=== PATIENT | female | born 1945 | race Caucasian/White ===

== ENCOUNTER 2023-03-21 17:52 | Emergency (ER) | payer MEDICARE, OTHER, SELFPAY ==
[2023-03-21 17:53] VITALS: BP 203/77; PULSE 97; RESP 18; TEMP 36.5; O2SAT 98; BMI 21.8
[2023-03-21 19:24] VITALS: BP 175/64; PULSE 73; RESP 15; O2SAT 98
[2023-03-21] MEDS: cloNIDine HCl 0.1 MG Tablet PO (19:59)
[2023-03-21 20:00] VITALS: BP 202/68; PULSE 85; RESP 15; O2SAT 98
[2023-03-21 20:41] VITALS: BP 191/70; PULSE 73; RESP 15; O2SAT 97
--- NOTE | 2023-03-21 21:39 | EX.ED.DYSGE1 ---
HPI History of Present Illness Chief Complaint: Hypertension Narrative Narrative: 77-year-old female with elevated blood pressure. She states that she noted this incidentally. She does not have a headache, blurred vision, slurred speech. She denies chest pain, palpitations, shortness of breath. She states that she feels well. Patient takes amlodipine 10 mg p.o. daily, hydrochlorothiazide 12.5 mg daily, lisinopril 40 mg daily. There is been no changes. She called the nurses line for her primary care physician who told her to double the hydrochlorothiazide to 25 mg. Patient was post to wait an hour and if her pressure did not get an any improvement she is to come to the ER. [facility] Medical History HTN (hypertension) Home Medications amlodipine 10 mg tablet 10 mg PO DAILY 03/21/23 [History Last Taken Unknown] hydrochlorothiazide 12.5 mg capsule 12.5 mg PO DAILY 03/21/23 [History Last Taken Unknown] lisinopril 40 mg tablet 40 mg PO DAILY 03/21/23 [History Last Taken Unknown] lisinopril 40 mg tablet 80 mg PO DAILY #30 tabs 03/21/23 [Rx Last Taken Unknown] Allergy/AdvReac Type Severity Reaction Status Date / Time No Known Allergies Allergy Verified 03/21/23 17:55 Social History Smoking Status: Never smoker [facility] ED Constitutional Constitutional ED: Denies chills, fever(s) or sweats Eyes Eyes: Denies blurry vision or change in vision ENT ENT ED: Denies ear pain or sore throat Cardiovascular Cardiovascular: Denies chest pain, palpitations or racing heartbeat Respiratory/Chest Respiratory/Chest: Denies cough, dyspnea or sputum Gastrointestinal Gastrointestinal: Denies abdominal pain, constipation, diarrhea, nausea or vomiting Genitourinary Genitourinary ED: Denies dysuria, hematuria or urinary frequency Musculoskeletal Musculoskeletal: Denies arthralgias, myalgias or neck pain Integumentary Denies abscess, Abrasions or rash Neurologic Neurologic: Denies headache(s), paresthesias or weakness Psychiatric Psychiatric: Denies anxiety, depression, suicidal ideation or suicidal thoughts Endocrine Endocrinology: Denies polydipsia or polyuria EXAM Physical Exam Const Vital Signs: 03/21/23 17:53 03/21/23 19:24 03/21/23 20:00 Temperature 97.7 F L Temperature Source Temporal Pulse Rate 97 73 85 Respiratory Rate 18 15 15 Blood Pressure 203/77 H 175/64 H 202/68 H Blood Pressure Mean 119 101 112 Pulse Ox 98 98 98 Oxygen Delivery Method Room Air Room Air Room Air 03/21/23 20:41 Temperature Temperature Source Pulse Rate 73 Respiratory Rate 15 Blood Pressure 191/70 H Blood Pressure Mean 110 Pulse Ox 97 Oxygen Delivery Method Room Air General Appearance ED: Negative for pallor HEENT Reports normocephalic and head/scalp atraumatic Eyes PERRL and EOMs intact bilaterally Neck no lymphadenopathy and supple Chest Wall inspection of chest normal and palpation of chest normal Resp normal respiratory effort Auscultation: Negative for rales, rhonchi or wheezes Cardio regular rate and regular rhythm Narrative: Deferred Extremity normal to inspection General Extremety ED: Negative for edema or tenderness General Extremity: Negative for edema Neuro oriented x3 and CN's II-XII intact bilaterally Sensorium / Orientation: alert Motor Exam: strength 5/5 throughout Psych mental status grossly normal Attitude: No agitated Skin no rashes or lesions noted and no wounds General Skin Exam: Negative for jaundice or pallor MDM MDM MDM Narrative Medical decision making narrative: Patient presenting with asymptomatic hypertension. She was given clonidine 0.1 mg. Her blood pressure went from 203/77 down to 161/65. At this point I feel she stable to go. I believe she needs any blood work or imaging but she is still asymptomatic. I will have her double her lisinopril. She is to keep a diary of her blood pressures. Follow-up with her PCP. Return precautions discussed. Impression: 1. Hypertension Discharge Plan Triage Chief Complaint: Hypertension ED Provider: Rashaad Benites Dx/Rx/DC Orders Instructions: ED Hypertension, Established Prescriptions: New lisinopril 40 mg tablet 80 mg PO DAILY Qty: 30 0RF No Action amlodipine 10 mg Tablet 10 mg PO DAILY hydrochlorothiazide 12.5 mg Capsule 12.5 mg PO DAILY lisinopril 40 mg Tablet 40 mg PO DAILY Primary Care Provider: Loyd Luque Referrals: Loyd Luque MD [Primary Care Provider] - Disposition Disposition: Home, Self Care
[2023-03-21 21:42] VITALS: BP 161/65; PULSE 72; RESP 15; O2SAT 96
[2023-03-21 21:46] VITALS: BP 161/65; PULSE 72; RESP 15
== END 2023-03-21 21:46 | disposition home or self-care (01) ==
PROVIDERS: Emergency Provider Student in an Organized Health Care Education/Training Program; PCP Family Medicine; Visit Provider Student in an Organized Health Care Education/Training Program
DX: I10 Essential (primary) hypertension (principal); Z79.899 Other long term (current) drug therapy
CPT/HCPCS: 99283

== ENCOUNTER → 2024-05-20 | Outpatient (CLI) | payer MEDICARE, OTHER, SELFPAY ==
--- NOTE | 2024-05-20 07:41 | RDU_ITS ---
Reason For Study: HTN Right Renal Artery Left Renal Artery Right renal artery ostium Left renal artery ostium 160.0/18.4 567.5/111.7 RSV/EDV. PSV/EDV. Right renal artery proximal Left renal artery proximal PSV/EDV 605.8/95.8 PSV/EDV. 128.4/24.5 . Right renal artery mid 81.8/13.6 Left renal artery mid 128.4/20.8 PSV/EDV. PSV/EDV . Right renal artery distal Left renal artery distal 119.5/18.6 156.7/18.4 PSV/EDV. PSV/EDV. Right RAR 7.14. Left RAR 1.90. Right Renal Parenchyma Left Renal Parenchyma Upper Pole Medula 20.3/3.8 PSV/EDV. Left upper pole medulla 69.5/12.8 Right upper pole medulla EDR 0.20 . PSV/EDV . Right upper pole medulla R.I. Left upper pole medulla EDR 0.20 . 0.82 . Left upper pole medulla R.I. 0.82 . Upper [place] Cortx 14.2/3.8 PSV/EDV. UP Cortex 30.0/5.5 PSV/EDV. Right upper pole cortex EDR 0.30 . Left upper pole cortex EDR 0.20 . Right upper pole cortex R.I. 0.74 . Left upper pole cortex R.I. 0.82 . Right lower Pole medulla 33.3/4.7 Left lower Pole medulla 42.3/8.5 PSV/EDV . PSV/EDV . Right lower pole medulla EDR 0.10 . Left lower pole medulla EDR 0.20 . Right lower pole medulla R.I. Left lower pole medulla R.I. 0.80 . 0.86 . Lower Pole Cortx 18.4/4.2 PSV/EDV. Lower Pole Cortex 18.5/5.8 PSV/EDV. Left lower pole cortex EDR 0.20 . Right lower pole cortex EDR 0.30 . Left lower pole cortex R.I. 0.77 . Right lower pole cortex R.I. 0.68 . Left Renal Hilar Right Renal Hilar LT Hilar avg 127.3/17.4 PSV/EDV . Right Hilar avg 64.4/9.5 PSV/EDV. Left hilar acceleration time 40 Right hilar acceleration time 40 m/sec. m/sec. Left Renal Dimensions Right Renal Dimensions Left kidney size 9.50 cm . Right kidney size 8.14 cm . Left cortical dimension 1.3 cm . Right cortical dimension 1.29 cm . Aorta Proximal abdominal aorta 1.42 cm . Proximal abdominal aorta peak systolic velocity is 84.8 cm/sec . Distal abdominal aorta 1.12 cm . Distal abdominal aorta peak systolic velocity is 288.5 cm/sec . VL/Renal Artery Duplex Ultrasound Interpretation Summary Right renal artery patent with > 60% stenosis. Left renal artery patent with normal velocities and no evidence of stenosis. Right renal vein patent. Left renal vein patent. Right kidney diminshed in size. Left kidney normal in size. Ordering Physician: Nora Govea Referring Physician: Nora Govea Performed By: Jasson Stephenson RVT and Student
== END | disposition home or self-care (01) ==
LOC: CVS 07:38
PROVIDERS: PCP Family Medicine; Referring Provider Internal Medicine Nephrology; Visit Provider Internal Medicine Nephrology
DX: I10 Essential (primary) hypertension (principal)
CPT/HCPCS: 93975

== ENCOUNTER 2024-10-07 06:57 | Day surgery (SDC) | payer MEDICARE, OTHER, SELFPAY ==
[2024-10-06 07:49] VITALS: BMI 21.6
[2024-10-07 07:19] LABS: Hematocrit 35.6 % (37-47); Hemoglobin 11.8 g/dL (12.0-15.0); Mean Corp Hgb Conc 33.1 g/dL (32-36); Mean Corpuscular Hgb 29.7 pg (27.0-32.0); Mean Corpuscular Volume 89.7 fL (81-99); Platelet Count 273 K/mm3 (150-450); RBC Distribution Width CV 14.5 % (11.6-14.6); RBC Distribution Width SD 47.9 fl (35.1-43.9); Red Blood Count 3.97 M/mm3 (4.2-5.4); White Blood Count 11.5 K/mm3 (4.4-11.0)
--- NOTE | 2024-10-07 07:53 | HP.PCM_ITS ---
HPI - General HPI Narrative ALVARADO COHEN, is a 79 F who presents with worsening hypertension on multiple medications. She had a duplex that revealed right renal artery stenosis. [facility] Medical History Renal artery stenosis HTN (hypertension) Home Medications ?Medication ?Instructions ?Recorded ?Last Taken ?Type amlodipine 10 mg tablet 10 mg PO DAILY 03/21/23 10/07/24 History calcium carbonate (Calcium 600) 1,200 mg PO QDAY 08/27/24 Unknown History chlorthalidone 25 mg tablet 25 mg PO QDAY 08/27/24 Unknown History metoprolol succinate 50 mg 50 mg PO BID 08/27/24 10/07/24 History tablet,extended release 24 hr multivitamin (Daily Multi-Vitamin 1 tab PO QAM 08/27/24 Unknown History tablet) hydralazine 25 mg tablet 25 mg PO BID high blood pressure 10/06/24 Unknown History lisinopril 30 mg tablet 30 mg PO BID High blood pressure 10/06/24 10/07/24 History Allergy/AdvReac Type Severity Reaction Status Date / Time No Known Allergies Allergy Verified 08/27/24 13:16 Family History Other Asthma Cancer Hypertension Surgical History H/O cone biopsy of cervix (~1977) Social History Smoking Status: Heavy Smoker (>10/day) Tobacco: How many years used: 40 quit status: considering quitting ROS Constitutional Constitutional: Denies chills, fever(s), frequent falls, lethargy or weakness Eyes Eyes: Denies blind spots, change in vision or loss of vision ENT HEENT: Denies bleeding gums, hoarseness or sore throat Cardiovascular Cardiovascular: Denies abdominal pain, bluish discoloration of hand/feet, chest pain with activity, claudication, cold extremities, cyanosis, dyspnea on exertion, erythema on extremities, irregular heart rhythm, leg edema, leg ulcers, numbness in extremities or weakness in extremities Respiratory/Chest Respiratory/Chest: Denies cough, excessive phlegm production, shortness of breath at rest, shortness of breath with exertion or wheezing Gastrointestinal Gastrointestinal: Denies anorexia, change in stool character, constipation, diarrhea, melena or rectal bleeding Genitourinary Genitourinary: Denies dysuria or hematuria Musculoskeletal Musculoskeletal: Denies abnormal gait Integumentary Integumentary: Reports other Details: ; Denies erythema, non-healing lesions or wounds Neurologic Neurologic: Denies abnormal speech, focal weakness, headache(s), loss of vision, numbness, paresthesias or sensory deficit Hematologic/Lymphatic Hematologic/Lymphatic: Denies easy bleeding, easy bruising or lymphadenopathy Vital Signs Vital Signs Vital Signs: Weight Weight: 122 lb Body Mass Index (BMI) 21.6 Physical Exam Const alert, oriented x3, no apparent distress and healthy appearing General Appearance: cooperative; Negative for combative or lethargic Orientation / Consciousness: awake Exam Limitations: no limitations HEENT Head and Scalp: normocephalic and atraumatic Eyes EOMs intact bilaterally General Eye: normal appearance of both eyes Neck full ROM and no lymphadenopathy Resp normal respiratory effort and no use of accessory muscles Effort and Inspection: Negative for labored, stridor or audible wheezes Cardio regular rate and regular rhythm Back/Spine Cervical Spine: cervical ROM normal Extremity full ROM, normal capillary refill and no clubbing, cyanosis or edema Skin no rashes or lesions noted and no wounds Neuro oriented x3, CN's II-XII intact bilaterally, no focal motor deficits and no sensory deficits noted Psych thought process normal, cooperative, affect normal, speech normal and activity/motor behavior normal Results Lab / Micro Data 10/07/24 07:06 10/07/24 07:06 Labs: Laboratory Results - last 24 hr 10/07/24 07:06: WBC 11.5 H, RBC 3.97 L, Hgb 11.8 L, Hct 35.6 L, MCV 89.7, MCH 29.7, MCHC 33.1, RDW Std Deviation 47.9 H, RDW Coeff of Cathleen 14.5, Plt Count 273, MPV 9.0 Assessment & Plan Assessment/Plan (1) Renal artery stenosis: PLAN: -angiogram possible stent
[2024-10-07 07:54] LABS: Anion Gap 5 (5-15); BUN 27 mg/dL (7-18); BUN/Creat Ratio 23.9 RATIO (10-20); Calcium,Total 9.3 mg/dL (8.5-10.1); Chloride 106 mmol/L (98-107); Creatinine, Serum 1.13 mg/dL (0.55-1.02); EST Glomerular Filtration Rate 50 mL/min (>60); Est Glom Filt Rate - Afr Amer 60 mL/min (>60); Estimated Creatinine Clearance 33.94 ml/min; Glucose 104 mg/dL (74-106); Potassium 4.2 mmol/L (3.5-5.1); Sodium Level 136 mmol/L (136-145)
[2024-10-07 13:12] LABS: ACT Activated Clotting Time 204 sec (74-137)
--- NOTE | 2024-10-07 16:31 | OP.PCM_ITS ---
Operative Report (Standard) Operative Information Surgery/Procedure Performed: Aortogram, selective left renal angiogram Surgeon: Porfirio Mei Date of Procedure: 10/07/24 Procedure Start Time: 08:15 Procedure Stop Time: 10:15 Pre-Operative Diagnosis: Refractory hypertension Right renal artery stenosis Post-Operative Diagnosis: Same Right pelvic kidney with dual arterial supply; greater than 70% stenosis of the superior vessel Select all DRAINS/GRAFTS/IMPLANTS that apply: None Type of Anesthesia: Local and Sedation,Conscious Estimated Blood Loss: 15 Specimen collected: No Description of surgery: HPI: Patient is a 79-year-old female with hypertension refractory to multiple medications with increasing medication and dose requirements. She had a arterial duplex which revealed greater than 60% stenosis of the right renal artery. She presents now for angiography with possible intervention. Description of procedure: Upon obtaining form consent and verification correct patient procedure site patient was taken to the Entry Level Drafter where she was positioned prepped and draped in usual sterile fashion. Timeout was performed consultation administered Versed and fentanyl. Skin overlying the right common femoral artery was anesthetized 1% lidocaine the vessel accessed under ultrasound guidance with a micropuncture needle wire. This was then exchanged for micropuncture sheath routine injection iliofemoral angiograms performed feeling satisfactory positioning with no extravasation or dissection. Through the micropuncture sheath a Bentson wire was advanced and the micropuncture sheath exchanged for a short 5 Wallisian sheath. Through the 5 Wallisian sheath we attempted to navigate into the abdominal aorta however he met resistance in the mid common iliac artery. Hand-injection angiography revealed highly calcified stenosis of the mid common iliac artery. A KMP catheter was advanced over the Bentson wire and the Bentson wire exchanged for a glide advantage wire which was able to successfully navigate the iliac lesion and into the abdominal aorta. There appeared to be significant calcification in the visceral segment aorta which also produced significant obstruction to wire advancement. The KMP catheter was then exchanged for an Omni Flush catheter which was advanced into the abdominal aorta and a digital subtraction aortogram was performed. This revealed bulky dense calcification of the suprarenal aorta creating approxima tely 75% stenosis as well as dense calcified atherosclerosis surrounding the origin of the right renal arteries with significant plaque protrusion into the aortic lumen. This also revealed the right kidney was located in the pelvis with a significant downward angle and revealed a dual arterial supply with the majority of the kidney supplied by the more inferior vessel which had no significant atherosclerosis. The superior aspect of the kidney was supplied by the superior vessel which had the significant atherosclerosis at its origin. Contrast transit through this vessel was significantly delayed compared to the more inferior vessel and it appeared as if this portion of the kidney was smaller in overall volume than that fed by the inferior vessel. The Omni Flush catheter also advanced into the left renal artery and selective imaging revealed mild stenosis at the origin less than 50%. Given the downward trajectory of the right renal artery was felt that femoral access would not be feasible to track or intervention efforts even if able to cannulate so the left radial artery was accessed with a micropuncture needle wire which was then exchanged for a slender sheath. Patient was then heparinized to circulate 3 minutes after which the glide advantage wire was advanced via the left radial access traversing into the arch of the aorta. From this position using a pigtail catheter and the glide advantage wire we would navigate into the descending thoracic aorta advancing our wire and catheter down to the visceral segment. 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 This was focused mainly on the right side of aorta and deflected our equipment towards the left making approach to the right renal artery even more difficult. It was felt that this was at least with an effort so the pigtail catheter and short sheath were then exchanged for a 6 Wallisian Halo sheath which was advanced over the wire and positioned in the visceral segment of the aorta. Using a multitude of wire and catheter combinations we made efforts to engage and cannulate the right renal artery ostia. Due to the significant calcification and protrusion into the aortic lumen we were unable to successfully cannulate this vessel. After exhausting her efforts and further efforts from the femoral access we felt that any more aggressive attempts would potentially result in vessel injury so efforts were ceased. A 5 Wallisian minx was then deployed and manual pressure held for 5 minutes at the right femoral access site. A TR band was then placed at the left radial access site and the sheath withdrawn. The patient taken recovery area for bedrest prior to discharge to home. Surgical Findings: See above Coordinator Of Placement telecommunications switch technician: No Complications Complications: No
== END 2024-10-07 13:00 | disposition home or self-care (01) ==
PROVIDERS: Physician Assistant; PCP Family Medicine; Referring Provider Surgery Trauma Surgery; Visit Provider Surgery Trauma Surgery
DX: I70.1 Atherosclerosis of renal artery (principal); I10 Essential (primary) hypertension; F17.210 Nicotine dependence, cigarettes, uncomplicated
CPT/HCPCS: 36251; 36415; 76937; 80048; 85027; 85347; 86850; 86900; 86901; 99152; 99153; C1760; C1769; C1894; Q9967; C1887

== ENCOUNTER 2025-05-29 12:48 | Inpatient (IN) | payer MEDICARE, OTHER, SELFPAY ==
[2025-05-29] VITALS (17 sets, daily range): BP systolic 169–203; BP diastolic 54–76; PULSE 64–75; RESP 12–22; TEMP 36.1–36.6; O2SAT 95–99; BMI 21.7; BMI 22.0
--- NOTE | 2025-05-29 12:59 | EDS_ITS ---
HPI History of Present Illness Chief Complaint: General Illness [facility] Medical History Renal artery stenosis HTN (hypertension) Home Medications ?Medication ?Instructions ?Recorded ?Last Taken ?Type amlodipine 10 mg tablet 10 mg PO DAILY 03/21/23 07/04/28 History chlorthalidone 25 mg tablet 25 mg PO QDAY 08/27/24 History metoprolol succinate 50 mg 50 mg PO BID 08/27/2405/29 History tablet,extended release 24 hr hydralazine 25 mg tablet 25 mg PO BID high blood pres sure 10/06/24 05/29/25 History lisinopril 30 mg tablet 30 mg PO BID High blood pres sure 10/06/24 05/29/25 History Allergy/AdvReac Type Severity Reaction Status Date / Time codeine Allergy PT UNSURE Verified 05/29/25 12:50 OF REACTION Sulfa (Sulfonamide Allergy Rash Verified 05/29/25 12:50 Antibiotics) (sulfa drugs) Family History Other Asthma Cancer Hypertension Surgical History H/O cone biopsy of cervix (~1977) Social History Smoking Status: Light Smoker (<10/day) Tobacco: How many years used: 40 quit status: considering quitting EXAM Physical Exam Const Vital Signs: 05/29/25 12:48 05/29/25 14:01 05/29/25 14:04 Temperature 97.8 F Temperature Source Oral Pulse Rate 68 65 Respiratory Rate 18 Respiratory Effort Normal Non-Labored Blood Pressure 185/54 H 197/56 H Blood Pressure Mean 97 103 Pulse Ox 96 99 Oxygen Delivery Method Room Air Room Air 05/29/25 14:13 05/29/25 15:33 05/29/25 16:00 Temperature 97.8 F Temperature Source Pulse Rate 64 70 68 Respiratory Rate 13 17 13 Respiratory Effort Blood Pressure 169/54 H 186/63 H 198/61 H Blood Pressure Mean 92 104 106 Pulse Ox 97 97 97 Oxygen Delivery Method Room Air Room Air MDM MDM MDM Narrative Medical decision making narrative: HISTORY OF PRESENT ILLNESS: Chief complaint: 79year-old female history of hypertension, renal artery stenosis presents with shortness of breath associated with swelling, dizziness and weakness. Notes this began 4 days ago. Endorses history of renal artery stenosis. Denies headache but notes occasional dizziness specifically with standing. Notes compliance with home antihypertensives. Denies any falls or trauma. She denies any chest pain but notes some shortness of breath specifically with exertion. While swelling was endorsed in the triage note the patient denies lower extremity edema. Denies cough fever or chills. The patient denies recent surgery in the last 4 weeks or immobilization in the last 3 days, denies previous diagnosis of DVT or PE, hemoptysis, unilateral leg swelling or malignancy with treatment the last 6 months or palliative. No estrogen use noted. Denies any bleeding diathesis REVIEW OF SYSTEMS: Pertinent positives: Shortness of breath, dizziness and weakness Pertinent negatives: Syncope, headache PHYSICAL EXAM: Nursing triage notes reviewed, Vital signs reviewed Constitutional: please see mdm HENT: MMM Eyes: Pupils equal round and reactive to light, Extraocular muscles intact Neck: No stridor, no JVD, full neck ROM Lungs: Clear to auscultation, No wheezing or rales. No increased work of breathing, no conversational dyspnea, no accessory muscle use, no nasal flaring. No respiratory distress noted Heart: Regular rate and rhythm, No murmurs, No rubs and No gallops, 2+ distal pulses (radial, femoral, posterior tibial) in all extremities Abdomen: Soft, there is no tenderness, rigidity, rebound or guarding, no obvious peritoneal signs, no palpable pulsatile abdominal masses, no auscultated abdominal bruit : No CVAT Extremities: No edema Neuro: Alert and oriented x3, neuro exam at baseline, cranial nerves II through XII are intact. No pain with extraocular muscle movement. There is negative test of skew. 5 of 5 strength in upper and lower extremities in flexion extension. Intact sensation to light touch in upper and lower extremity dermatomes. No truncal or extremity ataxia. No dysdiadochokinesia. Normal gait. 2+ reflexes in upper and lower extremities. No meningeal signs. Negative Babinski. NIH of 0. Skin: No rash or lesions noted MEDICAL DECISION MAKING: Chief Complaint: please see HPI External records reviewed: Reviewed prior vascular surgery operation. Reviewed prior cardiovascular testing. No recent echocardiograms noted in [facility] Factors affecting care: As per HPI Social determinants of health: none History obtained from others: Consults: internal medicine (Dr. Burns) [facility] Narrative: The patient was initially hypertensive with a blood pressure 185/54 otherwise afebrile and nontoxic-appearing. Exam without focal I considered the following differential diagnosis: ICH, anemia, elec electrolyte disturbance, endorgan damage from elevated blood pressure, ACS, CHF exacerbation I obtained a broad lab and imaging workup to further determine if the patient was suffering from a life-threatening etiology. Initially treat the patient with IV labetalol to lower blood pressure. ALL IMAGES (IF OBTAINED) HAVE BEEN PERSONALLY REVIEWED AND INTERPRETED BY MYSELF. CBC with no leukocytosis, noted mild anemia but no thrombocytopenia noted BMP with hyponatremia, no hypokalemia, no anion gap, no metabolic acidosis Mild FTs High-sensitivity troponin is negative, no evidence of myocardial ischemiax3 Initial BNP elevated consistent with volume overload Urinalysis shows no evidence of urinary inflammation suggestive of UTI The synthesis of the patient's history, physical exam, labs images suggest severe electrolyte abnormalities as the precipitating cause. Repeat neurologic remained intact. No sign of seizure at this time. Given profound hyponatremia will admit the patient to ICU. Discussed with Dr. Burns. The patient and/or family, caregivers express understanding. The patient and/or family, caregivers agrees with the plan. Shared decision making: I will have a discussion with the patient and or visitors regarding risk/benefits of further testing or admission. They will be made aware of of the risk/benefits inherent in this decision they will be given the opportunity to voice understanding. Total critical care time today provided was at least 60 minutes. This excludes separately billable procedures. Critical care time (if documented) is secondary to the patient having high probability of clinically significant/life threatening deterioration in the patient's condition which required my urgent intervention. Impression: 1. Hyponatremia 2. Diffuse weakness 3. Poorly controlled hypertension Dispo: Admit to ICU This note was generated with [employer] dictation software. It may contain incorrect words, spelling, and punctuation that were not noted in review of the chart prior to signing. Lab Data Labs: Laboratory Results - last 24 hr 05/29/25 05/29/25 05/29/25 13:25 14:00 14:39 WBC 8.6 RBC 3.46 L Hgb 10.2 L Hct 27.1 L MCV 78.3 L MCH 29.5 MCHC 37.6 H RDW Std Deviation 37.3 RDW Coeff of Cathleen 13.2 Plt Count 257 MPV 9.3 Sodium 106 L* 107 L* Potassium 3.5 3.3 Chloride 73 L* 72 L* Carbon Dioxide 21.6 21.3 Anion Gap 12 14 BUN 21 H 22 H Creatinine 1.06 1.04 Estim Creat Clear Calc 36.18 L 36.88 L Est GFR (MDRD) Non-Af 54 L 55 L BUN/Creatinine Ratio 20.2 H 21.1 H Glucose 121 H 113 H Serum Osmolality Calcium 8.7 8.4 Total Bilirubin 0.44 AST 21 ALT 23 Alkaline Phosphatase 76 Troponin T High Sens 20 H Troponin T Hi Sens 2 Hr NT pro BNP II 5274 H Total Protein 6.2 Albumin 3.9 Globulin 2.3 Albumin/Globulin Ratio 1.7 Triglycerides Cholesterol LDL Cholesterol, Calc VLDL Cholesterol HDL Cholesterol Cholesterol/HDL Ratio TSH Cortisol PM Sample Urine Color Yellow Urine Clarity Sl. Cloudy Urine pH 7.0 Ur Specific [place] 1.010 Urine Protein 15 H Urine Glucose (UA) Normal Urine Ketones 5 H Urine Occult Blood Negative Urine Nitrite Negative Urine Bilirubin Negative Urine Urobilinogen Normal Ur Leukocyte Esterase 500 H Urine RBC 0 SEEN Urine WBC 0-5 SEEN Ur Squamous Epith Cells 0-5 SEEN Urine Bacteria 0 SEEN Urine Mucus 0 SEEN Urine Osmolality 371 Ur Random Sodium 84 Urine Creatinine 43.90 Urine Potassium 36.9 Urine Chloride 80 Urine Urea Nitrogen 358 05/29/25 05/29/25 15:18 15:50 WBC RBC Hgb Hct MCV MCH MCHC RDW Std Deviation RDW Coeff of Cathleen Plt Count MPV Sodium Potassium Chloride Carbon Dioxide Anion Gap BUN Creatinine Estim Creat Clear Calc Est GFR (MDRD) Non-Af BUN/Creatinine Ratio Glucose Serum Osmolality 236 L Calcium Total Bilirubin AST ALT Alkaline Phosphatase Troponin T High Sens Troponin T Hi Sens 2 Hr 17 H NT pro BNP II Total Protein Albumin Globulin Albumin/Globulin Ratio Triglycerides 96 Cholesterol 170 LDL Cholesterol, Calc 82 VLDL Cholesterol 19 HDL Cholesterol 68 Cholesterol/HDL Ratio 2.49 TSH 0.701 Cortisol PM Sample 18.30 H Urine Color Urine Clarity Urine pH Ur Specific [place] Urine Protein Urine Glucose (UA) Urine Ketones Urine Occult Blood Urine Nitrite Urine Bilirubin Urine Urobilinogen Ur Leukocyte Esterase Urine RBC Urine WBC Ur Squamous Epith Cells Urine Bacteria Urine Mucus Urine Osmolality Ur Random Sodium Urine Creatinine Urine Potassium Urine Chloride Urine Urea Nitrogen Radiography Diagnostic Testing: Clinical Impression(s) from Imaging Studies Brain CT 05/29/25 13:18 IMPRESSION: 1. Generalized brain atrophy. 2. Small vessel ischemic/degenerative changes. 3. No acute intracranial hemorrhage, midline shift or mass effect. If symptoms persist, further evaluation with MRI is recommended. Reading Location: [facility] [place] Chest X-Ray 05/29/25 13:30 IMPRESSION: Left basilar atelectasis or pneumonia. Reading Location: [facility] Discharge Plan Disposition Disposition: Acute Care Hospital [facility] Discharge Date/Time: 05/29/25 16:40
--- NOTE | 2025-05-29 13:18 | CT_ITS ---
EXAM: CT Head Without Intravenous Contrast CLINICAL INDICATION: DIZZINESS TECHNIQUE: Axial computed tomography images of the head/brain without intravenous contrast. This CT exam was performed using one or more of the following dose reduction techniques: automated exposure control, adjustment of the mA and/or kV according to patient size, and/or use of iterative reconstruction technique. COMPARISON: No relevant prior studies available. FINDINGS: BRAIN AND EXTRA-AXIAL SPACES: The cerebral and cerebellar sulci are prominent consistent with brain atrophy. Areas of decreased attenuation in the deep cerebral white matter are consistent with small vessel ischemic/degenerative changes. No acute intracranial hemorrhage, midline shift or mass effect. If symptoms persist, further evaluation with MRI is recommended. BONES/JOINTS: Unremarkable. No acute fracture. SOFT TISSUES: Unremarkable. SINUSES: Unremarkable as visualized. No acute sinusitis. MASTOID AIR CELLS: Unremarkable as visualized. No mastoid effusion. CT/Brain/Head without Contrast IMPRESSION: 1. Generalized brain atrophy. 2. Small vessel ischemic/degenerative changes. 3. No acute intracranial hemorrhage, midline shift or mass effect. If symptoms persist, further evaluation with MRI is recommended. Reading Location: [id number]
--- NOTE | 2025-05-29 13:18 | EKG12_ITS ---
Test Reason : HTN Blood Pressure : */* mmHG Vent. Rate : 65 BPM Atrial Rate : 65 BPM P-R Int : 116 ms QRS Dur : 88 ms QT Int : 430 ms P-R-T Axes : 88 85 66 degrees QTcB Int : 447 ms Normal sinus rhythm Septal infarct , age undetermined Abnormal ECG Confirmed by AMINTA RUELAS, CHEY ([id number]), greeting card editor TORRI BOONE ([id number]) on 05/31/2025 7:31:47 AM Referred By: Confirmed By: CHEY LEMOS MD
--- OUTSIDE RECORDS SUMMARY | 2025-05-29 13:23 | XMS RPT_ITS | CCD ---
Author Organization [facility] Care Team Providers Care Entertainment & Media Correspondent Name Role Phone Meena MACHINIST CLASS B.CORPORATE TRAVEL EXPERT, DNP, [place] Primary Care Provider Glenny Luque MD Primary Care Provider Glenny Luque MD Primary Care Provider Glenny Luque MD Primary Care Provider Jeferson Nora Referring Unavailable Hamida, Porfirio Attending Unavailable Elderbrock, Glenny Primary Care Unavailable Jeferson, Nora Referring Unavailable Jeferson, Nora Attending Unavailable Elderbrock, Glenny Primary Care Unavailable Ordonez, Carissa Attending Unavailable Elderbrock, Glenny Primary Care Unavailable Elderbrock, Glenny Referring Unavailable Elderbrock, Glenny Primary Care Unavailable Hamida, Porfirio Attending Unavailable Elderbrock, Glenny Referring Unavailable Delphia, Porfirio Attending Unavailable Elderbrock, Glenny Primary Care Unavailable Ordonez, Carissa Consulting Unavailable Hamida, Porfirio Referring Unavailable Hamida, Porfirio Consulting Unavailable Delphia, Porfirio Attending Unavailable Elderbrock, Glenny Primary Care Unavailable Ordonez, Carissa Consulting Unavailable Hamida, Porfirio Referring Unavailable Tannhof MACHINIST CLASS B.Laurel JORDAN Unavailable Mahendra MACHINIST CLASS B.Hans JORDAN Unavailable Tannhof MACHINIST CLASS B.Laurel JORDAN Unavailable ELDERGLENNY CHAVIRA Primary Care Unavailable ELDERBROCK, GLENNY D Primary Care Unavailable ELDERBROCK, GLENNY D Referring Unavailable ELDERBROCK, GLENNY D Primary Care Unavailable ELDERBROCKGLENNY D Attending Unavailable ELDERBROCK, GLENNY D Referring Unavailable ELDERBROCK, GLENNY D Referring Unavailable ELDERBROCK, GLENNY D Primary Care Unavailable ELDERBROCK, GLENNY D Primary Care Unavailable ELDERBROCK, GLENNY D Primary Care Unavailable ELDERBROCK, GLENNY D Referring Unavailable ELDERBROCK, GLENNY D Primary Care Unavailable NORA GOVEA Referring Unavailable GLENNY LUQUE Primary Care Unavailable GLENNY LUQUE Attending Unavailable Allergies Allergy Classification Reported Allergen(s) Allergy Type Date of Onset Reaction(s) Facility (20 sources) Codeine; Translations: [CODEINE] Drug Allergy 5 [facility] Work Phone: (20 sources) Spironolactone; Translations: [SPIRONOLACTONE] Drug Allergy 9 Other: See Comments [facility] (20 sources) Sulfonamides (Antibiotic); Translations: [SULFA (SULFONAMIDE ANTIBIOTICS)] Propensity to adverse reactions 5 [facility] Work Phone: Medications Current Medications Medication Drug Class(es) Dates Sig (Normalized) Sig (Original) alendronic acid 70 mg oral tablet (6 sources) Bisphosphonate Start: 01-04-2025 take 1 tablet by mouth every week in the morning alendronate (FOSAMAX) 70 mg tablet Indications: Osteoporosis, unspecified osteoporosis type, unspecified pathological fracture presence Take 1 tablet by mouth one time a week. In AM with cup of water on empty stomach. Nothing else by mouth and stay upright for 30 min. 12 tablet 3 01/04/2025 Active amLODIPine 10 mg oral tablet (20 sources) Dihydropyridine Calcium Channel Benita Start: 05-23-2022 End: 01-25-2025 take 1 tablet by mouth once daily amLODIPine (NORVASC) 10 mg tablet Indications: Essential hypertension, benign Take 1 tablet by mouth once daily. 90 tablet 3 01/25/2025 Active Comment on above: TAKE 1 TABLET BY LORI TH ONCE DAILY Take 1 tablet by lori th once daily. aspirin 325 mg oral tablet (20 sources) Platelet Aggregation Inhibitor, Nonsteroidal Anti-inflammatory Drug aspirin 325 mg tablet Take 325 mg by mouth as needed. Active Comment on above: Take 325 mg by mouth as needed. calcium carbonate 600 mg / cholecalciferol 125 unt oral tablet (20 sources) Vitamin D Start: 01-16-2007 CALCIUM 600 + D 600 MG-125 UNIT TAB Take one(1) tablet twice daily. 0 01/16/2007 Active Comment on above: Take one(1) tablet t wice daily. chlorthalidone 25 mg oral tablet (20 sources) Thiazide-like Diuretic Start: 02-17-2024 End: 01-04-2025 take 1 tablet by mouth once daily chlorthalidone (HYGROTON) 25 mg tablet Indications: Essential hypertension, benign Take 1 tablet by mouth once daily. 90 tablet 3 01/04/2025 Active Comment on above: Take 1 tablet by lori th once daily. hydrALAZINE hydrochloride 25 mg oral tablet (20 sources) Arteriolar Vasodilator Start: 03-22-2025 hydrALAZINE (APRESOLINE) 25 mg tablet Indications: Uncontrolled hypertension Take 1 tablet by mouth four times daily. Take 1 tablet by mouth three times per day, up to four times per day. 360 tablet 03/22/2025 Active Start: 11-26-2024 End: 03-22-2025 take 1 tablet by mouth three times daily hydrALAZINE (APRESOLINE) 25 mg tablet Indications: Uncontrolled hypertension Take 1 tablet by mouth three times a day. 11/26/2024 03/22/2025 Discontinued Start: 03-20-2024 End: 11-26-2024 take 1 tablet by mouth twice daily hydrALAZINE (APRESOLINE) 25 mg tablet Indications: Essential hypertension, benign , Uncontrolled hypertension Take 1 tablet by mouth two times a day. 180 tablet 1 03/23/2024 11/26/2024 Discontinued Start: 05-08-2023 End: 03-20-2024 take 1 tablet by mouth twice daily hydrALAZINE (APRESOLINE) 10 mg tablet Indications: Uncontrolled hypertension Take 1 tablet by mouth two times a day. 28 tablet 0 03/09/2024 03/20/2024 Discontinued Comment on above: Take 1 tablet by lori th twice daily. TAKE 1 TABLET BY LORI TH TWICE A DAY Take 1 tablet by lori th two times a day. lisinopril 30 mg oral tablet (20 sources) Angiotensin Converting Enzyme Inhibitor Start: 02-17-2024 End: 01-04-2025 take 1 tablet by mouth twice daily lisinopril (ZESTRIL) 30 mg tablet Indications: Essential hypertension, benign Take 1 tablet by mouth two times a day. 180 tablet 3 01/04/2025 Active Start: 05-23-2022 End: 02-17-2024 take 1 tablet by mouth once daily lisinopril (ZESTRIL) 40 mg tablet Indications: Essential hypertension, benign Take 1 tablet by mouth once daily. 90 tablet 3 07/09/2023 02/17/2024 Discontinued Comment on above: TAKE 1 TABLET BY LORI TH ONCE DAILY Take 1 tablet by lori th once daily. Take 1 tablet by lori th two times a day. 24 hr metoprolol succinate 50 mg extended release oral tablet (20 sources) beta-Adrenergic Benita Start: 05-08-2023 End: 03-09-2024 take 1 tablet by mouth twice daily metoprolol succinate ER (TOPROL XL) 50 mg 24 hr tablet Indications: Uncontrolled hypertension Take 1 tablet by mouth two times a day. 180 tablet 3 03/09/2024 Active Start: 04-08-2023 End: 05-08-2023 take 1 tablet by mouth twice daily metoprolol succinate ER (TOPROL XL) 25 mg 24 hr tablet Indications: Essential hypertension, benign Take 1 tablet by mouth twice daily. 60 tablet 3 04/08/2023 05/08/2023 Discontinued Start: 03-25-2023 End: 04-08-2023 take 1 tablet by mouth once daily metoprolol succinate ER (TOPROL XL) 25 mg 24 hr tablet Take 1 tablet by mouth once daily. 30 tablet 5 03/25/2023 04/08/2023 Discontinued Comment on above: Take 1 tablet by lori th twice daily. Take 1 tablet by lori th once daily. take 1 tablet by lori th twice a day tc-fra-itkkj-calciu m carb-K1 (WOMEN'S 50 PLUS MULTIVITAMIN) 400 mcg-500 mg calcium-20 mcg tab (8 sources) Start: 11-26-2024 take 1 tablet by mouth once daily vs-meb-yzjgr-calci um carb-K1 (WOMEN'S 50 PLUS MULTIVITAMIN) 400 mcg-500 mg calcium-20 mcg tab Take 1 tablet by mouth once daily. 11/26/2024 Active Completed/Discontinued Medications Medication Drug Class(es) Dates Sig (Normalized) Sig (Original) ascorbic acid 1000 mg oral tablet (19 sources) Vitamin C Start: 01-16-2007 End: 02-17-2024 VITAMIN C 1,000 MG TAB Take one(1) tablet daily. 0 01/16/2007 02/17/2024 Discontinued (Course of therapy completed) Comment on above: Take one(1) tablet d aily. FISH OIL CAP (19 sources) Start: 01-16-2007 End: 02-17-2024 FISH OIL CAP Take one(1) capsule daily. omega 3 0 01/16/2007 02/17/2024 Discontinued (Course of therapy completed) Start: 01-16-2007 FISH OIL CAP T jeanine one(1) capsule daily. omega 3 0 01/16/2007 Active Comment on above: Take one(1) capsule daily. omega 3 hydroCHLOROthiazide 12.5 mg oral capsule (20 sources) Thiazide Diuretic Start: 2021 End: 2023 take 1 capsule by mouth once daily hydroCHLOROthiazide 12.5 mg capsule Indications: Essential hypertension, benign Take 1 capsule by mouth once daily. 90 capsule 3 07/09/2023 02/17/2024 Discontinued (Course of therapy completed) Comment on above: TAKE 1 CAPSULE BY MO UTH ONCE DAILY Take 1 capsule by mo uth once daily. potassium nitrate 250 mg/ml / silver nitrate 750 mg/ml medicated pad (2 sources) Start: 2023 End: 2023 silver nitrate applicators 1 Applicator stick Start: 07-24-2024 End: 07-24-2024 1 Applicator, TOPICAL, ONCE, 1 dose, On Sat07/24/24 at 1200, - Pharmaceutical Waste: Oxidizer - vitamin b12 0.5 mg oral tablet (19 sources) Vitamin B12 Start: 01-16-2007 End: 02-17-2024 CYANOCOBALAMIN 500 MCG TAB Take one(1) tablet daily. B12 0 01/16/2007 02/17/2024 Discontinued (Course of therapy completed) Comment on above: Take one(1) tablet d aily. B12 Problems Active Problems Problem Classification Problem Date Documented Date Episodic/Chronic Disorders of lipid metabolism (20 sources) Hyperlipidemia; Translations: [Hyperlipidemia, unspecified] Onset: 01-13-2013 03-16-2016 Chronic Essential hypertension (20 sources) Benign essential hypertension; Translations: [Essential (primary) hypertension] Onset: 09-11-2005 08-01-2018 Chronic Fluid and electrolyte disorders (20 sources) Hypokalemia; Translations: [Hypokalemia] Onset: 02-26-2014 Resolved: 04-10-2017 04-10-2017 Episodic Osteoporosis (20 sources) Osteoporosis; Translations: [Age-related osteoporosis without current pathological fracture] Onset: 08-26-2007 04-10-2017 Chronic Other connective tissue disease (1 source) Peripheral muscle fatigue; Translations: [Other symptoms and signs involving the musculoskeletal system] 11-26-2024 Episodic Other injuries and conditions due to external causes (1 source) Open wound; Translations: [Other injury of unspecified body region, initial encounter] 07-24-2024 Episodic Other screening for suspected conditions (not mental disorders or infectious disease) (5 sources) Patient encounter status; Translations: [Encounter for screening mammogram for malignant neoplasm of breast] Episodic Peripheral and visceral atherosclerosis (4 sources) Atherosclerosis of renal artery; Translations: [Intermittent claudication] Onset: 10-30-2024 11-26-2024 Chronic Substance-related disorders (2 sources) Tobacco user; Translations: [Nicotine dependence, unspecified, uncomplicated] 11-26-2024 Chronic Unclassified (1 source) Resistant hypertension; Translations: [Resistant hypertension] Onset: 03-22-2025 Past or Other Problems Problem Classification Problem Date Documented Da te Episodic/Chronic Nutritional deficiencies (20 sources) Vitamin D deficiency; Translations: [Vitamin D deficiency, unspecified] Onset: 09-03-2007 Resolved: 04-10-2017 04-10-2017 Chronic Other circulatory disease (20 sources) Carotid bruit; Translations: [Other specified symptoms and signs involving the circulatory and respiratory systems] Onset: 03-23-2015 03-23-2015 Episodic Residual codes; unclassified (20 sources) Tobacco user; Translations: [Tobacco use] Onset: 10-11-2010 10-11-2010 Episodic Results Test Name Value Interpretation Reference Range Devon Pope 04-22-2025 [facility] Telephone (FAMWS) ALVARADO COHEN ([id number]) 1945 F Date Time Provider Department 04/22/25 [facility] During your visit today, we recorded the following information about you: Tiffanie Ruff MA 04/22/2025 8:56 AM Signed Type of letter/form/fax request - Medical Consultation Form Form received from fax on 1 floor and placed on MD desk (Dr. Luque) for completion. Completed form needs to be faxed to Dr. Irvin Gallo DMD, MD at [phone] [facility]. Route to [place] when form completed for processing Glenny Luque MD 04/27/2025 5:48 PM Signed Form done; she may hold the Fosamax now, and stay off it until healed from the dental surgery. MD Jessica Quinn Amanda, RN 04/28/2025 4:40 PM Addendum Pt called and is notified of providers message and instructions. Pt voices understanding. Faxed medical consultation form to Dr. Irvin Gallo DMD, MD at fax # [phone] [facility]. Shavonne Lopez RN Allergies As of Date: 04/22/2025 Noted Allergy Reaction CODEINE 09/10/2005 SPIRONOLACTONE 07/08/2019 14 - Other: See Comments Comments: lightheadedness SULFA (SULFONAMIDE ANTIBIOTICS) 09/10/2005 Date Reviewed: 03/22/2025 Reviewed by: Leeanne Sterling MA - Fully Assessed Reason for Visit: medical consultation form [Other] Cmt: [facility] Prescriptions as of 04/28/2025 - hydrALAZINE (APRESOLINE) 25 mg tablet Take 1 tablet by mouth four times daily. Take 1 tablet by mouth three times per day, up to four times per day. - amLODIPine (NORVASC) 10 mg tablet Take 1 tablet by mouth once daily. - chlorthalidone (HYGROTON) 25 mg tablet Take 1 tablet by mouth once daily. - lisinopril (ZESTRIL) 30 mg tablet Take 1 tablet by mouth two times a day. - alendronate (FOSAMAX) 70 mg tablet Take 1 tablet by mouth one time a week. In AM with cup of water on empty stomach. Nothing else by mouth and stay upright for 30 min. - nn-ubk-mqdlq-calcium carb-K1 (WOMEN'S 50 PLUS MULTIVITAMIN) 400 mcg-500 mg calcium-20 mcg tab Take 1 tablet by mouth once daily. - metoprolol succinate ER (TOPROL XL) 50 mg 24 hr tablet Take 1 tablet by mouth two times a day. - aspirin 325 mg tablet Take 325 mg by mouth as needed. - CALCIUM 600 + D 600 MG-125 UNIT TAB Take one(1) tablet twice daily. Problem List As Of Date 04/22/2025 Noted Resolved Essential hypertension, benign [I10] 09/11/2005 Osteoporosis [M81.0] 08/26/2007 Vitamin D deficiency [E55.9] 09/03/2007 04/10/2017 Tobacco abuse [Z72.0] 10/11/2010 Hyperlipidemia with target LDL less than 100 [E*01/13/2013 Hypokalemia [E87.6] 02/26/2014 04/10/2017 Right carotid bruit [R09.89] 03/23/2015 Encounter Status:Closed by SHAVONNE LOPEZ on 04/28/25 Normal [facility] Basic metabolic 2000 panelon 04-01-2025 Anion gap [Moles/Vol] 13 mmol/L Normal 8-15 [facility] Comment on above: Order Comment: Speci men Type: BLOOD SPECIMENOrdering Facility: [facility] Address: [address] [place] [address] Performed By: #### 2 4321-2 ####[facility] LABIA [id number] [place] [address] [place] Calcium [Mass/Vol] 9.6 mg/dL Normal 8.5-10.2 [facility] Comment on above: Order Comment: Speci men Type: BLOOD SPECIMENOrdering Facility: [facility] Address: [address] [place] [address] Performed By: #### 2 4321-2 ####[facility] LABIA [id number] [place] [id number] [place] Chloride [Moles/Vol] 96 mmol/L Low 98-107 [facility] Comment on above: Order Comment: Speci men Type: BLOOD SPECIMENOrdering Facility: [facility] Address: [address] [place] [address] Performed By: #### 2 4321-2 ####[facility] LABCLIA [id number] [address] [address] [place] CO2 [Moles/Vol] 22 mmol/L Normal 22-30 [facility] Comment on above: Order Comment: Speci men Type: BLOOD SPECIMENOrdering Facility: [facility] Address: [address] [place] [address] Performed By: #### 2 4321-2 ####[facility] LABCLIA [id number] [email or web address] [place] [address] [place] Creatinine [Mass/Vol] 1.03 mg/dL High 0.58-0.96 [facility] Comment on above: Order Comment: Speci men Type: BLOOD SPECIMENOrdering Facility: [facility] Address: [facility] [place] [address] Performed By: #### 2 4321-2 ####[facility] LABCLIA [id number] [email or web address] [place] [address] [place] Creatinine and Glomerular filtration rate.predicted panel (S/P/Bld) 56 mL/min/1.73m??? Low >=60 [facility] Comment on above: Order Comment: Speci men Type: BLOOD SPECIMENOrdering Facility: [facility] Address: [facility] [place] [address] Result Comment: Madisyn mated Glomerular Filtration Rate (eGFR) is calculated using the 2020 CKD-EPI creatinine equation. This equation utilizes serum creatinine, sex, and age as parameters. The creatinine assay has traceable calibration to isotope dilution-mass spectrometry. Refer to KDIGO guidelines for clinical interpretation. In patients with unstable renal function, e.g. those with acute kidney injury, the eGFR may not accurately reflect actual GFR. Performed By: #### 2 4321-2 ####[facility] LABCLIA [id number] judge.meD [address] [place] [address] [place] Glucose [Mass/Vol] 72 mg/dL Low 74-99 [facility] Comment on above: Order Comment: Alex billy Type: BLOOD SPECIMENOrdering Facility: [facility] Address: [address] [place] [address] Result Comment: The [place] Diabetes Association (ADA) provides guidance for cutoff values for fasting glucose and random glucose. The ADA defines fasting as no caloric intake for at least 8 hours. Fasting plasma glucose results between 100 to 125 mg/dL indicate increased risk for diabetes (prediabetes). Fasting plasma glucose results greater than or equal to 126 mg/dL meet the criteria for diagnosis of diabetes. In the absence of unequivocal hyperglycemia, results should be confirmed by repeat testing. In a patient with classic symptoms of hyperglycemia or hyperglycemic crisis, random plasma glucose results greater than or equal to 200 mg/dL meet the criteria for diagnosis of diabetes. Reference: Standards of Medical Care in Diabetes 2016, [place] Diabetes Association. Diabetes Care. 2016.39(Suppl 1). Performed By: #### 2 4321-2 ####[facility] LABCLIA [id number] [address] [address] [place] Potassium [Moles/Vol] 4.5 mmol/L Normal 3.7-5.1 [facility] Comment on above: Order Comment: Alex billy Type: BLOOD SPECIMENOrdering Facility: [facility] Address: [facility] [place] [address] Performed By: #### 2 4321-2 ####[facility] LABCLIA [id number] [address] [address] [place] Sodium [Moles/Vol] 131 mmol/L Low 136-144 [facility] Comment on above: Order Comment: Alex mariajose Type: BLOOD SPECIMENOrdering Facility: [facility] Address: [facility] [place] [address] Performed By: #### 2 4321-2 ####[facility] LABCLIA [id number] [facility] [address] [address] [place] Urea nitrogen [Mass/Vol] 27 mg/dL High 7-21 [facility] Comment on above: Order Comment: Speci men Type: BLOOD SPECIMENOrdering Facility: [facility] Address: [address] [place] [address] Performed By: #### 2 4321-2 ####[facility] LABCLDEWEY [id number] VAHID ALVARADO [address] STATES OF [facility] CNOVon 03-22-2025 [facility] Office Visit (FAMPWS ) ALVARADO COHEN ([id number]) 1945 F Date Time Provider Department 03/22/25 3:20 PM [facility] During your visit today, we recorded the following information about you: Pulse Respiration Blood pressure Weight 62/minute 18/minute 164/68 54.3 kg Glenny Luque MD 03/22/2025 4:01 PM Signed Chief Complaint Patient presents with: Follow Up: BP HPI Alvarado Cohen is a 79 year old female who presents here today for a follow up. Pt here today for a follow up for her blood pressure, due to persistant elevation. Tobacco - Still smoking, but has cut down to under 10 cigarettes per day. HTN - Reading at last OV was elevated at 166/64. Checking BP at home, with BP ranging from 140-160's/50-60's.. Usually will come down to systolic in 140s if she rests fro a few minutes. Denies any chest pain, sob, or dizziness. On current regimen of Amlodipine 10 mg once daily, Lisinopril 30 mg 1 tab po bid, Hydralazine 25 mg 1 tab po TID up to QID (has not taken QID), Chlorthalidone 25 mg once daily and Toprol XL 50 mg 1 tab po bid. Nephro - Follows with Dr. Govea for hypertensive disorder. Pt recently seen by Nephro on 02/24/25, who recommended increasing Hydralazine 25 mg from TID to QID and repeat BMP in 1 month. Still complains of aching in legs with walking. She did not get PVR testing done, vianey wait and see how she does. HM - Declines Covid vaccine. Past medical history, appointments, medications, allergies reviewed. Previous Medical History PAST MEDICAL HISTORY Diagnosis Date BENIGN HYPERTENSION 09/11/2005 Benign hypertensive heart disease without heart failure Disorder of bone and cartilage, unspecified Diverticulosis of colon (without mention of hemorrhage) Hyperlipidemia LDL goal < 100 01/13/2013 Hypokalemia 02/26/2014 Internal hemorrhoids without mention of complication OSTEOPOROSIS NOS 08/26/2007 Tobacco abuse 10/11/2010 VITAMIN D DEFICIENCY NOS 09/03/2007 Previous Surgical History PAST SURGICAL HISTORY Procedure Laterality Date COLONOSCOPY FLX DX W/COLLJ SPEC WHEN PFRMD 02/18/2007 COLONOSCOPY FLX DX W/COLLJ SPEC WHEN PFRMD 06/10/2017 Colonoscopy PAST SURGICAL HISTORY OF N/A 10/07/2024 Renal artery stent surgery, unable to place stent Family History FAMILY HISTORY Problem Relation Age of Onset Psychiatry Mother ANXIETY Cancer Father RENAL No Known Problems Brother Arthritis Paternal Grandmother Hypertension Paternal Grandfather Patient Allergies ALLERGIES Allergen Reactions Codeine Spironolactone Other: See Comments lightheadedness Sulfa (Sulfonamide * Current Medications Current Outpatient Medications on File Prior to Visit Medication Sig amLODIPine (NORVASC) 10 mg tablet Take 1 tablet by mouth once daily. chlorthalidone (HYGROTON) 25 mg tablet Take 1 tablet by mouth once daily. lisinopril (ZESTRIL) 30 mg tablet Take 1 tablet by mouth two times a day. alendronate (FOSAMAX) 70 mg tablet Take 1 tablet by mouth one time a week. In AM with cup of water on empty stomach. Nothing else by mouth and stay upright for 30 min. hydrALAZINE (APRESOLINE) 25 mg tablet Take 1 tablet by mouth three times a day. au-zoh-gagqy-calcium carb-K1 (WOMEN'S 50 PLUS MULTIVITAMIN) 400 mcg-500 mg calcium-20 mcg tab Take 1 tablet by mouth once daily. metoprolol succinate ER (TOPROL XL) 50 mg 24 hr tablet Take 1 tablet by mouth two times a day. aspirin 325 mg tablet Take 325 mg by mouth as needed. CALCIUM 600 + D 600 MG-125 UNIT TAB Take one(1) tablet twice daily. No current facility-administered medications on file prior to visit. Social History Social History Tobacco Use Smoking status: Every Day Current packs/day: 1.00 Average packs/day: 1 pack/day for 45.0 years (45.0 ttl pk-yrs) Types: Cigarettes Smokeless tobacco: Never Tobacco comments: Trying to reduce, smoking 10 or less. Vaping Use Vaping status: Never Used Substance Use Topics Alcohol use: No Drug use: No EXAM: BP 164/68 (BP Site: Left Arm, BP Position: Sitting, BP Cuff Size: Regular Adult) Pulse 62 Resp 18 Wt 54.3 kg (119 lb 11.4 oz) BMI 21.90 kg/m? General Appearance: Well appearing, alert, in no acute distress, well-hydrated, well nourished.. Lungs: Lungs clear to auscultation. No wheezing, rhonchi, rales.. Heart: RRR without murmur, gallop, or rubs. No ectopy. Health Maintenance List Depression Screening Never done Anxiety Screening Never done BP Controlled (<130/80) due on 06/26/2022 [facility] Directive Discussion Never done Covid-19 Vaccine( season) due on 02/17/2025 Annual PCP Team Chronic Disease Visit due on 11/26/2025 Bone Density Screening due on 01/01/2027 Diabetes Screening due on 02/23/2028 DTaP,Tdap,Td Vaccine(4 - Td or Tdap) due on 07/16/2028 Influenza Vaccine Completed RSV Vaccine Completed Hepatitis C Screening (more content not included)... Normal [facility] Basic metabolic 2000 panelon 02-22-2025 Anion gap [Moles/Vol] 10 mmol/L Normal 8-15 [facility] Comment on above: Order Comment: Speci mariajose Type: BLOOD SPECIMENOrdering Facility: [facility] Address: [facility] [place] [address] Performed By: #### 2 4321-2 ####[facility] LABCLIA [id number] [place] [address] [place] Calcium [Mass/Vol] 9.3 mg/dL Normal 8.5-10.2 [facility] Comment on above: Order Comment: Speci men Type: BLOOD SPECIMENOrdering Facility: [facility] Address: [address] [place] [address] Performed By: #### 2 4321-2 ####[facility] LABCLIA [id number] [address] [address] [place] Chloride [Moles/Vol] 95 mmol/L Low 98-107 [facility] Comment on above: Order Comment: Speci men Type: BLOOD SPECIMENOrdering Facility: [facility] Address: [address] [place] [address] Performed By: #### 2 4321-2 ####[facility] LABCLIA [id number] [facility] [place] [id number] [place] CO2 [Moles/Vol] 24 mmol/L Normal 22-30 [facility] Comment on above: Order Comment: Speci men Type: BLOOD SPECIMENOrdering Facility: [facility] Address: [address] [place] [address] Performed By: #### 2 4321-2 ####[facility] LABCLIA [id number] [place] [id number] [place] Creatinine [Mass/Vol] 0.98 mg/dL High 0.58-0.96 [facility] Comment on above: Order Comment: Speci men Type: BLOOD SPECIMENOrdering Facility: [facility] [employer] [facility] Address: [address] [place] [address] Performed By: #### 2 4321-2 ####[facility] LABCLIA [id number] [facility] [address] [address] [place] Creatinine and Glomerular filtration rate.predicted panel (S/P/Bld) 59 mL/min/1.73m??? Low >=60 [facility] Comment on above: Order Comment: Speci men Type: BLOOD SPECIMENOrdering Facility: [facility] Address: [address] [place] [address] Result Comment: Madisyn mated Glomerular Filtration Rate (eGFR) is calculated using the 2020 CKD-EPI creatinine equation. This equation utilizes serum creatinine, sex, and age as parameters. The creatinine assay has traceable calibration to isotope dilution-mass spectrometry. Refer to KDIGO guidelines for clinical interpretation. In patients with unstable renal function, e.g. those with acute kidney injury, the eGFR may not accurately reflect actual GFR. Performed By: #### 2 4321-2 ####[facility] LABIA [id number] [address] [address] [place] Glucose [Mass/Vol] 88 mg/dL Normal 74-99 [facility] Comment on above: Order Comment: Alex billy Type: BLOOD SPECIMENOrdering Facility: [facility] Address: [facility] [place] [id number] Result Comment: The [place] Diabetes Association (ADA) provides guidance for cutoff values for fasting glucose and random glucose. The ADA defines fasting as no caloric intake for at least 8 hours. Fasting plasma glucose results between 100 to 125 mg/dL indicate increased risk for diabetes (prediabetes). Fasting plasma glucose results greater than or equal to 126 mg/dL meet the criteria for diagnosis of diabetes. In the absence of unequivocal hyperglycemia, results should be confirmed by repeat testing. In a patient with classic symptoms of hyperglycemia or hyperglycemic crisis, random plasma glucose results greater than or equal to 200 mg/dL meet the criteria for diagnosis of diabetes. Reference: Standards of Medical Care in Diabetes 2016, [place] Diabetes Association. Diabetes Care. 2016.39(Suppl 1). Performed By: #### 2 4321-2 ####[facility] LABIA [id number] [address] [address] [place] Potassium [Moles/Vol] 4.2 mmol/L Normal 3.7-5.1 [facility] Comment on above: Order Comment: Alex billy Type: BLOOD SPECIMENOrdering Facility: [facility] Address: [address] [place] [id number] Performed By: #### 2 4321-2 ####[facility] LABCLIA [id number] [address] [address] [place] Sodium [Moles/Vol] 129 mmol/L Low 136-144 [facility] Comment on above: Order Comment: Speci men Type: BLOOD SPECIMENOrdering Facility: [facility] Address: [address] [place] [address] Performed By: #### 2 4321-2 ####[facility] LABCLIA [id number] [address] [place] [address] [place] Urea nitrogen [Mass/Vol] 23 mg/dL High 7-21 [facility] Comment on above: Order Comment: Speci men Type: BLOOD SPECIMENOrdering Facility: [facility] Address: [place] [address] Performed By: #### 2 4321-2 ####[facility] LABIA [id number] [address] [address] [place] BD DXA - AXIAL SKELETONon BD DXA - AXIAL SKELETON * * *Final Report* * * DATE OF EXAM: Jan 01 2025 12:46PM [facility] 0804 - BD DXA - AXIAL SKELETON / PROCEDURE REASON: Age-related osteoporosis without current pathological fracture * * * * Physician Interpretation * * * * EXAMINATION: DXA BONE DENSITOMETRY BD DXA - AXIAL SKELETON, BD DXA TRABECLR BONE SCORE (TBS) PATIENT DEMOGRAPHICS: Age: 79 years, Gender: Female SCANNER INFORMATION: DXA Model: [employer] C [id number] Date Scanned: 01/01/2025 12:46 PM CLINICAL HISTORY: DIAGNOSTIC Age-related osteoporosis without current pathological fracture . RISK FACTORS FOR OSTEOPOROSIS AND ASSOCIATED FRACTURES REPORTED BY THIS PATIENT: Please refer to Bone Health Questionnaire in the EMR CURRENT THERAPY: Please refer to Bone Health Questionnaire in the EMR TECHNICAL LIMITATIONS: Degenerative disease of the spine RESULTS: Lumbar spine (L1, L2, L3, L4): 1.021 g/cm2, T-score -0.2, Z-score 2.4 Lumbar spine: 2016: 1.034 g/cm2 No statistically significant change Right Femoral Neck: 0.542 g/cm2, T-score -2.8, Z-score -0.5 Right Femoral Neck: 2016: 0.617 g/cm2 Statistically significant decrease Right Total Hip: 0.708 g/cm2, T-score -1.9, Z-score 0.1 Right Total Hip: 2016: 0.819 g/cm2 Statistically significant decrease Left Femoral Neck: 0.515 g/cm2, T-score -3.0, Z-score -0.8 Left Femoral Neck: 2016: 0.557 g/cm2 Statistically significant decrease Left Total Hip: 0.728 g/cm2, T-score -1.8, Z-score 0.2 Left Total Hip: 2016: 0.701 g/cm2 No statistically significant change CHANGE IS STATISTICALLY SIGNIFICANT IN THE SPINE OR HIP IF GREATER THAN OR EQUAL TO 0.04 g/cm2 VERTEBRAL FRACTURE ASSESSMENT Not performed. TRABECULAR BONE ASSESSMENT TBS score: 1.303 Bone micro-architecture: Partially degraded (1.231 - 1.310) IMPRESSION: THE LOWEST T-SCORE IS -3.0 IN THE LEFT HIP 1) DIAGNOSIS (based on BMD alone): OSTEOPOROSIS Caution: Medical conditions other than osteoporosis may cause low bone density, such as osteomalacia or renal osteodystrophy. Clinical correlation is necessary. 2) FRACTURE RISK (Based on TBS adjusted FRAX): 10-year absolute fracture risk: - major osteoporotic fracture = 19 % - hip fracture = 10 % - A diagnosis of Osteoporosis, a 10 year probability of hip fracture greater than or equal to 3% or a 10 year probability of any major osteoporosis-related fracture greater than or equal to 20% should be considered for treatment. - DXA scanner generated FRAX calculations may slightly differ from online FRAX calculations due to differences in software versions. - All recommendations and calculations are to be considered as guidelines and should not replace sound clinical judgement - Caution: Fracture risk may be increased independent of BMD in patients with corticosteroid use, age greater than 65 years, or a history of prior fragility fracture. RECOMMENDATIONS: Follow-up in 2 years or as clinically indicated. Patients that are taking corticosteroids, are transplant recipients or have hyperparathyroidism should have annual follow-up. Follow-up scans should always be done on the same machine for accurate comparison. FOR MORE INFORMATION ABOUT DIAGNOSIS AND TREATMENT: [facility] Metabolic [facility] Disease:? www.ccf.org/arthritis/ osteo National Osteoporosis Foundation:? www.nof.org International Society of Clinical Densitometry www.iscd.org Veterans Adviser: ALEX Transcribe Date/Time: Jan 04 2025 11:04A Dictated by : MILO GONZALEZ MD This examination was interpreted and the report reviewed and electronically signed by: MILO GONZALEZ MD on Jan 04 2025 11:06AM EST [id number] -3.0 Normal [facility] BD DXA TRABECLR BONE SCORE ( TBS)on 01-01-2025 BD DXA TRABECLR BONE SCORE (TBS) * * *Final Report* * * DATE OF EXAM: Jan 01 2025 12:46PM [facility] 0801 - BD DXA TRABECLR BONE SCORE (TBS) / PROCEDURE REASON: Age-related osteoporosis without current pathological fracture * * * * Physician Interpretation * * * * EXAMINATION: DXA BONE DENSITOMETRY BD DXA - AXIAL SKELETON, BD DXA TRABECLR BONE SCORE (TBS) PATIENT DEMOGRAPHICS: Age: 79 years, Gender: Female SCANNER INFORMATION: DXA Model: [employer] - [employer] C [id number] Date Scanned: 01/01/2025 12:46 PM CLINICAL HISTORY: DIAGNOSTIC Age-related osteoporosis without current pathological fracture . RISK FACTORS FOR OSTEOPOROSIS AND ASSOCIATED FRACTURES REPORTED BY THIS PATIENT: Please refer to Bone Health Questionnaire in the EMR CURRENT THERAPY: Please refer to Bone Health Questionnaire in the EMR TECHNICAL LIMITATIONS: Degenerative disease of the spine RESULTS: Lumbar spine (L1, L2, L3, L4): 1.021 g/cm2, T-score -0.2, Z-score 2.4 Lumbar spine: 2016: 1.034 g/cm2 No statistically significant change Right Femoral Neck: 0.542 g/cm2, T-score -2.8, Z-score -0.5 Right Femoral Neck: 2016: 0.617 g/cm2 Statistically significant decrease Right Total Hip: 0.708 g/cm2, T-score -1.9, Z-score 0.1 Right Total Hip: 2016: 0.819 g/cm2 Statistically significant decrease Left Femoral Neck: 0.515 g/cm2, T-score -3.0, Z-score -0.8 Left Femoral Neck: 2016: 0.557 g/cm2 Statistically significant decrease Left Total Hip: 0.728 g/cm2, T-score -1.8, Z-score 0.2 Left Total Hip: 2016: 0.701 g/cm2 No statistically significant change CHANGE IS STATISTICALLY SIGNIFICANT IN THE SPINE OR HIP IF GREATER THAN OR EQUAL TO 0.04 g/cm2 VERTEBRAL FRACTURE ASSESSMENT Not performed. TRABECULAR BONE ASSESSMENT TBS score: 1.303 Bone micro-architecture: Partially degraded (1.231 - 1.310) IMPRESSION: THE LOWEST T-SCORE IS -3.0 IN THE LEFT HIP 1) DIAGNOSIS (based on BMD alone): OSTEOPOROSIS Caution: Medical conditions other than osteoporosis may cause low bone density, such as osteomalacia or renal osteodystrophy. Clinical correlation is necessary. 2) FRACTURE RISK (Based on TBS adjusted FRAX): 10-year absolute fracture risk: - major osteoporotic fracture = 19 % - hip fracture = 10 % - A diagnosis of Osteoporosis, a 10 year probability of hip fracture greater than or equal to 3% or a 10 year probability of any major osteoporosis-related fracture greater than or equal to 20% should be considered for treatment. - DXA scanner generated FRAX calculations may slightly differ from online FRAX calculations due to differences in software versions. - All recommendations and calculations are to be considered as guidelines and should not replace sound clinical judgement - Caution: Fracture risk may be increased independent of BMD in patients with corticosteroid use, age greater than 65 years, or a history of prior fragility fracture. RECOMMENDATIONS: Follow-up in 2 years or as clinically indicated. Patients that are taking corticosteroids, are transplant recipients or have hyperparathyroidism should have annual follow-up. Follow-up scans should always be done on the same machine for accurate comparison. FOR MORE INFORMATION ABOUT DIAGNOSIS AND TREATMENT: [facility]osis and Metabolic Bone Disease:? www.ccf.org/arthritis/ osteo National Osteoporosis Foundation:? www.nof.org International Society of Clinical Densitometry www.iscd.org Veterans Adviser: ALEX Transcribe Date/Time: Jan 04 2025 11:04A Dictated by : MILO GONZALEZ MD This examination was interpreted and the report reviewed and electronically signed by: MILO GONZALEZ MD on Jan 04 2025 11:06AM EST [id number] -3.0 Normal [facility] CBC W Auto Differential pane l (Bld)on 12-09-2024 Basophils (Bld) [#/Vol] 0.08 10*3/uL Normal <0.11 [facility] Comment on above: Order Comment: Speci men Type: BLOOD SPECIMENOrdering Facility: [facility] Address: [address] [place] [address] Performed By: #### 5 7021-8 ####[facility] LABCLIA [id number] [place] [address] [place] Basophils/100 WBC (Bld) 0.9 % Normal [facility] Comment on above: Order Comment: Speci men Type: BLOOD SPECIMENOrdering Facility: [facility] Address: [address] [place] [address] Performed By: #### 5 7021-8 ####[facility] LABCLIA [id number] [place] [address] [place] Differential cell count method Nom (Bld) Auto Normal [facility] Comment on above: Order Comment: Speci men Type: BLOOD SPECIMENOrdering Facility: [facility] Address: [address] [place] [address] Performed By: #### 5 7021-8 ####[facility] LABCLIA [id number] [place] [address] [place] Eosinophils (Bld) [#/Vol] 0.25 10*3/uL Normal <0.46 [facility] Comment on above: Order Comment: Speci men Type: BLOOD SPECIMENOrdering Facility: [facility] Address: [address] [place] [address] Performed By: #### 5 7021-8 ####[facility] LABCLIA [id number] [place] [address] [place] Eosinophils/100 WBC (Bld) 2.8 % Normal [facility] Comment on above: Order Comment: Speci men Type: BLOOD SPECIMENOrdering Facility: [facility] Address: [address] [place] [address] Performed By: #### 5 7021-8 ####[facility] LABCLIA [id number] [place] [address] [place] Erythrocyte distribution width (RBC) [Ratio] 14.6 % Normal 11.5-15.0 [facility] Comment on above: Order Comment: Speci men Type: BLOOD SPECIMENOrdering Facility: [facility] Address: [address] [place] [address] Performed By: #### 5 7021-8 ####[facility] LABCLIA [id number] [place] [address] [place] Hematocrit (Bld) [Volume fraction] 36.5 % Normal 36.0-46.0 [facility] Comment on above: Order Comment: Speci men Type: BLOOD SPECIMENOrdering Facility: [facility] Address: [address] [place] [address] Performed By: #### 5 7021-8 ####[facility] LABCLIA [id number] [place] [address] [place] Hemoglobin (Bld) [Mass/Vol] 11.9 g/dL Normal 11.5-15.5 [facility] Comment on above: Order Comment: Speci men Type: BLOOD SPECIMENOrdering Facility: [facility] Address: [address] [place] [address] Performed By: #### 5 7021-8 ####[facility] LABCLIA [id number] [place] [address] [place] Immature granulocytes (Bld) [#/Vol] 10*3/uL Normal <0.10 [facility] Comment on above: Order Comment: Speci men Type: BLOOD SPECIMENOrdering Facility: [facility] Address: [address] [place] [address] Performed By: #### 5 7021-8 ####[facility] LABCLIA [id number] [place] [address] [place] Immature granulocytes/100 WBC (Bld) 0.2 % Normal [facility] Comment on above: Order Comment: Speci men Type: BLOOD SPECIMENOrdering Facility: [facility] Address: [address] [place] [address] Performed By: #### 5 7021-8 ####[facility] LABCLIA [id number] [place] [address] [place] Lymphocytes (Bld) [#/Vol] 1.66 10*3/uL Normal 1.00-4.00 [facility] Comment on above: Order Comment: Speci men Type: BLOOD SPECIMENOrdering Facility: [facility] Address: [address] [place] [address] Performed By: #### 5 7021-8 ####[facility] LABCLIA [id number] [place] [address] [place] Lymphocytes/100 WBC (Bld) 18.6 % Normal [facility] Comment on above: Order Comment: Speci men Type: BLOOD SPECIMENOrdering Facility: [facility] Address: [address] [place] [address] Performed By: #### 5 7021-8 ####[facility] LABCLIA [id number] [place] [address] [place] MCH (RBC) [Entitic mass] 29.0 pg Normal 26.0-34.0 [facility] Comment on above: Order Comment: Speci men Type: BLOOD SPECIMENOrdering Facility: [facility] Address: [address] [place] [address] Performed By: #### 5 7021-8 ####[facility] LABCLIA [id number] [place] [address] [place] MCHC (RBC) [Mass/Vol] 32.6 g/dL Normal 30.5-36.0 [facility] Comment on above: Order Comment: Speci men Type: BLOOD SPECIMENOrdering Facility: [facility] Address: [address] [place] [address] Performed By: #### 5 7021-8 ####[facility] LABCLIA [id number] [place] [address] [place] MCV (RBC) [Entitic vol] 88.8 fL Normal 80.0-100.0 [facility] Comment on above: Order Comment: Speci men Type: BLOOD SPECIMENOrdering Facility: [facility] Address: [address] [place] [address] Performed By: #### 5 7021-8 ####[facility] LABCLIA [id number] [place] [address] [place] Monocytes (Bld) [#/Vol] 0.85 10*3/uL Normal <0.87 [facility] Comment on above: Order Comment: Speci men Type: BLOOD SPECIMENOrdering Facility: [facility] Address: [address] [place] [address] Performed By: #### 5 7021-8 ####[facility] LABCLIA [id number] [place] [address] [place] Monocytes/100 WBC (Bld) 9.5 % Normal [facility] Comment on above: Order Comment: Speci men Type: BLOOD SPECIMENOrdering Facility: [facility] Address: [address] [place] [address] Performed By: #### 5 7021-8 ####[facility] LABCLIA [id number] [place] [address] [place] Neutrophils (Bld) [#/Vol] 6.06 10*3/uL Normal 1.45-7.50 [facility] Comment on above: Order Comment: Speci men Type: BLOOD SPECIMENOrdering Facility: [facility] Address: [address] [place] [address] Performed By: #### 5 7021-8 ####[facility] LABCLIA [id number] [place] [address] [place] Neutrophils/100 WBC (Bld) 68.0 % Normal [facility] Comment on above: Order Comment: Speci men Type: BLOOD SPECIMENOrdering Facility: [facility] Address: [address] [place] [address] Performed By: #### 5 7021-8 ####[facility] LABCLIA [id number] [place] [address] [place] Nucleated RBC (Bld) [#/Vol] 10*3/uL Normal <0.01 [facility] Comment on above: Order Comment: Speci men Type: BLOOD SPECIMENOrdering Facility: [facility] Address: [address] [place] [address] Performed By: #### 5 7021-8 ####[facility] LABCLIA [id number] [place] [address] [place] Nucleated RBC/100 WBC (Bld) [Ratio] 0.0 /100 WBC Normal [facility] Comment on above: Order Comment: Speci men Type: BLOOD SPECIMENOrdering Facility: [facility] Address: [address] [place] [address] Performed By: #### 5 7021-8 ####[facility] LABCLIA [id number] [place] [address] [place] Platelet mean volume (Bld) [Entitic vol] 9.9 fL Normal 9.0-12.7 [facility] Comment on above: Order Comment: Speci men Type: BLOOD SPECIMENOrdering Facility: [facility] Address: [address] [place] [address] Performed By: #### 5 7021-8 ####[facility] LABCLIA [id number] [place] [address] [place] Platelets (Bld) [#/Vol] 345 10*3/uL Normal 150-400 [facility] Comment on above: Order Comment: Speci men Type: BLOOD SPECIMENOrdering Facility: [facility] Address: [address] [place] [address] Performed By: #### 5 7021-8 ####[facility] LABCLIA [id number] [place] [address] [place] RBC (Bld) [#/Vol] 4.11 10*6/uL Normal 3.90-5.20 [facility] Comment on above: Order Comment: Speci men Type: BLOOD SPECIMENOrdering Facility: [facility] Address: [address] [place] [address] Performed By: #### 5 7021-8 ####[facility] LABCLIA [id number] [place] [address] [place] WBC (Bld) [#/Vol] 8.92 10*3/uL Normal 3.70-11.00 [facility] Comment on above: Order Comment: Speci men Type: BLOOD SPECIMENOrdering Facility: [facility] Address: [address] [place] [address] Performed By: #### 5 7021-8 ####[facility] LABCLIA [id number] [place] [address] [place] Comprehensive metabolic 2000 panelon 12-09-2024 Albumin [Mass/Vol] 4.4 g/dL Normal 3.9-4.9 [facility] Comment on above: Order Comment: Speci men Type: BLOOD SPECIMENOrdering Facility: [facility] Address: [address] [place] [address] Performed By: #### 2 4323-8, 96152-2 ####[facility] LABCLIA [id number] [place] [address] [place] ALP [Catalytic activity/Vol] 90 U/L Normal 34-123 [facility] Comment on above: Order Comment: Speci men Type: BLOOD SPECIMENOrdering Facility: [facility] Address: [address] [place] [address] Performed By: #### 2 4323-8, 32176-9 ####[facility] LABCLIA [id number] [id number] [address] [place] ALT [Catalytic activity/Vol] 21 U/L Normal 7-38 [facility] Comment on above: Order Comment: Speci men Type: BLOOD SPECIMENOrdering Facility: [facility] Address: [address] [place] [id number] Performed By: #### 2 4323-8, 69685-5 ####[facility] LABCLIA [id number] [place] [address] [place] Anion gap [Moles/Vol] 11 mmol/L Normal 8-15 [facility] Comment on above: Order Comment: Speci men Type: BLOOD SPECIMENOrdering Facility: [facility] Address: [address] [place] [address] Performed By: #### 2 4323-8, 66621-6 ####[facility] LABCLIA [id number] [place] [address] [place] AST [Catalytic activity/Vol] 18 U/L Normal 13-35 [facility] Comment on above: Order Comment: Speci men Type: BLOOD SPECIMENOrdering Facility: [facility] Address: [address] [place] [address] Performed By: #### 2 4323-8, 79511-6 ####[facility] LABCLIA [id number] [place] [address] [place] Bilirubin [Mass/Vol] 0.3 mg/dL Normal 0.2-1.3 [facility] Comment on above: Order Comment: Speci men Type: BLOOD SPECIMENOrdering Facility: [facility] Address: [address] [place] [id number] Performed By: #### 2 4323-8, 48668-3 ####[facility] LABCLIA [id number] [place] [id number] [place] Calcium [Mass/Vol] 9.5 mg/dL Normal 8.5-10.2 [facility] Comment on above: Order Comment: Speci men Type: BLOOD SPECIMENOrdering Facility: [facility] Address: [address] [place] [address] Performed By: #### 2 4323-8, 73264-2 ####[facility] LABCLIA [id number] [place] [address] [place] Chloride [Moles/Vol] 95 mmol/L Low 98-107 [facility] Comment on above: Order Comment: Speci men Type: BLOOD SPECIMENOrdering Facility: [facility] Address: [address] [place] [address] Performed By: #### 2 4323-8, 52670-0 ####[facility] LABCLIA [id number] [place] [address] [place] CO2 [Moles/Vol] 23 mmol/L Normal 22-30 [facility] Comment on above: Order Comment: Speci men Type: BLOOD SPECIMENOrdering Facility: [facility] Address: [address] [place] [address] Performed By: #### 2 4323-8, 25162-3 ####[facility] LABCLIA [id number] [place] [address] [place] Creatinine [Mass/Vol] 1.11 mg/dL High 0.58-0.96 [facility] Comment on above: Order Comment: Speci men Type: BLOOD SPECIMENOrdering Facility: [facility] Address: [address] [place] [address] Performed By: #### 2 4323-8, 27438-2 ####[facility] LABCLIA [id number] [place] [address] [place] Creatinine and Glomerular filtration rate.predicted panel (S/P/Bld) 51 mL/min/1.73m??? Low >=60 [facility] Comment on above: Order Comment: Speci men Type: BLOOD SPECIMENOrdering Facility: [facility] Address: [address] [place] [address] Result Comment: Madisyn mated Glomerular Filtration Rate (eGFR) is calculated using the 2020 CKD-EPI creatinine equation. This equation utilizes serum creatinine, sex, and age as parameters. The creatinine assay has traceable calibration to isotope dilution-mass spectrometry. Refer to KDIGO guidelines for clinical interpretation. In patients with unstable renal function, e.g. those with acute kidney injury, the eGFR may not accurately reflect actual GFR. Performed By: #### 2 4323-8, 63924-6 ####[facility] LABIA [id number] [place] [address] [place] Glucose [Mass/Vol] 89 mg/dL Normal 74-99 [facility] Comment on above: Order Comment: Speci men Type: BLOOD SPECIMENOrdering Facility: [facility] Address: [address] [place] [address] Result Comment: The [place] Diabetes Association (ADA) provides guidance for cutoff values for fasting glucose and random glucose. The ADA defines fasting as no caloric intake for at least 8 hours. Fasting plasma glucose results between 100 to 125 mg/dL indicate increased risk for diabetes (prediabetes). Fasting plasma glucose results greater than or equal to 126 mg/dL meet the criteria for diagnosis of diabetes. In the absence of unequivocal hyperglycemia, results should be confirmed by repeat testing. In a patient with classic symptoms of hyperglycemia or hyperglycemic crisis, random plasma glucose results greater than or equal to 200 mg/dL meet the criteria for diagnosis of diabetes. Reference: Standards of Medical Care in Diabetes 2016, [place] Diabetes Association. Diabetes Care. 2016.39(Suppl 1). Performed By: #### 2 4323-8, 82120-0 ####[facility] LABIA [id number] [place] [address] [place] Potassium [Moles/Vol] 4.6 mmol/L Normal 3.7-5.1 [facility] Comment on above: Order Comment: Jorgei men Type: BLOOD SPECIMENOrdering Facility: [facility] Address: [address] [place] [address] Performed By: #### 2 4323-8, 28136-3 ####[facility] LABIA [id number] [place] [address] [place] Protein [Mass/Vol] 7.2 g/dL Normal 6.3-8.0 [facility] Comment on above: Order Comment: Speci men Type: BLOOD SPECIMENOrdering Facility: [facility] Address: [address] [place] [address] Performed By: #### 2 4323-8, 49303-6 ####[facility] LABCLIA [id number] [place] [address] [place] Sodium [Moles/Vol] 129 mmol/L Low 136-144 [facility] Comment on above: Order Comment: Speci men Type: BLOOD SPECIMENOrdering Facility: [facility] Address: [address] [place] [address] Performed By: #### 2 4323-8, 91347-0 ####[facility] LABCLIA [id number] [place] [address] [place] Urea nitrogen [Mass/Vol] 25 mg/dL High 7-21 [facility] Comment on above: Order Comment: Speci men Type: BLOOD SPECIMENOrdering Facility: [facility] Address: [address] [place] [address] Performed By: #### 2 4323-8, 13828-7 ####[facility] LABCLIA [id number] [place] [address] [place] Lipid 1996 panelon 5 Cholesterol [Mass/Vol] 192 mg/dL Normal <200 [facility] Comment on above: Order Comment: Speci men Type: BLOOD SPECIMENOrdering Facility: [facility] Address: [address] [place] [address] Result Comment: <200 mg/dL, Desirable 200-239 mg/dL, Borderline high >239 mg/dL, High Performed By: #### 2 4323-8, 46223-5 ####[facility] LABCLIA [id number] [place] [address] [place] Cholesterol in HDL [Mass/Vol] 83 mg/dL Normal >39 [facility] Comment on above: Order Comment: Alex billy Type: BLOOD SPECIMENOrdering Facility: [facility] Address: [address] [place] [address] Result Comment: 40-5 9 mg/dL, Acceptable >59 mg/dL, High: Negative risk factor for coronary heart disease <40 mg/dL, Low: Positive risk factor for coronary heart disease Performed By: #### 2 4323-8, 96123-6 ####[facility] LABCLIA [id number] [address] Cholesterol in LDL [Mass/Vol] 93 mg/dL Normal <100 [facility] Comment on above: Order Comment: Jorgebernadine billy Type: BLOOD SPECIMENOrdering Facility: [facility] Address: [address] [place] [address] Result Comment: <100 mg/dL, Optimal 100-129 mg/dL, Near optimal/above optimal 130-159 mg/dL, Borderline high 160-189 mg/dL, High >189 mg/dL, Very high Secondary prevention optimal LDL Cholesterol levels are recommended to be < 70 mg/dL Performed By: #### 2 4323-8, 24968-8 ####[facility] LABCLIA [id number] [address] Cholesterol in LDL/Cholesterol in HDL [Mass ratio] 1.12 {ratio} Normal <2.54 [facility] Comment on above: Order Comment: Alex billy Type: BLOOD SPECIMENOrdering Facility: [facility] Address: [address] [place] [address] Result Comment: Refe rence: 1. National Cholesterol Education Program ATP III Guideline At-A-Glance Quick Desk Reference: National Heart, Lung, and Blood [place]. National Institutes of Health. 2001: NIH Publication No. 01-3305. 2. An International Atherosclerosis Society position paper: global recommendations for the management of dyslipidemia: executive summary, Atherosclerosis. 2014: 232(2):410-413. Performed By: #### 2 4323-8, 79820-6 ####[facility] LABCLIA [id number] [address] [address] [place] Cholesterol in VLDL [Mass/Vol] 16 mg/dL Normal <30 [facility] Comment on above: Order Comment: Speci men Type: BLOOD SPECIMENOrdering Facility: [facility] Address: [address] [place] [address] Performed By: #### 2 4323-8, 73703-7 ####[facility] LABCLIA [id number] [place] [address] [place] Cholesterol non HDL [Mass/Vol] 109 mg/dL Normal <130 [facility] Comment on above: Order Comment: Speci men Type: BLOOD SPECIMENOrdering Facility: [facility] Address: [address] [place] [address] Result Comment: <130 mg/dL, Optimal 130-159 mg/dL, Near optimal/above optimal 160-189 mg/dL, Borderline high 190-219 mg/dL, High >219 mg/dL, Very high Secondary prevention optimal non HDL Cholesterol levels are recommended to be <100 mg/dL Performed By: #### 2 4323-8, 56699-5 ####[facility] LABCLIA [id number] [place] [address] [place] Cholesterol.total/C holesterol in HDL [Mass ratio] 2.31 {ratio} Normal <5.10 [facility] Comment on above: Order Comment: Speci men Type: BLOOD SPECIMENOrdering Facility: [facility] Address: [address] [place] [id number] Performed By: #### 2 4323-8, 11490-4 ####[facility] LABCLIA [id number] [place] [address] [place] FASTING TIME 12 hrs Normal [facility] Comment on above: Order Comment: Speci men Type: BLOOD SPECIMENOrdering Facility: [facility] Address: [address] [place] [address] Performed By: #### 2 4323-8, 98193-8 ####[facility] LABCLIA [id number] [place] [address] [place] Triglyceride [Mass/Vol] 79 mg/dL Normal <150 [facility] Comment on above: Order Comment: Speci men Type: BLOOD SPECIMENOrdering Facility: [facility] Address: [address] [place] [address] Result Comment: <150 mg/dL, Normal 150-199 mg/dL, Borderline high 200-499 mg/dL, High >499 mg/dL, Very high Performed By: #### 2 4323-8, 28886-9 ####[facility] LABCLIA [id number] [place] [address] [place] CNOVon 11-26-2024 CNOV Office Visit (FAMPWS ) ALVARADO COHEN ([id number]) 1945 F Date Time Provider Department 11/26/24 1:20 PM [facility] visit today, we recorded the following information about you: Pulse Respiration Blood pressure Weight 70/minute 18/minute 166/64 55 kg Height 1.575 m Glenny Luque MD 11/26/2024 4:56 PM Signed Alvarado Cohen is a 79 year old female here for a Medicare wellness visit. Tobacco - Former 1 ppd smoker, but is making an effort to slow down. Now only smoking 10 cigarettes per day. Doing this on her own. Plans on using a patch in the future when ready to quit. GI/Uro - Denies any stomach, bowel or urinary issues. HTN - Checks BP periodically at home. Scheduled visit today for elevated BP today which is an ongoing issue for her. Reports BP readings are high, yesterday was 150-170/60's. BP has not been in the 130's in a decade. Her BP in the 140's 3-5 years ago and has continued to get higher now despite using medication. Denies any chest pain or dizziness. Does get some sob. Currently taking Amlodipine 10 mg once daily, Hydralazine 25 mg 1 tab po TID, Lisinopril 30 mg 1 tab po bid, Toprol XL 50 mg 1 tab po bid and Chlorthalidone 25 mg once daily. Has been advised by Vascular to see [facility] for her HTN and renal artery issues. Nephro - Follows with Dr. Govea in Nephrology. Has f/u with her in February with routine blood work. Vascular - Follows with Vascular, and had an US that showed 2 renal arteries in her kidney. One was small that had plaque/crystals and this is why a stent couldn't be placed. Attempted to have a renal stent placed on 10/07/24, but was not able too. She's only seen him twice. They recommended she f/u with a Provider at [facility] to monitor this and her BP. Vascular has asked pt if she has leg pain or cramping or other symptoms. Pt does note when walking her legs are sore and stop working. She has to stop and it will improve. Does have some vision issues or blurred vision, but unsure if this is related to cataracts. Has f/u with Dr. Sifuentes in regards to this. Pt denies having any other vascular testing done on her legs. Diet/Exercise - Reports diet is pretty good. Doesn't exercise as much as she used too. Previously used to walk a lot. Osteoporosis - Takes Calcium + D twice daily. Is overdue for Bone Density screening, last one completed in 2016. HM - Has Adv Dir/Living Will scanned into chart. Depression/Anxiety Screening negative, with first two questions. Overdue for BMD. Medicare Health Risk Assessment General Health Fair Exercise: Minutes/Day 20 min Exercise: Days/Week 3 days Alcohol: Daily Use Never Alcohol: Drinks/Day Patient does not drink Alcohol: 6 or more drinks Never Feel off balance No Concerns: Teeth/Dentures No Concerns: Sexual function No Troubled by feelings None of the above Frequency: Eating healthy diet More than half the days ADLs requiring help None of the above Safety precautions in home/vehicle Yes Smoke, vape, chews tobacco Yes, and I might quit Difficulty hearing No Difficulty seeing No Current Providers Specialists: I have reviewed specialist-related care of the patient in the medical record. Current care team: Patient Care Team: Glenny Luque MD as PCP - General (Family Medicine) Laurel Toure APRN.NIKKI as Tearer [employer] (Family Medicine) Hans Mccray APRN.NIKKI as [employer] (Family Medicine) Porfirio Mei MD - Vascular Nora Govea DO - Nephrology Dr. Sifuentes - Ophthalmology Dr. Christensen - Dentistry Medical/Family history review Reviewed and updated problem list, medical/surgical/famil y/social history, medications, and allergies. Opioid use review Opioid Medications (last 90 days) No data to display Anxiety/Depression screening PHQ-9 Score: 0. CHADWICK-7 Score: 1 (Minimal Anxiety) Recommendation: no further intervention at this time Cognitive screening Cognitive screening reviewed and No further action needed (score 3-5). Functional Observation Was the patient's Timed Up AND Go test unsteady or >= 12 seconds? No Advance Care Planning Surrogate decision maker and/or advance care plan documented Physical Exam Constitutional: Appearance: Normal appearance. Cardiovascular: Rate and Rhythm: Normal rate and regular rhythm. Pulses: Normal pulses. Heart sounds: Normal heart sounds. No murmur heard. Pulmonary: Effort: Pulmonary effort is normal. No respiratory distress. Breath sounds: Normal breath sounds. No wheezing, rhonchi or rales. Musculoskeletal: General: No swelling. Neurological: General: No focal deficit present. Mental Status: She is alert and oriented to person, place, and time. Psychiatric: Mood and Affect: Mood normal. Behavior: Behavior normal. Measurements BP 166/64 Pulse 70 Resp 18 Ht 157.5 cm (5' 2) Wt 55 kg (121 lb 4.1 oz) BMI 22.18 k (more content not included)... Normal [facility] MR/BMS.[place] 10-21-2024 MR/BMS.EMORY [facility] Vascular Surgery [address] [place] [address] OFFICE VISIT Date of Service: 10/21/24 MR#: [id number] Acct: [id number] Name: ALVARADO COHEN CALLI Rep #: [id number] : 1945 Provider: ERIC Post Age/Sex: 79/F Location: [facility] Status: Signed Intake Vital Signs 03/21/23 17:53 10/07/24 07:39 10/21/24 11:31 Height 5 ft 3 in 5 ft 3 in Weight: 125 lb BP 160/72 H Blood Pressure Location Lt brachial Position Sitting Respiration 16 Pulse 74 Pulse Source Monitor Temp 98.4 F Temp Source Temporal Pulse Oximetry (%) 95 Oxygen Delivery Method room air Intake Visit Reasons: Post Aortogram FU Is patient in pain?: No Allergies No Known Allergies Allergy (Verified 10/21/24 11:32) Medications ???Medication ???Instructions ???Recorded ???Confirmed ???Type amlodipine 10 mg tablet 10 mg PO DAILY 03/21/23 10/21/24 History calcium carbonate (Calcium 600) 1,200 mg PO QDAY 08/27/24 10/21/24 History chlorthalidone 25 mg tablet 25 mg PO QDAY 08/27/24 10/21/24 History metoprolol succinate 50 mg 50 mg PO BID 08/27/24 10/21/24 History tablet,extended release 24 hr multivitamin (Daily Multi-Vitamin 1 tab PO QAM 08/27/24 10/21/24 History tablet) hydralazine 25 mg tablet 25 mg PO BID high blood pressure 10/06/24 10/21/24 History lisinopril 30 mg tablet 30 mg PO BID High blood pressure 10/06/24 10/21/24 History doxycycline hyclate 100 mg tablet 100 mg PO BID 5 days #10 tabs 10/21/24 10/21/24 Rx Is last menstrual period known: No Post menopausal: Yes Patient : No Have you fallen in the past year?: No PFSH Medical History Renal artery stenosis HTN (hypertension) Surgical History H/O cone biopsy of cervix ( 1978) Family History Other Asthma Cancer Hypertension Social History Smoking Status: Heavy Smoker (>10/day) Tobacco: How many years used: 40 quit status: considering quitting HPI HPI HPI: ALVARADO COHEN, is a 79 F who presents to the office today for follow-up s/p recent aortogram/renal angiogram on 10/07/24. Angiogram revealed R pelvic kidney with dual artery supply. The superior of the two R renal arteries was severely stenosed but supplied a lesser portion of her renal parenchyma. The inferior of the two R renal arteries supplied the majority of her renal parenchyma and had no significant stenosis. There was mild <50% stenosis of the single L renal artery. Intervention was attempted on the superior R renal artery, but despite multiple attempts from different approaches the vessel was not able to be cannulated due to the coral reef calcification of the aorta at the origin of this vessel and the pelvic/downward positioning of the kidney. She had both R femoral and L radial access. She reports the R femoral puncture site has healed without issue. She notes that yesterday after her shower the scab peeled off from the L radial access site and she has noticed this area still appears open, she has noted some drainage, and some increased redness. She does not have any pain. She does not have any coolness, discoloration, or paresthesias into her L hand. ROS General General: Yes fatigue and weakness; No weight change, appetite, colon cancer or breast cancer HEENT HEENT: No difficulty swallowing, eye injury, eye surgery, swollen glands or hoarseness Endo Endocrine: Yes Hair loss; No thyroid disease, diabetes mellitus, thyroid cancer, heat intolerance or cold intolerance Skin Skin: No rash or changing moles Musc Musculoskeletal: Yes back problems; No arthritis, rheumatoid arthritis, gout or joint pain Cardio Cardiovascular: Yes high blood pressure; No murmur, pacemaker, heart disease, atrial fibrillation, heart attack, heart stent, palpitations, shortness of breat with exertion or chest pain Psych Psychiatric: No depression, anxiety or hearing voices Resp Respiratory: Yes shortness of breath, No sleep apnea, Yes cough, No COPD, No asthma, No emphysema and Yes wheezing Gastro Gastrointestinal: No abdominal pain, No nausea or vomiting, No diarrhea, No constipation, No blood in stool, No acid reflux, Yes hemorrhoids, No ulcers, No gallbladder problem and No black,tarry stools Braden Hematologic: No blood thinners, No blood disorders, No bleeding, No anemia and No blood clots Neuro Neurologic: No system reviewed and no additional complaints, except as documented, No as per HPI, No abnormal gait, No abnormal hearing, No abnormal movements, No abnormal speech, No behavioral changes, No burning sensations, No confusion, No convulsions, Yes dise (more content not included)... Normal [facility] ACT Activated Clotting Timeo n 10-07-2024 ACTk CLOT TIME 204 sec High 74-137 [facility] Comment on above: Performed By: #### L 9100.0100 #### [facility] [address] [place], [address] Basic Metabolic Profile (BMP )on 10-07-2024 BUN/CRE 23.9 RATIO High 10-20 [facility] Comment on above: Performed By: #### L 100.0500, BTSPAT, L500.2500 #### [facility] [address] [place], [address] CA,Total 9.3 mg/dL Normal 8.5-10.1 [facility] Comment on above: Performed By: #### L 100.0500, BTSPAT, L500.2500 #### [facility] [address] [place], [address] Chloride [Moles/Vol] 106 mmol/L Normal 98-107 [facility] Comment on above: Performed By: #### L 100.0500, BTSPAT, L500.2500 #### [facility] [address] [place], [address] CO2 [Moles/Vol] 25.0 mmol/L Normal 21.0-32.0 [facility] Comment on above: Performed By: #### L 100.0500, BTSPAT, L500.2500 #### [facility] [address] [place], [address] Creatinine [Mass/Vol] 1.13 mg/dL High 0.55-1.02 [facility] Comment on above: Result Comment: The validity of the calculated GFR GFRAA in patients over 70 years has not been determined. Clinical correlation is essential. Performed By: #### L 100.0500, BTSPAT, L500.2500 #### [facility] [address] [place], [address] ECRCL 33.94 ml/min Normal [facility] Comment on above: Performed By: #### L 100.0500, BTSPAT, L500.2500 #### [facility] [address] [place], [address] EST GFR - AA 60 mL/min Normal >60 [facility] Comment on above: Result Comment: Afri can Hungarian GFR Calc Performed By: #### L 100.0500, BTSPAT, L500.2500 #### [facility] [address] [place], [address] GAP 5 Normal 5-15 [facility] Comment on above: Performed By: #### L 100.0500, BTSPAT, L500.2500 #### [facility] [address] [place], [address] GFR/1.73 sq M.predicted among non-blacks MDRD (S/P/Bld) [Vol rate/Area] 50 mL/min/{1.73_m2} Low >60 [facility] Comment on above: Result Comment: Non- GFR Calc Performed By: #### L 100.0500, BTSPAT, L500.2500 #### [facility] [address] [place], [address] Glucose [Mass/Vol] 104 mg/dL Normal 74-106 [facility] Comment on above: Result Comment: Fast ing Glucose result from 100 to 125 mg/dL suggests IMPAIRED HOMEOSTASIS per A.D.A. criteria. Performed By: #### L 100.0500, BTSPAT, L500.2500 #### [facility] [address] [place], [address] Potassium [Moles/Vol] 4.2 mmol/L Normal 3.5-5.1 [facility] Comment on above: Performed By: #### L 100.0500, BTSPAT, L500.2500 #### [facility] [address] [place], [address] Sodium [Moles/Vol] 136 mmol/L Normal 136-145 [facility] Comment on above: Performed By: #### L 100.0500, BTSPAT, L500.2500 #### [facility] [address] [place], [address] Urea nitrogen [Mass/Vol] 27 mg/dL High 7-18 [facility] Comment on above: Performed By: #### L 100.0500, BTSPAT, L500.2500 #### [facility] [address] [place], [address] CBC-Complete Blood Cnt No ffon 10-07-2024 Erythrocyte distribution width (RBC) [Ratio] 14.5 % Normal 11.6-14.6 [facility] Comment on above: Performed By: #### L 100.0500, BTSPAT, L500.2500 #### [facility] [address] [place], [address] Hematocrit (Bld) [Volume fraction] 35.6 % Low 37-47 [facility] Comment on above: Performed By: #### L 100.0500, BTSPAT, L500.2500 #### [facility] [address] [place], [address] Hemoglobin (Bld) [Mass/Vol] 11.8 g/dL Low 12.0-15.0 [facility] Comment on above: Performed By: #### L 100.0500, BTSPAT, L500.2500 #### [facility] [address] [place], [address] MCH (RBC) [Entitic mass] 29.7 pg Normal 27.0-32.0 [facility] Comment on above: Performed By: #### L 100.0500, BTSPAT, L500.2500 #### [facility] [address] [place], [address] MCHC (RBC) [Mass/Vol] 33.1 g/dL Normal 32-36 [facility] Comment on above: Performed By: #### L 100.0500, BTSPAT, L500.2500 #### [facility] [address] [place], [address] MCV (RBC) [Entitic vol] 89.7 fL Normal 81-99 [facility] Comment on above: Performed By: #### L 100.0500, BTSPAT, L500.2500 #### [facility] [address] [place], [address] Platelet mean volume (Bld) [Entitic vol] 9.0 fL Normal 6.2-12.0 [facility] Comment on above: Performed By: #### L 100.0500, BTSPAT, L500.2500 #### [facility] [address] [place], [address] Platelets (Bld) [#/Vol] 273 10*3/uL Normal 150-450 [facility] Comment on above: Performed By: #### L 100.0500, BTSPAT, L500.2500 #### [facility] [address] [place], [address] RBC (Bld) [#/Vol] 3.97 10*6/uL Low 4.2-5.4 [facility] Comment on above: Performed By: #### L 100.0500, BTSPAT, L500.2500 #### [facility] [address] [place], [address] RDW SD 47.9 fl High 35.1-43.9 [facility] Comment on above: Performed By: #### L 100.0500, BTSPAT, L500.2500 #### [facility] [address] [place], [address] WBC (Bld) [#/Vol] 11.5 10*3/uL High 4.4-11.0 [facility] Comment on above: Performed By: #### L 100.0500, BTSPAT, L500.2500 #### [facility] [address] [place], [address] Operative Reporton 4 Operative Report [facility] Medical Records Department [address] [place] [address] Operative Report 10/07/24 1631 MR#: [id number] Acct: [id number] Name: ALVARADO COHEN Rep #: [id number] : 1945 79 From: Porfirio Mei MD PCP: Dr. Glenny Luque MD Status:[facility] Location: [facility] Operative Report (Standard) Operative Information Surgery/Procedure Performed: Aortogram, selective left renal angiogram Surgeon: Porfirio Mei Date of Procedure: 10/07/24 Procedure Start Time: 08:15 Procedure Stop Time: 10:15 Pre-Operative Diagnosis: Refractory hypertension Right renal artery stenosis Post-Operative Diagnosis: Same Right pelvic kidney with dual arterial supply; greater than 70% stenosis of the superior vessel Select all DRAINS/GRAFTS/IMPLANTS that apply: None Type of Anesthesia: Local and Sedation,Conscious Estimated Blood Loss: 15 Specimen collected: No Description of surgery: HPI: Patient is a 79-year-old female with hypertension refractory to multiple medications with increasing medication and dose requirements. She had a arterial duplex which revealed greater than 60% stenosis of the right renal artery. She presents now for angiography with possible intervention. Description of procedure: Upon obtaining form consent and verification correct patient procedure site patient was taken to the [employer] where she was positioned prepped and draped in usual sterile fashion. Timeout was performed consultation administered Versed and fentanyl. Skin overlying the right common femoral artery was anesthetized 1% lidocaine the vessel accessed under ultrasound guidance with a micropuncture needle wire. This was then exchanged for micropuncture sheath routine injection iliofemoral angiograms performed feeling satisfactory positioning with no extravasation or dissection. Through the micropuncture sheath a Bentson wire was advanced and the micropuncture sheath exchanged for a short 5 [place] Islander sheath. Through the 5 [place] Islander sheath we attempted to navigate into the abdominal aorta however he met resistance in the mid common iliac artery. Hand-injection angiography revealed highly calcified stenosis of the mid common iliac artery. A KMP catheter was advanced over the Bentson wire and the Bentson wire exchanged for a glide advantage wire which was able to successfully navigate the iliac lesion and into the abdominal aorta. There appeared to be significant calcification in the visceral segment aorta which also produced significant obstruction to wire advancement. The KMP catheter was then exchanged for an Omni Flush catheter which was advanced into the abdominal aorta and a digital subtraction aortogram was performed. This revealed bulky dense calcification of the suprarenal aorta creating approximately 75% stenosis as well as dense calcified atherosclerosis surrounding the origin of the right renal arteries with significant plaque protrusion into the aortic lumen. This also revealed the right kidney was located in the pelvis with a significant downward angle and revealed a dual arterial supply with the majority of the kidney supplied by the more inferior vessel which had no significant atherosclerosis. The superior aspect of the kidney was supplied by the superior vessel which had the significant atherosclerosis at its origin. Contrast transit through this vessel was significantly delayed compared to the more inferior vessel and it appeared as if this portion of the kidney was smaller in overall volume than that fed by the inferior vessel. The Omni Flush catheter also advanced into the left renal artery and selective imaging revealed mild stenosis at the origin less than 50%. Given the downward trajectory of the right renal artery was felt that femoral access would not be feasible to track or intervention efforts even if able to cannulate so the left radial artery was accessed with a micropuncture needle wire which was then exchanged for a slender sheath. Patient was then heparinized to circulate 3 minutes after which the glide advantage wire was advanced via the left radial access traversing into the arch of the aorta. From this position using a pigtail catheter and the glide advantage wire we would navigate into the descending thoracic aorta advancing our wire and catheter down to the visceral segment. 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 This was focused mainly on the right side of aorta and deflected our equipment towards the left making approach to the right renal artery even more difficult. It was felt that this was at least with an effort so the pigtail catheter and short sheath were then exchanged for a 6 [place] Islander Halo sheath which was advanced over the wire and positioned in the visceral segment of the aorta. Using a multitude of wi (more content not included)... Normal [facility] Type AND Screen - PAT ONLYon 10-07-2024 ABO and Rh group Nom (Bld) Blood group A Rh(D) positive Normal [facility] Comment on above: Order Comment: No N N S AORTAGRAM Performed By: #### L 100.0500, BTSPAT, L500.2500 #### [facility] [address] [place], [place], [id number] [facility] SCREEN[facility]on 09-25-2024 [facility] SCREENING * * *Final Report* * * DATE OF EXAM: Sep 25 2024 1:07PM AJ [id number] - [facility] SCREENING / PROCEDURE REASON: Visit for screening mammogram * * * * Physician Interpretation * * * * RESULT: [address] [address] [place] [address] #[id number] - [facility] SCREENING HISTORY: Patient is 79 years old and is seen for screening and is asymptomatic in both breasts. The patient has a history of cervical cancer at age 33. COMPARISON STUDIES: The present examination has been compared to prior imaging studies dated 06/18/2019 (mammogram), 05/31/2021 (mammogram), 06/11/2022 (mammogram) and 08/08/2023 (mammogram). MAMMOGRAM TECHNIQUE: The study was acquired using full field digital technology and interpreted from soft copy. Computer-aided detection was utilized by the radiologist in the interpretation of this examination. MAMMOGRAM FINDINGS: The breasts are heterogeneously dense, which may obscure small masses. No suspicious masses, calcifications or other abnormalities are seen in either breast. There are no significant changes from the prior study. IMPRESSION: There are no suspicious mammographic findings in either breast. Routine screening mammogram is recommended. Annual mammogram will be due in 1 year. BI-RADS Category 1: Negative RISK: Based on the Tyrer-Cuzick (TC) risk assessment model, this patient has a 2.2% lifetime risk of developing breast cancer, meaning they are at average risk for developing breast cancer. However, this is only an estimate based on available history provided on the patient's questionnaire. We encourage all patients to talk with their providers about these results, further recommendations for managing breast health, and appropriate supplemental screening options if the patient has dense breast tissue. Interpreting Radiologist: Umu Cade M.D. Electronically signed on: 09/28/2024 Veterans Adviser: MIHIR Transcribe Date/Time: Sep 25 2024 12:52P Dictated by: UMU CADE MD This examination was interpreted and the report reviewed and electronically signed by: UMU CADE MD on Sep 28 2024 4:50PM EST [id number] Normal [facility] MR/BMS.BVSon 08-27-2024 MR/BMS.BVBigg [facility] Surgery [address] [place] [address] OFFICE VISIT Date of Service: 08/27/24 MR#: [id number] Acct: [id number] Name: ALVARADO COHEN Rep #: [id number] : 1945 Provider: Dr. Porfirio Mei MD Age/Sex: 79/F Location: [facility] Status: Signed Intake Vital Signs 03/21/23 17:53 08/27/24 13:12 Height 5 ft 3 in Weight: 122 lb BP 197/72 H Blood Pressure Location Lt brachial Position Sitting Respiration 14 Pulse 72 Pulse Source Monitor Temp 98.4 F Temp Source Temporal Pulse Oximetry (%) 98 Oxygen Delivery Method room air Intake Visit Reasons: STENOSIS RT RENAL ARTERY Chief Complaint: establish care Is patient in pain?: No Allergies No Known Allergies Allergy (Verified 08/27/24 13:16) Medications ???Medication ???Instructions ???Recorded ???Confirmed ???Type amlodipine 10 mg tablet 10 mg PO DAILY 03/21/23 08/27/24 History calcium carbonate (Calcium 600) 1,200 mg PO QDAY 08/27/24 08/27/24 History chlorthalidone 25 mg tablet 25 mg PO QDAY 08/27/24 08/27/24 History hydrochlorothiazide 12.5 mg capsule 25 mg PO DAILY 08/27/24 08/27/24 History lisinopril 40 mg tablet 40 mg PO DAILY 08/27/24 08/27/24 History metoprolol succinate 50 mg 50 mg PO BID 08/27/24 08/27/24 History tablet,extended release 24 hr multivitamin (Daily Multi-Vitamin 1 tab PO QAM 08/27/24 08/27/24 History tablet) Is last menstrual period known: No Post menopausal: Yes Patient : No Have you fallen in the past year?: No PFSH Medical History Renal artery stenosis HTN (hypertension) Surgical History H/O cone biopsy of cervix ( 1977) Family History Other Asthma Cancer Hypertension Social History Smoking Status: Heavy Smoker (>10/day) Tobacco: How many years used: 40 quit status: considering quitting HPI HPI HPI: ALVARADO COHEN, is a 79 F who presents to the office today for evaluation of worsening hypertension refractory to multiple medications. Had been on antihypertensive medication for many years and stable until about 2 years ago. Has had several medication addition and changes and remains poorly controlled. She has had a duplex that reveals >60% right renal stenosis. To her knowledge her laboratory work is normal. She is a smoker. No other medical or surgical history. Does not take any antiplatelet at this time. ROS General General: No weight change, appetite, fatigue, colon cancer, breast cancer or weakness HEENT HEENT: No difficulty swallowing, eye injury, eye surgery, swollen glands or hoarseness Endo Endocrine: No thyroid disease, diabetes mellitus, thyroid cancer, Hair loss, heat intolerance or cold intolerance Skin Skin: No rash or changing moles Musc Musculoskeletal: Yes back problems; No arthritis, rheumatoid arthritis, gout or joint pain Cardio Cardiovascular: Yes high blood pressure; No murmur, pacemaker, heart disease, atrial fibrillation, heart attack, heart stent, palpitations, shortness of breat with exertion or chest pain Psych Psychiatric: No depression, anxiety or hearing voices Resp Respiratory: No shortness of breath, No sleep apnea, No cough, No COPD, No asthma, No emphysema and No wheezing Gastro Gastrointestinal: No abdominal pain, No nausea or vomiting, No diarrhea, No constipation, No blood in stool, No acid reflux, Yes hemorrhoids, No ulcers, No gallbladder problem and No black,tarry stoo ls Braden Hematologic: No blood thinners, No blood disorders, No bleeding, No anemia and No blood clots Neuro Neurologic: No system reviewed and no additional complaints, except as documented, No as per HPI, No abnormal gait, No abnormal hearing, No abnormal movements, No abnormal speech, No behavioral changes, No burning sensations, No confusion, No convulsions, No disequilibrium, No dizziness, No localized weakness, No frequent falls, No headache(s), No lack of coordination, No loss of vision, No memory loss, No numbness, No other visual disturbances, No radicular pain, No restless legs, No sensory deficit, No syncope, No tingling, No tremor(s), No weakness and No other Exam Const General: cooperative, healthy appearing, comfortable, no acute distress and well developed Nutritional Appearance: well nourished Orientation: alert, awake and oriented x3 HENMT Head: normocephalic and atraumatic Ears: hearing grossly normal bilaterally Nose: external nose normal Eyes General: appearance normal, both eyes and all related structures EOM: EOM intact bilaterally Neck Neck: normal visual inspection, full ROM and (more content not included)... [facility] Office Visit ([facility] ) ALVARADO COHEN ([id number]) 1945 F Date Time Provider Department 07/24/24 11:00 AM ALLIE LYNCH [facility] During your visit today, we recorded the following information about you: Temperature Pulse Respiration Blood pressure 96.4 degrees 69/minute 18/minute 210/64 Weight 55 kg Allie Lynch APRN.CNP 07/24/2024 11:37 AM Signed Subjective Came in concerned about a wound that she has on her right thumb. Patient says she hit it on a cheese rater. Patient says it has not seemed to stop bleeding since yesterday. Is also aware that her blood pressure is high says that her physicians are in the process of dealing with it and it has been bad for years. Patient is going to a specialist. Patient has no symptoms related to the high blood pressure. Patient also has a laceration on the left index finger. Patient says this was with a knife last night. Patient said both happened while she was trying to make dinner. She said the one on the left finger seems to have stopped bleeding. The history is provided by the patient. No speech language specialist was used. Laceration Review of Systems Constitutional: Negative. Skin: Negative. Objective Physical Exam Constitutional: Appearance: Normal appearance. Pulmonary: Effort: Pulmonary effort is normal. Musculoskeletal: Hands: Comments: Yellow area Lora clean laceration edges well-approximated no signs of infection. Purple area lora an avulsion very small maybe half a centimeter in diameter. It is continuously bleeding. Neurological: Mental Status: She is alert. PAST MEDICAL HISTORY Diagnosis Date BENIGN HYPERTENSION 09/11/2005 Benign hypertensive heart disease without heart failure Disorder of bone and cartilage, unspecified Diverticulosis of colon (without mention of hemorrhage) Hyperlipidemia LDL goal < 100 01/13/2013 Hypokalemia 02/26/2014 Internal hemorrhoids without mention of complication OSTEOPOROSIS NOS 08/26/2007 Tobacco abuse 10/11/2010 VITAMIN D DEFICIENCY NOS 09/03/2007 PAST SURGICAL HISTORY Procedure Laterality Date COLONOSCOPY FLX DX W/COLLJ SPEC WHEN PFRMD 02/18/07 COLONOSCOPY FLX DX W/COLLJ SPEC WHEN PFRMD 06/10/2017 Colonoscopy ALLERGIES Codeine, Spironolactone, and Sulfa (Sulfonamide Antibiotics) MEDICATIONS hydrALAZINE (APRESOLINE) 25 mg tablet Take 1 tablet by mouth two times a day. lisinopril (ZESTRIL) 30 mg tablet Take 1 tablet by mouth two times a day. chlorthalidone (HYGROTON) 25 mg tablet Take 1 tablet by mouth once daily. amLODIPine (NORVASC) 10 mg tablet Take 1 tablet by mouth once daily. metoprolol succinate ER (TOPROL XL) 50 mg 24 hr tablet Take 1 tablet by mouth two times a day. aspirin 325 mg tablet Take 325 mg by mouth as needed. CALCIUM 600 + D 600 MG-125 UNIT TAB Take one(1) tablet twice daily. FAMILY HISTORY Problem Relation Age of Onset Psychiatry Mother ANXIETY Cancer Father RENAL No Known Problems Brother Arthritis Paternal Grandmother Hypertension Paternal Grandfather Social History Tobacco Use Smoking status: Every Day Current packs/day: 1.00 Average packs/day: 1 pack/day for 45.0 years (45.0 ttl pk-yrs) Types: Cigarettes Smokeless tobacco: Never Vaping Use Vaping status: Never Used Substance Use Topics Alcohol use: No Drug use: No ASSESSMENT/PLAN: 1. Open wound - ICD9: 879.8, ICD10: T14.8XXA Presents with cleansed with clobetasol and sterile water. No foreign bodies noted. Silver nitrate was used on the right thumb. Patient tolerated well. Bleeding has seem to stop. Instructed patient to watch for infection. Patient was okay with this care plan. Both wounds were redressed. Allie Lynch APRN.CORPORATE TRAVEL EXPERT Allergies As of Date: 07/24/2024 Noted Allergy Reaction CODEINE 09/10/2005 SPIRONOLACTONE 07/08/2019 14 - Other: See Comments Comments: lightheadedness SULFA (SULFONAMIDE ANTIBIOTICS) 09/10/2005 Date Reviewed: 07/24/2024 Reviewed by: Nelly Tate LPN - Fully Assessed Reason for Visit: Laceration [1747] Cmt: R thumb grated some skin off with cheese grater, and Left index finger with knife x last night Issues with bleeding Primary Visit Diagnosis:Open wound [T14.8XXA] Order(s):[] silver nitrate applicators 1 Applicator stickDisp: Rfl: Prescriptions as of 07/24/2024 - hydrALAZINE (APRESOLINE) 25 mg tablet Take 1 tablet by mouth two times a day. - lisinopril (ZESTRIL) 30 mg tablet Take 1 tablet by mouth two times a day. - chlorthalidone (HYGROTON) 25 mg tablet Take 1 tablet by mouth once daily. - amLODIPine (NORVASC) 10 mg tablet Take 1 tablet by mouth once daily. - metoprolol succinate ER (TOPROL XL) 50 mg 24 hr tablet Take 1 tablet by mouth two times a day. - aspirin 325 mg tablet Take 325 mg by mouth as needed. - CALCIUM 600 + D 600 MG-125 UNIT TAB Take one(1) tablet twice daily. Problem List As Of (more content not included)... Normal [facility] Renal Artery Duplex Ultrasou ndon 05-20-2024 Renal Artery Duplex Ultrasound [facility] [address] [place] [address] Renal Artery Duplex Ultrasound 05/20/24 0807 MR#: [id number] Acct: [id number] Name: ALVAARDO COHEN Rep #: [id number] : 1945 78 From: Porfirio Mei MD Attending Dr: Dr. Nora Govea, DO Status: REG CLI Ordering Dr: Nora Govea DO Date: 05/20/24 Location: [facility] Sex: F C Admitted: Reason For Study: HTN Right Renal Artery Left Renal Artery Right renal artery ostium Left renal artery ostium 160.0/18.4 567.5/111.7 RSV/EDV. PSV/EDV. Right renal artery proximal Left renal artery proximal PSV/EDV 605.8/95.8 PSV/EDV. 128.4/24.5 . Right renal artery mid 81.8/13.6 Left renal artery mid 128.4/20.8 PSV/EDV. PSV/EDV . Right renal artery distal Left renal artery distal 119.5/18.6 156.7/18.4 PSV/EDV. PSV/EDV. Right RAR 7.14. Left RAR 1.90. Right Renal Parenchyma Left Renal Parenchyma Upper Pole Medula 20.3/3.8 PSV/EDV. Left upper pole medulla 69.5/12.8 Right upper pole medulla EDR 0.20 . PSV/EDV . Right upper pole medulla R.I. Left upper pole medulla EDR 0.20 . 0.82 . Left upper pole medulla R.I. 0.82 . Upper [place] Cortx 14.2/3.8 PSV/EDV. UP Cortex 30.0/5.5 PSV/EDV. Right upper pole cortex EDR 0.30 . Left upper pole cortex EDR 0.20 . Right upper pole cortex R.I. 0.74 . Left upper pole cortex R.I. 0.82 . Right lower Pole medulla 33.3/4.7 Left lower Pole medulla 42.3/8.5 PSV/EDV . PSV/EDV . Right lower pole medulla EDR 0.10 . Left lower pole medulla EDR 0.20 . Right lower pole medulla R.I. Left lower pole medulla R.I. 0.80 . 0.86 . Lower Pole Cortx 18.4/4.2 PSV/EDV. Lower Pole Cortex 18.5/5.8 PSV/EDV. Left lower pole cortex EDR 0.20 . Right lower pole cortex EDR 0.30 . Left lower pole cortex R.I. 0.77 . Right lower pole cortex R.I. 0.68 . Left Renal Hilar Right Renal Hilar LT Hilar avg 127.3/17.4 PSV/EDV . Right Hilar avg 64.4/9.5 PSV/EDV. Left hilar acceleration time 40 Right hilar acceleration time 40 m/sec. m/sec. Left Renal Dimensions Right Renal Dimensions Left kidney size 9.50 cm . Right kidney size 8.14 cm . Left cortical dimension 1.3 cm . Right cortical dimension 1.29 cm . Aorta Proximal abdominal aorta 1.42 cm . Proximal abdominal aorta peak systolic velocity is 84.8 cm/sec . Distal abdominal aorta 1.12 cm . Distal abdominal aorta peak systolic velocity is 288.5 cm/sec . VL/Renal Artery Duplex Ultrasound Interpretation Summary Right renal artery patent with > 60% stenosis. Left renal artery patent with normal velocities and no evidence of stenosis. Right renal vein patent. Left renal vein patent. Right kidney diminshed in size. Left kidney normal in size. Ordering Physician: Nora Govea Referring Physician: Nora Govea Performed By: Jasson Stephenson RVT and Student 05/21/241707 Date Porfirio Mei MD CC: Dr. Nora Govea DO; Dr. Glenny Luque MD Date Dictated: 05/20/24 08 Date Transcribed: 05/21/241707 Veterans Adviser: Signed [facility] SCREENING 08-08-2023 [facility] Vital Signs Date Time Vital Sign Value Performing Clinician Facility 03-22-2025 15:20-0400 Diastolic blood pressure 68 mm[Hg] Glenny Luque MD Work Phone: [facility] 03-22-2025 15:20-0400 Systolic blood pressure 164 mm[Hg] Glenny Luque MD Work Phone: [facility] 03-22-2025 15:16-0400 Body mass index (BMI) [Ratio] 21.9 kg/m2 Glenny Luque MD Work Phone: [facility] 03-22-2025 15:16-0400 Body weight 54.3 kg Glenny Luque MD Work Phone: [facility] 03-22-2025 15:16-0400 Heart rate 62 /min Glenny Luque MD Work Phone: [facility] 03-22-2025 15:16-0400 Respiratory rate 18 /min Glenny Luque MD Work Phone: [facility] 11-26-2024 13:33-0500 Diastolic blood pressure 64 mm[Hg] Glenny Luque MD Work Phone: [facility] 11-26-2024 13:33-0500 Systolic blood pressure 166 mm[Hg] Glenny Luque MD Work Phone: [facility] 11-26-2024 13:30-0500 Body height 157.5 cm Glenny Luque MD Work Phone: [facility] 11-26-2024 13:30-0500 Body mass index (BMI) [Ratio] 22.18 kg/m2 Glenny Luque MD Work Phone: [facility] 11-26-2024 13:30-0500 Body weight 55 kg Glenny Luque MD Work Phone: [facility] 11-26-2024 13:30-0500 Heart rate 70 /min Glenny Luque MD Work Phone: [facility] 11-26-2024 13:30-0500 Respiratory rate 18 /min Glenny Luque MD Work Phone: [facility] 07-24-2024 11:00-0400 Body mass index (BMI) [Ratio] 21.48 kg/m2 Allie Lynch APRN.CORPORATE TRAVEL EXPERT Work Phone: [facility] 07-24-2024 11:00-0400 Body temperature 96.4 [degF] Allie Lynch APRN.CORPORATE TRAVEL EXPERT Work Phone: [facility] 07-24-2024 11:00-0400 Body weight 55 kg Allie Lynch APRN.CORPORATE TRAVEL EXPERT Work Phone: [facility] 07-24-2024 11:00-0400 Diastolic blood pressure 64 mm[Hg] Allie Lynch APRN.CORPORATE TRAVEL EXPERT Work Phone: [facility] Comment on above: BP checked x 2 210/7 3 07-24-2024 11:00-0400 Heart rate 69 /min Allie Lynch APRN.CORPORATE TRAVEL EXPERT Work Phone: [facility] 07-24-2024 11:00-0400 Respiratory rate 18 /min Allie Lynch APRN.CORPORATE TRAVEL EXPERT Work Phone: [facility] 07-24-2024 11:00-0400 SaO2% (BldA) [Mass fraction] 99 % Allie Lynch APRN.CORPORATE TRAVEL EXPERT Work Phone: [facility] 07-24-2024 11:00-0400 Systolic blood pressure 210 mm[Hg] Allie Lynch APRN.CORPORATE TRAVEL EXPERT Work Phone: [facility] Comment on above: BP checked x 2 210/7 3 03-20-2024 10:10-0400 Diastolic blood pressure 67 mm[Hg] Hans Mahendra MACHINIST CLASS B.CORPORATE TRAVEL EXPERT Work Phone: [facility] Comment on above: BP CHASITY AVERAGE 03-20-2024 10:10-0400 Heart rate 63 /min Hans Mahendra MACHINIST CLASS B.CORPORATE TRAVEL EXPERT Work Phone: [facility] 03-20-2024 10:10-0400 Systolic blood pressure 200 mm[Hg] Hans Amhendra MACHINIST CLASS B.CORPORATE TRAVEL EXPERT Work Phone: [facility] Comment on above: BP CHASITY AVERAGE 03-20-2024 09:52-0400 Body mass index (BMI) [Ratio] 21.86 kg/m2 Hans Mahendra MACHINIST CLASS B.CORPORATE TRAVEL EXPERT Work Phone: [facility] 03-20-2024 09:52-0400 Body weight 55.97 kg Hans Mahendra MACHINIST CLASS B.CORPORATE TRAVEL EXPERT Work Phone: [facility] 03-20-2024 09:52-0400 Respiratory rate 16 /min Hans Mahendra MACHINIST CLASS B.CORPORATE TRAVEL EXPERT Work Phone: [facility] 03-20-2024 09:52-0400 SaO2% (BldA) [Mass fraction] 99 % Hans Mahendra MACHINIST CLASS B.CORPORATE TRAVEL EXPERT Work Phone: [facility] 02-17-2024 11:30-0400 Diastolic blood pressure 67 mm[Hg] Hans Mahendra MACHINIST CLASS B.CORPORATE TRAVEL EXPERT Work Phone: [facility] 02-17-2024 11:30-0400 Heart rate 71 /min Hans Mahendra MACHINIST CLASS B.CORPORATE TRAVEL EXPERT Work Phone: [facility] 02-17-2024 11:30-0400 Systolic blood pressure 188 mm[Hg] Hans Mahendra MACHINIST CLASS B.CORPORATE TRAVEL EXPERT Work Phone: [facility] 02-17-2024 11:23-0400 Body weight 56.16 kg Hans Mahendra MACHINIST CLASS B.CORPORATE TRAVEL EXPERT Work Phone: [facility] 02-17-2024 11:23-0400 Respiratory rate 16 /min Hans Mahendra MACHINIST CLASS B.CORPORATE TRAVEL EXPERT Work Phone: [facility] 02-17-2024 11:23-0400 SaO2% (BldA) [Mass fraction] 99 % Hans Mccray MACHINIST CLASS B.CORPORATE TRAVEL EXPERT Work Phone: [facility] 06-12-2023 12:30-0400 Body weight 55.34 kg Laurel Tannhof MACHINIST CLASS B.CORPORATE TRAVEL EXPERT Work Phone: [facility] 06-12-2023 12:30-0400 Diastolic blood pressure 76 mm[Hg] Laurel Tannhof MACHINIST CLASS B.CORPORATE TRAVEL EXPERT Work Phone: [facility] 06-12-2023 12:30-0400 Heart rate 75 /min Laurel Tannhof MACHINIST CLASS B.CORPORATE TRAVEL EXPERT Work Phone: [facility] 06-12-2023 12:30-0400 Respiratory rate 16 /min Laurel Tannhof MACHINIST CLASS B.CORPORATE TRAVEL EXPERT Work Phone: [facility] 06-12-2023 12:30-0400 SaO2% (BldA) [Mass fraction] 98 % Laurel Tannhof MACHINIST CLASS B.CORPORATE TRAVEL EXPERT Work Phone: [facility] 06-12-2023 12:30-0400 Systolic blood pressure 180 mm[Hg] Laurel Tannhof MACHINIST CLASS B.CORPORATE TRAVEL EXPERT Work Phone: [facility] 05-08-2023 12:50-0400 Body weight 55.79 kg Laurel Tannhof MACHINIST CLASS B.CORPORATE TRAVEL EXPERT Work Phone: [facility] 05-08-2023 12:50-0400 Diastolic blood pressure 80 mm[Hg] Laurel Tannhof MACHINIST CLASS B.CORPORATE TRAVEL EXPERT Work Phone: [facility] 05-08-2023 12:50-0400 Heart rate 58 /min Laurel Tannhof MACHINIST CLASS B.CORPORATE TRAVEL EXPERT Work Phone: [facility] 05-08-2023 12:50-0400 Respiratory rate 16 /min Laurel Tannhof MACHINIST CLASS B.CORPORATE TRAVEL EXPERT Work Phone: [facility] 05-08-2023 12:50-0400 SaO2% (BldA) [Mass fraction] 97 % Laurel Tannhof MACHINIST CLASS B.CORPORATE TRAVEL EXPERT Work Phone: [facility] 05-08-2023 12:50-0400 Systolic blood pressure 160 mm[Hg] Laurel Tannhof MACHINIST CLASS B.CORPORATE TRAVEL EXPERT Work Phone: [facility] 04-08-2023 13:28-0400 Body weight 55.34 kg Laurel Tannhof MACHINIST CLASS B.CORPORATE TRAVEL EXPERT Work Phone: [facility] 04-08-2023 13:28-0400 Diastolic blood pressure 60 mm[Hg] Laurel Tannhof MACHINIST CLASS B.CORPORATE TRAVEL EXPERT Work Phone: [facility] 04-08-2023 13:28-0400 Heart rate 77 /min Laurel Tannhof MACHINIST CLASS B.CORPORATE TRAVEL EXPERT Work Phone: [facility] 04-08-2023 13:28-0400 Respiratory rate 6 /min Laurel Tannhof MACHINIST CLASS B.CORPORATE TRAVEL EXPERT Work Phone: [facility] 04-08-2023 13:28-0400 SaO2% (BldA) [Mass fraction] 97 % Laurel Tannhof MACHINIST CLASS B.CORPORATE TRAVEL EXPERT Work Phone: [facility] 04-08-2023 13:28-0400 Systolic blood pressure 140 mm[Hg] Laurel Tannhof MACHINIST CLASS B.CORPORATE TRAVEL EXPERT Work Phone: [facility] 08-27-2022 10:05-0400 Body weight 54.88 kg Laurel Tannhof MACHINIST CLASS B.CORPORATE TRAVEL EXPERT Work Phone: [facility] 08-27-2022 10:05-0400 Diastolic blood pressure 80 mm[Hg] Laurel Tannhof MACHINIST CLASS B.CORPORATE TRAVEL EXPERT Work Phone: [facility] 08-27-2022 10:05-0400 Heart rate 83 /min Laurel Tannhof MACHINIST CLASS B.CORPORATE TRAVEL EXPERT Work Phone: [facility] 08-27-2022 10:05-0400 Respiratory rate 16 /min Laurel Tannhof MACHINIST CLASS B.CORPORATE TRAVEL EXPERT Work Phone: [facility] 08-27-2022 10:05-0400 SaO2% (BldA) [Mass fraction] 99 % Laurel Tejal MACHINIST CLASS B.CORPORATE TRAVEL EXPERT Work Phone: [facility] 08-27-2022 10:05-0400 Systolic blood pressure 160 mm[Hg] Laurel Toure MACHINIST CLASS B.CORPORATE TRAVEL EXPERT Work Phone: [facility] Encounters Encounter Date Encounter Type Care Provider Facility Start: 04-22-2025 End: 04-28-2025 Telephone encounter Glenny Luque MD Work Phone: [facility] Comment on above: medical consultation form ([facility]) Start: 04-07-2025 End: 04-07-2025 ambulatory Faith Larkin [facility] [place] Start: 04-07-2025 End: 04-07-2025 Patient encounter procedure Faith Larkin MA [facility] [place] Comment on above: Population Health Na vigation Outreach [facility] Start: 04-01-2025 End: 04-01-2025 ambulatory GLENNY LUQUE Facility:[facility] Start: 03-22-2025 End: 03-22-2025 Office outpatient visit 25 minutes Glenny Luque MD Work Phone: [facility] Comment on above: Essential hypertensi on, benign (Primary Dx); Resistant hypertension; Uncontrolled hypertension; Osteoporosis, unspecified osteoporosis type, unspecified pathological fracture presence; Claudication; Tobacco use disorder Start: 03-22-2025 End: 03-22-2025 ambulatory GLENNY LUQUE Facility:[facility] Start: 03-03-2025 End: 03-03-2025 ambulatory Faith Larkin MA [facility] [place] Start: 03-03-2025 End: 03-03-2025 Patient encounter procedure Faith Larkin MA [facility]? [facility] Comment on above: Population Health Na vigation Outreach ([facility] Start: 02-22-2025 End: 02-22-2025 ambulatory GLENNY LUQUE Facility:[facility] Start: 01-25-2025 End: 01-25-2025 Refill Glenny Luque MD Work Phone: [facility] Comment on above: Refill Request Start: 01-04-2025 End: 03-06-2025 Follow-up encounter Glenny Luque MD Work Phone: Family [facility] Start: 01-01-2025 End: 01-01-2025 ambulatory GLENNY LUQUE Facility:[facility] Start: 01-01-2025 End: 01-01-2025 Subsequent hospital visit by physician Bone Density [facility] Work Phone: Radiology Comment on above: Age-related osteopor osis without current pathological fracture [M81.0] Start: 12-09-2024 End: 12-09-2024 ambulatory GLENNY LUQUE Facility:[facility] Start: 12-09-2024 Patient encounter procedure GLENNY LUQUE [facility] Start: 11-26-2024 End: 11-26-2024 ambulatory GLENNY LUQUE Facility:[facility] Start: 11-26-2024 End: 11-26-2024 Patient encounter procedure Glenny Luque MD Work Phone: [facility] [place] Comment on above: Encounter for Medica re annual wellness exam (Primary Dx); Uncontrolled hypertension; Hyperlipidemia with target LDL less than 100; Age-related osteoporosis without current pathological fracture; Tobacco use disorder; Screening for depression; Encounter for screening examination for other mental health and behavioral disorders; Leg fatigue; Encounter for screening for osteoporosis; Osteoporosis, unspecified osteoporosis type, unspecified pathological fracture presence; Claudication (HCC) Start: 10-21-2024 End: 10-21-2024 ambulatory Carissa Ordonez Facility[facility] Start: 10-07-2024 End: 10-07-2024 ambulatory Porfirio Mei Facility:[facility] Start: 09-25-2024 End: 09-25-2024 ambulatory GLENNY LUQUE Facility:[facility] Start: 09-25-2024 End: 09-25-2024 Subsequent hospital visit by physician Screen Mammo [facility] Comment on above: Visit for screening mammogram [Z12.31] Start: 09-18-2024 End: 09-18-2024 ambulatory Jelani [facility] Start: 09-18-2024 End: 09-18-2024 Patient encounter procedure Jelani [facility] Comment on above: Population Health Na vigation Outreach ([facility] [employer] list 2023/) Start: 08-27-2024 End: 08-27-2024 ambulatory Glenny Luque Facility:[facility] Start: 07-24-2024 End: 07-24-2024 ambulatory GLENNY LUQUE Facility:[facility] Start: 07-24-2024 End: 07-24-2024 Patient encounter procedure Allie Lynch APRN.CORPORATE TRAVEL EXPERT Work Phone: [facility] Comment on above: Open wound (Primary Dx) Start: 05-20-2024 ambulatory [facility] Facility: [facility] Start: 05-20-2024 End: 05-20-2024 ambulatory [facility] Facility:[facility] Start: 03-26-2024 Telephone encounter Hans youngblood APRN.CORPORATE TRAVEL EXPERT Work Phone: [facility] Comment on above: fax referral to Dr Alexander Govea Start: 03-23-2024 Refill Hans GILLETTE RN.CORPORATE TRAVEL EXPERT Work Phone: [facility] Comment on above: Refill Request Medication Problem Start: 03-20-2024 End: 03-20-2024 Office outpatient visit 15 minutes Hans Mccray APRN.CORPORATE TRAVEL EXPERT Work Phone: [facility] Comment on above: Essential hypertensi on, benign (Primary Dx); Uncontrolled hypertension Start: 03-10-2024 ambulatory Glenny bunch MD Work Phone: [facility] Comment on above: Ultrasound results Start: 03-10-2024 E-mail encounter fro m caregiver Glenny [facility]que MD [facility] Start: 03-10-2024 Telephone encounter Hans youngblood APRN.CORPORATE TRAVEL EXPERT Work Phone: [facility] Comment on above: Results Start: 03-09-2024 Refill Hans GILLETTE RN.CORPORATE TRAVEL EXPERT Work Phone: [facility] [place] Comment on above: Refill Request Opened In Error Start: 03-06-2024 End: 03-06-2024 Subsequent hospital visit by physician Us [facility] Mob 2 Work Phone: Radiology Comment on above: Essential hypertensi on, benign [I10] Start: 02-18-2024 Telephone encounter Hans youngblood APRN.CORPORATE TRAVEL EXPERT Work Phone: [facility] Comment on above: Results Start: 02-17-2024 End: 02-17-2024 Office outpatient visit 15 minutes Hans Mccray APRN.CORPORATE TRAVEL EXPERT Work Phone: [facility] [place] Comment on above: Essential hypertensi on, benign (Primary Dx); Resistant hypertension Start: 02-06-2024 Refill Glenny bunch MD Work Phone: [facility] [place] Comment on above: Refill Request Start: 01-11-2024 Refill Hans GILLETTE RN.CORPORATE TRAVEL EXPERT Work Phone: [facility] Comment on above: Refill Request Start: 09-02-2023 Refill Laurel Toure APRN.CORPORATE TRAVEL EXPERT Work Phone: [facility] [place] Comment on above: Med Change Request Start: 08-08-2023 Documentation procedure Mammog kelechi Coordinator [facility] Start: 08-08-2023 Letter encounter Mammography Coordinator [facility] Department Start: 08-08-2023 End: 08-08-2023 Subsequent [facility] visit [facility] Comment on above: Visit for screening mammogram [Z12.31] Start: 07-19-2023 Orders Only Glenny bunch MD Work Phone: [address] [place] [address] Comment on above: Visit for screening mammogram (Primary Dx) Start: 07-11-2023 Refill Laurel Toure APRN.CORPORATE TRAVEL EXPERT Work Phone: [facility] Comment on above: Refill Request Start: 07-09-2023 Refill Glenny bunch MD Work Phone: [facility] Comment on above: Refill Request Start: 06-12-2023 ambulatory Laurel Toure MACHINIST CLASS B.NIKKI Work Phone: [facility] Comment on above: BP post visit 06/12/23 Start: 06-12-2023 End: 06-12-2023 Patient encounter procedure Laurel Toure MACHINIST CLASS B.CORPORATE TRAVEL EXPERT Work Phone: [facility] Comment on above: Uncontrolled hyperte nsion (Primary Dx) Start: 05-13-2023 Telephone encounter Laurel camp MACHINIST CLASS B.CORPORATE TRAVEL EXPERT Work Phone: [facility] Comment on above: Consult Start: 05-08-2023 End: 05-08-2023 Patient encounter procedure Laurel Toure MACHINIST CLASS B.CORPORATE TRAVEL EXPERT Work Phone: [facility] Comment on above: Uncontrolled hyperte nsion (Primary Dx) Start: 04-08-2023 End: 04-08-2023 Patient encounter procedure Laurel Toure MACHINIST CLASS B.NIKKI Work Phone: [facility] [place] Comment on above: Essential hypertensi on, benign (Primary Dx) Start: 08-27-2022 End: 08-27-2022 Patient encounter procedure Laurel Toure MACHINIST CLASS B.NIKKI Work Phone: [facility] Comment on above: Essential hypertensi on, benign (Primary Dx); Hyperlipidemia with target LDL less than 100; Tobacco abuse Start: 06-14-2022 ambulatory Indio GILLETTE RN.RODRIGUEZ JORDAN Work Phone: Neurology Comment on above: Results Start: 06-14-2022 E-mail encounter fro m caregiver Indio Robledo APRN.NIKKI, RODRIGUEZ Work Phone: [facility] Start: 06-12-2022 Documentation procedure Mammog kelechi Coordinator [facility] Start: 06-12-2022 Letter encounter Mammography Coordinator [facility] Department Start: 06-11-2022 End: 06-11-2022 Subsequent hospital visit by physician Screen Mammo [facility] M[facility]ogram Comment on above: Visit for screening mammogram [Z12.31] Start: 06-08-2022 Orders Only Indio GILLETTE RN.RODRIGUEZ JORDAN Work Phone: [facility] Comment on above: Visit for screening mammogram (Primary Dx) Procedures Date Procedure Procedure Detail Performing Clinician Start: 08-08-2023 Screening mammograph y bi 2-view breast inc cad Glenny Luque MD Work Phone: Start: 06-21-2021 Adult depression scr eening assessment Indio Robledo MACHINIST CLASS B.CORPORATE TRAVEL EXPERT, DNP Work Phone: Start: 06-10-2017 Colonoscopy Indio brown APRN.NIKKI, RODRIGUEZ Work Phone: Plan of Treatment Date Care Activity Detail Author Start: 07-16-2028 Urine microalbumin profile [facility] Start: 04-01-2028 Diabetes Screening Diabetes Screenwi g [facility] Start: 02-23-2028 [facility] Start: 12-09-2027 Diabetes Screening [facility] Start: 06-10-2027 Colonoscopy COLONOSCOPY [facility] Start: 06-10-2027 COLORECTAL CANCER SCREENING COLORECTAL CANCER SCREENING [facility] Start: 02-16-2027 Diabetes Screening Diabetes Screenin g [facility] Start: 01-01-2027 Screening for osteoporosis Bone Density Screening [facility] Start: 07-06-2026 LIPID SCREEN LIPID SCREEN [facility] Start: 03-22-2026 Annual PCP Team 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 Engineer kimberlee Disease Visit Annual PCP Team Chronic Disease Visit [facility] Start: 03-22-2026 Covid-19 Vaccine ( season) Covid-19 Vaccine () [facility] Comment on above: Postponed from 02/17 (Declined at this time) Start: 11-26-2025 Annual PCP Team 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 [employer] 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 Engineer kimberlee Disease Visit Annual PCP Team Chronic Disease Visit [facility] Start: 11-26-2025 Medicare Annual Wellness Visit Medicare Annual Wellness Visit [facility] Start: 10-19-2025 DIABETES SCREEN DIABETES SCREEN [facility] Start: 10-19-2025 Diabetes Screening Diabetes Screenin g [facility] Start: 03-22-2025 End: 03-22-2025 Patient encounter procedure 03/22/2025 3:20 PM EDT Office Visit [facility] [address] [place] [address] Glenny Luque MD [address] [facility] [place] [address] follow up Family [facility] Comment on above: follow up Start: 03-20-2025 Annual PCP Team 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 Engineer kimberlee Disease Visit Annual PCP Team Chronic Disease Visit [facility] Start: 03-01-2025 End: 03-01-2025 Patient encounter procedure [facility] Debbie [facility] Comment on above: 3 mo f/u HTN Start: 02-17-2025 Covid-19 Vaccine () Covid-19 Vaccine () [facility] Start: 02-16-2025 Annual PCP Team 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 Engineer kimberlee Disease Visit Annual PCP Team Chronic Disease Visit [facility] Start: 01-01-2025 End: 01-01-2025 Patient encounter procedure 01/01/2025 12:30 PM EST Appointment Radiology [address] [place] [id number] Age-related osteoporosis without current pathological fracture [M81.0] Radiology Comment on above: Age-related osteopor osis without current pathological fracture [M81.0] Start: 12-14-2024 End: 12-14-2024 Patient encounter procedure 12/14/2024 2:30 PM EST Office Visit Vascular Surgery [address] [address] Uncontrolled hypertension [I10]; Leg fatigue [R29.898]; Claudication (HCC) [I73.9] Vascular Surgery Comment on above: Uncontrolled hyperte nsion [I10]; Leg fatigue [R29.898]; Claudication (HCC) [I73.9] Start: 11-26-2024 End: 02-25-2025 CBC W Auto Differential panel - Blood COMPLETE BLOOD COUNT AND DIFFERENTIAL Lab Routine Encounter for Medicare annual wellness exam Uncontrolled hypertension Expected: 11/26/2024, Expires: 02/25/2025 [facility] Comment on above: Expected: 11/26/2024 , Expires: 02/25/2025 Start: 11-26-2024 End: 02-25-2025 Comprehensive metabolic 2000 panel - Serum or Plasma COMPREHENSIVE METABOLIC PANEL Lab Routine Encounter for Medicare annual wellness exam Uncontrolled hypertension Hyperlipidemia with target LDL less than 100 Expected: 11/26/2024, Expires: 02/25/2025 [facility] Comment on above: Expected: 11/26/2024 , Expires: 02/25/2025 Start: 11-26-2024 End: 02-25-2025 Lipid 1996 panel - Serum or Plasma LIPID PANEL BASIC Lab Routine Encounter for Medicare annual wellness exam Uncontrolled hypertension Hyperlipidemia with target LDL less than 100 Expected: 11/26/2024, Expires: 02/25/2025 [facility] Comment on above: Expected: 11/26/2024 , Expires: 02/25/2025 Start: 11-09-2024 End: 11-09-2024 Patient encounter procedure 11/09/2024 12:00 PM EST Office Visit Family Debbie [facility] [address] [place] [address] Glenny Luque MD [address] [facility] [place], [place] [id number] AWV is PRIMARY/Follow up [facility] Comment on above: AWV is PRIMARY/Follo w up Start: 11-04-2024 Advance Directive Discussion Advance Directive Discussion [facility] Start: 09-25-2024 End: 09-25-2024 Patient encounter procedure 09/25/2024 12:50 PM EST Appointment Mammogram [address] [place], [place] [address] encounter for routine screening MAMMOGRAM*pended order Glenny Luque MD Mammogram Comment on above: encounter for routin e screening MAMMOGRAM*pended order Glenny Luque MD Start: 07-06-2024 DIABETES SCREEN DIABETES SCREEN [facility] Start: 07-05-2024 Covid-19 Vaccine ( season) Covid-19 Vaccine () [facility] Start: 07-05-2024 Influenza vaccination Influenza Vacc ine (#1) [facility] Start: 06-22-2024 End: 06-22-2024 Patient encounter procedure 06/22/2024 2:40 PM EDT Office Visit Family Debbie [facility] [address] [place], [place] [id number] Glenny Luque MD [address] [place] [address] 3 Month F/U Family Debbie [facility] Comment on above: 3 Month F/U Start: 06-12-2024 ANNUAL PCP TEAM BILL OF LADING CLERK KIMBERLEE DISEASE VISIT ANNUAL PCP TEAM CHRONIC DISEASE VISIT [facility] Start: 05-08-2024 ANNUAL PCP TEAM BILL OF LADING CLERK KIMBERLEE DISEASE VISIT ANNUAL PCP TEAM CHRONIC DISEASE VISIT [facility] Start: 04-08-2024 ANNUAL PCP TEAM BILL OF LADING CLERK KIMBERLEE DISEASE VISIT ANNUAL PCP TEAM CHRONIC DISEASE VISIT [facility] Start: 03-20-2024 End: 03-20-2024 Patient encounter procedure 03/20/2024 10:00 AM EDT Office Visit [facility] [address] [place] [address] Hans Mccray APRN.CORPORATE TRAVEL EXPERT [address] [facility] [place] [address] BP follow up [facility] Debbie [facility] Comment on above: BP follow up Start: 02-17-2024 End: 05-18-2024 ALDOSTERONE/DIRECT RENIN RATIO [facility] Work Phone: Comment on above: Expected: 02/17/2024 , Expires: 05/18/2024 Start: 02-17-2024 End: 05-18-2024 Basic metabolic 2000 panel - Serum or Plasma [facility] Work Phone: Comment on above: Expected: 02/17/2024 (Approximate), Expires: 05/18/2024 Start: 12-10-2023 Covid-19 Vaccine () Covid-19 Vaccine () [facility] Start: 11-04-2023 Advance Directive Discussion Advance Directive Discussion [facility] Start: 11-04-2023 Behavioral Health Screening Behavioral Health Screening [facility] Start: 11-04-2023 Depression Assessment Depression Ass essment [facility] Start: 08-27-2023 ANNUAL PCP TEAM BILL OF LADING CLERK KIMBERLEE DISEASE VISIT ANNUAL PCP TEAM CHRONIC DISEASE VISIT [facility] Start: 07-05-2023 Covid-19 Vaccine () Covid-19 Vaccine () [facility] Start: 07-05-2023 Influenza vaccination [facility] Start: 12-14-2022 COVID-19 VACCINE (7 - Moderna series) COVID-19 VACCINE (7 - Moderna series) [facility] Start: 11-04-2022 ADVANCE DIRECTIVE DISCUSSION ADVANCE DIRECTIVE DISCUSSION [facility] Start: 08-27-2022 End: 10-27-2022 Comprehensive metabolic 2000 panel - Serum or Plasma COMP METABOLIC PANEL Lab Routine Essential hypertension, benign Expected: 08/27/2022, Expires: 10/27/2022 [facility] Work Phone: Comment on above: Expected: 08/27/2022 , Expires: 10/27/2022 Start: 08-27-2022 End: 10-27-2022 Lipid 1996 panel - Serum or Plasma LIPID PANEL BASIC Lab Routine Hyperlipidemia with target LDL less than 100 Expected: 08/27/2022, Expires: 10/27/2022 [facility] Work Phone: Comment on above: Expected: 08/27/2022 , Expires: 10/27/2022 Start: 07-05-2022 Influenza vaccination INFLUENZA (#1) [facility] Start: 06-26-2022 ANNUAL PCP TEAM BILL OF LADING CLERK KIMBERLEE DISEASE VISIT ANNUAL PCP TEAM CHRONIC DISEASE VISIT [facility] Start: 06-26-2022 BP CONTROLLED (<130/80) BP CONTROLLE D (<130/80) [facility] Start: 06-26-2022 Influenza vaccination LUNG CANCER [facility] Comment on above: Postponed from 06/20 (Declined at this time) Start: 06-21-2022 Adult depression screening assessment DEPRESSION SCREENING [facility] Start: 11-04-2021 ADVANCE DIRECTIVE DISCUSSION ADVANCE DIRECTIVE DISCUSSION [facility] Start: 04-09-2018 Screening for osteoporosis Bone Density Screening [facility] Start: 2006 RSV Vaccine (1 - 1-d ose 60+ series) RSV Vaccine (1 - 1-dose 60+ series) [facility] Start: 1996 Influenza vaccination LUNG CANCER [facility] Start: 1996 Screening for malign ant neoplasm of lung Lung Cancer Screening [facility] Start: 1991 COLOGUARD (FIT-DNA) COLOGUARD (FIT-D NA) [facility] Start: [address] [facility]: 1991 FECAL OCCULT BLOOD FECAL OCCULT BLOO D [facility] Start: 1991 SIGMOIDOSCOPY [facility] Start: 1964 Anxiety Screening Anxiety Screening [facility] Start: 1964 Depression Screening Depression Scre ening [facility] End: 12-26-2025 BD DXA TRABECULAR BONE SCORE (TBS) BD DXA TRABECULAR BONE SCORE (TBS) Radiology Routine Age-related osteoporosis without current pathological fracture 1 Occurrences starting 11/26/2024 until 12/26/2025 [facility] Comment on above: 1 Occurrences starti ng 11/26/2024 until 12/26/2025 BD DXA TRABECULAR JOSE NE SCORE (TBS) BD DXA TRABECULAR BONE SCORE (TBS) Radiology Routine Age-related osteoporosis without current pathological fracture 01/01/2025 12:47 PM EST [facility] End: 12-26-2025 DXA Skeletal system.axial Views for bone density DXA-AXIAL SKELETON Radiology Routine Age-related osteoporosis without current pathological fracture 1 Occurrences starting 11/26/2024 until 12/26/2025 [facility] Comment on above: 1 Occurrences starti ng 11/26/2024 until 12/26/2025 DXA Skeletal system.axial Views for bone density DXA-AXIAL SKELETON Radiology Routine Age-related osteoporosis without current pathological fracture 01/01/2025 12:47 PM EST [facility] Work Phone: JOSEFA SCREENING JOSEFA SCREENING Ra diology Routine Visit for screening mammogram Ordered: 07/21/2023 [facility] Work Phone: Comment on above: Ordered: 07/21/2023 MG Breast Screening JOSEFA SCREENIN G Radiology Routine Visit for screening mammogram 09/25/2024 1:08 PM EST [facility] Work Phone: Screening mammograph y bi 2-view breast inc cad [facility] Work Phone: Comment on above: Ordered: 06/08/2022 End: 03-18-2025 US Kidney - bilateral and Urinary bladder US KIDNEY/BLADDER Radiology Routine Essential hypertension, benign Resistant hypertension 1 Occurrences starting 02/17/2024 until 03/18/2025 [facility] Work Phone: Comment on above: 1 Occurrences starti ng 02/17/2024 until 03/18/2025 US Kidney - bilatera l and Urinary bladder US KIDNEY/BLADDER Radiology Routine Essential hypertension, benign Resistant hypertension 03/06/2024 11:35 AM EDT [facility] Work Phone: End: 11-26-2025 US.doppler Extremity arteries - bilateral for physiologic artery study PVR ANK PRESS [facility] Routine Uncontrolled hypertension Leg fatigue Claudication (HCC) 1 Occurrences starting 11/26/2024 until 11/26/2025 [facility] Work Phone: Comment on above: 1 Occurrences starti ng 11/26/2024 until 11/26/2025 [facility] Immunizations Immunization Date Immunization Notes Care Provider Jose Martin bullock 08-19-2024 COVID-19 vaccine, ag e 12+ yr (PFIZER-BIONTECH COMIRNATY) Jleani Ozuna [facility] 08-19-2024 influenza virus vacc ine, unspecified formulation [facility]23 respiratory syncytia l virus (RSV) vaccine, bivalent (ABRYSVO) Laurel Toure MACHINIST CLASS B.CORPORATE TRAVEL EXPERT Work Phone: [facility] 08-13-2023 influenza, high dose seasonal, preservative-free Laurel Toure MACHINIST CLASS B.CORPORATE TRAVEL EXPERT Work Phone: [facility] 08-13-2023 influenza virus vacc ine, unspecified formulation Allie Lynch MACHINIST CLASS B.CORPORATE TRAVEL EXPERT Work Phone: [facility] 08-13-2022 COVID-19 booster vaccine, age 12+ yr, bivalent (PFIZER-BIONTECH) Laurel Toure MACHINIST CLASS B.CORPORATE TRAVEL EXPERT Work Phone: [facility] 07-19-2022 influenza (aIIV4) vaccine, age 65+ yr, quadrivalent, PF (FLUAD QUADRIVALENT) Laurel Toure MACHINIST CLASS B.CORPORATE TRAVEL EXPERT Work Phone: [facility] Work Phone: 07-19-2022 influenza, high-dose , quadrivalent vaccine (FLUZONE HIGH DOSE QUADRIVALENT) Laurel Toure APRN.[facility] Work Phone: [facility] 07-19-2022 influenza virus vacc ine, unspecified formulation Glenny Luque MD Work Phone: [facility] 02-06-2022 COVID-19 vaccine, booster dose (MODERNA) Indio Robledo APRN.[facility] Work Phone: [facility] 09-06-2021 COVID-19 vaccine, fu ll dose (MODERNA) Indio Robledo APRN.[facility] Work Phone: [facility] 08-06-2021 influenza virus vacc ine, unspecified formulation Indio Robledo APRN.[facility] Work Phone: [facility] 01-18-2021 COVID-19 vaccine, fu ll dose (MODERNA) Indio Robledo APRN.[facility] Work Phone: [facility] 12-21-2020 COVID-19 vaccine, fu ll dose (MODERNA) Indio Robledo APRN.[facility] Work Phone: [facility] 12-01-2020 zoster vaccine recombinant Indio Robledo APRN.[facility] Work Phone: [facility] 09-28-2020 zoster vaccine recombinant Indio Robledo APRN.[facility] Work Phone: [facility] Work Phone: 07-19-2020 influenza virus vacc ine, unspecified formulation Indio Robledo APRN.[facility] Work Phone: [facility] 07-18-2020 influenza, high dose seasonal, preservative-free Indio Blakevin HENDRICKSON.[facility] Work Phone: [facility] Work Phone: 08-04-2019 influenza, high dose seasonal, preservative-free Indio Meena HENDRICKSON.[facility] Work Phone: [facility] 07-05-2019 influenza virus vacc ine, unspecified formulation Indio Robledo APRN.[facility] Work Phone: [facility] 07-16-2018 diphtheria, tetanus toxoids and acellular pertussis vaccine Indio Robledo APRN.[facility] Work Phone: [facility] 07-16-2018 influenza virus vacc ine, unspecified formulation Indio Robledo APRN.[facility] Work Phone: [facility] 08-04-2017 influenza virus vacc ine, unspecified formulation Indio Robledo APRN.[facility] Work Phone: [facility] 08-17-2016 influenza, high dose seasonal, preservative-free Indio Robledo APRN.[facility] Work Phone: [facility] 03-26-2016 pneumococcal conjuga te vaccine, 13 valent Indio Robledo APRN.[facility] Work Phone: [facility] 08-04-2013 pneumococcal polysaccharide vaccine, 23 valent Indio Robledo APRN.[facility] Work Phone: [facility] 10-06-2009 novel influenza-H1N1 -09, preservative-free, injectable Indio Robledo APRN.[facility] Work Phone: [facility] 08-04-2008 tetanus toxoid, redu kodak diphtheria toxoid, and acellular pertussis vaccine, adsorbed Indio Robledo APRN.[facility] Work Phone: [facility] Work Phone: 04-18-2008 pneumococcal polysaccharide vaccine, 23 valent Indio Robledo APRN.[facility] Work Phone: [facility] Work Phone: 01-05-2008 zoster vaccine, live Indio Robledo APRN.[facility] Work Phone: [facility] 11-04-1996 diphtheria and tetan us toxoids, adsorbed for pediatric use Indio Robledo APRN.[facility] Work Phone: [facility] Work Phone: Payers Date Payer Category Payer Self-pay 2013 Private Health Insurance [facility] AAR SUPPLEMENT [id number] 2013-Present [phone] [address] [place] [address] Indemnity [id number] 2013 Private Health Insurance [id number] 2013 Unknown [id number] 2011 Medicare MEDICARE MEDICAR E A AND B [id number] 2011-Present [phone] [place] [address] Medicare [id number] 2011 Medicare [id number] 2011 Medicare [id number] Unknown [id number] Unknown [id number] Unknown [id number] Unknown [id number] Unknown [id number] Unknown [id number] Social History Date Type Detail Facility Start: 06-26-2021 End: 11-26-2024 Tobacco smoking status VAIS Smokes tobacco daily [facility] History of tobacco use Cigarette Smoker [facility] Start: 06-26-2021 End: 03-22-2025 Alcohol intake Current non-drinker of alcohol (finding) [facility] Start: 06-21-2021 End: 03-21-2023 History SDOH Alcohol Frequency 1 [facility] Start: 06-21-2021 End: 03-21-2023 History SDOH Social Connections Phone 3 [facility] Start: 06-21-2021 End: 03-21-2023 History SDOH Social Connections Get Together 98 [facility] Start: 06-21-2021 End: 03-21-2023 History SDOH Social Connections Living 5 [facility] Start: 06-21-2021 End: 03-21-2023 History SDOH Stress 2 [facility] Start: 06-21-2021 Education 18 [facility] Start: 1945 Sex Assigned At Female [facility] Start: 05-29-2022 End: 08-27-2022 Exposure to SARS-CoV-2 (event) Not sure [facility] Start: 06-26-2021 End: 03-21-2023 Cigarettes smoked current (pack per day) - Reported 1 [facility] Start: 06-26-2021 End: 11-26-2024 Tobacco use and exposure Smokeless tobacco non-user [facility] Work Phone: Start: 08-21-2022 End: 03-21-2023 History SDOH Alcohol Std Drinks 0 [facility] Start: 08-21-2022 History SDOH Financial 4 [facility] Start: 03-21-2023 End: 03-17-2024 Social connection and isolation panel [facility] In a typical week, h ow many times do you talk on the telephone with family, friends, or neighbors? Patient refused [facility] Do you belong to any clubs or organizations such as hoahaoism groups, unions, fraternal or athletic groups, or school groups? Yes [facility] Are you now , , , , never or living with a partner? [facility] How often to you hav e a drink containing alcohol? Never [facility] Do you feel stress - tense, restless, nervous, or anxious, or unable to sleep at night because your mind is troubled all the time - these days [OSQ] Not at all [facility] (I/We) worried wheth er (my/our) food would run out before (I/we) got money to buy more. Never true [facility] In the past 12 month s, was there a time when you were not able to pay the mortgage or rent on time? No [facility] Start: 06-17-2019 Gender identity Identifies as female gender (finding) [facility] Start: 06-17-2019 Sexual orientation Heterosexual (finding) [facility] How hard is it for y ou to pay for the very basics like food, housing, medical care, and heating Not very hard [facility] Start: 11-26-2024 Tobacco Comment Trying to reduce, smoking 10 or less. [facility] Do you feel stress - tense, restless, nervous, or anxious, or unable to sleep at night because your mind is troubled all the time - these days [OSQ] Only a little [facility] Functional Status Date Assessment Result Facility 03-23-2015 Are you deaf, or do you have serious difficulty hearing No 03/23/2015 11:35 AM Joana Looney LPN No [facility] 03-23-2015 Are you blind, or do you have serious difficulty seeing, even when wearing glasses No 03/23/2015 11:35 AM Joana Looney LPN [facility] 03-23-2015 Do you have serious difficulty walking or climbing stairs No 03/23/2015 11:35 AM Joana Looney LPN [facility] 03-23-2015 Do you have difficul ty dressing or bathing No 03/23/2015 11:35 AM Joana Looney LPN No [facility] 03-23-2015 Because of a physica l, mental, or emotional condition, do you have difficulty doing errands alone such as visiting a physician's office or shopping No 03/23/2015 11:35 AM Joana Looney LPN No [facility] Mental Status Date Assessment Result Facility 03-23-2015 Because of a physica l, mental, or emotional condition, do you have serious difficulty concentrating, remembering, or making decisions No 03/23/2015 11:35 AM Joana Looney LPN No [facility] Clinical Notes 02-26-2014 to 04-28-2025 Telephone Encounter - Shavonne Lopez RN - 04/28/2025 4:34 PM EDTTelephone Encounter - Shavonne Lopez RN - 04/28/2025 4:34 PM EDTSFaith fitzgerald MA - 04/07/2025 11:45 AM EDT Note Date & Type Note Facility 04-28-2025 Telephone encounter Note Pt called and is notified of providers message and instructions. Pt voices understanding. Faxed medical consultation form to Dr. Irvin Gallo DMD, MD at fax # [phone] [facility]. Shavonne Lopez RN [facility] 04-28-2025 Miscellaneous Notes Pt called and is notified of providers message and instructions. Pt voices understanding. Faxed medical consultation form to Dr. Irvin Gallo DMD, MD at fax # [phone] [facility]. Shavonne Lopez RN Form done; she may hold the Fosamax now, and stay off it until healed from the dental surgery. Glenny Luque MD Type of letter/form/fax request - Medical Consultation Form Form received from fax on 1 floor and placed on MD desk (Dr. Luque) for completion. Completed form needs to be faxed to Dr. Irvin Gallo DMD, MD at [phone] [facility]. Route to [place] when form completed for processing documented in this encounter [facility] 04-27-2025 Telephone encounter Note Form done; she may hold the Fosamax now, and stay off it until healed from the dental surgery. Glenny Luque MD [facility] 04-22-2025 Telephone encounter Note Type of letter/form/fax request - Medical Consultation Form Form received from fax on 1 floor and placed on MD desk (Dr. Luque) for completion. Completed form needs to be faxed to Dr. Irvin Gallo DMD, MD at [phone] [facility]. Route to [place] when form completed for processing [facility] 04-07-2025 Note HNO ID: [id number] Author: FAITH LARKIN MA Service: ? Author Type: Prepress Technician Type: Progress Notes Filed: 04/07/2025 11:53 Note Text: POPULATION HEALTH NAVIGATION OUTREACH Action/FYI Spoke to Alvarado. She will schedule in the fall. Topic Due (Y or N) Comments Medicare Wellness y After 11-26-25 PCP Follow up Colorectal Cancer Screening Controlling Blood Pressure A1C HCC Flu Vaccine Care Everywhere Reviewed MyChart Activation Updated Appointment Note Reason for Outreach Care Gap/HCC or Scheduling Wellness Visits Care Gaps due: Next Year's Annual Wellness Visit Patient Contacted: Spoke to patient/parent/or legal guardian Patient identified by name and : Yes Care Gap/HCC/Scheduling Wellness actions taken: Patient declined: Patient requested call back from navigator/ will call navigator back Navigation Signature: Faith Larkin MA April 07, 2025 11:45 AM [facility] 04-07-2025 History of Present illness Narrative POPULATION HEALTH NAVIGATION OUTREACH Action/FYI Spoke to Alvarado. She will schedule in the fall. Topic Due (Y or N) Comments Medicare Wellness y After 11-26-25 PCP Follow up Colorectal Cancer Screening Controlling Blood Pressure A1C HCC Flu Vaccine Care Everywhere Reviewed MyChart Activation Updated Appointment Note Reason for Outreach Care Gap/HCC or Scheduling Wellness Visits Care Gaps due: Next Year's Annual Wellness Visit Patient Contacted: Spoke to patient/parent/or legal guardian Patient identified by name and : Yes Care Gap/HCC/Scheduling Wellness actions taken: Patient declined: Patient requested call back from navigator/ will call navigator back Navigation Signature: Faith Larkin MA April 07, 2025 11:45 AM documented in this encounter [facility] 04-07-2025 Note Patient Outreach (JEREMI TNAV) ALVARADO COHEN ([id number]) 1945 F Date Time Provider Department 04/07/25 FAITH LARKIN NETNAV During your visit today, we recorded the following information about you: Faith Larkin MA 04/07/2025 11:53 AM Signed POPULATION HEALTH NAVIGATION OUTREACH Action/ Spoke to Alvarado. She will schedule in the fall. Topic Due (Y or N) Comments Medicare Wellness y After 11-26-25 PCP Follow up Colorectal Cancer Screening Controlling Blood Pressure A1C HCC Flu Vaccine Care Everywhere Reviewed MyChart Activation Updated Appointment Note Reason for Outreach Care Gap/HCC or Scheduling Wellness Visits Care Gaps due: Next Year's Annual Wellness Visit Patient Contacted: Spoke to patient/parent/or legal guardian Patient identified by name and : Yes Care Gap/HCC/Scheduling Wellness actions taken: Patient declined: Patient requested call back from navigator/ will call navigator back Navigation Signature: Faith Larkin MA April 07, 2025 11:45 AM Allergies As of Date: 04/07/2025 Noted Allergy Reaction CODEINE 09/10/2005 SPIRONOLACTONE 07/08/2019 14 - Other: See Comments Comments: lightheadedness SULFA (SULFONAMIDE ANTIBIOTICS) 09/10/2005 Date Reviewed: 03/22/2025 Reviewed by: Leeanne Sterling MA - Fully Assessed Reason for Visit: Population Health Navigation Outreach [3910] Cmt: PARI STROUD PCSA Prescriptions as of 04/07/2025 - hydrALAZINE (APRESOLINE) 25 mg tablet Take 1 tablet by mouth four times daily. Take 1 tablet by mouth three times per day, up to four times per day. - amLODIPine (NORVASC) 10 mg tablet Take 1 tablet by mouth once daily. - chlorthalidone (HYGROTON) 25 mg tablet Take 1 tablet by mouth once daily. - lisinopril (ZESTRIL) 30 mg tablet Take 1 tablet by mouth two times a day. - alendronate (FOSAMAX) 70 mg tablet Take 1 tablet by mouth one time a week. In AM with cup of water on empty stomach. Nothing else by mouth and stay upright for 30 min. - vw-ixl-odiwl-calcium carb-K1 (WOMEN'S 50 PLUS MULTIVITAMIN) 400 mcg-500 mg calcium-20 mcg tab Take 1 tablet by mouth once daily. - metoprolol succinate ER (TOPROL XL) 50 mg 24 hr tablet Take 1 tablet by mouth two times a day. - aspirin 325 mg tablet Take 325 mg by mouth as needed. - CALCIUM 600 + D 600 MG-125 UNIT TAB Take one(1) tablet twice daily. Problem List As Of Date 04/07/2025 Noted Resolved Essential hypertension, benign [I10] 09/11/2005 Osteoporosis [M81.0] 08/26/2007 Vitamin D deficiency [E55.9] 09/03/2007 04/10/2017 Tobacco abuse [Z72.0] 10/11/2010 Hyperlipidemia with target LDL less than 100 [E*01/13/2013 Hypokalemia [E87.6] 02/26/2014 04/10/2017 Right carotid bruit [R09.89] 03/23/2015 Disposition: Return in about 3 months (around 07/08/2025). Follow-up and Disposition History for Encounter Date Provider Department Center 04/07/2025 [id number]-[id number], KATHY LNETNAV None Encounter Status:Closed by FAITH LARKIN on 04/07/25 [facility] 03-22-2025 History of Present illness Narrative Chief Complaint Patient presents with: Follow Up: BP HPI Alvarado Cohen is a 79 year old female who presents here today for a follow up. Pt here today for a follow up for her blood pressure, due to persistant elevation. Tobacco - Still smoking, but has cut down to under 10 cigarettes per day. HTN - Reading at last OV was elevated at 166/64. Checking BP at home, with BP ranging from 140-160's/50-60's.. Usually will come down to systolic in 140s if she rests fro a few minutes. Denies any chest pain, sob, or dizziness. On current regimen of Amlodipine 10 mg once daily, Lisinopril 30 mg 1 tab po bid, Hydralazine 25 mg 1 tab po TID up to QID (has not taken QID), Chlorthalidone 25 mg once daily and Toprol XL 50 mg 1 tab po bid. Nephro - Follows with Dr. Govea for hypertensive disorder. Pt recently seen by Nephro on 02/24/25, who recommended increasing Hydralazine 25 mg from TID to QID and repeat BMP in 1 month. Still complains of aching in legs with walking. She did not get PVR testing done, vianey wait and see how she does. HM - Declines Covid vaccine. Past medical history, appointments, medications, allergies reviewed. Previous Medical History PAST MEDICAL HISTORY Diagnosis Date BENIGN HYPERTENSION 09/11/2005 Benign hypertensive heart disease without heart failure Disorder of bone and cartilage, unspecified Diverticulosis of colon (without mention of hemorrhage) Hyperlipidemia LDL goal < 100 01/13/2013 Hypokalemia 02/26/2014 Internal hemorrhoids without mention of complication OSTEOPOROSIS NOS 08/26/2007 Tobacco abuse 10/11/2010 VITAMIN D DEFICIENCY NOS 09/03/2007 Previous Surgical History PAST SURGICAL HISTORY Procedure Laterality Date COLONOSCOPY FLX DX W/COLLJ SPEC WHEN PFRMD 02/18/2007 COLONOSCOPY FLX DX W/COLLJ SPEC WHEN PFRMD 06/10/2017 Colonoscopy PAST SURGICAL HISTORY OF N/A 10/07/2024 Renal artery stent surgery, unable to place stent Family History FAMILY HISTORY Problem Relation Age of Onset Psychiatry Mother ANXIETY Cancer Father RENAL No Known Problems Brother Arthritis Paternal Grandmother Hypertension Paternal Grandfather Patient Allergies ALLERGIES Allergen Reactions Codeine Spironolactone Other: See Comments lightheadedness Sulfa (Sulfonamide * Current Medications Current Outpatient Medications on File Prior to Visit Medication Sig amLODIPine (NORVASC) 10 mg tablet Take 1 tablet by mouth once daily. chlorthalidone (HYGROTON) 25 mg tablet Take 1 tablet by mouth once daily. lisinopril (ZESTRIL) 30 mg tablet Take 1 tablet by mouth two times a day. alendronate (FOSAMAX) 70 mg tablet Take 1 tablet by mouth one time a week. In AM with cup of water on empty stomach. Nothing else by mouth and stay upright for 30 min. hydrALAZINE (APRESOLINE) 25 mg tablet Take 1 tablet by mouth three times a day. yc-ozi-trirw-calcium carb-K1 (WOMEN'S 50 PLUS MULTIVITAMIN) 400 mcg-500 mg calcium-20 mcg tab Take 1 tablet by mouth once daily. metoprolol succinate ER (TOPROL XL) 50 mg 24 hr tablet Take 1 tablet by mouth two times a day. aspirin 325 mg tablet Take 325 mg by mouth as needed. CALCIUM 600 + D 600 MG-125 UNIT TAB Take one(1) tablet twice daily. No current facility-administered medications on file prior to visit. Social History Social History Tobacco Use Smoking status: Every Day Current packs/day: 1.00 Average packs/day: 1 pack/day for 45.0 years (45.0 ttl pk-yrs) Types: Cigarettes Smokeless tobacco: Never Tobacco comments: Trying to reduce, smoking 10 or less. Vaping Use Vaping status: Never Used Substance Use Topics Alcohol use: No Drug use: No EXAM: BP 164/68 (BP Site: Left Arm, BP Position: Sitting, BP Cuff Size: Regular Adult) Pulse 62 Resp 18 Wt 54.3 kg (119 lb 11.4 oz) BMI 21.90 kg/m General Appearance: Well appearing, alert, in no acute distress, well-hydrated, well nourished.. Lungs: Lungs clear to auscultation. No wheezing, rhonchi, rales.. Heart: RRR without murmur, gallop, or rubs. No ectopy. Health Maintenance List Depression Screening Never done Anxiety Screening Never done BP Controlled (<130/80) due on 06/26/2022 Advance Directive Discussion Never done Covid-19 Vaccine( season) due on 02/17/2025 Annual PCP Team Chronic Disease Visit due on 11/26/2025 Bone Density Screening due on 01/01/2027 Diabetes Screening due on 02/23/2028 DTaP,Tdap,Td Vaccine(4 - Td or Tdap) due on 07/16/2028 Influenza Vaccine Completed RSV Vaccine Completed Hepatitis C Screening Completed Shingrix Vaccine Completed Pneumococcal Vaccine: 50+ Completed Mammogram Screening Discontinued Colorectal Cancer Screening Discontinued Data reviewed none ASSESSMENT/PLAN: 1. Essential hypertension, benign - ICD9: 401.1, ICD10: I10 (primary diagnosis) - Improving control - Continue current medications - Recommend home blood pressure monitoring, to bring results to next visit - Encouraged sodium restriction, DASH or Mediterranean diet - Recommend regular aerobic exercise - Follow with Nephrology 2. Resistant hypertension - ICD9: 401.9, ICD10: I1A.0 3. Uncontrolled hypertension - ICD9: 401.9, ICD10: I10 - HYDRALAZINE 25 MG TABLET 4. Osteoporosis, unspecified osteoporosis type, unspecified pathological fracture presence - ICD9: 733.00, ICD10: M81.0 - continue tx with alendronate (Fosamax) - Reviewed the need for Calcium and Vitamin D supplements and weight bearing exercise as tolerated 5. Claudication - ICD9: 443.9, ICD10: I73.9 Monitor 6. Tobacco use disorder - ICD9: 305.1, ICD10: F17.200 - Cessation encouraged. - Physiologic and physical aspects of tobacco addiction as well as strategies for quitting were discussed. - Counseling was given focusing on the harmful effects of this addiction especially given the patient's medical condition(s) which will be worsened because of the chemicals in tobacco. Follow up prn Medical Decision Making: Problems: Moderate: 2+ stable chronic illnesses Risk: Moderate: Drug management Medical Decision Making Level: 4 - Moderate Glenny Luque MD documented in this encounter [facility] 03-22-2025 Note HNO ID: [id number] Author: GLENNY LUQUE MD Service: ? Author Type: Physician Type: Progress Notes Filed: 03/22/2025 16:01 Note Text: Chief Complaint Patient presents with: Follow Up: BP HPI Alvarado Cohen is a 79 year old female who presents here today for a follow up. Pt here today for a follow up for her blood pressure, due to persistant elevation. Tobacco - Still smoking, but has cut down to under 10 cigarettes per day. HTN - Reading at last OV was elevated at 166/64. Checking BP at home, with BP ranging from 140-160's/50-60's.. Usually will come down to systolic in 140s if she rests fro a few minutes. Denies any chest pain, sob, or dizziness. On current regimen of Amlodipine 10 mg once daily, Lisinopril 30 mg 1 tab po bid, Hydralazine 25 mg 1 tab po TID up to QID (has not taken QID), Chlorthalidone 25 mg once daily and Toprol XL 50 mg 1 tab po bid. Nephro - Follows with Dr. Govea for hypertensive disorder. Pt recently seen by Nephro on 02/24/25, who recommended increasing Hydralazine 25 mg from TID to QID and repeat BMP in 1 month. Still complains of aching in legs with walking. She did not get PVR testing done, vianey wait and see how she does. HM - Declines Covid vaccine. Past medical history, appointments, medications, allergies reviewed. Previous Medical History PAST MEDICAL HISTORY Diagnosis Date BENIGN HYPERTENSION 09/11/2005 Benign hypertensive heart disease without heart failure Disorder of bone and cartilage, unspecified Diverticulosis of colon (without mention of hemorrhage) Hyperlipidemia LDL goal < 100 01/13/2013 Hypokalemia 02/26/2014 Internal hemorrhoids without mention of complication OSTEOPOROSIS NOS 08/26/2007 Tobacco abuse 10/11/2010 VITAMIN D DEFICIENCY NOS 09/03/2007 Previous Surgical History PAST SURGICAL HISTORY Procedure Laterality Date COLONOSCOPY FLX DX W/COLLJ SPEC WHEN PFRMD 02/18/2007 COLONOSCOPY FLX DX W/COLLJ SPEC WHEN PFRMD 06/10/2017 Colonoscopy PAST SURGICAL HISTORY OF N/A 10/07/2024 Renal artery stent surgery, unable to place stent Family History FAMILY HISTORY Problem Relation Age of Onset Psychiatry Mother ANXIETY Cancer Father RENAL No Known Problems Brother Arthritis Paternal Grandmother Hypertension Paternal Grandfather Patient Allergies ALLERGIES Allergen Reactions Codeine Spironolactone Other: See Comments lightheadedness Sulfa (Sulfonamide * Current Medications Current Outpatient Medications on File Prior to Visit Medication Sig amLODIPine (NORVASC) 10 mg tablet Take 1 tablet by mouth once daily. chlorthalidone (HYGROTON) 25 mg tablet Take 1 tablet by mouth once daily. lisinopril (ZESTRIL) 30 mg tablet Take 1 tablet by mouth two times a day. alendronate (FOSAMAX) 70 mg tablet Take 1 tablet by mouth one time a week. In AM with cup of water on empty stomach. Nothing else by mouth and stay upright for 30 min. hydrALAZINE (APRESOLINE) 25 mg tablet Take 1 tablet by mouth three times a day. xq-euq-esexm-calcium carb-K1 (WOMEN'S 50 PLUS MULTIVITAMIN) 400 mcg-500 mg calcium-20 mcg tab Take 1 tablet by mouth once daily. metoprolol succinate ER (TOPROL XL) 50 mg 24 hr tablet Take 1 tablet by mouth two times a day. aspirin 325 mg tablet Take 325 mg by mouth as needed. CALCIUM 600 + D 600 MG-125 UNIT TAB Take one(1) tablet twice daily. No current facility-administered medications on file prior to visit. Social History Social History Tobacco Use Smoking status: Every Day Current packs/day: 1.00 Average packs/day: 1 pack/day for 45.0 years (45.0 ttl pk-yrs) Types: Cigarettes Smokeless tobacco: Never Tobacco comments: Trying to reduce, smoking 10 or less. Vaping Use Vaping status: Never Used Substance Use Topics Alcohol use: No Drug use: No EXAM: BP 164/68 (BP Site: Left Arm, BP Position: Sitting, BP Cuff Size: Regular Adult) Pulse 62 Resp 18 Wt 54.3 kg (119 lb 11.4 oz) BMI 21.90 kg/m? General Appearance: Well appearing, alert, in no acute distress, well-hydrated, well nourished.. Lungs: Lungs clear to auscultation. No wheezing, rhonchi, rales.. Heart: RRR without murmur, gallop, or rubs. No ectopy. Health Maintenance List Depression Screening Never done Anxiety Screening Never done BP Controlled (<130/80) due on 06/26/2022 Advance Directive Discussion Never done Covid-19 Vaccine() due on 02/17/2025 Annual PCP Team Chronic Disease Visit due on 11/26/2025 Bone Density Screening due on 01/01/2027 Diabetes Screening due on 02/23/2028 DTaP,Tdap,Td Vaccine(4 - Td or Tdap) due on 07/16/2028 Influenza Vaccine Completed RSV Vaccine Completed Hepatitis C Screening Completed Shingrix Vaccine Completed Pneumococcal Vaccine: 50+ Completed Mammogram Screening Discontinued Colorectal Cancer Screening Discontinued Data reviewed none ASSESSMENT/PLAN: 1. Essential hypertension, benign - ICD9: 401.1, ICD10: I10 (primary diagnosi (more content not included)... [facility] 03-03-2025 Note HNO ID: [id number] Author: FAITH LARKIN MA Service: ? Author Type: Prepress Technician Type: Progress Notes Filed: 03/03/2025 15:03 Note Text: POPULATION HEALTH NAVIGATION OUTREACH Action/FYI Spoke with Alvarado. Rescheduled follow visit Topic Due (Y or N) Comments Medicare Wellness PCP Follow up y Around end february Colorectal Cancer Screening Controlling Blood Pressure y A1C HCC Flu Vaccine Care Everywhere Reviewed MyChart Activation Updated Appointment Note Reason for Outreach Care Gap/HCC or Scheduling Wellness Visits Care Gaps due: Follow-up Appointment Controlling Blood Pressure Patient Contacted: Spoke to patient/parent/or legal guardian Patient identified by name and : Yes Care Gap/HCC/Scheduling Wellness actions taken: Patient scheduled/pended orders: Follow-up Appointment Controlling Blood Pressure Navigation Signature: Faith Larkin MA March 03, 2025 2:47 PM [facility] 03-03-2025 History of Present illness Narrative POPULATION HEALTH NAVIGATION OUTREACH Action/FYI Spoke with Alvarado. Rescheduled follow visit Topic Due (Y or N) Comments Medicare Wellness PCP Follow up y Around end february Colorectal Cancer Screening Controlling Blood Pressure y A1C HCC Flu Vaccine Care Everywhere Reviewed MyChart Activation Updated Appointment Note Reason for Outreach Care Gap/HCC or Scheduling Wellness Visits Care Gaps due: Follow-up Appointment Controlling Blood Pressure Patient Contacted: Spoke to patient/parent/or legal guardian Patient identified by name and : Yes Care Gap/HCC/Scheduling Wellness actions taken: Patient scheduled/pended orders: Follow-up Appointment Controlling Blood Pressure Navigation Signature: Faith Larkin MA March 03, 2025 2:47 PM documented in this encounter [facility] 03-03-2025 Note Patient Outreach (JEREMI HUERTA) ALVARADO COHEN ([id number]) 1945 F Date Time Provider Department 03/03/25 FAITH LARKIN NETNAV During your visit today, we recorded the following information about you: Faith Larkin MA 03/03/2025 3:03 PM Signed POPULATION HEALTH NAVIGATION OUTREACH Action/FYI Spoke with Alvarado. Rescheduled follow visit Topic Due (Y or N) Comments Medicare Wellness PCP Follow up y Around end february Colorectal Cancer Screening Controlling Blood Pressure y A1C HCC Flu Vaccine Care Everywhere Reviewed MyChart Activation Updated Appointment Note Reason for Outreach Care Gap/HCC or Scheduling Wellness Visits Care Gaps due: Follow-up Appointment Controlling Blood Pressure Patient Contacted: Spoke to patient/parent/or legal guardian Patient identified by name and : Yes Care Gap/HCC/Scheduling Wellness actions taken: Patient scheduled/pended orders: Follow-up Appointment Controlling Blood Pressure Navigation Signature: Faith Larkin MA March 03, 2025 2:47 PM Allergies As of Date: 03/03/2025 Noted Allergy Reaction CODEINE 09/10/2005 SPIRONOLACTONE 07/08/2019 14 - Other: See Comments Comments: lightheadedness SULFA (SULFONAMIDE ANTIBIOTICS) 09/10/2005 Date Reviewed: 11/26/2024 Reviewed by: Leeanne Sterling MA - Fully Assessed Reason for Visit: Population Health Navigation Outreach [3910] Cmt: [employer] PCSA Prescriptions as of 03/04/2025 - amLODIPine (NORVASC) 10 mg tablet Take 1 tablet by mouth once daily. - chlorthalidone (HYGROTON) 25 mg tablet Take 1 tablet by mouth once daily. - lisinopril (ZESTRIL) 30 mg tablet Take 1 tablet by mouth two times a day. - alendronate (FOSAMAX) 70 mg tablet Take 1 tablet by mouth one time a week. In AM with cup of water on empty stomach. Nothing else by mouth and stay upright for 30 min. - hydrALAZINE (APRESOLINE) 25 mg tablet Take 1 tablet by mouth three times a day. - vv-bmz-yokye-calcium carb-K1 (WOMEN'S 50 PLUS MULTIVITAMIN) 400 mcg-500 mg calcium-20 mcg tab Take 1 tablet by mouth once daily. - metoprolol succinate ER (TOPROL XL) 50 mg 24 hr tablet Take 1 tablet by mouth two times a day. - aspirin 325 mg tablet Take 325 mg by mouth as needed. - CALCIUM 600 + D 600 MG-125 UNIT TAB Take one(1) tablet twice daily. Problem List As Of Date 03/03/2025 Noted Resolved Essential hypertension, benign [I10] 09/11/2005 Osteoporosis [M81.0] 08/26/2007 Vitamin D deficiency [E55.9] 09/03/2007 04/10/2017 Tobacco abuse [Z72.0] 10/11/2010 Hyperlipidemia with target LDL less than 100 [E*01/13/2013 Hypokalemia [E87.6] 02/26/2014 04/10/2017 Right carotid bruit [R09.89] 03/23/2015 Encounter Status:Closed by FAITH LARKIN on 03/03/25 [facility] 01-25-2025 Telephone encounter Note Patient contacted pharmacy and requests refills as follows: Requested Prescriptions Pending Prescriptions Disp Refills amLODIPine (NORVASC) 10 mg tablet 90 tablet 3 Sig: Take 1 tablet by mouth once daily. The last encounter with Glenny Luque MD was 11/26/2024 RX INSTRUCTIONS: Patient aware RX escripted to mail away pharmacy. No need to notify patient. Patient has been identified by name and date of : Yes Oumou Thompson [facility] 01-25-2025 Miscellaneous Notes Patient contacted pharmacy and requests refills as follows: Requested Prescriptions Pending Prescriptions Disp Refills amLODIPine (NORVASC) 10 mg tablet 90 tablet 3 Sig: Take 1 tablet by mouth once daily. The last encounter with Glenny Luque MD was 11/26/2024 RX INSTRUCTIONS: Patient aware RX escripted to mail away pharmacy. No need to notify patient. Patient has been identified by name and date of : Yes Oumou Thompson documented in this encounter [facility] 01-04-2025 Progress note Formatting of t his note might be different from the original. Rx's have been sent. Leeanne Sterling MA [facility] 01-04-2025 Miscellaneous Notes Rx's have been sent. Leeanne Sterling MA OK to refill as ordered Glenny Luque MD Call to pt and notified her of results and recommendations from Provider. Pt asking about side effects of Fosamax. Pt agreeable to taking, please sent to [facility]. Spoke with PCP - GI upset, cause some jaw/bone issues, notified pt of this. Is due for refills that need sent to [facility] - Lisinopril and Chlorthalidone. Rx's pended. Leeanne Sterling MA Please notify patient that her bone density test does show osteoporosis in her femoral necks, with an increased risk of having hip fracture. She would be a candidate to start on weekly Fosamax pills; I can send Rx to whatever pharmacy she uses if she is willing to start this. Glenny Luque MD documented in this encounter [facility] 01-04-2025 Progress note Formatting of t his note might be different from the original. OK to refill as ordered Glenny Luque MD [facility] 01-04-2025 Progress note Formatting of t his note might be different from the original. Call to pt and notified her of results and recommendations from Provider. Pt asking about side effects of Fosamax. Pt agreeable to taking, please sent to [facility]. Spoke with PCP - GI upset, cause some jaw/bone issues, notified pt of this. Is due for refills that need sent to [facility] - Lisinopril and Chlorthalidone. Rx's pended. Leeanne Sterling MA [facility] 01-04-2025 Telephone encounter Note Please notify patient that her bone density test does show osteoporosis in her femoral necks, with an increased risk of having hip fracture. She would be a candidate to start on weekly Fosamax pills; I can send Rx to whatever pharmacy she uses if she is willing to start this. Glenny Luque MD [facility] 01-01-2025 History of Present illness Narrative Radiology Service Progress Note PATIENT NAME: Alvarado Cohen DATE OF SERVICE: January 01, 2025 TIME: 12:30 PM PATIENT IDENTITY VERIFICATION COMPLETED USING TWO (2) IDENTIFIERS: Name and Date of confirmed by patient verbally. FALL SCREENING: Has the patient had 2 falls in the last year or 1 fall with injury or currently using an Ambulatory Assistive Device (Walker, Cane, Wheelchair, Crutches, etc.)? No PATIENT GENDER DATA: Assigned female at . status: : No status: NO. PATIENT RELEVANT IMPLANT DATA REVIEWED: Not Applicable PATIENT PRESENTS WITH AN IMPLANTABLE OR ATTACHED SUPERANNUATION CLERK: No RADIOLOGY DEPARTMENT: Bone Density PERIPHERAL IV DATA: Not applicable SIGNED BY: RT Kasie(R) January 01, 2025 12:30 PM documented in this encounter [facility] 01-01-2025 Note HNO ID: [id number] Author: BERNABE FLOWERS RT(R) Service: ? Author Type: Technologist Type: Progress Notes Filed: 01/01/2025 12:36 Note Text: Radiology Service Progress Note PATIENT NAME: Alvarado Cohen DATE OF SERVICE: January 01, 2025 TIME: 12:30 PM PATIENT IDENTITY VERIFICATION COMPLETED USING TWO (2) IDENTIFIERS: Name and Date of confirmed by patient verbally. FALL SCREENING: Has the patient had 2 falls in the last year or 1 fall with injury or currently using an Ambulatory Assistive Device (Walker, Cane, Wheelchair, Crutches, etc.)? No PATIENT GENDER DATA: Assigned female at . status: : No status: NO. PATIENT RELEVANT IMPLANT DATA REVIEWED: Not Applicable PATIENT PRESENTS WITH AN IMPLANTABLE OR ATTACHED SUPERANNUATION CLERK: No RADIOLOGY DEPARTMENT: Bone Density PERIPHERAL IV DATA: Not applicable SIGNED BY: RT Kasie(R) January 01, 2025 12:30 PM [facility] 11-26-2024 Instructions Leeanne Sterling MA - 11/26/2024 1:56 PM EST BONE MINERAL DENSITY PATIENT INSTRUCTIONS ======= Bone mineral density testing measures the amount of calcium in certain parts of your bones. This information determines how strong your bones are. The test is used to detect osteoporosis, a disease in which the bone's mineral content and density are low, increasing a person's risk of fractures. The lumbar spine (lower back) and the hip are the skeletal sites usually examined. For the test, remember that: 1. You cannot take this test if you are . 2. Eat a normal diet on the day of the test. 3. Take your medications as you normally would. 4. DO NOT take calcium supplements (such as Tums) for 24 hours before the test. 5. On the day of the test, leave valuables (jewelry or credit cards) at home. 6. The test should be performed prior to oral, rectal or IV contrast studies, or at least 7 days after any of these studies. For the test, you may be asked to wear a hospital gown. You will lie on your back, on a padded table, in a comfortable position. Generally, you can resume your usual activities immediately. documented in this encounter [facility] 11-26-2024 History of Present illness Narrative Images from the original note were not included. Alvarado Cohen is a 79 year old female here for a Medicare wellness visit. Tobacco - Former 1 ppd smoker, but is making an effort to slow down. Now only smoking 10 cigarettes per day. Doing this on her own. Plans on using a patch in the future when ready to quit. GI/Uro - Denies any stomach, bowel or urinary issues. HTN - Checks BP periodically at home. Scheduled visit today for elevated BP today which is an ongoing issue for her. Reports BP readings are high, yesterday was 150-170/60's. BP has not been in the 130's in a decade. Her BP in the 140's 3-5 years ago and has continued to get higher now despite using medication. Denies any chest pain or dizziness. Does get some sob. Currently taking Amlodipine 10 mg once daily, Hydralazine 25 mg 1 tab po TID, Lisinopril 30 mg 1 tab po bid, Toprol XL 50 mg 1 tab po bid and Chlorthalidone 25 mg once daily. Has been advised by Vascular to see [facility] for her HTN and renal artery issues. Nephro - Follows with Dr. Govea in Nephrology. Has f/u with her in February with routine blood work. Vascular - Follows with Vascular, and had an US that showed 2 renal arteries in her kidney. One was small that had plaque/crystals and this is why a stent couldn't be placed. Attempted to have a renal stent placed on 10/07/24, but was not able too. She's only seen him twice. They recommended she f/u with a Provider at [facility] to monitor this and her BP. Vascular has asked pt if she has leg pain or cramping or other symptoms. Pt does note when walking her legs are sore and stop working. She has to stop and it will improve. Does have some vision issues or blurred vision, but unsure if this is related to cataracts. Has f/u with Dr. Sifuentes in regards to this. Pt denies having any other vascular testing done on her legs. Diet/Exercise - Reports diet is pretty good. Doesn't exercise as much as she used too. Previously used to walk a lot. Osteoporosis - Takes Calcium + D twice daily. Is overdue for Bone Density screening, last one completed in 2016. HM - Has Adv Dir/Living Will scanned into chart. Depression/Anxiety Screening negative, with first two questions. Overdue for BMD. Medicare Health Risk Assessment General Health Fair Exercise: Minutes/Day 20 min Exercise: Days/Week 3 days Alcohol: Daily Use Never Alcohol: Drinks/Day Patient does not drink Alcohol: 6 or more drinks Never Feel off balance No Concerns: Teeth/Dentures No Concerns: Sexual function No Troubled by feelings None of the above Frequency: Eating healthy diet More than half the days ADLs requiring help None of the above Safety precautions in home/vehicle Yes Smoke, vape, chews tobacco Yes, and I might quit Difficulty hearing No Difficulty seeing No Current Providers Specialists: I have reviewed specialist-related care of the patient in the medical record. Current care team: Patient Care Team: Glenny Luque MD as PCP - General (Family Medicine) Laurel Toure APRN.NIKKI as [employer] (Family Medicine) Hans Mccray APRN.CNP as [employer] (Family Medicine) Porfirio Mei MD - Vascular Nora Govea DO - Nephrology Dr. Sifuentes - Ophthalmology Dr. Christensen - Dentistry Medical/Family history review Reviewed and updated problem list, medical/surgical/family/social history, medications, and allergies. Opioid use review Opioid Medications (last 90 days) No data to display Anxiety/Depression screening PHQ-9 Score: 0. CHADWICK-7 Score: 1 (Minimal Anxiety) Recommendation: no further intervention at this time Cognitive screening Cognitive screening reviewed and No further action needed (score 3-5). Functional Observation Was the patient's Timed Up & Go test unsteady or >= 12 seconds? No Advance Care Planning Surrogate decision maker and/or advance care plan documented Physical Exam Constitutional: Appearance: Normal appearance. Cardiovascular: Rate and Rhythm: Normal rate and regular rhythm. Pulses: Normal pulses. Heart sounds: Normal heart sounds. No murmur heard. Pulmonary: Effort: Pulmonary effort is normal. No respiratory distress. Breath sounds: Normal breath sounds. No wheezing, rhonchi or rales. Musculoskeletal: General: No swelling. Neurological: General: No focal deficit present. Mental Status: She is alert and oriented to person, place, and time. Psychiatric: Mood and Affect: Mood normal. Behavior: Behavior normal. Measurements BP 166/64 Pulse 70 Resp 18 Ht 157.5 cm (5' 2) Wt 55 kg (121 lb 4.1 oz) BMI 22.18 kg/m Vision Screening: Follows with optometry/ophthalmology Assessment/Plan Medicare annual wellness visit, subsequent (Z00.00) - Counseled on healthy diet and regular exercise - Fall avoidance information provided - Personalized prevention plan provided - Smoking cessation encouraged; discussed risks to health and quitting strategies. Patient is - pt working on cutting back to 10 cigarettes per day. May use patches in the future. 2. Uncontrolled hypertension - ICD9: 401.9, ICD10: I10 - Uncontrolled - Continue current medications - Recommend home blood pressure monitoring, to bring results to next visit - Encouraged sodium restriction, DASH or Mediterranean diet - Recommend regular aerobic exercise - HYDRALAZINE 25 MG TABLET 3. Hyperlipidemia with target LDL less than 100 - ICD9: 272.4, ICD10: E78.5 - Check fasting labs as ordered, will call with results. - Counseled on healthy diet and regular exercise 4. Age-related osteoporosis without current pathological fracture - ICD9: 733.01, ICD10: M81.0 - Recheck BMD as ordered, will call with results. - Reviewed the need for Calcium and Vitamin D supplements and weight bearing exercise as tolerated 5. Tobacco use disorder - ICD9: 305.1, ICD10: F17.200 - Cessation encouraged. - Physiologic and physical aspects of tobacco addiction as well as strategies for quitting were discussed. - Counseling was given focusing on the harmful effects of this addiction especially given the patient's medical condition(s) which will be worsened because of the chemicals in tobacco. 6. Screening for depression - ICD9: V79.0, ICD10: Z13.31 - Negative - DEPRESSION SCREENING 7. Encounter for screening examination for other mental health and behavioral disorders - ICD9: V79.8, ICD10: Z13.39 - Negative - ANXIETY SCREENING 8. Leg fatigue/claudication - ICD9: 729.89, ICD10: R29.898 - Ordered b/l PVR Vascular test. Follow up in 3 months. Complete fasting labs as ordered, will call with results. Setup BMD and PVR test. I agree with the Chief Complaint, ROS, and Past Histories independently gathered by the clinical community support specialist and the remaining scribed note accurately describes my personal service to the patient. Medical Decision Making: Problems: Moderate: 1+ chronic illnesses with change and 2+ stable chronic illnesses Data: Unique test(s) ordered: 3+ Risk: Moderate: Drug management Medical Decision Making Level: 4 - Moderate Glenny Luque MD The documentation for this note was completed by Leeanne Sterling MA acting as scribe for Glenny Luque MD. November 26, 2024 1:57 PM. Leeanne Sterling MA documented in this encounter [facility] 11-26-2024 Note HNO ID: [id number] Author: GLENNY LUQUE MD Service: ? Author Type: Physician Type: Progress Notes Filed: 11/26/2024 16:56 Note Text: Alvarado Cohen is a 79 year old female here for a Medicare wellness visit. Tobacco - Former 1 ppd smoker, but is making an effort to slow down. Now only smoking 10 cigarettes per day. Doing this on her own. Plans on using a patch in the future when ready to quit. GI/Uro - Denies any stomach, bowel or urinary issues. HTN - Checks BP periodically at home. Scheduled visit today for elevated BP today which is an ongoing issue for her. Reports BP readings are high, yesterday was 150-170/60's. BP has not been in the 130's in a decade. Her BP in the 140's 3-5 years ago and has continued to get higher now despite using medication. Denies any chest pain or dizziness. Does get some sob. Currently taking Amlodipine 10 mg once daily, Hydralazine 25 mg 1 tab po TID, Lisinopril 30 mg 1 tab po bid, Toprol XL 50 mg 1 tab po bid and Chlorthalidone 25 mg once daily. Has been advised by Vascular to see [facility] for her HTN and renal artery issues. Nephro - Follows with Dr. Govea in Nephrology. Has f/u with her in February with routine blood work. Vascular - Follows with Vascular, and had an US that showed 2 renal arteries in her kidney. One was small that had plaque/crystals and this is why a stent couldn't be placed. Attempted to have a renal stent placed on 10/07/24, but was not able too. She's only seen him twice. They recommended she f/u with a Provider at [facility] to monitor this and her BP. Vascular has asked pt if she has leg pain or cramping or other symptoms. Pt does note when walking her legs are sore and stop working. She has to stop and it will improve. Does have some vision issues or blurred vision, but unsure if this is related to cataracts. Has f/u with Dr. Sifuentes in regards to this. Pt denies having any other vascular testing done on her legs. Diet/Exercise - Reports diet is pretty good. Doesn't exercise as much as she used too. Previously used to walk a lot. Osteoporosis - Takes Calcium + D twice daily. Is overdue for Bone Density screening, last one completed in 2016. HM - Has Adv Dir/Living Will scanned into chart. Depression/Anxiety Screening negative, with first two questions. Overdue for BMD. Medicare Health Risk Assessment General Health Fair Exercise: Minutes/Day 20 min Exercise: Days/Week 3 days Alcohol: Daily Use Never Alcohol: Drinks/Day Patient does not drink Alcohol: 6 or more drinks Never Feel off balance No Concerns: Teeth/Dentures No Concerns: Sexual function No Troubled by feelings None of the above Frequency: Eating healthy diet More than half the days ADLs requiring help None of the above Safety precautions in home/vehicle Yes Smoke, vape, chews tobacco Yes, and I might quit Difficulty hearing No Difficulty seeing No Current Providers Specialists: I have reviewed specialist-related care of the patient in the medical record. Current care team: Patient Care Team: Glenny Luque MD as PCP - General (Family Medicine) Laurel Toure APRN.NIKKI as [employer] (Family Medicine) Hans Mccray APRN.CORPORATE TRAVEL EXPERT as [employer] (Family Medicine) Porfirio Mei MD - Vascular Nora Govea DO - Nephrology Dr. Sifuentes - Ophthalmology Dr. Christensen - Dentistry Medical/Family history review Reviewed and updated problem list, medical/surgical/family/social history, medications, and allergies. Opioid use review Opioid Medications (last 90 days) No data to display Anxiety/Depression screening PHQ-9 Score: 0. CHADWICK-7 Score: 1 (Minimal Anxiety) Recommendation: no further intervention at this time Cognitive screening Cognitive screening reviewed and No further action needed (score 3-5). Functional Observation Was the patient's Timed Up AND Go test unsteady or >= 12 seconds? No Advance Care Planning Surrogate decision maker and/or advance care plan documented Physical Exam Constitutional: Appearance: Normal appearance. Cardiovascular: Rate and Rhythm: Normal rate and regular rhythm. Pulses: Normal pulses. Heart sounds: Normal heart sounds. No murmur heard. Pulmonary: Effort: Pulmonary effort is normal. No respiratory distress. Breath sounds: Normal breath sounds. No wheezing, rhonchi or rales. Musculoskeletal: General: No swelling. Neurological: General: No focal deficit present. Mental Status: She is alert and oriented to person, place, and time. Psychiatric: Mood and Affect: Mood normal. Behavior: Behavior normal. Measurements BP 166/64 Pulse 70 Resp 18 Ht 157.5 cm (5' 2) Wt 55 kg (121 lb 4.1 oz) BMI 22.18 kg/m? Vision Screening: Follows with optometry/ophthalmology Assessment/Plan Medicare annual wellness visit, subsequent (Z00.00) - Counseled on healthy diet and regular exercise - Fall avoidance information provided - Personalized prevention plan provided - Smoking cessation encou (more content not included)... [facility] 10-07-2024 Note [facility] Medical Records Department [address] [place] [address] History Physical Exam 10/07/24 0753 MR#: [id number] Acct: [id number] Name: ALVARADO COHEN CALLI Rep #: [id number] : 1945 79 From: Porfirio Mei MD PCP: Dr. Glenny Luque MD Status:[facility] Location: [facility] HPI - General HPI Narrative ALVARADO COHEN, is a 79 F who presents with worsening hypertension on multiple medications. She had a duplex that revealed right renal artery stenosis. [facility] Medical History Renal artery stenosis HTN (hypertension) Home Medications ???Medication ???Instructions ???Recorded ???Last Taken ???Type amlodipine 10 mg tablet 10 mg PO DAILY 03/21/23 10/07/24 History calcium carbonate (Calcium 600) 1,200 mg PO QDAY 08/27/24 Unknown History chlorthalidone 25 mg tablet 25 mg PO QDAY 08/27/24 Unknown History metoprolol succinate 50 mg 50 mg PO BID 08/27/24 10/07/24 History tablet,extended release 24 hr multivitamin (Daily Multi-Vitamin 1 tab PO QAM 08/27/24 Unknown History tablet) hydralazine 25 mg tablet 25 mg PO BID high blood pressure 10/06/24 Unknown History lisinopril 30 mg tablet 30 mg PO BID High blood pressure 10/06/24 10/07/24 History Allergy/AdvReac Type Severity Reaction Status Date / Time No Known Allergies Allergy Verified 08/27/24 13:16 Family History Other Asthma Cancer Hypertension Surgical History H/O cone biopsy of cervix ( 1977) Social History Smoking Status: Heavy Smoker (>10/day) Tobacco: How many years used: 40 quit status: considering quitting ROS Constitutional Constitutional: Denies chills, fever(s), frequent falls, lethargy or weakness Eyes Eyes: Denies blind spots, change in vision or loss of vision ENT HEENT: Denies bleeding gums, hoarseness or sore throat Cardiovascular Cardiovascular: Denies abdominal pain, bluish discoloration of hand/feet, chest pain with activity, claudication, cold extremities, cyanosis, dyspnea on exertion, erythema on extremities, irregular heart rhythm, leg edema, leg ulcers, numbness in extremities or weakness in extremities Respiratory/Chest Respiratory/Chest: Denies cough, excessive phlegm production, shortness of breath at rest, shortness of breath with exertion or wheezing Gastrointestinal Gastrointestinal: Denies anorexia, change in stool character, constipation, diarrhea, melena or rectal bleeding Genitourinary Genitourinary: Denies dysuria or hematuria Musculoskeletal Musculoskeletal: Denies abnormal gait Integumentary Integumentary: Reports other Details: ; Denies erythema, non-healing lesions or wounds Neurologic Neurologic: Denies abnormal speech, focal weakness, headache(s), loss of vision, numbness, paresthesias or sensory deficit Hematologic/Lymphatic Hematologic/Lymphatic: Denies easy bleeding, easy bruising or lymphadenopathy Vital Signs Vital Signs Vital Signs: Weight Weight: 122 lb Body Mass Index (BMI) 21.6 Physical Exam Const alert, oriented x3, no apparent distress and healthy appearing General Appearance: cooperative; Negative for combative or lethargic Orientation / Consciousness: awake Exam Limitations: no limitations HEENT Head and Scalp: normocephalic and atraumatic Eyes EOMs intact bilaterally General Eye: normal appearance of both eyes Neck full ROM and no lymphadenopathy Resp normal respiratory effort and no use of accessory muscles Effort and Inspection: Negative for labored, stridor or audible wheezes Cardio regular rate and regular rhythm Back/Spine Cervical Spine: cervical ROM normal Extremity full ROM, normal capillary refill and no clubbing, cyanosis or edema Skin no rashes or lesions noted and no wounds Neuro oriented x3, CN's II-XII intact bilaterally, no focal motor deficits and no sensory deficits noted Psych thought process normal, cooperative, affect normal, speech normal and activity/motor behavior normal Results Lab / Micro Data 10/07/24 07:06 10/07/24 07:06 Labs: Laboratory Results - last 24 hr 10/07/24 07:06: WBC 11.5 H, RBC 3.97 L, Hgb 11.8 L, Hct 35.6 L, MCV 89.7, MCH 29.7, MCHC 33.1, RDW Std Deviation 47.9 H, RDW Coeff of Cathleen 14.5, Plt Count 273, MPV 9.0 Assessment Plan Assessment/Plan (1) Renal artery stenosis: PLAN: -angiogram possible stent 10/07/24 5941 Cosigner Signature (if applicable): CC: Dr. Porfirio Mei MD; Dr. Glenny Luque MD Signed [facility] 09-25-2024 History of Present illness Narrative Radiology Service Progress Note PATIENT NAME: Alvarado Cohen DATE OF SERVICE: September 25, 2024 TIME: 1:27 PM PATIENT IDENTITY VERIFICATION COMPLETED USING TWO (2) IDENTIFIERS: Name and Date of confirmed by patient verbally. FALL SCREENING: Has the patient had 2 falls in the last year or 1 fall with injury or currently using an Ambulatory Assistive Device (Walker, Cane, Wheelchair, Crutches, etc.)? No PATIENT GENDER DATA: Female. status: : No status: NO. PATIENT RELEVANT IMPLANT DATA REVIEWED: Not Applicable PATIENT PRESENTS WITH AN IMPLANTABLE OR ATTACHED SUPERANNUATION CLERK: No RADIOLOGY DEPARTMENT: Mammography PERIPHERAL IV DATA: Not applicable SIGNED BY: RT David(Lang) September 25, 2024 1:27 PM documented in this encounter [facility] 09-25-2024 Note HNO ID: [id number] Author: SHANTA GARRISON RT(R) Service: ? Author Type: Technologist Type: Progress Notes Filed: 09/25/2024 13:27 Note Text: Radiology Service Progress Note PATIENT NAME: Alvarado Cohen DATE OF SERVICE: September 25, 2024 TIME: 1:27 PM PATIENT IDENTITY VERIFICATION COMPLETED USING TWO (2) IDENTIFIERS: Name and Date of confirmed by patient verbally. FALL SCREENING: Has the patient had 2 falls in the last year or 1 fall with injury or currently using an Ambulatory Assistive Device (Walker, Cane, Wheelchair, Crutches, etc.)? No PATIENT GENDER DATA: Female. status: : No status: NO. PATIENT RELEVANT IMPLANT DATA REVIEWED: Not Applicable PATIENT PRESENTS WITH AN IMPLANTABLE OR ATTACHED SUPERANNUATION CLERK: No RADIOLOGY DEPARTMENT: Mammography PERIPHERAL IV DATA: Not applicable SIGNED BY: RT David(Lang) September 25, 2024 1:27 PM [facility] 09-18-2024 Note HNO ID: [id number] Author: JELANI OZUNA MA Service: ? Author Type: Prepress Technician Type: Progress Notes Filed: 09/18/2024 13:45 Note Text: POPULATION HEALTH NAVIGATION OUTREACH Action/FYI Return in about 3 months (around 2024) for with Dr. Luque in 3 month. Spoke to patient and scheduled Medicare Wellness Exam. Reason for Outreach Care Gap/HCC or Scheduling Wellness Visits Care Gaps due: Medicare Annual Wellness Visit Follow-up Appointment Controlling Blood Pressure Patient Contacted: Spoke to patient/parent/or legal guardian Patient identified by name and : Yes Care Gap/HCC/Scheduling Wellness actions taken: Patient scheduled/pended orders: Medicare Annual Wellness Visit 11/09/2024 in [facility] with GLENNY LUQUE AWV is PRIMARY/Follow up , For BOTH use modifier 25 Navigation Signature: Jelani Ozuna MA September 18, 2024 1:37 PM [facility] 09-18-2024 History of Present illness Narrative POPULATION HEALTH NAVIGATION OUTREACH Action/FYI Return in about 3 months (around 2024) for with Dr. Luque in 3 month. Spoke to patient and scheduled Medicare Wellness Exam. Reason for Outreach Care Gap/HCC or Scheduling Wellness Visits Care Gaps due: Medicare Annual Wellness Visit Follow-up Appointment Controlling Blood Pressure Patient Contacted: Spoke to patient/parent/or legal guardian Patient identified by name and : Yes Care Gap/HCC/Scheduling Wellness actions taken: Patient scheduled/pended orders: Medicare Annual Wellness Visit 11/09/2024 in [facility] with GLENNY LUQUE AWV is PRIMARY/Follow up , For BOTH use modifier 25 Navigation Signature: Jelani Ozuna MA September 18, 2024 1:37 PM documented in this encounter [facility] 09-18-2024 Note Patient Outreach (JEREMI TNAV) ALVARADO COHEN ([id number]) 1945 F Date Time Provider Department 09/18/24 SULMAJELANI ZACKERYRAYNEDoreen During your visit today, we recorded the following information about you: Sulma JelaniELDER wharton 09/18/2024 1:45 PM Signed POPULATION HEALTH NAVIGATION OUTREACH Action/FYI Return in about 3 months (around 2024) for with Dr. Luque in 3 month. Spoke to patient and scheduled Medicare Wellness Exam. Reason for Outreach Care Gap/HCC or Scheduling Wellness Visits Care Gaps due: Medicare Annual Wellness Visit Follow-up Appointment Controlling Blood Pressure Patient Contacted: Spoke to patient/parent/or legal guardian Patient identified by name and : Yes Care Gap/HCC/Scheduling Wellness actions taken: Patient scheduled/pended orders: Medicare Annual Wellness Visit 11/09/2024 in [facility] with GLENNY LUQUE is PRIMARY/Follow up , For BOTH use modifier 25 Navigation Signature: Jelani Ozuna MA September 18, 2024 1:37 PM Allergies As of Date: 09/18/2024 Noted Allergy Reaction CODEINE 09/10/2005 SPIRONOLACTONE 07/08/2019 14 - Other: See Comments Comments: lightheadedness SULFA (SULFONAMIDE ANTIBIOTICS) 09/10/2005 Date Reviewed: 07/24/2024 Reviewed by: Nelly Tate LPN - Fully Assessed Reason for Visit: Population Health Navigation Outreach [3910] Cmt: ACO QAE Surge list 2023 Prescriptions as of 09/18/2024 - hydrALAZINE (APRESOLINE) 25 mg tablet Take 1 tablet by mouth two times a day. - lisinopril (ZESTRIL) 30 mg tablet Take 1 tablet by mouth two times a day. - chlorthalidone (HYGROTON) 25 mg tablet Take 1 tablet by mouth once daily. - amLODIPine (NORVASC) 10 mg tablet Take 1 tablet by mouth once daily. - metoprolol succinate ER (TOPROL XL) 50 mg 24 hr tablet Take 1 tablet by mouth two times a day. - aspirin 325 mg tablet Take 325 mg by mouth as needed. - CALCIUM 600 + D 600 MG-125 UNIT TAB Take one(1) tablet twice daily. Problem List As Of Date 09/18/2024 Noted Resolved Essential hypertension, benign [I10] 09/11/2005 Osteoporosis [M81.0] 08/26/2007 Vitamin D deficiency [E55.9] 09/03/2007 04/10/2017 Tobacco abuse [Z72.0] 10/11/2010 Hyperlipidemia with target LDL less than 100 [E*01/13/2013 Hypokalemia [E87.6] 02/26/2014 04/10/2017 Right carotid bruit [R09.89] 03/23/2015 Encounter Status:Closed by JELANI OZUNA on 09/18/24 [facility] 07-24-2024 Note HNO ID: [id number] Author: ALLIE LYNCH APRN.CORPORATE TRAVEL EXPERT Service: ? Author Type: Nurse Practitioner Type: Progress Notes Filed: 07/24/2024 11:37 Note Text: Subjective Came in concerned about a wound that she has on her right thumb. Patient says she hit it on a cheese rater. Patient says it has not seemed to stop bleeding since yesterday. Is also aware that her blood pressure is high says that her physicians are in the process of dealing with it and it has been bad for years. Patient is going to a specialist. Patient has no symptoms related to the high blood pressure. Patient also has a laceration on the left index finger. Patient says this was with a knife last night. Patient said both happened while she was trying to make dinner. She said the one on the left finger seems to have stopped bleeding. The history is provided by the patient. No speech language specialist was used. Laceration Review of Systems Constitutional: Negative. Skin: Negative. Objective Physical Exam Constitutional: Appearance: Normal appearance. Pulmonary: Effort: Pulmonary effort is normal. Musculoskeletal: Hands: Comments: Yellow area Lora clean laceration edges well-approximated no signs of infection. Purple area lora an avulsion very small maybe half a centimeter in diameter. It is continuously bleeding. Neurological: Mental Status: She is alert. PAST MEDICAL HISTORY Diagnosis Date BENIGN HYPERTENSION 09/11/2005 Benign hypertensive heart disease without heart failure Disorder of bone and cartilage, unspecified Diverticulosis of colon (without mention of hemorrhage) Hyperlipidemia LDL goal < 100 01/13/2013 Hypokalemia 02/26/2014 Internal hemorrhoids without mention of complication OSTEOPOROSIS NOS 08/26/2007 Tobacco abuse 10/11/2010 VITAMIN D DEFICIENCY NOS 09/03/2007 PAST SURGICAL HISTORY Procedure Laterality Date COLONOSCOPY FLX DX W/COLLJ SPEC WHEN PFRMD 02/18/07 COLONOSCOPY FLX DX W/COLLJ SPEC WHEN PFRMD 06/10/2017 Colonoscopy ALLERGIES Codeine, Spironolactone, and Sulfa (Sulfonamide Antibiotics) MEDICATIONS hydrALAZINE (APRESOLINE) 25 mg tablet Take 1 tablet by mouth two times a day. lisinopril (ZESTRIL) 30 mg tablet Take 1 tablet by mouth two times a day. chlorthalidone (HYGROTON) 25 mg tablet Take 1 tablet by mouth once daily. amLODIPine (NORVASC) 10 mg tablet Take 1 tablet by mouth once daily. metoprolol succinate ER (TOPROL XL) 50 mg 24 hr tablet Take 1 tablet by mouth two times a day. aspirin 325 mg tablet Take 325 mg by mouth as needed. CALCIUM 600 + D 600 MG-125 UNIT TAB Take one(1) tablet twice daily. FAMILY HISTORY Problem Relation Age of Onset Psychiatry Mother ANXIETY Cancer Father RENAL No Known Problems Brother Arthritis Paternal Grandmother Hypertension Paternal Grandfather Social History Tobacco Use Smoking status: Every Day Current packs/day: 1.00 Average packs/day: 1 pack/day for 45.0 years (45.0 ttl pk-yrs) Types: Cigarettes Smokeless tobacco: Never Vaping Use Vaping status: Never Used Substance Use Topics Alcohol use: No Drug use: No ASSESSMENT/PLAN: 1. Open wound - ICD9: 879.8, ICD10: T14.8XXA Presents with cleansed with clobetasol and sterile water. No foreign bodies noted. Silver nitrate was used on the right thumb. Patient tolerated well. Bleeding has seem to stop. Instructed patient to watch for infection. Patient was okay with this care plan. Both wounds were redressed. Allie Lynch APRN.[facility] 07-24-2024 History of Present illness Narrative Images from the original note were not included. Subjective Came in concerned about a wound that she has on her right thumb. Patient says she hit it on a cheese rater. Patient says it has not seemed to stop bleeding since yesterday. Is also aware that her blood pressure is high says that her physicians are in the process of dealing with it and it has been bad for years. Patient is going to a specialist. Patient has no symptoms related to the high blood pressure. Patient also has a laceration on the left index finger. Patient says this was with a knife last night. Patient said both happened while she was trying to make dinner. She said the one on the left finger seems to have stopped bleeding. The history is provided by the patient. No speech language specialist was used. Laceration Review of Systems Constitutional: Negative. Skin: Negative. Objective Physical Exam Constitutional: Appearance: Normal appearance. Pulmonary: Effort: Pulmonary effort is normal. Musculoskeletal: Hands: Comments: Yellow area Lora clean laceration edges well-approximated no signs of infection. Purple area lora an avulsion very small maybe half a centimeter in diameter. It is continuously bleeding. Neurological: Mental Status: She is alert. PAST MEDICAL HISTORY Diagnosis Date BENIGN HYPERTENSION 09/11/2005 Benign hypertensive heart disease without heart failure Disorder of bone and cartilage, unspecified Diverticulosis of colon (without mention of hemorrhage) Hyperlipidemia LDL goal < 100 01/13/2013 Hypokalemia 02/26/2014 Internal hemorrhoids without mention of complication OSTEOPOROSIS NOS 08/26/2007 Tobacco abuse 10/11/2010 VITAMIN D DEFICIENCY NOS 09/03/2007 PAST SURGICAL HISTORY Procedure Laterality Date COLONOSCOPY FLX DX W/COLLJ SPEC WHEN PFRMD 02/18/07 COLONOSCOPY FLX DX W/COLLJ SPEC WHEN PFRMD 06/10/2017 Colonoscopy ALLERGIES Codeine, Spironolactone, and Sulfa (Sulfonamide Antibiotics) MEDICATIONS hydrALAZINE (APRESOLINE) 25 mg tablet Take 1 tablet by mouth two times a day. lisinopril (ZESTRIL) 30 mg tablet Take 1 tablet by mouth two times a day. chlorthalidone (HYGROTON) 25 mg tablet Take 1 tablet by mouth once daily. amLODIPine (NORVASC) 10 mg tablet Take 1 tablet by mouth once daily. metoprolol succinate ER (TOPROL XL) 50 mg 24 hr tablet Take 1 tablet by mouth two times a day. aspirin 325 mg tablet Take 325 mg by mouth as needed. CALCIUM 600 + D 600 MG-125 UNIT TAB Take one(1) tablet twice daily. FAMILY HISTORY Problem Relation Age of Onset Psychiatry Mother ANXIETY Cancer Father RENAL No Known Problems Brother Arthritis Paternal Grandmother Hypertension Paternal Grandfather Social History Tobacco Use Smoking status: Every Day Current packs/day: 1.00 Average packs/day: 1 pack/day for 45.0 years (45.0 ttl pk-yrs) Types: Cigarettes Smokeless tobacco: Never Vaping Use Vaping status: Never Used Substance Use Topics Alcohol use: No Drug use: No ASSESSMENT/PLAN: 1. Open wound - ICD9: 879.8, ICD10: T14.8XXA Presents with cleansed with clobetasol and sterile water. No foreign bodies noted. Silver nitrate was used on the right thumb. Patient tolerated well. Bleeding has seem to stop. Instructed patient to watch for infection. Patient was okay with this care plan. Both wounds were redressed. Allie Lynch APRN.NIKKI documented in this encounter [facility] 03-26-2024 Telephone encounter Note Patient calling she phoned Dr Alexander Govea office to make appt and they did not have her information. Printed Nephrology consult, insurance card, face sheet, office notes, labs and imaging and faxed to [phone] as requested. [facility] 03-26-2024 Miscellaneous Notes Patient calling she phoned Dr Alexander Govea office to make appt and they did not have her information. Printed Nephrology consult, insurance card, face sheet, office notes, labs and imaging and faxed to [phone] as requested. documented in this encounter [facility] 03-23-2024 Telephone encounter Note Pt called in and she is having problems getting medication Hygroton from [facility]. I called for pt and and they were holding medication. They had 2 questions. 1) they showed pt on HCTZ. , Our records show this was discontinued. 2) they showed pt has allergy to sulfa. [facility] releasing medication to be shipped.pt to get in 3 to 4 days. If pt does not get by Saturday03-30-28 or 03-31-24, she will call for another short term to be sent to local pharmacy. I called pt back to verify not on HCTZ. Pt said no she is no longer taking this. I checked with pt regarding sulfa allergy and pt reports she is taking the medication Hygroton and not having any problems and she is not even sure if she has an allergy to this. Yecenia Salcedo LPN [facility] 03-23-2024 Miscellaneous Notes Pt called in and she is having problems getting medication Hygroton from [facility]. I called for pt and and they were holding medication. They had 2 questions. 1) they showed pt on HCTZ. , Our records show this was discontinued. 2) they showed pt has allergy to sulfa. [facility] releasing medication to be shipped.pt to get in 3 to 4 days. If pt does not get by Saturday03-30-28 or 03-31-24, she will call for another short term to be sent to local pharmacy. I called pt back to verify not on HCTZ. Pt said no she is no longer taking this. I checked with pt regarding sulfa allergy and pt reports she is taking the medication Hygroton and not having any problems and she is not even sure if she has an allergy to this. Yecenia Salcedo LPN documented in this encounter [facility] 03-23-2024 Telephone encounter Note Patient phones requesting refills as follows: Requested Prescriptions Pending Prescriptions Disp Refills hydrALAZINE (APRESOLINE) 25 mg tablet 180 tablet 1 Sig: Take 1 tablet by mouth two times a day. Patient would like to have this at [facility] for mail order instead of local. Please review and advise. Rosa Ram LPN [facility] 03-23-2024 Miscellaneous Notes Patient phones requesting refills as follows: Requested Prescriptions Pending Prescriptions Disp Refills hydrALAZINE (APRESOLINE) 25 mg tablet 180 tablet 1 Sig: Take 1 tablet by mouth two times a day. Patient would like to have this at [facility] for mail order instead of local. Please review and advise. Rosa Ram LPN documented in this encounter [facility] 03-20-2024 Instructions Hans Mccray APRN.CNP - 03/20/2024 10:29 AM EDT Schedule with Natural Resource Technician, Dr. Nora Govea [facility], [facility]. Address: [address] [place] [address], [place] [address] Increase Hydralazine to 25 mg twice daily Go to the ER for chest pain, dizziness, blurry vision See us back 3 months. Hans Mccray APRN.NIKKI documented in this encounter [facility] 03-20-2024 History of Present illness Narrative BP Manual readin/66 Pulse: 71 LEFT arm LARGE cuff BP Chasity Average: 200/67 Pulse: 63 RIGHT arm LARGE cuff 1. 208/67 Pulse: 72 2. 206/67 Pulse: 63 3. 199/65 Pulse: 62 4. 196/68 Pulse: 65 BP CHASITY AVERAGE: 200/67 Pulse: 63 Chief Complaint Patient presents with: F/U 1 month: Blood pressure HPI Alvarado Cohen is a 78 year old female who presents here today for Chronic Medical Conditions. Here for 1 month follow-up for resistant hypertension. Last month we did get an ultrasound of her kidneys to rule out renal artery stenosis, this ultrasound was normal. Her aldosterone to renin ratio was also normal. We stopped her hydrochlorothiazide and started on chlorthalidone. Increase her lisinopril to 60 mg total daily. She is also on amlodipine 10 mg, hydralazine 10 mg twice daily. HTN: Patient is compliant with meds Yes Monitors bp at home: Yes. Readings from March 01 daily onto this week show a systolic ranging from 142 to 160s, diastolic in the 60s or 70s. Denies side effects: Yes. Chest pain: No. Dyspnea: No. Edema: No. Palpitations: No. Syncope: No. Headache: No. Dizziness: No. Past medical history, appointments, medications, allergies reviewed. EXAM: BP 200/67 Pulse 63 Resp 16 Wt 56 kg (123 lb 6.4 oz) SpO2 99% BMI 21.86 kg/m Left Arm: 200/80 Right Arm: 210/82 General Appearance: Well appearing, alert, in no acute distress, well-hydrated, well nourished.. Lungs: Lungs clear to auscultation. No wheezing, rhonchi, rales.. Heart: RRR without murmur, gallop, or rubs. No ectopy. Latest Ref Rng 02/17/2024 Glucose 74 - 99 mg/dL 113 (H) BUN 7 - 21 mg/dL 17 Creatinine 0.58 - 0.96 mg/dL 0.85 Sodium 136 - 144 mmol/L 135 (L) Potassium 3.7 - 5.1 mmol/L 4.8 Chloride 97 - 105 mmol/L 97 CO2 22 - 30 mmol/L 27 Anion Gap 9 - 18 mmol/L 11 Calcium 8.5 - 10.2 mg/dL 10.4 (H) eGFR >=60 mL/min/1.73m 71 Aldosterone 0.0 - <35.4 ng/dL 5.8 Direct Renin 3.6 - 81.6 pg/mL 7.4 Aldosterone/Renin Ratio <3.8 0.8 Patient Upright or Supine Upright Impression IMPRESSION: 1. No acute renal abnormality detected. Veterans Adviser: ALEX Transcribe Date/Time: Mar 10 2024 8:27A Dictated by : MOISES MURPHY MD This examination was interpreted and the report reviewed and electronically signed by: MOISES MURPHY MD on Mar 10 2024 8:31AM EST ASSESSMENT/PLAN: 1. Essential hypertension, benign - ICD9: 401.1, ICD10: I10 (primary diagnosis) - Uncontrolled - Increase Hydralazine, continue other medications. Continue to monitor blood pressure at home. Patient will schedule with nephrology, gave contact number for Dr. Govea as patient did not want to leave the area. Discussed with patient if she were to have chest pain, blurry vision, extreme headache, she would need to go to emergency room immediately. - Recommend home blood pressure monitoring, to bring results to next visit - Encouraged sodium restriction, DASH or Mediterranean diet - Recommend regular aerobic exercise - CONSULT TO NEPHROLOGY - HYDRALAZINE 25 MG TABLET - LISINOPRIL 30 MG TABLET - CHLORTHALIDONE 25 MG TABLET 2. Uncontrolled hypertension - ICD9: 401.9, ICD10: I10 - see above - CONSULT TO NEPHROLOGY - HYDRALAZINE 25 MG TABLET Hans Mccray APRN.CNP RTO in 3 months, sooner if needed. This note was partly generated using [email or web address] voice recognition dictation and may contain some misspelled or inaccurate words missed on review. documented in this encounter [facility] 03-10-2024 Telephone encounter Note Pt notified of results via [employer]. Tiffanie Ruff Ma [facility] 03-10-2024 Miscellaneous Notes Pt notified of results via [employer]. Tiffanie Ruff Ma Please let the patient know that her ultrasound of the kidneys is normal. No kidney disease that would be cause for resistant hypertension. Continue with current medications and follow ups as scheduled. Hans Mccray APRN.CNP documented in this encounter [facility] 03-10-2024 Telephone encounter Note Pt notified via [employer]. Tiffanie Ruff MA [facility] 03-10-2024 Miscellaneous Notes Pt notified via [employer]. Tiffanie Ruff MA documented in this encounter [facility] 03-10-2024 Telephone encounter Note Please let the patient know that her ultrasound of the kidneys is normal. No kidney disease that would be cause for resistant hypertension. Continue with current medications and follow ups as scheduled. Hans Mccray APRN.CNP [facility] 03-09-2024 Telephone encounter Note The following approved medication requests have been transmitted electronically. Requested Prescriptions Pending Prescriptions Disp Refills amLODIPine (NORVASC) 10 mg tablet 90 tablet 3 Sig: Take 1 tablet by mouth once daily. hydrALAZINE (APRESOLINE) 10 mg tablet 28 tablet 0 Sig: Take 1 tablet by mouth two times a day. metoprolol succinate ER (TOPROL XL) 50 mg 24 hr tablet 180 tablet 3 Sig: Take 1 tablet by mouth two times a day. Hans Mccray APRN.CNP [facility] 03-09-2024 Miscellaneous Notes The following approved medication requests have been transmitted electronically. Requested Prescriptions Pending Prescriptions Disp Refills amLODIPine (NORVASC) 10 mg tablet 90 tablet 3 Sig: Take 1 tablet by mouth once daily. hydrALAZINE (APRESOLINE) 10 mg tablet 28 tablet 0 Sig: Take 1 tablet by mouth two times a day. metoprolol succinate ER (TOPROL XL) 50 mg 24 hr tablet 180 tablet 3 Sig: Take 1 tablet by mouth two times a day. Hans Mccray APRN.CNP Patient stopped by office requesting refill on Hydralazine. Unable to refill mail order documented 04/16 as next fill date but will run out. Verified with [facility] unsure why there was a date of 04/16. Pushed refill through & insurance covered. Patient will need a 2 week supply for Hydralazine to go to [facility] to cover until mail order comes in. Pended as appropriate with 2 additional meds to go to mail order. Lala Brewer MA documented in this encounter [facility] 03-09-2024 Telephone encounter Note Patient stopped by office requesting refill on Hydralazine. Unable to refill mail order documented 04/16 as next fill date but will run out. Verified with [facility] unsure why there was a date of 04/16. Pushed refill through & insurance covered. Patient will need a 2 week supply for Hydralazine to go to [facility] to cover until mail order comes in. Pended as appropriate with 2 additional meds to go to mail order. Lala Brewer MA [facility] 03-06-2024 History of Present illness Narrative Radiology Service Progress Note PATIENT NAME: Alvarado Cohen DATE OF SERVICE: March 06, 2024 TIME: 1:33 PM PATIENT IDENTITY VERIFICATION COMPLETED USING TWO (2) IDENTIFIERS: Name and Date of confirmed by patient verbally. FALL SCREENING: Has the patient had 2 falls in the last year or 1 fall with injury or currently using an Ambulatory Assistive Device (Walker, Cane, Wheelchair, Crutches, etc.)? No PATIENT GENDER DATA: Female. status: : No status: NO. PATIENT RELEVANT IMPLANT DATA REVIEWED: Not Applicable PATIENT PRESENTS WITH AN IMPLANTABLE OR ATTACHED SUPERANNUATION CLERK: No RADIOLOGY DEPARTMENT: Ultrasound PERIPHERAL IV DATA: Not applicable SIGNED BY: Laly Kauffman RDMS RVT March 06, 2024 1:33 PM documented in this encounter [facility] 02-18-2024 Miscellaneous Notes Patient active [employer]. Patient notified via Greetz message. Lala Brewer MA Please let the patient know that her glucose, kidney function is normal. Her aldosterone to renin ratio is normal. This is not the cause of her resistant hypertension. Calcium is just mildly elevated, likely secondary to hydrochlorothiazide use. This should resolve since we stopped that medication. Continue with plan to see us back in 1 month. Hans Mccray APRN.CNP documented in this encounter [facility] 02-17-2024 Instructions Hans Mccray APRN.CNP - 02/17/2024 11:46 AM EDT Get blood work today Schedule ultrasound of kidneys Stop hydrochlorothiazide Start Chlorthalidone 25 mg daily Start new prescription for Lisinopril 30 mg twice daily. This replaces the Lisinopril 40 mg. See us back in 4 weeks. Hans Mccray APRN.CNP documented in this encounter [facility] 02-17-2024 History of Present illness Narrative Chief Complaint Patient presents with: Follow Up For: Blood pressure HPI Alvarado Cohen is a 78 year old female who presents here today for Chronic Medical Conditions. follow up for HTN. HTN: Patient is compliant with meds Yes Monitors bp at home: Yes. Getting elevated readings 170 to 180 systolic. Denies side effects: Yes. Chest pain: No. Dyspnea: No. Edema: No. Palpitations: No. Syncope: No. Headache: No. Dizziness: No. She is on 5 current antihypertensives. No recent blood work. Past medical history, appointments, medications, allergies reviewed. EXAM: BP 188/67 (BP Site: Left Arm, BP Position: Sitting, BP Cuff Size: Regular Adult) Pulse 71 Resp 16 Wt 56.2 kg (123 lb 12.8 oz) SpO2 99% BMI 21.93 kg/m General Appearance: Well appearing, alert, in no acute distress, well-hydrated, well nourished.. Lungs: Lungs clear to auscultation. No wheezing, rhonchi, rales.. Heart: RRR without murmur, gallop, or rubs. No ectopy ASSESSMENT/PLAN: 1. Essential hypertension, benign - ICD9: 401.1, ICD10: I10 (primary diagnosis) - Uncontrolled -Continue metoprolol, hydralazine, amlodipine. Stop hydrochlorothiazide, start chlorthalidone. Increase lisinopril from 40 mg daily to 30 mg twice daily. - Resistant hypertension workup ordered: Aldosterone to renin ratio and Renal artery duplex ultrasound - Recommend home blood pressure monitoring, to bring results to next visit - Encouraged sodium restriction, DASH or Mediterranean diet - Recommend regular aerobic exercise - CHLORTHALIDONE 25 MG TABLET - US KIDNEY/BLADDER - LISINOPRIL 30 MG TABLET - BASIC METABOLIC PANEL - ALDOSTERONE/DIRECT RENIN RATIO 2. Resistant hypertension - ICD9: 401.9, ICD10: I1A.0 - see #1 - US KIDNEY/BLADDER - ALDOSTERONE/DIRECT RENIN RATIO Hans Mccray APRN.CORPORATE TRAVEL EXPERT RTO in 1 months, sooner if needed. This note was partly generated using [email or web address] voice recognition dictation and may contain some misspelled or inaccurate words missed on review. BP Manual readin/62 Pulse: 83 RIGHT arm REGULAR cuff BP Chasity Average: 188/67 Pulse: 71 LEFT arm REGULAR cuff 1. 199/74 Pulse: 71 2. 188/67 Pulse: 72 3. 189/65 Pulse: 71 4. 187/69 Pulse: 70 BP CHASITY AVERAGE: 188/67 Pulse: 71 documented in this encounter [facility] 02-06-2024 Miscellaneous Notes TC to patient who verbalized understanding of below. Patient now scheduled with Iveth Mccray on 02/16 for BP follow up. Nothing further at this time. LIVE Godinez Can you please call the patient and let her know that I refilled her blood pressure medication. However she is past due for a follow-up. Last time she was seen in the office blood pressure was still very high. Thank you. Laurel Toure APRN.CORPORATE TRAVEL EXPERT Pt was to f/u in 1 mo after last visit. No appt currently scheduled since seen in June, do you want to fill Rx? Leeanne Sterling MA Patient has been identified by name and date of : Yes, Provider Dr. Luque Date 02-06-24 Time 10:45 am Patient phones for refill(s): Requested Prescriptions Pending Prescriptions Disp Refills hydrALAZINE (APRESOLINE) 10 mg tablet 180 tablet 3 Sig: Take 1 tablet by mouth two times a day. Date of last office visit in primary care: 06/12/2023 Date of next office visit in primary care: Visit date not found Thank you. Dia Thompson. documented in this encounter [facility] 09-02-2023 Miscellaneous Notes The following approved medication requests have been transmitted electronically. Requested Prescriptions Pending Prescriptions Disp Refills hydrALAZINE (APRESOLINE) 10 mg tablet [Pharmacy Med Name: HYDRALAZINE 10 MG TABLET] 180 tablet 1 Sig: TAKE 1 TABLET BY MOUTH TWICE A DAY Hans Mccray APRN.CNP Requested Prescriptions Pending Prescriptions Disp Refills hydrALAZINE (APRESOLINE) 10 mg tablet [Pharmacy Med Name: HYDRALAZINE 10 MG TABLET] 180 tablet 1 Sig: TAKE 1 TABLET BY MOUTH TWICE A DAY OLGA 06/12/2023 NOV not scheduled at this time Candi Maldonado MA documented in this encounter [facility] 08-08-2023 Miscellaneous Notes August 09, 2023 PID: [id number] Alvarado Cohen [address] [place] [address] Dear Ms. Cohen, We are pleased to inform you that the results of your recent breast imaging exam on 08/08/2023 are normal. Your mammogram demonstrates that you have dense breast tissue, which could hide abnormalities. Dense breast tissue, in and of itself, is a relatively common condition. Therefore, this information is not provided to cause undue concern; rather, it is to raise your awareness and promote discussion with your health care provider regarding the presence of dense breast tissue in addition to other risk factors. Early detection of cancer is very important. We also understand recommendations regarding breast cancer screening are controversial. Please discuss with your primary care provider which strategy is best for you and whether a mammogram is right for you. Your imaging studies and report will be kept on file at [facility] as part of your permanent medical record and are available for your continuing care. Thank you for allowing us to help in meeting your health care needs. Sincerely, Dr. Tejada Interpreting Radiologist [facility] (Normal over 40) documented in this encounter [facility] 08-08-2023 History of Present illness Narrative Radiology Service Progress Note PATIENT NAME: Alvarado Cohen DATE OF SERVICE: August 08, 2023 TIME: 11:05 AM PATIENT IDENTITY VERIFICATION COMPLETED USING TWO (2) IDENTIFIERS: Name and Date of confirmed by patient verbally. FALL SCREENING: Has the patient had 2 falls in the last year or 1 fall with injury or currently using an Ambulatory Assistive Device (Walker, Cane, Wheelchair, Crutches, etc.)? No PATIENT GENDER DATA: Female. status: : No status: NO. PATIENT RELEVANT IMPLANT DATA REVIEWED: Not Applicable RADIOLOGY DEPARTMENT: Mammography PERIPHERAL IV DATA: Not applicable SIGNED BY: Carolina Downing [place] August 08, 2023 11:05 AM documented in this encounter [facility] 07-11-2023 Miscellaneous Notes The following approved medication requests have been transmitted electronically. Requested Prescriptions Pending Prescriptions Disp Refills hydrALAZINE (APRESOLINE) 10 mg tablet 60 tablet 1 Sig: Take 1 tablet by mouth twice daily. Laurel Toure APRN.CNP Patient phones requesting refills as follows: Requested Prescriptions Pending Prescriptions Disp Refills hydrALAZINE (APRESOLINE) 10 mg tablet 60 tablet 1 Sig: Take 1 tablet by mouth twice daily. Please review and advise. Rosa Gutierrez LPN documented in this encounter [facility] 07-09-2023 Miscellaneous Notes The following approved medication requests have been transmitted electronically. Requested Prescriptions Pending Prescriptions Disp Refills metoprolol succinate ER (TOPROL XL) 50 mg 24 hr tablet 60 tablet 0 Sig: Take 1 tablet by mouth twice daily. Hans Mccray APRN.CNP Last office visit: 06/12/23 F/u scheduled: none Tiffanie Ruff Ma Patient needs a 1 month emergency supply sent to [facility] she is out at this time. Patient has been identified by name and date of : Yes Requested Prescriptions Pending Prescriptions Disp Refills metoprolol succinate ER (TOPROL XL) 50 mg 24 hr tablet 60 tablet 0 Sig: Take 1 tablet by mouth twice daily. RX INSTRUCTIONS: Patient aware RX will be sent to pharmacy. No need to notify patient. Cyndy Thompson documented in this encounter [facility] 06-12-2023 Instructions Laurel Toure APRN.CNP - 06/12/2023 12:48 PM EDT Make appointment with nephrology for consult. Continue to take all medication as prescribed Check blood pressure twice daily, goal 130/80 or less. If blood pressure is elevated may increase hydralazine 10 mg (2 tab=20 mg) twice daily. Message the office with blood pressure readings. documented in this encounter [facility] 06-12-2023 History of Present illness Narrative This is a 77 year old female who presents today with: Patient presents with: Follow Up: BP med check HISTORY OF PRESENT ILLNESS: Alvarado Cohen is a 77 year old female. Patient presents with: Follow Up: BP med check 1 month blood pressure check. At last visit hydralazine 10 mg twice daily was added onto current medications. Still taking metoprolol 50 mg twice daily, lisinopril 40 mg, hydrochlorothiazide 12.5 mg, and amlodipine 10 mg daily. Has been checking blood pressure at home, 130-140's/50-60's. Denies chest pain, palpitations, dizziness, or edema. Smoking 1PPD. Was referred to nephrology for further evaluation due to uncontrolled hypertension. Discussed establishing care with [facility] here in [place]. Would like to wait to see specialist. 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, unspecified Diverticulosis of colon (without mention of hemorrhage) Hyperlipidemia LDL goal < 100 01/13/2013 Hypokalemia 02/26/2014 Internal hemorrhoids without mention of complication OSTEOPOROSIS NOS 08/26/2007 Tobacco abuse 10/11/2010 VITAMIN D DEFICIENCY NOS 09/03/2007 PAST SURGICAL HISTORY Procedure Laterality Date COLONOSCOPY FLX DX W/COLLJ SPEC WHEN PFRMD 02/18/07 COLONOSCOPY FLX DX W/COLLJ SPEC WHEN PFRMD 06/10/2017 Colonoscopy ALLERGIES Codeine, Spironolactone, and Sulfa (Sulfonamide Antibiotics) MEDICATIONS Current Outpatient Medications Medication Sig hydrALAZINE (APRESOLINE) 10 mg tablet Take 1 tablet by mouth twice daily. metoprolol succinate ER (TOPROL XL) 50 mg 24 hr tablet Take 1 tablet by mouth twice daily. aspirin 325 mg tablet Take 325 mg by mouth as needed. hydroCHLOROthiazide (HYDRODIURIL, ESIDRIX) 12.5 mg capsule Take 1 capsule by mouth once daily. amLODIPine (NORVASC) 10 mg tablet Take 1 tablet by mouth once daily. lisinopril (ZESTRIL, PRINIVIL) 40 mg tablet Take 1 tablet by mouth once daily. CALCIUM 600 + D 600 MG-125 UNIT TAB Take one(1) tablet twice daily. CYANOCOBALAMIN 500 MCG TAB Take one(1) tablet daily. B12 FISH OIL CAP Take one(1) capsule daily. omega 3 VITAMIN C 1,000 MG TAB Take one(1) tablet daily. No current facility-administered medications for this visit. FAMILY HISTORY Problem Relation Age of Onset Psychiatry Mother ANXIETY Cancer Father RENAL No Known Problems Brother Arthritis Paternal Grandmother Hypertension Paternal Grandfather Social History Tobacco Use Smoking status: Every Day Packs/day: 1.00 Years: 45.00 Total pack years: 45.00 Types: Cigarettes Smokeless tobacco: Never Vaping Use Vaping Use: Never used Substance Use Topics Alcohol use: No Drug use: No REVIEW OF SYSTEMS GENERAL: No weight loss, malaise or fevers/chills HEENT: Negative for frequent or significant headaches, No changes in hearing or vision. NECK: Negative for lumps, goiter, pain and significant neck swelling RESPIRATORY: Negative for cough, hemoptysis, wheezing, dyspnea or shortness of breath CARDIOVASCULAR: Negative for chest pain, leg swelling, orthopnea, or palpitations GI: No nausea, vomiting, or diarrhea/constipation. No hematochezia/melena. No heartburn or reflux symptoms. : No history of dysuria, frequency or incontinence MUSCULOSKELETAL: Negative for joint pain or swelling. SKIN: Negative for lesions, rash, and itching ENDOCRINE: Negative for cold or heat intolerance, polyuria, polydipsia and goiter NEURO: No history of headaches, syncope, paralysis, seizures or tremors MOOD: Negative for depression, anxiety, or suicidal ideation. EXAM: BP 180/76 Pulse 75 Resp 16 Wt 55.3 kg (122 lb) SpO2 98% BMI 21.61 kg/m PHYSICAL EXAM: General Appearance: Well appearing, alert, in no acute distress, well-hydrated, well nourished. Skin: Skin color, texture, turgor normal, no suspicious rashes or lesions. Head: Normocephalic, no masses, lesions, tenderness or abnormalities. Eyes: Anicteric sclera. Extraocular movements are intact. Lungs: Lungs clear to auscultation. No wheezing, rhonchi, rales. Heart: RRR without murmur, gallop, or rubs. No ectopy. Extremities: No deformities, edema, skin discoloration, clubbing or cyanosis. Good capillary refill. Peripheral Pulses: Normal, Capillary refill <2secs, strong peripheral pulses, Pulses palpable. Neurologic: Gait normal. Sensation grossly intact. ASSESSMENT/PLAN: 1. Uncontrolled hypertension - ICD9: 401.9, ICD10: I10 - Uncontrolled - Continue current medications - Discussed increasing hydralazine to 20 mg twice daily. Will message the office with blood pressure readings in the next 3-5 days. - Recommend home blood pressure monitoring, to bring results to next visit - Encouraged sodium restriction, DASH or Mediterranean diet - Recommend regular aerobic exercise - Smoking cessation encouraged; discussed risks to health and quitting strategies. Patient is not ready to quit - Recommend consult with Nephrology Follow up in 1 month or sooner as needed. Discussed treatment plan and patient voices understanding. Patient's questions answered appropriately. Medications and potential side effects were discussed and patient voices understanding. Laurel Toure APRN.CNP This note was partially generated using [email or web address] voice recognition system. Note was reviewed for accuracy. There may be minor misspellings or grammar miscues with [email or web address] voice recognition. documented in this encounter [facility] 05-13-2023 Miscellaneous Notes Noted, thank you. Laurel Toure APRN.CNP Call placed to patient and provider message reviewed. Patient verbalizes understanding. Brooklynn Posada RN Can you please call the patient and let her know that she may schedule with Dr. Erazo, he works with Dr. Brian. Let me know if she has any additional questions. Thank you. Laurel Toure APRN.CNP Patient calls to let provider know that she is not able to see Dr. Brian at the [facility] location. Patient reports her options are Dr. Caceres at the [place] location or Dr. Brian at the [place] location. Patient asking provider if she would still recommend Dr. Brian. 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 Call patient back at [phone] with provider response. Please review and advise, Brooklynn Posada, RN documented in this encounter [facility] 05-08-2023 Instructions Laurel Toure APRN.NIKKI - 05/08/2023 1:16 PM EDT Continue to take all medication as prescribed. Add on hydralazine 10 mg twice daily. Monitor blood pressure at home. Recommend consult with nephrology Follow up in 1 month or sooner as needed. documented in this encounter [facility] 05-08-2023 History of Present illness Narrative This is a 77 year old female who presents today with: Patient presents with: Follow Up: 1 month follow up for BP HISTORY OF PRESENT ILLNESS: Alvarado Cohen is a 77 year old female. Patient presents with: Follow Up: 1 month follow up for BP Here in the office for blood pressure check. At last visit metoprolol was increased to 25 mg twice daily. Blood pressure remained elevated therefore was increased to 50 mg twice daily. Still taking lisinopril 40 mg, hydrochlorothiazide 12.5 mg, and amlodipine 10 mg daily. Has been checking blood pressure at home, 140-160's/50-60's. Denies chest pain, palpitations, dizziness, or edema. Smoking 1PPD. 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, unspecified Diverticulosis of colon (without mention of hemorrhage) Hyperlipidemia LDL goal < 100 01/13/2013 Hypokalemia 02/26/2014 Internal hemorrhoids without mention of complication OSTEOPOROSIS NOS 08/26/2007 Tobacco abuse 10/11/2010 VITAMIN D DEFICIENCY NOS 09/03/2007 PAST SURGICAL HISTORY Procedure Laterality Date COLONOSCOPY FLX DX W/COLLJ SPEC WHEN PFRMD 02/18/07 COLONOSCOPY FLX DX W/COLLJ SPEC WHEN PFRMD 06/10/2017 Colonoscopy ALLERGIES Codeine, Spironolactone, and Sulfa (Sulfonamide Antibiotics) MEDICATIONS Current Outpatient Medications Medication Sig metoprolol succinate ER (TOPROL XL) 25 mg 24 hr tablet Take 1 tablet by mouth twice daily. aspirin 325 mg tablet Take 325 mg by mouth as needed. hydroCHLOROthiazide (HYDRODIURIL, ESIDRIX) 12.5 mg capsule Take 1 capsule by mouth once daily. amLODIPine (NORVASC) 10 mg tablet Take 1 tablet by mouth once daily. lisinopril (ZESTRIL, PRINIVIL) 40 mg tablet Take 1 tablet by mouth once daily. CALCIUM 600 + D 600 MG-125 UNIT TAB Take one(1) tablet twice daily. CYANOCOBALAMIN 500 MCG TAB Take one(1) tablet daily. B12 FISH OIL CAP Take one(1) capsule daily. omega 3 VITAMIN C 1,000 MG TAB Take one(1) tablet daily. No current facility-administered medications for this visit. FAMILY HISTORY Problem Relation Age of Onset Psychiatry Mother ANXIETY Cancer Father RENAL No Known Problems Brother Arthritis Paternal Grandmother Hypertension Paternal Grandfather Social History Tobacco Use Smoking status: Every Day Packs/day: 1.00 Years: 45.00 Pack years: 45.00 Types: Cigarettes Smokeless tobacco: Never Vaping Use Vaping Use: Never used Substance Use Topics Alcohol use: No Drug use: No REVIEW OF SYSTEMS GENERAL: No weight loss, malaise or fevers/chills HEENT: Negative for frequent or significant headaches, No changes in hearing or vision. NECK: Negative for lumps, goiter, pain and significant neck swelling RESPIRATORY: Negative for cough, hemoptysis, wheezing, dyspnea or shortness of breath CARDIOVASCULAR: Negative for chest pain, leg swelling, orthopnea, or palpitations GI: No nausea, vomiting, or diarrhea/constipation. No hematochezia/melena. No heartburn or reflux symptoms. : No history of dysuria, frequency or incontinence MUSCULOSKELETAL: Negative for joint pain or swelling. SKIN: Negative for lesions, rash, and itching ENDOCRINE: Negative for cold or heat intolerance, polyuria, polydipsia and goiter NEURO: No history of headaches, syncope, paralysis, seizures or tremors MOOD: Negative for depression, anxiety, or suicidal ideation. EXAM: BP 160/80 Pulse (!) 58 Resp 16 Wt 55.8 kg (123 lb) SpO2 97% BMI 21.79 kg/m PHYSICAL EXAM: General Appearance: Well appearing, alert, in no acute distress, well-hydrated, well nourished. Skin: Skin color, texture, turgor normal, no suspicious rashes or lesions. Head: Normocephalic, no masses, lesions, tenderness or abnormalities. Eyes: Anicteric sclera. Extraocular movements are intact. Lungs: Lungs clear to auscultation. No wheezing, rhonchi, rales. Heart: RRR without murmur, gallop, or rubs. No ectopy. Extremities: No deformities, edema, skin discoloration, clubbing or cyanosis. Good capillary refill. Peripheral Pulses: Normal, Capillary refill <2secs, strong peripheral pulses, Pulses palpable. Neurologic: Gait normal. Sensation grossly intact. ASSESSMENT/PLAN: 1. Uncontrolled hypertension - ICD9: 401.9, ICD10: I10 - Uncontrolled - Continue current medications - Start Hydralazine 10 mg BID, message office with readings, mg may need increased. - Referral to kidney medicine for resistant hypertension - Recommend home blood pressure monitoring, to bring results to next visit - Encouraged sodium restriction, DASH or Mediterranean diet - Recommend regular aerobic exercise - Smoking cessation encouraged; discussed risks to health and quitting strategies. Patient is not ready to quit - HYDRALAZINE 10 MG TABLET - CONSULT TO NEPHROLOGY - METOPROLOL SUCCINATE ER 50 MG TABLET,EXTENDED RELEASE 24 HR Follow-up in 1 month or sooner as needed. Discussed treatment plan and patient voices understanding. Patient's questions answered appropriately. Medications and potential side effects were discussed and patient voices understanding. Laurel Toure APRN.CNP This note was partially generated using [email or web address] voice recognition system. Note was reviewed for accuracy. There may be minor misspellings or grammar miscues with [email or web address] voice recognition. documented in this encounter [facility] 04-08-2023 Instructions Laurel Toure APRN.CNP - 04/08/2023 1:41 PM EDT Continue to take lisinopril 40 mg daily. Increase Toprol XL 25 mg to twice daily. Continue to monitor blood pressure at home, 1-2 times per day. Write readings down. Mychart or call the office in 5 days. Watch salt and processed foods in the diet. Follow up in 1 month or sooner as needed. Goal: 130/80 or less documented in this encounter [facility] 04-08-2023 History of Present illness Narrative This is a 77 year old female who presents today with: Patient presents with: Follow Up: 2 week BP check HISTORY OF PRESENT ILLNESS: Alvarado Cohen is a 77 year old female. Patient presents with: Follow Up: 2 week BP check Here in the office for 2 week BP check. Saw PCP on 03/25/2023 for elevated blood pressure, instructed to take lisinopril 40 mg daily added on Toprol XL 25 mg daily. Checking blood pressure at home, 140-150's/60's, much improved. Denies chest pain, palpitations, dizziness, or edema. 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, unspecified Diverticulosis of colon (without mention of hemorrhage) Hyperlipidemia LDL goal < 100 01/13/2013 Hypokalemia 02/26/2014 Internal hemorrhoids without mention of complication OSTEOPOROSIS NOS 08/26/2007 Tobacco abuse 10/11/2010 VITAMIN D DEFICIENCY NOS 09/03/2007 PAST SURGICAL HISTORY Procedure Laterality Date COLONOSCOPY FLX DX W/COLLJ SPEC WHEN PFRMD 02/18/07 COLONOSCOPY FLX DX W/COLLJ SPEC WHEN PFRMD 06/10/2017 Colonoscopy ALLERGIES Codeine, Spironolactone, and Sulfa (Sulfonamide Antibiotics) MEDICATIONS Current Outpatient Medications Medication Sig metoprolol succinate ER (TOPROL XL) 25 mg 24 hr tablet Take 1 tablet by mouth once daily. aspirin 325 mg tablet Take 325 mg by mouth as needed. hydroCHLOROthiazide (HYDRODIURIL, ESIDRIX) 12.5 mg capsule Take 1 capsule by mouth once daily. amLODIPine (NORVASC) 10 mg tablet Take 1 tablet by mouth once daily. lisinopril (ZESTRIL, PRINIVIL) 40 mg tablet Take 1 tablet by mouth once daily. CALCIUM 600 + D 600 MG-125 UNIT TAB Take one(1) tablet twice daily. CYANOCOBALAMIN 500 MCG TAB Take one(1) tablet daily. B12 FISH OIL CAP Take one(1) capsule daily. omega 3 VITAMIN C 1,000 MG TAB Take one(1) tablet daily. No current facility-administered medications for this visit. FAMILY HISTORY Problem Relation Age of Onset Psychiatry Mother ANXIETY Cancer Father RENAL No Known Problems Brother Arthritis Paternal Grandmother Hypertension Paternal Grandfather Social History Tobacco Use Smoking status: Every Day Packs/day: 1.00 Years: 45.00 Pack years: 45.00 Types: Cigarettes Smokeless tobacco: Never Vaping Use Vaping Use: Never used Substance Use Topics Alcohol use: No Drug use: No REVIEW OF SYSTEMS GENERAL: No weight loss, malaise or fevers/chills HEENT: Negative for frequent or significant headaches, No changes in hearing or vision. NECK: Negative for lumps, goiter, pain and significant neck swelling RESPIRATORY: Negative for cough, hemoptysis, wheezing, dyspnea or shortness of breath CARDIOVASCULAR: Negative for chest pain, leg swelling, orthopnea, or palpitations GI: No nausea, vomiting, or diarrhea/constipation. No hematochezia/melena. No heartburn or reflux symptoms. : No history of dysuria, frequency or incontinence MUSCULOSKELETAL: Negative for joint pain or swelling. SKIN: Negative for lesions, rash, and itching ENDOCRINE: Negative for cold or heat intolerance, polyuria, polydipsia and goiter NEURO: No history of headaches, syncope, paralysis, seizures or tremors MOOD: Negative for depression, anxiety, or suicidal ideation. EXAM: BP 140/60 Pulse 77 Resp 6 Wt 55.3 kg (122 lb) SpO2 97% BMI 21.61 kg/m PHYSICAL EXAM: General Appearance: Well appearing, alert, in no acute distress, well-hydrated, well nourished. Skin: Skin color, texture, turgor normal, no suspicious rashes or lesions. Head: Normocephalic, no masses, lesions, tenderness or abnormalities. Eyes: Anicteric sclera. Extraocular movements are intact. Lungs: Lungs clear to auscultation. No wheezing, rhonchi, rales. Heart: RRR without murmur, gallop, or rubs. No ectopy. Extremities: No deformities, edema, skin discoloration, clubbing or cyanosis. Good capillary refill. Peripheral Pulses: Normal, Capillary refill <2secs, strong peripheral pulses, Pulses palpable. Neurologic: Gait normal. Reflexes normal and symmetric. Sensation grossly intact. ASSESSMENT/PLAN: 1. Essential hypertension, benign - ICD9: 401.1, ICD10: I10 - Improving control - Continue current medications - Increase metoprolol succinate 25 mg BID - Message the office in 5-7 days with BP readings. - Recommend home blood pressure monitoring, to bring results to next visit - Encouraged sodium restriction, DASH or Mediterranean diet - Recommend regular aerobic exercise - Smoking cessation encouraged; discussed risks to health and quitting strategies. Patient is not ready to quit - METOPROLOL SUCCINATE ER 25 MG TABLET,EXTENDED RELEASE 24 HR Follow-up in 1 month or sooner as needed. Discussed treatment plan and patient voices understanding. Patient's questions answered appropriately. Medications and potential side effects were discussed and patient voices understanding. Laurel Toure APRN.CNP This note was partially generated using [email or web address] voice recognition system. Note was reviewed for accuracy. There may be minor misspellings or grammar miscues with [email or web address] voice recognition. documented in this encounter [facility] 08-27-2022 Instructions Laurel Toure APRN.CNP - 08/27/2022 10:29 AM EDT Get fasting labs completed, no food 8-10 hours prior. May black coffee and water. Continue to take all medications as prescribed. Monitor Blood Pressure at home, please follow up in the office BP is elevate. Follow up pending test results. Health Promotion: - Eat healthy -- go to [employer] to get started - Have a yearly physical - Mammogram yearly after age 40 - Get at least 30 minutes of physical activity daily - Get at least 7 to 8 hours of sleep each night - Reach and maintain a healthy weight - Get help to quit or don't start smoking - Limit alcohol use to one drink or less - Do not use illegal drugs or misuse prescription drugs - Wear a helmet when riding a bike and wear protective gear for sports - Wear a seatbelt in cars and not text and drive - Wear sunscreen documented in this encounter [facility] 08-27-2022 History of Present illness Narrative This is a 77 year old female who presents today with: Patient presents with: Follow Up: transferring care HISTORY OF PRESENT ILLNESS: Alvarado Cohen is a 77 year old female. Patient presents with: Follow Up: transferring care Here in the office for follow up/transfer care. PCP no longer at this location, Steven Robledo CNP. HTN: Taking lisinopril 40 mg daily, amlodipine 10 mg daily, and hydrochlorothiazide 12.5 mg daily. Not currently checking blood pressure at home. Needs a new BP machine. Denies chest pain, palpitations, dizziness, or edema. Bp elevated at office visit today, refers that BP is usually higher when at medical appointments. Smokin/2- PPD. Would like to quit at some point. Mammogram/Pap: Last mammogram June 2022, normal. Last Pap June 2018, normal. Colonoscopy: Last colonoscopy was June/2017, normal. Will be due in 2026. Vaccines: had flu vaccine in July and Covid Booster (bivalent) in August. 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, unspecified Diverticulosis of colon (without mention of hemorrhage) Hyperlipidemia LDL goal < 100 01/13/2013 Hypokalemia 02/26/2014 Internal hemorrhoids without mention of complication OSTEOPOROSIS NOS 08/26/2007 Tobacco abuse 10/11/2010 VITAMIN D DEFICIENCY NOS 09/03/2007 PAST SURGICAL HISTORY Procedure Laterality Date COLONOSCOP W/ OR W/O [facility] SPEC 02/18/07 COLONOSCOP W/ OR W/O [facility] SPEC 06/10/2017 Colonoscopy ALLERGIES Codeine, Spironolactone, and Sulfa (Sulfonamide Antibiotics) MEDICATIONS Current Outpatient Medications Medication Sig lisinopril (ZESTRIL, PRINIVIL) 40 mg tablet TAKE 1 TABLET BY MOUTH ONCE DAILY amLODIPine (NORVASC) 10 mg tablet TAKE 1 TABLET BY MOUTH ONCE DAILY hydroCHLOROthiazide (HYDRODIURIL, ESIDRIX) 12.5 mg capsule TAKE 1 CAPSULE BY MOUTH ONCE DAILY CALCIUM 600 + D 600 MG-125 UNIT TAB Take one(1) tablet twice daily. CYANOCOBALAMIN 500 MCG TAB Take one(1) tablet daily. B12 FISH OIL CAP Take one(1) capsule daily. omega 3 VITAMIN C 1,000 MG TAB Take one(1) tablet daily. No current facility-administered medications for this visit. FAMILY HISTORY Problem Relation Age of Onset Psychiatry Mother ANXIETY Cancer Father RENAL No Known Problems Brother Arthritis Paternal Grandmother Hypertension Paternal Grandfather Social History Tobacco Use Smoking status: Every Day Packs/day: 1.00 Years: 45.00 Pack years: 45.00 Types: Cigarettes Smokeless tobacco: Never Vaping Use Vaping Use: Never used Substance Use Topics Alcohol use: No Drug use: No REVIEW OF SYSTEMS GENERAL: No weight loss, malaise or fevers/chills HEENT: Negative for frequent or significant headaches, No changes in hearing or vision. NECK: Negative for lumps, goiter, pain and significant neck swelling RESPIRATORY: Negative for cough, hemoptysis, wheezing, dyspnea or shortness of breath CARDIOVASCULAR: Negative for chest pain, leg swelling, orthopnea, or palpitations GI: No nausea, vomiting, or diarrhea/constipation. No hematochezia/melena. No heartburn or reflux symptoms. : No history of dysuria, frequency or incontinence MUSCULOSKELETAL: Negative for joint pain or swelling. SKIN: Negative for lesions, rash, and itching ENDOCRINE: Negative for cold or heat intolerance, polyuria, polydipsia and goiter NEURO: No history of headaches, syncope, paralysis, seizures or tremors MOOD: Negative for depression, anxiety, or suicidal ideation. EXAM: BP 160/80 Pulse 83 Resp 16 Wt 54.9 kg (121 lb) SpO2 99% BMI 21.43 kg/m PHYSICAL EXAM: General Appearance: Well appearing, alert, in no acute distress, well-hydrated, well nourished. Skin: Skin color, texture, turgor normal, no suspicious rashes or lesions. Head: Normocephalic, no masses, lesions, tenderness or abnormalities. Eyes: Anicteric sclera. Extraocular movements are intact. Lungs: Lungs clear to auscultation. No wheezing, rhonchi, rales. Heart: RRR without murmur, gallop, or rubs. No ectopy. Extremities: No deformities, edema, skin discoloration, clubbing or cyanosis. Good capillary refill. Peripheral Pulses: Normal, Capillary refill <2secs, strong peripheral pulses, Pulses palpable. Neurologic: Gait normal. Reflexes normal and symmetric. Sensation grossly intact. ASSESSMENT/PLAN: 1. Essential hypertension, benign - ICD9: 401.1, ICD10: I10 (primary diagnosis) - poor control - factors affecting control of BP include white coat HTN. - Continue current medication(s) - Encouraged dietary sodium restriction/DASH diet - Recommended regular aerobic exercise. - Recommend home blood pressure monitoring, to bring results in on next visit - Goal of BP <130/80 - HYDROCHLOROTHIAZIDE 12.5 MG CAPSULE - AMLODIPINE 10 MG TABLET - LISINOPRIL 40 MG TABLET - COMP METABOLIC PANEL 2. Hyperlipidemia with target LDL less than 100 - ICD9: 272.4, ICD10: E78.5 - to be determined upon return of lab results - Encouraged following a low fat, low cholesterol diet. - LIPID PANEL BASIC 3. Tobacco abuse - ICD9: 305.1, ICD10: Z72.0 - Cessation encouraged. - Physiologic and physical aspects of tobacco addiction as well as strategies for quitting were discussed. - Counseling was given focusing on the harmful effects of this addiction especially given the patient's medical condition(s) which will be worsened because of the chemicals in tobacco. - Counseling was given 3-4 minutes. Follow up pending test results or sooner as needed. Discussed treatment plan and patient voices understanding. Patient's questions answered appropriately. Medications and potential side effects were discussed and patient voices understanding. Laurel Toure APRN.NIKKI This note was partially generated using [email or web address] voice recognition system. Note was reviewed for accuracy. There may be minor misspellings or grammar miscues with [email or web address] voice recognition. documented in this encounter [facility] 06-14-2022 Miscellaneous Notes Patient active MyChart. Patient notified via Greetz message. Lala Brewer MA documented in this encounter [facility] 06-12-2022 Miscellaneous Notes June 12, 2022 PID: [id number] Alvarado Cohen [address] [place] [address] Dear Ms. Cohen, We are pleased to inform you that the results of your recent breast imaging exam on 06/11/2022 are normal. Your mammogram demonstrates that you have dense breast tissue, which could hide abnormalities. Dense breast tissue, in and of itself, is a relatively common condition. Therefore, this information is not provided to cause undue concern; rather, it is to raise your awareness and promote discussion with your health care provider regarding the presence of dense breast tissue in addition to other risk factors. Early detection of cancer is very important. We also understand recommendations regarding breast cancer screening are controversial. Please discuss with your primary care provider which strategy is best for you and whether a mammogram is right for you. Your imaging studies and report will be kept on file at [facility] as part of your permanent medical record and are available for your continuing care. Thank you for allowing us to help in meeting your health care needs. Sincerely, Dr. Mathews Interpreting Radiologist [facility] (Normal over 40) documented in this encounter [facility] 06-11-2022 History of Present illness Narrative Radiology Service Progress Note PATIENT NAME: Alvarado Cohen DATE OF SERVICE: June 11, 2022 TIME: 2:58 PM PATIENT IDENTITY VERIFICATION COMPLETED USING TWO (2) IDENTIFIERS: Name and Date of confirmed by patient verbally. FALL SCREENING: Has the patient had 2 falls in the last year or 1 fall with injury or currently using an Ambulatory Assistive Device (Walker, Cane, Wheelchair, Crutches, etc.)? No PATIENT GENDER DATA: Female. status: : No status: NO. PATIENT RELEVANT IMPLANT DATA REVIEWED: Not Applicable RADIOLOGY DEPARTMENT: Mammography PERIPHERAL IV DATA: Not applicable SIGNED BY: RT David(R) June 11, 2022 2:58 PM documented in this encounter [facility] 02-26-2014 History of Past i llness Narrative Problem Noted Date Resolved Date Hypokalemia 02/26/2014 04/10/2017 Vitamin D deficiency 09/03/2007 04/10/2017 documented as of this encounter (statuses as of 06/08/2022) [facility] History of Past illness Narrative* Problem Noted Date Resolved Date Hypokalemia 02/26/2014 04/10/2017 Vitamin D deficiency 09/03/2007 04/10/2017 documented as of this encounter (statuses as of 06/12/2022) [address]25-2014 History of Past illness Narrative* Problem Noted Date Resolved Date Hypokalemia 02/26/2014 04/10/2017 Vitamin D deficiency 09/03/2007 04/10/2017 documented as of this encounter (statuses as of 06/14/2022) [address]25-2014 History of Past illness Narrative* Problem Noted Date Resolved Date Hypokalemia 02/26/2014 04/10/2017 Vitamin D deficiency 09/03/2007 04/10/2017 documented as of this encounter (statuses as of 08/27/2022) [address]25-2014 History of Past illness Narrative* Problem Noted Date Resolved Date Hypokalemia 02/26/2014 04/10/2017 Vitamin D deficiency 09/03/2007 04/10/2017 documented as of this encounter (statuses as of 04/09/2023) [place] [address]-2014 History of Past illness Narrative* Problem Noted Date Resolved Date Hypokalemia 02/26/2014 04/10/2017 Vitamin D deficiency 09/03/2007 04/10/2017 documented as of this encounter (statuses as of 05/08/2023) [place] [address]2014 History of Past illness Narrative* Problem Noted Date Diagnosed Date Resolved Date Hypokalemia 02/26/2014 04/10/2017 Vitamin D deficiency 09/03/2007 017 documented as of this encounter (statuses as of 05/13/2023) [facility]-25[facility]2014 History of Past illness Narrative* Problem Noted Date Diagnosed Date Resolved Date Hypokalemia 02/26/2014 04/10/2017 Vitamin D deficiency 09/03/2007 017 documented as of this encounter (statuses as of 06/13/2023) [place] [address]2014 History of Past illness Narrative* Problem Noted Date Diagnosed Date Resolved Date Hypokalemia 02/26/2014 04/10/2017 Vitamin D deficiency 09/03/2007 017 documented as of this encounter (statuses as of 06/13/2023) [place] [address]2014 History of Past illness Narrative* Problem Noted Date Diagnosed Date Resolved Date Hypokalemia 02/26/2014 04/10/2017 Vitamin D deficiency 09/03/2007 017 documented as of this encounter (statuses as of 07/09/2023) [address]25-2014 History of Past illness Narrative* Problem Noted Date Diagnosed Date Resolved Date Hypokalemia 02/26/2014 04/10/2017 Vitamin D deficiency 09/03/2007 017 documented as of this encounter (statuses as of 07/21/2023) [address]25-2014 History of Past illness Narrative* Problem Noted Date Diagnosed Date Resolved Date Hypokalemia 02/26/2014 04/10/2017 Vitamin D deficiency 09/03/2007 017 documented as of this encounter (statuses as of 08/10/2023) [address]25-2014 History of Past illness Narrative* Problem Noted Date Diagnosed Date Resolved Date Hypokalemia 02/26/2014 04/10/2017 Vitamin D deficiency 09/03/2007 017 documented as of this encounter (statuses as of 08/27/2023) [address]25-2014 History of Past illness Narrative* Problem Noted Date Diagnosed Date Resolved Date Hypokalemia 02/26/2014 04/10/2017 Vitamin D deficiency 09/03/2007 017 documented as of this encounter (statuses as of 09/02/2023) [place] [address]2014 History of Past illness Narrative* Problem Noted Date Diagnosed Date Resolved Date Hypokalemia 02/26/2014 04/10/2017 Vitamin D deficiency 09/03/2007 017 documented as of this encounter (statuses as of 09/08/2023) [address]25-2014 History of Past illness Narrative* Problem Noted Date Diagnosed Date Resolved Date Hypokalemia 02/26/2014 04/10/2017 Vitamin D deficiency 09/03/2007 017 documented as of this encounter (statuses as of 01/13/2024) [place] [address]2014 History of Past illness Narrative* Problem Noted Date Diagnosed Date Resolved Date Hypokalemia 02/26/2014 04/10/2017 Vitamin D deficiency 09/03/2007 017 documented as of this encounter (statuses as of 02/07/2024) [facility]-25-2014 History of Past illness Narrative* Problem Noted Date Diagnosed Date Resolved Date Hypokalemia 02/26/2014 04/10/2017 Vitamin D deficiency 09/03/2007 017 documented as of this encounter (statuses as of 02/18/2024) [facility]-25-2014 History of Past illness Narrative* Problem Noted Date Diagnosed Date Resolved Date Hypokalemia 02/26/2014 04/10/2017 Vitamin D deficiency 09/03/2007 017 documented as of this encounter (statuses as of 02/19/2024) [facility] Diagnosis Visit for screening mammogram- Primary Other screening mammogram documented [facility] this encounter [facility] Diagnosis Essential hypertension, benign- Primary Hyperlipidemia with target LDL less than 100 Other and unspecified hyperlipidemia Tobacco abuse Tobacco use disorder [facility] this encounter [facility] Diagnosis Essential hypertension, benign- Primary documented in this encounter [facility] Diagnosis Uncontrolled hypertension- Primary Unspecified essential hypertension [facility] this [facility] Diagnosis Uncontrolled hypertension- Primary Unspecified essential hypertension [facility] this [facility] Diagnosis Uncontrolled hypertension Unspecified essential hypertension [facility] Diagnosis Visit for screening mammogram- Primary Other screening mammogram [facility] Diagnosis Uncontrolled hypertension Unspecified essential hypertension [facility] Diagnosis Uncontrolled hypertension Unspecified essential hypertension [facility] this [facility] Diagnosis Uncontrolled hypertension Unspecified essential hypertension documented [facility] this [facility] Diagnosis Essential hypertension, benign- Primary Resistant hypertension [facility] Diagnosis Essential hypertension, benign Resistant hypertension documented [facility] this encounter [facility] Diagnosis Essential hypertension, benign Uncontrolled hypertension Unspecified essential hypertension documented [facility] this encounter [facility] Diagnosis Essential hypertension, benign- Primary Uncontrolled hypertension Unspecified essential hypertension [facility] Diagnosis Essential hypertension, benign Uncontrolled hypertension Unspecified essential hypertension [facility] this [facility] Diagnosis Open wound- Primary Open wound(s) (multiple) of unspecified site(s), without mention of complication [facility] Diagnosis Encounter for Medicare annual wellness exam- Primary Routine general medical examination at a health care facility Uncontrolled hypertension Unspecified essential hypertension Hyperlipidemia with target LDL less than 100 Other and unspecified hyperlipidemia Age-related osteoporosis without current pathological fracture Senile osteoporosis Tobacco use disorder Screening for depression Encounter for screening examination for other mental health and behavioral disorders Leg fatigue Other musculoskeletal symptoms referable to limbs Encounter for screening for osteoporosis Special screening for osteoporosis Osteoporosis, unspecified osteoporosis type, unspecified pathological fracture presence Claudication (HCC) Peripheral vascular disease, unspecified [facility] Diagnosis Age-related osteoporosis without current pathological fracture Senile osteoporosis [facility] Diagnosis Essential hypertension, benign documented [facility] this [facility] Diagnosis Osteoporosis, unspecified osteoporosis type, unspecified pathological fracture presence- Primary Essential hypertension, benign documented [facility] this encounter [facility] Diagnosis Essential hypertension, benign- Primary Resistant hypertension Uncontrolled hypertension Unspecified essential hypertension Osteoporosis, unspecified osteoporosis type, unspecified pathological fracture presence Claudication Peripheral vascular disease, unspecified Tobacco use disorder [facility] Diagnostic Procedure Only (Routine) - Pending Review Specialty Diagnoses / Procedures Referred By Sallie simpson Referred To Contact [facility] Diagnoses Visit for screening mammogram Procedures [facility] SCREENING SCREENING MAMMOGRAPHY BI 2-VIEW BREAST INC Indio Busby APRN.CNP, DNP [address] [place] [address] [facility] [address] [place] [id number] Referral ID Status Reason Start Date Expiration Date Visits Requested Visits Authorized [id number] Pending Review Auto-Generat ed Referral 06/08/2022 07/08/2023 1 1 [facility] Diagnostic Procedure Only (Routine) - Pending Review Specialty Diagnoses / Procedures Referred By Contnaomi t Referred To Contact [facility] Diagnoses Visit for screening mammogram Procedures [facility] SCREENING SCREENING MAMMOGRAPHY BI 2-VIEW BREAST INC Glenny Melton MD [address] [place] [address] [facility] [address] [place] [address] Referral ID Status Reason Start Date Expiration Date Visits Requested Visits Authorized [id number] Pending Review Auto-Generat ed Referral 07/21/2023 08/17/2024 1 1 [facility] for referral (narrative)* Diagnostic Procedure Only (Routine) - Authorized Specialty Diagnoses / Procedures Referred By Contac t Referred To Contact [facility] Diagnoses Essential hypertension, benign Resistant hypertension Procedures US KIDNEY/BLADDER US RETROPERITONEAL REAL TIME W/IMAGE COMPLETE Hans Mccray APRN.CNP [address] [place] [address] [place] [address] Referral ID Status Reason Start Date Expiration Date Visits Requested Visits Authorized [id number] Authorized Auto-Generat ed Referral 02/17/2024 03/18/2025 1 1 [facility] for referral (narrative)* Diagnostic Procedure Only (Routine) - Authorized Specialty Diagnoses / Procedures Referred By Contac t Referred To Contact XR IMAGING Diagnoses Age-related osteoporosis without current pathological fracture Procedures DXA-AXIAL SKELETON DXA BONE DENSITY STUDY 1/> SITES AXIAL SKEL Glenny Luque MD [address] [place] [address] [place] [address] Referral ID Status Reason Start Date Expiration Date Visits Requested Visits Authorized [id number] Authorized Auto-Generat ed Referral 11/26/2024 12/26/2025 1 1 * Outpatient Procedure (Routine) - Authorized Specialty Diagnoses / Procedures Referred By Contac t Referred To [facility] Diagnoses Uncontrolled hypertension Leg fatigue Claudication (HCC) Procedures PVR ANK PRESS [facility] NON-INVAS PHYSIOLOGIC STD EXTREMITY ART 2 LEVEL Glenny Luque MD [address] [place] [address] [facility] [place] [address] [place] [address] Referral ID Status Reason Start Date Expiration Date Visits Requested Visits Authorized [id number] Authorized Auto-Generat ed Referral 11/26/2024 11/26/2025 1 1 [facility] for visit Narrative* Diagnostic Procedure Only (Routine) - Closed Specialty Diagnoses / Procedures Referred By Contac t Referred To Contact [facility] Diagnoses Visit for screening mammogram Procedures [facility] SCREENING SCREENING MAMMOGRAPHY BI 2-VIEW BREAST INC CAD Indio Robledo APRN.CORPORATE TRAVEL EXPERT, DNP [address] [place] [address] [facility] [address] [place] [address] Referral ID Status Reason Start Date Expiration Date V isits Requested Visits Authorized [id number] Closed Auto-Generated Referral Patient Cleared - INN Insurance Found 06/08/2022 07/08/2023 1 1 [facility] for visit Narrative* Diagnostic Procedure Only (Routine) - Closed Specialty Diagnoses / Procedures Referred By Contac t Referred To Contact [facility] Diagnoses Visit for screening mammogram Procedures [facility] SCREENING SCREENING MAMMOGRAPHY BI 2-VIEW BREAST INC Glenny Melton MD [address] [place] [address] [facility] [address] [place] [address] Referral ID Status Reason Start Date Expiration Date V isits Requested Visits Authorized [id number] Closed Auto-Generate d Referral 07/21/2023 08/17/2024 1 1 [facility] for visit Narrative* Diagnostic Procedure Only (Routine) - Closed Specialty Diagnoses / Procedures Referred By Sallie t Referred To Contact [facility] Diagnoses Visit for screening mammogram Procedures [facility] SCREENING SCREENING MAMMOGRAPHY BI 2-VIEW BREAST INC Glenny Melton MD [address] [place] [address] [facility] [address] [place] [address] Referral ID Status Reason Start Date Expiration Date V isits Requested Visits Authorized [id number] Closed Auto-Generate d Referral 09/21/2024 10/18/2025 1 1 [facility]* Diagnostic Procedure Only (Routine) - Closed Specialty Diagnoses / Procedures Referred By Rohiniac t Referred To Contact XR IMAGING Diagnoses Age-related osteoporosis without current pathological fracture Procedures DXA-AXIAL SKELETON DXA BONE DENSITY STUDY / SITES AXIAL Glenny Dial MD [address] [place] [address] Phone: tel: fax: [place] [address] Referral ID Status Reason Start Date Expiration Date V isits Requested Visits Authorized [id number] Closed Auto-Generate d Referral 11/26/2024 12/26/2025 1 1 [facility] Advance Directives No Advanced Directives Records FoundDocuments on File Type Date Recorded 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CORPORATE TRAVEL EXPERT [address] [place] [address] Referral ID Status Reason Start Date Expiration Date Visits Requested Visits Authorized [id number] Authorized PCP Requested Referral 05/08/2023 05/07/2024 1 1 Specialty Diagnoses / Procedures Referred By Contac t Referred To Contact Nephrology Diagnoses Essential hypertension, benign Uncontrolled hypertension Procedures CONSULT TO NEPHROLOGY OFFICE/OUTPATIENT NEW HIGH MDM 60 MINUTES Hans Mccray, MACHINIST CLASS B.CORPORATE TRAVEL EXPERT [address] [place] [address] Referral ID Status Reason Start Date Expiration Date Visits Requested Visits Authorized [id number] Authorized PCP Requested Referral 03/20/2024 03/20/2025 1 1 Summary Purpose Family History No Family History Records FoundNo Family History Records Found Additional Source Comments Source Comments (unrecognize d section and content) In the event this informatio n is protected by the Federal Confidentiality of Alcohol and Drug Abuse Patient Records regulations: The Federal rules restrict any use of the information to criminally investigate or prosecute any alcohol or drug abuse patient.[facility] the event this information is protected by the Federal Confidentiality of Alcohol and Drug Abuse Patient Records regulations: The Federal rules restrict any use of the information to criminally investigate or prosecute any alcohol or drug abuse patient.[facility] the event this information is protected by the Federal Confidentiality of Alcohol and Drug Abuse Patient Records regulations: The Federal rules restrict any use of the information to criminally investigate or prosecute any alcohol or drug abuse patient.[facility] the event this information is protected by the Federal Confidentiality of Alcohol and Drug Abuse Patient Records regulations: The Federal rules restrict any use of the information to criminally investigate or prosecute any alcohol or drug abuse patient.[facility] the event this information is protected by the Federal Confidentiality of Alcohol and Drug Abuse Patient Records regulations: The Federal rules restrict any use of the information to criminally investigate or prosecute any alcohol or drug abuse patient.[facility] the event this information is protected by the Federal Confidentiality of Alcohol and Drug Abuse Patient Records regulations: The Federal rules restrict any use of the information to criminally investigate or prosecute any alcohol or drug abuse patient.[facility] the event this information is protected by the Federal Confidentiality of Alcohol and Drug Abuse Patient Records regulations: The Federal rules restrict any use of the information to criminally investigate or prosecute any alcohol or drug abuse patient.[facility] the event this information is protected by the Federal Confidentiality of Alcohol and Drug Abuse Patient Records regulations: The Federal rules restrict any use of the information to criminally investigate or prosecute any alcohol or drug abuse patient.[facility] the event this information is protected by the Federal Confidentiality of Alcohol and Drug Abuse Patient Records regulations: The Federal rules restrict any use of the information to criminally investigate or prosecute any alcohol or drug abuse patient.[facility] the event this information is protected by the Federal Confidentiality of Alcohol and Drug Abuse Patient Records regulations: The Federal rules restrict any use of the information to criminally investigate or prosecute any alcohol or drug abuse patient.[facility] the event this information is protected by the Federal Confidentiality of Alcohol and Drug Abuse Patient Records regulations: The Federal rules restrict any use of the information to criminally investigate or prosecute any alcohol or drug abuse patient.[facility] the event this information is protected by the Federal Confidentiality of Alcohol and Drug Abuse Patient Records regulations: The Federal rules restrict any use of the information to criminally investigate or prosecute any alcohol or drug abuse patient.[facility] the event this information is protected by the Federal Confidentiality of Alcohol and Drug Abuse Patient Records regulations: The Federal rules restrict any use of the information to criminally investigate or prosecute any alcohol or drug abuse patient.[facility] the event this information is protected by the Federal Confidentiality of Alcohol and Drug Abuse Patient Records regulations: The Federal rules restrict any use of the information to criminally investigate or prosecute any alcohol or drug abuse patient.[facility] the event this information is protected by the Federal Confidentiality of Alcohol and Drug Abuse Patient Records regulations: The Federal rules restrict any use of the information to criminally investigate or prosecute any alcohol or drug abuse patient.[facility] the event this information is protected by the Federal Confidentiality of Alcohol and Drug Abuse Patient Records regulations: The Federal rules restrict any use of the information to criminally investigate or prosecute any alcohol or drug abuse patient.[facility] the event this information is protected by the Federal Confidentiality of Alcohol and Drug Abuse Patient Records regulations: The Federal rules restrict any use of the information to criminally investigate or prosecute any alcohol or drug abuse patient.[facility] the event this information is protected by the Federal Confidentiality of Alcohol and Drug Abuse Patient Records regulations: The Federal rules restrict any use of the information to criminally investigate or prosecute any alcohol or drug abuse patient.[facility] Hospital[facility] the event this information is protected by the Federal Confidentiality of Alcohol and Drug Abuse Patient Records regulations: The Federal rules restrict any use of the information to criminally investigate or prosecute any alcohol or drug abuse patient.[facility] HospitalIn the event this information is protected by the Federal Confidentiality of Alcohol and Drug Abuse Patient Records regulations: The Federal rules restrict any use of the information to criminally investigate or prosecute any alcohol or drug abuse patient.[facility] Hospital[facility] the event this information is protected by the Federal Confidentiality of Alcohol and Drug Abuse Patient Records regulations: The Federal rules restrict any use of the information to criminally investigate or prosecute any alcohol or drug abuse patient.[facility] Hospital[facility] the event this information is protected by the Federal Confidentiality of Alcohol and Drug Abuse Patient Records regulations: The Federal rules restrict any use of the information to criminally investigate or prosecute any alcohol or drug abuse patient.[facility] Hospital[facility] the event this information is protected by the Federal Confidentiality of Alcohol and Drug Abuse Patient Records regulations: The Federal rules restrict any use of the information to criminally investigate or prosecute any alcohol or drug abuse patient.[facility]In the event this information is protected by the Federal Confidentiality of Alcohol and Drug Abuse Patient Records regulations: The Federal rules restrict any use of the information to criminally investigate or prosecute any alcohol or drug abuse patient.[facility] the event this information is protected by the Federal Confidentiality of Alcohol and Drug Abuse Patient Records regulations: The Federal rules restrict any use of the information to criminally investigate or prosecute any alcohol or drug abuse patient.[facility]In the event this information is protected by the Federal Confidentiality of Alcohol and Drug Abuse Patient Records regulations: The Federal rules restrict any use of the information to criminally investigate or prosecute any alcohol or drug abuse patient.[facility] HospitalIn the event this information is protected by the Federal Confidentiality of Alcohol and Drug Abuse Patient Records regulations: The Federal rules restrict any use of the information to criminally investigate or prosecute any alcohol or drug abuse patient.[facility]In the event this information is protected by the Federal Confidentiality of Alcohol and Drug Abuse Patient Records regulations: The Federal rules restrict any use of the information to criminally investigate or prosecute any alcohol or drug abuse patient.[facility] Hospital[facility] the event this information is protected by the Federal Confidentiality of Alcohol and Drug Abuse Patient Records regulations: The Federal rules restrict any use of the information to criminally investigate or prosecute any alcohol or drug abuse patient.[facility] HospitalIn the event this information is protected by the Federal Confidentiality of Alcohol and Drug Abuse Patient Records regulations: The Federal rules restrict any use of the information to criminally investigate or prosecute any alcohol or drug abuse patient.[facility] HospitalIn the event this information is protected by the Federal Confidentiality of Alcohol and Drug Abuse Patient Records regulations: The Federal rules restrict any use of the information to criminally investigate or prosecute any alcohol or drug abuse patient.[facility] HospitalIn the event this information is protected by the Federal Confidentiality of Alcohol and Drug Abuse Patient Records regulations: The Federal rules restrict any use of the information to criminally investigate or prosecute any alcohol or drug abuse patient.[facility] HospitalIn the event this information is protected by the Federal Confidentiality of Alcohol and Drug Abuse Patient Records regulations: The Federal rules restrict any use of the information to criminally investigate or prosecute any alcohol or drug abuse patient.[facility] HospitalIn the event this information is protected by the Federal Confidentiality of Alcohol and Drug Abuse Patient Records regulations: The Federal rules restrict any use of the information to criminally investigate or prosecute any alcohol or drug abuse patient.[facility] HospitalIn the event this information is protected by the Federal Confidentiality of Alcohol and Drug Abuse Patient Records regulations: The Federal rules restrict any use of the information to criminally investigate or prosecute any alcohol or drug abuse patient.[facility] HospitalIn the event this information is protected by the Federal Confidentiality of Alcohol and Drug Abuse Patient Records regulations: The Federal rules restrict any use of the information to criminally investigate or prosecute any alcohol or drug abuse patient.[facility] HospitalIn the event this information is protected by the Federal Confidentiality of Alcohol and Drug Abuse Patient Records regulations: The Federal rules restrict any use of the information to criminally investigate or prosecute any alcohol or drug abuse patient.[facility] HospitalIn the event this information is protected by the Federal Confidentiality of Alcohol and Drug Abuse Patient Records regulations: The Federal rules restrict any use of the information to criminally investigate or prosecute any alcohol or drug abuse patient.[facility] HospitalIn the event this information is protected by the Federal Confidentiality of Alcohol and Drug Abuse Patient Records regulations: The Federal rules restrict any use of the information to criminally investigate or prosecute any alcohol or drug abuse patient.[facility] HospitalIn the event this information is protected by the Federal Confidentiality of Alcohol and Drug Abuse Patient Records regulations: The Federal rules restrict any use of the information to criminally investigate or prosecute any alcohol or drug abuse patient.[facility] Care Teams (unrecognized sec tion and content) Entertainment [employer] Media Correspondent Relationship Specialty Start Date End Date Indio Robledo, MADHAVI.NIKKI, DNP [address] [place] [address] PCP - General Family Practice 10/11/21 Entertainment [employer] Media Correspondent Relationship Specialty Start Date End Date Indio Robledo APRN.NIKKI, DNP [address] [place] [address] PCP - General Family Practice 10/11/21 Entertainment & Media Correspondent Relationship Specialty Start Date End Date Glenny Luque MD [address] [place] [address] PCP - General Family Medicine 08/27/22 Entertainment & Media Correspondent Relationship Specialty Start Date End Date Glenny Luque MD [address] [place] [address] PCP - General Family Medicine 08/27/22 Entertainment & Media Correspondent Relationship Specialty Start Date End Date Glenny Luque MD [address] [place] [address] PCP - General Family Medicine 08/27/22 Entertainment & Media Correspondent Relationship Specialty Start Date End Date Glenny Luque MD [address] [place] [address] PCP - General Family Medicine 08/27/22 Entertainment & Media Correspondent Relationship Specialty Start Date End Date Glenny Luque MD [address] [place] [address] PCP - General Family Medicine 08/27/22 Entertainment & Media Correspondent Relationship Specialty Start Date End Date Glenny Luque MD [address] [place] [address] PCP - General Family Medicine 08/27/22 Entertainment & Media Correspondent Relationship Specialty Start Date End Date Glenny Luque MD [address] [place] [address] PCP - General Family Medicine 08/27/22 Entertainment [employer] Media Correspondent Relationship Specialty Start Date End Date Glenny Luque MD [address] [place] [address] PCP - General Family Medicine 08/27/22 Entertainment & Media Correspondent Relationship Specialty Start Date End Date Glenny Luque MD [address] [place] [address] PCP - General Family Medicine 08/27/22 Entertainment & Media Correspondent Relationship Specialty Start Date End Date Glenny Luque MD [address] [place] [address] PCP - General Family Medicine 08/27/22 Entertainment & Media Correspondent Relationship Specialty Start Date End Date Glenny Luque MD [address] [place] [address] PCP - General Family Medicine 08/27/22 Entertainment & Media Correspondent Relationship Specialty Start Date End Date Glenny Luque MD [address] [place] [address] PCP - General Family Medicine 08/27/22 Entertainment & Media Correspondent Relationship Specialty Start Date End Date Glenny Luque MD [address] [place] [address] PCP - General Family Medicine 08/27/22 Entertainment & Media Correspondent Relationship Specialty Start Date End Date Glenny Luque MD [address] [place] [address] PCP - General Family Medicine 08/27/22 Entertainment & Media Correspondent Relationship Specialty Start Date End Date Glenny Luque MD [address] [place] [address] PCP - General Family Medicine 08/27/22 Entertainment & Media Correspondent Relationship Specialty Start Date End Date Glenny Luque MD [address] [place] [address] PCP - General Family Medicine 08/27/22 Entertainment & Media Correspondent Relationship Specialty Start Date End Date Glenny Luque MD [address] [place] [address] PCP - General Family Medicine 08/27/22 Entertainment & Media Correspondent Relationship Specialty Start Date End Date Glenny Luque MD [address] [place] [address] PCP - General Family Medicine 08/27/22 Entertainment & Media Correspondent Relationship Specialty Start Date End Date Glenny Luque MD [address] [place] [address] PCP - General Family Medicine 08/27/22 Entertainment & Media Correspondent Relationship Specialty Start Date End Date Glenny Luque MD [address] [place] [address] PCP - General Family Medicine 08/27/22 Laurel Toure APRN.CORPORATE TRAVEL EXPERT [address] [place] [address] [employer] Family Medicine 10/11/24 Hans Mccray APRN.CORPORATE TRAVEL EXPERT [address] [place] [address] [employer] Family Medicine 10/20/24 Entertainment & Media Correspondent Relationship Specialty Start Date End Date Glenny Luque MD [address] [place] [address] PCP - General Family Medicine 08/27/22 Laurel Toure APRN.CORPORATE TRAVEL EXPERT [address] [place] [address] [employer] Family [facility] 10/11/24 Hans Mccray APRN.CORPORATE TRAVEL EXPERT [address] [place] [address] [employer] Family [facility] 10/20/24 Entertainment [employer] Media Correspondent Relationship Specialty Start Date End Date Glenny Luque MD [address] [place] [address] PCP - General Family Medicine 08/27/22 Laurel Toure APRN.CORPORATE TRAVEL EXPERT [address] [place] [address] [employer] Family [facility] 10/11/24 Hans Mccray APRN.CORPORATE TRAVEL EXPERT [address] [place] [address] [employer] Family [facility] 10/20/24 Entertainment [employer] Media Correspondent Relationship Specialty Start Date End Date Glenny Luque MD [address] [place] [address] PCP - General Family Medicine 08/27/22 Laurel Toure APRN.CORPORATE TRAVEL EXPERT [address] [place] [address] [employer] Family [facility] 10/11/24 Hans Mccray APRN.CORPORATE TRAVEL EXPERT [address] [place] [address] [employer] [facility] 10/20/24 Entertainment [employer] Media Correspondent Relationship Specialty Start Date End Date Glenny Luque MD [address] [place] [address] PCP - General Family Medicine 08/27/22 Laurel Toure APRN.CORPORATE TRAVEL EXPERT [address] [place] [address] [employer] [facility] 10/11/24 Hans Mccray APRN.CORPORATE TRAVEL EXPERT [address] [place] [address] [employer] [facility] 10/20/24 Entertainment [employer] Media Correspondent Relationship Specialty Start Date End Date Glenny Luque MD [address] [place] [address] PCP - General Family Medicine 08/27/22 Hans Mccray APRN.CORPORATE TRAVEL EXPERT [address] [place], [place] [address] [employer] Family [facility] 10/20/24 Entertainment & Media Correspondent Relationship Specialty Start Date End Date Glenny Luque MD [address] [place], [place] [id number] PCP - General Family Medicine 08/27/22 Hans Mccray APRN.CORPORATE TRAVEL EXPERT [address] [place], [place] [id number] [employer] [facility] 10/20/24 Entertainment & Media Correspondent Relationship Specialty Start Date End Date Glenny Luque MD [address] [place], [place] [address] PCP - General Family Medicine 08/27/22 Hans Mccray APRN.CORPORATE TRAVEL EXPERT [address] [place], [place] [address] [employer] Family [facility] 10/20/24 Reason for Visit (unrecogniz ed section and content) Reason Comments Follow Up transferring care Reason Comments Follow Up 2 week BP check Reason Comments Follow Up 1 month follow up fo r BP Reason Comments Consult Reason Comments Follow Up BP med check Reason Onset Date Comments Refill Request 07/09/2023 Reason Onset Date Comments Refill Request 07/11/2023 Reason Comments Med Change Request Reason Comments Refill Request Reason Onset Date Comments Refill Request 02/06/2024 Reason Comments Follow Up For Blood pressure Reason Comments Results Reason Comments Radiology US Specialty Diagnoses / Procedures Referred By Contac t Referred To Contact US IMAGING Diagnoses Essential hypertension, benign Resistant hypertension Procedures US KIDNEY/BLADDER US RETROPERITONEAL REAL TIME W/IMAGE COMPLETE Hans Mccray APRN.CORPORATE TRAVEL EXPERT [address] [place] [address] [place] [id number] Referral ID Status Reason Start Date Expiration Date V isits Requested Visits Authorized [id number] Closed Auto-Generate d Referral 02/17/2024 03/18/2025 1 1 Reason Onset Date Comments Refill Request 03/09/2024 Reason Comments Opened In Error Reason Comments F/U 1 month Blood pressure Reason Onset Date Comments Refill Request 03/23/2024 Reason Comments Medication Problem Reason Comments fax referral to Dr Alexander Govea Reason Comments Laceration R thumb grated some skin off with cheese grater, and Left index finger with knife x last night Issues with bleeding Reason Onset Date Comments Population Health Navigation Outreach 09/18/2024 [facility] Surge list 2023 Reason Comments Medicare Wellness Exam Reason Onset Date Comments Refill Request 01/25/2025 Reason Onset Date Comments Population Health Navigation Outreach 03/03/2025 [facility] Reason Comments Follow Up BP Reason Onset Date Comments Population Health Navigation Outreach [facility]/07[facility]20[facility] Reason Comments medical consultation form Luanne Oral S urgery INFORMATION SOURCE (unrecogn ized section and content) DATE CREATED AUTHOR 10/31/2024 [facility] DATE CREATED AUTHOR AUTHOR'S ORGANIZ ATION 04/30/2025 [facility] FOR RECORDS PERTAINING TO PATIENTS WHO ARE OR HAVE BEEN ENROLLED IN A CHEMICAL DEPENDENCY/SUBSTANCEABUSE PROGRAM, SOME INFORMATION MAY BE OMITTED. This clinical summary was aggregated from multiple sources. Caution should be exercised in using it in the provision of clinical care. This summary normalizes information from multiple sources, and as a consequence, information in this document may materially change the coding, format and clinical context of patient data. In addition, data may be omitted in some cases. CLINICAL DECISIONS SHOULD BE BASED ON THE PRIMARY CLINICAL RECORDS. [employer] provides no warranty or guarantee of the accuracy or completeness of information in this document.
--- NOTE | 2025-05-29 13:30 | RAD_ITS ---
EXAM: XR Chest, 1 View CLINICAL INDICATION: SOB TECHNIQUE: Frontal view of the chest. COMPARISON: No relevant prior studies available. FINDINGS: LUNGS AND PLEURAL SPACES: Left basilar atelectasis or pneumonia. No pneumothorax. HEART: Unremarkable. No cardiomegaly. MEDIASTINUM: Unremarkable. Normal mediastinal contour. BONES/JOINTS: Unremarkable. No acute fracture. RAD/Chest 1 View (Portable) IMPRESSION: Left basilar atelectasis or pneumonia. Reading Location: [facility]
[2025-05-29 13:33] LABS: Hematocrit 27.1 % (37-47); Hemoglobin 10.2 g/dL (12.0-15.0); Mean Corp Hgb Conc 37.6 g/dL (32-36); Mean Corpuscular Volume 78.3 fL (81-99); Mean Platelet Vol. 9.3 fl (6.2-12.0); POSITIVE COUNT YES; Platelet Count 257 K/mm3 (150-450); RBC Distribution Width CV 13.2 % (11.6-14.6); RBC Distribution Width SD 37.3 fl (35.1-43.9); Red Blood Count 3.46 M/mm3 (4.2-5.4); White Blood Count 8.6 K/mm3 (4.4-11.0)
[2025-05-29 14:10] LABS: Mucous, Urine 0 SEEN /hpf (<or=2+); Red Blood Cells-Urine 0 SEEN /hpf (0-5)
[2025-05-29 14:13] LABS: Color, Urine Yellow (Yellow); Glucose, Dipstick Normal (Normal); Ketone-Dipstick 5 mg/dl (Negative); Leukocyte Esterase-Dipstick 500 /ul (Negative); Nitrite-Dipstick Negative (Negative); Occult Blood-Urine Negative /ul (Negative); Protein-Dipstick 15 mg/dl (Negative); Specific Gravity, Urine 1.010 (1.002-1.030); Urine Bilirubin Dipstick Negative (Negative)
[2025-05-29 14:21] LABS: Squamous Epithelial Cells - UA 0-5 SEEN /hpf (5-10)
[2025-05-29 14:28] LABS: Pro- Brain NATRIURETIC PEPTIDE 5274 pg/mL (<=1800); Troponin T High Sensitivity 20 ng/L (<=14)
[2025-05-29 14:39] LABS: AST(SGOT) 21 U/L (<=31); Alanine Aminotransfer ALT/SGPT 23 U/L (<=34); Albumin, Serum 3.9 g/dL (3.4-4.8); Alkaline Phosphatase 76 U/L (35-104); Anion Gap 12 (5-15); BUN 21 mg/dL (4-19); BUN/Creat Ratio 20.2 RATIO (10-20); Calcium,Total 8.7 mg/dL (7.6-11.0); Carbon Dioxide 21.6 mmol/L (21.0-32.0); Chloride 73 mmol/L (98-108); Estimated Creatinine Clearance 36.18 ml/min (50-250); Globulin 2.3 g/dL (2.2-4.2); Glucose 121 mg/dL (70-99); Potassium 3.5 mmol/L (3.3-5.1)
--- NOTE | 2025-05-29 15:05 | CM.ED ---
Social Work Date of referral: 05/29/25 Reason for referral: Advanced Care Directives (ACD's) not on file. Referred by: Social Work Identification Patient provided consent for Social Work Visit. Dehydration Plant Operator requested a copy of patient's ACD's which patient agreed to bring in. Vangie Diggs, NUCLEAR PLANT INSTRUMENT TECHNICIAN, YOUTH COORDINATOR
[2025-05-29 15:22] LABS: Anion Gap 14 (5-15); BUN 22 mg/dL (4-19); BUN/Creat Ratio 21.1 RATIO (10-20); Calcium,Total 8.4 mg/dL (7.6-11.0); Carbon Dioxide 21.3 mmol/L (21.0-32.0); Chloride 72 mmol/L (98-108); Estimated Creatinine Clearance 36.88 ml/min (50-250); Glucose 113 mg/dL (70-99); Potassium 3.3 mmol/L (3.3-5.1)
[2025-05-29] MEDS: Sodium Bicarbonate 8.4% 50 ML Syringe 50 MEQ IV (15:28)
[2025-05-29] MEDS: 0.9% Normal Saline (1000mL) 1,000 ML 999 ML IV (15:29)
[2025-05-29 15:48] LABS: Troponin T High Sens 2 HR 17 ng/L (<=14)
--- OUTSIDE RECORDS SUMMARY | 2025-05-29 15:57 | XMS RPT_ITS | CCD ---
Author Organization [facility] Care Team Providers Care Marketing Sales Consultant Name Role Phone Meena ELECTRIC MOTOR REBUILDER.AUTOMOBILE TRAVEL CLUB COUNSELOR, DNP, [place] Primary Care Provider Glenny Luque [...] Porfirio Attending Unavailable Elderbrock, Glenny Referring Unavailable Center [place], Porfirio Attending Unavailable Elderbrock, Glenny Primary Care Unavailable Ordonez, Carissa Consulting Unavailable Hamida, Porfirio Referring Unavailable Hamida, Porfirio Consulting Unavailable Center [place], Porfirio Attending Unavailable Elderbrock, Glenny Primary Care Unavailable Ordonez, Carissa Consulting Unavailable Hamida, Porfirio Referring Unavailable Tannhof ELECTRIC MOTOR REBUILDER.Laurel JORDAN Unavailable Mahendra ELECTRIC MOTOR REBUILDER.Hans JORDAN Unavailable Tannhof ELECTRIC MOTOR REBUILDER.Laurel JORDAN Unavailable ELDERGLENNY CHAVIRA Primary Care Unavailable [...] sources) Codeine; Translations: [CODEINE] Drug Allergy 5 [facility] Work Phone: (20 sources) Spironolactone; Translations: [SPIRONOLACTONE] Drug Allergy 9 Other: See Comments [facility] (20 sources) Sulfonamides (Antibiotic); Translations: [SULFA (SULFONAMIDE ANTIBIOTICS)] Propensity to adverse reactions 5 [facility] Work Phone: Medications Current Medications Medication [...] tablet by lori th twice a day xs-dsk-hzgyp-calciu m carb-K1 (WOMEN'S 50 PLUS MULTIVITAMIN) 400 mcg-500 mg calcium-20 mcg tab (8 sources) Start: 11-26-2024 take 1 tablet by mouth once daily gv-irn-hupkz-calci um carb-K1 (WOMEN'S 50 PLUS MULTIVITAMIN) 400 [...] Value Interpretation Reference Range Devon Pope 04-22-2025 [facility] Telephone (FAMWS) ALVARADO COHEN ([id number]) 1945 F Date Time Provider Department 04/22/25 GLENNY LUQUE [facility] During your visit today, we recorded the following information about you: Tiffanie Ruff MA 04/22/2025 8:56 AM Signed Type of letter/form/fax request - Medical Consultation Form Form received from fax on 1 floor and placed on MD desk (Dr. Luque) for completion. Completed form needs to be faxed to Dr. Irvin Gallo DMD, MD at [phone] [facility]. Route to [place] when form completed for processing Glenny Luque [...] Irvin Gallo DMD, MD at fax # [phone] [facility]. Shavonne Lopez RN Allergies As of Date: 04/22/2025 Noted Allergy Reaction CODEINE 09/10/2005 SPIRONOLACTONE 07/08/2019 14 - Other: See Comments Comments: lightheadedness SULFA (SULFONAMIDE ANTIBIOTICS) 09/10/2005 Date Reviewed: 03/22/2025 Reviewed by: Leeanne Sterling MA - Fully Assessed Reason for Visit: medical consultation form [Other] Cmt: [facility] Prescriptions as of 04/28/2025 - [...] and stay upright for 30 min. - uc-qmc-sccjc-calcium carb-K1 (WOMEN'S 50 PLUS MULTIVITAMIN) 400 mcg-500 [...] Status:Closed by SHAVONNE LOPEZ on 04/28/25 Normal [facility] Basic metabolic 2000 panelon 04-01-2025 Anion gap [Moles/Vol] 13 mmol/L Normal 8-15 [facility] Comment on above: Order Comment: Speci men Type: BLOOD SPECIMENOrdering Facility: [facility] Address: [address] [place] [address] Performed By: #### 2 4321-2 ####[facility] LABIA [id number] [place] [address] [place] Calcium [Mass/Vol] 9.6 mg/dL Normal 8.5-10.2 [facility] Comment on above: Order Comment: Speci men Type: BLOOD SPECIMENOrdering Facility: [facility] Address: [address] [place] [address] Performed By: #### 2 4321-2 ####[facility] LABIA [id number] [place] [id number] [place] Chloride [Moles/Vol] 96 mmol/L Low 98-107 [facility] Comment on above: Order Comment: Speci men Type: BLOOD SPECIMENOrdering Facility: [facility] Address: [address] [place] [address] Performed By: #### 2 4321-2 ####[facility] LABCLIA [id number] [address] [address] [place] CO2 [Moles/Vol] 22 mmol/L Normal 22-30 [facility] Comment on above: Order Comment: Speci men Type: BLOOD SPECIMENOrdering Facility: [facility] Address: [address] [place] [address] Performed By: #### 2 4321-2 ####[facility] LABCLIA [id number] [address] [place] [address] [place] Creatinine [Mass/Vol] 1.03 mg/dL High 0.58-0.96 [facility] Comment on above: Order Comment: Speci men Type: BLOOD SPECIMENOrdering Facility: [facility] Address: [facility] [place] [address] Performed By: #### 2 4321-2 ####[facility] LABCLIA [id number] [address] [place] [address] [place] Creatinine and Glomerular filtration rate.predicted panel (S/P/Bld) 56 mL/min/1.73m??? Low >=60 [facility] Comment on above: Order Comment: Speci men Type: BLOOD SPECIMENOrdering Facility: [facility] Address: [facility] [place] [address] Result Comment: Madisyn mated Glomerular Filtration Rate [...] actual GFR. Performed By: #### 2 4321-2 ####[facility] LABCLIA [id number] [address] [place] [address] [place] Glucose [Mass/Vol] 72 mg/dL Low 74-99 [facility] Comment on above: Order Comment: Alex billy Type: BLOOD SPECIMENOrdering Facility: [facility] Address: [address] [place] [address] Result Comment: The [place] Diabetes Association (ADA) provides guidance for cutoff [...] Standards of Medical Care in Diabetes 2016, [place] [employer] Association. Diabetes Care. 2016.39(Suppl 1). Performed By: #### 2 4321-2 ####[facility] LABCLIA [id number] [address] [address] [place] Potassium [Moles/Vol] 4.5 mmol/L Normal 3.7-5.1 [facility] Comment on above: Order Comment: Alex billy Type: BLOOD SPECIMENOrdering Facility: [facility] Address: [facility] [place] [address] Performed By: #### 2 4321-2 ####[facility] LABCLIA [id number] [address] [address] [place] Sodium [Moles/Vol] 131 mmol/L Low 136-144 [facility] Comment on above: Order Comment: Alex mariajose Type: BLOOD SPECIMENOrdering Facility: [facility] Address: [facility] [place] [address] Performed By: #### 2 4321-2 ####[facility] LABCLIA [id number] [facility] [address] [address] [place] Urea nitrogen [Mass/Vol] 27 mg/dL High 7-21 [facility] Comment on above: Order Comment: Speci men Type: BLOOD SPECIMENOrdering Facility: [facility] Address: [address] [place] [address] Performed By: #### 2 4321-2 ####[facility] LABCLDEWEY [id number] VAHID ALVARADO [address] STATES OF [facility] CNOVon 03-22-2025 CNOV Office Visit (FAMPWS ) ALVARADO COHEN ([id number]) 1945 F Date Time Provider Department 03/22/25 3:20 PM GLENNY LUQUE [facility] During your visit today, we recorded the [...] tablet by mouth three times a day. zg-wfc-tdcmx-calcium carb-K1 (WOMEN'S 50 PLUS MULTIVITAMIN) 400 mcg-500 [...] C Screening (more content not included)... Normal [facility] Basic metabolic 2000 panelon 02-22-2025 Anion gap [Moles/Vol] 10 mmol/L Normal 8-15 [facility] Comment on above: Order Comment: Speci mariajose Type: BLOOD SPECIMENOrdering Facility: [facility] Address: [facility] [place] [address] Performed By: #### 2 4321-2 ####[facility] LABCLIA [id number] [place] [address] [place] Calcium [Mass/Vol] 9.3 mg/dL Normal 8.5-10.2 [facility] Comment on above: Order Comment: Speci men Type: BLOOD SPECIMENOrdering Facility: [facility] Address: [address] [place] [address] Performed By: #### 2 4321-2 ####[facility] LABCLIA [id number] [address] [address] [place] Chloride [Moles/Vol] 95 mmol/L Low 98-107 [facility] Comment on above: Order Comment: Speci men Type: BLOOD SPECIMENOrdering Facility: [facility] Address: [address] [place] [address] Performed By: #### 2 4321-2 ####[facility] LABCLIA [id number] [facility] [place] [id number] [place] CO2 [Moles/Vol] 24 mmol/L Normal 22-30 [facility] Comment on above: Order Comment: Speci men Type: BLOOD SPECIMENOrdering Facility: [facility] Address: [address] [place] [address] Performed By: #### 2 4321-2 ####[facility] LABCLIA [id number] [place] [address] [place] Creatinine [Mass/Vol] 0.98 mg/dL High 0.58-0.96 [facility] Comment on above: Order Comment: Speci men Type: BLOOD SPECIMENOrdering Facility: [facility] Address: [address] [place] [address] Performed By: #### 2 4321-2 ####[facility] LABCLIA [id number] [facility] [address] [address] [place] Creatinine and Glomerular filtration rate.predicted panel (S/P/Bld) 59 mL/min/1.73m??? Low >=60 [facility] Comment on above: Order Comment: Speci men Type: BLOOD SPECIMENOrdering Facility: [facility] Address: [address] [place] [address] Result Comment: Madisyn mated Glomerular Filtration Rate [...] actual GFR. Performed By: #### 2 4321-2 ####[facility] LABIA [id number] [address] [address] [place] Glucose [Mass/Vol] 88 mg/dL Normal 74-99 [facility] Comment on above: Order Comment: Alex billy Type: BLOOD SPECIMENOrdering Facility: [facility] Address: [facility] [address] [place] [id number] Result Comment: The [place] Diabetes Association (ADA) provides guidance for cutoff [...] Standards of Medical Care in Diabetes 2016, [place] [employer] Association. Diabetes Care. 2016.39(Suppl 1). Performed By: #### 2 4321-2 ####[facility]IA [id number] [address] [address] [place] Potassium [Moles/Vol] 4.2 mmol/L Normal 3.7-5.1 [facility] Comment on above: Order Comment: Alex billy Type: BLOOD SPECIMENOrdering Facility: [facility] Address: [address] [place] [id number] Performed By: #### 2 4321-2 ####[facility] LABCLIA [id number] [address] [address] [place] Sodium [Moles/Vol] 129 mmol/L Low 136-144 [facility] Comment on above: Order Comment: Speci men Type: BLOOD SPECIMENOrdering Facility: [facility] Address: [address] [place] [address] Performed By: #### 2 4321-2 ####[facility] LABCLIA [id number] [address] [place] [address] [place] Urea nitrogen [Mass/Vol] 23 mg/dL High 7-21 [facility] Comment on above: Order Comment: Speci men Type: BLOOD SPECIMENOrdering Facility: [facility] Address: [place] [address] Performed By: #### 2 4321-2 ####[facility] LABIA [id number] [address] [address] [place] BD DXA - AXIAL SKELETONon BD DXA - AXIAL SKELETON * * *Final Report* * * DATE OF EXAM: Jan 01 2025 12:46PM [facility] 0804 - BD DXA - AXIAL SKELETON / PROCEDURE REASON: Age-related osteoporosis without current pathological fracture * * * * Physician Interpretation * * * * EXAMINATION: DXA BONE DENSITOMETRY BD DXA - AXIAL SKELETON, BD DXA TRABECLR BONE SCORE (TBS) PATIENT DEMOGRAPHICS: Age: 79 years, Gender: Female SCANNER INFORMATION: DXA Model: [employer] C [address] Date Scanned: 01/01/2025 12:46 PM CLINICAL HISTORY: [...] FOR MORE INFORMATION ABOUT DIAGNOSIS AND TREATMENT: [facility] Center for Osteoporosis and Metabolic Bone Disease:? www.ccf.org/arthritis/ osteo National Osteoporosis Foundation:? www.nof.org International Society of Clinical Densitometry www.iscd.org City Director: ALEX Transcribe Date/Time: Jan 04 2025 11:04A Dictated by : MILO GONZALEZ MD This examination was interpreted and the report reviewed and electronically signed by: MILO GONZALEZ MD on Jan 04 2025 11:06AM EST [id number] -3.0 Normal [facility] BD DXA TRABECLR BONE SCORE ( TBS)on 01-01-2025 BD DXA TRABECLR BONE SCORE (TBS) * * *Final Report* * * DATE OF EXAM: Jan 01 2025 12:46PM [facility] 0801 - BD DXA TRABECLR BONE SCORE (TBS) / PROCEDURE REASON: Age-related osteoporosis without current pathological fracture * * * * Physician Interpretation * * * * EXAMINATION: DXA BONE DENSITOMETRY BD DXA - AXIAL SKELETON, BD DXA TRABECLR BONE SCORE (TBS) PATIENT DEMOGRAPHICS: Age: 79 years, Gender: Female SCANNER INFORMATION: DXA Model: [employer] C [address]286 Date Scanned: 01/01/2025 12:46 PM CLINICAL HISTORY: [...] FOR MORE INFORMATION ABOUT DIAGNOSIS AND TREATMENT: [facility] Center for Osteoporosis and Metabolic Bone Disease:? www.ccf.org/arthritis/ osteo National Osteoporosis Foundation:? www.nof.org International Society of Clinical Densitometry www.iscd.org City Director: ALEX Transcribe Date/Time: Jan 04 2025 11:04A Dictated by : MILO GONZALEZ MD This examination was interpreted and the report reviewed and electronically signed by: MILO GONZALEZ MD on Jan 04 2025 11:06AM EST [id number] -3.0 Normal [facility] CBC W Auto Differential pane l (Bld)on 12-09-2024 Basophils (Bld) [#/Vol] 0.08 10*3/uL Normal <0.11 [facility] Comment on above: Order Comment: Speci men Type: BLOOD SPECIMENOrdering Facility: [facility] Address: [address] [place] [address] Performed By: #### 5 7021-8 ####[facility] LABCLIA [id number] [place] [address] [place] Basophils/100 WBC (Bld) 0.9 % Normal [facility] Comment on above: Order Comment: Speci men Type: BLOOD SPECIMENOrdering Facility: [facility] Address: [address] [place] [address] Performed By: #### 5 7021-8 ####[facility] LABCLIA [id number] [place] [address] [place] Differential cell count method Nom (Bld) Auto Normal [facility] Comment on above: Order Comment: Speci men Type: BLOOD SPECIMENOrdering Facility: [facility] Address: [address] [place] [address] Performed By: #### 5 7021-8 ####[facility] LABCLIA [id number] [place] [address] [place] Eosinophils (Bld) [#/Vol] 0.25 10*3/uL Normal <0.46 [facility] Comment on above: Order Comment: Speci men Type: BLOOD SPECIMENOrdering Facility: [facility] Address: [address] [place] [address] Performed By: #### 5 7021-8 ####[facility] LABCLIA [id number] [place] [address] [place] Eosinophils/100 WBC (Bld) 2.8 % Normal [facility] Comment on above: Order Comment: Speci men Type: BLOOD SPECIMENOrdering Facility: [facility] Address: [address] [place] [address] Performed By: #### 5 7021-8 ####[facility] LABCLIA [id number] [place] [address] [place] Erythrocyte distribution width (RBC) [Ratio] 14.6 % Normal 11.5-15.0 [facility] Comment on above: Order Comment: Speci men Type: BLOOD SPECIMENOrdering Facility: [facility] Address: [address] [place] [address] Performed By: #### 5 7021-8 ####[facility] LABCLIA [id number] [place] [address] [place] Hematocrit (Bld) [Volume fraction] 36.5 % Normal 36.0-46.0 [facility] Comment on above: Order Comment: Speci men Type: BLOOD SPECIMENOrdering Facility: [facility] Address: [address] [place] [address] Performed By: #### 5 7021-8 ####[facility] LABCLIA [id number] [place] [address] [place] Hemoglobin (Bld) [Mass/Vol] 11.9 g/dL Normal 11.5-15.5 [facility] Comment on above: Order Comment: Speci men Type: BLOOD SPECIMENOrdering Facility: [facility] Address: [address] [place] [address] Performed By: #### 5 7021-8 ####[facility] LABCLIA [id number] [place] [address] [place] Immature granulocytes (Bld) [#/Vol] 10*3/uL Normal <0.10 [facility] Comment on above: Order Comment: Speci men Type: BLOOD SPECIMENOrdering Facility: [facility] Address: [address] [place] [address] Performed By: #### 5 7021-8 ####[facility] LABCLIA [id number] [place] [address] [place] Immature granulocytes/100 WBC (Bld) 0.2 % Normal [facility] Comment on above: Order Comment: Speci men Type: BLOOD SPECIMENOrdering Facility: [facility] Address: [address] [place] [address] Performed By: #### 5 7021-8 ####[facility] LABCLIA [id number] [place] [address] [place] Lymphocytes (Bld) [#/Vol] 1.66 10*3/uL Normal 1.00-4.00 [facility] Comment on above: Order Comment: Speci men Type: BLOOD SPECIMENOrdering Facility: [facility] Address: [address] [place] [address] Performed By: #### 5 7021-8 ####[facility] LABCLIA [id number] [place] [address] [place] Lymphocytes/100 WBC (Bld) 18.6 % Normal [facility] Comment on above: Order Comment: Speci men Type: BLOOD SPECIMENOrdering Facility: [facility] Address: [address] [place] [address] Performed By: #### 5 7021-8 ####[facility] LABCLIA [id number] [place] [address] [place] MCH (RBC) [Entitic mass] 29.0 pg Normal 26.0-34.0 [facility] Comment on above: Order Comment: Speci men Type: BLOOD SPECIMENOrdering Facility: [facility] Address: [address] [place] [address] Performed By: #### 5 7021-8 ####[facility] LABCLIA [id number] [place] [address] [place] MCHC (RBC) [Mass/Vol] 32.6 g/dL Normal 30.5-36.0 [facility] Comment on above: Order Comment: Speci men Type: BLOOD SPECIMENOrdering Facility: [facility] Address: [address] [place] [address] Performed By: #### 5 7021-8 ####[facility] LABCLIA [id number] [place] [address] [place] MCV (RBC) [Entitic vol] 88.8 fL Normal 80.0-100.0 [facility] Comment on above: Order Comment: Speci men Type: BLOOD SPECIMENOrdering Facility: [facility] Address: [address] [place] [address] Performed By: #### 5 7021-8 ####[facility] LABCLIA [id number] [place] [address] [place] Monocytes (Bld) [#/Vol] 0.85 10*3/uL Normal <0.87 [facility] Comment on above: Order Comment: Speci men Type: BLOOD SPECIMENOrdering Facility: [facility] Address: [address] [place] [address] Performed By: #### 5 7021-8 ####[facility] LABCLIA [id number] [place] [address] [place] Monocytes/100 WBC (Bld) 9.5 % Normal [facility] Comment on above: Order Comment: Speci men Type: BLOOD SPECIMENOrdering Facility: [facility] Address: [address] [place] [address] Performed By: #### 5 7021-8 ####[facility] LABCLIA [id number] [place] [address] [place] Neutrophils (Bld) [#/Vol] 6.06 10*3/uL Normal 1.45-7.50 [facility] Comment on above: Order Comment: Speci men Type: BLOOD SPECIMENOrdering Facility: [facility] Address: [address] [place] [address] Performed By: #### 5 7021-8 ####[facility] LABCLIA [id number] [place] [address] [place] Neutrophils/100 WBC (Bld) 68.0 % Normal [facility] Comment on above: Order Comment: Speci men Type: BLOOD SPECIMENOrdering Facility: [facility] Address: [address] [place] [address] Performed By: #### 5 7021-8 ####[facility] LABCLIA [id number] [place] [address] [place] Nucleated RBC (Bld) [#/Vol] 10*3/uL Normal <0.01 [facility] Comment on above: Order Comment: Speci men Type: BLOOD SPECIMENOrdering Facility: [facility] Address: [address] [place] [address] Performed By: #### 5 7021-8 ####[facility] LABCLIA [id number] [place] [address] [place] Nucleated RBC/100 WBC (Bld) [Ratio] 0.0 /100 WBC Normal [facility] Comment on above: Order Comment: Speci men Type: BLOOD SPECIMENOrdering Facility: [facility] Address: [address] [place] [address] Performed By: #### 5 7021-8 ####[facility] LABCLIA [id number] [place] [address] [place] Platelet mean volume (Bld) [Entitic vol] 9.9 fL Normal 9.0-12.7 [facility] Comment on above: Order Comment: Speci men Type: BLOOD SPECIMENOrdering Facility: [facility] Address: [address] [place] [address] Performed By: #### 5 7021-8 ####[facility] LABCLIA [id number] [place] [address] [place] Platelets (Bld) [#/Vol] 345 10*3/uL Normal 150-400 [facility] Comment on above: Order Comment: Speci men Type: BLOOD SPECIMENOrdering Facility: [facility] Address: [address] [place] [address] Performed By: #### 5 7021-8 ####[facility] LABCLIA [id number] [place] [address] [place] RBC (Bld) [#/Vol] 4.11 10*6/uL Normal 3.90-5.20 [facility] Comment on above: Order Comment: Speci men Type: BLOOD SPECIMENOrdering Facility: [facility] Address: [address] [place] [address] Performed By: #### 5 7021-8 ####[facility] LABCLIA [id number] [place] [address] [place] WBC (Bld) [#/Vol] 8.92 10*3/uL Normal 3.70-11.00 [facility] Comment on above: Order Comment: Speci men Type: BLOOD SPECIMENOrdering Facility: [facility] Address: [address] [place] [address] Performed By: #### 5 7021-8 ####[facility]CL[facility] [id number] [place] [address] [place] Comprehensive metabolic 2000 panelon 12-09-2024 Albumin [Mass/Vol] 4.4 g/dL Normal 3.9-4.9 [facility] Comment on above: Order Comment: Speci men Type: BLOOD SPECIMENOrdering Facility: [facility] Address: [address] [place] [address] Performed By: #### 2 4323-8, 02186-5 ####[facility]CL[facility] [id number] [place] [address] [place] ALP [Catalytic activity/Vol] 90 U/L Normal 34-123 [facility] Comment on above: Order Comment: Speci men Type: BLOOD SPECIMENOrdering Facility: [facility] Address: [address] [place] [address] Performed By: #### 2 4323-8, 47638-8 ####[facility] [id number] [id number] [address] [place] ALT [Catalytic activity/Vol] 21 U/L Normal 7-38 [facility] Comment on above: Order Comment: Speci men Type: BLOOD SPECIMENOrdering Facility: [facility] Address: [address] [id number] Performed By: #### 2 4323-8, 23497-4 ####[facility]CL[facility] [id number] [place] [address] [place] Anion gap [Moles/Vol] 11 mmol/L Normal 8-15 [facility] Comment on above: Order Comment: Speci men Type: BLOOD SPECIMENOrdering Facility: [facility] Address: [address] [place] [address] Performed By: #### 2 4323-8, 93384-0 ####[facility] [id number] [place] [address] [place] AST [Catalytic activity/Vol] 18 U/L Normal 13-35 [facility] Comment on above: Order Comment: Speci men Type: BLOOD SPECIMENOrdering Facility: [facility] Address: [address] [place] [address] Performed By: #### 2 4323-8, 58375-6 ####[facility] [id number] [place] [address] [place] Bilirubin [Mass/Vol] 0.3 mg/dL Normal 0.2-1.3 [facility] Comment on above: Order Comment: Speci men Type: BLOOD SPECIMENOrdering Facility: [facility] Address: [address] [id number] Performed By: #### 2 4323-8, 51303-1 ####[facility]CL[facility] [id number] [place] [id number] [place] Calcium [Mass/Vol] 9.5 mg/dL Normal 8.5-10.2 [facility] Comment on above: Order Comment: Speci men Type: BLOOD SPECIMENOrdering Facility: [facility] Address: [address] [place] [address] Performed By: #### 2 4323-8, 53697-9 ####[facility] [id number] [place] [address] [place] Chloride [Moles/Vol] 95 mmol/L Low 98-107 [facility] Comment on above: Order Comment: Speci men Type: BLOOD SPECIMENOrdering Facility: [facility] Address: [address] [place] [address] Performed By: #### 2 4323-8, 96364-2 ####[facility] [id number] [place] [address] [place] CO2 [Moles/Vol] 23 mmol/L Normal 22-30 [facility] Comment on above: Order Comment: Speci men Type: BLOOD SPECIMENOrdering Facility: [facility] Address: [address] [place] [address] Performed By: #### 2 4323-8, 14380-4 ####[facility] [id number] [place] [address] [place] Creatinine [Mass/Vol] 1.11 mg/dL High 0.58-0.96 [facility] Comment on above: Order Comment: Speci men Type: BLOOD SPECIMENOrdering Facility: [facility] Address: [address] [place] [address] Performed By: #### 2 4323-8, 11268-4 ####[facility] [id number] [place] [address] [place] Creatinine and Glomerular filtration rate.predicted panel (S/P/Bld) 51 mL/min/1.73m??? Low >=60 [facility] Comment on above: Order Comment: Speci men Type: BLOOD SPECIMENOrdering Facility: [facility] Address: [address] [place] [address] Result Comment: Madisyn mated Glomerular Filtration Rate [...] actual GFR. Performed By: #### 2 4323-8, 61615-2 ####[facility] LABIA [id number] [place] [address] [place] Glucose [Mass/Vol] 89 mg/dL Normal 74-99 [facility] Comment on above: Order Comment: Speci men Type: BLOOD SPECIMENOrdering Facility: [facility] Address: [address] [place] [address] Result Comment: The [place] Diabetes Association (ADA) provides guidance for cutoff [...] Standards of Medical Care in Diabetes 2016, [place] Diabetes Association. Diabetes Care. 2016.39(Suppl 1). Performed By: #### 2 4323-8, 10829-9 ####[facility] LABIA [id number] [place] [address] [place] Potassium [Moles/Vol] 4.6 mmol/L Normal 3.7-5.1 [facility] Comment on above: Order Comment: Jorgei men Type: BLOOD SPECIMENOrdering Facility: [facility] Address: [address] [place] [address] Performed By: #### 2 4323-8, 01093-3 ####[facility] LABIA [id number] [place] [address] [place] Protein [Mass/Vol] 7.2 g/dL Normal 6.3-8.0 [facility] Comment on above: Order Comment: Speci men Type: BLOOD SPECIMENOrdering Facility: [facility] Address: [address] [place] [address] Performed By: #### 2 4323-8, 48510-7 ####[facility]CL[facility] [id number] [place] [address] [place] Sodium [Moles/Vol] 129 mmol/L Low 136-144 [facility] Comment on above: Order Comment: Speci men Type: BLOOD SPECIMENOrdering Facility: [facility] Address: [address] [place] [address] Performed By: #### 2 4323-8, 55739-3 ####[facility]CL[facility] [id number] [place] [address] [place] Urea nitrogen [Mass/Vol] 25 mg/dL High 7-21 [facility] Comment on above: Order Comment: Speci men Type: BLOOD SPECIMENOrdering Facility: [facility] Address: [address] [place] [address] Performed By: #### 2 4323-8, 88997-9 ####[facility]CL[facility] [id number] [place] [address] [place] Lipid 1996 panelon 5 Cholesterol [Mass/Vol] 192 mg/dL Normal <200 [facility] Comment on above: Order Comment: Speci men Type: BLOOD SPECIMENOrdering Facility: [facility] Address: [address] [place] [address] Result Comment: <200 mg/dL, Desirable 200-239 mg/dL, Borderline high >239 mg/dL, High Performed By: #### 2 4323-8, 80577-7 ####[facility] [id number] [place] [address] [place] Cholesterol in HDL [Mass/Vol] 83 mg/dL Normal >39 [facility] Comment on above: Order Comment: Alex billy Type: BLOOD SPECIMENOrdering Facility: [facility] Address: [address] [place] [address] Result Comment: 40-5 9 mg/dL, Acceptable >59 mg/dL, High: Negative risk factor for coronary heart disease <40 mg/dL, Low: Positive risk factor for coronary heart disease Performed By: #### 2 4323-8, 15234-3 ####[facility] [id number] [address] Cholesterol in LDL [Mass/Vol] 93 mg/dL Normal <100 [facility] Comment on above: Order Comment: Jorgebernadine billy Type: BLOOD SPECIMENOrdering Facility: [facility] Address: [address] [place] [address] Result Comment: <100 mg/dL, Optimal 100-129 mg/dL, Near optimal/above optimal 130-159 mg/dL, Borderline high 160-189 mg/dL, High >189 mg/dL, Very high Secondary prevention optimal LDL Cholesterol levels are recommended to be < 70 mg/dL Performed By: #### 2 4323-8, 55221-2 ####[facility] [id number] [address] Cholesterol in LDL/Cholesterol in HDL [Mass ratio] 1.12 {ratio} Normal <2.54 [facility] Comment on above: Order Comment: Alex billy Type: BLOOD SPECIMENOrdering Facility: [facility] Address: [address] [place] [address] Result Comment: Refe rence: 1. National Cholesterol Education Program ATP III Guideline At-A-Glance Quick Desk Reference: National Heart, Lung, and Blood Hunter. National Institutes of Health. 2001: NIH Publication No. 01-3305. 2. An International Atherosclerosis Society position paper: global recommendations for the management of dyslipidemia: executive summary, Atherosclerosis. 2014: 232(2):410-413. Performed By: #### 2 4323-8, 54989-5 ####[facility]CL[facility] [id number] [address] [address] [place] Cholesterol in VLDL [Mass/Vol] 16 mg/dL Normal <30 [facility] Comment on above: Order Comment: Speci men Type: BLOOD SPECIMENOrdering Facility: [facility] Address: [address] [place] [address] Performed By: #### 2 4323-8, 41084-4 ####[facility]CLIA [id number] [place] [address] [place] Cholesterol non HDL [Mass/Vol] 109 mg/dL Normal <130 [facility] Comment on above: Order Comment: Speci men Type: BLOOD SPECIMENOrdering Facility: [facility] Address: [address] [place] [address] Result Comment: <130 mg/dL, Optimal 130-159 mg/dL, Near optimal/above optimal 160-189 mg/dL, Borderline high 190-219 mg/dL, High >219 mg/dL, Very high Secondary prevention optimal non HDL Cholesterol levels are recommended to be <100 mg/dL Performed By: #### 2 4323-8, 52254-1 ####[facility]CLIA [id number] [place] [address] [place] Cholesterol.total/C holesterol in HDL [Mass ratio] 2.31 {ratio} Normal <5.10 [facility] Comment on above: Order Comment: Speci men Type: BLOOD SPECIMENOrdering Facility: [facility] Address: [address] [id number] Performed By: #### 2 4323-8, 34505-8 ####[facility]CLIA [id number] [place] [address] [place] FASTING TIME 12 hrs Normal [facility] Comment on above: Order Comment: Speci men Type: BLOOD SPECIMENOrdering Facility: [facility] Address: [address] [place] [address] Performed By: #### 2 4323-8, 51493-6 ####[facility]CLIA [id number] [place] [address] [place] Triglyceride [Mass/Vol] 79 mg/dL Normal <150 [facility] Comment on above: Order Comment: Speci men Type: BLOOD SPECIMENOrdering Facility: [facility] Address: [address] [place] [address] Result Comment: <150 mg/dL, Normal 150-199 mg/dL, Borderline high 200-499 mg/dL, High >499 mg/dL, Very high Performed By: #### 2 4323-8, 62547-0 ####[facility]CL[facility] [id number] [place] [address] [place] CNOVon 11-26-2024 CNOV Office Visit (FAMPWS ) ALVARADO COHEN ([id number]) 1945 F Date Time Provider Department 11/26/24 1:20 PM [facility] During your visit today, we recorded [...] General (Family Medicine) Laurel Toure APRN.NIKKI as Claims Agent Right Of Way (Family Medicine) Hans Mccray APRN.NIKKI as Claims Agent Right Of Way (Family Medicine) Porfirio Mei MD - Vascular [...] 22.18 k (more content not included)... Normal [facility] MR/BMS.[place] 10-21-2024 MR/BMS.[facility] [address] [place] [address] OFFICE VISIT Date of Service: 10/21/24 MR#: [id number] Acct: [id number] Name: ALVARADO COHEN CALLI Rep #: [id number] : 1945 Provider: ERIC Post Age/Sex: 79/F Location: [facility] Status: Signed Intake Vital Signs 03/21/23 17:53 [...] Yes dise (more content not included)... Normal [facility] ACT Activated Clotting Timeo n 10-07-2024 ACTk CLOT TIME 204 sec High 74-137 [facility] Comment on above: Performed By: #### L 9100.0100 #### [facility] [address] [place], [address] Basic Metabolic Profile (BMP )on 10-07-2024 BUN/CRE 23.9 RATIO High 10-20 [facility] Comment on above: Performed By: #### L 100.0500, BTSPAT, L500.2500 #### [facility] [address] [place], [address] CA,Total 9.3 mg/dL Normal 8.5-10.1 [facility] Comment on above: Performed By: #### L 100.0500, BTSPAT, L500.2500 #### [facility] [address] [place], [address] Chloride [Moles/Vol] 106 mmol/L Normal 98-107 [facility] Comment on above: Performed By: #### L 100.0500, BTSPAT, L500.2500 #### [facility] [address] [place], [address] CO2 [Moles/Vol] 25.0 mmol/L Normal 21.0-32.0 [facility] Comment on above: Performed By: #### L 100.0500, BTSPAT, L500.2500 #### [facility] [address] [place], [address] Creatinine [Mass/Vol] 1.13 mg/dL High 0.55-1.02 [facility] Comment on above: Result Comment: The validity of the calculated GFR GFRAA in patients over 70 years has not been determined. Clinical correlation is essential. Performed By: #### L 100.0500, BTSPAT, L500.2500 #### [facility] [address] [place], [address] ECRCL 33.94 ml/min Normal [facility] Comment on above: Performed By: #### L 100.0500, BTSPAT, L500.2500 #### [facility] [address] [place], [address] EST GFR - AA 60 mL/min Normal >60 [facility] Comment on above: Result Comment: Afri can [place] GFR Calc Performed By: #### L 100.0500, BTSPAT, L500.2500 #### [facility] [address] [place], [address] GAP 5 Normal 5-15 [facility] Comment on above: Performed By: #### L 100.0500, BTSPAT, L500.2500 #### [facility] [address] [place], [address] GFR/1.73 sq M.predicted among non-blacks MDRD (S/P/Bld) [Vol rate/Area] 50 mL/min/{1.73_m2} Low >60 [facility] Comment on above: Result Comment: Non- GFR Calc Performed By: #### L 100.0500, BTSPAT, L500.2500 #### [facility] [address] [place], [address] Glucose [Mass/Vol] 104 mg/dL Normal 74-106 [facility] Comment on above: Result Comment: Fast ing Glucose result from 100 to 125 mg/dL suggests IMPAIRED HOMEOSTASIS per A.D.A. criteria. Performed By: #### L 100.0500, BTSPAT, L500.2500 #### [facility] [address] [place], [address] Potassium [Moles/Vol] 4.2 mmol/L Normal 3.5-5.1 [facility] Comment on above: Performed By: #### L 100.0500, BTSPAT, L500.2500 #### [facility] [address] [place], [address] Sodium [Moles/Vol] 136 mmol/L Normal 136-145 [facility] Comment on above: Performed By: #### L 100.0500, BTSPAT, L500.2500 #### [facility] [address] [place], [address] Urea nitrogen [Mass/Vol] 27 mg/dL High 7-18 [facility] Comment on above: Performed By: #### L 100.0500, BTSPAT, L500.2500 #### [facility] [address] [place], [address] CBC-Complete Blood Cnt No ffon 10-07-2024 Erythrocyte distribution width (RBC) [Ratio] 14.5 % Normal 11.6-14.6 [facility] Comment on above: Performed By: #### L 100.0500, BTSPAT, L500.2500 #### [facility] [address] [place], [address] Hematocrit (Bld) [Volume fraction] 35.6 % Low 37-47 [facility] Comment on above: Performed By: #### L 100.0500, BTSPAT, L500.2500 #### [facility] [address] [place], [address] Hemoglobin (Bld) [Mass/Vol] 11.8 g/dL Low 12.0-15.0 [facility] Comment on above: Performed By: #### L 100.0500, BTSPAT, L500.2500 #### [facility] [address] [place], [address] MCH (RBC) [Entitic mass] 29.7 pg Normal 27.0-32.0 [facility] Comment on above: Performed By: #### L 100.0500, BTSPAT, L500.2500 #### [facility] [address] [place], [address] MCHC (RBC) [Mass/Vol] 33.1 g/dL Normal 32-36 [facility] Comment on above: Performed By: #### L 100.0500, BTSPAT, L500.2500 #### [facility] [address] [place], [address] MCV (RBC) [Entitic vol] 89.7 fL Normal 81-99 [facility] Comment on above: Performed By: #### L 100.0500, BTSPAT, L500.2500 #### [facility] [address] [place], [address] Platelet mean volume (Bld) [Entitic vol] 9.0 fL Normal 6.2-12.0 [facility] Comment on above: Performed By: #### L 100.0500, BTSPAT, L500.2500 #### [facility] [address] [place], [address] Platelets (Bld) [#/Vol] 273 10*3/uL Normal 150-450 [facility] Comment on above: Performed By: #### L 100.0500, BTSPAT, L500.2500 #### [facility] [address] [place], [address] RBC (Bld) [#/Vol] 3.97 10*6/uL Low 4.2-5.4 [facility] Comment on above: Performed By: #### L 100.0500, BTSPAT, L500.2500 #### [facility] [address] [place], [address] RDW SD 47.9 fl High 35.1-43.9 [facility] Comment on above: Performed By: #### L 100.0500, BTSPAT, L500.2500 #### [facility] [address] [place], [address] WBC (Bld) [#/Vol] 11.5 10*3/uL High 4.4-11.0 [facility] Comment on above: Performed By: #### L 100.0500, BTSPAT, L500.2500 #### [facility] [address] [place], [address] Operative Reporton 4 Operative Report [facility] Department [address] [place] [address] Operative Report 10/07/24 1631 MR#: [id number] Acct: [id number] Name: ALVARADO COHEN Rep #: [id number] : 1945 79 From: Porfirio Mei MD PCP: Dr. Glenny Luque MD Status:[facility] Location: [facility] Operative Report (Standard) Operative Information [...] procedure site patient was taken to the [facility] where she was positioned prepped and draped [...] micropuncture sheath exchanged for a short 5 [place] sheath. Through the 5 [place] sheath we attempted to navigate into the [...] sheath were then exchanged for a 6 [place] Halo sheath which was advanced over the wire and positioned in the visceral segment of the aorta. Using a multitude of wi (more content not included)... Normal [facility] Type AND Screen - PAT ONLYon 10-07-2024 ABO and Rh group Nom (Bld) Blood group A Rh(D) positive Normal [facility] Comment on above: Order Comment: No N N S AORTAGRAM Performed By: #### L 100.0500, BTSPAT, L500.2500 #### [facility] [address] [place], [place], [id number] [facility] SCREENINGon 09-25-2024 [facility] SCREENING * * *Final Report* * * DATE OF EXAM: Sep 25 2024 1:07PM [id number] - [facility] SCREENING / PROCEDURE REASON: Visit for screening mammogram * * * * Physician Interpretation * * * * RESULT: [address] [address] [place] [address] #[id number] - [facility] SCREENING HISTORY: Patient is 79 years old [...] Umu Cade M.D. Electronically signed on: 09/28/2024 City Director: MIHIR Transcribe Date/Time: Sep 25 2024 12:52P Dictated by: UMU CADE MD This examination was interpreted and the report reviewed and electronically signed by: UMU CADE MD on Sep 28 2024 4:50PM EST [id number] Normal [facility] MR/BMS.BVSon 08-27-2024 MR[facility]BMS.[facility] [address] [place] [address] OFFICE VISIT Date of Service: 08/27/24 MR#: [id number] Acct: [id number] Name: ALVARADO COHEN Rep #: [id number] : 1945 Provider: Dr. Porfirio Mei MD Age/Sex: 79/F Location: [facility] Status: Signed Intake Vital Signs 03/21/23 17:53 [...] and (more content not included)... [facility] Office Visit (UCW[facility] ) ALVARADO COHEN ([id number]) 1945 F Date Time Provider Department 07/24/24 11:00 AM ALLIE LYNCH [facility] During your visit today, we recorded the [...] provided by the patient. No speech language pathologist prn was used. Laceration Review of Systems Constitutional: [...] plan. Both wounds were redressed. Allie Lynch APRN.[employer]OBI[employer] COUNSELOR Allergies As of Date: 07/24/2024 Noted Allergy [...] As Of (more content not included)... Normal [facility] Renal Artery Duplex Ultrasou ndon 05-20-2024 Renal Artery Duplex Ultrasound [facility] [address] [place] [address] Renal Artery Duplex Ultrasound 05/20/24 0807 MR#: [id number] Acct: [id number] Name: ALVARADO COHEN Rep #: [id number] : 1945 78 From: Porfirio Mei MD Attending Dr: Dr. Nora Govea, DO Status: REG CLI Ordering Dr: Nora Govea DO Date: 05/20/24 Location: [facility] Sex: F C Admitted: Reason For Study: [...] Date Dictated: 05/20/24 08 Date Transcribed: 05/21/241707 City Director: Signed [facility] SCREENING 08-08-2023 [facility] Vital Signs Date Time Vital Sign Value Performing Clinician Facility 03-22-2025 15:20-0400 Diastolic blood pressure 68 mm[Hg] Glenny Luque MD Work Phone: [facility] 03-22-2025 15:20-0400 Systolic blood pressure 164 mm[Hg] Glenny Luque MD Work Phone: [facility] 03-22-2025 15:16-0400 Body mass index (BMI) [Ratio] 21.9 kg/m2 Glenny Luque MD Work Phone: [facility] 03-22-2025 15:16-0400 Body weight 54.3 kg Glenny Luque MD Work Phone: [facility] 03-22-2025 15:16-0400 Heart rate 62 /min Glenny Luque MD Work Phone: [facility] 03-22-2025 15:16-0400 Respiratory rate 18 /min Glneny Luque MD Work Phone: [facility] 11-26-2024 13:33-0500 Diastolic blood pressure 64 mm[Hg] Glenny Luque MD Work Phone: [facility] 11-26-2024 13:33-0500 Systolic blood pressure 166 mm[Hg] Glenny Luque MD Work Phone: [facility] 11-26-2024 13:30-0500 Body height 157.5 cm Glenny Luque MD Work Phone: [facility] 11-26-2024 13:30-0500 Body mass index (BMI) [Ratio] 22.18 kg/m2 Glenny Luque MD Work Phone: [facility] 11-26-2024 13:30-0500 Body weight 55 kg Glenny Luque MD Work Phone: [facility] 11-26-2024 13:30-0500 Heart rate 70 /min Glenny Luque MD Work Phone: [facility] 11-26-2024 13:30-0500 Respiratory rate 18 /min Glenny Luque MD Work Phone: [facility] 07-24-2024 11:00-0400 Body mass index (BMI) [Ratio] 21.48 kg/m2 Allie Lynch APRN.AUTOMOBI[employer] TRAVEL [employer] COUNSELOR Work Phone: [facility] 07-24-2024 11:00-0400 Body temperature 96.4 [degF] Allie Lynch APRN.AUTOMOBI[employer] TRAVEL CLUB COUNSELOR Work Phone: [facility] 07-24-2024 11:00-0400 Body weight 55 kg Allie Lynch APRN.AUTOMOBI[employer] TRAVEL CLUB COUNSELOR Work Phone: [facility] 07-24-2024 11:00-0400 Diastolic blood pressure 64 mm[Hg] Allie Lynch APRN.AUTOMOBI[employer] TRAVEL CLUB COUNSELOR Work Phone: [facility] Comment on above: BP checked x 2 210/7 3 07-24-2024 11:00-0400 Heart rate 69 /min Allie Lynch APRN.AUTOMOBI[employer]EL [employer]UB COUNSELOR Work Phone: [facility] 07-24-2024 11:00-0400 Respiratory rate 18 /min Allie Lynch APRN.AUTOMOBI[employer] TRA[employer]EL CLUB COUNSELOR Work Phone: [facility] 07-24-2024 11:00-0400 SaO2% (BldA) [Mass fraction] 99 % Allie Lynch APRN.AUTOMOBI[employer] TRAVEL CLUB COUNSELOR Work Phone: [facility] 07-24-2024 11:00-0400 Systolic blood pressure 210 mm[Hg] Allie Lynch APRN.AUTOMOBI[employer] TRA[employer]EL CLUB COUNSELOR Work Phone: [facility] Comment on above: BP checked x 2 210/7 3 03-20-2024 10:10-0400 Diastolic blood pressure 67 mm[Hg] Hans Mahendra ELECTRIC MOTOR REBUILDER.AUTOMOBILE TRAVEL CLUB COUNSELOR Work Phone: [facility] Comment on above: BP CHASITY AVERAGE 03-20-2024 10:10-0400 Heart rate 63 /min Hans Mahendra ELECTRIC MOTOR REBUILDER.AUTOMOBILE TRAVEL CLUB COUNSELOR Work Phone: [facility] 03-20-2024 10:10-0400 Systolic blood pressure 200 mm[Hg] Hans Mahendra ELECTRIC MOTOR REBUILDER.AUTOMOBILE TRAVEL CLUB COUNSELOR Work Phone: [facility] Comment on above: BP CHASITY AVERAGE 03-20-2024 09:52-0400 Body mass index (BMI) [Ratio] 21.86 kg/m2 Hans Mahendra ELECTRIC MOTOR REBUILDER.AUTOMOBILE TRAVEL CLUB COUNSELOR Work Phone: [facility] 03-20-2024 09:52-0400 Body weight 55.97 kg Hans Mahendra ELECTRIC MOTOR REBUILDER.AUTOMOBILE TRAVEL CLUB COUNSELOR Work Phone: [facility] 03-20-2024 09:52-0400 Respiratory rate 16 /min Hans Mahendra ELECTRIC MOTOR REBUILDER.AUTOMOBILE TRAVEL CLUB COUNSELOR Work Phone: [facility] 03-20-2024 09:52-0400 SaO2% (BldA) [Mass fraction] 99 % Hans Mahendra ELECTRIC MOTOR REBUILDER.AUTOMOBILE TRAVEL CLUB COUNSELOR Work Phone: [facility] 02-17-2024 11:30-0400 Diastolic blood pressure 67 mm[Hg] Hans Mahendra ELECTRIC MOTOR REBUILDER.AUTOMOBILE TRAVEL CLUB COUNSELOR Work Phone: [facility] 02-17-2024 11:30-0400 Heart rate 71 /min Hans Mahendra ELECTRIC MOTOR REBUILDER.AUTOMOBILE TRAVEL CLUB COUNSELOR Work Phone: [facility] 02-17-2024 11:30-0400 Systolic blood pressure 188 mm[Hg] Hans Mahendra ELECTRIC MOTOR REBUILDER.AUTOMOBILE TRAVEL CLUB COUNSELOR Work Phone: [facility] 02-17-2024 11:23-0400 Body weight 56.16 kg Hans Mahendra ELECTRIC MOTOR REBUILDER.AUTOMOBILE TRAVEL CLUB COUNSELOR Work Phone: [facility] 02-17-2024 11:23-0400 Respiratory rate 16 /min Hans Mahendra ELECTRIC MOTOR REBUILDER.AUTOMOBILE TRAVEL CLUB COUNSELOR Work Phone: [facility] 02-17-2024 11:23-0400 SaO2% (BldA) [Mass fraction] 99 % Hans Mccray ELECTRIC MOTOR REBUILDER.AUTOMOBILE TRAVEL CLUB COUNSELOR Work Phone: [facility] 06-12-2023 12:30-0400 Body weight 55.34 kg Laurel Tannhof ELECTRIC MOTOR REBUILDER.AUTOMOBILE TRAVEL CLUB COUNSELOR Work Phone: [facility] 06-12-2023 12:30-0400 Diastolic blood pressure 76 mm[Hg] Laurel Tannhof ELECTRIC MOTOR REBUILDER.AUTOMOBILE TRAVEL CLUB COUNSELOR Work Phone: [facility] 06-12-2023 12:30-0400 Heart rate 75 /min Laurel Tannhof ELECTRIC MOTOR REBUILDER.AUTOMOBILE TRAVEL CLUB COUNSELOR Work Phone: [facility] 06-12-2023 12:30-0400 Respiratory rate 16 /min Laurel Tannhof ELECTRIC MOTOR REBUILDER.AUTOMOBILE TRAVEL CLUB COUNSELOR Work Phone: [facility] 06-12-2023 12:30-0400 SaO2% (BldA) [Mass fraction] 98 % Laurel Tannhof ELECTRIC MOTOR REBUILDER.AUTOMOBILE TRAVEL CLUB COUNSELOR Work Phone: [facility] 06-12-2023 12:30-0400 Systolic blood pressure 180 mm[Hg] Laurel Tannhof ELECTRIC MOTOR REBUILDER.AUTOMOBILE TRAVEL CLUB COUNSELOR Work Phone: [facility] 05-08-2023 12:50-0400 Body weight 55.79 kg Laurel Tannhof ELECTRIC MOTOR REBUILDER.AUTOMOBILE TRAVEL CLUB COUNSELOR Work Phone: [facility] 05-08-2023 12:50-0400 Diastolic blood pressure 80 mm[Hg] Laurel Tannhof ELECTRIC MOTOR REBUILDER.AUTOMOBILE TRAVEL CLUB COUNSELOR Work Phone: [facility] 05-08-2023 12:50-0400 Heart rate 58 /min Laurel Tannhof ELECTRIC MOTOR REBUILDER.AUTOMOBILE TRAVEL CLUB COUNSELOR Work Phone: [facility] 05-08-2023 12:50-0400 Respiratory rate 16 /min Laurel Tannhof ELECTRIC MOTOR REBUILDER.AUTOMOBILE TRAVEL CLUB COUNSELOR Work Phone: [facility] 05-08-2023 12:50-0400 SaO2% (BldA) [Mass fraction] 97 % Laurel Tannhof ELECTRIC MOTOR REBUILDER.AUTOMOBILE TRAVEL CLUB COUNSELOR Work Phone: [facility] 05-08-2023 12:50-0400 Systolic blood pressure 160 mm[Hg] Laurel Tannhof ELECTRIC MOTOR REBUILDER.AUTOMOBILE TRAVEL CLUB COUNSELOR Work Phone: [facility] 04-08-2023 13:28-0400 Body weight 55.34 kg Laurel Tannhof ELECTRIC MOTOR REBUILDER.AUTOMOBILE TRAVEL CLUB COUNSELOR Work Phone: [facility] 04-08-2023 13:28-0400 Diastolic blood pressure 60 mm[Hg] Laurel Tannhof ELECTRIC MOTOR REBUILDER.AUTOMOBILE TRAVEL CLUB COUNSELOR Work Phone: [facility] 04-08-2023 13:28-0400 Heart rate 77 /min Laurel Tannhof ELECTRIC MOTOR REBUILDER.AUTOMOBILE TRAVEL CLUB COUNSELOR Work Phone: [facility] 04-08-2023 13:28-0400 Respiratory rate 6 /min Laurel Tannhof ELECTRIC MOTOR REBUILDER.AUTOMOBILE TRAVEL CLUB COUNSELOR Work Phone: [facility] 04-08-2023 13:28-0400 SaO2% (BldA) [Mass fraction] 97 % Laurel Tannhof ELECTRIC MOTOR REBUILDER.AUTOMOBILE TRAVEL CLUB COUNSELOR Work Phone: [facility] 04-08-2023 13:28-0400 Systolic blood pressure 140 mm[Hg] Laurel Tannhof ELECTRIC MOTOR REBUILDER.AUTOMOBILE TRAVEL CLUB COUNSELOR Work Phone: [facility] 08-27-2022 10:05-0400 Body weight 54.88 kg Laurel Tannhof ELECTRIC MOTOR REBUILDER.AUTOMOBILE TRAVEL CLUB COUNSELOR Work Phone: [facility] 08-27-2022 10:05-0400 Diastolic blood pressure 80 mm[Hg] Laurel Tannhof ELECTRIC MOTOR REBUILDER.AUTOMOBILE TRAVEL CLUB COUNSELOR Work Phone: [facility] 08-27-2022 10:05-0400 Heart rate 83 /min Laurel Tannhof ELECTRIC MOTOR REBUILDER.AUTOMOBILE TRAVEL CLUB COUNSELOR Work Phone: [facility] 08-27-2022 10:05-0400 Respiratory rate 16 /min Laurel Tannhof ELECTRIC MOTOR REBUILDER.AUTOMOBILE TRAVEL CLUB COUNSELOR Work Phone: [facility] 08-27-2022 10:05-0400 SaO2% (BldA) [Mass fraction] 99 % Laurel Tejal ELECTRIC MOTOR REBUILDER.AUTOMOBILE TRAVEL CLUB COUNSELOR Work Phone: [facility] 08-27-2022 10:05-0400 Systolic blood pressure 160 mm[Hg] Laurel Toure ELECTRIC MOTOR REBUILDER.AUTOMOBILE TRAVEL CLUB COUNSELOR Work Phone: [facility] Encounters Encounter Date Encounter Type Care Provider Facility Start: 04-22-2025 End: 04-28-2025 Telephone encounter Glenny Luque MD Work Phone: [facility] Comment on above: medical consultation form ([facility]) Start: 04-07-2025 End: 04-07-2025 ambulatory Faith Larkin [facility] Start: 04-07-2025 End: 04-07-2025 Patient encounter procedure Faith Larkin MA [facility] Comment on above: Population Health Na vigation Outreach ([facility] Start: 04-01-2025 End: 04-01-2025 ambulatory GLENNY LUQUE Facility:[facility] Start: 03-22-2025 End: 03-22-2025 Office outpatient visit 25 minutes Glenny Luque MD Work Phone: [facility] Comment on above: Essential hypertensi on, benign (Primary Dx); Resistant hypertension; Uncontrolled hypertension; Osteoporosis, unspecified osteoporosis type, unspecified pathological fracture presence; Claudication; Tobacco use disorder Start: 03-22-2025 End: 03-22-2025 ambulatory GLENNY LUQUE Facility:[facility] Start: 03-03-2025 End: 03-03-2025 ambulatory Faith Larkin MA [facility] Start: 03-03-2025 End: 03-03-2025 Patient encounter procedure Faith Larkin MA [facility] Comment on above: Population Health Na vigation Outreach ([facility] Start: 02-22-2025 End: 02-22-2025 ambulatory GLENNY LUQUE Facility:[facility] Start: 01-25-2025 End: 01-25-2025 Refill Glenny Luque MD Work Phone: [facility] Comment on above: Refill Request Start: 01-04-2025 End: 03-06-2025 Follow-up encounter Glenny Luque MD Work Phone: Family [facility] [place] Start: 01-01-2025 End: 01-01-2025 ambulatory GLENNY LUQUE Facility:[facility] Start: 01-01-2025 End: 01-01-2025 Subsequent hospital visit by physician Bone Density [facility] Work Phone: Radiology Comment on above: Age-related osteopor osis without current pathological fracture [M81.0] Start: 12-09-2024 End: 12-09-2024 ambulatory GLENNY LUQUE Facility:[facility] Start: 12-09-2024 Patient encounter procedure GLENNY LUQUE [facility] Start: 11-26-2024 End: 11-26-2024 ambulatory GLENNY LUQUE Facility:[facility] Start: 11-26-2024 End: 11-26-2024 Patient encounter procedure Glenny Luque MD Work Phone: [facility] [place] Comment on above: Encounter for Medica [...] Start: 10-21-2024 End: 10-21-2024 ambulatory Carissa Ordonez Facility:[facility] Start: 10-07-2024 End: 10-07-2024 ambulatory Porfirio Mei Facility:[facility] Start: 09-25-2024 End: 09-25-2024 ambulatory GLENNY LUQUE Facility:[facility] Start: 09-25-2024 End: 09-25-2024 Subsequent hospital visit by physician Screen Mammo [facility] Mammogram Comment on above: Visit for screening mammogram [Z12.31] Start: 09-18-2024 End: 09-18-2024 ambulatory Jelani Henderson [facility] Start: 09-18-2024 End: 09-18-2024 Patient encounter procedure Jelani Ozuna [facility] Comment on above: Population Health Na vigation Outreach ([facility] [employer] list 2023/) Start: 08-27-2024 End: 08-27-2024 ambulatory Glenny Luque Facility:[facility] Start: 07-24-2024 End: 07-24-2024 ambulatory GLENNY LUQUE Facility:[facility] Start: 07-24-2024 End: 07-24-2024 Patient encounter procedure Allie Lynch APRN.AUTOMOBILE TRAVEL CLUB COUNSELOR Work Phone: [facility] Comment on above: Open wound (Primary Dx) Start: 05-20-2024 ambulatory [facility] Facility: [facility] Start: 05-20-2024 End: 05-20-2024 ambulatory [facility] Facility:[facility] Start: 03-26-2024 Telephone encounter Hasn youngblood APRN.AUTOMOBILE TRAVEL CLUB COUNSELOR Work Phone: [facility] Comment on above: fax referral to Dr Alexander Govea Start: 03-23-2024 Refill Hans GILLETTE RN.AUTOMOBILE TRAVEL CLUB COUNSELOR Work Phone: [facility] Comment on above: Refill Request Medication Problem Start: 03-20-2024 End: 03-20-2024 Office outpatient visit 15 minutes Hans Mccray APRN.AUTOMOBILE TRAVEL CLUB COUNSELOR Work Phone: [facility] Comment on above: Essential hypertensi on, benign (Primary Dx); Uncontrolled hypertension Start: 03-10-2024 ambulatory Glenny bunch MD Work Phone: [facility] [place] Comment on above: Ultrasound results Start: 03-10-2024 E-mail encounter fro m caregiver [facility] Start: 03-10-2024 Telephone encounter Hans youngblood APRN.AUTOMOBILE TRAVEL CLUB COUNSELOR [facility] Comment on above: Results Start: 03-09-2024 Refill Hans GILLETTE RN.AUTOMOBILE TRAVEL CLUB COUNSELOR Work Phone: [facility] [place] Comment on above: Refill Request Opened In Error Start: 03-06-2024 End: 03-06-2024 Subsequent hospital visit by physician Us [facility] Mob 2 Work Phone: Radiology Comment on above: Essential hypertensi on, benign [I10] Start: 02-18-2024 Telephone encounter Hans youngblood APRN.AUTOMOBILE TRAVEL CLUB COUNSELOR Work Phone: [facility] [place] Comment on above: Results Start: 02-17-2024 End: 02-17-2024 Office outpatient visit 15 minutes Hans Mccray APRN.AUTOMOBILE TRAVEL CLUB COUNSELOR Work Phone: [facility] [place] Comment on above: Essential hypertensi on, benign (Primary Dx); Resistant hypertension Start: 02-06-2024 Refill Glenny bunch MD Work Phone: [facility] [place] Comment on above: Refill Request Start: 01-11-2024 Refill Hans GILLETTE RN.AUTOMOBILE TRAVEL CLUB COUNSELOR Work Phone: [facility] [place] Comment on above: Refill Request Start: 09-02-2023 Refill Laurel Toure APRN.AUTOMOBILE TRAVEL CLUB COUNSELOR Work Phone: [facility] [place] Comment on above: Med Change Request Start: 08-08-2023 Documentation procedure Mammog kelechi Coordinator [facility] Start: 08-08-2023 Letter encounter Mammography Coordinator [facility] Department Start: 08-08-2023 End: 08-08-2023 Subsequent [facility] visit [facility] Comment on above: Visit for screening mammogram [Z12.31] Start: 07-19-2023 Orders Only Glenny bunch MD Work Phone: [address] [place] [address] Comment on above: Visit for screening mammogram (Primary Dx) Start: 07-11-2023 Refill Laurel Toure APRN.AUTOMOBILE TRAVEL CLUB COUNSELOR Work Phone: [facility] [place] Comment on above: Refill Request Start: 07-09-2023 Refill Glenny bunch MD Work Phone: [facility] [place] Comment on above: Refill Request Start: 06-12-2023 ambulatory Laurel Toure ELECTRIC MOTOR REBUILDER.NIKKI Work Phone: [facility] [place] Comment on above: BP post visit 06/12/23 Start: 06-12-2023 End: 06-12-2023 Patient encounter procedure Laurel Toure ELECTRIC MOTOR REBUILDER.AUTOMOBILE TRAVEL CLUB COUNSELOR Work Phone: [facility] [place] Comment on above: Uncontrolled hyperte nsion (Primary Dx) Start: 05-13-2023 Telephone encounter Laurel camp ELECTRIC MOTOR REBUILDER.AUTOMOBILE TRAVEL CLUB COUNSELOR Work Phone: [facility] [place] Comment on above: Consult Start: 05-08-2023 End: 05-08-2023 Patient encounter procedure Laurel Toure ELECTRIC MOTOR REBUILDER.AUTOMOBILE TRAVEL CLUB COUNSELOR Work Phone: [facility] [place] Comment on above: Uncontrolled hyperte nsion (Primary Dx) Start: 04-08-2023 End: 04-08-2023 Patient encounter procedure Laurel Toure ELECTRIC MOTOR REBUILDER.NIKKI Work Phone: [facility] [place] Comment on above: Essential hypertensi on, benign (Primary Dx) Start: 08-27-2022 End: 08-27-2022 Patient encounter procedure Laurel Toure ELECTRIC MOTOR REBUILDER.NIKKI Work Phone: [facility] [place] Comment on above: Essential hypertensi on, benign (Primary Dx); Hyperlipidemia with target LDL less than 100; Tobacco abuse Start: 06-14-2022 ambulatory Indio GILLETTE RN.RODRIGUEZ JORDAN Work Phone: Neurology Comment on above: Results Start: 06-14-2022 E-mail encounter fro m caregiver Indio Robledo APRN.NIKKI, RODRIGUEZ Work Phone: [facility] Start: 06-12-2022 Documentation procedure Mammog kelechi [facility] Start: 06-12-2022 Letter encounter Mammography Coordinator [facility] Department Start: 06-11-2022 End: 06-11-2022 Subsequent hospital visit by physician Screen Mammo [facility] Mammogram Comment on above: [...] Adult depression scr eening assessment Indio Robledo ELECTRIC MOTOR REBUILDER.AUTOMOBILE TRAVEL CLUB COUNSELOR, DNP Work Phone: Start: 06-10-2017 Colonoscopy Indio brown APRN.NIKKI, RODRIGUEZ Work Phone: Plan of Treatment Date Care Activity Detail Author Start: 07-16-2028 Urine microalbumin profile [facility] Start: 04-01-2028 Diabetes Screening Diabetes Screenwi g [facility] Start: 02-23-2028 [facility] Start: 12-09-2027 [facility] Start: 06-10-2027 Colonoscopy COLONOSCOPY [facility] Start: 06-10-2027 COLORECTAL CANCER SCREENING COLORECTAL CANCER SCREENING [facility] Start: 02-16-2027 Diabetes Screening Diabetes Screenin g [facility] Start: 01-01-2027 Screening for osteoporosis Bone Density Screening [facility] Start: 07-06-2026 LIPID SCREEN LIPID SCREEN [facility] Start: 03-22-2026 Annual PCP Team Training Generalist kimberlee Disease Visit Annual PCP Team Chronic Disease Visit [facility] Start: 03-22-2026 Covid-19 Vaccine ( season) Covid-19 Vaccine () [facility] Comment on above: Postponed from 02/17 (Declined at this time) Start: 11-26-2025 Annual PCP Team Training Generalist kimberlee Disease Visit Annual PCP Team Chronic Disease Visit [facility] Start: 11-26-2025 Medicare Annual Wellness Visit Medicare Annual Wellness Visit [facility] Start: 10-19-2025 DIABETES SCREEN DIABETES SCREEN [facility] Start: 10-19-2025 Diabetes Screening Diabetes Screenin g [facility] Start: 03-22-2025 End: 03-22-2025 Patient encounter procedure 03/22/2025 3:20 PM EDT Office Visit [facility] [place] [address] [place] [address] Glenny Luque MD [address] [facility] [place] [address] follow up Family [facility] Comment on above: follow up Start: 03-20-2025 Annual PCP Team Training Generalist kimberlee Disease Visit Annual PCP Team Chronic Disease Visit [facility] Start: 03-01-2025 End: 03-01-2025 Patient encounter procedure [facility] Debbie [place] Comment on above: 3 mo f/u HTN Start: 02-17-2025 Covid-19 Vaccine () Covid-19 Vaccine () [facility] Start: 02-16-2025 Annual PCP Team Training Generalist kimberlee Disease Visit Annual PCP Team Chronic Disease Visit [facility] Start: 01-01-2025 End: 01-01-2025 Patient encounter procedure 01/01/2025 12:30 PM EST Appointment Radiology [address] [place] [id number] Age-related osteoporosis without current pathological fracture [M81.0] Radiology Comment on above: Age-related osteopor osis without current pathological fracture [M81.0] Start: 12-14-2024 End: 12-14-2024 Patient encounter procedure 12/14/2024 2:30 PM EST Office Visit Vascular Surgery [address] [address] Uncontrolled hypertension [I10]; Leg fatigue [R29.898]; Claudication (HCC) [I73.9] Vascular Surgery Comment on above: Uncontrolled hyperte nsion [I10]; Leg fatigue [R29.898]; Claudication (HCC) [I73.9] Start: 11-26-2024 End: 02-25-2025 CBC W Auto Differential panel - Blood COMPLETE BLOOD COUNT AND DIFFERENTIAL Lab Routine Encounter for Medicare annual wellness exam Uncontrolled hypertension Expected: 11/26/2024, Expires: 02/25/2025 [facility] Comment on above: Expected: 11/26/2024 , Expires: 02/25/2025 Start: 11-26-2024 End: 02-25-2025 Comprehensive metabolic 2000 panel - Serum or Plasma COMPREHENSIVE METABOLIC PANEL Lab Routine Encounter for Medicare annual wellness exam Uncontrolled hypertension Hyperlipidemia with target LDL less than 100 Expected: 11/26/2024, Expires: 02/25/2025 [facility] Comment on above: Expected: 11/26/2024 , Expires: 02/25/2025 Start: 11-26-2024 End: 02-25-2025 Lipid 1996 panel - Serum or Plasma LIPID PANEL BASIC Lab Routine Encounter for Medicare annual wellness exam Uncontrolled hypertension Hyperlipidemia with target LDL less than 100 Expected: 11/26/2024, Expires: 02/25/2025 [facility] Comment on above: Expected: 11/26/2024 , Expires: 02/25/2025 Start: 11-09-2024 End: 11-09-2024 Patient encounter procedure 11/09/2024 12:00 PM EST Office Visit Family [facility] [address] [place] [id number] Glenny Luque MD [address] [facility] [place], [place] [id number] AWV is PRIMARY/Follow up [facility] [place] Comment on above: AWV is PRIMARY/Follo w up Start: 11-04-2024 Advance Directive Discussion Advance Directive Discussion [facility] Start: 09-25-2024 End: 09-25-2024 Patient encounter procedure 09/25/2024 12:50 PM EST Appointment Mammogram [address] [place], [place] [address] encounter for routine screening MAMMOGRAM*pended order Glenny Luque MD Mammogram Comment on above: encounter for routin e screening MAMMOGRAM*pended order Glenny Luque MD Start: 07-06-2024 DIABETES SCREEN DIABETES SCREEN [facility] Start: 07-05-2024 Covid-19 Vaccine ( season) Covid-19 Vaccine () [facility] Start: 07-05-2024 Influenza vaccination Influenza Vacc ine (#1) [facility] Start: 06-22-2024 End: 06-22-2024 Patient encounter procedure 06/22/2024 2:40 PM EDT Office Visit Family [facility] [address] [place], [place] [id number] Glenny Luque MD [address] [place] [address] 3 Month F/U Family [facility] Comment on above: 3 Month F/U Start: 06-12-2024 ANNUAL PCP TEAM SENIOR C SOFTWARE ENGINEER KIMBERLEE DISEASE VISIT ANNUAL PCP TEAM CHRONIC DISEASE VISIT [facility] Start: 05-08-2024 ANNUAL PCP TEAM SENIOR C SOFTWARE ENGINEER KIMBERLEE DISEASE VISIT ANNUAL PCP TEAM CHRONIC DISEASE VISIT [facility] Start: 04-08-2024 ANNUAL PCP TEAM SENIOR C SOFTWARE ENGINEER KIMBERLEE DISEASE VISIT ANNUAL PCP TEAM CHRONIC DISEASE VISIT [facility] Start: 03-20-2024 End: 03-20-2024 Patient encounter procedure 03/20/2024 10:00 AM EDT Office Visit [facility] [place] [address] [place] [address] Hans Mccray APRN.AUTOMOBILE TRAVEL CLUB COUNSELOR [address] [facility] [place] [address] BP follow up [facility] Debbie [place] Comment on above: BP follow up Start: 02-17-2024 End: 05-18-2024 ALDOSTERONE/DIRECT RENIN RATIO [facility] Work Phone: Comment on above: Expected: 02/17/2024 , Expires: 05/18/2024 Start: 02-17-2024 End: 05-18-2024 Basic metabolic 2000 panel - Serum or Plasma [facility] Work Phone: Comment on above: Expected: 02/17/2024 (Approximate), Expires: 05/18/2024 Start: 12-10-2023 Covid-19 Vaccine () Covid-19 Vaccine () [facility] Start: 11-04-2023 Advance Directive Discussion Advance Directive Discussion [facility] Start: 11-04-2023 Behavioral Health Screening Behavioral Health Screening [facility] Start: 11-04-2023 Depression Assessment Depression Ass essment [facility] Start: 08-27-2023 ANNUAL PCP TEAM SENIOR C SOFTWARE ENGINEER KIMBERLEE DISEASE VISIT ANNUAL PCP TEAM CHRONIC DISEASE VISIT [facility] Start: 07-05-2023 Covid-19 Vaccine () Covid-19 Vaccine () [facility] Start: 07-05-2023 Influenza vaccination [facility] Start: 12-14-2022 COVID-19 VACCINE (7 - Moderna series) COVID-19 VACCINE (7 - Moderna series) [facility] Start: 11-04-2022 ADVANCE DIRECTIVE DISCUSSION ADVANCE DIRECTIVE DISCUSSION [facility] Start: 08-27-2022 End: 10-27-2022 Comprehensive metabolic 2000 panel - Serum or Plasma COMP METABOLIC PANEL Lab Routine Essential hypertension, benign Expected: 08/27/2022, Expires: 10/27/2022 [facility] Work Phone: Comment on above: Expected: 08/27/2022 , Expires: 10/27/2022 Start: 08-27-2022 End: 10-27-2022 Lipid 1996 panel - Serum or Plasma LIPID PANEL BASIC Lab Routine Hyperlipidemia with target LDL less than 100 Expected: 08/27/2022, Expires: 10/27/2022 [facility] Work Phone: Comment on above: Expected: 08/27/2022 , Expires: 10/27/2022 Start: 07-05-2022 Influenza vaccination INFLUENZA (#1) [facility] Start: 06-26-2022 ANNUAL PCP TEAM SENIOR C SOFTWARE ENGINEER KIMBERLEE DISEASE VISIT ANNUAL PCP TEAM CHRONIC DISEASE VISIT [facility] Start: 06-26-2022 BP CONTROLLED (<130/80) BP CONTROLLE D (<130/80) [facility] Start: 06-26-2022 Influenza vaccination LUNG CANCER [facility] Comment on above: Postponed from 06/20 (Declined at this time) Start: 06-21-2022 Adult depression screening assessment DEPRESSION SCREENING [facility] Start: 11-04-2021 ADVANCE DIRECTIVE DISCUSSION ADVANCE DIRECTIVE DISCUSSION [facility] Start: 04-09-2018 Screening for osteoporosis Bone Density Screening [facility] Start: 2006 RSV Vaccine (1 - 1-d ose 60+ series) RSV Vaccine (1 - 1-dose 60+ series) [facility] Start: 1996 Influenza vaccination LUNG CANCER [facility] Start: 1996 Screening for malign ant neoplasm of lung Lung Cancer Screening [facility] Start: 1991 COLOGUARD (FIT-DNA) COLOGUARD (FIT-D NA) [facility] Start: [address] [facility]: 1991 FECAL OCCULT BLOOD FECAL OCCULT BLOO D [facility] Start: 1991 SIGMOIDOSCOPY [facility] Start: 1964 Anxiety Screening Anxiety Screening [facility] Start: 1964 Depression Screening Depression Scre ening [facility] End: 12-26-2025 BD DXA TRABECULAR BONE SCORE (TBS) BD DXA TRABECULAR BONE SCORE (TBS) Radiology Routine Age-related osteoporosis without current pathological fracture 1 Occurrences starting 11/26/2024 until 12/26/2025 [facility] Comment on above: 1 Occurrences starti ng 11/26/2024 until 12/26/2025 BD DXA TRABECULAR JOSE NE SCORE (TBS) BD DXA TRABECULAR BONE SCORE (TBS) Radiology Routine Age-related osteoporosis without current pathological fracture 01/01/2025 12:47 PM EST [facility] End: 12-26-2025 DXA Skeletal system.axial Views for bone density DXA-AXIAL SKELETON Radiology Routine Age-related osteoporosis without current pathological fracture 1 Occurrences starting 11/26/2024 until 12/26/2025 [facility] Comment on above: 1 Occurrences starti ng 11/26/2024 until 12/26/2025 DXA Skeletal system.axial Views for bone density DXA-AXIAL SKELETON Radiology Routine Age-related osteoporosis without current pathological fracture 01/01/2025 12:47 PM EST [facility] Work Phone: JOSEFA SCREENING JOSEFA SCREENING Ra diology Routine Visit for screening mammogram Ordered: 07/21/2023 [facility] Work Phone: Comment on above: Ordered: 07/21/2023 MG Breast Screening JOSEFA SCREENIN G Radiology Routine Visit for screening mammogram 09/25/2024 1:08 PM EST [facility] Work Phone: Screening mammograph y bi 2-view breast inc cad [facility] Work Phone: Comment on above: Ordered: 06/08/2022 End: 03-18-2025 US Kidney - bilateral and Urinary bladder US KIDNEY/BLADDER Radiology Routine Essential hypertension, benign Resistant hypertension 1 Occurrences starting 02/17/2024 until 03/18/2025 [facility] Work Phone: Comment on above: 1 Occurrences starti ng 02/17/2024 until 03/18/2025 US Kidney - bilatera l and Urinary bladder US KIDNEY/BLADDER Radiology Routine Essential hypertension, benign Resistant hypertension 03/06/2024 11:35 AM EDT [facility] Work Phone: End: 11-26-2025 US.doppler Extremity arteries - bilateral for physiologic artery study [facility]VR [facility]K [facility] Vascular Lab Routine Uncontrolled hypertension Leg fatigue Claudication (HCC) 1 Occurrences starting 11/26/2024 until 11/26/2025 [facility] Work Phone: Comment on above: 1 Occurrences starti ng 11/26/2024 until 11/26/2025 [facility] Immunizations Immunization Date Immunization Notes Care Provider Jose Martin bullock 08-19-2024 COVID-19 vaccine, ag e 12+ yr (PFIZER-BIONTECH COMIRNATY) Jelani Oz[facility] 08-19-2024 influenza virus vacc ine, unspecified formulation [facility]23 respiratory syncytia l virus (RSV) vaccine, bivalent (ABRYSVO) Laurel Toure ELECTRIC MOTOR REBUILDER.AUTOMOBILE TRAVEL CLUB COUNSELOR Work Phone: [facility] 08-13-2023 influenza, high dose seasonal, preservative-free Laurel Toure ELECTRIC MOTOR REBUILDER.AUTOMOBILE TRAVEL CLUB COUNSELOR Work Phone: [facility] 08-13-2023 influenza virus vacc ine, unspecified formulation Allie Lynch ELECTRIC MOTOR REBUILDER.AUTOMOBILE TRAVEL CLUB COUNSELOR Work Phone: [facility] 08-13-2022 COVID-19 booster vaccine, age 12+ yr, bivalent (PFIZER-BIONTECH) Laurel Toure ELECTRIC MOTOR REBUILDER.AUTOMOBILE TRAVEL CLUB COUNSELOR Work Phone: [facility] 07-19-2022 influenza (aIIV4) vaccine, age 65+ yr, quadrivalent, PF (FLUAD QUADRIVALENT) Laurel Toure ELECTRIC MOTOR REBUILDER.AUTOMOBILE TRAVEL CLUB COUNSELOR Work Phone: [facility] Work Phone: 07-19-2022 influenza, high-dose , quadrivalent vaccine (FLUZONE HIGH DOSE QUADRIVALENT) Laurel Toure APRN.[facility] Work Phone: [facility] 07-19-2022 influenza virus vacc ine, unspecified formulation Glenny Lquue MD Work Phone: [facility] 02-06-2022 COVID-19 vaccine, booster dose (MODERNA) Indio Robledo APRN.[facility] Work Phone: [facility] 09-06-2021 COVID-19 vaccine, fu ll dose (MODERNA) Indio Robledo APRN.[facility] Work Phone: [facility] 08-06-2021 influenza virus vacc ine, unspecified formulation Indio Robledo APRN.[facility] Work Phone: [facility] 01-18-2021 COVID-19 vaccine, fu ll dose (MODERNA) Indio Robledo APRN.[facility] Work Phone: [facility] 12-21-2020 COVID-19 vaccine, fu ll dose (MODERNA) Indio Robledo APRN.[facility] Work Phone: [facility] 12-01-2020 zoster vaccine recombinant Indio Robledo APRN.[facility] Work Phone: [facility] 09-28-2020 zoster vaccine recombinant Indio Robledo APRN.[facility] Work Phone: [facility] Work Phone: 07-19-2020 influenza virus vacc ine, unspecified formulation Indio Robledo APRN.[facility] Work Phone: [facility] 07-18-2020 influenza, high dose seasonal, preservative-free Indio Blakevin HENDRICKSON.[facility] Work Phone: [facility] Work Phone: 08-04-2019 influenza, high dose seasonal, preservative-free Indio Meena HENDRICKSON.[facility] Work Phone: [facility] 07-05-2019 influenza virus vacc ine, unspecified formulation Indio Robledo APRN.[facility] Work Phone: [facility] 07-16-2018 diphtheria, tetanus toxoids and acellular pertussis vaccine Indio Robledo APRN.[facility] Work Phone: [facility] 07-16-2018 influenza virus vacc ine, unspecified formulation Indio Robledo APRN.[facility] Work Phone: [facility] 08-04-2017 influenza virus vacc ine, unspecified formulation Indio Robledo APRN.[facility] Work Phone: [facility] 08-17-2016 influenza, high dose seasonal, preservative-free Indio Robledo APRN.[facility] Work Phone: [facility] 03-26-2016 pneumococcal conjuga te vaccine, 13 valent Indio Robledo APRN.[facility] Work Phone: [facility] 08-04-2013 pneumococcal polysaccharide vaccine, 23 valent Indio Robledo APRN.[facility] Work Phone: [facility] 10-06-2009 novel influenza-H1N1 -09, preservative-free, injectable Indio Robledo APRN.[facility] Work Phone: [facility] 08-04-2008 tetanus toxoid, redu kodak diphtheria toxoid, and acellular pertussis vaccine, adsorbed Indio Robledo APRN.[facility] Work Phone: [facility] Work Phone: 04-18-2008 pneumococcal polysaccharide vaccine, 23 valent Indio Robledo APRN.[facility] Work Phone: [facility] Work Phone: 01-05-2008 zoster vaccine, live Indio Robledo APRN.[facility] Work Phone: [facility] 11-04-1996 diphtheria and tetan us toxoids, adsorbed for pediatric use Indio Robledo APRN.[facility] Work Phone: [facility] Work Phone: Payers Date Payer Category Payer Self-pay 2013 Private Health Insurance [facility] [id number] 2013-Present [phone] [address] [place] [address] Indemnity [id number] 2013 Private Health Insurance [id number] 2013 Unknown [id number] 2011 Medicare MEDICARE MEDICAR E A AND B [id number] 2011-Present [phone] [place] [address] Medicare [id number] 2011 Medicare [id number] 2011 Medicare [id number] Unknown [id number] Unknown [id number] Unknown [id number] Unknown [id number] Unknown [id number] Unknown [id number] Social History Date Type Detail Facility Start: 06-26-2021 End: 11-26-2024 Tobacco smoking status CTIS Smokes tobacco daily [facility] History of tobacco use [facility]igarette Sm[facility] Start: 06-26-2021 End: 03-22-2025 Alcohol intake Current non-drinker of alcohol (finding) [facility] Start: 06-21-2021 End: 03-21-2023 History SDOH Alcohol Frequency 1 [facility] Start: 06-21-2021 End: 03-21-2023 History SDOH Social Connections Phone 3 [facility] Start: 06-21-2021 End: 03-21-2023 History SDOH Social Connections Get Together 98 [facility] Start: 06-21-2021 End: 03-21-2023 History SDOH Social Connections Living 5 [facility] Start: 06-21-2021 End: 03-21-2023 History SDOH Stress 2 [facility] Start: 06-21-2021 Education 18 [facility] Start: 1945 Sex Assigned At Female [facility] Start: 05-29-2022 End: 08-27-2022 Exposure to SARS-CoV-2 (event) Not sure [facility] Start: 06-26-2021 End: 03-21-2023 Cigarettes smoked current (pack per day) - Reported 1 [facility] Start: 06-26-2021 End: 11-26-2024 Tobacco use and exposure Smokeless tobacco non-user [facility] Work Phone: Start: 08-21-2022 End: 03-21-2023 History SDOH Alcohol Std Drinks 0 [facility] Start: 08-21-2022 History SDOH Financial 4 [facility] Start: 03-21-2023 End: 03-17-2024 Social connection and isolation panel [facility] In a typical week, h ow many times do you talk on the telephone with family, friends, or neighbors? Patient refused [facility] Do you belong to any clubs or organizations such as baptism groups, unions, fraternal or athletic groups, or school groups? Yes [facility] Are you now , , , , never or living with a partner? [facility] How often to you hav e a drink containing alcohol? Never [facility] Do you feel stress - tense, restless, nervous, or anxious, or unable to sleep at night because your mind is troubled all the time - these days [OSQ] Not at all [facility] (I/We) worried wheth er (my/our) food would run out before (I/we) got money to buy more. Never true [facility] In the past 12 month s, was there a time when you were not able to pay the mortgage or rent on time? No [facility] Start: 06-17-2019 Gender identity Identifies as female gender (finding) [facility] Start: 06-17-2019 Sexual orientation Heterosexual (finding) [facility] How hard is it for y ou to pay for the very basics like food, housing, medical care, and heating Not very hard [facility] Start: 11-26-2024 Tobacco Comment Trying to reduce, smoking 10 or less. [facility] Do you feel stress - tense, restless, nervous, or anxious, or unable to sleep at night because your mind is troubled all the time - these days [OSQ] Only a little [facility] Functional Status Date Assessment Result Facility 03-23-2015 Are you deaf, or do you have serious difficulty hearing No 03/23/2015 11:35 AM Joana Looney LPN No [facility] 03-23-2015 Are you blind, or do you have serious difficulty seeing, even when wearing glasses No 03/23/2015 11:35 AM Joana Looney LPN [facility] 03-23-2015 Do you have serious difficulty walking or climbing stairs No 03/23/2015 11:35 AM Joana Looney LPN [facility] 03-23-2015 Do you have difficul ty dressing or bathing No 03/23/2015 11:35 AM Joana Looney LPN No [facility] 03-23-2015 Because of a physica l, mental, or emotional condition, do you have difficulty doing errands alone such as visiting a physician's office or shopping No 03/23/2015 11:35 AM Joana Looney LPN No [facility] Mental Status Date Assessment Result Facility [...] Irvin Gallo DMD, MD at fax # [phone] [facility]. Shavonne Lopez RN [facility] 04-28-2025 Miscellaneous Notes Pt called and is notified of providers message and instructions. Pt voices understanding. Faxed medical consultation form to Dr. Irvin Gallo DMD, MD at fax # [phone] [facility]. Shavonne Lopez RN Form done; she may hold the Fosamax now, and stay off it until healed from the dental surgery. Glenny Luque MD Type of letter/form/fax request - Medical Consultation Form Form received from fax on 1 floor and placed on MD desk (Dr. Luque) for completion. Completed form needs to be faxed to Dr. Irvin Gallo DMD, MD at [phone] [facility]. Route to [place] when form completed for processing documented in this encounter [facility] 04-27-2025 Telephone encounter Note Form done; she may hold the Fosamax now, and stay off it until healed from the dental surgery. Glenny Luque MD [facility] 04-22-2025 Telephone encounter Note Type of letter/form/fax request - Medical Consultation Form Form received from fax on 1 floor and placed on MD desk (Dr. Luque) for completion. Completed form needs to be faxed to Dr. Irvin Gallo DMD, MD at [phone] [facility]. Route to [place] when form completed for processing [facility] 04-07-2025 Note HNO ID: [id number] Author: FAITH LARKIN MA Service: ? Author Type: Sheet Rock Taper Helper Type: Progress Notes Filed: 04/07/2025 11:53 Note [...] Larkin MA April 07, 2025 11:45 AM [facility] 04-07-2025 History of Present illness Narrative [...] 2025 11:45 AM documented in this encounter [facility] 04-07-2025 Note Patient Outreach (JEREMI TNAV) ALVARADO COHEN ([id number]) 1945 F Date Time Provider Department 04/07/25 [...] and stay upright for 30 min. - fy-wow-bbcgk-calcium carb-K1 (WOMEN'S 50 PLUS MULTIVITAMIN) 400 mcg-500 [...] for Encounter Date Provider Department Center 04/07/2025 [id number], KATHY LNETNAV None Encounter Status:Closed by FAITH LARKIN on 04/07/25 [facility] 03-22-2025 History of Present illness Narrative [...] tablet by mouth three times a day. rt-axj-dmarw-calcium carb-K1 (WOMEN'S 50 PLUS MULTIVITAMIN) 400 mcg-500 [...] Glenny Luque MD documented in this encounter [facility] 03-22-2025 Note HNO ID: [id number] Author: GLENNY LUQUE MD Service: ? Author [...] tablet by mouth three times a day. qr-npm-beyfs-calcium carb-K1 (WOMEN'S 50 PLUS MULTIVITAMIN) 400 mcg-500 [...] I10 (primary diagnosi (more content not included)... [facility] 03-03-2025 Note HNO ID: [id number] Author: FAITH LARKIN MA Service: ? Author Type: Sheet Rock Taper Helper Type: Progress Notes Filed: 03/03/2025 15:03 Note [...] Larkin MA March 03, 2025 2:47 PM [facility] 03-03-2025 History of Present illness Narrative [...] 2025 2:47 PM documented in this encounter [facility] 03-03-2025 Note Patient Outreach (JEREMI HUERTA) ALVARADO COHEN ([id number]) 1945 F Date Time Provider Department 03/03/25 [...] by mouth three times a day. - dy-crd-prctg-calcium carb-K1 (WOMEN'S 50 PLUS MULTIVITAMIN) 400 mcg-500 [...] Encounter Status:Closed by FAITH LARKIN on 03/03/25 [facility] 01-25-2025 Telephone encounter Note Patient contacted [...] and date of : Yes Oumou Thompson [facility] 01-25-2025 Miscellaneous Notes Patient contacted pharmacy [...] Yes Oumou Thompson documented in this encounter [facility] 01-04-2025 Progress note Formatting of t his note might be different from the original. Rx's have been sent. Leeanne Sterling MA [facility] 01-04-2025 Miscellaneous Notes Rx's have been [...] Glenny Luque MD documented in this encounter [facility] 01-04-2025 Progress note Formatting of t his note might be different from the original. OK to refill as ordered Glenny Luque MD [facility] 01-04-2025 Progress note Formatting of t [...] and Chlorthalidone. Rx's pended. Leeanne Sterling MA [facility] 01-04-2025 Telephone encounter Note Please notify patient that her bone density test does show osteoporosis in her femoral necks, with an increased risk of having hip fracture. She would be a candidate to start on weekly Fosamax pills; I can send Rx to whatever pharmacy she uses if she is willing to start this. Glenny Luque MD [facility] 01-01-2025 History of Present illness Narrative [...] PATIENT PRESENTS WITH AN IMPLANTABLE OR ATTACHED RETAIL BEAUTY SPECIALIST: No RADIOLOGY DEPARTMENT: Bone Density PERIPHERAL IV DATA: Not applicable SIGNED BY: RT Kasie(R) January 01, 2025 12:30 PM documented in this encounter [facility] 01-01-2025 Note HNO ID: [id number] Author: BERNABE [facility]OWERS RT(R) Service: ? Author [...] PATIENT PRESENTS WITH AN IMPLANTABLE OR ATTACHED RETAIL BEAUTY SPECIALIST: No RADIOLOGY DEPARTMENT: Bone Density PERIPHERAL IV DATA: Not applicable SIGNED BY: RT Kasie(R) January 01, 2025 12:30 PM [facility] 11-26-2024 Instructions Leeanne Sterling MA - [...] usual activities immediately. documented in this encounter [facility] 11-26-2024 History of Present illness Narrative [...] General (Family Medicine) Laurel Toure APRN.NIKKI as Claims Agent [employer] Way (Family Medicine) Hans Mccray APRN.CNP as Claims Agent [address] (Family Medicine) Porfirio Mei MD - Vascular [...] Past Histories independently gathered by the clinical manager support services and the remaining scribed note accurately describes [...] Leeanne Sterling MA documented in this encounter [facility] 11-26-2024 Note HNO ID: [id number] Author: GLENNY LUQUE MD Service: ? Author [...] General (Family Medicine) Laurel Toure APRN.NIKKI as Claims Agent [address] (Family Medicine) Hans Mccray APRN.AUTOMOBILE TRAVEL CLUB COUNSELOR as Claims Agent [address] (Family Medicine) Porfirio Mei MD - Vascular [...] Smoking cessation encou (more content not included)... [facility] 10-07-2024 Note [facility] Medical Records Department [address] [place] [address] History Physical Exam 10/07/24 0753 MR#: [id number] Acct: [id number] Name: ALVARADO COHEN CALLI Rep #: [id number] : 1945 79 From: Porfirio Mei MD PCP: Dr. Glenny Luque MD Status:REG [facility] Location: [facility] HPI - General HPI Narrative ALVARADO COHEN, is a 79 F who presents with worsening hypertension on multiple medications. She had a duplex that revealed right renal artery stenosis. [facility] Medical History Renal artery stenosis HTN (hypertension) [...] artery stenosis: PLAN: -angiogram possible stent 10/07/24 [id number] Cosigner Signature (if applicable): CC: Dr. Porfirio Mei MD; Dr. Glenny Luque MD Signed [facility] 09-25-2024 History of Present illness Narrative [...] PATIENT PRESENTS WITH AN IMPLANTABLE OR ATTACHED RETAIL BEAUTY SPECIALIST: No RADIOLOGY DEPARTMENT: Mammography PERIPHERAL IV DATA: Not applicable SIGNED BY: RT David(Lang) September 25, 2024 1:27 PM documented in this encounter [facility] 09-25-2024 Note HNO ID: [id number] Author: SHANTA GARRISON RT(R) Service: ? Author [...] PATIENT PRESENTS WITH AN IMPLANTABLE OR ATTACHED RETAIL BEAUTY SPECIALIST: No RADIOLOGY DEPARTMENT: Mammography PERIPHERAL IV DATA: Not applicable SIGNED BY: RT David(Lang) September 25, 2024 1:27 PM [facility] 09-18-2024 Note HNO ID: [id number] Author: JELANI OZUNA MA Service: ? Author Type: Sheet Rock Taper Helper Type: Progress Notes Filed: 09/18/2024 13:45 Note [...] orders: Medicare Annual Wellness Visit 11/09/2024 in [facility] with GLENNY LUQUE AWV is PRIMARY/Follow up , For BOTH use modifier 25 Navigation Signature: Jelani Ozuna MA September 18, 2024 1:37 PM [facility] 09-18-2024 History of Present illness Narrative [...] orders: Medicare Annual Wellness Visit 11/09/2024 in [facility] with GLENNY LUQUE AWV is PRIMARY/Follow up , For BOTH use modifier 25 Navigation Signature: Jelani Ozuna MA September 18, 2024 1:37 PM documented in this encounter [facility] 09-18-2024 Note Patient Outreach (JEREMI TNAV) ALVARADO COHEN ([id number]) 1945 F Date Time Provider Department 09/18/24 [...] orders: Medicare Annual Wellness Visit 11/09/2024 in [facility] with GLENNY LUQUE is PRIMARY/Follow [...] Encounter Status:Closed by JELANI OZUNA on 09/18/24 [facility] 07-24-2024 Note HNO ID: [id number] Author: ALLIE LYNCH APRN.AUTOMOBILE TRAVEL CLUB COUNSELOR Service: ? Author Type: Nurse Practitioner Type: [...] provided by the patient. No speech language pathologist prn was used. Laceration Review of Systems Constitutional: [...] plan. Both wounds were redressed. Allie Lynch APRN.[facility] 07-24-2024 History of Present illness Narrative Images [...] provided by the patient. No speech language pathologist prn was used. Laceration Review of Systems Constitutional: [...] Allie Lynch APRN.NIKKI documented in this encounter [facility] 03-26-2024 Telephone encounter Note Patient calling she phoned Dr Alexander Govea office to make appt and they did not have her information. Printed Nephrology consult, insurance card, face sheet, office notes, labs and imaging and faxed to [phone] as requested. [facility] 03-26-2024 Miscellaneous Notes Patient calling she phoned Dr Alexander Govea office to make appt and they did not have her information. Printed Nephrology consult, insurance card, face sheet, office notes, labs and imaging and faxed to [phone] as requested. documented in this encounter [facility] 03-23-2024 Telephone encounter Note Pt called [...] an allergy to this. Yecenia Salcedo LPN [facility] 03-23-2024 Miscellaneous Notes Pt called in [...] Yecenia Salcedo LPN documented in this encounter [facility] 03-23-2024 Telephone encounter Note Patient phones requesting refills as follows: Requested Prescriptions Pending Prescriptions Disp Refills hydrALAZINE (APRESOLINE) 25 mg tablet 180 tablet 1 Sig: Take 1 tablet by mouth two times a day. Patient would like to have this at [facility] for mail order instead of local. Please review and advise. Rosa Ram LPN [facility] 03-23-2024 Miscellaneous Notes Patient phones requesting refills as follows: Requested Prescriptions Pending Prescriptions Disp Refills hydrALAZINE (APRESOLINE) 25 mg tablet 180 tablet 1 Sig: Take 1 tablet by mouth two times a day. Patient would like to have this at [facility] for mail order instead of local. Please review and advise. Rosa Ram LPN documented in this encounter [facility] 03-20-2024 Instructions Hans Mccray APRN.CNP - 03/20/2024 10:29 AM EDT Schedule with [facility], Dr. Nora Govea [facility], [facility]. Address: [address] [place] [address], [place] [address] Increase Hydralazine to 25 mg twice daily Go to the ER for chest pain, dizziness, blurry vision See us back 3 months. Hans Mccray APRN.NIKKI documented in this encounter [facility] 03-20-2024 History of Present illness Narrative [...] IMPRESSION: 1. No acute renal abnormality detected. City Director: ALEX Transcribe Date/Time: Mar 10 2024 8:27A [...] needed. This note was partly generated using dooub voice recognition dictation and may contain some misspelled or inaccurate words missed on review. documented in this encounter [facility] 03-10-2024 Telephone encounter Note Pt notified of results via Maestrohart. Tiffanie Ruff Ma [facility] 03-10-2024 Miscellaneous Notes Pt notified of results via Maestrohart. Tiffanie Ruff Ma Please let the patient know that her ultrasound of the kidneys is normal. No kidney disease that would be cause for resistant hypertension. Continue with current medications and follow ups as scheduled. Hans Mccray APRN.CNP documented in this encounter [facility] 03-10-2024 Telephone encounter Note Pt notified via Logisticare. Tiffanie Ruff MA [facility] 03-10-2024 Miscellaneous Notes Pt notified via Logisticare. Tiffanie Ruff MA documented in this encounter [facility] 03-10-2024 Telephone encounter Note Please let the patient know that her ultrasound of the kidneys is normal. No kidney disease that would be cause for resistant hypertension. Continue with current medications and follow ups as scheduled. Hans Mccray APRN.CNP [facility] 03-09-2024 Telephone encounter Note The following [...] two times a day. Hans Mccray APRN.CNP [facility] 03-09-2024 Miscellaneous Notes The following approved [...] Lala Brewer MA documented in this encounter [facility] 03-09-2024 Telephone encounter Note Patient stopped [...] go to mail order. Lala Brewer MA [facility] 03-06-2024 History of Present illness Narrative [...] PATIENT PRESENTS WITH AN IMPLANTABLE OR ATTACHED RETAIL BEAUTY SPECIALIST: No RADIOLOGY DEPARTMENT: Ultrasound PERIPHERAL IV DATA: Not applicable SIGNED BY: Laly Kauffman RDMS RVT March 06, 2024 1:33 PM documented in this encounter [facility] 02-18-2024 Miscellaneous Notes Patient active EaglEyeMedhart. Patient notified via Talaentia message. Lala Brewer MA Please let the [...] Hans Mccray APRN.CNP documented in this encounter [facility] 02-17-2024 Instructions Hans Mccray APRN.CNP - 02/17/2024 11:46 AM EDT Get blood work today Schedule ultrasound of kidneys Stop hydrochlorothiazide Start Chlorthalidone 25 mg daily Start new prescription for Lisinopril 30 mg twice daily. This replaces the Lisinopril 40 mg. See us back in 4 weeks. Hans Mccray APRN.CNP documented in this encounter [facility] 02-17-2024 History of Present illness Narrative [...] KIDNEY/BLADDER - ALDOSTERONE/DIRECT RENIN RATIO Hans Mccray APRN.AUTOMOBILE TRAVEL CLUB COUNSELOR RTO in 1 months, sooner if needed. This note was partly generated using dooub voice recognition dictation and may contain some misspelled or inaccurate words missed on review. BP Manual readin/62 Pulse: 83 RIGHT arm REGULAR cuff BP Chasity Average: 188/67 Pulse: 71 LEFT arm REGULAR cuff 1. 199/74 Pulse: 71 2. 188/67 Pulse: 72 3. 189/65 Pulse: 71 4. 187/69 Pulse: 70 BP CHASITY AVERAGE: 188/67 Pulse: 71 documented in this encounter [facility] 02-06-2024 Miscellaneous Notes TC to patient [...] still very high. Thank you. Laurel Toure APRN.AUTOMOBILE TRAVEL CLUB COUNSELOR Pt was to f/u in 1 mo [...] you. Dia Thompson. documented in this encounter [facility] 09-02-2023 Miscellaneous Notes The following approved [...] Candi Maldonado MA documented in this encounter [facility] 08-08-2023 Miscellaneous Notes August 09, 2023 PID: [id number] Alvarado Cohen [address] [place] [address] Dear Ms. Cohen, We are pleased to [...] report will be kept on file at [facility] as part of your permanent medical record and are available for your continuing care. Thank you for allowing us to help in meeting your health care needs. Sincerely, Dr. Tejada Interpreting Radiologist [facility] (Normal over 40) documented in this encounter [facility] 08-08-2023 History of Present illness Narrative [...] DATA: Not applicable SIGNED BY: Carolina Downing [employer] [place] August 08, 2023 11:05 AM documented in this encounter [facility] 07-11-2023 Miscellaneous Notes The following approved [...] Rosa Gutierrez LPN documented in this encounter [facility] 07-09-2023 Miscellaneous Notes The following approved medication requests have been transmitted electronically. Requested Prescriptions Pending Prescriptions Disp Refills metoprolol succinate ER (TOPROL XL) 50 mg 24 hr tablet 60 tablet 0 Sig: Take 1 tablet by mouth twice daily. Hans Mccray APRN.CNP Last office visit: 06/12/23 F/u scheduled: none Tiffanie Ruff Ma Patient needs a 1 month emergency supply sent to [facility] she is out at this time. Patient [...] patient. Cyndy Thompson documented in this encounter [facility] 06-12-2023 Instructions Laurel Toure APRN.CNP - 06/12/2023 12:48 PM EDT Make appointment with nephrology for consult. Continue to take all medication as prescribed Check blood pressure twice daily, goal 130/80 or less. If blood pressure is elevated may increase hydralazine 10 mg (2 tab=20 mg) twice daily. Message the office with blood pressure readings. documented in this encounter [facility] 06-12-2023 History of Present illness Narrative [...] to uncontrolled hypertension. Discussed establishing care with [facility] here in [place]. Would like to wait to see specialist. [...] APRN.CNP This note was partially generated using dooub voice recognition system. Note was reviewed for accuracy. There may be minor misspellings or grammar miscues with dooub voice recognition. documented in this encounter [facility] 05-13-2023 Miscellaneous Notes Noted, thank you. [...] able to see Dr. Brian at the [facility] [place] location. Patient reports her options are Dr. Caceres at the [place] location or Dr. Brian at the [facility] location. Patient asking provider if she would still recommend Dr. Brian. Patient wants to choose the executive talent acquisition consultant that provider would recommend but would rather not travel so asking for further review. Call patient back at [phone] with provider response. Please review and advise, Brooklynn Posada, RN documented in this encounter [facility] 05-08-2023 Instructions Laurel Toure APRN.NIKKI - 05/08/2023 1:16 PM EDT Continue to take all medication as prescribed. Add on hydralazine 10 mg twice daily. Monitor blood pressure at home. Recommend consult with nephrology Follow up in 1 month or sooner as needed. documented in this encounter [facility] 05-08-2023 History of Present illness Narrative [...] APRN.CNP This note was partially generated using dooub voice recognition system. Note was reviewed for accuracy. There may be minor misspellings or grammar miscues with dooub voice recognition. documented in this encounter [facility] 04-08-2023 Instructions Laurel Toure APRN.CNP - [...] 130/80 or less documented in this encounter [facility] 04-08-2023 History of Present illness Narrative [...] APRN.CNP This note was partially generated using dooub voice recognition system. Note was reviewed for accuracy. There may be minor misspellings or grammar miscues with dooub voice recognition. documented in this encounter [facility] 08-27-2022 Instructions Laurel Toure APRN.CNP - 08/27/2022 10:29 AM EDT Get fasting labs completed, no food 8-10 hours prior. May black coffee and water. Continue to take all medications as prescribed. Monitor Blood Pressure at home, please follow up in the office BP is elevate. Follow up pending test results. Health Promotion: - Eat healthy -- go to [employer] to get started - Have a yearly [...] - Wear sunscreen documented in this encounter [facility] 08-27-2022 History of Present illness Narrative [...] Procedure Laterality Date COLONOSCOP W/ OR W/O [facility] SPE[facility] 02/18/07 COLONOSCOP W/ OR W/O [facility] SPEC 06/10/2017 Colonoscopy ALLERGIES Codeine, Spironolactone, and [...] APRN.NIKKI This note was partially generated using dooub voice recognition system. Note was reviewed for accuracy. There may be minor misspellings or grammar miscues with dooub voice recognition. documented in this encounter [facility] 06-14-2022 Miscellaneous Notes Patient active MyChart. Patient notified via Talaentia message. Lala Brewer MA documented in this encounter [facility] 06-12-2022 Miscellaneous Notes June 12, 2022 PID: [id number] Alvarado Cohen [address] [place] [address] Dear Ms. Cohen, We are pleased to [...] report will be kept on file at [facility] as part of your permanent medical record and are available for your continuing care. Thank you for allowing us to help in meeting your health care needs. Sincerely, Dr. Mathews Interpreting Radiologist [facility] (Normal over 40) documented in this encounter [facility] 06-11-2022 History of Present illness Narrative [...] 2022 2:58 PM documented in this encounter [facility] 02-26-2014 History of Past i llness Narrative Problem Noted Date Resolved Date Hypokalemia 02/26/2014 04/10/2017 Vitamin D deficiency 09/03/2007 04/10/2017 documented as of this encounter (statuses as of 06/08/2022) [facility] History of Past illness Narrative* Problem Noted Date Resolved Date Hypokalemia 02/26/2014 04/10/2017 Vitamin D deficiency 09/03/2007 04/10/2017 documented as of this encounter (statuses as of 06/12/2022) [address]25-2014 History of Past illness Narrative* Problem Noted Date Resolved Date Hypokalemia 02/26/2014 04/10/2017 Vitamin D deficiency 09/03/2007 04/10/2017 documented as of this encounter (statuses as of 06/14/2022) [address]25-2014 History of Past illness Narrative* Problem Noted Date Resolved Date Hypokalemia 02/26/2014 04/10/2017 Vitamin D deficiency 09/03/2007 04/10/2017 documented as of this encounter (statuses as of 08/27/2022) [address]25-2014 History of Past illness Narrative* Problem Noted Date Resolved Date Hypokalemia 02/26/2014 04/10/2017 Vitamin D deficiency 09/03/2007 04/10/2017 documented as of this encounter (statuses as of 04/09/2023) [place] [address]-25-2014 History of Past illness Narrative* Problem Noted Date Resolved Date Hypokalemia 02/26/2014 04/10/2017 Vitamin D deficiency 09/03/2007 04/10/2017 documented as of this encounter (statuses as of 05/08/2023) [place] [address]25-2014 History of Past illness Narrative* Problem Noted Date Diagnosed Date Resolved Date Hypokalemia 02/26/2014 04/10/2017 Vitamin D deficiency 09/03/2007 017 documented as of this encounter (statuses as of 05/13/2023) [facility] History of Past illness Narrative* Problem Noted Date Diagnosed Date Resolved Date Hypokalemia 02/26/2014 04/10/2017 Vitamin D deficiency 09/03/2007 017 documented as of this encounter (statuses as of 06/13/2023) [place] [address]25-2014 History of Past illness Narrative* Problem Noted Date Diagnosed Date Resolved Date Hypokalemia 02/26/2014 04/10/2017 Vitamin D deficiency 09/03/2007 017 documented as of this encounter (statuses as of 06/13/2023) [place] [address]25-2014 History of Past illness Narrative* Problem Noted Date Diagnosed Date Resolved Date Hypokalemia 02/26/2014 04/10/2017 Vitamin D deficiency 09/03/2007 017 documented as of this encounter (statuses as of 07/09/2023) [address]25-2014 History of Past illness Narrative* Problem Noted Date Diagnosed Date Resolved Date Hypokalemia 02/26/2014 04/10/2017 Vitamin D deficiency 09/03/2007 017 documented as of this encounter (statuses as of 07/21/2023) [address]25[address]2014 History of Past illness Narrative* Problem Noted Date Diagnosed Date Resolved Date Hypokalemia 02/26/2014 04/10/2017 Vitamin D deficiency 09/03/2007 017 documented as of this encounter (statuses as of 08/10/2023) [address]25-2014 History of Past illness Narrative* Problem Noted Date Diagnosed Date Resolved Date Hypokalemia 02/26/2014 04/10/2017 Vitamin D deficiency 09/03/2007 017 documented as of this encounter (statuses as of 08/27/2023) [address]25[address]2014 History of Past illness Narrative* Problem Noted Date Diagnosed Date Resolved Date Hypokalemia 02/26/2014 04/10/2017 Vitamin D deficiency 09/03/2007 017 documented as of this encounter (statuses as of 09/02/2023) [place] [address]25-2014 History of Past illness Narrative* Problem Noted Date Diagnosed Date Resolved Date Hypokalemia 02/26/2014 04/10/2017 Vitamin D deficiency 09/03/2007 017 documented as of this encounter (statuses as of 09/08/2023) [address]25[address]2014 History of Past illness Narrative* Problem Noted Date Diagnosed Date Resolved Date Hypokalemia 02/26/2014 04/10/2017 Vitamin D deficiency 09/03/2007 017 documented as of this encounter (statuses as of 01/13/2024) [place] [address]25-2014 History of Past illness Narrative* Problem Noted Date Diagnosed Date Resolved Date Hypokalemia 02/26/2014 04/10/2017 Vitamin D deficiency 09/03/2007 017 documented as of this encounter (statuses as of 02/07/2024) [facility] History of Past illness Narrative* Problem Noted Date Diagnosed Date Resolved Date Hypokalemia 02/26/2014 04/10/2017 Vitamin D deficiency 09/03/2007 017 documented as of this encounter (statuses as of 02/18/2024) [facility] History of Past illness Narrative* Problem Noted Date Diagnosed Date Resolved Date Hypokalemia 02/26/2014 04/10/2017 Vitamin D deficiency 09/03/2007 017 documented as of this encounter (statuses as of 02/19/2024) [facility] Diagnosis Visit for screening mammogram- Primary Other screening mammogram [facility] Diagnosis Essential hypertension, benign- Primary Hyperlipidemia with target LDL less than 100 Other and unspecified hyperlipidemia Tobacco abuse Tobacco use disorder [facility] Diagnosis Essential hypertension, benign- Primary [facility] Diagnosis Uncontrolled hypertension- Primary Unspecified essential hypertension [facility] Diagnosis Uncontrolled hypertension- Primary Unspecified essential hypertension [facility] Diagnosis Uncontrolled hypertension Unspecified essential hypertension [facility] Diagnosis Visit for screening mammogram- Primary Other screening mammogram [facility] Diagnosis Uncontrolled hypertension Unspecified essential hypertension [facility] Diagnosis Uncontrolled hypertension Unspecified essential hypertension [facility] Diagnosis Uncontrolled hypertension Unspecified essential hypertension [facility] Diagnosis Essential hypertension, benign- Primary Resistant hypertension [facility] Diagnosis Essential hypertension, benign Resistant hypertension [facility] Diagnosis Essential hypertension, benign Uncontrolled hypertension Unspecified essential hypertension [facility] Diagnosis Essential hypertension, benign- Primary Uncontrolled hypertension Unspecified essential hypertension [facility] Diagnosis Essential hypertension, benign Uncontrolled hypertension Unspecified essential hypertension [facility]* Diagnosis Open wound- Primary Open wound(s) (multiple) of unspecified site(s), without mention of complication [facility] Diagnosis Encounter for Medicare annual [...] vascular disease, unspecified [facility] Diagnosis Age-related osteoporosis without current pathological fracture Senile osteoporosis [facility] Diagnosis Essential hypertension, benign [facility]* Diagnosis Osteoporosis, unspecified osteoporosis type, unspecified pathological fracture presence- Primary Essential hypertension, benign [facility] Diagnosis Essential hypertension, benign- Primary Resistant hypertension Uncontrolled hypertension Unspecified essential hypertension Osteoporosis, unspecified osteoporosis type, unspecified pathological fracture presence Claudication Peripheral vascular disease, unspecified Tobacco use disorder [facility] Diagnostic Procedure Only (Routine) - Pending Review Specialty Diagnoses / Procedures Referred By Sallie simpson Referred To Contact [facility] Diagnoses Visit for screening mammogram Procedures [facility] SCREENING SCREENING MAMMOGRAPHY BI 2-VIEW BREAST INC Indio Busby APRN.CNP, DNP [address] [place] [address] [facility] [address] [place] [id number] Referral ID Status Reason Start Date Expiration Date Visits Requested Visits Authorized [id number] Pending Review Auto-Generat ed Referral 06/08/2022 07/08/2023 1 1 [facility] Diagnostic Procedure Only (Routine) - Pending Review Specialty Diagnoses / Procedures Referred By Contnaomi t Referred To Contact [facility] Diagnoses Visit for screening mammogram Procedures [facility] SCREENING SCREENING MAMMOGRAPHY BI 2-VIEW BREAST INC Glenny Melton MD [address] [place] [address] [facility] [address] [place] [address] Referral ID Status Reason Start Date Expiration Date Visits Requested Visits Authorized [id number] Pending Review Auto-Generat ed Referral 07/21/2023 08/17/2024 1 1 [facility] for referral (narrative)* Diagnostic Procedure Only (Routine) - Authorized Specialty Diagnoses / Procedures Referred By Contac t Referred To Contact [facility] Diagnoses Essential hypertension, benign Resistant hypertension Procedures US KIDNEY/BLADDER US RETROPERITONEAL REAL TIME W/IMAGE COMPLETE Hans Mccray APRN.CNP [address] [place] [address] [place] [address] Referral ID Status Reason Start Date Expiration Date Visits Requested Visits Authorized [id number] Authorized Auto-Generat ed Referral 02/17/2024 03/18/2025 1 1 [facility] for referral (narrative)* Diagnostic Procedure Only (Routine) - Authorized Specialty Diagnoses / Procedures Referred By Contac t Referred To Contact XR IMAGING Diagnoses Age-related osteoporosis without current pathological fracture Procedures DXA-AXIAL SKELETON DXA BONE DENSITY STUDY 1/> SITES AXIAL SKEL Glenny Luque MD [address] [place] [address] [place] [address] Referral ID Status Reason Start Date Expiration Date Visits Requested Visits Authorized [id number] Authorized Auto-Generat ed Referral 11/26/2024 12/26/2025 1 1 * Outpatient Procedure (Routine) - Authorized Specialty Diagnoses / Procedures Referred By Contac t Referred To [facility] Diagnoses Uncontrolled hypertension Leg fatigue Claudication (HCC) Procedures PVR ANK PRESS PEARL [facility] NON-INVAS PHYSIOLOGIC STD EXTREMITY ART 2 LEVEL Glenny Luque MD [address] [place] [address] [facility] [address] [place] [address] Referral ID Status Reason Start Date Expiration Date Visits Requested Visits Authorized [id number] Authorized Auto-Generat ed Referral 11/26/2024 11/26/2025 1 1 [facility] for visit Narrative* Diagnostic Procedure Only (Routine) - Closed Specialty Diagnoses / Procedures Referred By Contac t Referred To Contact [facility] Diagnoses Visit for screening mammogram Procedures [facility] SCREENING SCREENING MAMMOGRAPHY BI 2-VIEW BREAST INC CAD Indio Robledo APRN.AUTOMOBILE TRAVEL CLUB COUNSELOR, DNP [address] [place] [address] [facility] [address] [place] [address] Referral ID Status Reason Start Date Expiration Date V isits Requested Visits Authorized [id number] Closed Auto-Generated Referral Patient Cleared - INN Insurance Found 06/08/2022 07/08/2023 1 1 [facility] for visit Narrative* Diagnostic Procedure Only (Routine) - Closed Specialty Diagnoses / Procedures Referred By Contac t Referred To Contact [facility] Diagnoses Visit for screening mammogram Procedures JOSEFA SCREENING SCREENING MAMMOGRAPHY BI 2-VIEW BREAST INC Glenny Melton MD [address] [place] [address] [facility] [address] [place] [address] Referral ID Status Reason Start Date Expiration Date V isits Requested Visits Authorized [id number] Closed Auto-Generate d Referral 07/21/2023 08/17/2024 1 1 [facility] for visit Narrative* Diagnostic Procedure Only (Routine) - Closed Specialty Diagnoses / Procedures Referred By Sallie t Referred To Contact [facility] Diagnoses Visit for screening mammogram Procedures JOSEFA SCREENING SCREENING MAMMOGRAPHY BI 2-VIEW BREAST INC Glenny Melton MD [address] [place] [address] [facility] [address] [place] [address] Referral ID Status Reason Start Date Expiration Date V isits Requested Visits Authorized [id number] Closed Auto-Generate d Referral 09/21/2024 10/18/2025 1 1 [facility] Diagnostic Procedure Only (Routine) - Closed Specialty Diagnoses / Procedures Referred By Rohiniac t Referred To Contact XR IMAGING Diagnoses Age-related osteoporosis without current pathological fracture Procedures DXA-AXIAL SKELETON DXA BONE DENSITY STUDY / SITES AXIAL Glenny Dial MD [address] [place] [address] Phone: tel: fax: [place] [address] Referral ID Status Reason Start Date Expiration Date V isits Requested Visits Authorized [id number] Closed Auto-Generate d Referral 11/26/2024 12/26/2025 1 1 [facility] Advance Directives No Advanced Directives Records FoundDocuments on File Type Date Recorded 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 Advance Directive(s) 06/10/2017 11:09 AM Advance Directive(s) 06/10/2017 10:58 AM Documents on File Type Date Recorded 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 Advance Directive(s) 06/10/2017 10:58 AM Documents on File Type Date Recorded 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 Advance Directive(s) 06/10/2017 10:58 AM Reason for Referral Specialty Diagnoses / Procedures Referred By Contac t Referred To Contact Nephrology Diagnoses Uncontrolled hypertension Procedures CONSULT TO NEPHROLOGY OFFICE/OUTPATIENT NEW [facility] MDM 60-74 MINUTES Laurel Toure, ELECTRIC MOTOR REBUILDER.AUTOMOBILE TRAVEL CLUB COUNSELOR [address] [place] [address] Referral ID Status Reason Start Date Expiration Date Visits Requested Visits Authorized [id number] Authorized PCP Requested Referral 05/08/2023 05/07/2024 1 1 Specialty Diagnoses / Procedures Referred By Contac t Referred To Contact Nephrology Diagnoses Essential hypertension, benign Uncontrolled hypertension Procedures CONSULT TO NEPHROLOGY OFFICE/OUTPATIENT NEW HIGH MDM 60 MINUTES Hans Mccray, ELECTRIC MOTOR REBUILDER.AUTOMOBILE TRAVEL CLUB COUNSELOR [address] [place] [address] Referral ID Status Reason Start Date Expiration Date Visits Requested Visits Authorized [id number] Authorized PCP Requested Referral 03/20/2024 03/20/2025 1 [...] or prosecute any alcohol or drug abuse patient.[facility] HospitalIn the event this information is protected by the Federal Confidentiality of Alcohol and Drug Abuse Patient Records regulations: The Federal rules restrict any use of the information to criminally investigate or prosecute any alcohol or drug abuse patient.[facility] HospitalIn the event this information is protected by the Federal Confidentiality of Alcohol and Drug Abuse Patient Records regulations: The Federal rules restrict any use of the information to criminally investigate or prosecute any alcohol or drug abuse patient.[facility] HospitalIn the event this information is protected by the Federal Confidentiality of Alcohol and Drug Abuse Patient Records regulations: The Federal rules restrict any use of the information to criminally investigate or prosecute any alcohol or drug abuse patient.[facility] HospitalIn the event this information is protected by the Federal Confidentiality of Alcohol and Drug Abuse Patient Records regulations: The Federal rules restrict any use of the information to criminally investigate or prosecute any alcohol or drug abuse patient.[facility] HospitalIn the event this information is protected by the Federal Confidentiality of Alcohol and Drug Abuse Patient Records regulations: The Federal rules restrict any use of the information to criminally investigate or prosecute any alcohol or drug abuse patient.[facility] HospitalIn the event this information is protected by the Federal Confidentiality of Alcohol and Drug Abuse Patient Records regulations: The Federal rules restrict any use of the information to criminally investigate or prosecute any alcohol or drug abuse patient.[facility] HospitalIn the event this information is protected by the Federal Confidentiality of Alcohol and Drug Abuse Patient Records regulations: The Federal rules restrict any use of the information to criminally investigate or prosecute any alcohol or drug abuse patient.[facility] HospitalIn the event this information is protected by the Federal Confidentiality of Alcohol and Drug Abuse Patient Records regulations: The Federal rules restrict any use of the information to criminally investigate or prosecute any alcohol or drug abuse patient.[facility] HospitalIn the event this information is protected by the Federal Confidentiality of Alcohol and Drug Abuse Patient Records regulations: The Federal rules restrict any use of the information to criminally investigate or prosecute any alcohol or drug abuse patient.[facility] HospitalIn the event this information is protected by the Federal Confidentiality of Alcohol and Drug Abuse Patient Records regulations: The Federal rules restrict any use of the information to criminally investigate or prosecute any alcohol or drug abuse patient.[facility] HospitalIn the event this information is protected by the Federal Confidentiality of Alcohol and Drug Abuse Patient Records regulations: The Federal rules restrict any use of the information to criminally investigate or prosecute any alcohol or drug abuse patient.[facility] HospitalIn the event this information is protected by the Federal Confidentiality of Alcohol and Drug Abuse Patient Records regulations: The Federal rules restrict any use of the information to criminally investigate or prosecute any alcohol or drug abuse patient.[facility] HospitalIn the event this information is protected by the Federal Confidentiality of Alcohol and Drug Abuse Patient Records regulations: The Federal rules restrict any use of the information to criminally investigate or prosecute any alcohol or drug abuse patient.[facility] HospitalIn the event this information is protected by the Federal Confidentiality of Alcohol and Drug Abuse Patient Records regulations: The Federal rules restrict any use of the information to criminally investigate or prosecute any alcohol or drug abuse patient.[facility] HospitalIn the event this information is protected by the Federal Confidentiality of Alcohol and Drug Abuse Patient Records regulations: The Federal rules restrict any use of the information to criminally investigate or prosecute any alcohol or drug abuse patient.[facility] HospitalIn the event this information is protected by the Federal Confidentiality of Alcohol and Drug Abuse Patient Records regulations: The Federal rules restrict any use of the information to criminally investigate or prosecute any alcohol or drug abuse patient.[facility] HospitalIn the event this information is protected by the Federal Confidentiality of Alcohol and Drug Abuse Patient Records regulations: The Federal rules restrict any use of the information to criminally investigate or prosecute any alcohol or drug abuse patient.[facility] HospitalIn the event this information is protected by the Federal Confidentiality of Alcohol and Drug Abuse Patient Records regulations: The Federal rules restrict any use of the information to criminally investigate or prosecute any alcohol or drug abuse patient.[facility] HospitalIn the event this information is protected by the Federal Confidentiality of Alcohol and Drug Abuse Patient Records regulations: The Federal rules restrict any use of the information to criminally investigate or prosecute any alcohol or drug abuse patient.[facility] HospitalIn the event this information is protected by the Federal Confidentiality of Alcohol and Drug Abuse Patient Records regulations: The Federal rules restrict any use of the information to criminally investigate or prosecute any alcohol or drug abuse patient.[facility] HospitalIn the event this information is protected by the Federal Confidentiality of Alcohol and Drug Abuse Patient Records regulations: The Federal rules restrict any use of the information to criminally investigate or prosecute any alcohol or drug abuse patient.[facility] HospitalIn the event this information is protected by the Federal Confidentiality of Alcohol and Drug Abuse Patient Records regulations: The Federal rules restrict any use of the information to criminally investigate or prosecute any alcohol or drug abuse patient.[facility] HospitalIn the event this information is protected by the Federal Confidentiality of Alcohol and Drug Abuse Patient Records regulations: The Federal rules restrict any use of the information to criminally investigate or prosecute any alcohol or drug abuse patient.[facility] HospitalIn the event this information is protected by the Federal Confidentiality of Alcohol and Drug Abuse Patient Records regulations: The Federal rules restrict any use of the information to criminally investigate or prosecute any alcohol or drug abuse patient.[facility] HospitalIn the event this information is protected by the Federal Confidentiality of Alcohol and Drug Abuse Patient Records regulations: The Federal rules restrict any use of the information to criminally investigate or prosecute any alcohol or drug abuse patient.[facility] HospitalIn the event this information is protected by the Federal Confidentiality of Alcohol and Drug Abuse Patient Records regulations: The Federal rules restrict any use of the information to criminally investigate or prosecute any alcohol or drug abuse patient.[facility] HospitalIn the event this information is protected by the Federal Confidentiality of Alcohol and Drug Abuse Patient Records regulations: The Federal rules restrict any use of the information to criminally investigate or prosecute any alcohol or drug abuse patient.[facility] HospitalIn the event this information is protected by the Federal Confidentiality of Alcohol and Drug Abuse Patient Records regulations: The Federal rules restrict any use of the information to criminally investigate or prosecute any alcohol or drug abuse patient.[facility] HospitalIn the event this information is protected by the Federal Confidentiality of Alcohol and Drug Abuse Patient Records regulations: The Federal rules restrict any use of the information to criminally investigate or prosecute any alcohol or drug abuse patient.[facility] HospitalIn the event this information is protected by the Federal Confidentiality of Alcohol and Drug Abuse Patient Records regulations: The Federal rules restrict any use of the information to criminally investigate or prosecute any alcohol or drug abuse patient.[facility] HospitalIn the event this information is protected by the Federal Confidentiality of Alcohol and Drug Abuse Patient Records regulations: The Federal rules restrict any use of the information to criminally investigate or prosecute any alcohol or drug abuse patient.[facility] HospitalIn the event this information is protected by the Federal Confidentiality of Alcohol and Drug Abuse Patient Records regulations: The Federal rules restrict any use of the information to criminally investigate or prosecute any alcohol or drug abuse patient.[facility] HospitalIn the event this information is protected by the Federal Confidentiality of Alcohol and Drug Abuse Patient Records regulations: The Federal rules restrict any use of the information to criminally investigate or prosecute any alcohol or drug abuse patient.[facility] HospitalIn the event this information is protected by the Federal Confidentiality of Alcohol and Drug Abuse Patient Records regulations: The Federal rules restrict any use of the information to criminally investigate or prosecute any alcohol or drug abuse patient.[facility] HospitalIn the event this information is protected by the Federal Confidentiality of Alcohol and Drug Abuse Patient Records regulations: The Federal rules restrict any use of the information to criminally investigate or prosecute any alcohol or drug abuse patient.[facility] HospitalIn the event this information is protected by the Federal Confidentiality of Alcohol and Drug Abuse Patient Records regulations: The Federal rules restrict any use of the information to criminally investigate or prosecute any alcohol or drug abuse patient.[facility] HospitalIn the event this information is protected by the Federal Confidentiality of Alcohol and Drug Abuse Patient Records regulations: The Federal rules restrict any use of the information to criminally investigate or prosecute any alcohol or drug abuse patient.[facility] HospitalIn the event this information is protected by the Federal Confidentiality of Alcohol and Drug Abuse Patient Records regulations: The Federal rules restrict any use of the information to criminally investigate or prosecute any alcohol or drug abuse patient.[facility] HospitalIn the event this information is protected by the Federal Confidentiality of Alcohol and Drug Abuse Patient Records regulations: The Federal rules restrict any use of the information to criminally investigate or prosecute any alcohol or drug abuse patient.[facility] Care Teams (unrecognized sec tion and content) Marketing Sales Consultant Relationship Specialty Start Date End Date Indio Robledo, [email or web address].[email or web address], DNP [address] [place] [address] PCP - General Family Practice 10/11/21 Marketing Sales Consultant Relationship Specialty Start Date End Date Indio Robledo APRN.NIKKI, DNP [address] [place] [address] PCP - General Family Practice 10/11/21 Marketing Sales Consultant Relationship Specialty Start Date End Date Glenny Luque MD [address] [place] [address] PCP - General Family Medicine 08/27/22 Marketing Sales Consultant Relationship Specialty Start Date End Date Glenny Luque MD [address] [place] [address] PCP - General Family Medicine 08/27/22 Marketing Sales Consultant Relationship Specialty Start Date End Date Glenny Luque MD [address] [place] [address] PCP - General Family Medicine 08/27/22 Marketing Sales Consultant Relationship Specialty Start Date End Date Glenny Luque MD [address] [place] [address] PCP - General Family Medicine 08/27/22 Marketing Sales Consultant Relationship Specialty Start Date End Date Glenny Luque MD [address] [place] [address] PCP - General Family Medicine 08/27/22 Marketing Sales Consultant Relationship Specialty Start Date End Date Glenny Luque MD [address] [place] [address] PCP - General Family Medicine 08/27/22 Marketing Sales Consultant Relationship Specialty Start Date End Date Glenny Luque MD [address] [place] [address] PCP - General Family Medicine 08/27/22 Marketing Sales Consultant Relationship Specialty Start Date End Date Glenny Luque MD [address] [place] [address] PCP - General Family Medicine 08/27/22 Marketing Sales Consultant Relationship Specialty Start Date End Date Glenny Luque MD [address] [place] [address] PCP - General Family Medicine 08/27/22 Marketing Sales Consultant Relationship Specialty Start Date End Date Glenny Luque MD [address] [place] [address] PCP - General Family Medicine 08/27/22 Marketing Sales Consultant Relationship Specialty Start Date End Date Glenny Luque MD [address] [place] [address] PCP - General Family Medicine 08/27/22 Marketing Sales Consultant Relationship Specialty Start Date End Date Glenny Luque MD [address] [place] [address] PCP - General Family Medicine 08/27/22 Marketing Sales Consultant Relationship Specialty Start Date End Date Glenny Luque MD [address] [place] [address] PCP - General Family Medicine 08/27/22 Marketing Sales Consultant Relationship Specialty Start Date End Date Glenny Luque MD [address] [place] [address] PCP - General Family Medicine 08/27/22 Marketing Sales Consultant Relationship Specialty Start Date End Date Glenny Luque MD [address] [place] [address] PCP - General Family Medicine 08/27/22 Marketing Sales Consultant Relationship Specialty Start Date End Date Glenny Luque MD [address] [place] [address] PCP - General Family Medicine 08/27/22 Marketing Sales Consultant Relationship Specialty Start Date End Date Glenny Luque MD [address] [place] [address] PCP - General Family Medicine 08/27/22 Marketing Sales Consultant Relationship Specialty Start Date End Date Glenny Luque MD [address] [place] [address] PCP - General Family Medicine 08/27/22 Marketing Sales Consultant Relationship Specialty Start Date End Date Glenny Luque MD [address] [place] [address] PCP - General Family Medicine 08/27/22 Marketing Sales Consultant Relationship Specialty Start Date End Date Glenny Luque MD [address] [place] [address] PCP - General Family Medicine 08/27/22 Laurel Toure APRN.AUTOMOBILE TRAVEL CLUB COUNSELOR [address] [place] [address] Family Medicine 10/11/24 Hans Mccray APRN.AUTOMOBILE TRAVEL CLUB COUNSELOR [address] [place] [address] Family Medicine 10/20/24 Marketing Sales Consultant Relationship Specialty Start Date End Date Glenny Luque MD [address] [place] [address] PCP - General Family Medicine 08/27/22 aLurel Toure APRN.AUTOMOBILE TRAVEL CLUB COUNSELOR [address] [place] [address] Family [facility] 10/11/24 Hans Mccray APRN.AUTOMOBILE TRAVEL CLUB COUNSELOR [address] [place] [address] Family [facility] 10/20/24 Marketing Sales Consultant Relationship Specialty Start Date End Date Glenny Luque MD [address] [place] [address] PCP - General Family Medicine 08/27/22 Laurel Toure APRN.AUTOMOBILE TRAVEL CLUB COUNSELOR [address] [place] [address] [address] Family [facility] 10/11/24 Hans Mccray APRN.AUTOMOBILE TRAVEL CLUB COUNSELOR [address] [place] [address] [address] Family [facility] 10/20/24 Marketing Sales Consultant Relationship Specialty Start Date End Date Glenny Luque MD [address] [place] [address] PCP - General Family Medicine 08/27/22 Laurel Toure APRN.AUTOMOBILE TRAVEL CLUB COUNSELOR [address] [place] [address] Family [facility] 10/11/24 Hans Mccray APRN.AUTOMOBILE TRAVEL CLUB COUNSELOR [address] [place] [address] [address] Family [facility] 10/20/24 Marketing Sales Consultant Relationship Specialty Start Date End Date Glenny Luque MD [address] [place] [address] PCP - General Family Medicine 08/27/22 Laurel Toure APRN.AUTOMOBILE TRAVEL CLUB COUNSELOR [address] [place] [address] Family [facility] 10/11/24 Hans Mccray APRN.AUTOMOBILE TRAVEL CLUB COUNSELOR [address] [place] [address] Family [facility] 10/20/24 Marketing Sales Consultant Relationship Specialty Start Date End Date Glenny Luque MD [address] [place] [address] PCP - General Family Medicine 08/27/22 Hans Mccray APRN.AUTOMOBILE TRAVEL CLUB COUNSELOR [address] [place], [place] [address] Claims Agent Right Of Way [facility] 10/20/24 Marketing Sales Consultant Relationship Specialty Start Date End Date Glenny Luque MD [address] [place], [place] [id number] PCP - General Family Medicine 08/27/22 Hans Mccray APRN.AUTOMOBILE TRAVEL CLUB COUNSELOR [address] [place], [place] [id number] Claims Agent Right Of Way [facility] 10/20/24 Marketing Sales Consultant Relationship Specialty Start Date End Date Glenny Luque MD [address] [place], [place] [address] PCP - General Family Medicine 08/27/22 Hans Mccray APRN.AUTOMOBILE TRAVEL CLUB COUNSELOR [address] [place], [place] [id number] Claims Agent Right Of Way [facility] 10/20/24 Reason for Visit (unrecogniz ed section [...] RETROPERITONEAL REAL TIME W/IMAGE COMPLETE Hans Mccray APRN.AUTOMOBILE TRAVEL CLUB COUNSELOR [address] [place] [address] [place] [address] Referral ID Status Reason Start Date Expiration Date V isits Requested Visits Authorized [id number] Closed Auto-Generate d Referral 02/17/2024 03/18/2025 1 [...] Comments Population Health Navigation Outreach 04/07/2025 [facility] Reason Comments medical consultation form Luanne Oral S urgery INFORMATION SOURCE (unrecogn ized section and content) DATE CREATED AUTHOR 10/31/2024 Luanne [facility] [place], [place] DATE CREATED AUTHOR AUTHOR'S ORGANIZ ATION 04/30/2025 [facility] FOR RECORDS PERTAINING TO PATIENTS WHO [...] BE BASED ON THE PRIMARY CLINICAL RECORDS. [employer] provides no warranty or guarantee of the accuracy or completeness of information in this document.
[2025-05-29 16:17] LABS: Creatinine, Urine (random) 43.90 mg/dL (28.00-217.00); Urea Nitrogen, Urine 358 mg/dL (NO RANGE EST.)
--- NOTE | 2025-05-29 16:21 | PCM.HP.STD ---
[facility] - General General Date of Admission: 05/29/25 Date of Service: 05/29/25 Chief Complaint: Weakness, lightheadedness, generally feeling unwell HPI Narrative ALVARADO COHEN, is a 79-year-old female history of hypertension and renal artery stenosis presented [facility] ED 05/29/2025 with increased shortness of breath, swelling, dizziness and weakness for 4 days. Occasional dizziness with standing but denies headache. No falls or trauma and reports compliance with her antihypertensives. In the ED temp 97.8, heart rate of 68 and blood pressure 185/54, respiratory rate 18 and pulse ox 96% on room air. CBC with white blood cell count of 8.6, hemoglobin 10.2. UA not suggestive of infection, proBNP elevated at 5274 and troponin 20. CMP however revealed a sodium of 106, potassium of 3.5, chloride of 73 and BUN of 21 with a creatinine of 1.06. Glucose 121 and liver profile within normal limits. Hospitalist contacted for admission for patient's significant hyponatremia. Patient evaluated at bedside. She reports that she has been feeling a little bit unwell over the past couple of weeks and she had her cataract surgery canceled due to her hypertension so her outpatient gas distribution plant operator who she said is Dr. Nora Erazo adjusted her blood pressure medicines adding a medicine to her regimen but she does not recall the name, she did not do very well on this so Saturday that was discontinued and her hydralazine was increased from 50 mg 3 times daily to 100 mg 3 times daily that she said after that symptoms worsened. She has felt generally unwell with generalized weakness and some lightheadedness when standing. Reports she did get some swelling in her lower extremities on the medication that was added to her regimen but this is resolved since that medication was discontinued. Reports some chronic cough but she is a smoker but denies that there has been any change in cough, has been somewhat short of breath during this time period. She denies any headache or fever, has some blurry vision but said she was due for cataract surgery and it was canceled, does not note acute change. No chest pain, no new bowel changes including no diarrhea, no changes in urination reported, no abdominal pain or vomiting. Does feel slightly better at time of evaluation than she did earlier today but still feels very weak and just generally not well. Did note that she was told before that she has low sodium within the past few months but she is not sure what the number was [facility] Medical History Renal artery stenosis HTN (hypertension) Home Medications ?Medication ?Instructions ?Recorded ?Last Taken ?Type amlodipine 10 mg tablet 10 mg PO DAILY 03/21/23 05/29/25 History chlorthalidone 25 mg tablet 25 mg PO QDAY 08/27/24 05/29/25 History metoprolol succinate 50 mg 50 mg PO BID 08/27/24 05/29/25 History tablet,extended release 24 hr hydralazine 25 mg tablet 25 mg PO BID high blood pressure 10/06/24 05/29/25 History lisinopril 30 mg tablet 30 mg PO BID High blood pressure 10/06/24 05/29/25 History Allergy/AdvReac Type Severity Reaction Status Date / Time codeine Allergy PT UNSURE Verified 05/29/25 12:50 OF REACTION Sulfa (Sulfonamide Allergy Rash Verified 05/29/25 12:50 Antibiotics) (sulfa drugs) Family History Other Asthma Cancer Hypertension Surgical History H/O cone biopsy of cervix (~1977) Social History Smoking Status: Heavy Smoker (>10/day) Tobacco: How many years used: 40 quit status: considering quitting ROS ROS Narrative General: Denies fever/chills HENT: Denies headache, denies stuffy nose, denies sore throat EYES: Has some chronic blurry vision, she does not necessarily think that this is changed acutely Resp: Slight chronic cough without any change, has noted some shortness of breath Cardiac: Denies chest pain GI: Denies abdominal pain, denies acute changes in bowel, denies nausea/vomiting : Denies changes in urination Extremity: Did have swelling in ankles with blood pressure medication change but since this was stopped last week this is resolved MSK: Generalized weakness Neuro: Denies any numbness/tingling, some lightheadedness on standing Heme: Denies any bleeding or bruising Skin: Denies rashes Psychiatric: No complaints voiced Vital Signs Vital Signs Vital Signs: 05/29/25 12:48 05/29/25 14:01 05/29/25 14:04 Temperature 97.8 F Temperature Source Oral Pulse Rate 68 65 Respiratory Rate 18 Respiratory Effort Normal Non-Labored Blood Pressure 185/54 H 197/56 H Blood Pressure Mean 97 103 Pulse Ox 96 99 Oxygen Delivery Method Room Air Room Air 05/29/25 14:13 05/29/25 15:33 05/29/25 16:00 Temperature 97.8 F Temperature Source Pulse Rate 64 70 68 Respiratory Rate 13 17 13 Respiratory Effort Blood Pressure 169/54 H 186/63 H 198/61 H Blood Pressure Mean 92 104 106 Pulse Ox 97 97 97 Oxygen Delivery Method Room Air Room Air Weight Weight: 55.48 kg Body Mass Index (BMI) 21.7 Physical Exam Narrative General: Alert, slow to answer questions but does answer them, no apparent distress HEENT: Atraumatic, normocephalic Eyes: Anicteric, normal conjunctiva, extraocular movements grossly intact Neck: Supple Respiratory: Slight crackles at bilateral bases, normal respiratory effort Cardiovascular: Regular rate and rhythm GI: Soft, nontender, nondistended Extremities: No edema Musculoskeletal: Moving all extremities Neuro: No overt focal neurological deficits Skin: No rashes appreciated Psych: Cooperative Results Lab / Micro Data 05/29/25 13:25 05/29/25 14:39 Labs: Laboratory Results - last 24 hr 05/29/25 13:25: WBC 8.6, RBC 3.46 L, Hgb 10.2 L, Hct 27.1 L, MCV 78.3 L, MCH 29.5, MCHC 37.6 H, RDW Std Deviation 37.3, RDW Coeff of Cathleen 13.2, Plt Count 257, MPV 9.3, Sodium 106 L*, Potassium 3.5, Chloride 73 L*, Carbon Dioxide 21.6, Anion Gap 12, BUN 21 H, Creatinine 1.06, Estim Creat Clear Calc 36.18 L, Est GFR (MDRD) Non-Af 54 L, BUN/Creatinine Ratio 20.2 H, Glucose 121 H, Calcium 8.7, Total Bilirubin 0.44, AST 21, ALT 23, Alkaline Phosphatase 76, Troponin T High Sens 20 H, NT pro BNP II 5274 H, Total Protein 6.2, Albumin 3.9, Globulin 2.3, Albumin/Globulin Ratio 1.7 05/29/25 14:00: Urine Color Yellow, Urine Clarity Sl. Cloudy, Urine pH 7.0, Ur Specific [place] 1.010, Urine Protein 15 H, Urine Glucose (UA) Normal, Urine Ketones 5 H, Urine Occult Blood Negative, Urine Nitrite Negative, Urine Bilirubin Negative, Urine Urobilinogen Normal, Ur Leukocyte Esterase 500 H, Urine RBC 0 SEEN, Urine WBC 0-5 SEEN, Ur Squamous Epith Cells 0-5 SEEN, Urine Bacteria 0 SEEN, Urine Mucus 0 SEEN, Ur Random Sodium 84, Urine Creatinine 43.90, Urine Potassium 36.9, Urine Chloride 80, Urine Urea Nitrogen 358 05/29/25 14:39: Sodium 107 L*, Potassium 3.3, Chloride 72 L*, Carbon Dioxide 21.3, Anion Gap 14, BUN 22 H, Creatinine 1.04, Estim Creat Clear Calc 36.88 L, Est GFR (MDRD) Non-Af 55 L, BUN/Creatinine Ratio 21.1 H, Glucose 113 H, Calcium 8.4 05/29/25 15:18: Troponin T Hi Sens 2 Hr 17 H Imaging Radiology Impression Brain CT 05/29/25 13:18 IMPRESSION: 1. Generalized brain atrophy. 2. Small vessel ischemic/degenerative changes. 3. No acute intracranial hemorrhage, midline shift or mass effect. If symptoms persist, further evaluation with MRI is recommended. Reading Location: [facility] Chest X-Ray 05/29/25 13:30 IMPRESSION: Left basilar atelectasis or pneumonia. Reading Location: [facility] Assessment & Plan Assessment/Plan (1) Hyponatremia: PLAN: Plan # Severe hyponatremia of unclear chronicity - Sodium 106 in the ED but last value available was in 2023 and was 136 the patient notes she had lab work sometime in the last few months that showed somewhat low sodium but she does not know the number - Glucose within normal limits at 121 - BNP is elevated but does not have peripheral edema or appear profoundly overloaded, awaiting further workup, will obtain echo given these results -When discussed with ED physician it was felt that the may be elevated due to strain from her significant hypertension - Will check serum osmolality - Check urine studies - Will check TSH -Random cortisol - Will check lipid panel - Hold home thiazide - Trend BMP - Monitor patient in the ICU -Monitor I's and O's -Fluid restrict while awaiting lab workup and then will discuss with nephrology for further management - Chest x-ray queried left lower lobe atelectasis versus pneumonia, patient's had some shortness of breath that is merit her other symptoms but without any fever, change in cough or elevated white blood cell count, do not think presentation is consistent with pneumonia #Hypertension - Hold chlorthalidone -Given the significance of patient's hypertension we will continue the other antihypertensives while awaiting further workup, suspect chlorthalidone would have most influence on her sodium -She does note her hydralazine was just increased to 100 mg 3 times daily on Saturday # Renal artery stenosis -Has followed with Dr. Mei, unsuccessful stenting in the past -Continue outpatient follow-up #Tobacco use -Advise cessation -Nicotine replacement available if desired, presently does not want one when asked in ED #DVT ppx: Lovenox subcu Conchita Burns MD Charges/Coding Visit Charges Inpatient E&M: 16861 Init Hosp L2
[2025-05-29 16:26] LABS: CORTISOL PM 18.30 ug/dL (2.68-10.50); Cholesterol 170 mg/dL (<=200); Low Density Lipoprotein Calc. 82 mg/dL; Triglycerides 96 mg/dL; Very Low Density Lipoprotein 19 mg/dL (5-40); cholesterol:hdl ratio screen 2.49
--- OUTSIDE RECORDS SUMMARY | 2025-05-29 16:30 | XMS RPT_ITS | CCD ---
Author Organization [facility] Care Team Providers Care Bone Tender Name Role Phone Meena FINANCE INTERN.CLINICAL THERAPIST, DNP, [place] Primary Care Provider Glenny Luque [...] Porfirio Attending Unavailable Elderbrock, Glenny Referring Unavailable Hurdland, Porfirio Attending Unavailable Elderbrock, Glenny Primary Care Unavailable Ordnoez, Carissa Consulting Unavailable Hamida, Porfirio Referring Unavailable Hamida, Porfirio Consulting Unavailable Hurdland, Porfirio Attending Unavailable Elderbrock, Glenny Primary Care Unavailable Ordonez, Carissa Consulting Unavailable Hamida, Porfirio Referring Unavailable Tannhof FINANCE INTERN.Laurel JORDAN Unavailable Mahendra FINANCE INTERN.Hans JORDAN Unavailable Tannhof FINANCE INTERN.Laurel JORDAN Unavailable ELDERGLENNY CHAVIRA Primary Care Unavailable [...] sources) Codeine; Translations: [CODEINE] Drug Allergy 5 [facility] Work Phone: (20 sources) Spironolactone; Translations: [SPIRONOLACTONE] Drug Allergy 9 Other: See Comments [facility] (20 sources) Sulfonamides (Antibiotic); Translations: [SULFA (SULFONAMIDE ANTIBIOTICS)] Propensity to adverse reactions 5 [facility] Work Phone: Medications Current Medications Medication [...] tablet by lori th twice a day yr-zsh-vczjj-calciu m carb-K1 (WOMEN'S 50 PLUS MULTIVITAMIN) 400 mcg-500 mg calcium-20 mcg tab (8 sources) Start: 11-26-2024 take 1 tablet by mouth once daily om-gau-ekfya-calci um carb-K1 (WOMEN'S 50 PLUS MULTIVITAMIN) 400 [...] Value Interpretation Reference Range Devon Pope 04-22-2025 [facility] [place] Telephone (FAMWS) ALVARADO COHEN ([id number]) 1945 F Date Time Provider Department 04/22/25 GLENNY LUQUE [facility] During your visit today, we recorded the following information about you: Tiffanie Ruff MA 04/22/2025 8:56 AM Signed Type of letter/form/fax request - Medical Consultation Form Form received from fax on 1 floor and placed on MD desk (Dr. Luque) for completion. Completed form needs to be faxed to Dr. Irvin Gallo DMD, MD at [phone] [facility]. Route to [place] when form completed for processing Glenny Luque [...] Irvin Gallo DMD, MD at fax # [phone] [facility]. Shavonne Lopez RN Allergies As of Date: 04/22/2025 Noted Allergy Reaction CODEINE 09/10/2005 SPIRONOLACTONE 07/08/2019 14 - Other: See Comments Comments: lightheadedness SULFA (SULFONAMIDE ANTIBIOTICS) 09/10/2005 Date Reviewed: 03/22/2025 Reviewed by: Leeanne Sterling MA - Fully Assessed Reason for Visit: medical consultation form [Other] Cmt: [facility] Prescriptions as of 04/28/2025 - [...] and stay upright for 30 min. - mv-onl-ayqxr-calcium carb-K1 (WOMEN'S 50 PLUS MULTIVITAMIN) 400 mcg-500 [...] Status:Closed by SHAVONNE LOPEZ on 04/28/25 Normal [facility] Basic metabolic 2000 panelon 04-01-2025 Anion gap [Moles/Vol] 13 mmol/L Normal 8-15 [facility] Comment on above: Order Comment: Speci men Type: BLOOD SPECIMENOrdering Facility: [facility] Address: [address] [place] [address] Performed By: #### 2 4321-2 ####[facility] LABIA [id number] [place] [address] [place] Calcium [Mass/Vol] 9.6 mg/dL Normal 8.5-10.2 [facility] Comment on above: Order Comment: Speci men Type: BLOOD SPECIMENOrdering Facility: [facility] Address: [address] [place] [address] Performed By: #### 2 4321-2 ####[facility] LABIA [id number] [place] [id number] [place] Chloride [Moles/Vol] 96 mmol/L Low 98-107 [facility] Comment on above: Order Comment: Speci men Type: BLOOD SPECIMENOrdering Facility: [facility] Address: [address] [place] [address] Performed By: #### 2 4321-2 ####[facility] LABCLIA [id number] [address] [address] [place] CO2 [Moles/Vol] 22 mmol/L Normal 22-30 [facility] Comment on above: Order Comment: Speci men Type: BLOOD SPECIMENOrdering Facility: [facility] Address: [address] [place] [address] Performed By: #### 2 4321-2 ####[facility] LABCLIA [id number] [address] [place] [address] [place] Creatinine [Mass/Vol] 1.03 mg/dL High 0.58-0.96 [facility] Comment on above: Order Comment: Speci men Type: BLOOD SPECIMENOrdering Facility: [facility] Address: [facility] [place] [address] Performed By: #### 2 4321-2 ####[facility] LABCLIA [id number] [address] [place] [address] [place] Creatinine and Glomerular filtration rate.predicted panel (S/P/Bld) 56 mL/min/1.73m??? Low >=60 [facility] Comment on above: Order Comment: Speci men Type: BLOOD SPECIMENOrdering Facility: [facility] Address: [facility] [place] [address] Result Comment: Madisyn mated Glomerular Filtration Rate [...] actual GFR. Performed By: #### 2 4321-2 ####[facility] LABCLIA [id number] [address] [place] [address] [place] Glucose [Mass/Vol] 72 mg/dL Low 74-99 [facility] Comment on above: Order Comment: Alex billy Type: BLOOD SPECIMENOrdering Facility: [facility] Address: [address] [place] [address] Result Comment: [place] Diabetes Association (ADA) provides guidance for cutoff [...] Standards of Medical Care in Diabetes 2016, [place] Diabetes Association. Diabetes Care. 2016.39(Suppl 1). Performed By: #### 2 4321-2 ####[facility] LABCLIA [id number] [address] [address] [place] Potassium [Moles/Vol] 4.5 mmol/L Normal 3.7-5.1 [facility] Comment on above: Order Comment: Alex billy Type: BLOOD SPECIMENOrdering Facility: [facility] Address: [facility] [place] [address] Performed By: #### 2 4321-2 ####[facility] LABCLIA [id number] [address] [address] [place] Sodium [Moles/Vol] 131 mmol/L Low 136-144 [facility] Comment on above: Order Comment: Alex mariajose Type: BLOOD SPECIMENOrdering Facility: [facility] Address: [facility] [place] [address] Performed By: #### 2 4321-2 ####[facility] LABCLIA [id number] [facility] [address] [address] [place] Urea nitrogen [Mass/Vol] 27 mg/dL High 7-21 [facility] Comment on above: Order Comment: Speci men Type: BLOOD SPECIMENOrdering Facility: [facility] Nephrology Services [facility] Address: [address] [place] [address] Performed By: #### 2 4321-2 ####[facility] LABCLDEWEY [id number] VAHID ALVARADO [address] STATES OF [facility] CNOVon 03-22-2025 CNOV Office Visit (FAMPWS ) ALVARADO COHEN ([id number]) 1945 F Date Time Provider Department 03/22/25 3:20 PM GLENNY LUQUE [facility] During your visit today, we recorded [...] tablet by mouth three times a day. sy-azo-bjkxn-calcium carb-K1 (WOMEN'S 50 PLUS MULTIVITAMIN) 400 mcg-500 [...] C Screening (more content not included)... Normal [facility] Basic metabolic 2000 panelon 02-22-2025 Anion gap [Moles/Vol] 10 mmol/L Normal 8-15 [facility] Comment on above: Order Comment: Speci mariajose Type: BLOOD SPECIMENOrdering Facility: [facility] Ne[facility] Address: [facility] [place] [address] Performed By: #### 2 4321-2 ####[facility] LABCLIA [id number] [place] [address] [place] Calcium [Mass/Vol] 9.3 mg/dL Normal 8.5-10.2 [facility] Comment on above: Order Comment: Speci men Type: BLOOD SPECIMENOrdering Facility: [facility] Address: [address] [place] [address] Performed By: #### 2 4321-2 ####[facility] LABCLIA [id number] [address] [address] [place] Chloride [Moles/Vol] 95 mmol/L Low 98-107 [facility] Comment on above: Order Comment: Speci men Type: BLOOD SPECIMENOrdering Facility: [facility] Address: [address] [place] [address] Performed By: #### 2 4321-2 ####[facility] LABCLIA [id number] [facility] [place] [id number] [place] CO2 [Moles/Vol] 24 mmol/L Normal 22-30 [facility] Comment on above: Order Comment: Speci men Type: BLOOD SPECIMENOrdering Facility: [facility] Address: [address] [place] [address] Performed By: #### 2 4321-2 ####[facility] LABCLIA [id number] [place] [address] [place] Creatinine [Mass/Vol] 0.98 mg/dL High 0.58-0.96 [facility] Comment on above: Order Comment: Speci men Type: BLOOD SPECIMENOrdering Facility: [facility] Address: [address] [place] [address] Performed By: #### 2 4321-2 ####[facility] LABCLIA [id number] [facility] [address] [address] [place] Creatinine and Glomerular filtration rate.predicted panel (S/P/Bld) 59 mL/min/1.73m??? Low >=60 [facility] Comment on above: Order Comment: Speci men Type: BLOOD SPECIMENOrdering Facility: [facility] Address: [address] [place] [address] Result Comment: Madisyn mated Glomerular Filtration Rate [...] actual GFR. Performed By: #### 2 4321-2 ####[facility] LABIA [id number] [address] [address] [place] Glucose [Mass/Vol] 88 mg/dL Normal 74-99 [facility] Comment on above: Order Comment: Alex billy Type: BLOOD SPECIMENOrdering Facility: [facility] Address: [facility] [address] [place] [id number] Result Comment: The [place] Diabetes Association (ADA) provides guidance for cutoff [...] Standards of Medical Care in Diabetes 2016, [place] Diabetes Association. Diabetes Care. 2016.39(Suppl 1). Performed By: #### 2 4321-2 ####[facility] LABIA [id number] [address] [address] [place] Potassium [Moles/Vol] 4.2 mmol/L Normal 3.7-5.1 [facility] Comment on above: Order Comment: Alex billy Type: BLOOD SPECIMENOrdering Facility: [facility] Address: [address] [place] [id number] Performed By: #### 2 4321-2 ####[facility] LABCLIA [id number] [address] [address] [place] Sodium [Moles/Vol] 129 mmol/L Low 136-144 [facility] Comment on above: Order Comment: Speci men Type: BLOOD SPECIMENOrdering Facility: [facility] Address: [address] [place] [address] Performed By: #### 2 4321-2 ####[facility] LABCLIA [id number] [address] [place] [address] [place] Urea nitrogen [Mass/Vol] 23 mg/dL High 7-21 [facility] Comment on above: Order Comment: Speci men Type: BLOOD SPECIMENOrdering Facility: [facility] Address: [place] [address] Performed By: #### 2 4321-2 ####[facility] LABIA [id number] [address] [address] [place] BD DXA - AXIAL SKELETONon BD DXA - AXIAL SKELETON * * *Final Report* * * DATE OF EXAM: Jan 01 2025 12:46PM [facility] 0804 - BD DXA - AXIAL SKELETON / PROCEDURE REASON: Age-related osteoporosis without current pathological fracture * * * * Physician Interpretation * * * * EXAMINATION: DXA BONE DENSITOMETRY BD DXA - AXIAL SKELETON, BD DXA TRABECLR BONE SCORE (TBS) PATIENT DEMOGRAPHICS: Age: 79 years, Gender: Female SCANNER INFORMATION: DXA Model: [employer] C 26595 Date Scanned: 01/01/2025 12:46 PM CLINICAL HISTORY: [...] FOR MORE INFORMATION ABOUT DIAGNOSIS AND TREATMENT: [facility] Osteoporosis and Metabolic Bone Disease:? www.ccf.org/arthritis/ osteo National Osteoporosis Foundation:? www.nof.org International Society of Clinical Densitometry www.iscd.org Service Unit Operator: ALEX Transcribe Date/Time: Jan 04 2025 11:04A Dictated by : MILO GONZALEZ MD This examination was interpreted and the report reviewed and electronically signed by: MILO GONZALEZ MD on Jan 04 2025 11:06AM EST [id number] -3.0 Normal [facility] BD DXA TRABECLR BONE SCORE ( TBS)on 01-01-2025 BD DXA TRABECLR BONE SCORE (TBS) * * *Final Report* * * DATE OF EXAM: Jan 01 2025 12:46PM [facility] 0801 - BD DXA TRABECLR BONE SCORE (TBS) / PROCEDURE REASON: Age-related osteoporosis without current pathological fracture * * * * Physician Interpretation * * * * EXAMINATION: DXA BONE DENSITOMETRY BD DXA - AXIAL SKELETON, BD DXA TRABECLR BONE SCORE (TBS) PATIENT DEMOGRAPHICS: Age: 79 years, Gender: Female SCANNER INFORMATION: DXA Model: [employer] C 26406 Date Scanned: 01/01/2025 12:46 PM CLINICAL HISTORY: [...] FOR MORE INFORMATION ABOUT DIAGNOSIS AND TREATMENT: [facility] Osteoporosis and Metabolic Bone Disease:? www.ccf.org/arthritis/ osteo National Osteoporosis Foundation:? www.nof.org International Society of Clinical Densitometry www.iscd.org Service Unit Operator: ALEX Transcribe Date/Time: Jan 04 2025 11:04A Dictated by : MILO GONZALEZ MD This examination was interpreted and the report reviewed and electronically signed by: MILO GONZALEZ MD on Jan 04 2025 11:06AM EST [id number] -3.0 Normal [facility] CBC W Auto Differential pane l (Bld)on 12-09-2024 Basophils (Bld) [#/Vol] 0.08 10*3/uL Normal <0.11 [facility] Comment on above: Order Comment: Speci men Type: BLOOD SPECIMENOrdering Facility: [facility] Address: [address] [place] [address] Performed By: #### 5 7021-8 ####[facility] LABCLIA [id number] [place] [address] [place] Basophils/100 WBC (Bld) 0.9 % Normal [facility] Comment on above: Order Comment: Speci men Type: BLOOD SPECIMENOrdering Facility: [facility] Address: [address] [place] [address] Performed By: #### 5 7021-8 ####[facility] LABCLIA [id number] [place] [address] [place] Differential cell count method Nom (Bld) Auto Normal [facility] Comment on above: Order Comment: Speci men Type: BLOOD SPECIMENOrdering Facility: [facility] Address: [address] [place] [address] Performed By: #### 5 7021-8 ####[facility] LABCLIA [id number] [place] [address] [place] Eosinophils (Bld) [#/Vol] 0.25 10*3/uL Normal <0.46 [facility] Comment on above: Order Comment: Speci men Type: BLOOD SPECIMENOrdering Facility: [facility] Address: [address] [place] [address] Performed By: #### 5 7021-8 ####[facility] LABCLIA [id number] [place] [address] [place] Eosinophils/100 WBC (Bld) 2.8 % Normal [facility] Comment on above: Order Comment: Speci men Type: BLOOD SPECIMENOrdering Facility: [facility] Address: [address] [place] [address] Performed By: #### 5 7021-8 ####[facility] LABCLIA [id number] [place] [address] [place] Erythrocyte distribution width (RBC) [Ratio] 14.6 % Normal 11.5-15.0 [facility] Comment on above: Order Comment: Speci men Type: BLOOD SPECIMENOrdering Facility: [facility] Address: [address] [place] [address] Performed By: #### 5 7021-8 ####[facility] LABCLIA [id number] [place] [address] [place] Hematocrit (Bld) [Volume fraction] 36.5 % Normal 36.0-46.0 [facility] Comment on above: Order Comment: Speci men Type: BLOOD SPECIMENOrdering Facility: [facility] Address: [address] [place] [address] Performed By: #### 5 7021-8 ####[facility] LABCLIA [id number] [place] [address] [place] Hemoglobin (Bld) [Mass/Vol] 11.9 g/dL Normal 11.5-15.5 [facility] Comment on above: Order Comment: Speci men Type: BLOOD SPECIMENOrdering Facility: [facility] Address: [address] [place] [address] Performed By: #### 5 7021-8 ####[facility] LABCLIA [id number] [place] [address] [place] Immature granulocytes (Bld) [#/Vol] 10*3/uL Normal <0.10 [facility] Comment on above: Order Comment: Speci men Type: BLOOD SPECIMENOrdering Facility: [facility] Address: [address] [place] [address] Performed By: #### 5 7021-8 ####[facility] LABCLIA [id number] [place] [address] [place] Immature granulocytes/100 WBC (Bld) 0.2 % Normal [facility] Comment on above: Order Comment: Speci men Type: BLOOD SPECIMENOrdering Facility: [facility] Address: [address] [place] [address] Performed By: #### 5 7021-8 ####[facility] LABCLIA [id number] [place] [address] [place] Lymphocytes (Bld) [#/Vol] 1.66 10*3/uL Normal 1.00-4.00 [facility] Comment on above: Order Comment: Speci men Type: BLOOD SPECIMENOrdering Facility: [facility] Address: [address] [place] [address] Performed By: #### 5 7021-8 ####[facility] LABCLIA [id number] [place] [address] [place] Lymphocytes/100 WBC (Bld) 18.6 % Normal [facility] Comment on above: Order Comment: Speci men Type: BLOOD SPECIMENOrdering Facility: [facility] Address: [address] [place] [address] Performed By: #### 5 7021-8 ####[facility] LABCLIA [id number] [place] [address] [place] MCH (RBC) [Entitic mass] 29.0 pg Normal 26.0-34.0 [facility] Comment on above: Order Comment: Speci men Type: BLOOD SPECIMENOrdering Facility: [facility] Address: [address] [place] [address] Performed By: #### 5 7021-8 ####[facility] LABCLIA [id number] [place] [address] [place] MCHC (RBC) [Mass/Vol] 32.6 g/dL Normal 30.5-36.0 [facility] Comment on above: Order Comment: Speci men Type: BLOOD SPECIMENOrdering Facility: [facility] Address: [address] [place] [address] Performed By: #### 5 7021-8 ####[facility] LABCLIA [id number] [place] [address] [place] MCV (RBC) [Entitic vol] 88.8 fL Normal 80.0-100.0 [facility] Comment on above: Order Comment: Speci men Type: BLOOD SPECIMENOrdering Facility: [facility] Address: [address] [place] [address] Performed By: #### 5 7021-8 ####[facility] LABCLIA [id number] [place] [address] [place] Monocytes (Bld) [#/Vol] 0.85 10*3/uL Normal <0.87 [facility] Comment on above: Order Comment: Speci men Type: BLOOD SPECIMENOrdering Facility: [facility] Address: [address] [place] [address] Performed By: #### 5 7021-8 ####[facility] LABCLIA [id number] [place] [address] [place] Monocytes/100 WBC (Bld) 9.5 % Normal [facility] Comment on above: Order Comment: Speci men Type: BLOOD SPECIMENOrdering Facility: [facility] Address: [address] [place] [address] Performed By: #### 5 7021-8 ####[facility] LABCLIA [id number] [place] [address] [place] Neutrophils (Bld) [#/Vol] 6.06 10*3/uL Normal 1.45-7.50 [facility] Comment on above: Order Comment: Speci men Type: BLOOD SPECIMENOrdering Facility: [facility] Address: [address] [place] [address] Performed By: #### 5 7021-8 ####[facility] LABCLIA [id number] [place] [address] [place] Neutrophils/100 WBC (Bld) 68.0 % Normal [facility] Comment on above: Order Comment: Speci men Type: BLOOD SPECIMENOrdering Facility: [facility] Address: [address] [place] [address] Performed By: #### 5 7021-8 ####[facility] LABCLIA [id number] [place] [address] [place] Nucleated RBC (Bld) [#/Vol] 10*3/uL Normal <0.01 [facility] Comment on above: Order Comment: Speci men Type: BLOOD SPECIMENOrdering Facility: [facility] Address: [address] [place] [address] Performed By: #### 5 7021-8 ####[facility] LABCLIA [id number] [place] [address] [place] Nucleated RBC/100 WBC (Bld) [Ratio] 0.0 /100 WBC Normal [facility] Comment on above: Order Comment: Speci men Type: BLOOD SPECIMENOrdering Facility: [facility] Address: [address] [place] [address] Performed By: #### 5 7021-8 ####[facility] LABCLIA [id number] [place] [address] [place] Platelet mean volume (Bld) [Entitic vol] 9.9 fL Normal 9.0-12.7 [facility] Comment on above: Order Comment: Speci men Type: BLOOD SPECIMENOrdering Facility: [facility] Address: [address] [place] [address] Performed By: #### 5 7021-8 ####[facility] LABCLIA [id number] [place] [address] [place] Platelets (Bld) [#/Vol] 345 10*3/uL Normal 150-400 [facility] Comment on above: Order Comment: Speci men Type: BLOOD SPECIMENOrdering Facility: [facility] Address: [address] [place] [address] Performed By: #### 5 7021-8 ####[facility] LABCLIA [id number] [place] [address] [place] RBC (Bld) [#/Vol] 4.11 10*6/uL Normal 3.90-5.20 [facility] Comment on above: Order Comment: Speci men Type: BLOOD SPECIMENOrdering Facility: [facility] Address: [address] [place] [address] Performed By: #### 5 7021-8 ####[facility] LABCLIA [id number] [place] [address] [place] WBC (Bld) [#/Vol] 8.92 10*3/uL Normal 3.70-11.00 [facility] Comment on above: Order Comment: Speci men Type: BLOOD SPECIMENOrdering Facility: [facility] Address: [address] [place] [address] Performed By: #### 5 7021-8 ####[facility] LABCLIA [id number] [place] [address] [place] Comprehensive metabolic 2000 panelon 12-09-2024 Albumin [Mass/Vol] 4.4 g/dL Normal 3.9-4.9 [facility] Comment on above: Order Comment: Speci men Type: BLOOD SPECIMENOrdering Facility: [facility] Address: [address] [place] [address] Performed By: #### 2 4323-8, 70960-0 ####[facility] LABCLIA [id number] [place] [address] [place] ALP [Catalytic activity/Vol] 90 U/L Normal 34-123 [facility] Comment on above: Order Comment: Speci men Type: BLOOD SPECIMENOrdering Facility: [facility] Address: [address] [place] [address] Performed By: #### 2 4323-8, 46589-5 ####[facility] LABCLIA [id number] [address] [id number] [address] [place] ALT [Catalytic activity/Vol] 21 U/L Normal 7-38 [facility] Comment on above: Order Comment: Speci men Type: BLOOD SPECIMENOrdering Facility: [facility] Address: [address] [id number] Performed By: #### 2 4323-8, 77147-7 ####[facility] LABCLIA [id number] [place] [address] [place] Anion gap [Moles/Vol] 11 mmol/L Normal 8-15 [facility] Comment on above: Order Comment: Speci men Type: BLOOD SPECIMENOrdering Facility: [facility] Address: [address] [place] [address] Performed By: #### 2 4323-8, 03651-2 ####[facility] LABCLIA [id number] [place] [address] [place] AST [Catalytic activity/Vol] 18 U/L Normal 13-35 [facility] Comment on above: Order Comment: Speci men Type: BLOOD SPECIMENOrdering Facility: [facility] Address: [address] [place] [address] Performed By: #### 2 4323-8, 76865-3 ####[facility] LABCLIA [id number] [place] [address] [place] Bilirubin [Mass/Vol] 0.3 mg/dL Normal 0.2-1.3 [facility] Comment on above: Order Comment: Speci men Type: BLOOD SPECIMENOrdering Facility: [facility] Address: [address] [id number] Performed By: #### 2 4323-8, 69564-2 ####[facility] LABCLIA [id number] [place] [id number] [place] Calcium [Mass/Vol] 9.5 mg/dL Normal 8.5-10.2 [facility] Comment on above: Order Comment: Speci men Type: BLOOD SPECIMENOrdering Facility: [facility] Address: [address] [place] [address] Performed By: #### 2 4323-8, 55628-9 ####[facility] LABCLIA [id number] [place] [address] [place] Chloride [Moles/Vol] 95 mmol/L Low 98-107 [facility] Comment on above: Order Comment: Speci men Type: BLOOD SPECIMENOrdering Facility: [facility] Address: [address] [place] [address] Performed By: #### 2 4323-8, 14255-1 ####[facility] LABCLIA [id number] [place] [address] [place] CO2 [Moles/Vol] 23 mmol/L Normal 22-30 [facility] Comment on above: Order Comment: Speci men Type: BLOOD SPECIMENOrdering Facility: [facility] Address: [address] [place] [address] Performed By: #### 2 4323-8, 11413-3 ####[facility] LABCLIA [id number] [place] [address] [place] Creatinine [Mass/Vol] 1.11 mg/dL High 0.58-0.96 [facility] Comment on above: Order Comment: Speci men Type: BLOOD SPECIMENOrdering Facility: [facility] Address: [address] [place] [address] Performed By: #### 2 4323-8, 19576-1 ####[facility] LABCLIA [id number] [place] [address] [place] Creatinine and Glomerular filtration rate.predicted panel (S/P/Bld) 51 mL/min/1.73m??? Low >=60 [facility] Comment on above: Order Comment: Speci men Type: BLOOD SPECIMENOrdering Facility: [facility] Address: [address] [place] [address] Result Comment: Madisyn mated Glomerular Filtration Rate [...] actual GFR. Performed By: #### 2 4323-8, 54133-1 ####[facility] LABIA [id number] [place] [address] [place] Glucose [Mass/Vol] 89 mg/dL Normal 74-99 [facility] Comment on above: Order Comment: Speci men Type: BLOOD SPECIMENOrdering Facility: [facility] Address: [address] [place] [address] Result Comment: The [place] Diabetes Association (ADA) provides guidance for cutoff [...] Standards of Medical Care in Diabetes 2016, [place] Diabetes Association. Diabetes Care. 2016.39(Suppl 1). Performed By: #### 2 4323-8, 60348-0 ####[facility] LABIA [id number] [place] [address] [place] Potassium [Moles/Vol] 4.6 mmol/L Normal 3.7-5.1 [facility] Comment on above: Order Comment: Jorgei men Type: BLOOD SPECIMENOrdering Facility: [facility] Address: [address] [place] [address] Performed By: #### 2 4323-8, 57849-3 ####[facility] LABIA [id number] [place] [address] [place] Protein [Mass/Vol] 7.2 g/dL Normal 6.3-8.0 [facility] Comment on above: Order Comment: Speci men Type: BLOOD SPECIMENOrdering Facility: [facility] Address: [address] [place] [address] Performed By: #### 2 4323-8, 71067-5 ####[facility] LABCLIA [id number] [place] [address] [place] Sodium [Moles/Vol] 129 mmol/L Low 136-144 [facility] Comment on above: Order Comment: Speci men Type: BLOOD SPECIMENOrdering Facility: [facility] Address: [address] [place] [address] Performed By: #### 2 4323-8, 91551-0 ####[facility] LABCLIA [id number] [place] [address] [place] Urea nitrogen [Mass/Vol] 25 mg/dL High 7-21 [facility] Comment on above: Order Comment: Speci men Type: BLOOD SPECIMENOrdering Facility: [facility] Address: [address] [place] [address] Performed By: #### 2 4323-8, 81503-8 ####[facility] LABCLIA [id number] [place] [address] [place] Lipid 1996 panelon 5 Cholesterol [Mass/Vol] 192 mg/dL Normal <200 [facility] Comment on above: Order Comment: Speci men Type: BLOOD SPECIMENOrdering Facility: [facility] Address: [address] [place] [address] Result Comment: <200 mg/dL, Desirable 200-239 mg/dL, Borderline high >239 mg/dL, High Performed By: #### 2 4323-8, 42803-4 ####[facility] LABCLIA [id number] [place] [address] [place] Cholesterol in HDL [Mass/Vol] 83 mg/dL Normal >39 [facility] Comment on above: Order Comment: Alex billy Type: BLOOD SPECIMENOrdering Facility: [facility] Address: [address] [place] [address] Result Comment: 40-5 9 mg/dL, Acceptable >59 mg/dL, High: Negative risk factor for coronary heart disease <40 mg/dL, Low: Positive risk factor for coronary heart disease Performed By: #### 2 4323-8, 90865-5 ####[facility] LABCLIA [id number] [address] Cholesterol in LDL [Mass/Vol] 93 mg/dL Normal <100 [facility] Comment on above: Order Comment: Jorgebernadine billy Type: BLOOD SPECIMENOrdering Facility: [facility] Address: [address] [place] [address] Result Comment: <100 mg/dL, Optimal 100-129 mg/dL, Near optimal/above optimal 130-159 mg/dL, Borderline high 160-189 mg/dL, High >189 mg/dL, Very high Secondary prevention optimal LDL Cholesterol levels are recommended to be < 70 mg/dL Performed By: #### 2 4323-8, 89253-4 ####[facility] LABCLIA [id number] [address] Cholesterol in LDL/Cholesterol in HDL [Mass ratio] 1.12 {ratio} Normal <2.54 [facility] Comment on above: Order Comment: Alex billy Type: BLOOD SPECIMENOrdering Facility: [facility] Address: [address] [place] [address] Result Comment: Refe rence: 1. National Cholesterol Education Program ATP III Guideline At-A-Glance Quick Desk Reference: National Heart, Lung, and Blood [place]. National Institutes of Health. 2001: NIH Publication No. 01-3305. 2. An International Atherosclerosis Society position paper: global recommendations for the management of dyslipidemia: executive summary, Atherosclerosis. 2014: 232(2):410-413. Performed By: #### 2 4323-8, 95695-3 ####[facility] LABCLIA [id number] [address] [address] [place] Cholesterol in VLDL [Mass/Vol] 16 mg/dL Normal <30 [facility] Comment on above: Order Comment: Speci men Type: BLOOD SPECIMENOrdering Facility: [facility] Address: [address] [place] [address] Performed By: #### 2 4323-8, 47354-4 ####[facility] LABCLIA [id number] [place] [address] [place] Cholesterol non HDL [Mass/Vol] 109 mg/dL Normal <130 [facility] Comment on above: Order Comment: Speci men Type: BLOOD SPECIMENOrdering Facility: [facility] Address: [address] [place] [address] Result Comment: <130 mg/dL, Optimal 130-159 mg/dL, Near optimal/above optimal 160-189 mg/dL, Borderline high 190-219 mg/dL, High >219 mg/dL, Very high Secondary prevention optimal non HDL Cholesterol levels are recommended to be <100 mg/dL Performed By: #### 2 4323-8, 44648-2 ####[facility] LABCLIA [id number] [place] [address] [place] Cholesterol.total/C holesterol in HDL [Mass ratio] 2.31 {ratio} Normal <5.10 [facility] Comment on above: Order Comment: Speci men Type: BLOOD SPECIMENOrdering Facility: [facility] Address: [address] [id number] Performed By: #### 2 4323-8, 24142-5 ####[facility] LABCLIA [id number] [place] [address] [place] FASTING TIME 12 hrs Normal [facility] Comment on above: Order Comment: Speci men Type: BLOOD SPECIMENOrdering Facility: [facility] Address: [address] [place] [address] Performed By: #### 2 4323-8, 39794-6 ####[facility] LABCLIA [id number] [place] [address] [place] Triglyceride [Mass/Vol] 79 mg/dL Normal <150 [facility] Comment on above: Order Comment: Speci men Type: BLOOD SPECIMENOrdering Facility: [facility] Address: [address] [place] [address] Result Comment: <150 mg/dL, Normal 150-199 mg/dL, Borderline high 200-499 mg/dL, High >499 mg/dL, Very high Performed By: #### 2 4323-8, 73198-8 ####[facility] LABCLIA [id number] [place] [address] [place] CNOVon 11-26-2024 CNOV Office Visit (FAMPWS ) ALVARADO COHEN ([id number]) 1945 F Date Time Provider Department 11/26/24 1:20 PM [facility]EN[facility] During your visit today, we recorded the [...] General (Family Medicine) Laurel Toure APRN.NIKKI as Solar Designer (Family Medicine) Hans Mccray APRN.NIKKI as Solar Designer (Family Medicine) Porfirio Mei MD - Vascular [...] 22.18 k (more content not included)... Normal [facility] MR/BMS.[place] 10-21-2024 MR/BMS.EMORY [facility] Vascular Surgery [address] [place] [address] OFFICE VISIT Date of Service: 10/21/24 MR#: [id number] Acct: [id number] Name: ALVARADO COHEN CALLI Rep #: [id number] : 1945 Provider: ERIC Post Age/Sex: 79/F [place] [facility] Status: Signed Intake Vital Signs 03/21/23 17:53 [...] Yes dise (more content not included)... Normal [facility] ACT Activated Clotting Timeo n 10-07-2024 ACTk CLOT TIME 204 sec High 74-137 [facility] Comment on above: Performed By: #### L 9100.0100 #### [facility] [address] [place], [address] Basic Metabolic Profile (BMP )on 10-07-2024 BUN/CRE 23.9 RATIO High 10-20 [facility] Comment on above: Performed By: #### L 100.0500, BTSPAT, L500.2500 #### [facility] [address] [place], [address] CA,Total 9.3 mg/dL Normal 8.5-10.1 [facility] Comment on above: Performed By: #### L 100.0500, BTSPAT, L500.2500 #### [facility] [address] [place], [address] Chloride [Moles/Vol] 106 mmol/L Normal 98-107 [facility] Comment on above: Performed By: #### L 100.0500, BTSPAT, L500.2500 #### [facility] [address] [place], [address] CO2 [Moles/Vol] 25.0 mmol/L Normal 21.0-32.0 [facility] Comment on above: Performed By: #### L 100.0500, BTSPAT, L500.2500 #### [facility] [address] [place], [address] Creatinine [Mass/Vol] 1.13 mg/dL High 0.55-1.02 [facility] Comment on above: Result Comment: The validity of the calculated GFR GFRAA in patients over 70 years has not been determined. Clinical correlation is essential. Performed By: #### L 100.0500, BTSPAT, L500.2500 #### [facility] [address] [place], [address] ECRCL 33.94 ml/min Normal [facility] Comment on above: Performed By: #### L 100.0500, BTSPAT, L500.2500 #### [facility] [address] [place], [address] EST GFR - AA 60 mL/min Normal >60 [facility] Comment on above: Result Comment: Afri can [place] GFR Calc Performed By: #### L 100.0500, BTSPAT, L500.2500 #### [facility] [address] [place], [address] GAP 5 Normal 5-15 [facility] Comment on above: Performed By: #### L 100.0500, BTSPAT, L500.2500 #### [facility] [address] [place], [address] GFR/1.73 sq M.predicted among non-blacks MDRD (S/P/Bld) [Vol rate/Area] 50 mL/min/{1.73_m2} Low >60 [facility] Comment on above: Result Comment: Non- GFR Calc Performed By: #### L 100.0500, BTSPAT, L500.2500 #### [facility] [address] [place], [address] Glucose [Mass/Vol] 104 mg/dL Normal 74-106 [facility] Comment on above: Result Comment: Fast ing Glucose result from 100 to 125 mg/dL suggests IMPAIRED HOMEOSTASIS per A.D.A. criteria. Performed By: #### L 100.0500, BTSPAT, L500.2500 #### [facility] [address] [place], [address] Potassium [Moles/Vol] 4.2 mmol/L Normal 3.5-5.1 [facility] Comment on above: Performed By: #### L 100.0500, BTSPAT, L500.2500 #### [facility] [address] [place], [address] Sodium [Moles/Vol] 136 mmol/L Normal 136-145 [facility] Comment on above: Performed By: #### L 100.0500, BTSPAT, L500.2500 #### [facility] [address] [place], [address] Urea nitrogen [Mass/Vol] 27 mg/dL High 7-18 [facility] Comment on above: Performed By: #### L 100.0500, BTSPAT, L500.2500 #### [facility] [address] [place], [address] CBC-Complete Blood Cnt No ffon 10-07-2024 Erythrocyte distribution width (RBC) [Ratio] 14.5 % Normal 11.6-14.6 [facility] Comment on above: Performed By: #### L 100.0500, BTSPAT, L500.2500 #### [facility] [address] [place], [address] Hematocrit (Bld) [Volume fraction] 35.6 % Low 37-47 [facility] Comment on above: Performed By: #### L 100.0500, BTSPAT, L500.2500 #### [facility] [address] [place], [address] Hemoglobin (Bld) [Mass/Vol] 11.8 g/dL Low 12.0-15.0 [facility] Comment on above: Performed By: #### L 100.0500, BTSPAT, L500.2500 #### [facility] [address] [place], [address] MCH (RBC) [Entitic mass] 29.7 pg Normal 27.0-32.0 [facility] Comment on above: Performed By: #### L 100.0500, BTSPAT, L500.2500 #### [facility] [address] [place], [address] MCHC (RBC) [Mass/Vol] 33.1 g/dL Normal 32-36 [facility] Comment on above: Performed By: #### L 100.0500, BTSPAT, L500.2500 #### [facility] [address] [place], [address] MCV (RBC) [Entitic vol] 89.7 fL Normal 81-99 [facility] Comment on above: Performed By: #### L 100.0500, BTSPAT, L500.2500 #### [facility] [address] [place], [address] Platelet mean volume (Bld) [Entitic vol] 9.0 fL Normal 6.2-12.0 [facility] Comment on above: Performed By: #### L 100.0500, BTSPAT, L500.2500 #### [facility] [address] [place], [address] Platelets (Bld) [#/Vol] 273 10*3/uL Normal 150-450 [facility] Comment on above: Performed By: #### L 100.0500, BTSPAT, L500.2500 #### [facility] [address] [place], [address] RBC (Bld) [#/Vol] 3.97 10*6/uL Low 4.2-5.4 [facility] Comment on above: Performed By: #### L 100.0500, BTSPAT, L500.2500 #### [facility] [address] [place], [address] RDW SD 47.9 fl High 35.1-43.9 [facility] Comment on above: Performed By: #### L 100.0500, BTSPAT, L500.2500 #### [facility] [address] [place], [address] WBC (Bld) [#/Vol] 11.5 10*3/uL High 4.4-11.0 [facility] Comment on above: Performed By: #### L 100.0500, BTSPAT, L500.2500 #### [facility] [address] [place], [address] Operative Reporton 4 Operative Report [facility] Medical Records Department [address] [place] [address] Operative Report 10/07/24 1631 MR#: [id number] Acct: [id number] Name: ALVARADO COHEN Rep #: [id number] : 1945 79 From: Porfirio Mei MD PCP: Dr. Glenny Luque MD Status:[facility] [place] [place] Location: [facility] Operative Report (Standard) [...] procedure site patient was taken to the Photo Mask Cleaner where she was positioned prepped and draped [...] micropuncture sheath exchanged for a short 5 [place] sheath. Through the 5 [place] sheath we attempted to navigate into the [...] sheath were then exchanged for a 6 [place] Halo sheath which was advanced over the wire and positioned in the visceral segment of the aorta. Using a multitude of wi (more content not included)... Normal [facility] Type AND Screen - PAT ONLYon 10-07-2024 ABO and Rh group Nom (Bld) Blood group A Rh(D) positive Normal [facility] Comment on above: Order Comment: No N N S AORTAGRAM Performed By: #### L 100.0500, BTSPAT, L500.2500 #### [facility] [address] [place], [place], [id number] [facility] SCREENINGon 09-25-2024 [facility] SCREENING * * *Final Report* * * DATE OF EXAM: Sep 25 2024 1:07PM [id number] - [facility] SCREENING / PROCEDURE REASON: Visit for screening mammogram * * * * Physician Interpretation * * * * RESULT: [address] [address] [place] [address] #[id number] - [facility] SCREENING HISTORY: [...] Umu Cade M.D. Electronically signed on: 09/28/2024 Service Unit Operator: MIHIR Transcribe Date/Time: Sep 25 2024 12:52P Dictated by: UMU CADE MD This examination was interpreted and the report reviewed and electronically signed by: UMU CADE MD on Sep 28 2024 4:50PM EST [id number] Normal [facility] MR/BMS.BVSon 08-27-2024 MR/BMS.[facility] Vascular Surgery [address] [place] [address] OFFICE VISIT Date of Service: 08/27/24 MR#: [id number] Acct: [id number] Name: ALVARADO COHEN Rep #: [id number] : 1945 Provider: Dr. Porfirio Mei MD Age/Sex: 79/F Location: [facility] Status: Signed Intake Vital Signs 03/21/23 17:53 [...] ROM and (more content not included)... [facility] Office Visit (UCWSTR ) ALVARADO COHEN ([id number]) 1945 F Date Time Provider Department 07/24/24 11:00 AM ALLIE LYNCH [facility] During your visit today, [...] history is provided by the patient. No front desk manager was used. Laceration Review of Systems Constitutional: [...] plan. Both wounds were redressed. Allie Lynch APRN.CLINICAL THERAPIST Allergies As of Date: 07/24/2024 Noted Allergy [...] As Of (more content not included)... Normal [facility] Renal Artery Duplex Ultrasou ndon 05-20-2024 Renal Artery Duplex Ultrasound [facility] Cardiovascular Services [address] [place] [address] Renal Artery Duplex Ultrasound 05/20/24 0807 MR#: [id number] Acct: [id number] Name: ALVARADO COHEN Rep #: [id number] : 1945 78 From: Porfirio Mei MD Attending Dr: Dr. Nora Govea, DO Status: REG CLI Ordering Dr: Nora Govea DO Date: 05/20/24 Location: [facility] Sex: F C Admitted: Reason For Study: [...] Date Dictated: 05/20/24 08 Date Transcribed: 05/21/241707 Service Unit Operator: Signed [facility] SCREENING 08-08-2023 [facility] Vital Signs Date Time Vital Sign Value Performing Clinician Facility 03-22-2025 15:20-0400 Diastolic blood pressure 68 mm[Hg] Glenny Luque MD Work Phone: [facility] 03-22-2025 15:20-0400 Systolic blood pressure 164 mm[Hg] Glenny Luque MD Work Phone: [facility] 03-22-2025 15:16-0400 Body mass index (BMI) [Ratio] 21.9 kg/m2 Glenny Luque MD Work Phone: [facility] 03-22-2025 15:16-0400 Body weight 54.3 kg Glenny Luque MD Work Phone: [facility] 03-22-2025 15:16-0400 Heart rate 62 /min Glenny Luque MD Work Phone: [facility] 03-22-2025 15:16-0400 Respiratory rate 18 /min Glenny Luque MD Work Phone: [facility] 11-26-2024 13:33-0500 Diastolic blood pressure 64 mm[Hg] Glenny Luque MD Work Phone: [facility] 11-26-2024 13:33-0500 Systolic blood pressure 166 mm[Hg] Glenny Luque MD Work Phone: [facility] 11-26-2024 13:30-0500 Body height 157.5 cm Glenny Luque MD Work Phone: [facility] 11-26-2024 13:30-0500 Body mass index (BMI) [Ratio] 22.18 kg/m2 Glenny Luque MD Work Phone: [facility] 11-26-2024 13:30-0500 Body weight 55 kg Glenny Luque MD Work Phone: [facility] 11-26-2024 13:30-0500 Heart rate 70 /min Glenny Luque MD Work Phone: [facility] 11-26-2024 13:30-0500 Respiratory rate 18 /min Glenny Luque MD Work Phone: [facility] 07-24-2024 11:00-0400 Body mass index (BMI) [Ratio] 21.48 kg/m2 Allie Lynch APRN.CLINICAL THERAPIST Work Phone: [facility] 07-24-2024 11:00-0400 Body temperature 96.4 [degF] Allie Lynch APRN.CLINICAL THERAPIST Work Phone: [facility] 07-24-2024 11:00-0400 Body weight 55 kg Allie Lynch APRN.CLINICAL THERAPIST Work Phone: [facility] 07-24-2024 11:00-0400 Diastolic blood pressure 64 mm[Hg] Allie Lynch APRN.CLINICAL THERAPIST Work Phone: [facility] Comment on above: BP checked x 2 210/7 3 07-24-2024 11:00-0400 Heart rate 69 /min Allie Lynch APRN.CLINICAL THERAPIST Work Phone: [facility] 07-24-2024 11:00-0400 Respiratory rate 18 /min Allie Lynch APRN.CLINICAL THERAPIST Work Phone: [facility] 07-24-2024 11:00-0400 SaO2% (BldA) [Mass fraction] 99 % Allie Lynch APRN.CLINICAL THERAPIST Work Phone: [facility] 07-24-2024 11:00-0400 Systolic blood pressure 210 mm[Hg] Allie Lynch APRN.CLINICAL THERAPIST Work Phone: [facility] Comment on above: BP checked x 2 210/7 3 03-20-2024 10:10-0400 Diastolic blood pressure 67 mm[Hg] Hans Mahendra FINANCE INTERN.CLINICAL THERAPIST Work Phone: [facility] Comment on above: BP CHASITY AVERAGE 03-20-2024 10:10-0400 Heart rate 63 /min Hans Mahendra FINANCE INTERN.CLINICAL THERAPIST Work Phone: [facility] 03-20-2024 10:10-0400 Systolic blood pressure 200 mm[Hg] Hans Mahendra FINANCE INTERN.CLINICAL THERAPIST Work Phone: [facility] Comment on above: BP CHASITY AVERAGE 03-20-2024 09:52-0400 Body mass index (BMI) [Ratio] 21.86 kg/m2 Hans Mahendra FINANCE INTERN.CLINICAL THERAPIST Work Phone: [facility] 03-20-2024 09:52-0400 Body weight 55.97 kg Hans Mahendra FINANCE INTERN.CLINICAL THERAPIST Work Phone: [facility] 03-20-2024 09:52-0400 Respiratory rate 16 /min Hans Mahendra FINANCE INTERN.CLINICAL THERAPIST Work Phone: [facility] 03-20-2024 09:52-0400 SaO2% (BldA) [Mass fraction] 99 % Hans Mahendra FINANCE INTERN.CLINICAL THERAPIST Work Phone: [facility] 02-17-2024 11:30-0400 Diastolic blood pressure 67 mm[Hg] Hans Mahendra FINANCE INTERN.CLINICAL THERAPIST Work Phone: [facility] 02-17-2024 11:30-0400 Heart rate 71 /min Hans Mahendra FINANCE INTERN.CLINICAL THERAPIST Work Phone: [facility] 02-17-2024 11:30-0400 Systolic blood pressure 188 mm[Hg] Hans Mahendra FINANCE INTERN.CLINICAL THERAPIST Work Phone: [facility] 02-17-2024 11:23-0400 Body weight 56.16 kg Hans Mahendra FINANCE INTERN.CLINICAL THERAPIST Work Phone: [facility] 02-17-2024 11:23-0400 Respiratory rate 16 /min Hans Mahendra FINANCE INTERN.CLINICAL THERAPIST Work Phone: [facility] 02-17-2024 11:23-0400 SaO2% (BldA) [Mass fraction] 99 % Hans Mccray FINANCE INTERN.CLINICAL THERAPIST Work Phone: [facility] 06-12-2023 12:30-0400 Body weight 55.34 kg Laurel Tannhof FINANCE INTERN.CLINICAL THERAPIST Work Phone: [facility] 06-12-2023 12:30-0400 Diastolic blood pressure 76 mm[Hg] Laurel Tannhof FINANCE INTERN.CLINICAL THERAPIST Work Phone: [facility] 06-12-2023 12:30-0400 Heart rate 75 /min Laurel Tannhof FINANCE INTERN.CLINICAL THERAPIST Work Phone: [facility] 06-12-2023 12:30-0400 Respiratory rate 16 /min Laurel Tannhof FINANCE INTERN.CLINICAL THERAPIST Work Phone: [facility] 06-12-2023 12:30-0400 SaO2% (BldA) [Mass fraction] 98 % Laurel Tannhof FINANCE INTERN.CLINICAL THERAPIST Work Phone: [facility] 06-12-2023 12:30-0400 Systolic blood pressure 180 mm[Hg] Laurel Tannhof FINANCE INTERN.CLINICAL THERAPIST Work Phone: [facility] 05-08-2023 12:50-0400 Body weight 55.79 kg Laurel Tannhof FINANCE INTERN.CLINICAL THERAPIST Work Phone: [facility] 05-08-2023 12:50-0400 Diastolic blood pressure 80 mm[Hg] Laurel Tannhof FINANCE INTERN.CLINICAL THERAPIST Work Phone: [facility] 05-08-2023 12:50-0400 Heart rate 58 /min Laurel Tannhof FINANCE INTERN.CLINICAL THERAPIST Work Phone: [facility] 05-08-2023 12:50-0400 Respiratory rate 16 /min Laurel Tannhof FINANCE INTERN.CLINICAL THERAPIST Work Phone: [facility] 05-08-2023 12:50-0400 SaO2% (BldA) [Mass fraction] 97 % Laurel Tannhof FINANCE INTERN.CLINICAL THERAPIST Work Phone: [facility] 05-08-2023 12:50-0400 Systolic blood pressure 160 mm[Hg] Laurel Tannhof FINANCE INTERN.CLINICAL THERAPIST Work Phone: [facility] 04-08-2023 13:28-0400 Body weight 55.34 kg Laurel Tannhof FINANCE INTERN.CLINICAL THERAPIST Work Phone: [facility] 04-08-2023 13:28-0400 Diastolic blood pressure 60 mm[Hg] Laurel Tannhof FINANCE INTERN.CLINICAL THERAPIST Work Phone: [facility] 04-08-2023 13:28-0400 Heart rate 77 /min Laurel Tannhof FINANCE INTERN.CLINICAL THERAPIST Work Phone: [facility] 04-08-2023 13:28-0400 Respiratory rate 6 /min Laurel Tannhof FINANCE INTERN.CLINICAL THERAPIST Work Phone: [facility] 04-08-2023 13:28-0400 SaO2% (BldA) [Mass fraction] 97 % Laurel Tannhof FINANCE INTERN.CLINICAL THERAPIST Work Phone: [facility] 04-08-2023 13:28-0400 Systolic blood pressure 140 mm[Hg] Laurel Tannhof FINANCE INTERN.CLINICAL THERAPIST Work Phone: [facility] 08-27-2022 10:05-0400 Body weight 54.88 kg Laurel Tannhof FINANCE INTERN.CLINICAL THERAPIST Work Phone: [facility] 08-27-2022 10:05-0400 Diastolic blood pressure 80 mm[Hg] Laurel Tannhof FINANCE INTERN.CLINICAL THERAPIST Work Phone: [facility] 08-27-2022 10:05-0400 Heart rate 83 /min Laurel Tannhof FINANCE INTERN.CLINICAL THERAPIST Work Phone: [facility] 08-27-2022 10:05-0400 Respiratory rate 16 /min Laurel Tannhof FINANCE INTERN.CLINICAL THERAPIST Work Phone: [facility] 08-27-2022 10:05-0400 SaO2% (BldA) [Mass fraction] 99 % Laurel Tejal FINANCE INTERN.CLINICAL THERAPIST Work Phone: [facility] 08-27-2022 10:05-0400 Systolic blood pressure 160 mm[Hg] Laurel Toure FINANCE INTERN.CLINICAL THERAPIST Work Phone: [facility] Encounters Encounter Date Encounter Type Care Provider Facility Start: 04-22-2025 End: 04-28-2025 Telephone encounter Glenny Luque MD Work Phone: [facility] Comment on above: medical consultation form ([facility]) Start: 04-07-2025 End: 04-07-2025 ambulatory Faith Larkin [facility] Start: 04-07-2025 End: 04-07-2025 Patient encounter procedure Faith Larkin MA [facility] [place] Comment on above: Population Health Na vigation Outreach [facility] Start: 04-01-2025 End: 04-01-2025 ambulatory GLENNY LUQUE Facility:[facility] Start: 03-22-2025 End: 03-22-2025 Office outpatient visit 25 minutes Glenny Luque MD Work Phone: [facility] Comment on above: Essential hypertensi on, benign (Primary Dx); Resistant hypertension; Uncontrolled hypertension; Osteoporosis, unspecified osteoporosis type, unspecified pathological fracture presence; Claudication; Tobacco use disorder Start: 03-22-2025 End: 03-22-2025 ambulatory GLENNY LUQUE Facility:[facility] Start: 03-03-2025 End: 03-03-2025 ambulatory Faith Larkin [facility] Start: 03-03-2025 End: 03-03-2025 Patient encounter procedure Faith Larkin MA [facility] Comment on above: Population Health Na vigation Outreach ([facility] Start: 02-22-2025 End: 02-22-2025 ambulatory GLENNY LUQUE Facility:[facility] Start: 01-25-2025 End: 01-25-2025 Refill Glenny Luque MD Work Phone: [facility] [place] Comment on above: Refill Request Start: 01-04-2025 End: 03-06-2025 Follow-up encounter Glenny Luque MD Work Phone: Family [facility] [place] Start: 01-01-2025 End: 01-01-2025 ambulatory GLENNY LUQUE Facility:[facility] Start: 01-01-2025 End: 01-01-2025 Subsequent hospital visit by physician Bone Density [facility] Work Phone: Radiology Comment on above: Age-related osteopor osis without current pathological fracture [M81.0] Start: 12-09-2024 End: 12-09-2024 ambulatory GLENNY LUQUE Facility:[facility] Start: 12-09-2024 Patient encounter procedure GLENNY LUQUE [facility] Start: 11-26-2024 End: 11-26-2024 ambulatory GLENNY LUQUE Facility:[facility] Start: 11-26-2024 End: 11-26-2024 Patient encounter procedure Glenny Luque MD Work Phone: [facility] [place] Comment on above: Encounter for Medica [...] Start: 10-21-2024 End: 10-21-2024 ambulatory Carissa Ordonez [facility] Start: 10-07-2024 End: 10-07-2024 ambulatory Porfirio Mei Facility:[facility] Start: 09-25-2024 End: 09-25-2024 ambulatory GLENNY LUQUE Facility:[facility] Start: 09-25-2024 End: 09-25-2024 Subsequent hospital visit by physician Screen Mammo [facility] Mammogram Comment on above: Visit for screening mammogram [Z12.31] Start: 09-18-2024 End: 09-18-2024 ambulatory Jelani Garnavillo [facility] Start: 09-18-2024 End: 09-18-2024 Patient encounter procedure Jelani Ozuna [facility] Comment on above: Population Health Na vigation Outreach ([facility] [employer] list 2023/) Start: 08-27-2024 End: 08-27-2024 ambulatory Glenny Luque [place] Start: 07-24-2024 End: 07-24-2024 ambulatory GLENNY LUQUE Facility:[facility] Start: 07-24-2024 End: 07-24-2024 Patient encounter procedure Allie Lynch APRN.CLINICAL THERAPIST Work Phone: [facility] Comment on above: Open wound (Primary Dx) Start: 05-20-2024 ambulatory [facility] Start: 05-20-2024 End: 05-20-2024 ambulatory [facility] Facility:[facility] Start: 03-26-2024 Telephone encounter Hans youngblood APRN.CLINICAL THERAPIST Work Phone: [facility] Comment on above: fax referral to Dr Alexander Govea Start: 03-23-2024 Refill Hans GILLETTE RN.CLINICAL THERAPIST Work Phone: [facility] Comment on above: Refill Request Medication Problem Start: 03-20-2024 End: 03-20-2024 Office outpatient visit 15 minutes Hans Mccray APRN.CLINICAL THERAPIST Work Phone: [facility] Comment on above: Essential hypertensi on, benign (Primary Dx); Uncontrolled hypertension Start: 03-10-2024 ambulatory Glenny bunch MD Work Phone: [facility] [place] Comment on above: Ultrasound results Start: 03-10-2024 E-mail encounter fro m caregiver Glenny Luque MD Work Phone: [facility] Start: 03-10-2024 Telephone encounter Hans youngblood APRN.CLINICAL THERAPIST Work Phone: [facility] Comment on above: Results Start: 03-09-2024 Refill Hans GILLETTE RN.CLINICAL THERAPIST Work Phone: [facility] [place] Comment on above: Refill Request Opened In Error Start: 03-06-2024 End: 03-06-2024 Subsequent hospital visit by physician Us [facility] Work Phone: Radiology Comment on above: Essential hypertensi on, benign [I10] Start: 02-18-2024 Telephone encounter Hans youngblood APRN.CLINICAL THERAPIST Work Phone: [facility] [place] Comment on above: Results Start: 02-17-2024 End: 02-17-2024 Office outpatient visit 15 minutes Hans Mccray APRN.CLINICAL THERAPIST Work Phone: [facility] [place] Comment on above: Essential hypertensi on, benign (Primary Dx); Resistant hypertension Start: 02-06-2024 Refill Glenny bunch MD Work Phone: [facility] [place] Comment on above: Refill Request Start: 01-11-2024 Refill Hans GILLETTE RN.CLINICAL THERAPIST Work Phone: [facility] [place] Comment on above: Refill Request Start: 09-02-2023 Refill Laurel Toure APRN.CLINICAL THERAPIST Work Phone: [facility] [place] Comment on above: Med Change Request Start: 08-08-2023 Documentation procedure Mammog kelechi Coordinator [facility] Start: 08-08-2023 Letter encounter Mammography Coordinator [facility] Department Start: 08-08-2023 End: 08-08-2023 Subsequent hospital visit by [facility] Comment on above: Visit for screening mammogram [Z12.31] Start: 07-19-2023 Orders Only Glenny bunch MD Work Phone: [address] [place] [address] Comment on above: Visit for screening mammogram (Primary Dx) Start: 07-11-2023 Refill Laurel Toure APRN.CLINICAL THERAPIST Work Phone: [facility] [place] Comment on above: Refill Request Start: 07-09-2023 Refill Glenny bunch MD Work Phone: [facility] [place] Comment on above: Refill Request Start: 06-12-2023 ambulatory Laurel Toure FINANCE INTERN.NIKKI Work Phone: [facility] [place] Comment on above: BP post visit 06/12/23 Start: 06-12-2023 End: 06-12-2023 Patient encounter procedure Laurel Toure FINANCE INTERN.CLINICAL THERAPIST Work Phone: [facility] [place] Comment on above: Uncontrolled hyperte nsion (Primary Dx) Start: 05-13-2023 Telephone encounter Laurel camp FINANCE INTERN.CLINICAL THERAPIST Work Phone: [facility] [place] Comment on above: Consult Start: 05-08-2023 End: 05-08-2023 Patient encounter procedure Laurel Toure FINANCE INTERN.CLINICAL THERAPIST Work Phone: [facility] [place] Comment on above: Uncontrolled hyperte nsion (Primary Dx) Start: 04-08-2023 End: 04-08-2023 Patient encounter procedure Laurel Toure FINANCE INTERN.NIKKI Work Phone: [facility] [place] Comment on above: Essential hypertensi on, benign (Primary Dx) Start: 08-27-2022 End: 08-27-2022 Patient encounter procedure Laurel Toure FINANCE INTERN.NIKKI Work Phone: [facility] [place] Comment on above: Essential hypertensi on, benign (Primary Dx); Hyperlipidemia with target LDL less than 100; Tobacco abuse Start: 06-14-2022 ambulatory Indio GILLETTE RN.RODRIGUEZ JORDAN Work Phone: Neurology Comment on above: Results Start: 06-14-2022 E-mail encounter fro m caregiver Indio Robledo APRN.NIKKI, RODRIGUEZ Work Phone: [facility] Start: 06-12-2022 Documentation procedure Mammog kelechi Coordinator [facility] Start: 06-12-2022 Letter encounter Mammography Coordinator [facility] Department Start: 06-11-2022 End: 06-11-2022 Subsequent hospital visit by physician Screen Mammo [facility] Mammogram Comment on above: Visit for screening mammogram [Z12.31] Start: 06-08-2022 Orders Only Indio GILLETTE RN.RODRIGUEZ JORDAN Work Phone: [facility] Comment on above: Visit for screening mammogram (Primary Dx) Procedures Date Procedure Procedure Detail Performing Clinician Start: 08-08-2023 Screening mammograph y bi 2-view breast inc cad Glenny Luque MD Work Phone: Start: 06-21-2021 Adult depression scr eening assessment Indio Robledo FINANCE INTERN.CLINICAL THERAPIST, DNP Work Phone: Start: 06-10-2017 Colonoscopy Indio brown APRN.NIKKI, RODRIGUEZ Work Phone: Plan of Treatment Date Care Activity Detail Author Start: 07-16-2028 Urine microalbumin profile [facility] Start: 04-01-2028 Diabetes Screening Diabetes Screenvt g [facility] Start: 02-23-2028 [facility] Start: 12-09-2027 [facility] Start: 06-10-2027 Colonoscopy COLONOSCOPY [facility] Start: 06-10-2027 COLORECTAL CANCER SCREENING COLORECTAL CANCER SCREENING [facility] Start: 02-16-2027 Diabetes Screening Diabetes Screenin g [facility] Start: 01-01-2027 Screening for osteoporosis Bone Density Screening [facility] Start: 07-06-2026 LIPID SCREEN LIPID SCREEN [facility] Start: 03-22-2026 Annual PCP Team Plate Roller kimberlee Disease Visit Annual PCP Team Chronic Disease Visit [facility] Start: 03-22-2026 Covid-19 Vaccine ( season) Covid-19 Vaccine () [facility] Comment on above: Postponed from 02/17 (Declined at this time) Start: 11-26-2025 Annual PCP Team Plate Roller kimberlee Disease Visit Annual PCP Team Chronic Disease Visit [facility] Start: 11-26-2025 Medicare Annual Wellness Visit Medicare Annual Wellness Visit [facility] Start: 10-19-2025 DIABETES SCREEN DIABETES SCREEN [facility] Start: 10-19-2025 Diabetes Screening Diabetes Screenin g [facility] Start: 03-22-2025 End: 03-22-2025 Patient encounter procedure 03/22/2025 3:20 PM EDT Office Visit [facility] [address] [place] [address] Glenny Luque MD [address] [facility] [place] [place] [address] follow up Family [facility] Comment on above: follow up Start: 03-20-2025 Annual PCP Team Plate Roller kimberlee Disease Visit Annual PCP Team Chronic Disease Visit [facility] Start: 03-01-2025 End: 03-01-2025 Patient encounter procedure [facility] Debbie [place] Comment on above: 3 mo f/u HTN Start: 02-17-2025 Covid-19 Vaccine () Covid-19 Vaccine () [facility] Start: 02-16-2025 Annual PCP Team Plate Roller kimberlee Disease Visit Annual PCP Team Chronic Disease Visit [facility] Start: 01-01-2025 End: 01-01-2025 Patient encounter procedure 01/01/2025 12:30 PM EST Appointment Radiology [address] [place] [id number] Age-related osteoporosis without current pathological fracture [M81.0] Radiology Comment on above: Age-related osteopor osis without current pathological fracture [M81.0] Start: 12-14-2024 End: 12-14-2024 Patient encounter procedure 12/14/2024 2:30 PM EST Office Visit Vascular Surgery [address] [address] Uncontrolled hypertension [I10]; Leg fatigue [R29.898]; Claudication (HCC) [I73.9] Vascular Surgery Comment on above: Uncontrolled hyperte nsion [I10]; Leg fatigue [R29.898]; Claudication (HCC) [I73.9] Start: 11-26-2024 End: 02-25-2025 CBC W Auto Differential panel - Blood COMPLETE BLOOD COUNT AND DIFFERENTIAL Lab Routine Encounter for Medicare annual wellness exam Uncontrolled hypertension Expected: 11/26/2024, Expires: 02/25/2025 [facility] Comment on above: Expected: 11/26/2024 , Expires: 02/25/2025 Start: 11-26-2024 End: 02-25-2025 Comprehensive metabolic 2000 panel - Serum or Plasma COMPREHENSIVE METABOLIC PANEL Lab Routine Encounter for Medicare annual wellness exam Uncontrolled hypertension Hyperlipidemia with target LDL less than 100 Expected: 11/26/2024, Expires: 02/25/2025 [facility] Comment on above: Expected: 11/26/2024 , Expires: 02/25/2025 Start: 11-26-2024 End: 02-25-2025 Lipid 1996 panel - Serum or Plasma LIPID PANEL BASIC Lab Routine Encounter for Medicare annual wellness exam Uncontrolled hypertension Hyperlipidemia with target LDL less than 100 Expected: 11/26/2024, Expires: 02/25/2025 [facility] Comment on above: Expected: 11/26/2024 , Expires: 02/25/2025 Start: 11-09-2024 End: 11-09-2024 Patient encounter procedure 11/09/2024 12:00 PM EST Office Visit Family Debbie [facility] [address] [place] [address] Glenny Luque MD [address] [facility] [place], [place] [id number] AWV is PRIMARY/Follow up [facility] [place] Comment on above: AWV is PRIMARY/Follo w up Start: 11-04-2024 Advance Directive Discussion Advance Directive Discussion [facility] Start: 09-25-2024 End: 09-25-2024 Patient encounter procedure 09/25/2024 12:50 PM EST Appointment Mammogram [address] [place], [place] [id number] encounter for routine screening MAMMOGRAM*pended order Glenny Luque MD Mammogram Comment on above: encounter for routin e screening MAMMOGRAM*pended order Glenny Luque MD Start: 07-06-2024 DIABETES SCREEN DIABETES SCREEN [facility] Start: 07-05-2024 Covid-19 Vaccine ( season) Covid-19 Vaccine () [facility] Start: 07-05-2024 Influenza vaccination Influenza Vacc ine (#1) [facility] Start: 06-22-2024 End: 06-22-2024 Patient encounter procedure 06/22/2024 2:40 PM EDT Office Visit Family Debbie [facility] [address] [place], [place] [id number] Glenny Luque MD [address] [facility] [place] [address] 3 Month F/U Family Debbie [facility] Comment on above: 3 Month F/U Start: 06-12-2024 ANNUAL PCP TEAM INTERNAL CONTROLS SPECIALIST KIMBERLEE DISEASE VISIT ANNUAL PCP TEAM CHRONIC DISEASE VISIT [facility] Start: 05-08-2024 ANNUAL PCP TEAM INTERNAL CONTROLS SPECIALIST KIMBERLEE DISEASE VISIT ANNUAL PCP TEAM CHRONIC DISEASE VISIT [facility] Start: 04-08-2024 ANNUAL PCP TEAM INTERNAL CONTROLS SPECIALIST KIMBERLEE DISEASE VISIT ANNUAL PCP TEAM CHRONIC DISEASE VISIT [facility] Start: 03-20-2024 End: 03-20-2024 Patient encounter procedure 03/20/2024 10:00 AM EDT Office Visit [facility] [address] [place] [address] Hans Mccray APRN.CLINICAL THERAPIST [address] [place] [address] BP follow up [facility] Debbie [facility] Comment on above: BP follow up Start: 02-17-2024 End: 05-18-2024 ALDOSTERONE/DIRECT RENIN RATIO [facility] Work Phone: Comment on above: Expected: 02/17/2024 , Expires: 05/18/2024 Start: 02-17-2024 End: 05-18-2024 Basic metabolic 2000 panel - Serum or Plasma [facility] Work Phone: Comment on above: Expected: 02/17/2024 (Approximate), Expires: 05/18/2024 Start: 12-10-2023 Covid-19 Vaccine () Covid-19 Vaccine () [facility] Start: 11-04-2023 Advance Directive Discussion Advance Directive Discussion [facility] Start: 11-04-2023 Behavioral Health Screening Behavioral Health Screening [facility] Start: 11-04-2023 Depression Assessment Depression Ass essment [facility] Start: 08-27-2023 ANNUAL PCP TEAM INTERNAL CONTROLS SPECIALIST KIMBERLEE DISEASE VISIT ANNUAL PCP TEAM CHRONIC DISEASE VISIT [facility] Start: 07-05-2023 Covid-19 Vaccine () Covid-19 Vaccine () [facility] Start: 07-05-2023 Influenza vaccination [facility] Start: 12-14-2022 COVID-19 VACCINE (7 - Moderna series) COVID-19 VACCINE (7 - Moderna series) [facility] Start: 11-04-2022 ADVANCE DIRECTIVE DISCUSSION ADVANCE DIRECTIVE DISCUSSION [facility] Start: 08-27-2022 End: 10-27-2022 Comprehensive metabolic 2000 panel - Serum or Plasma COMP METABOLIC PANEL Lab Routine Essential hypertension, benign Expected: 08/27/2022, Expires: 10/27/2022 [facility] Work Phone: Comment on above: Expected: 08/27/2022 , Expires: 10/27/2022 Start: 08-27-2022 End: 10-27-2022 Lipid 1996 panel - Serum or Plasma LIPID PANEL BASIC Lab Routine Hyperlipidemia with target LDL less than 100 Expected: 08/27/2022, Expires: 10/27/2022 [facility] Work Phone: Comment on above: Expected: 08/27/2022 , Expires: 10/27/2022 Start: 07-05-2022 Influenza vaccination INFLUENZA (#1) [facility] Start: 06-26-2022 ANNUAL PCP TEAM INTERNAL CONTROLS SPECIALIST KIMBERLEE DISEASE VISIT ANNUAL PCP TEAM CHRONIC DISEASE VISIT [facility] Start: 06-26-2022 BP CONTROLLED (<130/80) BP CONTROLLE D (<130/80) [facility] Start: 06-26-2022 Influenza vaccination LUNG CANCER [facility] Comment on above: Postponed from 06/20 (Declined at this time) Start: 06-21-2022 Adult depression screening assessment DEPRESSION SCREENING [facility] Start: 11-04-2021 ADVANCE DIRECTIVE DISCUSSION ADVANCE DIRECTIVE DISCUSSION [facility] Start: 04-09-2018 Screening for osteoporosis Bone Density Screening [facility] Start: 2006 RSV Vaccine (1 - 1-d ose 60+ series) RSV Vaccine (1 - 1-dose 60+ series) [facility] Start: 1996 Influenza vaccination LUNG CANCER [facility] Start: 1996 Screening for malign ant neoplasm of lung Lung Cancer Screening [facility] Start: 1991 COLOGUARD (FIT-DNA) COLOGUARD (FIT-D NA) [facility] Start: [address] [facility] Start: 1991 FECAL OCCULT BLOOD FECAL OCCULT BLOO D [facility] Start: 1991 SIGMOIDOSCOPY [facility]COPY [facility] Start: 1964 Anxiety Screening Anxiety Screening [facility] Start: 1963 Depression Screening Depression Scre ening [facility] End: 12-26-2025 BD DXA TRABECULAR BONE SCORE (TBS) BD DXA TRABECULAR BONE SCORE (TBS) Radiology Routine Age-related osteoporosis without current pathological fracture 1 Occurrences starting 11/26/2024 until 12/26/2025 [facility] Comment on above: 1 Occurrences starti ng 11/26/2024 until 12/26/2025 BD DXA TRABECULAR JOSE NE SCORE (TBS) BD DXA TRABECULAR BONE SCORE (TBS) Radiology Routine Age-related osteoporosis without current pathological fracture 01/01/2025 12:47 PM EST [facility] End: 12-26-2025 DXA Skeletal system.axial Views for bone density DXA-AXIAL SKELETON Radiology Routine Age-related osteoporosis without current pathological fracture 1 Occurrences starting 11/26/2024 until 12/26/2025 [facility] Comment on above: 1 Occurrences starti ng 11/26/2024 until 12/26/2025 DXA Skeletal system.axial Views for bone density DXA-AXIAL SKELETON Radiology Routine Age-related osteoporosis without current pathological fracture 01/01/2025 12:47 PM EST [facility] Work Phone: JOSEFA SCREENING JOSEFA SCREENING Ra diology Routine Visit for screening mammogram Ordered: 07/21/2023 [facility] Work Phone: Comment on above: Ordered: 07/21/2023 MG Breast Screening JOSEFA SCREENIN G Radiology Routine Visit for screening mammogram 09/25/2024 1:08 PM EST [facility] Work Phone: Screening mammograph y bi 2-view breast inc cad [facility] Work Phone: Comment on above: Ordered: 06/08/2022 End: 03-18-2025 US Kidney - bilateral and Urinary bladder US KIDNEY/BLADDER Radiology Routine Essential hypertension, benign Resistant hypertension 1 Occurrences starting 02/17/2024 until 03/18/2025 [facility] Work Phone: Comment on above: 1 Occurrences starti ng 02/17/2024 until 03/18/2025 US Kidney - bilatera l and Urinary bladder US KIDNEY/BLADDER Radiology Routine Essential hypertension, benign Resistant hypertension 03/06/2024 11:35 AM EDT [facility] Work Phone: End: 11-26-2025 US.doppler Extremity arteries - bilateral for physiologic artery study PVR ANK PRESS [facility] Vascular Lab Routine Uncontrolled hypertension Leg fatigue Claudication (HCC) 1 Occurrences starting 11/26/2024 until 11/26/2025 [facility] Work Phone: Comment on above: 1 Occurrences starti ng 11/26/2024 until 11/26/2025 [facility] Immunizations Immunization Date Immunization Notes Care Provider Jose Martin bullock 08-19-2024 COVID-19 vaccine, ag e 12+ yr (PFIZER-BIONTECH COMIRNATY) Jelani Ozuna [facility] 08-19-2024 influenza virus vacc ine, unspecified formulation [facility] respiratory syncytia l virus (RSV) vaccine, bivalent (ABRYSVO) Laurel Toure FINANCE INTERN.CLINICAL THERAPIST Work Phone: [facility] 08-13-2023 influenza, high dose seasonal, preservative-free Laurel Toure FINANCE INTERN.CLINICAL THERAPIST Work Phone: [facility] 08-13-2023 influenza virus vacc ine, unspecified formulation Allie Lynch FINANCE INTERN.CLINICAL THERAPIST Work Phone: [facility] 08-13-2022 COVID-19 booster vaccine, age 12+ yr, bivalent (PFIZER-BIONTECH) Laurel Toure FINANCE INTERN.CLINICAL THERAPIST Work Phone: [facility] 07-19-2022 influenza (aIIV4) vaccine, age 65+ yr, quadrivalent, PF (FLUAD QUADRIVALENT) Laurel Toure FINANCE INTERN.CLINICAL THERAPIST Work Phone: [facility] Work Phone: 07-19-2022 influenza, high-dose , quadrivalent vaccine (FLUZONE HIGH DOSE QUADRIVALENT) Laurel Toure APRN.[facility] Work Phone: [facility] 07-19-2022 influenza virus vacc ine, unspecified formulation Glenny Lquue MD Work Phone: [facility] 02-06-2022 COVID-19 vaccine, booster dose (MODERNA) Indio Robledo APRN.[facility] Work Phone: [facility] 09-06-2021 COVID-19 vaccine, fu ll dose (MODERNA) Indio Robledo APRN.[facility] Work Phone: [facility] 08-06-2021 influenza virus vacc ine, unspecified formulation Indio Robledo APRN.[facility] Work Phone: [facility] 01-18-2021 COVID-19 vaccine, fu ll dose (MODERNA) Indio Robledo APRN.[facility] Work Phone: [facility] 12-21-2020 COVID-19 vaccine, fu ll dose (MODERNA) Indio Robledo APRN.[facility] Work Phone: [facility] 12-01-2020 zoster vaccine recombinant Indio Robledo APRN.[facility] Work Phone: [facility] 09-28-2020 zoster vaccine recombinant Indio Robledo APRN.[facility] Work Phone: [facility] Work Phone: 07-19-2020 influenza virus vacc ine, unspecified formulation Indio Robledo APRN.[facility] Work Phone: [facility] 07-18-2020 influenza, high dose seasonal, preservative-free Indio Blakevin HENDRICKSON.[facility] Work Phone: [facility] Work Phone: 08-04-2019 influenza, high dose seasonal, preservative-free Indio Meena HENDRICKSON.[facility] Work Phone: [facility] 07-05-2019 influenza virus vacc ine, unspecified formulation Indio Robledo APRN.[facility] Work Phone: [facility] 07-16-2018 diphtheria, tetanus toxoids and acellular pertussis vaccine Indio Robledo APRN.[facility] Work Phone: [facility] 07-16-2018 influenza virus vacc ine, unspecified formulation Indio Robledo APRN.[facility] Work Phone: [facility] 08-04-2017 influenza virus vacc ine, unspecified formulation Indio Robledo APRN.[facility] Work Phone: [facility] 08-17-2016 influenza, high dose seasonal, preservative-free Indio Robledo APRN.[facility] Work Phone: [facility] 03-26-2016 pneumococcal conjuga te vaccine, 13 valent Indio Robledo APRN.[facility] Work Phone: [facility] 08-04-2013 pneumococcal polysaccharide vaccine, 23 valent Indio Robledo APRN.[facility] Work Phone: [facility] 10-06-2009 novel influenza-H1N1 -09, preservative-free, injectable Indio Robledo APRN.[facility] Work Phone: [facility] 08-04-2008 tetanus toxoid, redu kodak diphtheria toxoid, and acellular pertussis vaccine, adsorbed Indio Robledo APRN.[facility] Work Phone: [facility] Work Phone: 04-18-2008 pneumococcal polysaccharide vaccine, 23 valent Indio Robledo APRN.[facility] Work Phone: [facility] Work Phone: 01-05-2008 zoster vaccine, live Indio Robledo APRN.[facility] Work Phone: [facility] 11-04-1996 diphtheria and tetan us toxoids, adsorbed for pediatric use Indio Robledo APRN.[facility] Work Phone: [facility] Work Phone: Payers Date Payer Category Payer Self-pay 2013 Private Health Insurance [facility] SUPPLE[facility] [id number] 2013-Present [phone] [address] [place] [address] Indemnity [id number] 2013 Private Health Insurance [id number] 2013 Unknown [id number] 2011 Medicare MEDICARE MEDICAR E A AND B [id number] 2011-Present [phone] [place] [address] Medicare [id number] 2011 Medicare [id number] 2011 Medicare [id number] Unknown [id number] Unknown [id number] Unknown [id number] Unknown [id number] Unknown [id number] Unknown [id number] Social History Date Type Detail Facility Start: 06-26-2021 End: 11-26-2024 Tobacco smoking status LAIS Smokes tobacco daily [facility] History of tobacco use Cigarette Smoker [facility] Start: 06-26-2021 End: 03-22-2025 Alcohol intake Current non-drinker of alcohol (finding) [facility] Start: 06-21-2021 End: 03-21-2023 History SDOH Alcohol Frequency 1 [facility] Start: 06-21-2021 End: 03-21-2023 History SDOH Social Connections Phone 3 [facility] Start: 06-21-2021 End: 03-21-2023 History SDOH Social Connections Get Together 98 [facility] Start: 06-21-2021 End: 03-21-2023 History SDOH Social Connections Living 5 [facility] Start: 06-21-2021 End: 03-21-2023 History SDOH Stress 2 [facility] Start: 06-21-2021 Education 18 [facility] Start: 1945 Sex Assigned At Female [facility] Start: 05-29-2022 End: 08-27-2022 Exposure to SARS-CoV-2 (event) Not sure [facility] Start: 06-26-2021 End: 03-21-2023 Cigarettes smoked current (pack per day) - Reported 1 [facility] Start: 06-26-2021 End: 11-26-2024 Tobacco use and exposure Smokeless tobacco non-user [facility] Work Phone: Start: 08-21-2022 End: 03-21-2023 History SDOH Alcohol Std Drinks 0 [facility] Start: 08-21-2022 History SDOH Financial 4 [facility] Start: 03-21-2023 End: 03-17-2024 Social connection and isolation panel [facility] In a typical week, h ow many times do you talk on the telephone with family, friends, or neighbors? Patient refused [facility] Do you belong to any clubs or organizations such as amish groups, unions, fraternal or athletic groups, or school groups? Yes [facility] Are you now , , , , never or living with a partner? [facility] How often to you hav e a drink containing alcohol? Never [facility] Do you feel stress - tense, restless, nervous, or anxious, or unable to sleep at night because your mind is troubled all the time - these days [OSQ] Not at all [facility] (I/We) worried wheth er (my/our) food would run out before (I/we) got money to buy more. Never true [facility] In the past 12 month s, was there a time when you were not able to pay the mortgage or rent on time? No [facility] Start: 06-17-2019 Gender identity Identifies as female gender (finding) [facility] Start: 06-17-2019 Sexual orientation Heterosexual (finding) [facility] How hard is it for y ou to pay for the very basics like food, housing, medical care, and heating Not very hard [facility] Start: 11-26-2024 Tobacco Comment Trying to reduce, smoking 10 or less. [facility] Do you feel stress - tense, restless, nervous, or anxious, or unable to sleep at night because your mind is troubled all the time - these days [OSQ] Only a little [facility] Functional Status Date Assessment Result Facility 03-23-2015 Are you deaf, or do you have serious difficulty hearing No 03/23/2015 11:35 AM Joana Looney LPN No [facility] 03-23-2015 Are you blind, or do you have serious difficulty seeing, even when wearing glasses No 03/23/2015 11:35 AM Joana Looney LPN [facility] 03-23-2015 Do you have serious difficulty walking or climbing stairs No 03/23/2015 11:35 AM Joana Looney LPN [facility] 03-23-2015 Do you have difficul ty dressing or bathing No 03/23/2015 11:35 AM Joana Looney LPN No [facility] 03-23-2015 Because of a physica l, mental, or emotional condition, do you have difficulty doing errands alone such as visiting a physician's office or shopping No 03/23/2015 11:35 AM Joana Looney LPN No [facility] Mental Status Date Assessment Result Facility [...] Irvin Gallo DMD, MD at fax # [phone] [facility]. Shavonne Lopez RN [facility] 04-28-2025 Miscellaneous Notes Pt called and is notified of providers message and instructions. Pt voices understanding. Faxed medical consultation form to Dr. Irvin Gallo DMD, MD at fax # [phone] [facility]. Shavonne Lopez [...] to Dr. Irvin Gallo DMD, MD at [phone] [facility]. Route to PA when form completed for processing documented in this encounter [facility] 04-27-2025 Telephone encounter Note Form done; she may hold the Fosamax now, and stay off it until healed from the dental surgery. Glenny Luque MD [facility] 04-22-2025 Telephone encounter Note Type of letter/form/fax request - Medical Consultation Form Form received from fax on 1 floor and placed on MD desk (Dr. Luque) for completion. Completed form needs to be faxed to Dr. Irvin Gallo DMD, MD at [phone] [facility]. Route to [place] when form completed for processing [facility] 04-07-2025 Note HNO ID: [id number] Author: FAITH LARKIN MA Service: ? Author Type: Chief Controller Center Type: Progress Notes Filed: 04/07/2025 11:53 Note [...] Larkin MA April 07, 2025 11:45 AM [facility] 04-07-2025 History of Present illness Narrative [...] 2025 11:45 AM documented in this encounter [facility] 04-07-2025 Note Patient Outreach (JEREMI TNAV) ALVARADO COHEN ([id number]) 1945 F Date Time Provider Department 04/07/25 [...] and stay upright for 30 min. - ti-dpz-kvjsy-calcium carb-K1 (WOMEN'S 50 PLUS MULTIVITAMIN) 400 mcg-500 [...] for Encounter Date Provider Department Center 04/07/2025 [id number], KATHY LNETNAV None Encounter Status:Closed by FAITH LARKIN on 04/07/25 [facility] 03-22-2025 History of Present illness Narrative [...] tablet by mouth three times a day. se-vhg-knvyg-calcium carb-K1 (WOMEN'S 50 PLUS MULTIVITAMIN) 400 mcg-500 [...] Glenny Luque MD documented in this encounter [facility] 03-22-2025 Note HNO ID: [id number] Author: GLENNY LUQUE MD Service: ? Author [...] tablet by mouth three times a day. xu-mbj-chblo-calcium carb-K1 (WOMEN'S 50 PLUS MULTIVITAMIN) 400 mcg-500 [...] I10 (primary diagnosi (more content not included)... [facility] 03-03-2025 Note HNO ID: [id number] Author: FAITH LARKIN MA Service: ? Author Type: Chief Controller Center Type: Progress Notes Filed: 03/03/2025 15:03 Note [...] Larkin MA March 03, 2025 2:47 PM [facility] 03-03-2025 History of Present illness Narrative [...] 2025 2:47 PM documented in this encounter [facility] 03-03-2025 Note Patient Outreach (JEREMI HUERTA) ALVARADO COHEN ([id number]) 1945 F Date Time Provider Department 03/03/25 [...] by mouth three times a day. - dj-tis-ctmsu-calcium carb-K1 (WOMEN'S 50 PLUS MULTIVITAMIN) 400 mcg-500 [...] Encounter Status:Closed by FAITH LARKIN on 03/03/25 [facility] 01-25-2025 Telephone encounter Note Patient contacted [...] and date of : Yes Oumou Thompson [facility] 01-25-2025 Miscellaneous Notes Patient contacted pharmacy [...] Yes Oumou Thompson documented in this encounter [facility] 01-04-2025 Progress note Formatting of t his note might be different from the original. Rx's have been sent. Leeanne Sterling MA [facility] 01-04-2025 Miscellaneous Notes Rx's have been [...] - Lisinopril and Chlorthalidone. Rx's pended. Leeanne tSerling MA Please notify patient that her bone density test does show osteoporosis in her femoral necks, with an increased risk of having hip fracture. She would be a candidate to start on weekly Fosamax pills; I can send Rx to whatever pharmacy she uses if she is willing to start this. Glenny Luque MD documented in this encounter [facility] 01-04-2025 Progress note Formatting of t his note might be different from the original. OK to refill as ordered Glenny Luque MD [facility] 01-04-2025 Progress note Formatting of t [...] and Chlorthalidone. Rx's pended. Leeanne Sterling MA [facility] 01-04-2025 Telephone encounter Note Please notify patient that her bone density test does show osteoporosis in her femoral necks, with an increased risk of having hip fracture. She would be a candidate to start on weekly Fosamax pills; I can send Rx to whatever pharmacy she uses if she is willing to start this. Glenny Luque MD [facility] 01-01-2025 History of Present illness Narrative [...] PATIENT PRESENTS WITH AN IMPLANTABLE OR ATTACHED SACK REPAIRER: No RADIOLOGY DEPARTMENT: Bone Density PERIPHERAL IV DATA: Not applicable SIGNED BY: RT Kasie(R) January 01, 2025 12:30 PM documented in this encounter [facility] 01-01-2025 Note HNO ID: [id number] Author: BERNABE FLOWERS RT(R) Service: ? Author [...] PATIENT PRESENTS WITH AN IMPLANTABLE OR ATTACHED SACK REPAIRER: No RADIOLOGY DEPARTMENT: Bone Density PERIPHERAL IV DATA: Not applicable SIGNED BY: RT Kasie(R) January 01, 2025 12:30 PM [facility] 11-26-2024 Instructions Leeanne Sterling MA - [...] usual activities immediately. documented in this encounter [facility] 11-26-2024 History of Present illness Narrative [...] General (Family Medicine) Laurel Toure APRN.NIKKI as Solar Designer (Family Medicine) Hans Mccray APRN.CNP as Solar Designer (Family Medicine) Porfirio Mei MD - Vascular [...] Past Histories independently gathered by the clinical lab support service tech and the remaining scribed note accurately describes [...] Leeanne Sterling MA documented in this encounter [facility] 11-26-2024 Note HNO ID: [id number] Author: GLENNY LUQUE MD Service: ? Author [...] General (Family Medicine) Laurel Toure APRN.NIKKI as Solar Designer (Family Medicine) Hans Mccray APRN.CLINICAL THERAPIST as Solar Designer (Family Medicine) Porfirio Mei MD - Vascular [...] Smoking cessation encou (more content not included)... [facility] 10-07-2024 Note [facility] Medical Records Department [address] [place] [address] History Physical Exam 10/07/24 0753 MR#: [id number] Acct: [id number] Name: ALVARADO COHEN CALLI Rep #: [id number] : 1945 79 From: Porfirio Mei MD PCP: Dr. Glenny Luque MD Status:[facility] Location: [facility] HPI - General HPI Narrative ALVARADO COHEN, is a 79 F who presents with worsening hypertension on multiple medications. She had a duplex that revealed right renal artery stenosis. [facility] Medical History Renal artery stenosis HTN (hypertension) [...] artery stenosis: PLAN: -angiogram possible stent 10/07/24 [id number] Cosigner Signature (if applicable): CC: Dr. Porfirio Mei MD; Dr. Glenny Luque MD Signed [facility] 09-25-2024 History of Present illness Narrative Radiology [...] PATIENT PRESENTS WITH AN IMPLANTABLE OR ATTACHED SACK REPAIRER: No RADIOLOGY DEPARTMENT: Mammography PERIPHERAL IV DATA: Not applicable SIGNED BY: RT David(Lang) September 25, 2024 1:27 PM documented in this encounter [facility] 09-25-2024 Note HNO ID: [id number] Author: SHANTA GARRISON RT(R) Service: ? Author [...] PATIENT PRESENTS WITH AN IMPLANTABLE OR ATTACHED SACK REPAIRER: No RADIOLOGY DEPARTMENT: Mammography PERIPHERAL IV DATA: Not applicable SIGNED BY: RT David(Lang) September 25, 2024 1:27 PM [facility] 09-18-2024 Note HNO ID: [id number] Author: JELANI OZUNA MA Service: ? Author Type: Chief Controller Center Type: Progress Notes Filed: 09/18/2024 13:45 Note [...] orders: Medicare Annual Wellness Visit 11/09/2024 in [facility] with GLENNY LUQUE AWV is PRIMARY/Follow up , For BOTH use modifier 25 Navigation Signature: Jelani Ozuna MA September 18, 2024 1:37 PM [facility] 09-18-2024 History of Present illness Narrative [...] orders: Medicare Annual Wellness Visit 11/09/2024 in [facility] with GLENNY LUQUE AWV is PRIMARY/Follow up , For BOTH use modifier 25 Navigation Signature: Jelani Ozuna MA September 18, 2024 1:37 PM documented in this encounter [facility] 09-18-2024 Note Patient Outreach (JEREMI TNAV) ALVARADO COHEN ([id number]) 1945 F Date Time Provider Department 09/18/24 [...] orders: Medicare Annual Wellness Visit 11/09/2024 in [facility] with GLENNY LUQUE is PRIMARY/Follow [...] Encounter Status:Closed by JELANI OZUNA on 09/18/24 [facility] 07-24-2024 Note HNO ID: [id number] Author: ALLIE LYNCH APRN.CLINICAL THERAPIST Service: ? Author Type: Nurse Practitioner Type: [...] history is provided by the patient. No front desk manager was used. Laceration Review of Systems Constitutional: [...] plan. Both wounds were redressed. Allie Lynch APRN.[facility] 07-24-2024 History of Present illness Narrative Images [...] history is provided by the patient. No front desk manager was used. Laceration Review of Systems Constitutional: [...] Allie Lynch APRN.NIKKI documented in this encounter [facility] 03-26-2024 Telephone encounter Note Patient calling she phoned Dr Alexander Govea office to make appt and they did not have her information. Printed Nephrology consult, insurance card, face sheet, office notes, labs and imaging and faxed to [phone] as requested. [facility] 03-26-2024 Miscellaneous Notes Patient calling she phoned Dr Alexander Govea office to make appt and they did not have her information. Printed Nephrology consult, insurance card, face sheet, office notes, labs and imaging and faxed to [phone] as requested. documented in this encounter [facility] 03-23-2024 Telephone encounter Note Pt called [...] an allergy to this. Yecenia Salcedo LPN [facility] 03-23-2024 Miscellaneous Notes Pt called in [...] Yecenia Salcedo LPN documented in this encounter [facility] 03-23-2024 Telephone encounter Note Patient phones requesting refills as follows: Requested Prescriptions Pending Prescriptions Disp Refills hydrALAZINE (APRESOLINE) 25 mg tablet 180 tablet 1 Sig: Take 1 tablet by mouth two times a day. Patient would like to have this at [facility] for mail order instead of local. Please review and advise. Rosa Ram LPN [facility] 03-23-2024 Miscellaneous Notes Patient phones requesting refills as follows: Requested Prescriptions Pending Prescriptions Disp Refills hydrALAZINE (APRESOLINE) 25 mg tablet 180 tablet 1 Sig: Take 1 tablet by mouth two times a day. Patient would like to have this at [facility] for mail order instead of local. Please review and advise. Rosa Ram LPN documented in this encounter [facility] 03-20-2024 Instructions Hans Mccray APRN.CNP - 03/20/2024 10:29 AM EDT Schedule with Cement Finisher, Dr. Nora Govea [facility], [facility]. Address: [address] [place] [address], [place] [address] Increase Hydralazine to 25 mg twice daily Go to the ER for chest pain, dizziness, blurry vision See us back 3 months. Hans Mccray APRN.NIKKI documented in this encounter [facility] 03-20-2024 History of Present illness Narrative [...] IMPRESSION: 1. No acute renal abnormality detected. Service Unit Operator: ALEX Transcribe Date/Time: Mar 10 2024 8:27A [...] needed. This note was partly generated using [employer] voice recognition dictation and may contain some misspelled or inaccurate words missed on review. documented in this encounter [facility] 03-10-2024 Telephone encounter Note Pt notified of results via Snooxhart. Tiffanie Ruff Ma [facility] 03-10-2024 Miscellaneous Notes Pt notified of results via [employer]. Tiffanie Ruff Ma Please let the patient know that her ultrasound of the kidneys is normal. No kidney disease that would be cause for resistant hypertension. Continue with current medications and follow ups as scheduled. Hans Mccray APRN.CNP documented in this encounter [facility] 03-10-2024 Telephone encounter Note Pt notified via [employer]. Tiffanie Ruff MA [facility] 03-10-2024 Miscellaneous Notes Pt notified via [employer]. Tiffanie Ruff MA documented in this encounter [facility] 03-10-2024 Telephone encounter Note Please let the patient know that her ultrasound of the kidneys is normal. No kidney disease that would be cause for resistant hypertension. Continue with current medications and follow ups as scheduled. Hans Mccray APRN.CNP [facility] 03-09-2024 Telephone encounter Note The following [...] two times a day. Hans Mccray APRN.CNP [facility] 03-09-2024 Miscellaneous Notes The following approved [...] Lala Brewer MA documented in this encounter [facility] 03-09-2024 Telephone encounter Note Patient stopped [...] go to mail order. Lala Brewer MA [facility] 03-06-2024 History of Present illness Narrative [...] PATIENT PRESENTS WITH AN IMPLANTABLE OR ATTACHED SACK REPAIRER: No RADIOLOGY DEPARTMENT: Ultrasound PERIPHERAL IV DATA: Not applicable SIGNED BY: Laly Kauffman RDMS RVT March 06, 2024 1:33 PM documented in this encounter [facility] 02-18-2024 Miscellaneous Notes Patient active [employer]. Patient notified via [employer] message. Lala Brewer MA Please let the [...] Hans Mccray APRN.CNP documented in this encounter [facility] 02-17-2024 Instructions Hans Mccray APRN.CNP - 02/17/2024 11:46 AM EDT Get blood work today Schedule ultrasound of kidneys Stop hydrochlorothiazide Start Chlorthalidone 25 mg daily Start new prescription for Lisinopril 30 mg twice daily. This replaces the Lisinopril 40 mg. See us back in 4 weeks. Hans Mccray APRN.CNP documented in this encounter [facility] 02-17-2024 History of Present illness Narrative [...] KIDNEY/BLADDER - ALDOSTERONE/DIRECT RENIN RATIO Hans Mccray APRN.CLINICAL THERAPIST RTO in 1 months, sooner if needed. This note was partly generated using [employer] voice recognition dictation and may contain some misspelled or inaccurate words missed on review. BP Manual readin/62 Pulse: 83 RIGHT arm REGULAR cuff BP Chasity Average: 188/67 Pulse: 71 LEFT arm REGULAR cuff 1. 199/74 Pulse: 71 2. 188/67 Pulse: 72 3. 189/65 Pulse: 71 4. 187/69 Pulse: 70 BP CHASITY AVERAGE: 188/67 Pulse: 71 documented in this encounter [facility] 02-06-2024 Miscellaneous Notes TC to patient [...] still very high. Thank you. Laurel Toure APRN.CLINICAL THERAPIST Pt was to f/u in 1 mo [...] you. Dia Thompson. documented in this encounter [facility] 09-02-2023 Miscellaneous Notes The following approved [...] NOV not scheduled at this time Candi Maldnoado MA documented in this encounter [facility] 08-08-2023 Miscellaneous Notes August 09, 2023 PID: [id number] Alvarado Cohen [address] [place] [address] Dear Ms. Cohen, We are pleased to [...] report will be kept on file at [facility] as part of your permanent medical record and are available for your continuing care. Thank you for allowing us to help in meeting your health care needs. Sincerely, Dr. Tejada Interpreting Radiologist [facility] (Normal over 40) documented in this encounter [facility] 08-08-2023 History of Present illness Narrative [...] DATA: Not applicable SIGNED BY: Carolina Downing Geostellar [place] August 08, 2023 11:05 AM documented in this encounter [facility] 07-11-2023 Miscellaneous Notes The following approved [...] Rosa Gutierrez LPN documented in this encounter [facility] 07-09-2023 Miscellaneous Notes The following approved medication requests have been transmitted electronically. Requested Prescriptions Pending Prescriptions Disp Refills metoprolol succinate ER (TOPROL XL) 50 mg 24 hr tablet 60 tablet 0 Sig: Take 1 tablet by mouth twice daily. Hans Mccray APRN.CNP Last office visit: 06/12/23 F/u scheduled: none Tiffanie Ruff Ma Patient needs a 1 month emergency supply sent to [facility] she is out at this time. Patient [...] patient. Cyndy Thompson documented in this encounter [facility] 06-12-2023 Instructions Laurel Touer APRN.CNP - 06/12/2023 12:48 PM EDT Make appointment with nephrology for consult. Continue to take all medication as prescribed Check blood pressure twice daily, goal 130/80 or less. If blood pressure is elevated may increase hydralazine 10 mg (2 tab=20 mg) twice daily. Message the office with blood pressure readings. documented in this encounter [facility] 06-12-2023 History of Present illness Narrative [...] to uncontrolled hypertension. Discussed establishing care with [facility] here in [place]. Would like to wait to see specialist. [...] APRN.CNP This note was partially generated using [employer] voice recognition system. Note was reviewed for accuracy. There may be minor misspellings or grammar miscues with [employer] voice recognition. documented in this encounter [facility] 05-13-2023 Miscellaneous Notes Noted, thank you. [...] able to see Dr. Brian at the [facility] [place] location. Patient reports her options are Dr. Caceres at the [place] location or Dr. Brian at the [facility] location. Patient asking provider if she would still recommend Dr. Brian. Patient wants to choose the loaders that provider would recommend but would rather not travel so asking for further review. Call patient back at [phone] with provider response. Please review and advise, Brooklynn Posada, RN documented in this encounter [facility] 05-08-2023 Instructions Laurel Toure APRN.NIKKI - 05/08/2023 1:16 PM EDT Continue to take all medication as prescribed. Add on hydralazine 10 mg twice daily. Monitor blood pressure at home. Recommend consult with nephrology Follow up in 1 month or sooner as needed. documented in this encounter [facility] 05-08-2023 History of Present illness Narrative [...] APRN.CNP This note was partially generated using [employer] voice recognition system. Note was reviewed for accuracy. There may be minor misspellings or grammar miscues with [employer] voice recognition. documented in this encounter [facility] 04-08-2023 Instructions Laurel Toure APRN.CNP - [...] 130/80 or less documented in this encounter [facility] 04-08-2023 History of Present illness Narrative [...] APRN.CNP This note was partially generated using [employer] voice recognition system. Note was reviewed for accuracy. There may be minor misspellings or grammar miscues with [employer] voice recognition. documented in this encounter [facility] 08-27-2022 Instructions Laurel Toure APRN.CNP - 08/27/2022 10:29 AM EDT Get fasting labs completed, no food 8-10 hours prior. May black coffee and water. Continue to take all medications as prescribed. Monitor Blood Pressure at home, please follow up in the office BP is elevate. Follow up pending test results. Health Promotion: - Eat healthy -- go to [employer] to get started - Have a yearly [...] - Wear sunscreen documented in this encounter [facility] 08-27-2022 History of Present illness Narrative [...] Procedure Laterality Date COLONOSCOP W/ OR W/O [facility] SPEC 02/18/07 COLONOSCOP W/ OR W/O [facility] SPEC 06/10/2017 Colonoscopy ALLERGIES Codeine, [...] APRN.NIKKI This note was partially generated using [employer] voice recognition system. Note was reviewed for accuracy. There may be minor misspellings or grammar miscues with [employer] voice recognition. documented in this encounter [facility] 06-14-2022 Miscellaneous Notes Patient active MyChart. Patient notified via [employer] message. Lala Brewer MA documented in this encounter [facility] 06-12-2022 Miscellaneous Notes June 12, 2022 PID: [id number] Alvarado Cohen [address] [place] [address] Dear Ms. Cohen, We are pleased to [...] report will be kept on file at [facility] as part of your permanent medical record and are available for your continuing care. Thank you for allowing us to help in meeting your health care needs. Sincerely, Dr. Mathews Interpreting Radiologist [facility] (Normal over 40) documented in this encounter [facility] 06-11-2022 History of Present illness Narrative [...] 2022 2:58 PM documented in this encounter [facility] 02-26-2014 History of Past i llness Narrative Problem Noted Date Resolved Date Hypokalemia 02/26/2014 04/10/2017 Vitamin D deficiency 09/03/2007 04/10/2017 documented as of this encounter (statuses as of 06/08/2022) [facility] History of Past illness Narrative* Problem Noted Date Resolved Date Hypokalemia 02/26/2014 04/10/2017 Vitamin D deficiency 09/03/2007 04/10/2017 documented as of this encounter (statuses as of 06/12/2022) [address]25-2014 History of Past illness Narrative* Problem Noted Date Resolved Date Hypokalemia 02/26/2014 04/10/2017 Vitamin D deficiency 09/03/2007 04/10/2017 documented as of this encounter (statuses as of 06/14/2022) [address]25-2014 History of Past illness Narrative* Problem Noted Date Resolved Date Hypokalemia 02/26/2014 04/10/2017 Vitamin D deficiency 09/03/2007 04/10/2017 documented as of this encounter (statuses as of 08/27/2022) [address]25-2014 History of Past illness Narrative* Problem Noted Date Resolved Date Hypokalemia 02/26/2014 04/10/2017 Vitamin D deficiency 09/03/2007 04/10/2017 documented as of this encounter (statuses as of 04/09/2023) [place] [address]25-2014 History of Past illness Narrative* Problem Noted Date Resolved Date Hypokalemia 02/26/2014 04/10/2017 Vitamin D deficiency 09/03/2007 04/10/2017 documented as of this encounter (statuses as of 05/08/2023) [place] [address]-2014 History of Past illness Narrative* Problem Noted Date Diagnosed Date Resolved Date Hypokalemia 02/26/2014 04/10/2017 Vitamin D deficiency 09/03/2007 017 documented as of this encounter (statuses as of 05/13/2023) [facility] Narrative* Problem Noted Date Diagnosed Date Resolved Date Hypokalemia 02/26/2014 04/10/2017 Vitamin D deficiency 09/03/2007 017 documented as of this encounter (statuses as of 06/13/2023) [place] [address]-2014 History of Past illness Narrative* Problem Noted Date Diagnosed Date Resolved Date Hypokalemia 02/26/2014 04/10/2017 Vitamin D deficiency 09/03/2007 017 documented as of this encounter (statuses as of 06/13/2023) [place] [address]2014 History of Past illness Narrative* Problem Noted Date Diagnosed Date Resolved Date Hypokalemia 02/26/2014 04/10/2017 Vitamin D deficiency 09/03/2007 017 documented as of this encounter (statuses as of 07/09/2023) [address]25-2014 History of Past illness Narrative* Problem Noted Date Diagnosed Date Resolved Date Hypokalemia 02/26/2014 04/10/2017 Vitamin D deficiency 09/03/2007 017 documented as of this encounter (statuses as of 07/21/2023) [address]25-2014 History of Past illness Narrative* Problem Noted Date Diagnosed Date Resolved Date Hypokalemia 02/26/2014 04/10/2017 Vitamin D deficiency 09/03/2007 017 documented as of this encounter (statuses as of 08/10/2023) [address]25-2014 History of Past illness Narrative* Problem Noted Date Diagnosed Date Resolved Date Hypokalemia 02/26/2014 04/10/2017 Vitamin D deficiency 09/03/2007 017 documented as of this encounter (statuses as of 08/27/2023) [address]25-2014 History of Past illness Narrative* Problem Noted Date Diagnosed Date Resolved Date Hypokalemia 02/26/2014 04/10/2017 Vitamin D deficiency 09/03/2007 017 documented as of this encounter (statuses as of 09/02/2023) [place] [address]25[address]2014 History of Past illness Narrative* Problem Noted Date Diagnosed Date Resolved Date Hypokalemia 02/26/2014 04/10/2017 Vitamin D deficiency 09/03/2007 017 documented as of this encounter (statuses as of 09/08/2023) [address]25-2014 History of Past illness Narrative* Problem Noted Date Diagnosed Date Resolved Date Hypokalemia 02/26/2014 04/10/2017 Vitamin D deficiency 09/03/2007 017 documented as of this encounter (statuses as of 01/13/2024) [place] [address]25-2014 History of Past illness Narrative* Problem Noted Date Diagnosed Date Resolved Date Hypokalemia 02/26/2014 04/10/2017 Vitamin D deficiency 09/03/2007 017 documented as of this encounter (statuses as of 02/07/2024) [facility] of [facility] Narrative* Problem Noted Date Diagnosed Date Resolved Date Hypokalemia 02/26/2014 04/10/2017 Vitamin D deficiency 09/03/2007 017 documented as of this encounter (statuses as of 02/18/2024) [facility] of Past illness Narrative* Problem Noted Date Diagnosed Date Resolved Date Hypokalemia 02/26/2014 04/10/2017 Vitamin D deficiency 09/03/2007 017 documented as of this encounter (statuses as of 02/19/2024) [facility] Diagnosis Visit for screening mammogram- Primary Other screening mammogram [facility] Diagnosis Essential hypertension, benign- Primary Hyperlipidemia with target LDL less than 100 Other and unspecified hyperlipidemia Tobacco abuse Tobacco use disorder [facility] Diagnosis Essential hypertension, benign- Primary [facility] Diagnosis Uncontrolled hypertension- Primary Unspecified essential hypertension [facility] Diagnosis Uncontrolled hypertension- Primary Unspecified essential hypertension [facility] Diagnosis Uncontrolled hypertension Unspecified essential hypertension [facility] Diagnosis Visit for screening mammogram- Primary Other screening mammogram [facility] Diagnosis Uncontrolled hypertension Unspecified essential hypertension [facility] Diagnosis Uncontrolled hypertension Unspecified essential hypertension [facility] Diagnosis Uncontrolled hypertension Unspecified essential hypertension [facility] Diagnosis Essential hypertension, benign- Primary Resistant hypertension [facility] Diagnosis Essential hypertension, benign Resistant hypertension [facility] Diagnosis Essential hypertension, benign Uncontrolled hypertension Unspecified essential hypertension [facility] Diagnosis Essential hypertension, benign- Primary Uncontrolled hypertension Unspecified essential hypertension [facility] Diagnosis Essential hypertension, benign Uncontrolled hypertension Unspecified essential hypertension [facility] Diagnosis Open wound- Primary Open wound(s) (multiple) of unspecified site(s), without mention of complication [facility] Diagnosis Encounter for Medicare annual [...] vascular disease, unspecified [facility] Diagnosis Age-related osteoporosis without current pathological fracture Senile osteoporosis [facility] Diagnosis Essential hypertension, benign [facility] Diagnosis Osteoporosis, unspecified osteoporosis type, unspecified pathological fracture presence- Primary Essential hypertension, benign [facility] Diagnosis Essential hypertension, benign- Primary Resistant hypertension Uncontrolled hypertension Unspecified essential hypertension Osteoporosis, unspecified osteoporosis type, unspecified pathological fracture presence Claudication Peripheral vascular disease, unspecified Tobacco use disorder [facility] Diagnostic Procedure Only (Routine) - Pending Review Specialty Diagnoses / Procedures Referred By Sallie simpson Referred To Contact [facility] Diagnoses Visit for screening mammogram Procedures [facility] SCREENING SCREENING MAMMOGRAPHY BI 2-VIEW BREAST INC Indio Busby APRN.CNP, DNP [address] [place] [address] [facility] [address] [place] [id number] Referral ID Status Reason Start Date Expiration Date Visits Requested Visits Authorized [id number] Pending Review Auto-Generat ed Referral 06/08/2022 07/08/2023 1 1 [facility] Diagnostic Procedure Only (Routine) - Pending Review Specialty Diagnoses / Procedures Referred By Contnaomi t Referred To Contact [facility] Diagnoses Visit for screening mammogram Procedures [facility] SCREENING SCREENING MAMMOGRAPHY BI 2-VIEW BREAST INC Glenny Melton MD [address] [place] [address] [facility] [address] [place] [address] Referral ID Status Reason Start Date Expiration Date Visits Requested Visits Authorized [id number] Pending Review Auto-Generat ed Referral 07/21/2023 08/17/2024 1 1 [facility] for referral (narrative)* Diagnostic Procedure Only (Routine) - Authorized Specialty Diagnoses / Procedures Referred By Contac t Referred To Contact [facility] Diagnoses Essential hypertension, benign Resistant hypertension Procedures US KIDNEY/BLADDER US RETROPERITONEAL REAL TIME W/IMAGE COMPLETE Hans Mccray APRN.CNP [address] [place] [address] [place] [address] Referral ID Status Reason Start Date Expiration Date Visits Requested Visits Authorized [id number] Authorized Auto-Generat ed Referral 02/17/2024 03/18/2025 1 1 [facility] for referral (narrative)* Diagnostic Procedure Only (Routine) - Authorized Specialty Diagnoses / Procedures Referred By Contac t Referred To Contact XR IMAGING Diagnoses Age-related osteoporosis without current pathological fracture Procedures DXA-AXIAL SKELETON DXA BONE DENSITY STUDY 1/> SITES AXIAL SKEL Glenny Luque MD [address] [place] [address] [place] [address] Referral ID Status Reason Start Date Expiration Date Visits Requested Visits Authorized [id number] Authorized Auto-Generat ed Referral 11/26/2024 12/26/2025 1 1 * Outpatient Procedure (Routine) - Authorized Specialty Diagnoses / Procedures Referred By Contac t Referred [facility] Diagnoses Uncontrolled hypertension Leg fatigue Claudication (HCC) Procedures PVR ANK PRESS [facility] NON-INVAS PHYSIOLOGIC STD EXTREMITY ART 2 LEVEL Glenny Luque MD [address] [place] [address] [facility] [address] [place] [address] Referral ID Status Reason Start Date Expiration Date Visits Requested Visits Authorized [id number] Authorized Auto-Generat ed Referral 11/26/2024 11/26/2025 1 1 [facility] for visit Narrative* Diagnostic Procedure Only (Routine) - Closed Specialty Diagnoses / Procedures Referred By Contac t Referred To Contact [facility] Diagnoses Visit for screening mammogram Procedures [facility] SCREENING SCREENING MAMMOGRAPHY BI 2-VIEW BREAST INC CAD Indio Robledo APRN.CLINICAL THERAPIST, DNP [address] [place] [address] [facility] [address] [place] [address] Referral ID Status Reason Start Date Expiration Date V isits Requested Visits Authorized [id number] Closed Auto-Generated Referral Patient Cleared - INN Insurance Found 06/08/2022 07/08/2023 1 1 [facility] for visit Narrative* Diagnostic Procedure Only (Routine) - Closed Specialty Diagnoses / Procedures Referred By Contac t Referred To Contact [facility] Diagnoses Visit for screening mammogram Procedures [facility] SCREENING SCREENING MAMMOGRAPHY BI 2-VIEW BREAST INC Glenny Melton MD [address] [place] [address] [facility] [address] [place] [address] Referral ID Status Reason Start Date Expiration Date V isits Requested Visits Authorized [id number] Closed Auto-Generate d Referral 07/21/2023 08/17/2024 1 1 [facility] for visit Narrative* Diagnostic Procedure Only (Routine) - Closed Specialty Diagnoses / Procedures Referred By Sallie t Referred To Contact [facility] Diagnoses Visit for screening mammogram Procedures [facility]SEFA SCREENING SCREENING MAMMOGRAPHY BI 2-VIEW BREAST INC Glenny Melton MD [address] [place] [address] [facility] [address] [place] [address] Referral ID Status Reason Start Date Expiration Date V isits Requested Visits Authorized [id number] Closed Auto-Generate d Referral 09/21/2024 10/18/2025 1 1 [facility]* Diagnostic Procedure Only (Routine) - Closed Specialty Diagnoses / Procedures Referred By Rohiniac t Referred To Contact XR IMAGING Diagnoses Age-related osteoporosis without current pathological fracture Procedures DXA-AXIAL SKELETON DXA BONE DENSITY STUDY / SITES AXIAL Glenny Dial MD [address] [place] [address] Phone: tel: fax: [place] [address] Referral ID Status Reason Start Date Expiration Date V isits Requested Visits Authorized [id number] Closed Auto-Generate d Referral 11/26/2024 12/26/2025 1 1 [facility] Advance Directives No Advanced Directives Records FoundDocuments on File Type Date Recorded Patient Director Family Expl anation Advance Directive(s) 06/10/2017 11:09 AM Advance Directive(s) 06/10/2017 10:58 AM Documents on File Type Date Recorded Patient Director Family Expl anation Advance Directive(s) 06/10/2017 10:58 AM Documents on File Type Date Recorded Patient Director Family Expl anation Advance Directive(s) 06/10/2017 10:58 AM Reason for Referral Specialty Diagnoses / Procedures Referred By Contac t Referred To Contact Nephrology Diagnoses Uncontrolled hypertension Procedures CONSULT TO NEPHROLOGY OFFICE/OUTPATIENT [facility] MDM 60-74 MINUTES Laurel Toure, FINANCE INTERN.CLINICAL THERAPIST [address] [place] [address] Referral ID Status Reason Start Date Expiration Date Visits Requested Visits Authorized [id number] Authorized PCP Requested Referral 05/08/2023 05/07/2024 1 1 Specialty Diagnoses / Procedures Referred By Contac t Referred To Contact Nephrology Diagnoses Essential hypertension, benign Uncontrolled hypertension Procedures CONSULT TO NEPHROLOGY OFFICE/OUTPATIENT NEW HIGH MDM 60 MINUTES Hans Mccray, FINANCE INTERN.CLINICAL THERAPIST [address] [place] [address] Referral ID Status Reason Start Date Expiration Date Visits Requested Visits Authorized [id number] Authorized PCP Requested Referral 03/20/2024 03/20/2025 1 [...] or prosecute any alcohol or drug abuse patient.[facility] the event this information is protected by the Federal Confidentiality of Alcohol and Drug Abuse Patient Records regulations: The Federal rules restrict any use of the information to criminally investigate or prosecute any alcohol or drug abuse patient.[facility] the event this information is protected by the Federal Confidentiality of Alcohol and Drug Abuse Patient Records regulations: The Federal rules restrict any use of the information to criminally investigate or prosecute any alcohol or drug abuse patient.[facility] the event this information is protected by the Federal Confidentiality of Alcohol and Drug Abuse Patient Records regulations: The Federal rules restrict any use of the information to criminally investigate or prosecute any alcohol or drug abuse patient.[facility] HospitalIn the event this information is protected by the Federal Confidentiality of Alcohol and Drug Abuse Patient Records regulations: The Federal rules restrict any use of the information to criminally investigate or prosecute any alcohol or drug abuse patient.[facility] HospitalIn the event this information is protected by the Federal Confidentiality of Alcohol and Drug Abuse Patient Records regulations: The Federal rules restrict any use of the information to criminally investigate or prosecute any alcohol or drug abuse patient.[facility] HospitalIn the event this information is protected by the Federal Confidentiality of Alcohol and Drug Abuse Patient Records regulations: The Federal rules restrict any use of the information to criminally investigate or prosecute any alcohol or drug abuse patient.[facility] HospitalIn the event this information is protected by the Federal Confidentiality of Alcohol and Drug Abuse Patient Records regulations: The Federal rules restrict any use of the information to criminally investigate or prosecute any alcohol or drug abuse patient.[facility] HospitalIn the event this information is protected by the Federal Confidentiality of Alcohol and Drug Abuse Patient Records regulations: The Federal rules restrict any use of the information to criminally investigate or prosecute any alcohol or drug abuse patient.[facility] HospitalIn the event this information is protected by the Federal Confidentiality of Alcohol and Drug Abuse Patient Records regulations: The Federal rules restrict any use of the information to criminally investigate or prosecute any alcohol or drug abuse patient.[facility] HospitalIn the event this information is protected by the Federal Confidentiality of Alcohol and Drug Abuse Patient Records regulations: The Federal rules restrict any use of the information to criminally investigate or prosecute any alcohol or drug abuse patient.[facility] HospitalIn the event this information is protected by the Federal Confidentiality of Alcohol and Drug Abuse Patient Records regulations: The Federal rules restrict any use of the information to criminally investigate or prosecute any alcohol or drug abuse patient.[facility] HospitalIn the event this information is protected by the Federal Confidentiality of Alcohol and Drug Abuse Patient Records regulations: The Federal rules restrict any use of the information to criminally investigate or prosecute any alcohol or drug abuse patient.[facility] HospitalIn the event this information is protected by the Federal Confidentiality of Alcohol and Drug Abuse Patient Records regulations: The Federal rules restrict any use of the information to criminally investigate or prosecute any alcohol or drug abuse patient.[facility] HospitalIn the event this information is protected by the Federal Confidentiality of Alcohol and Drug Abuse Patient Records regulations: The Federal rules restrict any use of the information to criminally investigate or prosecute any alcohol or drug abuse patient.[facility] HospitalIn the event this information is protected by the Federal Confidentiality of Alcohol and Drug Abuse Patient Records regulations: The Federal rules restrict any use of the information to criminally investigate or prosecute any alcohol or drug abuse patient.[facility] HospitalIn the event this information is protected by the Federal Confidentiality of Alcohol and Drug Abuse Patient Records regulations: The Federal rules restrict any use of the information to criminally investigate or prosecute any alcohol or drug abuse patient.[facility] HospitalIn the event this information is protected by the Federal Confidentiality of Alcohol and Drug Abuse Patient Records regulations: The Federal rules restrict any use of the information to criminally investigate or prosecute any alcohol or drug abuse patient.[facility] HospitalIn the event this information is protected by the Federal Confidentiality of Alcohol and Drug Abuse Patient Records regulations: The Federal rules restrict any use of the information to criminally investigate or prosecute any alcohol or drug abuse patient.[facility] HospitalIn the event this information is protected by the Federal Confidentiality of Alcohol and Drug Abuse Patient Records regulations: The Federal rules restrict any use of the information to criminally investigate or prosecute any alcohol or drug abuse patient.[facility] HospitalIn the event this information is protected by the Federal Confidentiality of Alcohol and Drug Abuse Patient Records regulations: The Federal rules restrict any use of the information to criminally investigate or prosecute any alcohol or drug abuse patient.[facility] HospitalIn the event this information is protected by the Federal Confidentiality of Alcohol and Drug Abuse Patient Records regulations: The Federal rules restrict any use of the information to criminally investigate or prosecute any alcohol or drug abuse patient.[facility] HospitalIn the event this information is protected by the Federal Confidentiality of Alcohol and Drug Abuse Patient Records regulations: The Federal rules restrict any use of the information to criminally investigate or prosecute any alcohol or drug abuse patient.[facility] HospitalIn the event this information is protected by the Federal Confidentiality of Alcohol and Drug Abuse Patient Records regulations: The Federal rules restrict any use of the information to criminally investigate or prosecute any alcohol or drug abuse patient.[facility] HospitalIn the event this information is protected by the Federal Confidentiality of Alcohol and Drug Abuse Patient Records regulations: The Federal rules restrict any use of the information to criminally investigate or prosecute any alcohol or drug abuse patient.[facility] HospitalIn the event this information is protected by the Federal Confidentiality of Alcohol and Drug Abuse Patient Records regulations: The Federal rules restrict any use of the information to criminally investigate or prosecute any alcohol or drug abuse patient.[facility] HospitalIn the event this information is protected by the Federal Confidentiality of Alcohol and Drug Abuse Patient Records regulations: The Federal rules restrict any use of the information to criminally investigate or prosecute any alcohol or drug abuse patient.[facility] HospitalIn the event this information is protected by the Federal Confidentiality of Alcohol and Drug Abuse Patient Records regulations: The Federal rules restrict any use of the information to criminally investigate or prosecute any alcohol or drug abuse patient.[facility] HospitalIn the event this information is protected by the Federal Confidentiality of Alcohol and Drug Abuse Patient Records regulations: The Federal rules restrict any use of the information to criminally investigate or prosecute any alcohol or drug abuse patient.[facility] HospitalIn the event this information is protected by the Federal Confidentiality of Alcohol and Drug Abuse Patient Records regulations: The Federal rules restrict any use of the information to criminally investigate or prosecute any alcohol or drug abuse patient.[facility] HospitalIn the event this information is protected by the Federal Confidentiality of Alcohol and Drug Abuse Patient Records regulations: The Federal rules restrict any use of the information to criminally investigate or prosecute any alcohol or drug abuse patient.[facility] HospitalIn the event this information is protected by the Federal Confidentiality of Alcohol and Drug Abuse Patient Records regulations: The Federal rules restrict any use of the information to criminally investigate or prosecute any alcohol or drug abuse patient.[facility] HospitalIn the event this information is protected by the Federal Confidentiality of Alcohol and Drug Abuse Patient Records regulations: The Federal rules restrict any use of the information to criminally investigate or prosecute any alcohol or drug abuse patient.[facility] HospitalIn the event this information is protected by the Federal Confidentiality of Alcohol and Drug Abuse Patient Records regulations: The Federal rules restrict any use of the information to criminally investigate or prosecute any alcohol or drug abuse patient.[facility] HospitalIn the event this information is protected by the Federal Confidentiality of Alcohol and Drug Abuse Patient Records regulations: The Federal rules restrict any use of the information to criminally investigate or prosecute any alcohol or drug abuse patient.[facility] HospitalIn the event this information is protected by the Federal Confidentiality of Alcohol and Drug Abuse Patient Records regulations: The Federal rules restrict any use of the information to criminally investigate or prosecute any alcohol or drug abuse patient.[facility] HospitalIn the event this information is protected by the Federal Confidentiality of Alcohol and Drug Abuse Patient Records regulations: The Federal rules restrict any use of the information to criminally investigate or prosecute any alcohol or drug abuse patient.[facility] HospitalIn the event this information is protected by the Federal Confidentiality of Alcohol and Drug Abuse Patient Records regulations: The Federal rules restrict any use of the information to criminally investigate or prosecute any alcohol or drug abuse patient.[facility] HospitalIn the event this information is protected by the Federal Confidentiality of Alcohol and Drug Abuse Patient Records regulations: The Federal rules restrict any use of the information to criminally investigate or prosecute any alcohol or drug abuse patient.[facility] HospitalIn the event this information is protected by the Federal Confidentiality of Alcohol and Drug Abuse Patient Records regulations: The Federal rules restrict any use of the information to criminally investigate or prosecute any alcohol or drug abuse patient.[facility] Care Teams (unrecognized sec tion and content) Bone Tender Relationship Specialty Start Date End Date Indio Robledo, MADHAVI.NIKKI, DNP [address] [place] [address] PCP - General Family Practice 10/11/21 Bone Tender Relationship Specialty Start Date End Date Indio Robledo APRN.NIKKI, DNP [address] [place] [address] PCP - General Family Practice 10/11/21 Bone Tender Relationship Specialty Start Date End Date Glenny Luque MD [address] [place] [address] PCP - General Family Medicine 08/27/22 Bone Tender Relationship Specialty Start Date End Date Glenny Luque MD [address] [place] [address] PCP - General Family Medicine 08/27/22 Bone Tender Relationship Specialty Start Date End Date Glenny Luque MD [address] [place] [address] PCP - General Family Medicine 08/27/22 Bone Tender Relationship Specialty Start Date End Date Glenny Luque MD [address] [facility] [place] [address] PCP - General Family Medicine 08/27/22 Bone Tender Relationship Specialty Start Date End Date Glenny Luque MD [address] [facility] [place] [address] PCP - General Family Medicine 08/27/22 Bone Tender Relationship Specialty Start Date End Date Glenny Luque MD [address] [facility] [place] [address] PCP - General Family Medicine 08/27/22 Bone Tender Relationship Specialty Start Date End Date Glenny Luque MD [address] [facility] [place] [address] PCP - General Family Medicine 08/27/22 Bone Tender Relationship Specialty Start Date End Date Glenny Luque MD [address] [facility] [place] [address] PCP - General Family Medicine 08/27/22 Bone Tender Relationship Specialty Start Date End Date Glenny Luque MD [address] [facility] [place] [address] PCP - General Family Medicine 08/27/22 Bone Tender Relationship Specialty Start Date End Date Glenny Luque MD [address] [facility] [place] [address] PCP - General Family Medicine 08/27/22 Bone Tender Relationship Specialty Start Date End Date Glenny Luque MD [address] [facility] [place] [address] PCP - General Family Medicine 08/27/22 Bone Tender Relationship Specialty Start Date End Date Glenny Luque MD [address] [facility] [place] [address] PCP - General Family Medicine 08/27/22 Bone Tender Relationship Specialty Start Date End Date Glenny Luque MD [address] [facility] [place] [address] PCP - General Family Medicine 08/27/22 Bone Tender Relationship Specialty Start Date End Date Glenny Luque MD [address] [facility] [place] [address] PCP - General Family Medicine 08/27/22 Bone Tender Relationship Specialty Start Date End Date Glenny Luque MD [address] [facility] [place] [address] PCP - General Family Medicine 08/27/22 Bone Tender Relationship Specialty Start Date End Date Glenny Luque MD [address] [facility] [place] [address] PCP - General Family Medicine 08/27/22 Bone Tender Relationship Specialty Start Date End Date Glenny Luque MD [address] [facility] [place] [address] PCP - General Family Medicine 08/27/22 Bone Tender Relationship Specialty Start Date End Date Glenny Luque MD [address] [facility] [place] [address] PCP - General Family Medicine 08/27/22 Bone Tender Relationship Specialty Start Date End Date Glenny Luque MD [address] [facility] [place] [address] PCP - General Family Medicine 08/27/22 Bone Tender Relationship Specialty Start Date End Date Glenny Luque MD [address] [place] [address] PCP - General Family Medicine 08/27/22 Laurel Toure APRN.CLINICAL THERAPIST [address] [place] [address] Solar Designer Family Medicine 10/11/24 Hans Mccray APRN.CLINICAL THERAPIST [address] [place] [address] Solar Designer Family Medicine 10/20/24 Bone Tender Relationship Specialty Start Date End Date Glenny Luque MD [address] [place] [address] PCP - General Family Medicine 08/27/22 Laurel Toure APRN.CLINICAL THERAPIST [address] [place] [address] Solar Designer Family Medicine 10/11/24 Hans Mccray APRN.CLINICAL THERAPIST [address] [facility] [place] [address] Solar Designer Family Medicine 10/20/24 Bone Tender Relationship Specialty Start Date End Date Glenny Luque MD [address] [place] [address] PCP - General Family Medicine 08/27/22 Laurel Toure APRN.CLINICAL THERAPIST [address] [facility] [place] [address] Solar Designer Family Medicine 10/11/24 Hans Mccray APRN.CLINICAL THERAPIST [address] [facility] [place] [address] Solar Designer Family Medicine 10/20/24 Bone Tender Relationship Specialty Start Date End Date Glenny Luque MD [address] [facility] [place] [address] PCP - General Family Medicine 08/27/22 Laurel Toure APRN.CLINICAL THERAPIST [address] [facility] [place] [address] Solar Designer Family Medicine 10/11/24 Hans Mccray APRN.CLINICAL THERAPIST [address] [facility] [place] [address] Solar Designer Family Medicine 10/20/24 Bone Tender Relationship Specialty Start Date End Date Glenny Luque MD [address] [facility] [place] [address] PCP - General Family Medicine 08/27/22 Laurel Toure APRN.CLINICAL THERAPIST [address] [facility] [place] [address] Solar Designer Family Medicine 10/11/24 Hans Mccray APRN.CLINICAL THERAPIST [address] [facility] [place] [address] Solar Designer Family Medicine 10/20/24 Bone Tender Relationship Specialty Start Date End Date Glenny Luque MD [address] [facility] [place] [address] PCP - General Family Medicine 08/27/22 Hans Mccray APRN.CLINICAL THERAPIST [address] [place], [place] [address] Solar Designer Family [facility] 10/20/24 Bone Tender Relationship Specialty Start Date End Date Glenny Luque MD [address] [place], [place] [id number] PCP - General Family Medicine 08/27/22 Hans Mccray APRN.CLINICAL THERAPIST [address] [place], [place] [id number] Solar Designer [facility] 10/20/24 Bone Tender Relationship Specialty Start Date End Date Glenny Luque MD [address] [place], [place] [address] PCP - General Family Medicine 08/27/22 Hans Mccray APRN.CLINICAL THERAPIST [address] [place], [place] [address] Solar Designer Family [facility] 10/20/24 Reason for Visit (unrecogniz ed [...] RETROPERITONEAL REAL TIME W/IMAGE COMPLETE Hans Mccray APRN.CLINICAL THERAPIST [address] [place] [address] [place] [address] Referral ID Status Reason Start Date Expiration Date V isits Requested Visits Authorized [id number] Closed Auto-Generate d Referral 02/17/2024 03/18/2025 1 [...] Comments Population Health Navigation Outreach [facility]07[facility]2025 [facility] Reason Comments medical consultation form Luanne Oral S [facility] INFORMATION SOURCE (unrecogn ized section and content) DATE CREATED AUTHOR 10/31/2024 [facility] DATE CREATED AUTHOR AUTHOR'S ORGANIZ ATION 04/30/2025 [facility] FOR RECORDS PERTAINING TO PATIENTS WHO [...] BE BASED ON THE PRIMARY CLINICAL RECORDS. [employer] provides no warranty or guarantee of the accuracy or completeness of information in this document.
--- NOTE | 2025-05-29 16:39 | ED.RN ---
Report called to Diego in ICU.
--- NOTE | 2025-05-29 16:42 | ED.RN ---
Fluids paused per Dr Burns.
--- NOTE | 2025-05-29 16:58 | ECHOD_ITS ---
Reason For Study Reason For Study: SOB Procedure This was a 2D Doppler, Color Flow transthoracic echocardiogram. Exam performed portable in ICU/CCU. Left Ventricle Normal LV size. Left ventricular systolic function is normal. The left ventricular ejection fraction is 65 %. No regional wall motion abnormalities noted. Right Ventricle Normal RV size. Normal systolic function. Atria Normal left atrium. Normal right atrium. Mitral Valve Bileaflet diffuse mitral valve thickening. Moderate (2+) eccentric mitral valve insufficiency. Tricuspid Valve Normal tricuspid valve. Mild to moderate (1-2+) tricuspid valve insufficiency. Pulmonary artery systolic pressure is 52 mmHg. Moderate pulmonary hypertension. Aortic Valve Trisinus/trileaflet aortic valve. Pulmonic Valve Normal pulmonic valve. Great Vessels Normal aortic root. The pulmonary artery is normal size. Inferior vena cava collapse with respiration. Pericardium/Pleural No pericardial effusion. MMode/2D Measurements & Calculations LVIDd: 4.6 cm IVSd: 1.1 cm LVOT diam: 1.8 cm LVIDs: 2.4 cm LVPWd: 1.1 cm LVOT area: 2.7 cm2 RVDd: 3.4 cm FS: 48.7 % asc Aorta Diam: 2.3 cm LAV(MOD-bp): 54.6 ml LVAd ap4: 27.7 cm2 LAV(MOD-bp) Indexed: 34.9 ml/m2 LVLd ap4: 7.4 cm LAV(MOD-sp2): 72.1 ml EDV(MOD-sp4): 86.1 ml LAV(MOD-sp4): 40.2 ml EDV(sp4-el): 87.7 ml LVAs ap4: 15.5 cm2 LVLs ap4: 6.2 cm ESV(MOD-sp4): 32.9 ml ESV(sp4-el): 32.8 ml EF(MOD-sp4): 61.8 % EF(sp4-el): 62.6 % LVAd ap2: 27.6 cm2 SV(MOD-sp4): 53.2 ml SV(MOD-sp2): 56.2 ml LVLd ap2: 7.5 cm SI(MOD-sp4): 33.9 ml/m2 SI(MOD-sp2): 35.8 ml/m2 EDV(MOD-sp2): 86.6 ml EDV(sp2-el): 86.6 ml LVAs ap2: 14.6 cm2 LVLs ap2: 6.3 cm ESV(MOD-sp2): 30.5 ml ESV(sp2-el): 28.8 ml EF(MOD-sp2): 64.8 % SV(sp4-el): 54.9 ml LA dimension(2D): 3.8 cm LA A4 area: 16.5 cm2 RA A4 area: 13.9 cm2 TAPSE: 2.2 cm Time Measurements MV dec time: 0.15 sec Doppler Measurements & Calculations MV E max luciano: 127.3 cm/sec Lat Peak E' Luciano: 6.8 cm/sec Med Peak E' Luciano: 6.3 cm/sec MV A max luciano: 71.1 cm/sec E/E' lat: 18.6 E/E' med: 20.2 MV E/A: 1.8 Ao V2 max: 148.2 cm/sec LV V1 max: 129.7 cm/sec MV dec slope: 873.5 cm/sec2 Ao max P.8 mmHg LV V1 max P.7 mmHg Ao V2 mean: 107.5 cm/sec LV V1 mean P.3 mmHg Ao mean P.0 mmHg LV V1 mean: 101.3 cm/sec Ao V2 VTI: 38.1 cm LV V1 VTI: 36.7 cm AV (velocity ratio): 0.96 MOSES(I,D): 2.6 cm2 MOSES(V,D): 2.3 cm2 SV(LVOT): 97.5 ml PA V2 max: 88.9 cm/sec TR max luciano: 348.4 cm/sec TR max P.6 mmHg ECHO/Echo Complete Interpretation Summary Normal LV size. Left ventricular systolic function is normal. The left ventricular ejection fraction is 65 %. Moderate (2+) eccentric mitral valve insufficiency. Pulmonary artery systolic pressure is 52 mmHg. Moderate pulmonary hypertension. Ordering Physician: Conchita Burns Referring Physician: Loyd Luque Performed By: Evelyn Darby RDCS
[2025-05-29 17:20] LABS: Osmolality, Serum 236 mOsm/KG (280-301)
[2025-05-29 17:21] LABS: Osmolality, Urine 371 mOsm/KG
[2025-05-29 17:56] LABS: Anion Gap 13 (5-15); BUN 21 mg/dL (4-19); BUN/Creat Ratio 22.2 RATIO (10-20); Calcium,Total 8.6 mg/dL (7.6-11.0); Carbon Dioxide 22.2 mmol/L (21.0-32.0); Chloride 74 mmol/L (98-108); Estimated Creatinine Clearance 40.80 ml/min (50-250); Glucose 106 mg/dL (70-99); Potassium 3.3 mmol/L (3.3-5.1)
[2025-05-29 18:02] LABS: Troponin T High Sens 4 HR 17 ng/L (<=14)
--- NOTE | 2025-05-29 18:10 | PCM.HOSP.N ---
Hospitalist Note Discussed with nephrology, given patient's serum and urine osmolalities and urine sodium/full workup, fluid restriction of 1200 cc was advised with no need for fluids or hypertonic saline at this time unless clinical status were to change. Chlorthalidone held. Nephrology will see in consultation
[2025-05-29] MEDS: Metoprolol(XL)Succ 50 MG Tablet PO (18:15)
[2025-05-29 22:47] LABS: Anion Gap 11 (5-15); BUN 19 mg/dL (4-19); BUN/Creat Ratio 20.0 RATIO (10-20); Calcium,Total 8.4 mg/dL (7.6-11.0); Carbon Dioxide 22.3 mmol/L (21.0-32.0); Chloride 74 mmol/L (98-108); Estimated Creatinine Clearance 39.95 ml/min (50-250); Glucose 106 mg/dL (70-99); Potassium 3.3 mmol/L (3.3-5.1)
--- NOTE | 2025-05-29 22:54 | PCM.HOSP.N ---
Hospitalist Note Sodium still low at 117. Will give patient normal saline at 125 an hour and continue to recheck sodiums.
[2025-05-29] MEDS: 0.9% Normal Saline (1000mL) 1,000 ML 125 ML IV (23:42)
[2025-05-30] VITALS (27 sets, daily range): BP systolic 160–196; BP diastolic 43–62; PULSE 60–79; RESP 12–22; TEMP 36.3–36.8; O2SAT 93–99; BMI 22.5
[2025-05-30] MEDS: MELATONIN 10 MG TABLET PO (00:57)
[2025-05-30 01:18] LABS: Anion Gap 12 (5-15); BUN 20 mg/dL (4-19); BUN/Creat Ratio 22.1 RATIO (10-20); Calcium,Total 8.3 mg/dL (7.6-11.0); Carbon Dioxide 22.6 mmol/L (21.0-32.0); Chloride 73 mmol/L (98-108); Estimated Creatinine Clearance 43.09 ml/min (50-250); Glucose 107 mg/dL (70-99); Potassium 3.1 mmol/L (3.3-5.1)
[2025-05-30] MEDS: 0.9% Saline Lock 10 ML Syringe IV ×2 (04:30→15:10)
[2025-05-30 05:08] LABS: Hematocrit 23.2 % (37-47); Hemoglobin 8.6 g/dL (12.0-15.0); Immature Granulocytes Count 0.030 X10^3/uL (0.0-0.0); Mean Corp Hgb Conc 37.1 g/dL (32-36); Mean Corpuscular Volume 79.7 fL (81-99); Mean Platelet Vol. 9.4 fl (6.2-12.0); NRBC Flagged by Analyzer 0 % (0-5); Platelet Count 192 K/mm3 (150-450); RBC Distribution Width CV 13.0 % (11.6-14.6); RBC Distribution Width SD 37.2 fl (35.1-43.9); Red Blood Count 2.91 M/mm3 (4.2-5.4); White Blood Count 7.9 K/mm3 (4.4-11.0)
[2025-05-30 05:37] LABS: Anion Gap 11 (5-15); BUN 19 mg/dL (4-19); BUN/Creat Ratio 22.8 RATIO (10-20); Calcium,Total 7.8 mg/dL (7.6-11.0); Carbon Dioxide 22.6 mmol/L (21.0-32.0); Chloride 76 mmol/L (98-108); Estimated Creatinine Clearance 46.21 ml/min (50-250); Glucose 95 mg/dL (70-99); Potassium 3.0 mmol/L (3.3-5.1)
[2025-05-30 05:50] LABS: Magnesium 1.4 mg/dL (1.5-2.2)
[2025-05-30] MEDS: Potassium Chloride Oral Tablet 20 MEQ 40 MEQ PO (05:52)
[2025-05-30] MEDS: Senna/Docusate Sodium 1 Tablet 2 TABLET PO (08:36)
[2025-05-30] MEDS: Metoprolol(XL)Succ 50 MG Tablet PO ×2 (08:39→20:38)
--- NOTE | 2025-05-30 09:08 | CON.PCM.RE_ITS ---
Assessment & Plan Assessment/Plan (1) Hyponatremia: (2) Hypokalemia: (3) Hypomagnesemia: PLAN: Plan Assessment/Plan: Patient is a 79-year-old female with past history of hypertension with renal artery stenosis. Patient presented to hospital on 05/29/2025 with 4-day history of dyspnea, dizziness, and generalized weakness. During evaluation in ED, patient was found to have serum sodium of 106 mmol/L. Nephrology is asked to see the patient because of hyponatremia. Hyponatremia. Patient has hypotonic hyponatremia. Serum osmolality is 236 mOsm/kg. There is no severe symptoms of hyponatremia, so there is no need for hypertonic saline. Urine sodium is greater than 30 mmol/L. Urine osmolality is also more than 100 mOsm/kg. There is no evidence of thyroid dysfunction or adrenal insufficiency. Therefore, hyponatremia is ADH mediated. It is possible that patient may have underlying SIADH given the findings of urine studies. However, this is a diagnosis of exclusion. Patient has been on chlorthalidone which can cause hyponatremia and resulted in similar urine findings. First step is to stop thiazide diuretic, so I agree with discontinuing chlorthalidone which can cause diuretic induced hyponatremia. I will recheck urine electrolytes off of thiazide diuretic and saline boluses tomorrow. Patient received IV normal saline overnight., So repeating urine studies today will still not be helpful. She has remained asymptomatic from hyponatremia, so there is no need for hypertonic saline. I encouraged patient to push her own solute (protein) intake. Patient is not an ideal candidate for salt tablets since she is hypertensive. We do not have urea powder here. Therefore, I recommended that she pushes protein containing food items which will help the kidney excrete more free water. Continue to limit fluid intake to 1.2 L/day or less. Hypokalemia and hypomagnesemia should also be treated. Keeping potassium within normal limits will attenuate further drop in serum sodium. Continue to check serum sodium every 6 hours today. Since we do not know how chronic hyponatremia has been, I would recommend increasing sodium by 6 to 8 mmol/L/day but no more than 12 mmol/L/day to avoid osmotic demyelination syndrome. I do not recommend any further saline boluses since patient does not appear to be volume depleted. Giving more normal saline could also exacerbate hyponatremia if patient has poor oral solute intake (since osmolality of urine is greater than osmolality of normal saline). Hypokalemia and hypomagnesemia. Potassium remains low at 3.0 mmol/L with magnesium level of 1.4 mg/dL. Suspect hypokalemia and hypomagnesemia is also be due to chlorthalidone use. As discussed above, correcting hypokalemia could also help keep serum sodium from falling. Magnesium should also be replaced since hypokalemia may be more resistant to replacement if patient remains hypomagnesemic. Continue to monitor serum potassium and magnesium levels. HPI Consult Data Date of Consult: 05/30/25 HPI Narrative Reason for Consultation: Hyponatremia HPI Narrative: Patient is a 79-year-old female with past history of hypertension with renal artery stenosis. Patient presented to hospital on 05/29/2025 with 4-day history of dyspnea, dizziness, and generalized weakness. During evaluation in ED, patient was found to have serum sodium of 106 mmol/L. Nephrology is asked to see the patient because of hyponatremia. There is no prior history of chronic hyponatremia. Last available serum sodium from 10/07/2024 was 136 mmol/L. Prior to admission, patient has been on chlorthalidone for treatment of hypertension. Patient believes that she has been on chlorthalidone for approximately 3 years. She denies any prior knowledge of hyponatremia on his medication. She is not on SSRI, TCA, or antiseizure medication. Patient denies chronic headache, nausea/vomiting or ataxia prior to admission. She denies chronic use of NSAIDs. [facility] Medical History Renal artery stenosis HTN (hypertension) Home Medications ?Medication ?Instructions ?Recorded ?Last Taken ?Type amlodipine 10 mg tablet 10 mg PO DAILY 03/21/2305/05 History chlorthalidone 25 mg tablet 25 mg PO QDAY 08/27/24 History metoprolol succinate 50 mg 50 mg PO BID 08/27/2405/29 History tablet,extended release 24 hr hydralazine 25 mg tablet 25 mg PO BID high blood pres sure 10/06/24 05/29/25 History lisinopril 30 mg tablet 30 mg PO BID High blood pres sure 10/06/24 05/29/25 History Allergy/AdvReac Type Severity Reaction Status Date / Time codeine Allergy PT UNSURE Verified 05/29/25 12:50 OF REACTION Sulfa (Sulfonamide Allergy Rash Verified 05/29/25 12:50 Antibiotics) (sulfa drugs) Family History Other Asthma Cancer Hypertension Surgical History H/O cone biopsy of cervix (~1977) Social History Smoking Status: Light Smoker (<10/day) Tobacco: How many years used: 40 quit status: considering quitting ROS ROS Narrative As per HPI otherwise noncontributory Physical Exam Narrative General: Alert and oriented x3, NAD. HEENT: Normocephalic, atraumatic. Mucous membrane moist without erythema. PERRLA, EOMI. Hearing is intact. Neck: Supple, no JVD. Trachea is midline. No thyromegaly or lymphadenopathy. Cardiovascular: Normal S1, S2. No rubs, murmurs, or gallops. Respiratory: Lungs are clear to auscultation bilaterally. No wheezing, rhonchi, or rales. Abdomen: Normal bowel sounds, soft, nontender, no guarding or rebound, no organomegaly. Extremities: No clubbing, cyanosis, or edema. Musculoskeletal: Full passive range of motion, no joint swelling. Psychiatric: Normal mood and affect. Skin: Warm and dry, no rash. Neurologic: Cranial nerve II to XII are grossly intact. No focal neurologic deficits. Lab / Micro Data 05/30/25 04:30 05/30/25 04:30 Labs: Laboratory Results - last 24 hr 05/29/25 13:25: WBC 8.6, RBC 3.46 L, Hgb 10.2 L, Hct 27.1 L, MCV 78.3 L, MCH 29.5, MCHC 37.6 H, RDW Std Deviation 37.3, RDW Coeff of Cathleen 13.2, Plt Count 257, MPV 9.3, Sodium 106 L*, Potassium 3.5, Chloride 73 L*, Carbon Dioxide 21.6, Anion Gap 12, BUN 21 H, Creatinine 1.06, Estim Creat Clear Calc 36.18 L, Est GFR (MDRD) Non-Af 54 L, BUN/Creatinine Ratio 20.2 H, Glucose 121 H, Calcium 8.7, Total Bilirubin 0.44, AST 21, ALT 23, Alkaline Phosphatase 76, Troponin T High Sens 20 H, NT pro BNP II 5274 H, Total Protein 6.2, Albumin 3.9, Globulin 2.3, Albumin/Globulin Ratio 1.7 05/29/25 14:00: Urine Color Yellow, Urine Clarity Sl. Cloudy, Urine pH 7.0, Ur Specific [place] 1.010, Urine Protein 15 H, Urine Glucose (UA) Normal, Urine Ketones 5 H, Urine Occult Blood Negative, Urine Nitrite Negative, Urine Bilirubin Negative, Urine Urobilinogen Normal, Ur Leukocyte Esterase 500 H, Urine RBC 0 SEEN, Urine WBC 0-5 SEEN, Ur Squamous Epith Cells 0-5 SEEN, Urine Bacteria 0 SEEN, Urine Mucus 0 SEEN, Urine Osmolality 371, Ur Random Sodium 84, Urine Creatinine 43.90, Urine Potassium 36.9, Urine Chloride 80, Urine Urea Nitrogen 358 05/29/25 14:39: Sodium 107 L*, Potassium 3.3, Chloride 72 L*, Carbon Dioxide 21.3, Anion Gap 14, BUN 22 H, Creatinine 1.04, Estim Creat Clear Calc 36.88 L, E st GFR (MDRD) Non-Af 55 L, BUN/Creatinine Ratio 21.1 H, Glucose 113 H, Calcium 8.4 05/29/25 15:18: Troponin T Hi Sens 2 Hr 17 H, Triglycerides 96, Cholesterol 170, LDL Cholesterol, Calc 82, VLDL Cholesterol 19, HDL Cholesterol 68, Cholesterol/HDL Ratio 2.49, TSH 0.701, Cortisol PM Sample 18.30 H 05/29/25 15:50: Serum Osmolality 236 L 05/29/25 17:10: Sodium 109 L*, Potassium 3.3, Chloride 74 L*, Carbon Dioxide 22.2, Anion Gap 13, BUN 21 H, Creatinine 0.94, Estim Creat Clear Calc 40.80 L, Est GFR (MDRD) Non-Af 62, BUN/Creatinine Ratio 22.2 H, Glucose 106 H, Calcium 8.6, Troponin T Hi Sens 4Hr 17 H 05/29/25 21:30: Sodium 107 L*, Potassium 3.3, Chloride 74 L*, Carbon Dioxide 22.3, Anion Gap 11, BUN 19, Creatinine 0.96, Estim Creat Clear Calc 39.95 L, Est GFR (MDRD) Non-Af 61, BUN/Creatinine Ratio 20.0, Glucose 106 H, Calcium 8.4 05/30/25 00:35: Sodium 108 L*, Potassium 3.1 L, Chloride 73 L*, Carbon Dioxide 22.6, Anion Gap 12, BUN 20 H, Creatinine 0.89, Estim Creat Clear Calc 43.09 L, Est GFR (MDRD) Non-Af 66, BUN/Creatinine Ratio 22.1 H, Glucose 107 H, Calcium 8.3 05/30/25 04:30: WBC 7.9, RBC 2.91 L, Hgb 8.6 L, Hct 23.2 L, MCV 79.7 L, MCH 29.6, MCHC 37.1 H, RDW Std Deviation 37.2, RDW Coeff of Cathleen 13.0, Plt Count 192, MPV 9.4, Immature Gran % (Auto) 0.400, Neut % (Auto) 77.3 H, Lymph % (Auto) 12.1 L, [place] % (Auto) 8.9, Eos % (Auto) 0.9, Baso % (Auto) 0.4, Absolute Neuts (auto) 6.1, Absolute Lymphs (auto) 0.96, Nucleated RBC % 0, Sodium 109 L*, Potassium 3.0 L, Chloride 76 L, Carbon Dioxide 22.6, Anion Gap 11, BUN 19, Creatinine 0.83, Estim Creat Clear Calc 46.21 L, Est GFR (MDRD) Non-Af 72, BUN/Creatinine Ratio 22.8 H, Glucose 95, Calcium 7.8, Magnesium 1.4 L Imaging Radiology Impression Brain CT 05/29/25 13:18 IMPRESSION: 1. Generalized brain atrophy. 2. Small vessel ischemic/degenerative changes. 3. No acute intracranial hemorrhage, midline shift or mass effect. If symptoms persist, further evaluation with MRI is recommended. Reading Location: [facility] ER Chest X-Ray 05/29/25 13:30 IMPRESSION: Left basilar atelectasis or pneumonia. Reading Location: [facility] ER
[2025-05-30] MEDS: Magnesium Chloride 64 MG Delay Rel.Tablet 128 MG PO ×2 (10:41→20:38)
--- NOTE | 2025-05-30 15:14 | PCM.PN.HOSP ---
Reason for Visit Chief Complaint: Weakness, lightheadedness, generally feeling unwell Subjective Subjective Patient was seen and examined today, she is alert and does not appear in any distress, her sodium today was 110 I talked briefly with nephrology and they were okay with moving the patient to PCU. Objective Data Objective Data Vital Signs: Vital Signs Temp Pulse Resp BP Pulse Ox O2 Del Method 98.2 F 63 22 H 183/52 H 95 Room Air 05/30/25 10:00 05/30/25 14:00 05/30/25 14:00 05/30/25 14:00 05/30/25 14:00 05/30/25 14:00 Oxygen Delivery Method Room Air Weight: 57.7 kg Body Mass Index (BMI) 22.5 Intake & Output: Intake and Output for Last 24 Hours 05/28/25 05/29/25 05/30/25 23:59 23:59 23:59 Intake Total 649.35 / 649.35 1000 / 1000 Output Total 350 / 350 300 / 300 Balance 299.35 / 299.35 700 / 700 Lab / Micro Data 05/30/25 04:30 05/30/25 10:00 Labs: Laboratory Results - last 24 hr 05/29/25 14:00: Urine Osmolality 371, Ur Random Sodium 84, Urine Creatinine 43.90, Urine Potassium 36.9, Urine Chloride 80, Urine Urea Nitrogen 358 05/29/25 14:39: Sodium 107 L*, Potassium 3.3, Chloride 72 L*, Carbon Dioxide 21.3, Anion Gap 14, BUN 22 H, Creatinine 1.04, Estim Creat Clear Calc 36.88 L, Est GFR (MDRD) Non-Af 55 L, BUN/Creatinine Ratio 21.1 H, Glucose 113 H, Calcium 8.4 05/29/25 15:18: Troponin T Hi Sens 2 Hr 17 H, Triglycerides 96, Cholesterol 170, LDL Cholesterol, Calc 82, VLDL Cholesterol 19, HDL Cholesterol 68, Cholesterol/HDL Ratio 2.49, TSH 0.701, Cortisol PM Sample 18.30 H 05/29/25 15:50: Serum Osmolality 236 L 05/29/25 17:10: Sodium 109 L*, Potassium 3.3, Chloride 74 L*, Carbon Dioxide 22.2, Anion Gap 13, BUN 21 H, Creatinine 0.94, Estim Creat Clear Calc 40.80 L, Est GFR (MDRD) Non-Af 62, BUN/Creatinine Ratio 22.2 H, Glucose 106 H, Calcium 8.6, Troponin T Hi Sens 4Hr 17 H 05/29/25 21:30: Sodium 107 L*, Potassium 3.3, Chloride 74 L*, Carbon Dioxide 22.3, Anion Gap 11, BUN 19, Creatinine 0.96, Estim Creat Clear Calc 39.95 L, Est GFR (MDRD) Non-Af 61, BUN/Creatinine Ratio 20.0, Glucose 106 H, Calcium 8.4 05/30/25 00:35: Sodium 108 L*, Potassium 3.1 L, Chloride 73 L*, Carbon Dioxide 22.6, Anion Gap 12, BUN 20 H, Creatinine 0.89, Estim Creat Clear Calc 43.09 L, Est GFR (MDRD) Non-Af 66, BUN/Creatinine Ratio 22.1 H, Glucose 107 H, Calcium 8.3 05/30/25 04:30: WBC 7.9, RBC 2.91 L, Hgb 8.6 L, Hct 23.2 L, MCV 79.7 L, MCH 29.6, MCHC 37.1 H, RDW Std Deviation 37.2, RDW Coeff of Cathleen 13.0, Plt Count 192, MPV 9.4, Immature Gran % (Auto) 0.400, Neut % (Auto) 77.3 H, Lymph % (Auto) 12.1 L, [place] % (Auto) 8.9, Eos % (Auto) 0.9, Baso % (Auto) 0.4, Absolute Neuts (auto) 6.1, Absolute Lymphs (auto) 0.96, Nucleated RBC % 0, Sodium 109 L*, Potassium 3.0 L, Chloride 76 L, Carbon Dioxide 22.6, Anion Gap 11, BUN 19, Creatinine 0.83, Estim Creat Clear Calc 46.21 L, Est GFR (MDRD) Non-Af 72, BUN/Creatinine Ratio 22.8 H, Glucose 95, Calcium 7.8, Magnesium 1.4 L 05/30/25 10:00: Sodium 110 L* Physical Exam Const alert, oriented x3, no apparent distress, average body habitus, healthy appearing and well nourished General Appearance: cooperative, well kempt and well developed Orientation / Consciousness: awake, oriented to person, oriented to place and oriented to time HEENT normocephalic, head/scalp atraumatic and moist oral mucous membranes Eyes PERRL, EOMs intact bilaterally and conjunctivae normal Neck supple, no JVD and thyroid normal General: trachea midline Resp normal respiratory effort, no retractions, no use of accessory muscles and clear to auscultation bilaterally Auscultation: Negative for rales, rhonchi or wheezes Cardio regular rate, regular rhythm, S1 normal heart sound, S2 normal heart sound, no murmurs, no rub and no gallops GI normal to inspection, nondistended, normoactive bowel sounds, soft to palpation, non-tender and non-distended Extremity no clubbing, cyanosis or edema Skin no rashes or lesions noted General Skin Exam: no breakdown Neuro oriented x3, CN's II-XII intact bilaterally, moves all extremities, no focal motor deficits and no sensory deficits noted Sensorium / Orientation: awake and alert Speech: speech normal Psych affect normal Assessment & Plan Assessment/Plan (1) Hyponatremia: PLAN: Plan 1. Hyponatremia-patient's sodium today is 110, labs will be rechecked tomorrow, nephrology is dissipating in her care. Patient was on chlorthalidone as an outpatient, this may have contributed to her hyponatremia. #2 essential-patient will remain on her present medications #3 hypokalemia-patient was given potassium supplementation, BMP will be rechecked tomorrow #4 left basilar atelectasis-I do not feel the patient has pneumonia Total clinical time spent by myself addressing the patient's medical issues, reviewing all of her data, and collaborating with patient's care team: 35 minutes Charges/Coding Visit Charges Inpatient E&M: 77518 Subs Hosp L2
[2025-05-30] MEDS: Ensure Plus High Protein 120 ML LIQUID PO (20:38)
[2025-05-31] VITALS (15 sets, daily range): BP systolic 159–195; BP diastolic 47–58; PULSE 58–71; RESP 11–18; TEMP 36.5–37.1; O2SAT 95–99; BMI 22.0
[2025-05-31] MEDS: 0.9% Saline Lock 10 ML Syringe IV (05:07)
--- NOTE | 2025-05-31 08:06 | PCM.PN.HOSP ---
Reason for Visit Chief Complaint: Weakness, lightheadedness, generally feeling unwell Subjective Subjective Patient states overall she is feeling a bit better today. Still some lightheadedness yesterday with moving around. Has not yet been out of bed today. Feels like she is stronger overall. Does report strong tobacco abuse history. I did discuss with her that we would go ahead and check a CT of her chest to rule out any malignancy that could be ADH producing. No complaints overall at this time. Objective Data Objective Data Vital Signs: Vital Signs Temp Pulse Resp BP Pulse Ox O2 Del Method 98.6 F 71 17 195/58 H 95 Room Air 05/31/25 02:00 05/31/25 05:03 05/31/25 02:00 05/31/25 05:03 05/31/25 02:00 05/31/25 02:00 Oxygen Delivery Method Room Air Weight: 56.4 kg Body Mass Index (BMI) 22.0 Intake & Output: Intake and Output for Last 24 Hours 05/29/25 05/30/25 05/31/25 23:59 23:59 23:59 Intake Total 649.35 / 649.35 1000 / 1000 50 / 50 Output Total 350 / 350 300 / 300 Balance 299.35 / 299.35 700 / 700 50 / 50 Lab / Micro Data 05/31/25 09:00 05/31/25 09:00 Labs: Laboratory Results - last 24 hr 05/30/25 10:00: Sodium 110 L* 05/30/25 15:10: Sodium 110 L* 05/30/25 20:45: Sodium 109 L* 05/31/25 02:45: Sodium 110 L* Physical Exam Const alert, oriented x3, no apparent distress and average body habitus Constitutional Narrative: Older, white female, sitting up in bed, appears comfortable, nontoxic HEENT head/scalp atraumatic and moist oral mucous membranes Head and Scalp: normocephalic Resp normal respiratory effort, no retractions, no use of accessory muscles and clear to auscultation bilaterally Resp Narrative: Slightly diminished diffusely bases greater than apices Auscultation: Negative for rales, rhonchi or wheezes Cardio regular rate, regular rhythm, S1 normal heart sound, S2 normal heart sound, no murmurs, no rub, no gallops and no clicks GI normal to inspection, nondistended, normoactive bowel sounds, soft to palpation and non-tender Extremity Extremity Narrative: Patient with bilateral clubbing on hands and nailbeds are white, no cyanosis or edema noted, 1+ pedal pulses, 2+ radial pulses Neuro oriented x3, moves all extremities and no focal motor deficits Speech: speech normal Psych affect normal Psych Narrative: Eye contact is good, patient interacts appropriately, very pleasant Assessment & Plan Assessment/Plan (1) Hypo-osmolar hyponatremia: (2) Hypomagnesemia: (3) Hypokalemia: (4) Renal artery stenosis: (5) Uncontrolled hypertension: PLAN: Plan Hypoosmolar hyponatremia - TSH within normal limits - Cortisol within normal limits - Further workup per nephrology - Continue to hold thiazide diuretic - Current sodium is 110 up from 106 on admission - Per nephrology documentation may consider tolvaptan and depending on sodium levels - Will check CT of the chest to rule out ADH producing lung malignancy with tobacco abuse history - Chest x-ray was unremarkable Uncontrolled hypertension - Chlorthalidone is on hold - Continue home amlodipine - Continue home hydralazine - Continue home lisinopril - Continue home metoprolol - Add Isordil - Further workup added by nephrology to include repeat renal duplex and possible vascular intervention next-patient states that she has seen vascular surgery before and they were not able to intervene on her right renal artery stenosis Hypokalemia - Resolved Acute on chronic anemia - Previous labs we have here from October 2024 and on admission show a hemoglobin between 10 and 12 - current hemoglobin is down to 7.5 - Etiology is unclear this time - check iron studies - Check reticulocyte count - Check guaiac stool - Check a.m. liver panel - Further workup depending on above results - Start Protonix 40 mg IV daily - If iron deficient will dose IV iron and start p.o. iron after IV iron infusions Troponin elevation - Very mild - Etiology is unclear - Echocardiogram is pending - Will defer further workup if echo is unremarkable for wall motion abnormalities History of right renal artery stenosis - Previously unsuccessful stenting - Ultrasound pending per nephrology - Possible reconsultation with vascular surgery. Depending on above Tobacco abuse - Continue nicotine replacement therapy if needed and desired - Recommend cessation DVT prophylaxis - Continue subcu Lovenox CODE STATUS - Full code as verified at the time of admission Charges/Coding Visit Charges Inpatient E&M: 80887 Subs Hosp L2
[2025-05-31] MEDS: Metoprolol(XL)Succ 50 MG Tablet PO ×2 (08:21→21:56)
[2025-05-31] MEDS: Potassium Chloride Oral Tablet 20 MEQ 40 MEQ PO (08:22)
[2025-05-31] MEDS: Magnesium Chloride 64 MG Delay Rel.Tablet 128 MG PO ×2 (08:22→21:56)
--- NOTE | 2025-05-31 09:13 | CT_ITS ---
PROCEDURE: CT chest without contrast 05/31/2025 REASON FOR EXAM: HYPONATREMIA WITH TOBACCO ABUSE HISTORY TECHNIQUE: Chest CT without contrast. Coronal and Sagittal reconstruction series were provided. One or more dose reduction techniques were used (e.g., Automated exposure control, adjustment of the mA and/or kV according to patient size, use of iterative reconstruction technique RADIATION DOSE SUMMARY: CTDlvol: 6.19 mGy DLP: 230.31 mGycm COMPARISON: Previous plain films FINDINGS: Lung windows show underlying emphysema with chronic interstitial changes in both lung cabrera. There is a free-flowing left pleural effusion with associated atelectasis, and perhaps associated infiltrate as well. Follow-up is recommended to ensure complete resolution. There is a smaller free-flowing right pleural effusion with associated atelectasis. There is no suspicious noncalcified mass or nodule. Thyroid gland is enlarged with multiple low-density nodules suggestive of goiter. A dedicated thyroid ultrasound may be of benefit for further evaluation. No suspicious axillary, mediastinal or perihilar lymph nodes there are subcentimeter in short axis dimension mediastinal lymph nodes which may be reactive. Peripheral calcifications in the thoracic aorta without aneurysm. Dense coronary artery calcifications are noted. Limited cuts through the upper abdomen show small hiatal hernia. Bony structures show degenerative change CT/Chest without Contrast IMPRESSION: Coronary artery calcification (CAC) is is present Underlying emphysema with chronic interstitial changes. There are free-flowing bilateral pleural effusions, [id number] with associated atelectasis and perhaps associated infi ltrate in the left lung base. Follow-up recommended to ensure resolution No suspicious noncalcified mass or nodule No suspicious enlarged axillary, mediastinal or perihilar lymph nodes Enlarged thyroid with low-density nodules suggesting goiter Degenerative bony changes Reading Location: [id number]
[2025-05-31 09:15] LABS: Hematocrit 20.9 % (37-47); Immature Granulocytes Count 0.060 X10^3/uL (0.0-0.0); Mean Corpuscular Volume 79.8 fL (81-99); Mean Platelet Vol. 9.8 fl (6.2-12.0); NRBC Flagged by Analyzer 0 % (0-5); POSITIVE COUNT YES; Platelet Count 211 K/mm3 (150-450); RBC Distribution Width CV 13.0 % (11.6-14.6); RBC Distribution Width SD 37.2 fl (35.1-43.9); Red Blood Count 2.62 M/mm3 (4.2-5.4); White Blood Count 7.8 K/mm3 (4.4-11.0)
[2025-05-31 09:37] LABS: Anion Gap 12 (5-15); BUN 18 mg/dL (4-19); BUN/Creat Ratio 21.1 RATIO (10-20); Calcium,Total 8.1 mg/dL (7.6-11.0); Carbon Dioxide 21.5 mmol/L (21.0-32.0); Chloride 77 mmol/L (98-108); Estimated Creatinine Clearance 45.12 ml/min (50-250); Glucose 122 mg/dL (70-99); Magnesium 1.8 mg/dL (1.5-2.2); Potassium 3.3 mmol/L (3.3-5.1)
[2025-05-31 09:49] LABS: Hemoglobin 7.5 g/dL (12.0-15.0); Mean Corp Hgb Conc 35.8 g/dL (32-36)
--- NOTE | 2025-05-31 11:25 | PCM.PN.REN ---
Subjective Subjective complains of weakness, unsteady gait. Denied nausea but has anorexia. Sodium low at 106 on admit to 110 today. Last sodium 131 on 04/02/25 from F. She has been on chlorthalidone [facility]. Recently started on doxazosin for uncontrolled hypertension in May then stopped after intolerance to it with weakness, swelling. BP remains elevated despite titration of hydralazine. Right renal artery stenosis on duplex from 2023. Will repeat and consult vascular. Objective Data Objective Data Vital Signs: Vital Signs Temp Pulse Resp BP Pulse Ox O2 Del Method 98.6 F 60 11 L 185/50 H 96 Room Air 05/31/25 08:14 05/31/25 08:21 05/31/25 08:14 05/31/25 08:14 05/31/25 08:14 05/31/25 08:30 Oxygen Delivery Method Room Air Weight: 56.4 kg Body Mass Index (BMI) 22.0 Intake & Output: Intake and Output for Last 24 Hours 05/29/25 05/30/25 05/31/25 23:59 23:59 23:59 Intake Total 649.35 / 649.35 1000 / 1000 350 / 350 Output Total 350 / 350 300 / 300 300 / 300 Balance 299.35 / 299.35 700 / 700 50 / 50 Lab / Micro Data 05/31/25 09:00 05/31/25 09:00 Labs: Laboratory Results - last 24 hr 05/30/25 15:10: Sodium 110 L* 05/30/25 20:45: Sodium 109 L* 05/31/25 02:45: Sodium 110 L* 05/31/25 09:00: WBC 7.8, RBC 2.62 L, Hgb 7.5 L, Hct 20.9 L, MCV 79.8 L, MCH 28.6, MCHC 35.8, RDW Std Deviation 37.2, RDW Coeff of Cathleen 13.0, Plt Count 211, MPV 9.8, Immature Gran % (Auto) 0.800, Neut % (Auto) 75.3 H, Lymph % (Auto) 12.5 L, [place] % (Auto) 10.2 H, Eos % (Auto) 0.9, Baso % (Auto) 0.3, Absolute Neuts (auto) 5.9, Absolute Lymphs (auto) 0.98, Nucleated RBC % 0, Sodium Cancelled 05/31/25 09:00: Sodium 110 L*, Potassium 3.3, Chloride 77 L, Carbon Dioxide 21.5, Anion Gap 12, BUN 18, Creatinine 0.85, Estim Creat Clear Calc 45.12 L, Est GFR (MDRD) Non-Af 71, BUN/Creatinine Ratio 21.1 H, Glucose 122 H, Calcium 8.1, Magnesium 1.8 Radiography Diagnostic Testing: Radiology Impression Chest CT 05/31/25 09:13 IMPRESSION: Coronary artery calcification (CAC) is is present Underlying emphysema with chronic interstitial changes. There are free-flowing bilateral pleural effusions, [id number] with associated atelectasis and perhaps associated infiltrate in the left lung base. Follow-up recommended to ensure resolution No suspicious noncalcified mass or nodule No suspicious enlarged axillary, mediastinal or perihilar lymph nodes Enlarged thyroid with low-density nodules suggesting goiter Degenerative bony changes Reading Location: [facility] Physical Exam Const alert and oriented x3 Nutritional Appearance: thin HEENT normocephalic Resp clear to auscultation bilaterally Cardio regular rate GI non-tender and non-distended Auscultation: normoactive bowel sounds Assessment & Plan Assessment/Plan (1) Hypo-osmolar hyponatremia: PLAN: sodium 110. Consider tolvaptan if sodium unchanged. Last sodium 131 on 04/02/25. Thiazide diuretic discontinued. Repeat urine sodium (2) Uncontrolled hypertension: PLAN: more difficult to manage medically. Repeat renal duplex and consult vascular for possible angioplasty of right renal artery stenosis (3) Hypokalemia: PLAN: replace as needed (4) Renal artery stenosis: PLAN: renal duplex (5) Anemia: PLAN: iron studies pending (6) Hypomagnesemia: PLAN: replaced
[2025-05-31 11:31] LABS: Immature Platelet Fraction 7.8 % (1.0-7.9); Immature Reticulocyte Fraction 5.70 % (3.00-15.90); Platelet Count 194 K/mm3 (150-450); Reticulocyte Count 3.16 % (0.5-1.5)
--- NOTE | 2025-05-31 11:31 | RDU_ITS ---
Reason For Study Reason For Study: Uncontrolled HTN Right Renal Artery Left Renal Artery Right renal artery ostium 150.6/14.9 Left renal artery ostium 159/26.3 RSV/EDV. PSV/EDV. Right renal artery proximal 69.4/12.3 Left renal artery proximal PSV/EDV PSV/EDV. 154.4/23.9 . Right renal artery mid 62.5/20.5 PSV/EDV. Left renal artery mid 173.8/26.3 Right renal artery distal 46/15 PSV/EDV. PSV/EDV . Unable to demonstrate velocities as Left renal artery distal 127.6/15.3 compared to 05/20/2024. Hx duplicator RRA PSV/EDV. on angiogram 10/07/2024. Left RAR 1.86. Right RAR 1.61. Left Renal Parenchyma Right Renal Parenchyma Left upper pole medulla 30.2/8.1 Upper Pole Medula 14.5/4.7 PSV/EDV. PSV/EDV . Right upper pole medulla EDR 0.3 . Left upper pole medulla EDR 0.3 . Right upper pole medulla R.I. 0.68 . Left upper pole medulla R.I. 0.73 . Upper [place] Cortx 8.1/4.6 PSV/EDV. UP Cortex 15.5/4.4 PSV/EDV. Right upper pole cortex EDR 0.6 . Left upper pole cortex EDR 0.3 . Right upper pole cortex R.I. 0.43 . Left upper pole cortex R.I. 0.71 . Right lower Pole medulla 20/4.7 PSV/EDV . Left lower Pole medulla 24.1/6.3 Right lower pole medulla EDR 0.2 . PSV/EDV . Right lower pole medulla R.I. 0.77 . Left lower pole medulla EDR 0.3 . Lower Pole Cortex 10.2/5.3 PSV/EDV. Left lower pole medulla R.I. 0.74 . Right lower pole cortex EDR 0.5 . Lower Pole Cortx 13/5.6 PSV/EDV. Right lower pole cortex R.I. 0.48 . Left lower pole cortex EDR 0.57 . Right Renal Hilar Left Renal Hilar Right Hilar avg 50.2/9.2 PSV/EDV. LT Hilar avg 48.6/10.2 PSV/EDV . Right hilar acceleration time 40 m/sec. Left hilar acceleration time 10 m/sec. Right Renal Dimensions Left Renal Dimensions Right kidney size 8.17 cm . Left kidney size 10.29 cm . Right cortical dimension 1.23 cm . Left cortical dimension 1.54 cm . Aorta Proximal abdominal aorta 1.11 x 1.11 cm . Proximal abdominal aorta peak systolic velocity is 93.5 cm/sec . Distal abdominal aorta 0.93 x 0.89 cm . Distal abdominal aorta peak systolic velocity is 183 cm/sec . VL/Renal Artery Duplex Ultrasound Interpretation Summary Right renal artery patent with normal velocities and no evidence of stenosis. Left renal artery patent with normal velocities and no evidence of stenosis. Right renal vein patent. Left renal vein patent. Right kidney diminished in size. Left kidney normal in size. Previously visualized right renal stenosis not identified. Patient with known a ccessory renal artery which was location of stenosis. Ordering Physician: Nora Govea Referring Physician: MD Ene Loyd Performed By: Estela Tillman RVT
[2025-05-31 12:02] LABS: AST(SGOT) 25 U/L (<=31); Alanine Aminotransfer ALT/SGPT 18 U/L (<=34); Albumin, Serum 3.5 g/dL (3.4-4.8); Alkaline Phosphatase 63 U/L (35-104); Bilirubin, Direct 0.17 mg/dL (0.00-0.30); Ferritin 48 ng/mL (22-378); Globulin 1.8 g/dL (2.2-4.2); Iron 66 ug/dL (50-170); Iron Binding Capacity,Total 306 ug/dL (250-450); Iron Binding Capacity,Unsat 240 ug/dL (228-428)
[2025-05-31] MEDS: Isosorbide DN 20 MG Tablet 40 MG PO ×2 (14:26→21:56)
--- NOTE | 2025-05-31 14:30 | CASEMGMT ---
LEILA PÉREZ Assessment Face to Face with patient for initial transition planning/care coordination assessment. LEILA PÉREZ introduced self and role at [facility], pt voices understanding. Pt is A&Ox4 and is resting comfortably in the chair and is calm. Pt's brother @ bedside. Care providers, pharmacy, and demographics verified. Admitting dx: Hyponatremia LACE Strata: 2 PCP:Loyd uLque Specialists: Jeferson (Nephro), Hamida (Vascular) Preferred Pharmacy: [facility] [place] Insurance: [facility] A/B, AARP Prescription Benefit: Yes LNOK: Gareth (Brother), Monica (Niece) Living Arrangements: Pt lives alone in a single story home with a basement with a FFSU and 3 steps to enter ADLs/IADLs: Pt reports that she is indep @ baseline. See PT/OT notes. Transportation: Self, brother DME: Pt states that all she has at home is a BP machine. CM to follow for AD needs. HHC/SNF: Denies hx Pt?s goal: home Plan: TBD. Follow nephro and vascular consults. Anticipate DC home once medically ready. Follow for HH or OP Tx needs. Pt states that it is too early to tell what I will need after DC. Pt states that she would like to wait and see how she progresses in the hospital prior to determining DC plans. Pt was educated that if she does not want HH now that she can follow up with her PCP as an OP to get this established. pt states understanding. Pt currently denies any further questions or concerns at this time. Report given to MANAGER OF FINANCE CM. Silvestre Carrizales RN, CM
[2025-05-31 17:43] LABS: Hemoglobin 7.3 g/dL (12.0-15.0)
[2025-06-01] VITALS (20 sets, daily range): BP systolic 144–180; BP diastolic 37–69; PULSE 57–73; RESP 15–18; TEMP 36.2–37.2; O2SAT 94–99; BMI 22.4; BMI 21.6
[2025-06-01 00:15] LABS: Hemoglobin 6.6 g/dL (12.0-15.0)
[2025-06-01 05:37] LABS: AST(SGOT) 27 U/L (<=31); Alanine Aminotransfer ALT/SGPT 16 U/L (<=34); Albumin, Serum 3.4 g/dL (3.4-4.8); Alkaline Phosphatase 59 U/L (35-104); Anion Gap 11 (5-15); BUN 21 mg/dL (4-19); BUN/Creat Ratio 21.7 RATIO (10-20); Calcium,Total 8.3 mg/dL (7.6-11.0); Carbon Dioxide 20.6 mmol/L (21.0-32.0); Chloride 77 mmol/L (98-108); Estimated Creatinine Clearance 39.95 ml/min (50-250); Globulin 1.6 g/dL (2.2-4.2); Glucose 88 mg/dL (70-99); Magnesium 1.7 mg/dL (1.5-2.2); Potassium 3.8 mmol/L (3.3-5.1)
[2025-06-01] MEDS: Isosorbide DN 20 MG Tablet 40 MG PO ×2 (05:46→20:57)
[2025-06-01] MEDS: 0.9% Normal Saline (1000mL) 1,000 ML 125 ML IV (06:08)
[2025-06-01 06:25] LABS: Hematocrit 21.6 % (37-47); Hemoglobin 8.0 g/dL (12.0-15.0); Immature Granulocytes Count 0.080 X10^3/uL (0.0-0.0); Mean Corp Hgb Conc 37.0 g/dL (32-36); Mean Corpuscular Volume 80.0 fL (81-99); Mean Platelet Vol. 10.0 fl (6.2-12.0); NRBC Flagged by Analyzer 0 % (0-5); Platelet Count 178 K/mm3 (150-450); RBC Distribution Width CV 13.3 % (11.6-14.6); RBC Distribution Width SD 38.1 fl (35.1-43.9); Red Blood Count 2.70 M/mm3 (4.2-5.4); White Blood Count 8.6 K/mm3 (4.4-11.0)
--- NOTE | 2025-06-01 08:13 | PCM.PN.HOSP ---
Reason for Visit Chief Complaint: Weakness, lightheadedness, generally feeling unwell Subjective Subjective Patient denies any specific complaints at this time. States she still feels generally weak. Has not yet been out of bed today. Hemoglobin dropped to 6.6 so she did receive 1 unit packed red blood cells which improved her hemoglobin to about 8. Plans are for EGD later today. Patient is NPO. 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 and needs fluid restriction Objective Data Objective Data Vital Signs: Vital Signs Temp Pulse Resp BP Pulse Ox O2 Del Method 97.3 F L 66 18 180/50 H 96 Room Air 06/01/25 03:46 06/01/25 05:46 06/01/25 03:46 06/01/25 05:45 06/01/25 03:46 06/01/25 03:46 Oxygen Delivery Method Room Air Weight: 57.6 kg Body Mass Index (BMI) 22.4 Intake & Output: Intake and Output for Last 24 Hours 05/30/25 05/31/25 06/01/25 23:59 23:59 23:59 Intake Total 1000 / 1000 1050 / 1050 568.75 / 568.75 Output Total 300 / 300 300 / 300 Balance 700 / 700 750 / 750 568.75 / 568.75 Lab / Micro Data 06/01/25 09:34 06/01/25 04:58 Labs: Laboratory Results - last 24 hr 05/31/25 09:00: WBC 7.8, RBC 2.62 L, Hgb 7.5 L, Hct 20.9 L, MCV 79.8 L, MCH 28.6, MCHC 35.8, RDW Std Deviation 37.2, RDW Coeff of Cathleen 13.0, Plt Count 211, MPV 9.8, Immature Gran % (Auto) 0.800, Neut % (Auto) 75.3 H, Lymph % (Auto) 12.5 L, [place] % (Auto) 10.2 H, Eos % (Auto) 0.9, Baso % (Auto) 0.3, Absolute Neuts (auto) 5.9, Absolute Lymphs (auto) 0.98, Nucleated RBC % 0, Immature Plt Fraction 7.8, Retic Count 3.16 H, Immature Retic Fraction 5.70, Retic Hgb Equivalent 33.9, Sodium Cancelled 05/31/25 09:00: Sodium 110 L*, Potassium 3.3, Chloride 77 L, Carbon Dioxide 21.5, Anion Gap 12, BUN 18, Creatinine 0.85, Estim Creat Clear Calc 45.12 L, Est GFR (MDRD) Non-Af 71, BUN/Creatinine Ratio 21.1 H, Glucose 122 H, Calcium 8.1, Magnesium 1.8, Iron 66, TIBC 306, Iron Saturation 21.0, Unsaturated IBC 240, Ferritin 48, Total Bilirubin 0.33, Direct Bilirubin 0.17, AST 25, ALT 18, Alkaline Phosphatase 63, Total Protein 5.3 L, Albumin 3.5, Globulin 1.8 L 05/31/25 15:57: Hgb 7.3 L, Sodium 109 L* 05/31/25 18:01: Blood Type A POSITIVE, ABO/Rh Cancelled, A1 Subgroup Cancelled, Rho(D) Tech Interpret Cancelled, Antibody Screen NEGATIVE, Crossmatch See Detail 05/31/25 21:48: Sodium 109 L* 06/01/25 00:09: Hgb 6.6 L 06/01/25 04:58: WBC 8.6, RBC 2.70 L, Hgb 8.0 L, Hct 21.6 L, MCV 80.0 L, MCH 29.6, MCHC 37.0 H, RDW Std Deviation 38.1, RDW Coeff of Cathleen 13.3, Plt Count 178, MPV 10.0, Immature Gran % (Auto) 0.900, Neut % (Auto) 72.0 H, Lymph % (Auto) 14.4 L, [place] % (Auto) 11.4 H, Eos % (Auto) 0.9, Baso % (Auto) 0.4, Absolute Neuts (auto) 6.2, Absolute Lymphs (auto) 1.23, Nucleated RBC % 0, Sodium 109 L*, Potassium 3.8, Chloride 77 L, Carbon Dioxide 20.6 L, Anion Gap 11, BUN 21 H, Creatinine 0.96, Estim Creat Clear Calc 39.95 L, Est GFR (MDRD) Non-Af 61, BUN/Creatinine Ratio 21.7 H, Glucose 88, Calcium 8.3, Phosphorus 2.8, Magnesium 1.7, Total Bilirubin 0.95, AST 27, ALT 16, Alkaline Phosphatase 59, Total Protein 5.1 L, Albumin 3.4, Globulin 1.6 L, Albumin/Globulin Ratio 2.1 Radiography Diagnostic Testing: Radiology Impression Echocardiogram 05/29/25 16:58 Interpretation Summary Normal LV size. Left ventricular systolic function is normal. The left ventricular ejection fraction is 65 %. Moderate (2+) eccentric mitral valve insufficiency. Pulmonary artery systolic pressure is 52 mmHg. Moderate pulmonary hypertension. Ordering Physician: Conchita Burns Referring Physician: Loyd Luque Performed By: Evelyn Darby RDCS Chest CT 05/31/25 09:13 IMPRESSION: Coronary artery calcification (CAC) is is present Underlying emphysema with chronic interstitial changes. There are free-flowing bilateral pleural effusions, agar-jaciwyh-vovq-right with associated atelectasis and perhaps associated infiltrate in the left lung base. Follow-up recommended to ensure resolution No suspicious noncalcified mass or nodule No suspicious enlarged axillary, mediastinal or perihilar lymph nodes Enlarged thyroid with low-density nodules suggesting goiter Degenerative bony changes Reading Location: [facility] Physical Exam Const alert, oriented x3, no apparent distress, average body habitus and well nourished Constitutional Narrative: Older, white female, sitting up in bed, appears comfortable, nontoxic General Appearance: cooperative HEENT normocephalic, head/scalp atraumatic and moist oral mucous membranes HEENT Narrative: Mallampati 2 Resp normal respiratory effort, no retractions, no use of accessory muscles and clear to auscultation bilaterally Resp Narrative: Remains slightly diminished diffusely bases greater than apices Auscultation: Negative for rales, rhonchi or wheezes Cardio regular rate, regular rhythm, S1 normal heart sound, S2 normal heart sound, no murmurs, no rub and no clicks; Negative for no gallops Cardio Narrative: Positive S4 GI normal to inspection, nondistended, normoactive bowel sounds, soft to palpation and non-tender Extremity no clubbing, cyanosis or edema Extremity Narrative: Patient with bilateral clubbing on hands and nailbeds are white, no cyanosis or edema noted, 1+ pedal pulses, 2+ radial pulses Neuro oriented x3, moves all extremities and no focal motor deficits Speech: speech normal Psych affect normal Psych Narrative: Eye contact is good, patient interacts appropriately, very pleasant Assessment & Plan Assessment/Plan (1) Hypo-osmolar hyponatremia: (2) Hypomagnesemia: (3) Hypokalemia: (4) Renal artery stenosis: (5) Uncontrolled hypertension: (6) Acute anemia: (7) GI bleed: PLAN: Plan Hypoosmolar hyponatremia - TSH within normal limits - Cortisol within normal limits - Further workup pending per nephrology - Continue to hold thiazide diuretic - Sodium this morning was 109 anticipate tolvaptan to be given later today - Nephrology following-appreciate input - CT of the chest was unremarkable for malignancy Uncontrolled hypertension - Chlorthalidone is on hold - Continue home amlodipine - Continue home hydralazine - Continue home lisinopril - Continue home metoprolol - Continue Isordil - Add minoxidil 5 mg daily - Renal duplex per nephrology next-vascular consult per nephrology it does appear that patient has been intervened upon but unsuccessfully-discussed case with Dr. Mei and patient will need referred to tertiary center if vascular intervention is needed - Currently would defer anything based on acute anemia Acute on chronic anemia secondary to suspected GI bleed - Previous labs we have here from October 2024 and on admission show a hemoglobin between 10 and 12 - Hemoglobin dropped to a radha of 6.6 overnight and received 1 unit of packed red blood cells--> now up to 8.0 - Etiology is unclear this time - Iron studies normal but elevated retake count indicating acute bleed -Guaiac ordered but not collected as of yet--> patient states she has had no further bowel movement -Liver functions within normal limits including bilirubin so doubt hemolysis -Given further drop in need for blood transfusion we will discontinue IV Protonix and give a bolus and start on a continuous Protonix drip -GI consultation with likely EGD later today - N.p.o. Troponin elevation - Very mild - Etiology is unclear - Echocardiogram shows normal EF at 65% with moderate mitral valve insufficiency and pulmonary systolic pressure 52 mmHg with moderate pulmonary hypertension - Will defer further workup if echo is unremarkable for wall motion abnormalities Generalized weakness - PT and OT are following and current recommendation is home with help/home health care History of right renal artery stenosis - Previously unsuccessful stenting - Ultrasound pending per nephrology -Vascular surgery following but will recommend transfer for intervention as she has had failed intervention previously due to complexity of lesion Tobacco abuse - Continue nicotine replacement therapy if needed and desired - Recommend cessation DVT prophylaxis - Discontinue chemoprophylaxis due to GI bleed - Start SCDs CODE STATUS - Full code as verified at the time of admission Charges/Coding Visit Charges Inpatient E&M: 46229 Subs Hosp L2
[2025-06-01] MEDS: Pantoprazole Sodium 80 MG in 0.9% Normal Saline (100mL Bag) 80 ML 10 MG CONT INF ×2 (09:16→19:12)
[2025-06-01] MEDS: TOLVAPTAN 15 MG TABLET 7.5 MG PO (09:24)
[2025-06-01] MEDS: Metoprolol(XL)Succ 50 MG Tablet PO ×2 (09:25→20:57)
[2025-06-01 09:53] LABS: Hemoglobin 7.9 g/dL (12.0-15.0)
--- NOTE | 2025-06-01 14:21 | PCM.PRE.AN2 ---
ASA Classification* ASA Classification ASA Classification: 3 and E Assessment & Plan Anesthesia* Anesthesia Assessment Anesthesia Assessment: Discussed sedation and/or anesthesia options, risks, benefits, and alternatives with patient/parents/legal guardian/POA. Questions invited. The patient/parents/legal guardian/POA seems to understand and agrees to proceed with anesthesia plan. Reviewed the physical assessment, medical history, allergy history and patient home medications list prior to surgery/procedure/anesthetic and documented any changes. Performed airway and anesthesia risk assessments. Anesthesia Type Anesthesia Type: MAC Anesthesia Focused Assessment* Temperature: 98.8 F Pulse Rate: 64 Blood Pressure: 170/52 Respiratory Rate: 16 Pulse Ox: 96 Oxygen Delivery Method: Room Air Airway Assessment Mouth opens: >3 cm Mallampati Score: IV Teeth Condition: Chipped/Broken (Patient has a cracked tooth.) and Missing (Patient is missing a couple teeth.) Neck Range of motion (ROM): Limited ROM (Somewhat Decreased) Labs Anesthesia Preop lab: CBC WBC 8.6 K/mm3 (4.4-11.0) 06/01/25 04:58 06/01/25 RBC 2.70 M/mm3 (4.2-5.4) L 06/01/25 04:58 06/01/25 Hgb 7.9 g/dL (12.0-15.0) L 06/01/25 09:34 06/01/25 Hct 21.6 % (37-47) L 06/01/25 04:58 06/01/25 Plt Count 178 K/mm3 (150-450) 06/01/25 04:58 06/01/25 CHEMISTRY Potassium 3.8 mmol/L (3.3-5.1) 06/01/25 04:58 06/01/25 Sodium 109 mmol/L (133-145) L* 06/01/25 04:58 06/01/25 Magnesium 1.7 mg/dL (1.5-2.2) 06/01/25 04:58 06/01/25 Phosphorus 2.8 mg/dL (2.7-4.5) 06/01/25 04:58 06/01/25 BUN 21 mg/dL (4-19) H 06/01/25 04:58 06/01/25 Creatinine 0.96 mg/dL (0.70-1.20) 06/01/25 04:58 06/01/25 Glucose 88 mg/dL (70-99) 06/01/25 04:58 06/01/25 TSH 0.701 uIU/mL (0.300-4.200) 05/29/25 15:18 05/29/25 COAG Pre-Assessment Diagnosis/Proposed Procedure Planned Operative Procedure(s): Esophagogastroduodenoscopy with control of bleeding and possible biopsies. 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 When Was Last Pacemaker Check QUESTION #4 FULL TEXT: You/Your Family Experience fever (hyperthermia) with Anesthesia Last Oral Intake Last Oral intake: Last Oral Intake NPO since 07:00 06/01/25 13:34 Meds taken in AM with sips of Yes 06/01/25 13:34 water? Meds patient instructed to take am of surgery PONV PONV - roustabout pusher: PONV - roustabout pusher Female HX of Motion Sickness HX of N/V After Surgery Non-Smoker Duration of Surgery greater than 60 minutes Number of Risk Factors PONV Score Height & Weight Height & Weight: Anesthesia: Height & Weight Height 5 ft 3 in 06/01/25 13:34 Weight: 55.338 kg 06/01/25 13:34 Body Mass Index (BMI) 21.6 06/01/25 13:34 Respiratory Assessment Respiratory Assessment - roustabout pusher: Respiratory Tract Infection Hx - roustabout pusher Hx Respiratory Tract Infection Any additional information?: Yes Hx Respiratory Tract Infection: No STOP Sleep Apnea STOP Sleep Apnea - roustabout pusher: STOP Sleep Apnea - roustabout pusher Hx Hypertension Yes 05/30/25 10:12 Hx Sleep Apnea No 05/29/25 17:13 CPAP BIPAP Do you snore loudly (louder No 05/29/25 17:13 than talking or can be heard Do you often feel tired/ No 05/29/25 17:13 fatigued/ sleepy during daytime? Has anyone observed you stop No 05/29/25 17:13 breathing during sleep? STOP Results Negative 05/29/25 17:13 QUESTION #5 FULL TEXT : Do you snore loudly (louder than talking or can be heard through closed doors)? 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 Specify any problems Hx of Preganancy in last 3 No 05/29/25 17:13 Months Nurse Filling Out Transfusion CGERBER 05/29/25 17:13 & Questions: Date: 05/29/25 05/29/25 17:13 Time: 17:20 05/29/25 17:13 Patient unable to answer at this time (ie. confused, unrespo /Reproduction History /Reproductive History - roustabout pusher: /Reproductive Hx- roustabout pusher Hx Now Gestational Age (in weeks): EDC: Hx Hx Para Hx Section SAB Active Medications Active Medications: Current Medications Generic Name Dose Route Start Last Admin Trade Name Freq PRN Reason Stop Dose Admin Acetaminophen 650 mg 05/29/25 16:58 Acetaminophen 325 Mg Tablet PO Q6H PRN PRN Pain 1-10 Or Fever >100.7 Albuterol Sulfate 2.5 mg 05/29/25 16:58 Albuterol 2.5 Mg/3 Ml Vial.Neb. INHALATION Q2H PRN PRN SOB &/OR WHEEZING Amlodipine Besylate 10 mg 05/30/25 10:00 06/01/25 09:25 Amlodipine 10 Mg Tablet PO 10 mg DAILY BOB Administration Protocol Enoxaparin Sodium 40 mg 05/30/25 10:00 05/31/25 08:21 Enoxaparin 40 Mg/0.4 Ml Syringe SC 40 mg DAILY BOB Administration Hydralazine HCl 100 mg 05/29/25 22:00 06/01/25 05:46 Hydralazine 50 Mg Tablet PO 100 mg TID BOB Administration Protocol Hydralazine HCl 10 mg 05/29/25 21:47 05/31/25 11:30 Hydralazine 20 Mg/Ml Vial IV 10 mg Q4H PRN PRN Administration SBP GREATER THAN 180 Protocol Sodium Chloride 250 mls @ 15 mls/hr 05/29/25 17:17 IV .[id number] PRN Saline Flush Sodium Chloride 250 mls @ 15 mls/hr 05/29/25 17:17 IV .[id number] PRN Additional IVPB Infusion Pantoprazole Sodium 80 mg/ 100 mls @ 10 mls/hr 06/01/25 08:15 06/01/25 09:16 Sodium Chloride CONT INF 10 mls/hr Q10H BOB Administration Lactated Ringer's 1,000 mls @ 15 mls/hr 06/01/25 14:00 IV .Q48H [facility] Isosorbide Dinitrate 40 mg 05/31/25 14:00 06/01/25 05:46 Isosorbide Dn 20 Mg Tablet PO 40 mg TID BOB Administration Protocol Lisinopril 30 mg 05/29/25 22:00 06/01/25 09:25 Lisinopril 10 Mg Tablet PO 30 mg BID BOB Administration Magnesium Chloride 128 mg 05/30/25 10:00 06/01/25 10:47 Magnesium Chloride 64 Mg Delay Rel.Tablet PO 06/02/25 10:01 Not Given BID [facility] Melatonin 10 mg 05/29/25 16:58 05/30/25 00:57 Melatonin 10 Mg Tablet PO 10 mg QHS PRN PRN Administration INSOMNIA Metoprolol Succinate 50 mg 05/29/25 22:00 06/01/25 09:25 Metoprolol(Xl)Succ 50 Mg Tablet PO 50 mg BID BOB Administration Protocol Minoxidil 5 mg 06/02/25 10:00 Minoxidil 2.5 Mg Tablet PO DAILY [facility] Protocol Minoxidil 5 mg 06/01/25 14:30 Minoxidil 2.5 Mg Tablet PO 06/01/25 14:31 X1 ONE Protocol Nicotine 14 mg 05/29/25 16:58 05/30/25 08:40 Nicotine 14 Mg Patch TD 14 mg DAILY PRN PRN Administration Nicotine craving Potassium Chloride 40 meq 05/31/25 08:00 06/01/25 10:47 Potassium Chloride Oral Tablet 20 Meq PO 06/01/25 23:59 Not Given DAILYCM BOB Senna/Docusate Sodium 2 tablet 05/29/25 16:58 05/30/25 08:36 Senna/Docusate Sodium 1 Tablet PO 2 tablet BID PRN PRN Administration Constipation Sodium Chloride 10 - 40 ml 05/29/25 17:17 05/31/25 05:07 0.9% Saline Lock 10 Ml Syringe IV 20 ml UD PRN Administration SALINE FLUSH [facility] Medical History Renal artery stenosis HTN (hypertension) Home Medications ?Medication ?Instructions ?Recorded ?Last Taken ?Type amlodipine 10 mg tablet 10 mg PO DAILY 03/21/23 05/29/25 History chlorthalidone 25 mg tablet 25 mg PO QDAY 08/27/24 05/29/25 History metoprolol succinate 50 mg 50 mg PO BID 08/27/24 05/29/25 History tablet,extended release 24 hr hydralazine 25 mg tablet 25 mg PO BID high blood pressure 10/06/24 05/29/25 History lisinopril 30 mg tablet 30 mg PO BID High blood pressure 10/06/24 05/29/25 History Allergy/AdvReac Type Severity Reaction Status Date / Time codeine Allergy PT UNSURE Verified 05/29/25 12:50 OF REACTION Sulfa (Sulfonamide Allergy Rash Verified 05/29/25 12:50 Antibiotics) (sulfa drugs) Family History Other Asthma Cancer Hypertension Surgical History H/O cone biopsy of cervix (~1977) Social History Smoking Status: Light Smoker (<10/day) Tobacco: How many years used: 40 quit status: considering quitting Review of Systems (Anesthesia) ROS Narrative System reviewed and no additional complaints, except as documented.
--- NOTE | 2025-06-01 15:00 | EGD_PTH ---
PATIENT: ALVARADO COHEN LOC: [facility] U#:[id number] AGE/SX: 79/F ROOM: [facility] RE05/29/[address]: Dr. Tiffanie Govea DO : 1945 BED: 1 DIS: 06/06/2025 SPEC #: [id number] RECD: 06/01/25 17:01 STATUS: JAJA RESundeep #: [id number] GERI: 06/01/25 15:[address]: Juan Manuel Valdovinos DEPT: SURGICAL PATHOLOGY RECD BY: Bossman Beck ENTERED: 06/02/25 09:23 SP TYPE: EGD BIOPSY OT DR: DO Dr. Porfirio Cameron MD Dr. Kathryn Lee, DO Dr. Mark Elderbrock, MD Dr. Mark Tereletsky, DO Dr. Paige Pierce, MD Tissues: A - Duodenum, NOS Procedures: Surgery Specimen Level IV HEADER OPERATION: EGD with biopsy and electrocautery PRE-OP DIAGNOSIS: GI bleed, acute anemia TISSUE SUBMITTED: A- Duodenum biopsy MICROSCOPIC DIAGNOSIS A. 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 - Negative for increased intraepithelial lymphocytes. MICROSCOPIC DESCRIPTION Slides are reviewed. GROSS DESCRIPTION A. Received in fixative is one container labeled with the patient's name and designated Duodenum biopsy. The specimen consists of one irregular fragment of light queen soft tissue that measures 0.4 cm. The specimen is totally submitted in one cassette. [place] 06/02/2025 CPT:96436
--- NOTE | 2025-06-01 15:15 | EX.PCM.CON.G ---
HPI Consult Data Date of Consult: 06/01/25 HPI Narrative Reason for Consultation: Anemia HPI Narrative: ALVARADO COHEN, is a 79-year-old female history of hypertension and renal artery stenosis presented [facility] ED 05/29/2025 with increased shortness of breath, swelling, dizziness and weakness for 4 days. In the ED temp 97.8, heart rate of 68 and blood pressure 185/54, respiratory rate 18 and pulse ox 96% on room air. CBC with white blood cell count of 8.6, hemoglobin 10.2. UA not suggestive of infection, proBNP elevated at 5274 and troponin 20. CMP however revealed a sodium of 106, potassium of 3.5, chloride of 73 and BUN of 21 with a creatinine of 1.06. Glucose 121 and liver profile within normal limits. Sodium low at 106 on admit to 110 today. Last sodium 131 on 04/02/25 from [facility]. She has been on chlorthalidone fpc. Recently started on doxazosin for uncontrolled hypertension in May then stopped after intolerance to it with weakness, swelling. I was asked to see her due to decreasing hemoglobin from 10.2 down to 6.6. She does endorse dark stools. [facility] Medical History Renal artery stenosis HTN (hypertension) Home Medications ?Medication ?Instructions ?Recorded ?Last Taken ?Type amlodipine 10 mg tablet 10 mg PO DAILY 03/21/23 05/29/25 History chlorthalidone 25 mg tablet 25 mg PO QDAY 08/27/24 05/29/25 History metoprolol succinate 50 mg 50 mg PO BID 08/27/24 05/29/25 History tablet,extended release 24 hr hydralazine 25 mg tablet 25 mg PO BID high blood pressure 10/06/24 05/29/25 History lisinopril 30 mg tablet 30 mg PO BID High blood pressure 10/06/24 05/29/25 History Allergy/AdvReac Type Severity Reaction Status Date / Time codeine Allergy PT UNSURE Verified 05/29/25 12:50 OF REACTION Sulfa (Sulfonamide Allergy Rash Verified 05/29/25 12:50 Antibiotics) (sulfa drugs) Family History Other Asthma Cancer Hypertension Surgical History H/O cone biopsy of cervix (~1977) Social History Smoking Status: Light Smoker (<10/day) Tobacco: How many years used: 40 quit status: considering quitting ROS Constitutional Constitutional: Denies fatigue, fever(s), poor appetite, weight gain or weight loss Gastrointestinal Gastrointestinal: Denies belching, bloating, change in bowel habits, change in stool character, chewing difficulty, coffee ground emesis, constipation, cramping, diarrhea, dyspepsia, dysphagia, early satiety, excessive flatus, fecal incontinence, heartburn, hematemesis, hematochezia, hemorrhoids, loose stools, melena, nausea, odynophagia, rectal bleeding, tenesmus, vomiting or weight changes Physical Exam Const alert, oriented x3, no apparent distress and healthy appearing General Appearance: cooperative GI normal to inspection, nondistended, normoactive bowel sounds, soft to palpation, non-tender and non-distended Percussion: normal to percussion Rectal Exam: deferred Lab / Micro Data 06/01/25 09:34 06/01/25 04:58 Labs: Laboratory Results - last 24 hr 05/31/25 15:57: Hgb 7.3 L, Sodium 109 L* 05/31/25 18:01: Blood Type A POSITIVE, ABO/Rh Cancelled, A1 Subgroup Cancelled, Rho(D) Tech Interpret Cancelled, Antibody Screen NEGATIVE, Crossmatch See Detail 05/31/25 21:48: Sodium 109 L* 06/01/25 00:09: Hgb 6.6 L 06/01/25 04:58: WBC 8.6, RBC 2.70 L, Hgb 8.0 L, Hct 21.6 L, MCV 80.0 L, MCH 29.6, MCHC 37.0 H, RDW Std Deviation 38.1, RDW Coeff of Cathleen 13.3, Plt Count 178, MPV 10.0, Immature Gran % (Auto) 0.900, Neut % (Auto) 72.0 H, Lymph % (Auto) 14.4 L, [place] % (Auto) 11.4 H, Eos % (Auto) 0.9, Baso % (Auto) 0.4, Absolute Neuts (auto) 6.2, Absolute Lymphs (auto) 1.23, Nucleated RBC % 0, Sodium 109 L*, Potassium 3.8, Chloride 77 L, Carbon Dioxide 20.6 L, Anion Gap 11, BUN 21 H, Creatinine 0.96, Estim Creat Clear Calc 39.95 L, Est GFR (MDRD) Non-Af 61, BUN/Creatinine Ratio 21.7 H, Glucose 88, Calcium 8.3, Phosphorus 2.8, Magnesium 1.7, Total Bilirubin 0.95, AST 27, ALT 16, Alkaline Phosphatase 59, Total Protein 5.1 L, Albumin 3.4, Globulin 1.6 L, Albumin/Globulin Ratio 2.1 06/01/25 09:34: Hgb 7.9 L 06/01/25 11:13: Ur Random Sodium 23 Imaging Radiology Impression Echocardiogram 05/29/25 16:58 Interpretation Summary Normal LV size. Left ventricular systolic function is normal. The left ventricular ejection fraction is 65 %. Moderate (2+) eccentric mitral valve insufficiency. Pulmonary artery systolic pressure is 52 mmHg. Moderate pulmonary hypertension. Ordering Physician: Conchita Burns Referring Physician: Loyd Luque Performed By: Evelyn Darby RDCS Assessment & Plan Assessment/Plan (1) GI bleed: (2) Acute anemia: PLAN: She will undergo an upper endoscopy. She was explained alternatives, risk, benefits include not withstanding bleeding, infection, sepsis, perforation, need for emergent surgery and . She will have an ASA of 3. Charges/Coding Visit Charges Inpatient E&M: 97014 Init Hosp L2
--- NOTE | 2025-06-01 16:22 | PCM.POST.ANE ---
Anesthesia: Postop Eval I Current Vital Signs Temperature: 98.9 F Pulse Rate: 60 Blood Pressure: 144/37 Respiratory Rate: 15 Pulse Ox: 97 Oxygen Delivery Method: Room Air Assessment Airway patent: Yes Spontaneous unlabored respirations: Yes Mental status: Asleep nausea: No Vomiting: No Anesthesia Complication: No Fluid Hydration Crystalloid volume administer (ml): 400 Total IV fluid infused: 400 Progress Note Anesthesia document: Postop Eval 1 completed: Yes
--- NOTE | 2025-06-01 16:28 | OP.PROVAT_ITS ---
06/01/2025 Loyd Luque [address] [place] [address] Re : Upper GI endoscopy procedure for Corinne Cheema Dear Dr. Luque This procedure was performed on Sunday, June 01, 2025. My impressions and recommendations are as follows: Impressions : - Normal esophagus. - No gross lesions in the entire stomach. - Oozing duodenal ulcers with no stigmata of bleeding. Biopsied. 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 Treated with a heater probe. - A few non-bleeding angiodysplastic lesions in the jejunum. Treated with a heater probe. Recommendations : - Return patient to [facility] for [facility] care. - Resume regular diet today. - Continue present medications. - The patient is not currently taking anticoagulant or antiplatelet agents except for aspirin and NSAID medication. - Await pathology results. - Repeat upper endoscopy in 4 months for surveillance. - Outpatient capsule endoscopy My findings are described in the full procedure note, which is enclosed. If I can be of further assistance, please feel free to contact me at . Sincerely, Juan Manuel Valdovinos, 06/01/2025 4:28:05 PM This report has been signed electronically.
--- NOTE | 2025-06-01 16:28 | OP.EGD_ITS ---
Patient Name: Corinne Cheema Procedure Date: 06/01/2025 3:41 PM Date of : 1945 Age: 79 Procedure: Upper GI endoscopy Indications: Iron deficiency anemia, Melena, Recent gastrointestinal bleeding Providers: Juan Manuel Valdovinos DO Medicines: Monitored Anesthesia Care Patient Profile: This is a 79 year old female. Refer to note in patient chart for documentation of history and physical. Patient has symptoms. Complications: No immediate complications. Procedure: Pre-Anesthesia Assessment: - Prior to the procedure, a History and Physical was performed, and patient medications and allergies were reviewed. The patient is competent. The risks and benefits of the procedure and the sedation options and risks were discussed with the patient. All questions were answered and informed consent was obtained. Patient identification and proposed procedure were verified by the physician in the pre-procedure area. Mental Status Examination: alert and oriented. Airway Examination: normal oropharyngeal airway and neck mobility. Respiratory Examination: clear to auscultation. CV Examination: normal. Prophylactic Antibiotics: The patient does not require prophylactic antibiotics. Prior Anticoagulants: The patient has taken no anticoagulant or antiplatelet agents except for NSAID medication. ASA Grade Assessment: II - A patient with mild systemic disease. After reviewing the risks and benefits, the patient was deemed in satisfactory condition to undergo the procedure. The anesthesia plan was to use monitored anesthesia care (MAC). Immediately prior to administration of medications, the patient was re-assessed for adequacy to receive sedatives. The heart rate, respiratory rate, oxygen saturations, blood pressure, adequacy of pulmonary ventilation, and response to care were monitored throughout the procedure. The physical status of the patient was re-assessed after the procedure. After obtaining informed consent, the endoscope was passed under direct vision. Throughout the procedure, the patient's blood pressure, pulse, and oxygen saturations were monitored continuously. The Endoscope was introduced through the mouth, and advanced to the jejunum. Small bowel enteroscopy was deemed necessary. The upper GI endoscopy was accomplished without difficulty. The patient tolerated the procedure well. Scope In: 4:08:47 PM Scope Out: 4:14:29 PM Total Procedure Duration Time 0 hours 5 minutes 42 seconds Findings: No gross lesions were noted in the entire examined stomach. Many oozing linear duodenal ulcers with no stigmata of bleeding were found in the duodenal bulb and in the first portion of the duodenum. The largest lesion was 3 mm in largest dimension. Biopsies were taken with a cold forceps for histology. Verification of patient identification for the specimen was done. Estimated blood loss was minimal. Multiple 4 mm angiodysplastic lesions with bleeding were found in the first portion of the duodenum, in the second portion of the duodenum, in the third portion of the duodenum and in the fourth portion of the duodenum. Coagulation for hemostasis using heater probe was successful. Estimated blood loss was minimal. A few 3 mm angiodysplastic lesions without bleeding were found in the jejunum. Coagulation for destruction of remaining portion of lesion using heater probe was successful. Estimated blood loss was minimal. Non-severe esophagitis with no bleeding was found 37 to 40 cm from the incisors. Impression: - Normal esophagus. - No gross lesions in the entire stomach. - Oozing duodenal ulcers with no stigmata of bleeding. Biopsied. 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 Treated with a heater probe. - A few non-bleeding angiodysplastic lesions in the jejunum. Treated with a heater probe. Recommendation: - Return patient to [facility] for ongoing care. - Resume regular diet today. - Continue present medications. - The patient is not currently taking anticoagulant or antiplatelet agents except for aspirin and NSAID medication. - Await pathology results. - Repeat upper endoscopy in 4 months for surveillance. - Outpatient capsule endoscopy Procedure Code(s): --- Professional --- 06802, 59, Small intestinal endoscopy, enteroscopy beyond second portion of duodenum, not including ileum; with control of bleeding (eg, injection, bipolar cautery, unipolar cautery, laser, heater probe, stapler, plasma hem marker) 63348, 51, Small intestinal endoscopy, enteroscopy beyond second portion of duodenum, not including ileum; with biopsy, single or multiple CPT copyright 2021 [employer]. All rights reserved. The codes documented in this report are preliminary and upon chucking and sawing machine operator review may be revised to meet current compliance requirements. Juan Manuel Valdovinos DO 06/01/2025 4:28:05 PM This report has been signed electronically. Number of Addenda: 0 Note Initiated On: 06/01/2025 3:41 PM
--- NOTE | 2025-06-01 17:45 | EX.PCM.CON.S ---
Assessment & Plan Assessment/Plan (1) Renal artery stenosis: PLAN: -contributing to her chronic difficulty controlling BP -given anatomic barriers to endo tx and small vessel size my not have any great treatment option -since modestly controlled would not push efforts to treat, particularly given new UGI bleed -will cont to follow HPI Consult Data Date of Consult: 06/01/25 HPI Narrative HPI Narrative: ALVARADO COHEN, is a 79 F who is admitted with hyponatremia, recent adjustments in her BP meds. She has known right accessory renal artery stenosis that could not be fixed endovascular previously due to significant aortic calcific burden. Discussion at that time was to continue with medical management and as long as modest BP control would not further pursue treatment. Given that vessel with stenosis is accessory and perfuses smaller portion of renal parenchyma bypass options may not have great result and if vessel ultimately occludes her renal function would be preserved. During this admission also found to have anemia, UGI bleed treated endoscopically [facility] Medical History Renal artery stenosis HTN (hypertension) Home Medications ?Medication ?Instructions ?Recorded ?Last Taken ?Type amlodipine 10 mg tablet 10 mg PO DAILY 03/21/23 05/29/25 History chlorthalidone 25 mg tablet 25 mg PO QDAY 08/27/24 05/29/25 History metoprolol succinate 50 mg 50 mg PO BID 08/27/24 05/29/25 History tablet,extended release 24 hr hydralazine 25 mg tablet 25 mg PO BID high blood pressure 10/06/24 05/29/25 History lisinopril 30 mg tablet 30 mg PO BID High blood pressure 10/06/24 05/29/25 History Allergy/AdvReac Type Severity Reaction Status Date / Time codeine Allergy PT UNSURE Verified 05/29/25 12:50 OF REACTION Sulfa (Sulfonamide Allergy Rash Verified 05/29/25 12:50 Antibiotics) (sulfa drugs) Family History Other Asthma Cancer Hypertension Surgical History H/O cone biopsy of cervix (~1977) Social History Smoking Status: Light Smoker (<10/day) Tobacco: How many years used: 40 quit status: considering quitting Physical Exam Const alert, oriented x3, no apparent distress and healthy appearing General Appearance: cooperative; Negative for combative or lethargic Orientation / Consciousness: awake Exam Limitations: no limitations HEENT Head and Scalp: normocephalic and atraumatic Eyes EOMs intact bilaterally General Eye: normal appearance of both eyes Neck full ROM General: trachea midline Resp normal respiratory effort and no use of accessory muscles Effort and Inspection: Negative for labored, stridor or audible wheezes Cardio regular rate and regular rhythm Back/Spine Cervical Spine: cervical ROM normal Extremity full ROM, normal capillary refill and no clubbing, cyanosis or edema Skin no rashes or lesions noted and no wounds Neuro oriented x3, CN's II-XII intact bilaterally, no focal motor deficits and no sensory deficits noted Psych thought process normal, cooperative, affect normal, speech normal and activity/motor behavior normal Lab / Micro Data 06/01/25 09:34 06/01/25 04:58 Labs: Laboratory Results - last 24 hr 05/31/25 18:01: Blood Type A POSITIVE, ABO/Rh Cancelled, A1 Subgroup Cancelled, Rho(D) Tech Interpret Cancelled, Antibody Screen NEGATIVE, Crossmatch See Detail 05/31/25 21:48: Sodium 109 L* 06/01/25 00:09: Hgb 6.6 L 06/01/25 04:58: WBC 8.6, RBC 2.70 L, Hgb 8.0 L, Hct 21.6 L, MCV 80.0 L, MCH 29.6, MCHC 37.0 H, RDW Std Deviation 38.1, RDW Coeff of Cathleen 13.3, Plt Count 178, MPV 10.0, Immature Gran % (Auto) 0.900, Neut % (Auto) 72.0 H, Lymph % (Auto) 14.4 L, [place] % (Auto) 11.4 H, Eos % (Auto) 0.9, Baso % (Auto) 0.4, Absolute Neuts (auto) 6.2, Absolute Lymphs (auto) 1.23, Nucleated RBC % 0, Sodium 109 L*, Potassium 3.8, Chloride 77 L, Carbon Dioxide 20.6 L, Anion Gap 11, BUN 21 H, Creatinine 0.96, Estim Creat Clear Calc 39.95 L, Est GFR (MDRD) Non-Af 61, BUN/Creatinine Ratio 21.7 H, Glucose 88, Calcium 8.3, Phosphorus 2.8, Magnesium 1.7, Total Bilirubin 0.95, AST 27, ALT 16, Alkaline Phosphatase 59, Total Protein 5.1 L, Albumin 3.4, Globulin 1.6 L, Albumin/Globulin Ratio 2.1 06/01/25 09:34: Hgb 7.9 L 06/01/25 11:13: Ur Random Sodium 23 Charges/Coding Visit Charges Inpatient E&M: 22965 Init Hosp L1
[2025-06-01 18:56] LABS: Anion Gap 12 (5-15); BUN 17 mg/dL (4-19); BUN/Creat Ratio 15.5 RATIO (10-20); Calcium,Total 8.8 mg/dL (7.6-11.0); Carbon Dioxide 19.7 mmol/L (21.0-32.0); Chloride 85 mmol/L (98-108); Estimated Creatinine Clearance 34.87 ml/min (50-250); Glucose 154 mg/dL (70-99); Potassium 3.7 mmol/L (3.3-5.1)
--- NOTE | 2025-06-01 20:28 | POSTOPAN2_ITS ---
Anesthesia Postop Eval I Sum Postop Eval Completion status Anesthesia document: Postop Eval 1 completed: Yes Anesthesia Postop Eval I Summary Anesthesia Postop Eval I Summary: Anesthesia Postop Eval I: Assessment Summary Airway patent Yes 06/01/25 16:23 SCHOOL [email or web address] Spontaneous unlabored Yes 06/01/25 16:23 SCHOOL [email or web address] respirations Mental status Asleep 06/01/25 16:23 SCHOOL [email or web address] nausea No 06/01/25 16:23 SCHOOL LEADER.[email or web address] Vomiting No 06/01/25 16:23 SCHOOL LEADER.[email or web address] Anesthesia Postop Eval I: Fluid Summary Crystalloid volume administer 400 06/01/25 16:23 SCHOOL [email or web address] (ml) Colloids volume administered ( ml) Blood Product volume administered (ml) Total IV fluid infused 400 06/01/25 16:23 SCHOOL [email or web address] Anesthesia Postop Eval I: Summary Notes Anesthesia Complication No 06/01/25 16:23 SCHOOL LEADER.[email or web address] Anesthesia Complication Comment: Post-operative progress note Anesthesia: Postop Eval II Evaluation Mental status: Awake and Calm Pain Level: 0 nausea: No Vomiting: No Complications Anesthesia Complication: No
--- NOTE | 2025-06-01 20:28 | PCM.POSTANE2 ---
Anesthesia Postop Eval I Sum Postop Eval Completion status Anesthesia document: Postop Eval 1 completed: Yes Anesthesia Postop Eval I Summary Anesthesia Postop Eval I Summary: Anesthesia Postop Eval I: Assessment Summary Airway patent Yes 06/01/25 16:23 GLASS LATHE OPERATOR.[email or web address] Spontaneous unlabored Yes 06/01/25 16:23 GLASS LATHE OPERATOR.APAT respirations Mental status Asleep 06/01/25 16:23 GLASS LATHE [email or web address].APAT nausea No 06/01/25 16:23 GLASS LATHE OPERATOR.APAT Vomiting No 06/01/25 16:23 GLASS LATHE OPERATOR.APAT Anesthesia Postop Eval I: Fluid Summary Crystalloid volume administer 400 06/01/25 16:23 GLASS LATHE OPERATOR.APAT (ml) Colloids volume administered ( ml) Blood Product volume administered (ml) Total IV fluid infused 400 06/01/25 16:23 GLASS LATHE OPERATOR.APAT Anesthesia Postop Eval I: Summary Notes Anesthesia Complication No 06/01/25 16:23 GLASS LATHE OPERATOR.APAT Anesthesia Complication Comment: Post-operative progress note Anesthesia: Postop Eval II Evaluation Mental status: Awake and Calm Pain Level: 0 nausea: No Vomiting: No Complications Anesthesia Complication: No
[2025-06-01] MEDS: Magnesium Chloride 64 MG Delay Rel.Tablet 128 MG PO (20:58)
[2025-06-02] VITALS (12 sets, daily range): BP systolic 88–181; BP diastolic 37–60; PULSE 59–72; RESP 14–18; TEMP 36.5–36.7; O2SAT 92–97; BMI 22.2
[2025-06-02] MEDS: Pantoprazole Sodium 80 MG in 0.9% Normal Saline (100mL Bag) 80 ML 10 MG CONT INF (03:19)
[2025-06-02] MEDS: Isosorbide DN 20 MG Tablet 40 MG PO (05:11)
[2025-06-02 06:05] LABS: Hematocrit 22.1 % (37-47); Hemoglobin 7.9 g/dL (12.0-15.0); Mean Corp Hgb Conc 35.7 g/dL (32-36); Mean Corpuscular Volume 81.9 fL (81-99); Mean Platelet Vol. 9.5 fl (6.2-12.0); Platelet Count 173 K/mm3 (150-450); RBC Distribution Width CV 14.2 % (11.6-14.6); RBC Distribution Width SD 41.7 fl (35.1-43.9); Red Blood Count 2.70 M/mm3 (4.2-5.4); White Blood Count 8.8 K/mm3 (4.4-11.0)
[2025-06-02 06:30] LABS: Anion Gap 9 (5-15); BUN 22 mg/dL (4-19); BUN/Creat Ratio 18.2 RATIO (10-20); Calcium,Total 8.5 mg/dL (7.6-11.0); Carbon Dioxide 23.0 mmol/L (21.0-32.0); Chloride 91 mmol/L (98-108); Estimated Creatinine Clearance 31.70 ml/min (50-250); Glucose 90 mg/dL (70-99); Potassium 3.9 mmol/L (3.3-5.1)
--- NOTE | 2025-06-02 07:55 | PCM.PN.HOSP ---
Reason for Visit Chief Complaint: Weakness, lightheadedness, generally feeling unwell Subjective Subjective I saw the patient earlier in the day and she states she feels the best she ever felt. We did discuss possible discharge tomorrow and she requested that she stay another day. I did discuss with her that it would likely depend on how she was feeling. About 15 to 20 minutes after I evaluated her, she complained of bilateral lower extremity numbness and weakness with the inability to move her legs. Nursing did state that she was noted on the monitor able to move her legs later after initial evaluation. Nonetheless we did order an MRI of her lumbar spine rule out any acute etiology that could be responsible for this. In addition to this she also was noted to have low blood pressure. Nephrology is managing her medications and they were called and notified with hold parameters placed on her medications per nephrology. Objective Data Objective Data Vital Signs: Vital Signs Temp Pulse Resp BP Pulse Ox O2 Del Method 97.8 F 59 L 18 170/48 H 95 Room Air 06/02/25 05:08 06/02/25 05:11 06/02/25 05:08 06/02/25 05:08 06/02/25 05:08 06/02/25 05:08 Oxygen Delivery Method Room Air Weight: 56.9 kg Body Mass Index (BMI) 22.2 Intake & Output: Intake and Output for Last 24 Hours 05/31/25 06/01/25 06/02/25 23:59 23:59 23:59 Intake Total 1050 / 1050 668.08 / 668.08 81.17 / 81.17 Output Total 300 / 300 Balance 750 / 750 668.08 / 668.08 81.17 / 81.17 Lab / Micro Data 06/02/25 05:51 06/02/25 05:51 Labs: Laboratory Results - last 24 hr 06/01/25 09:34: Hgb 7.9 L 06/01/25 11:13: Ur Random Sodium 23 06/01/25 18:03: Sodium 117 L*, Potassium 3.7, Chloride 85 L, Carbon Dioxide 19.7 L, Anion Gap 12, BUN 17, Creatinine 1.10, Estim Creat Clear Calc 34.87 L, Est GFR (MDRD) Non-Af 51 L, BUN/Creatinine Ratio 15.5, Glucose 154 H, Calcium 8.8 06/02/25 05:51: WBC 8.8, RBC 2.70 L, Hgb 7.9 L, Hct 22.1 L, MCV 81.9, MCH 29.3, MCHC 35.7, RDW Std Deviation 41.7, RDW Coeff of Cathleen 14.2, Plt Count 173, MPV 9.5, Sodium 123 L, Potassium 3.9, Chloride 91 L, Carbon Dioxide 23.0, Anion Gap 9, BUN 22 H, Creatinine 1.21 H, Estim Creat Clear Calc 31.70 L, Est GFR (MDRD) Non-Af 46 L, BUN/Creatinine Ratio 18.2, Glucose 90, Calcium 8.5 Physical Exam Const alert, oriented x3, no apparent distress, average body habitus, healthy appearing and well nourished Constitutional Narrative: Older, white female, sitting up in a chair at the bedside eating lunch and watching television, appears comfortable, nontoxic, looks the best I have seen her look since admitted General Appearance: cooperative, well kempt and well developed HEENT normocephalic, head/scalp atraumatic and moist oral mucous membranes HEENT Narrative: Mallampati 2, no thrush Neck General: trachea midline Resp normal respiratory effort, no retractions, no use of accessory muscles and clear to auscultation bilaterally Resp Narrative: Slightly diminished diffusely Auscultation: Negative for rales, rhonchi or wheezes Cardio regular rate, regular rhythm, S1 normal heart sound, S2 normal heart sound, no murmurs, no rub, no gallops and no clicks GI normal to inspection, nondistended, normoactive bowel sounds, soft to palpation and non-tender Extremity no clubbing, cyanosis or edema Extremity Narrative: Patient with bilateral clubbing on hands and nailbeds are white, no cyanosis or edema noted, 1+ pedal pulses, 2+ radial pulses Neuro moves all extremities and no focal motor deficits Speech: speech normal Psych affect normal Psych Narrative: Eye contact is good, patient interacts appropriately, very pleasant Assessment & Plan Assessment/Plan (1) Hypo-osmolar hyponatremia: (2) Hypomagnesemia: (3) Hypokalemia: (4) Renal artery stenosis: (5) Uncontrolled hypertension: (6) Acute anemia: (7) GI bleed: (8) Lower extremity weakness: (9) Paresthesia of lower extremity: PLAN: Plan Hypoosmolar hyponatremia - TSH within normal limits - Cortisol within normal limits - Etiology is unclear but 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 - Continue to hold thiazide diuretic - Patient was given tolvaptan and serum sodium is up to 123 -Has developed some mild ANTONINO due to the volume loss - Nephrology following-appreciate input - CT of the chest was unremarkable for malignancy - Ultimate plan for treatment up to nephrology Acute onset bilateral lower extremity paresthesias and weakness - Quick onset and resolution - Neurochecks are now unremarkable - MRI of the lumbar spine is pending - Patient was somewhat anxious about discharge to be be supratentorial however will monitor closely as blood pressure was dropped at that time as well Uncontrolled hypertension - Chlorthalidone is on hold - Continue home amlodipine - Continue home hydralazine - Continue home lisinopril - Continue home metoprolol - Continue Isordil - Minoxidil stopped as there is overlap with hydralazine - Cardura per nephrology - With drop in blood pressure hold parameters per nephrology - No intervention able to be performed due to complicated anatomy per vascular surgery - Renal artery duplex studies show normal bilateral renal arteries Acute on chronic anemia secondary to suspected GI bleed - Previous labs we have here from October 2024 and on admission show a hemoglobin between 10 and 12 - Hemoglobin dropped to a radha of 6.6 overnight and received 1 unit of packed red blood cells--> hemoglobin stable at 7.9 on repeat from yesterday afternoon - EGD was performed and patient found to have gastric ulcers as well as multiple small bowel AVMs all were treated with heater probe for coagulation with good hemostasis following - Transition IV Protonix to 40 mg p.o. twice daily and will continue this for at least 3 months with GI follow-up after discharge - Start Carafate 1 g 4 times daily and will continue for 8 weeks following discharge - Patient was instructed to avoid NSAIDs - GI is following-appreciate input Troponin elevation - Suspect related to GI bleed with - Echocardiogram shows normal EF at 65% with moderate mitral valve insufficiency and pulmonary systolic pressure 52 mmHg with moderate pulmonary hypertension - Will defer further workup if echo is unremarkable for wall motion abnormalities Generalized weakness - PT and OT are following and current recommendation is home with help/home health care History of right renal artery stenosis - Previously unsuccessful stenting - Repeat duplex does not show a lesion Tobacco abuse - Continue nicotine replacement therapy if needed and desired - Recommend cessation DVT prophylaxis -Continue SCDs CODE STATUS -Full code Charges/Coding Visit Charges Inpatient E&M: 55811 Subs Hosp L2
--- NOTE | 2025-06-02 08:11 | PCM.PN.REN ---
Subjective Subjective sodium 123 today, s/p endoscopy for anemia, no black stools today. Appetite improving Objective Data Objective Data Vital Signs: Vital Signs Temp Pulse Resp BP Pulse Ox O2 Del Method 97.8 F 59 L 18 170/48 H 95 Room Air 06/02/25 05:08 06/02/25 05:11 06/02/25 05:08 06/02/25 05:08 06/02/25 05:08 06/02/25 05:08 Oxygen Delivery Method Room Air Weight: 56.9 kg Body Mass Index (BMI) 22.2 Intake & Output: Intake and Output for Last 24 Hours 05/31/25 06/01/25 06/02/25 23:59 23:59 23:59 Intake Total 1050 / 1050 668.08 / 668.08 81.17 / 81.17 Output Total 300 / 300 Balance 750 / 750 668.08 / 668.08 81.17 / 81.17 Lab / Micro Data 06/02/25 05:51 06/02/25 05:51 Labs: Laboratory Results - last 24 hr 06/01/25 09:34: Hgb 7.9 L 06/01/25 11:13: Ur Random Sodium 23 06/01/25 18:03: Sodium 117 L*, Potassium 3.7, Chloride 85 L, Carbon Dioxide 19.7 L, Anion Gap 12, BUN 17, Creatinine 1.10, Estim Creat Clear Calc 34.87 L, Est GFR (MDRD) Non-Af 51 L, BUN/Creatinine Ratio 15.5, Glucose 154 H, Calcium 8.8 06/02/25 05:51: WBC 8.8, RBC 2.70 L, Hgb 7.9 L, Hct 22.1 L, MCV 81.9, MCH 29.3, MCHC 35.7, RDW Std Deviation 41.7, RDW Coeff of Cathleen 14.2, Plt Count 173, MPV 9.5, Sodium 123 L, Potassium 3.9, Chloride 91 L, Carbon Dioxide 23.0, Anion Gap 9, BUN 22 H, Creatinine 1.21 H, Estim Creat Clear Calc 31.70 L, Est GFR (MDRD) Non-Af 46 L, BUN/Creatinine Ratio 18.2, Glucose 90, Calcium 8.5 Radiography Diagnostic Testing: Radiology Impression Renal Artery Duplex 05/31/25 11:31 Interpretation Summary Right renal artery patent with normal velocities and no evidence of stenosis. Left renal artery patent with normal velocities and no evidence of stenosis. Right renal vein patent. Left renal vein patent. Right kidney diminished in size. Left kidney normal in size. Previously visualized right renal stenosis not identified. 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 Ordering Physician: Nora Govea Referring Physician: MD Ene Loyd Performed By: Estela Tillman RVT Physical Exam Const alert and oriented x3 Nutritional Appearance: thin HEENT normocephalic Resp clear to auscultation bilaterally Cardio regular rate GI non-tender and non-distended Auscultation: normoactive bowel sounds Assessment & Plan Assessment/Plan (1) Hypo-osmolar hyponatremia: PLAN: sodium 123 today after tolvaptan 7.5mg x1 yesterday. Encourage fluids for creatinine 1.2 today. Appetite improved. Repeat urine sodium 23 (2) Uncontrolled hypertension: PLAN: more difficult to manage medically. Not a candidate for angioplasty of right renal artery stenosis. Will try going back on doxazosin. Minixodil same class as hydralazine. (3) Hypokalemia: PLAN: resolved (4) Renal artery stenosis: PLAN: renal duplex (5) Anemia: PLAN: iron studies low, consider replacement
[2025-06-02] MEDS: Magnesium Chloride 64 MG Delay Rel.Tablet 128 MG PO (08:51)
[2025-06-02] MEDS: Metoprolol(XL)Succ 50 MG Tablet PO (08:51)
[2025-06-02] MEDS: 0.9% Normal Saline (1000mL) 1,000 ML 999 ML IV (13:49)
--- NOTE | 2025-06-02 14:09 | MRI_ITS ---
PROCEDURE: MR SPINE LUMBAR (ROUTINE) 06/02/2025 REASON FOR EXAM: Bilateral lower extremity numbness/weakness TECHNIQUE: Multiplanar and multisequential MRI of the lumbar spine was performed without contrast. COMPARISON: None. FINDINGS: 5 [id number] lumbar-type vertebrae. No evidence of acute fracture or subluxation. Vertebral body heights are preserved. Chronic degenerative/acquired grade 1 anterolisthesis of L4 on L5 by 6-7 mm. Alignment of the vertebral segments is otherwise anatomic at the remaining levels. Mild multilevel spondylotic changes primarily at L4-5 and L5-S1, with disc desiccation and narrowing, endplate osteophytosis, and hypertrophic facet arthropathy. Active degenerative endplate signal changes at L4-5 with mild marrow edema. No suspicious marrow lesion. Conus appears normal in signal and morphology, terminating at at L1. Normal appearance of the cauda equina. No significant abnormality in the visualized paravertebral soft tissues. L1-2: No disc bulge, spinal canal or foraminal narrowing. L2-3: Mild dorsal annular disc bulge indenting the ventral thecal sac. No significant spinal canal or neural foraminal narrowing. L3-4: No disc bulge, spinal canal or neural foraminal narrowing. L4-5: Partially uncovered dorsal disc bulge secondary to grade 1 anterolisthesis of L4, combined with ligamentum flavum/facet hypertrophy results in mild-moderate spinal canal narrowing. Mild-moderate bilateral neural foraminal narrowing, slightly greater on the right. L5-S1: Mild broad-based dorsal disc bulge indenting the ventral thecal sac. No significant spinal canal narrowing. Mild-moderate bilateral neural foraminal narrowing. MRI/Spine Lumbar (Routine) IMPRESSION: No acute abnormality. Multilevel spondylotic changes as described, most pronou nced at L4-5 with degenerative acquired grade 1 anterolisthesis of L4, and with mild-moderate spinal canal and bilateral neural foraminal narrowing. Neural foraminal narrowing also mild-moderate bilaterally at L5-S1. Reading Location: [id number]
[2025-06-03] VITALS (15 sets, daily range): BP systolic 117–162; BP diastolic 41–57; PULSE 63–81; RESP 10–19; TEMP 36.4–36.7; O2SAT 92–99; BMI 21.6
[2025-06-03 06:38] LABS: Hematocrit 21.0 % (37-47); Hemoglobin 7.3 g/dL (12.0-15.0); Mean Corp Hgb Conc 34.8 g/dL (32-36); Mean Corpuscular Volume 84.3 fL (81-99); Mean Platelet Vol. 9.7 fl (6.2-12.0); Platelet Count 165 K/mm3 (150-450); RBC Distribution Width CV 14.8 % (11.6-14.6); RBC Distribution Width SD 45.6 fl (35.1-43.9); Red Blood Count 2.49 M/mm3 (4.2-5.4); White Blood Count 8.4 K/mm3 (4.4-11.0)
[2025-06-03 06:58] LABS: Anion Gap 11 (5-15); BUN 32 mg/dL (4-19); BUN/Creat Ratio 10.4 RATIO (10-20); Calcium,Total 8.4 mg/dL (7.6-11.0); Carbon Dioxide 20.3 mmol/L (21.0-32.0); Chloride 94 mmol/L (98-108); Estimated Creatinine Clearance 12.53 ml/min (50-250); Glucose 102 mg/dL (70-99); Potassium 4.0 mmol/L (3.3-5.1)
[2025-06-03] MEDS: 0.9% Saline Lock 10 ML Syringe IV ×2 (09:00→21:51)
[2025-06-03] MEDS: 0.9% Normal Saline (1000mL) 1,000 ML 999 ML IV (09:00)
--- NOTE | 2025-06-03 10:06 | PCM.PN.REN ---
Subjective Subjective episode of hypotension with leg weakness, near syncope. Fluid resuscitated. BP meds held. Feeling better today. Oligoanuric with creatinine elevation at 3.06 today. Will hold lisinopril. Hgb 7.3g, may need blood transfusion Objective Data Objective Data Vital Signs: Vital Signs Temp Pulse Resp BP Pulse Ox O2 Del Method 98 F 69 13 129/48 H 92 Room Air 06/03/25 04:30 06/03/25 04:30 06/03/25 04:30 06/03/25 04:30 06/03/25 04:30 06/03/25 04:30 Oxygen Delivery Method Room Air Weight: 55.4 kg Body Mass Index (BMI) 21.6 Intake & Output: Intake and Output for Last 24 Hours 06/01/25 06/02/25 06/03/25 23:59 23:59 23:59 Intake Total 668.08 / 668.08 2096.50 / 2096.50 Output Total 60 / 60 Balance 668.08 / 668.08 2096.50 / 2096.50 -60 / -60 Lab / Micro Data 06/03/25 05:54 06/03/25 05:54 Labs: Laboratory Results - last 24 hr 05/31/25 18:01: Crossmatch See Detail 06/02/25 13:03: POC Glucose 138 H 06/03/25 05:54: WBC 8.4, RBC 2.49 L, Hgb 7.3 L, Hct 21.0 L, MCV 84.3, MCH 29.3, MCHC 34.8, RDW Std Deviation 45.6 H, RDW Coeff of Cathleen 14.8 H, Plt Count 165, MPV 9.7, Sodium 125 L, Potassium 4.0, Chloride 94 L, Carbon Dioxide 20.3 L, Anion Gap 11, BUN 32 H, Creatinine 3.06 H, Estim Creat Clear Calc 12.53 L, Est GFR (MDRD) Non-Af 15 L, BUN/Creatinine Ratio 10.4, Glucose 102 H, Calcium 8.4 Radiography Diagnostic Testing: Radiology Impression Lumbar Spine MRI 06/02/25 14:09 IMPRESSION: No acute abnormality. Multilevel spondylotic changes as described, most pronounced at L4-5 with degenerative acquired grade 1 anterolisthesis of L4, and with mild-moderate spinal canal and bilateral neural foraminal narrowing. Neural foraminal narrowing also mild-moderate bilaterally at L5-S1. Reading Location: [facility] Physical Exam Const alert and oriented x3 GI non-tender and non-distended Auscultation: normoactive bowel sounds Palpation: soft Extremity no clubbing, cyanosis or edema Assessment & Plan Assessment/Plan (1) ANTONINO (acute kidney injury): PLAN: Creatinine increased to 3.0 likely due to shock, hypotension. Stop lisinopril, maintain SBP 140 due to ASVD with fluids, hold BP meds as needed, prbc as needed (2) Hypo-osmolar hyponatremia: PLAN: sodium 125 today (3) Uncontrolled hypertension: PLAN: more difficult to manage medically. Not a candidate for angioplasty of right renal artery stenosis. Will try going back on doxazosin. Minixodil same class as hydralazine. (4) Hypokalemia: PLAN: resolved. Stop KCL due to ANTONINO. (5) Renal artery stenosis: PLAN: not a surgical candidate (6) Anemia: PLAN: iron studies low, consider replacement, prbc as needed (7) Hypotension: PLAN: acute hypotension combination of medications, anemia, dehydraton. IV fluids for now. BP stable. Maintain SBP 140 or higher due to ASVD
[2025-06-03] MEDS: Metoprolol(XL)Succ 50 MG Tablet PO (10:18)
[2025-06-03] MEDS: Isosorbide DN 20 MG Tablet 40 MG PO ×2 (14:00→21:39)
--- NOTE | 2025-06-03 16:22 | PCM.PN.HOSP ---
Reason for Visit Chief Complaint: Weakness, lightheadedness, generally feeling unwell Subjective Subjective Patient states he is feeling much better than yesterday. We do suspect that her symptoms yesterday were related to her hypotension. Nephrology has been hold parameters on her antihypertensives and I am transfusing her some blood as her baseline hemoglobin transfer around 12 and this may be contributing to her overall generalized weakness. Overall, her hemoglobin has stabilized since intervention from GI. Objective Data Objective Data Vital Signs: Vital Signs Temp Pulse Resp BP Pulse Ox O2 Del Method 97.7 F L 65 13 140/50 H 97 Room Air 06/03/25 13:51 06/03/25 15:47 06/03/25 15:47 06/03/25 15:47 06/03/25 15:47 06/03/25 15:47 Oxygen Delivery Method Room Air Weight: 55.4 kg Body Mass Index (BMI) 21.6 Intake & Output: Intake and Output for Last 24 Hours 06/01/25 06/02/25 06/03/25 23:59 23:59 23:59 Intake Total 668.08 / 668.08 2096.50 / 2096.50 1800 / 1800 Output Total 60 / 60 Balance 668.08 / 668.08 2096.50 / 2096.50 1740 / 1740 Lab / Micro Data 06/03/25 05:54 06/03/25 05:54 Labs: Laboratory Results - last 24 hr 05/31/25 18:01: Crossmatch See Detail 06/03/25 05:54: WBC 8.4, RBC 2.49 L, Hgb 7.3 L, Hct 21.0 L, MCV 84.3, MCH 29.3, MCHC 34.8, RDW Std Deviation 45.6 H, RDW Coeff of Cathleen 14.8 H, Plt Count 165, MPV 9.7, Sodium 125 L, Potassium 4.0, Chloride 94 L, Carbon Dioxide 20.3 L, Anion Gap 11, BUN 32 H, Creatinine 3.06 H, Estim Creat Clear Calc 12.53 L, Est GFR (MDRD) Non-Af 15 L, BUN/Creatinine Ratio 10.4, Glucose 102 H, Calcium 8.4 Radiography Diagnostic Testing: Radiology Impression Lumbar Spine MRI 06/02/25 14:09 IMPRESSION: No acute abnormality. Multilevel spondylotic changes as described, most pronounced at L4-5 with degenerative acquired grade 1 anterolisthesis of L4, and with mild-moderate spinal canal and bilateral neural foraminal narrowing. Neural foraminal narrowing also mild-moderate bilaterally at L5-S1. Reading Location: [facility] Physical Exam Narrative Low Const alert, oriented x3, no apparent distress, average body habitus and well nourished Constitutional Narrative: Older, white female, sitting up in a chair at the bedside watching TV, looks good currently HEENT normocephalic, head/scalp atraumatic and moist oral mucous membranes HEENT Narrative: Mallampati 2 Eyes Negative for conjunctivae normal Eyes Narrative: no scleral icterus, B Conjunctival pallor Neck supple Neck Narrative: trachea midline Resp normal respiratory effort, no retractions, no use of accessory muscles and clear to auscultation bilaterally Resp Narrative: Slightly diminished diffusely Auscultation: Negative for rales, rhonchi or wheezes Cardio regular rate, regular rhythm, S1 normal heart sound, S2 normal heart sound, no murmurs, no rub, no gallops and no clicks GI normal to inspection, nondistended, normoactive bowel sounds, soft to palpation and non-tender Extremity no clubbing, cyanosis or edema Extremity Narrative: Patient with bilateral clubbing on hands and nailbeds are white, no cyanosis or edema noted, 1+ pedal pulses, 2+ radial pulses Skin no jaundice, no petechiae and no mottling Skin Narrative: pale Neuro oriented x3, moves all extremities, no focal motor deficits and no sensory deficits noted Speech: speech normal Psych affect normal Psych Narrative: Eye contact is good, patient interacts appropriately, very pleasant Assessment & Plan Assessment/Plan (1) Hypo-osmolar hyponatremia: (2) Hypomagnesemia: (3) Hypokalemia: (4) Renal artery stenosis: (5) Uncontrolled hypertension: (6) Acute anemia: (7) GI bleed: (8) Lower extremity weakness: (9) Paresthesia of lower extremity: PLAN: Plan Hypoosmolar hyponatremia - Etiology is unclear but 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 - Continue to hold thiazide diuretic - Patient was given tolvaptan on 06/01 and serum sodium is up to 125 -Patient remains asymptomatic - Nephrology following-appreciate input - Ultimate plan for treatment up to nephrology ANTONINO 2/2 ATN - from hypotension yesterday and free water loss with tolvaptan - Patient somewhat oliguric now and serum creatinine is up from 1-3--> 1.2-3.06 in last 24 hours - Transfused 2 units packed red blood cells and support blood pressure Acute onset bilateral lower extremity paresthesias and weakness - resolved - MRI does not show acute process to explain - suspect related from hypotension and improved with bolus Uncontrolled hypertension - Chlorthalidone is on hold - antihypertensives on hold with parameters - blood pressure hold parameters per nephrology - No intervention able to be performed due to complicated anatomy per vascular surgery - Renal artery duplex studies show normal bilateral renal arteries Acute on chronic anemia secondary to suspected GI bleed -Hemoglobin is relatively stable however patient has had some hemodynamic issues and ongoing fatigue/lightheadedness so we will transfuse 2 units packed red blood cells today - EGD was performed and patient found to have gastric ulcers as well as multiple small bowel AVMs all were treated with heater probe for coagulation with good hemostasis following -Continue Protonix 40 mg p.o. twice daily -Continue Carafate 1 g 4 times daily and will continue for 8 weeks following discharge - Patient was instructed to avoid NSAIDs - GI is following-appreciate input Troponin elevation - Suspect related to GI bleed - Patient chest pain-free - Echocardiogram shows normal EF at 65% with moderate mitral valve insufficiency and pulmonary systolic pressure 52 mmHg with moderate pulmonary hypertension -No further workup at this time - Recommend outpatient follow-up Generalized weakness - PT and OT are following and current recommendation is home with help/home health care History of right renal artery stenosis - Previously unsuccessful stenting - Repeat duplex does not show a lesion Tobacco abuse - Continue nicotine replacement therapy if needed and desired - Recommend cessation DVT prophylaxis -Continue SCDs CODE STATUS -Full code Charges/Coding Visit Charges Inpatient E&M: 38453 [facility] Hosp L3
[2025-06-04] VITALS (13 sets, daily range): BP systolic 129–177; BP diastolic 37–55; PULSE 60–71; RESP 14–18; TEMP 36.2–36.8; O2SAT 92–97; BMI 22.4
[2025-06-04 06:01] LABS: Hematocrit 26.4 % (37-47); Hemoglobin 9.5 g/dL (12.0-15.0); Mean Corp Hgb Conc 36.0 g/dL (32-36); Mean Corpuscular Volume 84.9 fL (81-99); Mean Platelet Vol. 9.6 fl (6.2-12.0); Platelet Count 152 K/mm3 (150-450); RBC Distribution Width CV 14.5 % (11.6-14.6); RBC Distribution Width SD 44.6 fl (35.1-43.9); Red Blood Count 3.11 M/mm3 (4.2-5.4); White Blood Count 11.0 K/mm3 (4.4-11.0)
[2025-06-04 06:43] LABS: Anion Gap 12 (5-15); BUN 43 mg/dL (4-19); BUN/Creat Ratio 13.5 RATIO (10-20); Calcium,Total 8.2 mg/dL (7.6-11.0); Carbon Dioxide 18.5 mmol/L (21.0-32.0); Chloride 94 mmol/L (98-108); Estimated Creatinine Clearance 12.06 ml/min (50-250); Glucose 97 mg/dL (70-99); Potassium 4.0 mmol/L (3.3-5.1)
--- NOTE | 2025-06-04 08:17 | PCM.PN.HOSP ---
Reason for Visit Chief Complaint: Weakness, lightheadedness, generally feeling unwell Subjective Subjective Patient states she is feeling pretty good today. No complaints currently. We did discuss the overall plan of waiting till her renal function improves and ensuring her sodium is stable. Blood counts are stable at this time. Objective Data Objective Data Vital Signs: Vital Signs Temp Pulse Resp BP Pulse Ox O2 Del Method 98.2 F 71 16 129/37 H 92 Room Air 06/04/25 03:34 06/04/25 06:27 06/04/25 03:34 06/04/25 06:27 06/04/25 03:34 06/04/25 03:51 Oxygen Delivery Method Room Air Weight: 57.6 kg Body Mass Index (BMI) 22.4 Intake & Output: Intake and Output for Last 24 Hours 06/02/25 06/03/25 06/04/25 23:59 23:59 23:59 Intake Total 2096.50 / 2096.50 1800 / 1800 240 / 240 Output Total 60 / 60 Balance 2096.50 / 2096.50 1740 / 1740 240 / 240 Lab / Micro Data 06/04/25 05:49 06/04/25 05:49 Labs: Laboratory Results - last 24 hr 05/31/25 18:01: Crossmatch See Detail 06/04/25 05:49: WBC 11.0, RBC 3.11 L, Hgb 9.5 L, Hct 26.4 L, MCV 84.9, MCH 30.5, MCHC 36.0, RDW Std Deviation 44.6 H, RDW Coeff of Cathleen 14.5, Plt Count 152, MPV 9.6, Sodium 124 L, Potassium 4.0, Chloride 94 L, Carbon Dioxide 18.5 L, Anion Gap 12, BUN 43 H, Creatinine 3.18 H, Estim Creat Clear Calc 12.06 L, Est GFR (MDRD) Non-Af 14 L, BUN/Creatinine Ratio 13.5, Glucose 97, Calcium 8.2 Physical Exam Narrative Low Const alert, oriented x3, no apparent distress, average body habitus and well nourished; Negative for healthy appearing Constitutional Narrative: Older, white female, sitting up in bed, appears comfortable, reading on her [place], nontoxic General Appearance: cooperative, well kempt and well developed HEENT normocephalic, head/scalp atraumatic and moist oral mucous membranes Eyes Negative for conjunctivae normal Neck Neck Narrative: trachea midline Resp normal respiratory effort, no retractions, no use of accessory muscles and clear to auscultation bilaterally Resp Narrative: Slightly diminished diffusely Auscultation: Negative for rales, rhonchi or wheezes Cardio regular rate, regular rhythm, S1 normal heart sound, S2 normal heart sound, no murmurs, no rub, no gallops and no clicks GI normal to inspection, nondistended, normoactive bowel sounds, soft to palpation and non-tender Extremity no clubbing, cyanosis or edema Extremity Narrative: Patient with bilateral clubbing on hands and nailbeds are white, no cyanosis or edema noted, 1+ pedal pulses, 2+ radial pulses Neuro oriented x3, moves all extremities and no focal motor deficits Speech: speech normal Psych affect normal Psych Narrative: Eye contact is good, patient interacts appropriately, very pleasant Assessment & Plan Assessment/Plan (1) Hypo-osmolar hyponatremia: (2) Hypomagnesemia: (3) Hypokalemia: (4) Renal artery stenosis: (5) Uncontrolled hypertension: (6) Acute anemia: (7) GI bleed: (8) Lower extremity weakness: (9) Paresthesia of lower extremity: PLAN: Plan Hypoosmolar hyponatremia - Etiology is unclear but 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 - Continue to hold thiazide diuretic - Patient was given tolvaptan on 06/01 and serum sodium is up to 124-->125 -Patient remains asymptomatic - Nephrology following-appreciate input - Ultimate plan for treatment up to nephrology ANTONINO 2/2 ATN - from hypotension yesterday and free water loss with tolvaptan - Patient somewhat oliguric now and serum creatinine is up from 1-3--> 1.2-->3.18 in last 24 hours - 2 u PRBC yesterday Acute onset bilateral lower extremity paresthesias and weakness - resolved - MRI does not show acute process to explain - suspect related from hypotension and improved with bolus Uncontrolled hypertension - Chlorthalidone is on hold - antihypertensives on hold with parameters - blood pressure hold parameters per nephrology - No intervention able to be performed due to complicated anatomy per vascular surgery - Renal artery duplex studies show normal bilateral renal arteries Acute on chronic anemia secondary to suspected GI bleed -Hemoglobin is relatively stable however patient has had some hemodynamic issues and ongoing fatigue/lightheadedness so we will transfuse 2 units packed red blood cells today - EGD was performed and patient found to have gastric ulcers as well as multiple small bowel AVMs all were treated with heater probe for coagulation with good hemostasis following -Continue Protonix 40 mg p.o. twice daily -Continue Carafate 1 g 4 times daily and will continue for 8 weeks following discharge - hgb up to 9.5 with blood and appropriate for blood - Patient was instructed to avoid NSAIDs - GI is following-appreciate input Troponin elevation - Suspect related to GI bleed - Patient chest pain-free - Echocardiogram shows normal EF at 65% with moderate mitral valve insufficiency and pulmonary systolic pressure 52 mmHg with moderate pulmonary hypertension -No further workup at this time - Recommend outpatient follow-up Generalized weakness - PT and OT are following and current recommendation is home with help/home health care History of right renal artery stenosis - Previously unsuccessful stenting - Repeat duplex does not show a lesion Tobacco abuse - Continue nicotine replacement therapy if needed and desired - Recommend cessation DVT prophylaxis -Continue SCDs CODE STATUS -Full code Charges/Coding Visit Charges Inpatient E&M: 01437 Subs Hosp L2
--- NOTE | 2025-06-04 09:37 | PCM.PN.REN ---
Subjective Subjective feeling better, stronger. BP meds held due to low readings. Urine output volumes not measured but concentrated. Complains of thirst. Will stop fluid restriction. Sodium 124, creatinine 3.18, hgb 9.5 after 2 units prbc yesterday along with fluid resuscitation for hypotension Objective Data Objective Data Vital Signs: Vital Signs Temp Pulse Resp BP Pulse Ox O2 Del Method 98.2 F 71 16 129/37 H 92 Room Air 06/04/25 03:34 06/04/25 06:27 06/04/25 03:34 06/04/25 06:27 06/04/25 03:34 06/04/25 08:26 Oxygen Delivery Method Room Air Weight: 57.6 kg Body Mass Index (BMI) 22.4 Intake & Output: Intake and Output for Last 24 Hours 06/02/25 06/03/25 06/04/25 23:59 23:59 23:59 Intake Total 2096.50 / 2096.50 1800 / 1800 240 / 240 Output Total 60 / 60 Balance 2096.50 / 2096.50 1740 / 1740 240 / 240 Lab / Micro Data 06/04/25 05:49 06/04/25 05:49 Labs: Laboratory Results - last 24 hr 05/31/25 18:01: Crossmatch See Detail 06/04/25 05:49: WBC 11.0, RBC 3.11 L, Hgb 9.5 L, Hct 26.4 L, MCV 84.9, MCH 30.5, MCHC 36.0, RDW Std Deviation 44.6 H, RDW Coeff of Cathleen 14.5, Plt Count 152, MPV 9.6, Sodium 124 L, Potassium 4.0, Chloride 94 L, Carbon Dioxide 18.5 L, Anion Gap 12, BUN 43 H, Creatinine 3.18 H, Estim Creat Clear Calc 12.06 L, Est GFR (MDRD) Non-Af 14 L, BUN/Creatinine Ratio 13.5, Glucose 97, Calcium 8.2 Physical Exam Const alert and oriented x3 Nutritional Appearance: thin HEENT normocephalic Resp clear to auscultation bilaterally Cardio regular rate GI non-tender and non-distended Auscultation: normoactive bowel sounds Palpation: soft Extremity no clubbing, cyanosis or edema Assessment & Plan Assessment/Plan (1) ANTONINO (acute kidney injury): PLAN: Creatinine increased to 3.18 likely due to shock, hypotension, ATN. Stop lisinopril, maintain SBP 140 due to ASVD wmeds as needed, prbc as needed/ Spoke with pt family niece, nephew at bedside. (2) Hypo-osmolar hyponatremia: PLAN: sodium 124 today (3) Uncontrolled hypertension: PLAN: hold meds for SBP <140 due to ASVD, symptomatic hypotension. (4) Hypokalemia: PLAN: resolved. Stop KCL due to ANTONINO. (5) Renal artery stenosis: PLAN: not a surgical candidate (6) Anemia: PLAN: iron supplements, s/p prbc (7) Hypotension: PLAN: acute hypotension combination of medications, anemia, dehydraton. w. stable BP. Suggest decreasing isordil dose due to low BPs
[2025-06-04] MEDS: Metoprolol(XL)Succ 50 MG Tablet PO ×2 (09:43→22:26)
--- NOTE | 2025-06-04 09:46 | CASEMGMT ---
Addendum entered by Estela Caballero 06/04/25 14:34: LEILA PÉREZ received script for outpatient therapy and referral sent to [facility] Original Note: LEILA PÉREZ in to discuss discharge planning with patient, family at bedside. Patient ambulated 200ft SBA, therapy recommending outpatient therapy. LEILA PÉREZ discussed recommendation of outpatient therapy and patient is agreeable. LEILA PÉREZ reviewed facilities and patient prefers [facility] and would like [facility] to call patient to schedule appt. Patient will also need walker at discharge, prefers [facility]. Patient denies further needs or concerns. LEILA PÉREZ udpated hospitalist awaiting scripts. Green sheet placed on chart for walker if patient discharges over the weekend. CM to send referral to [facility] once script received.
[2025-06-04] MEDS: Isosorbide DN 20 MG Tablet 40 MG PO ×2 (15:00→22:25)
[2025-06-05] VITALS (10 sets, daily range): BP systolic 144–168; BP diastolic 49–57; PULSE 62–68; RESP 18; TEMP 36.2–36.6; O2SAT 91–96; BMI 24.4
[2025-06-05] MEDS: Isosorbide DN 20 MG Tablet 40 MG PO ×3 (05:56→21:38)
[2025-06-05 07:48] LABS: Hematocrit 27.0 % (37-47); Hemoglobin 9.5 g/dL (12.0-15.0); Immature Granulocytes Count 0.060 X10^3/uL (0.0-0.0); Mean Corp Hgb Conc 35.2 g/dL (32-36); Mean Corpuscular Volume 84.9 fL (81-99); Mean Platelet Vol. 10.0 fl (6.2-12.0); NRBC Flagged by Analyzer 0 % (0-5); Platelet Count 183 K/mm3 (150-450); RBC Distribution Width CV 14.6 % (11.6-14.6); RBC Distribution Width SD 45.0 fl (35.1-43.9); Red Blood Count 3.18 M/mm3 (4.2-5.4); White Blood Count 9.5 K/mm3 (4.4-11.0)
[2025-06-05 08:06] LABS: AST(SGOT) 22 U/L (<=31); Alanine Aminotransfer ALT/SGPT 24 U/L (<=34); Albumin, Serum 3.3 g/dL (3.4-4.8); Alkaline Phosphatase 68 U/L (35-104); Anion Gap 11 (5-15); BUN 51 mg/dL (4-19); BUN/Creat Ratio 21.4 RATIO (10-20); Calcium,Total 8.4 mg/dL (7.6-11.0); Carbon Dioxide 17.6 mmol/L (21.0-32.0); Chloride 92 mmol/L (98-108); Estimated Creatinine Clearance 16.25 ml/min (50-250); Globulin 1.9 g/dL (2.2-4.2); Glucose 94 mg/dL (70-99); Potassium 4.0 mmol/L (3.3-5.1)
--- NOTE | 2025-06-05 08:19 | PN.HOSP_ITS ---
Reason for Visit Chief Complaint: Weakness, lightheadedness, generally feeling unwell Subjective Subjective Patient states he is feeling okay but just not super mild today. Denies any specific complaints. Does complain that her left antecubital fossa area is tender. It looks like she had a superficial thrombophlebitis but there is some erythema around the insertion sites we will go ahead and treat with short course of antibiotics. I did discuss with her and nursing that warm compress may be helpful. Plan is for discharge home tomorrow as long as she remains stable Objective Data Objective Data Vital Signs: Vital Signs Temp Pulse Resp BP Pulse Ox O2 Del Method 97.1 F L 68 18 168/57 H 91 Room Air 06/05/25 03:19 06/05/25 05:57 06/05/25 03:19 06/05/25 05:57 06/05/25 03:19 06/05/25 08:04 Oxygen Delivery Method Room Air Weight: 62.5 kg Body Mass Index (BMI) 24.4 Intake & Output: Intake and Output for Last 24 Hours 06/03/25 06/04/25 06/05/25 23:59 23:59 23:59 Intake Total 1800 / 1800 1510 / 1510 Output Total 60 / 60 850 / 850 350 / 350 Balance 1740 / 1740 660 / 660 -350 / -350 Lab / Micro Data 06/05/25 06:50 06/05/25 06:50 Labs: Laboratory Results - last 24 hr 06/05/25 06:50: WBC 9.5, RBC 3.18 L, Hgb 9.5 L, Hct 27.0 L, MCV 84.9, MCH 29.9, MCHC 35.2, RDW Std Deviation 45.0 H, RDW Coeff of Cathleen 14.6, Plt Count 183, MPV 10.0, Immature Gran % (Auto) 0.600, Neut % (Auto) 77.4 H, Lymph % (Auto) 9.5 L, [place] % (Auto) 9.4, Eos % (Auto) 2.6, Baso % (Auto) 0.5, Absolute Neuts (auto) 7.4, Absolute Lymphs (auto) 0.90, Nucleated RBC % 0, Sodium 120 L, Potassium 4.0, Chloride 92 L, Carbon Dioxide 17.6 L, Anion Gap 11, BUN 51 H, Creatinine 2.36 H, Estim Creat Clear Calc 16.25 L, Est GFR (MDRD) Non-Af 21 L, B UN/Creatinine Ratio 21.4 H, Glucose 94, Calcium 8.4, Total Bilirubin 0.55, AST 22, ALT 24, Alkaline Phosphatase 68, Total Protein 5.2 L, Albumin 3.3 L, G lobulin 1.9 L, Albumin/Globulin Ratio 1.7 Physical Exam Narrative Low Const alert, oriented x3, no apparent distress, average body habitus and well nourished; Negative for healthy appearing Constitutional Narrative: Older, white female, sitting up in bed, appears comfortable, nontoxic, therapy services at the bedside getting ready to work with her. General Appearance: cooperative, well kempt and well developed HEENT normocephalic, head/scalp atraumatic and moist oral mucous membranes HEENT Narrative: No thrush Eyes Negative for conjunctivae normal Eyes Narrative: no scleral icterus, B Conjunctival pallor Resp normal respiratory effort, no retractions, no use of accessory muscles and clear to auscultation bilaterally Resp Narrative: Slightly diminished diffusely Auscultation: Negative for rales, rhonchi or wheezes Cardio regular rate, regular rhythm, S1 normal heart sound, S2 normal heart sound, no murmurs, no rub, no gallops and no clicks GI normal to inspection, nondistended, normoactive bowel sounds, soft to palpation and non-tender Extremity Extremity Narrative: Patient with bilateral clubbing on hands and nailbeds are white, no cyanosis or edema noted, 1+ pedal pulses, 2+ radial pulses Skin Skin Narrative: pale Neuro oriented x3, moves all extremities and no focal motor deficits Speech: speech normal Psych affect normal Psych Narrative: Eye contact is good, patient interacts appropriately, very pleasant Assessment & Plan Assessment/Plan (1) Hypo-osmolar hyponatremia: (2) Hypomagnesemia: (3) Hypokalemia: (4) Renal artery stenosis: (5) Uncontrolled hypertension: (6) Acute anemia: (7) GI bleed: (8) Lower extremity weakness: (9) Paresthesia of lower extremity: PLAN: Plan Hypoosmolar hyponatremia - Etiology is unclear but 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 Govea from nephrology - Nephrology following-appreciate input ANTONINO 2/2 ATN - from hypotension yesterday and free water loss with tolvaptan - Patient somewhat oliguric now and serum creatinine is up from 1-3--> 1.2--> down to 2.36 from 3.18 yesterday - 2 u PRBC 731 Mild metabolic acidosis - Serum bicarb of 17.6 with a normal anion gap - Likely related to ANTONINO - Repeat lab in a.m. should improve his renal function improves Acute onset bilateral lower extremity paresthesias and weakness - resolved - MRI does not show acute process to explain - suspect related from hypotension and improved with bolus Uncontrolled hypertension - Will discontinue chlorthalidone at time of discharge - Plan is for home with amlodipine, metoprolol, and hydralazine - No intervention able to be performed due to complicated anatomy per vascular surgery - Renal artery duplex studies show normal bilateral renal arteries Acute on chronic anemia secondary to suspected GI bleed -Hemoglobin is relatively stable however patient has had some hemodynamic issues and ongoing fatigue/lightheadedness so we will transfuse 2 units packed red blood cells today - EGD was performed and patient found to have gastric ulcers as well as multiple small bowel AVMs all were treated with heater probe for coagulation with good hemostasis following -Continue Protonix 40 mg p.o. twice daily -Continue Carafate 1 g 4 times daily and will continue for 8 weeks following discharge - Hemoglobin is stable at 9.5 - Patient was instructed to avoid NSAIDs - GI is following-appreciate input Troponin elevation - Suspect related to GI bleed - Patient chest pain-free - Echocardiogram shows normal EF at 65% with moderate mitral valve insufficiency and pulmonary systolic pressure 52 mmHg with moderate pulmonary hypertension -No further workup at this time - Recommend outpatient follow-up Generalized weakness - PT and OT are following and current recommendation is home with help/home health care History of right renal artery stenosis - Previously unsuccessful stenting - Repeat duplex does not show a lesion Left upper extremity antecubital superficial thrombophlebitis - Possible cellulitis - Will start Augmentin - Warm compresses recommended Tobacco abuse - Continue nicotine replacement therapy if needed and desired - Recommend cessation DVT prophylaxis -Continue SCDs CODE STATUS -Full code Charges/Coding Visit Charges Inpatient E&M: 13828 Subs Hosp L2
[2025-06-05] MEDS: Senna/Docusate Sodium 1 Tablet 2 TABLET PO (08:45)
[2025-06-05] MEDS: Metoprolol(XL)Succ 50 MG Tablet PO ×2 (08:45→21:39)
[2025-06-05] MEDS: TOLVAPTAN 15 MG TABLET 7.5 MG PO (09:19)
[2025-06-05 15:23] LABS: Anion Gap 13 (5-15); BUN 49 mg/dL (4-19); BUN/Creat Ratio 23.4 RATIO (10-20); Calcium,Total 8.6 mg/dL (7.6-11.0); Carbon Dioxide 15.8 mmol/L (21.0-32.0); Chloride 93 mmol/L (98-108); Estimated Creatinine Clearance 18.44 ml/min (50-250); Glucose 147 mg/dL (70-99); Potassium 3.8 mmol/L (3.3-5.1)
[2025-06-06 03:16] VITALS: BMI 24.4
[2025-06-06 05:59] VITALS: BP 175/53; PULSE 62; RESP 16; TEMP 36.8; O2SAT 93
[2025-06-06 06:02] VITALS: BP 175/53; PULSE 62
[2025-06-06] MEDS: Isosorbide DN 20 MG Tablet 40 MG PO ×2 (06:02→14:00)
[2025-06-06] MEDS: 0.9% Saline Lock 10 ML Syringe IV (06:03)
[2025-06-06 06:36] LABS: Hematocrit 28.9 % (37-47); Hemoglobin 10.2 g/dL (12.0-15.0); Mean Corp Hgb Conc 35.3 g/dL (32-36); Mean Corpuscular Volume 85.3 fL (81-99); Mean Platelet Vol. 10.1 fl (6.2-12.0); Platelet Count 188 K/mm3 (150-450); RBC Distribution Width CV 14.6 % (11.6-14.6); RBC Distribution Width SD 45.4 fl (35.1-43.9); Red Blood Count 3.39 M/mm3 (4.2-5.4); White Blood Count 7.3 K/mm3 (4.4-11.0)
[2025-06-06 07:03] LABS: Anion Gap 12 (5-15); BUN 48 mg/dL (4-19); BUN/Creat Ratio 22.2 RATIO (10-20); Calcium,Total 8.5 mg/dL (7.6-11.0); Carbon Dioxide 17.4 mmol/L (21.0-32.0); Chloride 94 mmol/L (98-108); Estimated Creatinine Clearance 17.76 ml/min (50-250); Glucose 88 mg/dL (70-99); Potassium 3.9 mmol/L (3.3-5.1)
--- NOTE | 2025-06-06 07:38 | PCM.DC.SUM ---
Providers Date of Admission: 05/29/25 Date of Discharge: 06/06/25 Primary Care Physician: Dr. Loyd Luque MD Consultations 05/31/25 11:31 Consult: Vascular Surgery Routine Consulting Provider: Porfirio Mei Reason for Consult: renal artery stenosis EMERGENT Consult: No Notified: Yes Date Notified: 05/31/25 Time Notified: 12:08 Method of Notification: Verbal 05/31/25 11:47 Consult: Nephrology Routine Consulting Provider: Nora Govea Reason for Consult: hyponatremia EMERGENT Consult: No Notified: Yes Date Notified: 05/31/25 Time Notified: 09:30 Method of Notification: Verbal 06/01/25 08:11 Consult: Gastroenterology Routine Consulting Provider: [facility] Reason for Consult: Acute anemia with suspected GI loss EMERGENT Consult: No Notified: Yes Date Notified: 06/01/25 Time Notified: 08:11 Method of Notification: Text Reason For Visit: HYPONATREMIA Diagnosis Discharge Diagnosis (1) Hypo-osmolar hyponatremia: Status: Acute Code(s): E87.1 - Hypo-osmolality and hyponatremia (2) Hypomagnesemia: Status: Acute Code(s): E83.42 - Hypomagnesemia (3) Hypokalemia: Status: Acute Code(s): E87.6 - Hypokalemia (4) Renal artery stenosis: Status: Chronic Code(s): I70.1 - Atherosclerosis of renal artery (5) Uncontrolled hypertension: Status: Acute Code(s): I10 - Essential (primary) hypertension (6) Acute anemia: Status: Acute Code(s): D64.9 - Anemia, unspecified (7) GI bleed: Status: Acute Code(s): K92.2 - Gastrointestinal hemorrhage, unspecified (8) Lower extremity weakness: Status: Acute Code(s): R29.898 - Other symptoms and signs involving the musculoskeletal system (9) Paresthesia of lower extremity: Status: Acute Code(s): R20.2 - Paresthesia of skin Medications at Discharge Home Medications amlodipine 10 mg tablet 10 mg PO DAILY 03/21/23 metoprolol succinate 50 mg tablet,extended release 24 hr 50 mg PO BID 08/27/24 ferrous sulfate 325 mg (65 mg iron) tablet (FeroSul) 325 mg PO 1200,1700 #60 tabs 06/06/25 hydralazine 50 mg tablet 100 mg (2 x 50 mg) PO TID #90 tabs 06/06/25 isosorbide dinitrate 20 mg tablet 40 mg (2 x 20 mg) PO TID #90 tabs 06/06/25 pantoprazole 40 mg tablet,delayed release 40 mg PO BID #60 tabs 06/06/25 sodium bicarbonate 650 mg tablet 650 mg PO BID #60 tabs 06/06/25 sucralfate 1 gram tablet 1 g PO 1HR_ACHS #120 tabs 06/06/25 Hospital Course Operations None Procedures 2-D Echocardiogram, Blood transfusion, EGD, EKG and - (CT brain/MRI lumbar spine/CT chest/chest x-ray/renal duplex) Summary of Care Provided Minutes Spent on Discharge: 45 Hospital Course: Patient is a 79-year-old white female who presented to the emergency department was from a hospital on 05/29/2025 with chief complaint of weakness and lightheadedness. Patient was having increased shortness of breath, swelling, dizziness and weakness for about 4 days prior to presentation. She reported occasional dizziness with standing but denied headache. She had no falls or traumas and has been compliant with her home antihypertensive regimen however she does have complex hypertension with history of renal artery stenosis with previous attempted intervention by vascular surgery without success. Vital signs on presentation showed temperature 97.8, heart rate 68, blood pressure was 185/54 with a pulse ox of 96% on room air. CBC showed a normal white count, hemoglobin of 10.2. UA was not suggestive of infection, proBNP was 5274 with a troponin of 20. CMP was markedly abnormal with a serum sodium of 106, potassium of 3.5, chloride 73, BUN was 21 with a serum creatinine of 1.06. Glucose was 121 and liver profile was unremarkable. Given her profound hyponatremia we were consulted for admission. She had been on chlorthalidone for some time as an outpatient. She follows with Dr. Govea from nephrology for her blood pressure and they has been trying to better regulate her antihypertensive regimen. Patient does have a history of tobacco abuse. She was admitted to the floor and found to have hypoosmolar hyponatremia. Her thiazide diuretic was discontinued and nephrology was consulted. A CT of the chest was performed to rule out ADH producing lung malignancy and this was unremarkable. An echocardiogram was done given her uncontrolled hypertension and she was found have an EF of 65% with moderate eccentric mitral valve insufficiency, pulmonary systolic pressure of 52 mmHg and moderate pulmonary hypertension. 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 Ultimately her thiazide diuretic was discontinued to at the time of discharge. She was given 2 doses of tolvaptan and her serum sodium at the time of discharge was 124. She has close follow-up with Dr. Govea, her environmental health and safety leader, on 06/09/2025 with repeat lab being pursued and ongoing workup and intervention by nephrology. Her blood pressure medicines were also altered during her hospitalization. Vascular surgery was reconsulted but given their previous attempts deferred any ongoing attempts with recommendations to transfer to tertiary center however repeat renal duplex was performed and found to be unremarkable which was interesting. She was also noted to have a decrease in her hemoglobin slowly early on in her hospitalization and her hemoglobin dipped down to the low sevens. She was given 2 units of packed red blood cells and GI was consulted for suspected GI bleed. At that time she was placed on IV Protonix. An EGD was performed on 06/01/2025 and she was found to have gastric ulcers as well as multiple small bowel AVMs that were treated with heater probe having good hemostasis following. Ultimately, her hemoglobin did stabilize. She will be discharged on Protonix 40 mg p.o. twice daily for 3 months and Carafate 1 g 4 times daily for 8 weeks with outpatient follow-up within the next month following with GI. She had mild troponin elevation that was likely related to her GI bleed and marked metabolic issues on presentation. She had transient hypotension which resolved and ANTONINO. Renal function was improving at the time of discharge but she did develop a metabolic acidosis which she was started bicarb p.o. twice daily and was discharged on this dose for short-term. Her hospitalization was complex and she finally stabilized on 06/06/2025 he was able to be discharged home in stable condition with new medications. New prescriptions for iron, hydralazine with increased dose, isosorbide dinitrate, Protonix, bicarb, and Carafate were sent to her local pharmacy at the time of discharge she has follow-up on Saturday, I have asked her to call Dr. Valdovinos's office to schedule outpatient GI follow-up to be seen within the next month. Advised her follow-up with her primary care physician within the next week if possible. Patient was discharged home in stable condition with prescriptions sent to her local pharmacy prior to discharge on 06/06/2025. 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 ANTONINO secondary to ATN Metabolic acidosis secondary to ANTONINO Acute onset bilateral lower extremity paresthesias and weakness-resolved Uncontrolled hypertension Acute on chronic anemia Peptic ulcer disease Small bowel bleeding AVMs Troponin elevation secondary to demand ischemia from GI bleed Generalized weakness Left upper extremity superficial thrombophlebitis History of tobacco abuse Physical Exam Narrative Low Const alert, oriented x3, no apparent distress, average body habitus and well nourished; Negative for healthy appearing Constitutional Narrative: Older, white female, sitting up in bed, appears comfortable well, nontoxic, very pleasant, interacts appropriately General Appearance: cooperative, comfortable, well kempt and well developed Exam Limitations: no limitations HEENT normocephalic, head/scalp atraumatic, hearing grossly normal bilaterally and moist oral mucous membranes HEENT Narrative: Mallampati 2, no thrush Eyes Negative for conjunctivae normal Eyes Narrative: no scleral icterus, B Conjunctival pallor Neck supple Neck Narrative: trachea midline Resp normal respiratory effort, no retractions, no use of accessory muscles and clear to auscultation bilaterally Resp Narrative: Slightly diminished diffusely but clear Auscultation: Negative for rales, rhonchi or wheezes Cardio regular rate, regular rhythm, S1 normal heart sound, S2 normal heart sound, no murmurs, no rub, no gallops and no clicks GI normal to inspection, nondistended, normoactive bowel sounds, soft to palpation and non-tender Extremity Extremity Narrative: Patient with bilateral clubbing on hands and nailbeds are white, no cyanosis or edema noted, 1+ pedal pulses, 2+ radial pulses Skin no jaundice, no petechiae and no mottling Skin Narrative: pale Neuro moves all extremities and no focal motor deficits Speech: speech normal Psych affect normal Psych Narrative: Eye contact is good, patient interacts appropriately, very pleasant Weight / BMI Weight Weight: 62.6 kg Body Mass Index (BMI) 24.4 ABG / Lab / Microbiology Data 06/06/25 05:51 06/06/25 05:51 Laboratory: Laboratory Results - last 24 hr 06/05/25 14:25: Sodium 121 L, Potassium 3.8, Chloride 93 L, Carbon Dioxide 15.8 L, Anion Gap 13, BUN 49 H, Creatinine 2.08 H, Estim Creat Clear Calc 18.44 L, Est GFR (MDRD) Non-Af 24 L, BUN/Creatinine Ratio 23.4 H, Glucose 147 H, Calcium 8.6 06/06/25 05:51: WBC 7.3, RBC 3.39 L, Hgb 10.2 L, Hct 28.9 L, MCV 85.3, MCH 30.1, MCHC 35.3, RDW Std Deviation 45.4 H, RDW Coeff of Cathleen 14.6, Plt Count 188, MPV 10.1, Sodium 124 L, Potassium 3.9, Chloride 94 L, Carbon Dioxide 17.4 L, Anion Gap 12, BUN 48 H, Creatinine 2.16 H, Estim Creat Clear Calc 17.76 L, Est GFR (MDRD) Non-Af 23 L, BUN/Creatinine Ratio 22.2 H, Glucose 88, Calcium 8.5 D/C Instructions Discharge Activity: Return to Normal Activity DC O2, CPAP, BIPAP Needs Home O2 Discharge instructions: No DC home with Oxygen: No Meaningful Use Info Meaningful Use Meaningful Use Diagnoses (Choose all that apply): None applicable Discharge Plan Admission Admit Date/Time: 05/29/25 16:23 Primary Reason for Your Visit: Weakness/lightheadedness Attending Provider: Tiffanie Govea Primary Care Provider: Loyd Luque Consulting Providers: Conchita Burns; Loyd Wetzel; Nora Govea; Porfirio Mei Instructions Additional Instructions / Restrictions: Please be sure to follow-up with Dr. Govea from nephrology as instructed. She will be ordering outpatient labs to be done this week to recheck your kidney function and and your sodium level Discharge Orders/Prescriptions Prescriptions: New hydralazine 50 mg Tablet 100 mg PO TID Qty: 90 0RF isosorbide dinitrate 20 mg Tablet 40 mg PO TID Qty: 90 0RF pantoprazole 40 mg Tablet,Delayed Release (Dr/Ec) 40 mg PO BID Qty: 60 2RF sodium bicarbonate 650 mg Tablet 650 mg PO BID Qty: 60 0RF sucralfate 1 gram Tablet 1 g PO 1HR_ACHS Qty: 120 1RF ferrous sulfate [FeroSul] 325 mg (65 mg iron) Tablet 325 mg PO 1200,1700 Qty: 60 0RF Rx Instructions: Take with orange juice Continued metoprolol succinate 50 mg tablet extended release 24 hr 50 mg PO BID amlodipine 10 mg Tablet 10 mg PO DAILY Discontinued chlorthalidone 25 mg tablet 25 mg PO QDAY lisinopril 30 mg tablet 30 mg PO BID hydralazine 25 mg tablet 25 mg PO BID Referrals / Follow Up: Nora Govea DO [Med Staff - Consulting] - 06/09/25 9:30 am Loyd Luque MD [Primary Care Provider] - Within 1 Week FriendJuan Manuel DO [Med Staff - Active Staff] - Within 1 Month (Please call his office Saturday and set up an appointment to be seen within the next month for hospital follow-up) Disposition Disposition (needs filled in before D/C Order can be placed): Home, Self Care Charges/Coding Visit Charges Inpatient E&M: 81486 Disch Hosp >30min
[2025-06-06 10:14] VITALS: BP 150/45; PULSE 58; RESP 12; TEMP 36.7; O2SAT 96
[2025-06-06 13:59] VITALS: BP 169/40; PULSE 61
== END 2025-06-06 14:26 | disposition home or self-care (01) | DRG 643 ==
LOC: ED 13:19 → ICU 16:27 → PCU 05-31 12:27
PROVIDERS: Internal Medicine Gastroenterology; Internal Medicine Nephrology; Admitting Provider Internal Medicine; Emergency Provider Emergency Medicine; PCP Family Medicine; Visit Provider Internal Medicine
PROC: 0DJ08ZZ Inspection of Upper Intestinal Tract, Via Natural or Artificial Opening Endoscopic (ICD-10-PCS; CPT 43235; principal; 2025-06-01 14:55)
DX: E22.2 Syndrome of inappropriate secretion of antidiuretic hormone (principal); N17.0 Acute kidney failure with tubular necrosis; I24.89 Other forms of acute ischemic heart disease; E87.20 Acidosis, unspecified; D62 Acute posthemorrhagic anemia; I27.20 Pulmonary hypertension, unspecified; I10 Essential (primary) hypertension; I70.1 Atherosclerosis of renal artery; I34.0 Nonrheumatic mitral (valve) insufficiency; K26.9 Duodenal ulcer, unspecified as acute or chronic, without hemorrhage or perforation; K31.819 Angiodysplasia of stomach and duodenum without bleeding; E83.42 Hypomagnesemia; E87.6 Hypokalemia; I80.8 Phlebitis and thrombophlebitis of other sites; F17.200 Nicotine dependence, unspecified, uncomplicated; K20.90 Esophagitis, unspecified without bleeding; K25.9 Gastric ulcer, unspecified as acute or chronic, without hemorrhage or perforation; Z79.899 Other long term (current) drug therapy
CPT/HCPCS: 36415; 70450; 71045; 71250; 72148; 80048; 80053; 80061; 80076; 81001; 82436; 82533; 82570; 82728; 82962; 83540; 83550; 83735; 83880; 83930; 83935; 84100; 84133; 84295; 84300; 84443; 84484; 84540; 85018; 85025; 85027; 85045; 86850; 86900; 86901; 88305; 93005; 93306; 93975; 97110; 97116; 97161; 97165; 97530; 97802; 97803; 99285; C1889; P9016; A4216

== ENCOUNTER → 2025-06-08 | Outpatient (CLI) | payer MEDICARE, OTHER, SELFPAY ==
[2025-06-08 12:42] LABS: Anion Gap 13 (5-15); BUN 32 mg/dL (4-19); BUN/Creat Ratio 23.7 RATIO (10-20); Calcium,Total 9.2 mg/dL (7.6-11.0); Carbon Dioxide 20.5 mmol/L (21.0-32.0); Chloride 93 mmol/L (98-108); Glucose 105 mg/dL (70-99); Potassium 4.4 mmol/L (3.3-5.1)
--- OUTSIDE RECORDS SUMMARY | 2025-06-08 18:46 | XMS RPT_ITS | CCD ---
Author Organization [facility] Care Team Providers Care Developmental Writing Instructor Name Role Phone Meena DISABILITY AIDE.AGILE PROJECT MANAGER, DNP, [place] Primary Care Provider Glenny Luque MD Primary Care Provider Glenny Luque MD Primary Care Provider Glenny Luque MD Primary Care Provider Tejal DISABILITY AIDE.Laurel JORDAN Unavailable Mahendra DISABILITY AIDE.Hans JORDAN Unavailable Tannritesh DISABILITY AIDE.Laurel JORDAN Unavailable GLENNY LUQUE Primary Care Unavailable GLENNY LUQUE Primary Care Unavailable GLENNY LUQUE Referring Unavailable ENE, GLENNY Muñoz Primary Care Unavailable GLENNY LUQUE Attending Unavailable GLENNY LUQUE Referring Unavailable GLENNY LUQUE Referring Unavailable ENE, GLENNY Muñoz Primary Care Unavailable GLENNY LUQUE Primary Care Unavailable GLENNY LUQUE Primary Care Unavailable GLENNY LUQUE Referring Unavailable GLENNY LUQUE Primary Care Unavailable NORA GOVEA Referring Unavailable GLENNY LUQUE Primary Care Unavailable GLENNY LUQUE Attending Unavailable Dr. Glenny Luque MD Primary Care Provider Dr. Del Leyva DO Emergency Provider Grant RUELAS, Dr. Arango Admit Provider Dr. Conchita Burns MD Attending Provider Dr. Conchita Burns MD Other Provider Dr. Tiffanie Govea DO Attending Provider Dr. Glenny Wetzel DO Other Provider 1([facility])[phone] Jeferson GILLESPIE, Dr. Melendez Other Provider 1([facility])[phone] Hamida RUELAS, Dr. Monroy Other Provider 1([facility])[phone] Glenny Wetzel DO Attending Provider 1([facility] )[phone] Chepe RUELAS, Dr. Klein Other Provider Jeferson GILLESPIE, Dr. Moreno Other Provider 1([facility])[phone] Az RUELAS, Dr. Mcmahon Attending Provider 1([facility])[phone] Dr. Juan Manuel Valdovinos DO Attending Provider Hamida RUELAS, Dr. Monroy Attending Provider 1([facility])[phone] Ordonez, Carissa Consulting Unavailable Hamida, Porfirio Referring Unavailable Hamida, Porfirio Attending Unavailable Elderbrock, Glenny Primary Care Unavailable Burns, Conchita Admitting Unavailable Tiffanie Govea Attending Unavailable Elderbrock, Glenny Primary Care Unavailable Burns, Conchita Consulting Unavailable Tereletsky, Glenny Consulting Unavailable Jeferson, Nora Consulting Unavailable Hamida, Porfirio Consulting Unavailable Elderbrock, Glenny Primary Care Unavailable Burns, Conchita Admitting Unavailable Burns, Conchita Consulting Unavailable Jeferson, Tiffanie Attending Unavailable Tereletsky, Glenny Consulting Unavailable Jeferson, Nora Consulting Unavailable Gilliam, Porfirio Consulting Unavailable Jeferson, Tiffanie Consulting Unavailable Burns, Conchita Attending Unavailable Tereletsky, Glenny Attending Unavailable [place], Natthavat Consulting Unavaila ble Juan Manuel Valdovinos Attending Unavailable Lisandro Bernardo Attending Unavailable Elderbrock, Glenny Primary Care Unavailable Gilliam, Porfirio Referring Unavailable Hamida, Porfirio Attending Unavailable Elderbrock, Glenny Primary Care Unavailable Ordonez, Carissa Consulting Unavailable Hamida, Porfirio Consulting Unavailable Hamida, Porfirio Attending Unavailable Elderbrock, Glenny Referring Unavailable Hamida, Porfirio Attending Unavailable Elderbrock, Glenny Primary Care Unavailable Elderbrock, Glenny Referring Unavailable Ordonez, Carissa Attending Unavailable Elderbrock, Glenny Primary Care Unavailable Allergies Allergy Classification Reported Allergen(s) Allergy Type Date of Onset Reaction(s) Facility (20 sources) Codeine; Translations: [CODEINE] Drug Allergy 5 PT UNSURE OF REACTION [facility] Work Phone: (20 sources) Spironolactone; Translations: [SPIRONOLACTONE] Drug Allergy 9 Other: See Comments [facility] (20 sources) Sulfonamides (Antibiotic); Translations: [SULFA (SULFONAMIDE ANTIBIOTICS)] Propensity to adverse reactions 5 [facility] Work Phone: (2 sources) Sulfonamides (Antibiotic) Allergy to substance 5 Rash [facility] (1 source) Codeine Drug Allergy 5 [facility] (1 source) Sulfonamides (Antibiotic) Drug allergy (disorder) 5 [facility] Medications Current Medications Medication Drug Class(es) Dates Sig (Normalized) Sig (Original) alendronic acid 70 mg oral tablet (7 sources) Bisphosphonate Start: 01-04-2025 take 1 tablet [...] (20 sources) Thiazide-like Diuretic Start: 02-17-2024 End: 06-06-2025 take 1 tablet by mouth once daily chlorthalidone (HYGROTON) 25 mg tablet Indications: Essential hypertension, benign Take 1 tablet by mouth once daily. 90 tablet 3 01/04/2025 Active Comment on above: Take 1 tablet by lori th once daily. ferrous sulfate 325 mg oral tablet (1 source) Start: 06-06-2025 Ferrous Sulfate (Ferosul) 325 mg (65 mg iron) Tablet Active 325 mg PO 1200,1700 60 0 June 06, 2025 12:00am Take with orange juice hydrALAZINE hydrochloride 50 mg oral tablet (20 sources) Arteriolar Vasodilator Start: 06-06-2025 take 2 tablets by mouth three times daily Hydralazine 50 mg Tablet Active 100 mg PO THREE TIMES A DAY 90 0 June 06, 2025 12:00am Start: 03-22-2025 hydrALAZINE (A PRESOLINE) 25 mg tablet Indications: Uncontrolled hypertension Take [...] day. 11/26/2024 03/22/2025 Discontinued Start: 03-20-2024 End: 06-06-2025 take 1 tablet by mouth twice daily Hydralazine 25 mg tablet Discontinued 25 mg PO TWICE A DAY October 06, 2024 1:00am June 06, 2025 12:17pm high blood pressure Start: 05-08-2023 End: 03-20-2024 take 1 tablet [...] by lori th two times a day. isosorbide dinitrate 20 mg oral tablet (1 source) Nitrate Vasodilator Start: 06-06-2025 Isosorbide Dinitrate 20 mg Tablet Active 40 mg PO THREE TIMES A DAY 90 0 June 06, 2025 12:00am lisinopril 30 mg oral tablet (20 sources) Angiotensin Converting Enzyme Inhibitor Start: 08-27-2024 End: 10-06-2024 Lisinopril 40 mg tablet Discontinued 40 mg PO DAILY August 27, 2024 1:18pm October 06, 2024 1:30pm 30 mg bid Start: 02-17-2024 End: 06-06-2025 take 1 tablet by mouth twice daily lisinopril (ZESTRIL) 30 mg tablet Indications: Essential hypertension, benign Take 1 tablet by mouth two times a day. 180 tablet 3 01/04/2025 Active Start: 03-21-2023 End: 08-27-2024 take 2 tablets by mouth once daily Lisinopril 40 mg tablet Discontinued 80 mg PO DAILY 30 0 March 21, 2023 12:00am August 27, 2024 1:25pm Start: 05-23-2022 End: 08-27-2024 take 1 tablet by mouth once daily Lisinopril 40 mg Tablet Discontinued 40 mg PO DAILY March 21, 2023 12:00am August 27, 2024 1:22pm Comment on above: TAKE 1 TABLET BY LORI ONCE DAILY Take 1 tablet by lori once daily. Take 1 tablet by lori two times a day. 24 hr metoprolol succinate 50 mg extended release oral tablet (20 sources) beta-Adrenergic Benita Start: 05-08-2023 End: 03-09-2024 take 1 tablet by mouth twice daily Metoprolol Succinate 50 mg tablet extended release 24 hr Active 50 mg PO TWICE A DAY August 27, 2024 12:00am Start: 04-08-2023 End: 05-08-2023 take 1 tablet [...] on above: Take 1 tablet by lori twice daily. Take 1 tablet by lori once daily. take 1 tablet by lori th twice a day bm-max-lgtte-calcium carb-K1 (WOMEN'S 50 PLUS MULTIVITAMIN) 400 mcg-500 mg calcium-20 mcg tab (9 sources) Start: 5 take 1 tablet by mouth once daily kz-oxh-mccxb-calcium carb-K1 (WOMEN'S 50 PLUS MULTIVITAMIN) 400 mcg-500 mg calcium-20 mcg tab Take 1 tablet by mouth once daily. 11/26/2024 Active pantoprazole 40 mg delayed release oral tablet (1 source) Proton Pump Inhibitor Start: 5 take 1 tablet by mouth twice daily Pantoprazole 40 mg Tablet,Delayed Release (Dr/Ec) Active 40 mg PO TWICE A DAY 60 June 06, 2025 12:00am sodium bicarbonate 650 mg oral tablet (1 source) Start: take 1 tablet by mouth twice daily Sodium Bicarbonate 650 mg Tablet Active 650 mg PO TWICE A DAY 60 June 06, 2025 12:00am sucralfate 1000 mg oral tablet (1 source) Aluminum Complex Start: take 1 tablet by mouth 1 hour(s) before mealtime Sucralfate 1 gram Tablet Active 1 g PO ONE HOURS BEFORE MEALS & BED 120 June 06, 2025 12:00am Completed/Discontinued Medications Medication Drug Class(es) Dates Sig (Normalized) Sig (Original) ascorbic acid 1000 mg oral tablet (19 sources) Vitamin C Start: 01-16-2007 End: 02-17-2024 VITAMIN C 1,000 MG TAB Take one(1) tablet daily. 0 01/16/2007 02/17/2024 Discontinued (Course of therapy completed) Comment on above: Take one(1) tablet d aily. calcium carbonate 1500 mg oral tablet (2 sources) Start: 08-27-2024 End: 05-29-2025 Calcium Carbonate (Calcium 600) 600 mg calcium (1,500 mg) tablet Discontinued 1200 mg PO daily August 27, 2024 12:00am May 29, 2025 2:10pm with [place] D doxycycline hyclate 100 mg oral tablet (2 sources) Tetracycline-cla ss Drug Start: 10-21-2024 End: 10-26-2024 take 1 tablet by mouth twice daily Doxycycline Hyclate 100 mg tablet Discontinued 100 mg PO TWICE A DAY 10 5 0 October 21, 2024 1:00am October 25, 2024 1:00am October 26, 2024 1:10am FISH OIL CAP (19 sources) Start: 01-16-2007 End: 02-17-2024 FISH OIL CAP Take one(1) capsule daily. omega 3 0 01/16/2007 02/17/2024 Discontinued (Course of therapy completed) Start: 01-16-2007 FISH OIL CAP T jeanine one(1) capsule daily. omega 3 0 01/16/2007 Active Comment on above: Take one(1) capsule daily. omega 3 hydroCHLOROthiazide 12.5 mg oral capsule (20 sources) Thiazide Diuretic Start: 2023 End: 2023 take 2 capsules by mouth once daily Hydrochlorothiazide 12.5 mg capsule Discontinued 25 mg PO DAILY August 27, 2024 1:16pm October 07, 2024 8:32am Start: 05-23-2022 End: 08-27-2024 take 1 capsule by mouth once daily Hydrochlorothiazide 12.5 mg Capsule Discontinued 12.5 mg PO DAILY March 21, 2023 12:00am August 27, 2024 1:22pm Comment on above: TAKE 1 CAPSULE BY MO UTH ONCE DAILY Take 1 capsule by mo uth once daily. Multivitamin (Daily Multi-Vitamin) tablet (2 sources) Start: 08-27-2024 End: 05-29-2025 Multivitamin (Daily Multi-Vitamin) tablet Discontinued 1 {tbl} PO EVERY MORNING August 27, 2024 12:00am May 29, 2025 2:11pm potassium nitrate 250 mg/ml / silver nitrate 750 mg/ml medicated pad (2 sources) Start: 07-24-2024 End: 07-24-2024 silver nitrate applicators 1 Applicator stick Start: [...] Active Problems Problem Classification Problem Date Documented Da te Episodic/Chronic Acute and unspecified renal failure (4 sources) Acute renal failure syndrome; Translations: [Acute kidney failure, unspecified] Onset: 5 06-03-2025 Episodic Deficiency and other anemia (3 sources) Anemia; Translations: [Anemia, unspecified] 06-01-2025 Episodic Deficiency and other anemia (2 sources) Anemia, unspecified; Translations: [Anemia, unspecified] Onset: Episodic Disorders of lipid metabolism (20 sources) Hyperlipidemia; Translations: [Hyperlipidemia, unspecified] Onset: 3 03-16-2016 Chronic Essential hypertension (20 sources) Benign essential hypertension; Translations: [Essential (primary) hypertension] Onset: 5 08-01-2018 Chronic Fluid and electrolyte disorders (20 sources) Hypokalemia; Translations: [Hypokalemia] Onset: 4 Resolved: 7 04-10-2017 Episodic Gastrointestinal hemorrhage (4 sources) Gastrointestinal hemorrhage; Translations: [Gastrointestinal hemorrhage, unspecified] Onset: 5 06-01-2025 Episodic Osteoporosis (20 sources) Osteoporosis; Translations: [Age-related osteoporosis without current pathological fracture] Onset: 7 04-10-2017 Chronic Other circulatory disease (2 sources) Low blood pressure; Translations: [Hypotension, unspecified] 06-03-2025 Episodic Other circulatory disease (2 sources) Hypotension, unspecified; Translations: [Hypotension, unspecified] Onset: Episodic Other connective tissue disease (1 source) Peripheral muscle fatigue; Translations: [Other symptoms and signs involving the musculoskeletal system] 11-26-2024 Episodic Other connective tissue disease (2 sources) Muscle weakness of limb; Translations: [Other symptoms and signs involving the musculoskeletal system] 06-02-2025 Episodic Other connective tissue disease (2 sources) Other symptoms and signs involving the musculoskeletal system; Translations: [Other symptoms and signs involving the musculoskeletal system] Onset: Episodic Other injuries and conditions due to external causes (1 source) Open wound; Translations: [Other injury of unspecified body region, initial encounter] 07-24-2024 Episodic Other nervous system disorders (2 sources) Paresthesia of lower extremity; Translations: [Paresthesia of skin] 06-02-2025 Episodic Other nervous system disorders (2 sources) Paresthesia of skin; Translations: [Paresthesia of skin] Onset: 5 Episodic Other nutritional; endocrine; and metabolic disorders (2 sources) Hypomagnesemia; Translations: [Hypomagnesemia] 05-30-2025 Chronic Other nutritional; endocrine; and metabolic disorders (2 sources) Hypomagnesemia; Translations: [Hypomagnesemia] Onset: 5 Chronic Other screening for suspected conditions (not mental disorders or infectious disease) (5 sources) Patient encounter status; Translations: [Encounter for screening mammogram for malignant neoplasm of breast] Episodic Peripheral and visceral atherosclerosis (7 sources) Intermittent claudication; Translations: [Peripheral vascular disease, unspecified] Onset: 5 11-26-2024 Chronic Substance-related disorders (2 sources) Tobacco user; Translations: [Nicotine dependence, unspecified, uncomplicated] 11-26-2024 Chronic Unclassified (1 source) Resistant hypertension; Translations: [Resistant hypertension] Onset: 5 Unclassified (1 source) Please call his office Saturday and set up an appointment to be seen within the next month for hospital follow-up Past or Other Problems Problem Classification Problem [...] Results Test Name Value Interpretation Reference Range Facility Anion gap in Serum or Plasma Ordered By: Tiffanie Govea on 06-06-2025 Anion gap [Moles/Vol] 12 mmol/L 03-18 [facility] BUN/creatinine ratioOrdered By: Tiffanie Govea on 06-06-2025 Urea nitrogen/Creatinine [Mass ratio] 22.2 mg/mg High 08-23 [facility] Basic Metabolic Profile (BMP )on 06-06-2025 BUN/CRE 22.2 RATIO High 10-20 [facility] Comment on above: Performed By: #### L 100.0500, L500.2500 #### [facility] [address] [place], [address] Calcium [Mass/Vol] 8.5 mg/dL Normal 7.6-11.0 [facility] Comment on above: Performed By: #### L 100.0500, L500.2500 #### [facility] [address] [place], [address] Chloride [Moles/Vol] 94 mmol/L Low 98-108 [facility] Comment on above: Performed By: #### L 100.0500, L500.2500 #### [facility] [address] [place], [address] CO2 [Moles/Vol] 17.4 mmol/L Low 21.0-32.0 [facility] Comment on above: Performed By: #### L 100.0500, [id number] #### [facility] [address] [place], [address] Creatinine [Mass/Vol] 2.16 mg/dL High 0.70-1.20 [facility] Comment on above: Performed By: #### L 100.0500, L500.2500 #### [facility] [address] [place], [address] ECRCL 17.76 ml/min Low 50-250 [facility] Comment on above: Performed By: #### L 100.0500, L500.2500 #### [facility] [address] [place], [address] GAP 12 Normal 5-15 [facility] Comment on above: Performed By: #### L 100.0500, L500.2500 #### [facility] [address] [place], [address] GFR/1.73 sq M.predicted among non-blacks MDRD (S/P/Bld) [Vol rate/Area] 23 mL/min/{1.73_m2} Low >60 [facility] Comment on above: Result Comment: mL/m in/1.73m2 CKD-EPI Creatinine Equation (2020) Performed By: #### L 100.0500, L500.2500 #### [facility] [address] [place], [address] Glucose [Mass/Vol] 88 mg/dL Normal 70-99 [facility] Comment on above: Performed By: #### L 100.0500, L500.2500 #### [facility] [address] [place], [address] Potassium [Moles/Vol] 3.9 mmol/L Normal 3.3-5.1 [facility] Comment on above: Performed By: #### L 100.0500, L500.2500 #### [facility] [address] [place], [address] Sodium [Moles/Vol] 124 mmol/L Low 133-145 [facility] Comment on above: Performed By: #### L 100.0500, L500.2500 #### [facility] [address] [place], [address] Urea nitrogen [Mass/Vol] 48 mg/dL High 4-19 [facility] Comment on above: Performed By: #### L 100.0500, L500.2500 #### [facility] [address] [place], [address] CBC-Complete Blood Cnt No Di ffon 06-06-2025 Erythrocyte distribution width (RBC) [Ratio] 14.6 % Normal 11.6-14.6 [facility] Comment on above: Performed By: #### L 100.0500, L500.2500 #### [facility] [address] [place], [address] Hematocrit (Bld) [Volume fraction] 28.9 % Low 37-47 [facility] Comment on above: Performed By: #### L 100.0500, L500.2500 #### [facility] [address] [place], [address] Hemoglobin (Bld) [Mass/Vol] 10.2 g/dL Low 12.0-15.0 [facility] Comment on above: Performed By: #### L 100.0500, L500.2500 #### [facility] [address] [place], [address] MCH (RBC) [Entitic mass] 30.1 pg Normal 27.0-32.0 [facility] Comment on above: Performed By: #### L 100.0500, L500.2500 #### [facility] [address] [place], [address] MCHC (RBC) [Mass/Vol] 35.3 g/dL Normal 32-36 [facility] Comment on above: Performed By: #### L 100.0500, L500.2500 #### [facility] [address] [place], [address] MCV (RBC) [Entitic vol] 85.3 fL Normal 81-99 [facility] Comment on above: Performed By: #### L 100.0500, L500.2500 #### [facility] [address] [place], [address] Platelet mean volume (Bld) [Entitic vol] 10.1 fL Normal 6.2-12.0 [facility] Comment on above: Performed By: #### L 100.0500, L500.2500 #### [facility] [address] [place], [address] Platelets (Bld) [#/Vol] 188 10*3/uL Normal 150-450 [facility] Comment on above: Performed By: #### L 100.0500, L500.2500 #### [facility] [address] [place], [address] RBC (Bld) [#/Vol] 3.39 10*6/uL Low 4.2-5.4 [facility] Comment on above: Performed By: #### L 100.0500, L500.2500 #### [facility] [address] [place], [address] RDW SD 45.4 fl High 35.1-43.9 [facility] Comment on above: Performed By: #### L 100.0500, L500.2500 #### [facility] [address] [place], [address] WBC (Bld) [#/Vol] 7.3 10*3/uL Normal 4.4-11.0 [facility] Comment on above: Performed By: #### L 100.0500, L500.2500 #### [facility] [address] [place], [address] Carbon dioxide, total [Moles /volume] in Central venous bloodOrdered By: Tiffanie Govea on 06-06-2025 CO2 [Moles/Vol] 17.4 mmol/L Low 21.0-32.0 [facility] Chloride assayOrdered By: Elliott Govea on 06-06-2025 Chloride [Moles/Vol] 94 mmol/L Low 98-108 [facility] Erythrocyte distribution wid th ratioOrdered By: Tiffanie Govea on 06-06-2025 Erythrocyte distribution width (RBC) [Ratio] 14.6 % 11.6-14.6 [facility] Erythrocyte distribution wid th standard deviationOrdered By: Tiffanie Govea on 06-06-2025 Erythrocyte distribution width (RBC) [Ratio] 45.4 fl High 35.1-43.9 [facility] Glomerular filtration rate ( GFR) estimation/1.73 sq m using serum, plasma, or whole bOrdered By: Tiffanie Govea on 06-06-2025 GFR/1.73 sq M.predicted among non-blacks MDRD (S/P/Bld) [Vol rate/Area] 23 mL/min/{1.73_m2} Low >60 [facility] Comment on above: mL/min/1.73m2 CKD-EP I Creatinine Equation (2020) Hematocrit Auto (Bld) [Volum e fraction]Ordered By: Tiffanie Govea on 06-06-2025 Hematocrit (Bld) [Volume fraction] 28.9 % Low 37-47 [facility] Hemoglobin measurementOrdere d By: Tiffanie Govea on 06-06-2025 Hemoglobin (Bld) [Mass/Vol] 10.2 g/dL Low 12.0-15.0 [facility] MCV (mean corpuscular volume ) determinationOrdered By: Tiffanie Govea on 06-06-2025 MCV (RBC) [Entitic vol] 85.3 fL 81-99 [facility] Mean corpuscular hemoglobin (MCH) determinationOrdered By: Tiffanie Govea on 06-06-2025 MCH (RBC) [Entitic mass] 30.1 pg 27.0-32.0 [facility] Mean corpuscular hemoglobin concentration (MCHC) determinationOrdered By: Tiffanie Govea on 06-06-2025 MCHC (RBC) [Mass/Vol] 35.3 g/dL 32-36 [facility] Mean platelet volume determi nationOrdered By: Tiffanie Govea on 06-06-2025 Platelet mean volume (Bld) [Entitic vol] 10.1 fL 6.2-12.0 [facility] Platelet countOrdered By: Elliott Govea on 06-06-2025 Platelets (Bld) [#/Vol] 188 10*3/uL 150-450 [facility] Potassium measurement (mass/ volume)Ordered By: Tiffanie Govea on 06-06-2025 Potassium (Unsp spec) [Mass/Vol] 3.9 mmol/L 3.3-5.1 [facility] RBC Auto (Bld) [#/Vol]Ordere d By: Tiffanie Govea on 06-06-2025 RBC (Bld) [#/Vol] 3.39 10*6/uL Low 4.2-5.4 [facility] Serum creatinine measurement (mass/volume)Ordered By: Tiffanie Govea on 06-06-2025 Creatinine [Mass/Vol] 2.16 mg/dL High 0.70-1.20 [facility] Serum glucose measurement (m ass/volume)Ordered By: Tiffanie Govea on 06-06-2025 Glucose [Mass/Vol] 88 mg/dL 70-99 [facility] Serum or plasma calcium tisha urement (mass/volume)Ordered By: Tiffanie Govea on 06-06-2025 Calcium [Mass/Vol] 8.5 mg/dL 7.6-11.0 [facility] Serum or plasma urea nitroge n measurement (mass/volume)Ordered By: Tiffanie Govea on 06-06-2025 Urea nitrogen [Mass/Vol] 48 mg/dL High 4-19 [facility] Sodium levelOrdered By: Ros Govea on 06-06-2025 Sodium [Moles/Vol] 124 mmol/L Low 133-145 [facility] White blood cell (WBC) count Ordered By: Tiffanie Govea on 06-06-2025 WBC (Bld) [#/Vol] 7.3 10*3/uL 4.4-11.0 [facility] Absolute lymphocyte countOrd ered By: Tiffanie Govea on 06-05-2025 Lymphocytes Auto (Unsp spec) [#/Vol] 0.90 10*3/uL 0.83-4.51 [facility] Absolute neutrophil countOrd ered By: Tiffanie Govea on 06-05-2025 Neutrophils (Bld) [#/Vol] 7.4 10*3/uL 2.0-7.7 [facility] Automated lymphocyte count a s percentage of total leukocytesOrdered By: Tiffanie Govea on 06-05-2025 Lymphocytes/100 WBC Auto (Unsp spec) 9.5 % Low 19-41 [facility] Basic Metabolic Profile (BMP )on 06-05-2025 BUN/CRE 23.4 RATIO High 10-20 [facility] Comment on above: Performed By: #### L 501.4021, L100.0500, L503.7505, L500.4050 #### [facility] [address] [place], [address] Calcium [Mass/Vol] 8.6 mg/dL Normal 7.6-11.0 [facility] Comment on above: Performed By: #### L 501.4021, L100.0500, L503.7505, L500.4050 #### [facility] [address] [place], [address] Chloride [Moles/Vol] 93 mmol/L Low 98-108 [facility] Comment on above: Performed By: #### L 501.4021, L100.0500, L503.7505, L500.4050 #### [facility] [address] [place], [address] CO2 [Moles/Vol] 15.8 mmol/L Low 21.0-32.0 [facility] Comment on above: Performed By: #### L 501.4021, L100.0500, L503.7505, L500.4050 #### [facility] [address] [place], [address] Creatinine [Mass/Vol] 2.08 mg/dL High 0.70-1.20 [facility] Comment on above: Performed By: #### L 501.4021, L100.0500, L503.7505, L500.4050 #### [facility] [address] [place], [address] ECRCL 18.44 ml/min Low 50-250 [facility] Comment on above: Performed By: #### L 501.4021, L100.0500, L503.7505, L500.4050 #### [facility] [address] [place], [address] GAP 13 Normal 5-15 [facility] Comment on above: Performed By: #### L 501.4021, L100.0500, L503.7505, L500.4050 #### [facility] [address] [place], [address] GFR/1.73 sq M.predicted among non-blacks MDRD (S/P/Bld) [Vol rate/Area] 24 mL/min/{1.73_m2} Low >60 [facility] Comment on above: Result Comment: mL/m in/1.73m2 CKD-EPI Creatinine Equation (2020) Performed By: #### L 501.4021, L100.0500, L503.7505, L500.4050 #### [facility] [address] [place], [address] Glucose [Mass/Vol] 147 mg/dL High 70-99 [facility] Comment on above: Performed By: #### L 501.4021, L100.0500, L503.7505, L500.4050 #### [facility] [address] [place], [address] Potassium [Moles/Vol] 3.8 mmol/L Normal 3.3-5.1 [facility] Comment on above: Performed By: #### L 501.4021, L100.0500, L503.7505, L500.4050 #### [facility] [address] [place], [address] Sodium [Moles/Vol] 121 mmol/L Low 133-145 [facility] Comment on above: Performed By: #### L 501.4021, L100.0500, L503.7505, L500.4050 #### [facility] [address] [place], [address] Urea nitrogen [Mass/Vol] 49 mg/dL High 4-19 [facility] Comment on above: Performed By: #### L 501.4021, L100.0500, L503.7505, L500.4050 #### [facility] [address] [place], [address] Basophil percentageOrdered B y: Tiffanie Jeferson on 06-05-2025 Basophils/100 WBC (Bld) 0.5 % 0-1 [facility] Bilirubin, totalOrdered By: Nora Jeferson on 06-05-2025 Bilirubin [Mass/Vol] 0.55 mg/dL 0.00-1.30 [facility] CBC W/Diff, Automatedon Absolute Lymph 0.90 X10 3/uL Normal 0.83-4.51 [facility] Comment on above: Performed By: #### L 501.4021, L100.0500, L503.7505, L500.4050 #### [facility] [address] [place], [address] Absolute Neut 7.4 X10 3/uL Normal 2.0-7.7 [facility] Comment on above: Performed By: #### L 501.4021, L100.0500, L503.7505, L500.4050 #### [facility] [address] [place], [address] Basophils/100 WBC (Bld) 0.5 % Normal 0-1 [facility] Comment on above: Performed By: #### L 501.4021, L100.0500, L503.7505, L500.4050 #### [facility] [address] [place], [address] Eosinophils/100 WBC (Bld) 2.6 % Normal 0-5 [facility] Comment on above: Performed By: #### L 501.4021, L100.0500, L503.7505, L500.4050 #### [facility] [address] [place], [address] Erythrocyte distribution width (RBC) [Ratio] 14.6 % Normal 11.6-14.6 [facility] Comment on above: Performed By: #### L 501.4021, L100.0500, L503.7505, L500.4050 #### [facility] [address] [place], [address] Hematocrit (Bld) [Volume fraction] 27.0 % Low 37-47 [facility] Comment on above: Performed By: #### L 501.4021, L100.0500, L503.7505, L500.4050 #### [facility] [address] [place], [address] Hemoglobin (Bld) [Mass/Vol] 9.5 g/dL Low 12.0-15.0 [facility] Comment on above: Performed By: #### L 501.4021, L100.0500, L503.7505, L500.4050 #### [facility] [address] [place], [address] IG% 0.600 Normal 0.0-0.9 [facility] Comment on above: Result Comment: IG% - Immature Granulocytes (promyelocytes, myelocytes and metamyelocytes) > 1% indicates that a LEFT SHIFT is Present. Performed By: #### L 501.4021, L100.0500, L503.7505, L500.4050 #### [facility] [address] [place], [address] Lymphocytes/100 WBC (Bld) 9.5 % Low 19-41 [facility] Comment on above: Performed By: #### L 501.4021, L100.0500, L503.7505, L500.4050 #### [facility] [address] [place], [address] MCH (RBC) [Entitic mass] 29.9 pg Normal 27.0-32.0 [facility] Comment on above: Performed By: #### L 501.4021, L100.0500, L503.7505, L500.4050 #### [facility] [address] [place], [address] MCHC (RBC) [Mass/Vol] 35.2 g/dL Normal 32-36 [facility] Comment on above: Performed By: #### L 501.4021, L100.0500, L503.7505, L500.4050 #### [facility] [address] [place], [address] MCV (RBC) [Entitic vol] 84.9 fL Normal 81-99 [facility] Comment on above: Performed By: #### L 501.4021, L100.0500, L503.7505, L500.4050 #### [facility] [address] [place], [address] Monocytes/100 WBC (Bld) 9.4 % Normal 0-10 [facility] Comment on above: Performed By: #### L 501.4021, L100.0500, L503.7505, L500.4050 #### [facility] [address] [place], [address] Neutrophils/100 WBC (Bld) 77.4 % High 47-70 [facility] Comment on above: Performed By: #### L 501.4021, L100.0500, L503.7505, L500.4050 #### [facility] [address] [place], [address] Nucleated RBC (Bld) [#/Vol] 0 10*3/uL Normal 0-5 [facility] Comment on above: Performed By: #### L 501.4021, L100.0500, L503.7505, L500.4050 #### [facility] [address] [place], [address] Platelet mean volume (Bld) [Entitic vol] 10.0 fL Normal 6.2-12.0 [facility] Comment on above: Performed By: #### L 501.4021, L100.0500, L503.7505, L500.4050 #### [facility] [address] [place], [address] Platelets (Bld) [#/Vol] 183 10*3/uL Normal 150-450 [facility] Comment on above: Performed By: #### L 501.4021, L100.0500, L503.7505, L500.4050 #### [facility] [address] [place], [address] RBC (Bld) [#/Vol] 3.18 10*6/uL Low 4.2-5.4 [facility] Comment on above: Performed By: #### L 501.4021, L100.0500, L503.7505, L500.4050 #### [facility] [address] [place], [address] RDW SD 45.0 fl High 35.1-43.9 [facility] Comment on above: Performed By: #### L 501.4021, L100.0500, L503.7505, L500.4050 #### [facility] [address] [place], [address] WBC (Bld) [#/Vol] 9.5 10*3/uL Normal 4.4-11.0 [facility] Comment on above: Performed By: #### L 501.4021, L100.0500, L503.7505, L500.4050 #### [facility] [address] [place], [address] Comprehensive Metabolic Prof ilon 06-05-2025 Albumin [Mass/Vol] 3.3 g/dL Low 3.4-4.8 [facility] Comment on above: Order Comment: OKAY TO COLLECT WITH AM LABS PER RN Performed By: #### L 500.2500 #### [facility] [address] [place], [address] Albumin/Globulin [Mass ratio] 1.7 {ratio} Normal 0.9-2.4 [facility] Comment on above: Order Comment: OKAY TO COLLECT WITH AM LABS PER RN Performed By: #### L 500.2500 #### [facility] [address] [place], [address] ALK PHOS 68 U/L Normal 35-104 [facility] Comment on above: Order Comment: OKAY TO COLLECT WITH AM LABS PER RN Performed By: #### L 500.2500 #### [facility] [address] [place], [address] ALT [Catalytic activity/Vol] 24 U/L Normal <=34 [facility] Comment on above: Order Comment: OKAY TO COLLECT WITH AM LABS PER RN Performed By: #### L 500.2500 #### [facility] [address] [place], [address] AST [Catalytic activity/Vol] 22 U/L Normal <=31 [facility] Comment on above: Order Comment: OKAY TO COLLECT WITH AM LABS PER RN Performed By: #### L 500.2500 #### [facility] [address] [place], [address] Bilirubin [Mass/Vol] 0.55 mg/dL Normal 0.00-1.30 [facility] Comment on above: Order Comment: OKAY TO COLLECT WITH AM LABS PER RN Performed By: #### L 500.2500 #### [facility] [address] [place], [address] BUN/CRE 21.4 RATIO High 10-20 [facility] Comment on above: Order Comment: OKAY TO COLLECT WITH AM LABS PER RN Performed By: #### L 500.2500 #### [facility] [address] [place], [address] Calcium [Mass/Vol] 8.4 mg/dL Normal 7.6-11.0 [facility] Comment on above: Order Comment: OKAY TO COLLECT WITH AM LABS PER RN Performed By: #### L 500.2500 #### [facility] [address] [place], [address] Chloride [Moles/Vol] 92 mmol/L Low 98-108 [facility] Comment on above: Order Comment: OKAY TO COLLECT WITH AM LABS PER RN Performed By: #### L 500.2500 #### [facility] [address] [place], [address] CO2 [Moles/Vol] 17.6 mmol/L Low 21.0-32.0 [facility] Comment on above: Order Comment: OKAY TO COLLECT WITH AM LABS PER RN Performed By: #### L 500.2500 #### [facility] [address] [place], [address] Creatinine [Mass/Vol] 2.36 mg/dL High 0.70-1.20 [facility] Comment on above: Order Comment: OKAY TO COLLECT WITH AM LABS PER RN Performed By: #### L 500.2500 #### [facility] [address] [place], [address] ECRCL 16.25 ml/min Low 50-250 [facility] Comment on above: Order Comment: OKAY TO COLLECT WITH AM LABS PER RN Performed By: #### L 500.2500 #### [facility] [address] [place], [address] GAP 11 Normal 5-15 [facility] Comment on above: Order Comment: OKAY TO COLLECT WITH AM LABS PER RN Performed By: #### L 500.2500 #### [facility] [address] [place], [address] GFR/1.73 sq M.predicted among non-blacks MDRD (S/P/Bld) [Vol rate/Area] 21 mL/min/{1.73_m2} Low >60 [facility] Comment on above: Order Comment: OKAY TO COLLECT WITH AM LABS PER RN Result Comment: mL/m in/1.73m2 CKD-EPI Creatinine Equation (2020) Performed By: #### L 500.2500 #### [facility] [address] [place], [address] Globulin (S) [Mass/Vol] 1.9 g/dL Low 2.2-4.2 [facility] Comment on above: Order Comment: OKAY TO COLLECT WITH AM LABS PER RN Performed By: #### L 500.2500 #### [facility] [address] [place], [address] Glucose [Mass/Vol] 94 mg/dL Normal 70-99 [facility] Comment on above: Order Comment: OKAY TO COLLECT WITH AM LABS PER RN Performed By: #### L 500.2500 #### [facility] [address] [place], [address] Potassium [Moles/Vol] 4.0 mmol/L Normal 3.3-5.1 [facility] Comment on above: Order Comment: OKAY TO COLLECT WITH AM LABS PER RN Performed By: #### L 500.2500 #### [facility] [address] [place], [address] Sodium [Moles/Vol] 120 mmol/L Low 133-145 [facility] Comment on above: Order Comment: OKAY TO COLLECT WITH AM LABS PER RN Performed By: #### L 500.2500 #### [facility] [address] [place], [address] T PROT 5.2 g/dL Low 5.9-8.4 [facility] Comment on above: Order Comment: OKAY TO COLLECT WITH AM LABS PER RN Performed By: #### L 500.2500 #### [facility] [address] [place], [address] Urea nitrogen [Mass/Vol] 51 mg/dL High 4-19 [facility] Comment on above: Order Comment: OKAY TO COLLECT WITH AM LABS PER RN Performed By: #### L 500.2500 #### [facility] [address] [place], [address] Eosinophil percentageOrdered By: Tiffanie Govea on 06-05-2025 Eosinophils/100 WBC (Bld) 2.6 % 0-5 [facility] Immature granulocytes/100 WB C Auto (Bld)Ordered By: Tiffanie Govea on 06-05-2025 Immature granulocytes/100 WBC (Bld) 0.600 % 0.0-0.9 [facility] Comment on above: IG% - Immature Granu locytes (promyelocytes, myelocytes and metamyelocytes) > 1% indicates that a LEFT SHIFT is Present. Laboratory - Chemistry and C hemistry - challengeOrdered By: Nora Govea on 06-05-2025 AST [Catalytic activity/Vol] 22 U/L <32 [facility] Monocyte percentageOrdered B y: Tiffanie Govea on 06-05-2025 Monocytes/100 WBC (Bld) 9.4 % 0-10 [facility] Neutrophil percentageOrdered By: Tiffanie Govea on 06-05-2025 Neutrophils/100 WBC (Bld) 77.4 % High 47-70 [facility] Nucleated red blood cell per centageOrdered By: Tiffanie Govea on 06-05-2025 Nucleated RBC/100 WBC (Bld) [Ratio] 0 % 0-5 [facility] Serum globulin measurementOr dered By: Nora Govea on 06-05-2025 Globulin (S) [Mass/Vol] 1.9 g/dL Low 2.2-4.2 [facility] Serum or plasma alanine de león otransferase (ALT) measurementOrdered By: Nora Govea on 06-05-2025 ALT [Catalytic activity/Vol] 24 U/L <35 [facility] Serum or plasma albumin tisha urement (mass/volume)Ordered By: Nora Govea on 06-05-2025 Albumin [Mass/Vol] 3.3 g/dL Low 3.4-4.8 [facility] Serum or plasma albumin/glob ulin mass ratioOrdered By: Nora Govea on 06-05-2025 Albumin/Globulin [Mass ratio] 1.7 {ratio} 0.9-2.4 [facility] Serum or plasma alkaline bud sphatase measurementOrdered By: Nora Govea on 06-05-2025 ALP [Catalytic activity/Vol] 68 U/L 35-104 [facility] Total proteinOrdered By: Cooper mala Jeferson on 06-05-2025 Protein [Mass/Vol] 5.2 g/dL Low 5.9-8.4 [facility] Basic Metabolic Profile (BMP )on 06-04-2025 BUN/CRE 13.5 RATIO Normal 10-20 [facility] Comment on above: Performed By: #### L 501.4021, L100.0500, L503.7505, L500.4050 #### [facility] [address] [place], [address] Calcium [Mass/Vol] 8.2 mg/dL Normal 7.6-11.0 [facility] Comment on above: Performed By: #### L 501.4021, L100.0500, L503.7505, L500.4050 #### [facility] [address] [place], [address] Chloride [Moles/Vol] 94 mmol/L Low 98-108 [facility] Comment on above: Performed By: #### L 501.4021, L100.0500, L503.7505, L500.4050 #### [facility] [address] [place], [address] CO2 [Moles/Vol] 18.5 mmol/L Low 21.0-32.0 [facility] Comment on above: Performed By: #### L 501.4021, L100.0500, L503.7505, L500.4050 #### [facility] [address] [place], [address] Creatinine [Mass/Vol] 3.18 mg/dL High 0.70-1.20 [facility] Comment on above: Performed By: #### L 501.4021, L100.0500, L503.7505, L500.4050 #### [facility] [address] [place], [address] ECRCL 12.06 ml/min Low 50-250 [facility] Comment on above: Performed By: #### L 501.4021, L100.0500, L503.7505, L500.4050 #### [facility] [address] [place], [address] GAP 12 Normal 5-15 [facility] Comment on above: Performed By: #### L 501.4021, L100.0500, L503.7505, L500.4050 #### [facility] [address] [place], [address] GFR/1.73 sq M.predicted among non-blacks MDRD (S/P/Bld) [Vol rate/Area] 14 mL/min/{1.73_m2} Low >60 [facility] Comment on above: Result Comment: mL/m in/1.73m2 CKD-EPI Creatinine Equation (2020) Performed By: #### L 501.4021, L100.0500, L503.7505, L500.4050 #### [facility] [address] [place], [address] Glucose [Mass/Vol] 97 mg/dL Normal 70-99 [facility] Comment on above: Performed By: #### L 501.4021, L100.0500, L503.7505, L500.4050 #### [facility] [address] [place], [address] Potassium [Moles/Vol] 4.0 mmol/L Normal 3.3-5.1 [facility] Comment on above: Performed By: #### L 501.4021, L100.0500, L503.7505, L500.4050 #### [facility] [address] [place], [address] Sodium [Moles/Vol] 124 mmol/L Low 133-145 [facility] Comment on above: Performed By: #### L 501.4021, L100.0500, L503.7505, L500.4050 #### [facility] [address] [place], [address] Urea nitrogen [Mass/Vol] 43 mg/dL High 4-19 [facility] Comment on above: Performed By: #### L 501.4021, L100.0500, L503.7505, L500.4050 #### [facility] [address] [place], [address] CBC-Complete Blood Cnt No Di ffon 06-04-2025 Erythrocyte distribution width (RBC) [Ratio] 14.5 % Normal 11.6-14.6 [facility] Comment on above: Performed By: #### L 100.0500, L500.2500 #### [facility] [address] [place], [address] Hematocrit (Bld) [Volume fraction] 26.4 % Low 37-47 [facility] Comment on above: Performed By: #### L 100.0500, L500.2500 #### [facility] [address] [place], [address] Hemoglobin (Bld) [Mass/Vol] 9.5 g/dL Low 12.0-15.0 [facility] Comment on above: Performed By: #### L 100.0500, L500.2500 #### [facility] [address] [place], [address] MCH (RBC) [Entitic mass] 30.5 pg Normal 27.0-32.0 [facility] Comment on above: Performed By: #### L 100.0500, L500.2500 #### [facility] [address] [place], [address] MCHC (RBC) [Mass/Vol] 36.0 g/dL Normal 32-36 [facility] Comment on above: Performed By: #### L 100.0500, L500.2500 #### [facility] [address] [place], [address] MCV (RBC) [Entitic vol] 84.9 fL Normal 81-99 [facility] Comment on above: Performed By: #### L 100.0500, L500.2500 #### [facility] [address] [place], [address] Platelet mean volume (Bld) [Entitic vol] 9.6 fL Normal 6.2-12.0 [facility] Comment on above: Performed By: #### L 100.0500, L500.2500 #### [facility] [address] [place], [address] Platelets (Bld) [#/Vol] 152 10*3/uL Normal 150-450 [facility] Comment on above: Performed By: #### L 100.0500, L500.2500 #### [facility] [address] [place], [address] RBC (Bld) [#/Vol] 3.11 10*6/uL Low 4.2-5.4 [facility] Comment on above: Performed By: #### L 100.0500, L500.2500 #### [facility] [address] [place], [address] RDW SD 44.6 fl High 35.1-43.9 [facility] Comment on above: Performed By: #### L 100.0500, L500.2500 #### [facility] [address] [place], [address] WBC (Bld) [#/Vol] 11.0 10*3/uL Normal 4.4-11.0 [facility] Comment on above: Performed By: #### L 100.0500, L500.2500 #### [facility] [address] [place], [address] Basic Metabolic Profile (BMP )on 06-03-2025 BUN/CRE 10.4 RATIO Normal 10-20 [facility] Comment on above: Performed By: #### L 100.0500, L500.2500 #### [facility] [address] [place], [address] Calcium [Mass/Vol] 8.4 mg/dL Normal 7.6-11.0 [facility] Comment on above: Performed By: #### L 100.0500, L500.2500 #### [facility] [address] [place], [address] Chloride [Moles/Vol] 94 mmol/L Low 98-108 [facility] Comment on above: Performed By: #### L 100.0500, L500.2500 #### [facility] [address] [place], [address] CO2 [Moles/Vol] 20.3 mmol/L Low 21.0-32.0 [facility] Comment on above: Performed By: #### L 100.0500, L500.2500 #### [facility] [address] [place], [address] Creatinine [Mass/Vol] 3.06 mg/dL High 0.70-1.20 [facility] Comment on above: Performed By: #### L 100.0500, L500.2500 #### [facility] [address] [place], [address] ECRCL 12.53 ml/min Low 50-250 [facility] Comment on above: Performed By: #### L 100.0500, L500.2500 #### [facility] [address] [place], [address] GAP 11 Normal 5-15 [facility] Comment on above: Performed By: #### L 100.0500, L500.2500 #### [facility] [address] [place], [address] GFR/1.73 sq M.predicted among non-blacks MDRD (S/P/Bld) [Vol rate/Area] 15 mL/min/{1.73_m2} Low >60 [facility] Comment on above: Result Comment: mL/m in/1.73m2 CKD-EPI Creatinine Equation (2020) Performed By: #### L 100.0500, L500.2500 #### [facility] [address] [place], [address] Glucose [Mass/Vol] 102 mg/dL High 70-99 [facility] Comment on above: Performed By: #### L 100.0500, L500.2500 #### [facility] [address] [place], [address] Potassium [Moles/Vol] 4.0 mmol/L Normal 3.3-5.1 [facility] Comment on above: Performed By: #### L 100.0500, L500.2500 #### [facility] [address] [place], [address] Sodium [Moles/Vol] 125 mmol/L Low 133-145 [facility] Comment on above: Performed By: #### L 100.0500, L500.2500 #### [facility] [address] [place], [address] Urea nitrogen [Mass/Vol] 32 mg/dL High 4-19 [facility] Comment on above: Performed By: #### L 100.0500, L500.2500 #### [facility] [address] [place], [address] CBC-Complete Blood Cnt No Di ffon 06-03-2025 Erythrocyte distribution width (RBC) [Ratio] 14.8 % High 11.6-14.6 [facility] Comment on above: Performed By: #### L 100.0500, L500.2500 #### [facility] [address] [place], [address] Hematocrit (Bld) [Volume fraction] 21.0 % Low 37-47 [facility] Comment on above: Performed By: #### L 100.0500, L500.2500 #### [facility] [address] [place], [address] Hemoglobin (Bld) [Mass/Vol] 7.3 g/dL Low 12.0-15.0 [facility] Comment on above: Performed By: #### L 100.0500, L500.2500 #### [facility] [address] [place], [address] MCH (RBC) [Entitic mass] 29.3 pg Normal 27.0-32.0 [facility] Comment on above: Performed By: #### L 100.0500, L500.2500 #### [facility] [address] [place], [address] MCHC (RBC) [Mass/Vol] 34.8 g/dL Normal 32-36 [facility] Comment on above: Performed By: #### L 100.0500, L500.2500 #### [facility] [address] [place], [address] MCV (RBC) [Entitic vol] 84.3 fL Normal 81-99 [facility] Comment on above: Performed By: #### L 100.0500, L500.2500 #### [facility] [address] [place], [address] Platelet mean volume (Bld) [Entitic vol] 9.7 fL Normal 6.2-12.0 [facility] Comment on above: Performed By: #### L 100.0500, L500.2500 #### [facility] [address] [place], [address] Platelets (Bld) [#/Vol] 165 10*3/uL Normal 150-450 [facility] Comment on above: Performed By: #### L 100.0500, L500.2500 #### [facility] [address] [place], [address] RBC (Bld) [#/Vol] 2.49 10*6/uL Low 4.2-5.4 [facility] Comment on above: Performed By: #### L 100.0500, L500.2500 #### [facility] [address] [place], [address] RDW SD 45.6 fl High 35.1-43.9 [facility] Comment on above: Performed By: #### L 100.0500, L500.2500 #### [facility] [address] [place], [address] WBC (Bld) [#/Vol] 8.4 10*3/uL Normal 4.4-11.0 [facility] Comment on above: Performed By: #### L 100.0500, L500.2500 #### [facility] [address] [place], [address] Basic Metabolic Profile (BMP )on 06-02-2025 BUN/CRE 18.2 RATIO Normal 10-20 [facility] Comment on above: Performed By: #### L 500.2500 #### [facility] [address] [place], [address] Calcium [Mass/Vol] 8.5 mg/dL Normal 7.6-11.0 [facility] Comment on above: Performed By: #### L 500.2500 #### [facility] [address] [place], [address] Chloride [Moles/Vol] 91 mmol/L Low 98-108 [facility] Comment on above: Performed By: #### L 500.2500 #### [facility] [address] [place], [address] CO2 [Moles/Vol] 23.0 mmol/L Normal 21.0-32.0 [facility] Comment on above: Performed By: #### L 500.2500 #### [facility] [address] [place], [address] Creatinine [Mass/Vol] 1.21 mg/dL High 0.70-1.20 [facility] Comment on above: Performed By: #### L 500.2500 #### [facility] [address] [place], [address] ECRCL 31.70 ml/min Low 50-250 [facility] Comment on above: Performed By: #### L 500.2500 #### [facility] [address] [place], [address] GAP 9 Normal 5-15 [facility] Comment on above: Performed By: #### L 500.2500 #### [facility] [address] [place], [address] GFR/1.73 sq M.predicted among non-blacks MDRD (S/P/Bld) [Vol rate/Area] 46 mL/min/{1.73_m2} Low >60 [facility] Comment on above: Result Comment: mL/m in/1.73m2 CKD-EPI Creatinine Equation (2020) Performed By: #### L 500.2500 #### [facility] [address] [place], [address] Glucose [Mass/Vol] 90 mg/dL Normal 70-99 [facility] Comment on above: Performed By: #### L 500.2500 #### [facility] [address] [place], [address] Potassium [Moles/Vol] 3.9 mmol/L Normal 3.3-5.1 [facility] Comment on above: Performed By: #### L 500.2500 #### [facility] [address] [place], [address] Sodium [Moles/Vol] 123 mmol/L Low 133-145 [facility] Comment on above: Performed By: #### L 500.2500 #### [facility] [address] [place], [address] Urea nitrogen [Mass/Vol] 22 mg/dL High 4-19 [facility] Comment on above: Performed By: #### L 500.2500 #### [facility] [address] [place], [address] BUN Normal 4-19 [facility] Comment on above: Result Comment: Canc elled via OM: Order edited - Discontinuing original order Performed By: #### L 100.0500, L500.2500 #### [facility] [address] [place], [address] BUN/CRE Normal 10-20 [facility] Comment on above: Result Comment: Canc elled via OM: Order edited - Discontinuing original order Performed By: #### L 100.0500, L500.2500 #### [facility] [address] [place], [address] Calcium Normal 7.6-11.0 [facility] Comment on above: Result Comment: Canc elled via OM: Order edited - Discontinuing original order Performed By: #### L 100.0500, L500.2500 #### [facility] [address] [place], [address] CL Normal 98-108 [facility] Comment on above: Result Comment: Canc elled via OM: Order edited - Discontinuing original order Performed By: #### L 100.0500, L500.2500 #### [facility] [address] [place], [address] CO2 Normal 21.0-32.0 [facility] Comment on above: Result Comment: Canc elled via OM: Order edited - Discontinuing original order Performed By: #### L 100.0500, L500.2500 #### [facility] [address] [place], [address] CREAT,SERUM Normal 0.70-1.20 [facility] Comment on above: Result Comment: Canc elled via OM: Order edited - Discontinuing original order Performed By: #### L 100.0500, L500.2500 #### [facility] [address] [place], [address] eGFR Normal >60 [facility] Comment on above: Result Comment: Canc elled via OM: Order edited - Discontinuing original order Performed By: #### L 100.0500, L500.2500 #### [facility] [address] [place], [address] GAP Normal 5-15 [facility] Comment on above: Result Comment: Canc elled via OM: Order edited - Discontinuing original order Performed By: #### L 100.0500, L500.2500 #### [facility] [address] [place], [address] GLU Normal 70-99 [facility] Comment on above: Result Comment: Canc elled via OM: Order edited - Discontinuing original order Performed By: #### L 100.0500, L500.2500 #### [facility] [address] [place], [address] Potassium Normal 3.3-5.1 [facility] Comment on above: Result Comment: Canc elled via OM: Order edited - Discontinuing original order Performed By: #### L 100.0500, L500.2500 #### [facility] [address] [place], [address] Basic Metabolic Profile (BMP) Normal 133-145 [facility] Comment on above: Result Comment: Canc elled via OM: Order edited - Discontinuing original order Performed By: #### L 100.0500, L500.2500 #### [facility] [address] [place], [address] Bedside Glucoseon 06-02-2025 FINGERSTICK GLU 138 mg/dL High 74-106 [facility] Comment on above: Result Comment: GURWINDER PEÑALOZA OF PATIENT CARE PER NURSING PROTOCOL Performed By: #### L 500.2500 #### [facility] [address] [place], [address] CBC-Complete Blood Cnt No Di ffon 06-02-2025 Erythrocyte distribution width (RBC) [Ratio] 14.2 % Normal 11.6-14.6 [facility] Comment on above: Performed By: #### L 500.2500 #### [facility] [address] [place], [address] Hematocrit (Bld) [Volume fraction] 22.1 % Low 37-47 [facility] Comment on above: Performed By: #### L 500.2500 #### [facility] [address] [place], [address] Hemoglobin (Bld) [Mass/Vol] 7.9 g/dL Low 12.0-15.0 [facility] Comment on above: Performed By: #### L 500.2500 #### [facility] [address] [place], [address] MCH (RBC) [Entitic mass] 29.3 pg Normal 27.0-32.0 [facility] Comment on above: Performed By: #### L 500.2500 #### [facility] [address] [place], [address] MCHC (RBC) [Mass/Vol] 35.7 g/dL Normal 32-36 [facility] Comment on above: Performed By: #### L 500.2500 #### [facility] [address] [place], [address] MCV (RBC) [Entitic vol] 81.9 fL Normal 81-99 [facility] Comment on above: Performed By: #### L 500.2500 #### [facility] [address] [place], [address] Platelet mean volume (Bld) [Entitic vol] 9.5 fL Normal 6.2-12.0 [facility] Comment on above: Performed By: #### L 500.2500 #### [facility] [address] [place], [address] Platelets (Bld) [#/Vol] 173 10*3/uL Normal 150-450 [facility] Comment on above: Performed By: #### L 500.2500 #### [facility] [address] [place], [address] RBC (Bld) [#/Vol] 2.70 10*6/uL Low 4.2-5.4 [facility] Comment on above: Performed By: #### L 500.2500 #### [facility] [address] [place], [address] RDW SD 41.7 fl Normal 35.1-43.9 [facility] Comment on above: Performed By: #### L 500.2500 #### [facility] [address] [place], [address] WBC (Bld) [#/Vol] 8.8 10*3/uL Normal 4.4-11.0 [facility] Comment on above: Performed By: #### L 500.2500 #### [facility] [address] [place], [address] Duplex ultrasound of renal a rtery reportOrdered By: Porfirio Mei on 06-02-2025 Study report [facility] [address] [place] [address] Renal Artery Duplex Ultrasound 06/01/25 0809 MR#: [id number] Acct: [id number] Name: ALVARADO COHEN Rep #:[id number] : 1945 79 From: Porfirio Muñoz Attending Dr: DO Bigg Carver tatus: ADM IN Ordering Dr: Nora Govea DO Date: 0 05/31/25 Location: PCU Sex: F C Admitted: 05/29/25 Reason For Study Reason For Study: Uncontrolled HTN Right Renal Artery Left Renal Artery Right renal artery ostium 150.6/14.9 Left renal artery ostium 159/26.3 RSV/EDV. PSV/EDV. Right renal artery proximal 69.4/12.3 Left renal artery proximal PSV/EDV PSV/EDV. 154.4/23.9 . Right renal artery mid 62.5/20.5 PSV/EDV. Left renal artery mid 173.8/26.3 Right renal artery distal 46/15 PSV/EDV. PSV/EDV . Unable to demonstrate velocities as Left renal artery distal 127.6/15.3 compared to 05/20/2024. Hx duplicator RRA PSV/EDV. on angiogram 10/07/2024. Left RAR 1.86. Right RAR 1.61. Left Renal Parenchyma Right Renal Parenchyma Left upper pole medulla 30.2/8.1 Upper Pole Medula 14.5/4.7 PSV/EDV. PSV/EDV . Right upper pole medulla EDR 0.3 . Left upper pole medulla EDR 0.3 . Right upper pole medulla R.I. 0.68 . Left upper pole medulla R.I. 0.73 . Upper Norman Cortx 8.1/4.6 PSV/EDV. UPCortex 15.5/4.4 PSV/EDV. Right upper pole cortex EDR 0.6 . Left upper pole cortex EDR 0.3 . Right upper pole cortex R.I. 0.43 . Left upper pole cortex R.I. 0.71 . Right lower Pole medulla 20/4.7 PSV/EDV . Left lower Pole medulla 24.1/6.3 Right lower pole medulla EDR 0.2 . PSV/EDV . Right lower pole medulla R.I. 0.77 . Left lower pole medulla EDR 0.3 . Lower Pole Cortex 10.2/5.3 PSV/EDV. Left lower pole medulla R.I. 0.74 . Right lower pole cortex EDR 0.5 . Lower Pole Cortx 13/5.6 PSV/EDV. Right lower pole cortex R.I. 0.48 . Left lower pole cortex EDR 0.57 . Right Renal Hilar Left Renal Hilar Right Hilar avg 50.2/9.2 PSV/EDV. LTHilar avg 48.6/10.2 PSV/EDV . Right hilar acceleration time 40 m/sec. Left hilar acceleration time 10 m/sec. Right Renal Dimensions Left Renal Dimensions Right kidney size 8.17 cm . Left kidney size 10.29 cm . Right cortical dimension 1.23 cm . Left cortical dimension 1.54 cm . Aorta Proximal abdominal aorta 1.11 x 1.11 cm . Proximal abdominal aorta peak systolicvelocity is 93.5 cm/sec . Distal abdominal aorta 0.93 x 0.89 cm . Distal abdominal aorta peak systolic velocity is 183 cm/sec . VL/Renal Artery Duplex Ultrasound Interpretation Summary Right renal artery patent with normal velocities and no evidence of stenosis. Left renal artery patent with normal velocities and no evidence of stenosis. Right renal vein patent. Left renal vein patent. Right kidney diminished in size. Left kidney normal in size. Previously visualized right renal stenosis not identified. 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 Ordering Physician: Nora Govea Referring Physician: MD Ene Glenny Performed By: Estela Tillman RVT 06/02/25 0809 Date _ Porfirio Mei MD CC: Dr. Nora Govea DO; Dr. Tiffanie Govea DO; Dr. Glenny Luque MD ~ Date Dictated: 06/01/25808 Date Transcribed: 06/02/25808 Accounts Payable Clerk: Signed [facility] Work Phone: Glucose measurement at bedsi deOrdered By: Tiffanie Govea on 06-02-2025 Glucose [Mass/Vol] 138 mg/dL High 74-106 [facility] Comment on above: MANAGEMENT OF PATIEN T CARE PER NURSING PROTOCOL Magnetic resonance imaging r eportOrdered By: Issac Purdy on 06-02-2025 Study report [facility] Services [address] [place] [address] Spine Lumbar (Routine) MR#: [id number] Acct: [id number] Name: ALVARADO COHEN Rep #: [id number] : 1945 F 79 From: Dave Purdy MD PCP: Dr. Glenny Luque MD Status: AD M IN Study:Spine Lumbar (Routine) Date of Exam: 06/02/25 Exam# [id number] Ordering Dr: Ros Govea DO PROCEDURE: MR SPINE LUMBAR (ROUTINE) 06/02/2025 REASON FOR EXAM: Bilateral lower extremity numbness/weakness TECHNIQUE: Multiplanar and multisequential MRI of the lumbar spine was performed without contrast. COMPARISON: None. FINDINGS: 5 [id number] lumbar-type vertebrae. No evidence of acute fracture or subluxation. Vertebral body heights are preserved. Chronic degenerative/acquire d grade 1 anterolisthesis of L4 on L5 by 6-7 mm. Alignment of the vertebral segments is otherwise anatomic at the remaining levels. Mild multilevel spondylotic changes primarily at L4-5 and L5-S1, with disc desiccation and narrowing, endplate osteophytosis, and hypertrophic facet arthropathy. Active degenerative endplate signal changes at L4-5 with mild marrow edema. No suspicious marrow lesion. Conus appears normal in signal and morphology, terminating at at L1. Normal appearance of the cauda equina. No significant abnormality in the visualized paravertebral soft tissues. L1-2: No disc bulge, spinal canal or foraminal narrowing. L2-3: Mild dorsal annular disc bulge indenting the ventral thecal sac. No significant spinal canal or neural foraminal narrowing. L3-4: No disc bulge, spinal canal or neural foraminal narrowing. L4-5: Partially uncovered dorsal disc bulge secondary to grade 1 anterolisthesisof L4, combined with ligamentum flavum/facet hypertrophy results in mild-moderate spinal canal narrowing. Mild-moderate bilateral neural foraminal narrowing, slightly greater on the right. L5-S1: Mild broad-based dorsal disc bulge indenting the ventral thecal sac. No significant spinal canal narrowing. Mild-moderate bilateral neural foraminal narrowing. MRI/Spine Lumbar (Routine) IMPRESSION: No acute abnormality. Multilevel spondylotic changes as described, most pronounced at L4-5 with degenerative acquired grade 1 anterolisthesis of L4, and with mild-moderate spinal canal and bilateral neural foraminal narrowing. Neural foraminal narrowing also mild-moderate bilaterally at L5-S1. Reading Location: [id number] CC: Dr. Tiffanie Govea DO; Dr. Glenny Luque MD ~ Accounts Payable Clerk: Signed [facility] Spine Lumbar (Routine)on Spine Lumbar (Routine) [facility] Services [address] [place], [place] [id number] Spine Lumbar (Routine) MR#: [id number] Acct: [id number] Name: ALVARADO COHEN CALLI Rep #: [id number] : 1945 F 79 From: Issac Purdy MD PCP: Dr. Glenny Luque MD Status: ADM IN Study: Spine Lumbar (Routine) Date of Exam: 06/02/25 Exam# [id number] Ordering Dr: Tiffanie Govea DO PROCEDURE: MR SPINE LUMBAR (ROUTINE) 06/02/2025 REASON FOR EXAM: Bilateral lower extremity numbness/weakness TECHNIQUE: Multiplanar and multisequential MRI of the lumbar spine was performed without contrast. COMPARISON: None. FINDINGS: 5 wbj-iww-[id number] lumbar-type vertebrae. No evidence of acute fracture or subluxation. Vertebral body heights are preserved. Chronic degenerative/acquire d grade 1 anterolisthesis of L4 on L5 by 6-7 mm. Alignment of the vertebral segments is otherwise anatomic at the remaining levels. Mild multilevel spondylotic changes primarily at L4-5 and L5-S1, with disc desiccation and narrowing, endplate osteophytosis, and hypertrophic facet arthropathy. Active degenerative endplate signal changes at L4-5 with mild marrow edema. No suspicious marrow lesion. Conus appears normal in signal and morphology, terminating at at L1. Normal appearance of the cauda equina. No significant abnormality in the visualized paravertebral soft tissues. L1-2: No disc bulge, spinal canal or foraminal narrowing. L2-3: Mild dorsal annular disc bulge indenting the ventral thecal sac. No significant spinal canal or neural foraminal narrowing. L3-4: No disc bulge, spinal canal or neural foraminal narrowing. L4-5: Partially uncovered dorsal disc bulge secondary to grade 1 anterolisthesis of L4, combined with ligamentum flavum/facet hypertrophy results in mild-moderate spinal canal narrowing. Mild-moderate bilateral neural foraminal narrowing, slightly greater on the right. L5-S1: Mild broad-based dorsal disc bulge indenting the ventral thecal sac. No significant spinal canal narrowing. Mild-moderate bilateral neural foraminal narrowing. MRI/Spine Lumbar (Routine) IMPRESSION: No acute abnormality. Multilevel spondylotic changes as described, most pronounced at L4-5 with degenerative acquired grade 1 anterolisthesis of L4, and with mild-moderate spinal canal and bilateral neural foraminal narrowing. Neural foraminal narrowing also mild-moderate bilaterally at L5-S1. Reading Location: [id number] CC: Dr. Tiffanie Govea DO; Dr. Glenny Luque MD Accounts Payable Clerk: Signed Normal [facility] Basic Metabolic Profile (BMP )on 06-01-2025 BUN/CRE 15.5 RATIO Normal 10-20 [facility] Comment on above: Performed By: #### L 501.4021, L100.0500, L503.7505, L500.4050 #### [facility] [place], [address] Calcium [Mass/Vol] 8.8 mg/dL Normal 7.6-11.0 [facility] Comment on above: Performed By: #### L 501.4021, L100.0500, L503.7505, L500.4050 #### [facility] [address] [place], [address] Chloride [Moles/Vol] 85 mmol/L Low 98-108 [facility] Comment on above: Performed By: #### L 501.4021, L100.0500, L503.7505, L500.4050 #### [facility] [address] [place], [address] CO2 [Moles/Vol] 19.7 mmol/L Low 21.0-32.0 [facility] Comment on above: Performed By: #### L 501.4021, L100.0500, L503.7505, L500.4050 #### [facility] [address] [place], [address] Creatinine [Mass/Vol] 1.10 mg/dL Normal 0.70-1.20 [facility] Comment on above: Performed By: #### L 501.4021, L100.0500, L503.7505, L500.4050 #### [facility] [address] [place], [address] ECRCL 34.87 ml/min Low 50-250 [facility] Comment on above: Performed By: #### L 501.4021, L100.0500, L503.7505, L500.4050 #### [facility] [address] [place], [address] GAP 12 Normal 5-15 [facility] Comment on above: Performed By: #### L 501.4021, L100.0500, L503.7505, L500.4050 #### [facility] [address] [place], [address] GFR/1.73 sq M.predicted among non-blacks MDRD (S/P/Bld) [Vol rate/Area] 51 mL/min/{1.73_m2} Low >60 [facility] Comment on above: Result Comment: mL/m in/1.73m2 CKD-EPI Creatinine Equation (2020) Performed By: #### L 501.4021, L100.0500, L503.7505, L500.4050 #### [facility] [address] [place], [address] Glucose [Mass/Vol] 154 mg/dL High 70-99 [facility] Comment on above: Performed By: #### L 501.4021, L100.0500, L503.7505, L500.4050 #### [facility] [address] [place], [address] Potassium [Moles/Vol] 3.7 mmol/L Normal 3.3-5.1 [facility] Comment on above: Performed By: #### L 501.4021, L100.0500, L503.7505, L500.4050 #### [facility] [address] [place], [address] Sodium [Moles/Vol] 117 mmol/L Invalid Interpretation Code 133-145 [facility] Comment on above: Result Comment: Crit ical Result(s) [facility] at: 1855 by: ART??Results read back by same. Performed By: #### L 501.4021, L100.0500, L503.7505, L500.4050 #### [facility] [address] [place], [address] Urea nitrogen [Mass/Vol] 17 mg/dL Normal 4-19 [facility] Comment on above: Performed By: #### L 501.4021, L100.0500, L503.7505, L500.4050 #### [facility] [address] [place], [address] BUN Normal 4-19 [facility] Comment on above: Result Comment: Canc elled via OM: MD Ordered Performed By: #### L 501.4021, L100.0500, L503.7505, L500.4050 #### [facility] [address] [place], [address] BUN/CRE Normal 10-20 [facility] Comment on above: Result Comment: Canc elled via OM: MD Ordered Performed By: #### L 501.4021, L100.0500, L503.7505, L500.4050 #### [facility] [address] [place], [address] Calcium Normal 7.6-11.0 [facility] Comment on above: Result Comment: Canc elled via OM: MD Ordered Performed By: #### L 501.4021, L100.0500, L503.7505, L500.4050 #### [facility] [address] [place], [address] CL Normal 98-108 [facility] Comment on above: Result Comment: Canc elled via OM: MD Ordered Performed By: #### L 501.4021, L100.0500, L503.7505, L500.4050 #### [facility] [address] [place], [address] CO2 Normal 21.0-32.0 [facility] Comment on above: Result Comment: Canc elled via OM: MD Ordered Performed By: #### L 501.4021, L100.0500, L503.7505, L500.4050 #### [facility] [address] [place], [address] CREAT,SERUM Normal 0.70-1.20 [facility] Comment on above: Result Comment: Canc elled via OM: MD Ordered Performed By: #### L 501.4021, L100.0500, L503.7505, L500.4050 #### [facility] [address] [place], [address] eGFR Normal >60 [facility] Comment on above: Result Comment: Canc elled via OM: MD Ordered Performed By: #### L 501.4021, L100.0500, L503.7505, L500.4050 #### [facility] [address] [place], [address] GAP Normal 5-15 [facility] Comment on above: Result Comment: Canc elled via OM: MD Ordered Performed By: #### L 501.4021, L100.0500, L503.7505, L500.4050 #### [facility] [address] [place], [address] GLU Normal 70-99 [facility] Comment on above: Result Comment: Canc elled via OM: MD Ordered Performed By: #### L 501.4021, L100.0500, L503.7505, L500.4050 #### [facility] [address] [place], [address] Potassium Normal 3.3-5.1 [facility] Comment on above: Result Comment: Canc elled via OM: MD Ordered Performed By: #### L 501.4021, L100.0500, L503.7505, L500.4050 #### [facility] [address] [place], [address] Basic Metabolic Profile (BMP) Normal 133-145 [facility] Comment on above: Result Comment: Canc elled via OM: MD Ordered Performed By: #### L 501.4021, L100.0500, L503.7505, L500.4050 #### [facility] [address] [place], [address] CBC W/Diff, Automatedon 07-2 Absolute Lymph 1.23 X10 3/uL Normal 0.83-4.51 [facility] Comment on above: Performed By: #### L 500.2500 #### [facility] [address] [place], [address] Absolute Neut 6.2 X10 3/uL Normal 2.0-7.7 [facility] Comment on above: Performed By: #### L 500.2500 #### [facility] [address] [place], [address] Basophils/100 WBC (Bld) 0.4 % Normal 0-1 [facility] Comment on above: Performed By: #### L 500.2500 #### [facility] [address] [place], [address] Eosinophils/100 WBC (Bld) 0.9 % Normal 0-5 [facility] Comment on above: Performed By: #### L 500.2500 #### [facility] [address] [place], [address] Erythrocyte distribution width (RBC) [Ratio] 13.3 % Normal 11.6-14.6 [facility] Comment on above: Performed By: #### L 500.2500 #### [facility] [address] [place], [address] Hematocrit (Bld) [Volume fraction] 21.6 % Low 37-47 [facility] Comment on above: Performed By: #### L 500.2500 #### [facility] [address] [place], [address] Hemoglobin (Bld) [Mass/Vol] 8.0 g/dL Low 12.0-15.0 [facility] Comment on above: Performed By: #### L 500.2500 #### [facility] [address] [place], [address] IG% 0.900 Normal 0.0-0.9 [facility] Comment on above: Result Comment: IG% - Immature Granulocytes (promyelocytes, myelocytes and metamyelocytes) > 1% indicates that a LEFT SHIFT is Present. Performed By: #### L 500.2500 #### [facility] [address] [place], [address] Lymphocytes/100 WBC (Bld) 14.4 % Low 19-41 [facility] Comment on above: Performed By: #### L 500.2500 #### [facility] [address] [place], [address] MCH (RBC) [Entitic mass] 29.6 pg Normal 27.0-32.0 [facility] Comment on above: Performed By: #### L 500.2500 #### [facility] [address] [place], [address] MCHC (RBC) [Mass/Vol] 37.0 g/dL High 32-36 [facility] Comment on above: Performed By: #### L 500.2500 #### [facility] [address] [place], [address] MCV (RBC) [Entitic vol] 80.0 fL Low 81-99 [facility] Comment on above: Performed By: #### L 500.2500 #### [facility] [address] [place], [address] Monocytes/100 WBC (Bld) 11.4 % High 0-10 [facility] Comment on above: Performed By: #### L 500.2500 #### [facility] [address] [place], [address] Neutrophils/100 WBC (Bld) 72.0 % High 47-70 [facility] Comment on above: Performed By: #### L 500.2500 #### [facility] [address] [place], [address] Nucleated RBC (Bld) [#/Vol] 0 10*3/uL Normal 0-5 [facility] Comment on above: Performed By: #### L 500.2500 #### [facility] [address] [place], [address] Platelet mean volume (Bld) [Entitic vol] 10.0 fL Normal 6.2-12.0 [facility] Comment on above: Performed By: #### L 500.2500 #### [facility] [address] [place], [address] Platelets (Bld) [#/Vol] 178 10*3/uL Normal 150-450 [facility] Comment on above: Performed By: #### L 500.2500 #### [facility] [address] [place], [address] RBC (Bld) [#/Vol] 2.70 10*6/uL Low 4.2-5.4 [facility] Comment on above: Performed By: #### L 500.2500 #### [facility] [address] [place], [address] RDW SD 38.1 fl Normal 35.1-43.9 [facility] Comment on above: Performed By: #### L 500.2500 #### [facility] [address] [place], [address] WBC (Bld) [#/Vol] 8.6 10*3/uL Normal 4.4-11.0 [facility] Comment on above: Performed By: #### L 500.2500 #### [facility] [address] [place], [address] Comprehensive Metabolic [facility] 06-01-2025 Albumin [Mass/Vol] 3.4 g/dL Normal 3.4-4.8 [facility] Comment on above: Performed By: #### L 501.4021, L100.0500, L503.7505, L500.4050 #### [facility] [address] [place], [address] Albumin/Globulin [Mass ratio] 2.1 {ratio} Normal 0.9-2.4 [facility] Comment on above: Performed By: #### L 501.4021, L100.0500, L503.7505, L500.4050 #### [facility] [address] [place], [address] ALK PHOS 59 U/L Normal 35-104 [facility] Comment on above: Performed By: #### L 501.4021, L100.0500, L503.7505, L500.4050 #### [facility] [address] [place], [address] ALT [Catalytic activity/Vol] 16 U/L Normal <=34 [facility] Comment on above: Performed By: #### L 501.4021, L100.0500, L503.7505, L500.4050 #### [facility] [address] [place], [address] AST [Catalytic activity/Vol] 27 U/L Normal <=31 [facility] Comment on above: Performed By: #### L 501.4021, L100.0500, L503.7505, L500.4050 #### [facility] [address] [place], [address] Bilirubin [Mass/Vol] 0.95 mg/dL Normal 0.00-1.30 [facility] Comment on above: Performed By: #### L 501.4021, L100.0500, L503.7505, L500.4050 #### [facility] [address] [place], [address] BUN/CRE 21.7 RATIO High 10-20 [facility] Comment on above: Performed By: #### L 501.4021, L100.0500, L503.7505, L500.4050 #### [facility] [address] [place], [address] Calcium [Mass/Vol] 8.3 mg/dL Normal 7.6-11.0 [facility] Comment on above: Performed By: #### L 501.4021, L100.0500, L503.7505, L500.4050 #### [facility] [address] [place], [address] Chloride [Moles/Vol] 77 mmol/L Low 98-108 [facility] Comment on above: Performed By: #### L 501.4021, L100.0500, L503.7505, L500.4050 #### [facility] [address] [place], [address] CO2 [Moles/Vol] 20.6 mmol/L Low 21.0-32.0 [facility] Comment on above: Performed By: #### L 501.4021, L100.0500, L503.7505, L500.4050 #### [facility] [address] [place], [address] Creatinine [Mass/Vol] 0.96 mg/dL Normal 0.70-1.20 [facility] Comment on above: Performed By: #### L 501.4021, L100.0500, L503.7505, L500.4050 #### [facility] [address] [place], [address] ECRCL 39.95 ml/min Low 50-250 [facility] Comment on above: Performed By: #### L 501.4021, L100.0500, L503.7505, L500.4050 #### [facility] [address] [place], [address] GAP 11 Normal 5-15 [facility] Comment on above: Performed By: #### L 501.4021, L100.0500, L503.7505, L500.4050 #### [facility] [address] [place], [address] GFR/1.73 sq M.predicted among non-blacks MDRD (S/P/Bld) [Vol rate/Area] 61 mL/min/{1.73_m2} Normal >60 [facility] Comment on above: Result Comment: mL/m in/1.73m2 CKD-EPI Creatinine Equation (2020) Performed By: #### L 501.4021, L100.0500, L503.7505, L500.4050 #### [facility] [address] [place], [address] Globulin (S) [Mass/Vol] 1.6 g/dL Low 2.2-4.2 [facility] Comment on above: Performed By: #### L 501.4021, L100.0500, L503.7505, L500.4050 #### [facility] [address] [place], [address] Glucose [Mass/Vol] 88 mg/dL Normal 70-99 [facility] Comment on above: Performed By: #### L 501.4021, L100.0500, L503.7505, L500.4050 #### [facility] [address] [place], [address] Potassium [Moles/Vol] 3.8 mmol/L Normal 3.3-5.1 [facility] Comment on above: Performed By: #### L 501.4021, L100.0500, L503.7505, L500.4050 #### [facility] [address] [place], [address] Sodium [Moles/Vol] 109 mmol/L Invalid Interpretation Code 133-145 [facility] Comment on above: Result Comment: Crit ical Result(s) Called at: 0535 by:??SHILOH HAVEN TO CHANTELL JURADO Results read back by same. Performed By: #### L 501.4021, L100.0500, L503.7505, L500.4050 #### [facility] [address] [place], [address] T PROT 5.1 g/dL Low 5.9-8.4 [facility] Comment on above: Performed By: #### L 501.4021, L100.0500, L503.7505, L500.4050 #### [facility] [address] [place], [address] Urea nitrogen [Mass/Vol] 21 mg/dL High 4-19 [facility] Comment on above: Performed By: #### L 501.4021, L100.0500, L503.7505, L500.4050 #### [facility] [address] [place], [address] Consultation - Surgicalon Consultation - Surgical [facility] Medical Records Department [address] [place] [address] Consultation - Surgical 06/01/25 1745 MR#: [id number] Acct: [id number] Name: ALVARADO COHEN Rep #: [id number] : 1945 79 From: Porfirio Mei MD PCP: Dr. Glenny Luque MD Status:ADM IN Location: [place] [address] Assessment Plan Assessment/Plan (1) Renal artery stenosis: PLAN: -contributing to her chronic difficulty controlling BP -given anatomic barriers to endo tx and small vessel size my not have any great treatment option -since modestly controlled would not push efforts to treat, particularly given new UGI bleed -will cont to follow HPI Consult Data Date of Consult: 06/01/25 HPI Narrative HPI Narrative: ALVARADO COHEN, is a 79 F who is admitted with hyponatremia, recent adjustments in her BP meds. She has known right accessory renal artery stenosis that could not be fixed endovascular previously due to significant aortic calcific burden. Discussion at that time was to continue with medical management and as long as modest BP control would not further pursue treatment. Given that vessel with stenosis is accessory and perfuses smaller portion of renal parenchyma bypass options may not have great result and if vessel ultimately occludes her renal function would be preserved. During this admission also found to have anemia, UGI bleed treated endoscopically [facility] Medical History Renal artery stenosis HTN (hypertension) Home Medications ???Medication ???Instructions ???Recorded ???Last Taken ???Type amlodipine 10 mg tablet 10 mg PO DAILY 03/21/23 05/29/25 H istory chlorthalidone 25 mg tablet 25 mg PO QDAY 08/27/24 05/29/25 Hi story metoprolol succinate 50 mg 50 mg PO BID 08/27/24 05/29/25 His tory tablet,extended release 24 hr hydralazine 25 mg tablet 25 mg PO BID high blood pressure 1 12/07/23 05/29/25 History lisinopril 30 mg tablet 30 mg PO BID High blood pressure 1 12/07/23 05/29/25 History Allergy/AdvReac Type Severity Reaction Status Date / Time codeine Allergy PT UNSURE Verified 05/29/25 12:50 OF REACTION Sulfa (Sulfonamide Allergy Rash Verified 05/29/25 12:50 Antibiotics) (sulfa drugs) Family History Other Asthma Cancer Hypertension Surgical History H/O cone biopsy of cervix ( 1977) Social History Smoking Status: Light Smoker (<10/day) Tobacco: How many years used: 40 quit status: considering quitting Physical Exam Const alert, oriented x3, no apparent distress and healthy appearing General Appearance: cooperative; Negative for combative or lethargic Orientation / Consciousness: awake Exam Limitations: no limitations HEENT Head and Scalp: normocephalic and atraumatic Eyes EOMs intact bilaterally General Eye: normal appearance of both eyes Neck full ROM General: trachea midline Resp normal respiratory effort and no use [...] normal, speech normal and activity/motor behavior normal Lab / Micro Data 06/01/25 09:34 06/01/25 04:58 Labs: Laboratory Results - last 24 hr 05/31/25 18:01: Blood Type A POSITIVE, ABO/Rh Cancelled, A1 Subgroup Cancelled, Rho(D) Tech Interpret Cancelled, Antibody Screen NEGATIVE, Crossmatch See Detail 05/31/25 21:48: Sodium 109 L* 06/01/25 00:09: Hgb 6.6 L 06/01/25 04:58: WBC 8.6, RBC 2.70 L, Hgb 8.0 L, Hct 21.6 L, MCV 80.0 L, MCH 29.6, MCHC 37.0 H, RDW Std Deviation 38.1, RDW Coeff of Cathleen 13.3, Plt Count 178, MPV 10.0, Immature Gran % (Auto) 0.900, N eut % (Auto) 72.0 H, Lymph % (Auto) 14.4 L, [place] % (Auto) 11.4 H, Eos % (Auto) 0.9, Baso % (Auto) 0.4, Absolute Neuts (auto) 6.2, Absolute Lymphs (auto) 1.23, Nucleated RBC % 0, Sodium 109 L*, Potassium 3.8, Chloride 77 L, Carbon Dioxide 20.6 L, Anion Gap 11, BUN 21 H, Creatinine 0.96, Estim Creat Clear Calc 39.95 L, Est GFR (MDRD) Non-Af 61, BUN/Creatinine Ratio 21.7 H, Glucose 88, Calcium 8.3, Phosphorus 2.8, Magnesium 1.7, Total Bilirubin 0.95, AST 27, ALT 16, Alkaline Phosphatase 59, T otal Protein 5.1 L, Albumin 3.4, Globulin 1.6 L, Albumin/Globulin Ratio 2.1 06/01/25 09:34: Hgb 7.9 L 06/01/25 11:13: Ur Random Sodium 23 Charges/Coding Visit Charges Inpatient E M: (more content not included)... Normal [facility] EGD Reporton 06-01-2025 EGD Report [facility] Medical Records Department [address] [place] [address] EGD Report MR#: [id number] Acct: [id number] Name: ALVARADO COHEN Rep #: [id number] : 1945 79 From: Juan Manuel Valdovinos DO PCP: Dr. Glenny Luque MD Status:ADM IN Patient Name: Alvarado Cohen Procedure Date: 06/01/2025 3:41 PM Date of : 1945 Age: 79 Procedure: Upper GI endoscopy Indications: Iron deficiency anemia, Melena, Recent gastrointestinal bleeding Providers: Juan Manuel Valdovinos DO Medicines: Monitored Anesthesia Care Patient Profile: This is a 79 year old female. Refer to note in patient chart for documentation of history and physical. Patient has symptoms. Complications: No immediate complications. Procedure: Pre-Anesthesia Assessment: - Prior to the procedure, a History and Physical was performed, and patient medications and allergies were reviewed. The patient is competent. The risks and benefits of the procedure and the sedation options and risks were discussed with the patient. All questions were answered and informed consent was obtained. Patient identification and proposed procedure were verified by the physician in the pre-procedure area. Mental Status Examination: alert and oriented. Airway Examination: normal oropharyngeal airway and neck mobility. Respiratory Examination: clear to auscultation. CV Examination: normal. Prophylactic Antibiotics: The patient does not require prophylactic antibiotics. Prior Anticoagulants: The patient has taken no anticoagulant or antiplatelet agents except for NSAID medication. ASA Grade Assessment: II - A patient with mild systemic disease. After reviewing the risks and benefits, the patient was deemed in satisfactory condition to undergo the procedure. The anesthesia plan was to use monitored anesthesia care (MAC). Immediately prior to administration of medications, the patient was re-assessed for adequacy to receive sedatives. The heart rate, respiratory rate, oxygen saturations, blood pressure, adequacy of pulmonary ventilation, and response to care were monitored throughout the procedure. The physical status of the patient was re-assessed after the procedure. After obtaining informed consent, the endoscope was passed under direct vision. Throughout the procedure, the patient's blood pressure, pulse, and oxygen saturations were monitored continuously. The Endoscope was introduced through the mouth, and advanced to the jejunum. Small bowel enteroscopy was deemed necessary. The upper GI endoscopy was accomplished without difficulty. The patient tolerated the procedure well. Scope In: 4:08:47 PM Scope Out: 4:14:29 PM Total Procedure Duration Time 0 hours 5 minutes 42 seconds Findings: No gross lesions were noted in the entire examined stomach. Many oozing linear duodenal ulcers with no stigmata of bleeding were found in the duodenal bulb and in the first portion of the duodenum. The largest lesion was 3 mm in largest dimension. Biopsies were taken with a cold forceps for histology. Verification of patient identification for the specimen was done. Estimated blood loss was minimal. Multiple 4 mm angiodysplastic lesions with bleeding were found in the first portion of the duodenum, in the second portion of the duodenum, in the third portion of the duodenum and in the fourth portion of the duodenum. Coagulation for hemostasis using heater probe was successful. Estimated blood loss was minimal. A few 3 mm angiodysplastic lesions without bleeding were found in the jejunum. Coagulation for destruction of remaining portion of lesion using heater probe was successful. Estimated blood loss was minimal. Non-severe esophagitis with no bleeding was found 37 to 40 cm from the incisors. Impression: - Normal esophagus. - No gross lesions in the entire stomach. - Oozing duodenal ulcers with no stigmata of bleeding. Biopsied. 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 Treated with a heater probe. - A few non-bleeding angiodysplastic lesions in the jejunum. Treated with a heater probe. Recommendation: - Return patient to [facility] for [facility] care. - Resume regular diet today. - Continue present medications. - The patient is not currently taking anticoagulant or antiplatelet agents except for aspirin and NSAID medication. - Await pathology results. - Repeat upper endoscopy in 4 months for surveillance. - Outpatient capsule endoscopy Procedure Code(s): --- Professional --- 06650, 59, Small intestinal endoscopy, enteroscopy beyond second portion of duodenum, not including ileum; with control of bleeding (eg, injection, bipolar cautery, unipolar cautery, laser, heater probe, stapler, plasma seasonal package handler) 11161, 51, Small intestinal endoscopy, enteroscopy beyond second portion of duoden (more content not included)... Normal [facility] Hemoglobinon 06-01-2025 Hemoglobin (Bld) [Mass/Vol] 7.9 g/dL Low 12.0-15.0 [facility] Comment on above: Performed By: #### L 501.4021, L100.0500, L503.7505, L500.4050 #### [facility] [address] [place], [address] Hemoglobin (Bld) [Mass/Vol] 6.6 g/dL Low 12.0-15.0 [facility] Comment on above: Performed By: #### L 100.0500, L500.2500 #### [facility] [address] [place], [address] MR/CON.PCM.GIon 06-01-2025 MR/CON.PCM.GI [facility] Medical Records Department [address] [facility] [place] [address] Consultation - GI 06/01/25 1515 MR#: [id number] Acct: [id number] Name: ALVARADO COHEN CALLI Rep #: [id number] : 1945 79 From: Juan Manuel Friend DO PCP: Dr. Glenny Luque MD Status:ADM IN Location: [place] [address] HPI Consult Data Date of Consult: 06/01/25 HPI Narrative Reason for Consultation: Anemia HPI Narrative: ALVARADO COHEN, is a 79-year-old female history of hypertension and renal artery stenosis presented [facility] ED 05/29/2025 with increased shortness of breath, swelling, dizziness and weakness for 4 days. In the ED temp 97.8, heart rate of 68 and blood pressure 185/54, respiratory rate 18 and pulse ox 96% on room air. CBC with white blood cell count of 8.6, hemoglobin 10.2. UA not suggestive of infection, proBNP elevated at 5274 and troponin 20. CMP however revealed a sodium of 106, potassium of 3.5, chloride of 73 and BUN of 21 with a creatinine of 1.06. Glucose 121 and liver profile within normal limits. Sodium low at 106 on admit to 110 today. Last sodium 131 on 04/02/25 from [facility]. She has been on chlorthalidone retirement. Recently started on doxazosin for uncontrolled hypertension in May then stopped after intolerance to it with weakness, swelling. I was asked to see her due to decreasing hemoglobin from 10.2 down to 6.6. She does endorse dark stools. [facility] Medical History Renal artery stenosis HTN (hypertension) Home Medications ???Medication ???Instructions ???Recorded ???Last Taken ???Type amlodipine 10 mg tablet 10 mg PO DAILY 03/21/23 05/29/25 H istory chlorthalidone 25 mg tablet 25 mg PO QDAY 08/27/24 05/29/25 Hi story metoprolol succinate 50 mg 50 mg PO BID 08/27/24 05/29/25 His tory tablet,extended release 24 hr hydralazine 25 mg tablet 25 mg PO BID high blood pressure 1 12/07/23 05/29/25 History lisinopril 30 mg tablet 30 mg PO BID High blood pressure 1 12/07/23 05/29/25 History Allergy/AdvReac Type Severity Reaction Status Date / Time codeine Allergy PT UNSURE Verified 05/29/25 12:50 OF REACTION Sulfa (Sulfonamide Allergy Rash Verified 05/29/25 12:50 Antibiotics) (sulfa drugs) Family History Other Asthma Cancer Hypertension Surgical History H/O cone biopsy of cervix ( 1977) Social History Smoking Status: Light Smoker (<10/day) Tobacco: How many years used: 40 quit status: considering quitting ROS Constitutional Constitutional: Denies fatigue, fever(s), poor appetite, weight gain or weight loss Gastrointestinal Gastrointestinal: Denies belching, bloating, change in bowel habits, change in stool character, chewing difficulty, coffee ground emesis, constipation, cramping, diarrhea, dyspepsia, dysphagia, early satiety, excessive flatus, fecal incontinence, heartburn, hematemesis, hematochezia, hemorrhoids, loose stools, melena, nausea, odynophagia, rectal bleeding, tenesmus, vomiting or weight changes Physical Exam Const alert, oriented x3, no apparent distress and healthy appearing General Appearance: cooperative GI normal to inspection, nondistended, normoactive bowel sounds, soft to palpation, non-tender and non- distended Percussion: normal to percussion Rectal Exam: deferred Lab / Micro Data 06/01/25 09:34 06/01/25 04:58 Labs: Laboratory Results - last 24 hr 05/31/25 15:57: Hgb 7.3 L, Sodium 109 L* 05/31/25 18:01: Blood Type A POSITIVE, ABO/Rh Cancelled, A1 Subgroup Cancelled, Rho(D) Tech Interpret Cancelled, Antibody Screen NEGATIVE, Crossmatch See Detail 05/31/25 21:48: Sodium 109 L* 06/01/25 00:09: Hgb 6.6 L 06/01/25 04:58: WBC 8.6, RBC 2.70 L, Hgb 8.0 L, Hct 21.6 L, MCV 80.0 L, MCH 29.6, MCHC 37.0 H, RDW Std Deviation 38.1, RDW Coeff of Cathleen 13.3, Plt Count 178, MPV 10.0, Immature Gran % (Auto) 0.900, N eut % (Auto) 72.0 H, Lymph % (Auto) 14.4 L, Windsor % (Auto) 11.4 H, Eos % (Auto) 0.9, Baso % (Auto) 0.4, Absolute Neuts (auto) 6.2, Absolute Lymphs (auto) 1.23, Nucleated RBC % 0, Sodium 109 L*, Potassium 3.8, Chloride 77 L, Carbon Dioxide 20.6 L, Anion Gap 11, BUN 21 H, Creatinine 0.96, Estim Creat Clear Calc 39.95 L, Est GFR (MDRD) Non-Af 61, BUN/Creatinine Ratio 21.7 H, Glucose 88, Calcium 8.3, Phosphorus 2.8, Magnesium 1.7, Total Bilirubin 0.95, AST 27, ALT 16, Alkaline Phosphatase 59, T otal Protein 5.1 L, Albumin 3.4, Globulin 1.6 L, Albumin/Globulin Ratio 2.1 06/01/25 09:34: Hgb 7.9 L 06/01/25 11:13: Ur Random Sodium 23 Imaging Radiology Impression Echocardiogram 05/29/25 16:58 Interpretation Summary Normal LV size. Left ventricular sy (more content not included)... Normal [facility] MR/OP.PROVATon 06-01-2025 [facility] Medical Records Department [address] [place] [address] Provation Physician Letter MR#: [id number] Acct: [id number] Name: ALVARADO COHEN CALLI Rep #: [id number] : 1945 79 From: Juan Manuel Valdovinos DO PCP: Dr. Glenny Luque MD Status:ADM IN 06/01/2025 Glenny uLque [address] [place] [address] Re : Upper GI endoscopy procedure for Alvarado Cohen Dear Dr. Luque This procedure was performed on Sunday, June 01, 2025. My impressions and recommendations are as follows: Impressions : - Normal esophagus. - No gross lesions in the entire stomach. - Oozing duodenal ulcers with no stigmata of bleeding. Biopsied. 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 Treated with a heater probe. - A few non-bleeding angiodysplastic lesions in the jejunum. Treated with a heater probe. Recommendations : - Return patient to [facility] for [facility] care. - Resume regular diet today. - Continue present medications. - The patient is not currently taking anticoagulant or antiplatelet agents except for aspirin and NSAID medication. - Await pathology results. - Repeat upper endoscopy in 4 months for surveillance. - Outpatient capsule endoscopy My findings are described in the full procedure note, which is enclosed. If I can be of further assistance, please feel free to contact me at . Sincerely, Juan Manuel Valdovinos DO 06/01/2025 4:28:05 PM This report has been signed electronically. 06/01/25 1628 Date Juan Manuel Valdovinos DO Cosigner Signature: Date (if indicated) CC: Dr. Nora Govea DO; Dr. Porfirio Mei MD; Dr. Tiffanie Govea DO; Dr. Glenny Luque MD; Dr. Glenny Wetzel DO; Dr. Conchita Burns MD Date Dictated: 06/01/25 1541 Date Transcribed: Accounts Payable Clerk: RF Signed [facility] MR/POSTOP.ANEon 06-01-2025 MR/POSTOP.[facility] Medical Records Department [address] [place] [address] Anesthesia Postop Eval I 06/01/251621 MR#: [id number] Acct: [id number] Name: ALVARADO COHEN Rep #: [id number] : 1945 79 From: Narendra Galeano CRNA PCP: Dr. Glenny Luque MD Status:ADM IN Y Race: C Location: [place] [address] Anesthesia: Postop Eval I Current Vital Signs Temperature: 98.9 F Pulse Rate: 60 Blood Pressure: 144/37 Respiratory Rate: 15 Pulse Ox: 97 Oxygen Delivery Method: Room Air Assessment Airway patent: Yes Spontaneous unlabored respirations: Yes Mental status: Asleep nausea: No Vomiting: No Anesthesia Complication: No Fluid Hydration Crystalloid volume administer (ml): 400 Total IV fluid infused: 400 Progress Note Anesthesia document: Postop Eval 1 completed: Yes 06/01/25 162 Date Narendra Galeano CASING MAN Cosigner Signature: Date CC: Signed [facility] [id number] 06-01-2025 MR/POST[address] Medical Records Department [address] [place] [address] Anesthesia Postop Eval II 06/01/252027 MR#: [id number] Acct: [id number] Name: ALVARADO COHEN Rep #: [id number] : 1945 79 From: Jaspreet Fraire MD PCP: Dr. Glenny Luque MD Status:ADM IN Y Race: C Location: [place] [address] Anesthesia Postop Eval I Sum Postop Eval Completion status Anesthesia document: Postop Eval 1 completed: Yes Anesthesia Postop Eval I Summary Anesthesia Postop Eval I Summary: Anesthesia Postop Eval I: Assessment Summary Airway patent Yes 06/01/25 16:23 CASING MAN.APAT Spontaneous unlabored Yes 06/01/25 16:23 CASING MAN.APAT respirations Mental status Asleep 06/01/25 16:23 CASING MAN.APAT nausea No 06/01/25 16:23 CASING MAN.APAT Vomiting No 06/01/25 16:23 CASING MAN.APAT Anesthesia Postop Eval I: Fluid Summary Crystalloid volume administer 400 06/01/25 16:23 CASING MAN.APAT (ml) Colloids volume administered ( ml) Blood Product volume administered (ml) Total IV fluid infused 400 06/01/25 16:23 CASING MAN.APAT Anesthesia Postop Eval I: Summary Notes Anesthesia Complication No 06/01/25 16:23 CASING MAN.APAT Anesthesia Complication Comment: Post-operative progress note Anesthesia: Postop Eval II Evaluation Mental status: Awake and Calm Pain Level: 0 nausea: No Vomiting: No Complications Anesthesia Complication: No 06/01/252032 Date Jaspreet Fraire MD Cosigner Signature: Date CC: Signed Normal [facility] Magnesiumon 06-01-2025 Magnesium [Mass/Vol] 1.7 mg/dL Normal 1.5-2.2 [facility] Comment on above: Performed By: #### L 501.4021, L100.0500, L503.7505, L500.4053 #### [facility] Laboratory [address] [place], [place], [id number] Magnesium measurement (mass/ volume)Ordered By: Nora Govea on 06-01-2025 Magnesium (Unsp spec) [Mass/Vol] 1.7 mg/dL 1.5-2.2 [facility] Phosphoruson 06-01-2025 Phosphate [Mass/Vol] 2.8 mg/dL Normal 2.7-4.5 [facility] Comment on above: Performed By: #### L 500.2500 #### [facility] [address] [place], [place], [address] Surgery Specimen Level Alin 06-01-2025 Surgery Specimen Level IV Patient Age/Sex Location Account Attending Physician ALVARADO COHEN 79/F [facility] [id number] Dr. Tiffanie Govea, Specimen: [id number] Received: 06/01/25 Status: JAJA William Num: [id number] Spec Type: EGD BIOPSY Subm Dr: Juan Manuel Valdovinos DO HEADER OPERATION: EGD with biopsy and electrocautery PRE-OP DIAGNOSIS: GI bleed, acute anemia TISSUE SUBMITTED: A- Duodenum biopsy MICROSCOPIC DIAGNOSIS A. 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 - Negative for increased intraepithelial lymphocytes. MICROSCOPIC DESCRIPTION Slides are reviewed. GROSS DESCRIPTION A. Received in fixative is one container labeled with the patient's name and designated Duodenum biopsy. The specimen consists of one irregular fragment of light brian soft tissue that measures 0.4 cm. The specimen is totally submitted in one cassette. MA 06/02/2025 CPT:37311 Patient Age/Sex Location Account Attending Physician ALVARADO COHEN 79/F [facility] [id number] Dr. Tiffanie Govea DO Signed (signature on file) Dr. Faviola Lopez MD 06/07/25 0932 Normal [facility] Comment on above: Performed By: #### L 500.2500 #### [facility] Laboratory [address] [place], [place], [id number] Urine Sodiumon 06-01-2025 Sodium (U) [Moles/Vol] 23 mmol/L Normal Not Establ. [facility] Comment on above: Performed By: #### L 100.0500, L500.2500 #### [facility] [address] [place], [place], [address] Urine sodium measurement (mo les/volume)Ordered By: Nora Govea on 06-01-2025 Sodium (U) [Moles/Vol] 23 mmol/L [facility] 05-31-2025 Normal [facility] Comment on above: Result Comment: [id number] [facility] TRANSFUSED 06/01/25 0058 Performed By: #### L 500.2500 #### [facility] [address] [place], [place], [address] Result Comment: [id number] [facility] TRANSFUSED 06/03/25 1321 [id number] [facility] TRANSFUSED 06/03/25 1017 Performed By: #### L 9100.0100 #### [facility] [address] [place], [address] Basic Metabolic Profile (BMP )on 05-31-2025 BUN/CRE 21.1 RATIO High 10-20 [facility] Comment on above: Performed By: #### L 501.4021, L100.0500, L503.7505, L500.4050 #### [facility] [address] [place], [address] Calcium [Mass/Vol] 8.1 mg/dL Normal 7.6-11.0 [facility] Comment on above: Performed By: #### L 501.4021, L100.0500, L503.7505, L500.4050 #### [facility] [address] [place], [address] Chloride [Moles/Vol] 77 mmol/L Low 98-108 [facility] Comment on above: Performed By: #### L 501.4021, L100.0500, L503.7505, L500.4050 #### [facility] [address] [place], [address] CO2 [Moles/Vol] 21.5 mmol/L Normal 21.0-32.0 [facility] Comment on above: Performed By: #### L 501.4021, L100.0500, L503.7505, L500.4050 #### [facility] [address] [place], [address] Creatinine [Mass/Vol] 0.85 mg/dL Normal 0.70-1.20 [facility] Comment on above: Performed By: #### L 501.4021, L100.0500, L503.7505, L500.4050 #### [facility] [address] [place], [address] ECRCL 45.12 ml/min Low 50-250 [facility] Comment on above: Performed By: #### L 501.4021, L100.0500, L503.7505, L500.4050 #### [facility] [address] [place], [address] GAP 12 Normal 5-15 [facility] Comment on above: Performed By: #### L 501.4021, L100.0500, L503.7505, L500.4050 #### [facility] [address] [place], [address] GFR/1.73 sq M.predicted among non-blacks MDRD (S/P/Bld) [Vol rate/Area] 71 mL/min/{1.73_m2} Normal >60 [facility] Comment on above: Result Comment: mL/m in/1.73m2 CKD-EPI Creatinine Equation (2020) Performed By: #### L 501.4021, L100.0500, L503.7505, L500.4050 #### [facility] [address] [place], [address] Glucose [Mass/Vol] 122 mg/dL High 70-99 [facility] Comment on above: Performed By: #### L 501.4021, L100.0500, L503.7505, L500.4050 #### [facility] [address] [place], [address] Potassium [Moles/Vol] 3.3 mmol/L Normal 3.3-5.1 [facility] Comment on above: Performed By: #### L 501.4021, L100.0500, L503.7505, L500.4050 #### [facility] [address] [place], [address] Sodium [Moles/Vol] 110 mmol/L Invalid Interpretation Code 133-145 [facility] Comment on above: Result Comment: Crit ical Result(s) Called at 0936: by: [facility]. ??Results read back by same. Performed By: #### L 501.4021, L100.0500, L503.7505, L500.4050 #### [facility] [address] [place], [address] Urea nitrogen [Mass/Vol] 18 mg/dL Normal 4-19 [facility] Comment on above: Performed By: #### L 501.4021, L100.0500, L503.7505, L500.4050 #### [facility] [address] [place], [address] Bilirubin directOrdered By: Tiffanie Govea on 05-31-2025 Bilirubin.direct [Mass/Vol] 0.17 mg/dL Normal 0.00-0.30 [facility] Comment on above: Performed By: #### L 501.4021, L100.0500, L503.7505, L500.4050 #### [facility] [address] [place], [address] CBC W/Diff, Automatedon 05-05 MCH (RBC) [Entitic mass] 28.6 pg Normal 27.0-32.0 [facility] Comment on above: Performed By: #### L 501.4021, L100.0500, L503.7505, L500.4050 #### [facility] [address] [place], [address] Hemoglobin (Bld) [Mass/Vol] 7.5 g/dL Low 12.0-15.0 [facility] Comment on above: Performed By: #### L 501.4021, L100.0500, L503.7505, L500.4050 #### [facility] [address] [place], [address] MCHC (RBC) [Mass/Vol] 35.8 g/dL Normal 32-36 [facility] Comment on above: Performed By: #### L 501.4021, L100.0500, L503.7505, L500.4050 #### [facility] [address] [place], [address] Absolute Lymph 0.98 X10 3/uL Normal 0.83-4.51 [facility] Comment on above: Performed By: #### L 501.4021, L100.0500, L503.7505, L500.4050 #### [facility] [address] [place], [address] Absolute Neut 5.9 X10 3/uL Normal 2.0-7.7 [facility] Comment on above: Performed By: #### L 501.4021, L100.0500, L503.7505, L500.4050 #### [facility] [address] [place], [address] Basophils/100 WBC (Bld) 0.3 % Normal 0-1 [facility] Comment on above: Performed By: #### L 501.4021, L100.0500, L503.7505, L500.4050 #### [facility] [address] [place], [address] Eosinophils/100 WBC (Bld) 0.9 % Normal 0-5 [facility] Comment on above: Performed By: #### L 501.4021, L100.0500, L503.7505, L500.4050 #### [facility] [address] [place], [address] Erythrocyte distribution width (RBC) [Ratio] 13.0 % Normal 11.6-14.6 [facility] Comment on above: Performed By: #### L 501.4021, L100.0500, L503.7505, L500.4050 #### [facility] [address] [place], [address] Hematocrit (Bld) [Volume fraction] 20.9 % Low 37-47 [facility] Comment on above: Performed By: #### L 501.4021, L100.0500, L503.7505, L500.4050 #### [facility] [address] [place], [address] IG% 0.800 Normal 0.0-0.9 [facility] Comment on above: Result Comment: IG% - Immature Granulocytes (promyelocytes, myelocytes and metamyelocytes) > 1% indicates that a LEFT SHIFT is Present. Performed By: #### L 501.4021, L100.0500, L503.7505, L500.4050 #### [facility] [address] [place], [address] Lymphocytes/100 WBC (Bld) 12.5 % Low 19-41 [facility] Comment on above: Performed By: #### L 501.4021, L100.0500, L503.7505, L500.4050 #### [facility] [address] [place], [address] MCV (RBC) [Entitic vol] 79.8 fL Low 81-99 [facility] Comment on above: Performed By: #### L 501.4021, L100.0500, L503.7505, L500.4050 #### [facility] [address] [place], [address] Monocytes/100 WBC (Bld) 10.2 % High 0-10 [facility] Comment on above: Performed By: #### L 501.4021, L100.0500, L503.7505, L500.4050 #### [facility] [address] [place], [address] Neutrophils/100 WBC (Bld) 75.3 % High 47-70 [facility] Comment on above: Performed By: #### L 501.4021, L100.0500, L503.7505, L500.4050 #### [facility] [address] [place], [address] Nucleated RBC (Bld) [#/Vol] 0 10*3/uL Normal 0-5 [facility] Comment on above: Performed By: #### L 501.4021, L100.0500, L503.7505, L500.4050 #### [facility] [address] [place], [address] Platelet mean volume (Bld) [Entitic vol] 9.8 fL Normal 6.2-12.0 [facility] Comment on above: Performed By: #### L 501.4021, L100.0500, L503.7505, L500.4050 #### [facility] [address] [place], [address] Platelets (Bld) [#/Vol] 211 10*3/uL Normal 150-450 [facility] Comment on above: Performed By: #### L 501.4021, L100.0500, L503.7505, L500.4050 #### [facility] [address] [place], [address] RBC (Bld) [#/Vol] 2.62 10*6/uL Low 4.2-5.4 [facility] Comment on above: Performed By: #### L 501.4021, L100.0500, L503.7505, L500.4050 #### [facility] [address] [place], [address] RDW SD 37.2 fl Normal 35.1-43.9 [facility] Comment on above: Performed By: #### L 501.4021, L100.0500, L503.7505, L500.4050 #### [facility] [address] [place], [address] WBC (Bld) [#/Vol] 7.8 10*3/uL Normal 4.4-11.0 [facility] Comment on above: Performed By: #### L 501.4021, L100.0500, L503.7505, L500.4050 #### [facility] [address] [place], [address] Chest without Contraston Chest without Contrast [facility] Imaging Services [address] [place] [address] Chest without Contrast MR#: [id number] Acct: [id number] Name: ALVARADO COHEN Rep #: [id number] : 1945 F 79 From: iLt Richards MD PCP: Dr. Glenny Luque MD Status: ADM IN Study: Chest without Contrast Date of Exam: 05/31/25 Exam# [id number] Ordering Dr: Tiffanie Govea DO PROCEDURE: CT chest without contrast 05/31/2025 REASON FOR EXAM: HYPONATREMIA WITH TOBACCO ABUSE HISTORY TECHNIQUE: Chest CT without contrast. Coronal and Sagittal reconstruction series were provided. One or more dose reduction techniques were used (e.g., Automated exposure control, adjustment of the mA and/or kV according to patient size, use of iterative reconstruction technique RADIATION DOSE SUMMARY: CTDlvol: 6.19 mGy DLP: 230.31 mGycm COMPARISON: Previous plain films FINDINGS: Lung windows show underlying emphysema with chronic interstitial changes in both lung cabrera. There is a free-flowing left pleural effusion with associated atelectasis, and perhaps associated infiltrate as well. Follow-up is recommended to ensure complete resolution. There is a smaller free-flowing right pleural effusion with associated atelectasis. There is no suspicious noncalcified mass or nodule. Thyroid gland is enlarged with multiple low-density nodules suggestive of goiter. A dedicated thyroid ultrasound may be of benefit for further evaluation. No suspicious axillary, mediastinal or perihilar lymph nodes there are subcentimeter in short axis dimension mediastinal lymph nodes which may be reactive. Peripheral calcifications in the thoracic aorta without aneurysm. Dense coronary artery calcifications are noted. Limited cuts through the upper abdomen show small hiatal hernia. Bony structures show degenerative change CT/Chest without Contrast IMPRESSION: Coronary artery calcification (CAC) is is present Underlying emphysema with chronic interstitial changes. There are free-flowing bilateral pleural effusions, vrbt-[id number]-apqd-[id number] ght with associated atelectasis and perhaps associated infiltrate in the left lung base. Follow-up recommended to ensure resolution No suspicious noncalcified mass or nodule No suspicious enlarged axillary, mediastinal or perihilar lymph nodes Enlarged thyroid with low-density nodules suggesting goiter Degenerative bony changes Reading Location: [id number] CC: Dr. Tiffaine Govea DO; Dr. Glenny Luque MD Accounts Payable Clerk: Signed Normal [facility] Echocardiogram study reportO rdered By: Lisandro Bernardo on 05-31-2025 Study report [facility] [address] [place] [address] Echo Complete 05/31/25 1045 MR#: [id number] Acct: [id number] Name: ALVARADO COHEN Rep #:[id number] : 1945 79 From: Lisandro Muñoz Attending Dr: DO Bigg Carver tatus: ADM IN Ordering Dr: Conchita Burns MD Date: Location: PCU Sex: F C Admitted: 05/29/25 Reason For Study Reason For Study: SOB Procedure This was a 2D Doppler, Color Flow transthoracic echocardiogram. Exam performed portable in ICU/CCU. Left Ventricle Normal LV size. Left ventricular systolic function is normal. The left ventricular ejection fraction is 65 %. No regional wall motion abnormalities noted. Right Ventricle Normal RV size. Normal systolic function. Atria Normal left atrium. Normal right atrium. Mitral Valve Bileaflet diffuse mitral valve thickening. Moderate (2+) eccentric mitral valve insufficiency. Tricuspid Valve Normal tricuspid valve. Mild to moderate (1-2+) tricuspid valve insufficiency. Pulmonary artery systolic pressure is 52 mmHg. Moderate pulmonary hypertension. Aortic Valve Trisinus/trileaflet aortic valve. Pulmonic Valve Normal pulmonic valve. Great Vessels Normal aortic root. The pulmonary artery is normal size. Inferior vena cava collapse with respiration. Pericardium/Pleural No pericardial effusion. MMode/2D Measurements & Calculations LVIDd: 4.6 cm IVSd: 1.1 cm LVOT diam: 1.8 cm LVIDs: 2.4 cm LVPWd: 1.1 cm LVOT area: 2.7 cm2 RVDd: 3.4 cm FS: 48.7 % asc Aorta Diam: 2.3 cm LAV(MOD-bp): 54.6 ml LVAd ap4: 27.7 cm2 LAV(MOD-bp) Indexed: 34.9 ml/m2 LVLd ap4: 7.4 cm LAV(MOD-sp2): 72.1 ml EDV(MOD-sp4): 86.1 ml LAV(MOD-sp4): 40.2 ml EDV(sp4-el): 87.7 ml LVAs ap4: 15.5 cm2 LVLs ap4: 6.2 cm ESV(MOD-sp4): 32.9 ml ESV(sp4-el): 32.8 ml EF(MOD-sp4): 61.8 % EF(sp4-el): 62.6 % LVAd ap2: 27.6 cm2 SV(MOD-sp4): 53.2 ml SV(MOD-sp2): 56.2 ml LVLd ap2: 7.5 cm SI(MOD-sp4): 33.9 ml/m2 SI(MOD-sp2): 35.8 ml/m2 EDV(MOD-sp2): 86.6 ml EDV(sp2-el): 86.6 ml LVAs ap2: 14.6 cm2 LVLs ap2: 6.3 cm ESV(MOD-sp2): 30.5 ml ESV(sp2-el): 28.8 ml EF(MOD-sp2): 64.8 % SV(sp4-el): 54.9 ml LA dimension(2D): 3.8 cm LA A4 area: 16.5 cm2 RA A4 area: 13.9 cm2 TAPSE: 2.2 cm Time Measurements MV dec time: 0.15 sec Doppler Measurements & Calculations MV E max sha: 127.3 cm/sec Lat Peak E' Sha: 6.8 cm/sec Med Peak E' Sha: 6.3 cm/sec MV A max sha: 71.1 cm/sec E/E' lat: 18.6 E/E' med: 20.2 MV E/A: 1.8 Ao V2 max: 148.2 cm/sec LV V1 max: 129.7 cm/sec MV dec slope: 873.5 cm/sec2 Ao max P.8 mmHg LV V1 max P.7 mmHg Ao V2 mean: 107.5 cm/sec LV V1 mean P.3 mmHg Ao mean P.0 mmHg LV V1 mean: 101.3 cm/sec Ao V2 VTI: 38.1 cm LV V1 VTI: 36.7 cm AV (velocity ratio): 0.96 MOSES(I,D): 2.6 cm2 MOSES(V,D): 2.3 cm2 SV(LVOT): 97.5 ml PA V2 max: 88.9 cm/sec TR max sha: 348.4 cm/sec TR max P.6 mmHg ECHO/Echo Complete Interpretation Summary Normal LV size. Left ventricular systolic function is normal. The left ventricular ejection fraction is 65 %. Moderate (2+) eccentric mitral valve insufficiency. Pulmonary artery systolic pressure is 52 mmHg. Moderate pulmonary hypertension. Ordering Physician: Conchita Burns Referring Physician: Glenny Luque Performed By: Evelyn Darby RDCS 05/31/25 1635 Date _ Lisandro Bernardo MD CC: Dr. Tiffanie Govea DO; Dr. Glenny Luque MD; Dr. Conchita Burns MD ~ Date Dictated: 05/31/25 1045 Date Transcribed: 05/31/25 1635 Accounts Payable Clerk: Signed [facility] Work Phone: [phone] Electrocardiogram reportOrde red By: Lisandro Bernardo on 05-31-2025 EKG study [facility] [address] [place] [address] 12 Lead EKG 05/29/25 1328 MR#: [id number] Acct: [id number] Name: ALVARADO COHEN Rep #:[id number] : 1945 79 From: Lisandro Bernardo MD Attending Dr: Dr. Tiffanie Govea DO S tatus: ADM IN Ordering Dr: Del Leyva DO Date: 0 05/29/25 Location: ICU Sex: F C Admitted: 05/29/25 Test Reason : HTN Blood Pressure : */* mmHG Vent. Rate : 65 BPM Atrial Rate : 65 BPM P-R Int : 116 ms QRS Dur : 88 ms QT Int : 430 ms P-R-T Axes : 88 85 66 degrees QTcB Int : 447 ms Normal sinus rhythm Septal infarct , age undetermined Abnormal ECG Confirmed by LISANDRO BERNARDO MD ([id number]), industrial editor TORRI BOONE ([id number]) on 05/31/2025 7:31:47 AM Referred By: Confirmed By: LISANDRO BERNARDO MD 05/31/25730 Date _ Lisandro Bernardo MD CC: Dr. Tiffanie Govea DO; Dr. Glenny Luque MD; Dr. Del Leyva DO ~ Signed [facility] Work Phone: [phone] Hemoglobinon 05-31-2025 Hemoglobin (Bld) [Mass/Vol] 7.3 g/dL Low 12.0-15.0 [facility] Comment on above: Performed By: #### L 501.4021, L100.0500, L503.7505, L500.4050 #### [facility] [address] [place], [address] Immature platelet percentage Ordered By: Tiffanie Govea on 05-31-2025 Platelets reticulated/100 platelets Auto (Bld) 7.8 % 1.0-7.9 [facility] Comment on above: Low PLT + Low IPF lazo ggest a bone marrow production disorderLow PLT + high IPF suggests peripheral destruction(e.g.ITP, TTP, HIT, DIC, autoimmune) or bone marrow recoveryTrending of serial IPF measurements is recommended when evaluating for bone marrow responesValue above normal range indicates an increase in RBC cellular response from bone marrow. Iron measurement (mass/mass) Ordered By: Tiffanie Govea on 05-31-2025 Iron (Unsp spec) [Mass/Mass] 66 ug/dL 50-170 [facility] Iron+Iron Binding Capacityon 05-31-2025 Iron [Mass/Vol] 66 ug/dL Normal 50-170 [facility] Comment on above: Performed By: #### L 501.4021, L100.0500, L503.7505, L500.4050 #### [facility] [address] [place], [address] IRON SATURATION 21.0 Normal 13-59 [facility] Comment on above: Performed By: #### L 501.4021, L100.0500, L503.7505, L500.4050 #### [facility] [address] [place], [address] TIBC 306 ug/dL Normal 250-450 [facility] Comment on above: Performed By: #### L 501.4021, L100.0500, L503.7505, L500.4050 #### [facility] [address] [place], [address] UIBC 240 ug/dL Normal 228-428 [facility] Comment on above: Performed By: #### L 501.4021, L100.0500, L503.7505, L500.4050 #### [facility] [address] [place], [address] Liver Profileon 05-31-2025 Albumin [Mass/Vol] 3.5 g/dL Normal 3.4-4.8 [facility] Comment on above: Performed By: #### L 501.4021, L100.0500, L503.7505, L500.4050 #### [facility] [address] [place], [address] ALK PHOS 63 U/L Normal 35-104 [facility] Comment on above: Performed By: #### L 501.4021, L100.0500, L503.7505, L500.4050 #### [facility] [address] [place], [address] ALT [Catalytic activity/Vol] 18 U/L Normal <=34 [facility] Comment on above: Performed By: #### L 501.4021, L100.0500, L503.7505, L500.4050 #### [facility] [address] [place], [address] AST [Catalytic activity/Vol] 25 U/L Normal <=31 [facility] Comment on above: Performed By: #### L 501.4021, L100.0500, L503.7505, L500.4050 #### [facility] [address] [place], [address] Bilirubin [Mass/Vol] 0.33 mg/dL Normal 0.00-1.30 [facility] Comment on above: Performed By: #### L 501.4021, L100.0500, L503.7505, L500.4050 #### [facility] [address] [place], [address] Globulin (S) [Mass/Vol] 1.8 g/dL Low 2.2-4.2 [facility] Comment on above: Performed By: #### L 501.4021, L100.0500, L503.7505, L500.4050 #### [facility] [address] [place], [address] T PROT 5.3 g/dL Low 5.9-8.4 [facility] Comment on above: Performed By: #### L 501.4021, L100.0500, L503.7505, L500.4050 #### [facility] [address] [place], [address] Magnesiumon 05-31-2025 Magnesium [Mass/Vol] 1.8 mg/dL Normal 1.5-2.2 [facility] Comment on above: Performed By: #### L 501.4021, L100.0500, L503.7505, L500.4050 #### [facility] [address] [place], [address] No Panel InformationOrdered By: Tiffanie Govea on 05-31-2025 Unsaturated Iron Binding Capacity 240 ug/dL 228-428 [facility] Renal Artery Duplex Ultrasou ndon 05-31-2025 Renal Artery Duplex Ultrasound [facility] [address] [place] [address] Renal Artery Duplex Ultrasound 06/01/25 0809 MR#: [id number] Acct: [id number] Name: ALVARADO COHEN CALLI Rep #: [id number] : 1945 79 From: Porfirio Mei MD Attending Dr: Dr. Tiffanie Govea DO Status: ADM I N Ordering Dr: Nora Govea DO Date: 05/31/25 Location: U Sex: F C Admitted: 05/29/25 Reason For Study Reason For Study: Uncontrolled HTN Right Renal Artery Left Renal Artery Right renal artery ostium 150.6/14.9 Left renal artery ostium 159/26.3 RSV/EDV. PSV/EDV. Right renal artery proximal 69.4/12.3 Left renal artery proximal PSV/EDV PSV/EDV. 154.4/23.9 . Right renal artery mid 62.5/20.5 PSV/EDV. Left renal artery mid 173.8/26.3 Right renal artery distal 46/15 PSV/EDV. PSV/EDV . Unable to demonstrate velocities as Left renal artery distal 127.6/15.3 compared to 05/20/2024. Hx duplicator RRA PSV/EDV. on angiogram 10/07/2024. Left RAR 1.86. Right RAR 1.61. Left Renal Parenchyma Right Renal Parenchyma Left upper pole medulla 30.2/8.1 Upper Pole Medula 14.5/4.7 PSV/EDV. PSV/EDV . Right upper pole medulla EDR 0.3 . Left upper pole medulla EDR 0.3 . Right upper pole medulla R.I. 0.68 . Left upper pole medulla R.I. 0.73 . Upper Norman Cortx 8.1/4.6 PSV/EDV. UP Cortex 15.5/4.4 PSV/EDV. Right upper pole cortex EDR 0.6 . Left upper pole cortex EDR 0.3 . Right upper pole cortex R.I. 0.43 . Left upper pole cortex R.I. 0.71 . Right lower Pole medulla 20/4.7 PSV/EDV . Left lower Pole medulla 24.1/6.3 Right lower pole medulla EDR 0.2 . PSV/EDV . Right lower pole medulla R.I. 0.77 . Left lower pole medulla EDR 0.3 . Lower Pole Cortex 10.2/5.3 PSV/EDV. Left lower pole medulla R.I. 0.74 . Right lower pole cortex EDR 0.5 . Lower Pole Cortx 13/5.6 PSV/EDV. Right lower pole cortex R.I. 0.48 . Left lower pole cortex EDR 0.57 . Right Renal Hilar Left Renal Hilar Right Hilar avg 50.2/9.2 PSV/EDV. LT Hilar avg 48.6/10.2 PSV/EDV . Right hilar acceleration time 40 m/sec. Left hilar acceleration time 10 m/sec. Right Renal Dimensions Left Renal Dimensions Right kidney size 8.17 cm . Left kidney size 10.29 cm . Right cortical dimension 1.23 cm . Left cortical dimension 1.54 cm . Aorta Proximal abdominal aorta 1.11 x 1.11 cm . Proximal abdominal aorta peak systolic velocity is 93.5 cm/sec . Distal abdominal aorta 0.93 x 0.89 cm . Distal abdominal aorta peak systolic velocity is 183 cm/sec . VL/Renal Artery Duplex Ultrasound Interpretation Summary Right renal artery patent with normal velocities and no evidence of stenosis. Left renal artery patent with normal velocities and no evidence of stenosis. Right renal vein patent. Left renal vein patent. Right kidney diminished in size. Left kidney normal in size. Previously visualized right renal stenosis not identified. 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 Ordering Physician: Nora Govea Referring Physician: MD Glenny Luque Performed By: Estela Tillman RVT 06/02/25808 Date Porfirio Mei MD CC: Dr. Nora Govea DO; Dr. Tiffanie Govea DO; Dr. Glenny Luque MD Date Dictated: 06/01/25808 Date Transcribed: 06/02/25808 Accounts Payable Clerk: Signed Normal [facility] Retic Panelon 05-31-2025 IM RET FRACTION 5.70 Normal 3.00-15.90 [facility] Comment on above: Performed By: #### L 501.4021, L100.0500, L503.7505, L500.4050 #### [facility] [address] [place], [place], [address] IPF 7.8 Normal 1.0-7.9 [facility] Comment on above: Result Comment: Low PLT + Low IPF suggest a bone marrow production disorder Low PLT + high IPF suggests peripheral destruction (e.g.ITP, TTP, HIT, DIC, autoimmune) or bone marrow recovery Trending of serial IPF measurements is recommended when evaluating for bone marrow respones Value above normal range indicates an increase in RBC cellular response from bone marrow. Performed By: #### L 501.4021, L100.0500, L503.7505, L500.4050 #### [facility] [address] [place], [address] RET-HE 33.9 pg Normal 30-35 [facility] Comment on above: Performed By: #### L 501.4021, L100.0500, L503.7505, L500.4050 #### [facility] [address] [place], [address] Retic Count 3.16 High 0.5-1.5 [facility] Comment on above: Performed By: #### L 501.4021, L100.0500, L503.7505, L500.4050 #### [facility] [address] [place], [address] Reticulocyte hemoglobin equi valent (RET-He) measurementOrdered By: Tiffanie Govea on 05-31-2025 Hemoglobin (Reticulocytes) [Entitic mass] 33.9 pg 30-35 [facility] Reticulocytes Auto (Bld) [#/ Vol]Ordered By: Tiffanie Govea on 05-31-2025 Reticulocytes/100 RBC (Bld) 3.16 % High 0.5-1.5 [facility] Serum or plasma ferritin reina surement (mass/volume)Ordered By: Tiffanie Govea on 05-31-2025 Ferritin [Mass/Vol] 48 ng/mL Normal 22-378 [facility] Comment on above: Performed By: #### L 501.4021, L100.0500, L503.7505, L500.4050 #### [facility] [address] [place], [address] Serum or plasma iron saturat ion measurement (mass fraction)Ordered By: Tiffanie Govea on 05-31-2025 Iron saturation [Mass fraction] 21.0 % 13-59 [facility] Sodium Levelon 05-31-2025 Sodium [Moles/Vol] 109 mmol/L Invalid Interpretation Code [address] [place] [address] Comment on above: Result Comment: Crit ical Result(s) Called MGROVE at: 2224 by: ART??Results read back by same. Performed By: #### L 501.4021, L100.0500, L503.7505, L500.4050 #### [facility] [address] [place], [address] Sodium [Moles/Vol] 109 mmol/L Invalid Interpretation Code [address] [place] [address] Comment on above: Result Comment: Crit ical Result(s) Called HSMUCKER at: 1714 by: ART??Results read back by same. Performed By: #### L 501.4021, L100.0500, L503.7505, L500.4050 #### [facility] [address] [place], [address] Sodium [Moles/Vol] 110 mmol/L Invalid Interpretation Code [address] [place] [address] Comment on above: Result Comment: Crit ical Result(s) Called at: 0310 by:??SHILOH OLIVERAN LUCERO SELBY Results read back by same. Performed By: #### L 501.4021, L100.0500, L503.7505, L500.4050 #### [facility] [address] [place], [address] Type AND Screenon 05-31-2025 ABO and Rh group Nom (Bld) Blood group A Rh(D) positive Normal [facility] Comment on above: Order Comment: A Performed By: #### L 9100.0100 #### [facility] [address] [place], [address] Basic Metabolic Profile (BMP )on 05-30-2025 BUN/CRE 22.8 RATIO High 10-20 [facility] Comment on above: Performed By: #### L 500.2500 #### [facility] [address] [place], [address] Calcium [Mass/Vol] 7.8 mg/dL Normal 7.6-11.0 [facility] Comment on above: Performed By: #### L 500.2500 #### [facility] [address] [place], [address] Chloride [Moles/Vol] 76 mmol/L Low 98-108 [facility] Comment on above: Performed By: #### L 500.2500 #### [facility] [address] [place], [address] CO2 [Moles/Vol] 22.6 mmol/L Normal 21.0-32.0 [facility] Comment on above: Performed By: #### L 500.2500 #### [facility] [address] [place], [address] Creatinine [Mass/Vol] 0.83 mg/dL Normal 0.70-1.20 [facility] Comment on above: Performed By: #### L 500.2500 #### [facility] [address] [place], [address] ECRCL 46.21 ml/min Low 50-250 [facility] Comment on above: Performed By: #### L 500.2500 #### [facility] [address] [place], [address] GAP 11 Normal 5-15 [facility] Comment on above: Performed By: #### L 500.2500 #### [facility] [address] [place], [address] GFR/1.73 sq M.predicted among non-blacks MDRD (S/P/Bld) [Vol rate/Area] 72 mL/min/{1.73_m2} Normal >60 [facility] Comment on above: Result Comment: mL/m in/1.73m2 CKD-EPI Creatinine Equation (2020) Performed By: #### L 500.2500 #### [facility] [address] [place], [address] Glucose [Mass/Vol] 95 mg/dL Normal 70-99 [facility] Comment on above: Performed By: #### L 500.2500 #### [facility] [address] [place], [address] Potassium [Moles/Vol] 3.0 mmol/L Low 3.3-5.1 [facility] Comment on above: Performed By: #### L 500.2500 #### [facility] [address] [place], [address] Sodium [Moles/Vol] 109 mmol/L Invalid Interpretation Code 133-145 [facility] Comment on above: Result Comment: Crit ical Result(s) Called at: by:??Results read back by same. Critical Result(s) Called at: by:??Results read back by same. Performed By: #### L 500.2500 #### [facility] [address] [place], [address] Urea nitrogen [Mass/Vol] 19 mg/dL Normal 4-19 [facility] Comment on above: Performed By: #### L 500.2500 #### [facility] [address] [place], [address] BUN Normal 4-19 [facility] Comment on above: Result Comment: DUPL ICATE ORDER Performed By: #### L 501.4021, L100.0500, L503.7505, L500.4050 #### [facility] [address] [place], [address] BUN/CRE Normal 10-20 [facility] Comment on above: Result Comment: DUPL ICATE ORDER Performed By: #### L 501.4021, L100.0500, L503.7505, L500.4050 #### [facility] [address] [place], [address] Calcium Normal 7.6-11.0 [facility] Comment on above: Result Comment: DUPL ICATE ORDER Performed By: #### L 501.4021, L100.0500, L503.7505, L500.4050 #### [facility] [address] [place], [address] CL Normal 98-108 [facility] Comment on above: Result Comment: DUPL ICATE ORDER Performed By: #### L 501.4021, L100.0500, L503.7505, L500.4050 #### [facility] [address] [place], [address] CO2 Normal 21.0-32.0 [facility] Comment on above: Result Comment: DUPL ICATE ORDER Performed By: #### L 501.4021, L100.0500, L503.7505, L500.4050 #### [facility] [address] [place], [address] CREAT,SERUM Normal 0.70-1.20 [facility] Comment on above: Result Comment: DUPL ICATE ORDER Performed By: #### L 501.4021, L100.0500, L503.7505, L500.4050 #### [facility] [address] [place], [address] eGFR Normal >60 [facility] Comment on above: Result Comment: DUPL ICATE ORDER Performed By: #### L 501.4021, L100.0500, L503.7505, L500.4050 #### [facility] [address] [place], [address] GAP Normal 5-15 [facility] Comment on above: Result Comment: DUPL ICATE ORDER Performed By: #### L 501.4021, L100.0500, L503.7505, L500.4050 #### [facility] [address] [place], [address] GLU Normal 70-99 [facility] Comment on above: Result Comment: DUPL ICATE ORDER Performed By: #### L 501.4021, L100.0500, L503.7505, L500.4050 #### [facility] [address] [place], [address] Potassium Normal 3.3-5.1 [facility] Comment on above: Result Comment: DUPL ICATE ORDER Performed By: #### L 501.4021, L100.0500, L503.7505, L500.4050 #### [facility] [address] [place], [address] Basic Metabolic Profile (BMP) Normal 133-145 [facility] Comment on above: Result Comment: DUPL ICATE ORDER Performed By: #### L 501.4021, L100.0500, L503.7505, L500.4050 #### [facility] [address] [place], [address] BUN/CRE 22.1 RATIO High 10-20 [facility] Comment on above: Performed By: #### L 501.4021, L100.0500, L503.7505, L500.4050 #### [facility] [address] [place], [address] Calcium [Mass/Vol] 8.3 mg/dL Normal 7.6-11.0 [facility] Comment on above: Performed By: #### L 501.4021, L100.0500, L503.7505, L500.4050 #### [facility] [address] [place], [address] Chloride [Moles/Vol] 73 mmol/L Invalid Interpretation Code 98-108 [facility] Comment on above: Result Comment: Crit ical Result(s) Called at: 0117 by: MANUELITO GALVEZ TO LEILA LINDSAY. ??Results read back by same. Performed By: #### L 501.4021, L100.0500, L503.7505, L500.4050 #### [facility] [address] [place], [address] CO2 [Moles/Vol] 22.6 mmol/L Normal 21.0-32.0 [facility] Comment on above: Performed By: #### L 501.4021, L100.0500, L503.7505, L500.4050 #### [facility] [address] [place], [address] Creatinine [Mass/Vol] 0.89 mg/dL Normal 0.70-1.20 [facility] Comment on above: Performed By: #### L 501.4021, L100.0500, L503.7505, L500.4050 #### [facility] [address] [place], [address] ECRCL 43.09 ml/min Low 50-250 [facility] Comment on above: Performed By: #### L 501.4021, L100.0500, L503.7505, L500.4050 #### [facility] [address] [place], [address] GAP 12 Normal 5-15 [facility] Comment on above: Performed By: #### L 501.4021, L100.0500, L503.7505, L500.4050 #### [facility] [address] [place], [address] GFR/1.73 sq M.predicted among non-blacks MDRD (S/P/Bld) [Vol rate/Area] 66 mL/min/{1.73_m2} Normal >60 [facility] Comment on above: Result Comment: mL/m in/1.73m2 CKD-EPI Creatinine Equation (2020) Performed By: #### L 501.4021, L100.0500, L503.7505, L500.4050 #### [facility] [address] [place], [address] Glucose [Mass/Vol] 107 mg/dL High 70-99 [facility] Comment on above: Performed By: #### L 501.4021, L100.0500, L503.7505, L500.4050 #### [facility] [address] [place], [address] Potassium [Moles/Vol] 3.1 mmol/L Low 3.3-5.1 [facility] Comment on above: Performed By: #### L 501.4021, L100.0500, L503.7505, L500.4050 #### [facility] [address] [place], [address] Sodium [Moles/Vol] 108 mmol/L Invalid Interpretation Code 133-145 [facility] Comment on above: Result Comment: Crit ical Result(s) Called at: 0117 by:??MANUELITO GALVEZ TO LEILA LINDSAY. Results read back by same. Performed By: #### L 501.4021, L100.0500, L503.7505, L500.4050 #### [facility] [address] [place], [address] Urea nitrogen [Mass/Vol] 20 mg/dL High 4-19 [facility] Comment on above: Performed By: #### L 501.4021, L100.0500, L503.7505, L500.4050 #### [facility] [address] [place], [address] CBC W/Diff, Automatedon 07-2 Absolute Lymph 0.96 X10 3/uL Normal 0.83-4.51 [facility] Comment on above: Performed By: #### L 500.2500 #### [facility] [address] [place], [address] Absolute Neut 6.1 X10 3/uL Normal 2.0-7.7 [facility] Comment on above: Performed By: #### L 500.2500 #### [facility] [address] [place], [address] Basophils/100 WBC (Bld) 0.4 % Normal 0-1 [facility] Comment on above: Performed By: #### L 500.2500 #### [facility] [address] [place], [address] Eosinophils/100 WBC (Bld) 0.9 % Normal 0-5 [facility] Comment on above: Performed By: #### L 500.2500 #### [facility] [address] [place], [address] Erythrocyte distribution width (RBC) [Ratio] 13.0 % Normal 11.6-14.6 [facility] Comment on above: Performed By: #### L 500.2500 #### [facility] [address] [place], [address] Hematocrit (Bld) [Volume fraction] 23.2 % Low 37-47 [facility] Comment on above: Performed By: #### L 500.2500 #### [facility] [address] [place], [address] Hemoglobin (Bld) [Mass/Vol] 8.6 g/dL Low 12.0-15.0 [facility] Comment on above: Performed By: #### L 500.2500 #### [facility] [address] [place], [address] IG% 0.400 Normal 0.0-0.9 [facility] Comment on above: Result Comment: IG% - Immature Granulocytes (promyelocytes, myelocytes and metamyelocytes) > 1% indicates that a LEFT SHIFT is Present. Performed By: #### L 500.2500 #### [facility] [address] [place], [address] Lymphocytes/100 WBC (Bld) 12.1 % Low 19-41 [facility] Comment on above: Performed By: #### L 500.2500 #### [facility] [address] [place], [address] MCH (RBC) [Entitic mass] 29.6 pg Normal 27.0-32.0 [facility] Comment on above: Performed By: #### L 500.2500 #### [facility] [address] [place] [address] [place], [address] MCHC (RBC) [Mass/Vol] 37.1 g/dL High 32-36 [facility] Comment on above: Performed By: #### L 500.2500 #### [facility] [place], [address] MCV (RBC) [Entitic vol] 79.7 fL Low 81-99 [facility] Comment on above: Performed By: #### L 500.2500 #### [facility] [address] [place], [address] Monocytes/100 WBC (Bld) 8.9 % Normal 0-10 [facility] Comment on above: Performed By: #### L 500.2500 #### [facility] [address] [place], [address] Neutrophils/100 WBC (Bld) 77.3 % High 47-70 [facility] Comment on above: Performed By: #### L 500.2500 #### [facility] [address] [place], [address] Nucleated RBC (Bld) [#/Vol] 0 10*3/uL Normal 0-5 [facility] Comment on above: Performed By: #### L 500.2500 #### [facility] [address] [place], [address] Platelet mean volume (Bld) [Entitic vol] 9.4 fL Normal 6.2-12.0 [facility] Comment on above: Performed By: #### L 500.2500 #### [facility] [address] [place], [address] Platelets (Bld) [#/Vol] 192 10*3/uL Normal 150-450 [facility] Comment on above: Performed By: #### L 500.2500 #### [facility] [address] [place], [address] RBC (Bld) [#/Vol] 2.91 10*6/uL Low 4.2-5.4 [facility] Comment on above: Performed By: #### L 500.2500 #### [facility] [address] [place], [address] RDW SD 37.2 fl Normal 35.1-43.9 [facility] Comment on above: Performed By: #### L 500.2500 #### [facility] [address] [place], [address] WBC (Bld) [#/Vol] 7.9 10*3/uL Normal 4.4-11.0 [facility] Comment on above: Performed By: #### L 500.2500 #### [facility] [address] [place], [address] Consultation - Nephrologyon 05-30-2025 Consultation - Nephrology [facility] Records Department [address] [place] [address] Consultation - Nephrology 05/30/25 0908 MR#: [id number] Acct: [id number] Name: ALVARADO COHEN CALLI Rep #: [id number] : 1945 79 From: Latoya Mo MD PCP: Dr. Glenny Luque MD Status:ADM IN Location: ICU ICU03-1 Assessment Plan Assessment/Plan (1) Hyponatremia: (2) Hypokalemia: (3) Hypomagnesemia: PLAN: Plan Assessment/Plan: Patient is a 79-year-old female with past history of hypertension with renal artery stenosis. Patient presented to hospital on 05/29/2025 with 4-day history of dyspnea, dizziness, and generalized weakness. During evaluation in ED, patient was found to have serum sodium of 106 mmol/L. Nephrology is asked to see the patient because of hyponatremia. Hyponatremia. Patient has hypotonic hyponatremia. Serum osmolality is 236 mOsm/kg. There is no severe symptoms of hyponatremia, so there is no need for hypertonic saline. Urine sodium is greater than 30 mmol/L. Urine osmolality is also more than 100 mOsm/kg. There is no evidence of thyroid dysfunction or adrenal insufficiency. Therefore, hyponatremia is ADH mediated. It is possible that patient may have underlying SIADH given the findings of urine studies. However, this is a diagnosis of exclusion. Patient has been on chlorthalidone which can cause hyponatremia and resulted in similar urine findings. First step is to stop thiazide diuretic, so I agree with discontinuing chlorthalidone which can cause diuretic induced hyponatremia. I will recheck urine electrolytes off of thiazide diuretic and saline boluses tomorrow. Patient received IV normal saline overnight., So repeating urine studies today will still not be helpful. She has remained asymptomatic from hyponatremia, so there is no need for hypertonic saline. I encouraged patient to push her own solute (protein) intake. Patient is not an ideal candidate for salt tablets since she is hypertensive. We do not have urea powder here. Therefore, I recommended that she pushes protein containing food items which will help the kidney excrete more free water. Continue to limit fluid intake to 1.2 L/day or less. Hypokalemia and hypomagnesemia should also be treated. Keeping potassium within normal limits will attenuate further drop in serum sodium. Continue to check serum sodium every 6 hours today. Since we do not know how chronic hyponatremia has been, I would recommend increasing sodium by 6 to 8 mmol/L/day but no more than 12 mmol/L/day to avoid osmotic demyelination syndrome. I do not recommend any further saline boluses since patient does not appear to be volume depleted. Giving more normal saline could also exacerbate hyponatremia if patient has poor oral solute intake (since osmolality of urine is greater than osmolality of normal saline). Hypokalemia and hypomagnesemia. Potassium remains low at 3.0 mmol/L with magnesium level of 1.4 mg/dL. Suspect hypokalemia and hypomagnesemia is also be due to chlorthalidone use. As discussed above, correcting hypokalemia could also help keep serum sodium from falling. Magnesium should also be replaced since hypokalemia may be more resistant to replacement if patient remains hypomagnesemic. Continue to monitor serum potassium and magnesium levels. HPI Consult Data Date of Consult: 05/30/25 HPI Narrative Reason for Consultation: Hyponatremia HPI Narrative: Patient is a 79-year-old female with past history of hypertension with renal artery stenosis. Patient presented to hospital on 05/29/2025 with 4-day history of dyspnea, dizziness, and generalized weakness. During evaluation in ED, patient was found to have serum sodium of 106 mmol/L. Nephrology is asked to see the patient because of hyponatremia. There is no prior history of chronic hyponatremia. Last available serum sodium from 10/07/2024 was 136 mmol/L. Prior to admission, patient has been on chlorthalidone for treatment of hypertension. Patient believes that she has been on chlorthalidone for approximately 3 years. She denies any prior knowledge of hyponatremia on his medication. She is not on SSRI, TCA, or antiseizure medication. Patient denies chronic headache, nausea/vomiting or ataxia prior to admission. She denies chronic use of NSAIDs. [facility] Medical History Renal artery stenosis HTN (hypertension) Home Medications ???Medication ???Instructions ???Recorded ???Last Taken ???Type amlodipine 10 mg tablet 10 mg PO DAILY 03/21/23 05/29/25 H istory chlorthalidone 25 mg tablet 25 mg PO QDAY 08/27/24 05/29/25 Hi story metoprolol succinate 50 mg 50 mg PO BID 08/27/24 05/29/25 His tory tablet,extended release 24 hr hydralazine 25 mg tablet 25 mg PO BID high blood pressure 1 12/07/23 05/29/25 History lisinopril 30 mg (more content not included)... Normal [facility] Magnesiumon 05-30-2025 Magnesium [Mass/Vol] 1.4 mg/dL Low 1.5-2.2 [facility] Comment on above: Order Comment: Comme nts: Add onto previous labs if possible Performed By: #### L 501.5200 #### [facility] [address] [place], [address] Sodium Levelon 05-30-2025 Sodium [Moles/Vol] 109 mmol/L Invalid Interpretation Code 145 [facility] Comment on above: Result Comment: Crit ical Result(s) Called at: 2125 by: ISAC KEENAN TO SEVEN GOMEZ Results read back by same. Performed By: #### L 100.0500, L500.2500 #### [facility] [address] [facility] [address] Sodium [Moles/Vol] 110 mmol/L Invalid Interpretation Code [address] [place] [address] Comment on above: Result Comment: Crit ical Result(s) Called at: 1551 by: ISAC KEENAN TO YOLANDA HUSSEIN ??Results read back by same. Performed By: #### L 501.4021, L100.0500, L503.7505, L500.4050 #### [facility] [address] [place], [address] Sodium [Moles/Vol] 110 mmol/L Invalid Interpretation Code [address] [place] [address] Comment on above: Result Comment: Crit ical Result(s) Called at: 05/30/2025-10:54 by: Gage Arevalo to Viky Ochoa.??Results read back by same. Performed By: #### L 500.2500 #### [facility] [address] [place], [address] 12 Lead EKGon 05-29-2025 12 Lead EKG [facility] [address] [place] [address] 12 Lead EKG 05/29/25 1328 MR#: [id number] Acct: [id number] Name: ALVARADO COHEN Rep #: [id number] : 1945 79 From: Lisandro Bernardo MD Attending Dr: Dr. Tiffanie Govea DO Status: ADM I N Ordering Dr: Del Leyva DO Date: 05/29/25 Location: ICU Sex: F C Admitted: 05/29/25 Test Reason : HTN Blood Pressure : */* mmHG Vent. Rate : 65 BPM Atrial Rate : 65 BPM P-R Int : 116 ms QRS Dur : 88 ms QT Int : 430 ms P-R-T Axes : 88 85 66 degrees QTcB Int : 447 ms Normal sinus rhythm Septal infarct , age undetermined Abnormal ECG Confirmed by LISANDRO BERNARDO MD ([id number]), industrial editor TORRI BOONE ([id number]) on 05/31/2025 7:31:47 AM Referred By: Confirmed By: LISANDRO BERNARDO MD 05/31/25730 Date Lisandro Bernardo MD CC: Dr. Tiffanie Govea DO; Dr. Glenny Luque MD; Dr. Del Leyva DO Signed Normal [facility] Anion gap in Serum or Plasma Ordered By: Del Leyva on 05-29-2025 Anion gap [Moles/Vol] 14 mmol/L - [facility] BUN/creatinine ratioOrdered By: Del Leyva on 05-29-2025 Urea nitrogen/Creatinine [Mass ratio] 21.1 mg/mg High - [facility] Basic Metabolic Profile (BMP )on 05-29-2025 BUN/CRE 20.0 RATIO Normal 08-23 [facility] Comment on above: Performed By: #### L 500.2500 #### [facility] [address] [place], [address] Calcium [Mass/Vol] 8.4 mg/dL Normal 7.6-11.0 [facility] Comment on above: Performed By: #### L 500.2500 #### [facility] [address] [place], [address] Chloride [Moles/Vol] 74 mmol/L Invalid Interpretation Code 98-108 [facility] Comment on above: Result Comment: Crit ical Result(s) Called at: 2245 by: MANUELITO GALVEZ TO LEILA FRIAS. ??Results read back by same. Performed By: #### L 500.2500 #### [facility] [address] [place], [address] CO2 [Moles/Vol] 22.3 mmol/L Normal 21.0-32.0 [facility] Comment on above: Performed By: #### L 500.2500 #### [facility] [address] [place], [address] Creatinine [Mass/Vol] 0.96 mg/dL Normal 0.70-1.20 [facility] Comment on above: Performed By: #### L 500.2500 #### [facility] [address] [place], [address] ECRCL 39.95 ml/min Low 50-250 [facility] Comment on above: Performed By: #### L 500.2500 #### [facility] [address] [place], [address] GAP 11 Normal 5-15 [facility] Comment on above: Performed By: #### L 500.2500 #### [facility] [address] [place], [address] GFR/1.73 sq M.predicted among non-blacks MDRD (S/P/Bld) [Vol rate/Area] 61 mL/min/{1.73_m2} Normal >60 [facility] Comment on above: Result Comment: mL/m in/1.73m2 CKD-EPI Creatinine Equation (2020) Performed By: #### L 500.2500 #### [facility] [address] [place], [address] Glucose [Mass/Vol] 106 mg/dL High 70-99 [facility] Comment on above: Performed By: #### L 500.2500 #### [facility] [address] [place], [address] Potassium [Moles/Vol] 3.3 mmol/L Normal 3.3-5.1 [facility] Comment on above: Performed By: #### L 500.2500 #### [facility] [address] [place], [address] Sodium [Moles/Vol] 107 mmol/L Invalid Interpretation Code 133-145 [facility] Comment on above: Result Comment: Crit ical Result(s) Called at: 2245 by:??MANUELITO GALVEZ TO LEILA FRIAS. Results read back by same. Performed By: #### L 500.2500 #### [facility] [address] [place], [address] Urea nitrogen [Mass/Vol] 19 mg/dL Normal 4-19 [facility] Comment on above: Performed By: #### L 500.2500 #### [facility] [address] [place], [address] BUN/CRE 22.2 RATIO High 10-20 [facility] Comment on above: Performed By: #### L 100.0500, L500.2500 #### [facility] [address] [place], [address] Calcium [Mass/Vol] 8.6 mg/dL Normal 7.6-11.0 [facility] Comment on above: Performed By: #### L 100.0500, L500.2500 #### [facility] [address] [place], [address] Chloride [Moles/Vol] 74 mmol/L Invalid Interpretation Code 98-108 [facility] Comment on above: Result Comment: Crit ical Result(s) Called at: 1754 by:??ISAC KEENAN TO LALYART LOGAN Results read back by same. Performed By: #### L 100.0500, L500.2500 #### [facility] [address] [place], [address] CO2 [Moles/Vol] 22.2 mmol/L Normal 21.0-32.0 [facility] Comment on above: Performed By: #### L 100.0500, L500.2500 #### [facility] [address] [place], [address] Creatinine [Mass/Vol] 0.94 mg/dL Normal 0.70-1.20 [facility] Comment on above: Performed By: #### L 100.0500, L500.2500 #### [facility] [address] [place], [address] ECRCL 40.80 ml/min Low 50-250 [facility] Comment on above: Performed By: #### L 100.0500, L500.2500 #### [facility] [address] [place], [address] GAP 13 Normal 5-15 [facility] Comment on above: Performed By: #### L 100.0500, L500.2500 #### [facility] [address] [place], [address] GFR/1.73 sq M.predicted among non-blacks MDRD (S/P/Bld) [Vol rate/Area] 62 mL/min/{1.73_m2} Normal >60 [facility] Comment on above: Result Comment: mL/m in/1.73m2 CKD-EPI Creatinine Equation (2020) Performed By: #### L 100.0500, L500.2500 #### [facility] [address] [place], [address] Glucose [Mass/Vol] 106 mg/dL High 70-99 [facility] Comment on above: Performed By: #### L 100.0500, L500.2500 #### [facility] [address] [place], [address] Potassium [Moles/Vol] 3.3 mmol/L Normal 3.3-5.1 [facility] Comment on above: Performed By: #### L 100.0500, L500.2500 #### [facility] [address] [place], [address] Sodium [Moles/Vol] 109 mmol/L Invalid Interpretation Code 133-145 [facility] Comment on above: Result Comment: Crit ical Result(s) Called at: 1754 by: ISAC KEENAN TO LALY LOGAN??Results read back by same. Performed By: #### L 100.0500, L500.2500 #### [facility] [address] [place], [address] Urea nitrogen [Mass/Vol] 21 mg/dL High 4-19 [facility] Comment on above: Performed By: #### L 100.0500, L500.2500 #### [facility] [address] [place], [address] BUN/CRE 21.1 RATIO High 10-20 [facility] Comment on above: Performed By: #### L 500.2500 #### [facility] [address] [place], [address] Calcium [Mass/Vol] 8.4 mg/dL Normal 7.6-11.0 [facility] Comment on above: Performed By: #### L 500.2500 #### [facility] [address] [place], [address] Chloride [Moles/Vol] 72 mmol/L Invalid Interpretation Code 98-108 [facility] Comment on above: Result Comment: Crit ical Result(s) Called at: 1521 by:??ISAC KEENAN TO MILLA TENNENT Results read back by same. Performed By: #### L 500.2500 #### [facility] [address] [place], [address] CO2 [Moles/Vol] 21.3 mmol/L Normal 21.0-32.0 [facility] Comment on above: Performed By: #### L 500.2500 #### [facility] [address] [place], [address] Creatinine [Mass/Vol] 1.04 mg/dL Normal 0.70-1.20 [facility] Comment on above: Performed By: #### L 500.2500 #### [facility] [address] [place], [address] ECRCL 36.88 ml/min Low 50-250 [facility] Comment on above: Performed By: #### L 500.2500 #### [facility] [address] [place], [address] GAP 14 Normal 5-15 [facility] Comment on above: Performed By: #### L 500.2500 #### [facility] [address] [place], [address] GFR/1.73 sq M.predicted among non-blacks MDRD (S/P/Bld) [Vol rate/Area] 55 mL/min/{1.73_m2} Low >60 [facility] Comment on above: Result Comment: mL/m in/1.73m2 CKD-EPI Creatinine Equation (2020) Performed By: #### L 500.2500 #### [facility] [address] [place], [address] Glucose [Mass/Vol] 113 mg/dL High 70-99 [facility] Comment on above: Performed By: #### L 500.2500 #### [facility] [address] [place], [address] Potassium [Moles/Vol] 3.3 mmol/L Normal 3.3-5.1 [facility] Comment on above: Performed By: #### L 500.2500 #### [facility] [address] [place], [address] Sodium [Moles/Vol] 107 mmol/L Invalid Interpretation Code 133-145 [facility] Comment on above: Result Comment: Crit ical Result(s) Called at: 1521 by:??ISAC KEENAN TO MILLA TENNENT Results read back by same. Performed By: #### L 500.2500 #### [facility] [address] [place], [address] Urea nitrogen [Mass/Vol] 22 mg/dL High 4-19 [facility] Comment on above: Performed By: #### L 500.2500 #### [facility] [address] [place], [address] Bilirubin Test strip Ql (U)O rdered By: Del Leyva on 05-29-2025 Bilirubin Ql (U) Negative Negative [facility] Bilirubin, totalOrdered By: Del Leyva on 05-29-2025 Bilirubin [Mass/Vol] 0.44 mg/dL 0.00-1.30 [facility] Brain/Head without Contrasto n 05-29-2025 Brain/Head without Contrast [facility] Imaging Services [address] [place], [place] [address] Brain/Head without Contrast MR#: [id number] Acct: [id number] Name: ALVARADO COHEN CALLI Rep #: [id number] : 1945 F 79 From: Glenny Mancia MD PCP: Dr. Glenny Luque MD Status: REG ER Study: Brain/Head without Contrast Date of Exam: 05/05 04/28 Exam# [id number] Ordering Dr: Del Leyva DO EXAM: CT Head Without Intravenous Contrast CLINICAL INDICATION: DIZZINESS TECHNIQUE: Axial computed tomography images of the head/brain without intravenous contrast. This CT exam was performed using one or more of the following dose reduction techniques: automated exposure control, adjustment of the mA and/or kV according to patient size, and/or use of iterative reconstruction technique. COMPARISON: No relevant prior studies available. FINDINGS: BRAIN AND EXTRA-AXIAL SPACES: The cerebral and cerebellar sulci are prominent consistent with brain atrophy. Areas of decreased attenuation in the deep cerebral white matter are consistent with small vessel ischemic/degenerativ e changes. No acute intracranial hemorrhage, midline shift or mass effect. If symptoms persist, further evaluation with MRI is recommended. BONES/JOINTS: Unremarkable. No acute fracture. SOFT TISSUES: Unremarkable. SINUSES: Unremarkable as visualized. No acute sinusitis. MASTOID AIR CELLS: Unremarkable as visualized. No mastoid effusion. CT/Brain/Head without Contrast IMPRESSION: 1. Generalized brain atrophy. 2. Small vessel ischemic/degenerativ e changes. 3. No acute intracranial hemorrhage, midline shift or mass effect. If symptoms persist, further evaluation with MRI is recommended. Reading Location: [facility] CC: Dr. Glenny Luque MD; Dr. Del Leyva DO Accounts Payable Clerk: Signed Normal [facility] CBC-Complete Blood Cnt No Di ffon 05-29-2025 Erythrocyte distribution width (RBC) [Ratio] 13.2 % Normal 11.6-14.6 [facility] Comment on above: Performed By: #### L 501.4021, L100.0500, L503.7505, L500.4050 #### [facility] [address], [address] Hematocrit (Bld) [Volume fraction] 27.1 % Low 37-47 [facility] Comment on above: Performed By: #### L 501.4021, L100.0500, L503.7505, L500.4050 #### [facility] [address] [place], [address] Hemoglobin (Bld) [Mass/Vol] 10.2 g/dL Low 12.0-15.0 [facility] Comment on above: Performed By: #### L 501.4021, L100.0500, L503.7505, L500.4050 #### [facility] [address] [place], [address] MCH (RBC) [Entitic mass] 29.5 pg Normal 27.0-32.0 [facility] Comment on above: Performed By: #### L 501.4021, L100.0500, L503.7505, L500.4050 #### [facility] [address] [place], [address] MCHC (RBC) [Mass/Vol] 37.6 g/dL High 32-36 [facility] Comment on above: Performed By: #### L 501.4021, L100.0500, L503.7505, L500.4050 #### [facility] [address] [place], [address] MCV (RBC) [Entitic vol] 78.3 fL Low 81-99 [facility] Comment on above: Performed By: #### L 501.4021, L100.0500, L503.7505, L500.4050 #### [facility] [address] [place], [address] Platelet mean volume (Bld) [Entitic vol] 9.3 fL Normal 6.2-12.0 [facility] Comment on above: Performed By: #### L 501.4021, L100.0500, L503.7505, L500.4050 #### [facility] [address] [place], [address] Platelets (Bld) [#/Vol] 257 10*3/uL Normal 150-450 [facility] Comment on above: Performed By: #### L 501.4021, L100.0500, L503.7505, L500.4050 #### [facility] [address] [place], [address] RBC (Bld) [#/Vol] 3.46 10*6/uL Low 4.2-5.4 [facility] Comment on above: Performed By: #### L 501.4021, L100.0500, L503.7505, L500.4050 #### [facility] [address] [place], [address] RDW SD 37.3 fl Normal 35.1-43.9 [facility] Comment on above: Performed By: #### L 501.4021, L100.0500, L503.7505, L500.4050 #### [facility] [address] [place], [address] WBC (Bld) [#/Vol] 8.6 10*3/uL Normal 4.4-11.0 [facility] Comment on above: Performed By: #### L 501.4021, L100.0500, L503.7505, L500.4050 #### [facility] [address] [place], [address] Calculated very low density lipoprotein (VLDL) cholesterol measurementOrdered By: Conchita Burns on 05-29-2025 Calculated very low density lipoprotein (VLDL) cholesterol measurement 19 mg/dL 5-40 [facility] Carbon dioxide, total [Moles /volume] in Central venous bloodOrdered By: Del Leyva on 05-29-2025 CO2 [Moles/Vol] 21.3 mmol/L 21.0-32.0 [facility] Chest 1 View (Portable)on Chest 1 View (Portable) [facility] Imaging Services [address] [place] [address] Chest 1 View (Portable) MR#: [id number] Acct: [id number] Name: ALVARADO COHEN Rep #: [id number] : 1945 F 79 From: Glenny Mancia MD PCP: Dr. Glenny Luque MD Status: [facility] ER Study: Chest 1 View (Portable) Date of Exam: 05/29/25 Exam# [id number] Ordering Dr: Del Leyva DO EXAM: XR Chest, 1 View CLINICAL INDICATION: SOB TECHNIQUE: Frontal view of the chest. COMPARISON: No relevant prior studies available. FINDINGS: LUNGS AND PLEURAL SPACES: Left basilar atelectasis or pneumonia. No pneumothorax. HEART: Unremarkable. No cardiomegaly. MEDIASTINUM: Unremarkable. Normal mediastinal contour. BONES/JOINTS: Unremarkable. No acute fracture. RAD/Chest 1 View (Portable) IMPRESSION: Left basilar atelectasis or pneumonia. Reading Location: [facility] CC: Dr. Glenny Luque MD; Dr. Del eLyva DO Accounts Payable Clerk: Signed Normal [facility] Chloride assayOrdered By: Barb Leyva on 05-29-2025 Chloride [Moles/Vol] 72 mmol/L Low 98-108 [facility] Comment on above: Critical Result(s) C alled at: 1521 by: ISAC KEENAN TO MILLA TENNENT Results read back by same. Comprehensive Metabolic Prof ilon 05-29-2025 Albumin [Mass/Vol] 3.9 g/dL Normal 3.4-4.8 [facility] Comment on above: Performed By: #### L 501.4021, L100.0500, L503.7505, L500.4050 #### [facility] [address] [place], [address] Albumin/Globulin [Mass ratio] 1.7 {ratio} Normal 0.9-2.4 [facility] Comment on above: Performed By: #### L 501.4021, L100.0500, L503.7505, L500.4050 #### [facility] [address] [place], [address] ALK PHOS 76 U/L Normal 35-104 [facility] Comment on above: Performed By: #### L 501.4021, L100.0500, L503.7505, L500.4050 #### [facility] [address] [place], [address] ALT [Catalytic activity/Vol] 23 U/L Normal <=34 [facility] Comment on above: Performed By: #### L 501.4021, L100.0500, L503.7505, L500.4050 #### [facility] [address] [place], [address] AST [Catalytic activity/Vol] 21 U/L Normal <=31 [facility] Comment on above: Performed By: #### L 501.4021, L100.0500, L503.7505, L500.4050 #### [facility] [address] [place], [address] Bilirubin [Mass/Vol] 0.44 mg/dL Normal 0.00-1.30 [facility] Comment on above: Performed By: #### L 501.4021, L100.0500, L503.7505, L500.4050 #### [facility] [address] [place], [address] BUN/CRE 20.2 RATIO High 10-20 [facility] Comment on above: Performed By: #### L 501.4021, L100.0500, L503.7505, L500.4050 #### [facility] [address] [place], [address] Calcium [Mass/Vol] 8.7 mg/dL Normal 7.6-11.0 [facility] Comment on above: Performed By: #### L 501.4021, L100.0500, L503.7505, L500.4050 #### [facility] [address] [place], [address] Chloride [Moles/Vol] 73 mmol/L Invalid Interpretation Code 98-108 [facility] Comment on above: Result Comment: Crit ical Result(s) Called at: 05/29/2025-14:38 by: Gage Arevalo to Laurel Aponte.??Results read back by same. Performed By: #### L 501.4021, L100.0500, L503.7505, L500.4050 #### [facility] [address] [place], [address] CO2 [Moles/Vol] 21.6 mmol/L Normal 21.0-32.0 [facility] Comment on above: Performed By: #### L 501.4021, L100.0500, L503.7505, L500.4050 #### [facility] [address] [place], [address] Creatinine [Mass/Vol] 1.06 mg/dL Normal 0.70-1.20 [facility] Comment on above: Performed By: #### L 501.4021, L100.0500, L503.7505, L500.4050 #### [facility] [address] [place], [address] ECRCL 36.18 ml/min Low 50-250 [facility] Comment on above: Performed By: #### L 501.4021, L100.0500, L503.7505, L500.4050 #### [facility] [address] [place], [address] GAP 12 Normal 5-15 [facility] Comment on above: Performed By: #### L 501.4021, L100.0500, L503.7505, L500.4050 #### [facility] [address] [place], [address] GFR/1.73 sq M.predicted among non-blacks MDRD (S/P/Bld) [Vol rate/Area] 54 mL/min/{1.73_m2} Low >60 [facility] Comment on above: Result Comment: mL/m in/1.73m2 CKD-EPI Creatinine Equation (2020) Performed By: #### L 501.4021, L100.0500, L503.7505, L500.4050 #### [facility] [address] [place], [address] Globulin (S) [Mass/Vol] 2.3 g/dL Normal 2.2-4.2 [facility] Comment on above: Performed By: #### L 501.4021, L100.0500, L503.7505, L500.4050 #### [facility] [address] [place], [address] Glucose [Mass/Vol] 121 mg/dL High 70-99 [facility] Comment on above: Performed By: #### L 501.4021, L100.0500, L503.7505, L500.4050 #### [facility] [address] [place], [address] Potassium [Moles/Vol] 3.5 mmol/L Normal 3.3-5.1 [facility] Comment on above: Performed By: #### L 501.4021, L100.0500, L503.7505, L500.4050 #### [facility] [address] [place], [address] Sodium [Moles/Vol] 106 mmol/L Invalid Interpretation Code 133-145 [facility] Comment on above: Result Comment: Crit ical Result(s) Called at: 05/29/2025-14:38 by: Gage Arevalo to Laurel Aponte.??Results read back by same. Performed By: #### L 501.4021, L100.0500, L503.7505, L500.4050 #### [facility] [address] [place], [address] T PROT 6.2 g/dL Normal 5.9-8.4 [facility] Comment on above: Performed By: #### L 501.4021, L100.0500, L503.7505, L500.4050 #### [facility] [address] [place], [address] Urea nitrogen [Mass/Vol] 21 mg/dL High 4-19 [facility] Comment on above: Performed By: #### L 501.4021, L100.0500, L503.7505, L500.4050 #### [facility] [address] [place], [address] Creatinine, Urine (random)on 05-29-2025 UR CREAT 43.90 mg/dL Normal 28.00-217.00 [facility] Comment on above: Performed By: #### L 501.4021, L100.0500, L503.7505, L500.4050 #### [facility] [address] [place], [address] Echo Completeon 05-29-2025 Echo Complete [facility] Cardi[facility] [address] [place] [address] Echo Complete 05/31/25 1045 MR#: [id number] Acct: [id number] Name: ALVARADO COHEN Rep #: [id number] : 1945 79 From: Lisandro Bernardo MD Attending Dr: Dr. Tiffanie Govea, DO Status: ADM I N Ordering Dr: Conchita Burns MD Date: 05/29/25 Location: U Sex: F C Admitted: 05/29/25 Reason For Study Reason For Study: SOB Procedure This was a 2D Doppler, Color Flow transthoracic echocardiogram. Exam performed portable in ICU/CCU. Left Ventricle Normal LV size. Left ventricular systolic function is normal. The left ventricular ejection fraction is 65 %. No regional wall motion abnormalities noted. Right Ventricle Normal RV size. Normal systolic function. Atria Normal left atrium. Normal right atrium. Mitral Valve Bileaflet diffuse mitral valve thickening. Moderate (2+) eccentric mitral valve insufficiency. Tricuspid Valve Normal tricuspid valve. Mild to moderate (1-2+) tricuspid valve insufficiency. Pulmonary artery systolic pressure is 52 mmHg. Moderate pulmonary hypertension. Aortic Valve Trisinus/trileaflet aortic valve. Pulmonic Valve Normal pulmonic valve. Great Vessels Normal aortic root. The pulmonary artery is normal size. Inferior vena cava collapse with respiration. Pericardium/Pleural No pericardial effusion. MMode/2D Measurements Calculations LVIDd: 4.6 cm IVSd: 1.1 cm LVOT diam: 1.8 cm LVIDs: 2.4 cm LVPWd: 1.1 cm LVOT area: 2.7 cm2 RVDd: 3.4 cm FS: 48.7 % asc Aorta Diam: 2.3 cm LAV(MOD-bp): 54.6 ml LVAd ap4: 27.7 cm2 LAV(MOD-bp) Indexed: 34.9 ml/m2 LVLd ap4: 7.4 cm LAV(MOD-sp2): 72.1 ml EDV(MOD-sp4): 86.1 ml LAV(MOD-sp4): 40.2 ml EDV(sp4-el): 87.7 ml LVAs ap4: 15.5 cm2 LVLs ap4: 6.2 cm ESV(MOD-sp4): 32.9 ml ESV(sp4-el): 32.8 ml EF(MOD-sp4): 61.8 % EF(sp4-el): 62.6 % LVAd ap2: 27.6 cm2 SV(MOD-sp4): 53.2 ml SV(MOD-sp2): 56.2 ml LVLd ap2: 7.5 cm SI(MOD-sp4): 33.9 ml/m2 SI(MOD-sp2): 35.8 ml/m2 EDV(MOD-sp2): 86.6 ml EDV(sp2-el): 86.6 ml LVAs ap2: 14.6 cm2 LVLs ap2: 6.3 cm ESV(MOD-sp2): 30.5 ml ESV(sp2-el): 28.8 ml EF(MOD-sp2): 64.8 % SV(sp4-el): 54.9 ml LA dimension(2D): 3.8 cm LA A4 area: 16.5 cm2 RA A4 area: 13.9 cm2 TAPSE: 2.2 cm Time Measurements MV dec time: 0.15 sec Doppler Measurements Calculations MV E max sha: 127.3 cm/sec Lat Peak E' Sha: 6.8 cm/sec Med Peak E' Sha: 6.3 cm/sec MV A max sha: 71.1 cm/sec E/E' lat: 18.6 E/E' med: 20.2 MV E/A: 1.8 Ao V2 max: 148.2 cm/sec LV V1 max: 129.7 cm/sec MV dec slope: 873.5 cm/sec2 Ao max P.8 mmHg LV V1 max P.7 mmHg Ao V2 mean: 107.5 cm/sec LV V1 mean P.3 mmHg Ao mean P.0 mmHg LV V1 mean: 101.3 cm/sec Ao V2 VTI: 38.1 cm LV V1 VTI: 36.7 cm AV (velocity ratio): 0.96 MOSES(I,D): 2.6 cm2 MOSES(V,D): 2.3 cm2 SV(LVOT): 97.5 ml PA V2 max: 88.9 cm/sec TR max sha: 348.4 cm/sec TR max P.6 mmHg ECHO/Echo Complete Interpretation Summary Normal LV size. Left ventricular systolic function is normal. The left ventricular ejection fraction is 65 %. Moderate (2+) eccentric mitral valve insufficiency. Pulmonary artery systolic pressure is 52 mmHg. Moderate pulmonary hypertension. Ordering Physician: Conchita uBrns Referring Physician: Glenny Luque Performed By: Evelyn Darby RDCS 05/31/25 2548 Date Lisandro Bernardo MD CC: Dr. Tiffanie Govea DO; Dr. Glenny Luque MD; Dr. Conchita Burns MD Date Dictated: 05/31/25 1045 Date Transcribed: 05/31/25 1635 Accounts Payable Clerk: Signed Normal [facility] Emergency Department Summary on 05-29-2025 Emergency Department Summary [facility] Medical Records Department [address] [place] [address] Emergency Department Summary 05/29/25 MR#: [id number] Acct: [id number] Name: ALVARADO COHEN Rep #: [id number] : 1945 79 From: Del Leyva DO PCP: Dr. Glenny Luque MD Status:ADM IN Location: ICU ICU03-1 HPI History of Present Illness Chief Complaint: General Illness PFSH PFSH Medical History Renal artery stenosis HTN (hypertension) Home Medications ???Medication ???Instructions ???Recorded ???Last Taken ???Type amlodipine 10 mg tablet 10 mg PO DAILY 03/21/23 05/29/25 H istory chlorthalidone 25 mg tablet 25 mg PO QDAY 08/27/24 05/29/25 Hi story metoprolol succinate 50 mg 50 mg PO BID 08/27/24 05/29/25 His tory tablet,extended release 24 hr hydralazine 25 mg tablet 25 mg PO BID high blood pressure 1 12/07/23 05/29/25 History lisinopril 30 mg tablet 30 mg PO BID High blood pressure 1 12/07/23 05/29/25 History Allergy/AdvReac Type Severity Reaction Status Date / Time codeine Allergy PT UNSURE Verified 05/29/25 12:50 OF REACTION Sulfa (Sulfonamide Allergy Rash Verified 05/29/25 12:50 Antibiotics) (sulfa drugs) Family History Other Asthma Cancer Hypertension Surgical History H/O cone biopsy of cervix ( 1977) Social History Smoking Status: Light Smoker (<10/day) Tobacco: How many years used: 40 quit status: considering quitting EXAM Physical Exam Const Vital Signs: 05/29/25 12:48 05/29/25 14:01 05/29/25 14:04 Temperature 97.8 F Temperature Source Oral Pulse Rate 68 65 Respiratory Rate 18 Respiratory Effort Normal Non-Labored Blood Pressure 185/54 H 197/56 H Blood Pressure Mean 97 103 Pulse Ox 96 99 Oxygen Delivery Method Room Air Room Air 05/29/25 14:13 05/29/25 15:33 05/29/25 16:00 Temperature 97.8 F Temperature Source Pulse Rate 64 70 68 Respiratory Rate 13 17 13 Respiratory Effort Blood Pressure 169/54 H 186/63 H 198/61 H Blood Pressure Mean 92 104 106 Pulse Ox 97 97 97 Oxygen Delivery Method Room Air Room Air MDM MDM MDM Narrative Medical decision making narrative: HISTORY OF PRESENT ILLNESS: Chief complaint: 79year-old female history of hypertension, renal artery stenosis presents with shortness of breath associated with swelling, dizziness and weakness. Notes this began 4 days ago. Endorses history of renal artery stenosis. Denies headache but notes occasional dizziness specifically with standing. Notes compliance with home antihypertensives. Denies any falls or trauma. She denies any chest pain but notes some shortness of breath specifically with exertion. While swelling was endorsed in the triage note the patient denies lower extremity edema. Denies cough fever or chills. The patient denies recent surgery in the last 4 weeks or immobilization in the last 3 days, denies previous diagnosis of DVT or PE, hemoptysis, unilateral leg swelling or malignancy with treatment the last 6 months or palliative. No estrogen use noted. Denies any bleeding diathesis REVIEW OF SYSTEMS: Pertinent positives: Shortness of breath, dizziness and weakness Pertinent negatives: Syncope, headache PHYSICAL EXAM: Nursing triage notes reviewed, Vital signs reviewed Constitutional: please see mdm HENT: MMM Eyes: Pupils equal round and reactive to light, Extraocular muscles intact Neck: No stridor, no JVD, full neck ROM Lungs: Clear to auscultation, No wheezing or rales. No increased work of breathing, no conversational dyspnea, no accessory muscle use, no nasal flaring. No respiratory distress noted Heart: Regular rate and rhythm, No murmurs, No rubs and No gallops, 2+ distal pulses (radial, femoral, posterior tibial) in all extremities Abdomen: Soft, there is no tenderness, rigidity, rebound or guarding, no obvious peritoneal signs, no palpable pulsatile abdominal masses, no auscultated abdominal bruit : No CVAT Extremities: No edema Neuro: Alert and oriented x3, neuro exam at baseline, cranial nerves II through XII are intact. No pain with extraocular muscle movement. There is negative test of skew. 5 of 5 strength in upper and lower extremities in flexion extension. Intact sensation to light touch in upper and lower extremity dermatomes. No truncal or extremity ataxia. No dysdiadochokinesia. Normal gait. 2+ reflexes in upper and lower extremities. No meningeal signs. Negative Babinski. NIH of 0. Skin: No rash or lesions noted MEDICAL DECISION MAKING: Chief Complaint: please see HPI External records reviewed: Reviewed prior vascular surgery o (more content not included)... Normal [facility] Erythrocyte distribution wid th ratioOrdered By: Del Leyva on 05-29-2025 Erythrocyte distribution width (RBC) [Ratio] 13.2 % 11.6-14.6 [facility] Erythrocyte distribution wid th standard deviationOrdered By: Del Leyva on 05-29-2025 Erythrocyte distribution width (RBC) [Ratio] 37.3 fl 35.1-43.9 [facility] Glomerular filtration rate ( GFR) estimation/1.73 sq m using serum, plasma, or whole bOrdered By: Del Leyva on 05-29-2025 GFR/1.73 sq M.predicted among non-blacks MDRD (S/P/Bld) [Vol rate/Area] 55 mL/min/{1.73_m2} Low >60 [facility] Comment on above: mL/min/1.73m2 CKD-EP I Creatinine Equation (2020) H AND P Exam - [facility] 05-29-2025 H&P Exam - Hospitalist [facility] Medical Records Department [address] [place] [address] H P Exam - Hospitalist 05/29/25 1621 MR#: [id number] Acct: [id number] Name: ALVARADO COHEN CALLI Rep #: [id number] : 1945 79 From: Conchita Burns MD PCP: Dr. Glenny Luque MD Status:ADM IN Location: ICU ICU03-1 HPI - General General Date of Admission: 05/29/25 Date of Service: 05/29/25 Chief Complaint: Weakness, lightheadedness, generally feeling unwell HPI Narrative ALVARADO COHEN, is a 79-year-old female history of hypertension and renal artery stenosis presented [facility] ED 05/29/2025 with increased shortness of breath, swelling, dizziness and weakness for 4 days. Occasional dizziness with standing but denies headache. No falls or trauma and reports compliance with her antihypertensives. In the ED temp 97.8, heart rate of 68 and blood pressure 185/54, respiratory rate 18 and pulse ox 96% on room air. CBC with white blood cell count of 8.6, hemoglobin 10.2. UA not suggestive of infection, proBNP elevated at 5274 and troponin 20. CMP however revealed a sodium of 106, potassium of 3.5, chloride of 73 and BUN of 21 with a creatinine of 1.06. Glucose 121 and liver profile within normal limits. Hospitalist contacted for admission for patient's significant hyponatremia. Patient evaluated at bedside. She reports that she has been feeling a little bit unwell over the past couple of weeks and she had her cataract surgery canceled due to her hypertension so her outpatient asset analyst who she said is Dr. Nora Erazo adjusted her blood pressure medicines adding a medicine to her regimen but she does not recall the name, she did not do very well on this so Saturday that was discontinued and her hydralazine was increased from 50 mg 3 times daily to 100 mg 3 times daily that she said after that symptoms worsened. She has felt generally unwell with generalized weakness and some lightheadedness when standing. Reports she did get some swelling in her lower extremities on the medication that was added to her regimen but this is resolved since that medication was discontinued. Reports some chronic cough but she is a smoker but denies that there has been any change in cough, has been somewhat short of breath during this time period. She denies any headache or fever, has some blurry vision but said she was due for cataract surgery and it was canceled, does not note acute change. No chest pain, no new bowel changes including no diarrhea, no changes in urination reported, no abdominal pain or vomiting. Does feel slightly better at time of evaluation than she did earlier today but still feels very weak and just generally not well. Did note that she was told before that she has low sodium within the past few months but she is not sure what the number was PFSH Medical History Renal artery stenosis HTN (hypertension) Home Medications ???Medication ???Instructions ???Recorded ???Last Taken ???Type amlodipine 10 mg tablet 10 mg PO DAILY 03/21/23 05/29/25 H istory chlorthalidone 25 mg tablet 25 mg PO QDAY 08/27/24 05/29/25 Hi story metoprolol succinate 50 mg 50 mg PO BID 08/27/24 05/29/25 His tory tablet,extended release 24 hr hydralazine 25 mg tablet 25 mg PO BID high blood pressure 1 12/07/23 05/29/25 History lisinopril 30 mg tablet 30 mg PO BID High blood pressure 1 12/07/23 05/29/25 History Allergy/AdvReac Type Severity Reaction Status Date / Time codeine Allergy PT UNSURE Verified 05/29/25 12:50 OF REACTION Sulfa (Sulfonamide Allergy Rash Verified 05/29/25 12:50 Antibiotics) (sulfa drugs) Family History Other Asthma Cancer Hypertension Surgical History H/O cone biopsy of cervix ( 1977) Social History Smoking Status: Heavy Smoker (>10/day) Tobacco: How many years used: 40 quit status: considering quitting ROS ROS Narrative General: Denies fever/chills HENT: Denies headache, denies stuffy nose, denies sore throat EYES: Has some chronic blurry vision, she does not necessarily think that this is changed acutely Resp: Slight chronic cough without any change, has noted some shortness of breath Cardiac: Denies chest pain GI: Denies abdominal pain, denies acute changes in bowel, denies nausea/vomiting : Denies changes in urination Extremity: Did have swelling in ankles with blood pressure medication change but since this was stopped last week this is resolved MSK: Generalized weakness Neuro: Denies any numbness/tingling, some lightheadedness on standing Heme: Denies any bleeding or bruising Skin: Denies rashes Psychiatric: No complaints voiced Vital Signs Vital Signs [place] (more content not included)... Normal [facility] Hematocrit Auto (Bld) [Volum e fraction]Ordered By: Del Leyva on 05-29-2025 Hematocrit (Bld) [Volume fraction] 27.1 % Low 37-47 [facility] Hemoglobin measurementOrdere d By: Del Leyva on 05-29-2025 Hemoglobin (Bld) [Mass/Vol] 10.2 g/dL Low 12.0-15.0 [facility] Ketones Test strip Ql (U)Ord ered By: Del Leyva on 05-29-2025 Ketones Ql (U) 5 mg/dl High Negative [facility] L501.4021on 05-29-2025 Trop T High Sen 20 ng/L High <=14 [facility] Comment on above: Performed By: #### L 501.4021, L100.0500, L503.7505, L500.4050 #### [facility] [address] [place], [address] L509.6002on 05-29-2025 CORTISOL 18.30 ug/dL High 2.68-10.50 [facility] Comment on above: Order Comment: jude gavin cortisol for now Performed By: #### L 500.2500 #### [facility] [address] [place], [address] LDL calc ser/plasOrdered By: Conchita Burns on 05-29-2025 Cholesterol in LDL [Mass/Vol] 82 mg/dL [facility] Comment on above: Tkcdnnxvhh=977-672 m g/dL & Higher Medv=145 mg/dL or greaterFriedwald Equation for LDL-C Laboratory - Chemistry and C hemistry - challengeOrdered By: Del Leyva on 05-29-2025 AST [Catalytic activity/Vol] 21 U/L <32 [facility] Lipid Profileon 05-29-2025 CHOL:HDL 2.49 Normal [facility] Comment on above: Performed By: #### L 500.2500 #### [facility] [address] [place], [address] Cholesterol [Mass/Vol] 170 mg/dL Normal <=200 [facility] Comment on above: Result Comment: Chol esterol level, Desirable <200 mg/dL Borderline high cholesterol 200-239 mg/dL High cholesterol >=240 mg/dL Recommendations of the NCEP Adult Treatment Panel for the following risk-cutoff thresholds for the [place] population. Performed By: #### L 500.2500 #### [facility] [address] [place], [address] Cholesterol in HDL [Mass/Vol] 68 mg/dL Normal [facility] Comment on above: Result Comment: Xochitl onal Cholesterol Education Program (NCEP) guidelines: <40 mg/dL: Low HDL-cholesterol (major risk factor for CHD) >= 60 mg/dL: High HDL-cholesterol (negative risk factor for CHD) HDL-cholesterol is affected by a number of factors, e.g. smoking, exercise, hormones, sex and age. Performed By: #### L 500.2500 #### [facility] [address] [place], [address] Cholesterol in LDL [Mass/Vol] 82 mg/dL Normal [facility] Comment on above: Result Comment: Bord frqrwo=145-044 mg/dL Higher Kezl=610 mg/dL or greater Friedwald Equation for LDL-C Performed By: #### L 500.2500 #### [facility] [address] [place], [address] Cholesterol in VLDL [Mass/Vol] 19 mg/dL Normal 5-40 [facility] Comment on above: Performed By: #### L 500.2500 #### [facility] [address] [place], [address] Triglyceride [Mass/Vol] 96 mg/dL Normal [facility] Comment on above: Result Comment: The drugs N-Acetylcysteine and Metamizole may falsely depress this assay. Normal range: <150 mg/dL Borderline High: 150-199 mg/dL High: 200-499 mg/dL Very High: >500 mg/dL Performed By: #### L 500.2500 #### [facility] [address] [place], [address] MCV (mean corpuscular volume ) determinationOrdered By: Del Leyva on 05-29-2025 MCV (RBC) [Entitic vol] 78.3 fL Low 81-99 [facility] Mean corpuscular hemoglobin (MCH) determinationOrdered By: Del Leyva on 05-29-2025 MCH (RBC) [Entitic mass] 29.5 pg 27.0-32.0 [facility] Mean corpuscular hemoglobin concentration (MCHC) determinationOrdered By: Del Leyva on 05-29-2025 MCHC (RBC) [Mass/Vol] 37.6 g/dL High 32-36 [facility] Mean platelet volume determi nationOrdered By: Del Leyva on 05-29-2025 Platelet mean volume (Bld) [Entitic vol] 9.3 fL 6.2-12.0 [facility] Microscopic analysis of urin e for red blood cells (RBC)Ordered By: Del Leyva on 05-29-2025 Microscopic analysis of urine for red blood cells (RBC) 0 SEEN /hpf 0-5 [facility] Mucus LM Ql (Urine sed)Order ed By: Del Leyva on 05-29-2025 Mucus Ql (Urine sed) 0 SEEN /hpf [facility] Natriuretic peptide.B prohor pooja N-Terminal [Mass/volume] in Serum or PlasmaOrdered By: Del Leyva on 05-29-2025 Natriuretic peptide.B prohormone N-Terminal [Mass/Vol] 5274 pg/mL High <1800 [facility] Comment on above: Heart Failure Unlike ly: < 300 pg/mLHeart Failure Likely< 50 Years: > 450 pg/mL50-75 Years: > 900 pg/mL>75 Years: > 1800 pg/mL Nitrite Test strip Ql (U)Ord ered By: Del Leyva on 05-29-2025 Nitrite Ql (U) Negative Negative [facility] Osmolality urOrdered By: Mir Burns on 05-29-2025 Osmolality (U) [Osmolality] 371 mOsm/KG >50 [facility] Comment on above: Normal Urine Referen ce Ranges Random: 50 - 1200 mOsm/kg H20 depending on fluid intake Random: >850 mOsm/kg after 12 hour fluid restriction 24 hour: ~300 - 900 mOsm/kg H2O Osmolality, Serumon 05-29-20 25 OSMOLALITY,SER 236 mOsm/KG Low 280-301 [facility] Comment on above: Performed By: #### L 501.4021, L100.0500, L503.7505, L500.4050 #### [facility] [address] [place], [place], [address] Osmolality, Urineon 05-29-20 25 OSMOLALITY,UR 371 mOsm/KG Normal [facility] Comment on above: Result Comment: Normal Urine Reference Ranges Random: 50 - 1200 mOsm/kg H20 depending on fluid intake Random: >850 mOsm/kg after 12 hour fluid restriction 24 hour: 300 - 900 mOsm/kg H2O Performed By: #### L 501.4021, L100.0500, L503.7505, L500.4050 #### [facility] [address] [facility] [place], [place], [address] Platelet countOrdered By: Barb Leyva on 05-29-2025 Platelets (Bld) [#/Vol] 257 10*3/uL 150-450 [facility] Potassium measurement (mass/ volume)Ordered By: Del Leyva on 05-29-2025 Potassium (Unsp spec) [Mass/Vol] 3.3 mmol/L 3.3-5.1 [facility] Pro- Brain NATRIURETIC PEPTI Dawit 05-29-2025 Natriuretic peptide B (Bld) [Mass/Vol] 5274 pg/mL High <=1800 [facility] Comment on above: Result Comment: Hear t Failure Unlikely: < 300 pg/mL Heart Failure Likely < 50 Years: > 450 pg/mL 50-75 Years: > 900 pg/mL >75 Years: > 1800 pg/mL Performed By: #### L 501.4021, L100.0500, L503.7505, L500.4050 #### [facility] [place], [address] Protein Test strip Ql (U)Ord ered By: Del Leyva on 05-29-2025 Protein Ql (U) 15 mg/dl High Negative [facility] RBC Auto (Bld) [#/Vol]Ordere d By: Del Leyva on 05-29-2025 RBC (Bld) [#/Vol] 3.46 10*6/uL Low 4.2-5.4 [facility] Random urine creatinine tisha urement (mass/volume)Ordered By: Conchita Burns on 05-29-2025 Creatinine Unsp time (U) [Mass/Vol] 43.90 mg/dL 28.00-217.00 [facility] Screening total cholesterol/ high density lipoprotein (HDL) cholesterol ratioOrdered By: Conchita Burns on 05-29-2025 Cholesterol.total/Choles terol in HDL [Mass ratio] 2.49 {ratio} [facility] Serum creatinine measurement (mass/volume)Ordered By: Del Leyva on 05-29-2025 Creatinine [Mass/Vol] 1.04 mg/dL 0.70-1.20 [facility] Serum globulin measurementOr dered By: Del Leyva on 05-29-2025 Globulin (S) [Mass/Vol] 2.3 g/dL 2.2-4.2 [facility] Serum glucose measurement (m ass/volume)Ordered By: Del Leyva on 05-29-2025 Glucose [Mass/Vol] 113 mg/dL High 70-99 [facility] Serum or plasma alanine de león otransferase (ALT) measurementOrdered By: Del Leyva on 05-29-2025 ALT [Catalytic activity/Vol] 23 U/L <35 [facility] Serum or plasma albumin tisha urement (mass/volume)Ordered By: Del Leyva on 05-29-2025 Albumin [Mass/Vol] 3.9 g/dL 3.4-4.8 [facility] [facility] Serum or plasma albumin/glob ulin mass ratioOrdered By: Del Leyva on 05-29-2025 Albumin/Globulin [Mass ratio] 1.7 {ratio} 0.9-2.4 [facility] Serum or plasma alkaline bud sphatase measurementOrdered By: Del Leyva on 05-29-2025 ALP [Catalytic activity/Vol] 76 U/L 35-104 [facility] Serum or plasma calcium tisha urement (mass/volume)Ordered By: Del Leyva on 05-29-2025 Calcium [Mass/Vol] 8.4 mg/dL 7.6-11.0 [facility] Serum or plasma cholesterol in HDL measurement (mass/volume)Ordered By: Conchita Burns on 05-29-2025 Cholesterol in HDL [Mass/Vol] 68 mg/dL >40 [facility] Comment on above: National Cholesterol Education Program (NCEP) guidelines:<40 mg/dL: Low HDL-cholesterol (major risk factor for CHD)>= 60 mg/dL: High HDL-cholesterol (negative risk factor for CHD)HDL-cholesterol is affected by a number of factors, e.g. smoking, exercise, hormones, sex and age. Serum or plasma cholesterol measurement (mass/volume)Ordered By: Conchita Burns on 05-29-2025 Cholesterol [Mass/Vol] 170 mg/dL <201 [facility] Comment on above: Cholesterol level, D esirable <200 mg/dLBorderline high cholesterol 200-239 mg/dLHigh cholesterol >=240 mg/dLRecommendations of the NCEP Adult Treatment Panel for the following risk-cutoff thresholds for the [place] population. Serum or plasma cortisol reina surement (mass/volume)Ordered By: Conchita Burns on 05-29-2025 Cortisol [Mass/Vol] 18.30 ug/dL High 2.68-10.50 [facility] Serum or plasma urea nitroge n measurement (mass/volume)Ordered By: Del Leyva on 05-29-2025 Urea nitrogen [Mass/Vol] 22 mg/dL High 4-19 [facility] Sodium levelOrdered By: Paty Leyva on 05-29-2025 Sodium [Moles/Vol] 107 mmol/L Low 133-145 [facility] Comment on above: Critical Result(s) C alled at: 1521 by: ISAC LOLLO TO MILLA TENNENT Results read back by same. Squamous epithelial cells de tection in urine sediment by light microscopyOrdered By: Del Leyva on 05-29-2025 Epithelial cells.squamous LM Ql (Urine sed) 0-5 SEEN /hpf 5-10 [facility] TSH DL <= 0.005 mIU/L QnOrde red By: Conchita Burns on 05-29-2025 TSH Qn 0.701 uIU/mL 0.300-4.200 [facility] Thyroid Stim Hormone (TSH)on 05-29-2025 TSH 0.701 uIU/mL Normal 0.300-4.200 [facility] Comment on above: Performed By: #### L 500.2500 #### [facility] [address] [place], [address] Total proteinOrdered By: Amilcar Leyva on 05-29-2025 Protein [Mass/Vol] 6.2 g/dL 5.9-8.4 [facility] Triglycerides measurementOrd ered By: Conchita Burns on 05-29-2025 Triglyceride [Mass/Vol] 96 mg/dL <199 [facility] Comment on above: The drugs N-Acetylcy steine and Metamizole may falsely depress this assay. Normal range: <150 mg/dLBorderline High: 150-199 mg/dLHigh: 200-499 mg/dLVery High: >500 mg/dL Troponin T HS 2 HRon 025 Trop T High Sen 17 ng/L High <=14 [facility] Comment on above: Performed By: #### L 501.4021, L100.0500, L503.7505, L500.4050 #### [facility] [address] [place], [place], [id number] (428) Troponin T HS 4 HRon 025 Trop T High Sen 17 ng/L High <=14 [facility] Comment on above: Performed By: #### L 500.2500 #### [facility] [address] [place], [address] Troponin T.cardiac [Mass/vol ume] in Serum or Plasma by High sensitivity methodOrdered By: Del Leyva on 05-29-2025 Troponin T.cardiac High sensitivity method [Mass/Vol] 17 ng/L High <14 [facility] Troponin T.cardiac High sensitivity method [Mass/Vol] 17 ng/L High <14 [facility] Troponin T.cardiac High sensitivity method [Mass/Vol] 20 ng/L High <14 [facility] Urea Nitrogen, Urineon 05-29 URINE UREA 358 mg/dL Normal NO RANGE EST. [facility] Comment on above: Performed By: #### L 501.4021, L100.0500, L503.7505, L500.4050 #### [facility] [address] [place], [address] Urinalysis, Completeon 05-29 EPI,SQUAMOUS 0-5 SEEN Normal 5-10 [facility] Comment on above: Order Comment: CLEAN CATCH Performed By: #### L 501.4021, L100.0500, L503.7505, L500.4050 #### [facility] [address] [place], [address] WBC 0-5 SEEN Normal 0-5 [facility] Comment on above: Order Comment: CLEAN CATCH Performed By: #### L 501.4021, L100.0500, L503.7505, L500.4050 #### [facility] [address] [place], [address] BACTERIA 0 SEEN Normal None Seen [facility] Comment on above: Order Comment: CLEAN CATCH Performed By: #### L 501.4021, L100.0500, L503.7505, L500.4050 #### [facility] [address] [place], [address] Mucus Ql (Urine sed) 0 SEEN Normal [facility] Comment on above: Order Comment: CLEAN CATCH Performed By: #### L 501.4021, L100.0500, L503.7505, L500.4050 #### [facility] [address] [place], [address] RBC 0 SEEN Normal 0-5 [facility] Comment on above: Order Comment: CLEAN CATCH Performed By: #### L 501.4021, L100.0500, L503.7505, L500.4050 #### [facility] [address] [place], [address] Urine Electrolytes- Randomon 05-29-2025 Chloride,URINE 80 mmol/L Normal Not Establ. [facility] Comment on above: Performed By: #### L 501.4021, L100.0500, L503.7505, L500.4050 #### [facility] [address] [place], [address] UR K 36.9 mmol/L Normal Not Establ. [facility] Comment on above: Performed By: #### L 501.4021, L100.0500, L503.7505, L500.4050 #### [facility] [address] [place], [address] Urine clarityOrdered By: Amilcar Leyva on 05-29-2025 Clarity (U) Sl. Cloudy Clear [facility] Urine color determinationOrd ered By: Del Leyva on 05-29-2025 Color (U) Yellow Yellow [facility] Urine glucose detectionOrder ed By: Del Leyva on 05-29-2025 Glucose Ql (U) Normal mg/dl Normal [facility] Urine leukocyte esterase det ection by dipstickOrdered By: Del Leyva on 05-29-2025 Leukocyte esterase Test strip Ql (U) 500 /ul High Negative [facility] Urine pHOrdered By: Del lima on 05-29-2025 pH (U) 7.0 [pH] 5.0 - 8.0 [facility] Urine potassium measurement (moles/volume)Ordered By: Conchita Burns on 05-29-2025 Potassium (U) [Moles/Vol] 36.9 mmol/L Not Establ. [facility] Urine sediment bacteria coun t by microscopy (number/high power field)Ordered By: Del Leyva on 05-29-2025 Bacteria LM.HPF (Urine sed) [#/Area] 0 /[HPF] None Seen [facility] Urine sodium measurement (mo les/volume)Ordered By: Conchita Burns on 05-29-2025 Sodium (U) [Moles/Vol] 84 mmol/L Normal Not Establ. [facility] Comment on above: Performed By: #### L 501.4021, L100.0500, L503.7505, L500.4050 #### [facility] [address] [place], [place], [id number] Urine specific gravity measu rementOrdered By: Del Leyva on 05-29-2025 Specific gravity (U) [Rel density] 1.010 1.002-1.030 [facility] Urine urobilinogen measureme ntOrdered By: Del Leyva on 05-29-2025 Urobilinogen Ql (U) Normal mg/dl Normal [facility] White blood cell (WBC) count Ordered By: Del Leyva on 05-29-2025 WBC (Bld) [#/Vol] 8.6 10*3/uL 4.4-11.0 [facility] White blood cell countOrdere d By: Del Leyva on 05-29-2025 White blood cell count 0-5 SEEN /hpf 0-5 [facility] ALVAR[facility]HEN ([id number]) 1945 F Date Time Provider Department 04/22/25 [facility] During [facility] today, we recorded the following information about you: Tiffanie Ruff MA 04/22/2025 8:56 AM Signed Type of letter/form/fax request - Medical Consultation Form Form received from fax on 1 floor and placed on MD desk (Dr. Luque) for completion. Completed form needs to be faxed to Dr. Irvin Gallo DMD, MD at [phone] [facility]. Route to [place] when form completed for processing Glenny Luque [...] Irvin Gallo DMD, MD at fax # [phone] [facility]. Shavonne Lopez RN Allergies As of Date: 04/22/2025 Noted Allergy Reaction CODEINE 09/10/2005 SPIRONOLACTONE 07/08/2019 14 - Other: See Comments Comments: lightheadedness SULFA (SULFONAMIDE ANTIBIOTICS) 09/10/2005 Date Reviewed: 03/22/2025 Reviewed by: Leeanne Sterling MA - Fully Assessed Reason for Visit: medical consultation form [Other] Cmt: [facility] Prescriptions as of 04/28/2025 - [...] and stay upright for 30 min. - fz-mko-rxgcl-calcium carb-K1 (WOMEN'S 50 PLUS MULTIVITAMIN) 400 mcg-500 [...] Status:Closed by SHAVONNE LOPEZ on 04/28/25 Normal [facility] Basic metabolic 2000 panelon 04-01-2025 Anion gap [Moles/Vol] 13 mmol/L Normal 8-15 [facility] Comment on above: Order Comment: Speci men Type: BLOOD SPECIMENOrdering Facility: [facility] Address: [address] [place] [address] Performed By: #### 2 4321-2 ####[facility] LABIA [id number] [address] [address] [place] Calcium [Mass/Vol] 9.6 mg/dL Normal 8.5-10.2 [facility] Comment on above: Order Comment: Speci men Type: BLOOD SPECIMENOrdering Facility: [facility] Address: [address] [place] [address] Performed By: #### 2 4321-2 ####[facility] LABIA [id number] [address] [address] [place] Chloride [Moles/Vol] 96 mmol/L Low 98-107 [facility] Comment on above: Order Comment: Speci men Type: BLOOD SPECIMENOrdering Facility: [facility] Address: [address] [place] [address] Performed By: #### 2 4321-2 ####[facility] LABCLIA [id number] [facility] [address] [address] [place] CO2 [Moles/Vol] 22 mmol/L Normal 22-30 [facility] Comment on above: Order Comment: Speci men Type: BLOOD SPECIMENOrdering Facility: [facility] Address: [facility] [place] [address] Performed By: #### 2 4321-2 ####[facility] LABCLIA [id number] [address] [address] [place] Creatinine [Mass/Vol] 1.03 mg/dL High 0.58-0.96 [facility] Comment on above: Order Comment: Speci men Type: BLOOD SPECIMENOrdering Facility: [facility] Address: [facility] [place] [address] Performed By: #### 2 4321-2 ####[facility] LABIA [id number] [address] [address] [place] Creatinine and Glomerular filtration rate.predicted panel (S/P/Bld) 56 mL/min/1.73m??? Low >=60 [facility] Comment on above: Order Comment: Speci men Type: BLOOD SPECIMENOrdering Facility: [facility] Address: [facility] [place] [address] Result Comment: Madisyn mated Glomerular Filtration Rate [...] actual GFR. Performed By: #### 2 4321-2 ####[facility] LABCLIA [id number] [employer] [address] [place] [address] [place] Glucose [Mass/Vol] 72 mg/dL Low 74-99 [facility] Comment on above: Order Comment: Alex billy Type: BLOOD SPECIMENOrdering Facility: [facility] Address: [facility] [place] [address] Result Comment: The [place] Diabetes Association (ADA) provides guidance for cutoff [...] Standards of Medical Care in Diabetes 2016, [place] Diabetes Association. Diabetes Care. 2016.39(Suppl 1). Performed By: #### 2 4321-2 ####[facility] LABCLIA [id number] [address] [address] [place] Potassium [Moles/Vol] 4.5 mmol/L Normal 3.7-5.1 [facility] Comment on above: Order Comment: Alex billy Type: BLOOD SPECIMENOrdering Facility: [facility] Address: [place] [address] Performed By: #### 2 4321-2 ####[facility] LABCLIA [id number] [address] [address] [place] Sodium [Moles/Vol] 131 mmol/L Low 136-144 [facility] Comment on above: Order Comment: Alex billy Type: BLOOD SPECIMENOrdering Facility: [facility] Address: [facility] [place] [address] Performed By: #### 2 4321-2 ####[facility] LABCLIA [id number] [facility] [address] [address] [place] Urea nitrogen [Mass/Vol] 27 mg/dL High 7-21 [facility] Comment on above: Order Comment: Speci men Type: BLOOD SPECIMENOrdering Facility: [facility] Address: [address] [place] [address] Performed By: #### 2 4321-2 ####[facility] LABCLIA [id number] [place] [address] [place] CNOVon 03-22-2025 CNOV Office Visit ([facility]) ALVARADO COHEN ([id number]) 1945 F Date Time Provider Department 03/22/25 3:20 PM [facility] During your visit today, we recorded the [...] tablet by mouth three times a day. mb-epa-ibkml-calcium carb-K1 (WOMEN'S 50 PLUS MULTIVITAMIN) 400 mcg-500 mg calcium-20 mcg tab Take 1 tablet by mouth once daily. metoprolol succinate ER (TOPROL XL) 50 mg 24 hr tablet Take 1 tablet by mouth two times a day. aspirin 325 mg tablet Take 325 mg by mouth as needed. CALCIUM 600 + D 600 MG-125 UNIT TAB Take one(1) tablet twice daily. No current facility-administere d medications on file prior to visit. Social [...] C Screening (more content not included)... Normal [facility] Basic metabolic 2000 panelon 02-22-2025 Anion gap [Moles/Vol] 10 mmol/L Normal 8-15 [facility] Comment on above: Order Comment: Alex billy Type: BLOOD SPECIMENOrdering Facility: [facility] Address: [facility] [place] [address] Performed By: #### 2 4321-2 ####[facility] LABCLIA [id number] [place] [address] [place] Calcium [Mass/Vol] 9.3 mg/dL Normal 8.5-10.2 [facility] Comment on above: Order Comment: Speci men Type: BLOOD SPECIMENOrdering Facility: [facility] Address: [address] [place] [address] Performed By: #### 2 4321-2 ####[facility] LABCLIA [id number] [address] [address] [place] Chloride [Moles/Vol] 95 mmol/L Low 98-107 [facility] Comment on above: Order Comment: Speci men Type: BLOOD SPECIMENOrdering Facility: [facility] Address: [address] [place] [address] Performed By: #### 2 4321-2 ####[facility] LABCLIA [id number] [place] [address] [place] CO2 [Moles/Vol] 24 mmol/L Normal 22-30 [facility] Comment on above: Order Comment: Speci men Type: BLOOD SPECIMENOrdering Facility: [facility] Address: [address] [place] [address] Performed By: #### 2 4321-2 ####[facility] LABCLIA [id number] [place] [address] [place] Creatinine [Mass/Vol] 0.98 mg/dL High 0.58-0.96 [facility] Comment on above: Order Comment: Speci men Type: BLOOD SPECIMENOrdering Facility: [facility] Address: [address] [place] [address] Performed By: #### 2 4321-2 ####[facility] LABCLIA [id number] [address] [address] [place] Creatinine and Glomerular filtration rate.predicted panel (S/P/Bld) 59 mL/min/1.73m??? Low >=60 [facility] Comment on above: Order Comment: Speci men Type: BLOOD SPECIMENOrdering Facility: [facility] Address: [address] [place] [address] Result Comment: Madisyn mated Glomerular Filtration Rate [...] actual GFR. Performed By: #### 2 4321-2 ####[facility] LABIA [id number] [address] [address] [place] Glucose [Mass/Vol] 88 mg/dL Normal 74-99 [facility] Comment on above: Order Comment: Alex billy Type: BLOOD SPECIMENOrdering Facility: [facility] Address: [address] [place], [place] [address] [id number] Result Comment: The [place] Diabetes Association (ADA) provides guidance for cutoff [...] Standards of Medical Care in Diabetes 2016, [place] Diabetes Association. Diabetes Care. 2016.39(Suppl 1). Performed By: #### 2 4321-2 ####[facility] LABIA [id number] [address] [address] [place] Potassium [Moles/Vol] 4.2 mmol/L Normal 3.7-5.1 [facility] Comment on above: Order Comment: Alex billy Type: BLOOD SPECIMENOrdering Facility: [facility] Address: [address] [place] [id number] Performed By: #### 2 4321-2 ####[facility] LABIA [id number] [address] [address] [place] Sodium [Moles/Vol] 129 mmol/L Low 136-144 [facility] Comment on above: Order Comment: Alex billy Type: BLOOD SPECIMENOrdering Facility: [facility] Address: [address] [place] [address] Performed By: #### 2 4321-2 ####[facility] LABIA [id number] [address] [address] [place] Urea nitrogen [Mass/Vol] 23 mg/dL High 7-21 [facility] Comment on above: Order Comment: Speci mariajose Type: BLOOD SPECIMENOrdering Facility: [facility] Address: [place] [address] Performed By: #### 2 4321-2 ####[facility] LABIA [id number] [address] [address] [place] BD DXA - AXIAL SKELETONon BD DXA - AXIAL SKELETON * * *Final Repor t* * * DATE OF EXAM: Jan 01 2025 12:46PM [facility] 0804 - BD DXA - AXIAL SKELETON / PROCEDURE REASON: Age-related osteoporosis without current pathological fracture * * * * Physician Interpretation * * * * EXAMINATION: DXA BONE DENSITOMETRY BD DXA - AXIAL SKELETON, BD DXA TRABECLR BONE SCORE (TBS) PATIENT DEMOGRAPHICS: Age: 79 years, Gender: Female SCANNER INFORMATION: DXA Model: Educeruswn - TinyCo C [address]451 Date Scanned: 01/01/2025 12:46 PM CLINICAL HISTORY: [...] FOR MORE INFORMATION ABOUT DIAGNOSIS AND TREATMENT: [facility] Center for Osteoporosis and Metabolic Bone Disease:? www.ccf.org/billy s/osteo National Osteoporosis Foundation:? www.nof.org International Society of Clinical Densitometry www.iscd.org Accounts Payable Clerk: PSCB Transcribe Date/Time: Jan 04 2025 11:04A Dictated by : MILO GONZALEZ MD This examination was interpreted and the report reviewed and electronically signed by: MILO GONZALEZ MD on Jan 04 2025 11:06AM EST [id number] CN -3.0 Normal [facility] BD DXA TRABECLR BONE SCORE ( TBS)on 01-01-2025 BD DXA TRABECLR BONE SCORE (TBS) * * *Final Report* * * DATE OF EXAM: Jan 01 2025 12:46PM [facility] 0801 - BD DXA TRABECLR BONE SCORE (TBS) / PROCEDURE REASON: Age-related osteoporosis without current pathological fracture * * * * Physician Interpretation * * * * EXAMINATION: DXA BONE DENSITOMETRY BD DXA - AXIAL SKELETON, BD DXA TRABECLR BONE SCORE (TBS) PATIENT DEMOGRAPHICS: Age: 79 years, Gender: Female SCANNER INFORMATION: DXA Model: Measurabl - TinyCo C [address]389 Date Scanned: 01/01/2025 12:46 PM CLINICAL HISTORY: [...] FOR MORE INFORMATION ABOUT DIAGNOSIS AND TREATMENT: [facility] Center for Osteoporosis and Metabolic Bone Disease:? www.ccf.org/billy s/osteo National Osteoporosis Foundation:? www.nof.org International Society of Clinical Densitometry www.iscd.org Accounts Payable Clerk: ALEX Transcribe Date/Time: Jan 04 2025 11:04A Dictated by : MILO GONZALEZ MD This examination was interpreted and the report reviewed and electronically signed by: MILO GONZALEZ MD on Jan 04 2025 11:06AM EST [id number] CN -3.0 Normal [facility] CBC W Auto Differential pane l (Bld)on 12-09-2024 Basophils (Bld) [#/Vol] 0.08 10*3/uL Normal <0.11 [facility] Comment on above: Order Comment: Speci men Type: BLOOD SPECIMENOrdering Facility: [facility] Address: [address] [place] [address] Performed By: #### 5 7021-8 ####[facility] LABCLIA [id number] [place] [address] [place] Basophils/100 WBC (Bld) 0.9 % Normal [facility] Comment on above: Order Comment: Speci men Type: BLOOD SPECIMENOrdering Facility: [facility] Address: [address] [place] [address] Performed By: #### 5 7021-8 ####[facility] LABCLIA [id number] [place] [address] [place] Differential cell count method Nom (Bld) Auto Normal [facility] Comment on above: Order Comment: Speci men Type: BLOOD SPECIMENOrdering Facility: [facility] Address: [address] [place] [address] Performed By: #### 5 7021-8 ####[facility] LABCLIA [id number] [place] [address] [place] Eosinophils (Bld) [#/Vol] 0.25 10*3/uL Normal <0.46 [facility] Comment on above: Order Comment: Speci men Type: BLOOD SPECIMENOrdering Facility: [facility] Address: [address] [place] [address] Performed By: #### 5 7021-8 ####[facility] LABCLIA [id number] [address] [place] Eosinophils/100 WBC (Bld) 2.8 % Normal [facility] Comment on above: Order Comment: Speci men Type: BLOOD SPECIMENOrdering Facility: [facility] Address: [address] [place] [address] Performed By: #### 5 7021-8 ####[facility] LABCLIA [id number] [place] [address] [place] Erythrocyte distribution width (RBC) [Ratio] 14.6 % Normal 11.5-15.0 [facility] Comment on above: Order Comment: Speci men Type: BLOOD SPECIMENOrdering Facility: [facility] Address: [address] [place] [address] Performed By: #### 5 7021-8 ####[facility] LABIA [id number] [place] [address] [place] Hematocrit (Bld) [Volume fraction] 36.5 % Normal 36.0-46.0 [facility] Comment on above: Order Comment: Speci men Type: BLOOD SPECIMENOrdering Facility: [facility] Address: [address] [place] [address] Performed By: #### 5 7021-8 ####[facility] LABCLIA [id number] [place] [address] [place] Hemoglobin (Bld) [Mass/Vol] 11.9 g/dL Normal 11.5-15.5 [facility] Comment on above: Order Comment: Speci men Type: BLOOD SPECIMENOrdering Facility: [facility] Address: [address] [place] [address] Performed By: #### 5 7021-8 ####[facility] LABIA [id number] [place] [address] [place] Immature granulocytes (Bld) [#/Vol] 10*3/uL Normal <0.10 [facility] Comment on above: Order Comment: Speci men Type: BLOOD SPECIMENOrdering Facility: [facility] Address: [address] [place] [address] Performed By: #### 5 7021-8 ####[facility] LABCLIA [id number] [place] [address] [place] Immature granulocytes/100 WBC (Bld) 0.2 % Normal [facility] Comment on above: Order Comment: Speci men Type: BLOOD SPECIMENOrdering Facility: [facility] Address: [address] [place] [address] Performed By: #### 5 7021-8 ####[facility] LABCLIA [id number] [place] [address] [place] Lymphocytes (Bld) [#/Vol] 1.66 10*3/uL Normal 1.00-4.00 [facility] Comment on above: Order Comment: Speci men Type: BLOOD SPECIMENOrdering Facility: [facility] Address: [address] [place] [address] Performed By: #### 5 7021-8 ####[facility] LABCLIA [id number] [place] [address] [place] Lymphocytes/100 WBC (Bld) 18.6 % Normal [facility] Comment on above: Order Comment: Speci men Type: BLOOD SPECIMENOrdering Facility: [facility] Address: [address] [place] [address] Performed By: #### 5 7021-8 ####[facility] LABCLIA [id number] [place] [address] [place] MCH (RBC) [Entitic mass] 29.0 pg Normal 26.0-34.0 [facility] Comment on above: Order Comment: Speci men Type: BLOOD SPECIMENOrdering Facility: [facility] Address: [address] [place] [address] Performed By: #### 5 7021-8 ####[facility] LABCLIA [id number] [place] [address] [place] MCHC (RBC) [Mass/Vol] 32.6 g/dL Normal 30.5-36.0 [facility] Comment on above: Order Comment: Speci men Type: BLOOD SPECIMENOrdering Facility: [facility] Address: [address] [place] [address] Performed By: #### 5 7021-8 ####[facility] LABCLIA [id number] [place] [address] [place] MCV (RBC) [Entitic vol] 88.8 fL Normal 80.0-100.0 [facility] Comment on above: Order Comment: Speci men Type: BLOOD SPECIMENOrdering Facility: [facility] Address: [address] [place] [address] Performed By: #### 5 7021-8 ####[facility] LABCLIA [id number] [place] [address] [place] Monocytes (Bld) [#/Vol] 0.85 10*3/uL Normal <0.87 [facility] Comment on above: Order Comment: Speci men Type: BLOOD SPECIMENOrdering Facility: [facility] Address: [address] [place] [address] Performed By: #### 5 7021-8 ####[facility] LABCLIA [id number] [place] [address] [place] Monocytes/100 WBC (Bld) 9.5 % Normal [facility] Comment on above: Order Comment: Speci men Type: BLOOD SPECIMENOrdering Facility: [facility] Address: [address] [place] [address] Performed By: #### 5 7021-8 ####[facility] LABCLIA [id number] [place] [address] [place] Neutrophils (Bld) [#/Vol] 6.06 10*3/uL Normal 1.45-7.50 [facility] Comment on above: Order Comment: Speci men Type: BLOOD SPECIMENOrdering Facility: [facility] Address: [address] [place] [address] Performed By: #### 5 7021-8 ####[facility] LABCLIA [id number] [place] [address] [place] Neutrophils/100 WBC (Bld) 68.0 % Normal [facility] Comment on above: Order Comment: Speci men Type: BLOOD SPECIMENOrdering Facility: [facility] Address: [address] [place] [address] Performed By: #### 5 7021-8 ####[facility] LABIA [id number] [place] [address] [place] Nucleated RBC (Bld) [#/Vol] 10*3/uL Normal <0.01 [facility] Comment on above: Order Comment: Speci men Type: BLOOD SPECIMENOrdering Facility: [facility] Address: [address] [place] [address] Performed By: #### 5 7021-8 ####[facility] LABIA [id number] [place] [address] [place] Nucleated RBC/100 WBC (Bld) [Ratio] 0.0 /100 WBC Normal [facility] Comment on above: Order Comment: Speci men Type: BLOOD SPECIMENOrdering Facility: [facility] Address: [address] [place] [address] Performed By: #### 5 7021-8 ####[facility] LABIA [id number] [place] [address] [place] Platelet mean volume (Bld) [Entitic vol] 9.9 fL Normal 9.0-12.7 [facility] Comment on above: Order Comment: Speci men Type: BLOOD SPECIMENOrdering Facility: [facility] Address: [address] [place] [address] Performed By: #### 5 7021-8 ####[facility] LABIA [id number] [place] [address] [place] Platelets (Bld) [#/Vol] 345 10*3/uL Normal 150-400 [facility] Comment on above: Order Comment: Speci men Type: BLOOD SPECIMENOrdering Facility: [facility] Address: [address] [place] [address] Performed By: #### 5 7021-8 ####[facility] LABCLIA [id number] [address] [address] [place] RBC (Bld) [#/Vol] 4.11 10*6/uL Normal 3.90-5.20 [facility] Comment on above: Order Comment: Speci men Type: BLOOD SPECIMENOrdering Facility: [facility] Address: [address] [place] [address] Performed By: #### 5 7021-8 ####[facility] LABCLIA [id number] [address] [address] [place] WBC (Bld) [#/Vol] 8.92 10*3/uL Normal 3.70-11.00 [facility] Comment on above: Order Comment: Speci men Type: BLOOD SPECIMENOrdering Facility: [facility] Address: [address] [place] [address] Performed By: #### 5 7021-8 ####[facility] LABCLIA [id number] [place] [address] [place] Comprehensive metabolic 2000 panelon 12-09-2024 Albumin [Mass/Vol] 4.4 g/dL Normal 3.9-4.9 [facility] Comment on above: Order Comment: Speci men Type: BLOOD SPECIMENOrdering Facility: [facility] Address: [address] [place] [address] Performed By: #### 2 4323-8, 99758-7 ####[facility] LABCLIA [id number] [place] [id number] [place] ALP [Catalytic activity/Vol] 90 U/L Normal 34-123 [facility] Comment on above: Order Comment: Speci men Type: BLOOD SPECIMENOrdering Facility: [facility] Address: [address] [place] [address] Performed By: #### 2 4323-8, 29880-6 ####[facility] LABCLIA [id number] [place] [address] [place] ALT [Catalytic activity/Vol] 21 U/L Normal 7-38 [facility] Comment on above: Order Comment: Speci men Type: BLOOD SPECIMENOrdering Facility: [facility] Address: [address] [place] [address] Performed By: #### 2 4323-8, 43190-9 ####[facility] LABCLIA [id number] [place] [address] [place] Anion gap [Moles/Vol] 11 mmol/L Normal 8-15 [facility] Comment on above: Order Comment: Speci men Type: BLOOD SPECIMENOrdering Facility: [facility] Address: [address] [place] [address] Performed By: #### 2 4323-8, 40236-9 ####[facility] LABCLIA [id number] [place] [address] [place] AST [Catalytic activity/Vol] 18 U/L Normal 13-35 [facility] Comment on above: Order Comment: Speci men Type: BLOOD SPECIMENOrdering Facility: [facility] Address: [address] [place] [address] Performed By: #### 2 4323-8, 04173-2 ####[facility] LABCLIA [id number] [place] [address] [place] Bilirubin [Mass/Vol] 0.3 mg/dL Normal 0.2-1.3 [facility] Comment on above: Order Comment: Speci men Type: BLOOD SPECIMENOrdering Facility: [facility] Address: [address] [place] [address] Performed By: #### 2 4323-8, 46774-3 ####[facility] LABCLIA [id number] [place] [address] [place] Calcium [Mass/Vol] 9.5 mg/dL Normal 8.5-10.2 [facility] Comment on above: Order Comment: Speci men Type: BLOOD SPECIMENOrdering Facility: [facility] Address: [address] [place] [address] Performed By: #### 2 4323-8, 22968-3 ####[facility] LABCLIA [id number] [place] [address] [place] Chloride [Moles/Vol] 95 mmol/L Low 98-107 [facility] Comment on above: Order Comment: Speci men Type: BLOOD SPECIMENOrdering Facility: [facility] Address: [address] [place] [address] Performed By: #### 2 4323-8, 06231-2 ####[facility] LABCLIA [id number] [place] [address] [place] CO2 [Moles/Vol] 23 mmol/L Normal 22-30 [facility] Comment on above: Order Comment: Speci men Type: BLOOD SPECIMENOrdering Facility: [facility] Address: [address] [place] [address] Performed By: #### 2 4323-8, 44686-1 ####[facility] LABCLIA [id number] [place] [address] [place] Creatinine [Mass/Vol] 1.11 mg/dL High 0.58-0.96 [facility] Comment on above: Order Comment: Speci men Type: BLOOD SPECIMENOrdering Facility: [facility] Address: [address] [place] [address] Performed By: #### 2 4323-8, 31162-8 ####[facility] LABCLIA [id number] [place] [address] [place] Creatinine and Glomerular filtration rate.predicted panel (S/P/Bld) 51 mL/min/1.73m??? Low >=60 [facility] Comment on above: Order Comment: Speci men Type: BLOOD SPECIMENOrdering Facility: [facility] Address: [address] [place] [address] Result Comment: Madisyn mated Glomerular Filtration Rate [...] actual GFR. Performed By: #### 2 4323-8, 09064-5 ####[facility] LABIA [id number] [place] [address] [place] Glucose [Mass/Vol] 89 mg/dL Normal 74-99 [facility] Comment on above: Order Comment: Specbernadine billy Type: BLOOD SPECIMENOrdering Facility: [facility] Address: [address] [place] [address] Result Comment: The [place] Diabetes Association (ADA) provides guidance for cutoff [...] Standards of Medical Care in Diabetes 2016, [place] [employer]. Diabetes Care. 2016.39(Suppl 1). Performed By: #### 2 4323-8, 37232-1 ####[facility] [id number] [place] [address] [place] Potassium [Moles/Vol] 4.6 mmol/L Normal 3.7-5.1 [facility] Comment on above: Order Comment: Alex billy Type: BLOOD SPECIMENOrdering Facility: [facility] Address: [address] [place] [address] Performed By: #### 2 4323-8, 73043-5 ####[facility] LABCLIA [id number] [place] [address] [place] Protein [Mass/Vol] 7.2 g/dL Normal 6.3-8.0 [facility] Comment on above: Order Comment: Speci men Type: BLOOD SPECIMENOrdering Facility: [facility] Address: [address] [place] [address] Performed By: #### 2 4323-8, 92893-7 ####[facility] LABCLIA [id number] [place] [address] [place] Sodium [Moles/Vol] 129 mmol/L Low 136-144 [facility] Comment on above: Order Comment: Speci men Type: BLOOD SPECIMENOrdering Facility: [facility] Address: [address] [place] [address] Performed By: #### 2 4323-8, 67953-6 ####[facility] LABCLIA [id number] [place] [address] [place] Urea nitrogen [Mass/Vol] 25 mg/dL High 7-21 [facility] Comment on above: Order Comment: Speci men Type: BLOOD SPECIMENOrdering Facility: [facility] Address: [address] [place] [address] Performed By: #### 2 4323-8, 89593-0 ####[facility] LABCLIA [id number] [place] [address] [place] Lipid 1996 panelon 5 Cholesterol [Mass/Vol] 192 mg/dL Normal <200 [facility] Comment on above: Order Comment: Speci men Type: BLOOD SPECIMENOrdering Facility: [facility] Address: [address] [place] [address] Result Comment: <200 mg/dL, Desirable 200-239 mg/dL, Borderline high >239 mg/dL, High Performed By: #### 2 4323-8, 77179-0 ####[facility] LABCLIA [id number] [address] OF [facility] Cholesterol in HDL [Mass/Vol] 83 mg/dL Normal >39 [facility] Comment on above: Order Comment: Alex billy Type: BLOOD SPECIMENOrdering Facility: [facility] Address: [address] [place] [address] Result Comment: 40-5 9 mg/dL, Acceptable >59 mg/dL, High: Negative risk factor for coronary heart disease <40 mg/dL, Low: Positive risk factor for coronary heart disease Performed By: #### 2 4323-8, 45906-3 ####[facility] LABIA [id number] [address] OF [facility] Cholesterol in LDL [Mass/Vol] 93 mg/dL Normal <100 [facility] Comment on above: Order Comment: Alex billy Type: BLOOD SPECIMENOrdering Facility: [facility] Address: [address] [place] [address] Result Comment: <100 mg/dL, Optimal 100-129 mg/dL, Near optimal/above optimal 130-159 mg/dL, Borderline high 160-189 mg/dL, High >189 mg/dL, Very high Secondary prevention optimal LDL Cholesterol levels are recommended to be < 70 mg/dL Performed By: #### 2 4323-8, 97816-8 ####[facility] [id number] [address] OF [facility] Cholesterol in LDL/Cholesterol in HDL [Mass ratio] 1.12 {ratio} Normal <2.54 [facility] Comment on above: Order Comment: Alex mariajose Type: BLOOD SPECIMENOrdering Facility: [facility] Address: [address] [place] [address] Result Comment: Elmer gay: 1. National Cholesterol Education Program ATP III Guideline At-A-Glance Quick Desk Reference: National Heart, Lung, and Blood [place]. National Institutes of Health. 2001: NIH Publication No. 01-3305. 2. An International Atherosclerosis Society position paper: global recommendations for the management of dyslipidemia: executive summary, Atherosclerosis. 2014: 232(2):410-413. Performed By: #### 2 4323-8, 34784-6 ####[facility] LABCLIA [id number] [place] [address] [place] Cholesterol in VLDL [Mass/Vol] 16 mg/dL Normal <30 [facility] Comment on above: Order Comment: Speci men Type: BLOOD SPECIMENOrdering Facility: [facility] Address: [address] [place] [address] Performed By: #### 2 4323-8, 47791-8 ####[facility] LABCLIA [id number] [place] [address] [place] Cholesterol non HDL [Mass/Vol] 109 mg/dL Normal <130 [facility] Comment on above: Order Comment: Speci men Type: BLOOD SPECIMENOrdering Facility: [facility] Address: [address] [place] [address] Result Comment: <130 mg/dL, Optimal 130-159 mg/dL, Near optimal/above optimal 160-189 mg/dL, Borderline high 190-219 mg/dL, High >219 mg/dL, Very high Secondary prevention optimal non HDL Cholesterol levels are recommended to be <100 mg/dL Performed By: #### 2 4323-8, 74856-3 ####[facility] LABCLIA [id number] [place] [address] [place] Cholesterol.total/Choles terol in HDL [Mass ratio] 2.31 {ratio} Normal <5.10 [facility] Comment on above: Order Comment: Speci men Type: BLOOD SPECIMENOrdering Facility: [facility] Address: [address] [place] [id number] Performed By: #### 2 4323-8, ####[facility] LABCLIA [id number] [place] [address] [place] FASTING TIME 12 hrs Normal [facility] Comment on above: Order Comment: Speci men Type: BLOOD SPECIMENOrdering Facility: [facility] Address: [address] [place] [address] [place] [address] Performed By: #### 2 4323-8, 44194-3 ####[facility] LABCLIA [id number] [place] [address] [place] Triglyceride [Mass/Vol] 79 mg/dL Normal <150 [facility] Comment on above: Order Comment: Speci men Type: BLOOD SPECIMENOrdering Facility: [facility] Address: [address] [place] [address] Result Comment: <150 mg/dL, Normal 150-199 mg/dL, Borderline high 200-499 mg/dL, High >499 mg/dL, Very high Performed By: #### 2 4323-8, 65697-7 ####[facility] LABCLIA [id number] [place] [address] [place] CNOVon 11-26-2024 CNOV Office Visit (FAMPWS) NOELALVARADO Wilbert ([id number]) 1945 F Date Time Provider Department 11/26/24 1:20 PM [facility] your visit today, we recorded the following information about you: Pulse Respiration Blood pressure Weight 70/minute 18/minute 166/64 55 kg Height 1.575 m Glenny Luque MD 11/26/2024 4:56 PM Signed Alvarado Wilbert Cohen is a 79 year old female [...] PCP - General (Family Medicine) Laurel Toure APRN.AGILE PROJECT MANAGER as Patient Support Representative (Family Medicine) Hans Mccray APRN.CNP as Patient Support Representative (Family Medicine) Porfirio Mei MD - Vascular Nora Govea DO - Nephrology Dr. Sifuentes - Ophthalmology Dr. Christensen - Dentistry Medical/Family history review Reviewed and updated problem list, medical/surgical/fam shaina/social history, medications, and allergies. Opioid use review [...] 22.18 k (more content not included)... Normal [facility] MR/BMSAlisa 10-21-2024 MR/BMS.EMORY [facility] Vascular Surgery [address] [place], [place] [address] OFFICE VISIT Date of Service: 10/21/24 MR#: [id number] Acct: [id number] Name: ALVARADO COHEN Rep #: [id number] : 1945 Provider: ERIC Post Age/Sex: 79/F Location: [facility] Status: Signed Intake Vital Signs 03/21/23 17:53 [...] Yes dise (more content not included)... Normal [facility] ACT Activated Clotting Timeo n 10-07-2024 ACTk CLOT TIME 204 sec High 74-137 [facility] Comment on above: Performed By: #### L 9100.0100 #### [facility] Laboratory [address] [place] [address] Basic Metabolic Profile (BMP )on 10-07-2024 BUN/CRE 23.9 RATIO High 10-20 [facility] Comment on above: Performed By: #### L 500.2500 #### [facility] [address] [place] [id number] [place],Total 9.3 mg/dL Normal 8.5-10.1 [facility] Comment on above: Performed By: #### L 500.2500 #### [facility] [address] [facility] [address] Chloride [Moles/Vol] 106 mmol/L Normal 98-107 [facility] Comment on above: Performed By: #### L 500.2500 #### [facility] [address] [place] [id number] CO2 [Moles/Vol] 25.0 mmol/L Normal 21.0-32.0 [facility] Comment on above: Performed By: #### L 500.2500 #### [facility] [address] [place], [address] Creatinine [Mass/Vol] 1.13 mg/dL High 0.55-1.02 [facility] Comment on above: Result Comment: The validity of the calculated GFR GFRAA in patients over 70 years has not been determined. Clinical correlation is essential. Performed By: #### L 500.2500 #### [facility] [address] [place], [address] ECRCL 33.94 ml/min Normal [facility] Comment on above: Performed By: #### L 500.2500 #### [facility] [address] [place], [address] EST GFR - AA 60 mL/min Normal >60 [facility] Comment on above: Result Comment: Afri can [place] GFR Calc Performed By: #### L 500.2500 #### [facility] [address] [place], [address] GAP 5 Normal 5-15 [facility] Comment on above: Performed By: #### L 500.2500 #### [facility] [address] [place], [address] GFR/1.73 sq M.predicted among non-blacks MDRD (S/P/Bld) [Vol rate/Area] 50 mL/min/{1.73_m2} Low >60 [facility] Comment on above: Result Comment: Non- GFR Calc Performed By: #### L 500.2500 #### [facility] [address] [place], [address] Glucose [Mass/Vol] 104 mg/dL Normal 74-106 [facility] Comment on above: Result Comment: Fast ing Glucose result from 100 to 125 mg/dL suggests IMPAIRED HOMEOSTASIS per A.D.A. criteria. Performed By: #### L 500.2500 #### [facility] [address] [place], [address] Potassium [Moles/Vol] 4.2 mmol/L Normal 3.5-5.1 [facility] Comment on above: Performed By: #### L 500.2500 #### [facility] [address] [place], [address] Sodium [Moles/Vol] 136 mmol/L Normal 136-145 [facility] Comment on above: Performed By: #### L 500.2500 #### [facility] [address] [place], [address] Urea nitrogen [Mass/Vol] 27 mg/dL High 7-18 [facility] Comment on above: Performed By: #### L 500.2500 #### [facility] [address] [place], [address] CBC-Complete Blood Cnt No Di ffon 10-07-2024 Erythrocyte distribution width (RBC) [Ratio] 14.5 % Normal 11.6-14.6 [facility] Comment on above: Performed By: #### L 500.2500 #### [facility] [address] [place], [address] Hematocrit (Bld) [Volume fraction] 35.6 % Low 37-47 [facility] Comment on above: Performed By: #### L 500.2500 #### [facility] [address] [place], [address] Hemoglobin (Bld) [Mass/Vol] 11.8 g/dL Low 12.0-15.0 [facility] Comment on above: Performed By: #### L 500.2500 #### [facility] [address] [place], [address] MCH (RBC) [Entitic mass] 29.7 pg Normal 27.0-32.0 [facility] Comment on above: Performed By: #### L 500.2500 #### [facility] [address] [place], [address] MCHC (RBC) [Mass/Vol] 33.1 g/dL Normal 32-36 [facility] Comment on above: Performed By: #### L 500.2500 #### [facility] [address] [place], [address] MCV (RBC) [Entitic vol] 89.7 fL Normal 81-99 [facility] Comment on above: Performed By: #### L 500.2500 #### [facility] [address] [place], [address] Platelet mean volume (Bld) [Entitic vol] 9.0 fL Normal 6.2-12.0 [facility] Comment on above: Performed By: #### L 500.2500 #### [facility] [address] [place], [address] Platelets (Bld) [#/Vol] 273 10*3/uL Normal 150-450 [facility] Comment on above: Performed By: #### L 500.2500 #### [facility] [address] [place], [address] RBC (Bld) [#/Vol] 3.97 10*6/uL Low 4.2-5.4 [facility] Comment on above: Performed By: #### L 500.2500 #### [facility] [address] [place], [address] RDW SD 47.9 fl High 35.1-43.9 [facility] Comment on above: Performed By: #### L 500.2500 #### [facility] [address] [place], [address] WBC (Bld) [#/Vol] 11.5 10*3/uL High 4.4-11.0 [facility] Comment on above: Performed By: #### L 500.2500 #### [facility] [address] [place], [address] Operative Reporton 4 Operative Report [facility] [address] [place] [address] Operative Report 10/07/24 1631 MR#: [id number] Acct: [id number] Name: ALVARADO COHEN CALLI Rep #: [id number] : 1945 79 From: Porfirio Mei MD PCP: Dr. 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 Through the 5 Polish sheath we attempted to navigate into the [...] sheath were then exchanged for a 6 Polish Halo sheath which was advanced over the wire and positioned in the visceral segment of the aorta. Using a multitude of wi (more content not included)... Normal [facility] Type AND Screen - PAT ONLYon 10-07-2024 ABO and Rh group Nom (Bld) Blood group A Rh(D) positive Normal [facility] Comment on above: Order Comment: NoNNSAORTAGRAM Performed By: #### L 500.2500 #### [facility] Laboratory [address] [place], [address] [facility] SCRE[facility]on 09-25-2024 [facility] SCREENING * * *Final Report* * * DATE OF EXAM: Sep 25 2024 1:07PM TRAM [id number] - [facility] SCREENING / PROCEDURE REASON: Visit for screening mammogram * * * * Physician Interpretation * * * * RESULT: [facility] [address] [place] [address] #[id number] - JOSEFA SCREENING HISTORY: Patient is 79 years old [...] Umu Cade M.D. Electronically signed on: 09/28/2024 Accounts Payable Clerk: MIHIR Transcribe Date/Time: Sep 25 2024 12:52P Dictated by: UMU CADE MD This examination was interpreted and the report reviewed and electronically signed by: UMU CADE MD on Sep 28 2024 4:50PM EST [id number] CN Normal [facility] MR/BMS.[place] 08-27-2024 MR/BMSVALERIY [facility] Vascular Surgery [address] [place] [address]. [address] [place], [place] [address] OFFICE VISIT Date of Service: 08/27/24 MR#: [id number] Acct: [id number] Name: ALVARADO COHEN Rep #: [id number] : 1945 Provider: Dr. Porfirio Mei MD Age/Sex: 79/F Location: [facility] Status: Signed Intake Vital Signs 03/21/23 17:53 [...] ROM and (more content not included)... Normal [facility] CNOVon 07-24-2024 CN Office Visit (UCWSTR) ALVARADO COHEN ([id number]) 1945 F Date Time Provider Department 07/24/24 11:00 AM ALLIE LYNCH [facility] During your visit today, we recorded the following information about you: Temperature Pulse Respiration Blood pressure 96.4 degrees 69/minute 18/minute 210/64 Weight 55 kg Allie Lynch APRN.AGILE PROJECT MANAGER 07/24/2024 11:37 AM Signed Subjective Came in [...] history is provided by the patient. No modern languages professor was used. Laceration Review of Systems Constitutional: [...] plan. Both wounds were redressed. Allie Lynch APRN.AGILE PROJECT MANAGER Allergies As of Date: 07/24/2024 Noted Allergy [...] As Of (more content not included)... Normal [facility] SCREENINGon 08-08-2023 [facility] Vital Signs Date Time Vital Sign Value Performing Clinician Facility 06-06-2025 13:59-0400 Diastolic blood pressure 40 mm[Hg] Dr. Glenny Luque MD Work Phone: [facility] 06-06-2025 13:59-0400 Heart rate 61 /min Dr. Glenny Luque MD Work Phone: [facility] 06-06-2025 13:59-0400 Systolic blood pressure 169 mm[Hg] Dr. Glenny Luque MD Work Phone: [facility] 06-06-2025 10:14-0400 Body temperature 98 [degF] Dr. Glenny Luque MD Work Phone: 1(846)604-578257 [place] [address] 06-06-2025 10:14-0400 Respiratory rate 12 /min Dr. Glenny Luque MD Work Phone: 3(797)138-233557 [place] [address] 06-06-2025 10:14-0400 SaO2% (BldA) [Mass fraction] 96 % Dr. Glenny Luque MD Work Phone: 1(070)411-616757 [place] [address] 06-06-2025 03:16-0400 Body mass index (BMI) [Ratio] 24.4 kg/m2 Dr. Glenny Luque MD Work Phone: 9(575)547-039657 [place] [address] 06-06-2025 03:16-0400 Body weight 62.[address] Glenny Luque MD Work Phone: 1(434)204-775857 [place] [address] 06-03-2025 11:40-0400 Body height 160.[address] Glenny Luque MD Work Phone: 7(519)589-065257 [place] [address] 05-29-2025 16:00-0400 Diastolic blood pressure 61 mm[Hg] Dr. Glenny Luque MD Work Phone: 6(946)220-779557 [place] [address] 05-29-2025 16:00-0400 Heart rate 68 /min Dr. Glenny Luque MD Work Phone: 5(635)915-120557 [place] [address] 05-29-2025 16:00-0400 Respiratory rate 13 /min Dr. Glenny Luque MD Work Phone: 6(841)961-257257 [place] [address] 05-29-2025 16:00-0400 SaO2% (BldA) [Mass fraction] 97 % Dr. Glenny Luque MD Work Phone: 3(513)209-200257 [place] [address] 05-29-2025 16:00-0400 Systolic blood pressure 198 mm[Hg] Dr. Glenny Luque MD Work Phone: 5(655)979-758157 [place] [address] 05-29-2025 15:33-0400 Body temperature 97.8 [degF] Dr. Glenny Luque MD Work Phone: 1(434)526-457057 [place] [address] 05-29-2025 12:48-0400 Body height 160.[address] Glenny Luque MD Work Phone: [facility] 05-29-2025 12:48-0400 Body mass index (BMI) [Ratio] 21.7 kg/m2 Dr. Glenny Luque MD Work Phone: [facility] 05-29-2025 12:48-0400 Body weight 55.[address] Glenny Luque MD Work Phone: [facility] 03-22-2025 15:20-0400 Diastolic blood pressure 68 mm[Hg] Glenny Luque MD Work Phone: [facility] 03-22-2025 15:20-0400 Systolic blood pressure 164 mm[Hg] Glenny Luque MD Work Phone: [facility] 03-22-2025 15:16-0400 Body mass index (BMI) [Ratio] 21.9 kg/m2 Glenny Luque MD Work Phone: [facility] 03-22-2025 15:16-0400 Body weight 54.3 kg Glenny Luque MD Work Phone: [facility] 03-22-2025 15:16-0400 Heart rate 62 /min Glenny Luque MD Work Phone: [facility] 03-22-2025 15:16-0400 Respiratory rate 18 /min Glenny Luque MD Work Phone: [facility] 11-26-2024 13:33-0500 Diastolic blood pressure 64 mm[Hg] Glenny Luque MD Work Phone: [facility] 11-26-2024 13:33-0500 Systolic blood pressure 166 mm[Hg] Glenny Luque MD Work Phone: [facility] 11-26-2024 13:30-0500 Body height 157.5 cm Glenny Luque MD Work Phone: [facility] 11-26-2024 13:30-0500 Body mass index (BMI) [Ratio] 22.18 kg/m2 Glenny Luque MD Work Phone: [facility] 11-26-2024 13:30-0500 Body weight 55 kg Glenny Luque MD Work Phone: [facility] 11-26-2024 13:30-0500 Heart rate 70 /min Glenny Luque MD Work Phone: [facility] 11-26-2024 13:30-0500 Respiratory rate 18 /min Glenny Luque MD Work Phone: [facility] 07-24-2024 11:00-0400 Body mass index (BMI) [Ratio] 21.48 kg/m2 Allie Lynch APRN.AGILE PROJECT MANAGER Work Phone: [facility] 07-24-2024 11:00-0400 Body temperature 96.4 [degF] Allie Lynch APRN.AGILE PROJECT MANAGER Work Phone: [facility] 07-24-2024 11:00-0400 Body weight 55 kg Allie Lynch APRN.AGILE PROJECT MANAGER Work Phone: [facility] 07-24-2024 11:00-0400 Diastolic blood pressure 64 mm[Hg] Allie Lynch APRN.AGILE PROJECT MANAGER Work Phone: [facility] Comment on above: BP checked x 2 210/73 07-24-2024 11:00-0400 Heart rate 69 /min Allie Lynch APRN.AGILE PROJECT MANAGER Work Phone: [facility] 07-24-2024 11:00-0400 Respiratory rate 18 /min Allie Lynch APRN.AGILE PROJECT MANAGER Work Phone: [facility] 07-24-2024 11:00-0400 SaO2% (BldA) [Mass fraction] 99 % Allie Lynch APRN.AGILE PROJECT MANAGER Work Phone: [facility] 07-24-2024 11:00-0400 Systolic blood pressure 210 mm[Hg] Allie Lynch APRN.AGILE PROJECT MANAGER Work Phone: [facility] Comment on above: BP checked x 2 210/73 03-20-2024 10:10-0400 Diastolic blood pressure 67 mm[Hg] Hans Mahendra DISABILITY AIDE.AGILE PROJECT MANAGER Work Phone: [facility] Comment on above: BP CHASITY AVERAGE 03-20-2024 10:10-0400 Heart rate 63 /min Hans Ramirezil DISABILITY AIDE.AGILE PROJECT MANAGER Work Phone: [facility] 03-20-2024 10:10-0400 Systolic blood pressure 200 mm[Hg] Hans Mahendra DISABILITY AIDE.AGILE PROJECT MANAGER Work Phone: [facility] Comment on above: BP CHASITY AVERAGE 03-20-2024 09:52-0400 Body mass index (BMI) [Ratio] 21.86 kg/m2 Hans Ramirezil DISABILITY AIDE.AGILE PROJECT MANAGER Work Phone: [facility] 03-20-2024 09:52-0400 Body weight 55.97 kg Hans Mccray DISABILITY AIDE.AGILE PROJECT MANAGER Work Phone: [facility] 03-20-2024 09:52-0400 Respiratory rate 16 /min Hans Mahendra DISABILITY AIDE.AGILE PROJECT MANAGER Work Phone: [facility] 03-20-2024 09:52-0400 SaO2% (BldA) [Mass fraction] 99 % Hans Mccray DISABILITY AIDE.AGILE PROJECT MANAGER Work Phone: [facility] 02-17-2024 11:30-0400 Diastolic blood pressure 67 mm[Hg] Hans Mahendra DISABILITY AIDE.AGILE PROJECT MANAGER Work Phone: [facility] 02-17-2024 11:30-0400 Heart rate 71 /min Hans Mahendra DISABILITY AIDE.AGILE PROJECT MANAGER Work Phone: [facility] 02-17-2024 11:30-0400 Systolic blood pressure 188 mm[Hg] Hans Mahendra DISABILITY AIDE.AGILE PROJECT MANAGER Work Phone: [facility] 02-17-2024 11:23-0400 Body weight 56.16 kg Hans Ramirezil DISABILITY AIDE.AGILE PROJECT MANAGER Work Phone: [facility] 02-17-2024 11:23-0400 Respiratory rate 16 /min Hans Mahendra DISABILITY AIDE.AGILE PROJECT MANAGER Work Phone: [facility] 02-17-2024 11:23-0400 SaO2% (BldA) [Mass fraction] 99 % Hans Mccray DISABILITY AIDE.AGILE PROJECT MANAGER Work Phone: [facility] 06-12-2023 12:30-0400 Body weight 55.34 kg Laurel Tannhof DISABILITY AIDE.AGILE PROJECT MANAGER Work Phone: [facility] 06-12-2023 12:30-0400 Diastolic blood pressure 76 mm[Hg] Laurel Tannhof DISABILITY AIDE.AGILE PROJECT MANAGER Work Phone: [facility] 06-12-2023 12:30-0400 Heart rate 75 /min Laurel Tannhof DISABILITY AIDE.AGILE PROJECT MANAGER Work Phone: [facility] 06-12-2023 12:30-0400 Respiratory rate 16 /min Laurel Tannhof DISABILITY AIDE.AGILE PROJECT MANAGER Work Phone: [facility] 06-12-2023 12:30-0400 SaO2% (BldA) [Mass fraction] 98 % Laurel Tannhof DISABILITY AIDE.AGILE PROJECT MANAGER Work Phone: [facility] 06-12-2023 12:30-0400 Systolic blood pressure 180 mm[Hg] Laurel Tannhof DISABILITY AIDE.AGILE PROJECT MANAGER Work Phone: [facility] 05-08-2023 12:50-0400 Body weight 55.79 kg Laurel Tannhof DISABILITY AIDE.AGILE PROJECT MANAGER Work Phone: [facility] 05-08-2023 12:50-0400 Diastolic blood pressure 80 mm[Hg] Laurel Tannhof DISABILITY AIDE.AGILE PROJECT MANAGER Work Phone: [facility] 05-08-2023 12:50-0400 Heart rate 58 /min Laurel Tannhof DISABILITY AIDE.AGILE PROJECT MANAGER Work Phone: [facility] 05-08-2023 12:50-0400 Respiratory rate 16 /min Laurel Tannhof DISABILITY AIDE.AGILE PROJECT MANAGER Work Phone: [facility] 05-08-2023 12:50-0400 SaO2% (BldA) [Mass fraction] 97 % Laurel Tannhof DISABILITY AIDE.AGILE PROJECT MANAGER Work Phone: [facility] 05-08-2023 12:50-0400 Systolic blood pressure 160 mm[Hg] Laurel Tannhof DISABILITY AIDE.AGILE PROJECT MANAGER Work Phone: [facility] 04-08-2023 13:28-0400 Body weight 55.34 kg Laurel Tannhof DISABILITY AIDE.AGILE PROJECT MANAGER Work Phone: [facility] 04-08-2023 13:28-0400 Diastolic blood pressure 60 mm[Hg] Laurel Tannhof DISABILITY AIDE.AGILE PROJECT MANAGER Work Phone: [facility] 04-08-2023 13:28-0400 Heart rate 77 /min Laurel Tannhof DISABILITY AIDE.AGILE PROJECT MANAGER Work Phone: [facility] 04-08-2023 13:28-0400 Respiratory rate 6 /min Laurel Tannhof DISABILITY AIDE.AGILE PROJECT MANAGER Work Phone: [facility] 04-08-2023 13:28-0400 SaO2% (BldA) [Mass fraction] 97 % Laurel Tannhof DISABILITY AIDE.AGILE PROJECT MANAGER Work Phone: [facility] 04-08-2023 13:28-0400 Systolic blood pressure 140 mm[Hg] Laurel Tannhof DISABILITY AIDE.AGILE PROJECT MANAGER Work Phone: [facility] 08-27-2022 10:05-0400 Body weight 54.88 kg Laurel Tannhof DISABILITY AIDE.AGILE PROJECT MANAGER Work Phone: [facility] 08-27-2022 10:05-0400 Diastolic blood pressure 80 mm[Hg] Laurel Tannhof DISABILITY AIDE.AGILE PROJECT MANAGER Work Phone: [facility] 08-27-2022 10:05-0400 Heart rate 83 /min Laurel Tannhof DISABILITY AIDE.AGILE PROJECT MANAGER Work Phone: [facility] 08-27-2022 10:05-0400 Respiratory rate 16 /min Laurel Tannhof DISABILITY AIDE.AGILE PROJECT MANAGER Work Phone: [facility] 08-27-2022 10:05-0400 SaO2% (BldA) [Mass fraction] 99 % Laurel Tannhof DISABILITY AIDE.AGILE PROJECT MANAGER Work Phone: [facility] 08-27-2022 10:05-0400 Systolic blood pressure 160 mm[Hg] Laurel Tejal DISABILITY AIDE.AGILE PROJECT MANAGER Work Phone: [facility] Encounters Encounter Date Encounter Type Care Provider Facility Start: 06-07-2025 End: 06-07-2025 Patient Outreach Tiffanie Ruff [facility] Comment on above: Transition Of Care Start: 06-06-2025 Non-patient / Non-visit Dr. Tiffanie Govea DO [facility] Work Phone: Start: 06-05-2025 Non-patient / [facility] Work Phone: Start: 06-04-2025 Non-patient / Non-visit Dr. Tiffanie Govea DO [facility] Work Phone: Start: 06-03-2025 Non-patient / Non-visit Dr. Tiffanie Govea DO [facility] Work Phone: Start: 06-02-2025 Non-patient / Non-[facility] Work Phone: Start: 06-01-2025 Non-patient / Non-visit Dr. Porfirio nuñez MD [facility] Start: 06-01-2025 Non-patient / Non-visit [facility] Webber nd, [facility] Start: 06-01-2025 Non-patient / Non-visit Dr. Tiffanie Govea DO [facility] Work Phone: Start: 05-31-2025 ambulatory Lisandro Bernardo Facility:[facility] Start: 05-31-2025 Non-patient / Non-visit Dr. Kelby RUELAS [facility] Start: 05-31-2025 Non-patient / Non-visit Dr. Tiffanie Govea DO [facility] Work Phone: Start: 05-30-2025 Non-patient / Non-visit Dr. Glenny Meza DO [facility] Work Phone: Start: 05-29-2025 ambulatory Glenny Luque Facilit y:[facility] Start: 05-29-2025 End: 06-06-2025 Evaluation and management of inpatient Dr. Conchita Burns MD -Intensive Care Unit Work Phone: Start: 04-22-2025 End: 04-28-2025 Telephone encounter Glenny Luque MD Work Phone: [facility] Comment on above: medical consultation form ([facility]) Start: 04-07-2025 End: 04-07-2025 ambulatory Faith Larkin [facility] [place] Start: 04-07-2025 End: 04-07-2025 [facility] [place] Comment on above: Population Health Na vigation Outreach ([facility] Start: 04-01-2025 End: 04-01-2025 ambulatory GLENNY LUQUE Facility:[facility] Start: 03-22-2025 End: 03-22-2025 Office outpatient visit 25 minutes Glenny Luque MD Work Phone: [facility] Comment on above: Essential hypertensi on, benign (Primary Dx); Resistant hypertension; Uncontrolled hypertension; Osteoporosis, unspecified osteoporosis type, unspecified pathological fracture presence; Claudication; Tobacco use disorder Start: 03-22-2025 End: 03-22-2025 ambulatory GLENNY LUQUE Facility:[facility] Start: 03-03-2025 End: 03-03-2025 ambulatory [facility]in [facility] [place] Start: 03-03-2025 End: 03-03-2025 Patient encounter procedure [facility] [place] Comment on above: Population Health Na vigation Outreach ([facility] ) Start: 02-22-2025 End: 02-22-2025 ambulatory GLENNY LUQUE Facility:[facility] Start: 01-25-2025 End: 01-25-2025 Refill Glenny Luque MD Work Phone: [facility] Comment on above: Refill Request Start: 01-04-2025 End: 03-06-2025 Follow-up encounter [facility] Start: 01-01-2025 End: 01-01-2025 ambulatory GLENNY LUQUE Facility:[facility] Start: 01-01-2025 End: 01-01-2025 Subsequent hospital visit by physician Bone Density [facility] Work Phone: Radiology Comment on above: Age-related osteopor osis without current pathological fracture [M81.0] Start: 12-09-2024 End: 12-09-2024 ambulatory GLENNY LUQUE Facility:[facility] Start: 12-09-2024 Patient encounter procedure GLENNY LUQUE [facility] Start: 11-26-2024 End: 11-26-2024 [facility] Start: 11-26-2024 End: 11-26-2024 Patient encounter procedure Glenny Luque MD Work Phone: [facility] Comment on above: Encounter for Medica re [...] Claudication (HCC) Start: 10-21-2024 End: 10-21-2024 ambulatory Glenny Luque Facility:[facility] Start: 10-07-2024 End: 10-07-2024 ambulatory Carissa Ordonez Facility:[facility] Start: 09-25-2024 End: 09-25-2024 ambulatory GLENNY LUQUE Facility:[facility] Start: 09-25-2024 End: 09-25-2024 Subsequent hospital visit by physician Screen Mammo [facility] Comment on above: Visit for screening mammogram [Z12.31] Start: 09-18-2024 End: 09-18-2024 ambulatory Jelani Ozuna MA [facility] [place] Start: 09-18-2024 End: 09-18-2024 Patient encounter procedure Jelani Ozuna MA [facility] [place] Comment on above: Population Health Na vigation Outreach ([employer]ge list 2023/) Start: 08-27-2024 End: 08-27-2024 ambulatory Glenny Luque Facility:[facility] Start: 07-24-2024 End: 07-24-2024 [facility] Start: 07-24-2024 End: 07-24-2024 Patient encounter procedure Allie Lynch APRN.AGILE PROJECT MANAGER Work Phone: [facility] Comment on above: Open wound (Primary Dx) Start: 03-26-2024 Telephone encounter Hans youngblood APRN.AGILE PROJECT MANAGER Work Phone: [facility] Comment on above: fax referral to Dr Alexander Govea Start: 03-23-2024 Refill Hans GILLETTE RN.AGILE PROJECT MANAGER Work Phone: [facility] Comment on above: Refill Request Medication Problem Start: 03-20-2024 End: 03-20-2024 Office outpatient visit 15 minutes Hans Mccray APRN.AGILE PROJECT MANAGER Work Phone: [facility] Comment on above: Essential hypertensi on, benign (Primary Dx); Uncontrolled hypertension Start: 03-10-2024 ambulatory Glenny bunch MD Work Phone: [facility] Comment on above: Ultrasound results Start: 03-10-2024 E-mail encounter fro m caregiver Glenny Luque MD Work Phone: [facility] Start: 03-10-2024 Telephone encounter Hans youngblood APRN.AGILE PROJECT MANAGER Work Phone: [facility] Comment on above: Results Start: 03-09-2024 Refill Hans GILLETTE RN.AGILE PROJECT MANAGER Work Phone: [facility] Comment on above: Refill Request Opened In Error Start: 03-06-2024 End: 03-06-2024 Subsequent hospital visit by physician [facility] Work Phone: Radiology Comment on above: Essential hypertensi on, benign [I10] Start: 02-18-2024 Telephone encounter Hans youngblood APRN.AGILE PROJECT MANAGER Work Phone: [facility] [place] Comment on above: Results Start: 02-17-2024 End: 02-17-2024 Office outpatient visit 15 minutes Hans Mccray APRN.AGILE PROJECT MANAGER Work Phone: [facility] Comment on above: Essential hypertensi on, benign (Primary Dx); Resistant hypertension Start: 02-06-2024 Refill Glenny bunch MD Work Phone: [facility] Comment on above: Refill Request Start: 01-11-2024 Refill Hans GILLETTE RN.AGILE PROJECT MANAGER Work Phone: [facility] Comment on above: Refill Request Start: 09-02-2023 Refill Laurel Toure APRN.AGILE PROJECT MANAGER Work Phone: [facility] Comment on above: Med Change Request Start: 08-08-2023 Documentation procedure Mammog kelechi Coordinator [facility] Start: 08-08-2023 Letter encounter Mammography Coordinator [facility] Department Start: 08-08-2023 End: 08-08-2023 Subsequent hospital visit by physician Screen Mammo [facility] Comment on above: Visit for screening mammogram [Z12.31] Start: 07-19-2023 Orders Only Glenny bunch MD Work Phone: [address] [place] [address] Comment on above: Visit for screening mammogram (Primary Dx) Start: 07-11-2023 Refill Laurel Toure APRN.AGILE PROJECT MANAGER Work Phone: [facility] Comment on above: Refill Request Start: 07-09-2023 Refill Glenny bunch MD Work Phone: [facility] Comment on above: Refill Request Start: 06-12-2023 ambulatory Laurel Toure APRN.AGILE PROJECT MANAGER Work Phone: [facility] Comment on above: BP post visit 06/12/23 Start: 06-12-2023 End: 06-12-2023 Patient encounter procedure Laurel Toure DISABILITY AIDE.NIKKI Work Phone: [facility] Comment on above: Uncontrolled hyperte nsion (Primary Dx) Start: 05-13-2023 Telephone encounter Laurel camp DISABILITY AIDE.NIKKI Work Phone: [facility] Comment on above: Consult Start: 05-08-2023 End: 05-08-2023 Patient encounter procedure Laurel Toure DISABILITY AIDE.AGILE PROJECT MANAGER Work Phone: [facility] Comment on above: Uncontrolled hyperte nsion (Primary Dx) Start: 04-08-2023 End: 04-08-2023 Patient encounter procedure Laurel Toure DISABILITY AIDE.NIKKI Work Phone: [facility] Comment on above: Essential hypertensi on, benign (Primary Dx) Start: 08-27-2022 End: 08-27-2022 Patient encounter procedure Laurel Toure DISABILITY AIDE.NIKKI Work Phone: [facility] [place] Comment on above: Essential hypertensi on, benign (Primary Dx); Hyperlipidemia with target LDL less than 100; Tobacco abuse Start: 06-14-2022 ambulatory Indio GILLETTE RN.RODRIGUEZ JORDAN Work Phone: Neurology Comment on above: Results Start: 06-14-2022 E-mail encounter fro m caregiver Indio Robledo APRN.CNP, DNP Work Phone: [facility] Start: 06-12-2022 Documentation procedure Mammog kelechi Coordinator [facility] Start: 06-12-2022 Letter encounter Mammography Coordinator [facility] Department Start: 06-11-2022 End: 06-11-2022 Subsequent hospital visit by physician Screen Mammo [facility] Mammogram Comment on above: Visit for screening mammogram [Z12.31] Start: 06-08-2022 Orders Only Indio GILLETTE RN.RODRIGUEZ JORDAN Work Phone: [facility] Comment on above: Visit for screening mammogram (Primary Dx) Procedures Date Procedure Procedure Detail Performing Clinician Start: 06-06-[address] Glenny Luque MD Work Phone: Start: 06-02-2025 MRI of lumbar spine Dr. Glenny Luque MD Work Phone: Start: 06-01-[address] Glenny hurtado MD Work Phone: Start: 06-01-2025 Serum inorganic phosphate measurement Dr. Glenny Luque MD Work Phone: Start: 05-31-2025 CT of chest without contrast Dr. Glenny ross MD Work Phone: Start: 05-31-[address] Glenny Luque MD Work Phone: Start: 05-31-2025 Total iron binding capacity measurement Dr. Glenny Luque MD Work Phone: Start: 05-29-2025 Osmolality measurement, serum Dr. Glenny fisher MD Work Phone: Start: 05-29-[address] Glenny Luque MD Work Phone: Start: 05-29-2025 Chloride measurement, urine Dr. Glenny gray MD Work Phone: Start: 05-29-2025 Urea nitrogen measurement, urine Dr. Heather Luque MD Work Phone: Start: 05-29-2025 Urnls dip stick/tablet reagent auto microscopy Dr. Glenny Luque MD Work Phone: Start: 05-29-2025 Plain chest X-ray Dr. Glenny Luque MD Work Phone: Start: 05-29-2025 CT of head without contrast Dr. Glenny gray MD Work Phone: Start: 08-08-2023 Screening mammography bi 2-view breast inc cad Glenny Luque MD Work Phone: Start: 06-21-2021 Adult depression screening assessment Indio Robledo APRN.AGILE PROJECT MANAGER, DNP Work Phone: Start: 06-10-2017 Colonoscopy Indio Robledo APRN.CNP, DNP Work Phone: Plan of Treatment Date Care Activity Detail Author Start: 07-16-2028 Urine microalbumin profile [facility] Start: 04-01-2028 Diabetes Screening Diabetes Screenin g [facility] Start: 02-23-2028 Diabetes Screening Diabetes Screenin g [facility] Start: 12-09-2027 Diabetes Screening Diabetes Screenin g [facility] Start: 06-10-2027 Colonoscopy COLONOSCOPY [facility] Start: 06-10-2027 COLORECTAL CANCER SCREENING COLORECTAL CANCER SCREENING [facility] Start: 02-16-2027 Diabetes Screening Diabetes Screenin g [facility] Start: 01-01-2027 Screening for osteoporosis Bone Dens ity Screening [facility] Start: 07-06-2026 LIPID SCREEN LIPID SCREEN [facility] Start: 03-22-2026 Annual PCP Team Business Continuity Consultant kimberlee Disease Visit Annual PCP Team Chronic Disease Visit [facility] Start: 03-22-2026 Covid-19 Vaccine ( season) Covid-19 Vaccine () [facility] Comment on above: Postponed from 02/17 (Declined at this time) Start: 11-26-2025 Annual PCP Team Business Continuity Consultant kimberlee Disease Visit Annual PCP Team Chronic Disease Visit [facility] Start: 11-26-2025 Medicare Annual Well ness Visit Medicare Annual Wellness Visit [facility] Start: 10-19-2025 DIABETES SCREEN DIABETES SCREEN [facility] Start: 10-19-2025 Diabetes Screening Diabetes Screenco g [facility] Start: 07-05-2025 Influenza vaccination Influenza Vacc ine (#1) [facility] Start: 06-10-2025 End: 06-10-2025 Patient encounter procedure 06/10/2025 2:20 PM EDT Office Visit [facility] [place] [address] [place] [address] Glenny Luque MD [address] [place] [id number] [facility] follow up [facility] Medicine [place] Comment on above: [facility] hospital follow up Start: 06-06-2025 Patient discharge [facility] Start: 06-04-2025 [facility] Start: 06-03-2025 Administration of bl ood product [facility] Start: 06-01-2025 End: 06-01-2025 Application of intermittent pneumatic compression device [facility] Start: 06-01-2025 Referral to gastroenterology service [facility] Start: 06-01-2025 Administration of bl ood product [facility] Start: 06-01-2025 [facility] Start: 05-31-2025 Referral to asset analyst [facility] Start: 05-31-2025 Referral to vascular surgeon [facility] Start: 05-31-2025 Inhalation therapy procedure [facility] Start: 05-29-2025 Following clinical p athway protocol [facility] Start: 05-29-2025 Assessment of risk o f venous thromboembolism [facility] Start: 05-29-2025 Insertion of cathete r into peripheral vein [facility] Start: 05-29-2025 Measuring intake and output [facility] Start: 05-29-2025 Providing care accor ding to standard [facility] Start: 05-29-2025 Referral to occupati onal therapist [facility] Start: 05-29-2025 Referral to service [facility] Start: 05-29-2025 Vital signs measurements [facility] Start: 05-29-2025 [facility] Start: 05-29-2025 Admission procedure [facility] Start: 05-29-2025 Verification routine [facility] Start: 05-29-2025 Osmolality measureme nt, serum [facility] Start: 05-29-2025 Hospital admission, emergency, from emergency room, medical nature [facility] Start: 05-29-2025 Electrolytes measure ment, urine [facility] Start: 05-29-2025 Urea nitrogen measur ement, urine [facility] Start: 05-29-2025 [facility] Start: 05-29-2025 Patient referral to dietitian [facility] Start: 03-22-2025 End: 03-22-2025 Patient encounter procedure 03/22/2025 3:20 PM EDT Office Visit [facility] [address] [place] [address] Glenny Luque MD [address] [place] [address] follow up Family [facility] [place] Comment on above: follow up Start: 03-20-2025 Annual PCP Team Business Continuity Consultant kimberlee Disease Visit Annual PCP Team Chronic Disease Visit [facility] Start: 03-01-2025 End: 03-01-2025 Patient encounter procedure Family [facility] [place] Comment on above: 3 mo f/u HTN Start: 02-17-2025 Covid-19 Vaccine () Covid-19 Vaccine () [facility] Start: 02-16-2025 Annual PCP Team Business Continuity Consultant kimberlee Disease Visit Annual PCP Team Chronic Disease Visit [facility] Start: 01-01-2025 End: 01-01-2025 Patient encounter procedure 01/01/2025 12:30 PM EST Appointment Radiology [address] [place] [id number] Age-related osteoporosis without current pathological fracture [M81.0] Radiology Comment on above: Age-related osteopor osis without current pathological fracture [M81.0] Start: 12-14-2024 End: 12-14-2024 Patient encounter procedure 12/14/2024 2:30 PM EST Office Visit Vascular Surgery [address] [address] Uncontrolled hypertension [I10]; Leg fatigue [R29.898]; Claudication (HCC) [I73.9] Vascular Surgery Comment on above: Uncontrolled hyperte nsion [I10]; Leg fatigue [R29.898]; Claudication (HCC) [I73.9] Start: 11-26-2024 End: 02-25-2025 CBC W Auto Differential panel - Blood COMPLETE BLOOD COUNT AND DIFFERENTIAL Lab Routine Encounter for Medicare annual wellness exam Uncontrolled hypertension Expected: 11/26/2024, Expires: 02/25/2025 [facility] Comment on above: Expected: 11/26/2024 , Expires: 02/25/2025 Start: 11-26-2024 End: 02-25-2025 Comprehensive metabolic 2000 panel - Serum or Plasma COMPREHENSIVE METABOLIC PANEL Lab Routine Encounter for Medicare annual wellness exam Uncontrolled hypertension Hyperlipidemia with target LDL less than 100 Expected: 11/26/2024, Expires: 02/25/2025 [facility] Comment on above: Expected: 11/26/2024 , Expires: 02/25/2025 Start: 11-26-2024 End: 02-25-2025 Lipid 1996 panel - Serum or Plasma LIPID PANEL BASIC Lab Routine Encounter for Medicare annual wellness exam Uncontrolled hypertension Hyperlipidemia with target LDL less than 100 Expected: 11/26/2024, Expires: 02/25/2025 [facility] Comment on above: Expected: 11/26/2024 , Expires: 02/25/2025 Start: 11-09-2024 End: 11-09-2024 Patient encounter procedure 11/09/2024 12:00 PM EST Office Visit Family Medicine [place] [address] [place], [place] [phone] Glenny Luque MD [address] [place], [place] [phone] AWV is PRIMARY/Follow up Family Medicine [place] Comment on above: AWV is PRIMARY/Follo w up Start: 11-04-2024 Advance Directive Discussion Advance Directive Discussion [facility] Start: 09-25-2024 End: 09-25-2024 Patient encounter procedure 09/25/2024 12:50 PM EST Appointment Mammogram [address] [place], [place] [id number] encounter for routine screening MAMMOGRAM*pended order Glenny Luque MD Mammogram Comment on above: encounter for routin e screening MAMMOGRAM*pended order Glenny Luque MD Start: 07-06-2024 DIABETES SCREEN DIABETES SCREEN [facility] Start: 07-05-2024 Covid-19 Vaccine ( season) Covid-19 Vaccine () [facility] Start: 07-05-2024 Influenza vaccination Influenza Vacc ine (#1) [facility] Start: 06-22-2024 End: 06-22-2024 Patient encounter procedure 06/22/2024 2:40 PM EDT Office Visit Family [facility] [place] [address] [place] [phone] Glenny Luque MD [address] [place], [place] [phone] 3 Month F/U [facility] Comment on above: 3 Month F/U Start: 06-12-2024 ANNUAL PCP TEAM MARKETING COMMUNICATIONS LEADER KIMBERLEE DISEASE VISIT ANNUAL PCP TEAM CHRONIC DISEASE VISIT [facility] Start: 05-08-2024 ANNUAL PCP TEAM MARKETING COMMUNICATIONS LEADER KIMBERLEE DISEASE VISIT ANNUAL PCP TEAM CHRONIC DISEASE VISIT [facility] Start: 04-08-2024 ANNUAL PCP TEAM MARKETING COMMUNICATIONS LEADER KIMBERLEE DISEASE VISIT ANNUAL PCP TEAM CHRONIC DISEASE VISIT [facility] Start: 03-20-2024 End: 03-20-2024 Patient encounter procedure 03/20/2024 10:00 AM EDT Office Visit [facility] [address] [place], [place] [phone] Hans Mccray APRN.AGILE PROJECT MANAGER [address] [place] [address] BP follow up Family [facility] [place] Comment on above: BP follow up Start: 02-17-2024 End: 05-18-2024 ALDOSTERONE/DIRECT RENIN RATIO [facility] Work Phone: Comment on above: Expected: 02/17/2024 , Expires: 05/18/2024 Start: 02-17-2024 End: 05-18-2024 Basic metabolic 2000 panel - Serum or Plasma [facility] Work Phone: Comment on above: Expected: 02/17/2024 (Approximate), Expires: 05/18/2024 Start: 12-10-2023 Covid-19 Vaccine () Covid-19 Vaccine () [facility] Start: 11-04-2023 Advance Directive Discussion Advance Directive Discussion [facility] Start: 11-04-2023 Behavioral Health Screening Behavioral Health Screening [facility] Start: 11-04-2023 Depression Assessment Depression Ass essment [facility] Start: 08-27-2023 ANNUAL PCP TEAM MARKETING COMMUNICATIONS LEADER KIMBERLEE DISEASE VISIT ANNUAL PCP TEAM CHRONIC DISEASE VISIT [facility] Start: 07-05-2023 Covid-19 Vaccine () Covid-19 Vaccine () [facility] Start: 07-05-2023 Influenza vaccination [facility] Start: 12-14-2022 COVID-19 VACCINE (7 - Moderna series) COVID-19 VACCINE (7 - Moderna series) [facility] Start: 11-04-2022 ADVANCE DIRECTIVE DISCUSSION ADVANCE DIRECTIVE DISCUSSION [facility] Start: 08-27-2022 End: 10-27-2022 Comprehensive metabolic 2000 panel - Serum or Plasma COMP METABOLIC PANEL Lab Routine Essential hypertension, benign Expected: 08/27/2022, Expires: 10/27/2022 [facility] Work Phone: Comment on above: Expected: 08/27/2022 , Expires: 10/27/2022 Start: 08-27-2022 End: 10-27-2022 Lipid 1996 panel - Serum or Plasma LIPID PANEL BASIC Lab Routine Hyperlipidemia with target LDL less than 100 Expected: 08/27/2022, Expires: 10/27/2022 [facility] Work Phone: Comment on above: Expected: 08/27/2022 , Expires: 10/27/2022 Start: 07-05-2022 Influenza vaccination INFLUENZA (#1) [facility] Start: 06-26-2022 ANNUAL PCP TEAM MARKETING COMMUNICATIONS LEADER KIMBERLEE DISEASE VISIT ANNUAL PCP TEAM CHRONIC DISEASE VISIT [facility] Start: 06-26-2022 BP CONTROLLED (<130/80) BP CONTROLLE D (<130/80) [facility] Start: 06-26-2022 Influenza vaccination LUNG CANCER [facility] Comment on above: Postponed from 06/20 (Declined at this time) Start: 06-21-2022 Adult depression [facility] assessment DEPRESSION SCREENING [facility] Start: 11-04-2021 ADVANCE DIRECTIVE DISCUSSION ADVANCE DIRECTIVE DISCUSSION [facility] Start: 04-09-2018 Screening for osteoporosis Bone Dens ity Screening [facility] Start: 2006 RSV Vaccine (1 - 1-d ose 60+ series) RSV Vaccine (1 - 1-dose 60+ series) [facility] Start: 1996 Influenza vaccination LUNG CANCER [facility] Start: 1996 Screening for malign ant neoplasm of lung Lung Cancer Screening [facility] Start: 1991 COLOGUARD (FIT-DNA) COLOGUARD (FIT-D NA) [facility] Start: [address] COLONOGRAPHY [facility] Start: 1991 FECAL OCCULT BLOOD FECAL OCCULT BLOO D [facility] Start: 1991 SIGMOIDOSCOPY SIGMOIDOSCOPY [facility]onia mu[facility]oz [facility] Start: 1964 Anxiety Screening Anxiety Screening [facility] Start: 1964 Depression Screening Depression Scre ening [facility] End: 12-26-2025 BD DXA TRABECULAR BONE SCORE (TBS) BD DXA TRABECULAR BONE SCORE (TBS) Radiology Routine Age-related osteoporosis without current pathological fracture 1 Occurrences starting 11/26/2024 until 12/26/2025 [facility] Comment on above: 1 Occurrences starti ng 11/26/2024 until 12/26/2025 BD DXA TRABECULAR JOSE NE SCORE (TBS) BD DXA TRABECULAR BONE SCORE (TBS) Radiology Routine Age-related osteoporosis without current pathological fracture 01/01/2025 12:47 PM EST [facility] End: 12-26-2025 DXA Skeletal system.axial Views for bone density DXA-AXIAL SKELETON Radiology Routine Age-related osteoporosis without current pathological fracture 1 Occurrences starting 11/26/2024 until 12/26/2025 [facility] Comment on above: 1 Occurrences starti ng 11/26/2024 until 12/26/2025 DXA Skeletal system. axial Views for bone density DXA-AXIAL SKELETON Radiology Routine Age-related osteoporosis without current pathological fracture 01/01/2025 12:47 PM EST [facility] Work Phone: JOSEFA SCREENING JOSEFA SCREENING Ra diology Routine Visit for screening mammogram Ordered: 07/21/2023 [facility] Work Phone: Comment on above: Ordered: 07/21/2023 MG Breast Screening JOSEFA SCREENIN G Radiology Routine Visit for screening mammogram 09/25/2024 1:08 PM EST [facility] Work Phone: Osmolality of Urine [facility] Screening mammograph y bi 2-view breast inc cad [facility] Work Phone: Comment on above: Ordered: 06/08/2022 Troponin T.cardiac [Mass/volume] in Serum or Plasma by High sensitivity method [facility] End: 03-18-2025 US Kidney - bilateral and Urinary bladder US KIDNEY/BLADDER Radiology Routine Essential hypertension, benign Resistant hypertension 1 Occurrences starting 02/17/2024 until 03/18/2025 [facility] Work Phone: Comment on above: 1 Occurrences starti ng 02/17/2024 until 03/18/2025 US Kidney - bilatera l and Urinary bladder US KIDNEY/BLADDER Radiology Routine Essential hypertension, benign Resistant hypertension 03/06/2024 11:35 AM EDT [facility] Work Phone: End: 11-26-2025 US.doppler Extremity arteries - bilateral for physiologic artery study PVR ANK PRESS [facility] Vascular Lab Routine Uncontrolled hypertension Leg fatigue Claudication (HCC) 1 Occurrences starting 11/26/2024 until 11/26/2025 [facility] Work Phone: Comment on above: 1 Occurrences starti ng 11/26/2024 until 11/26/2025 [facility] Immunizations Immunization Date Immunization Notes Care Provider Jose Martin lopez 08-19-2024 COVID-19 vaccine, ag e 12+ yr (PFIZER-BIONTECH COMIRNATY) Jelani Ozuna [facility] 08-19-2024 influenza virus vacc ine, unspecified formulation Jelani Llanesshire [facility] 08-31-2023 respiratory syncytia l virus (RSV) vaccine, bivalent (ABRYSVO) Laurel Toure DISABILITY AIDE.AGILE PROJECT MANAGER Work Phone: [facility] 08-13-2023 influenza, high dose seasonal, preservative-free Laurel Toure DISABILITY AIDE.AGILE PROJECT MANAGER Work Phone: [facility] 08-13-2023 influenza virus vacc ine, unspecified formulation Allie Lynch DISABILITY AIDE.AGILE PROJECT MANAGER Work Phone: [facility] 08-13-2022 COVID-19 booster vaccine, age 12+ yr, bivalent (PFIZER-BIONTECH) Laurel Toure DISABILITY AIDE.AGILE PROJECT MANAGER Work Phone: [facility] 07-19-2022 influenza (aIIV4) vaccine, age 65+ yr, quadrivalent, PF (FLUAD QUADRIVALENT) Laurel Toure APRN.[facility] Work Phone: [facility] Work Phone: 07-19-2022 influenza, high-dose , quadrivalent vaccine (FLUZONE HIGH DOSE QUADRIVALENT) Laurel Toure APRN.[facility] Work Phone: [facility] 07-19-2022 influenza virus vacc ine, unspecified formulation Glenny Luque MD Work Phone: [facility] 02-06-2022 COVID-19 vaccine, booster dose (MODERNA) Indio Robledo APRN.[facility], [facility] Work Phone: [facility] 09-06-2021 COVID-19 vaccine, fu ll dose (MODERNA) Indio Robledo APRN.[facility], [facility] Work Phone: [facility] 08-06-2021 influenza virus vacc ine, unspecified formulation Indio Robledo APRN.[facility], [facility] Work Phone: [facility] 01-18-2021 COVID-19 vaccine, fu ll dose (MODERNA) Indio Robledo APRN.[facility], [facility] Work Phone: [facility] 12-21-2020 COVID-19 vaccine, fu ll dose (MODERNA) Indio Robledo APRN.[facility], [facility] Work Phone: [facility] 12-01-2020 zoster vaccine recombinant Indio Robledo APRN.[facility], [facility] Work Phone: [facility] 09-28-2020 zoster vaccine recombinant Indio Robledo APRN.[facility] Work Phone: [facility] Work Phone: 07-19-2020 influenza virus vacc ine, unspecified formulation Indio Robledo APRN.[facility], [facility] Work Phone: [facility] 07-18-2020 influenza, high dose seasonal, preservative-free Indio Robledo APRN.[facility], [facility] Work Phone: [facility] Work Phone: 08-04-2019 influenza, high dose seasonal, preservative-free Indio Blakevin DISABILITY AIDE.[facility] Work Phone: [facility] 07-05-2019 influenza virus vacc ine, unspecified formulation Indio Robledo APRN.[facility] Work Phone: [facility] 07-16-2018 diphtheria, tetanus toxoids and acellular pertussis vaccine Indio Robledo APRN.[facility] Work Phone: [facility] 07-16-2018 influenza virus vacc ine, unspecified formulation Indio Robledo APRN.[facility] Work Phone: [facility] 08-04-2017 influenza virus vacc ine, unspecified formulation Indio Robledo APRN.[facility] Work Phone: [facility] 08-17-2016 influenza, high dose seasonal, preservative-free Indio Robledo APRN.[facility] Work Phone: [facility] 03-26-2016 pneumococcal conjuga te vaccine, 13 valent Indio Robledo APRN.[facility] Work Phone: [facility] 08-04-2013 pneumococcal polysaccharide vaccine, 23 valent Indio Robledo APRN.[facility] Work Phone: [facility] 10-06-2009 novel influenza-H1N1 -09, preservative-free, injectable Indio Robledo APRN.[facility] Work Phone: [facility] 08-04-2008 tetanus toxoid, redu kodak diphtheria toxoid, and acellular pertussis vaccine, adsorbed Indio Robledo APRN.[facility] Work Phone: [facility] Work Phone: 04-18-2008 pneumococcal polysaccharide vaccine, 23 valent Indio Robledo APRN.[facility] Work Phone: [facility] Work Phone: 01-05-2008 zoster vaccine, live Inido Robledo APRN.[facility] Work Phone: [facility] 11-04-1996 diphtheria and tetan us toxoids, adsorbed for pediatric use Indio Blaz DISABILITY AIDE.AGILE PROJECT MANAGER, DNP Work Phone: [facility] Work Phone: Payers Date Payer Category Payer Self-pay 2013 Private Health Insurance [facility] [employer] [id number] 2013-Present [phone] [address] [place] [address] Indemnity [id number] 2013 Private Health Insurance [id number] 2013 Unknown [id number] 2011 Medicare MEDICARE MEDICAR E A AND B [id number] 2011-Present [phone] [address] [address] [place] [address] Medicare [id number] 2011 Medicare [id number] 2011 Medicare [id number] Unknown [id number] Unknown [id number] .[id number] Unknown [id number] .462 Unknown [id number] .462 Unknown [id number] .462 Unknown [id number] .462 Unknown [id number] .462 Unknown [id number] [id number] .462 Unknown [id number] [id number] .462 Unknown [id number] [id number] .462 Unknown [id number] [id number] .462 Unknown [id number] .462 Unknown [id number] [id number] .462 Unknown [id number] 2.16.840.1.073329.3.579.2 .462 Unknown [id number] [id number] .462 Unknown [id number] .462 Unknown [id number] .462 Unknown [id number] .462 Social History Date Type Detail Facility Start: 06-26-2021 End: 11-26-2024 Tobacco smoking status NHIS Smokes tobacco daily [facility] History of tobacco use Cigarette Smoker C [facility] Start: 06-26-2021 End: 03-22-2025 Alcohol intake Current non-drinker of alcohol (finding) [facility] Start: 06-21-2021 End: 03-21-2023 History SDOH Alcohol Frequency 1 [facility] Start: 06-21-2021 End: 03-21-2023 History SDOH Social Connections Phone 3 [facility] Start: 06-21-2021 End: 03-21-2023 History SDOH Social Connections Get Together 98 [facility] Start: 06-21-2021 End: 03-21-2023 History SDOH Social Connections Living 5 [facility] Start: 06-21-2021 End: 03-21-2023 History SDOH Stress 2 [facility] Start: 06-21-2021 Education 18 [facility] Start: 1945 Sex Assigned At Female [facility] Start: 05-29-2022 End: 08-27-2022 Exposure to SARS-CoV-2 (event) Not sure [facility] Start: 06-26-2021 End: 03-21-2023 Cigarettes smoked current (pack per day) - Reported 1 [facility] Start: 06-26-2021 End: 11-26-2024 Tobacco use and exposure Smokeless tobacco non-user [facility] Work Phone: Start: 08-21-2022 End: 03-21-2023 History SDOH Alcohol Std Drinks 0 [facility] Start: 08-21-2022 History SDOH Financial 4 [facility] Start: 03-21-2023 End: 03-17-2024 Social connection and isolation panel [facility] In a typical week, h ow many times do you talk on the telephone with family, friends, or neighbors? Patient refused [facility] Do you belong to any clubs or organizations such as confucianism groups, unions, fra[employer]obo[employer] or athletic groups, or school groups? Yes [facility] Are you now , , , , never or living with a partner? [facility] How often to you hav e a drink containing alcohol? Never [facility] Do you feel stress - tense, restless, nervous, or anxious, or unable to sleep at night because your mind is troubled all the time - these days [OSQ] Not at all [facility] (I/We) worried wheth er (my/our) food would run out before (I/we) got money to buy more. Never true [facility] In the past 12 month s, was there a time when you were not able to pay the mortgage or rent on time? No [facility] Start: 06-17-2019 Gender identity Identifies as female gender (finding) [facility] Start: 06-17-2019 Sexual orientation Heterosexual (finding) [facility] How hard is it for y ou to pay for the very basics like food, housing, medical care, and heating Not very hard [facility] Start: 11-26-2024 Tobacco Comment Trying to reduce, smoking 10 or less. [facility] Do you feel stress - tense, restless, nervous, or anxious, or unable to sleep at night because your mind is troubled all the time - these days [OSQ] Only a little [facility] Start: 05-29-2025 Tobacco smoking status NHIS Current Heavy tobacco smoker [facility] Start: 05-30-2025 Tobacco smoking status NHIS Current Light tobacco smoker [facility] Goals Date Patient Goal Desired Activity /State Functional Status Date Assessment Result Facility 06-06-2025 Functional status Ambulates [facility] Work Phone: 03-23-2015 Are you deaf, or do you have serious difficulty hearing No 03/23/2015 11:35 AM EDT Joana Duran LPN No [facility] 03-23-2015 Are you blind, or do you have serious difficulty seeing, even when wearing glasses No 03/23/2015 11:35 AM EDT Joana Duran LPN No [facility] 03-23-2015 Do you have serious difficulty walking or climbing stairs No 03/23/2015 11:35 AM EDT Joana Duran LPN No [facility] 03-23-2015 Do you have difficul ty dressing or bathing No 03/23/2015 11:35 AM EDT Joana Duran LPN No [facility] 03-23-2015 Because of a physica l, mental, or emotional condition, do you have difficulty doing errands alone such as visiting a physician's office or shopping No 03/23/2015 11:35 AM EDT Joana Duran LPN No [facility] Mental Status Date Assessment Result Facility 06-06-2025 Cognitive function Voice/Name [facility] Work Phone: 05-29-2025 Cognitive function Level Of Cons ciousness Awake;Alert;Appropriate;Fol lows Commands [facility] Work Phone: 03-23-2015 Because of a physica l, mental, or emotional condition, do you have serious difficulty concentrating, remembering, or making decisions No 03/23/2015 11:35 AM EDT Joana Duran LPN No [facility] Clinical Notes 02-26-2014 to 06-07-2025 Tiffanie Ruff MA - 06/07/2025 2:17 PM EDT Note Date & Type Note Facility 06-07-2025 History of Present illness Narrative TRANSITION CARE MANAGEMENT (TCM) INITIAL CONTACT Treasury Representative Outreach Provider Action/FYI: 7 Day TCM Doing ok, feeling ok other than little energy at this time. Eating ok. Initial contact with patient post discharge, spoke to patient June 07, 2025 Patient identified by name and . TRANSITION CARE MANAGEMENT INITIAL OUTREACH DOCUMENTATION: 06/07/2025 Date of Outreach: Outreach Attempt 1: Contact Made Date of Discharge 06/06/2025 SUMMARY: -Pt discharged from [facility] on 06/06/25. -Admitted for: 1) Hypo-osmolar hyponatremia 2) hypomagnesemia 3) Hypokalemia 4) Renal Artery Stenosis 5) Uncontrolled HTN 6) Acute Anemia 7) Gi Bleed 8) lower extremity weakness 9) Paraesthesia lower extremity Below copied from [employer]: MDM Narrative Medical decision making narrative: HISTORY OF PRESENT ILLNESS: Chief complaint: 79year-old female history of hypertension, renal artery stenosis presents with shortness of breath associated with swelling, dizziness and weakness. Notes this began 4 days ago. Endorses history of renal artery stenosis. Denies headache but notes occasional dizziness specifically with standing. Notes compliance with home antihypertensives. Denies any falls or trauma. She denies any chest pain but notes some shortness of breath specifically with exertion. While swelling was endorsed in the triage note the patient denies lower extremity edema. Denies cough fever or chills. The patient denies recent surgery in the last 4 weeks or immobilization in the last 3 days, denies previous diagnosis of DVT or PE, hemoptysis, unilateral leg swelling or malignancy with treatment the last 6 months or palliative. No estrogen use noted. Denies any bleeding diathesis MDM Narrative: The patient was initially hypertensive with a blood pressure 185/54 otherwise afebrile and nontoxic-appearing. Exam without focal I considered the following differential diagnosis: ICH, anemia, elec electrolyte disturbance, endorgan damage from elevated blood pressure, ACS, CHF exacerbation I obtained a broad lab and imaging workup to further determine if the patient was suffering from a life-threatening etiology. Initially treat the patient with IV labetalol to lower blood pressure. ALL IMAGES (IF OBTAINED) HAVE BEEN PERSONALLY REVIEWED AND INTERPRETED BY MYSELF. CBC with no leukocytosis, noted mild anemia but no thrombocytopenia noted BMP with hyponatremia, no hypokalemia, no anion gap, no metabolic acidosis Mild FTs High-sensitivity troponin is negative, no evidence of myocardial ischemiax3 Initial BNP elevated consistent with volume overload Urinalysis shows no evidence of urinary inflammation suggestive of UTI The synthesis of the patient's history, physical exam, labs images suggest severe electrolyte abnormalities as the precipitating cause. Repeat neurologic remained intact. No sign of seizure at this time. Given profound hyponatremia will admit the patient to ICU. Discussed with Dr. Burns. The patient and/or family, caregivers express understanding. The patient and/or family, caregivers agrees with the plan. Shared decision making: I will have a discussion with the patient and or visitors regarding risk/benefits of further testing or admission. They will be made aware of of the risk/benefits inherent in this decision they will be given the opportunity to voice understanding. Total critical care time today provided was at least 60 minutes. This excludes separately billable procedures. Critical care time (if documented) is secondary to the patient having high probability of clinically significant/life threatening deterioration in the patient's condition which required my urgent intervention. Impression: 1. Hyponatremia 2. Diffuse weakness 3. Poorly controlled hypertension Dispo: Admit to ICU Discharge Diagnosis (1) Hypo-osmolar hyponatremia: Status: Acute Code(s): E87.1 - Hypo-osmolality and hyponatremia (2) Hypomagnesemia: Status: Acute Code(s): E83.42 - Hypomagnesemia (3) Hypokalemia: Status: Acute Code(s): E87.6 - Hypokalemia (4) Renal artery stenosis: Status: Chronic Code(s): I70.1 - Atherosclerosis of renal artery (5) Uncontrolled hypertension: Status: Acute Code(s): I10 - Essential (primary) hypertension (6) Acute anemia: Status: Acute Code(s): D64.9 - Anemia, unspecified (7) GI bleed: Status: Acute Code(s): K92.2 - Gastrointestinal hemorrhage, unspecified (8) Lower extremity weakness: Status: Acute Code(s): R29.898 - Other symptoms and signs involving the musculoskeletal system (9) Paresthesia of lower extremity: Status: Acute Code(s): R20.2 - Paresthesia of skin Minutes Spent on Discharge: 45 Hospital Course: Patient is a 79-year-old white female who presented to the emergency department was from a hospital on 05/29/2025 with chief complaint of weakness and lightheadedness. Patient was having increased shortness of breath, swelling, dizziness and weakness for about 4 days prior to presentation. She reported occasional dizziness with standing but denied headache. She had no falls or traumas and has been compliant with her home antihypertensive regimen however she does have complex hypertension with history of renal artery stenosis with previous attempted intervention by vascular surgery without success. Vital signs on presentation showed temperature 97.8, heart rate 68, blood pressure was 185/54 with a pulse ox of 96% on room air. CBC showed a normal white count, hemoglobin of 10.2. UA was not suggestive of infection, proBNP was 5274 with a troponin of 20. CMP was markedly abnormal with a serum sodium of 106, potassium of 3.5, chloride 73, BUN was 21 with a serum creatinine of 1.06. Glucose was 121 and liver profile was unremarkable. Given her profound hyponatremia we were consulted for admission. She had been on chlorthalidone for some time as an outpatient. She follows with Dr. Govea from nephrology for her blood pressure and they has been trying to better regulate her antihypertensive regimen. Patient does have a history of tobacco abuse. She was admitted to the floor and found to have hypoosmolar hyponatremia. Her thiazide diuretic was discontinued and nephrology was consulted. A CT of the chest was performed to rule out ADH producing lung malignancy and this was unremarkable. An echocardiogram was done given her uncontrolled hypertension and she was found have an EF of 65% with moderate eccentric mitral valve insufficiency, pulmonary systolic pressure of 52 mmHg and moderate pulmonary hypertension. 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 Ultimately her thiazide diuretic was discontinued to at the time of discharge. She was given 2 doses of tolvaptan and her serum sodium at the time of discharge was 124. She has close follow-up with Dr. Govea, her asset analyst, on 06/09/2025 with repeat lab being pursued and ongoing workup and intervention by nephrology. Her blood pressure medicines were also altered during her hospitalization. Vascular surgery was reconsulted but given their previous attempts deferred any ongoing attempts with recommendations to transfer to tertiary center however repeat renal duplex was performed and found to be unremarkable which was interesting. She was also noted to have a decrease in her hemoglobin slowly early on in her hospitalization and her hemoglobin dipped down to the low sevens. She was given 2 units of packed red blood cells and GI was consulted for suspected GI bleed. At that time she was placed on IV Protonix. An EGD was performed on 06/01/2025 and she was found to have gastric ulcers as well as multiple small bowel AVMs that were treated with heater probe having good hemostasis following. Ultimately, her hemoglobin did stabilize. She will be discharged on Protonix 40 mg p.o. twice daily for 3 months and Carafate 1 g 4 times daily for 8 weeks with outpatient follow-up within the next month following with GI. She had mild troponin elevation that was likely related to her GI bleed and marked metabolic issues on presentation. She had transient hypotension which resolved and ANTONINO. Renal function was improving at the time of discharge but she did develop a metabolic acidosis which she was started bicarb p.o. twice daily and was discharged on this dose for short-term. Her hospitalization was complex and she finally stabilized on 06/06/2025 he was able to be discharged home in stable condition with new medications. New prescriptions for iron, hydralazine with increased dose, isosorbide dinitrate, Protonix, bicarb, and Carafate were sent to her local pharmacy at the time of discharge she has follow-up on Saturday, I have asked her to call Dr. Valdovinos's office to schedule outpatient GI follow-up to be seen within the next month. Advised her follow-up with her primary care physician within the next week if possible. Patient was discharged home in stable condition with prescriptions sent to her local pharmacy prior to discharge on 06/06/2025. Do you have a hospital follow up appointment with your PCP? Appointment on 06/10/25 with PCP. Yes. Remind patient of appointment date, time, and location. If not within 14 calendar days of discharge - please reschedule accordingly. MEDICATIONS: Many patients have questions or concerns about their medications once they are home. Were you prescribed any new medications? If yes, what are those medications? Hydralazine 50 mg taking 100 mg TID Isosorbide 20 mg, taking 40 mg TID Pantoprazole 40 mg BID Sodium Bicarbonate 650 mg 1 pill BID Sucralfate 1 gram Ferrous sulfate 325 mg BID Were you told to hold any medications? No Were any of your medications discontinued? If yes, what are those medications? Chlorthalidone 25 mg Lisinopril 30 mg Hydralazine 25 mg Do you have any questions about getting or taking your medications? No Your discharge instructions/After visit Summary (AVS) are important in guiding you through the recovery process. Is there anything I might help you understand? No Do you have all the necessary equipment and supplies at home? Yes Medical records from recent hospitalization: Placed for provider to review documented in this encounter [facility] 06-06-2025 Hospital Discharge instructions Additional Instructions Please be sure to follow-up with Dr. Govea from nephrology as instructed. She will be ordering outpatient labs to be done this week to recheck your kidney function and and your sodium level Date of Discharge: 06/06/25 [facility] Work Phone: 06-06-2025 Discharge summary [facility] 06-06-2025 Discharge summary Note Date/Time June 06, 2025 12:41pm [facility] Medical Records Department [address] [place] [address] Discharge Summary 06/06/25 0738 MR#: [id number] Acct: [id number] Name: ALVARADO COHEN Rep #:[id number] : 1945 79 From: Tiffanie Govea DO PCP: Dr. Glenny Luque MD Status:AD IN Location: [place] [id number] Providers Date of Admission: 05/29/25 Date of Discharge: 06/06/25 Primary Care Physician: Dr. Glenny Luque MD Consultations 05/31/25 11:31 Consult: Vascular Surgery Routine Consulting Provider: Porfirio Mei Reason for Consult: renal artery stenosis EMERGENT Consult: No Notified: Yes Date Notified: 05/31/25 Time Notified: 12:08 Method of Notification: Verbal 05/31/25 11:47 Consult: Nephrology Routine Consulting Provider: Nora Govea Reason for Consult: hyponatremia EMERGENT Consult: No Notified: Yes Date Notified: 05/31/25 Time Notified: 09:30 Method of Notification: Verbal 06/01/25 08:11 Consult: Gastroenterology Routine Consulting Provider: [facility] Reason for Consult: Acute anemia with suspected GI loss EMERGENT Consult: No MD Notified: Yes Date Notified: 06/01/25 Time Notified: 08:11 Method of Notification: Text Reason For Visit: HYPONATREMIA Diagnosis Discharge Diagnosis (1) Hypo-osmolar hyponatremia: Status: Acute Code(s): E87.1 - Hypo-osmolality and hyponatremia (2) Hypomagnesemia: Status: Acute Code(s): E83.42 - Hypomagnesemia (3) Hypokalemia: Status: Acute Code(s): E87.6 - Hypokalemia (4) Renal artery stenosis: Status: Chronic Code(s): I70.1 - Atherosclerosis of renal artery (5) Uncontrolled hypertension: Status: Acute Code(s): I10 - Essential (primary) hypertension (6) Acute anemia: Status: Acute Code(s): D64.9 - Anemia, unspecified (7) GI bleed: Status: Acute Code(s): K92.2 - Gastrointestinal hemorrhage, unspecified (8) Lower extremity weakness: Status: Acute Code(s): R29.898 - Other symptoms and signs involving the musculoskeletal system (9) Paresthesia of lower extremity: Status: Acute Code(s): R20.2 - Paresthesia of skin Medications at Discharge Home Medications amlodipine 10 mg tablet 10 mg PO DAILY 03/21/23 metoprolol succinate 50 mg tablet,extended release 24 hr 50 mg PO BID 08/27/24 ferrous sulfate 325 mg (65 mg iron) tablet (FeroSul) 325 mg PO 1200,1700 #60 tabs 06/06/25 hydralazine 50 mg tablet 100 mg (2 x 50 mg) PO TID #90 tabs 06/06/25 isosorbide dinitrate 20 mg tablet 40 mg (2 x 20 mg) PO TID #90 tabs 06/06/25 pantoprazole 40 mg tablet,delayed release 40 mg PO BID #60 tabs 06/06/25 sodium bicarbonate 650 mg tablet 650 mg PO BID #60 tabs 06/06/25 sucralfate 1 gram tablet 1 g PO 1HR_ACHS #120 tabs 06/06/25 Hospital Course Operations None Procedures 2-D Echocardiogram, Blood transfusion, EGD, EKG and - (CT brain/MRI lumbar spine/CT chest/chest x-ray/renal duplex) Summary of Care Provided Minutes Spent on Discharge: 45 Hospital Course: Patient is a 79-year-old white female who presented to the emergency department was from a hospital on 05/29/2025 with chief complaint of weakness and lightheadedness. Patient was having increased shortness of breath, swelling, dizziness and weakness for about 4 days prior to presentation. She reported occasional dizziness with standing but denied headache. She had no falls or traumas and has been compliant with her home antihypertensive regimen however she does have complex hypertension with history of renal artery stenosis with previous attempted intervention by vascular surgery without success. Vital signs on presentation showed temperature 97.8, heart rate 68, blood pressure [id number] with a pulse ox of 96% on room air. CBC showed a normal white count, hemoglobin of 10.2. UA was not suggestive of infection, proBNP was 5274 with a troponin of 20. CMP was markedly abnormal with a serum sodium of 106, potassiumof 3.5, chloride 73, BUN was 21 with a serum creatinine of 1.06. Glucose was 121 and liver profile was unremarkable. Given her profound hyponatremia we wereconsulted for admission. She had been on chlorthalidone for some time as an outpatient. She follows with Dr. Govea from nephrology for her blood pressure andthey has been trying to better regulate her antihypertensive regimen. Patient does have a history of tobacco abuse. She was admitted to the floor and found to have hypoosmolar hyponatremia. Her thiazide diuretic was discontinued and nephrology was consulted. A CT of the chest was performed to rule out ADH producing lung malignancy and this was unremarkable. An echocardiogram was donegiven her uncontrolled hypertension and she was found have an EF of 65% with moderate eccentric mitral valve insufficiency, pulmonary systolic pressure of 52mmHg and moderate pulmonary hypertension. 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 Ultimately her thiazide diuretic was discontinued to at the time of discharge. She was given 2 doses of tolvaptan and her serum sodium at the time of discharge was 124. She has close follow-up with Dr. Govea, her asset analyst, on 06/09/2025 with repeat lab being pursued and ongoing workup and intervention by nephrology. Her blood pressure medicines were also altered during her hospitalization. Vascular surgery was reconsulted but given their previous attempts deferred any ongoing attempts with recommendations to transferto tertiary center however repeat renal duplex was performed and found to be unremarkable which was interesting. She was also noted to have a decrease in her hemoglobin slowly early on in her hospitalization and her hemoglobin dipped down to the low sevens. She was given 2 units of packed red blood cells and GI was consulted for suspected GI bleed. At that time she was placed on IV Protonix. An EGD was performed on 06/01/2025 and she was found to have gastric ulcers as well as multiple small bowel AVMs that were treated with heater probe having good hemostasis following. Ultimately, her hemoglobin did stabilize. She will be discharged on Protonix 40 mg p.o. twice daily for 3 months and Carafate 1 g 4 times daily for 8 weeks with outpatient follow-up within the nextmonth following with GI. She had mild troponin elevation that was likely related to her GI bleed and marked metabolic issues on presentation. She had transient hypotension which resolved and ANTONINO. Renal function was improving at the time of discharge but she did develop a metabolic acidosis which she was started bicarb p.o. twice daily and was discharged on this dose for short-term. Her hospitalization was complex and she finally stabilized on 06/06/2025 he was able to be discharged home in stable condition with new medications. New prescriptions for iron, hydralazine with increased dose, isosorbide dinitrate, Protonix, bicarb, and Carafate were sent to her local pharmacy at the time of discharge she has follow-up on Saturday, I have asked her to call Dr. Valdovinos's office to schedule outpatient GI follow-up to be seen within the next month. Advised her follow-up with her primary care physician within the next week if possible. Patient was discharged home in stable condition with prescriptions sent to her local pharmacy prior to discharge on 06/06/2025. 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 ANTONINO secondary to ATN Metabolic acidosis secondary to ANTONINO Acute onset bilateral lower extremity paresthesias and weakness-resolved Uncontrolled hypertension Acute on chronic anemia Peptic ulcer disease Small bowel bleeding AVMs Troponin elevation secondary to demand ischemia from GI bleed Generalized weakness Left upper extremity superficial thrombophlebitis History of tobacco abuse Physical Exam Narrative Low Const alert, oriented x3, no apparent distress, average body habitus and well nourished; Negative for healthy appearing Constitutional Narrative: Older, white female, sitting up in bed, appears comfortable well, nontoxic, verypleasant, interacts appropriately General Appearance: cooperative, comfortable, well kempt and well developed Exam Limitations: no limitations HEENT normocephalic, head/scalp atraumatic, hearing grossly normal bilaterally and moist oral mucous membranes HEENT Narrative: Mallampati 2, no thrush Eyes Negative for conjunctivae normal Eyes Narrative: no scleral icterus, B Conjunctival pallor Neck supple Neck Narrative: trachea midline Resp normal respiratory effort, no retractions, no use of accessory muscles and clearto auscultation bilaterally Resp Narrative: Slightly diminished diffusely but clear Auscultation: Negative for rales, rhonchi or wheezes Cardio regular rate, regular rhythm, S1 normal heart sound, S2 normal heart sound, no murmurs, no rub, no gallops and no clicks GI normal to inspection, nondistended, normoactive bowel sounds, soft to palpation and non-tender Extremity Extremity Narrative: Patient with bilateral clubbing on hands and nailbeds are white, no cyanosis or edema noted, 1+ pedal pulses, 2+ radial pulses Skin no jaundice, no petechiae and no mottling Skin Narrative: pale Neuro moves all extremities and no focal motor deficits Speech: speech normal Psych affect normal Psych Narrative: Eye contact is good, patient interacts appropriately, very pleasant Weight / BMI Weight Weight: 62.6 kg Body Mass Index (BMI) 24.4 ABG / Lab / Microbiology Data 06/06/25 05:51 06/06/25 05:51 Laboratory: Laboratory Results - last 24 hr 06/05/25 14:25: Sodium 121 L, Potassium 3.8, Chloride 93 L, Carbon Dioxide 15.8 L, Anion Gap 13, BUN 49 H, Creatinine 2.08 H, Estim Creat Clear Calc 18.44 L, Est GFR (MDRD) Non-Af 24 L, BUN/Creatinine Ratio 23.4 H, Glucose 147 H, Calcium 8.6 06/06/25 05:51: WBC 7.3, RBC 3.39 L, Hgb 10.2 L, Hct 28.9 L, MCV 85.3, MCH 30.1,MCHC 35.3, RDW Std Deviation 45.4 H, RDW Coeff of Cathleen 14.6, Plt Count 188, MPV 10.1, Sodium 124 L, Potassium 3.9, Chloride 94 L, Carbon Dioxide 17.4 L, Anion Gap 12, BUN 48 H, Creatinine 2.16 H, Estim Creat Clear Calc 17.76 L, Est GFR (MDRD) Non-Af 23 L, BUN/Creatinine Ratio 22.2 H, Glucose 88, Calcium 8.5 D/C Instructions Discharge Activity: Return to Normal Activity DC O2, CPAP, BIPAP Needs Home O2 Discharge instructions: No DC home with Oxygen: No Meaningful Use Info Meaningful Use Meaningful Use Diagnoses (Choose all that apply): None applicable Discharge Plan Admission Admit Date/Time: 05/29/25 16:23 Primary Reason for Your Visit: Weakness/lightheadedness Attending Provider: Tiffanie Govea Primary Care Provider: Glenny Luque Consulting Providers: Conchita Burns; Glenny Wetzel; Nora Govea; Porfirio Mei Instructions Additional Instructions / Restrictions: Please be sure to follow-up with Dr. Govea from nephrology as instructed. She will be ordering outpatient labs to be done this week to recheck your kidney function and and your sodium level Discharge Orders/Prescriptions Prescriptions: New hydralazine 50 mg Tablet 100 mg PO TID Qty: 90 0RF isosorbide dinitrate 20 mg Tablet 40 mg PO TID Qty: 90 0RF pantoprazole 40 mg Tablet,Delayed Release (Dr/Ec) 40 mg PO BID Qty: 60 2RF sodium bicarbonate 650 mg Tablet 650 mg PO BID Qty: 60 0RF sucralfate 1 gram Tablet 1 g PO 1HR_ACHS Qty: 120 1RF ferrous sulfate [FeroSul] 325 mg (65 mg iron) Tablet 325 mg PO 1200,1700 Qty: 60 0RF Rx Instructions: Take with orange juice Continued metoprolol succinate 50 mg tablet extended release 24 hr 50 mg PO BID amlodipine 10 mg Tablet 10 mg PO DAILY Discontinued chlorthalidone 25 mg tablet 25 mg PO QDAY lisinopril 30 mg tablet 30 mg PO BID hydralazine 25 mg tablet 25 mg PO BID Referrals / Follow Up: Nora Govea DO [Med Staff - Consulting] - 06/09/25 9:30 am Glenny Luque MD [Primary Care Provider] - Within 1 Week Juan Manuel Valdovinos DO [Med Staff - Active Staff] - Within 1 Month (Please call his office Saturday and set up an appointment to be seen within the next month for hospital follow-up) Disposition Disposition (needs filled in before D/C Order can be placed): Home, Self Care Charges/Coding Visit Charges Inpatient E&M: 14375 Disch Hosp >30min 06/06/25 1241 <Electronically signed by Tiffanie Govea DO> Cosigner Signature (if applicable): CC: Dr. Nora Govea DO; Dr. Tiffanie Govea DO; Dr. Glenny Luque MD; Juan Manuel Valdovinos DO~ Signed [facility] Work Phone: 1(363) 609-526108-03-2025 [facility] Medical Records Department [address] [place] [address] Discharge Summary 06/06/25 0738 MR#: [id number] Acct: [id number] Name: ALVARADO COHEN Rep #: [id number] : 1945 79 From: Tiffanie Govea DO PCP: Dr. Glenny Luque MD Status:ADM IN Location: [facility] [id number] Providers Date of Admission: 05/29/25 Date of Discharge: 06/06/25 Primary Care Physician: Dr. Glenny Luque MD Consultations 05/31/25 11:31 Consult: Vascular Surgery Routine Consulting Provider: Porfirio Mei Reason for Consult: renal artery stenosis EMERGENT Consult: No Notified: Yes Date Notified: 05/31/25 Time Notified: 12:08 Method of Notification: Verbal 05/31/25 11:47 Consult: Nephrology Routine Consulting Provider: Nora Govea Reason for Consult: hyponatremia EMERGENT Consult: No Notified: Yes Date Notified: 05/31/25 Time Notified: 09:30 Method of Notification: Verbal 06/01/25 08:11 Consult: Gastroenterology Routine Consulting Provider: [facility] Reason for Consult: Acute anemia with suspected GI loss EMERGENT Consult: No Notified: Yes Date Notified: 06/01/25 Time Notified: 08:11 Method of Notification: Text Reason For Visit: HYPONATREMIA Diagnosis Discharge Diagnosis (1) Hypo-osmolar hyponatremia: Status: Acute Code(s): E87.1 - Hypo-osmolality and hyponatremia (2) Hypomagnesemia: Status: Acute Code(s): E83.42 - Hypomagnesemia (3) Hypokalemia: Status: Acute Code(s): E87.6 - Hypokalemia (4) Renal artery stenosis: Status: Chronic Code(s): I70.1 - Atherosclerosis of renal artery (5) Uncontrolled hypertension: Status: Acute Code(s): I10 - Essential (primary) hypertension (6) Acute anemia: Status: Acute Code(s): D64.9 - Anemia, unspecified (7) GI bleed: Status: Acute Code(s): K92.2 - Gastrointestinal hemorrhage, unspecified (8) Lower extremity weakness: Status: Acute Code(s): R29.898 - Other symptoms and signs involving the musculoskeletal system (9) Paresthesia of lower extremity: Status: Acute Code(s): R20.2 - Paresthesia of skin Medications at Discharge Home Medications amlodipine 10 mg tablet 10 mg PO DAILY 03/21/23 metoprolol succinate 50 mg tablet,extended release 24 hr 50 mg PO BID 08/27/24 ferrous sulfate 325 mg (65 mg iron) tablet (FeroSul) 325 mg PO 1200,1700 #60 tabs 06/06/25 hydralazine 50 mg tablet 100 mg (2 x 50 mg) PO TID #90 tabs 06/06/25 isosorbide dinitrate 20 mg tablet 40 mg (2 x 20 mg) PO TID #90 tabs 06/06/25 pantoprazole 40 mg tablet,delayed release 40 mg PO BID #60 tabs 06/06/25 sodium bicarbonate 650 mg tablet 650 mg PO BID #60 tabs 06/06/25 sucralfate 1 gram tablet 1 g PO 1HR_ACHS #120 tabs 06/06/25 Hospital Course Operations None Procedures 2-D Echocardiogram, Blood transfusion, EGD, EKG and - (CT brain/MRI lumbar spine/CT chest/chest x- ray/renal duplex) Summary of Care Provided Minutes Spent on Discharge: 45 Hospital Course: Patient is a 79-year-old white female who presented to the emergency department was from a hospital on 05/29/2025 with chief complaint of weakness and lightheadedness. Patient was having increased shortness of breath, swelling, dizziness and weakness for about 4 days prior to presentation. She reported occasional dizziness with standing but denied headache. She had no falls or traumas and has been compliant with her home antihypertensive regimen however she does have complex hypertension with history of renal artery stenosis with previous attempted intervention by vascular surgery without success. Vital signs on presentation showed temperature 97.8, heart rate 68, blood pressure was 185/54 with a pulse ox of 96% on room air. CBC showed a normal white count, hemoglobin of 10.2. UA was not suggestive of infection, proBNP was 5274 with a troponin of 20. CMP was markedly abnormal with a serum sodium of 106, potassium of 3.5, chloride 73, BUN was 21 with a serum creatinine of 1.06. Glucose was 121 and liver profile was unremarkable. Given her profound hyponatremia we were consulted for admission. She had been on chlorthalidone for some time as an outpatient. She follows with Dr. Govea from nephrology for her blood pressure and they has been trying to better regulate her antihypertensive regimen. Patient does have a history of tobacco abuse. She was admitted to the floor and found to have hypoosmolar hyponatremia. Her thiazide diuretic was discontinued and nephrology was consulted. A CT of the chest was performed to rule out ADH producing lung malignancy and this was unremarkable. An echocardiogram was done given her uncontrolled hypertension and she was found have an EF of 65% with moderate eccentric mitral valve insufficiency, pulmonary systolic pressure of 52 mmHg and moderate pulmonary hypertension. Patient was fluid restricted to 1250 cc of fluid (more content not included)...[facility]08-02-2025 Progress note Author Nora Govea [facility] Note Date/Time June 05, 2025 3:5 9pm [facility] Medical Records Department [address] [place] [address] Progress Note - Nephrology 06/04/25 0937 MR#: [id number] Acct: [id number] Name: ALVARADO COHEN CALLI Rep #:[id number] : 1945 79 From: Nora Pettit PCP: Dr. Glenny Luque MD Status:AD M IN Location: [facility] [id number] Subjective Subjective feeling better, stronger. BP meds held due to low readings. Urine output volumesnot measured but concentrated. Complains of thirst. Will stop fluid restriction.Sodium 124, creatinine 3.18, hgb 9.5 after 2 units prbc yesterday along with fluid resuscitation for hypotension Objective Data Objective Data Vital Signs: Vital Signs Temp Pulse Resp BP Pulse Ox O2 Del Method 98.2 F 71 16 129/37 H 92 Room Air 06/04/25 03:34 06/04/25 06:27 06/04/25 03:34 06/04/25 06:27 06/04/25 03:34 06/04/25 08:26 Oxygen Delivery Method Room Air Weight: 57.6 kg Body Mass Index (BMI) 22.4 Intake & Output: Intake and Output for Last 24 Hours 06/02/25 06/03/25 06/04/25 23:59 23:59 23:59 Intake Total 2096.50 / 2096.50 1800 / 1800 240 / 240 Output Total 60 / 60 Balance 2096.50 / 2096.50 1740 / 1740 240 / 240 Lab / Micro Data 06/04/25 05:49 06/04/25 05:49 Labs: Laboratory Results - last 24 hr 05/31/25 18:01: Crossmatch See Detail 06/04/25 05:49: WBC 11.0, RBC 3.11 L, Hgb 9.5 L, Hct 26.4 L, MCV 84.9, MCH 30.5,MCHC 36.0, RDW Std Deviation 44.6 H, RDW Coeff of Cathleen 14.5, Plt Count 152, MPV 9.6, Sodium 124 L, Potassium 4.0, Chloride 94 L, Carbon Dioxide 18.5 L, Anion Gap 12, BUN 43 H, Creatinine 3.18 H, Estim Creat Clear Calc 12.06 L, Est GFR (MDRD) Non-Af 14 L, BUN/Creatinine Ratio 13.5, Glucose 97, Calcium 8.2 Physical Exam Const alert and oriented x3 Nutritional Appearance: thin HEENT normocephalic Resp clear to auscultation bilaterally Cardio regular rate GI non-tender and non-distended Auscultation: normoactive bowel sounds Palpation: soft Extremity no clubbing, cyanosis or edema Assessment & Plan Assessment/Plan (1) ANTONINO (acute kidney injury): PLAN: Creatinine increased to 3.18 likely due to shock, hypotension, ATN. Stop lisinopril, maintain SBP 140 due to ASVD wmeds as needed, prbc as needed/ Spoke with pt family niece, nephew at bedside. (2) Hypo-osmolar hyponatremia: PLAN: sodium 124 today (3) Uncontrolled hypertension: PLAN: hold meds for SBP <140 due to ASVD, symptomatic hypotension. (4) Hypokalemia: PLAN: resolved. Stop KCL due to ANTONINO. (5) Renal artery stenosis: PLAN: not a surgical candidate (6) Anemia: PLAN: iron supplements, s/p prbc (7) Hypotension: PLAN: acute hypotension combination of medications, anemia, dehydraton. w. stable BP. Suggest decreasing isordil dose due to low BPs 06/05/25 1559 <Electronically signed by Nora Govea DO> Cosigner Signature (if applicable): CC: ~ Signed [facility] Work Phone: 1(762) 277-235208-02-2025 Progress note [facility] Medical Records Department [address] [place] [address] Progress Note - Nephrology 06/04/25 0937 MR#: [id number] Acct: [id number] Name: ALVARADO COHEN Rep #:[id number] : 1945 79 From: Nora Pettit PCP: Dr. Glenny Luque MD Status:AD M IN Location: [place] [address] Subjective Subjective feeling better, stronger. BP meds held due to low readings. Urine output volumesnot measured but concentrated. Complains of thirst. Will stop fluid restriction.Sodium 124, creatinine 3.18, hgb 9.5 after 2 units prbc yesterday along with fluid resuscitation for hypotension Objective Data Objective Data Vital Signs: Vital Signs Temp Pulse Resp BP Pulse Ox O2 Del Method 98.2 F 71 16 129/37 H 92 Room Air 06/04/25 03:34 06/04/25 06:27 06/04/25 03:34 06/04/25 06:27 06/04/25 03:34 06/04/25 08:26 Oxygen Delivery Method Room Air Weight: 57.6 kg Body Mass Index (BMI) 22.4 Intake & Output: Intake and Output for Last 24 Hours 06/02/25 06/03/25 06/04/25 23:59 23:59 23:59 Intake Total 2096.50 / 2096.50 1800 / 1800 240 / 240 Output Total 60 / 60 Balance 2096.50 / 2096.50 1740 / 1740 240 / 240 Lab / Micro Data 06/04/25 05:49 06/04/25 05:49 Labs: Laboratory Results - last 24 hr 05/31/25 18:01: Crossmatch See Detail 06/04/25 05:49: WBC 11.0, RBC 3.11 L, Hgb 9.5 L, Hct 26.4 L, MCV 84.9, MCH 30.5,MCHC 36.0, RDW Std Deviation 44.6 H, RDW Coeff of Cathleen 14.5, Plt Count 152, MPV 9.6, Sodium 124 L, Potassium 4.0, Chloride 94 L, Carbon Dioxide 18.5 L, Anion Gap 12, BUN 43 H, Creatinine 3.18 H, Estim Creat Clear Calc 12.06 L, Est GFR (MDRD) Non-Af 14 L, BUN/Creatinine Ratio 13.5, Glucose 97, Calcium 8.2 Physical Exam Const alert and oriented x3 Nutritional Appearance: thin HEENT normocephalic Resp clear to auscultation bilaterally Cardio regular rate GI non-tender and non-distended Auscultation: normoactive bowel sounds Palpation: soft Extremity no clubbing, cyanosis or edema Assessment & Plan Assessment/Plan (1) ANTONINO (acute kidney injury): PLAN: Creatinine increased to 3.18 likely due to shock, hypotension, ATN. Stop lisinopril, maintainSBP 140 due to ASVD wmeds as needed, prbc as needed/ Spoke with pt family niece, nephew at bedside. (2) Hypo-osmolar hyponatremia: PLAN: sodium 124 today (3) Uncontrolled hypertension: PLAN: hold meds for SBP <140 due to ASVD, symptomatic hypotension. (4) Hypokalemia: PLAN: resolved. Stop KCL due to ANTONINO. (5) Renal artery stenosis: PLAN: not a surgical candidate (6) Anemia: PLAN: iron supplements, s/p prbc (7) Hypotension: PLAN: acute hypotension combination of medications, anemia, dehydraton. w. stable BP. Suggest decreasing isordil dose due to low BPs 06/05/25 8579 Cosigner Signature (if applicable): CC: ~ Signed [facility]08-02-2025 Progress note Author Tiffanie Govea [facility] Note Date/Time June 05, 2025 1:2 4pm [facility] Medical Records Department [address] [place] [address] Progress Note - Hospitalist 06/05/25818 MR#: [id number] Acct: [id number] Name: ALVARADO COHEN Rep #:[id number] : 1945 79 From: Tiffanie Govea DO PCP: Dr. Glenyn Luque MD Status:AD M IN Location: [place] [address] Reason for Visit Chief Complaint: Weakness, lightheadedness, generally feeling unwell Subjective Subjective Patient states he is feeling okay but just not super mild today. Denies any specific complaints. Does complain that her left antecubital fossa area is tender. It looks like she had a superficial thrombophlebitis but there is some erythema around the insertion sites we will go ahead and treat with short courseof antibiotics. I did discuss with her and nursing that warm compress may be helpful. Plan is for discharge home tomorrow as long as she remains stable Objective Data Objective Data Vital Signs: Vital Signs Temp Pulse Resp BP Pulse Ox O2 Del Method 97.1 F L 68 18 168/57 H 91 Room Air 06/05/25 03:19 06/05/25 05:57 06/05/25 03:19 06/05/25 05:57 06/05/25 03:19 06/05/25 08:04 Oxygen Delivery Method Room Air Weight: 62.5 kg Body Mass Index (BMI) 24.4 Intake & Output: Intake and Output for Last 24 Hours 06/03/25 06/04/25 06/05/25 23:59 23:59 23:59 Intake Total 1800 / 1800 1510 / 1510 Output Total 60 / 60 850 / 850 350 / 350 Balance 1740 / 1740 660 / 660 -350 / -350 Lab / Micro Data 06/05/25 06:50 06/05/25 06:50 Labs: Laboratory Results - last 24 hr 06/05/25 06:50: WBC 9.5, RBC 3.18 L, Hgb 9.5 L, Hct 27.0 L, MCV 84.9, MCH 29.9, MCHC 35.2, RDW Std Deviation 45.0 H, RDW Coeff of Cathleen 14.6, Plt Count 183, MPV 10.0, Immature Gran % (Auto) 0.600, Neut % (Auto) 77.4 H, Lymph % (Auto) 9.5 L, [place] % (Auto) 9.4, Eos % (Auto) 2.6, Baso % (Auto) 0.5, Absolute Neuts (auto) 7.4, Absolute Lymphs (auto) 0.90, Nucleated RBC % 0, Sodium 120 L, Potassium 4.0, Chloride 92 L, Carbon Dioxide 17.6 L, Anion Gap 11, BUN 51 H, Creatinine 2.36 H, Estim Creat Clear Calc 16.25 L, Est GFR (MDRD) Non-Af 21 L, BUN/Creatinine Ratio 21.4 H, Glucose 94, Calcium 8.4, Total Bilirubin 0.55, AST 22, ALT 24, Alkaline Phosphatase 68, Total Protein 5.2 L, Albumin 3.3 L, Globulin 1.9 L, Albumin/Globulin Ratio 1.7 Physical Exam Narrative Low Const alert, oriented x3, no apparent distress, average body habitus and well nourished; Negative for healthy appearing Constitutional Narrative: Older, white female, sitting up in bed, appears comfortable, nontoxic, therapy services at the bedside getting ready to work with her. General Appearance: cooperative, well kempt and well developed HEENT normocephalic, head/scalp atraumatic and moist oral mucous membranes HEENT Narrative: No thrush Eyes Negative for conjunctivae normal Eyes Narrative: no scleral icterus, B Conjunctival pallor Resp normal respiratory effort, no retractions, no use of accessory muscles and clearto auscultation bilaterally Resp Narrative: Slightly diminished diffusely Auscultation: Negative for rales, rhonchi or wheezes Cardio regular rate, regular rhythm, S1 normal heart sound, S2 normal heart sound, no murmurs, no rub, no gallops and no clicks GI normal to inspection, nondistended, normoactive bowel sounds, soft to palpation and non-tender Extremity Extremity Narrative: Patient with bilateral clubbing on hands and nailbeds are white, no cyanosis or edema noted, 1+ pedal pulses, 2+ radial pulses Skin Skin Narrative: pale Neuro oriented x3, moves all extremities and no focal motor deficits Speech: speech normal Psych affect normal Psych Narrative: Eye contact is good, patient interacts appropriately, very pleasant Assessment & Plan Assessment/Plan (1) Hypo-osmolar hyponatremia: (2) Hypomagnesemia: (3) Hypokalemia: (4) Renal artery stenosis: (5) Uncontrolled hypertension: (6) Acute anemia: (7) GI bleed: (8) Lower extremity weakness: (9) Paresthesia of lower extremity: PLAN: Plan Hypoosmolar hyponatremia - Etiology is unclear but 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 Govea from nephrology - Nephrology following-appreciate input ANTONINO 2/2 ATN - from hypotension yesterday and free water loss with tolvaptan - Patient somewhat oliguric now and serum creatinine is up from 1-3--> 1.2--> down to 2.36 from 3.18 yesterday - 2 u PRBC 731 Mild metabolic acidosis - Serum bicarb of 17.6 with a normal anion gap - Likely related to ANTONINO - Repeat lab in a.m. should improve his renal function improves Acute onset bilateral lower extremity paresthesias and weakness - resolved - MRI does not show acute process to explain - suspect related from hypotension and improved with bolus Uncontrolled hypertension - Will discontinue chlorthalidone at time of discharge - Plan is for home with amlodipine, metoprolol, and hydralazine - No intervention able to be performed due to complicated anatomy per vascular surgery - Renal artery duplex studies show normal bilateral renal arteries Acute on chronic anemia secondary to suspected GI bleed -Hemoglobin is relatively stable however patient has had some hemodynamic issuesand ongoing fatigue/lightheadedness so we will transfuse 2 units packed red blood cells today - EGD was performed and patient found to have gastric ulcers as well as multiplesmall bowel AVMs all were treated with heater probe for coagulation with good hemostasis following -Continue Protonix 40 mg p.o. twice daily -Continue Carafate 1 g 4 times daily and will continue for 8 weeks following discharge - Hemoglobin is stable at 9.5 - Patient was instructed to avoid NSAIDs - GI is following-appreciate input Troponin elevation - Suspect related to GI bleed - Patient chest pain-free - Echocardiogram shows normal EF at 65% with moderate mitral valve insufficiencyand pulmonary systolic pressure 52 mmHg with moderate pulmonary hypertension -No further workup at this time - Recommend outpatient follow-up Generalized weakness - PT and OT are following and current recommendation is home with help/home health care History of right renal artery stenosis - Previously unsuccessful stenting - Repeat duplex does not show a lesion Left upper extremity antecubital superficial thrombophlebitis - Possible cellulitis - Will start Augmentin - Warm compresses recommended Tobacco abuse - Continue nicotine replacement therapy if needed and desired - Recommend cessation DVT prophylaxis -Continue SCDs CODE STATUS -Full code Charges/Coding Visit Charges Inpatient E&M: 54913 Subs Hosp L2 06/05/25 1324 <Electronically signed by Tiffanie Govea DO> Cosigner Signature (if applicable): CC: ~ Signed [facility] Work Phone: 1(867) 961-296108-02-2025 Progress note [facility] Medical Records Department [address] [place] [address] Progress Note - Hospitalist 06/05/2519 MR#: [id number] Acct: [id number] Name: ALVARADO COHEN Rep #:[id number] : 1945 79 From: Tiffanie Govea DO PCP: Dr. Glenny Luque MD Status:AD M IN Location: [place] [address] Reason for Visit Chief Complaint: Weakness, lightheadedness, generally feeling unwell Subjective Subjective Patient states he is feeling okay but just not super mild today. Denies any specific complaints. Does complain that her left antecubital fossa area is tender. It looks like she had a superficial thrombophlebitis but there is some erythema around the insertion sites we will go ahead and treat with short courseof antibiotics. I did discuss with her and nursing that warm compress may be helpful. Plan is for discharge home tomorrow as long as she remains stable Objective Data Objective Data Vital Signs: Vital Signs Temp Pulse Resp BP Pulse Ox O2 Del Method 97.1 F L 68 18 168/57 H 91 Room Air 06/05/25 03:19 06/05/25 05:57 06/05/25 03:19 06/05/25 05:57 06/05/25 03:19 06/05/25 08:04 Oxygen Delivery Method Room Air Weight: 62.5 kg Body Mass Index (BMI) 24.4 Intake & Output: Intake and Output for Last 24 Hours 06/03/25 06/04/25 06/05/25 23:59 23:59 23:59 Intake Total 1800 / 1800 1510 / 1510 Output Total 60 / 60 850 / 850 350 / 350 Balance 1740 / 1740 660 / 660 -350 / -350 Lab / Micro Data 06/05/25 06:50 06/05/25 06:50 Labs: Laboratory Results - last 24 hr 06/05/25 06:50: WBC 9.5, RBC 3.18 L, Hgb 9.5 L, Hct 27.0 L, MCV 84.9, MCH 29.9, MCHC 35.2, RDW Std Deviation 45.0 H, RDW Coeff of Cathleen 14.6, Plt Count 183, MPV 10.0, Immature Gran % (Auto) 0.600, Neut% (Auto) 77.4 H, Lymph % (Auto) 9.5 L, Windsor % (Auto) 9.4, Eos % (Auto) 2.6, Baso % (Auto) 0.5, Absolute Neuts (auto) 7.4, Absolute Lymphs (auto) 0.90, Nucleated RBC % 0, Sodium 120 L, Potassium 4.0, Chloride 92 L, Carbon Dioxide 17.6 L, Anion Gap 11, BUN 51 H, Creatinine 2.36 H, Estim Creat Clear Calc 16.25 L, Est GFR (MDRD) Non-Af 21 L, BUN/Creatinine Ratio 21.4 H, Glucose 94, Calcium 8.4, TotalBilirubin 0.55, AST 22, ALT 24, Alkaline Phosphatase 68, Total Protein 5.2 L, Albumin 3.3 L, Globuli n 1.9 L, Albumin/Globulin Ratio 1.7 Physical Exam Narrative Low Const alert, oriented x3, no apparent distress, average body habitus and well nourished; Negative for healthy appearing Constitutional Narrative: Older, white female, sitting up in bed, appears comfortable, nontoxic, therapy services at the bedside getting ready to work with her. General Appearance: cooperative, well kempt and well developed HEENT normocephalic, head/scalp atraumatic and moist oral mucous membranes HEENT Narrative: No thrush Eyes Negative for conjunctivae normal Eyes Narrative: no scleral icterus, B Conjunctival pallor Resp normal respiratory effort, no retractions, no use of accessory muscles and clearto auscultation bilaterally Resp Narrative: Slightly diminished diffusely Auscultation: Negative for rales, rhonchi or wheezes Cardio regular rate, regular rhythm, S1 normal heart sound, S2 normal heart sound, no murmurs, no rub, no gallops and no clicks GI normal to inspection, nondistended, normoactive bowel sounds, soft to palpation and non-tender Extremity Extremity Narrative: Patient with bilateral clubbing on hands and nailbeds are white, no cyanosis or edema noted, 1+ pedal pulses, 2+ radial pulses Skin Skin Narrative: pale Neuro oriented x3, moves all extremities and no focal motor deficits Speech: speech normal Psych affect normal Psych Narrative: Eye contact is good, patient interacts appropriately, very pleasant Assessment & Plan Assessment/Plan (1) Hypo-osmolar hyponatremia: (2) Hypomagnesemia: (3) Hypokalemia: (4) Renal artery stenosis: (5) Uncontrolled hypertension: (6) Acute anemia: (7) GI bleed: (8) Lower extremity weakness: (9) Paresthesia of lower extremity: PLAN: Plan Hypoosmolar hyponatremia - Etiology is unclear but 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 Govea from nephrology - Nephrology following-appreciate input ANTONINO 2/2 ATN - from hypotension yesterday and free water loss with tolvaptan - Patient somewhat oliguric now and serum creatinine is up from 1-3--> 1.2--> down to 2.36 from 3.18 yesterday - 2 u PRBC 731 Mild metabolic acidosis - Serum bicarb of 17.6 with a normal anion gap - Likely related to ANTONINO - Repeat lab in a.m. should improve his renal function improves Acute onset bilateral lower extremity paresthesias and weakness - resolved - MRI does not show acute process to explain - suspect related from hypotension and improved with bolus Uncontrolled hypertension - Will discontinue chlorthalidone at time of discharge - Plan is for home with amlodipine, metoprolol, and hydralazine - No intervention able to be performed due to complicated anatomy per vascular surgery - Renal artery duplex studies show normal bilateral renal arteries Acute on chronic anemia secondary to suspected GI bleed -Hemoglobin is relatively stable however patient has had some hemodynamic issuesand ongoing fatigue/lightheadedness so we will transfuse 2 units packed red blood cells today - EGD was performed and patient found to have gastric ulcers as well as multiplesmall bowel AVMs all were treated with heater probe for coagulation with good hemostasis following -Continue Protonix 40 mg p.o. twice daily -Continue Carafate 1 g 4 times daily and will continue for 8 weeks following discharge - Hemoglobin is stable at 9.5 - Patient was instructed to avoid NSAIDs - GI is following-appreciate input Troponin elevation - Suspect related to GI bleed - Patient chest pain-free - Echocardiogram shows normal EF at 65% with moderate mitral valve insufficiencyand pulmonary systolic pressure 52 mmHg with moderate pulmonary hypertension -No further workup at this time - Recommend outpatient follow-up Generalized weakness - PT and OT are following and current recommendation is home with help/home health care History of right renal artery stenosis - Previously unsuccessful stenting - Repeat duplex does not show a lesion Left upper extremity antecubital superficial thrombophlebitis - Possible cellulitis - Will start Augmentin - Warm compresses recommended Tobacco abuse - Continue nicotine replacement therapy if needed and desired - Recommend cessation DVT prophylaxis -Continue SCDs CODE STATUS -Full code Charges/Coding Visit Charges Inpatient E&M: 62077 Subs Hosp L2 06/05/25 1324 Cosigner Signature (if applicable): CC: ~ Signed [facility]08-01-2025 Progress note Author Tiffanie Govea [facility] Note Date/Time June 04, 2025 4:5 9pm [facility] Medical Records Department [address] [place] [address] Progress Note - Hospitalist 06/04/25816 MR#: [id number] Acct: [id number] Name: ALVARADO COHEN Rep #:[id number] : 1945 79 From: Tiffanie Govea DO PCP: Dr. Glenny Luque MD Status:AD M IN Location: [place] [address] Reason for Visit Chief Complaint: Weakness, lightheadedness, generally feeling unwell Subjective Subjective Patient states she is feeling pretty good today. No complaints currently. We did discuss the overall plan of waiting till her renal function improves and ensuring her sodium is stable. Blood counts are stable at this time. Objective Data Objective Data Vital Signs: Vital Signs Temp Pulse Resp BP Pulse Ox O2 Del Method 98.2 F 71 16 129/37 H 92 Room Air 06/04/25 03:34 06/04/25 06:27 06/04/25 03:34 06/04/25 06:27 06/04/25 03:34 06/04/25 03:51 Oxygen Delivery Method Room Air Weight: 57.6 kg Body Mass Index (BMI) 22.4 Intake & Output: Intake and Output for Last 24 Hours 06/02/25 06/03/25 06/04/25 23:59 23:59 23:59 Intake Total 2096.50 / 2096.50 1800 / 1800 240 / 240 Output Total 60 / 60 Balance 2096.50 / 2096.50 1740 / 1740 240 / 240 Lab / Micro Data 06/04/25 05:49 06/04/25 05:49 Labs: Laboratory Results - last 24 hr 05/31/25 18:01: Crossmatch See Detail 06/04/25 05:49: WBC 11.0, RBC 3.11 L, Hgb 9.5 L, Hct 26.4 L, MCV 84.9, MCH 30.5,MCHC 36.0, RDW Std Deviation 44.6 H, RDW Coeff of Cathleen 14.5, Plt Count 152, MPV 9.6, Sodium 124 L, Potassium 4.0, Chloride 94 L, Carbon Dioxide 18.5 L, Anion Gap 12, BUN 43 H, Creatinine 3.18 H, Estim Creat Clear Calc 12.06 L, Est GFR (MDRD) Non-Af 14 L, BUN/Creatinine Ratio 13.5, Glucose 97, Calcium 8.2 Physical Exam Narrative Low Const alert, oriented x3, no apparent distress, average body habitus and well nourished; Negative for healthy appearing Constitutional Narrative: Older, white female, sitting up in bed, appears comfortable, reading on her [place], nontoxic General Appearance: cooperative, well kempt and well developed HEENT normocephalic, head/scalp atraumatic and moist oral mucous membranes Eyes Negative for conjunctivae normal Neck Neck Narrative: trachea midline Resp normal respiratory effort, no retractions, no use of accessory muscles and clearto auscultation bilaterally Resp Narrative: Slightly diminished diffusely Auscultation: Negative for rales, rhonchi or wheezes Cardio regular rate, regular rhythm, S1 normal heart sound, S2 normal heart sound, no murmurs, no rub, no gallops and no clicks GI normal to inspection, nondistended, normoactive bowel sounds, soft to palpation and non-tender Extremity no clubbing, cyanosis or edema Extremity Narrative: Patient with bilateral clubbing on hands and nailbeds are white, no cyanosis or edema noted, 1+ pedal pulses, 2+ radial pulses Neuro oriented x3, moves all extremities and no focal motor deficits Speech: speech normal Psych affect normal Psych Narrative: Eye contact is good, patient interacts appropriately, very pleasant Assessment & Plan Assessment/Plan (1) Hypo-osmolar hyponatremia: (2) Hypomagnesemia: (3) Hypokalemia: (4) Renal artery stenosis: (5) Uncontrolled hypertension: (6) Acute anemia: (7) GI bleed: (8) Lower extremity weakness: (9) Paresthesia of lower extremity: PLAN: Plan Hypoosmolar hyponatremia - Etiology is unclear but 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 - Continue to hold thiazide diuretic - Patient was given tolvaptan on 06/01 and serum sodium is up to 124-->125 -Patient remains asymptomatic - Nephrology following-appreciate input - Ultimate plan for treatment up to nephrology ANTONINO 2/2 ATN - from hypotension yesterday and free water loss with tolvaptan - Patient somewhat oliguric now and serum creatinine is up from 1-3--> 1.2-->3.18 in last 24 hours - 2 u PRBC yesterday Acute onset bilateral lower extremity paresthesias and weakness - resolved - MRI does not show acute process to explain - suspect related from hypotension and improved with bolus Uncontrolled hypertension - Chlorthalidone is on hold - antihypertensives on hold with parameters - blood pressure hold parameters per nephrology - No intervention able to be performed due to complicated anatomy per vascular surgery - Renal artery duplex studies show normal bilateral renal arteries Acute on chronic anemia secondary to suspected GI bleed -Hemoglobin is relatively stable however patient has had some hemodynamic issuesand ongoing fatigue/lightheadedness so we will transfuse 2 units packed red blood cells today - EGD was performed and patient found to have gastric ulcers as well as multiplesmall bowel AVMs all were treated with heater probe for coagulation with good hemostasis following -Continue Protonix 40 mg p.o. twice daily -Continue Carafate 1 g 4 times daily and will continue for 8 weeks following discharge - hgb up to 9.5 with blood and appropriate for blood - Patient was instructed to avoid NSAIDs - GI is following-appreciate input Troponin elevation - Suspect related to GI bleed - Patient chest pain-free - Echocardiogram shows normal EF at 65% with moderate mitral valve insufficiencyand pulmonary systolic pressure 52 mmHg with moderate pulmonary hypertension -No further workup at this time - Recommend outpatient follow-up Generalized weakness - PT and OT are following and current recommendation is home with help/home health care History of right renal artery stenosis - Previously unsuccessful stenting - Repeat duplex does not show a lesion Tobacco abuse - Continue nicotine replacement therapy if needed and desired - Recommend cessation DVT prophylaxis -Continue SCDs CODE STATUS -Full code Charges/Coding Visit Charges Inpatient E&M: 91508 Subs Hosp L2 06/04/25 0186 <Electronically signed by Tiffanie Govea DO> Cosigner Signature (if applicable): CC: ~ Signed [facility] Work Phone: 1(827) 851-567208-01-2025 Progress note [facility] Medical Records Department [address] [place] [address] Progress Note - Hospitalist 06/04/25 0817 MR#: [id number] Acct: [id number] Name: ALVARADO COHEN Rep #:[id number] : 1945 79 From: Tiffanie Govea DO PCP: Dr. Glenny Luque MD Status:AD M IN Location: [place] [address] Reason for Visit Chief Complaint: Weakness, lightheadedness, generally feeling unwell Subjective Subjective Patient states she is feeling pretty good today. No complaints currently. We did discuss the overall plan of waiting till her renal function improves and ensuring her sodium is stable. Blood counts are stable at this time. Objective Data Objective Data Vital Signs: Vital Signs Temp Pulse Resp BP Pulse Ox O2 Del Method 98.2 F 71 16 129/37 H 92 Room Air 06/04/25 03:34 06/04/25 06:27 06/04/25 03:34 06/04/25 06:27 06/04/25 03:34 06/04/25 03:51 Oxygen Delivery Method Room Air Weight: 57.6 kg Body Mass Index (BMI) 22.4 Intake & Output: Intake and Output for Last 24 Hours 06/02/25 06/03/25 06/04/25 23:59 23:59 23:59 Intake Total 2096.50 / 2096.50 1800 / 1800 240 / 240 Output Total 60 / 60 Balance 6.50 / 6.50 1740 / 1740 240 / 240 Lab / Micro Data 06/04/25 05:49 06/04/25 05:49 Labs: Laboratory Results - last 24 hr 05/31/25 18:01: Crossmatch See Detail 06/04/25 05:49: WBC 11.0, RBC 3.11 L, Hgb 9.5 L, Hct 26.4 L, MCV 84.9, MCH 30.5,MCHC 36.0, RDW Std Deviation 44.6 H, RDW Coeff of Cathleen 14.5, Plt Count 152, MPV 9.6, Sodium 124 L, Potassium 4.0, Chloride 94 L, Carbon Dioxide 18.5 L, Anion Gap 12, BUN 43 H, Creatinine 3.18 H, Estim Creat Clear Calc 12.06 L, Est GFR (MDRD) Non-Af 14 L, BUN/Creatinine Ratio 13.5, Glucose 97, Calcium 8.2 Physical Exam Narrative Low Const alert, oriented x3, no apparent distress, average body habitus and well nourished; Negative for healthy appearing Constitutional Narrative: Older, white female, sitting up in bed, appears comfortable, reading on her [place], nontoxic General Appearance: cooperative, well kempt and well developed HEENT normocephalic, head/scalp atraumatic and moist oral mucous membranes Eyes Negative for conjunctivae normal Neck Neck Narrative: trachea midline Resp normal respiratory effort, no retractions, no use of accessory muscles and clearto auscultation bilaterally Resp Narrative: Slightly diminished diffusely Auscultation: Negative for rales, rhonchi or wheezes Cardio regular rate, regular rhythm, S1 normal heart sound, S2 normal heart sound, no murmurs, no rub, no gallops and no clicks GI normal to inspection, nondistended, normoactive bowel sounds, soft to palpation and non-tender Extremity no clubbing, cyanosis or edema Extremity Narrative: Patient with bilateral clubbing on hands and nailbeds are white, no cyanosis or edema noted, 1+ pedal pulses, 2+ radial pulses Neuro oriented x3, moves all extremities and no focal motor deficits Speech: speech normal Psych affect normal Psych Narrative: Eye contact is good, patient interacts appropriately, very pleasant Assessment & Plan Assessment/Plan (1) Hypo-osmolar hyponatremia: (2) Hypomagnesemia: (3) Hypokalemia: (4) Renal artery stenosis: (5) Uncontrolled hypertension: (6) Acute anemia: (7) GI bleed: (8) Lower extremity weakness: (9) Paresthesia of lower extremity: PLAN: Plan Hypoosmolar hyponatremia - Etiology is unclear but 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 - Continue to hold thiazide diuretic - Patient was given tolvaptan on 06/01 and serum sodium is up to 124-->125 -Patient remains asymptomatic - Nephrology following-appreciate input - Ultimate plan for treatment up to nephrology ANTONINO 2/2 ATN - from hypotension yesterday and free water loss with tolvaptan - Patient somewhat oliguric now and serum creatinine is up from 1-3--> 1.2-->3.18 in last 24 hours - 2 u PRBC yesterday Acute onset bilateral lower extremity paresthesias and weakness - resolved - MRI does not show acute process to explain - suspect related from hypotension and improved with bolus Uncontrolled hypertension - Chlorthalidone is on hold - antihypertensives on hold with parameters - blood pressure hold parameters per nephrology - No intervention able to be performed due to complicated anatomy per vascular surgery - Renal artery duplex studies show normal bilateral renal arteries Acute on chronic anemia secondary to suspected GI bleed -Hemoglobin is relatively stable however patient has had some hemodynamic issuesand ongoing fatigue/lightheadedness so we will transfuse 2 units packed red blood cells today - EGD was performed and patient found to have gastric ulcers as well as multiplesmall bowel AVMs all were treated with heater probe for coagulation with good hemostasis following -Continue Protonix 40 mg p.o. twice daily -Continue Carafate 1 g 4 times daily and will continue for 8 weeks following discharge - hgb up to 9.5 with blood and appropriate for blood - Patient was instructed to avoid NSAIDs - GI is following-appreciate input Troponin elevation - Suspect related to GI bleed - Patient chest pain-free - Echocardiogram shows normal EF at 65% with moderate mitral valve insufficiencyand pulmonary systolic pressure 52 mmHg with moderate pulmonary hypertension -No further workup at this time - Recommend outpatient follow-up Generalized weakness - PT and OT are following and current recommendation is home with help/home health care History of right renal artery stenosis - Previously unsuccessful stenting - Repeat duplex does not show a lesion Tobacco abuse - Continue nicotine replacement therapy if needed and desired - Recommend cessation DVT prophylaxis -Continue SCDs CODE STATUS -Full code Charges/Coding Visit Charges Inpatient E&M: 72044 Subs Hosp L2 06/04/25 1658 Cosigner Signature (if applicable): CC: ~ Signed [facility]08-01-2025 Progress note Author Nora Govea [facility] Note Date/Time June 04, 2025 9:3 6am [facility] Medical Records Department [address] [place] [address] Progress Note - Nephrology 06/02/2511 MR#: [id number] Acct: [id number] Name: ALVARADO COHEN Rep #:[id number] : 1945 79 From: Nora Pettit PCP: Dr. Glenny Luque MD Status:AD M IN Location: [place] [address] Subjective Subjective sodium 123 today, s/p endoscopy for anemia, no black stools today. Appetite improving Objective Data Objective Data Vital Signs: Vital Signs Temp Pulse Resp BP Pulse Ox O2 Del Method 97.8 F 59 L 18 170/48 H 95 Room Air 06/02/25 05:08 06/02/25 05:11 06/02/25 05:08 06/02/25 05:08 06/02/25 05:08 06/02/25 05:08 Oxygen Delivery Method Room Air Weight: 56.9 kg Body Mass Index (BMI) 22.2 Intake & Output: Intake and Output for Last 24 Hours 05/31/25 06/01/25 06/02/25 23:59 23:59 23:59 Intake Total 1050 / 1050 668.08 / 668.08 81.17 / 81.17 Output Total 300 / 300 Balance 750 / 750 668.08 / 668.08 81.17 / 81.17 Lab / Micro Data 06/02/25 05:51 06/02/25 05:51 Labs: Laboratory Results - last 24 hr 06/01/25 09:34: Hgb 7.9 L 06/01/25 11:13: Ur Random Sodium 23 06/01/25 18:03: Sodium 117 L*, Potassium 3.7, Chloride 85 L, Carbon Dioxide 19.7L, Anion Gap 12, BUN 17, Creatinine 1.10, Estim Creat Clear Calc 34.87 L, Est GFR (MDRD) Non-Af 51 L, BUN/Creatinine Ratio 15.5, Glucose 154 H, Calcium 8.8 06/02/25 05:51: WBC 8.8, RBC 2.70 L, Hgb 7.9 L, Hct 22.1 L, MCV 81.9, MCH 29.3, MCHC 35.7, RDW Std Deviation 41.7, RDW Coeff of Cathleen 14.2, Plt Count 173, MPV 9.5, Sodium 123 L, Potassium 3.9, Chloride 91 L, Carbon Dioxide 23.0, Anion Gap 9, BUN 22 H, Creatinine 1.21 H, Estim Creat Clear Calc 31.70 L, Est GFR (MDRD) Non-Af 46 L, BUN/Creatinine Ratio 18.2, Glucose 90, Calcium 8.5 Radiography Diagnostic Testing: Radiology Impression Renal Artery Duplex 05/31/25 11:31 Interpretation Summary Right renal artery patent with normal velocities and no evidence of stenosis. Left renal artery patent with normal velocities and no evidence of stenosis. Right renal vein patent. Left renal vein patent. Right kidney diminished in size. Left kidney normal in size. Previously visualized right renal stenosis not identified. 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 Ordering Physician: Nora Govea Referring Physician: MD Ene Glenny Performed By: Estela Tillman RVT Physical Exam Const alert and oriented x3 Nutritional Appearance: thin HEENT normocephalic Resp clear to auscultation bilaterally Cardio regular rate GI non-tender and non-distended Auscultation: normoactive bowel sounds Assessment & Plan Assessment/Plan (1) Hypo-osmolar hyponatremia: PLAN: sodium 123 today after tolvaptan 7.5mg x1 yesterday. Encourage fluids for creatinine 1.2 today. Appetite improved. Repeat urine sodium 23 (2) Uncontrolled hypertension: PLAN: more difficult to manage medically. Not a candidate for angioplasty of right renal artery stenosis. Will try going back on doxazosin. Minixodil same class as hydralazine. (3) Hypokalemia: PLAN: resolved (4) Renal artery stenosis: PLAN: renal duplex (5) Anemia: PLAN: iron studies low, consider replacement 06/04/25 0936 <Electronically signed by Nora Govea DO> Cosigner Signature (if applicable): CC: ~ Signed [facility] Work Phone: 1(303) 393-480608-01-2025 Progress note Author Nora Lee [facility] Note Date/Time June 04, 2025 9:3 6am [facility] Medical Records Department [address] [place] [address] Progress Note - Nephrology 06/03/25 1006 MR#: [id number] Acct: [id number] Name: ALVAARDO COHEN Rep #:[id number] : 1945 79 From: Nora Pettit PCP: Dr. Glenny Luque MD Status:AD M IN Location: [place] [address] Subjective Subjective episode of hypotension with leg weakness, near syncope. Fluid resuscitated. BP meds held. Feeling better today. Oligoanuric with creatinine elevation at 3.06 today. Will hold lisinopril. Hgb 7.3g, may need blood transfusion Objective Data Objective Data Vital Signs: Vital Signs Temp Pulse Resp BP Pulse Ox O2 Del Method 98 F 69 13 129/48 H 92 Room Air 06/03/25 04:30 06/03/25 04:30 06/03/25 04:30 06/03/25 04:30 06/03/25 04:30 06/03/25 04:30 Oxygen Delivery Method Room Air Weight: 55.4 kg Body Mass Index (BMI) 21.6 Intake & Output: Intake and Output for Last 24 Hours 06/01/25 06/02/25 06/03/25 23:59 23:59 23:59 Intake Total 668.08 / 668.08 2095.50 / 2095.50 Output Total 60 / 60 Balance 668.08 / 668.08 2096.50 / 2095.50 -60 / -60 Lab / Micro Data 06/03/25 05:54 06/03/25 05:54 Labs: Laboratory Results - last 24 hr 05/31/25 18:01: Crossmatch See Detail 06/02/25 13:03: POC Glucose 138 H 06/03/25 05:54: WBC 8.4, RBC 2.49 L, Hgb 7.3 L, Hct 21.0 L, MCV 84.3, MCH 29.3, MCHC 34.8, RDW Std Deviation 45.6 H, RDW Coeff of Cathleen 14.8 H, Plt Count 165, MPV9.7, Sodium 125 L, Potassium 4.0, Chloride 94 L, Carbon Dioxide 20.3 L, Anion Gap 11, BUN 32 H, Creatinine 3.06 H, Estim Creat Clear Calc 12.53 L, Est GFR (MDRD) Non-Af 15 L, BUN/Creatinine Ratio 10.4, Glucose 102 H, Calcium 8.4 Radiography Diagnostic Testing: Radiology Impression Lumbar Spine MRI 06/02/25 14:09 IMPRESSION: No acute abnormality. Multilevel spondylotic changes as described, most pronounced at L4-5 with degenerative acquired grade 1 anterolisthesis of L4, and with mild-moderate spinal canal and bilateral neural foraminal narrowing. Neural foraminal narrowing also mild-moderate bilaterally at L5-S1. Reading Location: [facility] Physical Exam Const alert and oriented x3 GI non-tender and non-distended Auscultation: normoactive bowel sounds Palpation: soft Extremity no clubbing, cyanosis or edema Assessment & Plan Assessment/Plan (1) ANTONINO (acute kidney injury): PLAN: Creatinine increased to 3.0 likely due to shock, hypotension. Stop lisinopril, maintain SBP 140 due to ASVD with fluids, hold BP meds as needed, prbc as needed (2) Hypo-osmolar hyponatremia: PLAN: sodium 125 today (3) Uncontrolled hypertension: PLAN: more difficult to manage medically. Not a candidate for angioplasty of right renal artery stenosis. Will try going back on doxazosin. Minixodil same class as hydralazine. (4) Hypokalemia: PLAN: resolved. Stop KCL due to ANTONINO. (5) Renal artery stenosis: PLAN: not a surgical candidate (6) Anemia: PLAN: iron studies low, consider replacement, prbc as needed (7) Hypotension: PLAN: acute hypotension combination of medications, anemia, dehydraton. IV fluids for now. BP stable. Maintain SBP 140 or higher due to ASVD 06/04/25 0936 <Electronically signed by Nora Govea DO> Cosigner Signature (if applicable): CC: ~ Signed [facility] Work Phone: 1(242) 741-922008-01-2025 Progress note [facility] Medical Records Department [address] [place] [id number] Progress Note - Nephrology 06/02/25 0811 MR#: [id number] Acct: [id number] Name: ALVARADO COHEN Rep #:[id number] : 1945 79 From: Nora Pettit PCP: Dr. Glenny Luque MD Status:AD M IN Location: [place] [address]- Subjective Subjective sodium 123 today, s/p endoscopy for anemia, no black stools today. Appetite improving Objective Data Objective Data Vital Signs: Vital Signs Temp Pulse Resp BP Pulse Ox O2 Del Method 97.8 F 59 L 18 170/48 H 95 Room Air 06/02/25 05:08 06/02/25 05:11 06/02/25 05:08 06/02/25 05:08 06/02/25 05:08 06/02/25 05:08 Oxygen Delivery Method Room Air Weight: 56.9 kg Body Mass Index (BMI) 22.2 Intake & Output: Intake and Output for Last 24 Hours 05/31/25 06/01/25 06/02/25 23:59 23:59 23:59 Intake Total 1050 / 1050 668.08 / 668.08 81.17 / 81.17 Output Total 300 / 300 Balance 750 / 750 668.08 / 668.08 81.17 / 81.17 Lab / Micro Data 06/02/25 05:51 06/02/25 05:51 Labs: Laboratory Results - last 24 hr 06/01/25 09:34: Hgb 7.9 L 06/01/25 11:13: Ur Random Sodium 23 06/01/25 18:03: Sodium 117 L*, Potassium 3.7, Chloride 85 L, Carbon Dioxide 19.7L, Anion Gap 12, BUN 17, Creatinine 1.10, Estim Creat Clear Calc 34.87 L, Est GFR (MDRD) Non-Af 51 L, BUN/Creatinine Ratio 15.5, Glucose 154 H, Calcium 8.8 06/02/25 05:51: WBC 8.8, RBC 2.70 L, Hgb 7.9 L, Hct 22.1 L, MCV 81.9, MCH 29.3, MCHC 35.7, RDW Std Deviation 41.7, RDW Coeff of Cathleen 14.2, Plt Count 173, MPV 9.5, Sodium 123 L, Potassium 3.9, [id number] L, Carbon Dioxide 23.0, Anion Gap 9, BUN 22 H, Creatinine 1.21 H, Estim Creat Clear Calc 31.70 L, Est GFR (MDRD) Non-Af 46 L, BUN/Creatinine Ratio 18.2, Glucose 90, Calcium 8.5 Radiography Diagnostic Testing: Radiology Impression Renal Artery Duplex 05/31/25 11:31 Interpretation Summary Right renal artery patent with normal velocities and no evidence of stenosis. Left renal artery patent with normal velocities and no evidence of stenosis. Right renal vein patent. Left renal vein patent. Right kidney diminished in size. Left kidney normal in size. Previously visualized right renal stenosis not identified. 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 Ordering Physician: Nora Govea Referring Physician: MD Glenny Luque Performed By: Estela Tillman RVT Physical Exam Const alert and oriented x3 Nutritional Appearance: thin HEENT normocephalic Resp clear to auscultation bilaterally Cardio regular rate GI non-tender and non-distended Auscultation: normoactive bowel sounds Assessment & Plan Assessment/Plan (1) Hypo-osmolar hyponatremia: PLAN: sodium 123 today after tolvaptan 7.5mg x1 yesterday. Encourage fluids for creatinine 1.2 today. Appetite improved. Repeat urine sodium 23 (2) Uncontrolled hypertension: PLAN: more difficult to manage medically. Not a candidate for angioplasty of right renal artery stenosis. Will try going back on doxazosin. Minixodil same class as hydralazine. (3) Hypokalemia: PLAN: resolved (4) Renal artery stenosis: PLAN: renal duplex (5) Anemia: PLAN: iron studies low, consider replacement 06/04/25 0936 Cosigner Signature (if applicable): CC: ~ Signed [facility]08-01-2025 Progress note [facility] Medical Records Department [address] [place] [address] Progress Note - Nephrology 06/03/25 1006 MR#: [id number] Acct: [id number] Name: ALVARADO COHEN CALLI Rep #:[id number] : 1945 79 From: Nora Pettit PCP: Dr. Glenny Luque MD Status:AD M IN Location: [place] [address] Subjective Subjective episode of hypotension with leg weakness, near syncope. Fluid resuscitated. BP meds held. Feeling better today. Oligoanuric with creatinine elevation at 3.06 today. Will hold lisinopril. Hgb 7.3g, may need blood transfusion Objective Data Objective Data Vital Signs: Vital Signs Temp Pulse Resp BP Pulse Ox O2 Del Method 98 F 69 13 129/48 H 92 Room Air 06/03/25 04:30 06/03/25 04:30 06/03/25 04:30 06/03/25 04:30 06/03/25 04:30 06/03/25 04:30 Oxygen Delivery Method Room Air Weight: 55.4 kg Body Mass Index (BMI) 21.6 Intake & Output: Intake and Output for Last 24 Hours 06/01/25 06/02/25 06/03/25 23:59 23:59 23:59 Intake Total 668.08 / 668.08 2095.50 / 2095.50 Output Total 60 60 Balance 668.08 / 668.08 6.50 / 2095.50 -60 / -60 Lab / Micro Data 06/03/25 05:54 06/03/25 05:54 Labs: Laboratory Results - last 24 hr 05/31/25 18:01: Crossmatch See Detail 06/02/25 13:03: POC Glucose 138 H 06/03/25 05:54: WBC 8.4, RBC 2.49 L, Hgb 7.3 L, Hct 21.0 L, MCV 84.3, MCH 29.3, MCHC 34.8, RDW Std Deviation 45.6 H, RDW Coeff of Cathleen 14.8 H, Plt Count 165, MPV9.7, Sodium 125 L, Potassium 4.0, Chloride 94 L, Carbon Dioxide 20.3 L, Anion Gap 11, BUN 32 H, Creatinine 3.06 H, Estim Creat Clear Calc 12.53 L, Est GFR (MDRD) Non-Af 15 L, BUN/Creatinine Ratio 10.4, Glucose 102 H, Calcium 8.4 Radiography Diagnostic Testing: Radiology Impression Lumbar Spine MRI 06/02/25 14:09 IMPRESSION: No acute abnormality. Multilevel spondylotic changes as described, most pronounced at L4-5 with degenerative acquired grade 1 anterolisthesis of L4, and with mild-moderate spinal canal and bilateral neural foraminal narrowing. Neural foraminal narrowing also mild-moderate bilaterally at L5-S1. Reading Location: [facility] Physical Exam Const alert and oriented x3 GI non-tender and non-distended Auscultation: normoactive bowel sounds Palpation: soft Extremity no clubbing, cyanosis or edema Assessment & Plan Assessment/Plan (1) ANTONINO (acute kidney injury): PLAN: Creatinine increased to 3.0 likely due to shock, hypotension. Stop lisinopril, maintain SBP 140 due to ASVD with fluids, hold BP meds as needed, prbc as needed (2) Hypo-osmolar hyponatremia: PLAN: sodium 125 today (3) Uncontrolled hypertension: PLAN: more difficult to manage medically. Not a candidate for angioplasty of right renal artery stenosis. Will try going back on doxazosin. Minixodil same class as hydralazine. (4) Hypokalemia: PLAN: resolved. Stop KCL due to ANTONINO. (5) Renal artery stenosis: PLAN: not a surgical candidate (6) Anemia: PLAN: iron studies low, consider replacement, prbc as needed (7) Hypotension: PLAN: acute hypotension combination of medications, anemia, dehydraton. IV fluids for now. BP stable. Maintain SBP 140 or higher due to ASVD 06/04/25 0936 Cosigner Signature (if applicable): CC: ~ Signed [facility]07-31-2025 Progress note Author Tiffanie Govea [facility] Note Date/Time June 03, 2025 4:51 pm [facility] Medical Records Department [address] [place] [address] Progress Note - Hospitalist 06/03/25 1622 MR#: [id number] Acct: [id number] Name: ALVARADO COHEN Rep #:[id number] : 1945 79 From: Tiffanie Govea DO PCP: Dr. Glenny Luque MD Status:AD M IN Location: [place] [address] Reason for Visit Chief Complaint: Weakness, lightheadedness, generally feeling unwell Subjective Subjective Patient states he is feeling much better than yesterday. We do suspect that hersymptoms yesterday were related to her hypotension. Nephrology has been hold parameters on her antihypertensives and I am transfusing her some blood as her baseline hemoglobin transfer around 12 and this may be contributing to her overall generalized weakness. Overall, her hemoglobin has stabilized since intervention from GI. Objective Data Objective Data Vital Signs: Vital Signs Temp Pulse Resp BP Pulse Ox O2 Del Method 97.7 F L 65 13 140/50 H 97 Room Air 06/03/25 13:51 06/03/25 15:47 06/03/25 15:47 06/03/25 15:47 06/03/25 15:47 06/03/25 15:47 Oxygen Delivery Method Room Air Weight: 55.4 kg Body Mass Index (BMI) 21.6 Intake & Output: Intake and Output for Last 24 Hours 06/01/25 06/02/25 06/03/25 23:59 23:59 23:59 Intake Total 668.08 / 668.08 2095.50 / 2095.50 1800 / 1800 Output Total 60 / 60 Balance 668.08 / 668.08 2095.50 / 2095.50 1740 / 1740 Lab / Micro Data 06/03/25 05:54 06/03/25 05:54 Labs: Laboratory Results - last 24 hr 05/31/25 18:01: Crossmatch See Detail 06/03/25 05:54: WBC 8.4, RBC 2.49 L, Hgb 7.3 L, Hct 21.0 L, MCV 84.3, MCH 29.3, MCHC 34.8, RDW Std Deviation 45.6 H, RDW Coeff of Cathleen 14.8 H, Plt Count 165, MPV9.7, Sodium 125 L, Potassium 4.0, Chloride 94 L, Carbon Dioxide 20.3 L, Anion Gap 11, BUN 32 H, Creatinine 3.06 H, Estim Creat Clear Calc 12.53 L, Est GFR (MDRD) Non-Af 15 L, BUN/Creatinine Ratio 10.4, Glucose 102 H, Calcium 8.4 Radiography Diagnostic Testing: Radiology Impression Lumbar Spine MRI 06/02/25 14:09 IMPRESSION: No acute abnormality. Multilevel spondylotic changes as described, most pronounced at L4-5 with degenerative acquired grade 1 anterolisthesis of L4, and with mild-moderate spinal canal and bilateral neural foraminal narrowing. Neural foraminal narrowing also mild-moderate bilaterally at L5-S1. Reading Location: [facility] Physical Exam Narrative Low Const alert, oriented x3, no apparent distress, average body habitus and well nourished Constitutional Narrative: Older, white female, sitting up in a chair at the bedside watching TV, looks good currently HEENT normocephalic, head/scalp atraumatic and moist oral mucous membranes HEENT Narrative: Mallampati 2 Eyes Negative for conjunctivae normal Eyes Narrative: no scleral icterus, B Conjunctival pallor Neck supple Neck Narrative: trachea midline Resp normal respiratory effort, no retractions, no use of accessory muscles and clearto auscultation bilaterally Resp Narrative: Slightly diminished diffusely Auscultation: Negative for rales, rhonchi or wheezes Cardio regular rate, regular rhythm, S1 normal heart sound, S2 normal heart sound, no murmurs, no rub, no gallops and no clicks GI normal to inspection, nondistended, normoactive bowel sounds, soft to palpation and non-tender Extremity no clubbing, cyanosis or edema Extremity Narrative: Patient with bilateral clubbing on hands and nailbeds are white, no cyanosis or edema noted, 1+ pedal pulses, 2+ radial pulses Skin no jaundice, no petechiae and no mottling Skin Narrative: pale Neuro oriented x3, moves all extremities, no focal motor deficits and no sensory deficits noted Speech: speech normal Psych affect normal Psych Narrative: Eye contact is good, patient interacts appropriately, very pleasant Assessment & Plan Assessment/Plan (1) Hypo-osmolar hyponatremia: (2) Hypomagnesemia: (3) Hypokalemia: (4) Renal artery stenosis: (5) Uncontrolled hypertension: (6) Acute anemia: (7) GI bleed: (8) Lower extremity weakness: (9) Paresthesia of lower extremity: PLAN: Plan Hypoosmolar hyponatremia - Etiology is unclear but 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 - Continue to hold thiazide diuretic - Patient was given tolvaptan on 06/01 and serum sodium is up to 125 -Patient remains asymptomatic - Nephrology following-appreciate input - Ultimate plan for treatment up to nephrology ANTONINO 2/2 ATN - from hypotension yesterday and free water loss with tolvaptan - Patient somewhat oliguric now and serum creatinine is up from 1-3--> 1.2-3.06 in last 24 hours - Transfused 2 units packed red blood cells and support blood pressure Acute onset bilateral lower extremity paresthesias and weakness - resolved - MRI does not show acute process to explain - suspect related from hypotension and improved with bolus Uncontrolled hypertension - Chlorthalidone is on hold - antihypertensives on hold with parameters - blood pressure hold parameters per nephrology - No intervention able to be performed due to complicated anatomy per vascular surgery - Renal artery duplex studies show normal bilateral renal arteries Acute on chronic anemia secondary to suspected GI bleed -Hemoglobin is relatively stable however patient has had some hemodynamic issuesand ongoing fatigue/lightheadedness so we will transfuse 2 units packed red blood cells today - EGD was performed and patient found to have gastric ulcers as well as multiplesmall bowel AVMs all were treated with heater probe for coagulation with good hemostasis following -Continue Protonix 40 mg p.o. twice daily -Continue Carafate 1 g 4 times daily and will continue for 8 weeks following discharge - Patient was instructed to avoid NSAIDs - GI is following-appreciate input Troponin elevation - Suspect related to GI bleed - Patient chest pain-free - Echocardiogram shows normal EF at 65% with moderate mitral valve insufficiencyand pulmonary systolic pressure 52 mmHg with moderate pulmonary hypertension -No further workup at this time - Recommend outpatient follow-up Generalized weakness - PT and OT are following and current recommendation is home with help/home health care History of right renal artery stenosis - Previously unsuccessful stenting - Repeat duplex does not show a lesion Tobacco abuse - Continue nicotine replacement therapy if needed and desired - Recommend cessation DVT prophylaxis -Continue SCDs CODE STATUS -Full code Charges/Coding Visit Charges Inpatient E&M: 49061 Subs Hosp L3 06/03/25 1651 <Electronically signed by Tiffanie Govea DO> Cosigner Signature (if applicable): CC: ~ Signed [facility] Work Phone: [phone] 437-799307-31-2025 Progress note [facility] Medical Records Department [address] [place] [address] Progress Note - Hospitalist 06/03/25 1622 MR#: [id number] Acct: [id number] Name: ALVARADO COHEN Rep #:[id number] : 1945 79 From: Tiffanie Govea DO PCP: Dr. Glenny Luque MD Status:AD M IN Location: [place] [address] Reason for Visit Chief Complaint: Weakness, lightheadedness, generally feeling unwell Subjective Subjective Patient states he is feeling much better than yesterday. We do suspect that hersymptoms yesterday were related to her hypotension. Nephrology has been hold parameters on her antihypertensives and I am transfusing her some blood as her baseline hemoglobin transfer around 12 and this may be contributing to her overall generalized weakness. Overall, her hemoglobin has stabilized since intervention from GI. Objective Data Objective Data Vital Signs: Vital Signs Temp Pulse Resp BP Pulse Ox O2 Del Method 97.7 F L 65 13 140/50 H 97 Room Air 06/03/25 13:51 06/03/25 15:47 06/03/25 15:47 06/03/25 15:47 06/03/25 15:47 06/03/25 15:47 Oxygen Delivery Method Room Air Weight: 55.4 kg Body Mass Index (BMI) 21.6 Intake & Output: Intake and Output for Last 24 Hours 06/01/25 06/02/25 06/03/25 23:59 23:59 23:59 Intake Total 668.08 / 668.08 2095.50 / 2095.50 1800 / 1800 Output Total 60 / 60 Balance 668.08 / 668.08 2095.50 / 2095.50 1740 / 1740 Lab / Micro Data 06/03/25 05:54 06/03/25 05:54 Labs: Laboratory Results - last 24 hr 05/31/25 18:01: Crossmatch See Detail 06/03/25 05:54: WBC 8.4, RBC 2.49 L, Hgb 7.3 L, Hct 21.0 L, MCV 84.3, MCH 29.3, MCHC 34.8, RDW Std Deviation 45.6 H, RDW Coeff of Cathleen 14.8 H, Plt Count 165, MPV9.7, Sodium 125 L, Potassium 4.0, Chloride 94 L, Carbon Dioxide 20.3 L, Anion Gap 11, BUN 32 H, Creatinine 3.06 H, Estim Creat Clear Calc 12.53 L, Est GFR (MDRD) Non-Af 15 L, BUN/Creatinine Ratio 10.4, Glucose 102 H, Calcium 8.4 Radiography Diagnostic Testing: Radiology Impression Lumbar Spine MRI 06/02/25 14:09 IMPRESSION: No acute abnormality. Multilevel spondylotic changes as described, most pronounced at L4-5 with degenerative acquired grade 1 anterolisthesis of L4, and with mild-moderate spinal canal and bilateral neural foraminal narrowing. Neural foraminal narrowing also mild-moderate bilaterally at L5-S1. Reading Location: [facility] Physical Exam Narrative Low Const alert, oriented x3, no apparent distress, average body habitus and well nourished Constitutional Narrative: Older, white female, sitting up in a chair at the bedside watching TV, looks good currently HEENT normocephalic, head/scalp atraumatic and moist oral mucous membranes HEENT Narrative: Mallampati 2 Eyes Negative for conjunctivae normal Eyes Narrative: no scleral icterus, B Conjunctival pallor Neck supple Neck Narrative: trachea midline Resp normal respiratory effort, no retractions, no use of accessory muscles and clearto auscultation bilaterally Resp Narrative: Slightly diminished diffusely Auscultation: Negative for rales, rhonchi or wheezes Cardio regular rate, regular rhythm, S1 normal heart sound, S2 normal heart sound, no murmurs, no rub, no gallops and no clicks GI normal to inspection, nondistended, normoactive bowel sounds, soft to palpation and non-tender Extremity no clubbing, cyanosis or edema Extremity Narrative: Patient with bilateral clubbing on hands and nailbeds are white, no cyanosis or edema noted, 1+ pedal pulses, 2+ radial pulses Skin no jaundice, no petechiae and no mottling Skin Narrative: pale Neuro oriented x3, moves all extremities, no focal motor deficits and no sensory deficits noted Speech: speech normal Psych affect normal Psych Narrative: Eye contact is good, patient interacts appropriately, very pleasant Assessment & Plan Assessment/Plan (1) Hypo-osmolar hyponatremia: (2) Hypomagnesemia: (3) Hypokalemia: (4) Renal artery stenosis: (5) Uncontrolled hypertension: (6) Acute anemia: (7) GI bleed: (8) Lower extremity weakness: (9) Paresthesia of lower extremity: PLAN: Plan Hypoosmolar hyponatremia - Etiology is unclear but 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 - Continue to hold thiazide diuretic - Patient was given tolvaptan on 06/01 and serum sodium is up to 125 -Patient remains asymptomatic - Nephrology following-appreciate input - Ultimate plan for treatment up to nephrology ANTONINO 2/2 ATN - from hypotension yesterday and free water loss with tolvaptan - Patient somewhat oliguric now and serum creatinine is up from 1-3--> 1.2-3.06 in last 24 hours - Transfused 2 units packed red blood cells and support blood pressure Acute onset bilateral lower extremity paresthesias and weakness - resolved - MRI does not show acute process to explain - suspect related from hypotension and improved with bolus Uncontrolled hypertension - Chlorthalidone is on hold - antihypertensives on hold with parameters - blood pressure hold parameters per nephrology - No intervention able to be performed due to complicated anatomy per vascular surgery - Renal artery duplex studies show normal bilateral renal arteries Acute on chronic anemia secondary to suspected GI bleed -Hemoglobin is relatively stable however patient has had some hemodynamic issuesand ongoing fatigue/lightheadedness so we will transfuse 2 units packed red blood cells today - EGD was performed and patient found to have gastric ulcers as well as multiplesmall bowel AVMs all were treated with heater probe for coagulation with good hemostasis following -Continue Protonix 40 mg p.o. twice daily -Continue Carafate 1 g 4 times daily and will continue for 8 weeks following discharge - Patient was instructed to avoid NSAIDs - GI is following-appreciate input Troponin elevation - Suspect related to GI bleed - Patient chest pain-free - Echocardiogram shows normal EF at 65% with moderate mitral valve insufficiencyand pulmonary systolic pressure 52 mmHg with moderate pulmonary hypertension -No further workup at this time - Recommend outpatient follow-up Generalized weakness - PT and OT are following and current recommendation is home with help/home health care History of right renal artery stenosis - Previously unsuccessful stenting - Repeat duplex does not show a lesion Tobacco abuse - Continue nicotine replacement therapy if needed and desired - Recommend cessation DVT prophylaxis -Continue SCDs CODE STATUS -Full code Charges/Coding Visit Charges Inpatient E&M: 16888 Subs Hosp L3 06/03/25 1651 Cosigner Signature (if applicable): CC: ~ Signed [facility]07-30-2025 Progress note Author Tiffanie Govea [facility] Note Date/Time June 02, 2025 4:43 pm [facility] Medical Records Department [address] [place] [address] Progress Note - Hospitalist 06/02/25 0755 MR#: [id number] Acct: [id number] Name: ALVARADO COHEN CALLI Rep #:[id number] : 1945 79 From: Tiffanie Govea DO PCP: Dr. Glenny Luque MD Status:AD M IN Location: [place] [address] 1 Reason for Visit Chief Complaint: Weakness, lightheadedness, generally feeling unwell Subjective Subjective I saw the patient earlier in the day and she states she feels the best she ever felt. We did discuss possible discharge tomorrow and she requested that she stay another day. I did discuss with her that it would likely depend on how shewas feeling. About 15 to 20 minutes after I evaluated her, she complained of bilateral lower extremity numbness and weakness with the inability to move her legs. Nursing did state that she was noted on the monitor able to move her legslater after initial evaluation. Nonetheless we did order an MRI of her lumbar spine rule out any acute etiology that could be responsible for this. In addition to this she also was noted to have low blood pressure. Nephrology is managing her medications and they were called and notified with hold parameters placed on her medications per nephrology. Objective Data Objective Data Vital Signs: Vital Signs Temp Pulse Resp BP Pulse Ox O2 Del Method 97.8 F 59 L 18 170/48 H 95 Room Air 06/02/25 05:08 06/02/25 05:11 06/02/25 05:08 06/02/25 05:08 06/02/25 05:08 06/02/25 05:08 Oxygen Delivery Method Room Air Weight: 56.9 kg Body Mass Index (BMI) 22.2 Intake & Output: Intake and Output for Last 24 Hours 05/31/25 06/01/25 06/02/25 23:59 23:59 23:59 Intake Total 1050 / 1050 668.08 / 668.08 81.17 / 81.17 Output Total 300 / 300 Balance 750 / 750 668.08 / 668.08 81.17 / 81.17 Lab / Micro Data 06/02/25 05:51 06/02/25 05:51 Labs: Laboratory Results - last 24 hr 06/01/25 09:34: Hgb 7.9 L 06/01/25 11:13: Ur Random Sodium 23 06/01/25 18:03: Sodium 117 L*, Potassium 3.7, Chloride 85 L, Carbon Dioxide 19.7L, Anion Gap 12, BUN 17, Creatinine 1.10, Estim Creat Clear Calc 34.87 L, Est GFR (MDRD) Non-Af 51 L, BUN/Creatinine Ratio 15.5, Glucose 154 H, Calcium 8.8 06/02/25 05:51: WBC 8.8, RBC 2.70 L, Hgb 7.9 L, Hct 22.1 L, MCV 81.9, MCH 29.3, MCHC 35.7, RDW Std Deviation 41.7, RDW Coeff of Cathleen 14.2, Plt Count 173, MPV 9.5, Sodium 123 L, Potassium 3.9, Chloride 91 L, Carbon Dioxide 23.0, Anion Gap 9, BUN 22 H, Creatinine 1.21 H, Estim Creat Clear Calc 31.70 L, Est GFR (MDRD) Non-Af 46 L, BUN/Creatinine Ratio 18.2, Glucose 90, Calcium 8.5 Physical Exam Const alert, oriented x3, no apparent distress, average body habitus, healthy appearing and well nourished Constitutional Narrative: Older, white female, sitting up in a chair at the bedside eating lunch and watching television, appears comfortable, nontoxic, looks the best I have seen her look since admitted General Appearance: cooperative, well kempt and well developed HEENT normocephalic, head/scalp atraumatic and moist oral mucous membranes HEENT Narrative: Mallampati 2, no thrush Neck General: trachea midline Resp normal respiratory effort, no retractions, no use of accessory muscles and clearto auscultation bilaterally Resp Narrative: Slightly diminished diffusely Auscultation: Negative for rales, rhonchi or wheezes Cardio regular rate, regular rhythm, S1 normal heart sound, S2 normal heart sound, no murmurs, no rub, no gallops and no clicks GI normal to inspection, nondistended, normoactive bowel sounds, soft to palpation and non-tender Extremity no clubbing, cyanosis or edema Extremity Narrative: Patient with bilateral clubbing on hands and nailbeds are white, no cyanosis or edema noted, 1+ pedal pulses, 2+ radial pulses Neuro moves all extremities and no focal motor deficits Speech: speech normal Psych affect normal Psych Narrative: Eye contact is good, patient interacts appropriately, very pleasant Assessment & Plan Assessment/Plan (1) Hypo-osmolar hyponatremia: (2) Hypomagnesemia: (3) Hypokalemia: (4) Renal artery stenosis: (5) Uncontrolled hypertension: (6) Acute anemia: (7) GI bleed: (8) Lower extremity weakness: (9) Paresthesia of lower extremity: PLAN: Plan Hypoosmolar hyponatremia - TSH within normal limits - Cortisol within normal limits - Etiology is unclear but 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 - Continue to hold thiazide diuretic - Patient was given tolvaptan and serum sodium is up to 123 -Has developed some mild ANTONINO due to the volume loss - Nephrology following-appreciate input - CT of the chest was unremarkable for malignancy - Ultimate plan for treatment up to nephrology Acute onset bilateral lower extremity paresthesias and weakness - Quick onset and resolution - Neurochecks are now unremarkable - MRI of the lumbar spine is pending - Patient was somewhat anxious about discharge to be be supratentorial however will monitor closely as blood pressure was dropped at that time as well Uncontrolled hypertension - Chlorthalidone is on hold - Continue home amlodipine - Continue home hydralazine - Continue home lisinopril - Continue home metoprolol - Continue Isordil - Minoxidil stopped as there is overlap with hydralazine - Cardura per nephrology - With drop in blood pressure hold parameters per nephrology - No intervention able to be performed due to complicated anatomy per vascular surgery - Renal artery duplex studies show normal bilateral renal arteries Acute on chronic anemia secondary to suspected GI bleed - Previous labs we have here from October 2024 and on admission show a hemoglobin between 10 and 12 - Hemoglobin dropped to a radha of 6.6 overnight and received 1 unit of packed red blood cells--> hemoglobin stable at 7.9 on repeat from yesterday afternoon - EGD was performed and patient found to have gastric ulcers as well as multiplesmall bowel AVMs all were treated with heater probe for coagulation with good hemostasis following - Transition IV Protonix to 40 mg p.o. twice daily and will continue this for atleast 3 months with GI follow-up after discharge - Start Carafate 1 g 4 times daily and will continue for 8 weeks following discharge - Patient was instructed to avoid NSAIDs - GI is following-appreciate input Troponin elevation - Suspect related to GI bleed with - Echocardiogram shows normal EF at 65% with moderate mitral valve insufficiencyand pulmonary systolic pressure 52 mmHg with moderate pulmonary hypertension - Will defer further workup if echo is unremarkable for wall motion abnormalities Generalized weakness - PT and OT are following and current recommendation is home with help/home health care History of right renal artery stenosis - Previously unsuccessful stenting - Repeat duplex does not show a lesion Tobacco abuse - Continue nicotine replacement therapy if needed and desired - Recommend cessation DVT prophylaxis -Continue SCDs CODE STATUS -Full code Charges/Coding Visit Charges Inpatient E&M: 56323 Subs Hosp L2 06/02/25 4248 <Electronically signed by Tiffanie Govea DO> Cosigner Signature (if applicable): CC: ~ Signed [facility] Work Phone: [phone]) 184-911407-30-2025 Progress note [facility] Medical Records Department [address] [place] [address] Progress Note - Hospitalist 06/02/25 0758 MR#: [id number] Acct: [id number] Name: ALVARADO COHEN Rep #:[id number] : 1945 79 From: Tiffanie Govea DO PCP: Dr. Glenny Luque MD Status:AD M IN Location: [place] [address]- 1 Reason for Visit Chief Complaint: Weakness, lightheadedness, generally feeling unwell Subjective Subjective I saw the patient earlier in the day and she states she feels the best she ever felt. We did discuss possible discharge tomorrow and she requested that she stay another day. I did discuss with her that it would likely depend on how shewas feeling. About 15 to 20 minutes after I evaluated her, she complained of bilateral lower extremity numbness and weakness with the inability to move her legs. Nursing did state that she was noted on the monitor able to move her legslater after initial evaluation. Nonetheless we did order an MRI of her lumbar spine rule out any acute etiology that could be responsible for this. In addition to this she also was noted to have low blood pressure. Nephrology is m anaging her medications and they were called and notified with hold parameters placed on her medications per nephrology. Objective Data Objective Data Vital Signs: Vital Signs Temp Pulse Resp BP Pulse Ox O2 Del Method 97.8 F 59 L 18 170/48 H 95 Room Air 06/02/25 05:08 06/02/25 05:11 06/02/25 05:08 06/02/25 05:08 06/02/25 05:08 06/02/25 05:08 Oxygen Delivery Method Room Air Weight: 56.9 kg Body Mass Index (BMI) 22.2 Intake & Output: Intake and Output for Last 24 Hours 05/31/25 06/01/25 06/02/25 23:59 23:59 23:59 Intake Total 1050 / 1050 668.08 / 668.08 81.17 / 81.17 Output Total 300 / 300 Balance 750 / 750 668.08 / 668.08 81.17 / 81.17 Lab / Micro Data 06/02/25 05:51 06/02/25 05:51 Labs: Laboratory Results - last 24 hr 06/01/25 09:34: Hgb 7.9 L 06/01/25 11:13: Ur Random Sodium 23 06/01/25 18:03: Sodium 117 L*, Potassium 3.7, Chloride 85 L, Carbon Dioxide 19.7L, Anion Gap 12, BUN 17, Creatinine 1.10, Estim Creat Clear Calc 34.87 L, Est GFR (MDRD) Non-Af 51 L, BUN/Creatinine Ratio 15.5, Glucose 154 H, Calcium 8.8 06/02/25 05:51: WBC 8.8, RBC 2.70 L, Hgb 7.9 L, Hct 22.1 L, MCV 81.9, MCH 29.3, MCHC 35.7, RDW Std Deviation 41.7, RDW Coeff of Cathleen 14.2, Plt Count 173, MPV 9.5, Sodium 123 L, Potassium 3.9, Efjnnbqu20 L, Carbon Dioxide 23.0, Anion Gap 9, BUN 22 H, Creatinine 1.21 H, Estim Creat Clear Calc 31.70 L, Est GFR (MDRD) Non-Af 46 L, BUN/Creatinine Ratio 18.2, Glucose 90, Calcium 8.5 Physical Exam Const alert, oriented x3, no apparent distress, average body habitus, healthy appearing and well nourished Constitutional Narrative: Older, white female, sitting up in a chair at the bedside eating lunch and watching television, appears comfortable, nontoxic, looks the best I have seen her look since admitted General Appearance: cooperative, well kempt and well developed HEENT normocephalic, head/scalp atraumatic and moist oral mucous membranes HEENT Narrative: Mallampati 2, no thrush Neck General: trachea midline Resp normal respiratory effort, no retractions, no use of accessory muscles and clearto auscultation bilaterally Resp Narrative: Slightly diminished diffusely Auscultation: Negative for rales, rhonchi or wheezes Cardio regular rate, regular rhythm, S1 normal heart sound, S2 normal heart sound, no murmurs, no rub, no gallops and no clicks GI normal to inspection, nondistended, normoactive bowel sounds, soft to palpation and non-tender Extremity no clubbing, cyanosis or edema Extremity Narrative: Patient with bilateral clubbing on hands and nailbeds are white, no cyanosis or edema noted, 1+ pedal pulses, 2+ radial pulses Neuro moves all extremities and no focal motor deficits Speech: speech normal Psych affect normal Psych Narrative: Eye contact is good, patient interacts appropriately, very pleasant Assessment & Plan Assessment/Plan (1) Hypo-osmolar hyponatremia: (2) Hypomagnesemia: (3) Hypokalemia: (4) Renal artery stenosis: (5) Uncontrolled hypertension: (6) Acute anemia: (7) GI bleed: (8) Lower extremity weakness: (9) Paresthesia of lower extremity: PLAN: Plan Hypoosmolar hyponatremia - TSH within normal limits - Cortisol within normal limits - Etiology is unclear but 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 - Continue to hold thiazide diuretic - Patient was given tolvaptan and serum sodium is up to 123 -Has developed some mild ANTONINO due to the volume loss - Nephrology following-appreciate input - CT of the chest was unremarkable for malignancy - Ultimate plan for treatment up to nephrology Acute onset bilateral lower extremity paresthesias and weakness - Quick onset and resolution - Neurochecks are now unremarkable - MRI of the lumbar spine is pending - Patient was somewhat anxious about discharge to be be supratentorial however will monitor closelyas blood pressure was dropped at that time as well Uncontrolled hypertension - Chlorthalidone is on hold - Continue home amlodipine - Continue home hydralazine - Continue home lisinopril - Continue home metoprolol - Continue Isordil - Minoxidil stopped as there is overlap with hydralazine - Cardura per nephrology - With drop in blood pressure hold parameters per nephrology - No intervention able to be performed due to complicated anatomy per vascular surgery - Renal artery duplex studies show normal bilateral renal arteries Acute on chronic anemia secondary to suspected GI bleed - Previous labs we have here from October 2024 and on admission show a hemoglobin between 10 and 12 - Hemoglobin dropped to a radha of 6.6 overnight and received 1 unit of packed red blood cells--> hemoglobin stable at 7.9 on repeat from yesterday afternoon - EGD was performed and patient found to have gastric ulcers as well as multiplesmall bowel AVMs all were treated with heater probe for coagulation with good hemostasis following - Transition IV Protonix to 40 mg p.o. twice daily and will continue this for atleast 3 months withGI follow-up after discharge - Start Carafate 1 g 4 times daily and will continue for 8 weeks following discharge - Patient was instructed to avoid NSAIDs - GI is following-appreciate input Troponin elevation - Suspect related to GI bleed with - Echocardiogram shows normal EF at 65% with moderate mitral valve insufficiencyand pulmonary systolic pressure 52 mmHg with moderate pulmonary hypertension - Will defer further workup if echo is unremarkable for wall motion abnormalities Generalized weakness - PT and OT are following and current recommendation is home with help/home health care History of right renal artery stenosis - Previously unsuccessful stenting - Repeat duplex does not show a lesion Tobacco abuse - Continue nicotine replacement therapy if needed and desired - Recommend cessation DVT prophylaxis -Continue SCDs CODE STATUS -Full code Charges/Coding Visit Charges Inpatient E&M: 05577 Subs Hosp L2 06/02/25 1640 Cosigner Signature (if applicable): CC: ~ Signed [facility]07-29-2025 Consult note Author Jaspreet Fraire [facility] Note Date/Time June 01, 2025 8:33 pm [facility] Medical Records Department [address] [place] [address] Anesthesia Postop Eval II 06/01/252027 MR#: [id number] Acct: [id number] Name: ALVARADO COHEN Rep #:[id number] : 1945 79 From: Jaspreet Fraire MD PCP: Dr. Glenny Luque MD Status:AD M IN Y Race: C Location: [place] [address] 9-1 Anesthesia Postop Eval I Sum Postop Eval Completion status Anesthesia document: Postop Eval 1 completed: Yes Anesthesia Postop Eval I Summary Anesthesia Postop Eval I Summary: Anesthesia Postop Eval I: Assessment Summary Airway patent Yes 06/01/25 16:23 CASING MAN.APAT Spontaneous unlabored Yes 06/01/25 16:23 CASING MAN.APAT respirations Mental status Asleep 06/01/25 16:23 CASING MAN.APAT nausea No 06/01/25 16:23 CASING MAN.APAT Vomiting No 06/01/25 16:23 CASING MAN.APAT Anesthesia Postop Eval I: Fluid Summary Crystalloid volume administer 400 06/01/25 16:23 CASING MAN.APAT (ml) Colloids volume administered ( ml) Blood Product volume administered (ml) Total IV fluid infused 400 06/01/25 16:23 CASING MAN.APAT Anesthesia Postop Eval I: Summary Notes Anesthesia Complication No 06/01/25 16:23 CASING MAN.APAT Anesthesia Complication Comment: Post-operative progress note Anesthesia: Postop Eval II Evaluation Mental status: Awake and Calm Pain Level: 0 nausea: No Vomiting: No Complications Anesthesia Complication: No 06/01/252032 <Electronically signed by Jaspreet ma MD> Date _ Jaspreet Fraire MD Cosigner Signature: Date CC: ~ Signed [facility] Work Phone: 1(686) 444-484707-29-2025 Consult note [facility] Medical Records Department [address] [place] [address] Anesthesia Postop Eval II 06/01/252027 MR#: [id number] Acct: [id number] Name: ALVARADO COHEN CALLI Rep #:[id number] : 1945 79 From: Jaspreet Fraire MD PCP: Dr. Glenny Luque MD Status:AD M IN Y Race: C Location: [place] [address] Anesthesia Postop Eval I Sum Postop Eval Completion status Anesthesia document: Postop Eval 1 completed: Yes Anesthesia Postop Eval I Summary Anesthesia Postop Eval I Summary: Anesthesia Postop Eval I: Assessment Summary Airway patent Yes 06/01/25 16:23 CASING MAN.APAT Spontaneous unlabored Yes 06/01/25 16:23 CASING MAN.APAT respirations Mental status Asleep 06/01/25 16:23 CASING MAN.APAT nausea No 06/01/25 16:23 CASING MAN.APAT Vomiting No 06/01/25 16:23 CASING MAN.APAT Anesthesia Postop Eval I: Fluid Summary Crystalloid volume administer 400 06/01/25 16:23 CASING MAN.APAT (ml) Colloids volume administered ( ml) Blood Product volume administered (ml) Total IV fluid infused 400 06/01/25 16:23 CASING MAN.APAT Anesthesia Postop Eval I: Summary Notes Anesthesia Complication No 06/01/25 16:23 CASING MAN.APAT Anesthesia Complication Comment: Post-operative progress note Anesthesia: Postop Eval II Evaluation Mental status: Awake and Calm Pain Level: 0 nausea: No Vomiting: No Complications Anesthesia Complication: No 06/01/252032 francesca RUELAS> Date _ Jaspreet Fraire MD Cosigner Signature: Date CC: ~ Signed [facility]07-29-2025 Consult note Author Porfirio Mei [facility] Note Date/Time June 01, 2025 5:53 pm [facility] Medical Records Department [address] [place] [address] Consultation - Surgical 06/01/25 1745 MR#: [id number] Acct: [id number] Name: ALVARADO COHEN CALLI Rep #:[id number] : 1945 79 From: Porfirio Mei MD PCP: Dr. Glenny Luque MD Status:AD M IN Location: [place] [address] Assessment & Plan Assessment/Plan (1) Renal artery stenosis: PLAN: -contributing to her chronic difficulty controlling BP -given anatomic barriers to endo tx and small vessel size my not have any great treatment option -since modestly controlled would not push efforts to treat, particularly given new UGI bleed -will cont to follow HPI Consult Data Date of Consult: 06/01/25 HPI Narrative HPI Narrative: ALVARADO COHEN, is a 79 F who is admitted with hyponatremia, recent adjustments in her BP meds. She has known right accessory renal artery stenosis that could not be fixed endovascular previously due to significant aortic calcific burden. Discussion at that time was to continue with medical management and as long as modest BP control would not further pursue treatment. Given that vessel with stenosis is accessory and perfuses smaller portion of renal parenchyma bypass options may not have great result and if vessel ultimately occludes her renal function would be preserved. During this admission also found to have anemia, UGI bleed treated endoscopically [facility] Medical History Renal artery stenosis HTN (hypertension) Home Medications ?Medication ?Instructions ?Recorded ?Last Taken ?Type amlodipine 10 mg tablet 10 mg PO DAILY 03/21/2305/05 History chlorthalidone 25 mg tablet 25 mg PO QDAY 08/27/24 History metoprolol succinate 50 mg 50 mg PO BID 08/27/2405/29 History tablet,extended release 24 hr hydralazine 25 mg tablet 25 mg PO BID high blood pres sure 10/06/24 05/29/25 History lisinopril 30 mg tablet 30 mg PO BID High blood pres sure 10/06/24 05/29/25 History Allergy/AdvReac Type Severity Reaction Status Date / Time codeine Allergy PT UNSURE Verified 05/29/25 12:50 OF REACTION Sulfa (Sulfonamide Allergy Rash Verified 05/29/25 12:50 Antibiotics) (sulfa drugs) Family History Other Asthma Cancer Hypertension Surgical History H/O cone biopsy of cervix (~1977) Social History Smoking Status: Light Smoker (<10/day) Tobacco: How many years used: 40 quit status: considering quitting Physical Exam Const alert, oriented x3, no apparent distress and healthy appearing General Appearance: cooperative; Negative for combative or lethargic Orientation / Consciousness: awake Exam Limitations: no limitations HEENT Head and Scalp: normocephalic and atraumatic Eyes EOMs intact bilaterally General Eye: normal appearance of both eyes Neck full ROM General: trachea midline Resp normal respiratory effort and no use [...] normal, speech normal and activity/motor behavior normal Lab / Micro Data 06/01/25 09:34 06/01/25 04:58 Labs: Laboratory Results - last 24 hr 05/31/25 18:01: Blood Type A POSITIVE, ABO/Rh Cancelled, A1 Subgroup Cancelled, Rho(D) Tech Interpret Cancelled, Antibody Screen NEGATIVE, Crossmatch See Detail 05/31/25 21:48: Sodium 109 L* 06/01/25 00:09: Hgb 6.6 L 06/01/25 04:58: WBC 8.6, RBC 2.70 L, Hgb 8.0 L, Hct 21.6 L, MCV 80.0 L, MCH 29.6, MCHC 37.0 H, RDW Std Deviation 38.1, RDW Coeff of Cathleen 13.3, Plt Count 178,MPV 10.0, Immature Gran % (Auto) 0.900, Neut % (Auto) 72.0 H, Lymph % (Auto) 14.4 L, [place] % (Auto) 11.4 H, Eos % (Auto) 0.9, Baso % (Auto) 0.4, Absolute Neuts (auto) 6.2, Absolute Lymphs (auto) 1.23, Nucleated RBC % 0, Sodium 109 L*,Potassium 3.8, Chloride 77 L, Carbon Dioxide 20.6 L, Anion Gap 11, BUN 21 H, Creatinine 0.96, Estim Creat Clear Calc 39.95 L, Est GFR (MDRD) Non-Af 61, BUN/Creatinine Ratio 21.7 H, Glucose 88, Calcium 8.3, Phosphorus 2.8, Magnesium 1.7, Total Bilirubin 0.95, AST 27, ALT 16, Alkaline Phosphatase 59, Total Protein 5.1 L, Albumin 3.4, Globulin 1.6 L, Albumin/Globulin Ratio 2.1 06/01/25 09:34: Hgb 7.9 L 06/01/25 11:13: Ur Random Sodium 23 Charges/Coding Visit Charges Inpatient E&M: 57131 Init Hosp L1 06/01/25 8483 <Electronically signed by Porfirio Mei MD> Cosigner Signature (if applicable): CC: Dr. Glenny Luque MD~ Signed [facility] Work Phone: [phone]) [phone] Consult note Author Narendra Galeano [facility] Note Date/Time June 01, 2025 4:23 pm [facility] Medical Records Department [address] [place] [address] Anesthesia Postop Eval I 06/01/25 1622 MR#: [id number] Acct: [id number] Name: ALVARADO COHNE Rep #:[id number] : 1945 79 From: Narendra Galeano CRNA PCP: Dr. Glenny Luque MD Status:AD M IN Y Race: C Location: [place] [address] Anesthesia: Postop Eval I Current Vital Signs Temperature: 98.9 F Pulse Rate: 60 Blood Pressure: 144/37 Respiratory Rate: 15 Pulse Ox: 97 Oxygen Delivery Method: Room Air Assessment Airway patent: Yes Spontaneous unlabored respirations: Yes Mental status: Asleep nausea: No Vomiting: No Anesthesia Complication: No Fluid Hydration Crystalloid volume administer (ml): 400 Total IV fluid infused: 400 Progress Note Anesthesia document: Postop Eval 1 completed: Yes 06/01/251622 <Electronically signed by Narendra ratliff CRNA> Date _ Narendra Galeano CRNA Cosigner Signature: Date CC: ~ Signed [facility] Work Phone: [phone]) [phone] Consult note [facility] Medical Records Department [address] [place] [address] Consultation - Surgical 06/01/25 1745 MR#: [id number] Acct: [id number] Name: ALVARADO COHEN Rep #:[id number] : 1945 79 From: Porfirio Mei MD PCP: Dr. Glenny Luque MD Status:AD M IN [facility] Assessment & Plan Assessment/Plan (1) Renal artery stenosis: PLAN: -contributing to her chronic difficulty controlling BP -given anatomic barriers to endo tx and small vessel size my not have any great treatment option -since modestly controlled would not push efforts to treat, particularly given new UGI bleed -will cont to follow HPI Consult Data Date of Consult: 06/01/25 HPI Narrative HPI Narrative: ALVARADO COHEN, is a 79 F who is admitted with hyponatremia, recent adjustments in her BP meds. She has known right accessory renal artery stenosis that could not be fixed endovascular previously due tosignificant aortic calcific burden. Discussion at that time was to continue with medical managementand as long as modest BP control would not further pursue treatment. Given that vessel with stenosis is accessory and perfuses smaller portion of renal parenchyma bypass options may not have great result and if vessel ultimately occludes her renal function would be preserved. During this admission also found to have anemia, UGI bleed treated endoscopically [facility] Medical History Renal artery stenosis HTN (hypertension) Home Medications ?Medication ?Instructions ?Recorded ?Last Taken ?Type amlodipine 10 mg tablet 10 mg PO DAILY 03/21/2305/05 History chlorthalidone 25 mg tablet 25 mg PO QDAY 08/27/24 History metoprolol succinate 50 mg 50 mg PO BID 08/27/2405/29 History tablet,extended release 24 hr hydralazine 25 mg tablet 25 mg PO BID high blood pres sure 10/06/24 05/29/25 History lisinopril 30 mg tablet 30 mg PO BID High blood pres sure 10/06/24 05/29/25 History Allergy/AdvReac Type Severity Reaction Status Date / Time codeine Allergy PT UNSURE Verified 05/29/25 12:50 OF REACTION Sulfa (Sulfonamide Allergy Rash Verified 05/29/25 12:50 Antibiotics) (sulfa drugs) Family History Other Asthma Cancer Hypertension Surgical History H/O cone biopsy of cervix (~1977) Social History Smoking Status: Light Smoker (<10/day) Tobacco: How many years used: 40 quit status: considering quitting Physical Exam Const alert, oriented x3, no apparent distress and healthy appearing General Appearance: cooperative; Negative for combative or lethargic Orientation / Consciousness: awake Exam Limitations: no limitations HEENT Head and Scalp: normocephalic and atraumatic Eyes EOMs intact bilaterally General Eye: normal appearance of both eyes Neck full ROM General: trachea midline Resp normal respiratory effort and no use [...] normal, speech normal and activity/motor behavior normal Lab / Micro Data 06/01/25 09:34 06/01/25 04:58 Labs: Laboratory Results - last 24 hr 05/31/25 18:01: Blood Type A POSITIVE, ABO/Rh Cancelled, A1 Subgroup Cancelled, Rho(D) Tech Interpret Cancelled, Antibody Screen NEGATIVE, Crossmatch See Detail 05/31/25 21:48: Sodium 109 L* 06/01/25 00:09: Hgb 6.6 L 06/01/25 04:58: WBC 8.6, RBC 2.70 L, Hgb 8.0 L, Hct 21.6 L, MCV 80.0 L, MCH 29.6, MCHC 37.0 H, RDW Std Deviation 38.1, RDW Coeff of Cathleen 13.3, Plt Count 178,MPV 10.0, Immature Gran % (Auto) 0.900, Neut % (Auto) 72.0 H, Lymph % (Auto) 14.4 L, Windsor % (Auto) 11.4 H, Eos % (Auto) 0.9, Baso % (Auto) 0.4,Absolute Neuts (auto) 6.2, Absolute Lymphs (auto) 1.23, Nucleated RBC % 0, Sodium 109 L*,Potassium 3.8, Chloride 77 L, Carbon Dioxide 20.6 L, Anion Gap 11, BUN 21 H, Creatinine 0.96, Estim Creat Clear Calc 39.95 L, Est GFR (MDRD) Non-Af 61, BUN/Creatinine Ratio 21.7 H, Glucose 88, Calcium 8.3, Phosphorus 2.8, Magnesium 1.7, Total Bilirubin 0.95, AST 27, ALT 16, Alkaline Phosphatase 59, Total Prote in 5.1 L, Albumin 3.4, Globulin 1.6 L, Albumin/Globulin Ratio 2.1 06/01/25 09:34: Hgb 7.9 L 06/01/25 11:13: Ur Random Sodium 23 Charges/Coding Visit Charges Inpatient E&M: 23514 Init Hosp L1 06/01/25 3826 Cosigner Signature (if applicable): CC: Dr. Glenny Luque MD~ Signed [facility]07-29-2025 Consult note Author Juan Manuel Valdovinos [facility] Note Date/Time June 01, 2025 3:35 pm [facility] Medical Records Department [address] [place] [address] Consultation - GI 06/01/25 1515 MR#: [id number] Acct: [id number] Name: ALVARADO COHEN CALLI Rep #:[id number] : 1945 79 From: Juan Manuel Valdovinos DO PCP: Dr. Glenny Luque MD Status:AD M IN Location: [place] [address] HPI Consult Data Date of Consult: 06/01/25 HPI Narrative Reason for Consultation: Anemia HPI Narrative: ALVARADO COHEN, is a 79-year-old female history of hypertension and renal artery stenosis presented [facility] ED 05/29/2025 with increased shortness of breath, swelling, dizziness and weakness for 4 days. In the ED temp 97.8, heart rate of 68 and blood pressure 185/54, respiratory rate 18 and pulse ox 96% on room air. CBC with white blood cell count of 8.6, hemoglobin 10.2. UA not suggestive of infection, proBNP elevated at 5274 and troponin 20. CMP however revealed a sodium of 106, potassium of 3.5, chloride of 73 and BUN of 21 with a creatinine of 1.06. Glucose 121 and liver profile within normal limits. Sodium low at 106 on admit to 110 today. Last sodium 131 on 04/02/25 from [facility]. She has been on chlorthalidone retirement. Recently started on doxazosinfor uncontrolled hypertension in May then stopped after intolerance to it with weakness, swelling. I was asked to see her due to decreasing hemoglobin from 10.2 down to 6.6. She does endorse dark stools. [facility] Medical History Renal artery stenosis HTN (hypertension) Home Medications ?Medication ?Instructions ?Recorded ?Last Taken ?Type amlodipine 10 mg tablet 10 mg PO DAILY 03/21/2305/05 History chlorthalidone 25 mg tablet 25 mg PO QDAY 08/27/24 History metoprolol succinate 50 mg 50 mg PO BID 08/27/2405/29 History tablet,extended release 24 hr hydralazine 25 mg tablet 25 mg PO BID high blood pres sure 10/06/24 05/29/25 History lisinopril 30 mg tablet 30 mg PO BID High blood pres sure 10/06/24 05/29/25 History Allergy/AdvReac Type Severity Reaction Status Date / Time codeine Allergy PT UNSURE Verified 05/29/25 12:50 OF REACTION Sulfa (Sulfonamide Allergy Rash Verified 05/29/25 12:50 Antibiotics) (sulfa drugs) Family History Other Asthma Cancer Hypertension Surgical History H/O cone biopsy of cervix (~1977) Social History Smoking Status: Light Smoker (<10/day) Tobacco: How many years used: 40 quit status: considering quitting ROS Constitutional Constitutional: Denies fatigue, fever(s), poor appetite, weight gain or weight loss Gastrointestinal Gastrointestinal: Denies belching, bloating, change in bowel habits, change in stool character, chewing difficulty, coffee ground emesis, constipation, cramping, diarrhea, dyspepsia, dysphagia, early satiety, excessive flatus, fecalincontinence, heartburn, hematemesis, hematochezia, hemorrhoids, loose stools, melena, nausea, odynophagia, rectal bleeding, tenesmus, vomiting or weight changes Physical Exam Const alert, oriented x3, no apparent distress and healthy appearing General Appearance: cooperative GI normal to inspection, nondistended, normoactive bowel sounds, soft to palpation,non-tender and non-distended Percussion: normal to percussion Rectal Exam: deferred Lab / Micro Data 06/01/25 09:34 06/01/25 04:58 Labs: Laboratory Results - last 24 hr 05/31/25 15:57: Hgb 7.3 L, Sodium 109 L* 05/31/25 18:01: Blood Type A POSITIVE, ABO/Rh Cancelled, A1 Subgroup Cancelled, Rho(D) Tech Interpret Cancelled, Antibody Screen NEGATIVE, Crossmatch See Detail 05/31/25 21:48: Sodium 109 L* 06/01/25 00:09: Hgb 6.6 L 06/01/25 04:58: WBC 8.6, RBC 2.70 L, Hgb 8.0 L, Hct 21.6 L, MCV 80.0 L, MCH 29.6, MCHC 37.0 H, RDW Std Deviation 38.1, RDW Coeff of Cathleen 13.3, Plt Count 178,MPV 10.0, Immature Gran % (Auto) 0.900, Neut % (Auto) 72.0 H, Lymph % (Auto) 14.4 L, Windsor % (Auto) 11.4 H, Eos % (Auto) 0.9, Baso % (Auto) 0.4, Absolute Neuts (auto) 6.2, Absolute Lymphs (auto) 1.23, Nucleated RBC % 0, Sodium 109 L*,Potassium 3.8, Chloride 77 L, Carbon Dioxide 20.6 L, Anion Gap 11, BUN 21 H, Creatinine 0.96, Estim Creat Clear Calc 39.95 L, Est GFR (MDRD) Non-Af 61, BUN/Creatinine Ratio 21.7 H, Glucose 88, Calcium 8.3, Phosphorus 2.8, Magnesium 1.7, Total Bilirubin 0.95, AST 27, ALT 16, Alkaline Phosphatase 59, Total Protein 5.1 L, Albumin 3.4, Globulin 1.6 L, Albumin/Globulin Ratio 2.1 06/01/25 09:34: Hgb 7.9 L 06/01/25 11:13: Ur Random Sodium 23 Imaging Radiology Impression Echocardiogram 05/29/25 16:58 Interpretation Summary Normal LV size. Left ventricular systolic function is normal. The left ventricular ejection fraction is 65 %. Moderate (2+) eccentric mitral valve insufficiency. Pulmonary artery systolic pressure is 52 mmHg. Moderate pulmonary hypertension. Ordering Physician: Conchita Burns Referring Physician: Glenny Luque Performed By: Evelyn Darby, MARISSA Assessment & Plan Assessment/Plan (1) GI bleed: (2) Acute anemia: PLAN: She will undergo an upper endoscopy. She was explained alternatives, risk, benefits include not withstanding bleeding, infection, sepsis, perforation, need for emergent surgery and . She will have an ASA of 3. Charges/Coding Visit Charges Inpatient E&M: 00845 Init Hosp L2 06/01/25 1535 <Electronically signed by Juan Manuel Valdovinos DO> Cosigner Signature (if applicable): CC: Dr. Glenny Luque MD~ Signed [facility] Work Phone: 1(149) 795-191207-29-2025 Consult note Author Jaspreet Fraire [facility] Note Date/Time June 01, 2025 2:36 pm [facility] Medical Records Department [address] [place] [address] Pre-Anesthesia Evaluation 06/01/25 1421 MR#: [id number] Acct: [id number] Name: ALVARADO COHEN Rep #:[id number] : 1945 79 From: Jaspreet Fraire MD PCP: Dr. Glenny Luque MD Status:AD M IN Y Race: C Location: [place] [address] 9-1 ASA Classification* ASA Classification ASA Classification: 3 and E Assessment & Plan Anesthesia* Anesthesia Assessment Anesthesia Assessment: Discussed sedation and/or anesthesia options, risks, benefits, and alternatives with patient/parents/legal guardian/POA. Questions invited. The patient/parents/legal guardian/POA seems to understand and agrees to proceedwith anesthesia plan. Reviewed the physical assessment, medical history, allergy history and patient home medications list prior to surgery/procedure/anesthetic and documented any changes. Performed airway and anesthesia risk assessments. Anesthesia Type Anesthesia Type: MAC Anesthesia Focused Assessment* Temperature: 98.8 F Pulse Rate: 64 Blood Pressure: 170/52 Respiratory Rate: 16 Pulse Ox: 96 Oxygen Delivery Method: Room Air Airway Assessment Mouth opens: >3 cm Mallampati Score: IV Teeth Condition: Chipped/Broken (Patient has a cracked tooth.) and Missing (Patient is missing a couple teeth.) Neck Range of motion (ROM): Limited ROM (Somewhat Decreased) Labs Anesthesia Preop lab: CBC WBC 8.6 K/mm3 (4.4-11.0) 06/01/25 04:58 06/01/25 RBC 2.70 M/mm3 (4.2-5.4) L 06/01/25 04:58 06/01/25 Hgb 7.9 g/dL (12.0-15.0) L 06/01/25 09:34 06/01/25 Hct 21.6 % (37-47) L 06/01/25 04:58 06/01/25 Plt Count 178 K/mm3 (150-450) 06/01/25 04:58 06/01/25 CHEMISTRY Potassium 3.8 mmol/L (3.3-5.1) 06/01/25 04:58 06/01/25 Sodium 109 mmol/L (133-145) L* 06/01/25 04:58 5 Magnesium 1.7 mg/dL (1.5-2.2) 06/01/25 04:58 06/01/25 Phosphorus 2.8 mg/dL (2.7-4.5) 06/01/25 04:58 06/01/25 BUN 21 mg/dL (4-19) H 06/01/25 04:58 06/01/25 Creatinine 0.96 mg/dL (0.70-1.20) 06/01/25 04:58 06/01/25 Glucose 88 mg/dL (70-99) 06/01/25 04:58 06/01/25 TSH 0.701 uIU/mL (0.300-4.200) 05/29/25 15:18 07/04/28 COAG Pre-Assessment Diagnosis/Proposed Procedure Planned Operative Procedure(s): Esophagogastroduodenoscopy with control of bleeding and possible biopsies. Anesthesia History Anesthesia History - supportive employment case manager: Anesthesia History - supportive employment case manager Hx Hospitalization Any Problems With Anesthesia Cholinesterase deficiency You/Your Family Experience fever (hyperthermia) with Relationship Recent Exposure to Contagious Disease Does patient have nerve stimulator Patient instructed to have device shut off --Does patient have Pacemaker No 06/01/25 13:34 or ICD? When Was Last Pacemaker Check QUESTION #4 FULL TEXT: You/Your Family Experience fever (hyperthermia) with Anesthesia Last Oral Intake Last Oral intake: Last Oral Intake NPO since 07:00 06/01/25 13:34 Meds taken in AM with sips of Yes 06/01/25 13:34 water? Meds patient instructed to take am of surgery PONV PONV - supportive employment case manager: PONV - supportive employment case manager Female HX of Motion Sickness HX of N/V After Surgery Non-Smoker Duration of Surgery greater than 60 minutes Number of Risk Factors PONV Score Height & Weight Height & Weight: Anesthesia: Height & Weight Height 5 ft 3 in 06/01/25 13:34 Weight: 55.338 kg 06/01/25 13:34 Body Mass Index (BMI) 21.6 06/01/25 13:34 Respiratory Assessment Respiratory Assessment - supportive employment case manager: Respiratory Tract Infection Hx - supportive employment case manager Hx Respiratory Tract Infection Any additional information?: Yes Hx Respiratory Tract Infection: No STOP Sleep Apnea STOP Sleep Apnea - supportive employment case manager: STOP Sleep Apnea - supportive employment case manager Hx Hypertension Yes 05/30/25 10:12 Hx Sleep Apnea No 05/29/25 17:13 CPAP BIPAP Do you snore loudly (louder No 05/29/25 17:13 than talking or can be heard Do you often feel tired/ No 05/29/25 17:13 fatigued/ sleepy during daytime? Has anyone observed you stop No 05/29/25 17:13 breathing during sleep? STOP Results Negative 05/29/25 17:13 QUESTION #5 FULL TEXT : Do you snore loudly (louder than talking or can be heard through closed doors)? Tobacco Use History Tobacco Use History - supportive employment case manager: Tobacco Use History - supportive employment case manager Tobacco Use Smoking Status Light Smoker (<10/day) 05/30/25 15:03 Hx Tobacco Use Yes 05/29/25 17:13 Years Smoking 50 05/29/25 17:13 Packs Smoked per Day Smoking Cessation Date was within the last 15 years Hx Smoking Cessation Date Hx Smoking Cessation No 05/29/25 17:13 Counseling Hematologic Medial History Hematologic Hx - supportive employment case manager: Hematologic Medical Hx - documentation spec Hx of Blood Transfusion No 05/29/25 17:13 Hx of Transfusion in last 3 No 05/29/25 17:13 Months Date of Last Transfusion (if within last 3 months) Ever experience any problems No 05/29/25 17:13 with transfusion(s)? Specify any problems Hx of Preganancy in last 3 No 05/29/25 17:13 Months Nurse Filling Out Transfusion CGERBER 05/29/25 17:13 & Questions: Date: 05/29/25 05/29/25 17:13 Time: 17:20 05/29/25 17:13 Patient unable to answer at this time (ie. confused, unrespo /Reproduction History /Reproductive History - supportive employment case manager: /Reproductive Hx- supportive employment case manager Hx Now Gestational Age (in weeks): EDC: Hx Hx Para Hx Section SAB Active Medications Active Medications: Current Medications Generic Name Dose Route Start Last Admin Trade Name Freq PRN Reason Stop Dose Admin Acetaminophen 650 mg 05/29/25 16:58 Acetaminophen 325 Mg Tablet PO Q6H PRN PRN Pain 1-10 Or Fever >100.7 Albuterol Sulfate 2.5 mg 05/29/25 16:58 Albuterol 2.5 Mg/3 Ml Vial.Neb. INHALATION Q2H PRN PRN SOB &/OR WHEEZING Amlodipine Besylate 10 mg 05/30/25 10:00 06/01/25 09:25 Amlodipine 10 Mg Tablet PO 10 mg DAILY BOB Administration Protocol Enoxaparin Sodium 40 mg 05/30/25 10:00 05/31/25 08:21 Enoxaparin 40 Mg/0.4 Ml Syringe SC 40 mg DAILY BOB Administration Hydralazine HCl 100 mg 05/29/25 22:00 06/01/25 05:46 Hydralazine 50 Mg Tablet PO 100 mg TID BOB Administration Protocol Hydralazine HCl 10 mg 05/29/25 21:47 05/31/25 11:30 Hydralazine 20 Mg/Ml Vial IV 10 mg Q4H PRN PRN Administration SBP GREATER THAN 180 Protocol Sodium Chloride 250 mls @ 15 mls/hr 05/29/25 17:17 IV .[id number] PRN Saline Flush Sodium Chloride 250 mls @ 15 mls/hr 05/29/25 17:17 IV .[id number] PRN Additional IVPB Infusion Pantoprazole Sodium 80 mg/ 100 mls @ 10 mls/hr 06/01/25 08:15 06/01/25 09:16 Sodium Chloride CONT INF 10 mls/hr Q10H BOB Administration Lactated Ringer's 1,000 mls @ 15 mls/hr 06/01/25 14:00 IV .Q48H [facility] Isosorbide Dinitrate 40 mg 05/31/25 14:00 06/01/25 05:46 Isosorbide Dn 20 Mg Tablet PO 40 mg TID BOB Administration Protocol Lisinopril 30 mg 05/29/25 22:00 06/01/25 09:25 Lisinopril 10 Mg Tablet PO 30 mg BID BOB Administration Magnesium Chloride 128 mg 05/30/25 10:00 06/01/25 10:47 Magnesium Chloride 64 Mg Delay Rel.Tablet PO 06/02/25 10:01 Not Given BID [facility] Melatonin 10 mg 05/29/25 16:58 05/30/25 00:57 Melatonin 10 Mg Tablet PO 10 mg QHS PRN PRN Administration INSOMNIA Metoprolol Succinate 50 mg 05/29/25 22:00 06/01/25 09:25 Metoprolol(Xl)Succ 50 Mg Tablet PO 50 mg BID BOB Administration Protocol Minoxidil 5 mg 06/02/25 10:00 Minoxidil 2.5 Mg Tablet PO DAILY [facility] Protocol Minoxidil 5 mg 06/01/25 14:30 Minoxidil 2.5 Mg Tablet PO 06/01/25 14:31 X1 ONE Protocol Nicotine 14 mg 05/29/25 16:58 05/30/25 08:40 Nicotine 14 Mg Patch TD 14 mg DAILY PRN PRN Administration Nicotine craving Potassium Chloride 40 meq 05/31/25 08:00 06/01/25 10:47 Potassium Chloride Oral Tablet 20 Meq PO 06/01/25 23:59 Not Given DAILYCM BOB Senna/Docusate Sodium 2 tablet 05/29/25 16:58 05/30/25 08:36 Senna/Docusate Sodium 1 Tablet PO 2 tablet BID PRN PRN Administration Constipation Sodium Chloride 10 - 40 ml 05/29/25 17:17 05/31/25 05:07 0.9% Saline Lock 10 Ml Syringe IV 20 ml UD PRN Administration SALINE FLUSH [facility] Medical History Renal artery stenosis HTN (hypertension) Home Medications ?Medication ?Instructions ?Recorded ?Last Taken ?Type amlodipine 10 mg tablet 10 mg PO DAILY 03/21/2305/05 History chlorthalidone 25 mg tablet 25 mg PO QDAY 08/27/24 History metoprolol succinate 50 mg 50 mg PO BID 08/27/2405/29 History tablet,extended release 24 hr hydralazine 25 mg tablet 25 mg PO BID high blood pres sure 10/06/24 05/29/25 History lisinopril 30 mg tablet 30 mg PO BID High blood pres sure 10/06/24 05/29/25 History Allergy/AdvReac Type Severity Reaction Status Date / Time codeine Allergy PT UNSURE Verified 05/29/25 12:50 OF REACTION Sulfa (Sulfonamide Allergy Rash Verified 05/29/25 12:50 Antibiotics) (sulfa drugs) Family History Other Asthma Cancer Hypertension Surgical History H/O cone biopsy of cervix (~1977) Social History Smoking Status: Light Smoker (<10/day) Tobacco: How many years used: 40 quit status: considering quitting Review of Systems (Anesthesia) ROS Narrative System reviewed and no additional complaints, except as documented. 06/01/25 4204 <Electronically signed by Jaspreet ma MD> Date _ Jaspreet Gallego Signature: Date CC: ~ Signed [facility] Work Phone: 1(166) 801-201707-29-2025 Procedure note [facility] Medical Records Department [address] [place] [address] EGD Report MR#: [id number] Acct: [id number] Name: ALVARADO COHEN Rep #:[id number] : 1945 79 From: Juan Manuel Valdovinos DO PCP: Dr. Glenny Luque MD Status:AD M IN Patient Name: Alvarado Cohen Procedure Date: 06/01/2025 3:41 PM Date of : 1945 Age: 79 Procedure: Upper GI endoscopy Indications: Iron deficiency anemia, Melena, Recent gastrointestinal bleeding Providers: Juan Manuel Valdovinos DO Medicines: Monitored Anesthesia Care Patient Profile: This is a 79 year old female. Refer to note in patient chart for documentation of history and physical. Patient has symptoms. Complications: No immediate complications. Procedure: Pre-Anesthesia Assessment: - Prior to the procedure, a History and Physical was performed, and patient medications and allergies were reviewed. The patient is competent. The risks and benefits of the procedure and the sedation options and risks were discussed with the patient. All questions were answered and informed consent was obtained. Patient identification and proposed procedure were verified by the physician in the pre-procedure area. Mental Status Examination: alert and oriented. Airway Examination: normal oropharyngeal airway and neck mobility. Respiratory Examination: clear to auscultation. CV Examination: normal. Prophylactic Antibiotics: The patient does not require prophylactic antibiotics. Prior Anticoagulants: The patient has taken no anticoagulant or antiplatelet agents except for NSAID medication. ASA Grade Assessment: II - A patient with mild systemic disease. After reviewing the risks and benefits, the patient was deemed in satisfactory condition to undergo the procedure. The anesthesia plan was to use monitored anesthesia care (MAC). Immediately prior to administration of medications, the patient was re-assessed for adequacy to receive sedatives. The heart rate, respiratory rate, oxygen saturations, blood pressure, adequacy of pulmonary ventilation, and response to care were monitored throughout the procedure. The physical status of the patient was re-assessed after the procedure. After obtaining informed consent, the endoscope was passed under direct vision. Throughout the procedure, the patient's blood pressure, pulse, and oxygen saturations were monitored continuously. The Endoscope was introduced through the mouth, and advanced to the jejunum. Small bowel enteroscopy was deemed necessary. The upper GI endoscopy was accomplished without difficulty. The patient tolerated the procedure well. Scope In: 4:08:47 PM Scope Out: 4:14:29 PM Total Procedure Duration Time 0 hours 5 minutes 42 seconds Findings: No gross lesions were noted in the entire examined stomach. Many oozing linear duodenal ulcers with no stigmata of bleeding were found in the duodenal bulb and in the first portion of the duodenum. The largest lesion was 3 mm in largest dimension. Biopsies were taken with a cold forceps for histology. Verification of patient identification for the specimen was done. Estimated blood loss was minimal. Multiple 4 mm angiodysplastic lesions with bleeding were found in the first portion of the duodenum, in the second portion of the duodenum, in the third portion of the duodenum and in the fourth portion of the duodenum. Coagulation for hemostasis using heater probe was successful. Estimated blood loss was minimal. A few 3 mm angiodysplastic lesions without bleeding were found in the jejunum. Coagulation for destruction of remaining portion of lesion using heater probe was successful. Estimated blood loss was minimal. Non-severe esophagitis with no bleeding was found 37 to 40 cm from the incisors. Impression: - Normal esophagus. - No gross lesions in the entire stomach. - Oozing duodenal ulcers with no stigmata of bleeding. Biopsied. 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 Treated with a heater probe. - A few non-bleeding angiodysplastic lesions in the jejunum. Treated with a heater probe. Recommendation: - Return patient to [facility] for [facility] care. - Resume regular diet today. - Continue present medications. - The patient is not currently taking anticoagulant or antiplatelet agents except for aspirin and NSAID medication. - Await pathology results. - Repeat upper endoscopy in 4 months for surveillance. - Outpatient capsule endoscopy Procedure Code(s): --- Professional --- 05521, 59, Small intestinal endoscopy, enteroscopy beyond second portion of duodenum, not including ileum; with control of bleeding (eg, injection, bipolar cautery, unipolar cautery, laser, heater probe, stapler, plasma seasonal package handler) 21354, 51, Small intestinal endoscopy, enteroscopy beyond second portion of duodenum, not including ileum; with biopsy, single or multiple CPT copyright 2021 [employer]. All rights reserved. The codes documented in this report are preliminary and upon supervisor travel trailer review may be revised to meet current compliance requirements. Juan Manuel Valdovinos DO 06/01/2025 4:28:05 PM This report has been signed electronically. Number of Addenda: 0 Note Initiated On: 06/01/2025 3:41 PM 06/01/25 1628 Date _ Juan Manuel Valdovinos DO Cosigner Signature: Date (if indicated) CC: Dr. Glenny Luque MD; Juan Manuel Valdovinos DO ~ Date Dictated: 06/01/25 1541 Date Transcribed: Accounts Payable Clerk: RF Signed [facility]07-29-2025 Procedure note [facility] Medical Records Department [address] [place] [address] Provation Physician Letter MR#: [id number] Acct: [id number] Name: ALVARADO COHEN CALLI Rep #:[id number] : 1945 79 From: Juan Manuel Valdovinos DO PCP: Dr. Glenny Luque MD Status:AD M IN 06/01/2025 Glenny Luque [address] [place] [address] Re : Upper GI endoscopy procedure for Alvarado Cohen Dear Dr. Luque This procedure was performed on Sunday, June 01, 2025. My impressions and recommendations are as follows: Impressions : - Normal esophagus. - No gross lesions in the entire stomach. - Oozing duodenal ulcers with no stigmata of bleeding. Biopsied. 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 Treated with a heater probe. - A few non-bleeding angiodysplastic lesions in the jejunum. Treated with a heater probe. Recommendations : - Return patient to [facility] for ongoing care. - Resume regular diet today. - Continue present medications. - The patient is not currently taking anticoagulant or antiplatelet agents except for aspirin and NSAID medication. - Await pathology results. - Repeat upper endoscopy in 4 months for surveillance. - Outpatient capsule endoscopy My findings are described in the full procedure note, which is enclosed. If I can be of further assistance, please feel free to contact me at . Sincerely, Juan Manuel Valdovinos DO 06/01/2025 4:28:05 PM This report has been signed electronically. 06/01/25 162 Date _ Juan Manuel Valdovinos DO Cosigner Signature: Date (if indicated) CC: Dr. Nora Govea DO; Dr. Porfirio Mei MD; Dr. Tiffanie Govea DO; Dr. Glenny Luque MD; Dr. Glenny Wetzel DO; Dr. Conchita Burns MD ~ Date Dictated: 06/01/25 1541 Date Transcribed: Accounts Payable Clerk: RF Signed [facility]07-29-2025 Progress note Author Tiffanie Govea [facility] Note Date/Time June 01, 2025 2:25 pm [facility] Medical Records Department [address] [place] [address] Progress Note - Hospitalist 06/01/25 0813 MR#: [id number] Acct: [id number] Name: NOELALVARADO CALLI Rep #:[id number] : 1945 79 From: Tiffanie Govea DO PCP: Dr. Glenny Luque MD Status:AD M IN [facility] Reason for Visit Chief Complaint: Weakness, lightheadedness, generally feeling unwell Subjective Subjective Patient denies any specific complaints at this time. States she still feels generally weak. Has not yet been out of bed today. Hemoglobin dropped to 6.6 so she did receive 1 unit packed red blood cells which improved her hemoglobin to about 8. Plans are for EGD later today. Patient is NPO. 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 and needs fluid restriction Objective Data Objective Data Vital Signs: Vital Signs Temp Pulse Resp BP Pulse Ox O2 Del Method 97.3 F L 66 18 180/50 H 96 Room Air 06/01/25 03:46 06/01/25 05:46 06/01/25 03:46 06/01/25 05:45 06/01/25 03:46 06/01/25 03:46 Oxygen Delivery Method Room Air Weight: 57.6 kg Body Mass Index (BMI) 22.4 Intake & Output: Intake and Output for Last 24 Hours 05/30/25 05/31/25 06/01/25 23:59 23:59 23:59 Intake Total 1000 / 1000 1050 / 1050 568.75 / 568.75 Output Total 300 / 300 300 / 300 Balance 700 / 700 750 / 750 568.75 / 568.75 Lab / Micro Data 06/01/25 09:34 06/01/25 04:58 Labs: Laboratory Results - last 24 hr 05/31/25 09:00: WBC 7.8, RBC 2.62 L, Hgb 7.5 L, Hct 20.9 L, MCV 79.8 L, MCH 28.6, MCHC 35.8, RDW Std Deviation 37.2, RDW Coeff of Cathleen 13.0, Plt Count 211, MPV 9.8, Immature Gran % (Auto) 0.800, Neut % (Auto) 75.3 H, Lymph % (Auto) 12.5L, [place] % (Auto) 10.2 H, Eos % (Auto) 0.9, Baso % (Auto) 0.3, Absolute Neuts (auto) 5.9, Absolute Lymphs (auto) 0.98, Nucleated RBC % 0, Immature Plt Fraction 7.8, Retic Count 3.16 H, Immature Retic Fraction 5.70, Retic Hgb Equivalent 33.9, Sodium Cancelled 05/31/25 09:00: Sodium 110 L*, Potassium 3.3, Chloride 77 L, Carbon Dioxide 21.5, Anion Gap 12, BUN 18, Creatinine 0.85, Estim Creat Clear Calc 45.12 L, EstGFR (MDRD) Non-Af 71, BUN/Creatinine Ratio 21.1 H, Glucose 122 H, Calcium 8.1, Magnesium 1.8, Iron 66, TIBC 306, Iron Saturation 21.0, Unsaturated IBC 240, Ferritin 48, Total Bilirubin 0.33, Direct Bilirubin 0.17, AST 25, ALT 18, Alkaline Phosphatase 63, Total Protein 5.3 L, Albumin 3.5, Globulin 1.8 L 05/31/25 15:57: Hgb 7.3 L, Sodium 109 L* 05/31/25 18:01: Blood Type A POSITIVE, ABO/Rh Cancelled, A1 Subgroup Cancelled, Rho(D) Tech Interpret Cancelled, Antibody Screen NEGATIVE, Crossmatch See Detail 05/31/25 21:48: Sodium 109 L* 06/01/25 00:09: Hgb 6.6 L 06/01/25 04:58: WBC 8.6, RBC 2.70 L, Hgb 8.0 L, Hct 21.6 L, MCV 80.0 L, MCH 29.6, MCHC 37.0 H, RDW Std Deviation 38.1, RDW Coeff of Cathleen 13.3, Plt Count 178,MPV 10.0, Immature Gran % (Auto) 0.900, Neut % (Auto) 72.0 H, Lymph % (Auto) 14.4 L, [place] % (Auto) 11.4 H, Eos % (Auto) 0.9, Baso % (Auto) 0.4, Absolute Neuts (auto) 6.2, Absolute Lymphs (auto) 1.23, Nucleated RBC % 0, Sodium 109 L*,Potassium 3.8, Chloride 77 L, Carbon Dioxide 20.6 L, Anion Gap 11, BUN 21 H, Creatinine 0.96, Estim Creat Clear Calc 39.95 L, Est GFR (MDRD) Non-Af 61, BUN/Creatinine Ratio 21.7 H, Glucose 88, Calcium 8.3, Phosphorus 2.8, Magnesium 1.7, Total Bilirubin 0.95, AST 27, ALT 16, Alkaline Phosphatase 59, Total Protein 5.1 L, Albumin 3.4, Globulin 1.6 L, Albumin/Globulin Ratio 2.1 Radiography Diagnostic Testing: Radiology Impression Echocardiogram 05/29/25 16:58 Interpretation Summary Normal LV size. Left ventricular systolic function is normal. The left ventricular ejection fraction is 65 %. Moderate (2+) eccentric mitral valve insufficiency. Pulmonary artery systolic pressure is 52 mmHg. Moderate pulmonary hypertension. Ordering Physician: Conchita Burns Referring Physician: Glenny Luque Performed By: Evelyn Darby RDCS Chest CT 05/31/25 09:13 IMPRESSION: Coronary artery calcification (CAC) is is present Underlying emphysema with chronic interstitial changes. There are free-flowing bilateral pleural effusions, [id number] with associated atelectasis and perhaps associated infiltrate in the left lung base. Follow-up recommended to ensure resolution No suspicious noncalcified mass or nodule No suspicious enlarged axillary, mediastinal or perihilar lymph nodes Enlarged thyroid with low-density nodules suggesting goiter Degenerative bony changes Reading Location: [facility] Physical Exam Const alert, oriented x3, no apparent distress, average body habitus and well nourished Constitutional Narrative: Older, white female, sitting up in bed, appears comfortable, nontoxic General Appearance: cooperative HEENT normocephalic, head/scalp atraumatic and moist oral mucous membranes HEENT Narrative: Mallampati 2 Resp normal respiratory effort, no retractions, no use of accessory muscles and clearto auscultation bilaterally Resp Narrative: Remains slightly diminished diffusely bases greater than apices Auscultation: Negative for rales, rhonchi or wheezes Cardio regular rate, regular rhythm, S1 normal heart sound, S2 normal heart sound, no murmurs, no rub and no clicks; Negative for no gallops Cardio Narrative: Positive S4 GI normal to inspection, nondistended, normoactive bowel sounds, soft to palpation and non-tender Extremity no clubbing, cyanosis or edema Extremity Narrative: Patient with bilateral clubbing on hands and nailbeds are white, no cyanosis or edema noted, 1+ pedal pulses, 2+ radial pulses Neuro oriented x3, moves all extremities and no focal motor deficits Speech: speech normal Psych affect normal Psych Narrative: Eye contact is good, patient interacts appropriately, very pleasant Assessment & Plan Assessment/Plan (1) Hypo-osmolar hyponatremia: (2) Hypomagnesemia: (3) Hypokalemia: (4) Renal artery stenosis: (5) Uncontrolled hypertension: (6) Acute anemia: (7) GI bleed: PLAN: Plan Hypoosmolar hyponatremia - TSH within normal limits - Cortisol within normal limits - Further workup pending per nephrology - Continue to hold thiazide diuretic - Sodium this morning was 109 anticipate tolvaptan to be given later today - Nephrology following-appreciate input - CT of the chest was unremarkable for malignancy Uncontrolled hypertension - Chlorthalidone is on hold - Continue home amlodipine - Continue home hydralazine - Continue home lisinopril - Continue home metoprolol - Continue Isordil - Add minoxidil 5 mg daily - Renal duplex per nephrology next-vascular consult per nephrology it does appear that patient has been intervened upon but unsuccessfully-discussed case with Dr. Mei and patient will need referred to tertiary center if vascular intervention is needed - Currently would defer anything based on acute anemia Acute on chronic anemia secondary to suspected GI bleed - Previous labs we have here from October 2024 and on admission show a hemoglobin between 10 and 12 - Hemoglobin dropped to a radha of 6.6 overnight and received 1 unit of packed red blood cells--> now up to 8.0 - Etiology is unclear this time - Iron studies normal but elevated retake count indicating acute bleed -Guaiac ordered but not collected as of yet--> patient states she has had no further bowel movement -Liver functions within normal limits including bilirubin so doubt hemolysis -Given further drop in need for blood transfusion we will discontinue IV Protonix and give a bolus and start on a continuous Protonix drip -GI consultation with likely EGD later today - N.p.o. Troponin elevation - Very mild - Etiology is unclear - Echocardiogram shows normal EF at 65% with moderate mitral valve insufficiencyand pulmonary systolic pressure 52 mmHg with moderate pulmonary hypertension - Will defer further workup if echo is unremarkable for wall motion abnormalities Generalized weakness - PT and OT are following and current recommendation is home with help/home health care History of right renal artery stenosis - Previously unsuccessful stenting - Ultrasound pending per nephrology -Vascular surgery following but will recommend transfer for intervention as she has had failed intervention previously due to complexity of lesion Tobacco abuse - Continue nicotine replacement therapy if needed and desired - Recommend cessation DVT prophylaxis - Discontinue chemoprophylaxis due to GI bleed - Start SCDs CODE STATUS - Full code as verified at the time of admission Charges/Coding Visit Charges Inpatient E&M: 51509 Subs Hosp L2 06/01/25 1421 <Electronically signed by Tiffanie Govea DO> Cosigner Signature (if applicable): CC: ~ Signed [facility] Work Phone: [phone] 602-989307-29-2025 Consult note [facility] Medical Records Department [address] [place] [address] Anesthesia Postop Eval I 06/01/25 1622 MR#: [id number] Acct: [id number] Name: ALVARADO COHEN Rep #:[id number] : 1945 79 From: Narendra Galeano CRNA PCP: Dr. Glenny Luque MD Status:AD M IN Y Race: C Location: [address] Anesthesia: Postop Eval I Current Vital Signs Temperature: 98.9 F Pulse Rate: 60 Blood Pressure: 144/37 Respiratory Rate: 15 Pulse Ox: 97 Oxygen Delivery Method: Room Air Assessment Airway patent: Yes Spontaneous unlabored respirations: Yes Mental status: Asleep nausea: No Vomiting: No Anesthesia Complication: No Fluid Hydration Crystalloid volume administer (ml): 400 Total IV fluid infused: 400 Progress Note Anesthesia document: Postop Eval 1 completed: Yes 06/01/25 1623 n CASING MAN> Date _ Narendra Galeano CRNA Cosigner Signature: Date CC: ~ Signed [facility]07-29-2025 Consult note [facility] Medical Records Department [address] [place] [address] Consultation - GI 06/01/25 1515 MR#: [id number] Acct: [id number] Name: ALVARADO COHEN Rep #:[id number] : 1945 79 From: Juan Manuel Valdovinos DO PCP: Dr. Glenny Luque MD Status:AD M IN Location: [place] [id number] HPI Consult Data Date of Consult: 06/01/25 HPI Narrative Reason for Consultation: Anemia HPI Narrative: ALVARADO COHEN, is a 79-year-old female history of hypertension and renal artery stenosis presented [facility] ED 05/29/2025 with increased shortness of breath, swelling, dizziness and weakness for 4 days. In the ED temp 97.8, heart rate of 68 and blood pressure 185/54, respiratory rate 18 and pulse ox 96% on room air. CBC with white blood cell count of 8.6, hemoglobin 10.2. UA not suggestive of infection, proBNP elevated at 5274 and troponin 20. CMP however revealed a sodium of 106, potassium of 3.5, chloride of 73 and BUN of 21 with a creatinine of 1.06. Glucose 121 and liver profile within normal limits. Sodium low at 106 on admit to 110 today. Last sodium 131 on 04/02/25 from [facility]. She has been on chlorthalidone retirement. Recently startedon doxazosinfor uncontrolled hypertension in May then stopped after intolerance to it with weakness, swelling. I was asked to see her due to decreasing hemoglobin from 10.2 down to 6.6. She does endorse dark stools. [facility] Medical History Renal artery stenosis HTN (hypertension) Home Medications ?Medication ?Instructions ?Recorded ?Last Taken ?Type amlodipine 10 mg tablet 10 mg PO DAILY 03/21/2305/05 History chlorthalidone 25 mg tablet 25 mg PO QDAY 08/27/24 History metoprolol succinate 50 mg 50 mg PO BID 08/27/2405/29 History tablet,extended release 24 hr hydralazine 25 mg tablet 25 mg PO BID high blood pres sure 10/06/24 05/29/25 History lisinopril 30 mg tablet 30 mg PO BID High blood pres sure 10/06/24 05/29/25 History Allergy/AdvReac Type Severity Reaction Status Date / Time codeine Allergy PT UNSURE Verified 05/29/25 12:50 OF REACTION Sulfa (Sulfonamide Allergy Rash Verified 05/29/25 12:50 Antibiotics) (sulfa drugs) Family History Other Asthma Cancer Hypertension Surgical History H/O cone biopsy of cervix (~1977) Social History Smoking Status: Light Smoker (<10/day) Tobacco: How many years used: 40 quit status: considering quitting ROS Constitutional Constitutional: Denies fatigue, fever(s), poor appetite, weight gain or weight loss Gastrointestinal Gastrointestinal: Denies belching, bloating, change in bowel habits, change in stool character, chewing difficulty, coffee ground emesis, constipation, cramping, diarrhea, dyspepsia, dysphagia, earlysatiety, excessive flatus, fecalincontinence, heartburn, hematemesis, hematochezia, hemorrhoids, loose stools, melena, nausea, odynophagia, rectal bleeding, tenesmus, vomiting or weight changes Physical Exam Const alert, oriented x3, no apparent distress and healthy appearing General Appearance: cooperative GI normal to inspection, nondistended, normoactive bowel sounds, soft to palpation,non-tender and non-distended Percussion: normal to percussion Rectal Exam: deferred Lab / Micro Data 06/01/25 09:34 06/01/25 04:58 Labs: Laboratory Results - last 24 hr 05/31/25 15:57: Hgb 7.3 L, Sodium 109 L* 05/31/25 18:01: Blood Type A POSITIVE, ABO/Rh Cancelled, A1 Subgroup Cancelled, Rho(D) Tech Interpret Cancelled, Antibody Screen NEGATIVE, Crossmatch See Detail 05/31/25 21:48: Sodium 109 L* 06/01/25 00:09: Hgb 6.6 L 06/01/25 04:58: WBC 8.6, RBC 2.70 L, Hgb 8.0 L, Hct 21.6 L, MCV 80.0 L, MCH 29.6, MCHC 37.0 H, RDW Std Deviation 38.1, RDW Coeff of Cathleen 13.3, Plt Count 178,MPV 10.0, Immature Gran % (Auto) 0.900, Neut % (Auto) 72.0 H, Lymph % (Auto) 14.4 L, Windsor % (Auto) 11.4 H, Eos % (Auto) 0.9, Baso % (Auto) 0.4,Absolute Neuts (auto) 6.2, Absolute Lymphs (auto) 1.23, Nucleated RBC % 0, Sodium 109 L*,Potassium 3.8, Chloride 77 L, Carbon Dioxide 20.6 L, Anion Gap 11, BUN 21 H, Creatinine 0.96, Estim Creat Clear Calc 39.95 L, Est GFR (MDRD) Non-Af 61, BUN/Creatinine Ratio 21.7 H, Glucose 88, Calcium 8.3, Phosphorus 2.8, Magnesium 1.7, Total Bilirubin 0.95, AST 27, ALT 16, Alkaline Phosphatase 59, Total Prote in 5.1 L, Albumin 3.4, Globulin 1.6 L, Albumin/Globulin Ratio 2.1 06/01/25 09:34: Hgb 7.9 L 06/01/25 11:13: Ur Random Sodium 23 Imaging Radiology Impression Echocardiogram 05/29/25 16:58 Interpretation Summary Normal LV size. Left ventricular systolic function is normal. The left ventricular ejection fraction is 65 %. Moderate (2+) eccentric mitral valve insufficiency. Pulmonary artery systolic pressure is 52 mmHg. Moderate pulmonary hypertension. Ordering Physician: Conchita Burns Referring Physician: Glenny Luque Performed By: Evelyn Darby RDCS Assessment & Plan Assessment/Plan (1) GI bleed: (2) Acute anemia: PLAN: She will undergo an upper endoscopy. She was explained alternatives, risk, benefits include not withstanding bleeding, infection, sepsis, perforation, need for emergent surgery and . She will have an ASA of 3. Charges/Coding Visit Charges Inpatient E&M: 47740 Init Hosp L2 06/01/25 1535 Cosigner Signature (if applicable): CC: Dr. Glenny Luque MD~ Signed [facility]07-29-2025 Consult note [facility] Medical Records Department [address] [place] [address] Pre-Anesthesia Evaluation 06/01/25 1421 MR#: [id number] Acct: [id number] Name: ALVARADO COHEN Rep #:[id number] : 1945 79 From: Jaspreet Fraire MD PCP: Dr. Glenny Luque MD Status:AD M IN Y Race: C Location: [place] [address] ASA Classification* ASA Classification ASA Classification: 3 and E Assessment & Plan Anesthesia* Anesthesia Assessment Anesthesia Assessment: Discussed sedation and/or anesthesia options, risks, benefits, and alternatives with patient/parents/legal guardian/POA. Questions invited. The patient/parents/legal guardian/POA seems to understand and agrees to proceedwith anesthesia plan. Reviewed the physical assessment, medical history, allergy history and patient home medications list prior to surgery/procedure/anesthetic and documented any changes. Performed airway and anesthesia risk assessments. Anesthesia Type Anesthesia Type: MAC Anesthesia Focused Assessment* Temperature: 98.8 F Pulse Rate: 64 Blood Pressure: 170/52 Respiratory Rate: 16 Pulse Ox: 96 Oxygen Delivery Method: Room Air Airway Assessment Mouth opens: >3 cm Mallampati Score: IV Teeth Condition: Chipped/Broken (Patient has a cracked tooth.) and Missing (Patient is missing a couple teeth.) Neck Range of motion (ROM): Limited ROM (Somewhat Decreased) Labs Anesthesia Preop lab: CBC WBC 8.6 K/mm3 (4.4-11.0) 06/01/25 04:58 06/01/25 RBC 2.70 M/mm3 (4.2-5.4) L 06/01/25 04:58 06/01/25 Hgb 7.9 g/dL (12.0-15.0) L 06/01/25 09:34 06/01/25 Hct 21.6 % (37-47) L 06/01/25 04:58 06/01/25 Plt Count 178 K/mm3 (150-450) 06/01/25 04:58 06/01/25 CHEMISTRY Potassium 3.8 mmol/L (3.3-5.1) 06/01/25 04:58 06/01/25 Sodium 109 mmol/L (133-145) L* 06/01/25 04:58 5 Magnesium 1.7 mg/dL (1.5-2.2) 06/01/25 04:58 06/01/25 Phosphorus 2.8 mg/dL (2.7-4.5) 06/01/25 04:58 06/01/25 BUN 21 mg/dL (4-19) H 06/01/25 04:58 06/01/25 Creatinine 0.96 mg/dL (0.70-1.20) 06/01/25 04:58 06/01/25 Glucose 88 mg/dL (70-99) 06/01/25 04:58 06/01/25 TSH 0.701 uIU/mL (0.300-4.200) 05/29/25 15:18 05/05 04/28 COAG Pre-Assessment Diagnosis/Proposed Procedure Planned Operative Procedure(s): Esophagogastroduodenoscopy with control of bleeding and possible biopsies. Anesthesia History Anesthesia History - supportive employment case manager: Anesthesia History - supportive employment case manager Hx Hospitalization Any Problems With Anesthesia Cholinesterase deficiency You/Your Family Experience fever (hyperthermia) with Relationship Recent Exposure to Contagious Disease Does patient have nerve stimulator Patient instructed to have device shut off --Does patient have Pacemaker No 06/01/25 13:34 or ICD? When Was Last Pacemaker Check QUESTION #4 FULL TEXT: You/Your Family Experience fever (hyperthermia) with Anesthesia Last Oral Intake Last Oral intake: Last Oral Intake NPO since 07:00 06/01/25 13:34 Meds taken in AM with sips of Yes 06/01/25 13:34 water? Meds patient instructed to take am of surgery PONV PONV - supportive employment case manager: PONV - supportive employment case manager Female HX of Motion Sickness HX of N/V After Surgery Non-Smoker Duration of Surgery greater than 60 minutes Number of Risk Factors PONV Score Height & Weight Height & Weight: Anesthesia: Height & Weight Height 5 ft 3 in 06/01/25 13:34 Weight: 55.338 kg 06/01/25 13:34 Body Mass Index (BMI) 21.6 06/01/25 13:34 Respiratory Assessment Respiratory Assessment - supportive employment case manager: Respiratory Tract Infection Hx - supportive employment case manager Hx Respiratory Tract Infection Any additional information?: Yes Hx Respiratory Tract Infection: No STOP Sleep Apnea STOP Sleep Apnea - supportive employment case manager: STOP Sleep Apnea - supportive employment case manager Hx Hypertension Yes 05/30/25 10:12 Hx Sleep Apnea No 05/29/25 17:13 CPAP BIPAP Do you snore loudly (louder No 05/29/25 17:13 than talking or can be heard Do you often feel tired/ No 05/29/25 17:13 fatigued/ sleepy during daytime? Has anyone observed you stop No 05/29/25 17:13 breathing during sleep? STOP Results Negative 05/29/25 17:13 QUESTION #5 FULL TEXT : Do you snore loudly (louder than talking or can be heard through closeddoors)? Tobacco Use History Tobacco Use History - supportive employment case manager: Tobacco Use History - supportive employment case manager Tobacco Use Smoking Status Light Smoker (<10/day) 05/30/25 15:03 Hx Tobacco Use Yes 05/29/25 17:13 Years Smoking 50 05/29/25 17:13 Packs Smoked per Day Smoking Cessation Date was within the last 15 years Hx Smoking Cessation Date Hx Smoking Cessation No 05/29/25 17:13 Counseling Hematologic Medial History Hematologic Hx - supportive employment case manager: Hematologic Medical Hx - documentation spec Hx of Blood Transfusion No 05/29/25 17:13 Hx of Transfusion in last 3 No 05/29/25 17:13 Months Date of Last Transfusion (if within last 3 months) Ever experience any problems No 05/29/25 17:13 with transfusion(s)? Specify any problems Hx of Preganancy in last 3 No 05/29/25 17:13 Months Nurse Filling Out Transfusion CGERBER 05/29/25 17:13 & Questions: Date: 05/29/25 05/29/25 17:13 Time: 17:20 05/29/25 17:13 Patient unable to answer at this time (ie. confused, unrespo /Reproduction History /Reproductive History - supportive employment case manager: /Reproductive Hx- supportive employment case manager Hx Now Gestational Age (in weeks): EDC: Hx Hx Para Hx Section SAB Active Medications Active Medications: Current Medications Generic Name Dose Route Start Last Admin Trade Name Freq PRN Reason Stop Dose Admin Acetaminophen 650 mg 05/29/25 16:58 Acetaminophen 325 Mg Tablet PO Q6H PRN PRN Pain 1-10 Or Fever >100.7 Albuterol Sulfate 2.5 mg 05/29/25 16:58 Albuterol 2.5 Mg/3 Ml Vial.Neb. INHALATION Q2H PRN PRN SOB &/OR WHEEZING Amlodipine Besylate 10 mg 05/30/25 10:00 06/01/25 09:25 Amlodipine 10 Mg Tablet PO 10 mg DAILY BOB Administration Protocol Enoxaparin Sodium 40 mg 05/30/25 10:00 05/31/25 08:21 Enoxaparin 40 Mg/0.4 Ml Syringe SC 40 mg DAILY BOB Administration Hydralazine HCl 100 mg 05/29/25 22:00 06/01/25 05:46 Hydralazine 50 Mg Tablet PO 100 mg TID BOB Administration Protocol Hydralazine HCl 10 mg 05/29/25 21:47 05/31/25 11:30 Hydralazine 20 Mg/Ml Vial IV 10 mg Q4H PRN PRN Administration SBP GREATER THAN 180 Protocol Sodium Chloride 250 mls @ 15 mls/hr 05/29/25 17:17 IV .[id number] PRN Saline Flush Sodium Chloride 250 mls @ 15 mls/hr 05/29/25 17:17 IV .[id number] PRN Additional IVPB Infusion Pantoprazole Sodium 80 mg/ 100 mls @ 10 mls/hr 06/01/25 08:15 06/01/25 09:16 Sodium Chloride CONT INF 10 mls/hr Q10H BOB Administration Lactated Ringer's 1,000 mls @ 15 mls/hr 06/01/25 14:00 IV .Q48H BOB Isosorbide Dinitrate 40 mg 05/31/25 14:00 06/01/25 05:46 Isosorbide Dn 20 Mg Tablet PO 40 mg TID BOB Administration Protocol Lisinopril 30 mg 05/29/25 22:00 06/01/25 09:25 Lisinopril 10 Mg Tablet PO 30 mg BID BOB Administration Magnesium Chloride 128 mg 05/30/25 10:00 06/01/25 10:47 Magnesium Chloride 64 Mg Delay Rel.Tablet PO 06/02/25 10:01 Not Given BID BOB Melatonin 10 mg 05/29/25 16:58 05/30/25 00:57 Melatonin 10 Mg Tablet PO 10 mg QHS PRN PRN Administration INSOMNIA Metoprolol Succinate 50 mg 05/29/25 22:00 06/01/25 09:25 Metoprolol(Xl)Succ 50 Mg Tablet PO 50 mg BID BOB Administration Protocol Minoxidil 5 mg 06/02/25 10:00 Minoxidil 2.5 Mg Tablet PO DAILY BOB Protocol Minoxidil 5 mg 06/01/25 14:30 Minoxidil 2.5 Mg Tablet PO 06/01/25 14:31 X1 ONE Protocol Nicotine 14 mg 05/29/25 16:58 05/30/25 08:40 Nicotine 14 Mg Patch TD 14 mg DAILY PRN PRN Administration Nicotine craving Potassium Chloride 40 meq 05/31/25 08:00 06/01/25 10:47 Potassium Chloride Oral Tablet 20 Meq PO 06/01/25 23:59 Not Given DAILYCM BOB Senna/Docusate Sodium 2 tablet 05/29/25 16:58 05/30/25 08:36 Senna/Docusate Sodium 1 Tablet PO 2 tablet BID PRN PRN Administration Constipation Sodium Chloride 10 - 40 ml 05/29/25 17:17 05/31/25 05:07 0.9% Saline Lock 10 Ml Syringe IV 20 ml UD PRN Administration SALINE FLUSH PFSH Medical History Renal artery stenosis HTN (hypertension) Home Medications ?Medication ?Instructions ?Recorded ?Last Taken ?Type amlodipine 10 mg tablet 10 mg PO DAILY 03/21/23 07/04/28 History chlorthalidone 25 mg tablet 25 mg PO QDAY 10/24/24 07/ 26/25 History metoprolol succinate 50 mg 50 mg PO BID 08/27/2405/29 History tablet,extended release 24 hr hydralazine 25 mg tablet 25 mg PO BID high blood pres sure 10/06/24 05/29/25 History lisinopril 30 mg tablet 30 mg PO BID High blood pres sure 10/06/24 05/29/25 History Allergy/AdvReac Type Severity Reaction Status Date / Time codeine Allergy PT UNSURE Verified 05/29/25 12:50 OF REACTION Sulfa (Sulfonamide Allergy Rash Verified 05/29/25 12:50 Antibiotics) (sulfa drugs) Family History Other Asthma Cancer Hypertension Surgical History H/O cone biopsy of cervix (~1977) Social History Smoking Status: Light Smoker (<10/day) Tobacco: How many years used: 40 quit status: considering quitting Review of Systems (Anesthesia) ROS Narrative System reviewed and no additional complaints, except as documented. 06/01/25 1436 francesca RUELAS> Date _ Jaspreet Fraire MD Cosigner Signature: Date CC: ~ Signed [facility]07-29-2025 Progress note [facility] Medical Records Department [address] [place] [address] Progress Note - Hospitalist 06/01/25812 MR#: [id number] Acct: [id number] Name: ALVARADO COHEN CALLI Rep #:[id number] : 1945 79 From: Tiffanie Govea DO PCP: Dr. Glenny Luque MD Status:AD M IN Location: [place] [id number] Reason for Visit Chief Complaint: Weakness, lightheadedness, generally feeling unwell Subjective Subjective Patient denies any specific complaints at this time. States she still feels generally weak. Has notyet been out of bed today. Hemoglobin dropped to 6.6 so she did receive 1 unit packed red blood cells which improved her hemoglobin to about 8. Plans are for EGD later today. Patient is NPO. 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 and needs fluid restriction Objective Data Objective Data Vital Signs: Vital Signs Temp Pulse Resp BP Pulse Ox O2 Del Method 97.3 F L 66 18 180/50 H 96 Room Air 06/01/25 03:46 06/01/25 05:46 06/01/25 03:46 06/01/25 05:45 06/01/25 03:46 06/01/25 03:46 Oxygen Delivery Method Room Air Weight: 57.6 kg Body Mass Index (BMI) 22.4 Intake & Output: Intake and Output for Last 24 Hours 05/30/25 05/31/25 06/01/25 23:59 23:59 23:59 Intake Total 1000 / 1000 1050 / 1050 568.75 / 568.75 Output Total 300 / 300 300 / 300 Balance 700 / 700 750 / 750 568.75 / 568.75 Lab / Micro Data 06/01/25 09:34 06/01/25 04:58 Labs: Laboratory Results - last 24 hr 05/31/25 09:00: WBC 7.8, RBC 2.62 L, Hgb 7.5 L, Hct 20.9 L, MCV 79.8 L, MCH 28.6, MCHC 35.8, RDW Std Deviation 37.2, RDW Coeff of Cathleen 13.0, Plt Count 211, MPV 9.8, Immature Gran % (Auto) 0.800, Neut % (Auto) 75.3 H, Lymph % (Auto) 12.5L, [place] % (Auto) 10.2 H, Eos % (Auto) 0.9, Baso % (Auto) 0.3, Absolute Neuts (auto) 5.9, Absolute Lymphs (auto) 0.98, Nucleated RBC % 0, Immature Plt Fraction 7.8, Retic Count 3.16 H, Immature Retic Fraction 5.70, Retic Hgb Equivalent 33.9, Sodium Cancelled 05/31/25 09:00: Sodium 110 L*, Potassium 3.3, Chloride 77 L, Carbon Dioxide 21.5, Anion Gap 12, BUN18, Creatinine 0.85, Estim Creat Clear Calc 45.12 L, EstGFR (MDRD) Non-Af 71, BUN/Creatinine Ratio 21.1 H, Glucose 122 H, Calcium 8.1, Magnesium 1.8, Iron 66, TIBC 306, Iron Saturation 21.0, Unsaturated IBC 240, Ferritin 48, Total Bilirubin 0.33, Direct Bilirubin 0.17, AST 25, ALT 18, Alkaline Phosphatase 63, Total Protein 5.3 L, Albumin 3.5, Globulin 1.8 L 05/31/25 15:57: Hgb 7.3 L, Sodium 109 L* 05/31/25 18:01: Blood Type A POSITIVE, ABO/Rh Cancelled, A1 Subgroup Cancelled, Rho(D) Tech Interpret Cancelled, Antibody Screen NEGATIVE, Crossmatch See Detail 05/31/25 21:48: Sodium 109 L* 06/01/25 00:09: Hgb 6.6 L 06/01/25 04:58: WBC 8.6, RBC 2.70 L, Hgb 8.0 L, Hct 21.6 L, MCV 80.0 L, MCH 29.6, MCHC 37.0 H, RDW Std Deviation 38.1, RDW Coeff of Cathleen 13.3, Plt Count 178,MPV 10.0, Immature Gran % (Auto) 0.900, Neut % (Auto) 72.0 H, Lymph % (Auto) 14.4 L, [place] % (Auto) 11.4 H, Eos % (Auto) 0.9, Baso % (Auto) 0.4,Absolute Neuts (auto) 6.2, Absolute Lymphs (auto) 1.23, Nucleated RBC % 0, Sodium 109 L*,Potassium 3.8, Chloride 77 L, Carbon Dioxide 20.6 L, Anion Gap 11, BUN 21 H, Creatinine 0.96, Estim Creat Clear Calc 39.95 L, Est GFR (MDRD) Non-Af 61, BUN/Creatinine Ratio 21.7 H, Glucose 88, Calcium 8.3, Phosphorus 2.8, Magnesium 1.7, Total Bilirubin 0.95, AST 27, ALT 16, Alkaline Phosphatase 59, Total Prote in 5.1 L, Albumin 3.4, Globulin 1.6 L, Albumin/Globulin Ratio 2.1 Radiography Diagnostic Testing: Radiology Impression Echocardiogram 05/29/25 16:58 Interpretation Summary Normal LV size. Left ventricular systolic function is normal. The left ventricular ejection fraction is 65 %. Moderate (2+) eccentric mitral valve insufficiency. Pulmonary artery systolic pressure is 52 mmHg. Moderate pulmonary hypertension. Ordering Physician: Conchita Burns Referring Physician: Glenny Luque Performed By: Evelyn Darby RDCS Chest CT 05/31/25 09:13 IMPRESSION: Coronary artery calcification (CAC) is is present Underlying emphysema with chronic interstitial changes. There are free-flowing bilateral pleural effusions, [id number] with associated atelectasis and perhaps associated infiltrate in the left lung base. Follow-up recommended to ensure resolution No suspicious noncalcified mass or nodule No suspicious enlarged axillary, mediastinal or perihilar lymph nodes Enlarged thyroid with low-density nodules suggesting goiter Degenerative bony changes Reading Location: [facility] Physical Exam Const alert, oriented x3, no apparent distress, average body habitus and well nourished Constitutional Narrative: Older, white female, sitting up in bed, appears comfortable, nontoxic General Appearance: cooperative HEENT normocephalic, head/scalp atraumatic and moist oral mucous membranes HEENT Narrative: Mallampati 2 Resp normal respiratory effort, no retractions, no use of accessory muscles and clearto auscultation bilaterally Resp Narrative: Remains slightly diminished diffusely bases greater than apices Auscultation: Negative for rales, rhonchi or wheezes Cardio regular rate, regular rhythm, S1 normal heart sound, S2 normal heart sound, no murmurs, no rub and no clicks; Negative for no gallops Cardio Narrative: Positive S4 GI normal to inspection, nondistended, normoactive bowel sounds, soft to palpation and non-tender Extremity no clubbing, cyanosis or edema Extremity Narrative: Patient with bilateral clubbing on hands and nailbeds are white, no cyanosis or edema noted, 1+ pedal pulses, 2+ radial pulses Neuro oriented x3, moves all extremities and no focal motor deficits Speech: speech normal Psych affect normal Psych Narrative: Eye contact is good, patient interacts appropriately, very pleasant Assessment & Plan Assessment/Plan (1) Hypo-osmolar hyponatremia: (2) Hypomagnesemia: (3) Hypokalemia: (4) Renal artery stenosis: (5) Uncontrolled hypertension: (6) Acute anemia: (7) GI bleed: PLAN: Plan Hypoosmolar hyponatremia - TSH within normal limits - Cortisol within normal limits - Further workup pending per nephrology - Continue to hold thiazide diuretic - Sodium this morning was 109 anticipate tolvaptan to be given later today - Nephrology following-appreciate input - CT of the chest was unremarkable for malignancy Uncontrolled hypertension - Chlorthalidone is on hold - Continue home amlodipine - Continue home hydralazine - Continue home lisinopril - Continue home metoprolol - Continue Isordil - Add minoxidil 5 mg daily - Renal duplex per nephrology next-vascular consult per nephrology it does appear that patient has been intervened upon but unsuccessfully-discussed case with Dr. Mei and patient will need referred to tertiary center if vascular intervention is needed - Currently would defer anything based on acute anemia Acute on chronic anemia secondary to suspected GI bleed - Previous labs we have here from October 2024 and on admission show a hemoglobin between 10 and 12 - Hemoglobin dropped to a radha of 6.6 overnight and received 1 unit of packed red blood cells--> now up to 8.0 - Etiology is unclear this time - Iron studies normal but elevated retake count indicating acute bleed -Guaiac ordered but not collected as of yet--> patient states she has had no further bowel movement -Liver functions within normal limits including bilirubin so doubt hemolysis -Given further drop in need for blood transfusion we will discontinue IV Protonix and give a bolus and start on a continuous Protonix drip -GI consultation with likely EGD later today - N.p.o. Troponin elevation - Very mild - Etiology is unclear - Echocardiogram shows normal EF at 65% with moderate mitral valve insufficiencyand pulmonary systolic pressure 52 mmHg with moderate pulmonary hypertension - Will defer further workup if echo is unremarkable for wall motion abnormalities Generalized weakness - PT and OT are following and current recommendation is home with help/home health care History of right renal artery stenosis - Previously unsuccessful stenting - Ultrasound pending per nephrology -Vascular surgery following but will recommend transfer for intervention as she has had failed intervention previously due to complexity of lesion Tobacco abuse - Continue nicotine replacement therapy if needed and desired - Recommend cessation DVT prophylaxis - Discontinue chemoprophylaxis due to GI bleed - Start SCDs CODE STATUS - Full code as verified at the time of admission Charges/Coding Visit Charges Inpatient E&M: 22838 Subs Hosp L2 06/01/25 1425 Cosigner Signature (if applicable): CC: ~ Signed [facility]07-29-2025 Progress note Author Nora Govea [facility] Note Date/Time June 01, 2025 7:11 am [facility] Medical Records Department [address] [facility] [place] [address] Progress Note - Nephrology 05/31/25 1125 MR#: [id number] Acct: [id number] Name: ALVARADO COHEN Rep #:[id number] : 1945 79 From: Nora Pettit PCP: Dr. Glenny Luque MD Status:AD M IN Location: [place] [address] Subjective Subjective complains of weakness, unsteady gait. Denied nausea but has anorexia. Sodium lowat 106 on admit to 110 today. Last sodium 131 on 04/02/25 from [facility]. She has been on chlorthalidone retirement. Recently started on doxazosin for uncontrolled hypertension in May then stopped after intolerance to it with weakness, swelling. BP remains elevated despite titration of hydralazine. Right renal artery stenosis on duplex from 2023. Will repeat and consult vascular. Objective Data Objective Data Vital Signs: Vital Signs Temp Pulse Resp BP Pulse Ox O2 Del Method 98.6 F 60 11 L 185/50 H 96 Room Air 05/31/25 08:14 05/31/25 08:21 05/31/25 08:14 05/31/25 08:14 05/31/25 08:14 05/31/25 08:30 Oxygen Delivery Method Room Air Weight: 56.4 kg Body Mass Index (BMI) 22.0 Intake & Output: Intake and Output for Last 24 Hours 05/29/25 05/30/25 05/31/25 23:59 23:59 23:59 Intake Total 649.35 / 649.35 1000 / 1000 350 / 350 Output Total 350 / 350 300 / 300 300 / 300 Balance 299.35 / 299.35 700 / 700 50 / 50 Lab / Micro Data 05/31/25 09:00 05/31/25 09:00 Labs: Laboratory Results - last 24 hr 05/30/25 15:10: Sodium 110 L* 05/30/25 20:45: Sodium 109 L* 05/31/25 02:45: Sodium 110 L* 05/31/25 09:00: WBC 7.8, RBC 2.62 L, Hgb 7.5 L, Hct 20.9 L, MCV 79.8 L, MCH 28.6, MCHC 35.8, RDW Std Deviation 37.2, RDW Coeff of Cathleen 13.0, Plt Count 211, MPV 9.8, Immature Gran % (Auto) 0.800, Neut % (Auto) 75.3 H, Lymph % (Auto) 12.5L, [place] % (Auto) 10.2 H, Eos % (Auto) 0.9, Baso % (Auto) 0.3, Absolute Neuts (auto) 5.9, Absolute Lymphs (auto) 0.98, Nucleated RBC % 0, Sodium Cancelled 05/31/25 09:00: Sodium 110 L*, Potassium 3.3, Chloride 77 L, Carbon Dioxide 21.5, Anion Gap 12, BUN 18, Creatinine 0.85, Estim Creat Clear Calc 45.12 L, EstGFR (MDRD) Non-Af 71, BUN/Creatinine Ratio 21.1 H, Glucose 122 H, Calcium 8.1, Magnesium 1.8 Radiography Diagnostic Testing: Radiology Impression Chest CT 05/31/25 09:13 IMPRESSION: Coronary artery calcification (CAC) is is present Underlying emphysema with chronic interstitial changes. There are free-flowing bilateral pleural effusions, xjga-[id number]-aoxd-right with associated atelectasis and perhaps associated infiltrate in the left lung base. Follow-up recommended to ensure resolution No suspicious noncalcified mass or nodule No suspicious enlarged axillary, mediastinal or perihilar lymph nodes Enlarged thyroid with low-density nodules suggesting goiter Degenerative bony changes Reading Location: [facility] Physical Exam Const alert and oriented x3 Nutritional Appearance: thin HEENT normocephalic Resp clear to auscultation bilaterally Cardio regular rate GI non-tender and non-distended Auscultation: normoactive bowel sounds Assessment & Plan Assessment/Plan (1) Hypo-osmolar hyponatremia: PLAN: sodium 110. Consider tolvaptan if sodium unchanged. Last sodium 131 on 04/02/25. Thiazide diuretic discontinued. Repeat urine sodium (2) Uncontrolled hypertension: PLAN: more difficult to manage medically. Repeat renal duplex and consult vascular for possible angioplasty of right renal artery stenosis (3) Hypokalemia: PLAN: replace as needed (4) Renal artery stenosis: PLAN: renal duplex (5) Anemia: PLAN: iron studies pending (6) Hypomagnesemia: PLAN: replaced 06/01/25 0711 <Electronically signed by Nora Govea DO> Cosigner Signature (if applicable): CC: ~ Signed [facility] Work Phone: 1(177) 825-914007-29-2025 Progress note [facility] Medical Records Department [address] [place] [address] Progress Note - Nephrology 05/31/25 1125 MR#: [id number] Acct: [id number] Name: ALVARADO COHEN Rep #:[id number] : 1945 79 From: Nora Pettit PCP: Dr. Glenny Luque MD Status:AD M IN [id number] Subjective Subjective complains of weakness, unsteady gait. Denied nausea but has anorexia. Sodium lowat 106 on admit to 110 today. Last sodium 131 on 04/02/25 from [facility]. She has been on chlorthalidone retirement. Recently started on doxazosin for uncontrolled hypertension in May then stopped after intolerance to it with weakness, swelling. BP remains elevated despite titration of hydralazine. Right renal artery stenosison duplex from 2023. Will repeat and consult vascular. Objective Data Objective Data Vital Signs: Vital Signs Temp Pulse Resp BP Pulse Ox O2 Del Method 98.6 F 60 11 L 185/50 H 96 Room Air 05/31/25 08:14 05/31/25 08:21 05/31/25 08:14 05/31/25 08:14 05/31/25 08:14 05/31/25 08:30 Oxygen Delivery Method Room Air Weight: 56.4 kg Body Mass Index (BMI) 22.0 Intake & Output: Intake and Output for Last 24 Hours 05/29/25 05/30/25 05/31/25 23:59 23:59 23:59 Intake Total 649.35 / 649.35 1000 / 1000 350 / 350 Output Total 350 / 350 300 / 300 300 / 300 Balance 299.35 / 299.35 700 / 700 50 / 50 Lab / Micro Data 05/31/25 09:00 05/31/25 09:00 Labs: Laboratory Results - last 24 hr 05/30/25 15:10: Sodium 110 L* 05/30/25 20:45: Sodium 109 L* 05/31/25 02:45: Sodium 110 L* 05/31/25 09:00: WBC 7.8, RBC 2.62 L, Hgb 7.5 L, Hct 20.9 L, MCV 79.8 L, MCH 28.6, MCHC 35.8, RDW Std Deviation 37.2, RDW Coeff of Cathleen 13.0, Plt Count 211, MPV 9.8, Immature Gran % (Auto) 0.800, Neut % (Auto) 75.3 H, Lymph % (Auto) 12.5L, Windsor % (Auto) 10.2 H, Eos % (Auto) 0.9, Baso % (Auto) 0.3, Absolute Neuts (auto) 5.9, Absolute Lymphs (auto) 0.98, Nucleated RBC % 0, Sodium Cancelled 05/31/25 09:00: Sodium 110 L*, Potassium 3.3, Chloride 77 L, Carbon Dioxide 21.5, Anion Gap 12, BUN18, Creatinine 0.85, Estim Creat Clear Calc 45.12 L, EstGFR (MDRD) Non-Af 71, BUN/Creatinine Ratio 21.1 H, Glucose 122 H, Calcium 8.1, Magnesium 1.8 Radiography Diagnostic Testing: Radiology Impression Chest CT 05/31/25 09:13 IMPRESSION: Coronary artery calcification (CAC) is is present Underlying emphysema with chronic interstitial changes. There are free-flowing bilateral pleural effusions, tfzg-[id number]-tufr-right with associated atelectasis and perhaps associated infiltrate in the left lung base. Follow-up recommended to ensure resolution No suspicious noncalcified mass or nodule No suspicious enlarged axillary, mediastinal or perihilar lymph nodes Enlarged thyroid with low-density nodules suggesting goiter Degenerative bony changes Reading Location: [facility] Physical Exam Const alert and oriented x3 Nutritional Appearance: thin HEENT normocephalic Resp clear to auscultation bilaterally Cardio regular rate GI non-tender and non-distended Auscultation: normoactive bowel sounds Assessment & Plan Assessment/Plan (1) Hypo-osmolar hyponatremia: PLAN: sodium 110. Consider tolvaptan if sodium unchanged. Last sodium 131 on 04/02/25. Thiazide diuretic discontinued. Repeat urine sodium (2) Uncontrolled hypertension: PLAN: more difficult to manage medically. Repeat renal duplex and consult vascular for possible angioplasty of right renal artery stenosis (3) Hypokalemia: PLAN: replace as needed (4) Renal artery stenosis: PLAN: renal duplex (5) Anemia: PLAN: iron studies pending (6) Hypomagnesemia: PLAN: replaced 06/01/25 0711 Cosigner Signature (if applicable): CC: ~ Signed [facility]07-28-2025 Progress note Author Tiffanie Govea [facility] Note Date/Time May 31, 2025 2:01 pm [facility] Medical Records Department [address] [place] [address] Progress Note - Hospitalist 05/31/25 0806 MR#: [id number] Acct: [id number] Name: ALVARADO COHEN CALLI Rep #:[id number] : 1945 79 From: Tiffanie Govea DO PCP: Dr. Glenny Luque MD Status:AD M IN Location: [place] [id number]- [id number] Reason for Visit Chief Complaint: Weakness, lightheadedness, generally feeling unwell Subjective Subjective Patient states overall she is feeling a bit better today. Still some lightheadedness yesterday with moving around. Has not yet been out of bed today. Feels like she is stronger overall. Does report strong tobacco abuse history. I did discuss with her that we would go ahead and check a CT of her chest to rule out any malignancy that could be ADH producing. No complaints overall at this time. Objective Data Objective Data Vital Signs: Vital Signs Temp Pulse Resp BP Pulse Ox O2 Del Method 98.6 F 71 17 195/58 H 95 Room Air 05/31/25 02:00 05/31/25 05:03 05/31/25 02:00 05/31/25 05:03 05/31/25 02:00 05/31/25 02:00 Oxygen Delivery Method Room Air Weight: 56.4 kg Body Mass Index (BMI) 22.0 Intake & Output: Intake and Output for Last 24 Hours 05/29/25 05/30/25 05/31/25 23:59 23:59 23:59 Intake Total 649.35 / 649.35 1000 / 1000 50 / 50 Output Total 350 / 350 300 / 300 Balance 299.35 / 299.35 700 / 700 50 / 50 Lab / Micro Data 05/31/25 09:00 05/31/25 09:00 Labs: Laboratory Results - last 24 hr 05/30/25 10:00: Sodium 110 L* 05/30/25 15:10: Sodium 110 L* 05/30/25 20:45: Sodium 109 L* 05/31/25 02:45: Sodium 110 L* Physical Exam Const alert, oriented x3, no apparent distress and average body habitus Constitutional Narrative: Older, white female, sitting up in bed, appears comfortable, nontoxic HEENT head/scalp atraumatic and moist oral mucous membranes Head and Scalp: normocephalic Resp normal respiratory effort, no retractions, no use of accessory muscles and clearto auscultation bilaterally Resp Narrative: Slightly diminished diffusely bases greater than apices Auscultation: Negative for rales, rhonchi or wheezes Cardio regular rate, regular rhythm, S1 normal heart sound, S2 normal heart sound, no murmurs, no rub, no gallops and no clicks GI normal to inspection, nondistended, normoactive bowel sounds, soft to palpation and non-tender Extremity Extremity Narrative: Patient with bilateral clubbing on hands and nailbeds are white, no cyanosis or edema noted, 1+ pedal pulses, 2+ radial pulses Neuro oriented x3, moves all extremities and no focal motor deficits Speech: speech normal Psych affect normal Psych Narrative: Eye contact is good, patient interacts appropriately, very pleasant Assessment & Plan Assessment/Plan (1) Hypo-osmolar hyponatremia: (2) Hypomagnesemia: (3) Hypokalemia: (4) Renal artery stenosis: (5) Uncontrolled hypertension: PLAN: Plan Hypoosmolar hyponatremia - TSH within normal limits - Cortisol within normal limits - Further workup per nephrology - Continue to hold thiazide diuretic - Current sodium is 110 up from 106 on admission - Per nephrology documentation may consider tolvaptan and depending on sodium levels - Will check CT of the chest to rule out ADH producing lung malignancy with tobacco abuse history - Chest x-ray was unremarkable Uncontrolled hypertension - Chlorthalidone is on hold - Continue home amlodipine - Continue home hydralazine - Continue home lisinopril - Continue home metoprolol - Add Isordil - Further workup added by nephrology to include repeat renal duplex and possiblevascular intervention next-patient states that she has seen vascular surgery before and they were not able to intervene on her right renal artery stenosis Hypokalemia - Resolved Acute on chronic anemia - Previous labs we have here from October 2024 and on admission show a hemoglobin between 10 and 12 - current hemoglobin is down to 7.5 - Etiology is unclear this time - check iron studies - Check reticulocyte count - Check guaiac stool - Check a.m. liver panel - Further workup depending on above results - Start Protonix 40 mg IV daily - If iron deficient will dose IV iron and start p.o. iron after IV iron infusions Troponin elevation - Very mild - Etiology is unclear - Echocardiogram is pending - Will defer further workup if echo is unremarkable for wall motion abnormalities History of right renal artery stenosis - Previously unsuccessful stenting - Ultrasound pending per nephrology - Possible reconsultation with vascular surgery. Depending on above Tobacco abuse - Continue nicotine replacement therapy if needed and desired - Recommend cessation DVT prophylaxis - Continue subcu Lovenox CODE STATUS - Full code as verified at the time of admission Charges/Coding Visit Charges Inpatient E&M: 32306 Subs Hosp L2 05/31/25 1401 <Electronically signed by Tiffanie Govea DO> Cosigner Signature (if applicable): CC: ~ Signed [facility] Work Phone: 1(820) 244-674107-28-2025 Progress note [facility] Medical Records Department [address] [place] [address] Progress Note - Hospitalist 05/31/25 0806 MR#: [id number] Acct: [id number] Name: ALVARADO COHEN Rep #:[id number] : 1945 79 From: Tiffanie Govea DO PCP: Dr. Glenny Luque MD Status:AD M IN Location: [place] [address] Reason for Visit Chief Complaint: Weakness, lightheadedness, generally feeling unwell Subjective Subjective Patient states overall she is feeling a bit better today. Still some lightheadedness yesterday withmoving around. Has not yet been out of bed today. Feels like she is stronger overall. Does report strong tobacco abuse history. I did discuss with her that we would go ahead and check a CT of her chest to rule out any malignancy that could be ADH producing. No complaints overall at this time. Objective Data Objective Data Vital Signs: Vital Signs Temp Pulse Resp BP Pulse Ox O2 Del Method 98.6 F 71 17 195/58 H 95 Room Air 05/31/25 02:00 05/31/25 05:03 05/31/25 02:00 05/31/25 05:03 05/31/25 02:00 05/31/25 02:00 Oxygen Delivery Method Room Air Weight: 56.4 kg Body Mass Index (BMI) 22.0 Intake & Output: Intake and Output for Last 24 Hours 05/29/25 05/30/25 05/31/25 23:59 23:59 23:59 Intake Total 649.35 / 649.35 1000 / 1000 50 / 50 Output Total 350 / 350 300 / 300 Balance 299.35 / 299.35 700 / 700 50 / 50 Lab / Micro Data 05/31/25 09:00 05/31/25 09:00 Labs: Laboratory Results - last 24 hr 05/30/25 10:00: Sodium 110 L* 05/30/25 15:10: Sodium 110 L* 05/30/25 20:45: Sodium 109 L* 05/31/25 02:45: Sodium 110 L* Physical Exam Const alert, oriented x3, no apparent distress and average body habitus Constitutional Narrative: Older, white female, sitting up in bed, appears comfortable, nontoxic HEENT head/scalp atraumatic and moist oral mucous membranes Head and Scalp: normocephalic Resp normal respiratory effort, no retractions, no use of accessory muscles and clearto auscultation bilaterally Resp Narrative: Slightly diminished diffusely bases greater than apices Auscultation: Negative for rales, rhonchi or wheezes Cardio regular rate, regular rhythm, S1 normal heart sound, S2 normal heart sound, no murmurs, no rub, no gallops and no clicks GI normal to inspection, nondistended, normoactive bowel sounds, soft to palpation and non-tender Extremity Extremity Narrative: Patient with bilateral clubbing on hands and nailbeds are white, no cyanosis or edema noted, 1+ pedal pulses, 2+ radial pulses Neuro oriented x3, moves all extremities and no focal motor deficits Speech: speech normal Psych affect normal Psych Narrative: Eye contact is good, patient interacts appropriately, very pleasant Assessment & Plan Assessment/Plan (1) Hypo-osmolar hyponatremia: (2) Hypomagnesemia: (3) Hypokalemia: (4) Renal artery stenosis: (5) Uncontrolled hypertension: PLAN: Plan Hypoosmolar hyponatremia - TSH within normal limits - Cortisol within normal limits - Further workup per nephrology - Continue to hold thiazide diuretic - Current sodium is 110 up from 106 on admission - Per nephrology documentation may consider tolvaptan and depending on sodium levels - Will check CT of the chest to rule out ADH producing lung malignancy with tobacco abuse history - Chest x-ray was unremarkable Uncontrolled hypertension - Chlorthalidone is on hold - Continue home amlodipine - Continue home hydralazine - Continue home lisinopril - Continue home metoprolol - Add Isordil - Further workup added by nephrology to include repeat renal duplex and possiblevascular intervention next-patient states that she has seen vascular surgery before and they were not able to interveneon her right renal artery stenosis Hypokalemia - Resolved Acute on chronic anemia - Previous labs we have here from October 2024 and on admission show a hemoglobin between 10 and 12 - current hemoglobin is down to 7.5 - Etiology is unclear this time - check iron studies - Check reticulocyte count - Check guaiac stool - Check a.m. liver panel - Further workup depending on above results - Start Protonix 40 mg IV daily - If iron deficient will dose IV iron and start p.o. iron after IV iron infusions Troponin elevation - Very mild - Etiology is unclear - Echocardiogram is pending - Will defer further workup if echo is unremarkable for wall motion abnormalities History of right renal artery stenosis - Previously unsuccessful stenting - Ultrasound pending per nephrology - Possible reconsultation with vascular surgery. Depending on above Tobacco abuse - Continue nicotine replacement therapy if needed and desired - Recommend cessation DVT prophylaxis - Continue subcu Lovenox CODE STATUS - Full code as verified at the time of admission Charges/Coding Visit Charges Inpatient E&M: 22988 Subs Hosp L2 05/31/25 1401 Cosigner Signature (if applicable): CC: ~ Signed [facility]07-28-2025 Radiology Diagnostic study note [facility] [address] [place], [place] [address] Chest without Contrast MR#: [id number] Acct: [id number] Name: ALVARADO COHEN Rep #: [id number] : 1945 F 79 From: Rodger Richards MD PCP: Dr. Glenny Luque MD Status: AD M IN Study:Chest without Contrast Date of Exam: 05/31/25 Exam# [id number] Ordering Dr: Ros Govea DO PROCEDURE: CT chest without contrast 05/31/2025 REASON FOR EXAM: HYPONATREMIA WITH TOBACCO ABUSE HISTORY TECHNIQUE: Chest CT without contrast. Coronal and Sagittal reconstruction series were provided. One or more dose reduction techniques were used (e.g., Automated exposure control, adjustment of the mA and/or kV according to patient size, use of iterative reconstruction technique RADIATION DOSE SUMMARY: CTDlvol: 6.19 mGy DLP: 230.31 mGycm COMPARISON: Previous plain films FINDINGS: Lung windows show underlying emphysema with chronic interstitial changes in bothlung cabrera. There is a free-flowing left pleural effusion with associated atelectasis, and perhaps associated infiltrate as well. Follow-up is recommended to ensure complete resolution. There is a smaller free-flowing right pleural effusion with associated atelectasis. There is no suspicious noncalcified mass or nodule. Thyroid gland is enlarged with multiple low-density nodules suggestive of goiter. A dedicated thyroid ultrasound may be of benefit for further evaluation. No suspicious axillary, mediastinal or perihilar lymph nodes there are subcentimeter in short axis dimension mediastinal lymph nodes which may be reactive. Peripheral calcifications in the thoracic aorta without aneurysm. Dense coronary artery calcifications are noted. Limited cuts through the upper abdomen show small hiatal hernia. Bony structures show degenerative change CT/Chest without Contrast IMPRESSION: Coronary artery calcification (CAC) is is present Underlying emphysema with chronic interstitial changes. There are free-flowing bilateral pleural effusions, igrx-adsmtrb-xake-right with associated atelectasis and perhaps associated infiltrate in the left lung base. Follow-up recommended to ensure resolution No suspicious noncalcified mass or nodule No suspicious enlarged axillary, mediastinal or perihilar lymph nodes Enlarged thyroid with low-density nodules suggesting goiter Degenerative bony changes Reading Location: [id number] CC: Dr. Tiffanie Govea DO; Dr. Glenny Luque MD ~ Accounts Payable Clerk: Signed [facility]07-27-2025 Progress note Author Glenny [facility] Note Date/Time May 30, 2025 3:39 pm [facility] Medical Records Department [address] [place] [address] Progress Note - Hospitalist 05/30/25 1514 MR#: [id number] Acct: [id number] Name: ALVARADO COHEN CALLI Rep #:[id number] : 1945 79 From: Glenny Wetzel DO PCP: Dr. Glenny Luque MD Status:AD M IN Location: ICU ICU03-1 Reason for Visit Chief Complaint: Weakness, lightheadedness, generally feeling unwell Subjective Subjective Patient was seen and examined today, she is alert and does not appear in any distress, her sodium today was 110 I talked briefly with nephrology and they were okay with moving the patient to PCU. Objective Data Objective Data Vital Signs: Vital Signs Temp Pulse Resp BP Pulse Ox O2 Del Method 98.2 F 63 22 H 183/52 H 95 Room Air 05/30/25 10:00 05/30/25 14:00 05/30/25 14:00 05/30/25 14:00 05/30/25 14:00 05/30/25 14:00 Oxygen Delivery Method Room Air Weight: 57.7 kg Body Mass Index (BMI) 22.5 Intake & Output: Intake and Output for Last 24 Hours 05/28/25 05/29/25 05/30/25 23:59 23:59 23:59 Intake Total 649.35 / 649.35 1000 / 1000 Output Total 350 / 350 300 / 300 Balance 299.35 / 299.35 700 / 700 Lab / Micro Data 05/30/25 04:30 05/30/25 10:00 Labs: Laboratory Results - last 24 hr 05/29/25 14:00: Urine Osmolality 371, Ur Random Sodium 84, Urine Creatinine 43.90, Urine Potassium 36.9, Urine Chloride 80, Urine Urea Nitrogen 358 05/29/25 14:39: Sodium 107 L*, Potassium 3.3, Chloride 72 L*, Carbon Dioxide 21.3, Anion Gap 14, BUN 22 H, Creatinine 1.04, Estim Creat Clear Calc 36.88 L, Est GFR (MDRD) Non-Af 55 L, BUN/Creatinine Ratio 21.1 H, Glucose 113 H, Calcium 8.4 05/29/25 15:18: Troponin T Hi Sens 2 Hr 17 H, Triglycerides 96, Cholesterol 170,LDL Cholesterol, Calc 82, VLDL Cholesterol 19, HDL Cholesterol 68, Cholesterol/HDL Ratio 2.49, TSH 0.701, Cortisol PM Sample 18.30 H 05/29/25 15:50: Serum Osmolality 236 L 05/29/25 17:10: Sodium 109 L*, Potassium 3.3, Chloride 74 L*, Carbon Dioxide 22.2, Anion Gap 13, BUN 21 H, Creatinine 0.94, Estim Creat Clear Calc 40.80 L, Est GFR (MDRD) Non-Af 62, BUN/Creatinine Ratio 22.2 H, Glucose 106 H, Calcium 8.6, Troponin T Hi Sens 4Hr 17 H 05/29/25 21:30: Sodium 107 L*, Potassium 3.3, Chloride 74 L*, Carbon Dioxide 22.3, Anion Gap 11, BUN 19, Creatinine 0.96, Estim Creat Clear Calc 39.95 L, EstGFR (MDRD) Non-Af 61, BUN/Creatinine Ratio 20.0, Glucose 106 H, Calcium 8.4 05/30/25 00:35: Sodium 108 L*, Potassium 3.1 L, Chloride 73 L*, Carbon Dioxide 22.6, Anion Gap 12, BUN 20 H, Creatinine 0.89, Estim Creat Clear Calc 43.09 L, Est GFR (MDRD) Non-Af 66, BUN/Creatinine Ratio 22.1 H, Glucose 107 H, Calcium 8.3 05/30/25 04:30: WBC 7.9, RBC 2.91 L, Hgb 8.6 L, Hct 23.2 L, MCV 79.7 L, MCH 29.6, MCHC 37.1 H, RDW Std Deviation 37.2, RDW Coeff of Cathleen 13.0, Plt Count 192,MPV 9.4, Immature Gran % (Auto) 0.400, Neut % (Auto) 77.3 H, Lymph % (Auto) 12.1L, [place] % (Auto) 8.9, Eos % (Auto) 0.9, Baso % (Auto) 0.4, Absolute Neuts (auto)6.1, Absolute Lymphs (auto) 0.96, Nucleated RBC % 0, Sodium 109 L*, Potassium 3.0 L, Chloride 76 L, Carbon Dioxide 22.6, Anion Gap 11, BUN 19, Creatinine 0.83, Estim Creat Clear Calc 46.21 L, Est GFR (MDRD) Non-Af 72, BUN/Creatinine Ratio 22.8 H, Glucose 95, Calcium 7.8, Magnesium 1.4 L 05/30/25 10:00: Sodium 110 L* Physical Exam Const alert, oriented x3, no apparent distress, average body habitus, healthy appearing and well nourished General Appearance: cooperative, well kempt and well developed Orientation / Consciousness: awake, oriented to person, oriented to place and oriented to time HEENT normocephalic, head/scalp atraumatic and moist oral mucous membranes Eyes PERRL, EOMs intact bilaterally and conjunctivae normal Neck supple, no JVD and thyroid normal General: trachea midline Resp normal respiratory effort, no retractions, no use of accessory muscles and clearto auscultation bilaterally Auscultation: Negative for rales, rhonchi or wheezes Cardio regular rate, regular rhythm, S1 normal heart sound, S2 normal heart sound, no murmurs, no rub and no gallops GI normal to inspection, nondistended, normoactive bowel sounds, soft to palpation,non-tender and non-distended Extremity no clubbing, cyanosis or edema Skin no rashes or lesions noted General Skin Exam: no breakdown Neuro oriented x3, CN's II-XII intact bilaterally, moves all extremities, no focal motor deficits and no sensory deficits noted Sensorium / Orientation: awake and alert Speech: speech normal Psych affect normal Assessment & Plan Assessment/Plan (1) Hyponatremia: PLAN: Plan 1. Hyponatremia-patient's sodium today is 110, labs will be rechecked tomorrow,nephrology is dissipating in her care. Patient was on chlorthalidone as an outpatient, this may have contributed to her hyponatremia. #2 essential-patient will remain on her present medications #3 hypokalemia-patient was given potassium supplementation, BMP will be rechecked tomorrow #4 left basilar atelectasis-I do not feel the patient has pneumonia Total clinical time spent by myself addressing the patient's medical issues, reviewing all of her data, and collaborating with patient's care team: 35 minutes Charges/Coding Visit Charges Inpatient E&M: 50643 Subs Hosp L2 05/30/25 1533 <Electronically signed by Glenny Wetzel DO> Cosigner Signature (if applicable): CC: ~ Signed [facility] Work Phone: [phone] 569-221207-27-2025 Progress note [facility] Medical Records Department [address] [place] [address] Progress Note - Hospitalist 05/30/25 1514 MR#: [id number] Acct: [id number] Name: ALVARADO COHEN Rep #:[id number] : 1945 79 From: Glenny Wetzel DO PCP: Dr. Glenny Luque MD Status:AD M IN Location: ICU ICU03-1 Reason for Visit Chief Complaint: Weakness, lightheadedness, generally feeling unwell Subjective Subjective Patient was seen and examined today, she is alert and does not appear in any distress, her sodium today was 110 I talked briefly with nephrology and they were okay with moving the patient to PCU. Objective Data Objective Data Vital Signs: Vital Signs Temp Pulse Resp BP Pulse Ox O2 Del Method 98.2 F 63 22 H 183/52 H 95 Room Air 05/30/25 10:00 05/30/25 14:00 05/30/25 14:00 05/30/25 14:00 05/30/25 14:00 05/30/25 14:00 Oxygen Delivery Method Room Air Weight: 57.7 kg Body Mass Index (BMI) 22.5 Intake & Output: Intake and Output for Last 24 Hours 05/28/25 05/29/25 05/30/25 23:59 23:59 23:59 Intake Total 649.35 / 649.35 1000 / 1000 Output Total 350 / 350 300 / 300 Balance 299.35 / 299.35 700 / 700 Lab / Micro Data 05/30/25 04:30 05/30/25 10:00 Labs: Laboratory Results - last 24 hr 05/29/25 14:00: Urine Osmolality 371, Ur Random Sodium 84, Urine Creatinine 43.90, Urine Potassium 36.9, Urine Chloride 80, Urine Urea Nitrogen 358 05/29/25 14:39: Sodium 107 L*, Potassium 3.3, Chloride 72 L*, Carbon Dioxide 21.3, Anion Gap 14, BUN 22 H, Creatinine 1.04, Estim Creat Clear Calc 36.88 L, Est GFR (MDRD) Non-Af 55 L, BUN/Creatinine Ratio 21.1 H, Glucose 113 H, Calcium 8.4 05/29/25 15:18: Troponin T Hi Sens 2 Hr 17 H, Triglycerides 96, Cholesterol 170,LDL Cholesterol, Calc 82, VLDL Cholesterol 19, HDL Cholesterol 68, Cholesterol/HDL Ratio 2.49, TSH 0.701, Cortisol PM Sample 18.30 H 05/29/25 15:50: Serum Osmolality 236 L 05/29/25 17:10: Sodium 109 L*, Potassium 3.3, Chloride 74 L*, Carbon Dioxide 22.2, Anion Gap 13, BUN 21 H, Creatinine 0.94, Estim Creat Clear Calc 40.80 L, Est GFR (MDRD) Non-Af 62, BUN/Creatinine Ratio 22.2 H, Glucose 106 H, Calcium 8.6, Troponin T Hi Sens 4Hr 17 H 05/29/25 21:30: Sodium 107 L*, Potassium 3.3, Chloride 74 L*, Carbon Dioxide 22.3, Anion Gap 11, BUN 19, Creatinine 0.96, Estim Creat Clear Calc 39.95 L, EstGFR (MDRD) Non-Af 61, BUN/Creatinine Ratio20.0, Glucose 106 H, Calcium 8.4 05/30/25 00:35: Sodium 108 L*, Potassium 3.1 L, Chloride 73 L*, Carbon Dioxide 22.6, Anion Gap 12, BUN 20 H, Creatinine 0.89, Estim Creat Clear Calc 43.09 L, Est GFR (MDRD) Non-Af 66, BUN/Creatinine Ratio 22.1 H, Glucose 107 H, Calcium 8.3 05/30/25 04:30: WBC 7.9, RBC 2.91 L, Hgb 8.6 L, Hct 23.2 L, MCV 79.7 L, MCH 29.6, MCHC 37.1 H, RDW Std Deviation 37.2, RDW Coeff of Cathleen 13.0, Plt Count 192,MPV 9.4, Immature Gran % (Auto) 0.400, Neut% (Auto) 77.3 H, Lymph % (Auto) 12.1L, [place] % (Auto) 8.9, Eos % (Auto) 0.9, Baso % (Auto) 0.4, Absolute Neuts (auto)6.1, Absolute Lymphs (auto) 0.96, Nucleated RBC % 0, Sodium 109 L*, Potassium 3.0 L, Chloride 76 L, Carbon Dioxide 22.6, Anion Gap 11, BUN 19, Creatinine 0.83, Estim Creat Clear Calc 46.21 L, Est GFR (MDRD) Non-Af 72, BUN/Creatinine Ratio 22.8 H, Glucose 95, Calcium 7.8, Magnesium 1.4 L 05/30/25 10:00: Sodium 110 L* Physical Exam Const alert, oriented x3, no apparent distress, average body habitus, healthy appearing and well nourished General Appearance: cooperative, well kempt and well developed Orientation / Consciousness: awake, oriented to person, oriented to place and oriented to time HEENT normocephalic, head/scalp atraumatic and moist oral mucous membranes Eyes PERRL, EOMs intact bilaterally and conjunctivae normal Neck supple, no JVD and thyroid normal General: trachea midline Resp normal respiratory effort, no retractions, no use of accessory muscles and clearto auscultation bilaterally Auscultation: Negative for rales, rhonchi or wheezes Cardio regular rate, regular rhythm, S1 normal heart sound, S2 normal heart sound, no murmurs, no rub and no gallops GI normal to inspection, nondistended, normoactive bowel sounds, soft to palpation,non-tender and non-distended Extremity no clubbing, cyanosis or edema Skin no rashes or lesions noted General Skin Exam: no breakdown Neuro oriented x3, CN's II-XII intact bilaterally, moves all extremities, no focal motor deficits and no sensory deficits noted Sensorium / Orientation: awake and alert Speech: speech normal Psych affect normal Assessment & Plan Assessment/Plan (1) Hyponatremia: PLAN: Plan 1. Hyponatremia-patient's sodium today is 110, labs will be rechecked tomorrow,nephrology is dissipating in her care. Patient was on chlorthalidone as an outpatient, this may have contributed to her hyponatremia. #2 essential-patient will remain on her present medications #3 hypokalemia-patient was given potassium supplementation, BMP will be rechecked tomorrow #4 left basilar atelectasis-I do not feel the patient has pneumonia Total clinical time spent by myself addressing the patient's medical issues, reviewing all of her data, and collaborating with patient's care team: 35 minutes Charges/Coding Visit Charges Inpatient E&M: 05931 Subs Hosp L2 05/30/25 8911 Cosigner Signature (if applicable): CC: ~ Signed [facility]07-27-2025 Consult note Author Latoya unger [facility] Note Date/Time May 30, 2025 9:53 am [facility] Medical Records Department [address] [place] [address] Consultation - Nephrology 05/30/25 0908 MR#: [id number] Acct: [id number] Name: ALVARADO COHEN CALLI Rep #:[id number] : 1945 79 From: Latoya schneider MD PCP: Dr. Glenny Luque MD Status:AD M IN Location: ICU ICU03-1 Assessment & Plan Assessment/Plan (1) Hyponatremia: (2) Hypokalemia: (3) Hypomagnesemia: PLAN: Plan Assessment/Plan: Patient is a 79-year-old female with past history of hypertension with renal artery stenosis. Patient presented to hospital on 05/29/2025 with 4-day history of dyspnea, dizziness, and generalized weakness. During evaluation in ED, patient was found to have serum sodium of 106 mmol/L. Nephrology is asked to see the patient because of hyponatremia. Hyponatremia. Patient has hypotonic hyponatremia. Serum osmolality is 236 mOsm/kg. There is no severe symptoms of hyponatremia, so there is no need for hypertonic saline. Urine sodium is greater than 30 mmol/L. Urine osmolality is also more than 100 mOsm/kg. There is no evidence of thyroid dysfunction or adrenal insufficiency. Therefore, hyponatremia is ADH mediated. It is possible that patient may have underlying SIADH given the findings of urine studies. However, this is a diagnosis of exclusion. Patient has been on chlorthalidone which can cause hyponatremia and resulted in similar urine findings. First step is to stop thiazide diuretic, so I agree with discontinuing chlorthalidone which can cause diuretic induced hyponatremia. I will recheck urine electrolytes off of thiazide diuretic and saline boluses tomorrow. Patient received IV normal saline overnight., So repeating urine studies today will still not be helpful. She has remained asymptomatic from hyponatremia, so there is no need for hypertonic saline. I encouraged patient to push her own solute (protein) intake. Patient is not an ideal candidate for salt tablets since she is hypertensive. We do not have urea powder here. Therefore, I recommended that she pushes protein containing food items which will help the kidney excrete more free water. Continue to limit fluid intake to 1.2 L/day or less. Hypokalemia and hypomagnesemia should also be treated. Keeping potassium withinnormal limits will attenuate further drop in serum sodium. Continue to check serum sodium every 6 hours today. Since we do not know how chronic hyponatremia has been, I would recommend increasing sodium by 6 to 8 mmol/L/day but no more than 12 mmol/L/day to avoid osmotic demyelination syndrome. I do not recommend any further saline boluses since patient does not appear to be volume depleted. Giving more normal saline could also exacerbate hyponatremia if patient has poor oral solute intake (since osmolality of urine is greater than osmolality of normal saline). Hypokalemia and hypomagnesemia. Potassium remains low at 3.0 mmol/L with magnesium level of 1.4 mg/dL. Suspect hypokalemia and hypomagnesemia is also be due to chlorthalidone use. As discussed above, correcting hypokalemia could also help keep serum sodium from falling. Magnesium should also be replaced since hypokalemia may be more resistant to replacement if patient remains hypomagnesemic. Continue to monitor serum potassium and magnesium levels. HPI Consult Data Date of Consult: 05/30/25 HPI Narrative Reason for Consultation: Hyponatremia HPI Narrative: Patient is a 79-year-old female with past history of hypertension with renal artery stenosis. Patient presented to hospital on 05/29/2025 with 4-day history of dyspnea, dizziness, and generalized weakness. During evaluation in ED, patient was found to have serum sodium of 106 mmol/L. Nephrology is asked to see the patient because of hyponatremia. There is no prior history of chronic hyponatremia. Last available serum sodium from 10/07/2024 was 136 mmol/L. Prior to admission, patient has been on chlorthalidone for treatment of hypertension. Patient believes that she has been on chlorthalidone for approximately 3 years. She denies any prior knowledge of hyponatremia on his medication. She is not on SSRI, TCA, or antiseizure medication. Patient denies chronic headache, nausea/vomiting or ataxia prior to admission. She denies chronic use of NSAIDs. [facility] Medical History Renal artery stenosis HTN (hypertension) Home Medications ?Medication ?Instructions ?Recorded ?Last Taken ?Type amlodipine 10 mg tablet 10 mg PO DAILY 03/21/2305/05 History chlorthalidone 25 mg tablet 25 mg PO QDAY 08/27/24 History metoprolol succinate 50 mg 50 mg PO BID 08/27/2405/29 History tablet,extended release 24 hr hydralazine 25 mg tablet 25 mg PO BID high blood pres sure 10/06/24 05/29/25 History lisinopril 30 mg tablet 30 mg PO BID High blood pres sure 10/06/24 05/29/25 History Allergy/AdvReac Type Severity Reaction Status Date / Time codeine Allergy PT UNSURE Verified 05/29/25 12:50 OF REACTION Sulfa (Sulfonamide Allergy Rash Verified 05/29/25 12:50 Antibiotics) (sulfa drugs) Family History Other Asthma Cancer Hypertension Surgical History H/O cone biopsy of cervix (~1977) Social History Smoking Status: Light Smoker (<10/day) Tobacco: How many years used: 40 quit status: considering quitting ROS ROS Narrative As per HPI otherwise noncontributory Physical Exam Narrative General: Alert and oriented x3, NAD. HEENT: Normocephalic, atraumatic. Mucous membrane moist without erythema. PERRLA, EOMI. Hearing is intact. Neck: Supple, no JVD. Trachea is midline. No thyromegaly or lymphadenopathy. Cardiovascular: Normal S1, S2. No rubs, murmurs, or gallops. Respiratory: Lungs are clear to auscultation bilaterally. No wheezing, rhonchi,or rales. Abdomen: Normal bowel sounds, soft, nontender, no guarding or rebound, no organomegaly. Extremities: No clubbing, cyanosis, or edema. Musculoskeletal: Full passive range of motion, no joint swelling. Psychiatric: Normal mood and affect. Skin: Warm and dry, no rash. Neurologic: Cranial nerve II to XII are grossly intact. No focal neurologic deficits. Lab / Micro Data 05/30/25 04:30 05/30/25 04:30 Labs: Laboratory Results - last 24 hr 05/29/25 13:25: WBC 8.6, RBC 3.46 L, Hgb 10.2 L, Hct 27.1 L, MCV 78.3 L, MCH 29.5, MCHC 37.6 H, RDW Std Deviation 37.3, RDW Coeff of Cathleen 13.2, Plt Count 257,MPV 9.3, Sodium 106 L*, Potassium 3.5, Chloride 73 L*, Carbon Dioxide 21.6, Anion Gap 12, BUN 21 H, Creatinine 1.06, Estim Creat Clear Calc 36.18 L, Est GFR(MDRD) Non-Af 54 L, BUN/Creatinine Ratio 20.2 H, Glucose 121 H, Calcium 8.7, Total Bilirubin 0.44, AST 21, ALT 23, Alkaline Phosphatase 76, Troponin T High Sens 20 H, NT pro BNP II 5274 H, Total Protein 6.2, Albumin 3.9, Globulin 2.3, Albumin/Globulin Ratio 1.7 05/29/25 14:00: Urine Color Yellow, Urine Clarity Sl. Cloudy, Urine pH 7.0, Ur Specific [place] 1.010, Urine Protein 15 H, Urine Glucose (UA) Normal, Urine Ketones 5 H, Urine Occult Blood Negative, Urine Nitrite Negative, Urine Bilirubin Negative, Urine Urobilinogen Normal, Ur Leukocyte Esterase 500 H, Urine RBC 0 SEEN, Urine WBC 0-5 SEEN, Ur Squamous Epith Cells 0-5 SEEN, Urine Bacteria 0 SEEN, Urine Mucus 0 SEEN, Urine Osmolality 371, Ur Random Sodium 84, Urine Creatinine 43.90, Urine Potassium 36.9, Urine Chloride 80, Urine Urea Nitrogen 358 05/29/25 14:39: Sodium 107 L*, Potassium 3.3, Chloride 72 L*, Carbon Dioxide 21.3, Anion Gap 14, BUN 22 H, Creatinine 1.04, Estim Creat Clear Calc 36.88 L, Est GFR (MDRD) Non-Af 55 L, BUN/Creatinine Ratio 21.1 H, Glucose 113 H, Calcium 8.4 05/29/25 15:18: Troponin T Hi Sens 2 Hr 17 H, Triglycerides 96, Cholesterol 170,LDL Cholesterol, Calc 82, VLDL Cholesterol 19, HDL Cholesterol 68, Cholesterol/HDL Ratio 2.49, TSH 0.701, Cortisol PM Sample 18.30 H 05/29/25 15:50: Serum Osmolality 236 L 05/29/25 17:10: Sodium 109 L*, Potassium 3.3, Chloride 74 L*, Carbon Dioxide 22.2, Anion Gap 13, BUN 21 H, Creatinine 0.94, Estim Creat Clear Calc 40.80 L, Est GFR (MDRD) Non-Af 62, BUN/Creatinine Ratio 22.2 H, Glucose 106 H, Calcium 8.6, Troponin T Hi Sens 4Hr 17 H 05/29/25 21:30: Sodium 107 L*, Potassium 3.3, Chloride 74 L*, Carbon Dioxide 22.3, Anion Gap 11, BUN 19, Creatinine 0.96, Estim Creat Clear Calc 39.95 L, EstGFR (MDRD) Non-Af 61, BUN/Creatinine Ratio 20.0, Glucose 106 H, Calcium 8.4 05/30/25 00:35: Sodium 108 L*, Potassium 3.1 L, Chloride 73 L*, Carbon Dioxide 22.6, Anion Gap 12, BUN 20 H, Creatinine 0.89, Estim Creat Clear Calc 43.09 L, Est GFR (MDRD) Non-Af 66, BUN/Creatinine Ratio 22.1 H, Glucose 107 H, Calcium 8.3 05/30/25 04:30: WBC 7.9, RBC 2.91 L, Hgb 8.6 L, Hct 23.2 L, MCV 79.7 L, MCH 29.6, MCHC 37.1 H, RDW Std Deviation 37.2, RDW Coeff of Cathleen 13.0, Plt Count 192,MPV 9.4, Immature Gran % (Auto) 0.400, Neut % (Auto) 77.3 H, Lymph % (Auto) 12.1L, [place] % (Auto) 8.9, Eos % (Auto) 0.9, Baso % (Auto) 0.4, Absolute Neuts (auto)6.1, Absolute Lymphs (auto) 0.96, Nucleated RBC % 0, Sodium 109 L*, Potassium 3.0 L, Chloride 76 L, Carbon Dioxide 22.6, Anion Gap 11, BUN 19, Creatinine 0.83, Estim Creat Clear Calc 46.21 L, Est GFR (MDRD) Non-Af 72, BUN/Creatinine Ratio 22.8 H, Glucose 95, Calcium 7.8, Magnesium 1.4 L Imaging Radiology Impression Brain CT 05/29/25 13:18 IMPRESSION: 1. Generalized brain atrophy. 2. Small vessel ischemic/degenerative changes. 3. No acute intracranial hemorrhage, midline shift or mass effect. If symptoms persist, further evaluation with MRI is recommended. Reading Location: [facility] Chest X-Ray 05/29/25 13:30 IMPRESSION: Left basilar atelectasis or pneumonia. Reading Location: [facility] 05/30/25 0953 <Electronically signed by Latoya Mo MD> Cosigner Signature (if applicable): CC: Dr. Glenny Luque MD~ Signed [facility] Work Phone: [phone]) 784-969607-27-2025 Consult note [facility] Medical Records Department [address] [place] [address] Consultation - Nephrology 05/30/25 0908 MR#: [id number] Acct: [id number] Name: ALVARADO COHEN Rep #:[id number] : 1945 79 From: Latoya schneider MD PCP: Dr. Glenny Luque MD Status:AD M IN Location: ICU ICU03-1 Assessment & Plan Assessment/Plan (1) Hyponatremia: (2) Hypokalemia: (3) Hypomagnesemia: PLAN: Plan Assessment/Plan: Patient is a 79-year-old female with past history of hypertension with renal artery stenosis. Patient presented to hospital on 05/29/2025 with 4-day history of dyspnea, dizziness, and generalized weakness. During evaluation in ED, patient was found to have serum sodium of 106 mmol/L. Nephrology is asked to see the patient because of hyponatremia. Hyponatremia. Patient has hypotonic hyponatremia. Serum osmolality is 236 mOsm/kg. There is no severe symptoms of hyponatremia, so there is no need for hypertonic saline. Urine sodium is greater than 30 mmol/L. Urine osmolality is also more than 100 mOsm/kg. There is no evidence of thyroid dysfunction or adrenal insufficiency. Therefore, hyponatremia is ADH mediated. It is possible that patient may have underlying SIADH given the findings of urine studies. However,this is a diagnosis of exclusion. Patient has been on chlorthalidone which can cause hyponatremia and resulted in similar urine findings. First step is to stop thiazide diuretic, so I agree with discontinuing chlorthalidone which can cause diuretic induced hyponatremia. I will recheck urine electrolytes off of thiazide diuretic and saline boluses tomorrow. Patient received IV normal saline overnight., So repeating urine studies today will still not be helpful. She has remained asymptomatic from hyponatremia, so there is no need for hypertonic saline. I encouraged patient to push her own solute (protein) intake. Patient is not an ideal candidate for salt tablets since she is hypertensive. We do not have urea powder here. Therefore, I recommended that she pushes protein containing food items which will help the kidney excrete more free water. Continue to limit fluid intake to 1.2 L/day or less. Hypokalemia and hypomagnesemia should also be treated. Keeping potassium withinnormal limits will attenuate further drop in serum sodium. Continue to check serum sodium every 6 hours today. Since we do not know how chronic hyponatremia has been, I would recommend increasing sodium by 6 to8 mmol/L/day but no more than 12 mmol/L/day to avoid osmotic demyelination syndrome. I do not recommend any further saline boluses since patient does not appear to be volume depleted. Giving more normal saline could also exacerbate hyponatremia if patient has poor oral solute intake (since osmolality of urine is greater than osmolality of normal saline). Hypokalemia and hypomagnesemia. Potassium remains low at 3.0 mmol/L with magnesium level of 1.4 mg/dL. Suspect hypokalemia and hypomagnesemia is also be due to chlorthalidone use. As discussed above, correcting hypokalemia could also help keep serum sodium from falling. Magnesium should also be replaced since hypokalemia may be more resistant to replacement if patientremains hypomagnesemic. Continue to monitor serum potassium and magnesium levels. HPI Consult Data Date of Consult: 05/30/25 HPI Narrative Reason for Consultation: Hyponatremia HPI Narrative: Patient is a 79-year-old female with past history of hypertension with renal artery stenosis. Patient presented to hospital on 05/29/2025 with 4-day history of dyspnea, dizziness, and generalized weakness. During evaluation in ED, patient was found to have serum sodium of 106 mmol/L. Nephrology is asked to see the patient because of hyponatremia. There is no prior history of chronic hyponatremia. Last available serum sodium from 10/07/2024 was 136 mmol/L. Prior to admission, patient has been on chlorthalidone for treatment of hypertension. Patient believes that she has been on chlorthalidone for approximately 3 years. She denies any prior knowledge ofhyponatremia on his medication. She is not on SSRI, TCA, or antiseizure medication. Patient denies chronic headache, nausea/vomiting or ataxia prior to admission. She denies chronic use of NSAIDs. [facility] Medical History Renal artery stenosis HTN (hypertension) Home Medications ?Medication ?Instructions ?Recorded ?Last Taken ?Type amlodipine 10 mg tablet 10 mg PO DAILY 03/21/2305/05 History chlorthalidone 25 mg tablet 25 mg PO QDAY 08/27/24 History metoprolol succinate 50 mg 50 mg PO BID 08/27/2405/29 History tablet,extended release 24 hr hydralazine 25 mg tablet 25 mg PO BID high blood pres sure 10/06/24 05/29/25 History lisinopril 30 mg tablet 30 mg PO BID High blood pres sure 10/06/24 05/29/25 History Allergy/AdvReac Type Severity Reaction Status Date / Time codeine Allergy PT UNSURE Verified 05/29/25 12:50 OF REACTION Sulfa (Sulfonamide Allergy Rash Verified 05/29/25 12:50 Antibiotics) (sulfa drugs) Family History Other Asthma Cancer Hypertension Surgical History H/O cone biopsy of cervix (~1977) Social History Smoking Status: Light Smoker (<10/day) Tobacco: How many years used: 40 quit status: considering quitting ROS ROS Narrative As per HPI otherwise noncontributory Physical Exam Narrative General: Alert and oriented x3, NAD. HEENT: Normocephalic, atraumatic. Mucous membrane moist without erythema. PERRLA, EOMI. Hearing is intact. Neck: Supple, no JVD. Trachea is midline. No thyromegaly or lymphadenopathy. Cardiovascular: Normal S1, S2. No rubs, murmurs, or gallops. Respiratory: Lungs are clear to auscultation bilaterally. No wheezing, rhonchi,or rales. Abdomen: Normal bowel sounds, soft, nontender, no guarding or rebound, no organomegaly. Extremities: No clubbing, cyanosis, or edema. Musculoskeletal: Full passive range of motion, no joint swelling. Psychiatric: Normal mood and affect. Skin: Warm and dry, no rash. Neurologic: Cranial nerve II to XII are grossly intact. No focal neurologic deficits. Lab / Micro Data 05/30/25 04:30 05/30/25 04:30 Labs: Laboratory Results - last 24 hr 05/29/25 13:25: WBC 8.6, RBC 3.46 L, Hgb 10.2 L, Hct 27.1 L, MCV 78.3 L, MCH 29.5, MCHC 37.6 H, RDWStd Deviation 37.3, RDW Coeff of Cathleen 13.2, Plt Count 257,MPV 9.3, Sodium 106 L*, Potassium 3.5, Chloride 73 L*, Carbon Dioxide 21.6, Anion Gap 12, BUN 21 H, Creatinine 1.06, Estim Creat Clear Calc 36.18 L, Est GFR(MDRD) Non-Af 54 L, BUN/Creatinine Ratio 20.2 H, Glucose 121 H, Calcium 8.7, Total Bilirubin 0.44, AST 21, ALT 23, Alkaline Phosphatase 76, Troponin T High Sens 20 H, NT pro BNP II 5274 H, Total Protein 6.2, Albumin 3.9, Globulin 2.3, Albumin/Globulin Ratio 1.7 05/29/25 14:00: Urine Color Yellow, Urine Clarity Sl. Cloudy, Urine pH 7.0, Ur Specific [place] 1.010, Urine Protein 15 H, Urine Glucose (UA) Normal, Urine Ketones 5 H, Urine Occult Blood Negative, Urine Nitrite Negative, Urine Bilirubin Negative, Urine Urobilinogen Normal, Ur Leukocyte Esterase 500 H, Urine RBC 0 SEEN, Urine WBC 0-5 SEEN, Ur Squamous Epith Cells 0-5 SEEN, Urine Bacteria 0 SEEN, Urine Mucus 0 SEEN, Urine Osmolality 371, Ur Random Sodium 84, Urine Creatinine 43.90, Urine Potassium 36.9, Urine Chloride 80, Urine Urea Nitrogen 358 05/29/25 14:39: Sodium 107 L*, Potassium 3.3, Chloride 72 L*, Carbon Dioxide 21.3, Anion Gap 14, BUN 22 H, Creatinine 1.04, Estim Creat Clear Calc 36.88 L, Est GFR (MDRD) Non-Af 55 L, BUN/Creatinine Ratio 21.1 H, Glucose 113 H, Calcium 8.4 05/29/25 15:18: Troponin T Hi Sens 2 Hr 17 H, Triglycerides 96, Cholesterol 170,LDL Cholesterol, Calc 82, VLDL Cholesterol 19, HDL Cholesterol 68, Cholesterol/HDL Ratio 2.49, TSH 0.701, Cortisol PM Sample 18.30 H 05/29/25 15:50: Serum Osmolality 236 L 05/29/25 17:10: Sodium 109 L*, Potassium 3.3, Chloride 74 L*, Carbon Dioxide 22.2, Anion Gap 13, BUN 21 H, Creatinine 0.94, Estim Creat Clear Calc 40.80 L, Est GFR (MDRD) Non-Af 62, BUN/Creatinine Ratio 22.2 H, Glucose 106 H, Calcium 8.6, Troponin T Hi Sens 4Hr 17 H 05/29/25 21:30: Sodium 107 L*, Potassium 3.3, Chloride 74 L*, Carbon Dioxide 22.3, Anion Gap 11, BUN 19, Creatinine 0.96, Estim Creat Clear Calc 39.95 L, EstGFR (MDRD) Non-Af 61, BUN/Creatinine Ratio20.0, Glucose 106 H, Calcium 8.4 05/30/25 00:35: Sodium 108 L*, Potassium 3.1 L, Chloride 73 L*, Carbon Dioxide 22.6, Anion Gap 12, BUN 20 H, Creatinine 0.89, Estim Creat Clear Calc 43.09 L, Est GFR (MDRD) Non-Af 66, BUN/Creatinine Ratio 22.1 H, Glucose 107 H, Calcium 8.3 05/30/25 04:30: WBC 7.9, RBC 2.91 L, Hgb 8.6 L, Hct 23.2 L, MCV 79.7 L, MCH 29.6, MCHC 37.1 H, RDW Std Deviation 37.2, RDW Coeff of Cathleen 13.0, Plt Count 192,MPV 9.4, Immature Gran % (Auto) 0.400, Neut% (Auto) 77.3 H, Lymph % (Auto) 12.1L, [place] % (Auto) 8.9, Eos % (Auto) 0.9, Baso % (Auto) 0.4, Absolute Neuts (auto)6.1, Absolute Lymphs (auto) 0.96, Nucleated RBC % 0, Sodium 109 L*, Potassium 3.0 L, Chloride 76 L, Carbon Dioxide 22.6, Anion Gap 11, BUN 19, Creatinine 0.83, Estim Creat Clear Calc 46.21 L, Est GFR (MDRD) Non-Af 72, BUN/Creatinine Ratio 22.8 H, Glucose 95, Calcium 7.8, Magnesium 1.4 L Imaging Radiology Impression Brain CT 05/29/25 13:18 IMPRESSION: 1. Generalized brain atrophy. 2. Small vessel ischemic/degenerative changes. 3. No acute intracranial hemorrhage, midline shift or mass effect. If symptoms persist, further evaluation with MRI is recommended. Reading Location: [facility] Chest X-Ray 05/29/25 13:30 IMPRESSION: Left basilar atelectasis or pneumonia. Reading Location: [facility] 05/30/25 0953 Cosigner Signature (if applicable): CC: Dr. Glenny Luque MD~ Signed [facility]07-27-2025 Progress note Author Porfiroi Aguilar [facility] Note Date/Time May 30, 2025 12:4 8am [facility] Medical Records Department [address] [place] [address] Progress Note - Hospitalist 05/29/252253 MR#: [id number] Acct: [id number] Name: NOELALVARADO CALLI Rep #:[id number] : 1945 79 From: Porfirio Aguilar DO PCP: Dr. Glenny Luque MD Status:AD M IN Location: ICU ICU03-1 Hospitalist Note Sodium still low at 117. Will give patient normal saline at 125 an hour and continue to recheck sodiums. 05/29/252253 <Electronically signed by Porfirio Aguilar DO> Cosigner Signature (if applicable): CC: ~ Signed ADDENDUM by Dr. Porfirio Aguilar DO on 05/30/25 at 0048 Addendum Blood pressure still high despite the IV hydralazine. Will give her a one-time dose of IV Vasotec. Patient did receive metoprolol and lisinopril last night. Will be back in 2023 she had high blood pressures up into the 190s at that time. I suspect that she may have chronically elevated blood pressures despite the medications which may be partly what we are seeing right now. 05/30/25 0048<Electronically signed by Porfirio Aguilar DO> Cosigner Signature (if applicable): cc: ~* Signed [facility] Work Phone: 1(334) 386-437307-27-2025 Progress note [facility] Medical Records Department [address] [place] [address] Progress Note - Hospitalist 05/29/252253 MR#: [id number] Acct: [id number] Name: NOELALVARADO CALLI Rep #:[id number] : 1945 79 From: Porfirio Aguilar DO PCP: Dr. Glenny Luque MD Status:AD M IN Location: ICU ICU03-1 Hospitalist Note Sodium still low at 117. Will give patient normal saline at 125 an hour and continue to recheck sodiums. 05/29/252253 Cosigner Signature (if applicable): CC: ~ Signed ADDENDUM by Dr. Porfirio Aguilar DO on 05/30/25 at 0048 Addendum Blood pressure still high despite the IV hydralazine. Will give her a one-time dose of IV Vasotec. Patient did receive metoprolol and lisinopril last night. Will be back in 2023 she had high blood pressures up into the 190s at that time. I suspect that she may have chronically elevated blood pressures despite the medications which may be partly what we are seeing right now. 05/30/2547 Cosigner Signature (if applicable): cc: ~* Signed [facility]07-26-2025 Progress note Author Conchita Burns [facility] Note Date/Time May 29, 2025 6:11 pm [facility] Medical Records Department [address] [place] [address] Progress Note - Hospitalist 05/29/251809 MR#: [id number] Acct: [id number] Name: ALVARADO COHEN Rep #:[id number] : 1945 79 From: Conchita Burns MD PCP: Dr. Glenny Luque MD Status:AD M IN Location: ICU ICU03-1 Hospitalist Note Discussed with nephrology, given patient's serum and urine osmolalities and urine sodium/full workup, fluid restriction of 1200 cc was advised with no need for fluids or hypertonic saline at this time unless clinical status were to change. Chlorthalidone held. Nephrology will see in consultation 05/29/251810 <Electronically signed by Conchita Burns MD> Cosigner Signature (if applicable): CC: ~ Signed [facility] Work Phone: 1(603) 411-953807-26-2025 Discharge summary Author Del Leyva [facility] Note Date/Time May 29, 2025 6:08 pm [facility] Medical Records Department [address] [place] [address] Emergency Department Summary 05/29/25 MR#: [id number] Acct: [id number] Name: ALVARADO COHEN Rep #:[id number] : 1945 79 From: Del Pettit PCP: Dr. Glenny Luque MD Status:AD M IN Location: ICU ICU03-1 HPI History of Present Illness Chief Complaint: General Illness PFSH PFSH Medical History Renal artery stenosis HTN (hypertension) Home Medications ?Medication ?Instructions ?Recorded ?Last Taken ?Type amlodipine 10 mg tablet 10 mg PO DAILY 03/21/23/04/28 History chlorthalidone 25 mg tablet 25 mg PO QDAY 08/27/24 History metoprolol succinate 50 mg 50 mg PO BID 08/27/2405/29 History tablet,extended release 24 hr hydralazine 25 mg tablet 25 mg PO BID high blood pres sure 10/06/24 05/29/25 History lisinopril 30 mg tablet 30 mg PO BID High blood pres sure 10/06/24 05/29/25 History Allergy/AdvReac Type Severity Reaction Status Date / Time codeine Allergy PT UNSURE Verified 05/29/25 12:50 OF REACTION Sulfa (Sulfonamide Allergy Rash Verified 05/29/25 12:50 Antibiotics) (sulfa drugs) Family History Other Asthma Cancer Hypertension Surgical History H/O cone biopsy of cervix (~1977) Social History Smoking Status: Light Smoker (<10/day) Tobacco: How many years used: 40 quit status: considering quitting EXAM Physical Exam Const Vital Signs: 05/29/25 12:48 05/29/25 14:01 05/29/25 14:04 Temperature 97.8 F Temperature Source Oral Pulse Rate 68 65 Respiratory Rate 18 Respiratory Effort Normal Non-Labored Blood Pressure 185/54 H 197/56 H Blood Pressure Mean 97 103 Pulse Ox 96 99 Oxygen Delivery Method Room Air Room Air 05/29/25 14:13 05/29/25 15:33 05/29/25 16:00 Temperature 97.8 F Temperature Source Pulse Rate 64 70 68 Respiratory Rate 13 17 13 Respiratory Effort Blood Pressure 169/54 H 186/63 H 198/61 H Blood Pressure Mean 92 104 106 Pulse Ox 97 97 97 Oxygen Delivery Method Room Air Room Air [facility] Narrative Medical decision making narrative: HISTORY OF PRESENT ILLNESS: Chief complaint: 79year-old female history of hypertension, renal artery stenosis presents with shortness of breath associated with swelling, dizziness and weakness. Notes this began 4 days ago. Endorses history of renal artery stenosis. Denies headache but notes occasional dizziness specifically with standing. Notes compliance with home antihypertensives. Denies any falls or trauma. She deniesany chest pain but notes some shortness of breath specifically with exertion. While swelling was endorsed in the triage note the patient denies lower extremity edema. Denies cough fever or chills. The patient denies recent surgery in the last 4 weeks or immobilization in the last 3 days, denies previous diagnosis of DVT or PE, hemoptysis, unilateral leg swelling or malignancy with treatment the last 6 months or palliative. No estrogen use noted. Denies any bleeding diathesis REVIEW OF SYSTEMS: Pertinent positives: Shortness of breath, dizziness and weakness Pertinent negatives: Syncope, headache PHYSICAL EXAM: Nursing triage notes reviewed, Vital signs reviewed Constitutional: please see [facility] HENT: MMM Eyes: Pupils equal round and reactive to light, Extraocular muscles intact Neck: No stridor, no JVD, full neck ROM Lungs: Clear to auscultation, No wheezing or rales. No increased work of breathing, no conversational dyspnea, no accessory muscle use, no nasal flaring. No respiratory distress noted Heart: Regular rate and rhythm, No murmurs, No rubs and No gallops, 2+ distal pulses (radial, femoral, posterior tibial) in all extremities Abdomen: Soft, there is no tenderness, rigidity, rebound or guarding, no obviousperitoneal signs, no palpable pulsatile abdominal masses, no auscultated abdominal bruit : No CVAT Extremities: No edema Neuro: Alert and oriented x3, neuro exam at baseline, cranial nerves II through XII are intact. No pain with extraocular muscle movement. There is negative test of skew. 5 of 5 strength in upper and lower extremities in flexion extension. Intact sensation to light touch in upper and lower extremity dermatomes. No truncal or extremity ataxia. No dysdiadochokinesia. Normal gait. 2+ reflexes in upper and lower extremities. No meningeal signs. Negative Babinski. NIH of 0. Skin: No rash or lesions noted MEDICAL DECISION MAKING: Chief Complaint: please see HPI External records reviewed: Reviewed prior vascular surgery operation. Reviewed prior cardiovascular testing. No recent echocardiograms noted in [facility] Factors affecting care: As per [facility] Social determinants of health: none History obtained from others: Consults: internal medicine (Dr. Burns) [facility] Narrative: The patient was initially hypertensive with a blood pressure 185/54 otherwise afebrile and nontoxic-appearing. Exam without focal I considered the following differential diagnosis: ICH, anemia, elec electrolytedisturbance, endorgan damage from elevated blood pressure, ACS, CHF exacerbation I obtained a broad lab and imaging workup to further determine if the patient was suffering from a life-threatening etiology. Initially treat the patient with IV labetalol to lower blood pressure. ALL IMAGES (IF OBTAINED) HAVE BEEN PERSONALLY REVIEWED AND INTERPRETED BY MYSELF. CBC with no leukocytosis, noted mild anemia but no thrombocytopenia noted BMP with hyponatremia, no hypokalemia, no anion gap, no metabolic acidosis Mild FTs High-sensitivity troponin is negative, no evidence of myocardial ischemiax3 Initial BNP elevated consistent with volume overload Urinalysis shows no evidence of urinary inflammation suggestive of UTI The synthesis of the patient's history, physical exam, labs images suggest severe electrolyte abnormalities as the precipitating cause. Repeat neurologic remained intact. No sign of seizure at this time. Given profound hyponatremia will admit the patient to ICU. Discussed with Dr. Burns. The patient and/or family, caregivers express understanding. The patient and/orfamily, caregivers agrees with the plan. Shared decision making: I will have a discussion with the patient and or visitors regarding risk/benefits of further testing or admission. They will be made aware of of the risk/benefits inherent in this decision they will be given the opportunity to voice understanding. Total critical care time today provided was at least 60 minutes. This excludes separately billable procedures. Critical care time (if documented) is secondary to the patient having high probability of clinically significant/life threatening deterioration in the patient's condition which required my urgent intervention. Impression: 1. Hyponatremia 2. Diffuse weakness 3. Poorly controlled hypertension Dispo: Admit to ICU This note was generated with Sofea dictation software. It may contain incorrectwords, spelling, and punctuation that were not noted in review of the chart prior to signing. Lab Data Labs: Laboratory Results - last 24 hr 05/29/25 05/29/25 05/29/25 13:25 14:00 14:39 WBC 8.6 RBC 3.46 L Hgb 10.2 L Hct 27.1 L MCV 78.3 L MCH 29.5 MCHC 37.6 H RDW Std Deviation 37.3 RDW Coeff of Cathleen 13.2 Plt Count 257 MPV 9.3 Sodium 106 L* 107 L* Potassium 3.5 3.3 Chloride 73 L* 72 L* Carbon Dioxide 21.6 21.3 Anion Gap 12 14 BUN 21 H 22 H Creatinine 1.06 1.04 Estim Creat Clear Calc 36.18 L 36.88 L Est GFR (MDRD) Non-Af 54 L 55 L BUN/Creatinine Ratio 20.2 H 21.1 H Glucose 121 H 113 H Serum Osmolality Calcium 8.7 8.4 Total Bilirubin 0.44 AST 21 ALT 23 Alkaline Phosphatase 76 Troponin T High Sens 20 H Troponin T Hi Sens 2 Hr NT pro BNP II 5274 H Total Protein 6.2 Albumin 3.9 Globulin 2.3 Albumin/Globulin Ratio 1.7 Triglycerides Cholesterol LDL Cholesterol, Calc VLDL Cholesterol HDL Cholesterol Cholesterol/HDL Ratio TSH Cortisol PM Sample Urine Color Yellow Urine Clarity Sl. Cloudy Urine pH 7.0 Ur Specific [place] 1.010 Urine Protein 15 H Urine Glucose (UA) Normal Urine Ketones 5 H Urine Occult Blood Negative Urine Nitrite Negative Urine Bilirubin Negative Urine Urobilinogen Normal Ur Leukocyte Esterase 500 H Urine RBC 0 SEEN Urine WBC 0-5 SEEN Ur Squamous Epith Cells 0-5 SEEN Urine Bacteria 0 SEEN Urine Mucus 0 SEEN Urine Osmolality 371 Ur Random Sodium 84 Urine Creatinine 43.90 Urine Potassium 36.9 Urine Chloride 80 Urine Urea Nitrogen 358 05/29/25 05/29/25 15:18 15:50 WBC RBC Hgb Hct MCV MCH MCHC RDW Std Deviation RDW Coeff of Cathleen Plt Count MPV Sodium Potassium Chloride Carbon Dioxide Anion Gap BUN Creatinine Estim Creat Clear Calc Est GFR (MDRD) Non-Af BUN/Creatinine Ratio Glucose Serum Osmolality 236 L Calcium Total Bilirubin AST ALT Alkaline Phosphatase Troponin T High Sens Troponin T Hi Sens 2 Hr 17 H NT pro BNP II Total Protein Albumin Globulin Albumin/Globulin Ratio Triglycerides 96 Cholesterol 170 LDL Cholesterol, Calc 82 VLDL Cholesterol 19 HDL Cholesterol 68 Cholesterol/HDL Ratio 2.49 TSH 0.701 Cortisol PM Sample 18.30 H Urine Color Urine Clarity Urine pH Ur Specific [place] Urine Protein Urine Glucose (UA) Urine Ketones Urine Occult Blood Urine Nitrite Urine Bilirubin Urine Urobilinogen Ur Leukocyte Esterase Urine RBC Urine WBC Ur Squamous Epith Cells Urine Bacteria Urine Mucus Urine Osmolality Ur Random Sodium Urine Creatinine Urine Potassium Urine Chloride Urine Urea Nitrogen Radiography Diagnostic Testing: Clinical Impression(s) from Imaging Studies Brain CT 05/29/25 13:18 IMPRESSION: 1. Generalized brain atrophy. 2. Small vessel ischemic/degenerative changes. 3. No acute intracranial hemorrhage, midline shift or mass effect. If symptoms persist, further evaluation with MRI is recommended. Reading Location: [facility] Chest X-Ray 05/29/25 13:30 IMPRESSION: Left basilar atelectasis or pneumonia. Reading Location: [facility] Discharge Plan Disposition Disposition: Acute Care Hospital [facility] Discharge Date/Time: 05/29/25 16:40 What to do if you have Problems For any increased pain, shortness of breath, bleeding, nausea or vomiting, chestpain, or any unexpected problems, contact your Primary Care Provider. Call [facility] ([phone]) or report to the closest Emergency Room. Call 911 if necessary. 05/29/25 1808 <Electronically signed by Del Leyva DO> Cosigner Signature (if applicable): CC: Dr. Glenny Luque MD ~ Signed [facility] Work Phone: 1(791) 285-972907-26-2025 History and physical note Author Conchita Burns [facility] Note Date/Time May 29, 2025 4:42 pm [facility] Medical Records Department [address] [place] [address] H&P Exam - Hospitalist 05/29/25 1621 MR#: [id number] Acct: [id number] Name: ALVARADO COHEN CALLI Rep #:[id number] : 1945 79 From: Conchita Burns MD PCP: Dr. Glenny Luque MD Status:AD M IN Location: ICU ICU03-1 HPI - General General Date of Admission: 05/29/25 Date of Service: 05/29/25 Chief Complaint: Weakness, lightheadedness, generally feeling unwell HPI Narrative ALVARADO COHEN, is a 79-year-old female history of hypertension and renal artery stenosis presented [facility] ED 05/29/2025 with increased shortness of breath, swelling, dizziness and weakness for 4 days. Occasional dizziness with standing but denies headache. No falls or trauma and reports compliance with her antihypertensives. In the ED temp 97.8, heart rate of 68 and blood pressure 185/54, respiratory rate 18 and pulse ox 96% on room air. CBC with white blood cell count of 8.6, hemoglobin 10.2. UA not suggestive of infection, proBNP elevated at 5274 and troponin 20. CMP however revealed a sodium of 106, potassium of 3.5, chloride of 73 and BUN of 21 with a creatinine of 1.06. Glucose 121 and liver profile within normal limits. Hospitalist contacted for admission for patient's significant hyponatremia. Patient evaluated at bedside. She reports that she has been feeling a little bit unwellover the past couple of weeks and she had her cataract surgery canceled due to her hypertension so her outpatient asset analyst who she said is Dr. Nora Erazo adjusted her blood pressure medicines adding a medicine to her regimen butshe does not recall the name, she did not do very well on this so Saturday that was discontinued and her hydralazine was increased from 50 mg 3 times daily to 100 mg 3 times daily that she said after that symptoms worsened. She has felt generally unwell with generalized weakness and some lightheadedness when standing. Reports she did get some swelling in her lower extremities on the medication that was added to her regimen but this is resolved since that medication was discontinued. Reports some chronic cough but she is a smoker butdenies that there has been any change in cough, has been somewhat short of breath during this time period. She denies any headache or fever, has some blurry vision but said she was due for cataract surgery and it was canceled, does not note acute change. No chest pain, no new bowel changes including no diarrhea, no changes in urination reported, no abdominal pain or vomiting. Doesfeel slightly better at time of evaluation than she did earlier today but still feels very weak and just generally not well. Did note that she was told before that she has low sodium within the past few months but she is not sure what the number was [facility] Medical History Renal artery stenosis HTN (hypertension) Home Medications ?Medication ?Instructions ?Recorded ?Last Taken ?Type amlodipine 10 mg tablet 10 mg PO DAILY 03/21/2305/05 History chlorthalidone 25 mg tablet 25 mg PO QDAY 08/27/24 History metoprolol succinate 50 mg 50 mg PO BID 08/27/2405/29 History tablet,extended release 24 hr hydralazine 25 mg tablet 25 mg PO BID high blood pres sure 10/06/24 05/29/25 History lisinopril 30 mg tablet 30 mg PO BID High blood pres sure 10/06/24 05/29/25 History Allergy/AdvReac Type Severity Reaction Status Date / Time codeine Allergy PT UNSURE Verified 05/29/25 12:50 OF REACTION Sulfa (Sulfonamide Allergy Rash Verified 05/29/25 12:50 Antibiotics) (sulfa drugs) Family History Other Asthma Cancer Hypertension Surgical History H/O cone biopsy of cervix (~1977) Social History Smoking Status: Heavy Smoker (>10/day) Tobacco: How many years used: 40 quit status: considering quitting ROS ROS Narrative General: Denies fever/chills HENT: Denies headache, denies stuffy nose, denies sore throat EYES: Has some chronic blurry vision, she does not necessarily think that this is changed acutely Resp: Slight chronic cough without any change, has noted some shortness of breath Cardiac: Denies chest pain GI: Denies abdominal pain, denies acute changes in bowel, denies nausea/vomiting : Denies changes in urination Extremity: Did have swelling in ankles with blood pressure medication change butsince this was stopped last week this is resolved MSK: Generalized weakness Neuro: Denies any numbness/tingling, some lightheadedness on standing Heme: Denies any bleeding or bruising Skin: Denies rashes Psychiatric: No complaints voiced Vital Signs Vital Signs Vital Signs: 05/29/25 12:48 05/29/25 14:01 05/29/25 14:04 Temperature 97.8 F Temperature Source Oral Pulse Rate 68 65 Respiratory Rate 18 Respiratory Effort Normal Non-Labored Blood Pressure 185/54 H 197/56 H Blood Pressure Mean 97 103 Pulse Ox 96 99 Oxygen Delivery Method Room Air Room Air 05/29/25 14:13 05/29/25 15:33 05/29/25 16:00 Temperature 97.8 F Temperature Source Pulse Rate 64 70 68 Respiratory Rate 13 17 13 Respiratory Effort Blood Pressure 169/54 H 186/63 H 198/61 H Blood Pressure Mean 92 104 106 Pulse Ox 97 97 97 Oxygen Delivery Method Room Air Room Air Weight Weight: 55.48 kg Body Mass Index (BMI) 21.7 Physical Exam Narrative General: Alert, slow to answer questions but does answer them, no apparent distress HEENT: Atraumatic, normocephalic Eyes: Anicteric, normal conjunctiva, extraocular movements grossly intact Neck: Supple Respiratory: Slight crackles at bilateral bases, normal respiratory effort Cardiovascular: Regular rate and rhythm GI: Soft, nontender, nondistended Extremities: No edema Musculoskeletal: Moving all extremities Neuro: No overt focal neurological deficits Skin: No rashes appreciated Psych: Cooperative Results Lab / Micro Data 05/29/25 13:25 05/29/25 14:39 Labs: Laboratory Results - last 24 hr 05/29/25 13:25: WBC 8.6, RBC 3.46 L, Hgb 10.2 L, Hct 27.1 L, MCV 78.3 L, MCH 29.5, MCHC 37.6 H, RDW Std Deviation 37.3, RDW Coeff of Cathleen 13.2, Plt Count 257,MPV 9.3, Sodium 106 L*, Potassium 3.5, Chloride 73 L*, Carbon Dioxide 21.6, Anion Gap 12, BUN 21 H, Creatinine 1.06, Estim Creat Clear Calc 36.18 L, Est GFR(MDRD) Non-Af 54 L, BUN/Creatinine Ratio 20.2 H, Glucose 121 H, Calcium 8.7, Total Bilirubin 0.44, AST 21, ALT 23, Alkaline Phosphatase 76, Troponin T High Sens 20 H, NT pro BNP II 5274 H, Total Protein 6.2, Albumin 3.9, Globulin 2.3, Albumin/Globulin Ratio 1.7 05/29/25 14:00: Urine Color Yellow, Urine Clarity Sl. Cloudy, Urine pH 7.0, Ur Specific [place] 1.010, Urine Protein 15 H, Urine Glucose (UA) Normal, Urine Ketones 5 H, Urine Occult Blood Negative, Urine Nitrite Negative, Urine Bilirubin Negative, Urine Urobilinogen Normal, Ur Leukocyte Esterase 500 H, Urine RBC 0 SEEN, Urine WBC 0-5 SEEN, Ur Squamous Epith Cells 0-5 SEEN, Urine Bacteria 0 SEEN, Urine Mucus 0 SEEN, Ur Random Sodium 84, Urine Creatinine 43.90, Urine Potassium 36.9, Urine Chloride 80, Urine Urea Nitrogen 358 05/29/25 14:39: Sodium 107 L*, Potassium 3.3, Chloride 72 L*, Carbon Dioxide 21.3, Anion Gap 14, BUN 22 H, Creatinine 1.04, Estim Creat Clear Calc 36.88 L, Est GFR (MDRD) Non-Af 55 L, BUN/Creatinine Ratio 21.1 H, Glucose 113 H, Calcium 8.4 05/29/25 15:18: Troponin T Hi Sens 2 Hr 17 H Imaging Radiology Impression Brain CT 05/29/25 13:18 IMPRESSION: 1. Generalized brain atrophy. 2. Small vessel ischemic/degenerative changes. 3. No acute intracranial hemorrhage, midline shift or mass effect. If symptoms persist, further evaluation with MRI is recommended. Reading Location: [facility] Chest X-Ray 05/29/25 13:30 IMPRESSION: Left basilar atelectasis or pneumonia. Reading Location: [facility] Assessment & Plan Assessment/Plan (1) Hyponatremia: PLAN: Plan # Severe hyponatremia of unclear chronicity - Sodium 106 in the ED but last value available was in 2023 and was 136 the patient notes she had lab work sometime in the last few months that showed somewhat low sodium but she does not know the number - Glucose within normal limits at 121 - BNP is elevated but does not have peripheral edema or appear profoundly overloaded, awaiting further workup, will obtain echo given these results -When discussed with ED physician it was felt that the may be elevated due to strain from her significant hypertension - Will check serum osmolality - Check urine studies - Will check TSH -Random cortisol - Will check lipid panel - Hold home thiazide - Trend BMP - Monitor patient in the ICU -Monitor I's and O's -Fluid restrict while awaiting lab workup and then will discuss with nephrology for further management - Chest x-ray queried left lower lobe atelectasis versus pneumonia, patient's had some shortness of breath that is merit her other symptoms but without any fever, change in cough or elevated white blood cell count, do not think presentation is consistent with pneumonia #Hypertension - Hold chlorthalidone -Given the significance of patient's hypertension we will continue the other antihypertensives while awaiting further workup, suspect chlorthalidone would have most influence on her sodium -She does note her hydralazine was just increased to 100 mg 3 times daily on Saturday # Renal artery stenosis -Has followed with Dr. Mei, unsuccessful stenting in the past -Continue outpatient follow-up #Tobacco use -Advise cessation -Nicotine replacement available if desired, presently does not want one when asked in ED #DVT ppx: Lovenox subcu Conchita Burns MD Charges/Coding Visit Charges Inpatient E&M: 52912 Init Hosp L2 05/29/25 1642 <Electronically signed by Conchita Burns MD> Cosigner Signature (if applicable): CC: Dr. Glenny Luque MD; Dr. Conchita Burns MD~ Signed [facility] Work Phone: 1(901) 676-770507-26-2025 Evaluation note* Diagnosis Onset Date Resolution Status Admit Date Acute anemia acute May 29, 2 025 4:23pm ANTONINO (acute kidney injury) acute May 29, 2025 4:23pm GI bleed acute May 29 4:23pm Hypo-osmolar hyponatremia acute May 29, 2025 4:23pm Hypokalemia acute May 29 4:23pm Hypomagnesemia acute May 29, 2025 4:23pm Hyponatremia acute May 29, 2 025 4:23pm Hypotension acute May 29 4:23pm Lower extremity weakness acute May 29, 2025 4:23pm Paresthesia of lower extremity acute May 29, 2025 4:23pm Uncontrolled hypertension acute May 29, 2025 4:23pm Renal artery stenosis chronic Patrick y 2024 4:23pm Anemia deleted May 29 4:23pm [facility] Work Phone: 1(186) 699-410407-26-2025 Progress note [facility] Medical Records Department [address] [place] [address] Progress Note - Hospitalist 05/29/251809 MR#: [id number] Acct: [id number] Name: ALVARADO COHEN CALLI Rep #:[id number] : 1945 79 From: Conchita Burns MD PCP: Dr. Glenny Luque MD Status:AD M IN Location: ICU ICU03-1 Hospitalist Note Discussed with nephrology, given patient's serum and urine osmolalities and urine sodium/full workup, fluid restriction of 1200 cc was advised with no need for fluids or hypertonic saline at this time unless clinical status were to change. Chlorthalidone held. Nephrology will see in consultation 05/29/251810 Cosigner Signature (if applicable): CC: ~ Signed [facility]07-26-2025 Discharge summary [facility] Medical Records Department [address] [place] [address] Emergency Department Summary 05/29/25 MR#: [id number] Acct: [id number] Name: ALVARADO COHEN CALLI Rep #:[id number] : 1945 79 From: Del Pettit PCP: Dr. Glenny Luque MD Status:AD M IN Location: ICU ICU03-1 HPI History of Present Illness Chief Complaint: General Illness [facility] Medical History Renal artery stenosis HTN (hypertension) Home Medications ?Medication ?Instructions ?Recorded ?Last Taken ?Type amlodipine 10 mg tablet 10 mg PO DAILY 03/21/2305/05 History chlorthalidone 25 mg tablet 25 mg PO QDAY 08/27/24 History metoprolol succinate 50 mg 50 mg PO BID 08/27/2405/29 History tablet,extended release 24 hr hydralazine 25 mg tablet 25 mg PO BID high blood pres sure 10/06/24 05/29/25 History lisinopril 30 mg tablet 30 mg PO BID High blood pres sure 10/06/24 05/29/25 History Allergy/AdvReac Type Severity Reaction Status Date / Time codeine Allergy PT UNSURE Verified 05/29/25 12:50 OF REACTION Sulfa (Sulfonamide Allergy Rash Verified 05/29/25 12:50 Antibiotics) (sulfa drugs) Family History Other Asthma Cancer Hypertension Surgical History H/O cone biopsy of cervix (~1977) Social History Smoking Status: Light Smoker (<10/day) Tobacco: How many years used: 40 quit status: considering quitting EXAM Physical Exam Const Vital Signs: 05/29/25 12:48 05/29/25 14:01 05/29/25 14:04 Temperature 97.8 F Temperature Source Oral Pulse Rate 68 65 Respiratory Rate 18 Respiratory Effort Normal Non-Labored Blood Pressure 185/54 H 197/56 H Blood Pressure Mean 97 103 Pulse Ox 96 99 Oxygen Delivery Method Room Air Room Air 05/29/25 14:13 05/29/25 15:33 05/29/25 16:00 Temperature 97.8 F Temperature Source Pulse Rate 64 70 68 Respiratory Rate 13 17 13 Respiratory Effort Blood Pressure 169/54 H 186/63 H 198/61 H Blood Pressure Mean 92 104 106 Pulse Ox 97 97 97 Oxygen Delivery Method Room Air Room Air MDM MDM MDM Narrative Medical decision making narrative: HISTORY OF PRESENT ILLNESS: Chief complaint: 79year-old female history of hypertension, renal artery stenosis presents with shortness of breath associated with swelling, dizziness and weakness. Notes this began 4 days ago. Endorses history of renal artery stenosis. Denies headache but notes occasional dizziness specifically with standing. Notes compliance with home antihypertensives. Denies any falls or trauma. She deniesany chest pain but notes some shortness of breath specifically with exertion. While swelling was endorsed in the triagenote the patient denies lower extremity edema. Denies cough fever or chills. The patient denies recent surgery in the last 4 weeks or immobilization in the last 3 days, denies previous diagnosis of DVT or PE, hemoptysis, unilateral leg swelling or malignancy with treatment the last 6 months or palliative. No estrogen use noted. Denies any bleeding diathesis REVIEW OF SYSTEMS: Pertinent positives: Shortness of breath, dizziness and weakness Pertinent negatives: Syncope, headache PHYSICAL EXAM: Nursing triage notes reviewed, Vital signs reviewed Constitutional: please see [facility] HENT: MMM Eyes: Pupils equal round and reactive to light, Extraocular muscles intact Neck: No stridor, no JVD, full neck ROM Lungs: Clear to auscultation, No wheezing or rales. No increased work of breathing, no conversational dyspnea, no accessory muscle use, no nasal flaring. No respiratory distress noted Heart: Regular rate and rhythm, No murmurs, No rubs and No gallops, 2+ distal pulses (radial, femoral, posterior tibial) in all extremities Abdomen: Soft, there is no tenderness, rigidity, rebound or guarding, no obviousperitoneal signs, no palpable pulsatile abdominal masses, no auscultated abdominal bruit : No CVAT Extremities: No edema Neuro: Alert and oriented x3, neuro exam at baseline, cranial nerves II through XII are intact. No pain with extraocular muscle movement. There is negative test of skew. 5 of 5 strength in upper and lower extremities in flexion extension. Intact sensation to light touch in upper and lower extremitydermatomes. No truncal or extremity ataxia. No dysdiadochokinesia. Normal gait. 2+ reflexes in upper and lower extremities. No meningeal signs. Negative Babinski. NIH of 0. Skin: No rash or lesions noted MEDICAL DECISION MAKING: Chief Complaint: please see [facility] External records reviewed: Reviewed prior vascular surgery operation. Reviewed prior cardiovasculartesting. No recent echocardiograms noted in [facility] Factors affecting care: As per [facility] Social determinants of health: none History obtained from others: Consults: internal medicine (Dr. Burns) [facility] Narrative: The patient was initially hypertensive with a blood pressure 185/54 otherwise afebrile and nontoxic-appearing. Exam without focal I considered the following differential diagnosis: ICH, anemia, elec electrolytedisturbance, endorgan damage from elevated blood pressure, ACS, CHF exacerbation I obtained a broad lab and imaging workup to further determine if the patient was suffering from a life-threatening etiology. Initially treat the patient with IV labetalol to lower blood pressure. ALL IMAGES (IF OBTAINED) HAVE BEEN PERSONALLY REVIEWED AND INTERPRETED BY MYSELF. CBC with no leukocytosis, noted mild anemia but no thrombocytopenia noted BMP with hyponatremia, no hypokalemia, no anion gap, no metabolic acidosis Mild FTs High-sensitivity troponin is negative, no evidence of myocardial ischemiax3 Initial BNP elevated consistent with volume overload Urinalysis shows no evidence of urinary inflammation suggestive of UTI The synthesis of the patient's history, physical exam, labs images suggest severe electrolyte abnormalities as the precipitating cause. Repeat neurologic remained intact. No sign of seizure at this time. Given profound hyponatremia will admit the patient to ICU. Discussed with Dr. Burns. The patient and/or family, caregivers express understanding. The patient and/orfamily, caregivers agrees with the plan. Shared decision making: I will have a discussion with the patient and or visitors regarding risk/benefits of further testing or admission. They will be made aware of of the risk/benefits inherent in this decision they will be given the opportunity to voice understanding. Total critical care time today provided was at least 60 minutes. This excludes separately billable procedures. Critical care time (if documented) is secondary to the patient having high probability of clinically significant/life threatening deterioration in the patient's condition which required myurgent intervention. Impression: 1. Hyponatremia 2. Diffuse weakness 3. Poorly controlled hypertension Dispo: Admit to ICU This note was generated with Sofe[employer] dictation software. It may contain incorrectwords, spelling, and punctuation that were not noted in review of the chart prior to signing. Lab Data Labs: Laboratory Results - last 24 hr 05/29/25 05/29/25 05/29/25 13:25 14:00 14:39 WBC 8.6 RBC 3.46 L Hgb 10.2 L Hct 27.1 L MCV 78.3 L MCH 29.5 MCHC 37.6 H RDW Std Deviation 37.3 RDW Coeff of Cathleen 13.2 Plt Count 257 MPV 9.3 Sodium 106 L* 107 L* Potassium 3.5 3.3 Chloride 73 L* 72 L* Carbon Dioxide 21.6 21.3 Anion Gap 12 14 BUN 21 H 22 H Creatinine 1.06 1.04 Estim Creat Clear Calc 36.18 L 36.88 L Est GFR (MDRD) Non-Af 54 L 55 L BUN/Creatinine Ratio 20.2 H 21.1 H Glucose 121 H 113 H Serum Osmolality Calcium 8.7 8.4 Total Bilirubin 0.44 AST 21 ALT 23 Alkaline Phosphatase 76 Troponin T High Sens 20 H Troponin T Hi Sens 2 Hr NT pro BNP II 5274 H Total Protein 6.2 Albumin 3.9 Globulin 2.3 Albumin/Globulin Ratio 1.7 Triglycerides Cholesterol LDL Cholesterol, Calc VLDL Cholesterol HDL Cholesterol Cholesterol/HDL Ratio TSH Cortisol PM Sample Urine Color Yellow Urine Clarity Sl. Cloudy Urine pH 7.0 Ur Specific [place] 1.010 Urine Protein 15 H Urine Glucose (UA) Normal Urine Ketones 5 H Urine Occult Blood Negative Urine Nitrite Negative Urine Bilirubin Negative Urine Urobilinogen Normal Ur Leukocyte Esterase 500 H Urine RBC 0 SEEN Urine WBC 0-5 SEEN Ur Squamous Epith Cells 0-5 SEEN Urine Bacteria 0 SEEN Urine Mucus 0 SEEN Urine Osmolality 371 Ur Random Sodium 84 Urine Creatinine 43.90 Urine Potassium 36.9 Urine Chloride 80 Urine Urea Nitrogen 358 05/29/25 05/29/25 15:18 15:50 WBC RBC Hgb Hct MCV MCH MCHC RDW Std Deviation RDW Coeff of Cathleen Plt Count MPV Sodium Potassium Chloride Carbon Dioxide Anion Gap BUN Creatinine Estim Creat Clear Calc Est GFR (MDRD) Non-Af BUN/Creatinine Ratio Glucose Serum Osmolality 236 L Calcium Total Bilirubin AST ALT Alkaline Phosphatase Troponin T High Sens Troponin T Hi Sens 2 Hr 17 H NT pro BNP II Total Protein Albumin Globulin Albumin/Globulin Ratio Triglycerides 96 Cholesterol 170 LDL Cholesterol, Calc 82 VLDL Cholesterol 19 HDL Cholesterol 68 Cholesterol/HDL Ratio 2.49 TSH 0.701 Cortisol PM Sample 18.30 H Urine Color Urine Clarity Urine pH Ur Specific [place] Urine Protein Urine Glucose (UA) Urine Ketones Urine Occult Blood Urine Nitrite Urine Bilirubin Urine Urobilinogen Ur Leukocyte Esterase Urine RBC Urine WBC Ur Squamous Epith Cells Urine Bacteria Urine Mucus Urine Osmolality Ur Random Sodium Urine Creatinine Urine Potassium Urine Chloride Urine Urea Nitrogen Radiography Diagnostic Testing: Clinical Impression(s) from Imaging Studies Brain CT 05/29/25 13:18 IMPRESSION: 1. Generalized brain atrophy. 2. Small vessel ischemic/degenerative changes. 3. No acute intracranial hemorrhage, midline shift or mass effect. If symptoms persist, further evaluation with MRI is recommended. Reading Location: [facility] Chest X-Ray 05/29/25 13:30 IMPRESSION: Left basilar atelectasis or pneumonia. Reading Location: [facility] Discharge Plan Disposition Disposition: Acute Care Hospital [facility] Discharge Date/Time: 05/29/25 16:40 What to do if you have Problems For any increased pain, shortness of breath, bleeding, nausea or vomiting, chestpain, or any unexpected problems, contact your Primary Care Provider. Call [facility] ([phone]) or report tothe closest Emergency Room. Call 911 if necessary. 05/29/25 1808 Cosigner Signature (if applicable): CC: Dr. Glenny Luque MD ~ Signed [facility]07-26-2025 History and physical note [facility] Medical Records Department [address] [place] [address] H&P Exam - Hospitalist 05/29/25 1621 MR#: [id number] Acct: [id number] Name: ALVARADO COHEN CALLI Rep #:[id number] : 1945 79 From: Conchita Burns MD PCP: Dr. Glenny Luque MD Status:AD M IN Location: ICU ICU03-1 HPI - General General Date of Admission: 05/29/25 Date of Service: 05/29/25 Chief Complaint: Weakness, lightheadedness, generally feeling unwell HPI Narrative ALVARADO COHEN, is a 79-year-old female history of hypertension and renal artery stenosis presented [facility] ED 05/29/2025 with increased shortness of breath, swelling, dizziness and weakness for 4 days. Occasional dizziness with standing but denies headache. No falls or trauma and reports compliance with her antihypertensives. In the ED temp 97.8, heart rate of 68 and blood pressure 185/54, respiratory rate 18 and pulse ox 96% on room air. CBC with white blood cell count of 8.6, hemoglobin 10.2. UA not suggestive of infection, proBNP elevated at 5274 and troponin 20. CMP however revealed a sodium of 106, potassium of 3.5, chloride of 73 and BUN of 21 with a creatinine of 1.06. Glucose 121 and liver profile within normal limits. Hospitalist contacted for admission for patient's significant hyponatremia. Patient evaluated at bedside. She reports that she has been feeling a little bit unwellover the past couple of weeks and she had her cataract surgery canceled due to her hypertension so her outpatient asset analyst who she said is Dr. Nora Erazo adjusted her blood pressure medicines adding a medicine to her regimen butshe does not recall the name, she did not do very well on this so Saturday that was discontinued and her hydralazine was increased from 50 mg 3 times daily to 100 mg 3 times daily that she said after that symptoms worsened. She has felt generally unwell with generalized weakness and some lightheadedness when standing. Reports she did get some swelling in her lower extremities on the medication that was added to her regimen but this is resolvedsince that medication was discontinued. Reports some chronic cough but she is a smoker butdenies that there has been any change in cough, has been somewhat short of breath during this time period. She denies any headache or fever, has some blurry vision but said she was due for cataract surgery andit was canceled, does not note acute change. No chest pain, no new bowel changes including no diarrh ea, no changes in urination reported, no abdominal pain or vomiting. Doesfeel slightly better at time of evaluation than she did earlier today but still feels very weak and just generally not well. Did note that she was told before that she has low sodium within the past few months but she is not sure what the number was PFS Medical History Renal artery stenosis HTN (hypertension) Home Medications ?Medication ?Instructions ?Recorded ?Last Taken ?Type amlodipine 10 mg tablet 10 mg PO DAILY 03/21/2305/05 History chlorthalidone 25 mg tablet 25 mg PO QDAY 08/27/24 History metoprolol succinate 50 mg 50 mg PO BID 08/27/2405/29 History tablet,extended release 24 hr hydralazine 25 mg tablet 25 mg PO BID high blood pres sure 10/06/24 05/29/25 History lisinopril 30 mg tablet 30 mg PO BID High blood pres sure 10/06/24 05/29/25 History Allergy/AdvReac Type Severity Reaction Status Date / Time codeine Allergy PT UNSURE Verified 05/29/25 12:50 OF REACTION Sulfa (Sulfonamide Allergy Rash Verified 05/29/25 12:50 Antibiotics) (sulfa drugs) Family History Other Asthma Cancer Hypertension Surgical History H/O cone biopsy of cervix (~1977) Social History Smoking Status: Heavy Smoker (>10/day) Tobacco: How many years used: 40 quit status: considering quitting ROS ROS Narrative General: Denies fever/chills HENT: Denies headache, denies stuffy nose, denies sore throat EYES: Has some chronic blurry vision, she does not necessarily think that this is changed acutely Resp: Slight chronic cough without any change, has noted some shortness of breath Cardiac: Denies chest pain GI: Denies abdominal pain, denies acute changes in bowel, denies nausea/vomiting : Denies changes in urination Extremity: Did have swelling in ankles with blood pressure medication change butsince this was stopped last week this is resolved MSK: Generalized weakness Neuro: Denies any numbness/tingling, some lightheadedness on standing Heme: Denies any bleeding or bruising Skin: Denies rashes Psychiatric: No complaints voiced Vital Signs Vital Signs Vital Signs: 05/29/25 12:48 05/29/25 14:01 05/29/25 14:04 Temperature 97.8 F Temperature Source Oral Pulse Rate 68 65 Respiratory Rate 18 Respiratory Effort Normal Non-Labored Blood Pressure 185/54 H 197/56 H Blood Pressure Mean 97 103 Pulse Ox 96 99 Oxygen Delivery Method Room Air Room Air 05/29/25 14:13 05/29/25 15:33 05/29/25 16:00 Temperature 97.8 F Temperature Source Pulse Rate 64 70 68 Respiratory Rate 13 17 13 Respiratory Effort Blood Pressure 169/54 H 186/63 H 198/61 H Blood Pressure Mean 92 104 106 Pulse Ox 97 97 97 Oxygen Delivery Method Room Air Room Air Weight Weight: 55.48 kg Body Mass Index (BMI) 21.7 Physical Exam Narrative General: Alert, slow to answer questions but does answer them, no apparent distress HEENT: Atraumatic, normocephalic Eyes: Anicteric, normal conjunctiva, extraocular movements grossly intact Neck: Supple Respiratory: Slight crackles at bilateral bases, normal respiratory effort Cardiovascular: Regular rate and rhythm GI: Soft, nontender, nondistended Extremities: No edema Musculoskeletal: Moving all extremities Neuro: No overt focal neurological deficits Skin: No rashes appreciated Psych: Cooperative Results Lab / Micro Data 05/29/25 13:25 05/29/25 14:39 Labs: Laboratory Results - last 24 hr 05/29/25 13:25: WBC 8.6, RBC 3.46 L, Hgb 10.2 L, Hct 27.1 L, MCV 78.3 L, MCH 29.5, MCHC 37.6 H, RDWStd Deviation 37.3, RDW Coeff of Cathleen 13.2, Plt Count 257,MPV 9.3, Sodium 106 L*, Potassium 3.5, Chloride 73 L*, Carbon Dioxide 21.6, Anion Gap 12, BUN 21 H, Creatinine 1.06, Estim Creat Clear Calc 36.18 L, Est GFR(MDRD) Non-Af 54 L, BUN/Creatinine Ratio 20.2 H, Glucose 121 H, Calcium 8.7, Total Bilirubin 0.44, AST 21, ALT 23, Alkaline Phosphatase 76, Troponin T High Sens 20 H, NT pro BNP II 5274 H, Total Protein 6.2, Albumin 3.9, Globulin 2.3, Albumin/Globulin Ratio 1.7 05/29/25 14:00: Urine Color Yellow, Urine Clarity Sl. Cloudy, Urine pH 7.0, Ur Specific [place] 1.010, Urine Protein 15 H, Urine Glucose (UA) Normal, Urine Ketones 5 H, Urine Occult Blood Negative, Urine Nitrite Negative, Urine Bilirubin Negative, Urine Urobilinogen Normal, Ur Leukocyte Esterase 500 H, Urine RBC 0 SEEN, Urine WBC 0-5 SEEN, Ur Squamous Epith Cells 0-5 SEEN, Urine Bacteria 0 SEEN, Urine Mucus 0 SEEN, Ur Random Sodium 84, Urine Creatinine 43.90, Urine Potassium 36.9, Urine Chloride 80, Urine Urea Nitrogen 358 05/29/25 14:39: Sodium 107 L*, Potassium 3.3, Chloride 72 L*, Carbon Dioxide 21.3, Anion Gap 14, BUN 22 H, Creatinine 1.04, Estim Creat Clear Calc 36.88 L, Est GFR (MDRD) Non-Af 55 L, BUN/Creatinine Ratio 21.1 H, Glucose 113 H, Calcium 8.4 05/29/25 15:18: Troponin T Hi Sens 2 Hr 17 H Imaging Radiology Impression Brain CT 05/29/25 13:18 IMPRESSION: 1. Generalized brain atrophy. 2. Small vessel ischemic/degenerative changes. 3. No acute intracranial hemorrhage, midline shift or mass effect. If symptoms persist, further evaluation with MRI is recommended. Reading Location: [facility] Chest X-Ray 05/29/25 13:30 IMPRESSION: Left basilar atelectasis or pneumonia. Reading Location: [facility] Assessment & Plan Assessment/Plan (1) Hyponatremia: PLAN: Plan # Severe hyponatremia of unclear chronicity - Sodium 106 in the ED but last value available was in 2023 and was 136 the patient notes she had lab work sometime in the last few months that showed somewhat low sodium but she does not know the number - Glucose within normal limits at 121 - BNP is elevated but does not have peripheral edema or appear profoundly overloaded, awaiting further workup, will obtain echo given these results -When discussed with ED physician it was felt that the may be elevated due to strain from her significant hypertension - Will check serum osmolality - Check urine studies - Will check TSH -Random cortisol - Will check lipid panel - Hold home thiazide - Trend BMP - Monitor patient in the ICU -Monitor I's and O's -Fluid restrict while awaiting lab workup and then will discuss with nephrology for further management - Chest x-ray queried left lower lobe atelectasis versus pneumonia, patient's had some shortness ofbreath that is merit her other symptoms but without any fever, change in cough or elevated white blood cell count, do not think presentation is consistent with pneumonia #Hypertension - Hold chlorthalidone -Given the significance of patient's hypertension we will continue the other antihypertensives while awaiting further workup, suspect chlorthalidone would have most influence on her sodium -She does note her hydralazine was just increased to 100 mg 3 times daily on Saturday # Renal artery stenosis -Has followed with Dr. Mei, unsuccessful stenting in the past -Continue outpatient follow-up #Tobacco use -Advise cessation -Nicotine replacement available if desired, presently does not want one when asked in ED #DVT ppx: Lovenox subcu Conchita Burns MD Charges/Coding Visit Charges Inpatient E&M: 19782 Init Hosp L2 05/29/25 1642 Cosigner Signature (if applicable): CC: Dr. Glenny Luque MD; Dr. Conchita Burns MD~ Signed [facility]07-26-2025 Radiology Diagnostic study note [facility] [address] [place], [place] [address] Brain/Head without Contrast MR#: [id number] Acct: [id number] Name: ALVARADO COHEN Rep #: [id number] : 1945 F 79 From: Heather Mancia MD PCP: Dr. Glenny Luque MD Status: RE G ER Study:Brain/Head without Contrast Date of Exa m: 05/29/25 Exam# [id number] Ordering Dr: Rena Leyva DO EXAM: CT Head Without Intravenous Contrast CLINICAL INDICATION: DIZZINESS TECHNIQUE: Axial computed tomography images of the head/brain without intravenous contrast. This CTexam was performed using one or more of the following dose reduction techniques: automated exposure control, adjustment of the mA and/or kV according to patient size, and/or use of iterative reconstruction technique. COMPARISON: No relevant prior studies available. FINDINGS: BRAIN AND EXTRA-AXIAL SPACES: The cerebral and cerebellar sulci are prominent consistent with brainatrophy. Areas of decreased attenuation in the deep cerebral white matter are consistent with small vessel ischemic/degenerative changes. No acute intracranial hemorrhage, midline shift or mass effect. If symptoms persist, further evaluation withMRI is recommended. BONES/JOINTS: Unremarkable. No acute fracture. SOFT TISSUES: Unremarkable. SINUSES: Unremarkable as visualized. No acute sinusitis. MASTOID AIR CELLS: Unremarkable as visualized. No mastoid effusion. CT/Brain/Head without Contrast IMPRESSION: 1. Generalized brain atrophy. 2. Small vessel ischemic/degenerative changes. 3. No acute intracranial hemorrhage, midline shift or mass effect. If symptoms persist, further evaluation with MRI is recommended. Reading Location: [facility] CC: Dr. Glenny Luque MD; Dr. Del Leyva DO ~ Accounts Payable Clerk: Signed [facility]07-26-2025 Radiology Diagnostic study note [facility] [address] [place], [place] [address] Chest 1 View (Portable) MR#: [id number] Acct: [id number] Name: ALVARADO COHEN Rep #: [id number] : 1945 F 79 From: Heather Mancia MD PCP: Dr. Glenny Luque MD Status: RE G ER Study:Chest 1 View (Portable) Date of Exam: 05/29/25 Exam# [id number] Ordering Dr: Rena Leyva DO EXAM: XR Chest, 1 View CLINICAL INDICATION: SOB TECHNIQUE: Frontal view of the chest. COMPARISON: No relevant prior studies available. FINDINGS: LUNGS AND PLEURAL SPACES: Left basilar atelectasis or pneumonia. No pneumothorax. HEART: Unremarkable. No cardiomegaly. MEDIASTINUM: Unremarkable. Normal mediastinal contour. BONES/JOINTS: Unremarkable. No acute fracture. RAD/Chest 1 View (Portable) IMPRESSION: Left basilar atelectasis or pneumonia. Reading Location: [facility] CC: Dr. Glenny Luque MD; Dr. Del Leyva DO ~ Accounts Payable Clerk: Signed [facility]06-25-2025 Telephone encounter Note* Telephone Encounter - Shavnone Lopez RN - 04/28/2025 4:34 PM EDT Pt called and is notified of providers message and instructions. Pt voices understanding. Faxed medical consultation form to Dr. Irvin Gallo DMD, MD at fax # [phone] [facility]. Shavonne Lopez RN [facility]06-25-2025 Miscellaneous Notes* Telephone Encounter - Shavonne Lopez RN - 04/28/2025 4:34 PM EDT Pt called and is notified of providers message and instructions. Pt voices understanding. Faxed medical consultation form to Dr. Irvin Gallo DMD, MD at fax # [phone] [facility]. Shavonne Lopez, RN * Telephone Encounter - Glenny Luque MD - 04/27/2025 5:47 PM EDT Form done; she may hold the Fosamax now, and stay off it until healed from the dental surgery. Glenny Luque MD * Telephone Encounter - Tiffanie Ruff MA - 04/22/2025 8:55 AM EDT Type of letter/form/fax request - Medical Consultation Form Form received from fax on 1 floor and placed on MD desk (Dr. Luque) for completion. Completed form needs to be faxed to Dr. Irvin Gallo DMD, MD at [phone] [facility]. Route to [place] when form completed for processing documented in this encounterA[facility]man [facility]06-24-2025 Telephone encounter Note * Telephone Encounter - Glenny Luque MD - 04/27/2025 5:47 PM EDT Form done; she may hold the Fosamax now, and stay off it until healed from the dental surgery. Glenny Luque MD [facility]06-19-2025 Telephone encounter Note* Telephone Encounter - Tiffanie Ruff MA - 04/22/2025 8:55 AM EDT Type of letter/form/fax request - Medical Consultation Form Form received from fax on 1 floor and placed on MD desk (Dr. Luque) for completion. Completed form needs to be faxed to Dr. Irvin Gallo DMD, MD at [phone] [facility]. Route to [place] when form completed for processing [facility]06-04-2025 NoteHNO ID: [id number] Author: FAITH LARKIN MA Service: ? Author Type: Treasury Representative Type: Progress Notes Filed: 04/07/2025 11:53 Note [...] Faith Larkin MA April 07, 2025 11:45 [facility]06-04-2025 History of Present illness Narrative* Faith Larkin MA - 04/07/2025 11:45 AM EDT POPULATION HEALTH NAVIGATION OUTREACH Action/FYI Spoke to [...] 07, 2025 11:45 AM documented in this encounterAultman Alliance [facility]06-04-2025 NotePatient Outreach (NETNAV) NOELALVARADO Atkins ([id number]) 1945 F Date Time Provider Department 04/07/25 FAITH LARKIN NETKHANH During your visit today, we recorded the following information about you: Faith Larkin MA 04/07/2025 11:53 AM Signed POPULATION HEALTH NAVIGATION OUTREACH Action/FYI Spoke to [...] Population Health Navigation Outreach [3910] Cmt: [facility] PCSA Prescriptions as of 04/07/2025 - hydrALAZINE [...] and stay upright for 30 min. - vw-yop-zryii-calcium carb-K1 (WOMEN'S 50 PLUS MULTIVITAMIN) 400 mcg-500 [...] for Encounter Date Provider Department Center 04/07/2025 [id number], KATHY LNETNAV None Encounter Status:Closed by FAITH LARKIN on 04/07/25[facility]05-19-2025 History of Present illness Narrative* Glenny Luque MD - 03/22/2025 3:20 PM EDT Chief Complaint Patient presents with: Follow Up: [...] Pt recently seen by Nephro on 02/24/25, whorecommended increasing Hydralazine 25 mg from TID to [...] tablet by mouth three times a day. ui-rso-dtluj-calcium carb-K1 (WOMEN'S 50 PLUS MULTIVITAMIN) 400 mcg-500 [...] Moderate Glenny Luque MD documented in this encounterAultman Alliance [facility] Hospital05-19-2025 NoteHNO ID: [id number] Author: GLENNY LUQUE MD Service: ? Author [...] tablet by mouth three times a day. zm-pbd-zeult-calcium carb-K1 (WOMEN'S 50 PLUS MULTIVITAMIN) 400 mcg-500 [...] ICD10: I10 (primary diagnosi (more content not included)...[facility]04-30-2025 NoteHNO ID: [id number] Author: FAITH LARKIN MA Service: ? Author Type: Treasury Representative Type: Progress Notes Filed: 03/03/2025 15:03 Note Text: POPULATION HEALTH NAVIGATION OUTREACH Action/FYI Spoke with Alvarado. Rescheduled follow visit Topic Due (Y or N) Comments Medicare Wellness PCP Follow up y Around end of February Colorectal Cancer Screening Controlling Blood Pressure y [...] Faith Larkin MA March 03, 2025 2:[facility] History of Present illness Narrative* Faith Larkin MA - 03/03/2025 2:47 PM EDT POPULATION HEALTH NAVIGATION OUTREACH Action/FYI Spoke with Alvarado. Rescheduled follow visit Topic Due (Y or N) Comments Medicare Wellness PCP Follow up y Around end february Colorectal Cancer Screening Controlling Blood Pressure y A1C HCC Flu Vaccine Care Everywhere Reviewed Gumiy[employer] Activation Updated Appointment Note Reason for Outreach Care Gap/HCC or Scheduling Wellness Visits Care Gaps due: Follow-up Appointment Controlling Blood Pressure Patient Contacted: Spoke to patient/parent/or legal guardian Patient identified by name and : Yes Care Gap/HCC/Scheduling Wellness actions taken: Patient scheduled/pended orders: Follow-up Appointment Controlling Blood Pressure Navigation Signature: Faith Larkin MA March 03, 2025 2:47 PM documented in this encounterAultman [facility]04-30-2025 NotePatient Outreach (NETNAV) NOELALVARADO ([id number]) 1945 F Date Time Provider Department 03/03/25 FAITH LAKRINV During your visit today, we recorded the [...] Visit: Population Health Navigation Outreach [3910] Cmt: [facility] PCSA Prescriptions as of 03/04/2025 - amLODIPine [...] by mouth three times a day. - ru-dmy-qvssb-calcium carb-K1 (WOMEN'S 50 PLUS MULTIVITAMIN) 400 mcg-500 [...] 03/23/2015 Encounter Status:Closed by FAITH LARKIN on 03/03/25[facility]03-24-2025 Telephone encounter Note* Telephone Encounter - Oumou Driscoll - 01/25/2025 9:44 AM EDT Patient contacted pharmacy and requests refills as [...] and date of : Yes Oumou Thompson [facility]03-24-2025 Miscellaneous Notes* Telephone Encounter - Oumou Driscoll - 01/25/2025 9:44 AM EDT Patient contacted pharmacy and requests refills as [...] name and date of : Yes Oumou Gladis Thompson documented in this encounterAultman Alliance [facility] Hospital03-03-2025 Progress note* Result Encounter Note - Leeanne Sterling MA - 01/04/2025 6:09 PM EST Rx's have been sent. Leeanne Sterling MA [facility]03-03-2025 Miscellaneous Notes* Result Encounter Note - Leeanne Sterling MA - 01/04/2025 6:09 PM EST Rx's have been sent. Leeanne Sterling MA * Result Encounter Note - Glenny Luque MD - 01/04/2025 5:57 PM EST OK to refill as ordered Glenny Luque MD * Result Encounter Note - Leeanne Sterling MA - 01/04/2025 5:20 PM EST Call to pt and notified her of results and recommendations from Provider. Pt asking about side effects of Fosamax. Pt agreeable to taking, please sent to [facility]. Spoke with PCP - GI upset, cause some jaw/bone issues, notified pt of this. Is due for refills that need sent to [facility] - Lisinopril and Chlorthalidone. Rx's pended. Leeanne Sterling MA * Telephone Encounter - Glenny Luque MD - 01/04/2025 2:04 PM EST Please notify patient that her bone density test does show osteoporosis in her femoral necks, with an increased risk of having hip fracture. She would be a candidate to start on weekly Fosamax pills;I can send Rx to whatever pharmacy she uses if she is willing to start this. Glenny Luque MD documented in this encounterAultman Alliance [facility] Hospital03-03-2025 Progress note* Result Encounter Note - Glenny Luque MD - 01/04/2025 5:57 PM EST OK to refill as ordered Glenny Luque MD [facility]03-03-2025 Progress note* Result Encounter Note - Leeanne Sterling MA - 01/04/2025 5:20 PM EST Call to pt and notified her of results and recommendations from Provider. Pt asking about side effects of Fosamax. Pt agreeable to taking, please sent to [facility]. Spoke with PCP - GI upset, cause some jaw/bone issues, notified pt of this. Is due for refills that need sent to [facility] - Lisinopril and Chlorthalidone. Rx's pended. Leeanne Sterling MA [facility]03-03-2025 Telephone encounter Note* Telephone Encounter - Glenny Luque MD - 01/04/2025 2:04 PM EST Please notify patient that her bone density test does show osteoporosis in her femoral necks, with an increased risk of having hip fracture. She would be a candidate to start on weekly Fosamax pills;I can send Rx to whatever pharmacy she uses if she is willing to start this. Glenny Luque MD [facility]02-28-2025 History of Present illness Narrative* Bernabe Flowers RT(R) - 01/01/2025 12:30 PM EST Radiology Service Progress Note PATIENT NAME: Alvarado Cohen DATE OF SERVICE: January 01, 2025 TIME: 12:30 PM PATIENT IDENTITY VERIFICATION COMPLETED USING TWO (2) IDENTIFIERS: Name and Date of confirmedby patient verbally. FALL SCREENING: Has the patient had 2 falls in the last year or 1 fall with injury or currently using an Ambulatory Assistive Device (Walker, Cane, Wheelchair, Crutches, etc.)? No PATIENT GENDER DATA: Assigned female at . status: : No status:NO. PATIENT RELEVANT IMPLANT DATA REVIEWED: Not Applicable PATIENT PRESENTS WITH AN IMPLANTABLE OR ATTACHED SALES SUPPORT ADMINISTRATOR: No RADIOLOGY DEPARTMENT: Bone Density PERIPHERAL IV DATA: Not applicable SIGNED BY: LISETTE Ferro) January 01, 2025 12:30 PM documented in this encounterAultman Alliance [facility] Hospital02-28-2025 NoteHNO ID: [id number] Author: BERNABE FLOWERS RT(R) Service: ? Author [...] PATIENT PRESENTS WITH AN IMPLANTABLE OR ATTACHED SALES SUPPORT ADMINISTRATOR: No RADIOLOGY DEPARTMENT: Bone Density PERIPHERAL IV DATA: Not applicable SIGNED BY: RT Kasie(Lang) January 01, 2025 12:30 [facility]01-23-2025 Instructions* Patient Instructions* Leeanne Sterling MA - 11/26/2024 1:56 PM EST BONE MINERAL DENSITY PATIENT INSTRUCTIONS Bone mineral density testing measures the amount of calcium in certain parts of your bones. This information determines how strong your bones are. The test is used to detect osteoporosis, a disease in which the bone's mineral content and density are low, increasing a person's risk of fractures. Thelumbar spine (lower back) and the hip are [...] your usual activities immediately. documented in this encounterAultman Alliance [facility] Hospital01-23-2025 History of Present illness Narrative* Glenny Luque MD - 11/26/2024 1:20 PM EST Images from the original note were not included. Alvarado Cohen is a 79 year old female here for a Medicare wellness visit. Tobacco - Former 1 ppd smoker, but is making an effort to slow down. Now only smoking 10 cigarettesper day. Doing this on her own. Plans [...] 2 renal arteries in her kidney. One wassmall that had plaque/crystals and this is why a stent couldn't be placed. Attempted to have a renal stent placed on 10/07/24, but was not able too. She's only seen him twice. They recommended she f[facility]with a Provider at [facility] to monitor this [...] PCP - General (Family Medicine) Laurel Toure APRN.AGILE PROJECT MANAGER as Patient Support Representative (Family Medicine) Hans Mccray APRN.CNP as Patient Support Representative (Family Medicine) Porfirio Mei MD - Vascular [...] Past Histories independently gathered by the clinical medical support specialist and the remaining scribed note [...] PM. Leeanne Sterling MA documented in this encounterAultman Alliance [facility]01-23-2025 NoteHNO ID: [id number] Author: GLENNY LUQUE MD Service: ? Author [...] PCP - General (Family Medicine) Laurel Toure APRN.AGILE PROJECT MANAGER as Patient Support Representative (Family Medicine) Hans Mccray APRN.CNP as Patient Support Representative (Family Medicine) Porfirio Mei MD - Vascular [...] - Smoking cessation encou (more content not included)...[facility]12-04-2024 [facility] Medical Records Department [address] [place] [address] History Physical Exam 10/07/24 0753 MR#: [id number] Acct: [id number] Name: ALVARADO COHEN Rep #: [id number] : 1945 79 From: Porfirio Mei MD PCP: Dr. Glenny Luque MD Status:[facility] Location: [facility] HPI - General HPI Narrative ALVARADO COHEN, is a 79 F who presents with worsening hypertension on multiple medications. She had a duplex that revealed right renal artery stenosis. [facility] Medical History Renal artery stenosis [...] artery stenosis: PLAN: -angiogram possible stent 10/07/24 2435 Cosigner Signature (if applicable): CC: Dr. Porfirio Mei MD; Dr. Glenny Luque MD [facility]11-22-2024 History of Present illness Narrative * Shanta Garrison RT(R) - 09/25/2024 12:50 PM EST Radiology Service Progress Note PATIENT NAME: Alvarado Cohen DATE OF SERVICE: September 25, 2024 TIME: 1:27 PM PATIENT IDENTITY VERIFICATION COMPLETED USING TWO (2) IDENTIFIERS: Name and Date of confirmedby patient verbally. FALL SCREENING: Has the patient had 2 falls in the last year or 1 fall with injury or currently using an Ambulatory Assistive Device (Walker, Cane, Wheelchair, Crutches, etc.)? No PATIENT GENDER DATA: Female. status: : No status: NO. PATIENT RELEVANT IMPLANT DATA REVIEWED: Not Applicable PATIENT PRESENTS WITH AN IMPLANTABLE OR ATTACHED SALES SUPPORT ADMINISTRATOR: No RADIOLOGY DEPARTMENT: Mammography PERIPHERAL IV DATA: Not applicable SIGNED BY: RT David(R) September 25, 2024 1:27 PM documented in this encounterAultman Alliance [facility] Hospital11-22-2024 NoteHNO ID: [id number] Author: SHANTA GARRISON RT(R) Service: ? Author [...] PATIENT PRESENTS WITH AN IMPLANTABLE OR ATTACHED SALES SUPPORT ADMINISTRATOR: No RADIOLOGY DEPARTMENT: Mammography PERIPHERAL IV DATA: Not applicable SIGNED BY: RT David(R) September 25, 2024 1:27 [facility]11-15-2024 NoteHNO ID: [id number] Author: JELANI OZUNA MA Service: ? Author Type: Treasury Representative Type: Progress Notes Filed: 09/18/2024 13:45 Note [...] orders: Medicare Annual Wellness Visit 11/09/[address] [facility] with GLENNY LUQUE is PRIMARY/Follow up , For BOTH use modifier 25 Navigation Signature: Jelani Ozuna MA September 18, 2024 1:37 [facility]11-15-2024 History of Present illness Narrative* Jelani Ozuna MA - 09/18/2024 1:36 PM EST POPULATION HEALTH NAVIGATION OUTREACH Action/FYI Return in [...] orders: Medicare Annual Wellness Visit 11/09/[address] [facility] with GLENNY LUQUE is PRIMARY/Follow up , For BOTH use modifier 25 Navigation Signature: Jelani Ozuna MA September 18, 2024 1:37 PM documented in this encounterAultman Alliance [facility] Hospital11-15-2024 NotePatient Outreach (NETNAV) ALVARADO COHEN ([id number]) 1945 F Date Time Provider Department 09/18/24 JELANI OZUNA During your visit today, we recorded the following information about you: Jelani Ozuna MA 09/18/2024 1:45 PM Signed POPULATION HEALTH NAVIGATION [...] orders: Medicare Annual Wellness Visit 11/09/[address] [facility] with GLENNY LUQUE AWV is PRIMARY/Follow up [...] 03/23/2015 Encounter Status:Closed by JELANI OZUNA on 09/18/24[facility]09-20-2024 NoteHNO ID: [id number] Author: ALLIE LYNCH APRN.[facility] Service: ? Author Type: Nurse Practitioner Type: [...] history is provided by the patient. No modern languages professor was used. Laceration Review of Systems Constitutional: [...] plan. Both wounds were redressed. Allie Lynch APRN.[facility]09-20-2024 History of Present illness Narrative* Allie Lynch APRN.[facility] - 07/24/2024 11:32 AM EDT Images from the original note were not [...] history is provided by the patient. No modern languages professor was used. Laceration Review of Systems Constitutional: [...] Bleeding has seem to stop. Instructed patient towatch for infection. Patient was okay with this care plan. Both wounds were redressed. Allie Lynch APRN.NIKKI documented in this encounter[address]23-2024 Telephone encounter Note * Telephone Encounter - Ruthie Mccloud LPN - 03/26/2024 1:17 PM EDT Patient calling she phoned Dr Alexander Govea office to make appt and they did not have her information. Printed Nephrology consult, insurance card, face sheet, office notes, labs and imaging and faxed to [phone] as requested. [facility]05-23-2024 Miscellaneous Notes* Telephone Encounter - Ruthie Mccloud LPN - 03/26/2024 1:17 PM EDT Patient calling she phoned Dr Alexander Govea office to make appt and they did not have her information. Printed Nephrology consult, insurance card, face sheet, office notes, labs and imaging and faxed to [phone] as requested. documented in this encounterAultman Alliance [facility] Hospital05-20-2024 Telephone encounter Note * Telephone Encounter - Yecenia Salcedo LPN - 03/23/2024 4:36 PM EDT Pt called in and she is having [...] an allergy to this. Yecenia Salcedo LPN [facility]05-20-2024 Miscellaneous Notes* Telephone Encounter - Yecenia Salcedo LPN - 03/23/2024 4:36 PM EDT Pt called in and she is having [...] this. Yecenia Salcedo LPN documented in this encounterAultman Alliance Community Hospital05-20-2024 Telephone encounter Note * Telephone Encounter - Rosa Ram LPN - 03/23/2024 9:22 AM EDT Patient phones requesting refills as follows: Requested Prescriptions Pending Prescriptions Disp Refills hydrALAZINE (APRESOLINE) 25 mg tablet 180 tablet 1 Sig: Take 1 tablet by mouth two times a day. Patient [facility] instead of local. Please review and advise. Rosa Ram LPN [facility]05-20-2024 Miscellaneous Notes* Telephone Encounter - Rosa Ram LPN - 03/23/2024 9:22 AM EDT Patient phones requesting refills as follows: Requested Prescriptions Pending Prescriptions Disp Refills hydrALAZINE (APRESOLINE) 25 mg tablet 180 tablet 1 Sig: Take 1 tablet by mouth two times a day. Patient would like to have this at [facility] for mail order instead of local. Please review and advise. Rosa aRm LPN documented in this encounterAultman Alliance Community Hospital05-17-2024 Instructions* Patient Instructions* Hans Mccray APRN.CNP - 03/20/2024 10:29 AM EDT Schedule with Psychiatry Instructor, Dr. Nora Govea [facility], [facility]. Address: [address] [place] [address], [place] [address] Increase Hydralazine to 25 mg twice daily Go to the ER for chest pain, dizziness, blurry vision See us back 3 months. Hans Mccray APRN.CNP documented in this encounterAultman Alliance Community Hospital05-17-2024 History of Present illness Narrative* Lala Brewer MA - 03/20/2024 10:04 AM EDT BP Manual readin/66 Pulse: 71 LEFT arm LARGE cuff BP Chasity Average: 200/67 Pulse: 63 RIGHT arm LARGE cuff 1. 208/67 Pulse: 72 2. 206/67 Pulse: 63 3. 199/65 Pulse: 62 4. 196/68 Pulse: 65 BP CHASITY AVERAGE: 200/67 Pulse: 63 * Hans Mccray APRN.CNP - 03/20/2024 10:00 AM EDT Chief Complaint Patient presents with: F/U 1 month: Blood pressure HPI Alvarado Cohen is a 78 year old female who presents here today for Chronic Medical Conditions. Here for 1 month follow-up for resistant hypertension. Last month we did get an ultrasound of her kidneys to rule out renal artery stenosis, this ultrasound was normal. Her aldosterone to renin ratiowas also normal. We stopped her hydrochlorothiazide and [...] gallop, or rubs. No ectopy. Latest Ref Rn 02/17/2024 Glucose 74 - 99 mg/dL 113 [...] IMPRESSION: 1. No acute renal abnormality detected. Accounts Payable Clerk: ALEX Transcribe Date/Time: Mar 10 2024 8:27A [...] [place] as patient did not want to leavethe area. Discussed with patient if she were [...] - HYDRALAZINE 25 MG TABLET Hans Mccray APRN.AGILE PROJECT MANAGER RTO in 3 months, sooner if needed. This note was partly generated using Struton voice recognition dictation and may contain some misspelled or inaccurate words missed on review. documented in this encounterA[facility] Telephone encounter Note * Telephone Encounter - Tiffanie Ruff MA - 03/10/2024 10:48 AM EDT Pt notified of results via AquaBlingt. Tiffanie Ruff Ma [facility]-07-[facility] Miscellaneous Notes* Telephone Encounter - Tiffanie Ruff MA - 03/10/2024 10:48 AM EDT Pt notified of results via AquaBlingt. Tiffanie Ruff Ma * Telephone Encounter - Hans Mccray APRN.CNP - 03/10/2024 9:43 AM EDT Please let the patient know that her ultrasound of the kidneys is normal. No kidney disease that would be cause for resistant hypertension. Continue with current medications and follow ups as scheduled. Hans Mccray APRN.CNP documented in this encounterAultman [facility]05-07-2024 Telephone encounter Note * Telephone Encounter - Tiffanie Ruff MA - 03/10/2024 10:47 AM EDT Pt notified via RoommateFit. Tiffanie Ruff MA [facility]05-[facility] Miscellaneous Notes* Telephone Encounter - Tiffanie Ruff MA - 03/10/2024 10:47 AM EDT Pt notified via RoommateFit. Tiffanie Ruff MA documented in this encounterAultman [facility]05-07-2024 Telephone encounter Note * Telephone Encounter - Hans Mccray APRN.CNP - 03/10/2024 9:43 AM EDT Please let the patient know that her ultrasound of the kidneys is normal. No kidney disease that would be cause for resistant hypertension. Continue with current medications and follow ups as scheduled. Hans Mccray APRN.CNP [facility]05-06-2024 Telephone encounter Note* Telephone Encounter - Hans Mccray APRN.CNP - 03/09/2024 10:55 AM EDT The following approved medication requests have been [...] two times a day. Hans Mccray APRN.CNP [facility]05-06-[facility] Miscellaneous Notes* Telephone Encounter - Hans Mccray APRN.CNP - 03/09/2024 10:55 AM EDT The following approved medication requests have been [...] two times a day. Hans Mccray APRN.CNP * Telephone Encounter - Lala Brewer MA - 03/09/2024 10:47 AM EDT Patient stopped by office requesting refill on Hydralazine. Unable to refill mail order documented 04/16 as next fill date but will run out. Verified with [employer] unsure why there was a date of 04/16. Pushed refill through & insurance covered. Patient will need a 2 week supply for Hydralazine to go to [facility] to cover until mail order comes in. Pended as appropriate with 2 additional meds to go to mail order. Lala Brewer MA documented in this encounterAultman [facility]05-06-2024 Telephone encounter Note * Telephone Encounter - Lala Brewer MA - 03/09/2024 10:47 AM EDT Patient stopped by office requesting refill on Hydralazine. Unable to refill mail order documented 04/16 as next fill date but will run out. Verified with [employer] unsure why there was a date of 04/16. Pushed refill through & insurance covered. Patient will need a 2 week supply for Hydralazine to go to [employer] [facility] to cover until mail order comes in. Pended as appropriate with 2 additional meds to go to mail order. Lala Brewer MA [facility]05-03-[facility] History of Present illness Narrative* Laly Kauffman RDMS - 03/06/2024 11:30 AM EDT Radiology Service Progress Note PATIENT NAME: Alvarado Cohen DATE OF SERVICE: March 06, 2024 TIME: 1:33 PM PATIENT IDENTITY VERIFICATION COMPLETED USING TWO (2) IDENTIFIERS: Name and Date of confirmedby patient verbally. FALL SCREENING: Has the patient had 2 falls in the last year or 1 fall with injury or currently using an Ambulatory Assistive Device (Walker, Cane, Wheelchair, Crutches, etc.)? No PATIENT GENDER DATA: Female. status: : No status: NO. PATIENT RELEVANT IMPLANT DATA REVIEWED: Not Applicable PATIENT PRESENTS WITH AN IMPLANTABLE OR ATTACHED SALES SUPPORT ADMINISTRATOR: No RADIOLOGY DEPARTMENT: Ultrasound PERIPHERAL IV DATA: Not applicable SIGNED BY: Laly Kauffman RDMS RVT March 06, 2024 1:33 PM documented in this encounterAultman [facility]04-16-2024 Miscellaneous Notes* Telephone Encounter - Lala Brewer MA - 02/18/2024 12:56 PM EDT Patient active MyChart. Patient notified via Expa message. Lala Brewer MA * Telephone Encounter - Hans Mccray APRN.CNP - 02/18/2024 12:38 PM EDT Please let the patient know that her glucose, kidney function is normal. Her aldosterone to renin ratio is normal. This is not the cause of her resistant hypertension. Calcium is just mildly elevated, likely secondary to hydrochlorothiazide use. This should resolve since we stopped that medication. Continue with plan to see us back in 1 month. Hans Mccray APRN.CNP documented in this encounterAultman [facility]04-15-2024 Instructions* Patient Instructions* Hans Mccray APRN.CNP - 02/17/2024 11:46 AM EDT Get blood work today Schedule ultrasound of kidneys Stop hydrochlorothiazide Start Chlorthalidone 25 mg daily Start new prescription for Lisinopril 30 mg twice daily. This replaces the Lisinopril 40 mg. See us back in 4 weeks. Hans Mccray APRN.CNP documented in this encounterAultman [facility]04-15-2024 History of Present illness Narrative* Hans Mccray APRN.CNP - 02/17/2024 11:40 AM EDT Chief Complaint Patient presents with: Follow Up [...] KIDNEY/BLADDER - ALDOSTERONE/DIRECT RENIN RATIO Hans Mccray APRN.AGILE PROJECT MANAGER RTO in 1 months, sooner if needed. This note was partly generated using Struton voice recognition dictation and may contain some misspelled or inaccurate words missed on review. * Lala Brewer MA - 02/17/2024 11:29 AM EDT BP Manual readin/62 Pulse: 83 RIGHT arm REGULAR cuff BP Chasity Average: 188/67 Pulse: 71 LEFT arm REGULAR cuff 1. 199/74 Pulse: 71 2. 188/67 Pulse: 72 3. 189/65 Pulse: 71 4. 187/69 Pulse: 70 BP CHASITY AVERAGE: 188/67 Pulse: 71 documented in [place] encounterMichael [place]ille [address]-04-2024 Miscellaneous Notes* Telephone Encounter - Chani Lee OCCA - 02/06/2024 1:15 PM EDT TC to patient who verbalized understanding of below. Patient now scheduled with Iveth Mccray on 02/16 for BP follow up. Nothing further at this time. LIVE Godinez * Telephone Encounter - Laurel Toure APRN.CNP - 02/06/2024 1:08 PM EDT Can you please call the patient and let her know that I refilled her blood pressure medication. However she is past due for a follow-up. Last time she was seen in the office blood pressure was still very high. Thank you. Laurel Toure APRN.AGILE PROJECT MANAGER * Telephone Encounter - Leeanne Sterling MA - 02/06/2024 12:27 PM EDT Pt was to f/u in 1 mo after last visit. No appt currently scheduled since seen in June, do you want to fill Rx? Leeanne Sterling MA * Telephone Encounter - Milla King - 02/06/2024 10:43 AM EDT Patient has been identified by name and [...] care: Visit date not found Thank you. Milla Thompson. documented in this encounterAultman [facility]10-30-2023 Miscellaneous Notes* Telephone Encounter - Hans Mccray APRN.CNP - 09/02/2023 12:14 PM EDT The following approved medication requests have been transmitted electronically. Requested Prescriptions Pending Prescriptions Disp Refills hydrALAZINE (APRESOLINE) 10 mg tablet [Pharmacy Med Name: HYDRALAZINE 10 MG TABLET] 180 tablet 1 Sig: TAKE 1 TABLET BY MOUTH TWICE A DAY Hans Mccray APRN.CNP * Telephone Encounter - Candi Maldonado - 09/02/2023 11:50 AM EDT Requested Prescriptions Pending Prescriptions Disp Refills hydrALAZINE (APRESOLINE) 10 mg tablet [Pharmacy Med Name: HYDRALAZINE 10 MG TABLET] 180 tablet 1 Sig: TAKE 1 TABLET BY MOUTH TWICE A DAY OLGA 06/12/2023 NOV not scheduled at this time Candi Maldonado MA documented in this encounterAultman [facility]10-05-2023 Miscellaneous Notes* Letter - Coordinator, Mammography - 08/08/2023 4:55 PM EDT August 09, 2023 PID: [id number] Alvarado Cohen [address] [place] [address] Dear Ms. Cohen, We are pleased to [...] dense breast tissue in addition to other riskfactors. Early detection of cancer is very important. We also understand recommendations regarding breast cancer screening are controversial. Please discuss with your primary care provider which strategy is best for you and whether a mammogram is right for you. Your imaging studies and report will be kept on file at [facility] as part of your permanent medical record and are available for your continuing care. Thank you for allowing us to help in meeting your health care needs. Sincerely, Dr. Tejada Interpreting Radiologist [facility] (Normal over 40) documented in this encounterAultman Alliance Community Hospital10-05-2023 History of Present illness Narrative* Carolina Downing Mammo Tech - 08/08/2023 11:10 AM EDT Radiology Service Progress Note PATIENT NAME: Alvarado Cohen DATE OF SERVICE: August 08, 2023 TIME: 11:05 AM PATIENT IDENTITY VERIFICATION COMPLETED USING TWO (2) IDENTIFIERS: Name and Date of confirmedby patient verbally. FALL SCREENING: Has the patient had 2 falls in the last year or 1 fall with injury or currently using an Ambulatory Assistive Device (Walker, Cane, Wheelchair, Crutches, etc.)? No PATIENT GENDER DATA: Female. status: : No status: NO. PATIENT RELEVANT IMPLANT DATA REVIEWED: Not Applicable RADIOLOGY DEPARTMENT: Mammography PERIPHERAL IV DATA: Not applicable SIGNED BY: Jenise Galindo August 08, 2023 11:05 AM documented in this encounterAultman Alliance [facility] Hospital09-07-2023 Miscellaneous Notes* Telephone Encounter - Laurel Toure APRN.AGILE PROJECT MANAGER - 07/11/2023 11:32 AM EDT The following approved medication requests have been transmitted electronically. Requested Prescriptions Pending Prescriptions Disp Refills hydrALAZINE (APRESOLINE) 10 mg tablet 60 tablet 1 Sig: Take 1 tablet by mouth twice daily. Laurel Toure APRN.NIKKI * Telephone Encounter - Rosa Gutierrez LPN - 07/11/2023 11:29 AM EDT Patient phones requesting refills as follows: Requested Prescriptions Pending Prescriptions Disp Refills hydrALAZINE (APRESOLINE) 10 mg tablet 60 tablet 1 Sig: Take 1 tablet by mouth twice daily. Please review and advise. Rosa Gutierrez LPN documented in this encounterAultman [facility] Hospital09-05-2023 Miscellaneous Notes* Telephone Encounter - Hans Mccray APRN.CNP - 07/09/2023 10:22 AM EDT The following approved medication requests have been transmitted electronically. Requested Prescriptions Pending Prescriptions Disp Refills metoprolol succinate ER (TOPROL XL) 50 mg 24 hr tablet 60 tablet 0 Sig: Take 1 tablet by mouth twice daily. Hans Mccray APRN.NIKKI * Telephone Encounter - Tiffanie Ruff Ma - 07/09/2023 10:20 AM EDT Last office visit: 06/12/23 F/u scheduled: none Tiffanie Ruff Ma * Telephone Encounter - Cyndy Ramírez - 07/09/2023 10:00 AM EDT Patient needs a 1 month emergency supply sent to [facility] she is out at this time. Patient [...] notify patient. Cyndy Thompson documented in this encounterAultman [facility] Hospital08-09-2023 Instructions* Patient Instructions* Laurel Toure APRN.CNP - 06/12/2023 12:48 PM EDT Make appointment with nephrology for consult. Continue to take all medication as prescribed Check blood pressure twice daily, goal 130/80 or less. If blood pressure is elevated may increase hydralazine 10 mg (2 tab=20 mg) twice daily. Message the office with blood pressure readings. documented in this encounterAultman Alliance [facility] Hospital08-09-2023 History of Present illness Narrative* Laurel Toure APRN.CNP - 06/12/2023 12:40 PM EDT This is a 77 year old female [...] twice daily, lisinopril 40 mg, hydrochlorothiazide 12.5 mg,and amlodipine 10 mg daily. Has been checking blood pressure at home, 130-140's/50-60's. Denies chest pain, palpitations, dizziness, or edema. Smoking 1PPD. Was referred to nephrology for further evaluation due to uncontrolled hypertension. Discussed establishing care with [facility] here in [place]. Would like to wait to see specialist. [...] APRN.CNP This note was partially generated using Sofea voice recognition system. Note was reviewed for accuracy. There may be minor misspellings or grammar miscues with Sofea voice recognition. documented in this encounterAultman Alliance [facility] Hospital07-10-2023 Miscellaneous Notes* Telephone Encounter - Laurel Toure APRN.CNP - 05/13/2023 1:18 PM EDT Noted, thank you. Laurel Toure APRN.CNP * Telephone Encounter - Brooklynn Posada RN - 05/13/2023 12:24 PM EDT Call placed to patient and provider message reviewed. Patient verbalizes understanding. Brooklynn Posada RN * Telephone Encounter - Laurel Toure APRN.CNP - 05/13/2023 12:14 PM EDT Can you please call the patient and let her know that she may schedule with Dr. Erazo, he works with Dr. Brian. Let me know if she has any additional questions. Thank you. Laurel Toure APRN.CNP * Telephone Encounter - Brooklynn Posada RN - 05/13/2023 9:52 AM EDT Patient calls to let provider know that she is not able to see Dr. Brian at the [facility] [place] location. Patient reports her options are Dr. Caceres at the [place] location or Dr. Brian at the [facility] location. Patient asking provider if she would still recommend Dr. Brian. Patient wants to choose the asset analyst that provider would recommend but would rather not travel so asking for further review. Call patient back at [phone] with provider response. Please review and advise, Brooklynn Posada RN documented in this encounterAultman Alliance [facility] Hospital07-05-2023 Instructions* Patient Instructions* Laurel Toure APRN.CNP - 05/08/2023 1:16 PM EDT Continue to take all medication as prescribed. Add on hydralazine 10 mg twice daily. Monitor blood pressure at home. Recommend consult with nephrology Follow up in 1 month or sooner as needed. documented in this encounterAultman Alliance [facility] Hospital07-05-2023 History of Present illness Narrative* Laurel Toure APRN.CNP - 05/08/2023 1:00 PM EDT This is a 77 year old female [...] APRN.NIKKI This note was partially generated using Sofea voice recognition system. Note was reviewed for accuracy. There may be minor misspellings or grammar miscues with Sofea voice recognition. documented in this encounterAultman Alliance [facility] Hospital06-05-2023 Instructions* Patient Instructions* Laurel Toure APRN.CNP - 04/08/2023 1:41 PM EDT Continue to take lisinopril 40 mg daily. Increase Toprol XL 25 mg to twice daily. Continue to monitor blood pressure at home, 1-2 times per day. Write readings down. Mychart or callthe office in 5 days. Watch salt and processed foods in the diet. Follow up in 1 month or sooner as needed. Goal: 130/80 or less documented in this encounterAultman Alliance Community Hospital06-05-2023 History of Present illness Narrative* Laurel Toure APRN.CNP - 04/08/2023 1:27 PM EDT This is a 77 year old female [...] APRN.CNP This note was partially generated using Sofea voice recognition system. Note was reviewed for accuracy. There may be minor misspellings or grammar miscues with Sofea voice recognition. documented in this encounterAultman Alliance [facility] Hospital10-24-2022 Instructions* Patient Instructions* Laurel Toure APRN.CNP - 08/27/2022 10:29 AM EDT Get fasting labs completed, no food 8-10 hours prior. May black coffee and water. Continue to take all medications as prescribed. Monitor Blood Pressure at home, please follow up in the office BP is elevate. Follow up pending test results. Health Promotion: - Eat healthy -- go to [facility] to get started - Have a yearly [...] drive - Wear sunscreen documented in this encounterAultman Alliance [facility] Hospital10-24-2022 History of Present illness Narrative* Laurel Toure APRN.CNP - 08/27/2022 10:20 AM EDT This is a 77 year old female [...] refers that BP is usually higher when atmedical appointments. Smokin/2-1 PPD. Would like to quit at some [...] Procedure Laterality Date COLONOSCOP W/ OR W/O [facility] 02/18/07 COLONOSCOP W/ OR W/O [facility] 06/10/2017 Colonoscopy ALLERGIES Codeine, Spironolactone, and [...] APRN.NIKKI This note was partially generated using Sofea voice recognition system. Note was reviewed for accuracy. There may be minor misspellings or grammar miscues with Sofea voice recognition. documented in this encounterAultman Alliance [facility] Hospital08-11-2022 Miscellaneous Notes* Telephone Encounter - Lala Brewer MA - 06/14/2022 11:51 AM EDT Patient active MyChart. Patient notified via Expa message. Lala Brewer MA documented in this encounterAultman Alliance [facility] Hospital08-09-2022 Miscellaneous Notes* Letter - Mammography Coordinator - 06/12/2022 8:11 AM EDT June 12, 2022 PID: [id number] Alvarado Cohen [address] [place] [address] Dear Ms. Cohen, We are pleased to [...] dense breast tissue in addition to other riskfactors. Early detection of cancer is very important. We also understand recommendations regarding breast cancer screening are controversial. Please discuss with your primary care provider which strategy is best for you and whether a mammogram is right for you. Your imaging studies and report will be [facility] on [facility] as part of your permanent medical record and are available for your continuing care. Thank you for allowing us to help in meeting your health care needs. Sincerely, Dr. Mathews Interpreting Radiologist [facility] (Normal over 40) documented in this encounterAultman Alliance Community Hospital08-08-2022 History of Present illness Narrative* RT David(R) - 06/11/2022 2:50 PM EDT Radiology Service Progress Note PATIENT NAME: Alvarado Cohen DATE OF SERVICE: June 11, 2022 TIME: 2:58 PM PATIENT IDENTITY VERIFICATION COMPLETED USING TWO (2) IDENTIFIERS: Name and Date of confirmedby patient verbally. FALL SCREENING: Has the patient [...] 11, 2022 2:58 PM documented in this encounterAultman Alliance [facility] Hospital04-25-2014 History of Past illness Narrative* Problem Noted Date Resolved Date Hypokalemia 02/26/2014 04/10/2017 Vitamin D deficiency 09/03/2007 04/10/2017 documented as of this encounter (statuses as of 06/08/2022) [address]25-2014 History of Past illness Narrative* Problem Noted Date Resolved Date Hypokalemia 02/26/2014 04/10/2017 Vitamin D deficiency 09/03/2007 04/10/2017 documented as of this encounter (statuses as of 06/12/2022) [address]25-2014 History of Past illness Narrative* Problem Noted Date Resolved Date Hypokalemia 02/26/2014 04/10/2017 Vitamin D deficiency 09/03/2007 04/10/2017 documented as of this encounter (statuses as of 06/14/2022) [address]25-2014 History of Past illness Narrative* Problem Noted Date Resolved Date Hypokalemia 02/26/2014 04/10/2017 Vitamin D deficiency 09/03/2007 04/10/2017 documented as of this encounter (statuses as of 08/27/2022) [place] [address]25-2014 History of Past illness Narrative* Problem Noted Date Resolved Date Hypokalemia 02/26/2014 04/10/2017 Vitamin D deficiency 09/03/2007 04/10/2017 documented as of this encounter (statuses as of 04/09/2023) [place] [address]2014 History of Past illness Narrative* Problem Noted Date Resolved Date Hypokalemia 02/26/2014 04/10/2017 Vitamin D deficiency 09/03/2007 04/10/2017 documented as of this encounter (statuses as of 05/08/2023) [place] [address]2014 History of Past illness Narrative* Problem Noted Date Diagnosed Date Resolved Date Hypokalemia 02/26/2014 04/10/2017 Vitamin D deficiency 09/03/2007 017 documented as of this encounter (statuses as of 05/13/2023) [place] [address]2014 History of Past illness Narrative* Problem Noted Date Diagnosed Date Resolved Date Hypokalemia 02/26/2014 04/10/2017 Vitamin D deficiency 09/03/2007 017 documented as of this encounter (statuses as of 06/13/2023) [place] [address]2014 History of Past illness Narrative* Problem Noted Date Diagnosed Date Resolved Date Hypokalemia 02/26/2014 04/10/2017 Vitamin D deficiency 09/03/2007 017 documented as of this encounter (statuses as of 06/13/2023) [address]25-2014 History of Past illness Narrative* Problem Noted Date Diagnosed Date Resolved Date Hypokalemia 02/26/2014 04/10/2017 Vitamin D deficiency 09/03/2007 017 documented as of this encounter (statuses as of 07/09/2023) [address]25-2014 History of Past illness Narrative* Problem Noted Date Diagnosed Date Resolved Date Hypokalemia 02/26/2014 04/10/2017 Vitamin D deficiency 09/03/2007 017 documented as of this encounter (statuses as of 07/21/2023) [address]25-2014 History of Past illness Narrative* Problem Noted Date Diagnosed Date Resolved Date Hypokalemia 02/26/2014 04/10/2017 Vitamin D deficiency 09/03/2007 017 documented as of this encounter (statuses as of 08/10/2023) [place] [address]2014 History of Past illness Narrative* Problem Noted Date Diagnosed Date Resolved Date Hypokalemia 02/26/2014 04/10/2017 Vitamin D deficiency 09/03/2007 017 documented as of this encounter (statuses as of 08/27/2023) [facility] illness Narrative* Problem Noted Date Diagnosed Date Resolved Date Hypokalemia 02/26/2014 04/10/2017 Vitamin D deficiency 09/03/2007 017 documented as of this encounter (statuses as of 09/02/2023) [place] [address]2014 History of Past illness Narrative* Problem Noted Date Diagnosed Date Resolved Date Hypokalemia 02/26/2014 04/10/2017 Vitamin D deficiency 09/03/2007 017 documented as of this encounter (statuses as of 09/08/2023) [place] [address]25[address]2014 History of Past illness Narrative* Problem Noted Date Diagnosed Date Resolved Date Hypokalemia 02/26/2014 04/10/2017 Vitamin D deficiency 09/03/2007 017 documented as of this encounter (statuses as of 01/13/2024) [facility] Narrative* Problem Noted Date Diagnosed Date Resolved Date Hypokalemia 02/26/2014 04/10/2017 Vitamin D deficiency 09/03/2007 017 documented as of this encounter (statuses as of 02/07/2024) [facility] Narrative* Problem Noted Date Diagnosed Date Resolved Date Hypokalemia 02/26/2014 04/10/2017 Vitamin D deficiency 09/03/2007 017 documented as of this encounter (statuses as of 02/18/2024) [facility] Narrative* Problem Noted Date Diagnosed Date Resolved Date Hypokalemia 02/26/2014 04/10/2017 Vitamin D deficiency 09/03/2007 017 documented as of this encounter (statuses as of 02/19/2024) [facility] Diagnosis Visit for screening mammogram- Primary Other screening mammogram documented in this encounter [facility]* Diagnosis Essential hypertension, benign- Primary Hyperlipidemia with target LDL less than 100 Other and unspecified hyperlipidemia Tobacco abuse Tobacco use disorder [facility] Diagnosis Essential hypertension, benign- Primary [facility]* Diagnosis Uncontrolled hypertension- Primary Unspecified essential hypertension [facility] Diagnosis Uncontrolled hypertension- Primary Unspecified essential hypertension [facility] Diagnosis Uncontrolled hypertension Unspecified essential hypertension [facility] Diagnosis Visit for screening mammogram- Primary Other screening mammogram [facility] Diagnosis Uncontrolled hypertension Unspecified essential hypertension [facility] Diagnosis Uncontrolled hypertension Unspecified essential hypertension [facility] Diagnosis Uncontrolled hypertension Unspecified essential hypertension [facility] Diagnosis Essential hypertension, benign- Primary Resistant hypertension [facility] Diagnosis Essential hypertension, benign Resistant hypertension [facility] Diagnosis Essential hypertension, benign Uncontrolled hypertension Unspecified essential hypertension [facility] Diagnosis Essential hypertension, benign- Primary Uncontrolled hypertension Unspecified essential hypertension documented in this encounter [facility] note* Diagnosis Essential hypertension, benign Uncontrolled hypertension Unspecified essential hypertension [facility] Diagnosis Open wound- Primary Open wound(s) (multiple) of unspecified site(s), without mention of complication [facility]* Diagnosis Encounter for Medicare annual wellness [...] vascular disease, unspecified documented in this encounter [facility] note* Diagnosis Age-related osteoporosis without current pathological fracture Senile osteoporosis documented in this encounter [facility] note* Diagnosis Essential hypertension, benign [facility] Diagnosis Osteoporosis, unspecified osteoporosis type, unspecified pathological fracture presence- Primary Essential hypertension, benign documented in this encounter [facility] note* Diagnosis Essential hypertension, benign- Primary Resistant hypertension Uncontrolled hypertension Unspecified essential hypertension Osteoporosis, unspecified osteoporosis type, unspecified pathological fracture presence Claudication Peripheral vascular disease, unspecified Tobacco use disorder documented in this encounter [facility] noteNo assessment information availableWDoctors Hospital Work Phone: Reason for referral (narrative)* Diagnostic Procedure Only (Routine) - Pending Review Specialty Diagnoses / Procedures Referred By Sallie t Referred To Contact [facility] Diagnoses Visit for screening mammogram Procedures JOSEFA SCREENING SCREENING MAMMOGRAPHY BI 2-VIEW BREAST INC Indio Busby, DISABILITY AIDE.AGILE PROJECT MANAGER, DNP [address] [place] [address] [facility] [address] [place] [address] Referral ID Status Reason Start Date Expiration Date Visits Requested Visits Authorized [id number] Pending Review Auto-Generat ed Referral 06/08/2022 07/08/2023 1 1 [facility] for referral (narrative)* Diagnostic Procedure Only (Routine) - Pending Review Specialty Diagnoses / Procedures Referred By Contac t Referred To Contact [facility] Diagnoses Visit for screening mammogram Procedures JOSEFA SCREENING SCREENING MAMMOGRAPHY BI 2-VIEW BREAST INC Glenny Melton MD [address] [place] [address] [facility] [address] [place] [address] Referral ID Status Reason Start Date Expiration Date Visits Requested Visits Authorized [id number] Pending Review Auto-Generat ed Referral 07/21/2023 08/17/2024 1 1 [facility] for referral (narrative)* Diagnostic Procedure Only (Routine) - Authorized Specialty Diagnoses / Procedures Referred By Contac t Referred To Contact US [facility] Diagnoses Essential hypertension, benign Resistant hypertension Procedures US KIDNEY/BLADDER US RETROPERITONEAL REAL TIME W/IMAGE COMPLETE Hans Mccray APRN.CNP [address] [place] [address] [place] [address] Referral ID Status Reason Start Date Expiration Date Visits Requested Visits Authorized [id number] Authorized Auto-Generat ed Referral 02/17/2024 03/18/2025 1 1 [facility] for referral (narrative)* Diagnostic Procedure Only (Routine) - Authorized Specialty Diagnoses / Procedures Referred By Contac t Referred To Contact XR IMAGING Diagnoses Age-related osteoporosis without current pathological fracture Procedures DXA-AXIAL SKELETON DXA BONE DENSITY STUDY 1/> SITES AXIAL Glenny Dial MD [address] [place] [address] [place] [address] Referral ID Status Reason Start Date Expiration Date Visits Requested Visits Authorized [id number] Authorized Auto-Generat ed Referral 11/26/2024 12/26/2025 1 1 * Outpatient Procedure (Routine) - Authorized Specialty Diagnoses / Procedures Referred By Sallie simpson Referred [facility] Diagnoses Uncontrolled hypertension Leg fatigue Claudication (HCC) Procedures PVR ANK PRESS PEARL VAS LAB NON-INVAS PHYSIOLOGIC STD EXTREMITY ART 2 LEVEL Glenny Luque MD [address] [place] [address] [facility] [address] [place] [address] Referral ID Status Reason Start Date Expiration Date Visits Requested Visits Authorized [id number] Authorized Auto-Generat ed Referral 11/26/2024 11/26/2025 1 1 [facility] for referral (narrative)No reason for referral information availableWDoctors Hospital Work Phone: Reason for visit Narrative* Diagnostic Procedure Only (Routine) - Closed Specialty Diagnoses / Procedures Referred By Sallie simpson Referred To Contact [facility] Diagnoses Visit for screening mammogram Procedures JOSEFA SCREENING SCREENING MAMMOGRAPHY BI 2-VIEW BREAST INC CAD Indio Robledo APRN.NIKKI, RODRIGUEZ [address] [place] [address] [facility] [address] [place] [address] Referral ID Status Reason Start Date Expiration Date V isits Requested Visits Authorized [id number] Closed Auto-Generated Referral Patient Cleared - INN Insurance Found 06/08/2022 07/08/2023 1 1 [facility] for visit Narrative* Diagnostic Procedure Only (Routine) - Closed Specialty Diagnoses / Procedures Referred By Sallie simpson Referred To Contact [facility] Diagnoses Visit for screening mammogram Procedures JOSEFA SCREENING SCREENING MAMMOGRAPHY BI 2-VIEW BREAST INC Glenny Melton MD [address] [place] [address] [facility] [address] [place] [address] Referral ID Status Reason Start Date Expiration Date V isits Requested Visits Authorized [id number] Closed Auto-Generate d Referral 07/21/2023 08/17/2024 1 1 [facility] for visit Narrative* Diagnostic Procedure Only (Routine) - Closed Specialty Diagnoses / Procedures Referred By Contac t Referred To Contact [facility] Diagnoses Visit for screening mammogram Procedures JOSEFA SCREENING SCREENING MAMMOGRAPHY BI 2-VIEW BREAST INC Glenny Melton MD [address] [place] [address] [facility] [address] [place] [address] Referral ID Status Reason Start Date Expiration Date V isits Requested Visits Authorized [id number] Closed Auto-Generate d Referral 09/21/2024 10/18/2025 1 1 [facility] for visit Narrative* Diagnostic Procedure Only (Routine) - Closed Specialty Diagnoses / Procedures Referred By Contac t Referred To Contact XR IMAGING Diagnoses Age-related osteoporosis without current pathological fracture Procedures DXA-AXIAL SKELETON DXA BONE DENSITY STUDY 1/ SITES AXIAL SKGlenny Shepard MD [address] [place] [address] Phone: tel: fax: [place] [address] Referral ID Status Reason Start Date Expiration Date V isits Requested Visits Authorized [id number] Closed Auto-Generate d Referral 11/26/2024 12/26/2025 1 1 [facility] Advance Directives Documents on File Type Date Recorded Patient Engineering And Development Director Expl anation Advance Directive(s) 06/10/2017 11:09 AM Advance Directive(s) 06/10/2017 10:58 AM Documents on File Type Date Recorded Patient Engineering And Development Director Expl anation Advance Directive(s) 06/10/2017 10:58 AM Documents on File Type Date Recorded Patient Engineering And Development Director Expl anation Advance Directive(s) 06/10/2017 10:58 AM Advance Directive Response Recorded Date/ Time Do you have a Healthcare Power of Manager Roofing? Yes May 29, 2025 2:07pm Advance Directives No October 07, 2024 8:39am Advance Directive Response Recorded Date/ Time Do you have a Healthcare Power of Manager Roofing? No May 29, 2025 5:13pm Advance Directives No October 07, 2024 8:39am Reason for Referral Specialty Diagnoses / Procedures Referred By Contac t Referred To Contact Nephrology Diagnoses Uncontrolled hypertension Procedures CONSULT TO NEPHROLOGY OFFICE/OUTPATIENT NEW HIGH MDM 60-74 MINUTES Laurel Toure, DISABILITY AIDE.AGILE PROJECT MANAGER [address] [place] [address] Referral ID Status Reason Start Date Expiration Date Visits Requested Visits Authorized [id number] Authorized PCP Requested Referral 05/08/2023 05/07/2024 1 1 Specialty Diagnoses / Procedures Referred By Contac t Referred To Contact Nephrology Diagnoses Essential hypertension, benign Uncontrolled hypertension Procedures CONSULT TO NEPHROLOGY OFFICE/OUTPATIENT [facility] 60 MINUTES Hans Mccray, DISABILITY AIDE.AGILE PROJECT MANAGER [address] [place] [address] Referral ID Status Reason Start Date Expiration Date Visits Requested Visits Authorized [id number] Authorized PCP Requested Referral 03/20/2024 03/20/2025 1 1 Summary Purpose Family History Relationship Condition Age at Onset Recorded Date/T frantz Not Specified Malignant neoplasm Unknown Hypertension Unknown Asthma Unknown Chief Complaint and Reason for Visit Chief Complaint Admit Date HYPONATREMIA May 29, 2025 4:23 pm Chief Complaint Admit Date HYPONATREMIA May 29, 2025 4:23 pm HYPONATREMIA May 30, 2025 3:14 pm HYPONATREMIA May 31, 2025 8:06 am HYPONATREMIA June 01, 2025 8:13 am HYPONATREMIA June 01, 2025 3:15 pm HYPONATREMIA June 01, 2025 5:45 pm HYPONATREMIA June 02, 2025 7:55 am HYPONATREMIA June 03, 2025 4:22 pm HYPONATREMIA June 04, 2025 8:1 7am HYPONATREMIA June 05, 2025 8:1 9am HYPONATREMIA June 06, 2025 7:3 8am Reason for Visit Admit Date Acute anemia May 29, 2025 4:23 pm ANTONINO (acute kidney injury) May 29 4:23pm GI bleed May 29, 2025 4:23 pm Hypo-osmolar hyponatremia May 29 4:23pm Hypokalemia May 29, 2025 4:23 pm Hypomagnesemia May 29, 2025 4:23 pm Hyponatremia May 29, 2025 4:23 pm Hypotension May 29, 2025 4:23 pm Lower extremity weakness May 29, 2025 4:23pm Paresthesia of lower extremity May 4:23pm Uncontrolled hypertension May 29 4:23pm Renal artery stenosis May 29, 2025 4: 23pm Anemia May 29, 2025 4:23 pm Additional Source Comments Source Comments (unrecognize d section and content) In the event this informatio n is protected by the Federal Confidentiality of Alcohol and Drug Abuse Patient Records regulations: The Federal rules restrict any use of the information to criminally investigate or prosecute any alcohol or drug abuse patient.[facility] the event this information is protected by the Federal Confidentiality of Alcohol and Drug Abuse Patient Records regulations: The Federal rules restrict any use of the information to criminally investigate or prosecute any alcohol or drug abuse patient.[facility] the event this information is protected by the Federal Confidentiality of Alcohol and Drug Abuse Patient Records regulations: The Federal rules restrict any use of the information to criminally investigate or prosecute any alcohol or drug abuse patient.[facility] the event this information is protected by the Federal Confidentiality of Alcohol and Drug Abuse Patient Records regulations: The Federal rules restrict any use of the information to criminally investigate or prosecute any alcohol or drug abuse patient.[facility] the event this information is protected by the Federal Confidentiality of Alcohol and Drug Abuse Patient Records regulations: The Federal rules restrict any use of the information to criminally investigate or prosecute any alcohol or drug abuse patient.[facility] the event this information is protected by the Federal Confidentiality of Alcohol and Drug Abuse Patient Records regulations: The Federal rules restrict any use of the information to criminally investigate or prosecute any alcohol or drug abuse patient.[facility] the event this information is protected by the Federal Confidentiality of Alcohol and Drug Abuse Patient Records regulations: The Federal rules restrict any use of the information to criminally investigate or prosecute any alcohol or drug abuse patient.[facility] the event this information is protected by the Federal Confidentiality of Alcohol and Drug Abuse Patient Records regulations: The Federal rules restrict any use of the information to criminally investigate or prosecute any alcohol or drug abuse patient.[facility] the event this information is protected by the Federal Confidentiality of Alcohol and Drug Abuse Patient Records regulations: The Federal rules restrict any use of the information to criminally investigate or prosecute any alcohol or drug abuse patient.[facility] the event this information is protected by the Federal Confidentiality of Alcohol and Drug Abuse Patient Records regulations: The Federal rules restrict any use of the information to criminally investigate or prosecute any alcohol or drug abuse patient.[facility] the event this information is protected by the Federal Confidentiality of Alcohol and Drug Abuse Patient Records regulations: The Federal rules restrict any use of the information to criminally investigate or prosecute any alcohol or drug abuse patient.[facility] the event this information is protected by the Federal Confidentiality of Alcohol and Drug Abuse Patient Records regulations: The Federal rules restrict any use of the information to criminally investigate or prosecute any alcohol or drug abuse patient.[facility] the event this information is protected by the Federal Confidentiality of Alcohol and Drug Abuse Patient Records regulations: The Federal rules restrict any use of the information to criminally investigate or prosecute any alcohol or drug abuse patient.[facility] the event this information is protected by the Federal Confidentiality of Alcohol and Drug Abuse Patient Records regulations: The Federal rules restrict any use of the information to criminally investigate or prosecute any alcohol or drug abuse patient.[facility] the event this information is protected by the Federal Confidentiality of Alcohol and Drug Abuse Patient Records regulations: The Federal rules restrict any use of the information to criminally investigate or prosecute any alcohol or drug abuse patient.[facility] the event this information is protected by the Federal Confidentiality of Alcohol and Drug Abuse Patient Records regulations: The Federal rules restrict any use of the information to criminally investigate or prosecute any alcohol or drug abuse patient.[facility] the event this information is protected by the Federal Confidentiality of Alcohol and Drug Abuse Patient Records regulations: The Federal rules restrict any use of the information to criminally investigate or prosecute any alcohol or drug abuse patient.[facility] the event this information is protected by the Federal Confidentiality of Alcohol and Drug Abuse Patient Records regulations: The Federal rules restrict any use of the information to criminally investigate or prosecute any alcohol or drug abuse patient.[facility] the event this information is protected by the Federal Confidentiality of Alcohol and Drug Abuse Patient Records regulations: The Federal rules restrict any use of the information to criminally investigate or prosecute any alcohol or drug abuse patient.[facility] the event this information is protected by the Federal Confidentiality of Alcohol and Drug Abuse Patient Records regulations: The Federal rules restrict any use of the information to criminally investigate or prosecute any alcohol or drug abuse patient.[facility] the event this information is protected by the Federal Confidentiality of Alcohol and Drug Abuse Patient Records regulations: The Federal rules restrict any use of the information to criminally investigate or prosecute any alcohol or drug abuse patient.[facility] the event this information is protected by the Federal Confidentiality of Alcohol and Drug Abuse Patient Records regulations: The Federal rules restrict any use of the information to criminally investigate or prosecute any alcohol or drug abuse patient.[facility] the event this information is protected by the Federal Confidentiality of Alcohol and Drug Abuse Patient Records regulations: The Federal rules restrict any use of the information to criminally investigate or prosecute any alcohol or drug abuse patient.[facility] the event this information is protected by the Federal Confidentiality of Alcohol and Drug Abuse Patient Records regulations: The Federal rules restrict any use of the information to criminally investigate or prosecute any alcohol or drug abuse patient.[facility] the event this information is protected by the Federal Confidentiality of Alcohol and Drug Abuse Patient Records regulations: The Federal rules restrict any use of the information to criminally investigate or prosecute any alcohol or drug abuse patient.[facility] the event this information is protected by the Federal Confidentiality of Alcohol and Drug Abuse Patient Records regulations: The Federal rules restrict any use of the information to criminally investigate or prosecute any alcohol or drug abuse patient.[facility] the event this information is protected by the Federal Confidentiality of Alcohol and Drug Abuse Patient Records regulations: The Federal rules restrict any use of the information to criminally investigate or prosecute any alcohol or drug abuse patient.[facility] the event this information is protected by the Federal Confidentiality of Alcohol and Drug Abuse Patient Records regulations: The Federal rules restrict any use of the information to criminally investigate or prosecute any alcohol or drug abuse patient.[facility] the event this information is protected by the Federal Confidentiality of Alcohol and Drug Abuse Patient Records regulations: The Federal rules restrict any use of the information to criminally investigate or prosecute any alcohol or drug abuse patient.[facility]In the event this information is protected by the Federal Confidentiality of Alcohol and Drug Abuse Patient Records regulations: The Federal rules restrict any use of the information to criminally investigate or prosecute any alcohol or drug abuse patient.[facility] the event this information is protected by the Federal Confidentiality of Alcohol and Drug Abuse Patient Records regulations: The Federal rules restrict any use of the information to criminally investigate or prosecute any alcohol or drug abuse patient.[facility]In the event this information is protected by the Federal Confidentiality of Alcohol and Drug Abuse Patient Records regulations: The Federal rules restrict any use of the information to criminally investigate or prosecute any alcohol or drug abuse patient.[facility] the event this information is protected by the Federal Confidentiality of Alcohol and Drug Abuse Patient Records regulations: The Federal rules restrict any use of the information to criminally investigate or prosecute any alcohol or drug abuse patient.[facility]In the event this information is protected by the Federal Confidentiality of Alcohol and Drug Abuse Patient Records regulations: The Federal rules restrict any use of the information to criminally investigate or prosecute any alcohol or drug abuse patient.[facility]In the event this information is protected by the Federal Confidentiality of Alcohol and Drug Abuse Patient Records regulations: The Federal rules restrict any use of the information to criminally investigate or prosecute any alcohol or drug abuse patient.[facility]In the event this information is protected by the Federal Confidentiality of Alcohol and Drug Abuse Patient Records regulations: The Federal rules restrict any use of the information to criminally investigate or prosecute any alcohol or drug abuse patient.[facility]In the event this information is protected by the Federal Confidentiality of Alcohol and Drug Abuse Patient Records regulations: The Federal rules restrict any use of the information to criminally investigate or prosecute any alcohol or drug abuse patient.[facility]In the event this information is protected by the Federal Confidentiality of Alcohol and Drug Abuse Patient Records regulations: The Federal rules restrict any use of the information to criminally investigate or prosecute any alcohol or drug abuse patient.[facility] HospitalIn the event this information is protected by the Federal Confidentiality of Alcohol and Drug Abuse Patient Records regulations: The Federal rules restrict any use of the information to criminally investigate or prosecute any alcohol or drug abuse patient.[facility]In the event this information is protected by the Federal Confidentiality of Alcohol and Drug Abuse Patient Records regulations: The Federal rules restrict any use of the information to criminally investigate or prosecute any alcohol or drug abuse patient.[facility] HospitalIn the event this information is protected by the Federal Confidentiality of Alcohol and Drug Abuse Patient Records regulations: The Federal rules restrict any use of the information to criminally investigate or prosecute any alcohol or drug abuse patient.[facility] Care Teams (unrecognized sec tion and content) Developmental Writing Instructor Relationship Specialty Start Date End Date Indio Robledo APRN.CNP, DNP [address], [place] [id number] PCP - General Family Practice 10/11/21 Developmental Writing Instructor Relationship Specialty Start Date End Date Indio Robledo APRN.CNP, DNP [address], [place] [phone] PCP - General Family Practice 10/11/21 Developmental Writing Instructor Relationship Specialty Start Date End Date Glenny Luque MD [address] [place] [address] PCP - General Family Medicine 08/27/22 Developmental Writing Instructor Relationship Specialty Start Date End Date Glenny Luque MD [address] [place] [address] PCP - General Family Medicine 08/27/22 Developmental Writing Instructor Relationship Specialty Start Date End Date Glenny Luque MD [address] [place] [address] PCP - General Family Medicine 08/27/22 Developmental Writing Instructor Relationship Specialty Start Date End Date Glenny Luque MD [address] [place] [address] PCP - General Family Medicine 08/27/22 Developmental Writing Instructor Relationship Specialty Start Date End Date Glenny Luque MD [address] [place] [address] PCP - General Family Medicine 08/27/22 Developmental Writing Instructor Relationship Specialty Start Date End Date Glenny Luque MD [address] [place] [address] PCP - General Family Medicine 08/27/22 Developmental Writing Instructor Relationship Specialty Start Date End Date Glenny Luque MD [address] [place] [address] PCP - General Family Medicine 08/27/22 Developmental Writing Instructor Relationship Specialty Start Date End Date Glenny Luque MD [address] [place] [address] PCP - General Family Medicine 08/27/22 Developmental Writing Instructor Relationship Specialty Start Date End Date Glenny Luque MD [address] [facility] [place] [address] PCP - General Family Medicine 08/27/22 Developmental Writing Instructor Relationship Specialty Start Date End Date Glenny Luque MD [address] [place] [address] PCP - General Family Medicine 08/27/22 Developmental Writing Instructor Relationship Specialty Start Date End Date Glenny Luque MD [address] [place] [address] PCP - General Family Medicine 08/27/22 Developmental Writing Instructor Relationship Specialty Start Date End Date Glenny Luque MD [address] [place] [address] PCP - General Family Medicine 08/27/22 Developmental Writing Instructor Relationship Specialty Start Date End Date Glenny Luque MD [address] [place] [address] PCP - General Family Medicine 08/27/22 Developmental Writing Instructor Relationship Specialty Start Date End Date Glenny Luque MD [address] [place] [address] PCP - General Family Medicine 08/27/22 Developmental Writing Instructor Relationship Specialty Start Date End Date Glenny Luque MD [address] [facility] [place] [address] PCP - General Family Medicine 08/27/22 Developmental Writing Instructor Relationship Specialty Start Date End Date Glenny Luque MD [address] [facility] [place] [address] PCP - General Family Medicine 08/27/22 Developmental Writing Instructor Relationship Specialty Start Date End Date Glenny Luque MD [address] [facility] [place] [address] PCP - General Family Medicine 08/27/22 Developmental Writing Instructor Relationship Specialty Start Date End Date Glenny Luque MD [address] [facility] [place] [address] PCP - General Family Medicine 08/27/22 Developmental Writing Instructor Relationship Specialty Start Date End Date Glenny Luque MD [address] [facility] [place] [address] PCP - General Family Medicine 08/27/22 Developmental Writing Instructor Relationship Specialty Start Date End Date Glenny Luque MD [address] [facility] [place] [address] PCP - General Family Medicine 08/27/22 Laurel Toure, DISABILITY AIDE.AGILE PROJECT MANAGER [address] [facility] [place] [address] Patient Support Representative Family Medicine 10/11/24 Hans Mccray, DISABILITY AIDE.AGILE PROJECT MANAGER [address] [facility] [place] [address] Patient Support Representative Family Medicine 10/20/24 Developmental Writing Instructor Relationship Specialty Start Date End Date Glenny Luque MD [address] [facility] [place] [address] PCP - General Family Medicine 08/27/22 Laurel Toure DISABILITY AIDE.AGILE PROJECT MANAGER [address] [facility] [place] [address] Patient Support Representative Family Medicine 10/11/24 Hans Mccray APRN.AGILE PROJECT MANAGER [address] [facility] [place] [address] Patient Support Representative Family Medicine 10/20/24 Developmental Writing Instructor Relationship Specialty Start Date End Date Glenny Luque MD [address] [facility] [place] [address] PCP - General Family Medicine 08/27/22 Laurel Toure APRN.AGILE PROJECT MANAGER [address] [place] [address] Patient Support Representative Family Medicine 10/11/24 Hans cMcray APRN.AGILE PROJECT MANAGER [address] [facility] [place] [address] Patient Support Representative Family Medicine 10/20/24 Developmental Writing Instructor Relationship Specialty Start Date End Date Glenny Luque MD [address] [place] [address] PCP - General Family Medicine 08/27/22 Laurel Toure APRN.AGILE PROJECT MANAGER [address] [facility] [place] [address] Patient Support Representative Family Medicine 10/11/24 Hans Mccray APRN.AGILE PROJECT MANAGER [address] [facility] [place] [address] Patient Support Representative Family Medicine 10/20/24 Developmental Writing Instructor Relationship Specialty Start Date End Date Glenny Luque MD [address] [facility] [place] [address] PCP - General Family Medicine 08/27/22 Laurel Toure APRN.AGILE PROJECT MANAGER [address] [place] [address] Patient Support Representative Family Medicine 10/11/24 Hans Mccray DISABILITY AIDE.AGILE PROJECT MANAGER [address] [place] [address] Patient Support Representative Family Medicine 10/20/24 Developmental Writing Instructor Relationship Specialty Start Date End Date Glenny Luque MD [address] [place] [address] PCP - General Family Medicine 08/27/22 Hans Mccray DISABILITY AIDE.AGILE PROJECT MANAGER [address] [place] [address] Patient Support Representative [facility] 10/20/24 Developmental Writing Instructor Relationship Specialty Start Date End Date Glenny Luque MD [address] [place] [address] PCP - General Family Medicine 08/27/22 Hans Mccray DISABILITY AIDE.AGILE PROJECT MANAGER [address] [place] [address] Patient Support Representative Family Medicine 10/20/24 Developmental Writing Instructor Relationship Specialty Start Date End Date Glenny Luque MD [address] [place] [address] PCP - General Family Medicine 08/27/22 Hans Mccray DISABILITY AIDE.AGILE PROJECT MANAGER [address] [place] [address] Patient Support Representative Family Medicine 10/20/24 Team Status: Active Member Role/Relationship Status Dates Dr. Glenny Luque MD Primary Care Provider Active Team Status: Active Member Role/Relationship Status Dates Dr. Glenny Luque MD Primary Care Provider Active Start: May 29, 2025 Dr. Del Leyva DO Emergency Provider Active Start: May 29, 2025 Dr. Conchita Burns MD Admit Provider Active Star t: May 29, 2025 Dr. Conchita Burns MD Attending Provider Active Start: May 29, 2025 Team Status: Inactive Member Role/Relationship Status Dates Dr. Glenny Luque MD Primary Care Provider Active Start: May 29, 2025 End: June 06, 2025 Dr. Del Leyva DO Emergency Provider Active Start: May 29, 2025 End: June 06, 2025 Dr. Conchita Burns MD Admit Provider Active Star t: May 29, 2025 End: June 06, 2025 Dr. Conchita Burns MD Other Provider Active Star t: May 29, 2025 End: June 06, 2025 Dr. Tiffanie Govea , Attending Provider Active S tart: May 29, 2025 End: June 06, 2025 Dr. Glenny Wetzel , Other Provider Active S tart: May 29, 2025 End: June 06, 2025 Dr. Nora Govea , DO Other Provider Active Sta rt: May 29, 2025 End: June 06, 2025 Dr. Porfirio Mei MD Other Provider Active Start : May 29, 2025 End: June 06, 2025 Team Status: Active Member Role/Relationship Status Dates Dr. Glenny Luque MD Primary Care Provider Active Start: May 30, 2025 Dr. Dle Leyva DO Emergency Provider Active Start: May 30, 2025 Dr. Conchita Burns MD Admit Provider Active Star t: May 30, 2025 Dr. Conchita Burns MD Other Provider Active Star t: May 30, 2025 Dr. Glenny Wetzel DO Attending Provider Active Start: May 30, 2025 Dr. Glenny Wetzel DO Other Provider Active S tart: May 30, 2025 Dr. Latoya Mo MD Other Provider Active Start: May 30, 2025 Team Status: Active Member Role/Relationship Status Dates Dr. Glenny Luque MD Primary Care Provider Active Start: May 31, 2025 Dr. Del Leyva , DO Emergency Provider Active Start: May 31, 2025 Dr. Conchita Burns MD Admit Provider Active Star t: May 31, 2025 Dr. Conchita Burns MD Other Provider Active Star t: May 31, 2025 Dr. Tiffanie Govea , DO Attending Provider Active S tart: May 31, 2025 Dr. Tiffanie Govea , DO Other Provider Active Start : May 31, 2025 Dr. Glenny Wetzel , DO Other Provider Active S tart: May 31, 2025 Dr. Nora Govea , DO Other Provider Active Sta rt: May 31, 2025 Dr. Porfirio Mei MD Other Provider Active Start : May 31, 2025 Team Status: Active Member Role/Relationship Status Dates Dr. Glenny Luque MD Primary Care Provider Active Start: May 31, 2025 Dr. Lisandro Bernardo MD Attending Provider Active S tart: May 31, 2025 Team Status: Active Member Role/Relationship Status Dates Dr. Glenny Luque MD Primary Care Provider Active Start: June 01, 2025 Dr. Del Leyva , DO Emergency Provider Active Start: June 01, 2025 Dr. Conchita Burns MD Admit Provider Active Star t: June 01, 2025 Dr. Conchita Burns MD Other Provider Active Star t: June 01, 2025 Dr. Tiffanie Govea , DO Attending Provider Active S tart: June 01, 2025 Dr. Tiffanie Govea , DO Other Provider Active Start : June 01, 2025 Dr. Glenny Wetzel , DO Other Provider Active S tart: June 01, 2025 Dr. Nora Govea , DO Other Provider Active Sta rt: June 01, 2025 Dr. Porfirio Mei MD Other Provider Active Start : June 01, 2025 Team Status: Active Member Role/Relationship Status Dates Dr. Glenny Luque MD Primary Care Provider Active Start: June 01, 2025 Dr. Del Leyva , DO Emergency Provider Active Start: June 01, 2025 Dr. Conchita Burns MD Admit Provider Active Star t: June 01, 2025 Dr. Conchita Burns MD Other Provider Active Star t: June 01, 2025 Dr. Tiffanie Govea , DO Other Provider Active Start : June 01, 2025 Dr. Glenny Wetzel , DO Other Provider Active S tart: June 01, 2025 Dr. Nora Govea , DO Other Provider Active Sta rt: June 01, 2025 Dr. Porfirio Mei MD Other Provider Active Start : June 01, 2025 Dr. Juan Manuel Valdovinos , DO Attending Provider Active Start: June 01, 2025 Team Status: Active Member Role/Relationship Status Dates Dr. Glenny Luque MD Primary Care Provider Active Start: June 01, 2025 Dr. Del Leyva , DO Emergency Provider Active Start: June 01, 2025 Dr. Conchita Burns MD Admit Provider Active Star t: June 01, 2025 Dr. Conchita Burns MD Other Provider Active Star t: June 01, 2025 Dr. Tiffanie Govea , DO Other Provider Active Start : June 01, 2025 Dr. Glenny Wetzel , DO Other Provider Active S tart: June 01, 2025 Dr. Nora Govea , DO Other Provider Active Sta rt: June 01, 2025 Dr. Porfirio Mei MD Attending Provider Active S tart: June 01, 2025 Dr. Porfirio Mei MD Other Provider Active Start : June 01, 2025 Team Status: Active Member Role/Relationship Status Dates Dr. Glenny Luque MD Primary Care Provider Active Start: June 02, 2025 Dr. Del Leyva , DO Emergency Provider Active Start: June 02, 2025 Dr. Conchita Burns MD Admit Provider Active Star t: June 02, 2025 Dr. Conchita Burns MD Other Provider Active Star t: June 02, 2025 Dr. Tiffanie Govea , DO Attending Provider Active S tart: June 02, 2025 Dr. Tiffanie Govea , DO Other Provider Active Start : June 02, 2025 Dr. Glenny Wetzel , DO Other Provider Active S tart: June 02, 2025 Dr. Nora Govea , DO Other Provider Active Sta rt: June 02, 2025 Dr. Porfirio Mei MD Other Provider Active Start : June 02, 2025 Team Status: Active Member Role/Relationship Status Dates Dr. Glenny Luque MD Primary Care Provider Active Start: June 03, 2025 Dr. Del Leyva , DO Emergency Provider Active Start: June 03, 2025 Dr. Conchita Burns MD Admit Provider Active Star t: June 03, 2025 Dr. Conchita Burns MD Other Provider Active Star t: June 03, 2025 Dr. Tiffanie Govea , DO Attending Provider Active S tart: June 03, 2025 Dr. Tiffanie Govea , DO Other Provider Active Start : June 03, 2025 Dr. Glenny Wetzel , DO Other Provider Active S tart: June 03, 2025 Dr. Nora Govea , DO Other Provider Active Sta rt: June 03, 2025 Dr. Porfirio Mei MD Other Provider Active Start : June 03, 2025 Team Status: Active Member Role/Relationship Status Dates Dr. Glenny Luque MD Primary Care Provider Active Start: June 04, 2025 Dr. Del Leyva , DO Emergency Provider Active Start: June 04, 2025 Dr. Conchita Burns MD Admit Provider Active Star t: June 04, 2025 Dr. Conchita Burns MD Other Provider Active Star t: June 04, 2025 Dr. Tiffanie Govea , DO Attending Provider Active S tart: June 04, 2025 Dr. Tiffanie Govea , DO Other Provider Active Start : June 04, 2025 Dr. Glenny Wetzel , DO Other Provider Active S tart: June 04, 2025 Dr. Nora Govea , DO Other Provider Active Sta rt: June 04, 2025 Dr. Porfirio Mei MD Other Provider Active Start : June 04, 2025 Team Status: Active Member Role/Relationship Status Dates Dr. Glenny Luque MD Primary Care Provider Active Start: June 05, 2025 Dr. Del Leyva , DO Emergency Provider Active Start: June 05, 2025 Dr. Conchita Burns MD Admit Provider Active Star t: June 05, 2025 Dr. Conchita Burns MD Other Provider Active Star t: June 05, 2025 Dr. Tiffanie Govea , DO Attending Provider Active S tart: June 05, 2025 Dr. Tiffanie Govea , DO Other Provider Active Start : June 05, 2025 Dr. Glenny Wetzel , DO Other Provider Active S tart: June 05, 2025 Dr. Nora Govea , DO Other Provider Active Sta rt: June 05, 2025 Dr. Porfirio Mei MD Other Provider Active Start : June 05, 2025 Team Status: Active Member Role/Relationship Status Dates Dr. Glenny Luque MD Primary Care Provider Active Start: June 06, 2025 Dr. Del Leyva , DO Emergency Provider Active Start: June 06, 2025 Dr. Conchita Burns MD Admit Provider Active Star t: June 06, 2025 Dr. Conchita Burns MD Other Provider Active Star t: June 06, 2025 Dr. Tiffanie Govea , DO Attending Provider Active S tart: June 06, 2025 Dr. Tiffanie Govea , DO Other Provider Active Start : June 06, 2025 Dr. Glenny Wetzel , DO Other Provider Active S tart: June 06, 2025 Dr. Nora Govea , DO Other Provider Active Sta rt: June 06, 2025 Dr. Porfirio Mei MD Other Provider Active Start : June 06, 2025 Reason for Visit (unrecogniz ed section and [...] US RETROPERITONEAL REAL TIME W/IMAGE COMPLETE Hans Mccray, DISABILITY AIDE.AGILE PROJECT MANAGER [address] [facility] [place] [address] [place] [address] Referral ID Status Reason Start Date Expiration Date V isits Requested Visits Authorized [id number] Closed Auto-Generate d Referral 02/17/2024 03/18/2025 1 1 Reason Onset Date Comments Refill Request 03/09/2024 Reason Comments Opened In Error Reason Comments F/U 1 month Blood pressure Reason Onset Date Comments Refill Request 03/23/2024 Reason Comments Medication Problem Reason Comments fax referral to Dr Alexander oGvea Reason Comments Laceration R thumb grated some skin off with cheese grater, and Left index finger with knife x last night Issues with bleeding Reason Onset Date Comments Population Health Navigation Outreach 09/18/2024 [facility] Surge list 2023 Reason Comments Medicare Wellness Exam Reason Onset Date Comments Refill Request 01/25/2025 Reason Onset Date Comments Population Health Navigation Outreach 03/03/2025 [facility] Reason Comments Follow Up BP Reason Onset Date Comments Population Health Navigation Outreach 04/07/2025 [facility] Reason Comments medical consultation form [facility] Oral S urgery Reason Onset Date Comments Transition Of Care 06/07/2025 INFORMATION SOURCE (unrecogn ized section and content) DATE CREATED AUTHOR 04/30/2025 [facility] DATE CREATED AUTHOR AUTHOR'S ORGANIZ ATION 06/07/2025 [facility] Goals (unrecognized section and content) Goals may be documented in a n alternate section FOR RECORDS PERTAINING TO PATIENTS WHO ARE [...] BE BASED ON THE PRIMARY CLINICAL RECORDS. [employer] provides no warranty or guarantee of the accuracy or completeness of information in this document.
== END | disposition home or self-care (01) ==
LOC: LAB 11:29
PROVIDERS: PCP Family Medicine; Referring Provider Internal Medicine Nephrology; Visit Provider Internal Medicine Nephrology
DX: E87.1 Hypo-osmolality and hyponatremia (principal)
CPT/HCPCS: 36415; 80048

== ENCOUNTER → 2025-06-14 | Outpatient (CLI) | payer MEDICARE, OTHER, SELFPAY ==
[2025-06-14 16:44] LABS: Anion Gap 13 (5-15); BUN 21 mg/dL (4-19); BUN/Creat Ratio 17.3 RATIO (10-20); Calcium,Total 9.1 mg/dL (7.6-11.0); Carbon Dioxide 20.6 mmol/L (21.0-32.0); Chloride 94 mmol/L (98-108); Glucose 98 mg/dL (70-99); Potassium 3.9 mmol/L (3.3-5.1)
== END | disposition home or self-care (01) ==
LOC: MTLAB 13:31
PROVIDERS: PCP Family Medicine; Referring Provider Internal Medicine Nephrology; Visit Provider Internal Medicine Nephrology
DX: E87.1 Hypo-osmolality and hyponatremia (principal)
CPT/HCPCS: 36415; 80048

== ENCOUNTER → 2025-06-21 | Outpatient (CLI) | payer MEDICARE, OTHER, SELFPAY ==
[2025-06-21 16:01] LABS: Albumin, Serum 4.0 g/dL (3.4-4.8); Anion Gap 14 (5-15); BUN 19 mg/dL (4-19); BUN/Creat Ratio 15.8 RATIO (10-20); Calcium,Total 9.3 mg/dL (7.6-11.0); Carbon Dioxide 24.0 mmol/L (21.0-32.0); Chloride 95 mmol/L (98-108); Glucose 106 mg/dL (70-99); Potassium 3.4 mmol/L (3.3-5.1)
== END | disposition home or self-care (01) ==
LOC: MTLAB 13:35
PROVIDERS: PCP Family Medicine; Referring Provider Internal Medicine Nephrology; Visit Provider Internal Medicine Nephrology
DX: N18.31 Chronic kidney disease, stage 3a (principal); E87.1 Hypo-osmolality and hyponatremia
CPT/HCPCS: 36415; 80048; 82040; 84100

== ENCOUNTER 2025-06-29 13:11 | Inpatient (IN) | payer MEDICARE, OTHER, SELFPAY ==
[2025-06-29] VITALS (39 sets, daily range): BP systolic 122–219; BP diastolic 42–78; PULSE 62–74; RESP 12–24; TEMP 36.2; O2SAT 83–98; BMI 25.5; BMI 24.2
--- NOTE | 2025-06-29 13:43 | RAD_ITS ---
PROCEDURE: CHEST 1 VIEW (PORTABLE) 06/29/2025 REASON FOR EXAM: SHORTNESS OF BREATH TECHNIQUE: Frontal view of the chest. COMPARISON: May 29, 2025. FINDINGS: Hardware: EKG electrodes are seen. Heart: Borderline cardiomegaly Lungs: Vascular congestion and CHF. Small bilateral pleural effusions with bibasilar infiltration and/or atelectasis worse at the left lung base. Fluid is seen in the right major fissure. Bones: Degenerative changes are identified within the thoracic spine. Other: RAD/Chest 1 View (Portable) IMPRESSION: CHF. Small bilateral pleural effusions with bibasilar atelectasis and/or infiltrates . Follow-up recommended. Reading Location: [facility]
--- NOTE | 2025-06-29 13:43 | EKG12_ITS ---
Test Reason : SOB/WEAKNESS Blood Pressure : */* mmHG Vent. 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
[2025-06-29 13:57] LABS: Hematocrit 32.2 % (37-47); Hemoglobin 11.5 g/dL (12.0-15.0); Immature Granulocytes Count 0.020 X10^3/uL (0.0-0.0); Mean Corp Hgb Conc 35.7 g/dL (32-36); Mean Corpuscular Volume 84.7 fL (81-99); Mean Platelet Vol. 9.6 fl (6.2-12.0); NRBC Flagged by Analyzer 0 % (0-5); Platelet Count 289 K/mm3 (150-450); RBC Distribution Width CV 15.0 % (11.6-14.6); RBC Distribution Width SD 46.7 fl (35.1-43.9); Red Blood Count 3.80 M/mm3 (4.2-5.4); White Blood Count 8.6 K/mm3 (4.4-11.0)
--- NOTE | 2025-06-29 14:42 | ED.VIS.DYS ---
HPI History of Present Illness Chief Complaint: Shortness of Breath Narrative Narrative: 80-year-old female past medical history of COPD, presents with increasing shortness of breath over the last week. She relates history that she was admitted to the hospital for breathing difficulty, and she had a low sodium at the time. She was discharged from the hospital, then states that she had at least a 10 pound weight gain if not currently 18 pounds. She was on Lasix for a short time, but states since her sodium was low she was taken off of it after 4 days. She endorses increased difficulty breathing over the last week, dry cough that is nonproductive. No fevers or chills. Positive weight gain and swelling of the legs. She does not wear oxygen at home, but states that she is a former smoker. [facility] Medical History (Updated 06/29/25 @ 15:09 by El Sumner MD) Osteoporosis Kidney disease GI bleed Former smoker GI bleed Renal artery stenosis HTN (hypertension) Home Medications ?Medication ?Instructions ?Recorded ?Last Taken ?Type amlodipine 10 mg tablet 10 mg PO DAILY 03/21/23 06/29/25 History metoprolol succinate 50 mg 50 mg PO BID 08/27/24 06/29/25 History tablet,extended release 24 hr ferrous sulfate 325 mg (65 mg 325 mg PO 1200,1700 #60 tabs 06/06/25 06/29/25 Rx iron) tablet (FeroSul) hydralazine 50 mg tablet 100 mg (2 x 50 mg) PO TID #90 tabs 06/06/25 06/29/25 Rx isosorbide dinitrate 20 mg tablet 40 mg (2 x 20 mg) PO TID #90 tabs 06/06/25 06/29/25 Rx pantoprazole 40 mg tablet,delayed 40 mg PO BID #60 tabs 06/06/25 06/29/25 Rx release sucralfate 1 gram tablet 1 g PO 1HR_ACHS #120 tabs 06/06/25 06/29/25 Rx Allergy/AdvReac Type Severity Reaction Status Date / Time codeine Allergy PT UNSURE Verified 05/29/25 12:50 OF REACTION Sulfa (Sulfonamide Allergy Rash Verified 05/29/25 12:50 Antibiotics) (sulfa drugs) Family History Other Asthma Cancer Hypertension Surgical History H/O cone biopsy of cervix (~1977) Social History Smoking Status: Light Smoker (<10/day) Tobacco: How many years used: 40 quit status: considering quitting ROS ROS ED ROS Narrative Review of systems positive for dry cough, increasing dyspnea over the last week, positive weight gain. No fevers or chills. No nausea or vomiting. No chest pain. Increasing shortness of breath. EXAM Physical Exam Narrative Exam Narrative: Afebrile. Vital signs noted. Nontoxic-appearing. Positive tachypnea and respiratory distress. Patient placed on BiPAP prior to being seen and evaluated with history and physical. Reported hypoxia in the 70s on room air. Decreased breath sounds bilateral bases. Cardiovascular examination regular rate and rhythm. Abdomen soft and nontender with positive bowel sounds. No guarding or rebound. Mild bilateral pedal edema. Neurological examination nonfocal, nonlateralizing, awake, alert, interactive, answering questions appropriately. Limited secondary to BiPAP. Const Vital Signs: 06/29/25 13:12 06/29/25 13:19 06/29/25 13:20 Temperature 97.2 F L Temperature Source Temporal Pulse Rate 66 Respiratory Rate 24 H Respiratory Effort Labored Accessory Muscle Use Splinting Respiratory Pattern Tachypnea Blood Pressure 199/64 H Blood Pressure Mean 109 Pulse Ox 92 83 Oxygen Delivery Method Nasal Cannula Nasal Cannula Oxygen Flow Rate (L/min) 3 6 Fraction of Inspired Oxygen (FIO2) 06/29/25 13:38 06/29/25 13:46 06/29/25 14:05 Temperature Temperature Source Pulse Rate 68 64 Respiratory Rate 22 H 20 H Respiratory Effort Respiratory Pattern Tachypnea Blood Pressure 206/69 H Blood Pressure Mean 114 Pulse Ox 95 95 97 Oxygen Delivery Method Bi-pap Bi-pap Oxygen Flow Rate (L/min) Fraction of Inspired Oxygen (FIO2) 50 06/29/25 14:13 Temperature Temperature Source Pulse Rate 65 Respiratory Rate 20 H Respiratory Effort Respiratory Pattern Normal Blood Pressure Blood Pressure Mean Pulse Ox Oxygen Delivery Method Oxygen Flow Rate (L/min) Fraction of Inspired Oxygen (FIO2) MDM MDM MDM Narrative Medical decision making narrative: The differential diagnosis includes but not limited to COPD exacerbation versus CHF versus a combination of both versus pneumonia versus pneumothorax versus respiratory failure secondary to hypertensive emergency. She had initial elevated blood pressure 199/64 and was placed on BiPAP. She continued to have elevation of her systolic blood pressure to 206. I ordered hydralazine. Comprehensive workup was pursued. EKG obtained and interpreted by myself independently as normal sinus rhythm at 69 bpm without ectopy or acute ST changes. No STEMI. I have reviewed her initial laboratory work that returned and she has normal white count of 8.6 with hemoglobin stable at 11.5, hematocrit 32.2, platelet count normal at 289. Chest x-ray interpreted by myself independently shows bilateral pleural effusions, CHF. These are new when compared to prior chest x-ray. I reviewed her echocardiogram from May, and she had an ejection fraction of 65%. She may have more of a COPD exacerbation. She was administered a DuoNeb aerosolized treatment, administered Solu-Medrol as well. In review of her BNP, it is elevated at 10,326, when compared to prior labs, this doubled from last month. She was given Lasix 40 mg intravenously. Upon repeat examination, she is mildly improved. She remains on BiPAP. I discussed the patient with Dr. Conchita Burns for admission to the PCU stepdown. Disposition is admit and stable but guarded condition. History & Record Review Discussion w/independent historian: Patient and Family Additional record(s) reviewed:: Prior inpatient record and Prior labs (BNP doubled in the last month.) Lab Data Attestation: I reviewed the patient's lab results. Labs: Laboratory Results - last 24 hr 06/29/25 13:40 WBC 8.6 RBC 3.80 L Hgb 11.5 L Hct 32.2 L MCV 84.7 MCH 30.3 MCHC 35.7 RDW Std Deviation 46.7 H RDW Coeff of Cathleen 15.0 H Plt Count 289 MPV 9.6 Immature Gran % (Auto) 0.200 Neut % (Auto) 81.7 H Lymph % (Auto) 8.4 L [place] % (Auto) 8.1 Eos % (Auto) 0.9 Baso % (Auto) 0.7 Absolute Neuts (auto) 7.0 Absolute Lymphs (auto) 0.72 L Nucleated RBC % 0 Sodium 124 L Potassium 3.8 Chloride 88 L Carbon Dioxide 21.4 Anion Gap 15 BUN 21 H Creatinine 0.95 Estim Creat Clear Calc 43.69 L Est GFR (MDRD) Non-Af 61 BUN/Creatinine Ratio 22.5 H Glucose 112 H Calcium 9.2 [place] [address] H Radiography Chest X-Ray - ED: 1 View, Read by ED Physician, Read by Radiologist, Right Effusion and Left Effusion Diagnostic Testing: Clinical Impression(s) from Imaging Studies Chest X-Ray 06/29/25 13:43 IMPRESSION: CHF. Small bilateral pleural effusions with bibasilar atelectasis and/or infiltrates. Follow-up recommended. Reading Location: [id number] Management Discussion w/another healthcare provider: Hospitalist Discharge Plan Triage Chief Complaint: Shortness of Breath ED Provider: El Sumner Dx/Rx/DC Orders Clinical Impression: Uncontrolled hypertension, Hyponatremia, Bilateral pleural effusion, CHF (congestive heart failure) Prescriptions: No Action metoprolol succinate 50 mg tablet extended release 24 hr 50 mg PO BID amlodipine 10 mg Tablet 10 mg PO DAILY hydralazine 50 mg Tablet 100 mg PO TID Qty: 90 0RF isosorbide dinitrate 20 mg Tablet 40 mg PO TID Qty: 90 0RF pantoprazole 40 mg Tablet,Delayed Release (Dr/Ec) 40 mg PO BID Qty: 60 2RF sucralfate 1 gram Tablet 1 g PO 1HR_ACHS Qty: 120 1RF ferrous sulfate [FeroSul] 325 mg (65 mg iron) Tablet 325 mg PO 1200,1700 Qty: 60 0RF Rx Instructions: Take with orange juice Primary Care Provider: Loyd Luque Referrals: Loyd Luque MD [Primary Care Provider] - Print Language: Greek
[2025-06-29 14:43] LABS: Pro- Brain NATRIURETIC PEPTIDE 10326 pg/mL (<=1800)
[2025-06-29 14:47] LABS: Anion Gap 15 (5-15); BUN 21 mg/dL (4-19); BUN/Creat Ratio 22.5 RATIO (10-20); Calcium,Total 9.2 mg/dL (7.6-11.0); Carbon Dioxide 21.4 mmol/L (21.0-32.0); Chloride 88 mmol/L (98-108); Estimated Creatinine Clearance 43.69 ml/min (50-250); Glucose 112 mg/dL (70-99); Potassium 3.8 mmol/L (3.3-5.1)
--- NOTE | 2025-06-29 16:04 | PCM.HP.STD ---
HPI - General General Date of Admission: 06/29/25 Date of Service: 06/29/25 Chief Complaint: Increase shortness of breath, weight gain, lower extremity swelling HPI Narrative ALVARADO COHEN, is a [id number] female history of hyponatremia, hypertension, renal artery stenosis presented [facility] ED 06/29/2025 due to increased weight gain, leg swelling, shortness of breath. In the ED temp 97.2, heart rate of 66 and blood pressure 199/64, respiratory rate of 24 and patient 83% on 6 L of nasal cannula and was placed on BiPAP. CBC with a hemoglobin of 11.5 and white blood cell count 8.6. BMP with sodium of 124, BUN of 21 and creatinine 0.95. BNP found to be 10,000 up from 5000-month ago and chest x-ray with small bilateral pleural effusions and vascular congestion. Patient given IV Lasix and hospitalist contacted for admission for hypoxia and fluid overload. Patient evaluated at bedside, she reports since she has been out of the hospital she has been gaining weight slowly and started having shortness of breath off and on over the past couple of weeks with her breathing worsening significantly over the past 1 to 2 days, also notes 1 week of cough with white phlegm. No fevers or chills. Notes sometime in the past couple of weeks she was given 4 days of Lasix which helped get fluid off of her but it was not continued due to her problems with sodium and she gained the weight back. Denies any fevers at home, no chest pain. Is feeling better with BiPAP and is saturating well. Also reports increased lower extremity swelling [facility] Medical History (Updated 06/29/25 @ 16:[address] Conchita Burns MD) Former smoker GI bleed GI bleed HTN (hypertension) Kidney disease Osteoporosis Renal artery stenosis Home Medications ?Medication ?Instructions ?Recorded ?Last Taken ?Type amlodipine 10 mg tablet 10 mg PO DAILY 03/21/23 06/29/25 History metoprolol succinate 50 mg 50 mg PO BID 08/27/24 06/29/25 History tablet,extended release 24 hr ferrous sulfate 325 mg (65 mg 325 mg PO 1200,1700 #60 tabs 06/06/25 06/29/25 Rx iron) tablet (FeroSul) hydralazine 50 mg tablet 100 mg (2 x 50 mg) PO TID #90 tabs 06/06/25 06/29/25 Rx isosorbide dinitrate 20 mg tablet 40 mg (2 x 20 mg) PO TID #90 tabs 06/06/25 06/29/25 Rx pantoprazole 40 mg tablet,delayed 40 mg PO BID #60 tabs 06/06/25 06/29/25 Rx release sucralfate 1 gram tablet 1 g PO 1HR_ACHS #120 tabs 06/06/25 06/29/25 Rx Allergy/AdvReac Type Severity Reaction Status Date / Time codeine Allergy PT UNSURE Verified 05/29/25 12:50 OF REACTION Sulfa (Sulfonamide Allergy Rash Verified 05/29/25 12:50 Antibiotics) (sulfa drugs) Family History Other Asthma Cancer Hypertension Surgical History H/O cone biopsy of cervix (~1977) Social History Smoking Status: Light Smoker (<10/day) Tobacco: How many years used: 40 quit status: considering quitting ROS ROS Narrative General: Denies fever/chills HENT: Denies headache, denies stuffy nose, denies sore throat EYES: Denies changes in vision Resp: Cough with white phlegm, increased shortness of breath over several weeks but more so in the past 24 to 48 hours Cardiac: Denies chest pain GI: Denies abdominal pain, denies changes in bowel, denies nausea/vomiting : Denies changes in urination Extremity: Has had some increased swelling in lower extremities MSK: Denies weakness Neuro: Denies any numbness/tingling Heme: Denies any bleeding or bruising Skin: Denies rashes Psychiatric: No complaints voiced Vital Signs Vital Signs Vital Signs: 06/29/25 13:12 06/29/25 13:19 06/29/25 13:20 Temperature 97.2 F L Temperature Source Temporal Pulse Rate 66 Respiratory Rate 24 H Respiratory Effort Labored Accessory Muscle Use Splinting Respiratory Pattern Tachypnea Blood Pressure 199/64 H Blood Pressure Mean 109 Pulse Ox 92 83 Oxygen Delivery Method Nasal Cannula Nasal Cannula Oxygen Flow Rate (L/min) 3 6 Fraction of Inspired Oxygen (FIO2) 06/29/25 13:38 06/29/25 13:46 06/29/25 14:05 Temperature Temperature Source Pulse Rate 68 64 Respiratory Rate 22 H 20 H Respiratory Effort Respiratory Pattern Tachypnea Blood Pressure 206/69 H Blood Pressure Mean 114 Pulse Ox 95 95 97 Oxygen Delivery Method Bi-pap Bi-pap Oxygen Flow Rate (L/min) Fraction of Inspired Oxygen (FIO2) 50 06/29/25 14:13 06/29/25 15:15 06/29/25 15:40 Temperature 97.2 F L Temperature Source Pulse Rate 65 70 64 Respiratory Rate 20 H 22 H 24 H Respiratory Effort Respiratory Pattern Normal Tachypnea Blood Pressure 201/78 H Blood Pressure Mean 119 Pulse Ox 98 97 Oxygen Delivery Method Oxygen Flow Rate (L/min) Fraction of Inspired Oxygen (FIO2) 35 06/29/25 15:50 Temperature Temperature Source Pulse Rate 67 Respiratory Rate 22 H Respiratory Effort Respiratory Pattern Blood Pressure 204/71 H Blood Pressure Mean 115 Pulse Ox 95 Oxygen Delivery Method Bi-pap Oxygen Flow Rate (L/min) Fraction of Inspired Oxygen (FIO2) Weight Weight: 65.5 kg Body Mass Index (BMI) 25.5 Physical Exam Narrative General: Alert, oriented, no apparent distress HEENT: Atraumatic, normocephalic Eyes: Anicteric, normal conjunctiva, extraocular movements grossly intact Neck: Supple Respiratory: Patient appears comfortable on BiPAP, does have crackles bilaterally Cardiovascular: Regular rate and rhythm GI: Soft, nontender, nondistended Extremities: No significant pitting in legs Musculoskeletal: Moving all extremities Neuro: No overt focal neurological deficits Skin: No rashes appreciated Psych: Cooperative Results Lab / Micro Data 06/29/25 13:40 06/29/25 13:40 Labs: Laboratory Results - last 24 hr 06/29/25 13:40: WBC 8.6, RBC 3.80 L, Hgb 11.5 L, Hct 32.2 L, MCV 84.7, MCH 30.3, MCHC 35.7, RDW Std Deviation 46.7 H, RDW Coeff of Cathleen 15.0 H, Plt Count 289, MPV 9.6, Immature Gran % (Auto) 0.200, Neut % (Auto) 81.7 H, Lymph % (Auto) 8.4 L, [place] % (Auto) 8.1, Eos % (Auto) 0.9, Baso % (Auto) 0.7, Absolute Neuts (auto) 7.0, Absolute Lymphs (auto) 0.72 L, Nucleated RBC % 0, Sodium 124 L, Potassium 3.8, Chloride 88 L, Carbon Dioxide 21.4, Anion Gap 15, BUN 21 H, Creatinine 0.95, Estim Creat Clear Calc 43.69 L, Est GFR (MDRD) Non-Af 61, BUN/Creatinine Ratio 22.5 H, Glucose 112 H, Calcium 9.2, [place] [address] H Micro: Microbiology 06/29/25 13:50 Mucosa - Nose SARS-CoV-2, Influenza & RSV (PCR) - Final Imaging Radiology Impression Chest X-Ray 06/29/25 13:43 IMPRESSION: CHF. Small bilateral pleural effusions with bibasilar atelectasis and/or infiltrates. Follow-up recommended. Reading Location: [id number] Assessment & Plan Assessment/Plan (1) Fluid overload: (2) Hyponatremia: PLAN: Plan # Hypoxia secondary to pulmonary edema suspected secondary to hypertensive emergency - Most recent echocardiogram 05/31/2025 with PASP of 52, moderate pulmonary hypertension, moderate 2+ mitral valve insufficiency with normal EF of 65% and normal LV size -There is no noted diastolic or systolic dysfunction however chest x-ray shows pulmonary edema and small pleural effusions and proBNP up to 10,326, 1 month ago it was in the 5000's -Patient has slowly been gaining weight after being taken off of her hydrochlorothiazide last admission due to hyponatremia and has not been on the diuretic and then significantly worsened in the past 24 to 48 hours -Blood pressures have been in the 200s systolic in the ED -Suspect this may be hypertensive emergency especially given lack of known heart failure with an echo 1 month ago -Will start patient on a Cardene drip and start IV Lasix -Will adjust patient's home medications to improve blood pressure control, will switch metoprolol to Coreg at equivalent dose to hopefully improve blood pressure control, can always uptitrate this dose further if heart rate allows -May need discharged on a diuretic in addition to her other medications - Fluid restriction -Monitor intake, output, daily weights - Patient is improving after 1 dose of Lasix and BiPAP # Hyponatremia - Sodium of 124, was admitted late last month due to severe hyponatremia with a sodium of 106 that slowly improved and on discharge was 126 - On 06/21 sodium was 132 - May have had further downtrend secondary to hypervolemia - Will trend BMPs to verify sodium without further downtrends # Renal artery stenosis - Has been evaluated by vascular multiple times with no intervention currently indicated - Do suspect patient had decompensation due to adjustment in blood pressure medications on top of this but do not necessarily think she needs transferred for any acute intervention suspect that medication adjustments will suffice and she can follow-up outpatient with vascular again if indicated #GERD -Continue PPI #DVT ppx: SCDs Conchita Burns MD Charges/Coding Visit Charges Inpatient E&M: 95354 Init Hosp L2
[2025-06-29] MEDS: 0.9% Saline Lock 10 ML Syringe IV (17:13)
[2025-06-29] MEDS: NICARdipine 25 MG in 0.9% Normal Saline (250mL Bag) 240 ML 50 MG CONT INF (17:15)
[2025-06-29] MEDS: Isosorbide DN 20 MG Tablet 40 MG PO (20:21)
[2025-06-29 21:01] LABS: Anion Gap 16 (5-15); BUN 22 mg/dL (4-19); BUN/Creat Ratio 19.6 RATIO (10-20); Calcium,Total 9.3 mg/dL (7.6-11.0); Carbon Dioxide 20.8 mmol/L (21.0-32.0); Chloride 87 mmol/L (98-108); Estimated Creatinine Clearance 37.09 ml/min (50-250); Glucose 126 mg/dL (70-99); Potassium 4.6 mmol/L (3.3-5.1)
--- OUTSIDE RECORDS SUMMARY | 2025-06-29 21:55 | XMS RPT_ITS | CCD ---
Author Organization [facility] Care Team Providers Care Humanities Professor Name Role Phone Blakevin EXCEL SPECIALIST.MEDICAL POLICY SPECIALIST, DNP, [place] Primary Care Provider Glenny Luque MD Primary Care Provider Glenny Luque MD Primary Care Provider Glenny Luque MD Primary Care Provider Tejal EXCEL SPECIALIST.Laurel JORDAN Unavailable Mahendra EXCEL SPECIALIST.Hans JORDAN Unavailable Tejal EXCEL SPECIALIST.Laurel JORDAN Unavailable Dr. Glenny Luque MD Primary Care Provider Dr. Del Leyva DO Emergency Provider Grant RUELAS, Dr. Arango Admit Provider Dr. Conchita Burns MD Attending Provider Dr. Conchita Burns MD Other Provider Dr. Tiffanie Govea DO Attending Provider Dr. Glenny Wetzel DO Other Provider Dr. Nora Govea DO Other Provider Dr. Porfirio Mei MD Other Provider Dr. Glenny Wetzel DO Attending Provider Dr. Latoya Mo MD Other Provider Dr. Tiffanie Govea DO Other Provider Dr. Lisandro Bernardo MD Attending Provider Dr. Juan Manuel Valdovinos DO Attending Provider Dr. Porfirio Mei MD Attending Provider [phone] ELDERBROCK, GLENNY D Primary Care Unavailable ELDERBROCK, GLENNY D Attending Unavailable ELDERBROCK, GLENNY D Primary Care Unavailable JEFERSON, NORA Referring Unavailable ELDERBROCK, GLENNY D Attending Unavailable ELDERBROCK, GLENNY D Primary Care Unavailable ELDERBROCK, GLENNY D Primary Care Unavailable ELDERBROCK, GLENNY D Attending Unavailable ELDERBROCK, GLENNY D Referring Unavailable ELDERBROCK, GLENNY D Primary Care Unavailable ELDERBROCK, GLENNY D Primary Care Unavailable ELDERBROCK, GLENNY D Primary Care Unavailable ELDERBROCK, GLENNY D Referring Unavailable ELDERBROCK, GLENNY D Primary Care Unavailable ELDERBROCK, GLENNY D Referring Unavailable ELDERBROCK, GLENNY D Primary Care Unavailable ELDERBROCK, GLENNY D Referring Unavailable Jeferson GILLESPIE, Dr. Melendez Attending Provider Jeferson GILLESPIE, Dr. Melendez Referring Provider Dr. Tiffanie Govea DO Referring Provider Jeferson GILLESPIE, Dr. Moreno Referring Provider Nora Govea Attending Unavailable Quang Goveaine Referring Unavailable Elderbrock, Glenny Primary Care Unavailable Burns, Conchita Consulting Unavailable Burns, Conchita Admitting Unavailable Tiffanie Govea Attending Unavailable Elderbrock, Glenny Primary Care Unavailable Tereletsky, Glenny Consulting Unavailable Jeferson, Nora Consulting Unavailable Hamida, Porfirio Consulting Unavailable Tiffanie Govea Consulting Unavailable TereletsGlenny tripathi Attending Unavailable Tanphaichitr, Natthavat Consulting Unavaila ble Conchita Burns Attending Unavailable Elderbrock, Glenny Primary Care Unavailable Nora Govea Attending Unavailable Jeferson, Nora Referring Unavailable PomonaInésic Attending Unavailable Hamida, Porfirio Referring Unavailable Elderbrock, Glenny Primary Care Unavailable Ordonez, Carissa Consulting Unavailable Quang Goveaine Attending Unavailable Jeferson, Nora Referring Unavailable Elderbrock, Glenny Primary Care Unavailable Burns, Conchita Admitting Unavailable Burns, Conchita Consulting Unavailable JefersonFareedyn Attending Unavailable Elderbrock, Glenny Primary Care Unavailable Tereletsky, Glenny Consulting Unavailable Jeferson, Nora Consulting Unavailable Hamida, Porfirio Consulting Unavailable Elderbrock, Glenny Primary Care Unavailable Tiffanie Govea Attending Unavailable Jeferson Tiffanie Referring Unavailable Elderbrock, Glenny Referring Unavailable Daria Johnson Attending Unavailable Elderbrock, Glenny Primary Care Unavailable Lisandro Bernardo Attending Unavailable Elderbrock, Glenny Primary Care Unavailable Hamida, Porfirio Attending Unavailable Hamida, Porfirio Referring Unavailable Elderbrock, Glenny Primary Care Unavailable Ordonez, Carissa Consulting Unavailable Pomona, Porfirio Consulting Unavailable Juan Manuel Valdovinos Attending Unavailable Nora Govea Referring Unavailable Hamida, Porfirio Attending Unavailable Pomona, Porfirio Attending Unavailable [facility] Glenny Primary Care Unavailable [facility], Glenny Referring Unavailable [facility], Glenny Primary Care Unavailable [facility], Glenny Referring Unavailable Ordonez, Carissa Attending Unavailable Dr. Tiffanie Govae DO Referring Provider Dr. Nora Govea DO Referring Provider El Sumner MD Emergency Provider [phone] Grant RUELAS, Dr. Arango Attending Provider Allergies Allergy Classification Reported Allergen(s) Allergy Type Date of Onset Reaction(s) Facility (20 sources) Codeine; Translations: [CODEINE] Drug Allergy 5 PT UNSURE OF REACTION [facility] Work Phone: (20 sources) Spironolactone; Translations: [SPIRONOLACTONE] Drug Allergy 9 Other: See Comments [facility] (20 sources) Sulfonamides (Antibiotic); Translations: [SULFA (SULFONAMIDE ANTIBIOTICS)] Propensity to adverse reactions 5 [facility] Work Phone: (6 sources) Sulfonamides (Antibiotic) Allergy to substance 5 [facility] (1 source) Codeine Drug Allergy 5 [facility] (1 source) Sulfonamides (Antibiotic) Drug allergy (disorder) 5 [facility] Medications Current Medications Medication Drug Class(es) [...] take 1 tablet by mouth once daily Amlodipine 10 mg Tablet Active 10 mg PO DAILY March 21, 2023 12:00am Comment on above: TAKE 1 TABLET BY [...] above: Take one(1) tablet t wice daily. ferrous sulfate 325 mg oral tablet (5 sources) Start: 06-06-2025 Ferrous Sulfate (Ferosul) 325 mg [...] day. isosorbide dinitrate 20 mg oral tablet (5 sources) Nitrate Vasodilator Start: 06-06-2025 Isosorbide Dinitrate 20 mg Tablet Active 40 mg PO THREE TIMES A DAY 90 0 June 06, 2025 12:00am 24 hr metoprolol succinate 50 mg extended release oral tablet (20 sources) beta-Adrenergic Benita Start: 08-27-2024 take 1 tablet by mouth twice daily Metoprolol Succinate 50 mg tablet extended release 24 hr Active 50 mg PO TWICE A DAY August 27, 2024 12:00am Start: 05-08-2023 End: 03-09-2024 take 1 tablet [...] tablet by lori th twice a day [id number]-tefsj-calcium carb-K1 (WOMEN'S 50 PLUS MULTIVITAMIN) 400 mcg-500 mg calcium-20 mcg tab (9 sources) Start: take 1 tablet by mouth once daily sx-oxy-iazyz-calcium carb-K1 (WOMEN'S 50 PLUS MULTIVITAMIN) 400 mcg-500 mg calcium-20 mcg tab Take 1 tablet by mouth once daily. 11/26/2024 Active pantoprazole 40 mg delayed release oral tablet (5 sources) Proton Pump Inhibitor Start: take 1 tablet by mouth twice daily Pantoprazole 40 mg Tablet,Delayed Release (Dr/Ec) Active 40 mg PO TWICE A DAY 60 2 June 06, 2025 12:00am sucralfate 1000 mg oral tablet (5 sources) Aluminum Complex Start: take 1 tablet by mouth 1 hour(s) before mealtime Sucralfate 1 gram Tablet Active 1 g PO ONE HOURS BEFORE MEALS & BED 120 1 June 06, 2025 12:00am Completed/Discontinued Medications Medication Drug Class(es) Dates Sig (Normalized) Sig (Original) ascorbic acid 1000 mg oral tablet (19 sources) Vitamin C Start: 01-16-2007 End: 02-17-2024 VITAMIN C 1,000 MG TAB Take one(1) tablet daily. 0 01/16/2007 02/17/2024 Discontinued (Course of therapy completed) Comment on above: Take one(1) tablet d aily. calcium carbonate 1500 mg oral tablet (6 sources) Start: 08-27-2024 End: 05-29-2025 Calcium Carbonate (Calcium 600) 600 mg calcium (1,500 mg) tablet Discontinued 1200 mg PO daily August 27, 2024 12:00am May 29, 2025 2:10pm with [place] D chlorthalidone 25 mg oral tablet (20 sources) Thiazide-like Diuretic Start: 02-17-2024 End: 06-06-2025 take 1 tablet by mouth once daily Chlorthalidone 25 mg tablet Discontinued 25 mg PO daily August 27, 2024 12:00am June 06, 2025 12:17pm Comment on above: Take 1 tablet by lori once daily. doxycycline hyclate 100 mg oral tablet (6 sources) Tetracycline-cl ass Drug Start: 10-21-2024 End: 10-26-2024 take 1 [...] above: Take one(1) capsule daily. omega 3 furosemide 20 mg oral tablet (1 source) Loop Diuretic Start: 2024 End: 2024 take 1 tablet by mouth once daily Furosemide 20 mg tablet Discontinued 20 mg PO DAILY June 29, 2025 12:00am June 29, 2025 2:34pm hydroCHLOROthiazide 12.5 mg oral capsule (20 sources) [...] on above: TAKE 1 CAPSULE BY MO UT ONCE DAILY Take 1 capsule by mo uth once daily. lisinopril 30 mg oral tablet (20 sources) Angiotensin Converting Enzyme Inhibitor Start: End: take 1 tablet by mouth twice daily Lisinopril 30 mg tablet Discontinued 30 mg PO TWICE A DAY June 29, 2025 12:00am June 29, 2025 2:34pm Start: 08-27-2024 End: 10-06-2024 Lisinopril 40 mg tablet Disc ontinued 40 mg PO DAILY August 27, 2024 1:18pm October 06, 2024 1:30pm 30 mg bid Start: 02-17-2024 End: 06-06-2025 take 1 tablet by mouth twice daily Lisinopril 30 mg tablet Discontinued 30 mg PO TWICE A DAY October 06, 2024 1:00am June 06, 2025 12:18pm High blood pressure Start: 03-21-2023 End: 08-27-2024 take 2 tablets [...] by lori th two times a day. Multivitamin (Daily Multi-Vitamin) tablet (6 sources) Start: 08-27-2024 End: 05-29-2025 Multivitamin (Daily [...] at 1200, - Pharmaceutical Waste: Oxidizer - sodium bicarbonate 650 mg oral tablet (5 sources) Start: 06-06-2025 End: 06-29-2025 take 1 tablet by mouth twice daily Sodium Bicarbonate 650 mg Tablet Discontinued 650 mg PO TWICE A DAY 60 0 June 06, 2025 12:00am June 29, 2025 2:34pm vitamin b12 0.5 mg oral tablet (19 sources) Vitamin B12 Start: 01-16-2007 End: 02-17-2024 CYANOCOBALAMIN 500 MCG TAB Take one(1) tablet daily. B12 0 01/16/2007 02/17/2024 Discontinued (Course of therapy completed) Comment on above: Take one(1) tablet d aily. B12 Problems Active Problems Problem Classification Problem Date Documented Da te Episodic/Chronic Acute and unspecified renal failure (11 sources) Acute renal failure syndrome; Translations: [Acute kidney failure, unspecified] Onset: 06-03-2025 Episodic Chronic kidney disease (1 source) Chronic kidney disease; Translations: [Chronic kidney disease, stage 3a] Onset: Congestive heart failure; nonhypertensive (2 sources) Congestive heart failure; Translations: [Heart failure, unspecified] 06-29-2025 Chronic Deficiency and other anemia (15 sources) Anemia; Translations: [Anemia, unspecified] 06-01-2025 Episodic Deficiency and other anemia (1 source) Anemia, unspecified; Translations: [Anemia, unspecified] Onset: Episodic Disorders of lipid metabolism (20 sources) Hyperlipidemia; Translations: [Hyperlipidemia, unspecified] Onset: 3 03-16-2016 Chronic Essential hypertension (20 sources) Benign essential hypertension; Translations: [Essential (primary) hypertension] Onset: 5 08-01-2018 Chronic Fluid and electrolyte disorders (20 sources) Hypokalemia; Translations: [Hypokalemia] Onset: 4 Resolved: 7 04-10-2017 Episodic Gastrointestinal hemorrhage (11 sources) Gastrointestinal hemorrhage; Translations: [Gastrointestinal hemorrhage, unspecified] Onset: 5 06-01-2025 Episodic Osteoporosis (20 sources) Osteoporosis; Translations: [Age-related osteoporosis without current pathological fracture] Onset: 7 04-10-2017 Chronic Other circulatory disease (10 sources) Low blood pressure; Translations: [Hypotension, unspecified] 06-03-2025 Episodic Other circulatory disease (1 source) Hypotension, unspecified; Translations: [Hypotension, unspecified] Onset: Episodic Other connective tissue disease (1 source) Peripheral muscle fatigue; Translations: [Other symptoms and signs involving the musculoskeletal system] 11-26-2024 Episodic Other connective tissue disease (10 sources) Muscle weakness of limb; Translations: [Other symptoms and signs involving the musculoskeletal system] 06-02-2025 Episodic Other connective tissue disease (1 source) Other symptoms and signs involving the musculoskeletal system; Translations: [Other symptoms and signs involving the musculoskeletal system] Onset: Episodic Other injuries and conditions due to external causes (1 source) Open wound; Translations: [Other injury of unspecified body region, initial encounter] 07-24-2024 Episodic Other nervous system disorders (10 sources) Paresthesia of lower extremity; Translations: [Paresthesia of skin] 06-02-2025 Episodic Other nervous system disorders (1 source) Paresthesia of skin; Translations: [Paresthesia of skin] Onset: 5 Episodic Other nutritional; endocrine; and metabolic disorders (10 sources) Hypomagnesemia; Translations: [Hypomagnesemia] 05-30-2025 Chronic Other nutritional; endocrine; and metabolic disorders (1 source) Hypomagnesemia; Translations: [Hypomagnesemia] Onset: 5 Chronic Other screening for suspected conditions (not mental disorders or infectious disease) (5 sources) Patient encounter status; Translations: [Encounter for screening mammogram for malignant neoplasm of breast] Episodic Peripheral and visceral atherosclerosis (15 sources) Intermittent claudication; Translations: [Peripheral vascular disease, unspecified] Onset: 4 11-26-2024 Chronic Pleurisy; pneumothorax; pulmonary collapse (2 sources) Bilateral pleural effusion; Translations: [Pleural effusion, not elsewhere classified] 06-29-2025 Episodic Screening and history of mental health and substance abuse codes (2 sources) Encounter for screening for depression; Translations: [Encounter for screening examination for other mental health and behavioral disorders] Onset: 5 Episodic Substance-related disorders (2 sources) Tobacco user; Translations: [Nicotine dependence, unspecified, uncomplicated] 11-26-2024 Chronic Unclassified (5 sources) Please call his office Saturday and set up an appointment to be seen within the next month for hospital follow-up Unclassified (1 source) Resistant hypertension; Translations: [Resistant hypertension] Onset: 5 Past or Other Problems Problem Classification Problem [...] Test Name Value Interpretation Reference Range Facility Absolute lymphocyte countOrd ered By: El Sumner on 06-29-2025 Lymphocytes Auto (Unsp spec) [#/Vol] 0.72 10*3/uL Low 0.83-4.51 [facility] Absolute neutrophil countOrd ered By: El Sumner on 06-29-2025 Neutrophils (Bld) [#/Vol] 7.0 10*3/uL 2.0-7.7 [facility] Anion gap in Serum or Plasma Ordered By: El Sumner on 06-29-2025 Anion gap [Moles/Vol] 15 mmol/L 5-15 [facility] Automated lymphocyte count a s percentage of total leukocytesOrdered By: El Sumner on 06-29-2025 Lymphocytes/100 WBC Auto (Unsp spec) 8.4 % Low 19-41 [facility] BUN/creatinine ratioOrdered By: El Sumner on 06-29-2025 Urea nitrogen/Creatinine [Mass ratio] 22.5 mg/mg High 10-20 [facility] Basophil percentageOrdered B y: El Sumner on 06-29-2025 Basophils/100 WBC (Bld) 0.7 % 0-1 [facility] Carbon dioxide, total [Moles /volume] in Central venous bloodOrdered By: El Sumner on 06-29-2025 CO2 [Moles/Vol] 21.4 mmol/L 21.0-32.0 [facility] Chloride assayOrdered By: Solis Sumner on 06-29-2025 Chloride [Moles/Vol] 88 mmol/L Low 98-108 [facility] Eosinophil percentageOrdered By: El Sumner on 06-29-2025 Eosinophils/100 WBC (Bld) 0.9 % 0-5 [facility] Erythrocyte distribution wid th ratioOrdered By: El Sumner on 06-29-2025 Erythrocyte distribution width (RBC) [Ratio] 15.0 % High 11.6-14.6 [facility] Erythrocyte distribution wid th standard deviationOrdered By: El Sumner on 06-29-2025 Erythrocyte distribution width (RBC) [Ratio] 46.7 fl High 35.1-43.9 [facility] Glomerular filtration rate ( GFR) estimation/1.73 sq m using serum, plasma, or whole bOrdered By: El Sumner on 06-29-2025 GFR/1.73 sq M.predicted among non-blacks MDRD (S/P/Bld) [Vol rate/Area] 61 mL/min/{1.73_m2} >60 [facility] Comment on above: mL/min/1.73m2 CKD-EP I Creatinine Equation (2020) Hematocrit Auto (Bld) [Volum e fraction]Ordered By: El Sumner on 06-29-2025 Hematocrit (Bld) [Volume fraction] 32.2 % Low 37-47 [facility] Hemoglobin measurementOrdere d By: El Sumner on 06-29-2025 Hemoglobin (Bld) [Mass/Vol] 11.5 g/dL Low 12.0-15.0 [facility] Immature granulocytes/100 WB C Auto (Bld)Ordered By: El Sumner on 06-29-2025 Immature granulocytes/100 WBC (Bld) 0.200 % 0.0-0.9 [facility] Comment on above: IG% - Immature Granu locytes (promyelocytes, myelocytes and metamyelocytes) > 1% indicates that a LEFT SHIFT is Present. Influenza virus A and B and SARS-CoV-2 (COVID-19) and Respiratory syncytial virus RNAOrdered By: El Sumner on 06-29-2025 SARS-CoV-2 (COVID-19) RNA CHRISTINA+probe Ql (Unsp spec) [facility] MCV (mean corpuscular volume ) determinationOrdered By: El Sumner on 06-29-2025 MCV (RBC) [Entitic vol] 84.7 fL 81-99 [facility] Mean corpuscular hemoglobin (MCH) determinationOrdered By: El Sumner on 06-29-2025 MCH (RBC) [Entitic mass] 30.3 pg 27.0-32.0 [facility] Mean corpuscular hemoglobin concentration (MCHC) determinationOrdered By: El Sumner on 06-29-2025 MCHC (RBC) [Mass/Vol] 35.7 g/dL 32-36 [facility] Mean platelet volume determi nationOrdered By: El Sumner on 06-29-2025 Platelet mean volume (Bld) [Entitic vol] 9.6 fL 6.2-12.0 [facility] Monocyte percentageOrdered B y: El Sumner on 06-29-2025 Monocytes/100 WBC (Bld) 8.1 % 0-10 [facility] Natriuretic peptide.B prohor pooja N-Terminal [Mass/volume] in Serum or PlasmaOrdered By: El Sumner on 06-29-2025 Natriuretic peptide.B prohormone N-Terminal [Mass/Vol] 56383 pg/mL High <1800 [facility] Comment on above: Heart Failure Unlike ly: < 300 pg/mLHeart Failure Likely< 50 Years: > 450 pg/mL50-75 Years: > 900 pg/mL>75 Years: > 1800 pg/mL Neutrophil percentageOrdered By: El Sumner on 06-29-2025 Neutrophils/100 WBC (Bld) 81.7 % High 47-70 [facility] Nucleated red blood cell per centageOrdered By: El Sumner on 06-29-2025 Nucleated RBC/100 WBC (Bld) [Ratio] 0 % 0-5 [facility] Platelet countOrdered By: Solis Sumner on 06-29-2025 Platelets (Bld) [#/Vol] 289 10*3/uL 150-450 [facility] Potassium measurement (mass/ volume)Ordered By: El Sumner on 06-29-2025 Potassium (Unsp spec) [Mass/Vol] 3.8 mmol/L 3.3-5.1 [facility] Comment on above: Hemolysis present, R esults could be affected. RBC Auto (Bld) [#/Vol]Ordere d By: El Sumner on 06-29-2025 RBC (Bld) [#/Vol] 3.80 10*6/uL Low 4.2-5.4 [facility] Serum creatinine measurement (mass/volume)Ordered By: El Sumner on 06-29-2025 Creatinine [Mass/Vol] 0.95 mg/dL 0.70-1.20 [facility] Serum glucose measurement (m ass/volume)Ordered By: El Sumner on 06-29-2025 Glucose [Mass/Vol] 112 mg/dL High 70-99 [facility] Serum or plasma calcium tisha urement (mass/volume)Ordered By: El Sumner on 06-29-2025 Calcium [Mass/Vol] 9.2 mg/dL 7.6-11.0 [facility] Serum or plasma urea nitroge n measurement (mass/volume)Ordered By: El Sumner on 06-29-2025 Urea nitrogen [Mass/Vol] 21 mg/dL High 4-19 [facility] Sodium levelOrdered By: El Sumner on 06-29-2025 Sodium [Moles/Vol] 124 mmol/L Low 133-145 [facility] White blood cell (WBC) count Ordered By: El Sumner on 06-29-2025 WBC (Bld) [#/Vol] 8.6 10*3/uL 4.4-11.0 [facility] OT General Evaluationon 06-04 OT General Evaluation Normal [facility] OT General Evaluation Normal [facility] Albumin, Serumon 06-21-2025 Albumin [Mass/Vol] 4.0 g/dL Normal 3.4-4.8 [facility] Comment on above: Order Comment: DR ELDRIDGE CHANGED ORDER FROM BMP TO RENAL PROFILE. Performed By: #### L 500.2500, L501.1800, L501.2300 ####[facility] [id number] [place], [address] Anion gap in Serum or Plasma Ordered By: Nora Govea on 06-21-2025 Anion gap [Moles/Vol] 14 mmol/L 5-15 [facility] BUN/creatinine ratioOrdered By: Nora Govea on 06-21-2025 Urea nitrogen/Creatinine [Mass ratio] 15.8 mg/mg 10-20 [facility] Basic Metabolic Profile (BMP )on 06-21-2025 BUN/CRE 15.8 RATIO Normal - [facility] Comment on above: Order Comment: DR ELDRIDGE CHANGED ORDER FROM BMP TO RENAL PROFILE. Performed By: #### L 500.2500, L501.1800, L501.2300 ####[facility] [id number] [place], [place], [id number] Calcium [Mass/Vol] 9.3 mg/dL Normal 7.6-11.0 [facility] Comment on above: Order Comment: DR ELDRIDGE CHANGED ORDER FROM BMP TO RENAL PROFILE. Performed By: #### L 500.2500, L501.1800, L501.2300 ####[facility] [id number] [place], [address] Chloride [Moles/Vol] 95 mmol/L Low 98-108 [facility] Comment on above: Order Comment: DR ELDRIDGE CHANGED ORDER FROM BMP TO RENAL PROFILE. Performed By: #### L 500.2500, L501.1800, L501.2300 ####[facility] [id number] [place], [address] CO2 [Moles/Vol] 24.0 mmol/L Normal 21.0-32.0 [facility] Comment on above: Order Comment: DR ELDRIDGE CHANGED ORDER FROM BMP TO RENAL PROFILE. Performed By: #### L 500.2500, L501.1800, L501.2300 ####[facility] [id number] [place], [address] Creatinine [Mass/Vol] 1.23 mg/dL High 0.70-1.20 [facility] Comment on above: Order Comment: DR ELDRIDGE CHANGED ORDER FROM BMP TO RENAL PROFILE. Performed By: #### L 500.2500, L501.1800, L501.2300 ####[facility] [id number] [place], [address] GAP 14 Normal 5-15 [facility] Comment on above: Order Comment: DR ELDRIDGE CHANGED ORDER FROM BMP TO RENAL PROFILE. Performed By: #### L 500.2500, L501.1800, L501.2300 ####[facility] [id number] [place], [address] GFR/1.73 sq M.predicted among non-blacks MDRD (S/P/Bld) [Vol rate/Area] 45 mL/min/{1.73_m2} Low >60 [facility] Comment on above: Order Comment: DR ELDRIDGE CHANGED ORDER FROM BMP TO RENAL PROFILE. Result Comment: mL/m in/1.73m2 CKD-EPI Creatinine Equation (2020) Performed By: #### L 500.2500, L501.1800, L501.2300 ####[facility] [id number] [place], [address] Glucose [Mass/Vol] 106 mg/dL High 70-99 [facility] Comment on above: Order Comment: DR ELDRIDGE CHANGED ORDER FROM BMP TO RENAL PROFILE. Performed By: #### L 500.2500, L501.1800, L501.2300 ####[facility] [id number] [place], [address] Potassium [Moles/Vol] 3.4 mmol/L Normal 3.3-5.1 [facility] Comment on above: Order Comment: DR ELDRIDGE CHANGED ORDER FROM BMP TO RENAL PROFILE. Performed By: #### L 500.2500, L501.1800, L501.2300 ####[facility] [id number] [place], [address] Sodium [Moles/Vol] 132 mmol/L Low 133-145 [facility] Comment on above: Order Comment: DR ELDRIDGE CHANGED ORDER FROM BMP TO RENAL PROFILE. Performed By: #### L 500.2500, L501.1800, L501.2300 ####[facility] [id number] [place], [address] Urea nitrogen [Mass/Vol] 19 mg/dL Normal 4-19 [facility] Comment on above: Order Comment: DR ELDRIDGE CHANGED ORDER FROM BMP TO RENAL PROFILE. Performed By: #### L 500.2500, L501.1800, L501.2300 ####[facility] [id number] [place], [address] Carbon dioxide, total [Moles /volume] in Central venous bloodOrdered By: Nora Govea on 06-21-2025 CO2 [Moles/Vol] 24.0 mmol/L 21.0-32.0 [facility] Chloride assayOrdered By: Ryder Govea on 06-21-2025 Chloride [Moles/Vol] 95 mmol/L Low 98-108 [facility] Glomerular filtration rate ( GFR) estimation/1.73 sq m using serum, plasma, or whole bOrdered By: Nora Govea on 06-21-2025 GFR/1.73 sq M.predicted among non-blacks MDRD (S/P/Bld) [Vol rate/Area] 45 mL/min/{1.73_m2} Low >60 [facility] Comment on above: mL/min/1.73m2 CKD-EP I Creatinine Equation (2020) Phosphoruson 06-21-2025 Phosphate [Mass/Vol] 3.1 mg/dL Normal 2.7-4.5 [facility] [place] Comment on above: Order Comment: DR ELDRIDGE CHANGED ORDER FROM BMP TO RENAL PROFILE. Performed By: #### L 500.2500, L501.1800, L501.2300 ####[facility] [address] [place], [place], [address] Potassium measurement (mass/ volume)Ordered By: Nora Govea on 06-21-2025 Potassium (Unsp spec) [Mass/Vol] 3.4 mmol/L 3.3-5.1 [facility] Serum creatinine measurement (mass/volume)Ordered By: Nora Govea on 06-21-2025 Creatinine [Mass/Vol] 1.23 mg/dL High 0.70-1.20 [facility] Serum glucose measurement (m ass/volume)Ordered By: Nora Govea on 06-21-2025 Glucose [Mass/Vol] 106 mg/dL High 70-99 [facility] Serum or plasma albumin tisha urement (mass/volume)Ordered By: Nora Govea on 06-21-2025 Albumin [Mass/Vol] 4.0 g/dL 3.4-4.8 [facility] Serum or plasma calcium tisha urement (mass/volume)Ordered By: Nora Govea on 06-21-2025 Calcium [Mass/Vol] 9.3 mg/dL 7.6-11.0 [facility] Serum or plasma urea nitroge n measurement (mass/volume)Ordered By: Nora Govea on 06-21-2025 Urea nitrogen [Mass/Vol] 19 mg/dL - [facility] Sodium levelOrdered By: Dinh Govea on 06-21-2025 Sodium [Moles/Vol] 132 mmol/L Low 133-145 [facility] Anion gap in Serum or Plasma Ordered By: Nora Govea on 06-14-2025 Anion gap [Moles/Vol] 13 mmol/L - [facility] BUN/creatinine ratioOrdered By: Nora Govea on 06-14-2025 Urea nitrogen/Creatinine [Mass ratio] 17.3 mg/mg - [facility] Basic Metabolic Profile (BMP )on 06-14-2025 BUN/CRE 17.3 RATIO Normal - [facility] Comment on above: Performed By: #### L 500.2500 ####[facility] [address] [place], [address] Calcium [Mass/Vol] 9.1 mg/dL Normal 7.6-11.0 [facility] Comment on above: Performed By: #### L 500.2500 ####[facility] [address] [place], [address] Chloride [Moles/Vol] 94 mmol/L Low 98-108 [facility] [place] Comment on above: Performed By: #### L 500.2500 ####[facility] [address] [place], [address] CO2 [Moles/Vol] 20.6 mmol/L Low 21.0-32.0 [facility] Comment on above: Performed By: #### L 500.2500 ####[facility] [address] [place], [address] Creatinine [Mass/Vol] 1.24 mg/dL High 0.70-1.20 [facility] Comment on above: Performed By: #### L 500.2500 ####[facility] [address] [place], [address] GAP 13 Normal - [facility] Comment on above: Performed By: #### L 500.2500 ####[facility] [address] [place], [address] GFR/1.73 sq M.predicted among non-blacks MDRD (S/P/Bld) [Vol rate/Area] 45 mL/min/{1.73_m2} Low >60 [facility] Comment on above: Result Comment: mL/m in/1.73m2 CKD-EPI Creatinine Equation (2020) Performed By: #### L 500.2500 ####[facility] [address] [place], [address] Glucose [Mass/Vol] 98 mg/dL Normal 70-99 [facility] Comment on above: Performed By: #### L 500.2500 ####[facility] [address] [place], [address] Potassium [Moles/Vol] 3.9 mmol/L Normal 3.3-5.1 [facility] Comment on above: Performed By: #### L 500.2500 ####[facility] [address] [place], [address] Sodium [Moles/Vol] 128 mmol/L Low 133-145 [facility] Comment on above: Performed By: #### L 500.2500 ####[facility] [address] [place], [address] Urea nitrogen [Mass/Vol] 21 mg/dL High 4-19 [facility] Comment on above: Performed By: #### L 500.2500 ####[facility] [address] [place], [address] Carbon dioxide, total [Moles /volume] in Central venous bloodOrdered By: Nora Govea on 06-14-2025 CO2 [Moles/Vol] 20.6 mmol/L Low 21.0-32.0 [facility] Chloride assayOrdered By: Ryder Govea on 06-14-2025 Chloride [Moles/Vol] 94 mmol/L Low 98-108 [facility] [place] Glomerular filtration rate ( GFR) estimation/1.73 sq m using serum, plasma, or whole bOrdered By: Nora Govea on 06-14-2025 GFR/1.73 sq M.predicted among non-blacks MDRD (S/P/Bld) [Vol rate/Area] 45 mL/min/{1.73_m2} Low >60 [facility] Comment on above: mL/min/1.73m2 CKD-EP I Creatinine Equation (2020) Inital Evaluation (1) - PTon 06-14-2025 Inital Evaluation (1) - PT Normal [facility] Potassium measurement (mass/ volume)Ordered By: Nora Govea on 06-14-2025 Potassium (Unsp spec) [Mass/Vol] 3.9 mmol/L 3.3-5.1 [facility] Serum creatinine measurement (mass/volume)Ordered By: Nora Govea on 06-14-2025 Creatinine [Mass/Vol] 1.24 mg/dL High 0.70-1.20 [facility] Serum glucose measurement (m ass/volume)Ordered By: Nora Govea on 06-14-2025 Glucose [Mass/Vol] 98 mg/dL 70-99 [facility] Serum or plasma calcium tisha urement (mass/volume)Ordered By: Nora Govea on 06-14-2025 Calcium [Mass/Vol] 9.1 mg/dL 7.6-11.0 [facility] Serum or plasma urea nitroge n measurement (mass/volume)Ordered By: Nora Govea on 06-14-2025 Urea nitrogen [Mass/Vol] 21 mg/dL High 4-19 [facility] Sodium levelOrdered By: Dinh Govea on 06-14-2025 Sodium [Moles/Vol] 128 mmol/L Low 133-145 [facility] CNOVon 06-10-2025 [facility] ALVARADO COHEN ([id number]) 1945 F Date Time Provider Department 06/10/25 2:20 PM GLENNY LUQUE During your visit today, we recorded the following information about you: Pulse Respiration Blood pressure Weight 68/minute 16/minute 164/60 60.2 kg Glenny Luque MD 06/10/2025 6:01 PM Signed Transitional Care Management TCM Eligibility Documentation The following information was gathered during patient outreach 06/07/2025 Date of Outreach: Outreach Attempt 1: Contact Made Date of Discharge 06/06/2025 Provider Documentation Alvarado Cohen is a 79 year old female here today for a follow up from recent hospitalization. I have reviewed the patient's hospital course including discharge summary, discharge medications, and follow up needs with the patient and any family members present at today's visit. HPI 7 day TCM Still smoking half ppd or less. Alvarado reports a recent onset of approximately 10 lbs of fluid retention, which she believes began during a recent hospitalization. She notes significant swelling in her feet and ankles, making ambulation difficult and causing discomfort. She also reports dyspnea, particularly in the mornings, describing it as feeling like she is using only the top 1% of my lungs to try to breathe. She experiences near-syncope every 5 minutes when lying flat and sitting up. She denies any pain associated with the fluid retention. Alvarado was recently hospitalized for a week due to severe hyponatremia and gastrointestinal bleeding. She attributes the hospitalization to a new antihypertensive medication, which caused her to feel really bad, with symptoms of lightheadedness, asthenia, and difficulty moving. After consulting with her physician, she discontinued the medication, but her symptoms persisted. Her brother took her to the emergency room, where she was admitted to the ICU with a sodium level of 104 mEq/L. During her hospital stay, she received three blood transfusions and was diagnosed with bleeding ulcers via endoscopy. She is scheduled to follow up with her feltmaker and weigher later this month. Since her discharge, she has been experiencing significant fluid retention. Her roll or tape edge machine operator, Dr. Govea, advised her to discontinue sodium bicarbonate and start Lasix. However, there has been a delay in receiving the Lasix prescription, causing her to be uncertain about whether to resume sodium bicarbonate. She has been instructed to have weekly blood work to monitor her sodium levels and kidney function. Her most recent lab results showed a sodium level in the mid-120s and a creatinine level of approximately 1.3 mg/dL, both of which are improvements from her initial hospitalization levels. Alvarado also reports swelling and warmth in her arm following the removal of an IV during her hospital stay. She was given a two-day course of antibiotics for this but is unsure if the issue has resolved. She denies any worsening of redness or swelling in the arm and does not report any pain. Pt was admitted to [facility] on 05/29/25 and discharged home 06/06/25. She states she is feeling good other than energy level is low still. Appetite ok. Was discharged home on Hydralazine 50 mg taking 100 mg TID, Isosorbide 20 mg, taking 40 mg TID, Pantoprazole 40 mg BID, Sodium Bicarbonate 650 mg 1 pill BID, Sucralfate 1 gram, and Ferrous sulfate 325 mg BID. She was advised to discontinue the Lisinopril 30 mg daily, Chlorthalidone 25 mg and the Hydralazine 25 mg. She was weighted at [facility] office was up 10 lbs at least in the last 4-5 days. She has swelling in the ankles and feet. Does not improve over night. Below copied from [employer]: [facility] Narrative Medical decision making narrative: HISTORY OF [...] Exam without focal I considered the following differ (more content not included)... [facility] Anion gap in Serum or Plasma Ordered By: Nora Govea on 06-08-2025 Anion gap [Moles/Vol] 13 mmol/L - [facility] BUN/creatinine ratioOrdered By: Nora Govea on 06-08-2025 Urea nitrogen/Creatinine [Mass ratio] 23.7 mg/mg High - [facility] Basic Metabolic Profile (BMP )on 06-08-2025 BUN/CRE 23.7 RATIO High - [facility] Comment on above: Performed By: #### L 500.2500 ####[facility] [address] [place], [address] Calcium [Mass/Vol] 9.2 mg/dL Normal 7.6-11.0 [facility] Comment on above: Performed By: #### L 500.2500 ####[facility] [address] [place], [address] Chloride [Moles/Vol] 93 mmol/L Low 98-108 [facility] [place] Comment on above: Performed By: #### L 500.2500 ####[facility] [address] [place], [address] CO2 [Moles/Vol] 20.5 mmol/L Low 21.0-32.0 [facility] Comment on above: Performed By: #### L 500.2500 ####[facility] [address] [place], [address] Creatinine [Mass/Vol] 1.34 mg/dL High 0.70-1.20 [facility] Comment on above: Performed By: #### L 500.2500 ####[facility] [address] [place], [address] GAP 13 Normal - [facility] Comment on above: Performed By: #### L 500.2500 ####[facility] [address] [place], [address] GFR/1.73 sq M.predicted among non-blacks MDRD (S/P/Bld) [Vol rate/Area] 41 mL/min/{1.73_m2} Low >60 [facility] Comment on above: Result Comment: mL/m in/1.73m2 CKD-EPI Creatinine Equation (2020) Performed By: #### L 500.2500 ####[facility] [address] [place], [address] Glucose [Mass/Vol] 105 mg/dL High 70-99 [facility] Comment on above: Performed By: #### L 500.2500 ####[facility] [address] [place], [address] Potassium [Moles/Vol] 4.4 mmol/L Normal 3.3-5.1 [facility] Comment on above: Performed By: #### L 500.2500 ####[facility] [address] [place], [address] Sodium [Moles/Vol] 126 mmol/L Low 133-145 [facility] Comment on above: Performed By: #### L 500.2500 ####[facility] [address] [place], [address] Urea nitrogen [Mass/Vol] 32 mg/dL High 4-19 [facility] Comment on above: Performed By: #### L 500.2500 ####[facility] [address] [place], [address] Carbon dioxide, total [Moles /volume] in Central venous bloodOrdered By: Nora Govea on 06-08-2025 CO2 [Moles/Vol] 20.5 mmol/L Low 21.0-32.0 [facility] Chloride assayOrdered By: Ryder Govea on 06-08-2025 Chloride [Moles/Vol] 93 mmol/L Low 98-108 [facility] [place] Glomerular filtration rate ( GFR) estimation/1.73 sq m using serum, plasma, or whole bOrdered By: Nora Govea on 06-08-2025 GFR/1.73 sq M.predicted among non-blacks MDRD (S/P/Bld) [Vol rate/Area] 41 mL/min/{1.73_m2} Low >60 [facility] Comment on above: mL/min/1.73m2 CKD-EP I Creatinine Equation (2020) Potassium measurement (mass/ volume)Ordered By: Nora Govea on 06-08-2025 Potassium (Unsp spec) [Mass/Vol] 4.4 mmol/L 3.3-5.1 [facility] Serum creatinine measurement (mass/volume)Ordered By: Nora Govea on 06-08-2025 Creatinine [Mass/Vol] 1.34 mg/dL High 0.70-1.20 [facility] Serum glucose measurement (m ass/volume)Ordered By: Nora Govea on 06-08-2025 Glucose [Mass/Vol] 105 mg/dL High 70-99 [facility] Serum or plasma calcium tisha urement (mass/volume)Ordered By: Nora Govea on 06-08-2025 Calcium [Mass/Vol] 9.2 mg/dL 7.6-11.0 [facility] Serum or plasma urea nitroge n measurement (mass/volume)Ordered By: Nora Govea on 06-08-2025 Urea nitrogen [Mass/Vol] 32 mg/dL High 4-19 [facility] Sodium levelOrdered By: Dinh Govea on 06-08-2025 Sodium [Moles/Vol] 126 mmol/L Low 133-145 [facility] Anion gap in Serum or Plasma Ordered By: Tiffanie Govea on 06-06-2025 Anion gap [Moles/Vol] 12 mmol/L 5-15 [facility] BUN/creatinine ratioOrdered By: Tiffanie Govea on 06-06-2025 Urea nitrogen/Creatinine [Mass ratio] 22.2 mg/mg High 10- [facility] Basic Metabolic Profile (BMP )on 06-06-2025 BUN/CRE 22.2 RATIO High 08-23 [facility] Comment on above: Performed By: #### L 100.0500, L500.2500 ####[facility] [address] [place], [address] Calcium [Mass/Vol] 8.5 mg/dL Normal 7.6-11.0 [facility] Comment on above: Performed By: #### L 100.0500, L500.2500 ####[facility] [address] [place], [address] Chloride [Moles/Vol] 94 mmol/L Low 98-108 [facility] [place] Comment on above: Performed By: #### L 100.0500, L500.2500 ####[facility] [address] [place], [address] CO2 [Moles/Vol] 17.4 mmol/L Low 21.0-32.0 [facility] Comment on above: Performed By: #### L 100.0500, L500.2500 ####[facility] [address] [place], [address] Creatinine [Mass/Vol] 2.16 mg/dL High 0.70-1.20 [facility] Comment on above: Performed By: #### L 100.0500, L500.2500 ####[facility] [address] [place], [address] ECRCL 17.76 ml/min Low 50-250 [facility] Comment on above: Performed By: #### L 100.0500, L500.2500 ####[facility] [address] [place], [address] GAP 12 Normal 5-15 [facility] Comment on above: Performed By: #### L 100.0500, L500.2500 ####[facility] [address] [place], [address] GFR/1.73 sq M.predicted among non-blacks MDRD (S/P/Bld) [Vol rate/Area] 23 mL/min/{1.73_m2} Low >60 [facility] Comment on above: Result Comment: mL/m in/1.73m2 CKD-EPI Creatinine Equation (2020) Performed By: #### L 100.0500, L500.2500 ####[facility] [address] [place], [address] Glucose [Mass/Vol] 88 mg/dL Normal 70-99 [facility] Comment on above: Performed By: #### L 100.0500, L500.2500 ####[facility] [address] [place], [address] Potassium [Moles/Vol] 3.9 mmol/L Normal 3.3-5.1 [facility] Comment on above: Performed By: #### L 100.0500, L500.2500 ####[facility] [address] [place], [address] Sodium [Moles/Vol] 124 mmol/L Low 133-145 [facility] Comment on above: Performed By: #### L 100.0500, L500.2500 ####[facility] [address] [place], [address] Urea nitrogen [Mass/Vol] 48 mg/dL High 4-19 [facility] Comment on above: Performed By: #### L 100.0500, L500.2500 ####[facility] [address] [place], [address] CBC-Complete Blood Cnt No Di ffon 06-06-2025 Erythrocyte distribution width (RBC) [Ratio] 14.6 % Normal 11.6-14.6 [facility] Comment on above: Performed By: #### L 100.0500, L500.2500 ####[facility] [address] [place], [address] Hematocrit (Bld) [Volume fraction] 28.9 % Low 37-47 [facility] Comment on above: Performed By: #### L 100.0500, L500.2500 ####[facility] [address] [place], [address] Hemoglobin (Bld) [Mass/Vol] 10.2 g/dL Low 12.0-15.0 [facility] Comment on above: Performed By: #### L 100.0500, L500.2500 ####[facility] [address] [place], [address] MCH (RBC) [Entitic mass] 30.1 pg Normal 27.0-32.0 [facility] Comment on above: Performed By: #### L 100.0500, L500.2500 ####[facility] [address] [place], [address] MCHC (RBC) [Mass/Vol] 35.3 g/dL Normal 32-36 [facility] Comment on above: Performed By: #### L 100.0500, L500.2500 ####[facility] [address] [place], [address] MCV (RBC) [Entitic vol] 85.3 fL Normal 81-99 [facility] Comment on above: Performed By: #### L 100.0500, L500.2500 ####[facility] [address] [place], [address] Platelet mean volume (Bld) [Entitic vol] 10.1 fL Normal 6.2-12.0 [facility] Comment on above: Performed By: #### L 100.0500, L500.2500 ####[facility] [address] [place], [address] Platelets (Bld) [#/Vol] 188 10*3/uL Normal 150-450 [facility] Comment on above: Performed By: #### L 100.0500, L500.2500 ####[facility] [address] [place], [address] RBC (Bld) [#/Vol] 3.39 10*6/uL Low 4.2-5.4 [facility] Comment on above: Performed By: #### L 100.0500, L500.2500 ####[facility] [address] [place], [address] RDW SD 45.4 fl High 35.1-43.9 [facility] Comment on above: Performed By: #### L 100.0500, L500.2500 ####[facility] [address] [place], [address] WBC (Bld) [#/Vol] 7.3 10*3/uL Normal 4.4-11.0 [facility] Comment on above: Performed By: #### L 100.0500, L500.2500 ####[facility] [address] [place], [address] Carbon dioxide, total [Moles /volume] in Central venous bloodOrdered By: Tiffanie Govea on 06-06-2025 CO2 [Moles/Vol] 17.4 mmol/L Low 21.0-32.0 [facility] Chloride assayOrdered By: Elliott Govea on 06-06-2025 Chloride [Moles/Vol] 94 mmol/L Low 98-108 [facility] [place] Erythrocyte distribution wid th ratioOrdered By: Tiffanie Govea on 06-06-2025 Erythrocyte distribution width (RBC) [Ratio] 14.6 % 11.6-14.6 [facility] Erythrocyte distribution wid th standard deviationOrdered By: Tiffanie Govea on 06-06-2025 Erythrocyte distribution width (RBC) [Ratio] 45.4 fl High 35.1-43.9 [facility] Glomerular filtration rate ( GFR) estimation/1.73 sq m using serum, plasma, or whole bOrdered By: Tiffanie Govea on 06-06-2025 GFR/1.73 sq M.predicted among non-blacks MDRD (S/P/Bld) [Vol rate/Area] 23 mL/min/{1.73_m2} Low >60 [facility] Comment on above: mL/min/1.73m2 CKD-EP I Creatinine Equation (2020) Hematocrit Auto (Bld) [Volum e fraction]Ordered By: Tiffanie Govea on 06-06-2025 Hematocrit (Bld) [Volume fraction] 28.9 % Low 37-47 [facility] Hemoglobin measurementOrdere d By: Tiffanie Govea on 06-06-2025 Hemoglobin (Bld) [Mass/Vol] 10.2 g/dL Low 12.0-15.0 [facility] MCV (mean corpuscular volume ) determinationOrdered By: Tiffanie Govea on 06-06-2025 MCV (RBC) [Entitic vol] 85.3 fL 81-99 [facility] Mean corpuscular hemoglobin (MCH) determinationOrdered By: Tiffanie Govea on 06-06-2025 MCH (RBC) [Entitic mass] 30.1 pg 27.0-32.0 [facility] Mean corpuscular hemoglobin concentration (MCHC) determinationOrdered By: Tiffanie Govea on 06-06-2025 MCHC (RBC) [Mass/Vol] 35.3 g/dL 32-36 [facility] Mean platelet volume determi nationOrdered By: Tiffanie Govea on 06-06-2025 Platelet mean volume (Bld) [Entitic vol] 10.1 fL 6.2-12.0 [facility] Platelet countOrdered By: Elliott Govea on 06-06-2025 Platelets (Bld) [#/Vol] 188 10*3/uL 150-450 [facility] Potassium measurement (mass/ volume)Ordered By: Tiffanie Govea on 06-06-2025 Potassium (Unsp spec) [Mass/Vol] 3.9 mmol/L 3.3-5.1 [facility] RBC Auto (Bld) [#/Vol]Ordere d By: Tiffanie Govea on 06-06-2025 RBC (Bld) [#/Vol] 3.39 10*6/uL Low 4.2-5.4 [facility] Serum creatinine measurement (mass/volume)Ordered By: Tiffanie Govea on 06-06-2025 Creatinine [Mass/Vol] 2.16 mg/dL High 0.70-1.20 [facility] Serum glucose measurement (m ass/volume)Ordered By: Tiffanie Govea on 06-06-2025 Glucose [Mass/Vol] 88 mg/dL 70-99 [facility] Serum or plasma calcium tisha urement (mass/volume)Ordered By: Tiffanie Govea on 06-06-2025 Calcium [Mass/Vol] 8.5 mg/dL 7.6-11.0 [facility] Serum or plasma urea nitroge n measurement (mass/volume)Ordered By: Tiffanie Govea on 06-06-2025 Urea nitrogen [Mass/Vol] 48 mg/dL High 4-19 [facility] Sodium levelOrdered By: Ros Govea on 06-06-2025 Sodium [Moles/Vol] 124 mmol/L Low 133-145 [facility] White blood cell (WBC) count Ordered By: Tiffanie Govea on 06-06-2025 WBC (Bld) [#/Vol] 7.3 10*3/uL 4.4-11.0 [facility] Absolute lymphocyte countOrd ered By: Tiffanie Govea on 06-05-2025 Lymphocytes Auto (Unsp spec) [#/Vol] 0.90 10*3/uL 0.83-4.51 [facility] Absolute neutrophil countOrd ered By: Tiffanie Govea on 06-05-2025 Neutrophils (Bld) [#/Vol] 7.4 10*3/uL 2.0-7.7 [facility] Automated lymphocyte count a s percentage of total leukocytesOrdered By: Tiffanie Govea on 06-05-2025 Lymphocytes/100 WBC Auto (Unsp spec) 9.5 % Low 19-41 [facility] Basic Metabolic Profile (BMP )on 06-05-2025 BUN/CRE 23.4 RATIO High 10-20 [facility] Comment on above: Performed By: #### L 500.2500 ####[facility] [address] [place], [place], [address] Calcium [Mass/Vol] 8.6 mg/dL Normal 7.6-11.0 [facility] Comment on above: Performed By: #### L 500.2500 ####[facility] [address] [place], [address] Chloride [Moles/Vol] 93 mmol/L Low 98-108 [facility] Comment on above: Performed By: #### L 500.2500 ####[facility] [address] [place], [address] CO2 [Moles/Vol] 15.8 mmol/L Low 21.0-32.0 [facility] Comment on above: Performed By: #### L 500.2500 ####[facility] [address] [place], [address] Creatinine [Mass/Vol] 2.08 mg/dL High 0.70-1.20 [facility] Comment on above: Performed By: #### L 500.2500 ####[facility] [address] [place], [address] ECRCL 18.44 ml/min Low 50-250 [facility] Comment on above: Performed By: #### L 500.2500 ####[facility] [address] [place], [address] GAP 13 Normal 5-15 [facility] Comment on above: Performed By: #### L 500.2500 ####[facility] [address] [place], [address] GFR/1.73 sq M.predicted among non-blacks MDRD (S/P/Bld) [Vol rate/Area] 24 mL/min/{1.73_m2} Low >60 [facility] Comment on above: Result Comment: mL/m in/1.73m2 CKD-EPI Creatinine Equation (2020) Performed By: #### L 500.2500 ####[facility] [address] [place], [address] Glucose [Mass/Vol] 147 mg/dL High 70-99 [facility] Comment on above: Performed By: #### L 500.2500 ####[facility] [address] [place], [address] Potassium [Moles/Vol] 3.8 mmol/L Normal 3.3-5.1 [facility] Comment on above: Performed By: #### L 500.2500 ####[facility] [address] [place], [address] Sodium [Moles/Vol] 121 mmol/L Low 133-145 [facility] Comment on above: Performed By: #### L 500.2500 ####[facility] [address] [place], [address] Urea nitrogen [Mass/Vol] 49 mg/dL High 4-19 [facility] Comment on above: Performed By: #### L 500.2500 ####[facility] [address] [place], [address] Basophil percentageOrdered B y: Tiffanie oGvea on 06-05-2025 Basophils/100 WBC (Bld) 0.5 % 0-1 [facility] Bilirubin, totalOrdered By: Nora Govea on 06-05-2025 Bilirubin [Mass/Vol] 0.55 mg/dL 0.00-1.30 [facility] CBC W/Diff, Automatedon Absolute Lymph 0.90 X10 3/uL Normal 0.83-4.51 [facility] Comment on above: Performed By: #### L 100.0100 ####[facility] [address] [place], [address] Absolute Neut 7.4 X10 3/uL Normal 2.0-7.7 [facility] Comment on above: Performed By: #### L 100.0100 ####[facility] [address] [place], [address] Basophils/100 WBC (Bld) 0.5 % Normal 0-1 [facility] Comment on above: Performed By: #### L 100.0100 ####[facility] [address] [place], [address] Eosinophils/100 WBC (Bld) 2.6 % Normal 0-5 [facility] Comment on above: Performed By: #### L 100.0100 ####[facility] [address] [place], [address] Erythrocyte distribution width (RBC) [Ratio] 14.6 % Normal 11.6-14.6 [facility] Comment on above: Performed By: #### L 100.0100 ####[facility] [address] [place], [address] Hematocrit (Bld) [Volume fraction] 27.0 % Low 37-47 [facility] Comment on above: Performed By: #### L 100.0100 ####[facility] [address] [place], [address] Hemoglobin (Bld) [Mass/Vol] 9.5 g/dL Low 12.0-15.0 [facility] Comment on above: Performed By: #### L 100.0100 ####[facility] [address] [place], [address] IG% 0.600 Normal 0.0-0.9 [facility] Comment on above: Result Comment: IG% - Immature Granulocytes (promyelocytes, myelocytes andmetamyelocytes) > 1% indicates that a LEFT SHIFT is Present. Performed By: #### L 100.0100 ####[facility] [address] [place], [address] Lymphocytes/100 WBC (Bld) 9.5 % Low 19-41 [facility] Comment on above: Performed By: #### L 100.0100 ####[facility] [address] [place], [address] MCH (RBC) [Entitic mass] 29.9 pg Normal 27.0-32.0 [facility] Comment on above: Performed By: #### L 100.0100 ####[facility] [address] [place], [address] MCHC (RBC) [Mass/Vol] 35.2 g/dL Normal 32-36 [facility] Comment on above: Performed By: #### L 100.0100 ####[facility] [address] [place], [address] MCV (RBC) [Entitic vol] 84.9 fL Normal 81-99 [facility] Comment on above: Performed By: #### L 100.0100 ####[facility] [address] [place], [address] Monocytes/100 WBC (Bld) 9.4 % Normal 0-10 [facility] Comment on above: Performed By: #### L 100.0100 ####[facility] [address] [place], [address] Neutrophils/100 WBC (Bld) 77.4 % High 47-70 [facility] Comment on above: Performed By: #### L 100.0100 ####[facility] [address] [place], [address] Nucleated RBC (Bld) [#/Vol] 0 10*3/uL Normal 0-5 [facility] Comment on above: Performed By: #### L 100.0100 ####[facility] [address] [place], [address] Platelet mean volume (Bld) [Entitic vol] 10.0 fL Normal 6.2-12.0 [facility] Comment on above: Performed By: #### L 100.0100 ####[facility] [address] [place], [address] Platelets (Bld) [#/Vol] 183 10*3/uL Normal 150-450 [facility] Comment on above: Performed By: #### L 100.0100 ####[facility] [address] [place], [address] RBC (Bld) [#/Vol] 3.18 10*6/uL Low 4.2-5.4 [facility] Comment on above: Performed By: #### L 100.0100 ####[facility] [address] [place], [address] RDW SD 45.0 fl High 35.1-43.9 [facility] Comment on above: Performed By: #### L 100.0100 ####[facility] [address] [place], [address] WBC (Bld) [#/Vol] 9.5 10*3/uL Normal 4.4-11.0 [facility] Comment on above: Performed By: #### L 100.0100 ####[facility] [address] [place], [address] Comprehensive Metabolic Prof [facility] 06-05-2025 Albumin [Mass/Vol] 3.3 g/dL Low 3.4-4.8 [facility] Comment on above: Order Comment: OKAY TO COLLECT WITH AM LABS PER RN Performed By: #### L 500.4050 ####[facility] [address] [place], [address] Albumin/Globulin [Mass ratio] 1.7 {ratio} Normal 0.9-2.4 [facility] Comment on above: Order Comment: OKAY TO COLLECT WITH AM LABS PER RN Performed By: #### L 500.4050 ####[facility] [address] [place], [address] ALK PHOS 68 U/L Normal 35-104 [facility] Comment on above: Order Comment: OKAY TO COLLECT WITH AM LABS PER RN Performed By: #### L 500.4050 ####[facility] [address] [place], [address] ALT [Catalytic activity/Vol] 24 U/L Normal <=34 [facility] Comment on above: Order Comment: OKAY TO COLLECT WITH AM LABS PER RN Performed By: #### L 500.4050 ####[facility] [address] [place], [address] AST [Catalytic activity/Vol] 22 U/L Normal <=31 [facility] Comment on above: Order Comment: OKAY TO COLLECT WITH AM LABS PER RN Performed By: #### L 500.4050 ####[facility] [address] [place], [address] Bilirubin [Mass/Vol] 0.55 mg/dL Normal 0.00-1.30 [facility] Comment on above: Order Comment: OKAY TO COLLECT WITH AM LABS PER RN Performed By: #### L 500.4050 ####[facility] [address] [place], [address] BUN/CRE 21.4 RATIO High 10-20 [facility] Comment on above: Order Comment: OKAY TO COLLECT WITH AM LABS PER RN Performed By: #### L 500.4050 ####[facility] [address] [place], [address] Calcium [Mass/Vol] 8.4 mg/dL Normal 7.6-11.0 [facility] Comment on above: Order Comment: OKAY TO COLLECT WITH AM LABS PER RN Performed By: #### L 500.4050 ####[facility] [address] [place], [address] Chloride [Moles/Vol] 92 mmol/L Low 98-108 [facility] Comment on above: Order Comment: OKAY TO COLLECT WITH AM LABS PER RN Performed By: #### L 500.4050 ####[facility] [address] [place], [address] CO2 [Moles/Vol] 17.6 mmol/L Low 21.0-32.0 [facility] Comment on above: Order Comment: OKAY TO COLLECT WITH AM LABS PER RN Performed By: #### L 500.4050 ####[facility] [address] [place], [address] Creatinine [Mass/Vol] 2.36 mg/dL High 0.70-1.20 [facility] Comment on above: Order Comment: OKAY TO COLLECT WITH AM LABS PER RN Performed By: #### L 500.4050 ####[facility] [address] [place], [address] ECRCL 16.25 ml/min Low 50-250 [facility] Comment on above: Order Comment: OKAY TO COLLECT WITH AM LABS PER RN Performed By: #### L 500.4050 ####[facility] [address] [place], [address] GAP 11 Normal 5-15 [facility] Comment on above: Order Comment: OKAY TO COLLECT WITH AM LABS PER RN Performed By: #### L 500.4050 ####[facility] [address] [place], [address] GFR/1.73 sq M.predicted among non-blacks MDRD (S/P/Bld) [Vol rate/Area] 21 mL/min/{1.73_m2} Low >60 [facility] Comment on above: Order Comment: OKAY TO COLLECT WITH AM LABS PER RN Result Comment: mL/m in/1.73m2 CKD-EPI Creatinine Equation (2020) Performed By: #### L 500.4050 ####[facility] [address] [place], [address] Globulin (S) [Mass/Vol] 1.9 g/dL Low 2.2-4.2 [facility] Comment on above: Order Comment: OKAY TO COLLECT WITH AM LABS PER RN Performed By: #### L 500.4050 ####[facility] [address] [place], [address] Glucose [Mass/Vol] 94 mg/dL Normal 70-99 [facility] Comment on above: Order Comment: OKAY TO COLLECT WITH AM LABS PER RN Performed By: #### L 500.4050 ####[facility] [address] [place], [address] Potassium [Moles/Vol] 4.0 mmol/L Normal 3.3-5.1 [facility] Comment on above: Order Comment: OKAY TO COLLECT WITH AM LABS PER RN Performed By: #### L 500.4050 ####[facility] [address] [place], [address] Sodium [Moles/Vol] 120 mmol/L Low 133-145 [facility] Comment on above: Order Comment: OKAY TO COLLECT WITH AM LABS PER RN Performed By: #### L 500.4050 ####[facility] [address] [place], [address] T PROT 5.2 g/dL Low 5.9-8.4 [facility] Comment on above: Order Comment: OKAY TO COLLECT WITH AM LABS PER RN Performed By: #### L 500.4050 ####[facility] [address] [place], [address] Urea nitrogen [Mass/Vol] 51 mg/dL High 4-19 [facility] Comment on above: Order Comment: OKAY TO COLLECT WITH AM LABS PER RN Performed By: #### L 500.4050 ####[facility] [address] [place], [address] Eosinophil percentageOrdered By: Tiffanie Govea on 06-05-2025 Eosinophils/100 WBC (Bld) 2.6 % 0-5 [facility] Immature granulocytes/100 WB C Auto (Bld)Ordered By: Tiffanie Govea on 06-05-2025 Immature granulocytes/100 WBC (Bld) 0.600 % 0.0-0.9 [facility] Comment on above: IG% - Immature Granu locytes (promyelocytes, myelocytes and metamyelocytes) > 1% indicates that a LEFT SHIFT is Present. Laboratory - Chemistry and C hemistry - challengeOrdered By: Nora Govea on 06-05-2025 AST [Catalytic activity/Vol] 22 U/L <32 [facility] Monocyte percentageOrdered B y: Tiffanie Govea on 06-05-2025 Monocytes/100 WBC (Bld) 9.4 % 0-10 [facility] Neutrophil percentageOrdered By: Tiffanie Govea on 06-05-2025 Neutrophils/100 WBC (Bld) 77.4 % High 47-70 [facility] Nucleated red blood cell per centageOrdered By: Tiffanie Govea on 06-05-2025 Nucleated RBC/100 WBC (Bld) [Ratio] 0 % 0-5 [facility] Serum globulin measurementOr dered By: Nora Govea on 06-05-2025 Globulin (S) [Mass/Vol] 1.9 g/dL Low 2.2-4.2 [facility] Serum or plasma alanine de león otransferase (ALT) measurementOrdered By: Nora Govea on 06-05-2025 ALT [Catalytic activity/Vol] 24 U/L <35 [facility] Serum or plasma albumin tisha urement (mass/volume)Ordered By: Nora Govea on 06-05-2025 Albumin [Mass/Vol] 3.3 g/dL Low 3.4-4.8 [facility] Serum or plasma albumin/glob ulin mass ratioOrdered By: Nora Govea on 06-05-2025 Albumin/Globulin [Mass ratio] 1.7 {ratio} 0.9-2.4 [facility] Serum or plasma alkaline bud sphatase measurementOrdered By: Nora Govea on 06-05-2025 ALP [Catalytic activity/Vol] 68 U/L 35-104 [facility] Total proteinOrdered By: Cooper Govea on 06-05-2025 Protein [Mass/Vol] 5.2 g/dL Low 5.9-8.4 [facility] Basic Metabolic Profile (BMP )on 06-04-2025 BUN/CRE 13.5 RATIO Normal 10-20 [facility] Comment on above: Performed By: #### L 500.2500 ####[facility] [address] [place], [address] Calcium [Mass/Vol] 8.2 mg/dL Normal 7.6-11.0 [facility] Comment on above: Performed By: #### L 500.2500 ####[facility] [address] [place], [address] Chloride [Moles/Vol] 94 mmol/L Low 98-108 [facility] Comment on above: Performed By: #### L 500.2500 ####[facility] [address] [place], [address] CO2 [Moles/Vol] 18.5 mmol/L Low 21.0-32.0 [facility] Comment on above: Performed By: #### L 500.2500 ####[facility] [address] [place], [address] Creatinine [Mass/Vol] 3.18 mg/dL High 0.70-1.20 [facility] Comment on above: Performed By: #### L 500.2500 ####[facility] [address] [place], [address] ECRCL 12.06 ml/min Low 50-250 [facility] Comment on above: Performed By: #### L 500.2500 ####[facility] [address] [place], [address] GAP 12 Normal 5-15 [facility] Comment on above: Performed By: #### L 500.2500 ####[facility] [address] [place], [address] GFR/1.73 sq M.predicted among non-blacks MDRD (S/P/Bld) [Vol rate/Area] 14 mL/min/{1.73_m2} Low >60 [facility] Comment on above: Result Comment: mL/m in/1.73m2 CKD-EPI Creatinine Equation (2020) Performed By: #### L 500.2500 ####[facility] [address] [place], [address] Glucose [Mass/Vol] 97 mg/dL Normal 70-99 [facility] Comment on above: Performed By: #### L 500.2500 ####[facility] [address] [place], [address] Potassium [Moles/Vol] 4.0 mmol/L Normal 3.3-5.1 [facility] Comment on above: Performed By: #### L 500.2500 ####[facility] [address] [place], [address] Sodium [Moles/Vol] 124 mmol/L Low 133-145 [facility] Comment on above: Performed By: #### L 500.2500 ####[facility] [address] [place], [address] Urea nitrogen [Mass/Vol] 43 mg/dL High 4-19 [facility] Comment on above: Performed By: #### L 500.2500 ####[facility] [address] [place], [address] CBC-Complete Blood Cnt No Di ffon 06-04-2025 Erythrocyte distribution width (RBC) [Ratio] 14.5 % Normal 11.6-14.6 [facility] Comment on above: Performed By: #### L 100.0500 ####[facility] [address] [place], [address] Hematocrit (Bld) [Volume fraction] 26.4 % Low 37-47 [facility] Comment on above: Performed By: #### L 100.0500 ####[facility] [address] [place], [address] Hemoglobin (Bld) [Mass/Vol] 9.5 g/dL Low 12.0-15.0 [facility] Comment on above: Performed By: #### L 100.0500 ####[facility] [address] [place], [address] MCH (RBC) [Entitic mass] 30.5 pg Normal 27.0-32.0 [facility] Comment on above: Performed By: #### L 100.0500 ####[facility] [address] [place], [address] MCHC (RBC) [Mass/Vol] 36.0 g/dL Normal 32-36 [facility] Comment on above: Performed By: #### L 100.0500 ####[facility] [address] [place], [address] MCV (RBC) [Entitic vol] 84.9 fL Normal 81-99 [facility] Comment on above: Performed By: #### L 100.0500 ####[facility] [address] [place], [address] Platelet mean volume (Bld) [Entitic vol] 9.6 fL Normal 6.2-12.0 [facility] Comment on above: Performed By: #### L 100.0500 ####[facility] [address] [place], [address] Platelets (Bld) [#/Vol] 152 10*3/uL Normal 150-450 [facility] Comment on above: Performed By: #### L 100.0500 ####[facility] [address] [place], [address] RBC (Bld) [#/Vol] 3.11 10*6/uL Low 4.2-5.4 [facility] Comment on above: Performed By: #### L 100.0500 ####[facility] [address] [place], [address] RDW SD 44.6 fl High 35.1-43.9 [facility] Comment on above: Performed By: #### L 100.0500 ####[facility] [address] [place], [address] WBC (Bld) [#/Vol] 11.0 10*3/uL Normal 4.4-11.0 [facility] Comment on above: Performed By: #### L 100.0500 ####[facility] [address] [place], [address] Basic Metabolic Profile (BMP )on 06-03-2025 BUN/CRE 10.4 RATIO Normal 10-20 [facility] Comment on above: Performed By: #### L 100.0500, L500.2500 ####[facility] [address] [place], [address] Calcium [Mass/Vol] 8.4 mg/dL Normal 7.6-11.0 [facility] Comment on above: Performed By: #### L 100.0500, L500.2500 ####[facility] [address] [place], [address] Chloride [Moles/Vol] 94 mmol/L Low 98-108 [facility] Comment on above: Performed By: #### L 100.0500, L500.2500 ####[facility] [address] [place], [address] CO2 [Moles/Vol] 20.3 mmol/L Low 21.0-32.0 [facility] Comment on above: Performed By: #### L 100.0500, L500.2500 ####[facility] [address] [place], [address] Creatinine [Mass/Vol] 3.06 mg/dL High 0.70-1.20 [facility] Comment on above: Performed By: #### L 100.0500, L500.2500 ####[facility] [address] [place], [address] ECRCL 12.53 ml/min Low 50-250 [facility] Comment on above: Performed By: #### L 100.0500, L500.2500 ####[facility] [address] [place], [address] GAP 11 Normal 5-15 [facility] Comment on above: Performed By: #### L 100.0500, L500.2500 ####[facility] [address] [place], [address] GFR/1.73 sq M.predicted among non-blacks MDRD (S/P/Bld) [Vol rate/Area] 15 mL/min/{1.73_m2} Low >60 [facility] Comment on above: Result Comment: mL/m in/1.73m2 CKD-EPI Creatinine Equation (2020) Performed By: #### L 100.0500, L500.2500 ####[facility] [address] [place], [address] Glucose [Mass/Vol] 102 mg/dL High 70-99 [facility] Comment on above: Performed By: #### L 100.0500, L500.2500 ####[facility] [address] [place], [address] Potassium [Moles/Vol] 4.0 mmol/L Normal 3.3-5.1 [facility] Comment on above: Performed By: #### L 100.0500, L500.2500 ####[facility] [address] [place], [address] Sodium [Moles/Vol] 125 mmol/L Low 133-145 [facility] Comment on above: Performed By: #### L 100.0500, L500.2500 ####[facility] [address] [place], [address] Urea nitrogen [Mass/Vol] 32 mg/dL High 4-19 [facility] Comment on above: Performed By: #### L 100.0500, L500.2500 ####[facility] [address] [place], [address] CBC-Complete Blood Cnt No Di ffon 06-03-2025 Erythrocyte distribution width (RBC) [Ratio] 14.8 % High 11.6-14.6 [facility] Comment on above: Performed By: #### L 100.0500, L500.2500 ####[facility] [address] [place], [address] Hematocrit (Bld) [Volume fraction] 21.0 % Low 37-47 [facility] Comment on above: Performed By: #### L 100.0500, L500.2500 ####[facility] [address] [place], [address] Hemoglobin (Bld) [Mass/Vol] 7.3 g/dL Low 12.0-15.0 [facility] Comment on above: Performed By: #### L 100.0500, L500.2500 ####[facility] [address] [place], [address] MCH (RBC) [Entitic mass] 29.3 pg Normal 27.0-32.0 [facility] Comment on above: Performed By: #### L 100.0500, L500.2500 ####[facility] [address] [place], [address] MCHC (RBC) [Mass/Vol] 34.8 g/dL Normal 32-36 [facility] Comment on above: Performed By: #### L 100.0500, L500.2500 ####[facility] [address] [place], [address] MCV (RBC) [Entitic vol] 84.3 fL Normal 81-99 [facility] Comment on above: Performed By: #### L 100.0500, L500.2500 ####[facility] [address] [place], [address] Platelet mean volume (Bld) [Entitic vol] 9.7 fL Normal 6.2-12.0 [facility] Comment on above: Performed By: #### L 100.0500, L500.2500 ####[facility] [address] [place], [address] Platelets (Bld) [#/Vol] 165 10*3/uL Normal 150-450 [facility] Comment on above: Performed By: #### L 100.0500, L500.2500 ####[facility] [address] [place], [address] RBC (Bld) [#/Vol] 2.49 10*6/uL Low 4.2-5.4 [facility] Comment on above: Performed By: #### L 100.0500, L500.2500 ####[facility] [address] [place], [address] RDW SD 45.6 fl High 35.1-43.9 [facility] Comment on above: Performed By: #### L 100.0500, L500.2500 ####[facility] [address] [facility] [place], [address] WBC (Bld) [#/Vol] 8.4 10*3/uL Normal 4.4-11.0 [facility] Comment on above: Performed By: #### L 100.0500, L500.2500 ####[facility] [address] [place], [address] Basic Metabolic Profile (BMP )on 06-02-2025 BUN/CRE 18.2 RATIO Normal 10-20 [facility] Comment on above: Performed By: #### L 500.2500 ####[facility] [address] [place], [address] Calcium [Mass/Vol] 8.5 mg/dL Normal 7.6-11.0 [facility] Comment on above: Performed By: #### L 500.2500 ####[facility] [address] [place], [address] Chloride [Moles/Vol] 91 mmol/L Low 98-108 [facility] Comment on above: Performed By: #### L 500.2500 ####[facility] [address] [place], [address] CO2 [Moles/Vol] 23.0 mmol/L Normal 21.0-32.0 [facility] Comment on above: Performed By: #### L 500.2500 ####[facility] [address] [place], [address] Creatinine [Mass/Vol] 1.21 mg/dL High 0.70-1.20 [facility] Comment on above: Performed By: #### L 500.2500 ####[facility] [address] [place], [address] ECRCL 31.70 ml/min Low 50-250 [facility] Comment on above: Performed By: #### L 500.2500 ####[facility] [address] [place], [address] GAP 9 Normal 5-15 [facility] Comment on above: Performed By: #### L 500.2500 ####[facility] [address] [place], [address] GFR/1.73 sq M.predicted among non-blacks MDRD (S/P/Bld) [Vol rate/Area] 46 mL/min/{1.73_m2} Low >60 [facility] Comment on above: Result Comment: mL/m in/1.73m2 CKD-EPI Creatinine Equation (2020) Performed By: #### L 500.2500 ####[facility] [address] [place], [address] Glucose [Mass/Vol] 90 mg/dL Normal 70-99 [facility] Comment on above: Performed By: #### L 500.2500 ####[facility] [address] [place], [address] Potassium [Moles/Vol] 3.9 mmol/L Normal 3.3-5.1 [facility] Comment on above: Performed By: #### L 500.2500 ####[facility] [address] [place], [address] Sodium [Moles/Vol] 123 mmol/L Low 133-145 [facility] Comment on above: Performed By: #### L 500.2500 ####[facility] [address] [place], [address] Urea nitrogen [Mass/Vol] 22 mg/dL High 4-19 [facility] Comment on above: Performed By: #### L 500.2500 ####[facility] [address] [place], [address] BUN Normal 4-19 [facility] Comment on above: Result Comment: Velia elled via OM: Order edited - Discontinuing original order Performed By: #### L 500.2500 ####[facility] [address] [place], [address] BUN/CRE Normal 10-20 [facility] Comment on above: Result Comment: Velia elled via OM: Order edited - Discontinuing original order Performed By: #### L 500.2500 ####[facility] [address] [place], [address] Calcium Normal 7.6-11.0 [facility] Comment on above: Result Comment: Velia elled via OM: Order edited - Discontinuing original order Performed By: #### L 500.2500 ####[facility] [address] [place], [address] CL Normal 98-108 [facility] Comment on above: Result Comment: Canc elled via OM: Order edited - Discontinuing original order Performed By: #### L 500.2500 ####[facility] [address] [place], [address] CO2 Normal 21.0-32.0 [facility] Comment on above: Result Comment: Canc elled via OM: Order edited - Discontinuing original order Performed By: #### L 500.2500 ####[facility] [address] [place], [address] CREAT,SERUM Normal 0.70-1.20 [facility] Comment on above: Result Comment: Canc elled via OM: Order edited - Discontinuing original order Performed By: #### L 500.2500 ####[facility] [address] [place], [address] eGFR Normal >60 [facility] Comment on above: Result Comment: Canc elled via OM: Order edited - Discontinuing original order Performed By: #### L 500.2500 ####[facility] [address] [place], [address] GAP Normal 5-15 [facility] Comment on above: Result Comment: Canc elled via OM: Order edited - Discontinuing original order Performed By: #### L 500.2500 ####[facility] [address] [place], [address] GLU Normal 70-99 [facility] Comment on above: Result Comment: Canc elled via OM: Order edited - Discontinuing original order Performed By: #### L 500.2500 ####[facility] [address] [place], [address] Potassium Normal 3.3-5.1 [facility] Comment on above: Result Comment: Canc elled via OM: Order edited - Discontinuing original order Performed By: #### L 500.2500 ####[facility] [address] [place], [address] Basic Metabolic Profile (BMP) Normal 133-145 [facility] Comment on above: Result Comment: Canalexander elled via OM: Order edited - Discontinuing original order Performed By: #### L 500.2500 ####[facility] [address] [place], [address] Bedside Glucoseon 06-02-2025 FINGERSTICK GLU 138 mg/dL High 74-106 [facility] Comment on above: Result Comment: GURWINDER PEÑALOZA OF PATIENT CARE PER NURSING PROTOCOL Performed By: #### L 501.080 ####[facility] [address] [place], [address] CBC-Complete Blood Cnt No Di ffon 06-02-2025 Erythrocyte distribution width (RBC) [Ratio] 14.2 % Normal 11.6-14.6 [facility] Comment on above: Performed By: #### L 100.0500 ####[facility] [address] [place], [address] Hematocrit (Bld) [Volume fraction] 22.1 % Low 37-47 [facility] Comment on above: Performed By: #### L 100.0500 ####[facility] [address] [place], [address] Hemoglobin (Bld) [Mass/Vol] 7.9 g/dL Low 12.0-15.0 [facility] Comment on above: Performed By: #### L 100.0500 ####[facility] [address] [place], [address] MCH (RBC) [Entitic mass] 29.3 pg Normal 27.0-32.0 [facility] Comment on above: Performed By: #### L 100.0500 ####[facility] [address] [place], [address] MCHC (RBC) [Mass/Vol] 35.7 g/dL Normal 32-36 [facility] Comment on above: Performed By: #### L 100.0500 ####[facility] [address] [place], [address] MCV (RBC) [Entitic vol] 81.9 fL Normal 81-99 [facility] Comment on above: Performed By: #### L 100.0500 ####[facility] [address] [place], [address] Platelet mean volume (Bld) [Entitic vol] 9.5 fL Normal 6.2-12.0 [facility] Comment on above: Performed By: #### L 100.0500 ####[facility] [address] [place], [address] Platelets (Bld) [#/Vol] 173 10*3/uL Normal 150-450 [facility] Comment on above: Performed By: #### L 100.0500 ####[facility] [address] [place], [address] RBC (Bld) [#/Vol] 2.70 10*6/uL Low 4.2-5.4 [facility] Comment on above: Performed By: #### L 100.0500 ####[facility] [address] [place], [address] RDW SD 41.7 fl Normal 35.1-43.9 [facility] Comment on above: Performed By: #### L 100.0500 ####[facility] [address] [place], [address] WBC (Bld) [#/Vol] 8.8 10*3/uL Normal 4.4-11.0 [facility] Comment on above: Performed By: #### L 100.0500 ####[facility] [address] [place], [address] Duplex ultrasound of renal a rtery reportOrdered By: Porfirio Mei on 06-02-2025 Study report [facility] [place] [address] Renal Artery Duplex Ultrasound 06/01/25 0809 MR#: [id number] Acct: [id number] Name: ALVARADO COHEN Rep #:[id number] : 1945 79 From: Porfirio Muñoz Attending [...] ~ Date Dictated: 06/01/25808 Date Transcribed: 06/02/25808 Table Assembler: Signed [facility] Work Phone: Glucose measurement at bedsi deOrdered By: Tiffanie Govea on 06-02-2025 Glucose [Mass/Vol] 138 mg/dL High 74-106 [facility] Comment on above: MANAGEMENT OF PATIEN T CARE PER NURSING PROTOCOL Magnetic resonance imaging r eportOrdered By: Issac Purdy on 06-02-2025 Study report [facility] Imaging Services [address] [place], [place] [address] Spine Lumbar (Routine) MR#: [id number] Acct: [id number] Name: ALVARADO COHEN CALLI Rep #: [id number] : 1945 F 79 From: Dave Purdy MD PCP: Dr. Glenny Luque MD Status: AD M IN Study:Spine Lumbar (Routine) Date of Exam: 06/02/25 Exam# [id number] Ordering Dr: Ros Govea DO PROCEDURE: MR SPINE LUMBAR (ROUTINE) 06/02/2025 REASON FOR EXAM: Bilateral lower extremity numbness/weakness TECHNIQUE: Multiplanar and multisequential MRI of the lumbar spine was performed without contrast. COMPARISON: None. FINDINGS: 5 crk-zka-qyyynkk lumbar-type vertebrae. No evidence of acute fracture or subluxation. Vertebral body heights are preserved. Chronic degenerative/acquired grade 1 anterolisthesis of L4 on L5 [...] also mild-moderate bilaterally at L5-S1. Reading Location: [id number] CC: Dr. Tiffanie oGvea DO; Dr. Glenny Luque MD ~ Table Assembler: Signed [facility] Spine Lumbar (Routine)on Spine Lumbar (Routine) Normal [facility] Basic Metabolic Profile (BMP )on 06-01-2025 BUN/CRE 15.5 RATIO Normal 10-20 [facility] Comment on above: Performed By: #### L 500.2500 ####[facility] [address] [place], [address] Calcium [Mass/Vol] 8.8 mg/dL Normal 7.6-11.0 [facility] Comment on above: Performed By: #### L 500.2500 ####[facility] [address] [place], [address] Chloride [Moles/Vol] 85 mmol/L Low 98-108 [facility] Comment on above: Performed By: #### L 500.2500 ####[facility] [address] [place], [address] CO2 [Moles/Vol] 19.7 mmol/L Low 21.0-32.0 [facility] Comment on above: Performed By: #### L 500.2500 ####[facility] [address] [place], [address] Creatinine [Mass/Vol] 1.10 mg/dL Normal 0.70-1.20 [facility] Comment on above: Performed By: #### L 500.2500 ####[facility] [address] [place], [address] ECRCL 34.87 ml/min Low 50-250 [facility] Comment on above: Performed By: #### L 500.2500 ####[facility] [address] [place], [address] GAP 12 Normal 5-15 [facility] Comment on above: Performed By: #### L 500.2500 ####[facility] [address] [place], [address] GFR/1.73 sq M.predicted among non-blacks MDRD (S/P/Bld) [Vol rate/Area] 51 mL/min/{1.73_m2} Low >60 [facility] Comment on above: Result Comment: mL/m in/1.73m2 CKD-EPI Creatinine Equation (2020) Performed By: #### L 500.2500 ####[facility] [address] [place], [address] Glucose [Mass/Vol] 154 mg/dL High 70-99 [facility] Comment on above: Performed By: #### L 500.2500 ####[facility] [address] [place], [address] Potassium [Moles/Vol] 3.7 mmol/L Normal 3.3-5.1 [facility] Comment on above: Performed By: #### L 500.2500 ####[facility] [address] [place], [address] Sodium [Moles/Vol] 117 mmol/L Invalid Interpretation Code 133-145 [facility] Comment on above: Result Comment: Crit ical Result(s) Called TIMOTEOINÉS at: 1855 by:ART??Results read back by same. Performed By: #### L 500.2500 ####[facility] [address] [place], [address] Urea nitrogen [Mass/Vol] 17 mg/dL Normal 4-19 [facility] Comment on above: Performed By: #### L 500.2500 ####[facility] [address] [place], [address] BUN Normal 4-19 [facility] Comment on above: Result Comment: Canc elled via OM: MD Ordered Performed By: #### L 500.2500 ####[facility] [address] [place], [address] BUN/CRE Normal 10-20 [facility] Comment on above: Result Comment: Canc elled via OM: MD Ordered Performed By: #### L 500.2500 ####[facility] [address] [place], [address] Calcium Normal 7.6-11.0 [facility] Comment on above: Result Comment: Canc elled via OM: MD Ordered Performed By: #### L 500.2500 ####[facility] [address] [place], [address] CL Normal 98-108 [facility] Comment on above: Result Comment: Canc elled via OM: MD Ordered Performed By: #### L 500.2500 ####[facility] [address] [place], [address] CO2 Normal 21.0-32.0 [facility] Comment on above: Result Comment: Canc elled via OM: MD Ordered Performed By: #### L 500.2500 ####[facility] [address] [place], [address] CREAT,SERUM Normal 0.70-1.20 [facility] Comment on above: Result Comment: Canc elled via OM: MD Ordered Performed By: #### L 500.2500 ####[facility] [address] [place], [address] eGFR Normal >60 [facility] Comment on above: Result Comment: Canc elled via OM: MD Ordered Performed By: #### L 500.2500 ####[facility] [address] [place], [address] GAP Normal 5-15 [facility] Comment on above: Result Comment: Canc elled via OM: MD Ordered Performed By: #### L 500.2500 ####[facility] [address] [place], [address] GLU Normal 70-99 [facility] Comment on above: Result Comment: Canc elled via OM: MD Ordered Performed By: #### L 500.2500 ####[facility] [address] [place], [address] Potassium Normal 3.3-5.1 [facility] Comment on above: Result Comment: Canc elled via OM: MD Ordered Performed By: #### L 500.2500 ####[facility] [address] [place], [address] Basic Metabolic Profile (BMP) Normal 133-145 [facility] Comment on above: Result Comment: Canc elled via OM: MD Ordered Performed By: #### L 500.2500 ####[facility] [address] [place], [address] CBC W/Diff, Automatedon 07-2 Absolute Lymph 1.23 X10 3/uL Normal 0.83-4.51 [facility] Comment on above: Performed By: #### L 501.2300, L100.0100 ####[facility] [address] [place], [address] Absolute Neut 6.2 X10 3/uL Normal 2.0-7.7 [facility] Comment on above: Performed By: #### L 501.2300, L100.0100 ####[facility] [address] [place], [address] Basophils/100 WBC (Bld) 0.4 % Normal 0-1 [facility] Comment on above: Performed By: #### L 501.2300, L100.0100 ####[facility] [address] [place], [address] Eosinophils/100 WBC (Bld) 0.9 % Normal 0-5 [facility] Comment on above: Performed By: #### L 501.2300, L100.0100 ####[facility] [address] [place], [address] Erythrocyte distribution width (RBC) [Ratio] 13.3 % Normal 11.6-14.6 [facility] Comment on above: Performed By: #### L 501.2300, L100.0100 ####[facility] [address] [place], [address] Hematocrit (Bld) [Volume fraction] 21.6 % Low 37-47 [facility] Comment on above: Performed By: #### L 501.2300, L100.0100 ####[facility] [address] [place], [address] Hemoglobin (Bld) [Mass/Vol] 8.0 g/dL Low 12.0-15.0 [facility] Comment on above: Performed By: #### L 501.2300, L100.0100 ####[facility] [address] [place], [address] IG% 0.900 Normal 0.0-0.9 [facility] Comment on above: Result Comment: IG% - Immature Granulocytes (promyelocytes, myelocytes andmetamyelocytes) > 1% indicates that a LEFT SHIFT is Present. Performed By: #### L 501.2300, L100.0100 ####[facility] [address] [place], [address] Lymphocytes/100 WBC (Bld) 14.4 % Low 19-41 [facility] Comment on above: Performed By: #### L 501.2300, L100.0100 ####[facility] [address] [place], [address] MCH (RBC) [Entitic mass] 29.6 pg Normal 27.0-32.0 [facility] Comment on above: Performed By: #### L 501.2300, L100.0100 ####[facility] [address] [place], [address] MCHC (RBC) [Mass/Vol] 37.0 g/dL High 32-36 [facility] Comment on above: Performed By: #### L 501.2300, L100.0100 ####[facility] [address] [place], [address] MCV (RBC) [Entitic vol] 80.0 fL Low 81-99 [facility] Comment on above: Performed By: #### L 501.2300, L100.0100 ####[facility] [address] [place], [address] Monocytes/100 WBC (Bld) 11.4 % High 0-10 [facility] Comment on above: Performed By: #### L 501.2300, L100.0100 ####[facility] [address] [place], [address] Neutrophils/100 WBC (Bld) 72.0 % High 47-70 [facility] Comment on above: Performed By: #### L 501.2300, L100.0100 ####[facility] [address] [place], [address] Nucleated RBC (Bld) [#/Vol] 0 10*3/uL Normal 0-5 [facility] Comment on above: Performed By: #### L 501.2300, L100.0100 ####[facility] [address] [place], [address] Platelet mean volume (Bld) [Entitic vol] 10.0 fL Normal 6.2-12.0 [facility] Comment on above: Performed By: #### L 501.2300, L100.0100 ####[facility] [address] [place], [address] Platelets (Bld) [#/Vol] 178 10*3/uL Normal 150-450 [facility] Comment on above: Performed By: #### L 501.2300, L100.0100 ####[facility] [address] [place], [address] RBC (Bld) [#/Vol] 2.70 10*6/uL Low 4.2-5.4 [facility] Comment on above: Performed By: #### L 501.2300, L100.0100 ####[facility] [address] [place], [address] RDW SD 38.1 fl Normal 35.1-43.9 [facility] Comment on above: Performed By: #### L 501.2300, L100.0100 ####[facility] [address] [place], [address] WBC (Bld) [#/Vol] 8.6 10*3/uL Normal 4.4-11.0 [facility] Comment on above: Performed By: #### L 501.2300, L100.0100 ####[facility] [address] [place], [address] Comprehensive Metabolic Prof ilon 06-01-2025 Albumin [Mass/Vol] 3.4 g/dL Normal 3.4-4.8 [facility] Comment on above: Performed By: #### L 501.5200, L500.4050 ####[facility] [address] [place], [address] Albumin/Globulin [Mass ratio] 2.1 {ratio} Normal 0.9-2.4 [facility] Comment on above: Performed By: #### L 501.5200, L500.4050 ####[facility] [address] [place], [address] ALK PHOS 59 U/L Normal 35-104 [facility] Comment on above: Performed By: #### L 501.5200, L500.4050 ####[facility] [address] [place], [address] ALT [Catalytic activity/Vol] 16 U/L Normal <=34 [facility] Comment on above: Performed By: #### L 501.5200, L500.4050 ####[facility] [address] [place], [address] AST [Catalytic activity/Vol] 27 U/L Normal <=31 [facility] Comment on above: Performed By: #### L 501.5200, L500.4050 ####[facility] [address] [place], [address] Bilirubin [Mass/Vol] 0.95 mg/dL Normal 0.00-1.30 [facility] Comment on above: Performed By: #### L 501.5200, L500.4050 ####[facility] [address] [place], [address] BUN/CRE 21.7 RATIO High 10-20 [facility] Comment on above: Performed By: #### L 501.5200, L500.4050 ####[facility] [address] [place], [address] Calcium [Mass/Vol] 8.3 mg/dL Normal 7.6-11.0 [facility] Comment on above: Performed By: #### L 501.5200, L500.4050 ####[facility] [address] [place], [address] Chloride [Moles/Vol] 77 mmol/L Low 98-108 [facility] Comment on above: Performed By: #### L 501.5200, L500.4050 ####[facility] [address] [place], [address] CO2 [Moles/Vol] 20.6 mmol/L Low 21.0-32.0 [facility] Comment on above: Performed By: #### L 501.5200, L500.4050 ####[facility] [address] [place], [address] Creatinine [Mass/Vol] 0.96 mg/dL Normal 0.70-1.20 [facility] Comment on above: Performed By: #### L 501.5200, L500.4050 ####[facility] [address] [place], [address] ECRCL 39.95 ml/min Low 50-250 [facility] Comment on above: Performed By: #### L 501.5200, L500.4050 ####[facility] [address] [place], [address] GAP 11 Normal 5-15 [facility] Comment on above: Performed By: #### L 501.5200, L500.4050 ####[facility] [address] [place], [address] GFR/1.73 sq M.predicted among non-blacks MDRD (S/P/Bld) [Vol rate/Area] 61 mL/min/{1.73_m2} Normal >60 [facility] Comment on above: Result Comment: mL/m in/1.73m2 CKD-EPI Creatinine Equation (2020) Performed By: #### L 501.5200, L500.4050 ####[facility] [address] [place], [address] Globulin (S) [Mass/Vol] 1.6 g/dL Low 2.2-4.2 [facility] Comment on above: Performed By: #### L 501.5200, L500.4050 ####[facility] [address] [place], [address] Glucose [Mass/Vol] 88 mg/dL Normal 70-99 [facility] Comment on above: Performed By: #### L 501.5200, L500.4050 ####[facility] [address] [place], [address] Potassium [Moles/Vol] 3.8 mmol/L Normal 3.3-5.1 [facility] Comment on above: Performed By: #### L 501.5200, L500.4050 ####[facility] [address] [place], [address] Sodium [Moles/Vol] 109 mmol/L Invalid Interpretation Code 133-145 [facility] Comment on above: Result Comment: Crit ical Result(s) Called at: 0535 by:??SHILOH JURADO Results read back by same. Performed By: #### L 501.5200, L500.4050 ####[facility] [address] [place], [address] T PROT 5.1 g/dL Low 5.9-8.4 [facility] Comment on above: Performed By: #### L 501.5200, L500.4050 ####[facility] [address] [place], [address] Urea nitrogen [Mass/Vol] 21 mg/dL High 4-19 [facility] Comment on above: Performed By: #### L 501.5200, L500.4050 ####[facility] [address] [place], [address] Consultation - Surgicalon Consultation - Surgical Normal [facility] EGD Reporton 06-01-2025 EGD Report Normal [facility] Hemoglobinon 06-01-2025 Hemoglobin (Bld) [Mass/Vol] 7.9 g/dL Low 12.0-15.0 [facility] Comment on above: Performed By: #### L 100.1300 ####[facility] [address] [place], [address] Hemoglobin (Bld) [Mass/Vol] 6.6 g/dL Low 12.0-15.0 [facility] Comment on above: Performed By: #### L 100.1300 ####[facility] [address] [place], [address] MR/CON.PCM.GIon 06-01-2025 MR/CON.PCM.GI Normal [facility] MR/OP.PROVATon 06-01-2025 MR/OP.PROVAT Normal [facility] MR/POSTOP.ANEon 06-01-2025 MR/POSTOP.ANE Normal [facility] MR/[id number] 06-01-2025 MR/POSTOPAN2 Normal [facility] Magnesiumon 06-01-2025 Magnesium [Mass/Vol] 1.7 mg/dL Normal 1.5-2.2 [facility] [place] Comment on above: Performed By: #### L 501.5200, L500.4050 ####[facility] [address] [place], [address] Magnesium measurement (mass/ volume)Ordered By: Nora Govea on 06-01-2025 Magnesium (Unsp spec) [Mass/Vol] 1.7 mg/dL 1.5-2.2 [facility] Phosphoruson 06-01-2025 Phosphate [Mass/Vol] 2.8 mg/dL Normal 2.7-4.5 [facility] [place] Comment on above: Performed By: #### L 501.2300, L100.0100 ####[facility] [address] [place], [address] Surgery Specimen Level Alin 06-01-2025 Surgery Specimen Level IV Normal [facility] Comment on above: Performed By: #### P SUIV ####[facility] [address] [place], [address] Urine Sodiumon 06-01-2025 Sodium (U) [Moles/Vol] 23 mmol/L Normal Not Establ. [facility] Comment on above: Performed By: #### L 501.5500 ####[facility] [address] [place], [address] Urine sodium measurement (mo les/volume)Ordered By: Nora Govea on 06-01-2025 Sodium (U) [Moles/Vol] 23 mmol/L Not Establ. [facility] BRCon 05-31-2025 RC Normal [facility] Comment on above: Result Comment: [id number] AN RC TRANSFUSED 06/03/25 [id number] AN RC TRANSFUSED 06/03/25 1017 Performed By: #### B RC ####[facility] [address] [place], [address] Result Comment: [id number] AP RC TRANSFUSED 06/01/25 0058 Basic Metabolic Profile (BMP )on 05-31-2025 BUN/CRE 21.1 RATIO High 10-20 [facility] Comment on above: Performed By: #### L 100.0100, L500.2500, L501.5200 ####[facility] [address] [place], [address] Calcium [Mass/Vol] 8.1 mg/dL Normal 7.6-11.0 [facility] Comment on above: Performed By: #### L 100.0100, L500.2500, L501.5200 ####[facility] [address] [place], [address] Chloride [Moles/Vol] 77 mmol/L Low 98-108 [facility] [place] Comment on above: Performed By: #### L 100.0100, L500.2500, L501.5200 ####[facility] [address] [place], [address] CO2 [Moles/Vol] 21.5 mmol/L Normal 21.0-32.0 [facility] Comment on above: Performed By: #### L 100.0100, L500.2500, L501.5200 ####[facility] [address] [place], [address] Creatinine [Mass/Vol] 0.85 mg/dL Normal 0.70-1.20 [facility] Comment on above: Performed By: #### L 100.0100, L500.2500, L501.5200 ####[facility] [address] [place], [address] ECRCL 45.12 ml/min Low 50-250 [facility] Comment on above: Performed By: #### L 100.0100, L500.2500, L501.5200 ####[facility] [address] [place], [address] GAP 12 Normal 5-15 [facility] Comment on above: Performed By: #### L 100.0100, L500.2500, L501.5200 ####[facility] [address] [place], [address] GFR/1.73 sq M.predicted among non-blacks MDRD (S/P/Bld) [Vol rate/Area] 71 mL/min/{1.73_m2} Normal >60 [facility] Comment on above: Result Comment: mL/m in/1.73m2 CKD-EPI Creatinine Equation (2020) Performed By: #### L 100.0100, L500.2500, L501.5200 ####[facility] [address] [place], [address] Glucose [Mass/Vol] 122 mg/dL High 70-99 [facility] Comment on above: Performed By: #### L 100.0100, L500.2500, L501.5200 ####[facility] [address] [place], [address] Potassium [Moles/Vol] 3.3 mmol/L Normal 3.3-5.1 [facility] Comment on above: Performed By: #### L 100.0100, L500.2500, L501.5200 ####[facility] [address] [place], [address] Sodium [Moles/Vol] 110 mmol/L Invalid Interpretation Code 133-145 [facility] Comment on above: Result Comment: Crit ical Result(s) Called at 0936: by: JASKARAN MURPHY. ??Results read back by same. Performed By: #### L 100.0100, L500.2500, L501.5200 ####[facility] [address] [place], [address] Urea nitrogen [Mass/Vol] 18 mg/dL Normal 4-19 [facility] Comment on above: Performed By: #### L 100.0100, L500.2500, L501.5200 ####[facility] [address] [place], [address] Bilirubin directOrdered By: Tiffanie Govea on 05-31-2025 Bilirubin.direct [Mass/Vol] 0.17 mg/dL 0.00-0.30 [facility] Comment on above: Performed By: #### L 100.9950, L503.6550, L503.6030, L500.3400 ####[facility] [address] [place], [address] CBC W/Diff, Automatedon 05-05 MCH (RBC) [Entitic mass] 28.6 pg Normal 27.0-32.0 [facility] Comment on above: Performed By: #### L 100.0100, L500.2500, L501.5200 ####[facility] [address] [place], [address] Hemoglobin (Bld) [Mass/Vol] 7.5 g/dL Low 12.0-15.0 [facility] Comment on above: Performed By: #### L 100.0100, L500.2500, L501.5200 ####[facility] [address] [place], [address] MCHC (RBC) [Mass/Vol] 35.8 g/dL Normal 32-36 [facility] Comment on above: Performed By: #### L 100.0100, L500.2500, L501.5200 ####[facility] [address] [place], [address] Absolute Lymph 0.98 X10 3/uL Normal 0.83-4.51 [facility] Comment on above: Performed By: #### L 100.0100, L500.2500, L501.5200 ####[facility] [address] [place], [address] Absolute Neut 5.9 X10 3/uL Normal 2.0-7.7 [facility] Comment on above: Performed By: #### L 100.0100, L500.2500, L501.5200 ####[facility] [address] [place], [address] Basophils/100 WBC (Bld) 0.3 % Normal 0-1 [facility] Comment on above: Performed By: #### L 100.0100, L500.2500, L501.5200 ####[facility] [address] [place], [address] Eosinophils/100 WBC (Bld) 0.9 % Normal 0-5 [facility] Comment on above: Performed By: #### L 100.0100, L500.2500, L501.5200 ####[facility] [address] [place], [address] Erythrocyte distribution width (RBC) [Ratio] 13.0 % Normal 11.6-14.6 [facility] Comment on above: Performed By: #### L 100.0100, L500.2500, L501.5200 ####[facility] [address] [place], [address] Hematocrit (Bld) [Volume fraction] 20.9 % Low 37-47 [facility] Comment on above: Performed By: #### L 100.0100, L500.2500, L501.5200 ####[facility] [address] [place], [address] IG% 0.800 Normal 0.0-0.9 [facility] Comment on above: Result Comment: IG% - Immature Granulocytes (promyelocytes, myelocytes andmetamyelocytes) > 1% indicates that a LEFT SHIFT is Present. Performed By: #### L 100.0100, L500.2500, L501.5200 ####[facility] [address] [place], [address] Lymphocytes/100 WBC (Bld) 12.5 % Low 19-41 [facility] Comment on above: Performed By: #### L 100.0100, L500.2500, L501.5200 ####[facility] [address] [place], [address] MCV (RBC) [Entitic vol] 79.8 fL Low 81-99 [facility] Comment on above: Performed By: #### L 100.0100, L500.2500, L501.5200 ####[facility] [address] [place], [address] Monocytes/100 WBC (Bld) 10.2 % High 0-10 [facility] Comment on above: Performed By: #### L 100.0100, L500.2500, L501.5200 ####[facility] [address] [place], [address] Neutrophils/100 WBC (Bld) 75.3 % High 47-70 [facility] Comment on above: Performed By: #### L 100.0100, L500.2500, L501.5200 ####[facility] [address] [place], [address] Nucleated RBC (Bld) [#/Vol] 0 10*3/uL Normal 0-5 [facility] Comment on above: Performed By: #### L 100.0100, L500.2500, L501.5200 ####[facility] [address] [place], [address] Platelet mean volume (Bld) [Entitic vol] 9.8 fL Normal 6.2-12.0 [facility] Comment on above: Performed By: #### L 100.0100, L500.2500, L501.5200 ####[facility] [address] [place], [address] Platelets (Bld) [#/Vol] 211 10*3/uL Normal 150-450 [facility] Comment on above: Performed By: #### L 100.0100, L500.2500, L501.5200 ####[facility] [address] [place], [address] RBC (Bld) [#/Vol] 2.62 10*6/uL Low 4.2-5.4 [facility] Comment on above: Performed By: #### L 100.0100, L500.2500, L501.5200 ####[facility] [address] [place], [address] RDW SD 37.2 fl Normal 35.1-43.9 [facility] Comment on above: Performed By: #### L 100.0100, L500.2500, L501.5200 ####[facility] [address] [place], [address] WBC (Bld) [#/Vol] 7.8 10*3/uL Normal 4.4-11.0 [facility] Comment on above: Performed By: #### L 100.0100, L500.2500, L501.5200 ####[facility] [address] [place], [address] Chest without Contraston Chest without Contrast Normal [facility] Echocardiogram study reportO rdered By: Lisandro Bernardo on 05-31-2025 Study report [facility] [address] [place] [address] Echo Complete 05/31/25 1045 MR#: [id number] Acct: [id number] Name: ALVARADO COHEN CALLI Rep #:[id number] : 1945 79 From: Lisandro Muñoz Attending Dr: Dr. Tiffanie Govea DO S tatus: ADM IN Ordering Dr: Conchita Burns MD Date: Location: U Sex: F C Admitted: 05/29/25 [...] Physician: Glenny Luque Performed By: Evelyn Darby, MAGDY 05/31/25 1635 Date _ Lisandro Bernardo MD CC: Dr. Tiffanie Govea DO; Dr. Glenny Luque MD; Dr. Conchita Burns MD ~ Date Dictated: 05/31/25 1045 Date Transcribed: 05/31/251634 Table Assembler: Signed [facility] Work Phone: Electrocardiogram reportOrde red By: Lisandro Bernardo on 05-31-2025 EKG study [facility] [address] [place] [address] 12 Lead EKG 05/29/25 1328 MR#: [id number] Acct: [id number] Name: ALVARADO COHEN CALLI Rep #:[id number] : 1945 79 From: Lisandro Bernardo MD [...] Abnormal ECG Confirmed by LISANDRO BERNARDO MD ([id number]), writer editor TORRI BOONE ([id number]) on 05/31/2025 7:31:47 AM Referred By: Confirmed By: LISANDRO BERNARDO MD 05/31/25 0731 Date _ Lisadnro Bernardo MD CC: Dr. Tiffanie Govea DO; Dr. Glenny Luque MD; Dr. Del Leyva DO ~ Signed [facility] Work Phone: Hemoglobinon 05-31-2025 Hemoglobin (Bld) [Mass/Vol] 7.3 g/dL Low 12.0-15.0 [facility] Comment on above: Performed By: #### L 100.1300 ####[facility] [address] [place], [address] Immature platelet percentage Ordered By: Tiffanie Govea on 05-31-2025 Platelets reticulated/100 platelets Auto (Bld) 7.8 % 1.0-7.9 [facility] Comment on above: Low PLT + Low [...] Iron (Unsp spec) [Mass/Mass] 66 ug/dL 50-170 [facility] Iron+Iron Binding Capacityon 05-31-2025 Iron [Mass/Vol] 66 ug/dL Normal 50-170 [facility] Comment on above: Performed By: #### L 100.9950, L503.6550, L503.6030, L500.3400 ####[facility] [address] [place], [address] IRON SATURATION 21.0 Normal 13-59 [facility] Comment on above: Performed By: #### L 100.9950, L503.6550, L503.6030, L500.3400 ####[facility] [address] [place], [address] TIBC 306 ug/dL Normal 250-450 [facility] Comment on above: Performed By: #### L 100.9950, L503.6550, L503.6030, L500.3400 ####[facility] [address] [place], [address] UIBC 240 ug/dL Normal 228-428 [facility] Comment on above: Performed By: #### L 100.9950, L503.6550, L503.6030, L500.3400 ####[facility] [address] [place], [address] Liver Profileon 05-31-2025 Albumin [Mass/Vol] 3.5 g/dL Normal 3.4-4.8 [facility] Comment on above: Performed By: #### L 100.9950, L503.6550, L503.6030, L500.3400 ####[facility] [address] [place], [address] ALK PHOS 63 U/L Normal 35-104 [facility] Comment on above: Performed By: #### L 100.9950, L503.6550, L503.6030, L500.3400 ####[facility] [address] [place], [address] ALT [Catalytic activity/Vol] 18 U/L Normal <=34 [facility] Comment on above: Performed By: #### L 100.9950, L503.6550, L503.6030, L500.3400 ####[facility] [address] [place], [address] AST [Catalytic activity/Vol] 25 U/L Normal <=31 [facility] Comment on above: Performed By: #### L 100.9950, L503.6550, L503.6030, L500.3400 ####[facility] [address] [place], [address] Bilirubin [Mass/Vol] 0.33 mg/dL Normal 0.00-1.30 [facility] [place] Comment on above: Performed By: #### L 100.9950, L503.6550, L503.6030, L500.3400 ####[facility] [address] [place], [address] Globulin (S) [Mass/Vol] 1.8 g/dL Low 2.2-4.2 [facility] Comment on above: Performed By: #### L 100.9950, L503.6550, L503.6030, L500.3400 ####[facility] [address] [place], [address] T PROT 5.3 g/dL Low 5.9-8.4 [facility] Comment on above: Performed By: #### L 100.9950, L503.6550, L503.6030, L500.3400 ####[facility] [address] [place], [address] Magnesiumon 05-31-2025 Magnesium [Mass/Vol] 1.8 mg/dL Normal 1.5-2.2 [facility] [place] Comment on above: Performed By: #### L 100.0100, L500.2500, L501.5200 ####[facility] [address] [place], [address] No Panel InformationOrdered By: Tiffanie Govea on 05-31-2025 Unsaturated Iron Binding Capacity 240 ug/dL 228-428 [facility] Renal Artery Duplex Ultrasou ndon 05-31-2025 Renal Artery Duplex Ultrasound Normal [facility] Retic Panelon 05-31-2025 IM RET FRACTION 5.70 Normal 3.00-15.90 [facility] Comment on above: Performed By: #### L 100.9950, L503.6550, L503.6030, L500.3400 ####[facility] [address] [place], [address] IPF 7.8 Normal 1.0-7.9 [facility] Comment on above: Result Comment: Low PLT + Low IPF suggest a bone marrow production disorderLow PLT + high IPF suggests peripheral destruction(e.g.ITP, TTP, HIT, DIC, autoimmune) or bone marrow recoveryTrending of serial IPF measurements is recommended whenevaluating for bone marrow responesValue above normal range indicates an increase in RBCcellular response from bone marrow. Performed By: #### L 100.9950, L503.6550, L503.6030, L500.3400 ####[facility] [address] [place], [address] RET-HE 33.9 pg Normal 30-35 [facility] Comment on above: Performed By: #### L 100.9950, L503.6550, L503.6030, L500.3400 ####[facility] [address] [place], [address] Retic Count 3.16 High 0.5-1.5 [facility] Comment on above: Performed By: #### L 100.9950, L503.6550, L503.6030, L500.3400 ####[facility] [address] [place], [address] Reticulocyte hemoglobin equi valent (RET-He) measurementOrdered By: Tiffanie Govea on 05-31-2025 Hemoglobin (Reticulocytes) [Entitic mass] 33.9 pg 30-35 [facility] Reticulocytes Auto (Bld) [#/ Vol]Ordered By: Tiffanie Govea on 05-31-2025 Reticulocytes/100 RBC (Bld) 3.16 % High 0.5-1.5 [facility] Serum or plasma ferritin reina surement (mass/volume)Ordered By: Tiffanie Govea on 05-31-2025 Ferritin [Mass/Vol] 48 ng/mL 22-378 [facility] Comment on above: Performed By: #### L 100.9950, L503.6550, L503.6030, L500.3400 ####[facility] [address] [place], [address] Serum or plasma iron saturat ion measurement (mass fraction)Ordered By: Tiffanie Govea on 05-31-2025 Iron saturation [Mass fraction] 21.0 % 13-59 [facility] Sodium Levelon 05-31-2025 Sodium [Moles/Vol] 109 mmol/L Invalid Interpretation Code 145 [facility] Comment on above: Result Comment: Crit ical Result(s) Called MGROVE at: 2224 by:ART??Results read back by same. Performed By: #### L 501.5300 ####[facility] [address] [place], [address] Sodium [Moles/Vol] 109 mmol/L Invalid Interpretation Code 145 [facility] Comment on above: Result Comment: Crit ical Result(s) Called HSMUCKER at: 1714 by:DENNISMAN??Results read back by same. Performed By: #### L 501.5300 ####[facility] [address] [place], [address] Sodium [Moles/Vol] 110 mmol/L Invalid Interpretation Code [facility] Comment on above: Result Comment: Crit ical Result(s) Called at: 0310 by:??SHILOH SELBY Results read back by same. Performed By: #### L 501.5300 ####[facility] [address] [place], [address] Type AND Screenon 05-31-2025 ABO and Rh group Nom (Bld) Blood group A Rh(D) positive Normal [facility] Comment on above: Order Comment: A Performed By: #### B TS ####[facility] [address] [place], [place], [address] Basic Metabolic Profile (BMP )on 05-30-2025 BUN/CRE 22.8 RATIO High 10-20 [facility] Comment on above: Performed By: #### L 100.0100, L500.2500 ####[facility] [address] [place], [address] Calcium [Mass/Vol] 7.8 mg/dL Normal 7.6-11.0 [facility] Comment on above: Performed By: #### L 100.0100, L500.2500 ####[facility] [address] [place], [address] Chloride [Moles/Vol] 76 mmol/L Low 98-108 [facility] [place] Comment on above: Performed By: #### L 100.0100, L500.2500 ####[facility] [address] [place], [address] CO2 [Moles/Vol] 22.6 mmol/L Normal 21.0-32.0 [facility] Comment on above: Performed By: #### L 100.0100, L500.2500 ####[facility] [address] [place], [address] Creatinine [Mass/Vol] 0.83 mg/dL Normal 0.70-1.20 [facility] Comment on above: Performed By: #### L 100.0100, L500.2500 ####[facility] [address] [place], [address] ECRCL 46.21 ml/min Low 50-250 [facility] Comment on above: Performed By: #### L 100.0100, L500.2500 ####[facility] [address] [place], [address] GAP 11 Normal 5-15 [facility] Comment on above: Performed By: #### L 100.0100, L500.2500 ####[facility] [address] [place], [address] GFR/1.73 sq M.predicted among non-blacks MDRD (S/P/Bld) [Vol rate/Area] 72 mL/min/{1.73_m2} Normal >60 [facility] Comment on above: Result Comment: mL/m in/1.73m2 CKD-EPI Creatinine Equation (2020) Performed By: #### L 100.0100, L500.2500 ####[facility] [address] [place], [address] Glucose [Mass/Vol] 95 mg/dL Normal 70-99 [facility] Comment on above: Performed By: #### L 100.0100, L500.2500 ####[facility] [address] [place], [address] Potassium [Moles/Vol] 3.0 mmol/L Low 3.3-5.1 [facility] Comment on above: Performed By: #### L 100.0100, L500.2500 ####[facility] [address] [place], [address] Sodium [Moles/Vol] 109 mmol/L Invalid Interpretation Code 133-145 [facility] Comment on above: Result Comment: Crit ical Result(s) Called at: by:??Results read back bysame.Critical Result(s) Called at: by:??Results read back bysame. Performed By: #### L 100.0100, L500.2500 ####[facility] [address] [place], [address] Urea nitrogen [Mass/Vol] 19 mg/dL Normal 4-19 [facility] Comment on above: Performed By: #### L 100.0100, L500.2500 ####[facility] [address] [place], [address] BUN Normal 4-19 [facility] Comment on above: Result Comment: DUPL ICATE ORDER Performed By: #### L 500.2500 ####[facility] [address] [place], [address] BUN/CRE Normal 10-20 [facility] Comment on above: Result Comment: DUPL ICATE ORDER Performed By: #### L 500.2500 ####[facility] [address] [place], [address] Calcium Normal 7.6-11.0 [facility] Comment on above: Result Comment: DUPL ICATE ORDER Performed By: #### L 500.2500 ####[facility] [address] [place], [address] CL Normal 98-108 [facility] Comment on above: Result Comment: DUPL ICATE ORDER Performed By: #### L 500.2500 ####[facility] [address] [place], [address] CO2 Normal 21.0-32.0 [facility] Comment on above: Result Comment: DUPL ICATE ORDER Performed By: #### L 500.2500 ####[facility] [address] [place], [address] CREAT,SERUM Normal 0.70-1.20 [facility] Comment on above: Result Comment: DUPL ICATE ORDER Performed By: #### L 500.2500 ####[facility] [address] [place], [address] eGFR Normal >60 [facility] Comment on above: Result Comment: DUPL ICATE ORDER Performed By: #### L 500.2500 ####[facility] [address] [place], [address] GAP Normal 5-15 [facility] Comment on above: Result Comment: DUPL ICATE ORDER Performed By: #### L 500.2500 ####[facility] [address] [place], [address] GLU Normal 70-99 [facility] Comment on above: Result Comment: DUPL ICATE ORDER Performed By: #### L 500.2500 ####[facility] [address] [place], [address] Potassium Normal 3.3-5.1 [facility] Comment on above: Result Comment: DUPL ICATE ORDER Performed By: #### L 500.2500 ####[facility] [address] [place], [address] Basic Metabolic Profile (BMP) Normal 133-145 [facility] Comment on above: Result Comment: DUPL ICATE ORDER Performed By: #### L 500.2500 ####[facility] [address] [place], [address] BUN/CRE 22.1 RATIO High 10-20 [facility] Comment on above: Performed By: #### L 500.2500 ####[facility] [address] [place], [address] Calcium [Mass/Vol] 8.3 mg/dL Normal 7.6-11.0 [facility] Comment on above: Performed By: #### L 500.2500 ####[facility] [address] [place], [address] Chloride [Moles/Vol] 73 mmol/L Invalid Interpretation Code 98-108 [facility] Comment on above: Result Comment: Crit ical Result(s) Called at: 0117 by: MANUELITO GALVEZ TO RNMWITUKI. ??Results read back by same. Performed By: #### L 500.2500 ####[facility] [address] [place], [address] CO2 [Moles/Vol] 22.6 mmol/L Normal 21.0-32.0 [facility] Comment on above: Performed By: #### L 500.2500 ####[facility] [address] [place], [address] Creatinine [Mass/Vol] 0.89 mg/dL Normal 0.70-1.20 [facility] Comment on above: Performed By: #### L 500.2500 ####[facility] [address] [place], [address] ECRCL 43.09 ml/min Low 50-250 [facility] Comment on above: Performed By: #### L 500.2500 ####[facility] [address] [place], [address] GAP 12 Normal 5-15 [facility] Comment on above: Performed By: #### L 500.2500 ####[facility] [address] [place], [address] GFR/1.73 sq M.predicted among non-blacks MDRD (S/P/Bld) [Vol rate/Area] 66 mL/min/{1.73_m2} Normal >60 [facility] Comment on above: Result Comment: mL/m in/1.73m2 CKD-EPI Creatinine Equation (2020) Performed By: #### L 500.2500 ####[facility] [address] [place], [address] Glucose [Mass/Vol] 107 mg/dL High 70-99 [facility] Comment on above: Performed By: #### L 500.2500 ####[facility] [address] [place], [address] Potassium [Moles/Vol] 3.1 mmol/L Low 3.3-5.1 [facility] Comment on above: Performed By: #### L 500.2500 ####[facility] [address] [place], [address] Sodium [Moles/Vol] 108 mmol/L Invalid Interpretation Code 133-145 [facility] Comment on above: Result Comment: Crit ical Result(s) Called at: 0117 by:??MANUELITO LINDSAY. Results read back by same. Performed By: #### L 500.2500 ####[facility] [address] [place], [address] Urea nitrogen [Mass/Vol] 20 mg/dL High 4-19 [facility] Comment on above: Performed By: #### L 500.2500 ####[facility] [address] [place], [address] CBC W/Diff, Automatedon 07-2 Absolute Lymph 0.96 X10 3/uL Normal 0.83-4.51 [facility] Comment on above: Performed By: #### L 100.0100, L500.2500 ####[facility] [address] [place], [address] Absolute Neut 6.1 X10 3/uL Normal 2.0-7.7 [facility] Comment on above: Performed By: #### L 100.0100, L500.2500 ####[facility] [address] [place], [address] Basophils/100 WBC (Bld) 0.4 % Normal 0-1 [facility] Comment on above: Performed By: #### L 100.0100, L500.2500 ####[facility] [address] [place], [address] Eosinophils/100 WBC (Bld) 0.9 % Normal 0-5 [facility] Comment on above: Performed By: #### L 100.0100, L500.2500 ####[facility] [address] [place], [address] Erythrocyte distribution width (RBC) [Ratio] 13.0 % Normal 11.6-14.6 [facility] Comment on above: Performed By: #### L 100.0100, L500.2500 ####[facility] [address] [place], [address] Hematocrit (Bld) [Volume fraction] 23.2 % Low 37-47 [facility] Comment on above: Performed By: #### L 100.0100, L500.2500 ####[facility] [address] [place], [address] Hemoglobin (Bld) [Mass/Vol] 8.6 g/dL Low 12.0-15.0 [facility] Comment on above: Performed By: #### L 100.0100, L500.2500 ####[facility] [address] [place], [address] IG% 0.400 Normal 0.0-0.9 [facility] Comment on above: Result Comment: IG% - Immature Granulocytes (promyelocytes, myelocytes andmetamyelocytes) > 1% indicates that a LEFT SHIFT is Present. Performed By: #### L 100.0100, L500.2500 ####[facility] [address] [place], [address] Lymphocytes/100 WBC (Bld) 12.1 % Low 19-41 [facility] Comment on above: Performed By: #### L 100.0100, L500.2500 ####[facility] [address] [place], [address] MCH (RBC) [Entitic mass] 29.6 pg Normal 27.0-32.0 [facility] Comment on above: Performed By: #### L 100.0100, L500.2500 ####[facility] [address] [place], [address] MCHC (RBC) [Mass/Vol] 37.1 g/dL High 32-36 [facility] Comment on above: Performed By: #### L 100.0100, L500.2500 ####[facility] [address] [place], [address] MCV (RBC) [Entitic vol] 79.7 fL Low 81-99 [facility] Comment on above: Performed By: #### L 100.0100, L500.2500 ####[facility] [address] [place], [address] Monocytes/100 WBC (Bld) 8.9 % Normal 0-10 [facility] Comment on above: Performed By: #### L 100.0100, L500.2500 ####[facility] [address] [place], [address] Neutrophils/100 WBC (Bld) 77.3 % High 47-70 [facility] Comment on above: Performed By: #### L 100.0100, L500.2500 ####[facility] [address] [place], [address] Nucleated RBC (Bld) [#/Vol] 0 10*3/uL Normal 0-5 [facility] Comment on above: Performed By: #### L 100.0100, L500.2500 ####[facility] [address] [place], [address] Platelet mean volume (Bld) [Entitic vol] 9.4 fL Normal 6.2-12.0 [facility] Comment on above: Performed By: #### L 100.0100, L500.2500 ####[facility] [address] [place], [address] Platelets (Bld) [#/Vol] 192 10*3/uL Normal 150-450 [facility] Comment on above: Performed By: #### L 100.0100, L500.2500 ####[facility] [address] [place], [address] RBC (Bld) [#/Vol] 2.91 10*6/uL Low 4.2-5.4 [facility] Comment on above: Performed By: #### L 100.0100, L500.2500 ####[facility] [address] [place], [address] RDW SD 37.2 fl Normal 35.1-43.9 [facility] Comment on above: Performed By: #### L 100.0100, L500.2500 ####[facility] [address] [place], [address] WBC (Bld) [#/Vol] 7.9 10*3/uL Normal 4.4-11.0 [facility] Comment on above: Performed By: #### L 100.0100, L500.2500 ####[facility] [address] [place], [address] Consultation - Nephrologyon 05-30-2025 Consultation - Nephrology Normal [facility] Magnesiumon 05-30-2025 Magnesium [Mass/Vol] 1.4 mg/dL Low 1.5-2.2 [facility] Comment on above: Order Comment: Comme nts: Add onto previous labs if possible Performed By: #### L 501.5200 ####[facility] [address] [place], [address] Sodium Levelon 05-30-2025 Sodium [Moles/Vol] 109 mmol/L Invalid Interpretation Code 133-145 [facility] Comment on above: Result Comment: Crit ical Result(s) Called at: 6 by: ISAC KONG Results read back by same. Performed By: #### L 501.5300 ####[facility] [address] [place], [address] Sodium [Moles/Vol] 110 mmol/L Invalid Interpretation Code -145 [facility] Comment on above: Result Comment: Crit ical Result(s) Called at: 1551 by: ISAC CHAPPELL ??Results read back by same. Performed By: #### L 501.5300 ####[facility] [address] [place], [address] Sodium [Moles/Vol] 110 mmol/L Invalid Interpretation Code 133-145 [facility] Comment on above: Result Comment: Crit ical Result(s) Called at: 05/30/2025-10:54 by: Renny Ochoa.??Results read back by same. Performed By: #### L 501.5300 ####[facility] [address] [place], [address] 12 Lead EKGon 05-29-2025 12 Lead EKG Normal [facility] Anion gap in Serum or Plasma Ordered By: Del Leyva on 05-29-2025 Anion gap [Moles/Vol] 14 mmol/L 5-15 [facility] BUN/creatinine ratioOrdered By: Del Leyva on 05-29-2025 Urea nitrogen/Creatinine [Mass ratio] 21.1 mg/mg High 10- [facility] Basic Metabolic Profile (BMP )on 05-29-2025 BUN/CRE 20.0 RATIO Normal 08-23 [facility] Comment on above: Performed By: #### L 500.2500 ####[facility] [address] [place], [address] Calcium [Mass/Vol] 8.4 mg/dL Normal 7.6-11.0 [facility] Comment on above: Performed By: #### L 500.2500 ####[facility] [address] [place], [address] Chloride [Moles/Vol] 74 mmol/L Invalid Interpretation Code 98-108 [facility] Comment on above: Result Comment: Crit ical Result(s) Called at: 2245 by: MANUELITO GALVEZ TO TIMMER2. ??Results read back by same. Performed By: #### L 500.2500 ####[facility] [address] [place], [address] CO2 [Moles/Vol] 22.3 mmol/L Normal 21.0-32.0 [facility] Comment on above: Performed By: #### L 500.2500 ####[facility] [address] [place], [address] Creatinine [Mass/Vol] 0.96 mg/dL Normal 0.70-1.20 [facility] Comment on above: Performed By: #### L 500.2500 ####[facility] [address] [place], [address] ECRCL 39.95 ml/min Low 50-250 [facility] Comment on above: Performed By: #### L 500.2500 ####[facility] [address] [place], [address] GAP 11 Normal 5-15 [facility] Comment on above: Performed By: #### L 500.2500 ####[facility] [address] [place], [address] GFR/1.73 sq M.predicted among non-blacks MDRD (S/P/Bld) [Vol rate/Area] 61 mL/min/{1.73_m2} Normal >60 [facility] Comment on above: Result Comment: mL/m in/1.73m2 CKD-EPI Creatinine Equation (2020) Performed By: #### L 500.2500 ####[facility] [address] [place], [address] Glucose [Mass/Vol] 106 mg/dL High 70-99 [facility] Comment on above: Performed By: #### L 500.2500 ####[facility] [address] [place], [address] Potassium [Moles/Vol] 3.3 mmol/L Normal 3.3-5.1 [facility] Comment on above: Performed By: #### L 500.2500 ####[facility] [address] [place], [address] Sodium [Moles/Vol] 107 mmol/L Invalid Interpretation Code 133-145 [facility] Comment on above: Result Comment: Crit ical Result(s) Called at: 2245 by:??MANUELITO CALXI2. Results read back by same. Performed By: #### L 500.2500 ####[facility] [address] [place], [address] Urea nitrogen [Mass/Vol] 19 mg/dL Normal 4-19 [facility] Comment on above: Performed By: #### L 500.2500 ####[facility] [address] [place], [address] BUN/CRE 22.2 RATIO High 10-20 [facility] Comment on above: Performed By: #### L 500.2500 ####[facility] [address] [place], [address] Calcium [Mass/Vol] 8.6 mg/dL Normal 7.6-11.0 [facility] Comment on above: Performed By: #### L 500.2500 ####[facility] [address] [place], [address] Chloride [Moles/Vol] 74 mmol/L Invalid Interpretation Code 98-108 [facility] Comment on above: Result Comment: Crit ical Result(s) Called at: 1754 by:??ISAC LOGAN Results read back by same. Performed By: #### L 500.2500 ####[facility] [address] [place], [address] CO2 [Moles/Vol] 22.2 mmol/L Normal 21.0-32.0 [facility] Comment on above: Performed By: #### L 500.2500 ####[facility] [address] [place], [address] Creatinine [Mass/Vol] 0.94 mg/dL Normal 0.70-1.20 [facility] Comment on above: Performed By: #### L 500.2500 ####[facility] [address] [place], [address] ECRCL 40.80 ml/min Low 50-250 [facility] Comment on above: Performed By: #### L 500.2500 ####[facility] [address] [place], [address] GAP 13 Normal 5-15 [facility] Comment on above: Performed By: #### L 500.2500 ####[facility] [address] [place], [address] GFR/1.73 sq M.predicted among non-blacks MDRD (S/P/Bld) [Vol rate/Area] 62 mL/min/{1.73_m2} Normal >60 [facility] Comment on above: Result Comment: mL/m in/1.73m2 CKD-EPI Creatinine Equation (2020) Performed By: #### L 500.2500 ####[facility] [address] [place], [address] Glucose [Mass/Vol] 106 mg/dL High 70-99 [facility] Comment on above: Performed By: #### L 500.2500 ####[facility] [address] [place], [address] Potassium [Moles/Vol] 3.3 mmol/L Normal 3.3-5.1 [facility] Comment on above: Performed By: #### L 500.2500 ####[facility] [address] [place], [address] Sodium [Moles/Vol] 109 mmol/L Invalid Interpretation Code 133-145 [facility] Comment on above: Result Comment: Crit ical Result(s) Called at: 1754 by: ISAC LOGAN??Results read back by same. Performed By: #### L 500.2500 ####[facility] [address] [place], [address] Urea nitrogen [Mass/Vol] 21 mg/dL High 4-19 [facility] Comment on above: Performed By: #### L 500.2500 ####[facility] [address] [place], [address] BUN/CRE 21.1 RATIO High 10-20 [facility] Comment on above: Performed By: #### L 500.2500 ####[facility] [address] [place], [address] Calcium [Mass/Vol] 8.4 mg/dL Normal 7.6-11.0 [facility] Comment on above: Performed By: #### L 500.2500 ####[facility] [address] [place], [address] Chloride [Moles/Vol] 72 mmol/L Invalid Interpretation Code 98-108 [facility] Comment on above: Result Comment: Crit ical Result(s) Called at: 1521 by:??ISAC CHRISTIANSON Results read back by same. Performed By: #### L 500.2500 ####[facility] [address] [place], [address] CO2 [Moles/Vol] 21.3 mmol/L Normal 21.0-32.0 [facility] Comment on above: Performed By: #### L 500.2500 ####[facility] [address] [place], [address] Creatinine [Mass/Vol] 1.04 mg/dL Normal 0.70-1.20 [facility] Comment on above: Performed By: #### L 500.2500 ####[facility] [address] [place], [address] ECRCL 36.88 ml/min Low 50-250 [facility] Comment on above: Performed By: #### L 500.2500 ####[facility] [address] [place], [address] GAP 14 Normal 5-15 [facility] Comment on above: Performed By: #### L 500.2500 ####[facility] [address] [place], [address] GFR/1.73 sq M.predicted among non-blacks MDRD (S/P/Bld) [Vol rate/Area] 55 mL/min/{1.73_m2} Low >60 [facility] Comment on above: Result Comment: mL/m in/1.73m2 CKD-EPI Creatinine Equation (2020) Performed By: #### L 500.2500 ####[facility] [address] [place], [address] Glucose [Mass/Vol] 113 mg/dL High 70-99 [facility] Comment on above: Performed By: #### L 500.2500 ####[facility] [address] [place], [address] Potassium [Moles/Vol] 3.3 mmol/L Normal 3.3-5.1 [facility] Comment on above: Performed By: #### L 500.2500 ####[facility] [address] [place], [address] Sodium [Moles/Vol] 107 mmol/L Invalid Interpretation Code 133-145 [facility] Comment on above: Result Comment: Crit ical Result(s) Called at: 1521 by:??ISAC CHRISTIANSON Results read back by same. Performed By: #### L 500.2500 ####[facility] [address] [place], [address] Urea nitrogen [Mass/Vol] 22 mg/dL High 4-19 [facility] Comment on above: Performed By: #### L 500.2500 ####[facility] [address] [place], [address] Bilirubin Test strip Ql (U)O rdered By: Del Leyva on 05-29-2025 Bilirubin Ql (U) Negative Negative [facility] Bilirubin, totalOrdered By: Del Leyva on 05-29-2025 Bilirubin [Mass/Vol] 0.44 mg/dL 0.00-1.30 [facility] Brain/Head without Contrasto n 07-26-2025 Brain/Head without Contrast Normal [facility] CBC-Complete Blood Cnt No Di ffon 05-29-2025 Erythrocyte distribution width (RBC) [Ratio] 13.2 % Normal 11.6-14.6 [facility] Comment on above: Performed By: #### L 501.4021, L100.0500, L503.7505, L500.4050 ####[facility] [address] [place], [address] Hematocrit (Bld) [Volume fraction] 27.1 % Low 37-47 [facility] Comment on above: Performed By: #### L 501.4021, L100.0500, L503.7505, L500.4050 ####[facility] [address] [place], [address] Hemoglobin (Bld) [Mass/Vol] 10.2 g/dL Low 12.0-15.0 [facility] Comment on above: Performed By: #### L 501.4021, L100.0500, L503.7505, L500.4050 ####[facility] [address] [place], [address] MCH (RBC) [Entitic mass] 29.5 pg Normal 27.0-32.0 [facility] Comment on above: Performed By: #### L 501.4021, L100.0500, L503.7505, L500.4050 ####[facility] [address] [place], [address] MCHC (RBC) [Mass/Vol] 37.6 g/dL High 32-36 [facility] Comment on above: Performed By: #### L 501.4021, L100.0500, L503.7505, L500.4050 ####[facility] [address] [place], [address] MCV (RBC) [Entitic vol] 78.3 fL Low 81-99 [facility] Comment on above: Performed By: #### L 501.4021, L100.0500, L503.7505, L500.4050 ####[facility] [address] [place], [address] Platelet mean volume (Bld) [Entitic vol] 9.3 fL Normal 6.2-12.0 [facility] Comment on above: Performed By: #### L 501.4021, L100.0500, L503.7505, L500.4050 ####[facility] [address] [place], [address] Platelets (Bld) [#/Vol] 257 10*3/uL Normal 150-450 [facility] Comment on above: Performed By: #### L 501.4021, L100.0500, L503.7505, L500.4050 ####[facility] [address] [place], [address] RBC (Bld) [#/Vol] 3.46 10*6/uL Low 4.2-5.4 [facility] Comment on above: Performed By: #### L 501.4021, L100.0500, L503.7505, L500.4050 ####[facility] [address] [place], [address] RDW SD 37.3 fl Normal 35.1-43.9 [facility] Comment on above: Performed By: #### L 501.4021, L100.0500, L503.7505, L500.4050 ####[facility] [address] [place], [address] WBC (Bld) [#/Vol] 8.6 10*3/uL Normal 4.4-11.0 [facility] Comment on above: Performed By: #### L 501.4021, L100.0500, L503.7505, L500.4050 ####[facility] [address] [place], [address] Calculated very low density lipoprotein (VLDL) cholesterol measurementOrdered By: Conchita Burns on 05-29-2025 Calculated very low density lipoprotein (VLDL) cholesterol measurement 19 mg/dL 5-40 [facility] Carbon dioxide, total [Moles /volume] in Central venous bloodOrdered By: Del Leyva on 05-29-2025 CO2 [Moles/Vol] 21.3 mmol/L 21.0-32.0 [facility] Chest 1 View (Portable)on Chest 1 View (Portable) Normal [facility] Chloride assayOrdered By: Th geno Leyva on 05-29-2025 Chloride [Moles/Vol] 72 mmol/L Low 98-108 [facility] Comment on above: Critical Result(s) C alled at: 1521 by: ISAC KEENAN TO MILLA TENNENT Results read back by same. Comprehensive Metabolic Prof citlalion 05-29-2025 Albumin [Mass/Vol] 3.9 g/dL Normal 3.4-4.8 [facility] Comment on above: Performed By: #### L 501.4021, L100.0500, L503.7505, L500.4050 ####[facility] [address] [place], [address] Albumin/Globulin [Mass ratio] 1.7 {ratio} Normal 0.9-2.4 [facility] Comment on above: Performed By: #### L 501.4021, L100.0500, L503.7505, L500.4050 ####[facility] [address] [place], [address] ALK PHOS 76 U/L Normal 35-104 [facility] Comment on above: Performed By: #### L 501.4021, L100.0500, L503.7505, L500.4050 ####[facility] [address] [place], [address] ALT [Catalytic activity/Vol] 23 U/L Normal <=34 [facility] Comment on above: Performed By: #### L 501.4021, L100.0500, L503.7505, L500.4050 ####[facility] [address] [place], [address] AST [Catalytic activity/Vol] 21 U/L Normal <=31 [facility] Comment on above: Performed By: #### L 501.4021, L100.0500, L503.7505, L500.4050 ####[facility] [address] [place], [address] Bilirubin [Mass/Vol] 0.44 mg/dL Normal 0.00-1.30 [facility] Comment on above: Performed By: #### L 501.4021, L100.0500, L503.7505, L500.4050 ####[facility] [address] [place], [address] BUN/CRE 20.2 RATIO High 10-20 [facility] Comment on above: Performed By: #### L 501.4021, L100.0500, L503.7505, L500.4050 ####[facility] [address] [place], [address] Calcium [Mass/Vol] 8.7 mg/dL Normal 7.6-11.0 [facility] Comment on above: Performed By: #### L 501.4021, L100.0500, L503.7505, L500.4050 ####[facility] [address] [place], [address] Chloride [Moles/Vol] 73 mmol/L Invalid Interpretation Code 98-108 [facility] Comment on above: Result Comment: Crit ical Result(s) Called at: 05/29/2025-14:38 by: Renny Aponte.??Results read back by same. Performed By: #### L 501.4021, L100.0500, L503.7505, L500.4050 ####[facility] [address] [place], [address] CO2 [Moles/Vol] 21.6 mmol/L Normal 21.0-32.0 [facility] Comment on above: Performed By: #### L 501.4021, L100.0500, L503.7505, L500.4050 ####[facility] [address] [place], [address] Creatinine [Mass/Vol] 1.06 mg/dL Normal 0.70-1.20 [facility] Comment on above: Performed By: #### L 501.4021, L100.0500, L503.7505, L500.4050 ####[facility] [address] [place], [address] ECRCL 36.18 ml/min Low 50-250 [facility] Comment on above: Performed By: #### L 501.4021, L100.0500, L503.7505, L500.4050 ####[facility] [address] [place], [address] GAP 12 Normal 5-15 [facility] Comment on above: Performed By: #### L 501.4021, L100.0500, L503.7505, L500.4050 ####[facility] [address] [place], [address] GFR/1.73 sq M.predicted among non-blacks MDRD (S/P/Bld) [Vol rate/Area] 54 mL/min/{1.73_m2} Low >60 [facility] Comment on above: Result Comment: mL/m in/1.73m2 CKD-EPI Creatinine Equation (2020) Performed By: #### L 501.4021, L100.0500, L503.7505, L500.4050 ####[facility] [address] [place], [address] Globulin (S) [Mass/Vol] 2.3 g/dL Normal 2.2-4.2 [facility] Comment on above: Performed By: #### L 501.4021, L100.0500, L503.7505, L500.4050 ####[facility] [address] [place], [address] Glucose [Mass/Vol] 121 mg/dL High 70-99 [facility] Comment on above: Performed By: #### L 501.4021, L100.0500, L503.7505, L500.4050 ####[facility] [address] [place], [address] Potassium [Moles/Vol] 3.5 mmol/L Normal 3.3-5.1 [facility] Comment on above: Performed By: #### L 501.4021, L100.0500, L503.7505, L500.4050 ####[facility] [address] [place], [address] Sodium [Moles/Vol] 106 mmol/L Invalid Interpretation Code 133-145 [facility] Comment on above: Result Comment: Crit ical Result(s) Called at: 05/29/2025-14:38 by: Renny to Laurel Aponte.??Results read back by same. Performed By: #### L 501.4021, L100.0500, L503.7505, L500.4050 ####[facility] [address] [place], [address] T PROT 6.2 g/dL Normal 5.9-8.4 [facility] Comment on above: Performed By: #### L 501.4021, L100.0500, L503.7505, L500.4050 ####[facility] [address] [place], [address] Urea nitrogen [Mass/Vol] 21 mg/dL High 4-19 [facility] Comment on above: Performed By: #### L 501.4021, L100.0500, L503.7505, L500.4050 ####[facility] [address] [place], [address] Creatinine, Urine (random)on 05-29-2025 UR CREAT 43.90 mg/dL Normal 28.00-217.00 [facility] Comment on above: Performed By: #### L 502.0715, L501.1200, L500.9400, L501.7400 ####[facility] [address] [place], [address] Echo Completeon 05-29-2025 Echo Complete Normal [facility] Emergency Department Summary on 05-29-2025 Emergency Department Summary Normal [facility] Erythrocyte distribution wid th ratioOrdered By: Del Leyva on 05-29-2025 Erythrocyte distribution width (RBC) [Ratio] 13.2 % 11.6-14.6 [facility] Erythrocyte distribution wid th standard deviationOrdered By: Del Leyva on 05-29-2025 Erythrocyte distribution width (RBC) [Ratio] 37.3 fl 35.1-43.9 [facility] Glomerular filtration rate ( GFR) estimation/1.73 sq m using serum, plasma, or whole bOrdered By: Del Leyva on 05-29-2025 GFR/1.73 sq M.predicted among non-blacks MDRD (S/P/Bld) [Vol rate/Area] 55 mL/min/{1.73_m2} Low >60 [facility] Comment on above: mL/min/1.73m2 CKD-EP I Creatinine Equation (2020) H AND P Exam - Hospitaliston 05-29-2025 H&P Exam - Hospitalist Normal [facility] Hematocrit Auto (Bld) [Volum e fraction]Ordered By: Del Leyva on 05-29-2025 Hematocrit (Bld) [Volume fraction] 27.1 % Low 37-47 [facility] Hemoglobin measurementOrdere d By: Del Leyva on 07-26-2025 Hemoglobin (Bld) [Mass/Vol] 10.2 g/dL Low 12.0-15.0 [facility] Ketones Test strip Ql (U)Ord ered By: Del Leyva on 05-29-2025 Ketones Ql (U) 5 mg/dl High Negative [facility] L501.4021on 05-29-2025 Trop T High Sen 20 ng/L High <=14 [facility] Comment on above: Performed By: #### L 501.4021, L100.0500, L503.7505, L500.4050 ####[facility] [address] [place], [address] L509.6002on 05-29-2025 CORTISOL 18.30 ug/dL High 2.68-10.50 [facility] Comment on above: Order Comment: jude gavin cortisol for now Performed By: #### L 500.4100, L509.6002, L501.7300, L501.9520 ####[facility] [address] [place], [address] LDL calc ser/plasOrdered By: Conchita Burns on 05-29-2025 Cholesterol in LDL [Mass/Vol] 82 mg/dL [facility] Comment on above: Vytsmbirrs=046-169 m g/dL & Higher Jmlc=424 mg/dL or greaterFriedwald Equation for LDL-C Laboratory - Chemistry and C hemistry - challengeOrdered By: Del Leyva on 05-29-2025 AST [Catalytic activity/Vol] 21 U/L <32 [facility] Lipid Profileon 05-29-2025 CHOL:HDL 2.49 Normal [facility] Comment on above: Performed By: #### L 500.4100, L509.6002, L501.7300, L501.9520 ####[facility] [address] [place], [address] Cholesterol [Mass/Vol] 170 mg/dL Normal <=200 [facility] Comment on above: Result Comment: Chol esterol level, Desirable <200 mg/dLBorderline high cholesterol 200-239 mg/dLHigh cholesterol >=240 mg/dLRecommendations of the NCEP Adult Treatment Panel for thefollowing risk-cutoff thresholds for the [place] [facility]. Performed By: #### L 500.4100, L509.6002, L501.7300, L501.9520 ####[facility] [address] [place], [address] Cholesterol in HDL [Mass/Vol] 68 mg/dL Normal [facility] Comment on above: Result Comment: Xochitl onal Cholesterol Education Program (NCEP) guidelines:<40 mg/dL: Low HDL-cholesterol (major risk factor for CHD)>= 60 mg/dL: High HDL-cholesterol (negative risk factor forCHD)HDL-cholesterol is affected by a number of factors, e.g.smoking, exercise, hormones, sex and age. Performed By: #### L 500.4100, L509.6002, L501.7300, L501.9520 ####[facility] [address] [place], [address] Cholesterol in LDL [Mass/Vol] 82 mg/dL Normal [facility] Comment on above: Result Comment: Bord ytdhff=788-532 mg/dL Higher Jmxb=394 mg/dL or greaterFriedwald Equation for LDL-C Performed By: #### L 500.4100, L509.6002, L501.7300, L501.9520 ####[facility] [address] [place], [address] Cholesterol in VLDL [Mass/Vol] 19 mg/dL Normal 5-40 [facility] Comment on above: Performed By: #### L 500.4100, L509.6002, L501.7300, L501.9520 ####[facility] [address] [place], [address] Triglyceride [Mass/Vol] 96 mg/dL Normal [facility] Comment on above: Result Comment: The drugs N-Acetylcysteine and Metamizole may falselydepress this assay.Normal range: <150 mg/dLBorderline High: 150-199 mg/dLHigh: 200-499 mg/dLVery High: >500 mg/dL Performed By: #### L 500.4100, L509.6002, L501.7300, L501.9569 ####[facility] [address] [place], [address] MCV (mean corpuscular volume ) determinationOrdered By: Del Leyva on 05-29-2025 MCV (RBC) [Entitic vol] 78.3 fL Low 81-99 [facility] Mean corpuscular hemoglobin (MCH) determinationOrdered By: Del Leyva on 05-29-2025 MCH (RBC) [Entitic mass] 29.5 pg 27.0-32.0 [facility] Mean corpuscular hemoglobin concentration (MCHC) determinationOrdered By: Del Leyva on 05-29-2025 MCHC (RBC) [Mass/Vol] 37.6 g/dL High 32-36 [facility] Mean platelet volume determi nationOrdered By: Del Leyva on 05-29-2025 Platelet mean volume (Bld) [Entitic vol] 9.3 fL 6.2-12.0 [facility] Microscopic analysis of urin e for red blood cells (RBC)Ordered By: Del Leyva on 05-29-2025 Microscopic analysis of urine for red blood cells (RBC) 0 SEEN /hpf 0-5 [facility] Mucus LM Ql (Urine sed)Order ed By: Del Leyva on 05-29-2025 Mucus Ql (Urine sed) 0 SEEN /hpf [facility] Natriuretic peptide.B prohor pooja N-Terminal [Mass/volume] in Serum or PlasmaOrdered By: Del Leyva on 05-29-2025 Natriuretic peptide.B prohormone N-Terminal [Mass/Vol] 5274 pg/mL High <1800 [facility] Comment on above: Heart Failure Unlike ly: < 300 pg/mLHeart Failure Likely< 50 Years: > 450 pg/mL50-75 Years: > 900 pg/mL>75 Years: > 1800 pg/mL Nitrite Test strip Ql (U)Ord ered By: Del Leyva on 05-29-2025 Nitrite Ql (U) Negative Negative [facility] Osmolality urOrdered By: Mir Burns on 05-29-2025 Osmolality (U) [Osmolality] 371 mOsm/KG >50 [facility] Comment on above: Normal Urine Referen ce Ranges Random: 50 - 1200 mOsm/kg H20 depending on fluid intake Random: >850 mOsm/kg after 12 hour fluid restriction 24 hour: ~300 - 900 mOsm/kg H2O Osmolality, Serumon 05-29-20 25 OSMOLALITY,SER 236 mOsm/KG Low 280-301 [facility] Comment on above: Performed By: #### L 500.4100, L509.6002, L501.7300, L501.9520 ####[facility] [address] [facility] [place], [address] Osmolality, Urineon 05-29-20 25 OSMOLALITY,UR 371 mOsm/KG Normal [facility] Comment on above: Result Comment: Norm al Urine Reference Ranges Random: 50 - 1200 mOsm/kg H20 depending on fluid intake Random: >850 mOsm/kg after 12 hour fluid restriction 24 hour: 300 - 900 mOsm/kg H2O Performed By: #### L 502.0715, L501.1200, L500.9400, L501.7400 ####[facility] [address] [facility] [place], [place], [address] Platelet countOrdered By: Barb Leyva on 05-29-2025 Platelets (Bld) [#/Vol] 257 10*3/uL 150-450 [facility] Potassium measurement (mass/ volume)Ordered By: Del Leyva on 05-29-2025 Potassium (Unsp spec) [Mass/Vol] 3.3 mmol/L 3.3-5.1 [facility] Pro- Brain NATRIURETIC PEPTI Dawit 05-29-2025 Natriuretic peptide B (Bld) [Mass/Vol] 5274 pg/mL High <=1800 [facility] Comment on above: Result Comment: Hear t Failure Unlikely: < 300 pg/mLHeart Failure Likely< 50 Years: > 450 pg/mL50-75 Years: > 900 pg/mL>75 Years: > 1800 pg/mL Performed By: #### L 501.4021, L100.0500, L503.7505, L500.4050 ####[facility] [address] [place], [address] Protein Test strip Ql (U)Ord ered By: Del Leyva on 05-29-2025 Protein Ql (U) 15 mg/dl High Negative [facility] RBC Auto (Bld) [#/Vol]Ordere d By: Del Leyva on 05-29-2025 RBC (Bld) [#/Vol] 3.46 10*6/uL Low 4.2-5.4 [facility] Random urine creatinine tisha urement (mass/volume)Ordered By: Conchita Burns on 05-29-2025 Creatinine Unsp time (U) [Mass/Vol] 43.90 mg/dL 28.00-217.00 [facility] Screening total cholesterol/ high density lipoprotein (HDL) cholesterol ratioOrdered By: Conchita Burns on 05-29-2025 Cholesterol.total/Mandi sterol in HDL [Mass ratio] 2.49 {ratio} [facility] Serum creatinine measurement (mass/volume)Ordered By: Del Leyva on 05-29-2025 Creatinine [Mass/Vol] 1.04 mg/dL 0.70-1.20 [facility] Serum globulin measurementOr dered By: Del Leyva on 05-29-2025 Globulin (S) [Mass/Vol] 2.3 g/dL 2.2-4.2 [facility] Serum glucose measurement (m ass/volume)Ordered By: Del Leyva on 05-29-2025 Glucose [Mass/Vol] 113 mg/dL High 70-99 [facility] Serum or plasma alanine de león otransferase (ALT) measurementOrdered By: Del Leyva on 05-29-2025 ALT [Catalytic activity/Vol] 23 U/L <35 [facility] Serum or plasma albumin tisha urement (mass/volume)Ordered By: Del Leyva on 05-29-2025 Albumin [Mass/Vol] 3.9 g/dL 3.4-4.8 [facility] Serum or plasma albumin/glob ulin mass ratioOrdered By: Del Leyva on 05-29-2025 Albumin/Globulin [Mass ratio] 1.7 {ratio} 0.9-2.4 [facility] Serum or plasma alkaline bud sphatase measurementOrdered By: Del Leyva on 05-29-2025 ALP [Catalytic activity/Vol] 76 U/L 35-104 [facility] Serum or plasma calcium tisha urement (mass/volume)Ordered By: Del Leyva on 05-29-2025 Calcium [Mass/Vol] 8.4 mg/dL 7.6-11.0 [facility] Serum or plasma cholesterol in HDL measurement (mass/volume)Ordered By: Conchita Burns on 05-29-2025 Cholesterol in HDL [Mass/Vol] 68 mg/dL >40 [facility] Comment on above: National Cholesterol Education Program (NCEP) guidelines:<40 mg/dL: Low HDL-cholesterol (major risk factor for CHD)>= 60 mg/dL: High HDL-cholesterol (negative risk factor for CHD)HDL-cholesterol is affected by a number of factors, e.g. smoking, exercise, hormones, sex and age. Serum or plasma cholesterol measurement (mass/volume)Ordered By: Conchita Burns on 05-29-2025 Cholesterol [Mass/Vol] 170 mg/dL <201 [facility] Comment on above: Cholesterol level, D esirable <200 mg/dLBorderline high cholesterol 200-239 mg/dLHigh cholesterol >=240 mg/dLRecommendations of the NCEP Adult Treatment Panel for the following risk-cutoff thresholds for the [place] population. Serum or plasma cortisol reina surement (mass/volume)Ordered By: Conchita Burns on 05-29-2025 Cortisol [Mass/Vol] 18.30 ug/dL High 2.68-10.50 [facility] Serum or plasma urea nitroge n measurement (mass/volume)Ordered By: Del Leyva on 05-29-2025 Urea nitrogen [Mass/Vol] 22 mg/dL High 4-19 [facility] Sodium levelOrdered By: Paty Leyva on 05-29-2025 Sodium [Moles/Vol] 107 mmol/L Low 133-145 [facility] Comment on above: Critical Result(s) C alled at: 1521 by: ISAC KEENAN TO MILLA TENNENT Results read back by same. Squamous epithelial cells de tection in urine sediment by light microscopyOrdered By: Del Leyva on 05-29-2025 Epithelial cells.squamous LM Ql (Urine sed) 0-5 SEEN /hpf 5-10 [facility] TSH DL <= 0.005 mIU/L QnOrde red By: Conchita Burns on 05-29-2025 TSH Qn 0.701 uIU/mL 0.300-4.200 [facility] Thyroid Stim Hormone (TSH)on 05-29-2025 TSH 0.701 uIU/mL Normal 0.300-4.200 [facility] Comment on above: Performed By: #### L 500.4100, L509.6002, L501.7300, L501.9520 ####[facility] [address] [place], [place], [id number] Total proteinOrdered By: Amilcar Leyva on 05-29-2025 Protein [Mass/Vol] 6.2 g/dL 5.9-8.4 [facility] Triglycerides measurementOrd ered By: Conchita Burns on 05-29-2025 Triglyceride [Mass/Vol] 96 mg/dL <199 [facility] Comment on above: The drugs N-Acetylcy steine and Metamizole may falsely depress this assay. Normal range: <150 mg/dLBorderline High: 150-199 mg/dLHigh: 200-499 mg/dLVery High: >500 mg/dL Troponin T HS 2 HRon 025 Trop T High Sen 17 ng/L High <=14 [facility] Comment on above: Performed By: #### L 499.0042 ####[facility] [address] [place], [place], [address] Troponin T HS 4 HRon 025 Trop T High Sen 17 ng/L High <=14 [facility] Comment on above: Performed By: #### L 499.0043 ####[facility] [address] [place], [address] Troponin T.cardiac [Mass/vol ume] in Serum or Plasma by High sensitivity methodOrdered By: Del Leyva on 05-29-2025 Troponin T.cardiac High sensitivity method [Mass/Vol] 17 ng/L High <14 [facility] Troponin T.cardiac High sensitivity method [Mass/Vol] 17 ng/L High <14 [facility] Troponin T.cardiac High sensitivity method [Mass/Vol] 20 ng/L High <14 [facility] Urea Nitrogen, Urineon 05-29 URINE UREA 358 mg/dL Normal NO RANGE EST. [facility] Comment on above: Performed By: #### L 502.0715, L501.1200, L500.9400, L501.7400 ####[facility] [address] [place], [address] Urinalysis, Completeon 05-29 EPI,SQUAMOUS 0-5 SEEN Normal 5-10 [facility] Comment on above: Order Comment: CLEAN CATCH Performed By: #### L 400.0001 ####[facility] [address] [place], [address] WBC 0-5 SEEN Normal 0-5 [facility] Comment on above: Order Comment: CLEAN CATCH Performed By: #### L 400.0001 ####[facility] [address] [place], [address] BACTERIA 0 SEEN Normal None Seen [facility] Comment on above: Order Comment: CLEAN CATCH Performed By: #### L 400.0001 ####[facility] [address] [place], [address] Mucus Ql (Urine sed) 0 SEEN Normal [facility] Comment on above: Order Comment: CLEAN CATCH Performed By: #### L 400.0001 ####[facility] [address] [place], [address] RBC 0 SEEN Normal 0-5 [facility] Comment on above: Order Comment: CLEAN CATCH Performed By: #### L 400.0001 ####[facility] [address] [place], [address] Urine Electrolytes- Randomon 05-29-2025 Chloride,URINE 80 mmol/L Normal Not Establ. [facility] Comment on above: Performed By: #### L 502.0715, L501.1200, L500.9400, L501.7400 ####[facility] [address] [place], [address] UR K 36.9 mmol/L Normal Not Establ. [facility] Comment on above: Performed By: #### L 502.0715, L501.1200, L500.9400, L501.7400 ####[facility] [address] [place], [address] Urine clarityOrdered By: Amilcar Leyva on 05-29-2025 Clarity (U) Sl. Cloudy Clear [facility] Urine color determinationOrd ered By: Del Leyva on 05-29-2025 Color (U) Yellow Yellow [facility] Urine glucose detectionOrder ed By: Del Leyva on 05-29-2025 Glucose Ql (U) Normal mg/dl Normal [facility] Urine leukocyte esterase det ection by dipstickOrdered By: Del Leyva on 05-29-2025 Leukocyte esterase Test strip Ql (U) 500 /ul High Negative [facility] Urine pHOrdered By: Del lima on 05-29-2025 pH (U) 7.0 [pH] 5.0 - 8.0 [facility] Urine potassium measurement (moles/volume)Ordered By: Conchita Burns on 05-29-2025 Potassium (U) [Moles/Vol] 36.9 mmol/L Not Establ. [facility] Urine sediment bacteria coun t by microscopy (number/high power field)Ordered By: Del Leyva on 05-29-2025 Bacteria LM.HPF (Urine sed) [#/Area] 0 /[HPF] None Seen [facility] Urine sodium measurement (mo les/volume)Ordered By: Conchita Burns on 05-29-2025 Sodium (U) [Moles/Vol] 84 mmol/L Normal Not Establ. [facility] Comment on above: Performed By: #### L 502.0715, L501.1200, L500.9400, L501.7400 ####[facility] [address] [place], [address] Urine specific gravity measu rementOrdered By: Del Leyva on 05-29-2025 Specific gravity (U) [Rel density] 1.010 1.002-1.030 [facility] Urine urobilinogen measureme ntOrdered By: Del Leyva on 05-29-2025 Urobilinogen Ql (U) Normal mg/dl Normal [facility] White blood cell (WBC) count Ordered By: Del Leyva on 05-29-2025 WBC (Bld) [#/Vol] 8.6 10*3/uL 4.4-11.0 [facility] White blood cell countOrdere d By: Del Leyva on 05-29-2025 White blood cell count 0-5 SEEN /hpf 0-5 [facility] CNPNon 04-22-2025 [facility] ALVARADO COHEN ([id number]) 1945 F Date Time Provider Department 04/22/25 [facility] During your visit today, we recorded the following information about you: Tiffanie Ruff MA 04/22/2025 8:56 AM Signed Type of letter/form/fax request - Medical Consultation Form Form received from fax on 1 floor and placed on MD desk (Dr. Luque) for completion. Completed form needs to be faxed to Dr. Irvin Gallo DMD, MD at [phone] [facility]. Route to [place] when form completed for processing Glenny Luque [...] Irvin Gallo DMD, MD at fax # [phone] [facility]. Shavonne Lopez RN Allergies As of Date: 04/22/2025 Noted Allergy Reaction CODEINE 09/10/2005 SPIRONOLACTONE 07/08/2019 14 - Other: See Comments Comments: lightheadedness SULFA (SULFONAMIDE ANTIBIOTICS) 09/10/2005 Date Reviewed: 03/22/2025 Reviewed by: Leeanne Sterling MA - Fully Assessed Reason for Visit: medical consultation form [Other] Cmt: [facility] Prescriptions as of 04/28/2025 - [...] and stay upright for 30 min. - me-yai-eulcc-calcium carb-K1 (WOMEN'S 50 PLUS MULTIVITAMIN) 400 mcg-500 [...] Status:Closed by SHAVONNE LOPEZ on 04/28/25 Normal [facility] Basic metabolic 2000 panelon 04-01-2025 Anion gap [Moles/Vol] 13 mmol/L Normal 8-15 [facility] Comment on above: Order Comment: Speci men Type: BLOOD SPECIMENOrdering Facility: [facility] Address: [facility] [place] [address] Performed By: #### 2 4321-2 ####[facility] LABCLIA [id number] [address] [address] [place] Calcium [Mass/Vol] 9.6 mg/dL Normal 8.5-10.2 [facility] Comment on above: Order Comment: Speci men Type: BLOOD SPECIMENOrdering Facility: [facility] Address: [facility] [place] [address] Performed By: #### 2 4321-2 ####[facility] LABCLIA [id number] [address] [address] [place] Chloride [Moles/Vol] 96 mmol/L Low 98-107 [facility] Comment on above: Order Comment: Speci men Type: BLOOD SPECIMENOrdering Facility: [facility] Address: [facility] [place] [address] Performed By: #### 2 4321-2 ####[facility] LABCLIA [id number] [address] [address] [place] CO2 [Moles/Vol] 22 mmol/L Normal 22-30 [facility] Comment on above: Order Comment: Speci mariajose Type: BLOOD SPECIMENOrdering Facility: [facility] Address: [address] [place] [address] Performed By: #### 2 4321-2 ####[facility] LABCLIA [id number] [address] [place] [address] [place] Creatinine [Mass/Vol] 1.03 mg/dL High 0.58-0.96 [facility] Comment on above: Order Comment: Speci men Type: BLOOD SPECIMENOrdering Facility: [facility] Address: [address] [place] [address] Performed By: #### 2 4321-2 ####[facility] LABIA [id number] [address] [address] [place] Creatinine and Glomerular filtration rate.predicted panel (S/P/Bld) 56 mL/min/1.73m??? Low >=60 [facility] Comment on above: Order Comment: Jorgei men Type: BLOOD SPECIMENOrdering Facility: [facility] Address: [address] [place] [address] Result Comment: Madisyn mated Glomerular Filtration Rate [...] actual GFR. Performed By: #### 2 4321-2 ####[facility] LABIA [id number] [address] [place] [address] [place] Glucose [Mass/Vol] 72 mg/dL Low 74-99 [facility] Comment on above: Order Comment: Alex billy Type: BLOOD SPECIMENOrdering Facility: [facility] Address: [address] [place] [address] Result Comment: The [place] Diabetes Association (ADA) provides guidance for cutoff [...] Medical Care in Diabetes 2016, [place] Diabetes Association. Diabetes Care. 2016.39(Suppl 1). Performed By: #### 2 4321-2 ####[facility] LABCLIA [id number] [place] [id number] [place] Potassium [Moles/Vol] 4.5 mmol/L Normal 3.7-5.1 [facility] Comment on above: Order Comment: Alex billy Type: BLOOD SPECIMENOrdering Facility: [facility] Address: [address] [place], [place] [address] [address] Performed By: #### 2 4321-2 ####[facility] LABIA [id number] [place] [id number] [place] Sodium [Moles/Vol] 131 mmol/L Low 136-144 [facility] Comment on above: Order Comment: Alex billy Type: BLOOD SPECIMENOrdering Facility: [facility] Address: [facility] [place] [address] Performed By: #### 2 4321-2 ####[facility] LABCLIA [id number] [place] [id number] [place] Urea nitrogen [Mass/Vol] 27 mg/dL High 7-21 [facility] Comment on above: Order Comment: Alex billy Type: BLOOD SPECIMENOrdering Facility: [facility] [facility] Address: [facility] [place] [id number] Performed By: #### 2 4321-2 ####[facility] LABCLIA [id number] [address] [address] [facility] CNOVon 03-22-2025 CNOV Office Visit (FAMPWS ) ALVARADO COHEN ([id number]) 1945 F Date Time Provider Department 03/22/25 3:20 PM [facility] During your visit today, we recorded [...] tablet by mouth three times a day. jm-bbu-oxxik-calcium carb-K1 (WOMEN'S 50 PLUS MULTIVITAMIN) 400 mcg-500 [...] C Screening (more content not included)... Normal [facility] Basic metabolic 2000 panelon 02-22-2025 Anion gap [Moles/Vol] 10 mmol/L Normal 8-15 [facility] Comment on above: Order Comment: Speci men Type: BLOOD SPECIMENOrdering Facility: [facility] Address: [address] [place], [place] [address] [address] Performed By: #### 2 4321-2 ####[facility] LABCLIA [id number] [address] [address] [place] Calcium [Mass/Vol] 9.3 mg/dL Normal 8.5-10.2 [facility] Comment on above: Order Comment: Speci men Type: BLOOD SPECIMENOrdering Facility: [facility] Address: [address] [place], [place] [address] [address] Performed By: #### 2 4321-2 ####[facility] LABCLIA [id number] [address] [address] [place] Chloride [Moles/Vol] 95 mmol/L Low 98-107 [facility] Comment on above: Order Comment: Alex billy Type: BLOOD SPECIMENOrdering Facility: [facility] Address: [address] [place] [address] Performed By: #### 2 4321-2 ####[facility] LABCLIA [id number] [place] [address] [place] CO2 [Moles/Vol] 24 mmol/L Normal 22-30 [facility] Comment on above: Order Comment: Alex men Type: BLOOD SPECIMENOrdering Facility: [facility] Address: [address] [place] [address] Performed By: #### 2 4321-2 ####[facility] LABIA [id number] [place] [address] [facility] Creatinine [Mass/Vol] 0.98 mg/dL High 0.58-0.96 [facility] Comment on above: Order Comment: Alex billy Type: BLOOD SPECIMENOrdering Facility: [facility] Address: [address] [place] [address] Performed By: #### 2 4321-2 ####[facility] LABIA [id number] [place] [address] [facility] Creatinine and Glomerular filtration rate.predicted panel (S/P/Bld) 59 mL/min/1.73m??? Low >=60 [facility] Comment on above: Order Comment: Alex billy Type: BLOOD SPECIMENOrdering Facility: [facility] Address: [address] [place] [address] Result Comment: Madisyn mated Glomerular Filtration Rate [...] actual GFR. Performed By: #### 2 4321-2 ####[facility] LABCLIA [id number] [address] [address] [place] Glucose [Mass/Vol] 88 mg/dL Normal 74-99 [facility] Comment on above: Order Comment: Speci men Type: BLOOD SPECIMENOrdering Facility: [facility] Address: [address] [place], [place] [address] [address] Result Comment: The [place] Diabetes Association (ADA) provides guidance for cutoff [...] Medical Care in Diabetes 2016, [place] Diabetes Association. Diabetes Care. 2016.39(Suppl 1). Performed By: #### 2 4321-2 ####[facility] LABCLIA [id number] [place] [address] [place] Potassium [Moles/Vol] 4.2 mmol/L Normal 3.7-5.1 [facility] Comment on above: Order Comment: Speci men Type: BLOOD SPECIMENOrdering Facility: [facility] Address: [address] [place] [address] Performed By: #### 2 432-2 ####[facility] LABCLIA [id number] [address] [address] [place] Sodium [Moles/Vol] 129 mmol/L Low 136-144 [facility] Comment on above: Order Comment: Jorgei men Type: BLOOD SPECIMENOrdering Facility: [facility] Address: [address] [place] [address] Performed By: #### 2 4321-2 ####[facility] LABCLIA [id number] [address] [address] [place] Urea nitrogen [Mass/Vol] 23 mg/dL High 7-21 [facility] Comment on above: Order Comment: Speci men Type: BLOOD SPECIMENOrdering Facility: [facility] Address: [facility] [place] [address] Performed By: #### 2 4321-2 ####[facility] LABCLIA [id number] [address] [address] [place] BD DXA - AXIAL SKELETONon BD DXA - AXIAL SKELETON * * *Final Repor t* * * DATE OF EXAM: Jan 01 2025 12:46PM HENRIQUE 0804 - BD DXA - AXIAL SKELETON / PROCEDURE REASON: Age-related osteoporosis without current pathological fracture * * * * Physician Interpretation * * * * EXAMINATION: DXA BONE DENSITOMETRY BD DXA - AXIAL SKELETON, BD DXA TRABECLR BONE SCORE (TBS) PATIENT DEMOGRAPHICS: Age: 79 years, Gender: Female SCANNER INFORMATION: DXA Model: [employer] C 22212 Date Scanned: 01/01/2025 12:46 PM CLINICAL HISTORY: [...] FOR MORE INFORMATION ABOUT DIAGNOSIS AND TREATMENT: [facility] Center for Osteoporosis and Metabolic Bone Disease:? www.ccf.org/arthritis /osteo National Osteoporosis Foundation:? www.nof.org International Society of Clinical Densitometry www.iscd.org Table Assembler: ALEX Transcribe Date/Time: Jan 04 2025 11:04A Dictated by : MILO GONZALEZ MD This examination was interpreted and the report reviewed and electronically signed by: MILO GONZALEZ MD on Jan 04 2025 11:06AM EST [id number] N -3.0 Normal [facility] BD DXA TRABECLR BONE SCORE ( TBS)on 01-01-2025 BD DXA TRABECLR BONE SCORE (TBS) * * *Final Report* * * DATE OF EXAM: Jan 01 2025 12:46PM HENRIQUE Mcadams - BD DXA TRABECLR BONE SCORE (TBS) / PROCEDURE REASON: Age-related osteoporosis without current pathological fracture * * * * Physician Interpretation * * * * EXAMINATION: DXA BONE DENSITOMETRY BD DXA - AXIAL SKELETON, BD DXA TRABECLR BONE SCORE (TBS) PATIENT DEMOGRAPHICS: Age: 79 years, Gender: Female SCANNER INFORMATION: DXA Model: web care [employer] C 08448 Date Scanned: 01/01/2025 12:46 PM CLINICAL HISTORY: [...] FOR MORE INFORMATION ABOUT DIAGNOSIS AND TREATMENT: [facility] Center for Osteoporosis and Metabolic Bone Disease:? www.ccf.org/arthritis /osteo National Osteoporosis Foundation:? www.nof.org International Society of Clinical Densitometry www.iscd.org Table Assembler: ALEX Transcribe Date/Time: Jan 04 2025 11:04A Dictated by : MILO GONZALEZ MD This examination was interpreted and the report reviewed and electronically signed by: MILO GONZALEZ MD on Jan 04 2025 11:06AM EST [id number] N -3.0 Normal [facility] CBC W Auto Differential pane l (Bld)on 12-09-2024 Basophils (Bld) [#/Vol] 0.08 10*3/uL Normal <0.11 [facility] Comment on above: Order Comment: Speci men Type: BLOOD SPECIMENOrdering Facility: [facility] Address: [address] [place] [address] Performed By: #### 5 7021-8 ####[facility] LABCLIA [id number] [address] [place] Basophils/100 WBC (Bld) 0.9 % Normal C [facility] Comment on above: Order Comment: Speci men Type: BLOOD SPECIMENOrdering Facility: [facility] Address: [address] [place] [address] Performed By: #### 5 7021-8 ####[facility] LABCLIA [id number] [place] [address] [place] Differential cell count method Nom (Bld) Auto Normal [facility] Comment on above: Order Comment: Speci men Type: BLOOD SPECIMENOrdering Facility: [facility] Address: [address] [place] [address] Performed By: #### 5 7021-8 ####[facility] LABCLIA [id number] [place] [address] [place] Eosinophils (Bld) [#/Vol] 0.25 10*3/uL Normal <0.46 [facility] Comment on above: Order Comment: Speci men Type: BLOOD SPECIMENOrdering Facility: [facility] Address: [address] [place] [address] Performed By: #### 5 7021-8 ####[facility] LABCLIA [id number] [address] [place] Eosinophils/100 WBC (Bld) 2.8 % Normal [facility] Comment on above: Order Comment: Speci men Type: BLOOD SPECIMENOrdering Facility: [facility] Address: [address] [place] [address] Performed By: #### 5 7021-8 ####[facility] LABCLIA [id number] [place] [address] [place] Erythrocyte distribution width (RBC) [Ratio] 14.6 % Normal 11.5-15.0 [facility] Comment on above: Order Comment: Speci men Type: BLOOD SPECIMENOrdering Facility: [facility] Address: [address] [place] [address] Performed By: #### 5 7021-8 ####[facility] LABCLIA [id number] [place] [address] [place] Hematocrit (Bld) [Volume fraction] 36.5 % Normal 36.0-46.0 [facility] Comment on above: Order Comment: Speci men Type: BLOOD SPECIMENOrdering Facility: [facility] Address: [address] [place] [address] Performed By: #### 5 7021-8 ####[facility] LABCLIA [id number] [place] [address] [place] Hemoglobin (Bld) [Mass/Vol] 11.9 g/dL Normal 11.5-15.5 [facility] Comment on above: Order Comment: Speci men Type: BLOOD SPECIMENOrdering Facility: [facility] Address: [address] [place] [address] Performed By: #### 5 7021-8 ####[facility] LABIA [id number] [place] [address] [place] Immature granulocytes (Bld) [#/Vol] 10*3/uL Normal <0.10 [facility] Comment on above: Order Comment: Speci men Type: BLOOD SPECIMENOrdering Facility: [facility] Address: [address] [place] [address] Performed By: #### 5 7021-8 ####[facility] LABCLIA [id number] [place] [address] [place] Immature granulocytes/100 WBC (Bld) 0.2 % Normal [facility] Comment on above: Order Comment: Speci men Type: BLOOD SPECIMENOrdering Facility: [facility] Address: [address] [place] [address] Performed By: #### 5 7021-8 ####[facility] LABCLIA [id number] [place] [address] [place] Lymphocytes (Bld) [#/Vol] 1.66 10*3/uL Normal 1.00-4.00 [facility] Comment on above: Order Comment: Speci men Type: BLOOD SPECIMENOrdering Facility: [facility] Address: [address] [place] [address] Performed By: #### 5 7021-8 ####[facility] LABCLIA [id number] [place] [address] [place] Lymphocytes/100 WBC (Bld) 18.6 % Normal [facility] Comment on above: Order Comment: Speci men Type: BLOOD SPECIMENOrdering Facility: [facility] Address: [address] [place] [address] Performed By: #### 5 7021-8 ####[facility] LABIA [id number] [place] [address] [place] MCH (RBC) [Entitic mass] 29.0 pg Normal 26.0-34.0 [facility] Comment on above: Order Comment: Speci men Type: BLOOD SPECIMENOrdering Facility: [facility] Address: [address] [place] [address] Performed By: #### 5 7021-8 ####[facility] LABIA [id number] [place] [address] [place] MCHC (RBC) [Mass/Vol] 32.6 g/dL Normal 30.5-36.0 [facility] Comment on above: Order Comment: Speci men Type: BLOOD SPECIMENOrdering Facility: [facility] Address: [address] [place] [address] Performed By: #### 5 7021-8 ####[facility] LABIA [id number] [place] [address] [place] MCV (RBC) [Entitic vol] 88.8 fL Normal 80.0-100.0 C [facility] Comment on above: Order Comment: Speci men Type: BLOOD SPECIMENOrdering Facility: [facility] Address: [address] [place] [address] Performed By: #### 5 7021-8 ####[facility] LABCLIA [id number] [place] [address] [place] Monocytes (Bld) [#/Vol] 0.85 10*3/uL Normal <0.87 [facility] Comment on above: Order Comment: Speci men Type: BLOOD SPECIMENOrdering Facility: [facility] Address: [address] [place] [address] Performed By: #### 5 7021-8 ####[facility] LABCLIA [id number] [place] [address] [place] Monocytes/100 WBC (Bld) 9.5 % Normal [facility] Comment on above: Order Comment: Speci men Type: BLOOD SPECIMENOrdering Facility: [facility] Address: [address] [place] [address] Performed By: #### 5 7021-8 ####[facility] LABCLIA [id number] [place] [address] [place] Neutrophils (Bld) [#/Vol] 6.06 10*3/uL Normal 1.45-7.50 [facility] Comment on above: Order Comment: Speci men Type: BLOOD SPECIMENOrdering Facility: [facility] Address: [address] [place] [address] Performed By: #### 5 7021-8 ####[facility] LABCLIA [id number] [place] [address] [place] Neutrophils/100 WBC (Bld) 68.0 % Normal [facility] Comment on above: Order Comment: Speci men Type: BLOOD SPECIMENOrdering Facility: [facility] Address: [address] [place] [address] Performed By: #### 5 7021-8 ####[facility] LABCLIA [id number] [place] [id number] [address] [place] Nucleated RBC (Bld) [#/Vol] 10*3/uL Normal <0.01 [facility] Comment on above: Order Comment: Speci men Type: BLOOD SPECIMENOrdering Facility: [facility] Address: [address] [place] [address] Performed By: #### 5 7021-8 ####[facility] LABCLIA [id number] [place] [address] [place] Nucleated RBC/100 WBC (Bld) [Ratio] 0.0 /100 WBC Normal [facility] Comment on above: Order Comment: Speci men Type: BLOOD SPECIMENOrdering Facility: [facility] Address: [address] [place] [address] Performed By: #### 5 7021-8 ####[facility] LABCLIA [id number] [place] [address] [place] Platelet mean volume (Bld) [Entitic vol] 9.9 fL Normal 9.0-12.7 [facility] Comment on above: Order Comment: Speci men Type: BLOOD SPECIMENOrdering Facility: [facility] Address: [address] [place] [address] Performed By: #### 5 7021-8 ####[facility] LABIA [id number] [place] [address] [place] Platelets (Bld) [#/Vol] 345 10*3/uL Normal 150-400 [facility] Comment on above: Order Comment: Speci men Type: BLOOD SPECIMENOrdering Facility: [facility] Address: [address] [place] [address] Performed By: #### 5 7021-8 ####[facility] LABCLIA [id number] [place] [address] [place] RBC (Bld) [#/Vol] 4.11 10*6/uL Normal 3.90-5.[address] [facility] Comment on above: Order Comment: Speci men Type: BLOOD SPECIMENOrdering Facility: [facility] Address: [address] [place], [place] [address] Performed By: #### 5 7021-8 ####[facility] LABCLIA [id number] [address] [address] [place] WBC (Bld) [#/Vol] 8.92 10*3/uL Normal 3.70-11.[address] [facility] Comment on above: Order Comment: Speci men Type: BLOOD SPECIMENOrdering Facility: [facility] Address: [address] [place] [address] Performed By: #### 5 7021-8 ####[facility] LABIA [id number] [place] [address] [place] Comprehensive metabolic 2000 panelon 12-09-2024 Albumin [Mass/Vol] 4.4 g/dL Normal 3.9-4.9 [facility] Comment on above: Order Comment: Speci men Type: BLOOD SPECIMENOrdering Facility: [facility] Address: [address] [place] [address] Performed By: #### 2 4323-8, 22901-4 ####[facility] LABIA [id number] [place] [address] [place] ALP [Catalytic activity/Vol] 90 U/L Normal 34-123 [facility] Comment on above: Order Comment: Speci men Type: BLOOD SPECIMENOrdering Facility: [facility] Address: [address] [place] [address] Performed By: #### 2 4323-8, 38644-5 ####[facility] LABCLIA [id number] [place] [id number] [place] ALT [Catalytic activity/Vol] 21 U/L Normal 7-38 [facility] Comment on above: Order Comment: Speci men Type: BLOOD SPECIMENOrdering Facility: [facility] Address: [address] [place] [address] Performed By: #### 2 4323-8, 00705-9 ####[facility] LABCLIA [id number] [facility] [address] [place] Anion gap [Moles/Vol] 11 mmol/L Normal 8-15 [facility] Comment on above: Order Comment: Speci men Type: BLOOD SPECIMENOrdering Facility: [facility] Address: [address] [place] [address] Performed By: #### 2 4323-8, 66049-4 ####[facility] LABCLIA [id number] [place] [address] [place] AST [Catalytic activity/Vol] 18 U/L Normal 13-35 [facility] Comment on above: Order Comment: Speci men Type: BLOOD SPECIMENOrdering Facility: [facility] Address: [address] [place] [address] Performed By: #### 2 4323-8, 30142-5 ####[facility] LABCLIA [id number] [place] [address] [place] Bilirubin [Mass/Vol] 0.3 mg/dL Normal 0.2-1.3 [facility] Comment on above: Order Comment: Speci men Type: BLOOD SPECIMENOrdering Facility: [facility] Address: [address] [place] [address] Performed By: #### 2 4323-8, 12133-3 ####[facility] LABCLIA [id number] [facility] [place] [id number] [place] Calcium [Mass/Vol] 9.5 mg/dL Normal 8.5-10.2 [facility] Comment on above: Order Comment: Speci men Type: BLOOD SPECIMENOrdering Facility: [facility] Address: [address] [place], [place] [address] Performed By: #### 2 4323-8, 25789-3 ####[facility] LABCLIA [id number] [place] [address] [place] Chloride [Moles/Vol] 95 mmol/L Low 98-107 [facility] Comment on above: Order Comment: Speci men Type: BLOOD SPECIMENOrdering Facility: [facility] Address: [address] [place] [address] Performed By: #### 2 4323-8, 15737-0 ####[facility] LABIA [id number] [place] [address] [place] CO2 [Moles/Vol] 23 mmol/L Normal 22-30 [facility] Comment on above: Order Comment: Speci men Type: BLOOD SPECIMENOrdering Facility: [facility] Address: [address] [place] [address] Performed By: #### 2 4323-8, 63817-3 ####[facility] LABIA [id number] [place] [address] [place] Creatinine [Mass/Vol] 1.11 mg/dL High 0.58-0.96 [facility] Comment on above: Order Comment: Speci men Type: BLOOD SPECIMENOrdering Facility: [facility] Address: [address] [place] [address] Performed By: #### 2 4323-8, 23095-0 ####[facility] [id number] [address] [place] [facility] Creatinine and Glomerular filtration rate.predicted panel (S/P/Bld) 51 mL/min/1.73m??? Low >=60 [facility] Comment on above: Order Comment: Speci men Type: BLOOD SPECIMENOrdering Facility: [facility] Address: [address] [place] [address] Result Comment: Madisyn mated Glomerular Filtration Rate [...] actual GFR. Performed By: #### 2 4323-8, 44210-7 ####[facility] LABIA [id number] [place] [address] [place] Glucose [Mass/Vol] 89 mg/dL Normal 74-99 [facility] Comment on above: Order Comment: Speci men Type: BLOOD SPECIMENOrdering Facility: [facility] Address: [address] [place] [address] Result Comment: The [place] Diabetes Association (ADA) provides guidance for cutoff [...] Medical Care in Diabetes 2016, [place] Diabetes Association. Diabetes Care. 2016.39(Suppl 1). Performed By: #### 2 4323-8, 34043-0 ####[facility] LABIA [id number] [place] [address] [place] Potassium [Moles/Vol] 4.6 mmol/L Normal 3.7-5.1 [facility] Comment on above: Order Comment: Speci men Type: BLOOD SPECIMENOrdering Facility: [facility] Address: [address] [place] [address] Performed By: #### 2 4323-8, 41729-7 ####[facility] LABIA [id number] [place] [address] [place] Protein [Mass/Vol] 7.2 g/dL Normal 6.3-8.0 [facility] Comment on above: Order Comment: Speci men Type: BLOOD SPECIMENOrdering Facility: [facility] Address: [address] [place] [address] Performed By: #### 2 4323-8, 96655-9 ####[facility] LABCLIA [id number] [place] [address] [place] Sodium [Moles/Vol] 129 mmol/L Low 136-144 [facility] Comment on above: Order Comment: Speci men Type: BLOOD SPECIMENOrdering Facility: [facility] Address: [address] [place] [address] Performed By: #### 2 4323-8, 52971-7 ####[facility] LABCLIA [id number] [place] [address] [place] Urea nitrogen [Mass/Vol] 25 mg/dL High 7-21 [facility] Comment on above: Order Comment: Speci men Type: BLOOD SPECIMENOrdering Facility: [facility] Address: [address] [place] [address] Performed By: #### 2 4323-8, 66896-4 ####[facility] LABCLIA [id number] [place] [address] [place] Lipid 1996 panelon 5 Cholesterol [Mass/Vol] 192 mg/dL Normal <200 [facility] Comment on above: Order Comment: Speci men Type: BLOOD SPECIMENOrdering Facility: [facility] Address: [address] [place] [address] Result Comment: <200 mg/dL, Desirable 200-239 mg/dL, Borderline high >239 mg/dL, High Performed By: #### 2 4323-8, 19027-2 ####[facility] LABIA [id number] [place] [address] [place] Cholesterol in HDL [Mass/Vol] 83 mg/dL Normal >39 [facility] Comment on above: Order Comment: Speci men Type: BLOOD SPECIMENOrdering Facility: [facility] Address: [address] [place] [address] Result Comment: 40-5 9 mg/dL, Acceptable >59 mg/dL, High: Negative risk factor for coronary heart disease <40 mg/dL, Low: Positive risk factor for coronary heart disease Performed By: #### 2 4323-8, 54689-9 ####[facility] LABCLIA [id number] [place] [address] [place] Cholesterol in LDL [Mass/Vol] 93 mg/dL Normal <100 [facility] Comment on above: Order Comment: Speci men Type: BLOOD SPECIMENOrdering Facility: [facility] Address: [address] [place] [address] Result Comment: <100 mg/dL, Optimal 100-129 mg/dL, Near optimal/above optimal 130-159 mg/dL, Borderline high 160-189 mg/dL, High >189 mg/dL, Very high Secondary prevention optimal LDL Cholesterol levels are recommended to be < 70 mg/dL Performed By: #### 2 4323-8, ####[facility] LABCLIA [id number] [place] [address] [place] Cholesterol in LDL/Cholesterol in HDL [Mass ratio] 1.12 {ratio} Normal <2.54 [facility] Comment on above: Order Comment: Speci men Type: BLOOD SPECIMENOrdering Facility: [facility] Address: [address] [place] [address] Result Comment: Refe rence: 1. National Cholesterol Education Program ATP III Guideline At-A-Glance Quick Desk Reference: National Heart, Lung, and Blood [place]. National Institutes of Health. 2001: NIH Publication No. 01-3305. 2. An International Atherosclerosis Society position paper: global recommendations for the management of dyslipidemia: executive summary, Atherosclerosis. 2014: 232(2):410-413. Performed By: #### 2 4323-8, 18083-1 ####[facility] LABCLIA [id number] [place] [address] [place] Cholesterol in VLDL [Mass/Vol] 16 mg/dL Normal <30 [facility] Comment on above: Order Comment: Speci men Type: BLOOD SPECIMENOrdering Facility: [facility] Address: [address] [place] [address] Performed By: #### 2 4323-8, 98645-0 ####[facility] LABCLIA [id number] [place] [id number] [place] Cholesterol non HDL [Mass/Vol] 109 mg/dL Normal <130 [facility] Comment on above: Order Comment: Speci men Type: BLOOD SPECIMENOrdering Facility: [facility] Address: [address] [place] [address] Result Comment: <130 mg/dL, Optimal 130-159 mg/dL, Near optimal/above optimal 160-189 mg/dL, Borderline high 190-219 mg/dL, High >219 mg/dL, Very high Secondary prevention optimal non HDL Cholesterol levels are recommended to be <100 mg/dL Performed By: #### 2 4323-8, 35435-5 ####[facility] LABCLIA [id number] [place] [address] [place] Cholesterol.total/Mandi sterol in HDL [Mass ratio] 2.31 {ratio} Normal <5.10 [facility] Comment on above: Order Comment: Speci men Type: BLOOD SPECIMENOrdering Facility: [facility] Address: [address] [place] [address] Performed By: #### 2 4323-8, 26194-9 ####[facility] LABCLIA [id number] [place] [address] [place] FASTING TIME 12 hrs Normal [facility] Comment on above: Order Comment: Speci men Type: BLOOD SPECIMENOrdering Facility: [facility] Address: [address] [place] [address] Performed By: #### 2 4323-8, 99409-9 ####[facility] LABCLIA [id number] [place] [address] [place] Triglyceride [Mass/Vol] 79 mg/dL Normal <150 [facility] Comment on above: Order Comment: Speci men Type: BLOOD SPECIMENOrdering Facility: [facility] Address: [address] [place] [address] Result Comment: <150 mg/dL, Normal 150-199 mg/dL, Borderline high 200-499 mg/dL, High >499 mg/dL, Very high Performed By: #### 2 4323-8, 32115-8 ####[facility] LABCLIA [id number] [place] MCLEANDESK [id number] [place] CNOVon 11-26-2024 CNOV Office Visit (FAMPWS ) ALVARADO COHEN ([id number]) 1945 F Date Time Provider Department 11/26/24 1:20 PM [facility] During your visit today, we recorded [...] PCP - General (Family Medicine) Laurel Toure APRN.MEDICAL POLICY SPECIALIST as Real Estate Leasing Manager (Family Medicine) Hans Mccray APRN.NIKKI as Real Estate Leasing Manager (Family Medicine) Porfirio Mei MD - Vascular Nora Govea DO - Nephrology Dr. Sifuentes - Ophthalmology Dr. Christensen - Dentistry Medical/Family history review Reviewed and updated problem list, medical/surgical/fami ly/social history, medications, and allergies. Opioid use review [...] 22.18 k (more content not included)... Normal [facility] MR/BMS.BVSon 10-21-2024 MR/BMS.BVS Normal [facility] ACT Activated Clotting Timeo n 10-07-2024 ACTk CLOT TIME 204 sec High 74-137 [facility] Comment on above: Performed By: #### L 9100.0100 ####[facility] [address] [place], [address] Basic Metabolic Profile (BMP )on 10-07-2024 BUN/CRE 23.9 RATIO High 10-20 [facility] Comment on above: Performed By: #### B TSPAT, L500.2500, L100.0500 ####[facility] [address] [place], [address] CA,Total 9.3 mg/dL Normal 8.5-10.1 [facility] Comment on above: Performed By: #### B TSPAT, L500.2500, L100.0500 ####[facility] [address] [place], [address] Chloride [Moles/Vol] 106 mmol/L Normal 98-107 [facility] Comment on above: Performed By: #### B TSPAT, L500.2500, L100.0500 ####[facility] [address] [place], [address] CO2 [Moles/Vol] 25.0 mmol/L Normal 21.0-32.0 [facility] Comment on above: Performed By: #### B TSPAT, L500.2500, L100.0500 ####[facility] [address] [place], [address] Creatinine [Mass/Vol] 1.13 mg/dL High 0.55-1.02 [facility] Comment on above: Result Comment: The validity of the calculated GFR GFRAA in patients over70 years has not been determined. Clinical correlation isessential. Performed By: #### B TSPAT, L500.2500, L100.0500 ####[facility] [address] [place], [address] ECRCL 33.94 ml/min Normal [facility] Comment on above: Performed By: #### B TSPAT, L500.2500, L100.0500 ####[facility] [address] [place], [address] EST GFR - AA 60 mL/min Normal >60 [facility] Comment on above: Result Comment: Afri can Citizen Of [place] GFR Calc Performed By: #### B TSPAT, L500.2500, L100.0500 ####[facility] [address] [place], [address] GAP 5 Normal 5-15 [facility] Comment on above: Performed By: #### B TSPAT, L500.2500, L100.0500 ####[facility] [address] [place], [address] GFR/1.73 sq M.predicted among non-blacks MDRD (S/P/Bld) [Vol rate/Area] 50 mL/min/{1.73_m2} Low >60 [facility] Comment on above: Result Comment: Non- GFR Calc Performed By: #### B TSPAT, L500.2500, L100.0500 ####[facility] [address] [place], [address] Glucose [Mass/Vol] 104 mg/dL Normal 74-106 [facility] Comment on above: Result Comment: Fast ing Glucose result from 100 to 125 mg/dLsuggests IMPAIRED HOMEOSTASIS per A.D.A. criteria. Performed By: #### B TSPAT, L500.2500, L100.0500 ####[facility] [address] [place], [address] Potassium [Moles/Vol] 4.2 mmol/L Normal 3.5-5.1 [facility] Comment on above: Performed By: #### B TSPAT, L500.2500, L100.0500 ####[facility] [address] [place], [address] Sodium [Moles/Vol] 136 mmol/L Normal 136-145 [facility] Comment on above: Performed By: #### B TSPAT, L500.2500, L100.0500 ####[facility] [address] [place], [address] Urea nitrogen [Mass/Vol] 27 mg/dL High 7-18 [facility] Comment on above: Performed By: #### B TSPAT, L500.2500, L100.0500 ####[facility] [address] [place], [address] CBC-Complete Blood Cnt No Di ffon 10-07-2024 Erythrocyte distribution width (RBC) [Ratio] 14.5 % Normal 11.6-14.6 [facility] Comment on above: Performed By: #### B TSPAT, L500.2500, L100.0500 ####[facility] [address] [place], [address] Hematocrit (Bld) [Volume fraction] 35.6 % Low 37-47 [facility] Comment on above: Performed By: #### B TSPAT, L500.2500, L100.0500 ####[facility] [address] [place], [address] Hemoglobin (Bld) [Mass/Vol] 11.8 g/dL Low 12.0-15.0 [facility] Comment on above: Performed By: #### B TSPAT, L500.2500, L100.0500 ####[facility] [address] [place], [address] MCH (RBC) [Entitic mass] 29.7 pg Normal 27.0-32.0 [facility] Comment on above: Performed By: #### B TSPAT, L500.2500, L100.0500 ####[facility] [address] [place], [address] MCHC (RBC) [Mass/Vol] 33.1 g/dL Normal 32-36 [facility] Comment on above: Performed By: #### B TSPAT, L500.2500, L100.0500 ####[facility] [address] [place], [address] MCV (RBC) [Entitic vol] 89.7 fL Normal 81-99 [facility] Comment on above: Performed By: #### B TSPAT, L500.2500, L100.0500 ####[facility] [address] [place], [address] Platelet mean volume (Bld) [Entitic vol] 9.0 fL Normal 6.2-12.0 [facility] Comment on above: Performed By: #### B TSPAT, L500.2500, L100.0500 ####[facility] [address] [place], [address] Platelets (Bld) [#/Vol] 273 10*3/uL Normal 150-450 [facility] Comment on above: Performed By: #### B TSPAT, L500.2500, L100.0500 ####[facility] [address] [place], [address] RBC (Bld) [#/Vol] 3.97 10*6/uL Low 4.2-5.4 [facility] Comment on above: Performed By: #### B TSPAT, L500.2500, L100.0500 ####[facility] [address] [place], [address] RDW SD 47.9 fl High 35.1-43.9 [facility] Comment on above: Performed By: #### B TSPAT, L500.2500, L100.0500 ####[facility] [address] [place], [address] WBC (Bld) [#/Vol] 11.5 10*3/uL High 4.4-11.0 [facility] Comment on above: Performed By: #### B TSPAT, L500.2500, L100.0500 ####[facility] [address] [place], [address] Operative Reporton Operative Report Normal [facility] Type AND Screen - PAT ONLYon 10-07-2024 ABO and Rh group Nom (Bld) Blood group A Rh(D) positive Normal [facility] Comment on above: Order Comment: NSAORTAGRAM Performed By: #### B TSPAT, L500.2500, L100.0500 ####[facility] [address] [place], [address] [facility] SCREENINGon 09-25-2024 [facility] SCREENING * * *Final Report* * * DATE OF EXAM: Sep 25 2024 1:07PM [id number] - [facility] SCREENING / PROCEDURE REASON: Visit for screening mammogram * * * * Physician Interpretation * * * * RESULT: [facility] [address] [place] [address] #[id number] - [facility] SCREENING HISTORY: Patient is 79 [...] Umu Cade M.D. Electronically signed on: 09/28/2024 Table Assembler: MIHIR Transcribe Date/Time: Sep 25 2024 12:52P Dictated by: UMU CADE MD This examination was interpreted and the report reviewed and electronically signed by: UMU CADE MD on Sep 28 2024 4:50PM EST [id number] [facility] MR/BMS.BVSon 08-27-2024 MR/BMS.BVS Normal [facility] CNOVon 07-24-2024 CNOV Office Visit (UCWSTR ) ALVARADO COHEN ([id number]) 1945 F Date Time Provider Department 07/24/24 11:00 AM ALLIE LYNCH [facility] During your visit today, we recorded the following information about you: Temperature Pulse Respiration Blood pressure 96.4 degrees 69/minute 18/minute 210/64 Weight 55 kg Allie Lynch APRN.MEDICAL POLICY SPECIALIST 07/24/2024 11:37 AM Signed Subjective Came in [...] history is provided by the patient. No professor of languages was used. Laceration Review of Systems Constitutional: [...] plan. Both wounds were redressed. Allie Lynch APRN.MEDICAL POLICY SPECIALIST Allergies As of Date: 07/24/2024 Noted Allergy [...] (more content not included)... Normal [facility] SCREENINGon 08-08-2023 [facility] Vital Signs Date Time Vital Sign Value Performing Clinician Facility 06-29-2025 15:50-0400 Diastolic blood pressure 71 mm[Hg] Dr. Glenny Luque MD Work Phone: [facility] 06-29-2025 15:50-0400 Heart rate 67 /min Dr. Glneny Luque MD Work Phone: [facility] 06-29-2025 15:50-0400 Respiratory rate 22 /min Dr. Glenny Luque MD Work Phone: [facility] 06-29-2025 15:50-0400 SaO2% (BldA) [Mass fraction] 95 % Dr. Glenny Luque MD Work Phone: 7(726)511-300926 [place] [address] 06-29-2025 15:50-0400 Systolic blood pressure 204 mm[Hg] Dr. Glenny Luque MD Work Phone: 3(223)810-093226 [place] [address] 06-29-2025 15:40-0400 Inhaled oxygen concentration 35 % Dr. Glenny Luque MD Work Phone: 2(711)530-434326 [place] [address] 06-29-2025 15:15-0400 Body temperature 97.2 [degF] Dr. Glenny Luque MD Work Phone: 6(620)517-159426 [place] [address] 06-29-2025 14:03-0400 Body mass index (BMI) [Ratio] 25.5 kg/m2 Dr. Glenny Luque MD Work Phone: 3(805)712-342626 [place] [address] 06-29-2025 14:03-0400 Body weight 65.[address] Glenny Luque MD Work Phone: 8(312)645-219526 [place] [address] 06-29-2025 13:20-0400 Inhaled oxygen flow rate 6 L/min Dr. Glenny Luque MD Work Phone: 7(424)262-935026 [place] [address] 06-29-2025 13:12-0400 Body height 160.[address] Glenny Luque MD Work Phone: 0(105)342-029826 [place] [address] 06-06-2025 13:59-0400 Diastolic blood pressure 40 mm[Hg] Dr. Glenny Luque MD Work Phone: 6(672)601-595526 [place] [address] 06-06-2025 13:59-0400 Heart rate 61 /min Dr. Glenny Luque MD Work Phone: 9(196)042-639826 [place] [address] 06-06-2025 13:59-0400 Systolic blood pressure 169 mm[Hg] Dr. Glenny Luque MD Work Phone: 9(208)332-558126 [place] [address] 06-06-2025 10:14-0400 Body temperature 98 [degF] Dr. Glenny Luque MD Work Phone: 8(321)922-615526 [place] [address] 06-06-2025 10:14-0400 Respiratory rate 12 /min Dr. Glenny Luque MD Work Phone: 8(606)783-156926 [place] [address] 06-06-2025 10:14-0400 SaO2% (BldA) [Mass fraction] 96 % Dr. Glenny Luque MD Work Phone: 2(111)261-356826 [place] [address] 06-06-2025 03:16-0400 Body mass index (BMI) [Ratio] 24.4 kg/m2 Dr. Glenny Luque MD Work Phone: 0(745)492-162626 [place] [address] 06-06-2025 03:16-0400 Body weight 62.[address] Glenny Luque MD Work Phone: 3(687)825-733026 [place] [address] 06-03-2025 11:40-0400 Body height 160.[address] Glenny Luque MD Work Phone: 5(590)411-133326 [place] [address] 05-29-2025 16:00-0400 Diastolic blood pressure 61 mm[Hg] Dr. Glenny Luque MD Work Phone: 1(046)783-705426 [place] [address] 05-29-2025 16:00-0400 Heart rate 68 /min Dr. Glenny Luque MD Work Phone: 0(005)588-906626 [place] [address] 05-29-2025 16:00-0400 Respiratory rate 13 /min Dr. Glenny Luque MD Work Phone: 9(271)133-075726 [place] [address] 05-29-2025 16:00-0400 SaO2% (BldA) [Mass fraction] 97 % Dr. Glneny Luque MD Work Phone: 3(961)001-242026 [place] [address] 05-29-2025 16:00-0400 Systolic blood pressure 198 mm[Hg] Dr. Glenny Luque MD Work Phone: 0(393)582-163426 [place] [address] 05-29-2025 15:33-0400 Body temperature 97.8 [degF] Dr. Glenny Luque MD Work Phone: 3(744)934-944326 [place] [address] 05-29-2025 12:48-0400 Body height 160.[address] Glenny Luque MD Work Phone: 6(530)274-775226 [place] [address] 05-29-2025 12:48-0400 Body mass index (BMI) [Ratio] 21.7 kg/m2 Dr. Glenny Luque MD Work Phone: [facility] 05-29-2025 12:48-0400 Body weight 55.[address] Glenny Luque MD Work Phone: [facility] 03-22-2025 15:20-0400 Diastolic blood pressure 68 mm[Hg] Glenny Luque MD Work Phone: [facility] 03-22-2025 15:20-0400 Systolic blood pressure 164 mm[Hg] Glenny Luque MD Work Phone: [facility] 03-22-2025 15:16-0400 Body mass index (BMI) [Ratio] 21.9 kg/m2 Glenny Luque MD Work Phone: [facility] 03-22-2025 15:16-0400 Body weight 54.3 kg Glenny Luque MD Work Phone: [facility] 03-22-2025 15:16-0400 Heart rate 62 /min Glenny Luque MD Work Phone: [facility] 03-22-2025 15:16-0400 Respiratory rate 18 /min Glenny Luque MD Work Phone: [facility] 11-26-2024 13:33-0500 Diastolic blood pressure 64 mm[Hg] Glenny Luque MD Work Phone: [facility] 11-26-2024 13:33-0500 Systolic blood pressure 166 mm[Hg] Glenny Luque MD Work Phone: [facility] 11-26-2024 13:30-0500 Body height 157.5 cm Glenny Luque MD Work Phone: [facility] 11-26-2024 13:30-0500 Body mass index (BMI) [Ratio] 22.18 kg/m2 Glenny Luque MD Work Phone: [facility] 11-26-2024 13:30-0500 Body weight 55 kg Glenny Luque MD Work Phone: [facility] 11-26-2024 13:30-0500 Heart rate 70 /min Glenny Luque MD Work Phone: [facility] 11-26-2024 13:30-0500 Respiratory rate 18 /min Glenny Luque MD Work Phone: [facility] 07-24-2024 11:00-0400 Body mass index (BMI) [Ratio] 21.48 kg/m2 Allie Lynch APRN.MEDICAL POLICY SPECIALIST Work Phone: [facility] 07-24-2024 11:00-0400 Body temperature 96.4 [degF] Allie Lynch APRN.MEDICAL POLICY SPECIALIST Work Phone: [facility] 07-24-2024 11:00-0400 Body weight 55 kg Allie Lynch APRN.MEDICAL POLICY SPECIALIST Work Phone: [facility] 07-24-2024 11:00-0400 Diastolic blood pressure 64 mm[Hg] Allie Lynch APRN.MEDICAL POLICY SPECIALIST Work Phone: [facility] Comment on above: BP checked x 2 210/73 07-24-2024 11:00-0400 Heart rate 69 /min Allie Lynch APRN.MEDICAL POLICY SPECIALIST Work Phone: [facility] 07-24-2024 11:00-0400 Respiratory rate 18 /min Allie Lynch APRN.MEDICAL POLICY SPECIALIST Work Phone: [facility] 07-24-2024 11:00-0400 SaO2% (BldA) [Mass fraction] 99 % Allie Lynch APRN.MEDICAL POLICY SPECIALIST Work Phone: [facility] 07-24-2024 11:00-0400 Systolic blood pressure 210 mm[Hg] Allie Lynch APRN.MEDICAL POLICY SPECIALIST Work Phone: [facility] Comment on above: BP checked x 2 210/73 03-20-2024 10:10-0400 Diastolic blood pressure 67 mm[Hg] Hans Mccray APRN.MEDICAL POLICY SPECIALIST Work Phone: [facility] Comment on above: BP CHASITY AVERAGE 03-20-2024 10:10-0400 Heart rate 63 /min Hans Mahendra EXCEL SPECIALIST.MEDICAL POLICY SPECIALIST Work Phone: [facility] 03-20-2024 10:10-0400 Systolic blood pressure 200 mm[Hg] Hans Mahendra EXCEL SPECIALIST.MEDICAL POLICY SPECIALIST Work Phone: [facility] Comment on above: BP CHASITY AVERAGE 03-20-2024 09:52-0400 Body mass index (BMI) [Ratio] 21.86 kg/m2 Hans Mahendra EXCEL SPECIALIST.MEDICAL POLICY SPECIALIST Work Phone: [facility] 03-20-2024 09:52-0400 Body weight 55.97 kg Hans Mahendra EXCEL SPECIALIST.MEDICAL POLICY SPECIALIST Work Phone: [facility] 03-20-2024 09:52-0400 Respiratory rate 16 /min Hans Mahendra EXCEL SPECIALIST.MEDICAL POLICY SPECIALIST Work Phone: [facility] 03-20-2024 09:52-0400 SaO2% (BldA) [Mass fraction] 99 % Hans Mahendra EXCEL SPECIALIST.MEDICAL POLICY SPECIALIST Work Phone: [facility] 02-17-2024 11:30-0400 Diastolic blood pressure 67 mm[Hg] Hans Mahendra EXCEL SPECIALIST.MEDICAL POLICY SPECIALIST Work Phone: [facility] 02-17-2024 11:30-0400 Heart rate 71 /min Hans Mahendra EXCEL SPECIALIST.MEDICAL POLICY SPECIALIST Work Phone: [facility] 02-17-2024 11:30-0400 Systolic blood pressure 188 mm[Hg] Hans Mahendra EXCEL SPECIALIST.MEDICAL POLICY SPECIALIST Work Phone: [facility] 02-17-2024 11:23-0400 Body weight 56.16 kg Hans Mahendra EXCEL SPECIALIST.MEDICAL POLICY SPECIALIST Work Phone: [facility] 02-17-2024 11:23-0400 Respiratory rate 16 /min Hans Mahendra EXCEL SPECIALIST.MEDICAL POLICY SPECIALIST Work Phone: [facility] 02-17-2024 11:23-0400 SaO2% (BldA) [Mass fraction] 99 % Hans Mahendra EXCEL SPECIALIST.MEDICAL POLICY SPECIALIST Work Phone: [facility] 06-12-2023 12:30-0400 Body weight 55.34 kg Laurel Tannhof EXCEL SPECIALIST.MEDICAL POLICY SPECIALIST Work Phone: [facility] 06-12-2023 12:30-0400 Diastolic blood pressure 76 mm[Hg] Laurel Tannhof EXCEL SPECIALIST.MEDICAL POLICY SPECIALIST Work Phone: [facility] 06-12-2023 12:30-0400 Heart rate 75 /min Laurel Tannhof EXCEL SPECIALIST.MEDICAL POLICY SPECIALIST Work Phone: [facility] 06-12-2023 12:30-0400 Respiratory rate 16 /min Laurel Tannhof EXCEL SPECIALIST.MEDICAL POLICY SPECIALIST Work Phone: [facility] 06-12-2023 12:30-0400 SaO2% (BldA) [Mass fraction] 98 % Laurel Tannhof EXCEL SPECIALIST.MEDICAL POLICY SPECIALIST Work Phone: [facility] 06-12-2023 12:30-0400 Systolic blood pressure 180 mm[Hg] Laurel Tannhof EXCEL SPECIALIST.MEDICAL POLICY SPECIALIST Work Phone: [facility] 05-08-2023 12:50-0400 Body weight 55.79 kg Laurel Tannhof EXCEL SPECIALIST.MEDICAL POLICY SPECIALIST Work Phone: [facility] 05-08-2023 12:50-0400 Diastolic blood pressure 80 mm[Hg] Laurel Tannhof EXCEL SPECIALIST.MEDICAL POLICY SPECIALIST Work Phone: [facility] 05-08-2023 12:50-0400 Heart rate 58 /min Laurel Tannhof EXCEL SPECIALIST.MEDICAL POLICY SPECIALIST Work Phone: [facility] 05-08-2023 12:50-0400 Respiratory rate 16 /min Laurel Tannhof EXCEL SPECIALIST.MEDICAL POLICY SPECIALIST Work Phone: [facility] 05-08-2023 12:50-0400 SaO2% (BldA) [Mass fraction] 97 % Laurel Tannhof EXCEL SPECIALIST.MEDICAL POLICY SPECIALIST Work Phone: [facility] 05-08-2023 12:50-0400 Systolic blood pressure 160 mm[Hg] Laurel Tannhof EXCEL SPECIALIST.MEDICAL POLICY SPECIALIST Work Phone: [facility] 04-08-2023 13:28-0400 Body weight 55.34 kg Laurel Tannhof EXCEL SPECIALIST.MEDICAL POLICY SPECIALIST Work Phone: [facility] 04-08-2023 13:28-0400 Diastolic blood pressure 60 mm[Hg] Laurel Tannhof EXCEL SPECIALIST.MEDICAL POLICY SPECIALIST Work Phone: [facility] 04-08-2023 13:28-0400 Heart rate 77 /min Laurel Tannhof EXCEL SPECIALIST.MEDICAL POLICY SPECIALIST Work Phone: [facility] 04-08-2023 13:28-0400 Respiratory rate 6 /min Laurel Tannhof EXCEL SPECIALIST.MEDICAL POLICY SPECIALIST Work Phone: [facility] 04-08-2023 13:28-0400 SaO2% (BldA) [Mass fraction] 97 % Laurel Tannhof EXCEL SPECIALIST.MEDICAL POLICY SPECIALIST Work Phone: [facility] 04-08-2023 13:28-0400 Systolic blood pressure 140 mm[Hg] Laurel Tannhof EXCEL SPECIALIST.MEDICAL POLICY SPECIALIST Work Phone: [facility] 08-27-2022 10:05-0400 Body weight 54.88 kg Laurel Tannhof EXCEL SPECIALIST.MEDICAL POLICY SPECIALIST Work Phone: [facility] 08-27-2022 10:05-0400 Diastolic blood pressure 80 mm[Hg] Laurel Tannhof EXCEL SPECIALIST.MEDICAL POLICY SPECIALIST Work Phone: [facility] 08-27-2022 10:05-0400 Heart rate 83 /min Laurel Tannhof EXCEL SPECIALIST.MEDICAL POLICY SPECIALIST Work Phone: [facility] 08-27-2022 10:05-0400 Respiratory rate 16 /min Laurel Tannhof EXCEL SPECIALIST.MEDICAL POLICY SPECIALIST Work Phone: [facility] 08-27-2022 10:05-0400 SaO2% (BldA) [Mass fraction] 99 % Laurel Tannhof EXCEL SPECIALIST.MEDICAL POLICY SPECIALIST Work Phone: [facility] 08-27-2022 10:05-0400 Systolic blood pressure 160 mm[Hg] Laurel Olmosritesh VANEGASMEDICAL POLICY SPECIALIST Work Phone: [facility] Encounters Encounter Date Encounter Type Care Provider Facility Start: 06-30-2025 ambulatory Glenny Luque Facilit y:[facility] Start: 06-29-2025 Non-patient / Non-visit Dr. Conchita kirk MD -[facility] Work Phone: Start: 06-29-2025 Evaluation and management of inpatient Dr. Conchita Burns MD -Intensive Care Unit Work Phone: Start: 06-22-2025 ambulatory Glenny Luque Facilit y:[facility] Start: 06-22-[address] Tiffanie Govea DO -Occupational Therapy Work Phone: Start: 06-21-2025 End: 06-21-[address] Glenny Luque MD Work Phone: -Laboratory [facility] Start: 06-21-2025 End: 06-21-[address] Nora Govea DO -Laboratory [place] Work Phone: Start: 06-21-2025 End: 06-21-2025 ambulatory Nora Govea Facility:[facility] Start: 06-14-[address] Tiffanie Govea DO -Physical Therapy Work Phone: Start: 06-14-2025 End: 06-14-[address] Glenny Luque MD Work Phone: -Laboratory [place] Start: 06-14-2025 End: 06-14-[address] Nora Govea DO -Laboratory [place] Work Phone: Start: 06-14-2025 End: 06-14-2025 ambulatory Glenny Luque Facility:[facility] Start: 06-10-2025 End: 06-10-2025 ambulatory GLENNY LUQUE Facility:[facility] Start: 06-08-2025 End: 06-08-[address] Glenny Luque MD Work Phone: -Laboratory Start: 06-08-2025 End: 06-08-[address] Nora Govea DO -Laboratory Work Phone: Start: 06-07-2025 End: 06-08-2025 Patient Outreach Tiffanie [facility] Comment on above: Transition Of Care Start: 06-06-2025 Non-patient / Non-visit Dr. Tiffanie Govea DO [facility] Work Phone: Start: 06-05-2025 Non-patient / Non-visit Dr. Tiffanie Govea [facility] Work Phone: Start: 06-04-2025 Non-patient / Non-visit Dr. Tiffanie Govea DO [facility] Work Phone: Start: 06-03-2025 Non-patient / Non-visit Dr. Tiffanie Govea DO [facility] Work Phone: Start: 06-02-2025 Non-patient / Non-visit Dr. Tiffanie Govea [facility] Work Phone: Start: 06-01-2025 Non-patient / Non-visit Dr. Porfirio nuñez MD [facility] Start: 06-01-2025 Non-patient / Non-visit Juan Manuel Webber nd, DO [facility] Start: 06-01-2025 Non-patient / Non-visit Dr. Tiffanie Govea [facility] Work Phone: Start: 05-31-2025 ambulatory Lisandro Bernardo Facility:[facility] Start: 05-31-2025 Non-patient / Non-visit Dr. Kelby RUELAS [facility] Start: 05-31-2025 Non-patient / Non-visit Dr. Tiffanie Govea [facility] Work Phone: Start: 05-30-2025 Non-patient / Non-visit Dr. Glenny Meza [facility] Work Phone: Start: 05-29-2025 ambulatory Conchita Burns Facility:[facility] Start: 05-29-2025 End: 06-06-2025 Evaluation and management of inpatient Dr. Conchita Burns MD -Intensive Care Unit Work Phone: Start: 04-22-2025 End: 04-28-2025 Telephone encounter Glenny Luque MD Work Phone: [facility] [place] Comment on above: medical consultation form ([facility]) Start: 04-07-2025 End: 04-07-2025 ambulatory Faith Larkin MA [facility] Start: 04-07-2025 End: 04-07-2025 Patient encounter procedure Faith Larkin MA [facility] Comment on above: Population Health Na vigation Outreach ([facility] WORK[facility] [employer] [facility] [place] [facility] ) Start: 04-01-2025 End: 04-01-2025 [facility] Start: 03-22-2025 End: 03-22-2025 Office outpatient visit 25 minutes Glenny Luque MD Work Phone: [facility] Comment on above: Essential hypertensi on, benign (Primary Dx); Resistant hypertension; Uncontrolled hypertension; Osteoporosis, unspecified osteoporosis type, unspecified pathological fracture presence; Claudication; Tobacco use disorder Start: 03-22-2025 End: 03-22-2025 ambulatory GLENNY LUQUE Facility:[facility] Start: 03-03-2025 End: 03-03-2025 ambulatory Faith Larkin MA [facility] Start: 03-03-2025 End: 03-03-2025 Patient encounter procedure Faith Larkin MA [facility] [place] Comment on above: Population Health Na vigation Outreach ([facility] [place] [facility] ) Start: 02-22-2025 End: 02-22-2025 ambulatory GLENNY LUQUE Facility:[facility] Start: 01-25-2025 End: 01-25-2025 Refill Glenny Luque MD Work Phone: [facility] [place] Comment on above: Refill Request Start: 01-04-2025 End: 03-06-2025 Follow-up encounter Glenny Luque MD Work Phone: [facility] Start: 01-01-2025 End: 01-01-2025 ambulatory GLENNY LUQUE Facility:[facility] Start: 01-01-2025 End: 01-01-2025 Subsequent hospital visit by physician Bone Density [facility] Work Phone: Radiology Comment on above: Age-related osteopor osis without current pathological fracture [M81.0] Start: 12-09-2024 End: 12-09-2024 ambulatory GLENNY LUQUE Facility:[facility] Start: 12-09-2024 Patient encounter procedure GLENNY [facility] Start: 11-26-2024 End: 11-26-2024 ambulatory [place] Facility:[facility] Start: 11-26-2024 End: 11-26-2024 Patient encounter procedure Glenny Luque MD Work Phone: [facility] Comment on above: Encounter for Medica re [...] Luque Facility:[facility] Start: 10-07-2024 End: 10-07-2024 ambulatory Porfirio Pomona Facility:[facility] Start: 09-25-2024 End: 09-25-2024 ambulatory GLENNY LUQUE Facility:[facility] Start: 09-25-2024 End: 09-25-2024 Subsequent hospital visit by physician Screen Mammo [facility] Comment on above: Visit for screening mammogram [Z12.31] Start: 09-18-2024 End: 09-18-2024 ambulatory Jelani Ozuna MA [facility] Start: 09-18-2024 End: 09-18-2024 Patient encounter procedure Jelani Ozuna MA [facility] Comment on above: Population Health Na vigation Outreach ([employer] list 2023/) Start: 08-27-2024 End: 08-27-2024 ambulatory Porfirio Mei [facility] Start: 07-24-2024 End: 07-24-2024 ambulatory GLENNY LUQUE Facility:[facility] Start: 07-24-2024 End: 07-24-2024 Patient encounter procedure Allie Lynch APRN.MEDICAL POLICY SPECIALIST Work Phone: [facility] Comment on above: Open wound (Primary Dx) Start: 03-26-2024 Telephone encounter Hans youngblood APRN.MEDICAL POLICY SPECIALIST Work Phone: [facility] [place] Comment on above: fax referral to Dr Alexander Govea Start: 03-23-2024 Refill Hans GILLETTE RN.MEDICAL POLICY SPECIALIST Work Phone: Family [facility] [place] Comment on above: Refill Request Medication Problem Start: 03-20-2024 End: 03-20-2024 Office outpatient visit 15 minutes Hans Mccray APRN.MEDICAL POLICY SPECIALIST Work Phone: Family [facility] [place] Comment on above: Essential hypertensi on, benign (Primary Dx); Uncontrolled hypertension Start: 03-10-2024 ambulatory Glenny bunch MD Work Phone: Family [facility] [place] Comment on above: Ultrasound results Start: 03-10-2024 E-mail encounter fro m caregiver Glenyn Luque MD Work Phone: [facility] [place] Start: 03-10-2024 Telephone encounter Hans youngblood APRN.MEDICAL POLICY SPECIALIST Work Phone: [facility] [place] Comment on above: Results Start: 03-09-2024 Refill Hans GILLETTE RN.MEDICAL POLICY SPECIALIST Work Phone: [facility] [place] Comment on above: Refill Request Opened In Error Start: 03-06-2024 End: 03-06-2024 Subsequent hospital visit by physician [facility] Work Phone: Radiology Comment on above: Essential hypertensi on, benign [I10] Start: 02-18-2024 Telephone encounter Hans youngblood APRN.MEDICAL POLICY SPECIALIST Work Phone: [facility] [place] Comment on above: Results Start: 02-17-2024 End: 02-17-2024 Office outpatient visit 15 minutes Hans Mccray APRN.MEDICAL POLICY SPECIALIST Work Phone: [facility] Comment on above: Essential hypertensi on, benign (Primary Dx); Resistant hypertension Start: 02-06-2024 Refill Glenny bunch MD Work Phone: [facility] Comment on above: Refill Request Start: 01-11-2024 Refill Hans GILLETTE RN.MEDICAL POLICY SPECIALIST Work Phone: [facility] Comment on above: Refill Request Start: 09-02-2023 Refill Laurel Toure APRN.MEDICAL POLICY SPECIALIST Work Phone: [facility] Comment on above: Med Change Request Start: 08-08-2023 Documentation procedure Mammog kelechi Coordinator [facility] Start: 08-08-2023 Letter encounter Mammography Coordinator [facility] Start: 08-08-2023 End: 08-08-2023 Subsequent hospital visit by physician Screen Mammo [facility] Comment on above: Visit for screening mammogram [Z12.31] Start: 07-19-2023 Orders Only Glenny bunch MD Work Phone: [address] [place] [address] Comment on above: Visit for screening mammogram (Primary Dx) Start: 07-11-2023 Refill Laurel Toure APRN.MEDICAL POLICY SPECIALIST Work Phone: [facility] Comment on above: Refill Request Start: 07-09-2023 Refill Glenny bunch MD Work Phone: [facility] Comment on above: Refill Request Start: 06-12-2023 ambulatory Laurel Toure APRN.MEDICAL POLICY SPECIALIST Work Phone: [facility] Comment on above: BP post visit 06/12/23 Start: 06-12-2023 End: 06-12-2023 Patient encounter procedure Laurel Toure APRN.MEDICAL POLICY SPECIALIST Work Phone: [facility] [place] Comment on above: Uncontrolled hyperte nsion (Primary Dx) Start: 05-13-2023 Telephone encounter Laurel Brian conrado EXCEL SPECIALIST.NIKKI Work Phone: [facility] [place] Comment on above: Consult Start: 05-08-2023 End: 05-08-2023 Patient encounter procedure Laurel Toure EXCEL SPECIALIST.NIKKI Work Phone: Family [facility] [place] Comment on above: Uncontrolled hyperte nsion (Primary Dx) Start: 04-08-2023 End: 04-08-2023 Patient encounter procedure Laurel Toure EXCEL SPECIALIST.MEDICAL POLICY SPECIALIST Work Phone: [facility] [place] Comment on above: Essential hypertensi on, benign (Primary Dx) Start: 08-27-2022 End: 08-27-2022 Patient encounter procedure Laurel Toure EXCEL SPECIALIST.NIKKI Work Phone: [facility] [place] Comment on above: Essential hypertensi on, benign (Primary Dx); Hyperlipidemia with target LDL less than 100; Tobacco abuse Start: 06-14-2022 ambulatory Indio GILLETTE RN.RODRIGUEZ JORDAN Work Phone: Neurology Comment on above: Results Start: 06-14-2022 E-mail encounter fro m caregiver Indio Robledo APRN.CNP, DNP Work Phone: [facility] [place] Start: 06-12-2022 Documentation procedure Mammog kelechi Coordinator [facility] Start: 06-12-2022 Letter encounter Mammography Coordinator [facility] Start: 06-11-2022 End: 06-11-2022 Subsequent hospital visit by physician Screen Mammo [facility] Comment on above: Visit for screening mammogram [Z12.31] Start: 06-08-2022 Orders Only Indio GILLETTE RN.RODRIGUEZ JORDAN Work Phone: [facility] Comment on above: Visit for screening mammogram (Primary Dx) Procedures Date Procedure Procedure Detail Performing Clinician Start: 06-29-2025 SARS-CoV-2, Influenza & RSV (PCR) Dr. Harry Luque MD Work Phone: Start: 06-29-2025 Plain chest X-ray Dr. Glenny Luque MD Work Phone: Start: 06-29-[address] Glenny Luque MD Work Phone: Start: 06-21-2025 Serum inorganic phosphate measurement Dr. Glenny Luque MD Work Phone: Start: 06-06-[address] Glenny [...] 06-21-2021 Adult depression screening assessment Indio Robledo APRN.NIKKI, RODRIGUEZ Work Phone: Start: 06-10-2017 Colonoscopy Indio Robledo APRN.RODRIGUEZ JORDAN Work Phone: Plan of Treatment Date Care Activity Detail Author Start: 07-16-2028 Urine microalbumin profile [facility] Start: 04-01-2028 Diabetes Screening Diabetes Screenin g [facility] Start: 02-23-2028 Diabetes Screening Diabetes Screenin g [facility] Start: 12-09-2027 Diabetes Screening Diabetes Screenin g [facility] Start: 06-10-2027 Colonoscopy COLONOSCOPY [facility] Start: 06-10-2027 COLORECTAL CANCER SCREENING COLORECTAL CANCER SCREENING [facility] Start: 02-16-2027 Diabetes Screening Diabetes Screenin g [facility] Start: 01-01-2027 Screening for osteoporosis Bone Dens ity Screening [facility] Start: 07-06-2026 LIPID SCREEN LIPID SCREEN [facility] Start: 03-22-2026 Annual PCP Team Solution Consultant kimberlee Disease Visit Annual PCP Team Chronic Disease Visit [facility] Start: 03-22-2026 Covid-19 Vaccine ( season) Covid-19 Vaccine ( season) [facility] Comment on above: Postponed from 02/17 (Declined at this time) Start: 11-26-2025 Annual PCP Team Solution Consultant kimberlee Disease Visit Annual PCP Team Chronic Disease Visit [facility] Start: 11-26-2025 Medicare Annual Well ness Visit Medicare Annual Wellness Visit [facility] Start: 10-19-2025 DIABETES SCREEN DIABETES SCREEN [facility] Start: 10-19-2025 Diabetes Screening Diabetes Screenin g [facility] Start: 07-05-2025 Influenza vaccination Influenza Vacc ine (#1) [facility] Start: 06-29-2025 Assessment of risk o f venous thromboembolism [facility] Start: 06-29-2025 Continuous pulse oximetry [facility] Start: 06-29-2025 Elevation of affecte d extremity [facility] Start: 06-29-2025 Elevation of head of bed [facility] Start: 06-29-2025 Incentive spirometry [facility] Start: 06-29-2025 Insertion of cathete r into peripheral vein [facility] Start: 06-29-2025 Measuring intake and output [facility] Start: 06-29-2025 Notification of physician [facility] Start: 06-29-2025 Oxygen therapy [facility] Start: 06-29-2025 Providing care accor ding to standard [facility] Start: 06-29-2025 Vital signs measurements [facility] Start: 06-29-2025 [facility] Start: 06-29-2025 Verification routine [facility] Start: 06-29-[address] [facility] Start: 06-29-2025 Dual pressure sponta neous ventilation support [facility] Start: 06-29-2025 [facility] Start: 06-29-2025 End: 06-29-2025 Continuous pulse oximetry [facility] Start: 06-29-2025 Dual pressure sponta neous ventilation support [facility] Start: 06-10-2025 End: 06-10-2025 Patient encounter procedure 06/10/2025 2:20 PM EDT Office Visit Family [facility] [address] [place] [id number] Gelnny Luque MD [address] [place] [address] [facility] follow up [facility] Comment on above: [facility] hospital follow up Start: 06-06-2025 Patient discharge [facility] Start: 06-04-2025 [facility] Start: 06-03-2025 Administration of bl ood product [facility] Start: 06-01-2025 End: 06-01-2025 Application of intermittent pneumatic compression device [facility] Start: 06-01-2025 Referral to gastroenterology service [facility] Start: 06-01-2025 Administration of bl ood product [facility] Start: 06-01-2025 [facility] Start: 05-31-2025 Referral to roll or tape edge machine operator [facility] Start: 05-31-2025 Referral to vascular surgeon [facility] Start: 05-31-2025 Inhalation therapy procedure [facility] Start: 05-29-2025 Following clinical p athway protocol [facility] Start: 05-29-2025 Assessment of risk o f venous thromboembolism [facility] Start: 05-29-2025 Insertion of cathete r into peripheral vein [facility] Start: 05-29-2025 Measuring intake and output [facility] Start: 05-29-2025 Providing care accor ding to standard [facility] Start: 05-29-2025 Referral to occupati onal therapist [facility] Start: 05-29-[address] [facility] Start: 05-29-2025 Vital signs measurements [facility] Start: 05-29-2025 [facility] Start: 05-29-[address] [facility] Start: 05-29-2025 Verification routine [facility] Start: 05-29-2025 Osmolality measureme nt, serum [facility] Start: 05-29-2025 Hospital admission, emergency, from emergency room, medical nature [facility] Start: 05-29-2025 Electrolytes measure ment, urine [facility] Start: 05-29-2025 Urea nitrogen measur ement, urine [facility] Start: 05-29-2025 [facility] Start: 05-29-2025 Patient referral to dietitian [facility] Start: 03-22-2025 End: 03-22-2025 Patient encounter procedure 03/22/2025 3:20 PM EDT Office Visit Family De[facility] [address] [place] [address] Glenny Luque MD [address] [place] [address] follow up Family [facility] [place] Comment on above: follow up Start: 03-20-2025 Annual PCP Team Solution Consultant kimberlee Disease Visit Annual PCP Team Chronic Disease Visit [facility] Start: 03-01-2025 End: 03-01-2025 Patient encounter procedure [facility] [place] Comment on above: 3 mo f/u HTN Start: 02-17-2025 Covid-19 Vaccine (9 - 2024-25 season) Covid-19 Vaccine () [facility] Start: 02-16-2025 Annual PCP Team Solution Consultant kimberlee Disease Visit Annual PCP Team Chronic Disease Visit [facility] Start: 01-01-2025 End: 01-01-2025 Patient encounter procedure 01/01/2025 12:30 PM EST Appointment Radiology [address] [place] [id number] Age-related osteoporosis without current pathological fracture [M81.0] Radiology Comment on above: Age-related osteopor osis without current pathological fracture [M81.0] Start: 12-14-2024 End: 12-14-2024 Patient encounter procedure 12/14/2024 2:30 PM EST Office Visit Vascular Surgery [address] [address] Uncontrolled hypertension [I10]; Leg fatigue [R29.898]; Claudication (HCC) [I73.9] Vascular Surgery Comment on above: Uncontrolled hyperte nsion [I10]; Leg fatigue [R29.898]; Claudication (HCC) [I73.9] Start: 11-26-2024 End: 02-25-2025 CBC W Auto Differential panel - Blood COMPLETE BLOOD COUNT AND DIFFERENTIAL Lab Routine Encounter for Medicare annual wellness exam Uncontrolled hypertension Expected: 11/26/2024, Expires: 02/25/2025 [facility] Comment on above: Expected: 11/26/2024 , Expires: 02/25/2025 Start: 11-26-2024 End: 02-25-2025 Comprehensive metabolic 2000 panel - Serum or Plasma COMPREHENSIVE METABOLIC PANEL Lab Routine Encounter for Medicare annual wellness exam Uncontrolled hypertension Hyperlipidemia with target LDL less than 100 Expected: 11/26/2024, Expires: 02/25/2025 [facility] Comment on above: Expected: 11/26/2024 , Expires: 02/25/2025 Start: 11-26-2024 End: 02-25-2025 Lipid 1996 panel - Serum or Plasma LIPID PANEL BASIC Lab Routine Encounter for Medicare annual wellness exam Uncontrolled hypertension Hyperlipidemia with target LDL less than 100 Expected: 11/26/2024, Expires: 02/25/2025 [facility] Comment on above: Expected: 11/26/2024 , Expires: 02/25/2025 Start: 11-09-2024 End: 11-09-2024 Patient encounter procedure 11/09/2024 12:00 PM EST Office Visit Family Debbie [place] [address] [place], [place] [phone] Glenny Luque MD [address] [facility] [place] [id number] AWV is PRIMARY/Follow up [facility] [place] Comment on above: AWV is PRIMARY/Follo w up Start: 11-04-2024 Advance Directive Discussion Advance Directive Discussion [facility] Start: 09-25-2024 End: 09-25-2024 Patient encounter procedure 09/25/2024 12:50 PM EST Appointment Mammogram [address] [place], [place] [id number] encounter for routine screening MAMMOGRAM*pended order Glenny Luque MD Mammogram Comment on above: encounter for routin e screening MAMMOGRAM*pended order Glenny Luque MD Start: 07-06-2024 DIABETES SCREEN DIABETES SCREEN [facility] Start: 07-05-2024 Covid-19 Vaccine ( season) Covid-19 Vaccine () [facility] Start: 07-05-2024 Influenza vaccination Influenza Vacc ine (#1) [facility] Start: 06-22-2024 End: 06-22-2024 Patient encounter procedure 06/22/2024 2:40 PM EDT Office Visit Family Debbie [place] [address] [place] [address] Glenny Luque MD [address] [facility] [place] [address] 3 Month F/U Family Debbie [place] Comment on above: 3 Month F/U Start: 06-12-2024 ANNUAL PCP TEAM FIELD 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 KIMBERLEE DISEASE VISIT ANNUAL PCP TEAM CHRONIC DISEASE VISIT [facility] Start: 05-08-2024 ANNUAL PCP TEAM FIELD SALES EXECUTIVE KIMBERLEE DISEASE VISIT ANNUAL PCP TEAM CHRONIC DISEASE VISIT [facility] Start: 04-08-2024 ANNUAL PCP TEAM FIELD SALES EXECUTIVE KIMBERLEE DISEASE VISIT ANNUAL PCP TEAM CHRONIC DISEASE VISIT [facility] Start: 03-20-2024 End: 03-20-2024 Patient encounter procedure 03/20/2024 10:00 AM EDT Office Visit [facility] [place] [address] [place] [address] Hans Mccray APRN.MEDICAL POLICY SPECIALIST [address] [place] [address] BP follow up [facility] [place] Comment on above: BP follow up Start: 02-17-2024 End: 05-18-2024 ALDOSTERONE/DIRECT RENIN RATIO [facility] Work Phone: Comment on above: Expected: 02/17/2024 , Expires: 05/18/2024 Start: 02-17-2024 End: 05-18-2024 Basic metabolic 2000 panel - Serum or Plasma [facility] Work Phone: Comment on above: Expected: 02/17/2024 (Approximate), Expires: 05/18/2024 Start: 12-10-2023 Covid-19 Vaccine () Covid-19 Vaccine () [facility] Start: 11-04-2023 Advance Directive Discussion Advance Directive Discussion [facility] Start: 11-04-2023 Behavioral Health Screening Behavioral Health Screening [facility] Start: 11-04-2023 Depression Assessment Depression Ass essment [facility] Start: 08-27-2023 ANNUAL PCP TEAM FIELD SALES EXECUTIVE KIMBERLEE DISEASE VISIT ANNUAL PCP TEAM CHRONIC DISEASE VISIT [facility] Start: 07-05-2023 Covid-19 Vaccine ( season) Covid-19 Vaccine () [facility] Start: 07-05-2023 Influenza vaccination C [facility] Start: 12-14-2022 COVID-19 VACCINE (7 - Moderna series) COVID-19 VACCINE (7 - Moderna series) [facility] Start: 11-04-2022 ADVANCE DIRECTIVE DISCUSSION ADVANCE DIRECTIVE DISCUSSION [facility] Start: 08-27-2022 End: 10-27-2022 Comprehensive metabolic 2000 panel - Serum or Plasma COMP METABOLIC PANEL Lab Routine Essential hypertension, benign Expected: 08/27/2022, Expires: 10/27/2022 [facility] Work Phone: Comment on above: Expected: 08/27/2022 , Expires: 10/27/2022 Start: 08-27-2022 End: 10-27-2022 Lipid 1996 panel - Serum or Plasma LIPID PANEL BASIC Lab Routine Hyperlipidemia with target LDL less than 100 Expected: 08/27/2022, Expires: 10/27/2022 [facility] Work Phone: Comment on above: Expected: 08/27/2022 , Expires: 10/27/2022 Start: 07-05-2022 Influenza vaccination INFLUENZA (#1) [facility] Start: 06-26-2022 ANNUAL PCP TEAM FIELD SALES EXECUTIVE KIMBERLEE DISEASE VISIT ANNUAL PCP TEAM CHRONIC DISEASE VISIT [facility] Start: 06-26-2022 BP CONTROLLED (<130/80) BP CONTROLLE D (<130/80) [facility] Start: 06-26-2022 Influenza vaccination LUNG CANCER SC VLAD [facility] Comment on above: Postponed from 06/20 (Declined at this time) Start: 06-21-2022 Adult depression scr [facility] assessment DEPRESSION SCREENING [facility] Start: 11-04-2021 ADVANCE DIRECTIVE DISCUSSION ADVANCE DIRECTIVE DISCUSSION [facility] Start: 04-09-2018 Screening for osteoporosis Bone Dens ity Screening [facility] Start: 2006 RSV Vaccine (1 - 1-d ose 60+ series) RSV Vaccine (1 - 1-dose 60+ series) [facility] Start: 1996 Influenza vaccination LUNG CANCER SC VLAD [facility] Start: 1996 Screening for malign ant neoplasm of lung Lung Cancer Screening [facility] Start: 1991 COLOGUARD (FIT-DNA) COLOGUARD (FIT-D NA) [facility] Start: [address] COLONOGRAPHY [facility] Start: 1991 FECAL OCCULT BLOOD FECAL OCCULT BLOO D [facility] Start: 1991 SIGMOIDOSCOPY SIGMOIDOSCOPY [facility] Start: 1964 Anxiety Screening Anxiety Screening [facility] Start: 1964 Depression Screening Depression Scre ening [facility] Anion gap in Serum o r Plasma [facility] Anion gap in Serum o r Plasma [facility] Anion gap in Serum o r Plasma [facility] End: 12-26-2025 BD DXA TRABECULAR BONE SCORE (TBS) BD DXA TRABECULAR BONE SCORE (TBS) Radiology Routine Age-related osteoporosis without current pathological fracture 1 Occurrences starting 11/26/2024 until 12/26/2025 [facility] Comment on above: 1 Occurrences starti ng 11/26/2024 until 12/26/2025 BD DXA TRABECULAR JOSE NE SCORE (TBS) BD DXA TRABECULAR BONE SCORE (TBS) Radiology Routine Age-related osteoporosis without current pathological fracture 01/01/2025 12:47 PM EST [facility] BUN/Creatinine ratio [facility] BUN/Creatinine ratio [facility] BUN/Creatinine ratio [facility] Calcium [Mass/volume ] in Serum or Plasma [facility] Calcium [Mass/volume ] in Serum or Plasma [facility] Calcium [Mass/volume ] in Serum or Plasma [facility] Carbon dioxide, tota l [Moles/volume] in Central venous blood [facility] Carbon dioxide, tota l [Moles/volume] in Central venous blood [facility] Carbon dioxide, tota l [Moles/volume] in Central venous blood [facility] Creatinine [Mass/vol ume] in Serum or Plasma [facility] Creatinine [Mass/vol ume] in Serum or Plasma [facility] Creatinine [Mass/vol ume] in Serum or Plasma [facility] End: 12-26-2025 DXA Skeletal system.axial Views for bone density DXA-AXIAL SKELETON Radiology Routine Age-related osteoporosis without current pathological fracture 1 Occurrences starting 11/26/2024 until 12/26/2025 [facility] Comment on above: 1 Occurrences starti ng 11/26/2024 until 12/26/2025 DXA Skeletal system. axial Views for bone density DXA-AXIAL SKELETON Radiology Routine Age-related osteoporosis without current pathological fracture 01/01/2025 12:47 PM EST [facility] [employer] Work Phone: Erythrocyte mean corpuscular volume determination [facility] Glucose [Mass/volume ] in Serum or Plasma [facility] Glucose [Mass/volume ] in Serum or Plasma [facility] Glucose [Mass/volume ] in Serum or Plasma [facility] Hematocrit [Volume Fraction] of Blood [facility] Hemoglobin [Mass/vol ume] in Blood [facility] Leukocytes [#/volume ] in Blood [facility] JOSEFA SCREENING JOSEFA SCREENING Ra diology Routine Visit for screening mammogram Ordered: 07/21/2023 [facility] Work Phone: Comment on above: Ordered: 07/21/2023 Mean corpuscular hemoglobin concentration determination [facility] Mean corpuscular hemoglobin determination [facility] Measurement of renal function [facility] Measurement of renal function [facility] Measurement of renal function [facility] MG Breast Screening JOSEFA SCREENIN G Radiology Routine Visit for screening mammogram 09/25/2024 1:08 PM EST [facility] Work Phone: Neutrophil count [facility] Neutrophil percent differential count [facility] Osmolality of Urine [facility] Platelets [#/volume] in Blood [facility] Potassium measurement [facility] Potassium measurement [facility] Potassium measurement [facility] Red blood cell count [facility] Red cell distributio n width determination [facility] Screening mammograph y bi 2-view breast inc cad [facility] Work Phone: Comment on above: Ordered: 06/08/2022 Serum chloride measurement [facility] Serum chloride measurement [facility] Serum chloride measurement [facility] Sodium measurement [facility] Sodium measurement [facility] Sodium measurement [facility] Troponin T.cardiac [Mass/volume] in Serum or Plasma by High sensitivity method [facility] Urea nitrogen [Mass/volume] in Serum or Plasma [facility] Urea nitrogen [Mass/volume] in Serum or Plasma [facility] Urea nitrogen [Mass/volume] in Serum or Plasma [facility] End: 03-18-2025 US Kidney - bilateral and Urinary bladder US KIDNEY/BLADDER Radiology Routine Essential hypertension, benign Resistant hypertension 1 Occurrences starting 02/17/2024 until 03/18/2025 [facility] Work Phone: Comment on above: 1 Occurrences starti ng 02/17/2024 until 03/18/2025 US Kidney - bilatera l and Urinary bladder US KIDNEY/BLADDER Radiology Routine Essential hypertension, benign Resistant hypertension 03/06/2024 11:35 AM EDT [facility] Work Phone: End: 11-26-2025 US.doppler Extremity arteries - bilateral for physiologic artery study PVR ANK PRESS [facility] Routine Uncontrolled hypertension Leg fatigue Claudication (HCC) 1 Occurrences starting 11/26/2024 until 11/26/2025 [facility] Work Phone: Comment on above: 1 Occurrences starti ng 11/26/2024 until 11/26/2025 [facility] Immunizations Immunization Date Immunization Notes Care Provider Fa [facility] 08-19-2024 COVID-19 vaccine, ag e 12+ yr (PFIZER-BIONTECH COMIRNATY) Jelani Ozuna [facility] 08-19-2024 influenza virus vacc ine, unspecified formulation Jelaniakiko Ozuna [facility] 08-31-2023 respiratory syncytia l virus (RSV) vaccine, bivalent (ABRYSVO) Laurel Toure EXCEL SPECIALIST.MEDICAL POLICY SPECIALIST Work Phone: [facility] 08-13-2023 influenza, high dose seasonal, preservative-free Laurel Toure EXCEL SPECIALIST.MEDICAL POLICY SPECIALIST Work Phone: [facility] 08-13-2023 influenza virus vacc ine, unspecified formulation Allie Lynch EXCEL SPECIALIST.MEDICAL POLICY SPECIALIST Work Phone: [facility] 08-13-2022 COVID-19 booster vaccine, age 12+ yr, bivalent (PFIZER-BIONTECH) Laurel Toure EXCEL SPECIALIST.MEDICAL POLICY SPECIALIST Work Phone: [facility] 07-19-2022 influenza (aIIV4) vaccine, age 65+ yr, quadrivalent, PF (FLUAD QUADRIVALENT) Laurel Toure EXCEL SPECIALIST.MEDICAL POLICY SPECIALIST Work Phone: [facility] Work Phone: 07-19-2022 influenza, high-dose , quadrivalent vaccine (FLUZONE HIGH DOSE QUADRIVALENT) Laurel Toure EXCEL SPECIALIST.MEDICAL POLICY SPECIALIST Work Phone: [facility] 07-19-2022 influenza virus vacc ine, unspecified formulation Glenny Luque MD Work Phone: [facility] 02-06-2022 COVID-19 vaccine, booster dose (MODERNA) Indio Robledo APRN.[facility] Work Phone: [facility] 09-06-2021 COVID-19 vaccine, fu ll dose (MODERNA) Indio Robledo APRN.[facility], [facility] Work Phone: [facility] 08-06-2021 influenza virus vacc ine, unspecified formulation Indio Robledo APRN.[facility], [facility] Work Phone: [facility] 01-18-2021 COVID-19 vaccine, fu ll dose (MODERNA) Indio Robledo APRN.[facility], [facility] Work Phone: [facility] 12-21-2020 COVID-19 vaccine, fu ll dose (MODERNA) Indio Robledo APRN.[facility], [facility] Work Phone: [facility] 12-01-2020 zoster vaccine recombinant Indio Blaz EXCEL SPECIALIST.[facility], [facility] Work Phone: [facility] 09-28-2020 zoster vaccine recombinant Indio Blaz EXCEL SPECIALIST.[facility], [facility] Work Phone: [facility] Work Phone: 07-19-2020 influenza virus vacc ine, unspecified formulation Indio Robledo APRN.[facility], [facility] Work Phone: [facility] 07-18-2020 influenza, high dose seasonal, preservative-free Indio Blaz EXCEL SPECIALIST.[facility], [facility] Work Phone: [facility] Work Phone: 08-04-2019 influenza, high dose seasonal, preservative-free Indio Blaz EXCEL SPECIALIST.[facility], [facility] Work Phone: [facility] 07-05-2019 influenza virus vacc ine, unspecified formulation Indio Robledo APRN.[facility], [facility] Work Phone: [facility] 07-16-2018 diphtheria, tetanus toxoids and acellular pertussis vaccine Indio Blakevin HENDRICKSON.[facility], [facility] Work Phone: [facility] 07-16-2018 influenza virus vacc ine, unspecified formulation Indio Robledo APRN.[facility] Work Phone: [facility] 08-04-2017 influenza virus vacc ine, unspecified formulation Indio Robledo APRN.[facility] Work Phone: [facility] 08-17-2016 influenza, high dose seasonal, preservative-free Indio Robledo APRN.[facility] Work Phone: [facility] 03-26-2016 pneumococcal conjuga te vaccine, 13 valent Indio Robledo APRN.[facility] Work Phone: [facility] 08-04-2013 pneumococcal polysaccharide vaccine, 23 valent Indio Robledo APRN.[facility] Work Phone: [facility] 10-06-2009 novel influenza-H1N1 -09, preservative-free, injectable Indio Robledo APRN.[facility] Work Phone: [facility] 08-04-2008 tetanus toxoid, redu kodak diphtheria toxoid, and acellular pertussis vaccine, adsorbed Inido Robledo APRN.[facility] Work Phone: [facility] Work Phone: 04-18-2008 pneumococcal polysaccharide vaccine, 23 valent Indio Robledo APRN.[facility] Work Phone: [facility] Work Phone: 01-05-2008 zoster vaccine, live Indio Robledo APRN.[facility] Work Phone: [facility] 11-04-1996 diphtheria and tetan us toxoids, adsorbed for pediatric use Indio Robledo APRN.[facility] Work Phone: [facility] Work Phone: Payers Date Payer Category Payer Self-pay 2013 Private Health Insurance [facility] AARP SUPPLEMENT [id number] 2013-Present [phone] [address] [place] [address] Indemnity [id number] 2013 Private Health Insurance [id number] 2013 Unknown [id number] 2011 Medicare MEDICARE MEDICAR E A AND B [id number] 2011-Present [phone] [address] [address] [place] [address] Medicare [id number] 2011 Medicare [id number] 2011 Medicare [id number] Unknown [id number] Unknown [id number] .462 Unknown [id number] .462 Unknown [id number] 2.16.840.1.233831.3.579.2 .462 Unknown [id number] 2.16840.1.291636.3.579.2 .462 Unknown [id number] 2.16.840.1.685884.3.579.2 .462 Unknown [id number] 2.16.840.1.677639.3.579.2 .462 Unknown [id number] 2.16.840.1.075087.3.579.2 .462 Unknown [id number] 2.16.840.1.334829.3.579.2 .462 Unknown [id number] 2.16.840.1.978201.3.579.2 .462 Unknown [id number] 2.16.840.1.561296.3.579.2 .462 Unknown [id number] 2.16.840.1.698742.3.579.2 .462 Unknown [id number] 2.16.840.1.348818.3.579.2 .462 Unknown [id number] 2.16.840.1.369878.3.579.2 .462 Unknown [id number] 2.16.840.1.380177.3.579.2 .462 Unknown [id number] 2.16.840.1.919525.3.579.2 .462 Unknown [id number] 2.16.840.1.599836.3.579.2 .462 Unknown [id number] 2.16.840.1.367224.3.579.2 .462 Unknown [id number] 2.16.840.1.271835.3.579.2 .462 Unknown [id number] 2.16.840.1.646037.3.579.2 .462 Unknown [id number] 2.16.840.1.710829.3.579.2 .462 Unknown [id number] 2.16.840.1.673326.3.579.2 .462 Unknown [id number] [id number] .462 Social History Date Type Detail Facility Start: 06-26-2021 End: 11-26-2024 Tobacco smoking status PRIS Smokes tobacco daily [facility] History of tobacco use Cigarette Smoker C [facility] Start: 06-26-2021 End: 03-22-2025 Alcohol intake Current non-drinker of alcohol (finding) [facility] Start: 06-21-2021 End: 03-21-2023 History SDOH Alcohol Frequency 1 [facility] Start: 06-21-2021 End: 03-21-2023 History SDOH Social Connections Phone 3 [facility] Start: 06-21-2021 End: 03-21-2023 History SDOH Social Connections Get Together 98 [facility] Start: 06-21-2021 End: 03-21-2023 History SDOH Social Connections Living 5 [facility] Start: 06-21-2021 End: 03-21-2023 History SDOH Stress 2 [facility] Start: 06-21-2021 Education 18 [facility] Start: 1945 Sex Assigned At Female [facility] Start: 05-29-2022 End: 08-27-2022 Exposure to SARS-CoV-2 (event) Not sure [facility] Start: 06-26-2021 End: 03-21-2023 Cigarettes smoked current (pack per day) - Reported 1 [facility] Start: 06-26-2021 End: 11-26-2024 Tobacco use and exposure Smokeless tobacco non-user [facility] Work Phone: Start: 08-21-2022 End: 03-21-2023 History SDOH Alcohol Std Drinks 0 [facility] Start: 08-21-2022 History SDOH Financial 4 [facility] Start: 03-21-2023 End: 03-17-2024 Social connection and isolation panel [facility] In a typical week, h ow many times do you talk on the telephone with family, friends, or neighbors? Patient refused [facility] Do you belong to any clubs or organizations such as mormon groups, unions, fraternal or athletic groups, or school groups? Yes [facility] Are you now , , , , never or living with a partner? [facility] How often to you hav e a drink containing alcohol? Never [facility] Do you feel stress - tense, restless, nervous, or anxious, or unable to sleep at night because your mind is troubled all the time - these days [OSQ] Not at all [facility] (I/We) worried jarrett er (my/our) food would run out before (I/we) got money to buy more. Never true [facility] In the past 12 month s, was there a time when you were not able to pay the mortgage or rent on time? No [facility] Start: 06-17-2019 Gender identity Identifies as female gender (finding) [facility] Start: 06-17-2019 Sexual orientation Heterosexual (finding) [facility] How hard is it for y ou to pay for the very basics like food, housing, medical care, and heating Not very hard [facility] Start: 11-26-2024 Tobacco Comment Trying to reduce, smoking 10 or less. [facility] Do you feel stress - tense, restless, nervous, or anxious, or unable to sleep at night because your mind is troubled all the time - these days [OSQ] Only a little [facility] Start: 05-29-2025 Tobacco smoking status NHIS Current Heavy tobacco smoker [facility] Start: 05-30-2025 End: 06-29-2025 Tobacco smoking status PRIS Current Light tobacco smoker [facility] Goals Date Patient Goal Desired Activity /State Functional Status Date Assessment Result Facility 06-06-2025 Functional status Ambulates [facility] Work Phone: 03-23-2015 Are you deaf, or do you have serious difficulty hearing No 03/23/2015 11:35 AM Joana Looney LPN No [facility] 03-23-2015 Are you blind, or do you have serious difficulty seeing, even when wearing glasses No 03/23/2015 11:35 AM Joana Looney LPN No [facility] 03-23-2015 Do you have serious difficulty walking or climbing stairs No 03/23/2015 11:35 AM Joana Looney LPN No [facility] 03-23-2015 Do you have difficul ty dressing or bathing No 03/23/2015 11:35 AM Joana Looney LPN No [facility] 03-23-2015 Because of a physica l, mental, or emotional condition, do you have difficulty doing errands alone such as visiting a physician's office or shopping No 03/23/2015 11:35 AM Joana Looney LPN No [facility] Mental Status Date Assessment Result Facility 06-06-2025 Cognitive function Voice/Name [facility] Work Phone: 05-29-2025 Cognitive function Level Of Cons ciousness Awake;Alert;Appropriate;Fol lows Commands [facility] Work Phone: 03-23-2015 Because of a physica l, mental, or emotional condition, do you have serious difficulty concentrating, remembering, or making decisions No 03/23/2015 11:35 AM EDT Joana Duran LPN No [facility] Clinical Notes 02-26-2014 to 06-29-2025 Note Date & Type Note Facility 06-29-2025 History and physi matias note [facility] 06-29-2025 Discharge summary [facility] 06-29-2025 Radiology Diagnostic study note [facility] Imaging Services [address] [place] [address] Chest 1 View (Portable) MR#: [id number] Acct: [id number] Name: ALVARADO COHEN CALLI Rep #: [id number] : 1945 F 80 From: Kimo Alcazar MD PCP: Dr. Glenny Luque MD Status: [place] E ER Study:Chest 1 View (Portable) Date of Exam: 06/29/25 Exam# [id number] Ordering Dr: El Sumner MD PROCEDURE: CHEST 1 VIEW (PORTABLE) 06/29/2025 REASON FOR EXAM: SHORTNESS OF BREATH TECHNIQUE: Frontal view of the chest. COMPARISON: May 29, 2025. FINDINGS: Hardware: EKG electrodes are seen. Heart: Borderline cardiomegaly Lungs: Vascular congestion and CHF. Small bilateral pleural effusions with bibasilar infiltration and/or atelectasis worse at the left lung base. Fluid is seen in the right major fissure. Bones: Degenerative changes are identified within the thoracic spine. Other: RAD/Chest 1 View (Portable) IMPRESSION: CHF. Small bilateral pleural effusions with bibasilar atelectasis and/or infiltrates. Follow-up recommended. Reading Location: [id number] CC: Dr. El Sumner MD; Dr. Glenny Luque MD ~ Table Assembler: Signed [facility] 06-29-2025 Discharge summary Note Date/Time June 29, 2025 3:13pm [facility] Medical Records Department [address] [place] [address] Emergency Department Summary 06/29/25 MR#: [id number] Acct: [id number] Name: ALVARADO COHEN CALLI Rep #:[id number] : 1945 80 From: El Sumner MD PCP: Dr. Glenny Luque MD Status:RE G ER Location: ED HPI History of Present Illness Chief Complaint: Shortness of Breath Narrative Narrative: 80-year-old female past medical history of COPD, presents with increasing shortness of breath over the last week. She relates history that she was admitted to the hospital for breathing difficulty, and she had a low sodium at the time. She was discharged from the hospital, then states that she had at least a 10 pound weight gain if not currently 18 pounds. She was on Lasix for ashort time, but states since her sodium was low she was taken off of it after 4 days. She endorses increased difficulty breathing over the last week, dry coughthat is nonproductive. No fevers or chills. Positive weight gain and swelling of the legs. She does not wear oxygen at home, but states that she is a former smoker. [facility] Medical History (Updated 06/29/25 @ 15:09 by El Sumner MD) Osteoporosis Kidney disease GI bleed Former smoker GI bleed Renal artery stenosis HTN (hypertension) Home Medications ?Medication ?Instructions ?Recorded ?Last Taken ?Type amlodipine 10 mg tablet 10 mg PO DAILY 03/21/2306/05 History metoprolol succinate 50 mg 50 mg PO BID 08/27/2406/29 History tablet,extended release 24 hr ferrous sulfate 325 mg (65 mg 325 mg PO 1200,1700 #60 tabs 06/06/25 06/29/25 Rx iron) tablet (FeroSul) hydralazine 50 mg tablet 100 mg (2 x 50 mg) PO TID #9 0 tabs 06/06/25 06/29/25 Rx isosorbide dinitrate 20 mg tablet 40 mg (2 x 20 mg) PO TID #90 tabs 06/06/25 06/29/25 Rx pantoprazole 40 mg tablet,delayed 40 mg PO BID #60 tab s 06/06/25 06/29/25 Rx release sucralfate 1 gram tablet 1 g PO 1HR_ACHS #120 tabs 06/29/25 Rx Allergy/AdvReac Type Severity Reaction Status Date / Time codeine Allergy PT UNSURE Verified 05/29/25 12:50 OF REACTION Sulfa (Sulfonamide Allergy Rash Verified 05/29/25 12:50 Antibiotics) (sulfa drugs) Family History Other Asthma Cancer Hypertension Surgical History H/O cone biopsy of cervix (~1977) Social History Smoking Status: Light Smoker (<10/day) Tobacco: How many years used: 40 quit status: considering quitting ROS ROS ED ROS Narrative Review of systems positive for dry cough, increasing dyspnea over the last week,positive weight gain. No fevers or chills. No nausea or vomiting. No chest pain. Increasing shortness of breath. EXAM Physical Exam Narrative Exam Narrative: Afebrile. Vital signs noted. Nontoxic-appearing. Positive tachypnea and respiratory distress. Patient placed on BiPAP prior to being seen and evaluatedwith history and physical. Reported hypoxia in the 70s on room air. Decreased breath sounds bilateral bases. Cardiovascular examination regular rate and rhythm. Abdomen soft and nontender with positive bowel sounds. No guarding or rebound. Mild bilateral pedal edema. Neurological examination nonfocal, nonlateralizing, awake, alert, interactive, answering questions appropriately. Limited secondary to BiPAP. Const Vital Signs: 06/29/25 13:12 06/29/25 13:19 06/29/25 13:20 Temperature 97.2 F L Temperature Source Temporal Pulse Rate 66 Respiratory Rate 24 H Respiratory Effort Labored Accessory Muscle Use Splinting Respiratory Pattern Tachypnea Blood Pressure 199/64 H Blood Pressure Mean 109 Pulse Ox 92 83 Oxygen Delivery Method Nasal Cannula Nasal Cannula Oxygen Flow Rate (L/min) 3 6 Fraction of Inspired Oxygen (FIO2) 06/29/25 13:38 06/29/25 13:46 06/29/25 14:05 Temperature Temperature Source Pulse Rate 68 64 Respiratory Rate 22 H 20 H Respiratory Effort Respiratory Pattern Tachypnea Blood Pressure 206/69 H Blood Pressure Mean 114 Pulse Ox 95 95 97 Oxygen Delivery Method Bi-pap Bi-pap Oxygen Flow Rate (L/min) Fraction of Inspired Oxygen (FIO2) 50 06/29/25 14:13 Temperature Temperature Source Pulse Rate 65 Respiratory Rate 20 H Respiratory Effort Respiratory Pattern Normal Blood Pressure Blood Pressure Mean Pulse Ox Oxygen Delivery Method Oxygen Flow Rate (L/min) Fraction of Inspired Oxygen (FIO2) MDM MDM MDM Narrative Medical decision making narrative: The differential diagnosis includes but not limited to COPD exacerbation versus CHF versus a combination of both versus pneumonia versus pneumothorax versus respiratory failure secondary to hypertensive emergency. She had initial elevated blood pressure 199/64 and was placed on BiPAP. She continued to have elevation of her systolic blood pressure to 206. I ordered hydralazine. Comprehensive workup was pursued. EKG obtained and interpreted by myself independently as normal sinus rhythm at 69 bpm without ectopy or acute ST changes. No STEMI. I have reviewed her initial laboratory work that returned and she has normal white count of 8.6 with hemoglobin stable at 11.5, jlndgiciic35.2, platelet count normal at 289. Chest x-ray interpreted by myself independently shows bilateral pleural effusions, CHF. These are new when compared to prior chest x-ray. I reviewed her echocardiogram from May, and she had an ejection fraction of 65%. She may have more of a COPD exacerbation. She was administered a DuoNeb aerosolized treatment, administered Solu-Medrol as well. In review of her BNP, it is elevated at 10,326, when compared to prior labs, this doubled from last month. She was given Lasix 40 mg intravenously. Upon repeat examination, she is mildly improved. She remains on BiPAP. I discussed the patient with Dr. Conchita Burns for admission to the PCU stepdown. Disposition is admit and stable but guarded condition. History & Record Review Discussion w/independent historian: Patient and Family Additional record(s) reviewed:: Prior inpatient record and Prior labs (BNP doubled in the last month.) Lab Data Attestation: I reviewed the patient's lab results. Labs: Laboratory Results - last 24 hr 06/29/25 13:40 WBC 8.6 RBC 3.80 L Hgb 11.5 L Hct 32.2 L MCV 84.7 MCH 30.3 MCHC 35.7 RDW Std Deviation 46.7 H RDW Coeff of Cathleen 15.0 H Plt Count 289 MPV 9.6 Immature Gran % (Auto) 0.200 Neut % (Auto) 81.7 H Lymph % (Auto) 8.4 L Porter % (Auto) 8.1 Eos % (Auto) 0.9 Baso % (Auto) 0.7 Absolute Neuts (auto) 7.0 Absolute Lymphs (auto) 0.72 L Nucleated RBC % 0 Sodium 124 L Potassium 3.8 Chloride 88 L Carbon Dioxide 21.4 Anion Gap 15 BUN 21 H Creatinine 0.95 Estim Creat Clear Calc 43.69 L Est GFR (MDRD) Non-Af 61 BUN/Creatinine Ratio 22.5 H Glucose 112 H Cal[place] 9.2 [place] [address] H Radiography Chest X-Ray - ED: 1 View, Read by ED Physician, Read by Radiologist, Right Effusion and Left Effusion Diagnostic Testing: Clinical Impression(s) from Imaging Studies Chest X-Ray 06/29/25 13:43 IMPRESSION: CHF. Small bilateral pleural effusions with bibasilar atelectasis and/or infiltrates. Follow-up recommended. Reading Location: [id number] Management Discussion w/another healthcare provider: Hospitalist Discharge Plan Triage Chief Complaint: Shortness of Breath ED Provider: El Sumner Dx/Rx/DC Orders Clinical Impression: Uncontrolled hypertension, Hyponatremia, Bilateral pleural effusion, CHF (congestive heart failure) Prescriptions: No Action metoprolol succinate 50 mg tablet extended release 24 hr 50 mg PO BID amlodipine 10 mg Tablet 10 mg PO DAILY hydralazine 50 mg Tablet 100 mg PO TID Qty: 90 0RF isosorbide dinitrate 20 mg Tablet 40 mg PO TID Qty: 90 0RF pantoprazole 40 mg Tablet,Delayed Release (Dr/Ec) 40 mg PO BID Qty: 60 2RF sucralfate 1 gram Tablet 1 g PO 1HR_ACHS Qty: 120 1RF ferrous sulfate [FeroSul] 325 mg (65 mg iron) Tablet 325 mg PO 1200,1700 Qty: 60 0RF Rx Instructions: Take with orange juice Primary Care Provider: Glenny Luque Referrals: Glenny Luque MD [Primary Care Provider] - Print Language: Arabic What to do if you have Problems For any increased pain, shortness of breath, bleeding, nausea or vomiting, chestpain, or any unexpected problems, contact your Primary Care Provider. Call [facility] ([phone]) or report to the closest Emergency Room. Call 911 if necessary. 06/29/25 1513 <Electronically signed by El Sumner MD> Cosigner Signature (if applicable): CC: Dr. Glenny Luque MD ~ Signed [facility] Work Phone: 1(106) 534-473408-07-2025 NoteHNO ID: [id number] Author: GLENNY LUQUE MD Service: ? Author Type: Physician Type: Progress Notes Filed: 06/10/2025 18:01 Note Text: Transitional Care Management TCM Eligibility Documentation The following information was gathered during patient outreach 06/07/2025 Date of Outreach: Outreach Attempt 1: Contact Made Date of Discharge 06/06/2025 Provider Documentation Alvarado Cohen is a 79 year old female here today for a follow up from recent hospitalization. I have reviewed the patient's hospital course including discharge summary, discharge medications, and follow up needs with the patient and any family members present at today's visit. HPI 7 day TCM Still smoking half ppd or less. Alvarado reports a recent onset of approximately 10 lbs of fluid retention, which she believes began during a recent hospitalization. She notes significant swelling in her feet and ankles, making ambulation difficult and causing discomfort. She also reports dyspnea, particularly in the mornings, describing it as feeling like she is using only the top 1% of my lungs to try to breathe. She experiences near-syncope every 5 minutes when lying flat and sitting up. She denies any pain associated with the fluid retention. Alvarado was recently hospitalized for a week due to severe hyponatremia and gastrointestinal bleeding. She attributes the hospitalization to a new antihypertensive medication, which caused her to feel really bad, with symptoms of lightheadedness, asthenia, and difficulty moving. After consulting with her physician, she discontinued the medication, but her symptoms persisted. Her brother took her to the emergency room, where she was admitted to the ICU with a sodium level of 104 mEq/L. During her hospital stay, she received three blood transfusions and was diagnosed with bleeding ulcers via endoscopy. She is scheduled to follow up with her feltmaker and weigher later this month. Since her discharge, she has been experiencing significant fluid retention. Her roll or tape edge machine operator, Dr. Govea, advised her to discontinue sodium bicarbonate and start Lasix. However, there has been a delay in receiving the Lasix prescription, causing her to be uncertain about whether to resume sodium bicarbonate. She has been instructed to have weekly blood work to monitor her sodium levels and kidney function. Her most recent lab results showed a sodium level in the mid-120s and a creatinine level of approximately 1.3 mg/dL, both of which are improvements from her initial hospitalization levels. Alvarado also reports swelling and warmth in her arm following the removal of an IV during her hospital stay. She was given a two-day course of antibiotics for this but is unsure if the issue has resolved. She denies any worsening of redness or swelling in the arm and does not report any pain. Pt was admitted to [facility] on 05/29/25 and discharged home 06/06/25. She states she is feeling good other than energy level is low still. Appetite ok. Was discharged home on Hydralazine 50 mg taking 100 mg TID, Isosorbide 20 mg, taking 40 mg TID, Pantoprazole 40 mg BID, Sodium Bicarbonate 650 mg 1 pill BID, Sucralfate 1 gram, and Ferrous sulfate 325 mg BID. She was advised to discontinue the Lisinopril 30 mg daily, Chlorthalidone 25 mg and the Hydralazine 25 mg. She was weighted at [facility] office was up 10 lbs at least in the last 4-5 days. She has swelling in the ankles and feet. Does not improve over night. Below copied from [employer]: [facility] Narrative Medical decision making narrative: HISTORY OF [...] estrogen use noted. Denies any bleeding diathesis [facility] Narrative: The patient was initially hypertensive with a blood pressure 185/54 otherwise afebrile and nontoxic-appearing. Exam without focal I considered the following differential diagnosis: ICH, anemia, elec electrolyte disturbance, endorgan damage from elevated blood pressure, ACS, CHF exacerbation I obtained a broad lab and imaging workup to further determine if the patient was suffering from a life-threatening etiology. Initially lamonte (more content not included)...[facility] 06-07-2025 NoteHNO ID: [id number] Author: TIFFANIE RUFF MA Service: ? Author Type: [employer] Type: Progress Notes Filed: 06/07/2025 14:32 Note Text: TRANSITION CARE MANAGEMENT (TCM) INITIAL CONTACT [employer] Outreach Provider Action/FYI: 7 Day TCM Doing ok, feeling ok other than little energy at this time. Eating ok. Initial contact with patient post discharge, spoke to patient June 07, 2025 Patient identified by name and . TRANSITION CARE MANAGEMENT INITIAL OUTREACH DOCUMENTATION: 06/07/2025 Date of Outreach: Outreach Attempt 1: Contact Made Date of Discharge 06/06/2025 SUMMARY: -Pt discharged from [facility] on 06/06/25. -Admitted for: 1) Hypo-osmolar hyponatremia 2) hypomagnesemia 3) Hypokalemia 4) Renal Artery Stenosis 5) Uncontrolled HTN 6) Acute Anemia 7) Gi Bleed 8) lower extremity weakness 9) Paraesthesia lower extremity Below copied from [employer]: MDM Narrative Medical decision making narrative: HISTORY [...] Hospital Course: Patient is a 79-year-old white fema (more content not included)...[facility] History of Present illness Narrative* Tiffanie Ruff MA - 06/07/2025 2:17 PM EDT TRANSITION CARE MANAGEMENT (TCM) INITIAL CONTACT [employer] Outreach Provider Action/FYI: 7 Day TCM Doing ok, feeling ok other than little energy at this time. Eating ok. Initial contact with patient post discharge, spoke to patient June 07, 2025 Patient identified by name and . TRANSITION CARE MANAGEMENT INITIAL OUTREACH DOCUMENTATION: 06/07/2025 Date of Outreach: Outreach Attempt 1: Contact Made Date of Discharge 06/06/2025 SUMMARY: -Pt discharged from [facility] on 06/06/25. -Admitted for: 1) Hypo-osmolar hyponatremia 2) hypomagnesemia 3) Hypokalemia 4) Renal Artery Stenosis 5) Uncontrolled HTN 6) Acute Anemia 7) Gi Bleed 8) lower extremity weakness 9) Paraesthesia lower extremity Below copied from [employer]: MDM Narrative Medical decision making narrative: HISTORY [...] or trauma. She denies any chest pain butnotes some shortness of breath specifically with exertion. [...] to the emergency department was from a hospitalon 05/29/2025 with chief complaint of weakness and lightheadedness. Patient was having increased shortness of breath, swelling, dizziness and weakness for about 4 days prior to presentation. She reported occasional dizziness with standing but denied headache. She had no falls or traumas and has beencompliant with her home antihypertensive regimen however she [...] has been trying to better regulate her antihypertensiveregimen. Patient does have a history of tobacco abuse. She was admitted to the floor and found to have hypoosmolar hyponatremia. Her thiazide diuretic was discontinued and nephrology was consulted. ACT of the chest was performed to rule [...] has close follow-up with Dr. Govea, her roll or tape edge machine operator, on 06/09/2025 with repeat lab being pursued [...] hemostasis following. Ultimately, her hemoglobin did stabilize. Shewill be discharged on Protonix 40 mg p.o. [...] in stable condition with new medications. New prescription s for iron, hydralazine with increased dose, isosorbide dinitrate, Protonix, bicarb, and Carafate were sent to her local pharmacy at the time of discharge she has follow-up on Saturday, I have askedher to call Dr. Valdovinos's office to schedule [...] for provider to review [facility] NotePatient Outreach (FAMPWS) ALVARADO COHEN ([id number]) 1945 F Date Time Provider Department 06/07/25 TIFFANIE RUFF During your visit today, we recorded the following information about you: Tiffanie Ruff MA 06/07/2025 2:32 PM Signed TRANSITION CARE MANAGEMENT (TCM) INITIAL CONTACT [employer] Outreach Provider Action/FYI: 7 Day TCM Doing ok, feeling ok other than little energy at this time. Eating ok. Initial contact with patient post discharge, spoke to patient June 07, 2025 Patient identified by name and . TRANSITION CARE MANAGEMENT INITIAL OUTREACH DOCUMENTATION: 06/07/2025 Date of Outreach: Outreach Attempt 1: Contact Made Date of Discharge 06/06/2025 SUMMARY: -Pt discharged from [facility] on 06/06/25. -Admitted for: 1) Hypo-osmolar hyponatremia 2) hypomagnesemia 3) Hypokalemia 4) Renal Artery Stenosis 5) Uncontrolled HTN 6) Acute Anemia 7) Gi Bleed 8) lower extremity weakness 9) Paraesthesia lower extremity Below copied from [employer]: MDM Narrative Medical decision making narrative: HISTORY [...] symptoms and signs involving the musculoskeletal system (9 (more content not included)...[facility] Hospital Discharge instructionsAdditional Instructions Please be sure to follow-up with Dr. Govea from nephrology as instructed. She will be ordering outpatient labs to be done this week to recheck your kidney function and and your sodium level Date of Discharge: 06/06/25[facility] Work Phone: 1(740) 657-785308-03-2025 Discharge summary [facility] Medical Records Department [address] [place] [address] Discharge Summary 06/06/25 0738 MR#: [id number] Acct: [id number] Name: ALVARADO COHEN Rep #:[id number] : 1945 79 From: Tiffanie Govea DO PCP: Dr. Glenny Luque MD Status:AD M IN Location: [facility] [id number]- [id number] Providers Date of Admission: 05/29/25 Date of [...] 06/01/25 08:11 Consult: Gastroenterology Routine Consulting Provider: [facility] Reason for Consult: Acute anemia with [...] the emergency department was from a hospital 05/29/2025 with chief complaint of weakness and lightheadedness. Patient was having increased shortness of breath, swelling, dizziness and weakness for about 4 days prior to presentation. She reported occasional dizziness with standing but denied headache. She had no falls or traumas and has beencompliant with her home antihypertensive regimen however she does have complex hypertension with history of renal artery stenosis with previous attempted intervention by vascular surgery without success. Vital signs on presentation showed temperature 97.8, heart rate 68, blood pressure seg479/54 with a pulse ox of 96% on room air. CBC showed a normal white count, hemoglobin of 10.2. UA was not suggestive of infection, proBNP was 5274 with a troponin of 20. CMP was markedly abnormal with a serumsodium of 106, potassiumof 3.5, chloride 73, BUN [...] to the floor and found to have h ypoosmolar hyponatremia. Her thiazide diuretic was discontinued and [...] has close follow-up with Dr. Govea, her roll or tape edge machine operator, on 06/09/2025 with repeat lab being pursued and ongoing workup and intervention by nephrology. Her blood pressure medicines werealso altered during her hospitalization. Vascular surgery was reconsulted but given their previous a ttempts deferred any ongoing attempts with recommendations to [...] multiple small bowel AVMs that were treated withheater probe having good hemostasis following. Ultimately, her [...] started bicarb p.o. twice daily and was dischargedon this dose for short-term. Her hospitalization was complex and she finally stabilized on 06/06/2025he was able to be discharged home in stable condition with new medications. New prescriptions for iron, hydralazine with increased dose, isosorbide dinitrate, Protonix, bicarb, and Carafate were sentto her local pharmacy at the time of [...] in bed, appears comfortable well, nontoxic, verypleasant, interactsappropriately General Appearance: cooperative, comfortable, well kempt and [...] Self Care Charges/Coding Visit Charges Inpatient E&M: 34154 Disch Hosp >30min 06/06/25 1241 Cosigner Signature (if applicable): CC: Dr. Nora Govea DO; Dr. Tiffanie Govea DO; Dr. Glenny Luque MD; Juan Manuel Valdovinos DO~ Signed [facility]08-03-2025 Discharge summary Author Tiffanie Govea [facility] Note Date/Time June 06, 2025 12: 41pm [facility] Medical Records Department [address] [place] [address] Discharge Summary 06/06/25 0738 MR#: [id number] Acct: [id number] Name: ALVARADO COHEN Rep #:[id number] : 1945 79 From: Tiffanie Govea DO PCP: Dr. Glenny Luque MD Status:AD M IN [facility] Prov[facility] Date of Admission: 05/29/25 Date of [...] 06/01/25 08:11 Consult: Gastroenterology Routine Consulting Provider: [facility] Reason for Consult: Acute anemia with [...] presented to the emergency department was from hospital on 05/29/2025 with chief complaint of [...] temperature 97.8, heart rate 68, blood pressure rlx051/54 with a pulse ox of 96% on [...] has close follow-up with Dr. Govea, her roll or tape edge machine operator, on 06/09/2025 with repeat lab being pursued [...] times daily for 8 weeks with outpatient follow- up within the nextmonth following with GI. She [...] Self Care Charges/Coding Visit Charges Inpatient E&M: 34852 Disch Hosp >30min 06/06/25 1241 <Electronically signed by Tiffanie Govea DO> Cosigner Signature (if applicable): CC: Dr. Nora Govea DO; Dr. Tiffanie Govea DO; Dr. Glenny Luque MD; Juan Manuel Valdovinos DO~ Signed [facility] Work Phone: 1(249) 424-849108-03-2025 [facility]08-02-2025 Progress note Author Nora Govea [facility] Note Date/Time June 05, 2025 3:5 9pm [facility] Medical Records Department [address] [place] [address] Progress Note - Nephrology 06/04/25 0937 MR#: [id number] Acct: [id number] Name: ALVARADO COHEN Rep #:[id number] : 1945 79 From: Nora Pettit PCP: Dr. Glenny Luque MD Status:AD M IN Location: [place] [id number] Subjective Subjective feeling better, stronger. BP [...] Total 60 / 60 Balance 6.50 / 2096.50 1740 / 1740 240 / [...] Cosigner Signature (if applicable): CC: ~ Signed [facility] Work Phone: 1(303) 515-232508-02-2025 Progress note [facility] Medical Records Department [address] [place] [address] Progress Note - Nephrology 06/04/25 0937 MR#: [id number] Acct: [id number] Name: ALVARADO COHEN CALLI Rep #:[id number] : 1945 79 From: Nora Pettit PCP: Dr. Glenny Luque MD Status:AD M IN Location: [place] [address] Subjective Subjective feeling better, stronger. BP meds [...] 06/03/25 06/04/25 23:59 23:59 23:59 Intake Total 2095.50 / 2095.50 1800 / 1800 240 / 240 Output Total 60 / 60 Balance 2096.50 / 2095.50 1740 / 1740 240 / 240 Lab [...] isordil dose due to low BPs 06/05/25 5949 Cosigner Signature (if applicable): CC: ~ Signed [facility]08-02-2025 Progress note Author Tiffanie Govea [facility] Note Date/Time June 05, 2025 1:2 4pm [facility] Medical Records Department [address] [place] [address] Progress Note - Hospitalist 06/05/25 0819 MR#: [id number] Acct: [id number] Name: ALVARADO COHEN Rep #:[id number] : 1945 79 From: Tiffanie Govea DO PCP: Dr. Glenny Luque MD Status:AD M IN Location: [place] [address] Reason for Visit Chief Complaint: Weakness, lightheadedness, [...] 77.4 H, Lymph % (Auto) 9.5 L, Porter % (Auto) 9.4, Eos % (Auto) 2.6, [...] -Full code Charges/Coding Visit Charges Inpatient E&M: 91573 Subs Hosp L2 06/05/25 1324 <Electronically signed by Tiffanie Govea DO> Cosigner Signature (if applicable): CC: ~ Signed [facility] Work Phone: 1(172) 442-710808-02-2025 Progress note [facility] Medical Records Department [address] [facility] [place] [address] Progress Note - Hospitalist 06/05/25 0819 MR#: [id number] Acct: [id number] Name: ALVARADO COHEN Rep #:[id number] : 1945 79 From: Tiffanie Govea DO PCP: Dr. Glenny Luque MD Status:AD M IN Location: [place] [address] Reason for Visit Chief Complaint: Weakness, lightheadedness, [...] 77.4 H, Lymph % (Auto) 9.5 L, Porter % (Auto) 9.4, Eos % (Auto) 2.6, [...] discharge tomorrow as long as sodium is grxy889 with the next 2 labs -Repeat sodium [...] -Full code Charges/Coding Visit Charges Inpatient E&M: 02478 Subs Hosp L2 06/05/25 1324 Cosigner Signature (if applicable): CC: ~ Signed [facility]08-01-2025 Progress note Author Tiffanie Govea [facility] Note Date/Time June 04, 2025 4:5 9pm [facility] Medical Records Department [address] [place] [address] Progress Note - Hospitalist 06/04/25 0817 MR#: [id number] Acct: [id number] Name: ALVARADO COHEN Rep #:[id number] : 1945 79 From: Tiffanie Govea DO PCP: Dr. Glenny Luque MD Status:AD M IN Location: [place] [address] Reason for Visit Chief Complaint: Weakness, lightheadedness, [...] -Full code Charges/Coding Visit Charges Inpatient E&M: 82180 Subs Hosp L2 06/04/25 9775 <Electronically signed by Tiffanie Govea DO> Cosigner Signature (if applicable): CC: ~ Signed [facility] Work Phone: 1(729) 338-847708-01-2025 Progress note [facility] Medical Records Department [address] [place] [address] Progress Note - Hospitalist 06/04/25816 MR#: [id number] Acct: [id number] Name: ALVARADO COHEN Rep #:[id number] : 1945 79 From: Tiffanie Govea DO PCP: Dr. Glenny Luque MD Status:AD M IN Location: [place] [address]- Reason for Visit Chief Complaint: Weakness, lightheadedness, [...] -Full code Charges/Coding Visit Charges Inpatient E&M: 37285 Subs Hosp L2 06/04/25 1657 Cosigner Signature (if applicable): CC: ~ Signed [facility]08-01-2025 Progress note Author Nora Govea [facility] Note Date/Time June 04, 2025 9:3 6am [facility] Medical Records Department [address] [place] [address] Progress Note - Nephrology 06/02/2511 MR#: [id number] Acct: [id number] Name: ALVARADO COHEN Rep #:[id number] : 1945 79 From: Nora Pettit PCP: Dr. Glenny Luque MD Status:AD M IN Location: [place] [address] Subjective Subjective sodium 123 today, s/p endoscopy [...] Cosigner Signature (if applicable): CC: ~ Signed [facility] Work Phone: 1(957) 967-208108-01-2025 Progress note Author Nora [facility] Note Date/Time June 04, 2025 9:[address] [facility] Medical Records Department [address] [place] [address] Progress Note - Nephrology 06/03/25 1006 MR#: [id number] Acct: [id number] Name: ALVARADO COHEN Rep #:[id number] : 1945 79 From: Nora Pettit PCP: Dr. Glenny Luque MD Status:AD M IN Location: [place] [address] Subjective Subjective episode of hypotension with leg [...] Balance 668.08 / 668.08 2095.50 / 2095.50 -60 / -60 Lab / [...] also mild-moderate bilaterally at L5-S1. Reading Location: [facility] Physical Exam Const alert and oriented [...] Cosigner Signature (if applicable): CC: ~ Signed [facility] Work Phone: 1(945) 183-650108-01-2025 Progress note [facility] Medical Records Department [address] [place] [address] Progress Note - Nephrology 06/02/25 0811 MR#: [id number] Acct: [id number] Name: ALVARADO COHEN Rep #:[id number] : 1945 79 From: Nora Pettit PCP: Dr. Glenny Luque MD Status:AD M IN Location: [place] [address] Subjective Subjective sodium 123 today, s/p endoscopy [...] MPV 9.5, Sodium 123 L, Potassium 3.9, Uatvwdvz75 L, Carbon Dioxide 23.0, Anion Gap 9, [...] Cosigner Signature (if applicable): CC: ~ Signed [facility]08-01-2025 Progress note [facility] Medical Records Department [address] [facility] [place] [address] Progress Note - Nephrology 06/03/25 1006 MR#: [id number] Acct: [id number] Name: ALVARADO COHEN CALLI Rep #:[id number] : 1945 79 From: Nora Pettit PCP: Dr. Glenny Luque MD Status:AD M IN Location: [place] [address] Subjective Subjective episode of hypotension with leg [...] 23:59 23:59 Intake Total 668.08 / 668.08 6.50 / 2095.50 Output Total 60 / 60 [...] also mild-moderate bilaterally at L5-S1. Reading Location: [facility] Physical Exam Const alert and oriented [...] Cosigner Signature (if applicable): CC: ~ Signed [facility]07-31-2025 Progress note Author Tiffanie Govea [facility] Note Date/Time June 03, 2025 4:51 pm [facility] Medical Records Department [address] [place] [address] Progress Note - Hospitalist 06/03/25 1622 MR#: [id number] Acct: [id number] Name: ALVARADO COHEN CALLI Rep #:[id number] : 1945 79 From: Tiffanie Govea DO PCP: Dr. Glenny Luque MD Status:AD M IN Location: [place] [address] Reason for Visit Chief Complaint: Weakness, lightheadedness, [...] Intake and Output for Last 24 Hours 07/29/25 07/30/25 07/31/25 23:59 23:59 23:59 Intake Total 668.08 / [...] also mild-moderate bilaterally at L5-S1. Reading Location: [facility] Physical Exam Narrative Low Const alert, [...] -Full code Charges/Coding Visit Charges Inpatient E&M: 32851 Subs Hosp L3 06/03/25 1651 <Electronically signed by Tiffanie Govea DO> Cosigner Signature (if applicable): CC: ~ Signed [facility] Work Phone: 1(552) 807-234407-31-2025 Progress note [facility] Medical Records Department [address] [place] [address] Progress Note - Hospitalist 06/03/25 1622 MR#: [id number] Acct: [id number] Name: ALVARADO COHEN Rep #:[id number] : 1945 79 From: Tiffanie Govea DO PCP: Dr. Glenny Luque MD Status:AD M IN Location: [place] [address] Reason for Visit Chief Complaint: Weakness, lightheadedness, [...] 23:59 23:59 Intake Total 668.08 / 668.08 2096.50 / 2095.50 1800 / 1800 Output Total [...] also mild-moderate bilaterally at L5-S1. Reading Location: [facility] Physical Exam Narrative Low Const alert, [...] -Full code Charges/Coding Visit Charges Inpatient E&M: 03325 Subs Hosp L3 06/03/25 1651 Cosigner Signature (if applicable): CC: ~ Signed [facility]07-30-2025 Progress note Author Tiffanie Govea [facility] Note Date/Time June 02, 2025 4:43 pm [facility] Medical Records Department [address] [place] [address] Progress Note - Hospitalist 06/02/25 0755 MR#: [id number] Acct: [id number] Name: ALVARADO COHEN Rep #:[id number] : 1945 79 From: Tiffanie Govea DO PCP: Dr. Glenny Luque MD Status:AD M IN Location: [place] [address] Reason for Visit Chief Complaint: Weakness, lightheadedness, [...] -Full code Charges/Coding Visit Charges Inpatient E&M: 00404 Subs Hosp L2 06/02/25 8299 <Electronically signed by Tiffanie Govea DO> Cosigner Signature (if applicable): CC: ~ Signed [facility] Work Phone: 1(813) 766-715507-30-2025 Progress note [facility] Medical Records Department [address] [place] [address] Progress Note - Hospitalist 06/02/25 0755 MR#: [id number] Acct: [id number] Name: ALVARADO COHEN Rep #:[id number] : 1945 79 From: Tiffanie Govea DO PCP: Dr. Glenny Luque MD Status:AD M IN Location: [place] [address] Reason for Visit Chief Complaint: Weakness, lightheadedness, [...] MPV 9.5, Sodium 123 L, Potassium 3.9, Ixtlwwtf90 L, Carbon Dioxide 23.0, Anion Gap 9, [...] -Full code Charges/Coding Visit Charges Inpatient E&M: 46934 Subs Hosp L2 06/02/25 1643 Cosigner Signature (if applicable): CC: ~ Signed [facility]07-29-2025 Consult note Author Jaspreet Fraire [facility] Note Date/Time June 01, 2025 8:33 pm [facility] Medical Records Department [address] [place] [address] Anesthesia Postop Eval II 06/01/252027 MR#: [id number] Acct: [id number] Name: ALVARADO COHEN CALLI Rep #:[id number] : 1945 79 From: Jaspreet Fraire MD PCP: Dr. Glenny Luque MD Status:AD M IN Y Race: C Location: [address] Anesthesia Postop Eval I Sum Postop Eval Completion status Anesthesia document: Postop Eval 1 completed: Yes Anesthesia Postop Eval I Summary Anesthesia Postop Eval I Summary: Anesthesia Postop Eval I: Assessment Summary Airway patent Yes 06/01/25 16:23 APPLIANCE REPAIR TECHNICIAN.APAT Spontaneous unlabored Yes 06/01/25 16:23 APPLIANCE REPAIR TECHNICIAN.APAT respirations Mental status Asleep 06/01/25 16:23 APPLIANCE REPAIR TECHNICIAN.APAT nausea No 06/01/25 16:23 APPLIANCE REPAIR TECHNICIAN.APAT Vomiting No 06/01/25 16:23 APPLIANCE REPAIR TECHNICIAN.APAT Anesthesia Postop Eval I: Fluid Summary Crystalloid volume administer 400 06/01/25 16:23 APPLIANCE REPAIR TECHNICIAN.APAT (ml) Colloids volume administered ( ml) Blood Product volume administered (ml) Total IV fluid infused 400 06/01/25 16:23 APPLIANCE REPAIR TECHNICIAN.APAT Anesthesia Postop Eval I: Summary Notes Anesthesia Complication No 06/01/25 16:23 APPLIANCE REPAIR TECHNICIAN.APAT Anesthesia Complication Comment: Post-operative progress note Anesthesia: Postop Eval II Evaluation Mental status: Awake and Calm Pain Level: 0 nausea: No Vomiting: No Complications Anesthesia Complication: No 06/01/252032 <Electronically signed by Jaspreet ma MD> Date _ Jaspreet Fraire MD Cosigner Signature: Date CC: ~ Signed [facility] Work Phone: 1(931) 689-481107-29-2025 Consult note [facility] Medical Records Department [address] [place] [address] Anesthesia Postop Eval II 06/01/252027 MR#: [id number] Acct: [id number] Name: ALVARADO COHEN Rep #:[id number] : 1945 79 From: Jaspreet Fraire MD PCP: Dr. Glenny Luque MD Status:AD M IN Y Race: C Location: [address] Anesthesia Postop Eval I Sum Postop Eval Completion status Anesthesia document: Postop Eval 1 completed: Yes Anesthesia Postop Eval I Summary Anesthesia Postop Eval I Summary: Anesthesia Postop Eval I: Assessment Summary Airway patent Yes 06/01/25 16:23 APPLIANCE REPAIR TECHNICIAN.APAT Spontaneous unlabored Yes 06/01/25 16:23 APPLIANCE REPAIR TECHNICIAN.APAT respirations Mental status Asleep 06/01/25 16:23 APPLIANCE REPAIR TECHNICIAN.APAT nausea No 06/01/25 16:23 APPLIANCE REPAIR TECHNICIAN.APAT Vomiting No 06/01/25 16:23 APPLIANCE REPAIR TECHNICIAN.APAT Anesthesia Postop Eval I: Fluid Summary Crystalloid volume administer 400 06/01/25 16:23 APPLIANCE REPAIR TECHNICIAN.APAT (ml) Colloids volume administered ( ml) Blood Product volume administered (ml) Total IV fluid infused 400 06/01/25 16:23 APPLIANCE REPAIR TECHNICIAN.APAT Anesthesia Postop Eval I: Summary Notes Anesthesia Complication No 06/01/25 16:23 APPLIANCE REPAIR TECHNICIAN.APAT Anesthesia Complication Comment: Post-operative progress note Anesthesia: Postop Eval II Evaluation Mental status: Awake and Calm Pain Level: 0 nausea: No Vomiting: No Complications Anesthesia Complication: No 06/01/252032 francesca RUELAS> Date _ Jaspreet Fraire MD Cosigner Signature: Date CC: ~ Signed [facility]07-29-2025 Consult note Author Porfirio Mei [facility] Note Date/Time June 01, 2025 5:[address] [facility] Medical Records Department [address] [facility] [place] [address] Consultation - Surgical 06/01/25 1745 MR#: [id number] Acct: [id number] Name: ALVARADO COHEN CALLI Rep #:[id number] : 1945 79 From: Porfirio Mei MD PCP: Dr. Glenny Luque MD Status:AD M IN Location: [place] [address] Assessment & Plan Assessment/Plan (1) Renal artery [...] to have anemia, UGI bleed treated endoscopically [facility] Medical History Renal artery stenosis HTN [...] 72.0 H, Lymph % (Auto) 14.4 L, Porter % (Auto) 11.4 H, Eos % (Auto) [...] Sodium 23 Charges/Coding Visit Charges Inpatient E&M: 97545 Init Hosp L1 06/01/25 4258 <Electronically signed by Porfirio Mei MD> Cosigner Signature (if applicable): CC: Dr. Glenny Luque MD~ Signed [facility] Work Phone: [phone] Consult note Author Narendra Galeano [facility] Note Date/Time June 01, 2025 4:23 pm [facility] Medical Records Department [address] [place] [address] Anesthesia Postop Eval I 06/01/251621 MR#: [id number] Acct: [id number] Name: NOELALVARADO CALLI Rep #:[id number] : 1945 79 From: Narendra Galeano CRNA PCP: Dr. Glenny Luque MD Status:AD M IN Y Race: C Location: [place] [address] Anesthesia: Postop Eval I Current Vital Signs [...] CRNA Cosigner Signature: Date CC: ~ Signed [facility] Work Phone: [phone] 618-723207-29-2025 Consult note [facility] Medical Records Department [address] [place] [address] Consultation - Surgical 06/01/251744 MR#: [id number] Acct: [id number] Name: ALVARADO COHEN CALLI Rep #:[id number] : 1945 79 From: Porfirio Mei MD PCP: Dr. Glenny Luque MD Status:AD M IN Location: [facility] [id number] Assessment & Plan Assessment/Plan (1) Renal [...] to have anemia, UGI bleed treated endoscopically [facility] Medical History Renal artery stenosis HTN [...] 72.0 H, Lymph % (Auto) 14.4 L, Porter % (Auto) 11.4 H, Eos % (Auto) [...] Sodium 23 Charges/Coding Visit Charges Inpatient E&M: 22335 Init Hosp L1 06/01/25 175 Cosigner Signature (if applicable): CC: Dr. Glenny Luque MD~ Signed [facility]07-29-2025 Consult note Author Juan Manuel Valdovinos [facility] Note Date/Time June 01, 2025 3:[address] [facility] Medical Records Department [address] [place] [address] Consultation - GI 06/01/25 1515 MR#: [id number] Acct: [id number] Name: ALVARADO COHEN CALLI Rep #:[id number] : 1945 79 From: Juan Manuel Valdovinos DO PCP: Dr. Glenny Luque MD Status:AD M IN Location: [place] [address] HPI Consult Data Date of Consult: 06/01/25 HPI Narrative Reason for Consultation: Anemia HPI Narrative: ALVARADO COHEN, is a 79-year-old female history of hypertension and renal artery stenosis presented [facility] ED 05/29/2025 with increased shortness of breath, [...] today. Last sodium 131 on 04/02/25 from [facility]. She has been on chlorthalidone skilled nursing. Recently started on doxazosinfor uncontrolled hypertension in May then stopped after intolerance to it with weakness, swelling. I was asked to see her due to decreasing hemoglobin from 10.2 down to 6.6. She does endorse dark stools. [facility] Medical History Renal artery stenosis HTN [...] 72.0 H, Lymph % (Auto) 14.4 L, Porter % (Auto) 11.4 H, Eos % (Auto) [...] of 3. Charges/Coding Visit Charges Inpatient E&M: 07625 Init Hosp L2 06/01/25 1535 <Electronically signed by Juan Manuel Valdovinos DO> Cosigner Signature (if applicable): CC: Dr. Glenny Luque MD~ Signed [facility] Work Phone: [phone] Consult note Author Jaspreet Fraire [facility] Note Date/Time June 01, 2025 2:36 pm [facility] Medical Records Department [address] [place] [address] Pre-Anesthesia Evaluation 06/01/25 1421 MR#: [id number] Acct: [id number] Name: ALVARADO COHEN CALLI Rep #:[id number] : 1945 79 From: Jaspreet Fraire MD PCP: Dr. Glenny Luque MD Status:AD M IN Y Race: C Location: [place] [address] 9 ASA Classification* ASA Classification ASA Classification: 3 [...] possible biopsies. Anesthesia History Anesthesia History - local announcer: Anesthesia History - local announcer Hx Hospitalization Any Problems With Anesthesia Cholinesterase [...] take am of surgery PONV PONV - local announcer: PONV - local announcer Female HX of Motion Sickness HX of N/V After Surgery Non-Smoker Duration of Surgery greater than 60 minutes Number of Risk Factors PONV Score Height & Weight Height & Weight: Anesthesia: Height & Weight Height 5 ft 3 in 06/01/25 13:34 Weight: 55.338 kg 06/01/25 13:34 Body Mass Index (BMI) 21.6 06/01/25 13:34 Respiratory Assessment Respiratory Assessment - local announcer: Respiratory Tract Infection Hx - local announcer Hx Respiratory Tract Infection Any additional information?: Yes Hx Respiratory Tract Infection: No STOP Sleep Apnea STOP Sleep Apnea - local announcer: STOP Sleep Apnea - local announcer Hx Hypertension Yes 05/30/25 10:12 Hx Sleep [...] Tobacco Use History Tobacco Use History - local announcer: Tobacco Use History - local announcer Tobacco Use Smoking Status Light Smoker (<10/day) 05/30/25 15:03 Hx Tobacco Use Yes 05/29/25 17:13 Years Smoking 50 05/29/25 17:13 Packs Smoked per Day Smoking Cessation Date was within the last 15 years Hx Smoking Cessation Date Hx Smoking Cessation No 05/29/25 17:13 Counseling Hematologic Medial History Hematologic Hx - local announcer: Hematologic Medical Hx - back panel padder Hx of Blood Transfusion No 05/29/25 17:13 [...] confused, unrespo /Reproduction History /Reproductive History - local announcer: /Reproductive Hx- local announcer Hx Now Gestational Age (in weeks): EDC: [...] mls @ 15 mls/hr 05/29/25 17:17 IV .[id number] PRN Saline Flush Sodium Chloride 250 mls @ 15 mls/hr 05/29/25 17:17 IV .[id number] PRN Additional IVPB Infusion Pantoprazole Sodium 80 [...] 20 ml UD PRN Administration SALINE FLUSH [facility] Medical History Renal artery stenosis HTN [...] no additional complaints, except as documented. 06/01/25 9063 <Electronically signed by Jaspreet ma MD> Date _ Jaspreet Gallego Signature: Date CC: ~ Signed [facility] Work Phone: [phone]) [phone] Procedure note [facility] Medical Records Department [address] [place] [address] EGD Report MR#: [id number] Acct: [id number] Name: ALVARADO COHEN Rep #:[id number] : 1945 79 From: Juan Manuel Valdovinos [...] capsule endoscopy Procedure Code(s): --- Professional --- 03156, 59, Small intestinal endoscopy, enteroscopy beyond second portion of duodenum, not including ileum; with control of bleeding (eg, injection, bipolar cautery, unipolar cautery, laser, heater probe, stapler, plasma donor specialist) 36346, 51, Small intestinal endoscopy, enteroscopy beyond second portion of duodenum, not including ileum; with biopsy, single or multiple CPT copyright 2021 [employer] [place] [employer]. All rights reserved. The codes documented in this report are preliminary and upon plate mill hand review may be revised to meet current compliance requirements. Juan Manuel Valdovinos DO 06/01/2025 4:28:05 PM This report has been signed electronically. Number of Addenda: 0 Note Initiated On: 06/01/2025 3:41 PM 06/01/25 1628 Date _ Juan Manuel Valdovinos DO Cosigner Signature: Date (if indicated) CC: Dr. Glenny Luque MD; Juan Manuel Valdovinos DO ~ Date Dictated: 06/01/25 1541 Date Transcribed: Table Assembler: RF Signed [facility]07-29-2025 Procedure note [facility] Medical Records Department [address] [place] [address] Provation Physician Letter MR#: [id number] Acct: [id number] Name: ALVARADO COHEN CALLI Rep #:[id number] : 1945 79 From: Juan Manuel Valdovinos DO PCP: Dr. Glenny Luque MD Status:AD M IN 06/01/2025 Glenny Luque [address] [place] [address] Re : Upper GI endoscopy procedure for [...] has been signed electronically. 06/01/25 1628 Date _ Juan Manuel Valdovinos DO Cosigner Signature: Date (if indicated) CC: Dr. Nora Govea DO; Dr. Porfirio Mei MD; Dr. Tiffanie Govea DO; Dr. Glenny Luque MD; Dr. Glenny Wetzel DO; Dr. Conchita Burns MD ~ Date Dictated: 06/01/25 1541 Date Transcribed: Table Assembler: RF Signed [facility]07-29-2025 Progress note Author Tiffanie Goeva [facility] Note Date/Time June 01, 2025 2:25 pm [facility] Medical Records Department [address] [place] [address] Progress Note - Hospitalist 06/01/25 0813 MR#: [id number] Acct: [id number] Name: ALVARADO COHEN CALLI Rep #:[id number] : 1945 79 From: Tiffanie Govea DO PCP: Dr. Glenny Luque MD Status:AD M IN Location: [facility] [id number] 1 Reason for Visit Chief Complaint: Weakness, [...] (Auto) 75.3 H, Lymph % (Auto) 12.5L, Porter % (Auto) 10.2 H, Eos % (Auto) [...] 72.0 H, Lymph % (Auto) 14.4 L, Porter % (Auto) 11.4 H, Eos % (Auto) [...] changes. There are free-flowing bilateral pleural effusions, mfyt-yisioyl-mudf-right with associated atelectasis and perhaps associated infiltrate in the left lung base. Follow-up recommended to ensure resolution No suspicious noncalcified mass or nodule No suspicious enlarged axillary, mediastinal or perihilar lymph nodes Enlarged thyroid with low-density nodules suggesting goiter Degenerative bony changes Reading Location: [facility] Physical Exam Const alert, oriented x3, no [...] of admission Charges/Coding Visit Charges Inpatient E&M: 38043 Subs Hosp L2 06/01/25 1422 <Electronically signed by Tiffanie Govea DO> Cosigner Signature (if applicable): CC: ~ Signed [facility] Work Phone: 1([phone]) 105-504407-29-2025 Consult note [facility] Medical Records Department [address] [place] [address] Anesthesia Postop Eval I 06/01/25 162 MR#: [id number] Acct: [id number] Name: ALVARADO COHEN CALLI Rep #:[id number] : 1945 79 From: Narendra Galeano CRNA PCP: Dr. Glenny Luque MD Status:AD M IN Y Race: C Location: [address] Anesthesia: Postop Eval I Current Vital [...] Eval 1 completed: Yes 06/01/25 1623 n APPLIANCE REPAIR TECHNICIAN> Date _ Narendra Galeano CRNA Cosigner Signature: Date CC: ~ Signed [facility]07-29-2025 Consult note [facility] Medical Records Department [address] [place] [address] Consultation - GI 06/01/25 1515 MR#: [id number] Acct: [id number] Name: AVLARADO COHEN CALLI Rep #:[id number] : 1945 79 From: Juan Manuel Valdovinos DO PCP: Dr. Glenny Luque MD Status:AD M IN Location: [place] [id number] HPI Consult Data Date of Consult: 06/01/25 HPI Narrative Reason for Consultation: Anemia HPI Narrative: ALVARADO COHEN, is a 79-year-old female history of hypertension and renal artery stenosis presented [facility] ED 05/29/2025 with increased shortness of breath, [...] from [facility]. She has been on chlorthalidone skilled nursing. Recently startedon doxazosinfor uncontrolled hypertension in May then stopped after intolerance to it with weakness, swelling. I was asked to see her due to decreasing hemoglobin from 10.2 down to 6.6. She does endorse dark stools. [facility] Medical History Renal artery stenosis HTN [...] 72.0 H, Lymph % (Auto) 14.4 L, Porter % (Auto) 11.4 H, Eos % (Auto) [...] of 3. Charges/Coding Visit Charges Inpatient E&M: 26584 Init Hosp L2 06/01/25 1535 Cosigner Signature (if applicable): CC: Dr. Glenny Luque MD~ Signed [facility]07-29-2025 Consult note [facility] Medical Records Department [address] [place] [address] Pre-Anesthesia Evaluation 06/01/25 1421 MR#: [id number] Acct: [id number] Name: ALVARADO COHEN Rep #:[id number] : 1945 79 From: Jaspreet Fraire MD PCP: Dr. Glenny Luque MD Status:AD M IN Y Race: C Location: [place] [address] ASA Classification* ASA Classification ASA Classification: 3 [...] possible biopsies. Anesthesia History Anesthesia History - local announcer: Anesthesia History - local announcer Hx Hospitalization Any Problems With Anesthesia Cholinesterase [...] take am of surgery PONV PONV - local announcer: PONV - local announcer Female HX of Motion Sickness HX of N/V After Surgery Non-Smoker Duration of Surgery greater than 60 minutes Number of Risk Factors PONV Score Height & Weight Height & Weight: Anesthesia: Height & Weight Height 5 ft 3 in 06/01/25 13:34 Weight: 55.338 kg 06/01/25 13:34 Body Mass Index (BMI) 21.6 06/01/25 13:34 Respiratory Assessment Respiratory Assessment - local announcer: Respiratory Tract Infection Hx - local announcer Hx Respiratory Tract Infection Any additional information?: Yes Hx Respiratory Tract Infection: No STOP Sleep Apnea STOP Sleep Apnea - local announcer: STOP Sleep Apnea - local announcer Hx Hypertension Yes 05/30/25 10:12 Hx Sleep [...] Tobacco Use History Tobacco Use History - local announcer: Tobacco Use History - local announcer Tobacco Use Smoking Status Light Smoker (<10/day) 05/30/25 15:03 Hx Tobacco Use Yes 05/29/25 17:13 Years Smoking 50 05/29/25 17:13 Packs Smoked per Day Smoking Cessation Date was within the last 15 years Hx Smoking Cessation Date Hx Smoking Cessation No 05/29/25 17:13 Counseling Hematologic Medial History Hematologic Hx - local announcer: Hematologic Medical Hx - back panel padder Hx of Blood Transfusion No 05/29/25 17:13 [...] confused, unrespo /Reproduction History /Reproductive History - local announcer: /Reproductive Hx- local announcer Hx Now Gestational Age (in weeks): EDC: [...] mls @ 15 mls/hr 05/29/25 17:17 IV .[id number] PRN Saline Flush Sodium Chloride 250 mls @ 15 mls/hr 05/29/25 17:17 IV .[id number] PRN Additional IVPB Infusion Pantoprazole Sodium 80 [...] Meq PO 06/01/25 23:59 Not Given DAILYCM [facility] Senna/Docusate Sodium 2 tablet 05/29/25 16:58 05/30/25 08:36 Senna/Docusate Sodium 1 Tablet PO 2 tablet BID PRN PRN Administration Constipation Sodium Chloride 10 - 40 ml 05/29/25 17:17 05/31/25 05:07 0.9% Saline Lock 10 Ml Syringe IV 20 ml UD PRN Administration SALINE FLUSH [facility] Medical History Renal artery stenosis HTN [...] MD Cosigner Signature: Date CC: ~ Signed [facility]07-29-2025 Progress note [facility] Medical Records Department [address] [place] [address] Progress Note - Hospitalist 06/01/25812 MR#: [id number] Acct: [id number] Name: ALVARADO COHEN Rep #:[id number] : 1945 79 From: Tiffanie Govea DO PCP: Dr. Glenny Luque MD Status:AD M IN Location: [place] [address] Reason for Visit Chief Complaint: Weakness, lightheadedness, [...] (Auto) 75.3 H, Lymph % (Auto) 12.5L, Porter % (Auto) 10.2 H, Eos % (Auto) [...] 72.0 H, Lymph % (Auto) 14.4 L, Porter % (Auto) 11.4 H, Eos % (Auto) [...] changes. There are free-flowing bilateral pleural effusions, ofpq-fhtyehu-clka-right with associated atelectasis and perhaps associated infiltrate in the left lung base. Follow-up recommended to ensure resolution No suspicious noncalcified mass or nodule No suspicious enlarged axillary, mediastinal or perihilar lymph nodes Enlarged thyroid with low-density nodules suggesting goiter Degenerative bony changes Reading Location: [facility] Physical Exam Const alert, oriented x3, no [...] of admission Charges/Coding Visit Charges Inpatient E&M: 76839 Subs Hosp L2 06/01/25 1425 Cosigner Signature (if applicable): CC: ~ Signed [facility]07-29-2025 Progress note Author Nora Govea [facility] Note Date/Time June 01, 2025 7:[address] [facility] Medical Records Department [address] [place] [address] Progress Note - Nephrology 05/31/25 1125 MR#: [id number] Acct: [id number] Name: ALVARADO COHEN Rep #:[id number] : 1945 79 From: Nora Pettit PCP: Dr. Glenny Luque MD Status:AD M IN Location: [place] [address] Subjective Subjective complains of weakness, unsteady gait. Denied nausea but has anorexia. Sodium lowat 106 on admit to 110 today. Last sodium 131 on 04/02/25 from [facility]. She has been on chlorthalidone skilled nursing. Recently started on doxazosin for uncontrolled hypertension [...] (Auto) 75.3 H, Lymph % (Auto) 12.5L, Porter % (Auto) 10.2 H, Eos % (Auto) [...] changes. There are free-flowing bilateral pleural effusions, zsiy-kxorpkd-hdjz-right with associated atelectasis and perhaps associated infiltrate in the left lung base. Follow-up recommended to ensure resolution No suspicious noncalcified mass or nodule No suspicious enlarged axillary, mediastinal or perihilar lymph nodes Enlarged thyroid with low-density nodules suggesting goiter Degenerative bony changes Reading Location: [facility] Physical Exam Const alert and oriented x3 [...] Cosigner Signature (if applicable): CC: ~ Signed [facility] Work Phone: 1(377) 886-161607-29-2025 Progress note [facility] Medical Records Department [address] [place] [address] Progress Note - Nephrology 05/31/25 1125 MR#: [id number] Acct: [id number] Name: ALVARADO COHEN Rep #:[id number] : 1945 79 From: Nora Pettit PCP: Dr. Glenny Luque MD Status:AD M IN Location: [place] [address] Subjective Subjective complains of weakness, unsteady gait. Denied nausea but has anorexia. Sodium lowat 106 on admit to 110 today. Last sodium 131 on 04/02/25 from [facility]. She has been on chlorthalidone skilled nursing. Recently started on doxazosin for uncontrolled hypertension [...] (Auto) 75.3 H, Lymph % (Auto) 12.5L, Porter % (Auto) 10.2 H, Eos % (Auto) [...] changes. There are free-flowing bilateral pleural effusions, aloz-mbzgbdd-sots-right with associated atelectasis and perhaps associated infiltrate in the left lung base. Follow-up recommended to ensure resolution No suspicious noncalcified mass or nodule No suspicious enlarged axillary, mediastinal or perihilar lymph nodes Enlarged thyroid with low-density nodules suggesting goiter Degenerative bony changes Reading Location: [facility] Physical Exam Const alert and oriented x3 [...] Cosigner Signature (if applicable): CC: ~ Signed [facility]07-28-2025 Progress note Author Tiffanie Govea [facility] Note Date/Time May 31, 2025 2:[address] [facility] Medical Records Department [address] [place] [address] Progress Note - Hospitalist 05/31/25 0806 MR#: [id number] Acct: [id number] Name: ALVARADO COHEN Rep #:[id number] : 1945 79 From: Tiffanie Govea DO PCP: Dr. Glenny Luque MD Status:AD M IN Location: [address] 1 Reason for Visit Chief Complaint: Weakness, [...] of admission Charges/Coding Visit Charges Inpatient E&M: 26865 Subs Hosp L2 05/31/25 1401 <Electronically signed by Tiffanie Govea DO> Cosigner Signature (if applicable): CC: ~ Signed [facility] Work Phone: 1(983) 956-558907-28-2025 Progress note [facility] Medical Records Department [address] [place] [address] Progress Note - Hospitalist 05/31/25 0806 MR#: [id number] Acct: [id number] Name: ALVARADO COHEN Rep #:[id number] : 1945 79 From: Tiffanie Govea DO PCP: Dr. Glenny Luque MD Status:AD M IN Location: [place] [address] Reason for Visit Chief Complaint: Weakness, lightheadedness, [...] of admission Charges/Coding Visit Charges Inpatient E&M: 91880 Subs Hosp L2 05/31/25 1401 Cosigner Signature (if applicable): CC: ~ Signed [facility]07-28-2025 Radiology Diagnostic study note [facility] Imaging Services [address] [place], [place] [address] Chest without Contrast MR#: [id number] Acct: [id number] Name: ALVARADO COHEN Rep #: [id number] : 1945 F 79 From: Rodger Richards MD PCP: Dr. Glenny Luque MD Status: AD M IN Study:Chest without Contrast Date of Exam: 05/31/25 Exam# [id number] Ordering Dr: Ros Govea DO PROCEDURE: CT [...] changes. There are free-flowing bilateral pleural effusions, qykz-jricnbe-pmau-right with associated atelectasis and perhaps associated infiltrate in the left lung base. Follow-up recommended to ensure resolution No suspicious noncalcified mass or nodule No suspicious enlarged axillary, mediastinal or perihilar lymph nodes Enlarged thyroid with low-density nodules suggesting goiter Degenerative bony changes Reading Location: [id number] CC: Dr. Tiffanie Govea DO; Dr. Glenny Luque MD ~ Table Assembler: Signed [facility]07-27-2025 Progress note Author Glenny [facility] Note Date/Time May 30, 2025 3:39 pm [facility] Medical Records Department [address] [place] [address] Progress Note - Hospitalist 05/30/25 1514 MR#: [id number] Acct: [id number] Name: ALVARADO COHEN Rep #:[id number] : 1945 79 From: Glenny Wetzel DO [...] 05/30/25 14:00 05/30/25 14:00 05/30/25 14:00 05/30/25 14:05/30/25 14:00 Oxygen Delivery Method Room Air Weight: 57.7 kg Body Mass Index (BMI) 22.5 Intake & Output: Intake and Output for Last 24 Hours 07/25/25 07/26/25 07/27/25 23:59 23:59 23:59 Intake Total 649.35 / [...] (Auto) 77.3 H, Lymph % (Auto) 12.1L, Porter % (Auto) 8.9, Eos % (Auto) 0.9, [...] 35 minutes Charges/Coding Visit Charges Inpatient E&M: 19744 Subs Hosp L2 05/30/25 1539 <Electronically signed by Glenny Wetzel DO> Cosigner Signature (if applicable): CC: ~ Signed [facility] Work Phone: 1(501) 532-900907-27-2025 Progress note [facility] Medical Records Department [address] [place] [address] Progress Note - Hospitalist 05/30/25 1514 MR#: [id number] Acct: [id number] Name: ALVARADO COHEN Rep #:[id number] : 1945 79 From: Glenny Wetzel DO [...] (Auto) 77.3 H, Lymph % (Auto) 12.1L, Porter % (Auto) 8.9, Eos % (Auto) 0.9, [...] 35 minutes Charges/Coding Visit Charges Inpatient E&M: 51596 Subs Hosp L2 05/30/25 4964 Cosigner Signature (if applicable): CC: ~ Signed [facility]07-27-2025 Consult note Author Latoya Ochoa tr [facility] Note Date/Time May 30, 2025 9:53 am [facility] Medical Records Department [address] [place] [address] Consultation - Nephrology 05/30/25 0908 MR#: [id number] Acct: [id number] Name: ALVARADO COHEN CALLI Rep #:[id number] : 1945 79 From: Latoya schneider MD [...] admission. She denies chronic use of NSAIDs. [facility] Medical History Renal artery stenosis HTN [...] Sl. Cloudy, Urine pH 7.0, Ur Specific Ren[place] 1.010, Urine Protein 15 H, Urine Glucose [...] (Auto) 77.3 H, Lymph % (Auto) 12.1L, Porter % (Auto) 8.9, Eos % (Auto) 0.9, [...] evaluation with MRI is recommended. Reading Location: [facility] Chest X-Ray 05/29/25 13:30 IMPRESSION: Left basilar atelectasis or pneumonia. Reading Location: [facility] 05/30/25 0953 <Electronically signed by Latoya Mo MD> Cosigner Signature (if applicable): CC: Dr. Glenny Luque MD~ Signed [facility] Work Phone: 1(192) 373-911607-27-2025 Consult note [facility] Medical Records Department [address] [place] [address] Consultation - Nephrology 05/30/25 0908 MR#: [id number] Acct: [id number] Name: ALVARADO COHEN CALLI Rep #:[id number] : 1945 79 From: Latoya schneider MD [...] admission. She denies chronic use of NSAIDs. [facility] Medical History Renal artery stenosis HTN [...] Sl. Cloudy, Urine pH 7.0, Ur Specific Ren[place] 1.010, Urine Protein 15 H, Urine Glucose [...] (Auto) 77.3 H, Lymph % (Auto) 12.1L, Porter % (Auto) 8.9, Eos % (Auto) 0.9, [...] evaluation with MRI is recommended. Reading Location: [facility] Chest X-Ray 05/29/25 13:30 IMPRESSION: Left basilar atelectasis or pneumonia. Reading Location: [facility] 05/30/25 0953 Cosigner Signature (if applicable): CC: Dr. Glenny Luque MD~ Signed [facility]07-27-2025 Progress note Author Porfirio Aguilar [facility] Note Date/Time May 30, 2025 12:4 8am [facility] Medical Records Department [address] [place] [address] Progress Note - Hospitalist 05/29/252253 MR#: [id number] Acct: [id number] Name: ALVARADO COHEN CALLI Rep #:[id number] : 1945 79 From: Porfirio Aguilar DO [...] Cosigner Signature (if applicable): cc: ~* Signed [facility] Work Phone: 1(617) 828-718107-27-2025 Progress note [facility] Medical Records Department [address] [place] [address] Progress Note - Hospitalist 05/29/252253 MR#: [id number] Acct: [id number] Name: ALVARADO COHEN CALLI Rep #:[id number] : 1945 79 From: Porfirio Aguilar DO [...] Cosigner Signature (if applicable): cc: ~* Signed [facility]07-26-2025 Progress note Author Conchita Burns [facility] Note Date/Time May 29, 2025 6:11 pm [facility] Medical Records Department [address] [place] [address] Progress Note - Hospitalist 05/29/251809 MR#: [id number] Acct: [id number] Name: ALVARADO COHEN Rep #:[id number] : 1945 79 From: Conchita Burns MD PCP: Dr. Glenny Luuqe MD Status:AD M IN Location: ICU ICU03-1 [...] Cosigner Signature (if applicable): CC: ~ Signed [facility] Work Phone: 1(206) 575-551607-26-2025 Discharge summary Author Del Leyva [facility] Note Date/Time May 29, 2025 6:08 pm [facility] Medical Records Department [address] [place] [address] Emergency Department Summary 05/29/25 MR#: [id number] Acct: [id number] Name: ALVARADO COHEN Rep #:[id number] : 1945 79 From: Del Pettit PCP: Dr. Glenny Luque MD Status:AD M IN Location: ICU ICU03-1 HPI History of Present Illness Chief Complaint: General Illness PFSH [facility] Medical History Renal artery stenosis HTN [...] Oxygen Delivery Method Room Air Room Air [facility] Narrative Medical decision making narrative: HISTORY OF [...] reviewed, Vital signs reviewed Constitutional: please see [facility] HENT: MMM Eyes: Pupils equal round and [...] cardiovascular testing. No recent echocardiograms noted in [facility] Factors affecting care: As per [facility] Social determinants of health: none History obtained from others: Consults: internal medicine (Dr. Burns) [facility] Narrative: The patient was initially hypertensive with [...] to ICU This note was generated with Fanearation software. It may contain incorrectwords, spelling, and [...] Sl. Cloudy Urine pH 7.0 Ur Specific Reno 1.010 Urine Protein 15 H Urine Glucose [...] Color Urine Clarity Urine pH Ur Specific Ren[place] Urine Protein Urine Glucose (UA) Urine Ketones [...] evaluation with MRI is recommended. Reading Location: [facility] Chest X-Ray 05/29/25 13:30 IMPRESSION: Left basilar atelectasis or pneumonia. Reading Location: [facility] Discharge Plan Disposition Disposition: Acute Care Hospital [facility] Discharge Date/Time: 05/29/25 16:40 What to do if you have Problems For any increased pain, shortness of breath, bleeding, nausea or vomiting, chestpain, or any unexpected problems, contact your Primary Care Provider. Call [facility] ([phone]) or report to the closest Emergency Room. Call 911 if necessary. 05/29/25 1808 <Electronically signed by Del Leyva DO> Cosigner Signature (if applicable): CC: Dr. Glenny Luque MD ~ Signed [facility] Work Phone: 1(237) 352-655107-26-2025 History and physical note Author Conchita Burns [facility] Note Date/Time May 29, 2025 4:42 pm [facility] Medical Records Department [address] [facility] [place] [address] H&P Exam - Hospitalist 05/29/25 1621 MR#: [id number] Acct: [id number] Name: ALVARADO COHEN Rep #:[id number] : 1945 79 From: Conchita Burns MD PCP: Dr. 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 Nora Erazo [...] is not sure what the number was [facility] Medical History Renal artery stenosis HTN [...] Sl. Cloudy, Urine pH 7.0, Ur Specific Ren[place] 1.010, Urine Protein 15 H, Urine Glucose [...] evaluation with MRI is recommended. Reading Location: [facility] Chest X-Ray 05/29/25 13:30 IMPRESSION: Left basilar atelectasis or pneumonia. Reading Location: [facility] Assessment & Plan Assessment/Plan (1) Hyponatremia: [...] Burns MD Charges/Coding Visit Charges Inpatient E&M: 88483 Init Hosp L2 05/29/25 1642 <Electronically signed by Conchita Burns MD> Cosigner Signature (if applicable): CC: Dr. Glenny Luque MD; Dr. Conchita Burns MD~ Signed [facility] Work Phone: 1(704) [phone] Evaluation note* Diagnosis Onset Date Resolution Status [...] 29, 2025 4:23pm Renal artery stenosis chronic May 4:23pm Anemia deleted May 29 4:23pm [facility] Work Phone: 1(854) 602-736007-26-2025 Evaluation note* Diagnosis Onset Date Resolution Status Admit Date ANTONINO (acute kidney injury) acute May 29, 2025 4:23pm Hypo-osmolar hyponatremia acute May 29, 2025 4:23pm Uncontrolled hypertension acute May 29, 2025 4:23pm Acute anemia resolved May 29, 2 025 4:23pm Hypokalemia resolved May 29 4:23pm Hypomagnesemia resolved May 29, 2025 4:23pm Hypotension resolved May 29 4:23pm Lower extremity weakness resolved May 29, 2025 4:23pm Paresthesia of lower extremity resol mounika May 29, 2025 4:23pm GI bleed inactive May 29 4:23pm Renal artery stenosis inactive May 4:23pm Anemia deleted May 29 4:23pm Hyponatremia deleted May 29, 2 025 4:23pm [facility] Work Phone: [phone]) 507-342507-26-2025 Evaluation note* Diagnosis Onset Date Resolution Status Admit Date ANTONINO (acute kidney injury) acute May 29, 2025 4:23pm Hypo-osmolar hyponatremia acute May 29, 2025 4:23pm Uncontrolled hypertension acute May 29, 2025 4:23pm Acute anemia resolved May 29, 2 025 4:23pm Hypokalemia resolved May 29 4:23pm Hypomagnesemia resolved May 29, 2025 4:23pm Hypotension resolved May 29 4:23pm Lower extremity weakness resolved May 29, 2025 4:23pm Paresthesia of lower extremity resol mounika May 29, 2025 4:23pm GI bleed inactive May 29 4:23pm Renal artery stenosis inactive May 4:23pm Anemia deleted May 29 4:23pm Hyponatremia deleted May 29, 2 025 4:23pm Bilateral pleural effusion acute June 29, 2025 4:03pm CHF (congestive heart failure) acute June 29, 2025 4:03pm Fluid overload acute June 4:03pm Hyponatremia acute June 29, 2025 4:03pm Uncontrolled hypertension acute June 29, 2025 4:03pm [facility] Work Phone: 1(103) 961-860307-26-2025 Progress note [facility] Medical Records Department [address] [place] [address] Progress Note - Hospitalist 05/29/251809 MR#: [id number] Acct: [id number] Name: ALVARADO COHEN CALLI Rep #:[id number] : 1945 79 From: Conchita Burns MD [...] Cosigner Signature (if applicable): CC: ~ Signed [facility]07-26-2025 Discharge summary [facility] Medical Records Department [address] [place] [address] Emergency Department Summary 05/29/25 MR#: [id number] Acct: [id number] Name: ALVARADO COHEN CALLI Rep #:[id number] : 1945 79 From: Del Pettit PCP: Dr. Glenny Luque MD Status:AD M IN Location: ICU ICU03-1 HPI History of Present Illness Chief Complaint: General Illness [facility] Medical History Renal artery stenosis [...] reviewed, Vital signs reviewed Constitutional: please see [facility] HENT: MMM Eyes: Pupils equal round and [...] MEDICAL DECISION MAKING: Chief Complaint: please see [facility] External records reviewed: Reviewed prior vascular surgery operation. Reviewed prior cardiovasculartesting. No recent echocardiograms noted in [facility] Factors affecting care: As per HPI Social determinants of health: none History obtained from others: Consults: internal medicine (Dr. Burns) [facility] Narrative: The patient was initially hypertensive with [...] to ICU This note was generated with [email or web address] dictation software. It may contain incorrectwords, spelling, [...] Sl. Cloudy Urine pH 7.0 Ur Specific Reno 1.010 Urine Protein 15 H Urine Glucose [...] Color Urine Clarity Urine pH Ur Specific [place] Urine Protein Urine Glucose (UA) Urine Ketones [...] evaluation with MRI is recommended. Reading Location: [facility] Chest X-Ray 05/29/25 13:30 IMPRESSION: Left basilar atelectasis or pneumonia. Reading Location: [facility] Discharge Plan Disposition Disposition: Acute Care Hospital [facility] Discharge Date/Time: 05/29/25 16:40 What to do if you have Problems For any increased pain, shortness of breath, bleeding, nausea or vomiting, chestpain, or any unexpected problems, contact your Primary Care Provider. Call [facility] ([phone]) or report tothe closest Emergency Room. Call 911 if necessary. 05/29/25 1808 Cosigner Signature (if applicable): CC: Dr. Glenny Luque MD ~ Signed [facility]07-26-2025 History and physical note [facility] Medical Records Department [address] [place] [address] H&P Exam - Hospitalist 05/29/25 1621 MR#: [id number] Acct: [id number] Name: ALVARADO COHEN CALLI Rep #:[id number] : 1945 79 From: Conchita Burns MD PCP: Dr. 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 Nora Erazo [...] is not sure what the number was [facility] Medical History Renal artery stenosis HTN [...] Sl. Cloudy, Urine pH 7.0, Ur Specific [place] 1.010, Urine Protein 15 H, Urine Glucose [...] evaluation with MRI is recommended. Reading Location: [facility] Chest X-Ray 05/29/25 13:30 IMPRESSION: Left basilar atelectasis or pneumonia. Reading Location: [facility] Assessment & Plan Assessment/Plan (1) Hyponatremia: [...] Burns MD Charges/Coding Visit Charges Inpatient E&M: 28042 Init Hosp L2 05/29/25 1642 Cosigner Signature (if applicable): CC: Dr. Glenny Luque MD; Dr. Conchita Burns MD~ Signed [facility]07-26-2025 Radiology Diagnostic study note [facility] Imaging Services [address] [place], [place] [address] Brain/Head without Contrast MR#: [id number] Acct: [id number] Name: ALVARADO COHEN Rep #: [id number] : 1945 F 79 From: Heather Mancia MD PCP: Dr. Glenny Luque MD Status: RE G ER Study:Brain/Head without Contrast Date of Exa m: 05/29/25 Exam# [id number] Ordering Dr: Rena Leyva DO EXAM: CT [...] evaluation with MRI is recommended. Reading Location: [facility] CC: Dr. Glenny Luque MD; Dr. Del Leyva DO ~ Table Assembler: Signed [facility]07-26-2025 Radiology Diagnostic study note [facility] Imaging Services [address] [place] [address] Chest 1 View (Portable) MR#: [id number] Acct: [id number] Name: ALVARADO COHEN Rep #: [id number] : 1945 F 79 From: Heather Mancia MD PCP: Dr. Glenny Luque MD Status: RE G ER Study:Chest 1 View (Portable) Date of Exam: 05/29/25 Exam# [id number] Ordering Dr: Rena Leyva DO EXAM: XR Chest, 1 View CLINICAL INDICATION: SOB TECHNIQUE: Frontal view of the chest. COMPARISON: No relevant prior studies available. FINDINGS: LUNGS AND PLEURAL SPACES: Left basilar atelectasis or pneumonia. No pneumothorax. HEART: Unremarkable. No cardiomegaly. MEDIASTINUM: Unremarkable. Normal mediastinal contour. BONES/JOINTS: Unremarkable. No acute fracture. RAD/Chest 1 View (Portable) IMPRESSION: Left basilar atelectasis or pneumonia. Reading Location: [facility] CC: Dr. Glenny Luque MD; Dr. Del Leyva DO ~ Table Assembler: Signed [facility]06-25-2025 Telephone encounter Note* Telephone Encounter - Shavonne Lopez RN - 04/28/2025 4:34 PM EDT Pt called and is notified of providers message and instructions. Pt voices understanding. Faxed medical consultation form to Dr. Irvin Gallo DMD, MD at fax # [phone] [facility]. Shavonne Lopez RN [facility]06-25-2025 Miscellaneous Notes* Telephone Encounter - Shavonne Lopez RN - 04/28/2025 4:34 PM EDT Pt called and is notified of providers message and instructions. Pt voices understanding. Faxed medical consultation form to Dr. Irvin Gallo DMD, MD at fax # [phone] [facility]. Shavonne Lopez, RN * Telephone Encounter - [...] to Dr. Irvin Gallo DMD, MD at [phone] [facility]. Route to [place] when form completed for processing documented in [facility] encounterGood [facility]06-[facility] Telephone encounter Note * Telephone Encounter - Glenny Luque MD - 04/27/2025 5:47 PM EDT Form done; she may hold the Fosamax now, and stay off it until healed from the dental surgery. Glenny Luque MD [facility]06-19-2025 Telephone encounter Note* Telephone Encounter - Tiffanie Ruff MA - 04/22/2025 8:55 AM EDT Type of letter/form/fax request - Medical Consultation Form Form received from fax on 1 floor and placed on MD desk (Dr. Luque) for completion. Completed form needs to be faxed to Dr. Irvin Gallo DMD, MD at [phone] [facility]. Route to [place] when form completed for processing [facility]06-04-2025 NoteHNO ID: [id number] Author: FAITH LARKIN MA Service: ? Author Type: Media Center Director School Type: Progress Notes Filed: 04/07/2025 11:53 Note [...] MA April 07, 2025 11:45 [facility]06-04-2025 History of Present illness Narrative* Faith [...] 07, 2025 11:45 AM documented in this encounterGood [facility]aritan [facility]06-04-2025 NotePatient Outreach (NETNAV) NOELALVARADO ([id number]) 1945 F Date Time Provider Department 04/07/25 [...] Population Health Navigation Outreach [3910] Cmt: [facility] [employer] LUANNE PCSA Prescriptions as of 04/07/2025 - [...] and stay upright for 30 min. - vz-zkp-pgxar-calcium carb-K1 (WOMEN'S 50 PLUS MULTIVITAMIN) 400 mcg-500 [...] for Encounter Date Provider Department Center 04/07/2025 [id number]-[id number], KATHY LNETNAV None Encounter Status:Closed by FAITH LARKIN on 04/07/25[facility]05-19-20[facility] History of Present illness Narrative* Glenny [...] tablet by mouth three times a day. th-kvs-rjesa-calcium carb-K1 (WOMEN'S 50 PLUS MULTIVITAMIN) 400 mcg-500 [...] Moderate Glenny Luque MD documented in this encounterGood [facility]aritan Hospital05-19-2025 NoteHNO ID: [id number] Author: GLENNY LUQUE MD Service: ? Author [...] tablet by mouth three times a day. it-edn-dtcns-calcium carb-K1 (WOMEN'S 50 PLUS MULTIVITAMIN) 400 mcg-500 [...] ICD10: I10 (primary diagnosi (more content not included)...[facility]04-30-2025 NoteHNO ID: [id number] Author: FAITH LARKIN MA Service: ? Author Type: Media Center Director School Type: Progress Notes Filed: 03/03/2025 15:03 Note [...] Faith Larkin MA March 03, 2025 2:47 [facility] History of Present illness Narrative* Faith Larkin [...] 03, 2025 2:47 PM documented in this encounterGood [facility]aritan Hospital04-30-2025 NotePatient Outreach (NETNAV) NOELALVARADO Atkins ([id number]) 1945 F Date Time Provider Department 03/03/25 FAITH LARKIN During your visit today, we recorded the [...] Visit: Population Health Navigation Outreach [3910] [facility] Prescriptions as of 03/04/2025 [...] by mouth three times a day. - af-lxr-decgb-calcium carb-K1 (WOMEN'S 50 PLUS MULTIVITAMIN) 400 mcg-500 [...] 03/23/2015 Encounter Status:Closed by FAITH LARKIN on 03/03/25[facility]03-24-2025 Telephone encounter Note* Telephone Encounter - [...] and date of : Yes Oumou Thompson [facility]03-24-2025 Miscellaneous Notes* Telephone Encounter - Oumou [...] Yes Oumou Gladis Thompson documented in this encounterGood [facility] Hospital03-[facility]-2025 Progress note* Result Encounter Note - Leeanne Sterling MA - 01/04/2025 6:09 PM EST Rx's have been sent. Leeanne Sterling MA [facility]03-03[facility]25 Miscellaneous Notes* Result Encounter Note - [...] this. Glenny Luque MD documented in this encounterGood Samaritan Hospital03-03-2025 Progress note* Result Encounter Note - Glenny Luque MD - 01/04/2025 5:57 PM EST OK to refill as ordered Glenny Lquue MD [facility]03-03-2025 Progress note* Result Encounter Note - [...] and Chlorthalidone. Rx's pended. Leeanne Sterling MA [facility]03-03-2025 Telephone encounter Note* Telephone Encounter - [...] willing to start this. Glenny Luque MD [facility]02[facility] History of Present illness Narrative* Bernabe [...] PATIENT PRESENTS WITH AN IMPLANTABLE OR ATTACHED POST SECONDARY PROFESSIONAL: No RADIOLOGY DEPARTMENT: Bone Density PERIPHERAL IV DATA: Not applicable SIGNED BY: LISETTE Ferro) January 01, 2025 12:30 PM documented in this encounterGood Samaritan Hospital02-28-2025 NoteHNO ID: [id number] Author: BERNABE FLOWERS RT(R) Service: ? Author [...] PATIENT PRESENTS WITH AN IMPLANTABLE OR ATTACHED POST SECONDARY PROFESSIONAL: No RADIOLOGY DEPARTMENT: Bone Density PERIPHERAL IV DATA: Not applicable SIGNED BY: LISETTE Ferro) January 01, 2025 12:30 [facility]01-23-2025 Instructions* Patient Instructions* Leeanne Sterling MA - [...] your usual activities immediately. documented in this encounterGood Samaritan Hospital01-23-2025 History of Present illness Narrative* Glenny [...] PCP - General (Family Medicine) Laurel Toure APRN.MEDICAL POLICY SPECIALIST as Real Estate Leasing Manager (Family Medicine) Hans Mccray APRN.CNP as Real Estate Leasing Manager (Family Medicine) Porfirio Mei MD - Vascular [...] Past Histories independently gathered by the clinical behaviour support teacher and the remaining scribed note accurately describes [...] PM. Leeanne Sterling MA documented in this encounterJavier Ville [address]-23-2025 NoteHNO ID: [id number] Author: GLENNY LUQUE MD Service: ? Author [...] PCP - General (Family Medicine) Laurel Toure APRN.MEDICAL POLICY SPECIALIST as Real Estate Leasing Manager (Family Medicine) Hans Mccray APRN.CNP as Real Estate Leasing Manager (Family Medicine) Porfirio Mei MD - Vascular [...] - Smoking cessation encou (more content not included)...[facility]11-22-2024 History of Present illness Narrative* Shanta Garrison RT(R) - 09/25/2024 12:50 PM [...] PATIENT PRESENTS WITH AN IMPLANTABLE OR ATTACHED POST SECONDARY PROFESSIONAL: No RADIOLOGY DEPARTMENT: Mammography PERIPHERAL IV DATA: Not applicable SIGNED BY: RT David(Lang) September 25, 2024 1:27 PM documented in this encounterGood Samaritan Hospital11-22-2024 NoteHNO ID: [id number] Author: SHANTA GARRISON RT(R) Service: ? Author [...] PATIENT PRESENTS WITH AN IMPLANTABLE OR ATTACHED POST SECONDARY PROFESSIONAL: No RADIOLOGY DEPARTMENT: Mammography PERIPHERAL IV DATA: Not applicable SIGNED BY: RT David(R) September 25, 2024 1:27 [facility]11-15-2024 NoteHNO ID: [id number] Author: JELANI OZUNA MA Service: ? Author Type: Media Center Director School Type: Progress Notes Filed: 09/18/2024 13:45 Note [...] orders: Medicare Annual Wellness Visit 11/09/2024 in [facility] with GLENNY LUQUE is PRIMARY/Follow up , For BOTH use modifier 25 Navigation Signature: Jelani Ozuna MA September 18, 2024 1:37 [facility]11-15-2024 History of Present illness Narrative* Jelani Ozuna [...] orders: Medicare Annual Wellness Visit 11/09/2024 in [facility] with GLENNY LUQUE is PRIMARY/Follow up , For BOTH use modifier 25 Navigation Signature: Jelani Ozuna MA September 18, 2024 1:37 PM documented in this encounterGood Samaritan Hospital11-15-2024 NotePatient Outreach (NETNAV) ALVARADO COHEN ([id number]) 1945 F Date Time Provider Department 09/18/24 [...] orders: Medicare Annual Wellness Visit 11/09/2024 in [facility] with GLENNY LUQUE is PRIMARY/Follow [...] carotid bruit [R09.89] 03/23/2015 Encounter Status:Closed by NASIRLYUBOVA on 09/18/24[facility] NoteHNO ID: [id number] Author: ALLIE LYNCH APRN.MEDICAL POLICY SPECIALIST Service: ? Author Type: Nurse Practitioner Type: [...] history is provided by the patient. No professor of languages was used. Laceration Review of Systems Constitutional: [...] plan. Both wounds were redressed. Allie Lynch APRN.[facility]09-20-2024 History of Present illness Narrative* Allie Lynch APRN.MEDICAL POLICY SPECIALIST - 07/24/2024 11:32 AM EDT Images from [...] history is provided by the patient. No professor of languages was used. Laceration Review of Systems Constitutional: [...] redressed. Allie Lynch APRN.NIKKI documented in this encounterGood Samaritan Hospital05-23-2024 Telephone encounter Note * Telephone Encounter - Ruthie Mccloud LPN - 03/26/2024 1:17 PM EDT Patient calling she phoned Dr Alexander Govea office to make appt and they did not have her information. Printed Nephrology consult, insurance card, face sheet, office notes, labs and imaging and faxed to [phone] as requested. [facility]05-23-[facility]24 Miscellaneous Notes* Telephone Encounter - Ruthie Mccloud LPN - 03/26/2024 1:17 PM EDT Patient calling she phoned Dr Alexander Govea office to make appt and they did not have her information. Printed Nephrology consult, insurance card, face sheet, office notes, labs and imaging and faxed to [phone] as requested. documented in this encounterGood Samaritan Hospital05-20-2024 Telephone encounter Note * Telephone Encounter [...] an allergy to this. Yecenia Salcedo LPN [facility]05-20-2024 Miscellaneous Notes* Telephone Encounter - Yecenia [...] this. Yecenia Salcedo LPN documented in this encounterGood Samaritan Hospital05-20-2024 Telephone encounter Note * Telephone Encounter [...] Please review and advise. Rosa Ram LPN [facility]05-20-2024 Miscellaneous Notes* Telephone Encounter - Rosa [...] advise. Rosa Ram LPN documented in this encounterGood Samaritan Hospital05-17-2024 Instructions* Patient Instructions* Hans Mccray APRN.CNP - 03/20/2024 10:29 AM EDT Schedule with Gold Blower, Dr. Nora Govea [facility], [facility]. Address: [address] [place] [address], [place] [address] Increase Hydralazine to 25 mg twice daily Go to the ER for chest pain, dizziness, blurry vision See us back 3 months. Hans Mccray APRN.CNP documented in this encounterGood Samaritan Hospital05-17-2024 History of Present illness Narrative* Lala [...] IMPRESSION: 1. No acute renal abnormality detected. Table Assembler: PSCB Transcribe Date/Time: Mar 10 2024 8:27A Dictated [...] needed. This note was partly generated using [email or web address] voice recognition dictation and may contain some misspelled or inaccurate words missed on review. documented in this encounterGood Samaritan Hospital05-07-2024 Telephone encounter Note * Telephone Encounter - Tiffanie Ruff MA - 03/10/2024 10:48 AM EDT Pt notified of results via [employer] Network[employer]. Tiffanie Ruff Ma [facility]05-07-2024 Miscellaneous Notes* Telephone Encounter - Tiffanie Ruff MA - 03/10/2024 10:48 AM EDT Pt notified of results via [employer]. Tiffanie Ruff Ma * Telephone Encounter - Hans Mccray APRN.CNP - 03/10/2024 9:43 AM EDT Please let the patient know that her ultrasound of the kidneys is normal. No kidney disease that would be cause for resistant hypertension. Continue with current medications and follow ups as scheduled. Hans Mccray APRN.CNP documented in this encounterGood Samaritan Hospital05-07-2024 Telephone encounter Note * Telephone Encounter - Tiffanie Ruff MA - 03/10/2024 10:47 AM EDT Pt notified via Played. Tiffanie Ruff MA [facility]05-07-2024 Miscellaneous Notes* Telephone Encounter - Tiffanie Ruff MA - 03/10/2024 10:47 AM EDT Pt notified via Angella Joyt. Tiffanie Ruff MA documented in this encounterGood Samaritan Hospital05-07-2024 Telephone encounter Note * Telephone Encounter - Hans Mccray APRN.CNP - 03/10/2024 9:43 AM EDT Please let the patient know that her ultrasound of the kidneys is normal. No kidney disease that would be cause for resistant hypertension. Continue with current medications and follow ups as scheduled. Hans Mccray APRN.CNP [facility]05-06-2024 Telephone encounter Note* Telephone Encounter - Hans cMcray APRN.CNP - 03/09/2024 10:55 AM EDT The [...] two times a day. Hans Mccray APRN.CNP [facility]05-06-2024 Miscellaneous Notes* Telephone Encounter - Hans [...] date but will run out. Verified with [employer] unsure why there was a date of 04/16. Pushed refill through & insurance covered. Patient will need a 2 week supply for Hydralazine to go to [facility] to cover until mail order comes in. Pended as appropriate with 2 additional meds to go to mail order. Lala Brewer MA documented in this encounterGood Samaritan Hospital05-06-2024 Telephone encounter Note * Telephone Encounter [...] go to mail order. Lala Brewer MA [facility]05-03-2024 History of Present illness Narrative* Laly [...] PATIENT PRESENTS WITH AN IMPLANTABLE OR ATTACHED POST SECONDARY PROFESSIONAL: No RADIOLOGY DEPARTMENT: Ultrasound PERIPHERAL IV DATA: Not applicable SIGNED BY: Laly Kauffman RDMS RVT March 06, 2024 1:33 PM documented in this encounterGood Samaritan Hospital04-16-2024 Miscellaneous Notes* Telephone Encounter - Lala Brewer MA - 02/18/2024 12:56 PM EDT Patient active MyChart. Patient notified via [employer] message. Lala Brewer MA * Telephone Encounter [...] month. Hans Mccray APRN.CNP documented in this encounterGood Samaritan Hospital04-15-2024 Instructions* Patient Instructions* Hans Mccray APRN.CNP - 02/17/2024 11:46 AM EDT Get blood work today Schedule ultrasound of kidneys Stop hydrochlorothiazide Start Chlorthalidone 25 mg daily Start new prescription for Lisinopril 30 mg twice daily. This replaces the Lisinopril 40 mg. See us back in 4 weeks. Hans Mccray APRN.CNP documented in this encounterGood Samaritan Hospital04-15-2024 History of Present illness Narrative* Hans [...] KIDNEY/BLADDER - ALDOSTERONE/DIRECT RENIN RATIO Hans Mccray APRN.MEDICAL POLICY SPECIALIST RTO in 1 months, sooner if needed. This note was partly generated using [email or web address] voice recognition dictation and may contain some [...] AVERAGE: 188/67 Pulse: 71 documented in this encounterGood Samaritan Hospital04-04-2024 Miscellaneous Notes* Telephone Encounter - Chani Lee OCCA - 02/06/2024 1:15 PM EDT TC to patient who verbalized understanding of below. Patient now scheduled with Iveth Mccray on 02/16 for BP follow up. Nothing further at this time. LIVE Godinez * Telephone Encounter - Laurel Toure APRN.NIKKI - 02/06/2024 1:08 PM EDT Can you please call the patient and let her know that I refilled her blood pressure medication. However she is past due for a follow-up. Last time she was seen in the office blood pressure was still very high. Thank you. Laurel Toure APRN.MEDICAL POLICY SPECIALIST * Telephone Encounter - Leeanne Sterling MA [...] Thank you. Milla Thompson. documented in this encounterGood Samaritan Hospital10-30-2023 Miscellaneous Notes* Telephone Encounter - Hans [...] time Candi Maldonado MA documented in this encounterGood Samaritan Hospital10-05-2023 Miscellaneous Notes* Letter - Coordinator, Mammography - 08/08/2023 4:55 PM EDT August 09, 2023 PID: [id number] Alvarado Cohen [address] [place] [address] Dear Ms. Cohen, We are pleased to [...] report will [facility] part [facility] permanent medical record and are available for your continuing care. Thank you for allowing us to help in meeting your health care needs. Sincerely, Dr. Tejada Interpreting Radiologist [facility] (Normal over 40) documented in this encounterGood Samaritan Hospital10-05-2023 History of Present illness Narrative* [place] [...] 08, 2023 11:05 AM documented in this encounterGood Samaritan Hospital09-07-2023 Miscellaneous Notes* Telephone Encounter - Laurel Toure APRN.CNP - 07/11/2023 11:32 AM EDT The following approved medication requests have been transmitted electronically. Requested Prescriptions Pending Prescriptions Disp Refills hydrALAZINE (APRESOLINE) 10 mg tablet 60 tablet 1 Sig: Take 1 tablet by mouth twice daily. Laurel Toure APRN.CNP * Telephone Encounter - Rosa Gutierrez LPN - 07/11/2023 11:29 AM EDT Patient phones requesting refills as follows: Requested Prescriptions Pending Prescriptions Disp Refills hydrALAZINE (APRESOLINE) 10 mg tablet 60 tablet 1 Sig: Take 1 tablet by mouth twice daily. Please review and advise. Rosa Gutierrez LPN documented in this encounterGood Samaritan Hospital09-05-2023 Miscellaneous Notes* Telephone Encounter - Hans Mccray APRN.CNP - 07/09/2023 10:22 AM EDT The following approved medication requests have been transmitted electronically. Requested Prescriptions Pending Prescriptions Disp Refills metoprolol succinate ER (TOPROL XL) 50 mg 24 hr tablet 60 tablet 0 Sig: Take 1 tablet by mouth twice daily. Hans Mccray APRN.CNP * Telephone Encounter - Tiffanie Ruff Ma - 07/09/2023 10:20 AM EDT Last office visit: 06/12/23 F/u scheduled: none Tiffanie Ruff Ma * Telephone Encounter - Cyndy Ramírez - 07/09/2023 10:00 AM EDT Patient needs a 1 month emergency supply sent to [facility] she is out at this time. [...] notify patient. Cyndy Thompson documented in this encounterGood Samaritan Hospital08-09-2023 Instructions* Patient Instructions* Laurel Toure APRN.CNP - 06/12/2023 12:48 PM EDT Make appointment with nephrology for consult. Continue to take all medication as prescribed Check blood pressure twice daily, goal 130/80 or less. If blood pressure is elevated may increase hydralazine 10 mg (2 tab=20 mg) twice daily. Message the office with blood pressure readings. documented in this encounterGood Samaritan Hospital08-09-2023 History of Present illness Narrative* Laurel [...] to uncontrolled hypertension. Discussed establishing care with [facility] here in [place]. Would like to wait to see specialist. [...] APRN.CNP This note was partially generated using [email or web address] voice recognition system. Note was reviewed for accuracy. There may be minor misspellings or grammar miscues with [email or web address] voice recognition. documented in this encounterGood Samaritan Hospital07-10-2023 Miscellaneous Notes* Telephone Encounter - Laurel [...] able to see Dr. Brian at the [facility] location. Patient reports her options are Dr. Caceres at the [place] location or Dr. Brian at the [place] location. Patient asking provider if she would still recommend Dr. Brian. Patient wants to choose the roll or tape edge machine operator that provider would recommend but would rather not travel so asking for further review. Call patient back at [phone] with provider response. Please review and advise, Brooklynn Posada RN documented in this encounterGood Samaritan Hospital07-05-2023 Instructions* Patient Instructions* Laurel Toure APRN.CNP - 05/08/2023 1:16 PM EDT Continue to take all medication as prescribed. Add on hydralazine 10 mg twice daily. Monitor blood pressure at home. Recommend consult with nephrology Follow up in 1 month or sooner as needed. documented in this encounterGood Samaritan Hospital07-05-2023 History of Present illness Narrative* Laurel [...] APRN.CNP This note was partially generated using [email or web address] voice recognition system. Note was reviewed for accuracy. There may be minor misspellings or grammar miscues with [email or web address] voice recognition. documented in this encounterGood Samaritan Hospital06-05-2023 Instructions* Patient Instructions* Laurel Toure APRN.CNP [...] Goal: 130/80 or less documented in this encounterGood Samaritan Hospital06-05-2023 History of Present illness Narrative* Laurel [...] APRN.CNP This note was partially generated using [email or web address] voice recognition system. Note was reviewed for accuracy. There may be minor misspellings or grammar miscues with [email or web address] voice recognition. documented in this encounterGood Samaritan Hospital10-24-2022 Instructions* Patient Instructions* Laurel Toure APRN.CNP - 08/27/2022 10:29 AM EDT Get fasting labs completed, no food 8-10 hours prior. May black coffee and water. Continue to take all medications as prescribed. Monitor Blood Pressure at home, please follow up in the office BP is elevate. Follow up pending test results. Health Promotion: - Eat healthy -- go to [email or web address] to get started - Have a yearly [...] drive - Wear sunscreen documented in this encounterGood Samaritan Hospital10-24-2022 History of Present illness Narrative* Laurel [...] Procedure Laterality Date COLONOSCOP W/ OR W/O RUST SPEC 02/18/07 COLONOSCOP W/ OR W/O RUST SPEC 06/10/2017 Colonoscopy ALLERGIES Codeine, Spironolactone, and [...] APRN.NIKKI This note was partially generated using [email or web address] voice recognition system. Note was reviewed for accuracy. There may be minor misspellings or grammar miscues with [email or web address] voice recognition. documented in this encounterGood Samaritan Hospital08-11-2022 Miscellaneous Notes* Telephone Encounter - Lala Brewer MA - 06/14/2022 11:51 AM EDT Patient active MyChart. Patient notified via [employer] message. Lala Brewer MA documented in this encounterGood Samaritan Hospital08-09-2022 Miscellaneous Notes* Letter - Mammography Coordinator - 06/12/2022 8:11 AM EDT June 12, 2022 PID: [id number] Alvarado Cohen [address] [place] [address] Dear Ms. Cohen, We are pleased to [...] report will [facility] of [facility] permanent medical record and are available for your continuing care. Thank you for allowing us to help in meeting your health care needs. Sincerely, Dr. Mathews Interpreting Radiologist [facility] (Normal over 40) documented in this encounterGood Samaritan Hospital08-08-2022 History of Present illness Narrative* RT [...] 11, 2022 2:58 PM documented in this encounterGood Samaritan Hospital04-25-2014 History of Past illness Narrative* Problem Noted Date Resolved Date Hypokalemia 02/26/2014 04/10/2017 Vitamin D deficiency 09/03/2007 04/10/2017 documented as of this encounter (statuses as of 06/08/2022) [facility] Narrative* Problem Noted Date Resolved Date Hypokalemia 02/26/2014 04/10/2017 Vitamin D deficiency 09/03/2007 04/10/2017 documented as of this encounter (statuses as of 06/12/2022) [address]25-2014 History of Past illness Narrative* Problem Noted Date Resolved Date Hypokalemia 02/26/2014 04/10/2017 Vitamin D deficiency 09/03/2007 04/10/2017 documented as of this encounter (statuses as of 06/14/2022) [address]25-2014 History of Past illness Narrative* Problem Noted Date Resolved Date Hypokalemia 02/26/2014 04/10/2017 Vitamin D deficiency 09/03/2007 04/10/2017 documented as of this encounter (statuses as of 08/27/2022) [address]25-2014 History of Past illness Narrative* Problem Noted Date Resolved Date Hypokalemia 02/26/2014 04/10/2017 Vitamin D deficiency 09/03/2007 04/10/2017 documented as of this encounter (statuses as of 04/09/2023) [address]25-2014 History of Past illness Narrative* Problem Noted Date Resolved Date Hypokalemia 02/26/2014 04/10/2017 Vitamin D deficiency 09/03/2007 04/10/2017 documented as of this encounter (statuses as of 05/08/2023) [address]25-2014 History of Past illness Narrative* Problem Noted Date Diagnosed Date Resolved Date Hypokalemia 02/26/2014 04/10/2017 Vitamin D deficiency 09/03/2007 017 documented as of this encounter (statuses as of 05/13/2023) [address]25-2014 History of Past illness Narrative* Problem Noted Date Diagnosed Date Resolved Date Hypokalemia 02/26/2014 04/10/2017 Vitamin D deficiency 09/03/2007 017 documented as of this encounter (statuses as of 06/13/2023) [address]25-2014 History of Past illness Narrative* Problem Noted Date Diagnosed Date Resolved Date Hypokalemia 02/26/2014 04/10/2017 Vitamin D deficiency 09/03/2007 017 documented as of this encounter (statuses as of 06/13/2023) [address]25-2014 History of Past illness Narrative* Problem Noted Date Diagnosed Date Resolved Date Hypokalemia 02/26/2014 04/10/2017 Vitamin D deficiency 09/03/2007 017 documented as of this encounter (statuses as of 07/09/2023) [facility] N[facility]* Problem Noted Date Diagnosed Date Resolved Date Hypokalemia 02/26/2014 04/10/2017 Vitamin D deficiency 09/03/2007 017 documented as of this encounter (statuses as of 07/21/2023) [facility] Narrative* Problem Noted Date Diagnosed Date Resolved Date Hypokalemia 02/26/2014 04/10/2017 Vitamin D deficiency 09/03/2007 017 documented as of this encounter (statuses as of 08/10/2023) [facility] Narrative* Problem Noted Date Diagnosed Date Resolved Date Hypokalemia 02/26/2014 04/10/2017 Vitamin D deficiency 09/03/2007 017 documented as of this encounter (statuses as of 08/27/2023) [facility] N[facility]ative* Problem Noted Date Diagnosed Date Resolved Date Hypokalemia 02/26/2014 04/10/2017 Vitamin D deficiency 09/03/2007 017 documented as of this encounter (statuses as of 09/02/2023) [facility] N[facility]ative* Problem Noted Date Diagnosed Date Resolved Date Hypokalemia 02/26/2014 04/10/2017 Vitamin D deficiency 09/03/2007 017 documented as of this encounter (statuses as of 09/08/2023) [facility] N[facility]ative* Problem Noted Date Diagnosed Date Resolved Date Hypokalemia 02/26/2014 04/10/2017 Vitamin D deficiency 09/03/2007 017 documented as of this encounter (statuses as of 01/13/2024) [facility]* Problem Noted Date Diagnosed Date Resolved Date Hypokalemia 02/26/2014 04/10/2017 Vitamin D deficiency 09/03/2007 017 documented as of this encounter (statuses as of 02/07/2024) [facility]* Problem Noted Date Diagnosed Date Resolved Date Hypokalemia 02/26/2014 04/10/2017 Vitamin D deficiency 09/03/2007 017 documented as of this encounter (statuses as of 02/18/2024) [facility] N[facility]ative* Problem Noted Date Diagnosed Date Resolved Date Hypokalemia 02/26/2014 04/10/2017 Vitamin D deficiency 09/03/2007 017 documented as of this encounter (statuses as of 02/19/2024) [facility] note* Diagnosis Visit for screening mammogram- Primary Other screening mammogram [facility] Diagnosis Essential hypertension, benign- Primary Hyperlipidemia with target LDL less than 100 Other and unspecified hyperlipidemia Tobacco abuse Tobacco use disorder documented in this encounter [facility]* Diagnosis Essential hypertension, benign- Primary documented in this encounter [facility] note* Diagnosis Uncontrolled hypertension- Primary Unspecified essential hypertension [facility]* Diagnosis Uncontrolled hypertension- Primary Unspecified essential hypertension [facility]* Diagnosis Uncontrolled hypertension Unspecified essential hypertension [facility]* Diagnosis Visit for screening mammogram- Primary Other screening mammogram [facility] Diagnosis Uncontrolled hypertension Unspecified essential hypertension [facility] Diagnosis Uncontrolled hypertension Unspecified essential hypertension documented [facility] this [facility]* Diagnosis Uncontrolled hypertension Unspecified essential hypertension documented [facility]* Diagnosis Essential hypertension, benign- Primary Resistant hypertension documented in this [facility]* Diagnosis Essential hypertension, benign Resistant hypertension documented in this [facility]* Diagnosis Essential hypertension, benign Uncontrolled hypertension Unspecified essential hypertension [facility]* Diagnosis Essential hypertension, benign- Primary Uncontrolled hypertension Unspecified essential hypertension [facility]* Diagnosis Essential hypertension, benign Uncontrolled hypertension Unspecified essential hypertension [facility]* Diagnosis Open wound- Primary Open wound(s) (multiple) of unspecified site(s), without mention of complication documented in this encounter [facility]* Diagnosis Encounter for Medicare annual wellness [...] vascular disease, unspecified [facility]* Diagnosis Age-related osteoporosis without current pathological fracture Senile osteoporosis documented [facility]* Diagnosis Essential hypertension, benign documented in this encounter [facility]* Diagnosis Osteoporosis, unspecified osteoporosis type, unspecified pathological fracture presence- Primary Essential hypertension, benign documented in this encounter [facility] note* Diagnosis Essential hypertension, benign- Primary Resistant hypertension Uncontrolled hypertension Unspecified essential hypertension Osteoporosis, unspecified osteoporosis type, unspecified pathological fracture presence Claudication Peripheral vascular disease, unspecified Tobacco use disorder documented in this encounter [facility] noteNo assessment information availableWCherrington Hospital Work Phone: History and physical note Author Conchita Burns [facility] Note Date/Time June 29, 2025 4: 29pm [facility] Medical Records Department [address] [place] [id number] H&P Exam - Hospitalist 06/29/25 1604 MR#: [id number] Acct: [id number] Name: ALVARADO COHEN CALLI Rep #:[id number] : 1945 80 From: Conchita Burns MD PCP: Dr. Glenny Luque MD Status:AD M IN Location: ICU ICU05-1 HPI - General General Date of Admission: 06/29/25 Date of Service: 06/29/25 Chief Complaint: Increase shortness of breath, weight gain, lower extremity swelling HPI Narrative ALVARADO COHEN, is a [id number] female history of hyponatremia, hypertension, renal artery stenosis presented [facility] ED 06/29/2025 due to increased weight gain, leg swelling, shortness of breath. In the ED temp 97.2, heart rate of 66 and blood pressure 199/64, respiratory rate of 24 and patient 83% on 6 L of nasal cannula and was placed on BiPAP. CBC with a hemoglobin of 11.5 and white blood cell count 8.6. BMP with sodium of 124, BUN of 21 and creatinine 0.95. BNP found to be 10,000 up from 5000-month ago and chest x-ray with small bilateral pleural effusions and vascular congestion. Patient given IV Lasix and hospitalist contacted for admission for hypoxia and fluid overload. Patient evaluated at bedside, she reports since she has been out of the hospital she has been gaining weight slowly and started having shortness of breath off and on over the past couple of weeks with her breathing worsening significantly over the past 1 to 2 days, also notes 1 week of cough with white phlegm. No fevers or chills. Notes sometime in the past couple of weeks she was given 4 days of Lasix which helped get fluid off of her but it was not continued due to her problems with sodium and she gained the weight back. Denies any fevers at home, no chest pain. Is feeling better with BiPAP and is saturating well. Also reports increased lower extremity swelling [facility] Medical History (Updated 06/29/25 @ 16:[address] Conchita Burns MD) Former smoker GI bleed GI bleed HTN (hypertension) Kidney disease Osteoporosis Renal artery stenosis Home Medications ?Medication ?Instructions ?Recorded ?Last Taken ?Type amlodipine 10 mg tablet 10 mg PO DAILY 03/21/2306/05 History metoprolol succinate 50 mg 50 mg PO BID 08/27/2406/29 History tablet,extended release 24 hr ferrous sulfate 325 mg (65 mg 325 mg PO 1200,1700 #60 tabs 06/06/25 06/29/25 Rx iron) tablet (FeroSul) hydralazine 50 mg tablet 100 mg (2 x 50 mg) PO TID #9 0 tabs 06/06/25 06/29/25 Rx isosorbide dinitrate 20 mg tablet 40 mg (2 x 20 mg) PO TID #90 tabs 06/06/25 06/29/25 Rx pantoprazole 40 mg tablet,delayed 40 mg PO BID #60 tab s 06/06/25 06/29/25 Rx release sucralfate 1 gram tablet 1 g PO 1HR_ACHS #120 tabs 06/29/25 Rx Allergy/AdvReac Type Severity Reaction Status Date / [...] denies stuffy nose, denies sore throat EYES: Denies changes in vision Resp: Cough with white phlegm, increased shortness of breath over several weeks but more so in the past 24 to 48 hours Cardiac: Denies chest pain GI: Denies abdominal pain, denies changes in bowel, denies nausea/vomiting : Denies changes in urination Extremity: Has had some increased swelling in lower extremities MSK: Denies weakness Neuro: Denies any numbness/tingling Heme: Denies any bleeding or bruising Skin: Denies rashes Psychiatric: No complaints voiced Vital Signs Vital Signs Vital Signs: 06/29/25 13:12 06/29/25 13:19 06/29/25 13:20 Temperature 97.2 F L Temperature Source Temporal Pulse Rate 66 Respiratory Rate 24 H Respiratory Effort Labored Accessory Muscle Use Splinting Respiratory Pattern Tachypnea Blood Pressure 199/64 H Blood Pressure Mean 109 Pulse Ox 92 83 Oxygen Delivery Method Nasal Cannula Nasal Cannula Oxygen Flow Rate (L/min) 3 6 Fraction of Inspired Oxygen (FIO2) 06/29/25 13:38 06/29/25 13:46 06/29/25 14:05 Temperature Temperature Source Pulse Rate 68 64 Respiratory Rate 22 H 20 H Respiratory Effort Respiratory Pattern Tachypnea Blood Pressure 206/69 H Blood Pressure Mean 114 Pulse Ox 95 95 97 Oxygen Delivery Method Bi-pap Bi-pap Oxygen Flow Rate (L/min) Fraction of Inspired Oxygen (FIO2) 50 06/29/25 14:13 06/29/25 15:15 06/29/25 15:40 Temperature 97.2 F L Temperature Source Pulse Rate 65 70 64 Respiratory Rate 20 H 22 H 24 H Respiratory Effort Respiratory Pattern Normal Tachypnea Blood Pressure 201/78 H Blood Pressure Mean 119 Pulse Ox 98 97 Oxygen Delivery Method Oxygen Flow Rate (L/min) Fraction of Inspired Oxygen (FIO2) 35 06/29/25 15:50 Temperature Temperature Source Pulse Rate 67 Respiratory Rate 22 H Respiratory Effort Respiratory Pattern Blood Pressure 204/71 H Blood Pressure Mean 115 Pulse Ox 95 Oxygen Delivery Method Bi-pap Oxygen Flow Rate (L/min) Fraction of Inspired Oxygen (FIO2) Weight Weight: 65.5 kg Body Mass Index (BMI) 25.5 Physical Exam Narrative General: Alert, oriented, no apparent distress HEENT: Atraumatic, normocephalic Eyes: Anicteric, normal conjunctiva, extraocular movements grossly intact Neck: Supple Respiratory: Patient appears comfortable on BiPAP, does have crackles bilaterally Cardiovascular: Regular rate and rhythm GI: Soft, nontender, nondistended Extremities: No significant pitting in legs Musculoskeletal: Moving all extremities Neuro: No overt focal neurological deficits Skin: No rashes appreciated Psych: Cooperative Results Lab / Micro Data 06/29/25 13:40 06/29/25 13:40 Labs: Laboratory Results - last 24 hr 06/29/25 13:40: WBC 8.6, RBC 3.80 L, Hgb 11.5 L, Hct 32.2 L, MCV 84.7, MCH 30.3,MCHC 35.7, RDW Std Deviation 46.7 H, RDW Coeff of Cathleen 15.0 H, Plt Count 289, MPV9.6, Immature Gran % (Auto) 0.200, Neut % (Auto) 81.7 H, Lymph % (Auto) 8.4 L, Porter % (Auto) 8.1, Eos % (Auto) 0.9, Baso % (Auto) 0.7, Absolute Neuts (auto) 7.0, Absolute Lymphs (auto) 0.72 L, Nucleated RBC % 0, Sodium 124 L, Potassium 3.8, Chloride 88 L, Carbon Dioxide 21.4, Anion Gap 15, BUN 21 H, Creatinine 0.95, Estim Creat Clear Calc 43.69 L, Est GFR (MDRD) Non-Af 61, BUN/Creatinine Ratio 22.5 H, Glucose 112 H, Calcium 9.2, [place] [address] H Micro: Microbiology 06/29/25 13:50 Mucosa - Nose SARS-CoV-2, Influenza & RSV (PCR) - Final Imaging Radiology Impression Chest X-Ray 06/29/25 13:43 IMPRESSION: CHF. Small bilateral pleural effusions with bibasilar atelectasis and/or infiltrates. Follow-up recommended. Reading Location: [id number] Assessment & Plan Assessment/Plan (1) Fluid overload: (2) Hyponatremia: PLAN: Plan # Hypoxia secondary to pulmonary edema suspected secondary to hypertensive emergency - Most recent echocardiogram 05/31/2025 with PASP of 52, moderate pulmonary hypertension, moderate 2+ mitral valve insufficiency with normal EF of 65% and normal LV size -There is no noted diastolic or systolic dysfunction however chest x-ray shows pulmonary edema and small pleural effusions and proBNP up to 10,326, 1 month agoit was in the 5000's -Patient has slowly been gaining weight after being taken off of her hydrochlorothiazide last admission due to hyponatremia and has not been on the diuretic and then significantly worsened in the past 24 to 48 hours -Blood pressures have been in the 200s systolic in the ED -Suspect this may be hypertensive emergency especially given lack of known heartfailure with an echo 1 month ago -Will start patient on a Cardene drip and start IV Lasix -Will adjust patient's home medications to improve blood pressure control, will switch metoprolol to Coreg at equivalent dose to hopefully improve blood pressure control, can always uptitrate this dose further if heart rate allows -May need discharged on a diuretic in addition to her other medications - Fluid restriction -Monitor intake, output, daily weights - Patient is improving after 1 dose of Lasix and BiPAP # Hyponatremia - Sodium of 124, was admitted late last month due to severe hyponatremia with a sodium of 106 that slowly improved and on discharge was 126 - On 06/21 sodium was 132 - May have had further downtrend secondary to hypervolemia - Will trend BMPs to verify sodium without further downtrends # Renal artery stenosis - Has been evaluated by vascular multiple times with no intervention currently indicated - Do suspect patient had decompensation due to adjustment in blood pressure medications on top of this but do not necessarily think she needs transferred for any acute intervention suspect that medication adjustments will suffice and she can follow-up outpatient with vascular again if indicated #GERD -Continue PPI #DVT ppx: SCDs Conchita Burns MD Charges/Coding Visit Charges Inpatient E&M: 09621 Init Hosp L2 06/29/25 1623 <Electronically signed by Conchita Burns MD> Cosigner Signature (if applicable): CC: Dr. Glenny Luque MD; Dr. Conchita Burns MD~ Signed [facility] Work Phone: Reason for referral (narrative)* Diagnostic Procedure Only (Routine) - Pending Review Specialty Diagnoses / Procedures Referred By Contac t Referred To Contact [facility] Diagnoses Visit for screening mammogram Procedures JOSEFA SCREENING SCREENING MAMMOGRAPHY BI 2-VIEW BREAST INC Indio Busby APRN.CNP, DNP [address] [place] [address] [facility] [address] [id number] Referral ID Status Reason Start Date Expiration Date Visits Requested Visits Authorized [id number] Pending Review Auto-Generat ed Referral 06/08/2022 07/08/2023 1 1 [facility] for referral (narrative)* Diagnostic Procedure Only (Routine) - Pending Review Specialty Diagnoses / Procedures Referred By Contac t Referred To Contact [facility] Diagnoses Visit for screening mammogram Procedures JOSEFA SCREENING SCREENING MAMMOGRAPHY BI 2-VIEW BREAST INC Glenny Melton MD [address] [place] [address] [facility] [address] [place] [address] Referral ID Status Reason Start Date Expiration Date Visits Requested Visits Authorized [id number] Pending Review Auto-Generat ed Referral 07/21/2023 08/17/2024 1 1 [facility] for referral (narrative)* Diagnostic Procedure Only (Routine) - Authorized Specialty Diagnoses / Procedures Referred By Contac t Referred To Contact US IMAGING Diagnoses Essential hypertension, benign Resistant hypertension Procedures US KIDNEY/BLADDER US RETROPERITONEAL REAL TIME W/IMAGE COMPLETE Hans Mccray APRN.CNP [address] [place] [address] [place] [id number] Referral ID Status Reason Start Date Expiration Date Visits Requested Visits Authorized [id number] Authorized Auto-Generat ed Referral 02/17/2024 03/18/2025 1 1 [facility] Diagnostic Procedure Only (Routine) - Authorized Specialty Diagnoses / Procedures Referred By Contac t Referred To Contact XR IMAGING Diagnoses Age-related osteoporosis without current pathological fracture Procedures DXA-AXIAL SKELETON DXA BONE DENSITY STUDY / SITES AXIAL Glenny Dial MD [address] [place] [address] [place] [id number] Referral ID Status Reason Start Date Expiration Date Visits Requested Visits Authorized [id number] Authorized Auto-Generat ed Referral 11/26/2024 12/26/2025 1 1 * Outpatient Procedure (Routine) - Authorized Specialty Diagnoses / Procedures Referred By Sallie t Referred To [facility] Diagnoses Uncontrolled hypertension Leg fatigue Claudication (HCC) Procedures PVR ANK PRESS PEARL VAS LAB NON-INVAS PHYSIOLOGIC STD EXTREMITY ART 2 LEVEL Glenny Luque MD [address] [place] [address] [facility] [place] [address] [place] [address] Referral ID Status Reason Start Date Expiration Date Visits Requested Visits Authorized [id number] Authorized Auto-Generat ed Referral 11/26/2024 11/26/2025 1 1 [facility] ([facility]ative)No reason for referral information availableWCherrington Hospital Work Phone: Reason for visit Narrative* Diagnostic Procedure Only (Routine) - Closed Specialty Diagnoses / Procedures Referred By Contac t Referred To Contact [facility] Diagnoses Visit for screening mammogram Procedures JOSEFA SCREENING SCREENING MAMMOGRAPHY BI 2-VIEW BREAST INC CAD Indio Robledo APRN.NIKKI, DNP [address] [place] [address] [facility] [address] [place] [address] Referral ID Status Reason Start Date Expiration Date V isits Requested Visits Authorized [id number] Closed Auto-Generated Referral Patient Cleared - INN Insurance Found 06/08/2022 07/08/2023 1 1 [facility] for visit Narrative* Diagnostic Procedure Only (Routine) - Closed Specialty Diagnoses / Procedures Referred By Contac t Referred To Contact [facility] Diagnoses Visit for screening mammogram Procedures JOSEFA SCREENING SCREENING MAMMOGRAPHY BI 2-VIEW BREAST INC Glenny Melton MD [address] [place] [address] [facility] [address] [place] [address] Referral ID Status Reason Start Date Expiration Date V isits Requested Visits Authorized [id number] Closed Auto-Generate d Referral 07/21/2023 08/17/2024 1 1 [facility] for visit Narrative* Diagnostic Procedure Only (Routine) - Closed Specialty Diagnoses / Procedures Referred By Contac t Referred To Contact [facility] Diagnoses Visit for screening mammogram Procedures JOSEFA SCREENING SCREENING MAMMOGRAPHY BI 2-VIEW BREAST INC Glenny Melton MD [address] [place] [address] [facility] [address] [place] [address] Referral ID Status Reason Start Date Expiration Date V isits Requested Visits Authorized [id number] Closed Auto-Generate d Referral 09/21/2024 10/18/2025 1 1 [facility] for visit Narrative* Diagnostic Procedure Only (Routine) - Closed Specialty Diagnoses / Procedures Referred By Contac t Referred To Contact XR IMAGING Diagnoses Age-related osteoporosis without current pathological fracture Procedures DXA-AXIAL SKELETON DXA BONE DENSITY STUDY 1/> [place] [address] [place] [address] Phone: tel: fax: [place] [phone] Referral ID Status Reason Start Date Expiration Date V isits Requested Visits Authorized [id number] Closed Auto-Generate d Referral 11/26/2024 12/26/2025 1 1 [facility] Advance Directives Documents on File Type Date Recorded Patient Buggy Driver Expl anation Advance Directive(s) 06/10/2017 11:09 AM Advance Directive(s) 06/10/2017 10:58 AM Documents on File Type Date Recorded Patient Buggy Driver Expl anation Advance Directive(s) 06/10/2017 10:58 AM Documents on File Type Date Recorded Patient Buggy Driver Expl anation Advance Directive(s) 06/10/2017 10:58 AM Advance Directive Response Recorded Date/ Time Do you have a Healthcare Power of Draw Bench Operator? Yes May 29, 2025 2:07pm Advance Directives No October 07, 2024 8:39am Advance Directive Response Recorded Date/ Time Do you have a Healthcare Power of Draw Bench Operator? No May 29, 2025 5:13pm Advance Directives No October 07, 2024 8:39am Advance Directive Response Recorded Date/ Time Do you have a Healthcare Power of Draw Bench Operator? No May 29, 2025 5:13pm Do you have a Healthcare Power of Draw Bench Operator? No June 29, 2025 1:19pm Advance Directives No October 07, 2024 8:39am Reason for Referral Specialty Diagnoses / Procedures Referred By Contac t Referred To Contact Nephrology Diagnoses Uncontrolled hypertension Procedures CONSULT TO NEPHROLOGY OFFICE/OUTPATIENT NEW HIGH MDM 60-74 MINUTES Laurel Toure, EXCEL SPECIALIST.MEDICAL POLICY SPECIALIST [address] [place] [address] Referral ID Status Reason Start Date Expiration Date Visits Requested Visits Authorized [id number] Authorized PCP Requested Referral 05/08/2023 05/07/2024 1 1 Specialty Diagnoses / Procedures Referred By Contac t Referred To Contact Nephrology Diagnoses Essential hypertension, benign Uncontrolled hypertension Procedures CONSULT TO NEPHROLOGY OFFICE/OUTPATIENT NEW HIGH MDM 60 MINUTES Hans Mccray, EXCEL SPECIALIST.MEDICAL POLICY SPECIALIST [address] [place] [address] Referral ID Status Reason Start Date Expiration Date Visits Requested Visits Authorized [id number] Authorized PCP Requested Referral 03/20/2024 03/20/2025 1 1 Chief Complaint and Reason for Visit Chief [...] 23pm Anemia May 29, 2025 4:23 pm Chief Complaint [...] 9am HYPONATREMIA June 06, 2025 7:3 8am BMP June 14, 2025 1: 29pm WEAKNESS RX HERE June 14, 2025 1: 43pm Reason for Visit Admit Date ANTONINO (acute kidney injury) May 29 4:23pm Hypo-osmolar hyponatremia May 29 4:23pm Uncontrolled hypertension May 29 4:23pm Acute anemia May 29, 2025 4:23 pm Hypokalemia May 29, 2025 4:23 pm Hypomagnesemia May 29, 2025 4:23 pm Hypotension May 29, 2025 4:23 pm Lower extremity weakness May 29, 2025 4:23pm Paresthesia of lower extremity May 4:23pm GI bleed May 29, 2025 4:23 pm Renal artery stenosis May 29, 2025 4: 23pm Anemia May 29, 2025 4:23 pm Hyponatremia May 29, 2025 4:23 pm Chief Complaint [...] 9am HYPONATREMIA June 06, 2025 7:3 8am BMP June 14, 2025 1: 29pm S/O- LABS ONCE A WEEK June 21, 2025 1:32pm WEAKNESS RX HERE June 22, 2025 1: 30pm Chief Complaint Admit Date HYPONATREMIA May 29, [...] 9am HYPONATREMIA June 06, 2025 7:3 8am BMP June 14, 2025 1: 29pm S/O- LABS ONCE A WEEK June 21, 2025 1:32pm WEAKNESS RX HERE June 22, 2025 1: 30pm BYPERTENSIVE EMERGENCY June 29, 2025 4:03pm BYPERTENSIVE EMERGENCY June 29, 2025 4:04pm Reason for Visit Admit Date ANTONINO (acute kidney injury) May 29 4:23pm Hypo-osmolar hyponatremia May 29 4:23pm Uncontrolled hypertension May 29 4:23pm Acute anemia May 29, 2025 4:23 pm Hypokalemia May 29, 2025 4:23 pm Hypomagnesemia May 29, 2025 4:23 pm Hypotension May 29, 2025 4:23 pm Lower extremity weakness May 29, 2025 4:23pm Paresthesia of lower extremity May 4:23pm GI bleed May 29, 2025 4:23 pm Renal artery stenosis May 29, 2025 4: 23pm Anemia May 29, 2025 4:23 pm Hyponatremia May 29, 2025 4:23 pm Bilateral pleural effusion June 29, 2025 4:03pm CHF (congestive heart failure) June 292024 4:03pm Fluid overload June 29, 2025 4: 03pm Hyponatremia June 29, 2025 4: 03pm Uncontrolled hypertension June 29, 2 025 4:03pm Family History Relationship Condition Age at Onset Recorded Date/T frantz Not Specified Malignant neoplasm Unknown Hypertension Unknown Asthma Unknown Summary Purpose Additional Source Comments Source Comments (unrecognize d section and content) In the event this informatio n is protected by the Federal Confidentiality of Alcohol and Drug Abuse Patient Records regulations: The Federal rules restrict any use of the information to criminally investigate or prosecute any alcohol or drug abuse patient.[facility] the event this information is protected by the Federal Confidentiality of Alcohol and Drug Abuse Patient Records regulations: The Federal rules restrict any use of the information to criminally investigate or prosecute any alcohol or drug abuse patient.[facility] the event this information is protected by the Federal Confidentiality of Alcohol and Drug Abuse Patient Records regulations: The Federal rules restrict any use of the information to criminally investigate or prosecute any alcohol or drug abuse patient.[facility] Hospital[facility] the event this information is protected by the Federal Confidentiality of Alcohol and Drug Abuse Patient Records regulations: The Federal rules restrict any use of the information to criminally investigate or prosecute any alcohol or drug abuse patient.[facility] Hospital[facility] the event this information is protected by the Federal Confidentiality of Alcohol and Drug Abuse Patient Records regulations: The Federal rules restrict any use of the information to criminally investigate or prosecute any alcohol or drug abuse patient.[facility] Hospital[facility] the event this information is protected by the Federal Confidentiality of Alcohol and Drug Abuse Patient Records regulations: The Federal rules restrict any use of the information to criminally investigate or prosecute any alcohol or drug abuse patient.[facility] Hospital[facility] the event this information is protected by the Federal Confidentiality of Alcohol and Drug Abuse Patient Records regulations: The Federal rules restrict any use of the information to criminally investigate or prosecute any alcohol or drug abuse patient.[facility] Hospital[facility] the event this information is protected by the Federal Confidentiality of Alcohol and Drug Abuse Patient Records regulations: The Federal rules restrict any use of the information to criminally investigate or prosecute any alcohol or drug abuse patient.[facility] Hospital[facility] the event this information is protected by the Federal Confidentiality of Alcohol and Drug Abuse Patient Records regulations: The Federal rules restrict any use of the information to criminally investigate or prosecute any alcohol or drug abuse patient.[facility] Hospital[facility] the event this information is protected by the Federal Confidentiality of Alcohol and Drug Abuse Patient Records regulations: The Federal rules restrict any use of the information to criminally investigate or prosecute any alcohol or drug abuse patient.[facility] Hospital[facility] the event this information is protected by the Federal Confidentiality of Alcohol and Drug Abuse Patient Records regulations: The Federal rules restrict any use of the information to criminally investigate or prosecute any alcohol or drug abuse patient.[facility] HospitalIn the event this information is protected by the Federal Confidentiality of Alcohol and Drug Abuse Patient Records regulations: The Federal rules restrict any use of the information to criminally investigate or prosecute any alcohol or drug abuse patient.[facility] HospitalIn the event this information is protected by the Federal Confidentiality of Alcohol and Drug Abuse Patient Records regulations: The Federal rules restrict any use of the information to criminally investigate or prosecute any alcohol or drug abuse patient.[facility] HospitalIn the event this information is protected by the Federal Confidentiality of Alcohol and Drug Abuse Patient Records regulations: The Federal rules restrict any use of the information to criminally investigate or prosecute any alcohol or drug abuse patient.[facility] HospitalIn the event this information is protected by the Federal Confidentiality of Alcohol and Drug Abuse Patient Records regulations: The Federal rules restrict any use of the information to criminally investigate or prosecute any alcohol or drug abuse patient.[facility] HospitalIn the event this information is protected by the Federal Confidentiality of Alcohol and Drug Abuse Patient Records regulations: The Federal rules restrict any use of the information to criminally investigate or prosecute any alcohol or drug abuse patient.[facility] HospitalIn the event this information is protected by the Federal Confidentiality of Alcohol and Drug Abuse Patient Records regulations: The Federal rules restrict any use of the information to criminally investigate or prosecute any alcohol or drug abuse patient.[facility] HospitalIn the event this information is protected by the Federal Confidentiality of Alcohol and Drug Abuse Patient Records regulations: The Federal rules restrict any use of the information to criminally investigate or prosecute any alcohol or drug abuse patient.[facility] HospitalIn the event this information is protected by the Federal Confidentiality of Alcohol and Drug Abuse Patient Records regulations: The Federal rules restrict any use of the information to criminally investigate or prosecute any alcohol or drug abuse patient.[facility] HospitalIn the event this information is protected by the Federal Confidentiality of Alcohol and Drug Abuse Patient Records regulations: The Federal rules restrict any use of the information to criminally investigate or prosecute any alcohol or drug abuse patient.[facility] HospitalIn the event this information is protected by the Federal Confidentiality of Alcohol and Drug Abuse Patient Records regulations: The Federal rules restrict any use of the information to criminally investigate or prosecute any alcohol or drug abuse patient.[facility] HospitalIn the event this information is protected by the Federal Confidentiality of Alcohol and Drug Abuse Patient Records regulations: The Federal rules restrict any use of the information to criminally investigate or prosecute any alcohol or drug abuse patient.[facility] HospitalIn the event this information is protected by the Federal Confidentiality of Alcohol and Drug Abuse Patient Records regulations: The Federal rules restrict any use of the information to criminally investigate or prosecute any alcohol or drug abuse patient.[facility] HospitalIn the event this information is protected by the Federal Confidentiality of Alcohol and Drug Abuse Patient Records regulations: The Federal rules restrict any use of the information to criminally investigate or prosecute any alcohol or drug abuse patient.[facility] HospitalIn the event this information is protected by the Federal Confidentiality of Alcohol and Drug Abuse Patient Records regulations: The Federal rules restrict any use of the information to criminally investigate or prosecute any alcohol or drug abuse patient.[facility] HospitalIn the event this information is protected by the Federal Confidentiality of Alcohol and Drug Abuse Patient Records regulations: The Federal rules restrict any use of the information to criminally investigate or prosecute any alcohol or drug abuse patient.[facility] HospitalIn the event this information is protected by the Federal Confidentiality of Alcohol and Drug Abuse Patient Records regulations: The Federal rules restrict any use of the information to criminally investigate or prosecute any alcohol or drug abuse patient.[facility] HospitalIn the event this information is protected by the Federal Confidentiality of Alcohol and Drug Abuse Patient Records regulations: The Federal rules restrict any use of the information to criminally investigate or prosecute any alcohol or drug abuse patient.[facility] HospitalIn the event this information is protected by the Federal Confidentiality of Alcohol and Drug Abuse Patient Records regulations: The Federal rules restrict any use of the information to criminally investigate or prosecute any alcohol or drug abuse patient.[facility] HospitalIn the event this information is protected by the Federal Confidentiality of Alcohol and Drug Abuse Patient Records regulations: The Federal rules restrict any use of the information to criminally investigate or prosecute any alcohol or drug abuse patient.[facility] HospitalIn the event this information is protected by the Federal Confidentiality of Alcohol and Drug Abuse Patient Records regulations: The Federal rules restrict any use of the information to criminally investigate or prosecute any alcohol or drug abuse patient.[facility] HospitalIn the event this information is protected by the Federal Confidentiality of Alcohol and Drug Abuse Patient Records regulations: The Federal rules restrict any use of the information to criminally investigate or prosecute any alcohol or drug abuse patient.[facility] HospitalIn the event this information is protected by the Federal Confidentiality of Alcohol and Drug Abuse Patient Records regulations: The Federal rules restrict any use of the information to criminally investigate or prosecute any alcohol or drug abuse patient.[facility] HospitalIn the event this information is protected by the Federal Confidentiality of Alcohol and Drug Abuse Patient Records regulations: The Federal rules restrict any use of the information to criminally investigate or prosecute any alcohol or drug abuse patient.[facility] HospitalIn the event this information is protected by the Federal Confidentiality of Alcohol and Drug Abuse Patient Records regulations: The Federal rules restrict any use of the information to criminally investigate or prosecute any alcohol or drug abuse patient.[facility] HospitalIn the event this information is protected by the Federal Confidentiality of Alcohol and Drug Abuse Patient Records regulations: The Federal rules restrict any use of the information to criminally investigate or prosecute any alcohol or drug abuse patient.[facility] HospitalIn the event this information is protected by the Federal Confidentiality of Alcohol and Drug Abuse Patient Records regulations: The Federal rules restrict any use of the information to criminally investigate or prosecute any alcohol or drug abuse patient.[facility] HospitalIn the event this information is protected by the Federal Confidentiality of Alcohol and Drug Abuse Patient Records regulations: The Federal rules restrict any use of the information to criminally investigate or prosecute any alcohol or drug abuse patient.[facility] HospitalIn the event this information is protected by the Federal Confidentiality of Alcohol and Drug Abuse Patient Records regulations: The Federal rules restrict any use of the information to criminally investigate or prosecute any alcohol or drug abuse patient.[facility] HospitalIn the event this information is protected by the Federal Confidentiality of Alcohol and Drug Abuse Patient Records regulations: The Federal rules restrict any use of the information to criminally investigate or prosecute any alcohol or drug abuse patient.[facility] HospitalIn the event this information is protected by the Federal Confidentiality of Alcohol and Drug Abuse Patient Records regulations: The Federal rules restrict any use of the information to criminally investigate or prosecute any alcohol or drug abuse patient.[facility] Care Teams (unrecognized sec tion and content) Humanities Professor Relationship Specialty Start Date End Date Indio Robledo APRN.RODRIGUEZ JORDAN [address] [place] [address] PCP - General Family Practice 10/11/21 Humanities Professor Relationship Specialty Start Date End Date Indio Robledo APRN.RODRIGUEZ JORDAN [address] [place] [address] PCP - General Family Practice 10/11/21 Humanities Professor Relationship Specialty Start Date End Date Glenny Luque MD [address] [place] [address] PCP - General Family Medicine 08/27/22 Humanities Professor Relationship Specialty Start Date End Date Glenny Luque MD [address] [place] [address] PCP - General Family Medicine 08/27/22 Humanities Professor Relationship Specialty Start Date End Date Glenny Luque MD [address] [place] [address] PCP - General Family Medicine 08/27/22 Humanities Professor Relationship Specialty Start Date End Date Glenny Luque MD [address] [place] [address] PCP - General Family Medicine 08/27/22 Humanities Professor Relationship Specialty Start Date End Date Glenny Luque MD [address] [place] [address] PCP - General Family Medicine 08/27/22 Humanities Professor Relationship Specialty Start Date End Date Glenny Luque MD [address] [place] [address] PCP - General Family Medicine 08/27/22 Humanities Professor Relationship Specialty Start Date End Date Glenny Luque MD [address] [place] [address] PCP - General Family Medicine 08/27/22 Humanities Professor Relationship Specialty Start Date End Date Glenny Luque MD [address] [place] [address] PCP - General Family Medicine 08/27/22 Humanities Professor Relationship Specialty Start Date End Date Glenny Luque MD [address] [place] [address] PCP - General Family Medicine 08/27/22 Humanities Professor Relationship Specialty Start Date End Date Glenny Luque MD [address] [place] [address] PCP - General Family Medicine 08/27/22 Humanities Professor Relationship Specialty Start Date End Date Glenny Luque MD [address] [place] [address] PCP - General Family Medicine 08/27/22 Humanities Professor Relationship Specialty Start Date End Date Glenny Luque MD [address] [place] [address] PCP - General Family Medicine 08/27/22 Humanities Professor Relationship Specialty Start Date End Date Glenny Luque MD [address] [place] [address] PCP - General Family Medicine 08/27/22 Humanities Professor Relationship Specialty Start Date End Date Glenny Luque MD [address] [place] [address] PCP - General Family Medicine 08/27/22 Humanities Professor Relationship Specialty Start Date End Date Glenny Luque MD [address] [place] [address] PCP - General Family Medicine 08/27/22 Humanities Professor Relationship Specialty Start Date End Date Glenny Luque MD [address] [place] [address] PCP - General Family Medicine 08/27/22 Humanities Professor Relationship Specialty Start Date End Date Glenny Luque MD [address] [place] [address] PCP - General Family Medicine 08/27/22 Humanities Professor Relationship Specialty Start Date End Date Glenny Luque MD [address] [place] [address] PCP - General Family Medicine 08/27/22 Humanities Professor Relationship Specialty Start Date End Date Glenny Luque MD [address] [place] [address] PCP - General Family Medicine 08/27/22 Humanities Professor Relationship Specialty Start Date End Date Glenny Luque MD [address] [place] [address] PCP - General Family Medicine 08/27/22 Laurel Toure APRN.MEDICAL POLICY SPECIALIST [address] [place] [address] Real Estate Leasing Manager Family Medicine 10/11/24 Hans Mccray APRN.MEDICAL POLICY SPECIALIST [address] [place] [address] Real Estate Leasing Manager Family Medicine 10/20/24 Humanities Professor Relationship Specialty Start Date End Date Glenny Luque MD [address] [place] [address] PCP - General Family Medicine 08/27/22 Laurel Toure APRN.MEDICAL POLICY SPECIALIST [address] [place] [address] Real Estate Leasing Manager Family Medicine 10/11/24 Hans Mccray APRN.MEDICAL POLICY SPECIALIST [address] [place] [address] Real Estate Leasing Manager Family Medicine 10/20/24 Humanities Professor Relationship Specialty Start Date End Date Glenny Luque MD [address] [place] [address] PCP - General Family Medicine 08/27/22 Laurel Toure APRN.MEDICAL POLICY SPECIALIST [address] [place] [address] Real Estate Leasing Manager Family Medicine 10/11/24 Hans Mccray APRN.MEDICAL POLICY SPECIALIST [address] [place] [address] Real Estate Leasing Manager Family Medicine 10/20/24 Humanities Professor Relationship Specialty Start Date End Date Glenny Luque MD [address] [place] [address] PCP - General Family Medicine 08/27/22 Laurel Toure APRN.MEDICAL POLICY SPECIALIST [address] [place] [address] Real Estate Leasing Manager Family Medicine 10/11/24 Hans Mccray APRN.MEDICAL POLICY SPECIALIST [address] [place] [address] Real Estate Leasing Manager Family Medicine 10/20/24 Humanities Professor Relationship Specialty Start Date End Date Glenny Luque MD [address] [place] [address] PCP - General Family Medicine 08/27/22 Laurel Toure EXCEL SPECIALIST.MEDICAL POLICY SPECIALIST [address] [place] [address] Real Estate Leasing Manager Family Medicine 10/11/24 Hans Mccray EXCEL SPECIALIST.MEDICAL POLICY SPECIALIST [address] [place] [address] Real Estate Leasing Manager Family Medicine 10/20/24 Humanities Professor Relationship Specialty Start Date End Date Glenny Luque MD [address] [place] [address] PCP - General Family Medicine 08/27/22 Hans Mccray APRN.MEDICAL POLICY SPECIALIST [address] [place] [address] Real Estate Leasing Manager [facility] 10/20/24 Humanities Professor Relationship Specialty Start Date End Date Glenny Luque MD [address] [place] [address] PCP - General Family Medicine 08/27/22 Hans Mccray APRN.MEDICAL POLICY SPECIALIST [address] [place] [address] Real Estate Leasing Manager [facility] 10/20/24 Humanities Professor Relationship Specialty Start Date End Date Glenny Luque MD [address] [place] [address] PCP - General Family Medicine 08/27/22 Hans Mccray APRN.MEDICAL POLICY SPECIALIST [address] [place] [address] Real Estate Leasing Manager [facility] 10/20/24 Team Status: Active Member Role/Relationship Status [...] DO Attending Provider Active S tart: May 29, 2025 End: June 06, 2025 Dr. Glenny Wetzel , DO Other Provider Active S tart: May 29, [...] Provider Active Start: May 30, 2025 Dr. Del Leyva DO Emergency Provider Active Start: May 30, 2025 Dr. Conchita Burns MD Admit Provider Active Star t: May 30, 2025 Dr. Conchita Burns MD Other Provider Active Star t: May 30, 2025 Dr. Glenny Wetzel , Attending Provider Active Start: May 30, 2025 Dr. Glenny Wetzel , DO Other Provider Active S tart: May 30, 2025 Dr. Latoya Mo MD Other Provider Active Start: May 30, 2025 Team Status: Active Member Role/Relationship Status Dates Dr. Glenny Luque MD Primary Care Provider Active Start: May 31, 2025 Dr. Del Leyva DO Emergency Provider Active Start: May 31, [...] Start: June 03, 2025 Dr. Del Leyva DO Emergency Provider Active Start: June 03, 2025 Dr. Conchita Burns MD Admit Provider Active Star t: June 03, 2025 Dr. Conchita Burns MD Other Provider Active Star t: June 03, 2025 Dr. Tiffanei Govea , DO Attending Provider Active S [...] Start: June 04, 2025 Dr. Del Leyva DO Emergency Provider Active Start: June 04, [...] Provider Active Start : June 06, 2025 Team Status: Inactive Member Role/Relationship Status Dates Dr. Glenny Luque MD Primary Care Provider Active Start: June 08, 2025 End: June 08, 2025 Dr. Nora Govea DO Attending Provider Active Start: June 08, 2025 End: June 08, 2025 Dr. Nora Govea DO Referring Provider Active Start: June 08, 2025 End: June 08, 2025 Team Status: Active Member Role/Relationship Status Dates Dr. Glenny Luque MD Primary Care Provider Active Start: June 14, 2025 Dr. Nora Govea DO Attending Provider Active Start: June 14, 2025 Dr. Nora Govea DO Referring Provider Active Start: June 14, 2025 Team Status: Active Member Role/Relationship Status Dates Dr. Glenny Luque MD Primary Care Provider Active Start: June 14, 2025 Dr. Tiffanie Govea DO Attending Provider Active S tart: June 14, 2025 Dr. Tiffanie Govea DO Referring Provider Active S tart: June 14, 2025 Team Status: Inactive Member Role/Relationship Status Dates Dr. Glenny Luque MD Primary Care Provider Active Start: June 14, 2025 End: June 14, 2025 Dr. Nora Govea DO Attending Provider Active Start: June 14, 2025 End: June 14, 2025 Dr. Nora Govea DO Referring Provider Active Start: June 14, 2025 End: June 14, 2025 Team Status: Inactive Member Role/Relationship Status Dates Dr. Glenny Luque MD Primary Care Provider Active Start: June 21, 2025 End: June 21, 2025 Dr. Nora Govea DO Attending Provider Active Start: June 21, 2025 End: June 21, 2025 Dr. Nora Govea DO Referring Provider Active Start: June 21, 2025 End: June 21, 2025 Team Status: Active Member Role/Relationship Status Dates Dr. Glenny Luque MD Primary Care Provider Active Start: June 22, 2025 Dr. Tiffanie Govea DO Attending Provider Active S tart: June 22, 2025 Dr. Tiffanie Goeva DO Referring Provider Active S tart: June 22, 2025 Team Status: Active Member Role/Relationship Status Dates Dr. Glenny Luque MD Primary Care Provider Active Start: June 01, 2025 Dr. Del Leyva DO Emergency Provider Active Start: June 01, 2025 Dr. Conchita Burns MD Admit Provider Active Star t: June 01, 2025 Dr. Conchita Burns MD Other Provider Active Star t: June 01, 2025 Dr. Tiffanie Govea , DO Referring Provider Active S tart: June 01, 2025 [...] Start: June 01, 2025 Dr. Del Leyva DO Emergency Provider Active Start: June 01, 2025 Dr. Conchita Burns MD Admit Provider Active Star t: June 01, 2025 Dr. Conchita Burns MD Other Provider Active Star t: June 01, 2025 Dr. Tiffanie Govea , DO Other Provider Active Start : June 01, 2025 Dr. Glenny Wetzel , DO Other Provider Active S tart: June 01, 2025 Dr. Nora Govea , Referring Provider Active Start: June 01, 2025 Dr. Nora Govea , DO Other Provider Active Sta rt: June 01, 2025 Dr. Porfirio Mei MD Attending Provider Active S tart: June 01, 2025 Dr. Porfirio Mei MD Other Provider Active Start : June 01, 2025 Team Status: Active Member Role/Relationship Status Dates Dr. Glenny Luque MD Primary Care Provider Active Start: June 29, 2025 El Sumner MD Emergency Provider Active Star t: June 29, 2025 Dr. Conchita Burns MD Admit Provider Active Star t: June 29, 2025 Dr. Conchita Burns MD Attending Provider Active Start: June 29, 2025 Team Status: Active Member Role/Relationship Status Dates Dr. Glenny Luque MD Primary Care Provider Active Start: June 29, 2025 El Sumner MD Emergency Provider Active Star t: June 29, 2025 Dr. Conchita Burns MD Admit Provider Active Star t: June 29, 2025 Dr. Conchita Burns MD Attending Provider Active Start: June 29, 2025 Dr. Conchita Burns MD Other Provider Active Star t: June 29, 2025 Reason for Visit (unrecogniz ed section [...] RETROPERITONEAL REAL TIME W/IMAGE COMPLETE Hans Mccray, MADHAVI.MEDICAL POLICY SPECIALIST [address] [place] [address] [place] [id number] Referral ID Status Reason Start Date Expiration Date V isits Requested Visits Authorized [id number] Closed Auto-Generate d Referral 02/17/2024 03/18/2025 1 [...] Onset Date Comments Transition Of Care 06/07/2025 Goals (unrecognized section and content) Goals may be documented in a n alternate section INFORMATION SOURCE (unrecogn ized section and content) DATE CREATED AUTHOR 06/13/2025 [facility] DATE CREATED AUTHOR AUTHOR'S OTILIA KELLY 06/26/2025 [facility] [place] FOR RECORDS PERTAINING TO PATIENTS WHO ARE [...] BE BASED ON THE PRIMARY CLINICAL RECORDS. [employer] provides no warranty or guarantee of the accuracy or completeness of information in this document.
[2025-06-30] VITALS (33 sets, daily range): BP systolic 135–163; BP diastolic 39–62; PULSE 54–73; RESP 12–21; TEMP 36.2–36.6; O2SAT 91–96; BMI 24.6
[2025-06-30] MEDS: NICARdipine 25 MG in 0.9% Normal Saline (250mL Bag) 240 ML CONT INF (00:23)
--- NOTE | 2025-06-30 01:06 | CPS ---
Patient on BIPAP at this time
[2025-06-30 03:47] LABS: Hematocrit 29.9 % (37-47); Hemoglobin 10.4 g/dL (12.0-15.0); Immature Granulocytes Count 0.010 X10^3/uL (0.0-0.0); Mean Corp Hgb Conc 34.8 g/dL (32-36); Mean Corpuscular Volume 85.4 fL (81-99); Mean Platelet Vol. 9.0 fl (6.2-12.0); NRBC Flagged by Analyzer 0 % (0-5); POSITIVE DIFFERENTIAL YES; Platelet Count 251 K/mm3 (150-450); RBC Distribution Width CV 14.7 % (11.6-14.6); RBC Distribution Width SD 46.5 fl (35.1-43.9); Red Blood Count 3.50 M/mm3 (4.2-5.4); White Blood Count 3.6 K/mm3 (4.4-11.0)
[2025-06-30 04:35] LABS: Anion Gap 13 (5-15); BUN 24 mg/dL (4-19); BUN/Creat Ratio 21.2 RATIO (10-20); Calcium,Total 8.4 mg/dL (7.6-11.0); Carbon Dioxide 21.7 mmol/L (21.0-32.0); Chloride 90 mmol/L (98-108); Estimated Creatinine Clearance 35.48 ml/min (50-250); Glucose 125 mg/dL (70-99); Potassium 3.4 mmol/L (3.3-5.1)
[2025-06-30] MEDS: Isosorbide DN 20 MG Tablet 40 MG PO ×3 (05:43→21:10)
[2025-06-30] MEDS: 0.9% Saline Lock 10 ML Syringe IV ×2 (05:48→21:11)
--- NOTE | 2025-06-30 07:04 | PN.HOSP_ITS ---
Reason for Visit Chief Complaint: Increase shortness of breath, weight gain, lower extremity swelling Subjective Subjective Patient states she was on for a few days after her discharge and was doing pretty well and then started developing swelling. She went to her appointment with nephrology and had increased her weight by about 5 pounds and felt like she had extra fluid on board and eventually, but none at that time, she was placed on some diuretics with Lasix 40 mg daily for about 4 days. She states her weight did improve but then the Lasix was discontinued and she slowly gained weight again. Feels that her breathing is definitely better today after diuresis. Blood pressure is better. Objective Data Objective Data Vital Signs: Vital Signs Temp Pulse Resp BP Pulse Ox O2 Del Method O2 Flow Rate 97.8 F 72 17 156/47 H 93 Nasal Cannula 4 06/30/25 06:00 06/30/25 06:00 06/30/25 06:00 06/30/25 06:00 06/30/25 06:00 06/30/25 06:00 06/30/25 06:00 FiO2 35 06/30/25 05:00 Oxygen Flow Rate (L/min) 4 Oxygen Delivery Method Nasal Cannula Weight: 64.1 kg Body Mass Index (BMI) 24.6 Intake & Output: Intake and Output for Last 24 Hours 06/28/25 06/29/25 06/30/25 23:59 23:59 23:59 Intake Total 474.17 / 480.42 156.25 / 156.25 Output Total 0 / 250 250 / 250 Balance 474.17 / 230.42 -93.75 / -93.75 Lab / Micro Data 06/30/25 03:30 06/30/25 03:30 Labs: Laboratory Results - last 24 hr 06/29/25 13:40: WBC 8.6, RBC 3.80 L, Hgb 11.5 L, Hct 32.2 L, MCV 84.7, MCH 30.3, MCHC 35.7, RDW Std Deviation 46.7 H, RDW Coeff of Cathleen 15.0 H, Plt Count 289, MPV 9.6, Immature Gran % (Auto) 0.200, Neut % (Auto) 81.7 H, Lymph % (Auto) 8.4 L, [place] % (Auto) 8.1, Eos % (Auto) 0.9, Baso % (Auto) 0.7, Absolute Neuts (auto) 7.0, Absolute Lymphs (auto) 0.72 L, Nucleated RBC % 0, Sodium 124 L, Potassium 3.8, Chloride 88 L, Carbon Dioxide 21.4, Anion Gap 15, BUN 21 H, Creatinine 0.95, Estim Creat Clear Calc 43.69 L, Est GFR (MDRD) Non-Af 61, BUN/Creatinine Ratio 22.5 H, Glucose 112 H, Calcium 9.2, [place] [address] H 06/29/25 19:50: Sodium 124 L, Potassium 4.6, Chloride 87 L, Carbon Dioxide 20.8 L, Anion Gap 16 H, BUN 22 H, Creatinine 1.10, Estim Creat Clear Calc 37.09 L, E st GFR (MDRD) Non-Af 51 L, BUN/Creatinine Ratio 19.6, Glucose 126 H, Calcium 9.3 06/30/25 01:40: Sodium Cancelled, Potassium Cancelled, Chloride Cancelled, Carbon Dioxide Cancelled, Anion Gap Cancelled, BUN Cancelled, Creatinine Cancelled, Estim Creat Clear Calc Cancelled, Est GFR (MDRD) Non-Af Cancelled, BUN/Creatinine Ratio Cancelled, Glucose Cancelled, Calcium Cancelled 06/30/25 03:30: WBC 3.6 L, RBC 3.50 L, Hgb 10.4 L, Hct 29.9 L, MCV 85.4, MCH 29.7, MCHC 34.8, RDW Std Deviation 46.5 H, RDW Coeff of Cathleen 14.7 H, Plt Count 251, MPV 9.0, Immature Gran % (Auto) 0.300, Neut % (Auto) 80.7 H, Lymph % (Auto) 13.1 L, [place] % (Auto) 5.3, Eos % (Auto) 0.3, Baso % (Auto) 0.3, Absolute Neuts (auto) 2.9, Absolute Lymphs (auto) 0.47 L, Nucleated RBC % 0, Sodium 124 L, Potassium 3.4, Chloride 90 L, Carbon Dioxide 21.7, Anion Gap 13, BUN 24 H, Creatinine 1.15, Estim Creat Clear Calc 35.48 L, Est GFR (MDRD) Non-Af 48 L, B UN/Creatinine Ratio 21.2 H, Glucose 125 H, Calcium 8.4 Micro: Microbiology 06/29/25 13:50 Mucosa - Nose SARS-CoV-2, Influenza & RSV (PCR) - Final Radiography Diagnostic Testing: Radiology Impression Chest X-Ray 06/29/25 13:43 IMPRESSION: CHF. Small bilateral pleural effusions with bibasilar atelectasis and/or infiltrates. Follow-up recommended. Reading Location: [facility] Physical Exam Const alert, oriented x3, no apparent distress, average body habitus and well nourished; Negative for healthy appearing Constitutional Narrative: Older, white female, sitting up in bed, on supplemental oxygen, appears quite tired, does not look toxic, pleasant HEENT head/scalp atraumatic and moist oral mucous membranes HEENT Narrative: Patient does appear to have some facial edema Head and Scalp: normocephalic Eyes conjunctivae normal Eyes Narrative: No scleral icterus Neck supple Neck Narrative: Trachea midline, JVD is present Resp No normal respiratory effort, no retractions, no use of accessory muscles and No clear to auscultation bilaterally Resp Narrative: Crackles at bases bilateral otherwise diffusely diminished, mild conversational dyspnea Auscultation: crackles; Negative for rhonchi or wheezes Cardio regular rate, regular rhythm, S1 normal heart sound, S2 normal heart sound, no murmurs, no rub, no gallops and no clicks GI normal to inspection, nondistended, normoactive bowel sounds, soft to palpation and non-tender Extremity Extremity Narrative: Patient has clubbing bilateral hands, no cyanosis, significant edema/anasarca throughout lower extremities, upper extremities in dependent regions Skin no jaundice, no petechiae and no mottling Neuro oriented x3, moves all extremities and no focal motor deficits Speech: speech normal Psych affect normal Psych Narrative: Very pleasant, interacts appropriately, appears fatigued Assessment & Plan Assessment/Plan (1) Fluid overload: (2) Hyponatremia: (3) Hypertensive emergency: PLAN: Plan HTN Emergency - presented with flash pulmonary edema 2/2 markedly elevated BP and BNP elevation - Chlorothalidone was discontined at last hospitalization 2/2 hyponatremia - continue amlodipine 10 mg - continue change in home metoprolol to coreg 12.5 - continue hydralazine 100mg tid - continue isosorbide dinitrate 40 mg TID - add Clonidine 0.2 mg tid - wean cardene ggt - TSH WNL at last visit - Check urinalysis - Cortisol was elevated pm -Check 24-hour urine free cortisol and to establish diagnosis of [place] syndrome UFC should be 3 fold above upper limit of normal for the assay - Renal artery duplex studies show normal bilateral renal arteries Acute hypoxic respiratory failure secondary to acute on chronic HFpEF - Highly suspect flash pulmonary edema with markedly elevated blood pressures related to stiffened ventricle and decreased ability to fill - Treat blood pressure as above - Continue IV Lasix but transition to drip with serial BMPs - Currently 5 L of oxygen to maintain sats greater than 92% but did require BiPAP at admission - Wean oxygen as able - Check ambulatory pulse ox prior to discharge - Continue fluid restriction Anasarca - Check UA - Continue diuretics - Suspect related to the above Hyperglycemia - Has been persistently elevated fasting - Check hemoglobin A1c - Patient does not carry diagnosis of diabetes at baseline Chronic hypoosmolar hyponatremia - Patient did require several doses of the left hand however she did appear to stabilize on 24 - Follow daily chemistry panel Chronic anemia secondary to suspected GI bleed - Patient with acute on chronic anemia at last hospitalization - EGD was performed and patient found to have gastric ulcers as well as multiple small bowel AVMs all were treated with heater probe for coagulation with good hemostasis following - Continue Protonix 40 mg p.o. twice daily - Continue Carafate 1 g 4 times daily and will continue for 5 more weeks weeks totaling 8 weeks - Hemoglobin has trended up since last hospitalization despite volume overload - Patient was instructed to avoid NSAIDs - Keep GI follow-up as outpatient Peptic ulcer disease/small bowel AVMs - Treated at last hospitalization - Continue PPI - Continue Carafate History of right renal artery stenosis - Previously unsuccessful stenting - Repeat duplex does not show a lesion - No further workup needed at this time Tobacco abuse - Continue nicotine replacement therapy if needed and desired - Recommend cessation DVT prophylaxis -Continue SCDs CODE STATUS -Full code Charges/Coding Visit Charges Inpatient E&M: 94184 [facility] Hosp L3
--- NOTE | 2025-06-30 09:26 | ECHOL_ITS ---
Reason For Study Reason For Study: CONGESTIVE HEART FAILURE Procedure This was a limited 2D transthoracic echocardiogram. Exam performed portable in ICU/CCU. Left Ventricle Mild concentric left ventricular hypertrophy. The estimated ejection fraction is 55???60 %. Right Ventricle Normal right ventricle. Normal systolic function. Atria Normal left atrium. Normal right atrium. Mitral Valve The mitral valve is structurally normal. No prolapse or stenosis seen. Tricuspid Valve Normal tricuspid valve. Aortic Valve Trisinus/trileaflet aortic valve. Pulmonic Valve The pulmonic valve is not well visualized. Great Vessels The aortic root is not well visualized. Pericardium/Pleural No pericardial effusion. MMode/2D Measurements & Calculations LVIDd: 4.5 cm IVSd: 1.1 cm LVOT diam: 2.6 cm RVDd: 3.1 cm LVPWd: 0.83 cm LVOT area: 5.5 cm2 LAV(MOD-bp): 31.3 ml LVAd ap4: 20.8 cm2 LVAd ap2: 18.7 cm2 LAV(MOD-bp) Indexed: 18.8 ml/m2 LVLd ap4: 6.7 cm LVLd ap2: 6.8 cm LAV(MOD-sp2): 54.2 ml EDV(MOD-sp4): 53.4 ml EDV(MOD-sp2): 43.8 ml LAV(MOD-sp4): 19.1 ml EDV(sp4-el): 54.3 ml EDV(sp2-el): 43.3 ml LVAs ap4: 11.3 cm2 LVAs ap2: 10.9 cm2 LVLs ap4: 5.3 cm LVLs ap2: 5.6 cm ESV(MOD-sp4): 19.4 ml ESV(MOD-sp2): 18.8 ml ESV(sp4-el): 20.6 ml ESV(sp2-el): 17.9 ml EF(MOD-sp4): 63.7 % EF(MOD-sp2): 57.1 % EF(sp4-el): 62.1 % SV(MOD-sp4): 34.0 ml SV(MOD-sp2): 25.0 ml SV(sp4-el): 33.8 ml SI(MOD-sp4): 20.4 ml/m2 SI(MOD-sp2): 15.0 ml/m2 LA dimension(2D): 3.2 cm LA A4 area: 10.5 cm2 RA A4 area: 10.9 cm2 TAPSE: 1.7 cm Time Measurements MV dec time: 0.26 sec Doppler Measurements & Calculations MV E max luciano: 98.4 cm/sec Lat Peak E' Luciano: 7.9 cm/sec MV dec slope: 373.0 cm/sec2 MV A max luciano: 87.2 cm/sec E/E' lat: 12.4 MV E/A: 1.1 MR max luciano: 6.5 cm/sec TR max luciano: 312.3 cm/sec MR max P.02 mmHg TR max P.4 mmHg ECHO/Echo, Limited Study Interpretation Summary The estimated ejection fraction is 55???60 %. No significant change from previous echocardiogram Ordering Physician: Tiffanie Govea Referring Physician: MD Ene Loyd Performed By: Evelyn Darby RDCS
[2025-06-30] MEDS: Furosemide 500 MG in Empty Viaflex 50 mL 1 EACH CONT INF (10:10)
[2025-06-30 14:00] LABS: Anion Gap 10 (5-15); BUN 31 mg/dL (4-19); BUN/Creat Ratio 19.1 RATIO (10-20); Calcium,Total 8.3 mg/dL (7.6-11.0); Carbon Dioxide 23.0 mmol/L (21.0-32.0); Chloride 89 mmol/L (98-108); Estimated Creatinine Clearance 25.53 ml/min (50-250); Glucose 128 mg/dL (70-99); Potassium 3.4 mmol/L (3.3-5.1)
[2025-06-30] MEDS: CHLORHEXIDINE GLUC 2% CLOTH 1 EACH TOWELETTE TOPICAL (14:09)
--- NOTE | 2025-06-30 15:00 | CASEMGMT ---
RN ELISA readmission note: Index admission: Admit 05/29 w/hyponatremia. Discharged home 06/06. Current admission: Admit 06/29 w/hypertensive emergency. Pt discharged home w/script for OP therapy & to receive walker @ discharge. Pt also dc'd w/several new Rx's that were sent to [facility]. RN ELISA to room to discuss readmission and discharge planning. Pt resting in bed. Introduced self and role. Pt states she had been doing well @ home until the past couple of days when she started having breathing difficulty. She states she did f/u with Dr Nora Govea after last discharge as instructed and had f/u labs drawn as ordered. She states she has actually had labs drawn every Saturday since being discharged from [facility] and Dr Govea has been monitoring these. She had a f/u appt scheduled w/Dr Govea again tomorrow. She states her niece was going to cancel that appt but she is not sure if she did and asked if this RN ELISA could call to verify. Call placed to Dr Govea's office and appt cancelled for tomorrow. Pt states that since last admission Dr Govea had prescribed Lasix x 4 days d/t weight gain/fluid retention, which she did take, but then she started gaining the weight back again. Pt verified she has been taking all new Rx's as instructed after last admission, including increase in hydralazine from 25 mg BID to 100 mg TID and she did stop the lisinopril as instructed. She did state that Dr Govea has stopped her Na Bicarb, though. She had a f/u appt w/Dr Luque since discharge. She was scheduled to see ERIC @ Dr Osorio' office today and confirms this was cancelled. Pt states she does have a scale @ home but does not weigh her self every day. Discussed the importance of doing this and recording this to monitor for changes. Pt states would like some further education re: things to monitor and when to notify the physician or return to ER. Pt's RN, Laurel, made aware. Noted pt to follow 1.25 L/day fluid restriction. Pt states she was not aware of that amount of restriction, but that Dr Govea told her 1.5 L/day, so she was going off of that amt. Pt states she tries to monitor her daily intake, but states does not do well at this. Pt states she would also like information/education on monitoring fluid intake and written info of ml to ounces conversion. LEILA Barragan, made aware of this as well. Pt currently on O2 and she verifies she does not wear O2 @ home. Discussed possible need of home O2 & questions answered. Pt chose [employer] for O2, if needed @ dc. Pt states she did get the walker @ discharge last admission, but states she has not had to use it since. She also went to [facility] for OP therapy. She states she did the initial appts and has appt's for therapy already scheduled for the next 2 months. She wishes to return home at discharge and plans to resume OP therapy @ [facility]. She would like to cancel any appts through next Saturday for now & asked LEILA PÉREZ to assist w/this. Call placed to Monica @ [facility]. Appt's scheduled. Pt's next appt is scheduled for 07/08. Pt made aware. Plan: Home w/resumption of OP therapy @ [facility]. Antonio DURANT RN CM
[2025-06-30 18:00] LABS: Anion Gap 13 (5-15); BUN 33 mg/dL (4-19); BUN/Creat Ratio 19.8 RATIO (10-20); Calcium,Total 8.4 mg/dL (7.6-11.0); Carbon Dioxide 22.5 mmol/L (21.0-32.0); Chloride 88 mmol/L (98-108); Estimated Creatinine Clearance 24.76 ml/min (50-250); Glucose 116 mg/dL (70-99); Potassium 3.6 mmol/L (3.3-5.1)
[2025-06-30 21:55] LABS: Anion Gap 14 (5-15); BUN 35 mg/dL (4-19); BUN/Creat Ratio 20.0 RATIO (10-20); Calcium,Total 8.2 mg/dL (7.6-11.0); Carbon Dioxide 21.2 mmol/L (21.0-32.0); Chloride 88 mmol/L (98-108); Estimated Creatinine Clearance 23.49 ml/min (50-250); Glucose 151 mg/dL (70-99); Potassium 3.4 mmol/L (3.3-5.1)
[2025-07-01] VITALS (18 sets, daily range): BP systolic 138–165; BP diastolic 41–76; PULSE 50–70; RESP 13–21; TEMP 36.1–36.5; O2SAT 91–95; BMI 24.2
--- NOTE | 2025-07-01 01:00 | CPS ---
Pt didn't want to wear BiPAP tonight.
[2025-07-01 05:07] LABS: Hematocrit 26.3 % (37-47); Hemoglobin 9.1 g/dL (12.0-15.0); Immature Granulocytes Count 0.040 X10^3/uL (0.0-0.0); Mean Corp Hgb Conc 34.6 g/dL (32-36); Mean Corpuscular Volume 85.4 fL (81-99); Mean Platelet Vol. 9.0 fl (6.2-12.0); NRBC Flagged by Analyzer 0 % (0-5); Platelet Count 196 K/mm3 (150-450); RBC Distribution Width CV 14.9 % (11.6-14.6); RBC Distribution Width SD 46.3 fl (35.1-43.9); Red Blood Count 3.08 M/mm3 (4.2-5.4); White Blood Count 8.9 K/mm3 (4.4-11.0)
[2025-07-01 05:39] LABS: AST(SGOT) 21 U/L (<=31); Alanine Aminotransfer ALT/SGPT 22 U/L (<=34); Albumin, Serum 3.2 g/dL (3.4-4.8); Alkaline Phosphatase 59 U/L (35-104); Anion Gap 11 (5-15); BUN 35 mg/dL (4-19); BUN/Creat Ratio 19.4 RATIO (10-20); Calcium,Total 8.3 mg/dL (7.6-11.0); Carbon Dioxide 23.0 mmol/L (21.0-32.0); Chloride 91 mmol/L (98-108); Estimated Creatinine Clearance 22.84 ml/min (50-250); Globulin 1.8 g/dL (2.2-4.2); Glucose 109 mg/dL (70-99); Magnesium 1.9 mg/dL (1.5-2.2); Potassium 3.3 mmol/L (3.3-5.1)
[2025-07-01] MEDS: Isosorbide DN 20 MG Tablet 40 MG PO ×3 (05:59→22:33)
--- NOTE | 2025-07-01 07:02 | RAD_ITS ---
PROCEDURE: CHEST 1 VIEW (PORTABLE) 07/01/2025 REASON FOR EXAM: HYPOXIA TECHNIQUE: Frontal view of the chest. COMPARISON: Prior study dated June 29, 2025. FINDINGS: Hardware: EKG electrodes are seen. Heart: Borderline cardiomegaly. Lungs: Persistent small bilateral pleural effusions slightly worse on the left side with bibasilar atelectasis and/or infiltrate. There has been mild improvement. Mild residual CHF although there has been improvement. Bones: Degenerative changes are identified within the thoracic spine. Other: Atherosclerotic calcification of the aortic arch. RAD/Chest 1 View (Portable) IMPRESSION: Mild improvement in the aeration of both lung bases. Residual CHF present. Reading Location: [facility]
--- NOTE | 2025-07-01 07:03 | PN.HOSP_ITS ---
Reason for Visit Chief Complaint: Increase shortness of breath, weight gain, lower extremity swelling Subjective Subjective Patient states overall she is feeling much better. She states she feels her swelling is better however still little bit puffy especially in her legs. Her breathing feels much better she states. Blood pressures have been better with current regimen and Cardene and remains off. I did discuss with her my goal is for her systolics to be between 140 and 160 consistently at the time of discharge and then slowly bring her down to goal blood pressure because her autoregulation is likely off related to her issues with her hypertension recently. Plan is to reevaluate her tomorrow when she is doing clinically with possible discharge depending on how she is feeling and what her labs/vitals look like. Objective Data Objective Data Vital Signs: Vital Signs Temp Pulse Resp BP Pulse Ox O2 Del Method O2 Flow Rate 97.7 F L 54 L 15 152/46 H 93 Nasal Cannula 2 07/01/25 06:00 07/01/25 07:00 07/01/25 07:00 07/01/25 07:00 07/01/25 07:00 07/01/25 07:00 07/01/25 07:00 FiO2 35 06/30/25 05:00 Oxygen Flow Rate (L/min) 2 Oxygen Delivery Method Nasal Cannula Weight: 63 kg Body Mass Index (BMI) 24.2 Intake & Output: Intake and Output for Last 24 Hours 06/29/25 06/30/25 07/01/25 23:59 23:59 23:59 Intake Total 474.17 / 480.42 1252.22 / 1252.22 Output Total 0 / 250 1410 / 1410 900 / 900 Balance 474.17 / 230.42 -157.78 / -157.78 -900 / -900 Lab / Micro Data 07/01/25 04:59 07/01/25 04:59 Labs: Laboratory Results - last 24 hr 06/30/25 03:30: Hemoglobin A1c 5.1 06/30/25 13:19: Sodium 122 L, Potassium 3.4, Chloride 89 L, Carbon Dioxide 23.0, Anion Gap 10, BUN 31 H, Creatinine 1.61 H, Estim Creat Clear Calc 25.53 L, Est GFR (MDRD) Non-Af 32 L, BUN/Creatinine Ratio 19.1, Glucose 128 H, Calcium 8.3 06/30/25 17:00: Sodium 123 L, Potassium 3.6, Chloride 88 L, Carbon Dioxide 22.5, Anion Gap 13, BUN 33 H, Creatinine 1.66 H, Estim Creat Clear Calc 24.76 L, Est GFR (MDRD) Non-Af 31 L, BUN/Creatinine Ratio 19.8, Glucose 116 H, Calcium 8.4 06/30/25 21:19: Sodium 123 L, Potassium 3.4, Chloride 88 L, Carbon Dioxide 21.2, Anion Gap 14, BUN 35 H, Creatinine 1.75 H, Estim Creat Clear Calc 23.49 L, Est GFR (MDRD) Non-Af 29 L, BUN/Creatinine Ratio 20.0, Glucose 151 H, Calcium 8.2 07/01/25 04:59: WBC 8.9, RBC 3.08 L, Hgb 9.1 L, Hct 26.3 L, MCV 85.4, MCH 29.5, MCHC 34.6, RDW Std Deviation 46.3 H, RDW Coeff of Cathleen 14.9 H, Plt Count 196, MPV 9.0, Immature Gran % (Auto) 0.500, Neut % (Auto) 75.8 H, Lymph % (Auto) 12.9 L, [place] % (Auto) 9.1, Eos % (Auto) 1.4, Baso % (Auto) 0.3, Absolute Neuts (auto) 6.7, Absolute Lymphs (auto) 1.14, Nucleated RBC % 0, Sodium 125 L, Potassium 3.3, Chloride 91 L, Carbon Dioxide 23.0, Anion Gap 11, BUN 35 H, Creatinine 1.80 H, Estim Creat Clear Calc 22.84 L, Est GFR (MDRD) Non-Af 28 L, BUN/Creatinine Ratio 19.4, Glucose 109 H, Calcium 8.3, Phosphorus 4.7 H, Magnesium 1.9, Total Bilirubin 0.35, AST 21, ALT 22, Alkaline Phosphatase 59, Total Protein 5.0 L, A lbumin 3.2 L, Globulin 1.8 L, Albumin/Globulin Ratio 1.8 Micro: Microbiology 06/29/25 13:50 Mucosa - Nose SARS-CoV-2, Influenza & RSV (PCR) - Final Radiography Diagnostic Testing: Radiology Impression Echocardiogram 06/30/25 09:26 Interpretation Summary The estimated ejection fraction is 55???60 %. No significant change from previous echocardiogram Ordering Physician: Tiffanie Govea Referring Physician: MD Ene Loyd Performed By: Evelyn Darby RDCS Physical Exam Const alert, oriented x3, no apparent distress, average body habitus and well nourished; Negative for healthy appearing Constitutional Narrative: Older, white female, sitting up in bed, on supplemental oxygen, looks much more rested today, nontoxic, pleasant HEENT head/scalp atraumatic and moist oral mucous membranes Head and Scalp: normocephalic Eyes Eyes Narrative: No scleral icterus Neck Neck Narrative: JVD is resolved Resp normal respiratory effort, no retractions, no use of accessory muscles and clear to auscultation bilaterally Resp Narrative: Mildly diminished diffusely but clear, tachypnea has resolved Auscultation: Negative for crackles, rhonchi or wheezes Cardio regular rate, regular rhythm, S1 normal heart sound, S2 normal heart sound, no murmurs, no rub, no gallops and no clicks GI normal to inspection, nondistended, normoactive bowel sounds, soft to palpation and non-tender Extremity Extremity Narrative: Patient has clubbing bilateral hands, no cyanosis, decreased edema with trace in hands and legs Neuro oriented x3, moves all extremities and no focal motor deficits Speech: speech normal Psych affect normal Psych Narrative: Very pleasant, interacts appropriately, appears closer to her baseline from when I knew her from her previous admission Assessment & Plan Assessment/Plan (1) Fluid overload: (2) Hyponatremia: (3) Hypertensive emergency: PLAN: Plan HTN Emergency - presented with flash pulmonary edema 2/2 markedly elevated BP and BNP elevation - Chlorothalidone was discontined at last hospitalization 2/2 hyponatremia - continue amlodipine 10 mg - continue coreg 12.5 - continue hydralazine 100mg tid - continue isosorbide dinitrate 40 mg TID - Continue clonidine 0.2 mg tid - Goal systolic blood pressure for now and at the time of discharge is between 140 and 160 - TSH WNL at last visit - UA with mild proteinuria - Cortisol was elevated pm - 24-hour urine free cortisol is pending--> UFC should be 3 fold above upper limit of normal for the assay - Renal artery duplex studies done at last hospitalization show normal bilateral renal arteries despite previous abnormality Acute hypoxic respiratory failure secondary to acute on chronic HFpEF - Highly suspect flash pulmonary edema with markedly elevated blood pressures related to stiffened ventricle and decreased ability to fill - Treat blood pressure as above - Bump in creatinine so we will discontinue IV Lasix--> anticipate discharge on low-dose Lasix - Patient has been weaned to room air at rest - Check ambulatory pulse ox prior to discharge - Continue fluid restriction Anasarca - UA with only mild proteinuria - Hold diuretics for now, try discharge later today - Suspect related to the above Hyperglycemia - Has been persistently elevated fasting - A1c of 5.1--> suspect reactive - Patient does not carry diagnosis of diabetes at baseline Chronic hypoosmolar hyponatremia - Stable at 125 - Repeat BMP in a.m. Chronic anemia - Patient with acute on chronic anemia at last hospitalization - EGD was performed and patient found to have gastric ulcers as well as multiple small bowel AVMs all were treated with heater probe for coagulation with good hemostasis following - Continue Protonix 40 mg p.o. twice daily - Continue Carafate 1 g 4 times daily and will continue for 5 more weeks weeks totaling 8 weeks - Hemoglobin is stable - Patient was instructed to avoid NSAIDs - Keep GI follow-up as outpatient Peptic ulcer disease/small bowel AVMs - Treated at last hospitalization - Continue PPI - Continue Carafate History of right renal artery stenosis - Previously unsuccessful stenting - Repeat duplex does not show a lesion - No further workup needed at this time Tobacco abuse - Continue nicotine replacement therapy if needed and desired - Recommend cessation DVT prophylaxis -Continue SCDs CODE STATUS -Full code Charges/Coding Visit Charges Inpatient E&M: 25443 Subs Hosp L2
[2025-07-01] MEDS: CHLORHEXIDINE GLUC 2% CLOTH 1 EACH TOWELETTE TOPICAL (07:40)
--- NOTE | 2025-07-01 13:51 | VDLE_ITS ---
Reason For Study Reason For Study: HTN RIGHT LEFT GSV is normal. GSV is normal. CFV is compressible, spontaneous, phasic, competent CFV is compressible, spontaneous, phasic, competent, and demonstrates normal augmentation. and demonstrates normal augmentation. FV is compressible, spontaneous, phasic, competent FV is compressible, spontaneous, phasic, competent and demonstrates normal augmentation. and demonstrates normal augmentation. POP V is compressible, spontaneous, phasic, competent POP V is compressible, spontaneous, phasic, competent and demonstrates normal augmentation. and demonstrates normal augmentation. T/P Trunk is compressible. T/P Trunk is compressible. PTV is compressible. PTV is compressible. RT PerV is compressible. LT PerV is compressible. Procedure This is a venous duplex using B-mode, color flow and spectral Doppler. Exam performed portable in ICU/CCU. The exam was diagnostic. A preliminary report was called and/or faxed to ANALYTICS ANALYST. VL/Venous Duplex US - [place] Extrem Interpretation Summary Deep veins of the lower extremities are bilaterally patent and compressible seg mentally. There is no evidence of deep vein thrombosis on either side. Valvular competence appears intact within the p roximal deep venous systems bilaterally. The great saphenous veins appear bilaterally patent and compressible segmentall y. Ordering Physician: Tiffanie Govea Referring Physician: Loyd Luque Performed By: Jasson Stephenson, RVT
[2025-07-01] MEDS: Potassium Chloride Oral Tablet 20 MEQ 40 MEQ PO (14:44)
--- NOTE | 2025-07-01 15:30 | CASEMGMT ---
LEILA PÉREZ NOTE: RN CM to room. Pt resting in bed. RN ELISA inquired if she has been OOB/ambulating today. Per pt, she ambulated in hallway w/staff present w/out any use of DME. She states she felt steady and IS comfortable w/discharging home when she is medically ready and resume OP therapy. Antonio DURANT RN CM
[2025-07-02] VITALS (11 sets, daily range): BP systolic 146–160; BP diastolic 52–58; PULSE 57–63; RESP 12–18; TEMP 36.1–36.6; O2SAT 88–93; BMI 23.9
[2025-07-02 05:52] LABS: Hematocrit 27.4 % (37-47); Hemoglobin 9.6 g/dL (12.0-15.0); Immature Granulocytes Count 0.020 X10^3/uL (0.0-0.0); Mean Corp Hgb Conc 35.0 g/dL (32-36); Mean Corpuscular Volume 85.4 fL (81-99); Mean Platelet Vol. 9.5 fl (6.2-12.0); NRBC Flagged by Analyzer 0 % (0-5); Platelet Count 203 K/mm3 (150-450); RBC Distribution Width CV 14.9 % (11.6-14.6); RBC Distribution Width SD 46.7 fl (35.1-43.9); Red Blood Count 3.21 M/mm3 (4.2-5.4); White Blood Count 6.3 K/mm3 (4.4-11.0)
[2025-07-02 05:53] LABS: Mucous, Urine 0 SEEN /hpf (<or=2+); Squamous Epithelial Cells - UA 0 SEEN /hpf (5-10)
[2025-07-02 05:58] LABS: Color, Urine Straw (Yellow); Glucose, Dipstick Normal (Normal); Ketone-Dipstick Negative (Negative); Leukocyte Esterase-Dipstick 25 /ul (Negative); Nitrite-Dipstick Negative (Negative); Occult Blood-Urine Negative /ul (Negative); Protein-Dipstick Negative (Negative); Specific Gravity, Urine 1.010 (1.002-1.030); Urine Bilirubin Dipstick Negative (Negative)
[2025-07-02 06:24] LABS: Red Blood Cells-Urine 0-5 SEEN /hpf (0-5)
[2025-07-02 06:33] LABS: AST(SGOT) 18 U/L (<=31); Alanine Aminotransfer ALT/SGPT 21 U/L (<=34); Albumin, Serum 3.3 g/dL (3.4-4.8); Alkaline Phosphatase 62 U/L (35-104); Anion Gap 10 (5-15); BUN 32 mg/dL (4-19); BUN/Creat Ratio 20.9 RATIO (10-20); Calcium,Total 8.5 mg/dL (7.6-11.0); Carbon Dioxide 24.4 mmol/L (21.0-32.0); Chloride 94 mmol/L (98-108); Estimated Creatinine Clearance 24.83 ml/min (50-250); Globulin 1.9 g/dL (2.2-4.2); Glucose 103 mg/dL (70-99); Potassium 3.6 mmol/L (3.3-5.1)
[2025-07-02] MEDS: Isosorbide DN 20 MG Tablet 40 MG PO ×3 (07:01→22:23)
[2025-07-02] MEDS: CHLORHEXIDINE GLUC 2% CLOTH 1 EACH TOWELETTE TOPICAL (11:15)
--- NOTE | 2025-07-02 13:28 | PCM.PN.HOSP ---
Reason for Visit Chief Complaint: Increase shortness of breath, weight gain, lower extremity swelling Subjective Subjective Patient states she feels much better today overall. Swelling is much improved. States she feels little bit weak. Objective Data Objective Data Vital Signs: Vital Signs Temp Pulse Resp BP Pulse Ox O2 Del Method O2 Flow Rate 97.6 F L 62 12 152/52 H 92 Room Air 2 07/02/25 08:52 07/02/25 08:52 07/02/25 08:52 07/02/25 08:52 07/02/25 08:52 07/02/25 10:00 07/02/25 03:44 FiO2 35 06/30/25 05:00 Oxygen Flow Rate (L/min) 2 Oxygen Delivery Method Room Air Weight: 62.2 kg Body Mass Index (BMI) 23.9 Intake & Output: Intake and Output for Last 24 Hours 06/30/25 07/01/25 07/02/25 23:59 23:59 23:59 Intake Total 1252.22 / 1252.22 Output Total 1410 / 1410 900 / 900 500 / 500 Balance -157.78 / -157.78 -900 / -900 -500 / -500 Lab / Micro Data 07/02/25 05:18 07/02/25 05:18 Labs: Laboratory Results - last 24 hr 07/02/25 03:00: Urine Color Straw, Urine Clarity Clear, Urine pH 6.5, Ur Specific [place] 1.010, Urine Protein Negative, Urine Glucose (UA) Normal, Urine Ketones Negative, Urine Occult Blood Negative, Urine Nitrite Negative, Urine Bilirubin Negative, Urine Urobilinogen Normal, Ur Leukocyte Esterase 25 H, Urine RBC 0-5 SEEN, Urine WBC 0-5 SEEN, Ur Squamous Epith Cells 0 SEEN, Urine Bacteria RARE, Urine Mucus 0 SEEN 07/02/25 05:18: WBC 6.3, RBC 3.21 L, Hgb 9.6 L, Hct 27.4 L, MCV 85.4, MCH 29.9, MCHC 35.0, RDW Std Deviation 46.7 H, RDW Coeff of Cathleen 14.9 H, Plt Count 203, MPV 9.5, Immature Gran % (Auto) 0.300, Neut % (Auto) 68.4, Lymph % (Auto) 15.1 L, [place] % (Auto) 10.9 H, Eos % (Auto) 4.3, Baso % (Auto) 1.0, Absolute Neuts (auto) 4.3, Absolute Lymphs (auto) 0.95, Nucleated RBC % 0, Sodium 129 L, Potassium 3.6, Chloride 94 L, Carbon Dioxide 24.4, Anion Gap 10, BUN 32 H, Creatinine 1.52 H, Estim Creat Clear Calc 24.83 L, Est GFR (MDRD) Non-Af 35 L, BUN/Creatinine Ratio 20.9 H, Glucose 103 H, Calcium 8.5, Total Bilirubin 0.37, AST 18, ALT 21, Alkaline Phosphatase 62, Total Protein 5.2 L, Albumin 3.3 L, Globulin 1.9 L, Albumin/Globulin Ratio 1.8 Micro: Microbiology 06/29/25 13:50 Mucosa - Nose SARS-CoV-2, Influenza & RSV (PCR) - Final Radiography Diagnostic Testing: Radiology Impression Venous Doppler Study 07/01/25 13:51 Interpretation Summary Deep veins of the lower extremities are bilaterally patent and compressible segmentally. There is no evidence of deep vein thrombosis on either side. Valvular competence appears intact within the proximal deep venous systems bilaterally. The great saphenous veins appear bilaterally patent and compressible segmentally. Ordering Physician: Tiffanie Govea Referring Physician: Loyd Luque Performed By: Jasson Stephenson, RVT Physical Exam Const alert, oriented x3, no apparent distress, average body habitus and well nourished; Negative for healthy appearing Constitutional Narrative: Older, white female, sitting up in bed, on supplemental oxygen, looks good today, nontoxic HEENT head/scalp atraumatic and moist oral mucous membranes Head and Scalp: normocephalic Eyes Eyes Narrative: No scleral icterus Resp normal respiratory effort, no retractions, no use of accessory muscles and clear to auscultation bilaterally Resp Narrative: Mildly diminished diffusely but clear Auscultation: Negative for crackles, rhonchi or wheezes Cardio regular rate, regular rhythm, S1 normal heart sound, S2 normal heart sound, no murmurs, no rub, no gallops and no clicks GI normal to inspection, nondistended, normoactive bowel sounds, soft to palpation and non-tender Extremity Extremity Narrative: Patient has clubbing bilateral hands, no cyanosis, trace lower extremity edema Neuro moves all extremities and no focal motor deficits Speech: speech normal Psych affect normal Psych Narrative: Very pleasant, interacts appropriately Assessment & Plan Assessment/Plan (1) Fluid overload: (2) Hyponatremia: (3) Hypertensive emergency: PLAN: Plan HTN Emergency - presented with flash pulmonary edema 2/2 markedly elevated BP and BNP elevation - Chlorothalidone was discontined at last hospitalization 2/2 hyponatremia - continue amlodipine 10 mg - continue coreg 12.5 - continue hydralazine 100mg tid - continue isosorbide dinitrate 40 mg TID - Continue clonidine but increase to 0.3 mg tid from 0.2 3 times daily as systolics are running on the high end of where I want them to be between 140 and 160 - Goal systolic blood pressure for now and at the time of discharge is between 140 and 160--> medications can be slowly uptitrated after discharge to attain goal below 130/80 however her autoregulation is disrupted due to ongoing elevated blood pressure over extended period of time and decrease needs to be slow - TSH WNL at last visit - UA with mild proteinuria - Cortisol was elevated pm - 24-hour urine free cortisol has been completed but results are pending--> UFC should be 3 fold above upper limit of normal for the assay - Renal artery duplex studies done at last hospitalization show normal bilateral renal arteries despite previous abnormality Acute hypoxic respiratory failure secondary to acute on chronic HFpEF - Highly suspect flash pulmonary edema with markedly elevated blood pressures related to stiffened ventricle and decreased ability to fill -Likely has a component of COPD as well -Still requiring oxygen with exertion with sats 88% -Will add scheduled DuoNebs and encourage extreme compliance with Acapella and incentive spirometry -Repeat amatory pulse ox tomorrow and hopeful for discharge home without oxygen - Treat blood pressure as above - Bump in creatinine so we will discontinue IV Lasix--> anticipate discharge on low-dose Lasix--> 40 mg every other day - Patient has been weaned to room air at rest - Check ambulatory pulse ox prior to discharge - Continue fluid restriction Anasarca - UA with only mild proteinuria - Much improved -Will plan on discharging with Lasix 40 mg every other day and will need close follow-up with a BMP - Suspect related to the above Hyperglycemia - Has been persistently elevated fasting - A1c of 5.1--> suspect reactive - Patient does not carry diagnosis of diabetes at baseline Chronic hypoosmolar hyponatremia - Stable at 129 - Repeat BMP in a.m. Chronic anemia - Patient with acute on chronic anemia at last hospitalization - EGD was performed and patient found to have gastric ulcers as well as multiple small bowel AVMs all were treated with heater probe for coagulation with good hemostasis following - Continue Protonix 40 mg p.o. twice daily - Continue Carafate 1 g 4 times daily and will continue for 5 more weeks weeks totaling 8 weeks--> patient needs a refill of Carafate at discharge - Hemoglobin is stable - Patient was instructed to avoid NSAIDs - Keep GI follow-up as outpatient Peptic ulcer disease/small bowel AVMs - Treated at last hospitalization - Continue PPI - Continue Carafate History of right renal artery stenosis - Previously unsuccessful stenting - Repeat duplex does not show a lesion - No further workup needed at this time Tobacco abuse - Continue nicotine replacement therapy if needed and desired - Recommend cessation DVT prophylaxis -Continue SCDs CODE STATUS -Full code Charges/Coding Visit Charges Inpatient E&M: 42740 Subs Hosp L2
[2025-07-02] MEDS: 0.9% Saline Lock 10 ML Syringe IV (22:23)
[2025-07-03] VITALS (9 sets, daily range): BP systolic 154–171; BP diastolic 59–63; PULSE 54–66; RESP 14–18; TEMP 36.4–36.7; O2SAT 87–94; BMI 23.6
[2025-07-03] MEDS: Isosorbide DN 20 MG Tablet 40 MG PO (05:20)
[2025-07-03 05:54] LABS: Hematocrit 29.2 % (37-47); Hemoglobin 10.1 g/dL (12.0-15.0); Mean Corp Hgb Conc 34.6 g/dL (32-36); Mean Corpuscular Volume 86.4 fL (81-99); Mean Platelet Vol. 9.6 fl (6.2-12.0); Platelet Count 203 K/mm3 (150-450); RBC Distribution Width CV 14.9 % (11.6-14.6); RBC Distribution Width SD 47.2 fl (35.1-43.9); Red Blood Count 3.38 M/mm3 (4.2-5.4); White Blood Count 7.1 K/mm3 (4.4-11.0)
[2025-07-03 06:56] LABS: Anion Gap 9 (5-15); BUN 24 mg/dL (4-19); BUN/Creat Ratio 18.5 RATIO (10-20); Calcium,Total 8.6 mg/dL (7.6-11.0); Carbon Dioxide 25.3 mmol/L (21.0-32.0); Chloride 97 mmol/L (98-108); Estimated Creatinine Clearance 28.81 ml/min (50-250); Glucose 104 mg/dL (70-99); Potassium 3.8 mmol/L (3.3-5.1)
--- NOTE | 2025-07-03 09:21 | PCM.DC.SUM ---
Providers Date of Admission: 06/29/25 Date of Discharge: 07/03/25 Primary Care Physician: Dr. Loyd Luque MD Reason For Visit: BYPERTENSIVE EMERGENCY Diagnosis Discharge Diagnosis (1) Fluid overload: Status: Acute Code(s): E87.70 - Fluid overload, unspecified (2) Hyponatremia: Status: Acute Code(s): E87.1 - Hypo-osmolality and hyponatremia (3) Hypertensive emergency: Status: Acute Code(s): I16.1 - Hypertensive emergency Medications at Discharge Home Medications amlodipine 10 mg tablet 10 mg PO DAILY 03/21/23 hydralazine 50 mg tablet 100 mg (2 x 50 mg) PO TID #90 tabs 06/06/25 pantoprazole 40 mg tablet,delayed release 40 mg PO BID #60 tabs 06/06/25 albuterol sulfate 90 mcg/actuation aerosol inhaler (Ventolin HFA) 1 inh inhalation Q6H PRN shortness of breath or wheezing #8.5 grams 07/03/25 carvedilol 12.5 mg tablet 12.5 mg PO BID 90 days #180 tabs 07/03/25 clonidine HCl 0.3 mg tablet 0.3 mg PO TID 90 days #270 tabs 07/03/25 ferrous sulfate 325 mg (65 mg iron) tablet (FeroSul) 325 mg PO DAILY #60 tabs 07/03/25 furosemide 40 mg tablet (Lasix) 40 mg PO QODAY 90 days #45 tabs 07/03/25 isosorbide dinitrate 20 mg tablet 40 mg (2 x 20 mg) PO TID 90 days #540 tabs 07/03/25 sucralfate 1 gram tablet 1 g PO 1HR_ACHS 30 days #120 tabs 07/03/25 Hospital Course Operations None Procedures EKG, Transthoracic echo and - (Lower extremity venous study, chest x-ray x 2) Summary of Care Provided Minutes Spent on Discharge: 35 Hospital Course: Patient is a 80-year-old female who presented to [facility] ED on 06/29/2025 with worsening shortness of breath. Hospital course as noted below. Patient discharged home in stable condition on 07/03. 1. Hypertensive emergency ? Presented with flash pulmonary edema and elevated BNP secondary to markedly elevated blood pressure. Chlorthalidone was discontinued at last hospitalization in late May-early June due to hyponatremia. Increased home clonidine dosing and switched from metoprolol to Coreg with good improvement in blood pressure. TSH normal. UA with mild proteinuria. P.m. cortisol elevated, 24-hour urine free cortisol pending on discharge; notably will need to be greater than 3 times the upper limit of normal to be significant. Will discharge home on amlodipine 10 mg daily, Coreg 12.5 mg twice daily, hydralazine 100 mg 3 times daily, isosorbide dinitrate 40 mg 3 times daily, clonidine 0.3 mg 3 times daily and Lasix 40 mg every other day. Goal systolic blood pressure 140-160 for now; medications can be slowly uptitrated after discharge to attain goal below 130/80, but because her autoregulation is disrupted due to ongoing elevated blood pressures over extended period of time, this uptitration will need to be slow. 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 2. Acute hypoxic respiratory failure secondary to acute on chronic HFpEF with anasarca, improving ? Not on home oxygen. Required BiPAP on admission to maintain appropriate oxygen saturations. Chest x-ray with small bilateral pleural effusions and vascular congestion consistent with CHF. BNP elevated. Echo showed EF 55 to 60%, mild concentric LV hypertrophy, no valvular disease, no other concerning findings. Improved significantly with IV diuresis, though unfortunately diuresis was hindered by ANTONINO. Patient stable on room air at rest but was requiring 2 L nasal cannula with exertion for last 2 days of hospitalization. Suspect some degree of underlying lung disease due to COPD from tobacco use. Discharged on 2 L nasal cannula with exertion, oxygen prescription signed. Suspect patient will be able to wean off supplemental oxygen in the next week or so. Treating with Lasix 40 mg every other day on discharge as above. 3. Chronic hypoosmolar hyponatremia ? Sodium 124 on admit with radha of 122 on 06/30. Presumed secondary to hypervolemia. Improved with diuresis, with most recent sodium 132 on day of discharge. 4. Chronic anemia with recent history of peptic ulcer disease and small bowel AVMs ? Recent hospitalization here from 05/29-06/06. Had acute on chronic anemia and EGD showed gastric ulcers with multiple small bowel AVMs all treated with heater probe for anticoagulation. Hemoglobin was stable at 9.5 on that discharge. Hemoglobin remained stable at baseline 9-10 during this hospitalization. Continue home PPI twice daily, sucralfate with meals and iron supplement. 5. History of right renal artery stenosis ? With history of unsuccessful stenting. Notably, repeat duplex during last hospitalization did not show a significant stenotic lesion. No further workup needed at this time. 6. Tobacco dependence ? Nicotine patch worn while inpatient per patient request. Discussed cessation on discharge. Total clinical time spent by myself addressing the patient's medical issues, reviewing all the data, and collaborating with patient's care team: 35 minutes. Physical Exam Const alert, oriented x3, no apparent distress and average body habitus Constitutional Narrative: Pleasant elderly female, sitting back comfortably in bed, conversing normally, in no acute distress. General Appearance: cooperative and comfortable HEENT normocephalic, head/scalp atraumatic, hearing grossly normal bilaterally, nasal mucous membranes and turbinates normal and moist oral mucous membranes Eyes PERRL, EOMs intact bilaterally and conjunctivae normal Neck full ROM Chest inspection of chest normal Resp normal respiratory effort, normal air movement, no use of accessory muscles and clear to auscultation bilaterally Resp Narrative: Breathing comfortably on room air at rest. Good breath sounds bilaterally throughout with no wheezing or crackles noted. Cardio regular rate, regular rhythm, no murmurs and peripheral pulses 2+ throughout GI normal to inspection, nondistended, normoactive bowel sounds, soft to palpation, non-tender and non-distended Back/Spine normal ROM Extremity normal to inspection, full ROM and no pedal edema Skin no rashes or lesions noted Psych mental status grossly normal Weight / BMI Weight Weight: 61.3 kg Body Mass Index (BMI) 23.6 ABG / Lab / Microbiology Data 07/03/25 05:24 07/03/25 05:24 Laboratory: Laboratory Results - last 24 hr 07/03/25 05:24: WBC 7.1, RBC 3.38 L, Hgb 10.1 L, Hct 29.2 L, MCV 86.4, MCH 29.9, MCHC 34.6, RDW Std Deviation 47.2 H, RDW Coeff of Cathleen 14.9 H, Plt Count 203, MPV 9.6, Sodium 132 L, Potassium 3.8, Chloride 97 L, Carbon Dioxide 25.3, Anion Gap 9, BUN 24 H, Creatinine 1.31 H, Estim Creat Clear Calc 28.81 L, Est GFR (MDRD) Non-Af 41 L, BUN/Creatinine Ratio 18.5, Glucose 104 H, Calcium 8.6 Microbiology: Microbiology 06/29/25 13:50 Mucosa - Nose SARS-CoV-2, Influenza & RSV (PCR) - Final D/C Instructions DC O2, CPAP, BIPAP Needs Home O2 Discharge instructions: Yes Type of respiratory needs?: Oxygen Oxygen frequency: With Ambulation Oxygen liters per minute during Ambulation: 2 DC home with Oxygen: Yes Home O2 MD Review: I have reviewed the oxygen testing, and the patient qualifies for home oxygen equipment and portability. The patient is mobile in the home and the community. Meaningful Use Info Meaningful Use Meaningful Use Diagnoses (Choose all that apply): CHF CHF PAOLA/ARB ordered at discharge?: No Reason PAOLA/ARB not ordered?: Normal EF Documented LVEF (%): 55 Discharge Plan Admission Admit Date/Time: 06/29/25 16:03 Primary Reason for Your Visit: Shortness of breath Attending Provider: Tarik Mijares Primary Care Provider: Loyd Luque Consulting Providers: Conchita Burns; Tiffanie Govea Instructions Additional Instructions / Restrictions: Please start taking the following medications: ? Carvedilol 12.5 mg twice daily ? Clonidine 0.3 mg 3 times daily ? Lasix 40 mg every other day ? Albuterol inhaler up to every 6 hours as needed Please stop taking the metoprolol as noted below. Please wear 2 L of oxygen with walking as needed to maintain oxygen saturation greater than 88%. We hope that you may be able to wean off of oxygen with walking in the next week or 2. Discharge Orders/Prescriptions Prescriptions: New carvedilol 12.5 mg Tablet 12.5 mg PO BID 90 Days Qty: 180 0RF clonidine HCl 0.3 mg tablet 0.3 mg PO TID 90 Days Qty: 270 0RF albuterol sulfate [Ventolin HFA] 90 mcg/actuation HFA aerosol inhaler 1 inh inhalation Q6H PRN (Reason: shortness of breath or wheezing) Qty: 8.5 1RF furosemide [Lasix] 40 mg tablet 40 mg PO QODAY 90 Days Qty: 45 0RF Continued amlodipine 10 mg Tablet 10 mg PO DAILY hydralazine 50 mg Tablet 100 mg PO TID Qty: 90 0RF pantoprazole 40 mg Tablet,Delayed Release (/Ec) 40 mg PO BID Qty: 60 2RF isosorbide dinitrate 20 mg Tablet 40 mg PO TID 90 Days Qty: 540 0RF sucralfate 1 gram Tablet 1 g PO 1HR_ACHS 30 Days Qty: 120 1RF Changed ferrous sulfate [FeroSul] 325 mg (65 mg iron) Tablet 325 mg PO DAILY Qty: 60 0RF Rx Instructions: Take with orange juice Discontinued metoprolol succinate 50 mg tablet extended release 24 hr 50 mg PO BID Referrals / Follow Up: Loyd Luque MD [Primary Care Provider] - Disposition Disposition (needs filled in before D/C Order can be placed): Home, Self Care Charges/Coding Visit Charges Inpatient E&M: 68988 Disch Hosp >30min
--- NOTE | 2025-07-03 09:58 | PCM.HOSP.N ---
Hospitalist Note I have reviewed the oxygen testing, and this patient qualifies for the home equipment and portability. The patient is mobile in the home and the community.
[2025-07-05 08:07] LABS: Cortisol, Free 24Ur 83 ug/24 hr (6-42)
== END 2025-07-03 13:55 | disposition home or self-care (01) | DRG 291 ==
LOC: ED 14:22 → ICU 16:16 → PCU 07-01 16:35
PROVIDERS: Internal Medicine; Admitting Provider Internal Medicine; Emergency Provider Emergency Medicine; PCP Family Medicine; Visit Provider Hospitalist
DX: I11.0 Hypertensive heart disease with heart failure (principal); J81.0 Acute pulmonary edema; J96.01 Acute respiratory failure with hypoxia; I50.33 Acute on chronic diastolic (congestive) heart failure; I16.1 Hypertensive emergency; E87.1 Hypo-osmolality and hyponatremia; I27.20 Pulmonary hypertension, unspecified; J44.9 Chronic obstructive pulmonary disease, unspecified; I70.1 Atherosclerosis of renal artery; I34.0 Nonrheumatic mitral (valve) insufficiency; K21.9 Gastro-esophageal reflux disease without esophagitis; F17.200 Nicotine dependence, unspecified, uncomplicated; M81.0 Age-related osteoporosis without current pathological fracture; R73.9 Hyperglycemia, unspecified; Z87.11 Personal history of peptic ulcer disease; Z87.19 Personal history of other diseases of the digestive system; Z79.899 Other long term (current) drug therapy
CPT/HCPCS: 36415; 71045; 80048; 80053; 81001; 81050; 82530; 83036; 83735; 83880; 84100; 85025; 85027; 87631; 93005; 93308; 93970; 94002; 94003; 94640; 94668; 94762; 97802; 97803; 99284; A4216; J1938

== ENCOUNTER → 2025-07-21 | Outpatient (CLI) | payer MEDICARE, OTHER, SELFPAY ==
[2025-07-21 14:28] LABS: Albumin, Serum 3.8 g/dL (3.4-4.8); Anion Gap 14 (5-15); BUN 22 mg/dL (4-19); BUN/Creat Ratio 16.5 RATIO (10-20); Calcium,Total 9.1 mg/dL (7.6-11.0); Carbon Dioxide 24.7 mmol/L (21.0-32.0); Chloride 95 mmol/L (98-108); Glucose 113 mg/dL (70-99); Potassium 3.0 mmol/L (3.3-5.1)
== END | disposition home or self-care (01) ==
LOC: LAB 12:49
PROVIDERS: PCP Family Medicine; Referring Provider Internal Medicine Nephrology; Visit Provider Internal Medicine Nephrology
DX: N18.31 Chronic kidney disease, stage 3a (principal)
CPT/HCPCS: 36415; 80069

== ENCOUNTER 2025-08-05 13:30 | Outpatient (RCR) | payer MEDICARE, OTHER, SELFPAY ==
--- NOTE | 2025-06-14 15:02 | HP.PTEVAL ---
Patient's Visit Information Visit Information Visit Information: ALVARADO COHEN is a 79 year old F referred to Physical Therapy by Dr. Tiffanie Govea DO with a diagnosis of Generalized weakness. Date of Evaluation: 06/14/25 Physical Therapist: Kit Renteria DPT Visit Plan Frequency: 2x /Week Duration: 4 Weeks Plan: 1) BLE strengthening 2) progressive functional strengthening 3) gait endurance HEP at IE: sit to stand, heel raises, hip abd standing Subjective Subjective: Pt. is here today for her initial evaluation diagnosis of generalized weakness. Pt. went into the hospital ~2 weeks ago with hyponatremia. Pt. reports retaining large amounts of water. Pt. reports being 10lbs heavier since being in the hospital. Pt. is now taking a Lasix for this. Pt. reports overall feeling like she is able to do more, but is having trouble with breathing and fatigue. Pt. is sleeping well. She has to sleep sitting up due to her breathing. Pt. reports no falls. Pt. is overall doing well. Pt. does live by her self. Pt. was totally independent prior to going into the hospital. Pt. did have some issues with walking prior to going into the hospital. She reports they were looking at vascular issues vs back issues. Pt. does have a walker but does not use. She lives alone and typically si fully I. Objective Objective: POSTURE: Pt. normal stance. No lateral shift noted. PALPATION: Pt. has marked pitting edema in extremities x4, LEs worse than Ues. NEURO: Pt. has normal sensation in BLEs. Pt. has normal DTR in BLEs. Pt. is able to rise on heels and toes without issues. ROM: Pt. has normal ROM throughout BLEs. MMT: LLE: knee: ext 30.4#, flex 21.1#; hip: flex 16.0# RLE: kneel: ext 31.5#, flex 22.0#; hip: flex 19.6# GAIT: Pt. has slight decreased step length bilaterally. Pt. has marked levels of fatigue and difficulty breathing with walking 150'+. STAIRS: 2HR with reciprocal pattern, marked functional weakness. Balance/Special Test Scores Lower Extremity Functional Score: 33 TUG Test Time Seconds: 13.8 30 Second Chair Rise Test Seconds: 7 Goals Goal 1:: LTG: pt. to be I with HEP for LE strengthening and progressive walking program. Goal Time Frame: 4-6 Weeks Goal 2:: LTG: pt. to complete 30sec sit to stand test with at least 13 reps Goal Time Frame: 4-6 Weeks Goal 3:: LTG: Pt. to complete TUG with time less than 10seconds. Goal Time Frame: 4-6 Weeks Goal 4:: LTG: Pt. to complete 6 MWT with distance of 900' indicating increased overall endurance. Goal Time Frame: 4-6 Weeks Goal 5:: LTG: Pt. to negotiate 1 flight of stairs with 1 HR with reciprocal pattern and no issues. Goal Time Frame: 4-6 Weeks Rehabilitation Potential Physical Therapy Diagnosis: Pt. has signs and symptoms consistent with generalized weakness after having hospital stay with hyponatremia. pt. is having some difficulty with gait, breathing, LE strength and functional mobility. She would benefit from PT to address the above limitations. Rehabilitation Potential: Good Anticipated Interventions Patient/Client Instruction: Educate patient on: Condition, Plan of Care, Risk Factors and Benefits of Fitness Program For the Purpose of:: To facilitate caregiver knowledge, To improve self management, To prevent re-injury, To improve ability to perform tasks related to life management and To improve tolerance to ADL's Therapeutic Exercise to Include: Strength training, Power training, Balance training, Flexibilty training and Gait and locomotor training For the Purpose of:: To decrease swelling/inflammation, To improve nutrient delivery to tissue, To increase oxygenation perfusion, To improve muscle performance and motor function, To improve ability to perform ADL's, To improve health of tissue, To decrease soft tissue restriction, To increase flexibility/ROM and To improve endurance Text: Thank you for the opportunity to evaluate your patient. For Medicare and Medicare HMO plans, please review the plan of care and approve it. It will need to be FAXED BACK to us at [phone] for Medicare purposes. For Medicare only, by signing this I certify the plan of care. Please let me know if there are questions or concerns regarding this plan of care. Physician Signature: Date:
--- NOTE | 2025-06-22 15:57 | HP.OTEVAL_ITS ---
Patient's Visit Information Visit Information Visit Information: ALVARADO COHEN is a 80 year old F, referred to Occupational Therapy by Dr. Tiffanie Govea DO, with a diagnosis of WEAKNESS. Date of Evaluation: 06/22/25 Occupational Therapist: Natasha Henderson Subjective Subjective: Pt had a recent hospitalization at the end of May into the first week of June; d/t SOB; pt presents for evaluation d/t decreased activity tolerance, pt has been able to complete self-care with rest breaks; pt has not driven since hospitalization, but did drive prior; pt typically ambulates community distances without adaptive device and does not have a fall history; currently, pt is fatiguing more quickly than normal, still gets short of break with minimal activity; and continues to have uncontrolled BP and edema ADLs Comments: Alone; 1 story home, 1 +1 entry steps without handrail; pt does not typically use any AD for ambulation but does have a w/w if needed; pt remains independent all ADLs; pt able to walk to/from mailbox at home; flight of steps to the basement where pt cares for her cat 1x daily with use of unilateral handrail on basement steps; pt has a t/s and a walk-in shower; pt has been sitting on built-in seat in shower; pt has been able to manage with increased time and rest breaks; pt hires cleaning and has been able to do light cooking; pt has a good support system of friends/family able to assist as needed Objective Objective/Observation: Pt does fatigue with several sanding rest breaks on the walk from the waiting room to the OT room; this is not typical for pt ROM ROM Comments: Pt demo's full AROM in all UE movements - no limitations Strength Shoulder: Flexion R 18 L 20 Extension R 24 L 26 Elbow: Flexion R 26 L 26 Extension R 20 L 20 Exercise Teacher: R 45 L 40 Lateral Pinch: R 4 L 3 Tripod Pinch: R 3 L 1 Strength Comments: Pt demonstrates functional UE strength, but has decreased endurance with activity noted throughout evaluation Edema Other: Noted moderate edema in L hand and "all over" according to pt, LE most Quick DASH-Disab of Arm,Shoulder& Hand Quick DASH Score: 20.0000 Goals Goal:: Client will demonstrate understanding of energy conservation techniques (pacing, prioritizing tasks, taking breaks) by verbally identifying at least 3 strategies and applying them during 2 chosen ADL tasks with < 2 instances of reported fatigue or shortness of breath. Goal:: Client will increase uninterrupted standing tolerance to 6 minutes, while maintaining a safe and stable posture, during a chosen functional standing activity, without SOB or fatigue. Goal:: Client will utilize diaphragmatic breathing techniques to manage breathing during functional activities (e.g., walking 50 feet) 3 times with < 1 instance of shortness of breath. Rehabilitation General Assessment: Decreased endurance and functional mobility tolerance Rehabilitation Potential: Good Anticipated Interventions Anticipated Interventions: Strengthening, ADL Training and Home Program Other Interventions: Increase activity tolerance/endurance Visit Plan Frequency: 1-2x /Week Duration: 2 Months General Plan: Increase activity tolerance/endurance/standing tolerance for increased safety and participation with ADLs and iADLs at home. TEXT: Thank you for the opportunity to evaluate your patient. For Medicare and Medicare HMO plans, please review the plan of care and approve it. It will need to be FAXED BACK to us at [phone] for Medicare purposes. Please let me know if there are questions or concerns regarding this plan of care. Physician Signature: Date:
--- NOTE | 2025-08-05 13:49 | HP.OTDCSUM_ITS ---
Discharge Summary D/C Summary: It has been my pleasure to treat ALVARADO COHEN under orders from Dr. Tiffanie Govea DO, for the diagnosis of WEAKNESS for a total of 2 visit(s). Please see the following information for a summary of their discharge status. 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 40# able to stand for 10+ minutes this date able to demo PLB no cue needed understands EC techniques reast breaks when needed Goals Patient Goals: Regain Mobility, Regain Strength, Decrease Swelling/Stiffness, Be More Independent in ADLS, Resume Former Household Responsibilities (Cooking,Cleaning,Yard, etc.) and Resume Hobbies Goal:: Client will demonstrate understanding of energy conservation techniques (pacing, prioritizing tasks, taking breaks) by verbally identifying at least 3 strategies and applying them during 2 chosen ADL tasks with < 2 instances of reported fatigue or shortness of breath. Goal:: Client will increase uninterrupted standing tolerance to 6 minutes, while maintaining a safe and stable posture, during a chosen functional standing activity, without SOB or fatigue. Goal:: Client will utilize diaphragmatic breathing techniques to manage breathing during functional activities (e.g., walking 50 feet) 3 times with < 1 instance of shortness of breath. Plan Plan: discharge D/C Information Discharge Comments: This 80 year old female seen by OT due to weakness. Delay in treatment due to pt back to hospital. pt seen once and is doing much better in terms of breathing as well as upper body strength. pt has achieved all goals at this time discharge from OT. pt in agreeance. d/c sentence: If there are questions or concerns regarding this patient's occupational therapy, please fell free to call me at [phone]. Thank you for the referral of this patient. Sincerely, Ada Palmer
== END 2025-08-05 19:00 | disposition home or self-care (01) ==
LOC: OT 13:30
PROVIDERS: PCP Family Medicine; Referring Provider Internal Medicine; Visit Provider Internal Medicine
DX: K92.2 Gastrointestinal hemorrhage, unspecified (principal); R53.1 Weakness
CPT/HCPCS: 97110; 97161; 97165; 97530

== ENCOUNTER → 2025-08-13 | Outpatient (CLI) | payer MEDICARE, OTHER, SELFPAY ==
[2025-08-13 12:28] LABS: Anion Gap 12 (5-15); BUN 31 mg/dL (4-19); BUN/Creat Ratio 24.4 RATIO (10-20); Calcium,Total 9.7 mg/dL (7.6-11.0); Carbon Dioxide 25.3 mmol/L (21.0-32.0); Chloride 97 mmol/L (98-108); Glucose 99 mg/dL (70-99); Potassium 4.6 mmol/L (3.3-5.1)
== END | disposition home or self-care (01) ==
PROVIDERS: PCP Family Medicine; Referring Provider Internal Medicine Nephrology; Visit Provider Internal Medicine Nephrology
DX: E87.1 Hypo-osmolality and hyponatremia (principal)
CPT/HCPCS: 36415; 80048

== ENCOUNTER → 2025-11-02 | Outpatient (CLI) | payer MEDICARE, OTHER, SELFPAY ==
[2025-11-02 13:26] LABS: Albumin, Serum 4.3 g/dL (3.4-4.8); Anion Gap 12 (7-18); BUN 28 mg/dL (4-19); BUN/Creat Ratio 20.9 RATIO (10-20); Calcium,Total 9.4 mg/dL (7.6-11.0); Carbon Dioxide 24.2 mmol/L (20.0-29.0); Chloride 97 mmol/L (96-106); Glucose 97 mg/dL (70-99); Potassium 3.6 mmol/L (3.5-5.1)
== END | disposition home or self-care (01) ==
LOC: LAB 12:18
PROVIDERS: Referring Provider Internal Medicine Nephrology; Visit Provider Internal Medicine Nephrology
DX: N18.31 Chronic kidney disease, stage 3a (principal)
CPT/HCPCS: 36415; 80069